=== PATIENT | male | born 1950 | race Caucasian/White ===

== ENCOUNTER 2024-02-15 16:26 | Observation (INO) | payer MEDICARE, SELFPAY ==
[2024-02-15] VITALS (8 sets, daily range): BP systolic 119–138; BP diastolic 56–76; PULSE 70–110; RESP 12–28; TEMP 36.7–36.9; O2SAT 94–100
--- NOTE | ~2024-02-15 | CT_ITS ---
EXAMINATION: CT abdomen pelvis w con DATE: 02/15/2024 20:53 INDICATION: Lower gastrointestinal hemorrhage. TECHNIQUE: Computed tomography (CT) of the abdomen and pelvis was performed with 100 mL Omnipaque 350 intravenous contrast. Automated exposure control and iterative reconstruction technique were employe d. The dose-length product was 1673.99 mGy-cm. COMPARISON: None. FINDINGS: The visualized portions of the lung bases demonstrate mild atelectasis. No pleural effusion . The heart size is normal. No pericardial effusion. There are coronary artery calcifications. There is a small sliding hiatal hernia. Calcifications in the liver and spleen are consistent with old gran ulomatous disease. There are changes of cholecystectomy. The pancreas and adrenal glands are normal. There are cysts in the kidneys measuring up to 7.1 cm on the right. There are changes of ventral frank ia repair. There are no dilated loops of bowel. There is wall thickening of the rectum with intralumi nal contrast. There are prominent blood vessels around the rectum. The appendix is normal. There is a 3.0 x 1.8 cm cyst in the area of the right external iliac ignacia chain. There is trace pelvic ascites . There are changes of anterior and posterior fusion procedures from L4 to S1. There is moderate lumb ar spondylosis. A bone stimulator is noted. IMPRESSION: 1. Proctitis with bleeding internal hemorrhoids. 2. 3.0 x 1.8 cm cyst in the area of the right external iliac lymph node chain. The differential diagn osis includes hematoma, thrombosed aneurysm, and venous malformation. Reviewed, dictated and finalized at location E. IMPRESSION: 1. Proctitis with bleeding internal hemorrhoids. 2. 3.0 x 1.8 cm cyst in the area of the right external iliac lymph node chain. The differential diagnosis includes hematoma, thrombosed aneurysm, and venous m alformation.
--- NOTE | ~2024-02-15 | XR_ITS ---
EXAMINATION: XR chest 2V DATE: 02/15/2024 18:48 INDICATION: Shortness of breath. TECHNIQUE: Frontal and lateral views of the chest were obtained. COMPARISON: None. FINDINGS: Calcified pulmonary nodules and calcified hilar lymph nodes are consistent with old granulo matous disease. There is mild atelectasis in left lower lung zone. No pleural effusion or pneumothora x. The heart size is normal. There are surgical clips in the abdomen. An electronic device overlies t he lower back. IMPRESSION: 1. Mild atelectasis in left lower lung zone. Reviewed, dictated and finalized at location E.
--- NOTE | 2024-02-15 18:20 | ED.RECABL ---
HPI - Recheck/Abnormal Lab/Rx General Chief Complaint: Recheck/Abnormal Lab/Rx <AMARILIS Mayers Last Filed: 02/15/24 18:33> Stated Complaint: ABD LABS. low H&H <AMARILIS Mayers Last Filed: 02/15/24 18:33> Time Seen by Provider: 02/15/24 18:20 <AMARILIS Mayers Last Filed: 02/15/24 18:33> Focused HPI: Patient is a 74 y/o male, with PMH of DVT on Warfarin, who presents to the ED with c/o abnormal labs. Patient reports over the past 2-3 weeks, he has been feeling increasingly weak and short of breath with exertion, intermittent chest tightness. 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 Referred to the ED for further evaluation. Patient reports hx of proctitis and states he has had bright red blood in his stool for past few months. Had a colonoscopy 1 month ago which did not show any masses. Patient also reports hx of urethral dilation [address] Tomas. States he had microscopic blood in his urine at that time. Denies gross hematuria. Denies significant dizziness/lightheadedness, fevers, epistaxis, abd pain, N/V. Patient denies known hx of anemia. Has never required blood transfusions in the past. GENERAL: Pale-appearing, obese with BMI 37.4, and in no acute distress. HEAD: Normocephalic, atraumatic. CHEST: Clear to auscultation. ?No respiratory distress. HEART: Regular rate and rhythm.? NEURO: ?Alert and oriented x3. Patient screened in triage and initial orders placed.? ?Additional care and disposition to be based upon?diagnostic testing and treatment. <AMARILIS Mayers Last Filed: 02/15/24 18:33> Source: patient <AMARILIS Mayers Last Filed: 02/15/24 18:33> Mode of arrival: ambulatory <AMARILIS Mayers Last Filed: 02/15/24 18:33> Limitations: no limitations <AMARILIS Mayers Last Filed: 02/15/24 18:33> Related Data Allergies/Adverse Reactions: Allergies Allergy/AdvReac Type Severity Reaction Status Date / Time amoxicillin Allergy Anaphylactic Verified 02/15/24 16:33 Shock dapagliflozin [From Farxiga] Allergy Rash Verified 02/15/24 16:33 pregabalin [From Lyrica] AdvReac Other Verified 02/15/24 16:33 <AMARILIS Mayers Last Filed: 02/15/24 18:33> Review of Systems Review of Systems: CONST: Fatigue HEENT: No sore throat C/V: Chest tightness with exertion RESP: Shortness of breath with exertion GI: Blood in stool : No dysuria. M/S: No joint pain. SKIN: No rash. NEURO: Lightheadedness PSYCH: [No depression] <Andreia Lima MD - Last Filed: 02/16/24 07:24> Exam Narrative: EXAMINATION OF ORGAN SYSTEMS/BODY AREAS: Constitutional: Vital signs per nursing GENERAL:[No acute distress, non-toxic appearing.] HEAD: Normal with no signs of head trauma. EYES: EOMI, conjunctiva normal ENT: Hearing grossly intact LUNGS: Nonlabored breathing. HEART: Slightly tachycardic ABD: [Soft], [nontender to palpation]; grossly brown stool that is Hemoccult positive EXT: Normal range of motion SKIN: Pale NEURO: [Alert and oriented x 3. No gross focal sensory or strength deficits.] PSYCH: Normal affect <Andreia Lima MD - Last Filed: 02/16/24 07:24> Course Vital Signs Vital signs: Vital Signs Temperature 98.3 F 02/15/24 16:31 Pulse Rate 110 H 02/15/24 16:31 Respiratory Rate 16 02/15/24 16:31 Blood Pressure 126/56 L 02/15/24 16:31 Pulse Oximetry 100 02/15/24 16:31 Temperature 98.1 F 02/16/24 06:54 Pulse Rate 66 02/16/24 06:54 Respiratory Rate 16 02/16/24 06:54 Blood Pressure 130/77 02/16/24 06:54 Pulse Oximetry 100 02/16/24 06:54 <AMARILIS Mayers Last Filed: 02/15/24 18:33> Vital Signs Temperature 98.3 F 02/15/24 16:31 Pulse Rate 110 H 02/15/24 16:31 Respiratory Rate 16 02/15/24 16:31 Blood Pressure 126/56 L 02/15/24 16:31 Pulse Oximet
--- NOTE | 2024-02-15 18:21 | ECG_ITS ---
SEE SCANNED COPY FOR CONFIRMED REPORT MTDD
[2024-02-15 18:44] LABS: Basophils Absolute Auto 0.1 K/mm3 (0.0-0.1); Basophils Percent Auto 1.1 % (0.2-1.2); Eosinophils Absolute Auto 0.2 K/mm3 (0-0.3); Eosinophils Percent Auto 5.3 % (0-4.4); Immature Granulocyte Absolute 0.02 K/mm3 (0.00-0.031); Immature Granulocyte Percent A 0.4 % (0-0.5); Lymphocytes Absolute Auto 1.17 K/mm3 (0.9-3.2); Lymphocytes Percent Auto 25.7 % (18.3-44.2); Mean Corpuscular HGB Conc 28.3 g/dl (32-36); Mean Corpuscular Hemoglobin 24.2 pg (26-34); Mean Corpuscular Volume 85.6 fl (80-100); Mean Platelet Volume 8.8 fl (7.4-10.4); Monocytes Absolute Auto 0.7 K/mm3 (0.1-0.6); Monocytes Percent Auto 14.3 % (2.6-8.5); Neutrophils Absolute Auto 2.4 K/mm3 (1.3-6.7); Neutrophils Percent Auto 53.2 % (45.5-73.1); Nucleated Red Blood Cells Perc 0.7 % (0.0-0.2); Platelet Count Result 327 k/mm3 (150-375); Red Blood Count 2.15 M/mm3 (4.6-6.20); Red Cell Distribution Width 16.6 % (11.5-14.5); White Blood Count 4.6 K/mm3 (4.5-10.0)
[2024-02-15 18:56] LABS: Alanine Aminotransferase 14 U/L (6-50); Alkaline Phosphatase 64 U/L (38-126); Anion Gap 6 mmol/L (4-12); Aspartate Amino Transferase 22 U/L (17-59); Bilirubin,Total 0.3 mg/dL (0.2-1.3); Blood Urea Nitrogen 16 mg/dL (9-20); Carbon Dioxide 24 mmol/L (22-30); Chloride 107 mmol/L (98-107); Estimated CRCL calculation 53 ml/min; Estimated Glomerular Filt Rate 46; Glucose 102 mg/dL (65-110); Potassium 4.2 mmol/L (3.4-5.0); Sodium 137 mmol/L (137-145)
[2024-02-15 19:01] LABS: Prothrombin Time 23.8 Seconds (11.1-14.7)
[2024-02-15 19:02] LABS: Hemoglobin 5.2 g/dL (14.0-18.0); Partial Thromboplastin Time 35.4 Seconds (22.3-36.8)
[2024-02-15 19:03] LABS: Hematocrit 18.4 % (42.0-52.0)
[2024-02-15 19:08] LABS: NT Pro B Type Natriuretic Pept 281 pg/mL (19.9-100); Troponin I < 0.012 ng/mL (0.000-0.034)
[2024-02-15 19:09] LABS: Platelet Estimate Adequate (Adequate); Schistocytes None Seen
[2024-02-15 19:10] LABS: Anisocytosis 2+; Hypochromasia 2+
[2024-02-15 20:02] LABS: Immature Reticulocyte Fraction 23.9 % (3.0-15.9); Reticulocyte Percent 3.17 % (0.7-4.3); Reticulocytes Absolute 0.07 10^6/uL (0.02-0.10)
[2024-02-15 21:06] LABS: Lactate Dehydrogenase 197 U/L (120-246)
[2024-02-15 21:14] LABS: Transferrin 287 mg/dL (206-381)
[2024-02-15 21:24] LABS: Iron 30 ug/dL (49-181)
[2024-02-15] MEDS: SODIUM CHLORIDE 0.9% IV 250 ML 30 ML IV CONT (21:27)
[2024-02-15 21:34] LABS: Percent Iron Saturation 8 % (20-50)
[2024-02-15 22:00] LABS: Ferritin 5.26 ng/mL (11.1-264)
[2024-02-15] MEDS: TUBING, BLOOD PLUM PUMP TUBING 1 EACH XX ×2 (22:02→23:42)
[2024-02-15 22:14] LABS: Folic Acid 7.4 ng/mL (2.76->20)
--- NOTE | 2024-02-15 23:42 | PC.NURSE ---
assumed care of pt from sonu rich at this time. second bag of blood transfusion started at this time. pt resting comfortably in bed at this time.
[2024-02-16] VITALS (18 sets, daily range): BP systolic 110–147; BP diastolic 61–77; PULSE 57–93; RESP 13–22; TEMP 35.6–36.8; O2SAT 95–100; BMI 37.5
[2024-02-16] MEDS: PANTOPRAZOLE SODIUM IV 40 MG VIAL IV PUSH ×2 (00:03→21:10)
--- NOTE | 2024-02-16 03:56 | ED.RECABL ---
HPI - Recheck/Abnormal Lab/Rx General Chief Complaint: Recheck/Abnormal Lab/Rx Stated Complaint: ABD LABS. low H&H Time Seen by Provider: 02/15/24 18:20 Source: patient Mode of arrival: ambulatory Limitations: no limitations History of Present Illness HPI narrative: Patient has noticed some blood in his stools on and off for the last year, constipate was done about a month ago which showed some proctitis and bleeding hemorrhoids, 2 weeks ago he started having increased shortness of breath especially with exertion and generalized weakness and his doctor ordered some blood work and told him to go to the hospital for transfusion. Related Data Allergies Allergy/AdvReac Type Severity Reaction Status Date / Time amoxicillin Allergy Anaphylactic Verified 02/15/24 16:33 Shock dapagliflozin [From Farxiga] Allergy Rash Verified 02/15/24 16:33 pregabalin [From Lyrica] AdvReac Other Verified 02/15/24 16:33 Review of Systems Review of Systems: CONST: No fever. HEENT: No sore throat C/V: No chest pain RESP: No cough GI: Reports abdominal pain, nausea, vomiting[, diarrhea] : No dysuria. M/S: No joint pain. SKIN: No rash. NEURO: [No headache or focal numbness or weakness] PSYCH: [No depression] Course Vital Signs Vital signs: Vital Signs Temperature 98.3 F 02/15/24 16:31 Pulse Rate 110 H 02/15/24 16:31 Respiratory Rate 16 02/15/24 16:31 Blood Pressure 126/56 L 02/15/24 16:31 Pulse Oximetry 100 02/15/24 16:31 Temperature 98.1 F 02/16/24 01:20 Pulse Rate 68 02/16/24 01:20 Respiratory Rate 14 02/16/24 01:20 Blood Pressure 116/73 02/16/24 01:20 Pulse Oximetry 100 02/16/24 01:20 MDM - Recheck/Abnormal Lab/Rx Lab Data 02/15/24 18:36 02/15/24 18:36 Labs: Lab Results 02/15/24 02/15/24 02/15/24 Range/Units 18:36 18:36 18:36 WBC 4.6 (4.5-10.0) K/mm3 RBC 2.15 L (4.6-6.20) M/mm3 Hgb 5.2 L* (14.0-18.0) g/dL Hct 18.4 L* (42.0-52.0) % MCV 85.6 (80-100) fl MCH 24.2 L (26-34) pg MCHC 28.3 L (32-36) g/dl RDW 16.6 H (11.5-14.5) % Plt Count 327 (150-375) k/mm3 MPV 8.8 (7.4-10.4) fl Immature Gran % (Auto) 0.4 (0-0.5) % Neut % (Auto) 53.2 (45.5-73.1) % Lymph % (Auto) 25.7 (18.3-44.2) % Shannon % (Auto) 14.3 H (2.6-8.5) % Eos % (Auto) 5.3 H (0-4.4) % Baso % (Auto) 1.1 (0.2-1.2) % Lymph # (Auto) 1.17 (0.9-3.2) K/mm3 Shannon # (Auto) 0.7 H (0.1-0.6) K/mm3 Eos # (Auto) 0.2 (0-0.3) K/mm3 Baso # (Auto) 0.1 (0.0-0.1) K/mm3 Abs Immat Gran (auto) 0.02 (0.00-0.031) K/mm3 Absolute Neuts (auto) 2.4 (1.3-6.7) K/mm3 Absolute Nucleated RBC 0.030 H (0.0-0.012) K/mm3 Nucleated RBC % 0.7 H (0.0-0.2) % Platelet Estimate Adequate (Adequate) Hypochromasia 2+ Anisocytosis 2+ Schistocytes None seen Absolute Retic (0.02-0.10) 10^6/uL Percent Retic (0.7-4.3) % Immature Retic Fraction (3.0-15.9) % Retic Hgb Content (28.2-36.6) pg Haptoglobin PT 23.8 H (11.1-14.7) Seconds INR 2.0 APTT 35.4 (22.3-36.8) Seconds Sodium Cancelled 137 Potassium Cancelled 4.2 Chloride Cancelled Carbon Dioxide Anion Gap BUN Creatinine Estim Creat Clear Calc Estimated GFR Glucose Calcium Iron (49-181) ug/dL TIBC (265-497) ug/dL % Saturation (20-50) % Transferrin (206-381) mg/dL Ferritin (11.1-264) ng/mL Total Bilirubin AST ALT Alkaline Phosphatase Lactate Dehydrogenase (120-246) U/L Troponin I (0.000-0.034) ng/mL NT-Pro-B Natriuret Pep (19.9-100) pg/mL Total Protein Albumin Vitamin B12 (239-931) pg/mL Folate (2.76->20) ng/mL TSH (Reflex) (0.465-4.68) uIU/mL Blood Type Antibody Screen RAMA, IgG Interpret RAMA, Poly Interpret RAMA, Complement Interp Cross
[2024-02-16 04:14] LABS: Hematocrit 21.9 % (42.0-52.0)
[2024-02-16 04:16] LABS: Hemoglobin 6.7 g/dL (14.0-18.0)
[2024-02-16] MEDS: SODIUM CHLORIDE 0.9% IV 250 ML 30 ML IV CONT (05:36)
[2024-02-16] MEDS: TUBING, BLOOD SET 1 EACH XX (05:36)
--- NOTE | 2024-02-16 07:12 | PC.NURSE ---
report given to WILBER Gray at this time. pt resting comfortably in bed w call light within reach.
--- NOTE | 2024-02-16 08:45 | PC.NURSE ---
This patient, Marshall Olson, was admitted to [facility] Surg Room 314-01. Patient/family oriented to hospital policies and general routines including ID bracelet, bed and alarms, visiting hours, pain management, procedures, bathroom and other care routines, personal items, smoking policy, room service/diet, and visiting hours. Information on how to activate the Rapid Response Team has been discussed. Patient/Family are encouraged to report perceived risks to care and to ask questions if they do not understand what they are told or what they should do.
--- NOTE | 2024-02-16 09:16 | P.CONGI_ITS ---
I, Saw Aparicio MD, have provided a substantive portion of the care of this patient and discussed the patient with my Nurse Practitioner. I have reviewed any new relevant radiographic and laboratory results including medications. I agree with her documentation as noted below.?I personally performed the medical decision making and much of the history and exam for this encounter. briefly he had prostate cancer s/p radiation therapy, also DVT on coumadin for years. About 1 month ago at [place] had colonoscopy and found to have radiation proctitis (patient could not tell me if treated with APC), he was sent home with mesalamine. Just recently his high speed warper tender obtained blood work that showed severe anemia and admitted, given transfusion and better now. INR 2 because of coumadin, he has intermittent blood in stools, brbpr. Plan is to monitor for more signs of bleeding, no need to repeat scope right now but I recommend to follow up with his GI doctor and discuss if he may benefit from sigmoidoscopy with APC to treat proctitis- ideally his INR will need to be below 1.7. Assessment and Plan Assessment and plan (1) Abnormal digestive system diagnostic imaging: Code(s): R93.3 - Abnormal findings on diagnostic imaging of other parts of digestive tract Status: Acute (2) Iron deficiency anemia: Qualifiers: Iron deficiency anemia type: unspecified iron deficiency Qualified Code(s): D50.9 - Iron deficiency anemia, unspecified Code(s): D50.9 - Iron deficiency anemia, unspecified Status: Acute (3) Radiation proctitis: Code(s): K62.7 - Radiation proctitis Status: Acute (4) Hematochezia: Code(s): K92.1 - Melena Status: Acute Plan 1) Abnormal imaging digestive/radiation proctitis / diarrhea /hematochezia: Last colonoscopy approximately 1 month ago performed in [place] which time he was diagnosed with radiation proctitis and started on sulfasalazine 500 mg t.i.d. which he has been taking for less than a month but has noticed no improvement of symptoms. Family history negative for CRC or IBD. Prior to admission patient was on warfarin and aspirin 81 mg For history of DVT. For the past few months the patient has been experiencing diarrhea with 2-3 bowel movements daily that vary from formed to liquid. Admits to painless rectal bleeding 2-3 times a week. last BM this morning he states contain blood. Per patient he had what sounds like a partial prostatectomy in 2013 an than 2 years ago was noted to have rising PSA levels and underwent radiation treatment. * Mesalamine enema ordered * No indication for endoscopic evaluation at this time * Patient to follow up with primary preparing box tender in [place] as outpatient 2) Iron deficiency anemia: Likely secondary to acute blood loss. On admission HGB 5. Iron panel showed total iron 30, TIBC 367, iron saturation 8%, ferritin 5, B12 224, and normal folate. INR 2.0. Prior to admission patient was on warfarin and aspirin 81 mg daily. Patient has received 3 units of PRBCs and labs today show HGB 7, HCT 22, MCV 86, platelets 327. * Primary care team to continue to monitoring H&H and transfuse as needed to keep HGB >7 GI Consult Note Consult date/time: 02/16/24 09:16 Reason for consult: LGIB. proctitis and hemorrhoids HPI: Marshall Olson is a 74 year old male with a history of DVT on warfarin who presented to the emergency room for abnormal outpatient labs. GI consulted for lower GI bleed, proctitis, and internal hemorrhoids. Patient had outpatient lab work ordered by his high speed warper tender and was contacted by his PCP to advise him that he was
--- NOTE | 2024-02-16 09:16 | WPDGICN ---
Assessment and Plan Assessment and plan (1) Abnormal digestive system diagnostic imaging: Code(s): R93.3 - Abnormal findings on diagnostic imaging of other parts of digestive tract Status: Acute (2) Iron deficiency anemia: Qualifiers: Iron deficiency anemia type: unspecified iron deficiency Qualified Code(s): D50.9 - Iron deficiency anemia, unspecified Code(s): D50.9 - Iron deficiency anemia, unspecified Status: Acute (3) Radiation proctitis: Code(s): K62.7 - Radiation proctitis Status: Acute (4) Hematochezia: Code(s): K92.1 - Melena Status: Acute Plan 1) Abnormal imaging digestive/radiation proctitis / diarrhea /hematochezia: Last colonoscopy approximately 1 month ago performed in [place] which time he was diagnosed with radiation proctitis and started on sulfasalazine 500 mg t.i.d. which he has been taking for less than a month but has noticed no improvement of symptoms. Family history negative for CRC or IBD. Prior to admission patient was on warfarin and aspirin 81 mg For history of DVT. For the past few months the patient has been experiencing diarrhea with 2-3 bowel movements daily that vary from formed to liquid. Admits to painless rectal bleeding 2-3 times a week. last BM this morning he states contain blood. Per patient he had what sounds like a partial prostatectomy in 2012 an than 2 years ago was noted to have rising PSA levels and underwent radiation treatment. Mesalamine enema ordered No indication for endoscopic evaluation at this time Patient to follow up with primary title i coordinator in [place] as outpatient 2) Iron deficiency anemia: Likely secondary to acute blood loss. On admission HGB 5. Iron panel showed total iron 30, TIBC 367, iron saturation 8%, ferritin 5, B12 224, and normal folate. INR 2.0. Prior to admission patient was on warfarin and aspirin 81 mg daily. Patient has received 3 units of PRBCs and labs today show HGB 7, HCT 22, MCV 86, platelets 327. Primary care team to continue to monitoring H&H and transfuse as needed to keep HGB >7 GI Consult Note Consult date/time: 02/16/24 09:16 Reason for consult: LGIB. proctitis and hemorrhoids HPI: Marshall Olson is a 74 year old male with a history of DVT on warfarin who presented to the emergency room for abnormal outpatient labs. GI consulted for lower GI bleed, proctitis, and internal hemorrhoids. Patient had outpatient lab work ordered by his distribution technician and was contacted by his PCP to advise him that he was severely anemic and was advised to proceed to the emergency room for evaluation.On admission patient was found to be severely anemic with Hgb 5. Patient has received 3 units PRBCs and labs today show H&H 05/23. Patient had a colonoscopy performed approximately a month ago in [place] and was diagnosed with radiation proctitis and started on sulfasalazine 500 mg t.i.d. which he has been taking for less than a month and has noticed no improvement of symptoms. A few weeks ago the patient had a urethral dilation and states that his warfarin was held prior to that procedure. he was taking warfarin and aspirin prior to admission. The patient admits to intermittent reflux in the evening but states that is well controlled with p.r.n. Tums. He has been experiencing diarrhea for the past few months and states that he is having 2-3 loose to liquid bowel movements per day that are not urgent. To 3 times a week is having painless bright red rectal bleeding. Last BM was this morning and patient admits to blood in the stool. He denies abdominal pain, nausea, vomiting, bloating, odynophagia, dysphagia, regurgitation, early satiety, unexplained weight loss, appetite loss, constipation, or melena. ENDOSCOPY HISTORY: EGD: The patient has never had an EGD COLONOSCOPY: Last colonoscopy performed in [place] approximately 1 m
--- NOTE | 2024-02-16 14:11 | PM.IMHP ---
H&P: HPI History of Present Illness Date/Time: 02/16/24 14:11 Chief Complaint: Low Hgb Narrative: 74yo male with COPD, CAD, AFib s/p ablation and PE/DVT on chronic anticoagulation here for low Hgb. Patient also with prostate cancer treated with prostatectomy in 2012 with recurrence in 2021 requiring XRT and hormonal therapy. About 6mo ago, he began to have hematochezia with diarrhea and mucus. No stool incontinence. He did have a colonoscopy about 1 month ago which showed polyps which were removed, diverticulosis and radiation proctitis. He was started on sulfasalazine. He has been noted to be anemic. He is scheduled to see a solar energy systems designer in the next 1-2 weeks for this. He was on Eliquis in the past for veno thromboembolic disease but developed a pulmonary embolism on Eliquis so now is on warfarin. Patient was seen by his urologist a few weeks ago was found to have hematuria. He underwent cystoscopy but had urethral stricture requiring dilation. He is not sure there is any significant findings noted in the bladder. He denies any dysuria or hematuria at this time. Patient has been feeling weak over the past 2-3 weeks. He has been having headaches and shortness of breath with exertion. No abdominal pain or cough. No nausea or vomiting. He has had heartburn for the past week. Symptoms are worse at night and he takes Tums with benefit. He denies any chest pain initially but does state he does have some chest tightness on occasion. He was seen by his forensic engineer for the worsening weakness and SOB. Lab work was drawn which showed significant anemia. He was directed to go to the emergency room for evaluation. In the Emergency room, his pulse was 110. Blood pressure was normal. He was guaiac positive in ED. Hemoglobin was 5.2. Normal platelet count and white count. MCV was normal. Reticulocyte count was normal but have increased immature reticulocyte fraction of 24%. INR was 2.0. Creatinine was 1.5 but unclear on baseline. Iron was 30 with normal TIBC and TSAT of 8%. His ferritin was low at 5.3 consistent with iron deficiency. B12 level was low 224. Troponin x1 negative. TSH was normal. Folate was normal. Chest x-ray showed mild atelectasis in left lower lobe. CT of the abdomen and pelvis with contrast showed proctitis with bleeding internal hemorrhoids and a 3 cm cyst in the right external iliac lymph node chain with differential listed. EKG showed voltage criteria for LVH otherwise normal. Divina is negative. He was typed and crossed and transfused 3 units of packed red blood cells. GI was consulted. Patient was given Protonix in the emergency room. Rectal mesalamine was started. He was admitted for further care. Review of Systems Review of Systems: All systems reviewed & are unremarkable except as noted in HPI and below PMFSH Past Medical History Medical History (Updated 02/16/24 @ 19:21 by Rock Kaminski MD) Atrial fibrillation s/p ablation CAD (coronary artery disease) GA in 2019 but no stents CHF (congestive heart failure) COPD (chronic obstructive pulmonary disease) DVT (deep venous thrombosis) HTN (hypertension), benign Hyperlipidemia Peripheral neuropathy Prostate cancer Pulmonary embolism Failed Eliquis therapy Radiation proctitis Surgical History Surgical History (Updated 02/16/24 @ 19:15 by Rock Kaminski MD) Hx of cataract surgery Hx of cervical spine surgery Hx of cholecystectomy Hx of lumbosacral spine surgery Hx of prostatectomy Family History Family History (Updated 02/16/24 @ 19:16 by Rock Kaminski MD) Mother Breast cancer Father Pancreatic cancer Social History Social History (Updated 02/16/24 @ 19:17 by Rock Kaminski MD) Social History: Lives at home with his , GS and GD. Quit tobacco in 2019 after smoking up to 2ppd x 40yrs. No alcohol currently. Hx of charmaine abuse including cocaine, amphetamines, heroine and IVDU. Full code. Nominates his to be the
[2024-02-16 17:32] LABS: Hematocrit 25.1 % (42.0-52.0); Hemoglobin 7.8 g/dL (14.0-18.0)
[2024-02-16] MEDS: CYANOCOBALAMIN INJ 1,000 MCG/ML VIAL 1000 MCG IM (21:10)
[2024-02-16] MEDS: MESALAMINE ENEMA 4 GM/60 ML BOTTLE RECTAL (21:11)
[2024-02-16 23:32] LABS: Hematocrit 27.4 % (42.0-52.0); Hemoglobin 8.4 g/dL (14.0-18.0)
[2024-02-17 06:00] VITALS: BP 113/75; PULSE 65; RESP 20; TEMP 36.1; O2SAT 99
[2024-02-17 06:37] LABS: Basophils Absolute Auto 0.1 K/mm3 (0.0-0.1); Eosinophils Absolute Auto 0.4 K/mm3 (0-0.3); Hematocrit 26.2 % (42.0-52.0); Hemoglobin 7.9 g/dL (14.0-18.0); Immature Granulocyte Absolute 0.03 K/mm3 (0.00-0.031); Immature Granulocyte Percent A 0.6 % (0-0.5); Lymphocytes Absolute Auto 0.94 K/mm3 (0.9-3.2); Lymphocytes Percent Auto 17.9 % (18.3-44.2); Mean Corpuscular HGB Conc 30.2 g/dl (32-36); Mean Corpuscular Hemoglobin 26.6 pg (26-34); Mean Corpuscular Volume 88.2 fl (80-100); Mean Platelet Volume 8.9 fl (7.4-10.4); Monocytes Absolute Auto 0.7 K/mm3 (0.1-0.6); Monocytes Percent Auto 13.9 % (2.6-8.5); Neutrophils Absolute Auto 3.1 K/mm3 (1.3-6.7); Neutrophils Percent Auto 59.6 % (45.5-73.1); Nucleated Red Blood Cells Perc 0.4 % (0.0-0.2); Platelet Count Result 255 k/mm3 (150-375); Red Blood Count 2.97 M/mm3 (4.6-6.20); Red Cell Distribution Width 16.1 % (11.5-14.5); White Blood Count 5.3 K/mm3 (4.5-10.0)
[2024-02-17 06:42] LABS: Albumin Level 3.3 g/dL (3.5-5.1); Anion Gap 2 mmol/L (4-12); Blood Urea Nitrogen 11 mg/dL (9-20); Calcium 8.3 mg/dL (8.4-10.2); Carbon Dioxide 23 mmol/L (22-30); Chloride 111 mmol/L (98-107); Estimated CRCL calculation 53 ml/min; Estimated Glomerular Filt Rate 46; Glucose 92 mg/dL (65-110); Magnesium 2.4 mg/dL (1.6-2.3); Phosphorus 2.6 mg/dL (2.5-4.5); Potassium 4.6 mmol/L (3.4-5.0); Sodium 136 mmol/L (137-145)
[2024-02-17] MEDS: CYANOCOBALAMIN 1,000 MCG TABLET 1000 MCG PO (09:17)
[2024-02-17] MEDS: PANTOPRAZOLE SODIUM IV 40 MG VIAL IV PUSH ×2 (09:19→21:48)
[2024-02-17 10:33] LABS: Haptoglobin 165 mg/dL (43-212)
[2024-02-17 14:00] VITALS: BP 140/62; PULSE 51; RESP 18; TEMP 36.2; O2SAT 95
--- NOTE | 2024-02-17 14:18 | PM.IMPN ---
Progress Note: A&P Assessment and Plan (1) Iron deficiency anemia: Qualifiers: Iron deficiency anemia type: unspecified iron deficiency Qualified Code(s): D50.9 - Iron deficiency anemia, unspecified Code(s): D50.9 - Iron deficiency anemia, unspecified Status: Acute Assessment and Plan: Patient presents after discovering low Hgb on outpatient lab work. Patient was symptomatic with weakness, SOB, CORBIN and chest tightness. Hgb 5.2 with iron and B12 deficiency. Related to acute blood loss anemia from the hematochezia. Patient transfused 3U of PRBCs and repeat hgb 7.8 Hb is 7.9 today continue B12, ferous sulphate and iv protonix What hb levels if stable plan to dc in 1-2 days time . (2) Radiation proctitis: Code(s): K62.7 - Radiation proctitis Status: Acute Assessment and Plan: Patient had XRT about 2 years ago but has developed symptomatic radiation proctitis about [address] shows bleeding hemorrhoids but suspect this is the proctitis. GI consulted and appreciate their input. Rectal mesalamine to try to control the bleeding. May need ablation if continues to ooze (3) Hematochezia: Code(s): K92.1 - Melena Status: Acute Assessment and Plan: Related to the radiation proctitis (4) B12 deficiency anemia: Code(s): D51.9 - Vitamin B12 deficiency anemia, unspecified Status: Acute Assessment and Plan: Pt started on b12 tablets (5) Atrial fibrillation: Code(s): I48.91 - Unspecified atrial fibrillation Status: Acute Assessment and Plan: Patient with a hx of AFib s/p ablation. EKG showing NSR (6) HTN (hypertension), benign: Code(s): I10 - Essential (primary) hypertension Status: Acute Assessment and Plan: BP has been well controlled since admission. Restart home Bp meds Plan DVT prophylaxis - SCDs Code status - full Subjective Date/time seen: 02/17/24 14:19 Interval history: 74yo male with COPD, CAD, AFib s/p ablation and PE/DVT on chronic anticoagulation here for low Hgb. Patient also with prostate cancer treated with prostatectomy in 2012 with recurrence in 2021 requiring XRT and hormonal therapy. About 6mo ago, he began to have hematochezia with diarrhea and mucus.? No stool incontinence.? He did have a colonoscopy about 1 month ago which showed polyps which were removed, diverticulosis and radiation proctitis.? He was started on sulfasalazine. He has been noted to be anemic.? As per GI MD here pt had prostate cancer s/p radiation therapy, also DVT on coumadin for years. About 1 month ago at [place] had colonoscopy and found to have radiation proctitis (patient could not tell me if treated with APC), he was sent home with mesalamine. Just recently his fisher lampara net obtained blood work that showed severe anemia and admitted, given transfusion and better now. INR 2 because of coumadin, he has intermittent blood in stools, brbpr. Review of Systems Review of Systems: Pt still having some blood in his stools Exam Narrative: Pt appears pale in color but alert talkative Chest - lungs are clear to auscultation bilaterally. No wheezes or crackles. CV - heart was regular rate and rhythm with occasional extra beat. S1-S2. No murmurs gallops or rubs. Abd - abdomen was soft. Nontender. Nondistended. Positive bowel sounds. No organomegaly or masses. Ext - no clubbing or cyanosis. Trace pitting and non pitting LE edema. 2+ DP pulses bilaterally. Neuro - patient is alert and oriented x4. Strength is 5/5 in both upper and lower extremities. Cranial nerves 2-12 are intact. Speech is clear. Psych - normal mood and affect. Patient is pleasant and cooperative. Skin - Generalized weakness Objective Data Vital Signs Vital Signs: Vital Signs - 24 hr 02/16/24 21:03 02/16/24 20:00 02/17/24 06:00 Temperature 36.6 C 36.1 C L Pulse Rate 57 L 65 Res
--- NOTE | 2024-02-17 15:24 | WPDGIPROGNO ---
Progress Note: A&P Assessment and Plan (1) Radiation proctitis: Code(s): K62.7 - Radiation proctitis Status: Acute Assessment and Plan: cause of hematochezia hgb stable, coumadin on hold will need follow-up with his GI doctor and then can decide if may need sigmoidoscopy with APC of proctitis once inr is improved (2) Hematochezia: Code(s): K92.1 - Melena Status: Acute (3) Acute on chronic anemia: Code(s): D64.9 - Anemia, unspecified Status: Acute Assessment and Plan: stable (4) Chronic anticoagulation: Code(s): Z79.01 - FDC (current) use of anticoagulants Status: Acute (5) Atrial fibrillation: Code(s): I48.91 - Unspecified atrial fibrillation Status: Acute Subjective Date/time seen: 02/17/24 15:24 Interval history: had normal brown stool with tinge of blood Review of Systems Review of Systems: All systems reviewed & are unremarkable except as noted in HPI and below Exam Const: General: comfortable HENMT: Face/Nose/Sinus: Normal nares present Eyes: General: appearance normal, both eyes and all related structures Sclera: sclerae normal Neck: Neck: supple Resp: Effort & Inspection: normal respiratory effort Auscultation: clear to auscultation bilaterally Cardio: Rate: regular rate Rhythm: regular rhythm GI: GI Palp: Yes Soft to palpation, No Tenderness to palpation present (GI) and No Guarding due to palpation present (GI) Auscultation: normal bowel sounds : General: Yes bladder normal to palpation Skin: General skin exam: normal color Neuro: Speech: normal speech Motor exam (neuro): 5/5 motor strength present throughout Extrem: General: normal to inspection Psych: Mental Status: mental status grossly normal Affect: normal affect Objective Data Vital Signs Vital Signs: Vital Signs - 24 hr 02/16/24 21:03 02/16/24 20:00 02/17/24 06:00 Temperature 97.9 F 97.0 F L Pulse Rate 57 L 65 Respiratory Rate 20 20 Blood Pressure 118/73 113/75 Pulse Oximetry 98 98 99 Oxygen Delivery Room Air 02/17/24 08:00 02/17/24 14:00 Temperature 97.1 F L Pulse Rate 51 L Respiratory Rate 18 Blood Pressure 140/62 Pulse Oximetry 95 Oxygen Delivery Room Air Intake/Output Intake/Output: Intake & Output 02/14/24 02/15/24 02/16/24 02/17/24 23:59 23:59 23:59 23:59 Intake Total 367.5 1662.5 840 Balance 367.5 1662.5 840 Meds/Results Medications: Active Medications Generic Name Dose Route Start Last Admin Trade Name Freq PRN Reason Stop Dose Admin Albuterol 2 puff 02/17/24 14:26 Albuterol Sulfate (*Sp) Aerosol 1 Puff INHALATION Q4-6H PRN Shortness Of Breath Or Wheezing Atorvastatin Calcium 10 mg 02/18/24 09:00 Atorvastatin 10 Mg Tablet PO DAILY TIMI Cyanocobalamin 1,000 mcg 02/17/24 09:00 02/17/24 09:17 Cyanocobalamin 1,000 Mcg Tablet PO 1,000 mcg QAM TIMI Administration Ferrous Sulfate 325 mg 02/17/24 17:00 Ferrous Sulfate [address] PO BID TIMI Gabapentin 100 mg 02/17/24 17:00 Gabapentin 100 Mg Capsule PO TID TIMI Mesalamine 4 gm 02/16/24 21:00 02/16/24 21:11 Mesalamine Enema 4 Gm/60 Ml Bottle RECTAL 4 gm HS TIMI Administration Miscellaneous Information 1 each 02/17/24 00:01 Nystatin Ointment Ordered Prn [facility] . Which Is It? Prn Or Scheduled? Please Clarify Frequ XX 03/18/24 00:00 CLARIFY TIMI Nystatin 1 applic 02/17/24 14:30 Nystatin Ointment 15 Gm Tube TOPICAL PRN TIMI Pantoprazole Sodium 40 mg 02/16/24 21:00 02/17/24 09:19 Pantoprazole Sodium Iv 40 Mg Vial IV PUSH 40 mg Q12HR TIMI Administration Solifenacin 5 mg 02/18/24 09:00 Solifenacin 5 Mg Tablet PO DAILY TIMI Sulfasalazine 500 mg 02/17/24 17:30 Sulfasalazine 500 Mg Tablet PO [facility] Radiology Results: ITS Impressions Chest X-Ray 02/15/24 19:04 IMPRESSION: 1. Mild atelectasis in
[2024-02-17] MEDS: FERROUS SULFATE 325 MG TABLET DR PO (17:13)
[2024-02-17] MEDS: GABAPENTIN 100 MG CAPSULE PO (17:13)
[2024-02-17] MEDS: sulfaSALAzine 500 MG TABLET PO (17:13)
[2024-02-17 20:00] VITALS: O2SAT 95
[2024-02-17] MEDS: MESALAMINE ENEMA 4 GM/60 ML BOTTLE RECTAL (21:49)
[2024-02-17 22:00] VITALS: BP 115/50; PULSE 83; RESP 16; TEMP 36.8; O2SAT 98
[2024-02-18 05:12] VITALS: BP 116/40; PULSE 68; RESP 16; TEMP 36.7; O2SAT 99
[2024-02-18 06:37] LABS: Hematocrit 27.6 % (42.0-52.0); Hemoglobin 8.3 g/dL (14.0-18.0); Mean Corpuscular HGB Conc 30.1 g/dl (32-36); Mean Corpuscular Hemoglobin 26.5 pg (26-34); Mean Corpuscular Volume 88.2 fl (80-100); Platelet Count Result 270 k/mm3 (150-375); Red Blood Count 3.13 M/mm3 (4.6-6.20); Red Cell Distribution Width 16.7 % (11.5-14.5); White Blood Count 7.2 K/mm3 (4.5-10.0)
[2024-02-18 07:27] LABS: Anion Gap 6 mmol/L (4-12); Blood Urea Nitrogen 13 mg/dL (9-20); Calcium 8.7 mg/dL (8.4-10.2); Carbon Dioxide 21 mmol/L (22-30); Chloride 111 mmol/L (98-107); Estimated CRCL calculation 45 ml/min; Estimated Glomerular Filt Rate 37; Glucose 103 mg/dL (65-110); Potassium 4.3 mmol/L (3.4-5.0); Sodium 138 mmol/L (137-145)
[2024-02-18 08:25] VITALS: O2SAT 98
[2024-02-18] MEDS: FERROUS SULFATE 325 MG TABLET DR PO (08:27)
[2024-02-18] MEDS: CYANOCOBALAMIN 1,000 MCG TABLET 1000 MCG PO (08:27)
[2024-02-18] MEDS: ATORVASTATIN 10 MG TABLET PO (08:27)
[2024-02-18] MEDS: GABAPENTIN 100 MG CAPSULE PO (08:27)
[2024-02-18] MEDS: SOLIFENACIN 5 MG TABLET PO (08:27)
[2024-02-18 08:28] VITALS: PULSE 51; O2SAT 97
[2024-02-18] MEDS: PANTOPRAZOLE SODIUM IV 40 MG VIAL IV PUSH (08:28)
[2024-02-18] MEDS: ACETAMINOPHEN 325 MG TABLET 650 MG PO (10:20)
[2024-02-18] MEDS: sulfaSALAzine 500 MG TABLET PO (10:20)
--- NOTE | 2024-02-18 12:22 | PM.DS ---
DS: Admitting Diagnosis Discharge Date 02/18/2024 Admitting Diagnosis Low Hgb DS: Discharge Diagnosis Discharge Diagnosis (1) Iron deficiency anemia: Qualifiers: Iron deficiency anemia type: unspecified iron deficiency Qualified Code(s): D50.9 - Iron deficiency anemia, unspecified Code(s): D50.9 - Iron deficiency anemia, unspecified Status: Acute Assessment and Plan: Patient presents after discovering low Hgb on outpatient lab work. Patient was symptomatic with weakness, SOB, CORBIN and chest tightness. Hgb 5.2 with iron and B12 deficiency. Related to acute blood loss anemia from the hematochezia. Patient transfused 3U of PRBCs and repeat hgb 7.8 Hb is 7.9 today continue B12, ferous sulphate and iv protonix Hb level are stable ok to DC today . (2) Radiation proctitis: Code(s): K62.7 - Radiation proctitis Status: Acute Assessment and Plan: Patient had XRT about 2 years ago but has developed symptomatic radiation proctitis about [address] shows bleeding hemorrhoids but suspect this is the proctitis. GI consulted and appreciate their input. Can restart pts own medications and DC today (3) Hematochezia: Code(s): K92.1 - Melena Status: Acute Assessment and Plan: Related to the radiation proctitis (4) B12 deficiency anemia: Code(s): D51.9 - Vitamin B12 deficiency anemia, unspecified Status: Acute Assessment and Plan: Pt started on b12 tablets (5) Atrial fibrillation: Code(s): I48.91 - Unspecified atrial fibrillation Status: Acute Assessment and Plan: Patient with a hx of AFib s/p ablation. EKG showing NSR (6) HTN (hypertension), benign: Code(s): I10 - Essential (primary) hypertension Status: Acute Assessment and Plan: BP has been well controlled since admission. Restart home Bp meds DS: Summary Hospital Course Hospital Course: 74yo male with COPD, CAD, AFib s/p ablation and PE/DVT on chronic anticoagulation here for low Hgb. Patient also with prostate cancer treated with prostatectomy in 2012 with recurrence in 2021 requiring XRT and hormonal therapy. About 6mo ago, he began to have hematochezia with diarrhea and mucus.? No stool incontinence.? He did have a colonoscopy about 1 month ago which showed polyps which were removed, diverticulosis and radiation proctitis.? He was started on sulfasalazine. He has been noted to be anemic.? As per GI MD here pt had prostate cancer s/p radiation therapy, also DVT on coumadin for years. About 1 month ago at [place] had colonoscopy and found to have radiation proctitis (patient could not tell me if treated with APC), he was sent home with mesalamine. Just recently his barber tool sharpener obtained blood work that showed severe anemia and admitted, given transfusion and better now. INR 2 because of coumadin, he has intermittent blood in stools, brbpr. Patient presents after discovering low Hgb on outpatient lab work. Patient was symptomatic with weakness, SOB, CORBIN and chest tightness. Hgb 5.2 with iron and B12 deficiency. Related to acute blood loss anemia from the hematochezia. Patient transfused 3U of PRBCs and repeat hgb 7.8 Hb is 7.9 today continue B12, ferous sulphate and iv protonix per GI watch hb if stable can dc home Pt had recent scope he had prostate cancer s/p radiation therapy, also DVT on coumadin for years. About 1 month ago at [place] had colonoscopy and found to have radiation proctitis (patient could not tell me if treated with APC), he was sent home with mesalamine. Just recently his barber tool sharpener obtained blood work that showed severe anemia and admitted, given transfusion and better now. INR 2 because of coumadin, he has intermittent blood in stools, brbpr. Plan is to monitor for more signs of bleeding, no need to repeat scope right now but I recommend to follow up with his GI doctor and discuss if he may benefi
[2024-02-18 13:00] LABS: INR 1.6; Prothrombin Time 20.1 Seconds (11.1-14.7)
[2024-02-18 13:55] VITALS: BP 115/65; PULSE 68; RESP 16; TEMP 36.1; O2SAT 98
--- NOTE | 2024-02-18 14:19 | WPDGIPROGNO ---
Progress Note: A&P Assessment and Plan (1) Radiation proctitis: Code(s): K62.7 - Radiation proctitis Status: Acute Assessment and Plan: cause of hematochezia topical mesalamine hgb stable after blood transfusion, coumadin on hold will need follow-up with his GI doctor and then can decide if may need sigmoidoscopy with APC of proctitis if continues to have more hematochezia (2) Hematochezia: Code(s): K92.1 - Melena Status: Acute (3) Acute on chronic anemia: Code(s): D64.9 - Anemia, unspecified Status: Acute Assessment and Plan: stable (4) Chronic anticoagulation: Code(s): Z79.01 - assisted (current) use of anticoagulants Status: Acute (5) Atrial fibrillation: Code(s): I48.91 - Unspecified atrial fibrillation Status: Acute Subjective Date/time seen: 02/18/24 13:00 Interval history: no changes, he is going home Review of Systems Review of Systems: All systems reviewed & are unremarkable except as noted in HPI and below Exam Const: General: comfortable HENMT: Face/Nose/Sinus: Normal nares present Eyes: General: appearance normal, both eyes and all related structures Sclera: sclerae normal Neck: Neck: supple Resp: Effort & Inspection: normal respiratory effort Auscultation: clear to auscultation bilaterally Cardio: Rate: regular rate Rhythm: regular rhythm GI: GI Palp: Yes Soft to palpation, No Tenderness to palpation present (GI) and No Guarding due to palpation present (GI) Auscultation: normal bowel sounds : General: Yes bladder normal to palpation Skin: General skin exam: normal color Neuro: Speech: normal speech Motor exam (neuro): 5/5 motor strength present throughout Extrem: General: normal to inspection Psych: Mental Status: mental status grossly normal Affect: normal affect Objective Data Vital Signs Vital Signs: Vital Signs - 24 hr 02/17/24 20:00 02/17/24 22:00 02/18/24 05:12 Temperature 98.2 F 98.1 F Pulse Rate 83 68 Respiratory Rate 16 16 Blood Pressure 115/50 L 116/40 L Pulse Oximetry 95 98 99 Oxygen Delivery Room Air Fraction of Inspired Oxygen 02/18/24 08:25 02/18/24 13:55 02/18/24 08:28 Temperature 97.0 F L Pulse Rate 68 51 L Respiratory Rate 16 Blood Pressure 115/65 Pulse Oximetry 98 98 97 Oxygen Delivery Room Air Room Air Fraction of Inspired Oxygen 21 Intake/Output Intake/Output: Intake & Output 02/15/24 02/16/24 02/17/24 02/18/24 23:59 23:59 23:59 23:59 Intake Total 367.5 1662.5 1540 1070 Balance 367.5 1662.5 1540 1070 Meds/Results Radiology Results: ITS Impressions Chest X-Ray 02/15/24 19:04 IMPRESSION: 1. Mild atelectasis in left lower lung zone. Abdomen/Pelvis CT 02/15/24 20:54 IMPRESSION: 1. Proctitis with bleeding internal hemorrhoids. 2. 3.0 x 1.8 cm cyst in the area of the right external iliac lymph node chain. The differential diagnosis includes hematoma, thrombosed aneurysm, and venous malformation. Labs Labs: Laboratory Results - last 24 hr 02/18/24 02/18/24 06:17 12:31 WBC 7.2 RBC 3.13 L Hgb 8.3 L Hct 27.6 L MCV 88.2 MCH 26.5 MCHC 30.1 L RDW 16.7 H Plt Count 270 MPV 9.0 PT 20.1 H INR 1.6 Sodium 138 Potassium 4.3 Chloride 111 H Carbon Dioxide 21 L Anion Gap 6 BUN 13 Creatinine 1.80 H Estim Creat Clear Calc 45 Estimated GFR 37 L Glucose 103 Calcium 8.7 Amg Follow-up Billing Hospital Follow-up Hospital Follow-up: [id number] Subs Hosp Care Mod
== END 2024-02-18 13:55 | disposition home or self-care (01) ==
LOC: ANHED 02-16 07:24 → ANH3MEDSUR 02-16 08:28
PROVIDERS: Emergency Medicine; Internal Medicine; Physician Assistant; Admitting Provider General Practice; Emergency Provider Emergency Medicine; PCP Internal Medicine; Visit Provider Family Medicine
DX: D50.9 Iron deficiency anemia, unspecified (principal); K62.7 Radiation proctitis; Y84.2 Radiological procedure and radiotherapy as the cause of abnormal reaction of the patient, or of later complication, without mention of misadventure at the time of the procedure; D51.9 Vitamin B12 deficiency anemia, unspecified; J44.9 Chronic obstructive pulmonary disease, unspecified; I25.10 Atherosclerotic heart disease of native coronary artery without angina pectoris; I11.0 Hypertensive heart disease with heart failure; I50.9 Heart failure, unspecified; I48.91 Unspecified atrial fibrillation; J98.11 Atelectasis; G62.9 Polyneuropathy, unspecified; E78.5 Hyperlipidemia, unspecified; K64.8 Other hemorrhoids; K44.9 Diaphragmatic hernia without obstruction or gangrene; E66.9 Obesity, unspecified; Z68.37 Body mass index [BMI] 37.0-37.9, adult; F14.21 Cocaine dependence, in remission; F15.11 Other stimulant abuse, in remission; Z90.79 Acquired absence of other genital organ(s); Z90.49 Acquired absence of other specified parts of digestive tract; Z87.891 Personal history of nicotine dependence; Z85.46 Personal history of malignant neoplasm of prostate; Z86.718 Personal history of other venous thrombosis and embolism; Z79.01 Long term (current) use of anticoagulants; Z79.899 Other long term (current) drug therapy
CPT/HCPCS: 36415; 36430; 71046; 74177; 80048; 80053; 80069; 82607; 82728; 82746; 83010; 83540; 83550; 83615; 83735; 83880; 84443; 84466; 84484; 85014; 85018; 85025; 85027; 85046; 85610; 85730; 86850; 86880; 86900; 86901; 86923; 93005; 96361; 96372; 96374; 96376; 99285; A9270; C9113; G0378; J3420; J7050; P9016; Q9967

== ENCOUNTER 2024-12-07 16:15 | Outpatient (CLI) | payer MEDICARE, SELFPAY ==
--- OUTSIDE RECORDS SUMMARY | 2024-12-07 16:20 | XMS_ITS | Referral Summary ---
Author Organization [facility] al Address [address] [place] [address] Care Team Providers Care Heavy Media Operator Name Role Phone Jas Alcala MD Primary Care Provider + [phone] Lucio Rosas MD Unavailable Bianca Hunter MD Unavailable [phone] Encounters Date Type Department Care Team Description 12/07/19 12:00 PM DEMI CHEF Infusion [facility] at [address] [phone] Anemia, unspecified type (Primary Dx) 12/07/19 9:00 AM DEMI CHEF Lab [facility] at [address] [address] Anemia, unspecified type 11/30/19 25 Orders Only [facility] Hematology [facility] 6 [place] [phone] Nena Cano NP Anemia, unspecified type (Primary Dx) 11/30/19 25 Telephone [facility] [place] at [address] [phone] Kaycee Chanel, WILBER 11/30/19 9:00 AM DEMI CHEF Lab [facility] at [address] [phone] Anemia, unspecified type 11/28/19 25 Telephone [facility] Surgery [address] [facility] [address] [place] [phone] Reinaldo Little RMA 11/28/19 Orders Only [facility] Surgery [address] [facility] [address] [place] [phone] Charlie Juarez MD Malignant neoplasm of lower third of esophagus (CMS/HCC) (HCC) (Primary Dx) 11/25/19 Telephone [facility] [address] [place] [address] Ale Akhtar RN GI Preprocedure 11/25/19 9:15 AM DEMI CHEF Office Visit [facility] Gastroenterology at [address] [place] [phone] Lucio Rosas MD Malignant neoplasm of lower third of esophagus (CMS/HCC) (HCC) (Primary Dx); Miller's esophagus with high grade dysplasia; Radiation proctitis; History of colon polyps 11/24/19 10:00 AM DEMI CHEF Formerly [facility] at [address] [phone] Iron deficiency anemia, unspecified iron deficiency anemia type (Primary Dx); Anemia, unspecified type 11/22/19 Telephone [facility] Gastroenterology at [address] [place] [phone] Lucio Rosas MD 11/17/19 Telephone [facility] Hematology [facility] Floor 6 [place] [address] Inez Rao 11/17/19 25 Orders Only [facility] Hematology [address] [facility] Floor 6 [place] [address] Inez Rao Anemia, unspecified type (Primary Dx) 11/17/19 25 9:00 AM DEMI CHEF - 11/17/19 9:30 AM DEMI CHEF Surgery [facility] [address] [place] [address] Lucio Rosas MD COLON TUMOR ABLATION WITH DILATION 11/17/19 9:33 AM DEMI CHEF Anesthesia Event [facility] [address] [place] [address] Natalia Sanchez MD 11/17/19 7:45 AM DEMI CHEF - 11/17/19 11:40 AM DEMI CHEF Hospital Encounter [facility] [address] [place] [address] Lucio Rosas MD Gastric ulcer, unspecified chronicity, unspecified whether gastric ulcer hemorrhage or perforation present; Anemia, unspecified type; Anemia due to blood loss Discharge Disposition: Discharge to home or self care 11/16/19 9:00 AM DEMI CHEF Lab [facility] at [address] [address] Anemia, unspecified type 11/16/19 12:00 PM DEMI CHEF Infusion [facility] at [address] [address] Anemia, unspecified type (Primary Dx) 11/03/19 25 Telephone [facility] at [address] [phone] Lalitha Salcedo RN 11/03/19 Orders Only [facility] Hematology [address] [place] [phone] Inez Rao Anemia, unspecified type (Primary Dx) 11/03/19 9:00 AM DEMI CHEF Lab [facility] at [address] [address] Anemia, unspecified type 10/31/20 24 12:45 PM DEMI CHEF Infusion [facility] at [address] [phone] Anemia, unspecified type (Primary Dx) 10/28/20 24 Orders Only [facility] Hematology [address] [place] [phone] Gertrude Zhang Anemia, unspecified type (Primary Dx) 10/28/20 24 12:00 PM DEMI CHEF Infusion [facility] at [address] [address] Anemia, unspecified type (Primary Dx) 10/28/20 9:00 AM DEMI CHEF Lab [facility] at [address] [address] Anemia, unspecified type 10/19/20 Orders Only [facility] Hematology [address] [place] [phone] Inez Rao Anemia, unspecified type (Primary Dx) 10/19/20 Telephone [facility] at [address] [place] [address] Francie Hassan, WILBER 10/19/20 9:00 AM DEMI CHEF Lab [facility] at [address] [address] Anemia, unspecified type 10/05/20 Telephone [facility] at [address] [place] [address] Kaycee Chanel, RN 10/05/20 9:00 AM DEMI CHEF Lab [facility] at [address] [address] Anemia, unspecified type; History of pulmonary embolism 09/23/20 Orders Only [facility] G[facility] at [address] [place] [phone] Lucio Rosas MD Gastric ulcer, unspecified chronicity, unspecified whether gastric ulcer hemorrhage or perforation present (Primary Dx); Anemia, unspecified type; Anemia due to blood loss 09/21/20 Telephone [facility] at [address] [place] [phone] Lucio Rosas MD 09/20/20 Documentation [facility] at [address] [place] [address] Lucio Rosas MD 09/19/20 Orders Only [facility] Hematology [facility] 6 [place] [phone] Gertrude Zhang Anemia, unspecified type (Primary Dx); History of pulmonary embolism 09/19/20 Telephone [facility] Hematology [facility] 6 [place] [phone] [place] Inez Donnelly 09/19/20 8:15 AM DEMI CHEF Lab [facility] at [address] [address] Anemia, unspecified type 09/19/20 9:00 AM DEMI CHEF Infusion [facility] at [address] [place] [phone] Iron deficiency anemia, unspecified iron deficiency anemia type (Primary Dx); Anemia, unspecified type 09/15/20 Orders Only [facility] [place], [place] Unknown, Notinfile 09/15/20 10:30 AM DEMI CHEF - 09/15/20 11:00 AM DEMI CHEF Surgery [facility] [address] [place] [address] Lucio Rosas MD ESOPHAGOGASTRODUODENOSCOPY BALLOON DILATION <30MM 09/15/20 10:17 AM DEMI CHEF Anesthesia Event [facility] [address] [place] [address] Rai Golden MD Morris, Mark C., MD 09/15/20 9:23 AM DEMI CHEF - 09/15/20 12:02 PM DEMI CHEF Hospital Encounter [facility] [address] [place] [address] Lucio Rosas MD Anemia, unspecified type; Rectal bleeding; Radiation proctitis Discharge Disposition: Discharge to home or self care 09/12/20 Orders Only [facility] Hematology [address] [place] [address] [address] [place] [phone] Inez Rao Anemia, unspecified type (Primary Dx) 09/06/20 Orders Only [facility] [address] [place], [place] [address] [place] [address] Gosia Gagnon MD Anemia, unspecified type from Last 3 Months Allergies Active Allergy Reactions Criticality Noted Date Comments Amoxicillin Anaphylaxis High Celecoxib Anaphylaxis High Dapagliflozin Rash Medium 06/01/2024 Pregabalin Rash Medium 04/27/2017 Penicillins Shortness of breath High 09/23/2010 Medications furosemide (LASIX) 20 mg tablet Take 1 tablet (20 mg total) by mouth daily 0 Active calcium carbonate (TUMS) 500 mg (200 mg elemental) chewable tablet Take 1 tablet/chew tab (500 mg total) by mouth nightly Active carvediloL (COREG) 3.125 mg tabletIndication s:Anemia, unspecified type Take 1 tablet (3.125 mg total) by mouth 2 (two) times a day with meals 4 Active gabapentin (NEURONTIN) 100 mg capsuleIndicatio ns:Anemia, unspecified type Take 1 capsule (100 mg total) by mouth 3 (three) times a day 4 Active mexiletine (MEXITIL) 200 mg capsuleIndicatio ns:Anemia, unspecified type Take 1 capsule (200 mg total) by mouth 3 (three) times a day 0 Active warfarin (COUMADIN) 5 mg tabletIndication s:atrial fibrillation 5mg two days, then 2.5mg one day, then 5mg two days Active warfarin (COUMADIN) 2.5 mg tabletIndication s:Anemia, unspecified type Last took 09/11/24 Active magnesium oxide (MAG-OX) 400 mg (241.3 mg elemental magnesium) tabletIndication s:Anemia, unspecified type Take 1 tablet (400 mg total) by mouth 2 (two) times a day 2 Active atorvastatin (LIPITOR) 10 mg tabletIndication s:Anemia, unspecified type Take 1 tablet (10 mg total) by mouth daily 4 Active solifenacin (VESIcare) 5 mg tabletIndication s:Anemia, unspecified type Take 1 tablet (5 mg total) by mouth nightly Active cyanocobalamin (Vitamin B-12) 1,000 mcg tabletIndication s:Anemia, unspecified type Take 1 tablet (1,000 mcg total) by mouth every morning 4 Active ferrous sulfate 325 mg (65 mg of elemental iron) tabletIndication s:Anemia, unspecified type Take 1 tablet (325 mg total) by mouth 2 (two) times a day 4 Active nystatin ointment APPLY 1 GRAM TO AFFECTED AREA(S) TWICE DAILY FOR 15 DAYS 4 Active albuterol HFA (PROVENTIL HFA,VENTOLIN HFA,PROAIR HFA) 90 mcg/actuation inhaler Inhale 2 puffs every 6 (six) hours as needed for wheezing Active pantoprazole DR (PROTONIX) 40 mg EC tablet Take 1 tablet (40 mg total) by mouth 2 (two) times a day before breakfast and dinner 60 tablet 3 4 Active sod sulf-pot chloride-mag sulf (Sutab) 1.479-0.188- 0.225 gram tabletIndication s:Gastric ulcer, unspecified chronicity, unspecified whether gastric ulcer hemorrhage or perforation present,Anemia, unspecified type Take 12 tablets by mouth 2 (two) times a day Take as directed by GI office 24 tablet 4 11/17/19 25 Discontin ued(Stop Taking at Discharge ) Active Problems Problem Noted Date Diagnosed Date Malignant neoplasm of lower third of esophagus ( CMS/HCC) 11/25/2024 Assessment & Plan (11/25/2024 9:39 AM DEMI CHEF): EGD November 2024 with nodules in the distal esophagus, pathology with 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 -Pathology discuss in detail and all questions were answered -Refer for EUS -Refer to Oncology and Cardiothoracic surgery Miller's esophagus with high grade dysplasia Assessment & Plan (11/25/2024 9:41 AM DEMI CHEF): EGD September 2024 with irregular Z-line and gastric ulcers. Pathology with Barretts esophagus, indefinite for dysplasia. Repeat EGD November 2024 with Barretts esophagus, pathology with high-grade dysplasia. -Continue pantoprazole 40 mg p.o. b.i.d. History of colon polyps 11/25/2024 Assessment & Plan (11/25/2024 9:42 AM DEMI CHEF): Colonoscopy November 2024 with multiple tubular adenomas. -Repeat colonoscopy November 2027 Gastric ulcer 09/23/2024 Anemia due to blood loss 09/23/2024 Rectal bleeding 08/22/2024 Radiation proctitis 08/22/2024 Assessment & Plan (11/25/2024 9:41 AM DEMI CHEF): Colonoscopy November 2024 with severe radiation proctitis status post APC. -Consider flex sig with APC, patient advised to call office if rectal bleeding gets worse Eosinophilia 02/22/2024 Iron deficiency anemia, unspecified 02/22/2024 Anemia 02/22/2024 VT (ventricular tachycardia) 05/09/2022 Overview (05/09/2022): Added automatically from request for surgery [id number] Lower urinary tract symptoms (LUTS) 05/24/2020 Malignant neoplasm of prostate 04/25/2013 Immunizations Name Administration Dates Next Due Influenza, Unspecified 08/02/2018 Social History Tobacco Use Types Packs/Day Years Used Date Smoking Tobacco: Former Cigarettes 1 2019 Smokeless Tobacco: Never Tobacco Cessation:Counseling Given: Not Answered Alcohol Use Standard Drinks/Week Comments Yes 6 (1 standard drink = 0.6 oz pur e alcohol) AUDIT-C Answer Date Recorded Q1: How often do you have a drink containing alcohol? Never 11/09/2024 Q2: How many drinks containi ng alcohol do you have on a typical day when you are drinking? Patient does not drink Q3: How often do you have si x or more drinks on one occasion? Never 11/09/2024 Personal Safety Answer Date Recorded Have you ever been in or are you currently in a harmful physical or emotional relationship or is someone making you feel afraid or unsafe? Denies 11/17/2024 Sex and Gender Information Value Date Recorded Sex Assigned at Not on file Legal Sex Male 9:38 AM DEMI CHEF Gender Identity Not on file Sexual Orientation Not on file Occupation Industry Job Start Date Job End Date [employer] Work[employer] Not on file Not on file Not on file Retired Not on file Not on file Not on file Last Filed Vital Signs Vital Sign Reading Time Taken Comments Blood Pressure 117/69 12/07/2024 3:25 PM DEMI CHEF Pulse 55 12/07/2024 3:25 PM DEMI CHEF Temperature 36.4 C (97.5 F) 12/07/2024 3:25 PM DEMI CHEF Respiratory Rate 18 12/07/2024 3:25 PM DEMI CHEF Oxygen Saturation 98% 12/07/2024 3:25 PM DEMI CHEF Inhaled Oxygen Concentration - - Weight 127.1 kg (280 lb 3.2 oz) 025 12:16 PM DEMI CHEF w/shoes Height 181.6 cm (5' 11.5 ) 11/25/2024 9:14 AM CS T Body Mass Index 38.54 11/25/2024 9:14 AM DEMI CHEF Plan of Treatment Upcoming Encounters Date Type Department Care Team (Latest Contact Info) Description 12/13/2024 11:00 AM DEMI CHEF Hospital Encounter [facility] [place] [address] [facility] [address] [place] [phone] Nikolay Dunn MD [address] [address] Malignant neoplasm of lower third of esophagus (CMS/HCC) ([facility]) 12/13/2024 11:00 AM DEMI CHEF - 12/13/2024 12:00 PM DEMI CHEF Surgery [facility] [place] [address] [facility] [address] [place] [address] Nikolay Dunn MD [address] [address] EGD/EUS/EMR SC/OA/Interventiona l Scheduled Procedures Name Priority Associated Diagnoses Date/Ti me ESOPHAGOGASTRODUODENOSCOPY Malignant neoplasm of lower third of esophagus (CMS/HCC) (HCC) 12/13/2024 11:00 AM DEMI CHEF Medical Devices Implanted Type Area Inside Phone Sales Device Identifier Shelf Expiration Date Model / Serial / Lot Scre[employer] Rods Spine Lumbar Procedures Procedure Name Priority Date/Time Associated Diagnosis Comments TRANSFUSE RED BLOOD CELLS Timed 2024 12:56 PM DEMI CHEF Anemia, unspecified type PREPARE RBC Routine 12/07/2024 10:02 AM DEMI CHEF Anemia, unspecified type CROSSMATCH Routine 12/07/2024 9:29 AM DEMI CHEF Anemia, unspecified type EGFR Routine 12/07/2024 9:29 AM DEMI CHEF Anemia, unspecified type DIFFERENTIAL AUTO Routine 12/07/2024 9:29 AM DEMI CHEF Anemia, unspecified type ANTIBODY SCREEN Routine 12/07/2024 9:29 AM DEMI CHEF Anemia, unspecified type ABO/RH Routine 12/07/2024 9:29 AM DEMI CHEF Anemia, unspecified type TYPE AND SCREEN Routine 12/07/2024 9:29 AM DEMI CHEF Anemia, unspecified type CBC WITH AUTO DIFFERENTIAL Routine 12/07 9:29 AM DEMI CHEF Anemia, unspecified type COMPREHENSIVE METABOLIC PANEL Routine 9:29 AM DEMI CHEF Anemia, unspecified type FERRITIN Routine 12/07/2024 9:29 AM DEMI CHEF Anemia, unspecified type RETICULOCYTES Routine 12/07/2024 9:29 AM DEMI CHEF Anemia, unspecified type IRON PROFILE W/ IBC Routine 12/07/2024 9:29 AM DEMI CHEF Anemia, unspecified type EGFR Routine 11/30/2024 9:11 AM DEMI CHEF Anemia, unspecified type DIFFERENTIAL AUTO Routine 11/30/2024 9:11 AM DEMI CHEF Anemia, unspecified type CBC WITH AUTO DIFFERENTIAL Routine 11/30 9:11 AM DEMI CHEF Anemia, unspecified type COMPREHENSIVE METABOLIC PANEL Routine 9:11 AM DEMI CHEF Anemia, unspecified type FERRITIN Routine 11/30/2024 9:11 AM DEMI CHEF Anemia, unspecified type RETICULOCYTES Routine 11/30/2024 9:11 AM DEMI CHEF Anemia, unspecified type IRON PROFILE W/ IBC Routine 11/30/2024 9:11 AM DEMI CHEF Anemia, unspecified type SURGICAL PATHOLOGY Routine 11/17/2024 9:39 AM DEMI CHEF Gastric ulcer, unspecified chronicity, unspecified whether gastric ulcer hemorrhage or perforation present Anemia, unspecified type Anemia due to blood loss EGD 11/17/2024 9:34 AM DEMI CHEF COLONOSCOPY 11/17/2024 9:34 AM DEMI CHEF ENDO ADD ON COLON REMOVAL SNARE 11/17/2024 9:23 AM DEMI CHEF Gastric ulcer, unspecified chronicity, unspecified whether gastric ulcer hemorrhage or perforation present Anemia, unspecified type Anemia due to blood loss COLON TUMOR ABLATION WITH DILATION 11/17/2024 9:23 AM DEMI CHEF Gastric ulcer, unspecified chronicity, unspecified whether gastric ulcer hemorrhage or perforation present Anemia, unspecified type Anemia due to blood loss ENDO ADD ON COLON BIOPSY 025 9:23 AM DEMI CHEF Gastric ulcer, unspecified chronicity, unspecified whether gastric ulcer hemorrhage or perforation present Anemia, unspecified type Anemia due to blood loss ESOPHAGOGASTRODUODENOSCOPY BIOPSY 11/17/2024 9:23 AM DEMI CHEF Gastric ulcer, unspecified chronicity, unspecified whether gastric ulcer hemorrhage or perforation present Anemia, unspecified type Anemia due to blood loss ECG 12-LEAD STAT 11/17/2024 9:01 AM DEMI CHEF POC BLOOD GAS AND CHEMISTRIE S, VENOUS Routine 11/17/2024 8:49 AM DEMI CHEF PROTIME-INR STAT 11/17/2024 8:46 AM DEMI CHEF TRANSFUSE RED BLOOD CELLS Timed 2024 12:03 PM DEMI CHEF Anemia, unspecified type PREPARE RBC Routine 11/16/2024 10:29 AM DEMI CHEF Anemia, unspecified type CROSSMATCH Routine 11/16/2024 9:06 AM DEMI CHEF Anemia, unspecified type EGFR Routine 11/16/2024 9:06 AM DEMI CHEF Anemia, unspecified type DIFFERENTIAL AUTO Routine 11/16/2024 9:06 AM DEMI CHEF Anemia, unspecified type ANTIBODY SCREEN Routine 11/16/2024 9:06 AM DEMI CHEF Anemia, unspecified type ABO/RH Routine 11/16/2024 9:06 AM DEMI CHEF Anemia, unspecified type TYPE AND SCREEN Routine 11/16/2024 9:06 AM DEMI CHEF Anemia, unspecified type CBC WITH AUTO DIFFERENTIAL Routine 11/16 9:06 AM DEMI CHEF Anemia, unspecified type COMPREHENSIVE METABOLIC PANEL Routine 9:06 AM DEMI CHEF Anemia, unspecified type FERRITIN Routine 11/16/2024 9:06 AM DEMI CHEF Anemia, unspecified type RETICULOCYTES Routine 11/16/2024 9:06 AM DEMI CHEF Anemia, unspecified type IRON PROFILE W/ IBC Routine 11/16/2024 9:06 AM DEMI CHEF Anemia, unspecified type EGFR Routine 11/03/2024 9:43 AM DEMI CHEF Anemia, unspecified type DIFFERENTIAL AUTO Routine 11/03/2024 9:43 AM DEMI CHEF Anemia, unspecified type CBC WITH AUTO DIFFERENTIAL Routine 11/03 9:43 AM DEMI CHEF Anemia, unspecified type COMPREHENSIVE METABOLIC PANEL Routine 9:43 AM DEMI CHEF Anemia, unspecified type FERRITIN Routine 11/03/2024 9:43 AM DEMI CHEF Anemia, unspecified type RETICULOCYTES Routine 11/03/2024 9:43 AM DEMI CHEF Anemia, unspecified type IRON PROFILE W/ IBC Routine 11/03/2024 9:43 AM DEMI CHEF Anemia, unspecified type TRANSFUSE RED BLOOD CELLS Timed 2023 1:28 PM DEMI CHEF Anemia, unspecified type PREPARE RBC Routine 10/28/2024 2:35 PM DEMI CHEF Anemia, unspecified type TRANSFUSE RED BLOOD CELLS Timed 2023 11:47 AM DEMI CHEF Anemia, unspecified type PREPARE RBC STAT 10/28/2024 9:40 AM DEMI CHEF Anemia, unspecified type CROSSMATCH Routine 10/28/2024 9:01 AM DEMI CHEF Anemia, unspecified type EGFR Routine 10/28/2024 9:01 AM DEMI CHEF Anemia, unspecified type DIFFERENTIAL AUTO Routine 10/28/2024 9:01 AM DEMI CHEF Anemia, unspecified type ANTIBODY SCREEN Routine 10/28/2024 9:01 AM DEMI CHEF Anemia, unspecified type ABO/RH Routine 10/28/2024 9:01 AM DEMI CHEF Anemia, unspecified type TYPE AND SCREEN Routine 10/28/2024 9:01 AM DEMI CHEF Anemia, unspecified type CBC WITH AUTO DIFFERENTIAL Routine 10/28 9:01 AM DEMI CHEF Anemia, unspecified type COMPREHENSIVE METABOLIC PANEL Routine 9:01 AM DEMI CHEF Anemia, unspecified type FERRITIN Routine 10/28/2024 9:01 AM DEMI CHEF Anemia, unspecified type RETICULOCYTES Routine 10/28/2024 9:01 AM DEMI CHEF Anemia, unspecified type IRON PROFILE W/ IBC Routine 10/28/2024 9:01 AM DEMI CHEF Anemia, unspecified type EGFR Routine 10/19/2024 8:53 AM DEMI CHEF Anemia, unspecified type DIFFERENTIAL AUTO Routine 10/19/2024 8:53 AM DEMI CHEF Anemia, unspecified type CBC WITH AUTO DIFFERENTIAL Routine 10/19 8:53 AM DEMI CHEF Anemia, unspecified type COMPREHENSIVE METABOLIC PANEL Routine 8:53 AM DEMI CHEF Anemia, unspecified type FERRITIN Routine 10/19/2024 8:53 AM DEMI CHEF Anemia, unspecified type RETICULOCYTES Routine 10/19/2024 8:53 AM DEMI CHEF Anemia, unspecified type IRON PROFILE W/ IBC Routine 10/19/2024 8:53 AM DEMI CHEF Anemia, unspecified type EGFR Routine 10/05/2024 9:15 AM DEMI CHEF History of pulmonary embolism Anemia, unspecified type DIFFERENTIAL AUTO Routine 10/05/2024 9:15 AM DEMI CHEF History of pulmonary embolism Anemia, unspecified type DIRECT ANTIGLOBULIN TEST Routine 024 9:15 AM DEMI CHEF History of pulmonary embolism Anemia, unspecified type HAPTOGLOBIN Routine 10/05/2024 9:15 AM DEMI CHEF History of pulmonary embolism Anemia, unspecified type LACTATE DEHYDROGENASE Routine 10/05/2024 9:15 AM DEMI CHEF History of pulmonary embolism Anemia, unspecified type IRON PROFILE W/ IBC Routine 10/05/2024 9:15 AM DEMI CHEF History of pulmonary embolism Anemia, unspecified type RETICULOCYTES Routine 10/05/2024 9:15 AM DEMI CHEF History of pulmonary embolism Anemia, unspecified type FERRITIN Routine 10/05/2024 9:15 AM DEMI CHEF History of pulmonary embolism Anemia, unspecified type COMPREHENSIVE METABOLIC PANEL Routine 9:15 AM DEMI CHEF History of pulmonary embolism Anemia, unspecified type CBC WITH AUTO DIFFERENTIAL Routine 10/05 9:15 AM DEMI CHEF History of pulmonary embolism Anemia, unspecified type EGFR Routine 09/19/2024 8:23 AM DEMI CHEF Anemia, unspecified type DIFFERENTIAL AUTO Routine 09/19/2024 8:23 AM DEMI CHEF Anemia, unspecified type CBC WITH AUTO DIFFERENTIAL Routine 09/19 8:23 AM DEMI CHEF Anemia, unspecified type COMPREHENSIVE METABOLIC PANEL Routine 8:23 AM DEMI CHEF Anemia, unspecified type FERRITIN Routine 09/19/2024 8:23 AM DEMI CHEF Anemia, unspecified type RETICULOCYTES Routine 09/19/2024 8:23 AM DEMI CHEF Anemia, unspecified type IRON PROFILE W/ IBC Routine 09/19/2024 8:23 AM DEMI CHEF Anemia, unspecified type SURGICAL PATHOLOGY Routine 09/15/2024 10:25 AM DEMI CHEF EGD 09/15/2024 10:19 AM DEMI CHEF ESOPHAGOGASTRODUODENOSCOPY BALLOON DILATION <30MM 09/15/2024 10:18 AM DEMI CHEF Anemia, unspecified type Rectal bleeding Radiation proctitis ENDO ADD ON ESOPHAGOGASTRODUODENOSCOPY BIOPSY 09/15/2024 10:18 AM DEMI CHEF Anemia, unspecified type Rectal bleeding Radiation proctitis from Last 3 Months Results * Transfuse RBC (12/07/2024 3:27 PM DEMI CHEF) Blood us Janiya Sierra MD BLOOD TRANSFUSION ORDERABLES Fin al Result * Prepare RBC: 1 Units (12/07/2024 10:02 AM DEMI CHEF) Units requested 1 Comment:Testing performed by : [facility], [address] [place] [address], [place]., [address] Units requested Ready ISAAC SERNA Comment:Testing performed by : [facility], [address] [place] [address]., [address] Unit Number [id number] Product code [id number] ISAAC SERNA Blood Expiration Date [id number] ISAAC Product Blood Type (for scanning) 6200 ISAAC Product Blood Type APOS ISAAC Dispense Status DISPENSED ISAAC Blood 12/07/2024 10:0 2 AM DEMI CHEF 12/07/2024 10:01 AM DEMI CHEF Nena Cano NP BLOOD BANK PRODUCT ORDERABL ES Final Result ISAAC SERNA [address] [facility] [place] [address] * (ABNORMAL) eGFR (12/07/2024 9:29 AM DEMI CHEF) eGFR 32(L) >=60 mL/min/1. 73 m2 Comment: Interpretive Data Reference Interval Normal >/= 90 mL/min/1.73m2 Mildly decreased* 60 - 89 mL/min/1.73m2 Mildly to moderately decreased 45 - 59 mL/min/1.73m2 Moderately to severely decreased 30 - 44 mL/min/1.73m2 Severely decreased 15 - 29 mL/min/1.73m2 Kidney Failure < 15 mL/min/1.73m2 *Relative to young adult level Estimated glomerular filtration rate is determined by the 2020 CKD-EPI equation recommended by the National [employer] (A Unifying Approach to GFR Estimation: Recommendations of the NKF-ASK Task Force on Reassessing the Inclusion of Race in Diagnosing Kidney Disease, JASN 2020). The CKD-EPI equation should not be used for patients with unstable renal function and has not been validated in children and those over 70. Current interpretive data was last reviewed 2021. Testing performed by: [facility], [address] [place] [address]., [id number] Blood 12/07/2024 9:29 AM DEMI CHEF 12/07/2024 9:29 AM DEMI CHEF us Nena Cano GRAVITY FLOW IRRIGATOR LAB BLOOD ORDERABLES Final Result [facility] [address] [facility] [place] [address] * (ABNORMAL) Differential, auto (12/07/2024 9:29 AM DEMI CHEF) Pathologist [facility] Neutrophil abs 2.8 1.5 - 6.5 K/cumm Comment:Testing performed by : [address] [address] Imm gran abs 0.0 0.0 - 0.1 K/cumm ISAAC Comment:Testing performed by : [address] [address] Lymphocyte abs 0.6(L) 0.8 - 3.3 K/cumm ISAAC Comment:Testing performed by : [address] [address] Monocyte abs 0.6 0.2 - 0.8 K/cumm ISAAC Comment:Testing performed by : [address] [address] Eosinophil abs 0.4 0.0 - 0.5 K/cumm ISAAC Comment:Testing performed by : [address] [address] Basophil abs 0.1 0.0 - 0.1 K/cumm ISAAC Comment:Testing performed by : [address] [address] Neutrophil pct 62.7 % ISAAC Comment: Interpretive Data Percent cell count reference ranges are not reported, since discordance with absolute values may lead to misinterpretation of CBC data. Current Interpretive Data was last revised on 2018. Testing performed by: [address] [address] Imm gran pct 0.5 % ISAAC Comment: Interpretive Data Percent cell count reference ranges are not reported, since discordance with absolute values may lead to misinterpretation of CBC data. Current Interpretive Data was last revised on 2018. Testing performed by: [address] [address] Lymphocyte pct 14.3 % [facility] Comment: Interpretive Data Percent cell count reference ranges are not reported, since discordance with absolute values may lead to misinterpretation of CBC data. Current Interpretive Data was last revised on 2018. Testing performed by: [address] [address] Monocyte pct 12.5 % ISAAC Comment: Interpretive Data Percent cell count reference ranges are not reported, since discordance with absolute values may lead to misinterpretation of CBC data. Current Interpretive Data was last revised on 2018. Testing performed by: [address] [address] Eosinophil pct 8.9 % ISAAC Comment: Interpretive Data Percent cell count reference ranges are not reported, since discordance with absolute values may lead to misinterpretation of CBC data. Current Interpretive Data was last revised on 2018. Testing performed by: [address] [address] Basophil pct 1.1 % [facility] Comment: Interpretive Data Percent cell count reference ranges are not reported, since discordance with absolute values may lead to misinterpretation of CBC data. Current Interpretive Data was last revised on 2018. Testing performed by: [address] [address] Blood 12/07/2024 9:29 AM DEMI CHEF 12/07/2024 9:29 AM DEMI CHEF Nena Cano GRAVITY FLOW IRRIGATOR LAB BLOOD ORDERABLES Final Result [facility] [address] [facility] [place] [address] * (ABNORMAL) Iron profile w/ IBC (12/07/2024 9:29 AM DEMI CHEF) Iron 221(H) 50 - 150 mcg/dL Comment:Testing performed by : [address] [address] TIBC 250 250 - 400 mcg/dL ISAAC Comment:Testing performed by : [address] [address] Transferrin saturation 88(H) 20 - 50 % ISAAC Comment:Testing performed by : [address] [address] Blood 12/07/2024 9:29 AM DEMI CHEF 12/07/2024 11:47 AM DEMI CHEF Nena Cano GRAVITY FLOW IRRIGATOR LAB BLOOD ORDERABLES Final Result ISAAC [address] [facility] [place] [address] * (ABNORMAL) CBC with auto differential (12/07/2024 9:29 AM DEMI CHEF) WBC 4.4 3.8 - 9.9 K/cumm Comment:Testing performed by : [address] [address] Hgb 8.0(L) 13.0 - 17.5 g/dL ISAAC Comment:Testing performed by : [address] [address] Hct 27.2(L) 38.9 - 50.3 % ISAAC Comment:Testing performed by : [address] [address] Plt 312 150 - 400 K/cumm ISAAC Comment:Testing performed by : [address] [address] MPV 8.5(L) 9.1 - 12.3 fL ISAAC Comment:Testing performed by : [address] [address] RBC 2.78(L) 4.30 - 5.80 M/cumm ISAAC Comment:Testing performed by : [address] [address] MCV 97.8(H) 81.3 - 96.4 fL ISAAC Comment:Testing performed by : [address] [address] MCH 28.8 27.1 - 33.3 pg ISAAC Comment:Testing performed by : [address] [address] MCHC 29.4(L) 32.3 - 35.7 g/dL ISAAC SERNA Comment:Testing performed by : [address], [address] RDW CV 16.7(H) 11.1 - 14.9 % ISAAC SERNA Comment:Testing performed by : [address], [address] RDW SD 59.7(H) 35.7 - 48.1 fL ISAAC SERNA Comment:Testing performed by : [address], [address] NRBC abs 0.00 0.00 - 0.01 K/cumm ISAAC Comment:Testing performed by : [address], [address] Blood 12/07/2024 9:29 AM DEMI CHEF 12/07/2024 9:29 AM DEMI CHEF Nena Cano GRAVITY FLOW IRRIGATOR LAB BLOOD ORDERABLES Final Result Performing Organization Address [facility] Co de Phone Number [address] [place] [address] * ABO/Rh (12/07/2024 9:29 AM DEMI CHEF) ABO/Rh A Positive Comment:Testing performed by : [address], [address] Blood 12/07/2024 9:29 AM DEMI CHEF 12/07/2024 10:12 AM DEMI CHEF Narrative ISAAC - 12/07/2024 10:53 AM DEMI CHEF Has the patient had Daratumumab or Isatuximab in the past 6 months?->Unknown Nena Cano NP LAB BLOOD BANK TEST ORDERAB LES Final Result Performing Organization Address City/[facility] Co de Phone Number [address] [place] [address] * (ABNORMAL) Reticulocyte Count (12/07/2024 9:29 AM DEMI CHEF) Pathologist [facility] Retics, absolute 0.200(H) 0.020 - 0.087 M/cumm Comment:Testing performed by : [address] [address] Retics 7.2(H) 0.4 - 2.9 % ISAAC Comment:Testing performed by : [address] [address] Reticulocyte Hgb 26.3(L) 30.5 - 38.0 pg ISAAC Comment:Testing performed by : [address], [address] Blood 12/07/2024 9:29 AM DEMI CHEF 12/07/2024 9:29 AM DEMI CHEF Nena Cano GRAVITY FLOW IRRIGATOR LAB BLOOD ORDERABLES Final Result Performing Organization Address [facility] Co de Phone Number [address] [place] [address] * Crossmatch (12/07/2024 9:29 AM DEMI CHEF) [facility] Crossmatch Compatible [facility] Unit number for crossmatch [id number] [facility] Blood 12/07/2024 9:29 AM DEMI CHEF 12/07/2024 10:12 AM DEMI CHEF Nena Cano NP LAB BLOOD BANK TEST ORDERAB LES Final Result Performing Organization Address [facility] Co de Phone Number [address] [place] [address] * Antibody screen (12/07/2024 9:29 AM DEMI CHEF) [facility] Divina, indirect, Gel Interpretation Negative ABSC Comment:Testing performed by : [address] [address] Blood 12/07/2024 9:29 AM DEMI CHEF 12/07/2024 10:12 AM DEMI CHEF Narrative ISAAC - 12/07/2024 10:53 AM DEMI CHEF Has the patient had Daratumumab or Isatuximab in the past 6 months?->Unknown Nena Cano GRAVITY FLOW IRRIGATOR LAB BLOOD BANK TEST ORDERAB LES Final Result Performing Organization Address City/[facility] Co de Phone Number ISAAC [address] [address] * Ferritin (12/07/2024 9:29 AM DEMI CHEF) [facility] Ferritin 284 30 - 400 ng/mL Comment:Testing performed by : [address] [address] Blood 12/07/2024 9:29 AM DEMI CHEF 12/07/2024 11:47 AM DEMI CHEF Nena Cano GRAVITY FLOW IRRIGATOR LAB BLOOD ORDERABLES Final Result Performing Organization Address [facility] Phone Number [address] [place] [address] * (ABNORMAL) Comprehensive metabolic panel (12/07/2024 9:29 AM DEMI CHEF) [facility] Sodium 142 135 - 145 mmol/L Comment:Testing performed by : [address] [address] Potassium, pl 4.3 3.3 - 4.9 mmol/L ISAAC Comment:Testing performed by : [address] [address] Chloride 107 97 - 110 mmol/L ISAAC Comment:Testing performed by : [address] [address] CO2 26 22 - 32 mmol/L ISAAC Comment:Testing performed by : [address] [address] Anion gap 9 2 - 15 mmol/L ISAAC Comment:Testing performed by : [address] [address] BUN 14 6 - 25 mg/dL ISAAC Comment:Testing performed by : [address] [address] Creatinine 2.10(H) 0.80 - 1.30 mg/dL ISAAC Comment:Testing performed by : [address] [address] Glucose 99 70 - 199 mg/dL ISAAC Comment: Interpretive Data Fasting glucose >/= 126 mg/dl is diagnostic for diabetes. Fasting is defined as no caloric intake for at least 8 hours. Fasting glucose between 100 mg/dl to 125 mg/dl is diagnostic of prediabetes. In a patient with classic symptoms of hyperglycemia or hyperglycemic crisis, a random glucose >/= 200 mg/dl is diagnostic for diabetes. In the absence of unequivocal hyperglycemia, results should be confirmed by repeat testing. The classification and Diagnosis of Diabetes Diabetes Care 2021; 46: S19-S40. Current interpretive data was last revised 2022. Testing performed by: [address] [address] Calcium 8.8 8.5 - 10.3 mg/dL ISAAC Comment:Testing performed by : [address] [address] Bilirubin, total <0.2 0.1 - 1.2 mg/dL [facility] Comment:Testing performed by : [address] [address] Protein, pl 6.2(L) 6.5 - 8.5 g/dL ISAAC Comment:Testing performed by : [address] [address] Albumin 3.7 3.5 - 5.0 g/dL [facility] Comment:Testing performed by : [address] [address] Alk phos 67 40 - 130 Units/L ISAAC Comment:Testing performed by : [address] [address] ALT 11 7 - 55 Units/L ISAAC Comment:Testing performed by : [address] [address] AST 15 10 - 50 Units/L ISAAC Comment:Testing performed by : [address] [address] Blood 12/07/2024 9:29 AM DEMI CHEF 12/07/2024 9:29 AM DEMI CHEF Nena Cano GRAVITY FLOW IRRIGATOR LAB BLOOD ORDERABLES Final Result Performing Organization Address [facility] Co de Phone Number ISAAC [address] [place] [address] * (ABNORMAL) eGFR (11/30/2024 9:11 AM DEMI CHEF) eGFR 34(L) >=60 mL/min/1. 73 m2 Comment: Interpretive Data Reference Interval Normal >/= 90 mL/min/1.73m2 Mildly decreased* 60 - 89 mL/min/1.73m2 Mildly to moderately decreased 45 - 59 mL/min/1.73m2 Moderately to severely decreased 30 - 44 mL/min/1.73m2 Severely decreased 15 - 29 mL/min/1.73m2 Kidney Failure < 15 mL/min/1.73m2 *Relative to young adult level Estimated glomerular filtration rate is determined by the 2020 CKD-EPI equation recommended by the National Kid[employer] (A Unifying Approach to GFR Estimation: Recommendations of the NKF-ASK Task Force on Reassessing the Inclusion of Race in Diagnosing Kidney Disease, JASN 2020). The CKD-EPI equation should not be used for patients with unstable renal function and has not been validated in children and those over 70. Current interpretive data was last reviewed 2021. Testing performed by: [facility], [address] [place] [address]., [address] Blood 11/30/2024 9:11 AM DEMI CHEF 11/30/2024 9:16 AM DEMI CHEF Nena Cano NP LAB BLOOD ORDERABLES Final Result Performing Organization Address [facility]/ZIP Co de Phone Number ISAAC [address] Department [place] [address] * (ABNORMAL) Differential, auto (11/30/2024 9:11 AM DEMI CHEF) Neutrophil abs 3.2 1.5 - 6.5 K/cumm Comment:Testing performed by : [address], [place]., [address] Imm gran abs 0.0 0.0 - 0.1 K/cumm [facility] Comment:Testing performed by : [facility], [address] [place] [address], [place]., [address] Lymphocyte abs 0.7(L) 0.8 - 3.3 K/cumm [facility] Comment:Testing performed by : [address], [place]., [address] Monocyte abs 0.5 0.2 - 0.8 K/cumm [facility] Comment:Testing performed by : [address], [place]., [address] Eosinophil abs 0.5 0.0 - 0.5 K/cumm [facility] Comment:Testing performed by : [address], [place]., [address] Basophil abs 0.1 0.0 - 0.1 K/cumm [facility] Comment:Testing performed by : [address] [address] Neutrophil pct 64.1 % [facility] Comment: Interpretive Data Percent cell count reference ranges are not reported, since discordance with absolute values may lead to misinterpretation of CBC data. Current Interpretive Data was last revised on 2018. Testing performed by: [address] [address] Imm gran pct 0.8 % [facility] Comment: Interpretive Data Percent cell count reference ranges are not reported, since discordance with absolute values may lead to misinterpretation of CBC data. Current Interpretive Data was last revised on 2018. Testing performed by: [address] [address] Lymphocyte pct 13.5 % CERNER Comment: Interpretive Data Percent cell count reference ranges are not reported, since discordance with absolute values may lead to misinterpretation of CBC data. Current Interpretive Data was last revised on 2018. Testing performed by: [address] [address] Monocyte pct 10.5 % CERNER Comment: Interpretive Data Percent cell count reference ranges are not reported, since discordance with absolute values may lead to misinterpretation of CBC data. Current Interpretive Data was last revised on 2018. Testing performed by: [address] [address] Eosinophil pct 10.1 % ISAAC Comment: Interpretive Data Percent cell count reference ranges are not reported, since discordance with absolute values may lead to misinterpretation of CBC data. Current Interpretive Data was last revised on 2018. Testing performed by: [address] [address] Basophil pct 1.0 % ISAAC Comment: Interpretive Data Percent cell count reference ranges are not reported, since discordance with absolute values may lead to misinterpretation of CBC data. Current Interpretive Data was last revised on 2018. Testing performed by: [address] [address] Blood 11/30/2024 9:1 1 AM DEMI CHEF 11/30/2024 9:16 AM DEMI CHEF Nena Cano GRAVITY FLOW IRRIGATOR LAB BLOOD ORDERABLES Final Result [facility] [address] [facility] [place] [address] * (ABNORMAL) Iron profile w/ IBC (11/30/2024 9:11 AM DEMI CHEF) Iron 219(H) 50 - 150 mcg/dL Comment:Testing performed by : [address] [address] TIBC 289 250 - 400 mcg/dL ISAAC Comment:Testing performed by : [address] [address] Transferrin saturation 76(H) 20 - 50 % ISAAC Comment:Testing performed by : [address] [address] Blood 11/30/2024 9:11 AM DEMI CHEF 11/30/2024 11:41 AM DEMI CHEF Nena Cano GRAVITY FLOW IRRIGATOR LAB BLOOD ORDERABLES Final Result [facility] [address] [facility] [place] [address] * (ABNORMAL) CBC with auto differential (11/30/2024 9:11 AM DEMI CHEF) [facility] WBC 5.0 3.8 - 9.9 K/cumm Comment:Testing performed by : [address] [address] Hgb 8.5(L) 13.0 - 17.5 g/dL ISAAC Comment:Testing performed by : [address] [address] Hct 28.8(L) 38.9 - 50.3 % ISAAC Comment:Testing performed by : [address] [address] Plt 294 150 - 400 K/cumm ISAAC Comment:Testing performed by : [address] [address] MPV 8.5(L) 9.1 - 12.3 fL ISAAC Comment:Testing performed by : [address] [address] RBC 2.94(L) 4.30 - 5.80 M/cumm ISAAC Comment:Testing performed by : [address] [address] MCV 98.0(H) 81.3 - 96.4 fL [facility] Comment:Testing performed by : [address] [address] MCH 28.9 27.1 - 33.3 pg ISAAC Comment:Testing performed by : [address] [address] MCHC 29.5(L) 32.3 - 35.7 g/dL ISAAC Comment:Testing performed by : [address] [address] RDW CV 16.5(H) 11.1 - 14.9 % ISAAC Comment:Testing performed by : [address] [address] RDW SD 58.5(H) 35.7 - 48.1 fL IS[facility] SERNA Comment:Testing performed by : [address] [address] NRBC abs 0.00 0.00 - 0.01 K/cumm ISAAC SERNA Comment:Testing performed by : [address] [address] Blood 11/30/2024 9:11 AM DEMI CHEF 11/30/2024 9:16 AM DEMI CHEF Nena Cano GRAVITY FLOW IRRIGATOR LAB BLOOD ORDERABLES Final Result Performing Organization Address [facility] Co de Phone Number ISAAC [address] [employer] [place] [address] * (ABNORMAL) Reticulocyte Count (11/30/2024 9:11 AM DEMI CHEF) [facility] Retics, absolute 0.213(H) 0.020 - 0.087 M/cumm Comment:Testing performed by : [address] [address] Retics 7.2(H) 0.4 - 2.9 % [facility] SERNA Comment:Testing performed by : [address] [address] Reticulocyte Hgb 27.4(L) 30.5 - 38.0 pg ISAAC SERNA Comment:Testing performed by : [address] [address] Blood 11/30/2024 9:11 AM DEMI CHEF 11/30/2024 9:16 AM DEMI CHEF Nena Cano GRAVITY FLOW IRRIGATOR LAB BLOOD ORDERABLES Final Result Performing Organization Address City/[facility] Co de Phone Number DAYANA[address] [place] [address] * (ABNORMAL) Ferritin (11/30/2024 9:11 AM DEMI CHEF) [facility] Ferritin 500(H) 30 - 400 ng/mL Comment:Testing performed by : [address] [address] Blood 11/30/2024 9:11 AM DEMI CHEF 11/30/2024 11:41 AM DEMI CHEF Nena Cano GRAVITY FLOW IRRIGATOR LAB BLOOD ORDERABLES Final Result [facility] [address] [facility] Department [place] [address] * (ABNORMAL) Comprehensive metabolic panel (11/30/2024 9:11 AM DEMI CHEF) Sodium 143 135 - 145 mmol/L Comment:Testing performed by : [address] [address] Potassium, pl 4.7 3.3 - 4.9 mmol/L ISAAC Comment:Testing performed by : [address] [address] Chloride 109 97 - 110 mmol/L ISAAC Comment:Testing performed by : [address] [address] CO2 25 22 - 32 mmol/L ISAAC Comment:Testing performed by : [address] [address] Anion gap 9 2 - 15 mmol/L ISAAC Comment:Testing performed by : [address] [address] BUN 16 6 - 25 mg/dL ISAAC Comment:Testing performed by : [address] [address] Creatinine 2.00(H) 0.80 - 1.30 mg/dL ISAAC Comment:Testing performed by : [address] [address] Glucose 103 70 - 199 mg/dL ISAAC Comment: Interpretive Data Fasting glucose >/= 126 mg/dl is diagnostic for diabetes. Fasting is defined as no caloric intake for at least 8 hours. Fasting glucose between 100 mg/dl to 125 mg/dl is diagnostic of prediabetes. In a patient with classic symptoms of hyperglycemia or hyperglycemic crisis, a random glucose >/= 200 mg/dl is diagnostic for diabetes. In the absence of unequivocal hyperglycemia, results should be confirmed by repeat testing. The classification and Diagnosis of Diabetes Diabetes Care 202; 46: S19-S40. Current interpretive data was last revised 2022. Testing performed by: [address] [address] Calcium 9.2 8.5 - 10.3 mg/dL ISAAC Comment:Testing performed by : [address] [address] Bilirubin, total <0.2 0.1 - 1.2 mg/dL ISAAC Comment:Testing performed by : [address] [address] Protein, pl 6.4(L) 6.5 - 8.5 g/dL ISAAC Comment:Testing performed by : [address] [address] Albumin 3.7 3.5 - 5.0 g/dL ISAAC Comment:Testing performed by : [address] [address] Alk phos 72 40 - 130 Units/L ISAAC Comment:Testing performed by : [address] [address] ALT 13 7 - 55 Units/L ISAAC Comment:Testing performed by : [address] [address] AST 21 10 - 50 Units/L ISAAC Comment:Testing performed by : [address] [address] Blood 11/30/2024 9:11 AM DEMI CHEF 11/30/2024 9:16 AM DEMI CHEF Nena Cano NP LAB BLOOD ORDERABLES Final Result [facility] [address] [facility] [place] [address] * Surgical pathology (11/17/2024 9:39 AM DEMI CHEF) Tissue (Gastric/Stomach biopsy) 11/17/2024 9:39 AM DEMI CHEF Tissue (Esophageal biopsy) 11/17/2024 9:40 AM DEMI CHEF Tissue (Esophageal biopsy) 11/17/2024 9:41 AM DEMI CHEF Tissue (Polyp(s), colon/colorectal, esophageal, gastric) 11/17/2024 9:51 AM DEMI CHEF Tissue (Colon, Biopsy) 11/17/2024 9:55 AM DEMI CHEF Tissue (Colon, Biopsy) 11/17/2024 9:57 AM DEMI CHEF Tissue (Colon, Biopsy) 11/17/2024 10:00 AM DEMI CHEF Tissue (Colon, Biopsy) 11/17/2024 10:01 AM DEMI CHEF Narrative PATHOLOGY [facility] - 11/21/2024 2:09 PM DEMI CHEF [facility] Department of Pathology [address] [place] [address] Note to Patients: This report may contain a detailed description of human tissue sent by a health care provider to the laboratory for pathologic evaluation. The content of this report is essential for diagnosis and may provide important critical findings. This information may be unfamiliar to patients to review without a medical professional present. It is advised that the patient review this report in the presence of a health care provider who can answer questions and explain the details. Final Report Patient Name: BRENNEN OLSON : 1950 (Age: 74) Gender: M Address: [address] [place] [address] Hospital #: [id number] Service: Gastro Location: Patient Type: [facility] OUTPATIENT Taken: 11/17/2024 Received: 11/17/2024 Accessioned: 11/17/2024 Reported: 11/21/2024 Physician(s): Kvng Giraldo M.D. Diagnosis: A. Gastric body and antrum biopsies: - Antral mucosa with chemical/reactive gastropathy - Normal oxyntic mucosa - No H. pylori organisms are identified by H&E examination B. 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 Distal esophageal nodule biopsies: - Intramucosal moderately differentiated adenocarcinoma; see comment - Background Miller esophagus high-grade dysplasia D. Transverse colon polypectomy x2: - Fragments of tubular adenoma(s) E. appendial orfice biopsies: - Colonic mucosa with patchy active inflammation and prominent lymphoid aggregate - No evidence of granuloma - Negative for dysplasia F. ileal cecal valve polyp biopsy: - Tubular adenoma G. descending colon polyp x2, biopsy: - Tubular adenoma - Hyperplastic polyp H. Sigmoid colon polyp, biopsy: - Hyperplastic polyp Diagnosis Comment: C. There is features of high-grade dysplasia. In addition, there is focal glanduar crowding and incorporation of dysplastic glands to the squamous epithelium. These features are worrisome for intramucosal carcinoma. Endoscopic resection of this 15 mm nodule may be helpful to further characterize this lesion. This case was shared at the intradepartmental liver/GI consensus conference on 11/21/2024. This result was flagged as significant and was sent to Dr. Lucio Rosas via Secure Chat on 11/21/2024. Reason(s): To the best of our knowledge, this is the first diagnosis of this type of malignancy rendered for this patient. Andrea Martin MD Report Electronically Reviewed and Signed Out By Andrea Martin MD 11/21/2024 14:09:49 Specimen(s) Received: A: Gastric body and antrum biopsies B: Distal esophageal biopsies C: Distal esophageal nodule biopsies D: Transverse colon polypectomy x2 E: appendial orfice biopsies F: ileal cecal valve polyp G: descending colon polyp x2 H: Sigmoid colon polyp Microscopic Description: Unless gross-only is specified, the final diagnosis for each specimen is based on a microscopic examination of each tissue sample. Clinical History: The patient is a 74-year-old man with a gastric ulcer and blood loss anemia. Operative procedure: Upper GI endoscopy and colonoscopy with biopsy. Gross Description Received in eight formalin jars labeled with the patient's identifiers. A. Labeled gastric body and antrum biopsies rule out H pylori and consists of two prado tissue fragments measuring 0.3 cm and 0.4 cm. Entirely submitted. Labeled A1. Jar 0. B. Labeled distal esophageal biopsies rule out Barretts esophagus and consists of two prado tissue fragments measuring 0.2 cm and 0.3 cm. Entirely submitted. Labeled B1. Jar 0. C. Labeled distal esophageal nodule biopsies and consists of three prado tissue fragments ranging from 0.2-0.4 cm. Entirely submitted. Labeled C1. Jar 0. D. Labeled transverse colon polypectomy x2 hot snare and consists of five prado tissue fragments ranging from 0.2-0.3 cm. Entirely submitted. Labeled D1. Jar 0. E. Labeled appendiceal orifice biopsies cold Bx and consists of a 0.3 cm prado tissue fragment, which is entirely submitted. Labeled E1. Jar 0. F. Labeled ileal cecal valve polyp cold Bx and consists of a 0.3 cm prado tissue fragment, which is entirely submitted. Labeled F1. Jar 0. G. Labeled descending colon polyp x2 cold Bx and consists of two prado tissue fragments each measuring 0.3 cm. Entirely submitted. Labeled G1. Jar 0. H. Labeled sigmoid colon polyp cold Bx and consists of a 0.4 cm praod tissue fragment, which is entirely submitted. Labeled H1. Jar 0. [facility]/11/17/2024 14:02 SHAD Gonzalez, [facility] Microscopic slide review and interpretation for this case was performed at [facility], Department of Surgical Pathology, [address] [facility], [place] [address], [place] [address] CLIA # [id number] us Lucio Rosas MD LAB PATHOLOGY ORDERABLES Final R esult PATHOLOGY [facility] * EGD (11/17/2024 9:34 AM DEMI CHEF) Anatomical Region Laterality Modality Other Narrative Procedure Note Lucio Rosas MD - 11/17/2024 9:34 AM CST [facility] GI ENDOSCOPY Patient Name: Brennen Olson Procedure Date: 11/17/2024 9:34 AM Date of : 1950 Admit Type: Outpatient Age: 74 Gender: Male Attending MD: Lucio Rosas M.D. Room: [facility] ENDOSCOPY ROOM 03 Note Status: Finalized Procedure: Upper GI endoscopy Indications: Follow-up of Miller's esophagus (indefinite for dysplasia), Follow-up of peptic ulcer Referring MD: Providers: Lucio Rosas M.D. Medicines: Monitored Anesthesia Care Complications: No immediate complications. Procedure: Pre-Anesthesia Assessment: - Prior to the procedure, a History and Physicalwas performed, and patient medications and allergieswere reviewed. The risks and benefits of the procedureand the sedation options and risks were discussed withthe patient. All questions were answered and informed consent was obtained. Patient identification and proposed procedure were verified. After reviewingthe risks and benefits, the patient was deemed in satisfactory condition to undergo the procedure.The anesthesia plan was to use monitored anesthesiacare (MAC). Immediately prior to administration of medications, the patient was re-assessed foradequacy to receive sedatives. The heart rate, respiratory rate, oxygen saturations, blood pressure, adequacyof pulmonary ventilation, and response to care were monitored throughout the procedure. The physical status of the patient was re-assessed after the procedure. The benefits, risks, and alternatives to theprocedure and sedation were discussed and informed consentwas obtained. The scope was passed under direct vision. The GIF-H180 upper endoscope was introduced through the mouth, and advanced to the second part of duodenum. The upper GI endoscopy was accomplished without difficulty. The patient tolerated the procedure well. Findings: There were esophageal mucosal changes consistent with short-segment Miller's esophagus present in the distal esophagus. The maximum longitudinal extent of these mucosal changes was 2 cm in length.Mucosa was biopsied with a cold forceps for histology in 4 quadrants at intervals of 1 cm. One specimen bottle was sent to pathology. A single 15 mm nodule was found at the gastroesophageal junction. Biopsies were taken with a cold forceps for histology. Mild inflammation characterized by erythema was found in the stomach. Biopsies were taken with a cold forceps for Helicobacter pyloritesting. The examined duodenum was normal. The cardia and gastric fundus were normal on retroflexion. The exam was otherwise without abnormality. 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 Biopsied. - Nodule found in the esophagus. Biopsied. - Gastritis. Biopsied. - Normal examined duodenum. - The examination was otherwise normal. Recommendation: - Patient has a contact number available for emergencies. The signs and symptoms of potential delayed complications were discussed with thepatient. Return to normal activities tomorrow. Written discharge instructions were provided to thepatient. - Resume previous diet. - Continue PPI b.i.d.. - Await pathology results. - Repeat upper endoscopy in 6 months forsurveillance of Miller's esophagus. Lucio Rosas M.D. Lucio Rosas M.D. 11/17/2024 10:26:45 AM . Number of Addenda: 0 Note Initiated On: 11/17/2024 9:34 AM Recognized by the [employer] for promoting quality in endoscopy us Lucio Rosas MD ENDOSCOPY PROCEDURES Final Resul t * Colonoscopy (11/17/2024 9:34 AM DEMI CHEF) Anatomical Region Laterality Modality Other Narrative Procedure Note Lucio Rosas MD - 11/17/2024 9:34 AM CST [facility] GI ENDOSCOPY Patient Name: Brennen Olson Procedure Date: 11/17/2024 9:34 AM Date of : 1950 Admit Type: Outpatient Age: 74 Gender: Male Attending MD: Lucio Rosas M.D. Room: [facility] ENDOSCOPY ROOM 03 Note Status: Finalized Procedure: Colonoscopy Indications: Rectal bleeding Referring MD: Providers: Lucio Rosas M.D. Medicines: Monitored Anesthesia Care Complications: No immediate complications. Estimated Blood Loss: Estimated blood loss: none. Estimated blood losswas minimal. Procedure: Pre-Anesthesia Assessment: - Prior to the procedure, a History and Physicalwas performed, and patient medications and allergieswere reviewed. The risks and benefits of the procedureand the sedation options and risks were discussed withthe patient. All questions were answered and informed consent was obtained. Patient identification and proposed procedure were verified. After reviewingthe risks and benefits, the patient was deemed in satisfactory condition to undergo the procedure.The anesthesia plan was to use monitored anesthesiacare (MAC). Immediately prior to administration of medications, the patient was re-assessed foradequacy to receive sedatives. The heart rate, respiratory rate, oxygen saturations, blood pressure, adequacyof pulmonary ventilation, and response to care were monitored throughout the procedure. The physical status of the patient was re-assessed after the procedure. The benefits, risks and alternatives of theprocedure and sedation were discussed and informed consentwas obtained. All questions were answered. Please referto the signed informed consent document in the medical record. The scope was passed under direct vision.The PCF-SB182G colonoscope was introduced through theanus and advanced to the cecum, identified byappendiceal orifice and ileocecal valve. The scope was passed under direct vision. The [id number]-[id number] colonoscope was introduced through the and advanced to. The colonoscopy was performed without difficulty. The patient tolerated the procedure well. The qualityof the bowel preparation was adequate. Scopewithdrawal time was 22 minutes. Prep was administered in asplit dose. Findings: The perianal and digital rectal examinations were normal. Two sessile polyps were found in the transverse colon. The polypswere 6 mm in size. These polyps were removed with a hot snare. Resection and retrieval were complete. A diminutive polyp was found in the ileocecal valve. The polyp was removed with a cold biopsy forceps. Resection and retrieval were complete. A localized area of mildly erythematous mucosa was found at the appendiceal orifice. Biopsies were taken with a cold forceps for histology. Two polyps were found in the descending colon. The polyps were diminutive in size. These polyps were removed with a cold biopsy forceps. Resection and retrieval were complete. A diminutive polyp was found in the sigmoid colon. The polyp wasremoved with a cold biopsy forceps. Resection and retrieval were complete. Severe radiation proctitis was found in the rectum. Large clots were suctioned. Actively bleeding radiation proctitis was treated withAPC. No active bleeding seen after treatment with APC. Retroflexion was not performed due to radiation proctitis. Impression: - Two 6 mm polyps in the transverse colon, removed with a hot snare. Resected and retrieved. - One diminutive polyp at the ileocecal valve,removed with a cold biopsy forceps. Resected andretrieved. - Erythematous mucosa at the appendiceal orifice. Biopsied. - Two diminutive polyps in the descending colon, removed with a cold biopsy forceps. Resected and retrieved. - One diminutive polyp in the sigmoid colon,removed with a cold biopsy forceps. Resected andretrieved. - Severe radiation proctitis was found in therectum. Large clots were suctioned. Actively bleeding radiation proctitis was treated with APC. No active bleeding seen after treatment with APC. Recommendation: - Patient has a contact number available for emergencies. The signs and symptoms of potential delayed complications were discussed with thepatient. Return to normal activities tomorrow. Written discharge instructions were provided to thepatient. - High fiber diet. - Continue present medications. - Await pathology results. - Repeat colonoscopy in 3 years for surveillance. - Schedule flexible sigmoidoscopy in 4 weeks for re-treatment of radiation proctitis. Lucio Rosas M.D. Lucio Rosas M.D. 11/17/2024 10:33:39 AM . Number of Addenda: 0 Note Initiated On: 11/17/2024 9:34 AM Recognized by the [employer] for promoting quality in endoscopy Lucio Rosas MD ENDOSCOPY PROCEDURES Final Resul t * ECG 12 lead (11/17/2024 9:01 AM DEMI CHEF) Pathologist [facility] Ventricular Rate EKG/Min 56 BPM [facility] Atrial Rate 56 BPM [facility] WY-Interval (MSEC) 200 ms [facility] QRS-Interval (MSEC) 102 ms [facility] QT-Interval (MSEC) 460 ms [facility] QTc 443 ms [facility] P Kiron 67 degrees [facility] R Kiron -30 degrees [facility] T Kiron 32 degrees [facility] Diagnosis Sinus bradycardia Left axis deviation Minimal voltage criteria for LVH, may be normal variant ( R in aVL ) Abnormal ECG No previous ECGs available Confirmed by LOVELY CANALES M.D. ([id number]) on 11/18/2024 8:04:36 AM [facility] 11/17/2024 9:01 AM DEMI CHEF 11/18/2024 8:04 AM DEMI CHEF Natalia Sanchez MD ECG ORDERABLES Final Result [facility] * (ABNORMAL) POC Blood Gas and Chemistries, Venous - (11/17/2024 8:49 AM DEMI CHEF) pH,kwame POC 7.38 7.32 - 7.43 pCO2, kwame POC 41 40 - 50 mmHg [facility] pO2,kwame POC 27 mmHg [facility] Comment: Interpretive Data No reference range established. Current interpretive data was last revised 2020. HCO3, kwame (Calc) POC 24 20 - 30 mmol/L [facility] Base excess, kwame POC -1 mmol/L [facility] Comment: Interpretive Data No reference range established. Current interpretive data was last revised 2020. Hemoglobin, kwame POC 9.9(L) 13.0 - 17.5 g/dL [facility] Hematocrit, kwame POC 29.0(L) 38.9 - 50.3 % [facility] Sodium, kwame POC 141 135 - 145 mmol/L [facility] Potassium, kwame POC 4.0 3.3 - 4.9 mmol/L [facility] Comment: Interpretive Data This method is not able to assess for hemolysis, which may falsely increase potassium concentrations. If further testing is needed to evaluate this result, consider in-laboratory plasma potassium. Current Interpretive Data was last revised on 2022. Glucose, kwame POC 88 70 - 199 mg/dL [facility] Ionized Calcium, kwame POC 4.70 4.50 - 5.10 mg/dL [facility] Blood 11/17/2024 8:49 AM DEMI CHEF 11/17/2024 8:49 AM DEMI CHEF Lucio Rosas MD LAB POCT ORDERABLES - DEVICE Fin al Result Performing Organization Address [facility] Co de Phone Number [address] [place] [employer] [place] [address] * (ABNORMAL) Protime-INR (11/17/2024 8:46 AM DEMI CHEF) PT 16.8(H) 12.0 - 14.6 sec Comment:Ref Range High INR 1.4(H) 0.9 - 1.2 [facility] Comment: Ref Range High Interpretive data Oral anticoagulant therapeutic ranges: Venous thromboembolism prophylaxis or treatment: 2.0-3.0 CARDIOLOGY Standard range: 2.0-3.0 High-intensity range: 2.5-3.5 Refer to indication-specific guidelines for appropriate target ranges for prosthetic heart valve replacement. Current interpretive data was last revised on 2019. Blood 11/17/2024 8:46 AM DEMI CHEF 11/17/2024 8:50 AM DEMI CHEF Natalia Sanchez MD LAB BLOOD ORDERABLES Final Resul t Performing Organization Address [facility] Co de Phone Number [address] [place] [address] * Transfuse RBC (11/16/2024 2:24 PM DEMI CHEF) Blood Janiya Sierra MD BLOOD TRANSFUSION ORDERABLES Fin al Result * Prepare RBC: 1 Units (11/16/2024 10:29 AM DEMI CHEF) Units requested 1 Comment:Testing performed by : [address] [address] Units requested Ready ISAAC Comment:Testing performed by : [facility], [address] [place] [address]., [address] Unit Number [id number] Product code [id number] [facility] Blood Expiration Date [facility] Product Blood Type (for scanning) 6200 [facility] Product Blood Type APOS [facility] Dispense Status DISPENSED [facility] Blood 11/16/2024 10:2 9 AM DEMI CHEF 11/16/2024 10:29 AM DEMI CHEF Nena Cano NP BLOOD BANK PRODUCT ORDERABL ES Final Result [facility] [address] [facility] [place] [address] * (ABNORMAL) eGFR (11/16/2024 9:06 AM DEMI CHEF) eGFR 37(L) >=60 mL/min/1. 73 m2 Comment: Interpretive Data Reference Interval Normal >/= 90 mL/min/1.73m2 Mildly decreased* 60 - 89 mL/min/1.73m2 Mildly to moderately decreased 45 - 59 mL/min/1.73m2 Moderately to severely decreased 30 - 44 mL/min/1.73m2 Severely decreased 15 - 29 mL/min/1.73m2 Kidney Failure < 15 mL/min/1.73m2 *Relative to young adult level Estimated glomerular filtration rate is determined by the 2020 CKD-EPI equation recommended by the National Kidney Foundation (A Unifying Approach to GFR Estimation: Recommendations of the NKF-ASK Task Force on Reassessing the Inclusion of Race in Diagnosing Kidney Disease, JASN 2020). The CKD-EPI equation should not be used for patients with unstable renal function and has not been validated in children and those over 70. Current interpretive data was last reviewed 2021. Testing performed by: [address] [address] Blood 11/16/2024 9:06 AM DEMI CHEF 11/16/2024 9:07 AM DEMI CHEF Nena Cano NP LAB BLOOD ORDERABLES Final Result [facility] [address] [facility] Department [place] [address] * (ABNORMAL) Differential, auto (11/16/2024 9:06 AM DEMI CHEF) Neutrophil abs 2.8 1.5 - 6.5 K/cumm Comment:Testing performed by : [address] [address] Imm gran abs 0.0 0.0 - 0.1 K/cumm ISAAC Comment:Testing performed by : [address] [address] Lymphocyte abs 0.7(L) 0.8 - 3.3 K/cumm ISAAC Comment:Testing performed by : [address] [address] Monocyte abs 0.5 0.2 - 0.8 K/cumm ISAAC Comment:Testing performed by : [address] [address] Eosinophil abs 0.4 0.0 - 0.5 K/cumm ISAAC Comment:Testing performed by : [address] [address] Basophil abs 0.1 0.0 - 0.1 K/cumm ISAAC Comment:Testing performed by : [address] [address] Neutrophil pct 63.1 % ISAAC Comment: Interpretive Data Percent cell count reference ranges are not reported, since discordance with absolute values may lead to misinterpretation of CBC data. Current Interpretive Data was last revised on 2018. Testing performed by: [address] [address] Imm gran pct 0.5 % [facility] Comment: Interpretive Data Percent cell count reference ranges are not reported, since discordance with absolute values may lead to misinterpretation of CBC data. Current Interpretive Data was last revised on 2018. Testing performed by: [address] [address] Lymphocyte pct 14.9 % [facility] Comment: Interpretive Data Percent cell count reference ranges are not reported, since discordance with absolute values may lead to misinterpretation of CBC data. Current Interpretive Data was last revised on 2018. Testing performed by: [address] [address] Monocyte pct 11.1 % [facility] Comment: Interpretive Data Percent cell count reference ranges are not reported, since discordance with absolute values may lead to misinterpretation of CBC data. Current Interpretive Data was last revised on 2018. Testing performed by: [address] [address] Eosinophil pct 9.0 % [facility] Comment: Interpretive Data Percent cell count reference ranges are not reported, since discordance with absolute values may lead to misinterpretation of CBC data. Current Interpretive Data was last revised on 2018. Testing performed by: [address] [address] Basophil pct 1.4 % [facility] Comment: Interpretive Data Percent cell count reference ranges are not reported, since discordance with absolute values may lead to misinterpretation of CBC data. Current Interpretive Data was last revised on 2018. Testing performed by: [address] [address] Blood 11/16/2024 9:06 AM DEMI CHEF 11/16/2024 9:07 AM DEMI CHEF us Nena Cano NP LAB BLOOD ORDERABLES Final Result [facility] [address] [facility] Department of Laboratories [place], [place] [id number] * (ABNORMAL) Iron profile w/ IBC (11/16/2024 9:06 AM DEMI CHEF) [facility] Iron 20(L) 50 - 150 mcg/dL Comment:Testing performed by : [address] [address] TIBC 272 250 - 400 mcg/dL ISAAC SERNA Comment:Testing performed by : [address] [address] Transferrin saturation 7(L) 20 - 50 % ISAAC Comment:Testing performed by : [address] [address] Blood 11/16/2024 9:06 AM DEMI CHEF 11/16/2024 10:07 AM DEMI CHEF Nena Cano GRAVITY FLOW IRRIGATOR LAB BLOOD ORDERABLES Final Result [facility] [address] [facility] [place] [address] * (ABNORMAL) CBC with auto differential (11/16/2024 9:06 AM DEMI CHEF) [facility] WBC 4.4 3.8 - 9.9 K/cumm Comment:Testing performed by : [address] [address] Hgb 8.0(L) 13.0 - 17.5 g/dL [facility] SERNA Comment:Testing performed by : [address] [address] Hct 26.6(L) 38.9 - 50.3 % [facility] SERNA Comment:Testing performed by : [address] [address] Plt 317 150 - 400 K/cumm ISAAC SERNA Comment:Testing performed by : [address] [address] MPV 8.4(L) 9.1 - 12.3 fL [facility] SERNA Comment:Testing performed by : [address] [address] RBC 2.71(L) 4.30 - 5.80 M/cumm ISAAC Comment:Testing performed by : [facility], [address] [place] [address]., [address] MCV 98.2(H) 81.3 - 96.4 fL ISAAC Comment:Testing performed by : [address] [address] MCH 29.5 27.1 - 33.3 pg ISAAC Comment:Testing performed by : [address], [address] MCHC 30.1(L) 32.3 - 35.7 g/dL ISAAC Comment:Testing performed by : [address], [address] RDW CV 15.2(H) 11.1 - 14.9 % ISAAC Comment:Testing performed by : [address], [address] RDW SD 55.1(H) 35.7 - 48.1 fL ISAAC Comment:Testing performed by : [address], [address] NRBC abs 0.00 0.00 - 0.01 K/cumm ISAAC Comment:Testing performed by : [address], [address] Blood 11/16/2024 9:06 AM DEMI CHEF 11/16/2024 9:07 AM DEMI CHEF Nena Cano NP LAB BLOOD ORDERABLES Final Result [facility] [address] [facility] Department [place] [address] * ABO/Rh (11/16/2024 9:06 AM DEMI CHEF) ABO/Rh A Positive Comment:Testing performed by : [address], [address] Blood 11/16/2024 9:06 AM DEMI CHEF 11/16/2024 10:07 AM DEMI CHEF Narrative ISAAC - 11/16/2024 10:42 AM DEMI CHEF Has the patient had Daratumumab or Isatuximab in the past 6 months?->Unknown Nena Cano G[employer]VITY FLOW IRRIGATOR LAB BLOOD BANK TEST ORDERAB LES Final Result Performing Organization Address City/[facility]/ZIP Co de Phone Number ISAAC [address] [place] [address] * (ABNORMAL) Reticulocyte Count (11/16/2024 9:06 AM DEMI CHEF) Pathologist [facility] [employer], absolute 0.140(H) 0.020 - 0.087 M/cumm Comment:Testing performed by : [facility], [address] [place] [address]., [address] Retics 5.2(H) 0.4 - 2.9 % ISAAC Comment:Testing performed by : [facility], [address] [place] [address]., [address] Reticulocyte Hgb 23.9(L) 30.5 - 38.0 pg ISAAC Comment:Testing performed by : [facility], [address] [place] [address]., [address] Blood 11/16/2024 9:06 AM DEMI CHEF 11/16/2024 9:07 AM DEMI CHEF Nena Cano GRAVITY [employer]OW IRRIGATOR LAB BLOOD ORDERABLES Final Result Performing Organization Address [facility] de Phone Number [address] [address] * Crossmatch (11/16/2024 9:06 AM DEMI CHEF) [facility] Crossmatch Compatible [facility] Unit number for crossmatch [id number] ISAAC Blood 11/16/2024 9:06 AM DEMI CHEF 11/16/2024 10:07 AM DEMI CHEF Nena Cano GRAVITY [employer]OW IRRIGATOR LAB BLOOD BANK TEST ORDERAB LES Final Result Performing Organization Address City/[facility] Co de Phone Number DAYANA[address] [place] [address] * Antibody screen (11/16/2024 9:06 AM DEMI CHEF) Pathologist [facility] [employer], indirect, Gel Interpretation Negative ABSC Comment:Testing performed by : [address] [address] Blood 11/16/2024 9:06 AM DEMI CHEF 11/16/2024 10:07 AM DEMI CHEF Narrative ISAAC - 11/16/2024 10:42 AM DEMI CHEF Has the patient had Daratumumab or Isatuximab in the past 6 months?->Unknown Nena Cano GRAVITY FLOW IRRIGATOR LAB BLOOD BANK TEST ORDERAB LES Final Result Performing Organization Address City/[facility]/ZIP Co de Phone Number [address] [place] [address] * Ferritin (11/16/2024 9:06 AM DEMI CHEF) [facility] Ferritin 32 30 - 400 ng/mL Comment:Testing performed by : [address] [address] Blood 11/16/2024 9:06 AM DEMI CHEF 11/16/2024 10:07 AM DEMI CHEF Nena Cano GRAVITY FLOW IRRIGATOR LAB BLOOD ORDERABLES Final Result Performing Organization Address City/[facility]/ZIP Co de Phone Number [address] [address] * (ABNORMAL) Comprehensive metabolic panel (11/16/2024 9:06 AM DEMI CHEF) [facility] Sodium 140 135 - 145 mmol/L Comment:Testing performed by : [address] [address] Potassium, pl 4.4 3.3 - 4.9 mmol/L ISAAC Comment:Testing performed by : [address] [address] Chloride 108 97 - 110 mmol/L [facility]AC SERNA Comment:Testing performed by : [address] [address] CO2 25 22 - 32 mmol/L [facility] Comment:Testing performed by : [address] [address] Anion gap 7 2 - 15 mmol/L IS[facility] Comment:Testing performed by : [address], [place]., [address] BUN 18 6 - 25 mg/dL [facility] Comment:Testing performed by : [address] [address] Creatinine 1.90(H) 0.80 - 1.30 mg/dL [facility] Comment:Testing performed by : [address] [id number] Glucose 105 70 - 199 mg/dL ISAAC Comment: Interpretive Data Fasting glucose >/= 126 mg/dl is diagnostic for diabetes. Fasting is defined as no caloric intake for at least 8 hours. Fasting glucose between 100 mg/dl to 125 mg/dl is diagnostic of prediabetes. In a patient with classic symptoms of hyperglycemia or hyperglycemic crisis, a random glucose >/= 200 mg/dl is diagnostic for diabetes. In the absence of unequivocal hyperglycemia, results should be confirmed by repeat testing. The classification and Diagnosis of Diabetes Diabetes Care 2021; 46: S19-S40. Current interpretive data was last revised 2022. Testing performed by: [address] [address] Calcium 8.7 8.5 - 10.3 mg/dL [facility] Comment:Testing performed by : [address] [address] Bilirubin, total 0.2 0.1 - 1.2 mg/dL [facility] Comment:Testing performed by : [address] [address] Protein, pl 6.4(L) 6.5 - 8.5 g/dL ISAAC Comment:Testing performed by : [address] [address] Albumin 3.8 3.5 - 5.0 g/dL ISAAC Comment:Testing performed by : [address] [address] Alk phos 70 40 - 130 Units/L ISAAC SERNA Comment:Testing performed by : [address] [address] ALT 10 7 - 55 Units/L IS[facility]AC SERNA Comment:Testing performed by : [address] [address] AST 15 10 - 50 Units/L ISAAC SERNA Comment:Testing performed by : [address] [address] Blood 11/16/2024 9:06 AM DEMI CHEF 11/16/2024 9:07 AM DEMI CHEF us Nena Cano GRAVITY FLOW IRRIGATOR LAB BLOOD ORDERABLES Final Result ISAAC SERNA [address] [facility] [place] [address] * (ABNORMAL) eGFR (11/03/2024 9:43 AM DEMI CHEF) eGFR 37(L) >=60 mL/min/1. 73 m2 Comment: Interpretive Data Reference Interval Normal >/= 90 mL/min/1.73m2 Mildly decreased* 60 - 89 mL/min/1.73m2 Mildly to moderately decreased 45 - 59 mL/min/1.73m2 Moderately to severely decreased 30 - 44 mL/min/1.73m2 Severely decreased 15 - 29 mL/min/1.73m2 Kidney Failure < 15 mL/min/1.73m2 *Relative to young adult level Estimated glomerular filtration rate is determined by the 2020 CKD-EPI equation recommended by the National Kidney Foundation (A Unifying Approach to GFR Estimation: Recommendations of the NKF-ASK Task Force on Reassessing the Inclusion of Race in Diagnosing Kidney Disease, JASN 2020). The CKD-EPI equation should not be used for patients with unstable renal function and has not been validated in children and those over 70. Current interpretive data was last reviewed 2021. Testing performed by: [address] [address] Blood 11/03/2024 9:43 AM DEMI CHEF 11/03/2024 9:49 AM DEMI CHEF us Nena Cano GRAVITY FLOW IRRIGATOR LAB BLOOD ORDERABLES Final Result ISAAC [address] [facility] [place] [address] * (ABNORMAL) Differential, auto (11/03/2024 9:43 AM DEMI CHEF) Neutrophil abs 3.6 1.5 - 6.5 K/cumm Comment:Testing performed by : [address] [address] Imm gran abs 0.1 0.0 - 0.1 K/cumm ISAAC Comment:Testing performed by : [address] [address] Lymphocyte abs 0.7(L) 0.8 - 3.3 K/cumm ISAAC Comment:Testing performed by : [address] [address] Monocyte abs 0.7 0.2 - 0.8 K/cumm ISAAC Comment:Testing performed by : [address] [address] Eosinophil abs 0.5 0.0 - 0.5 K/cumm ISAAC Comment:Testing performed by : [address] [address] Basophil abs 0.1 0.0 - 0.1 K/cumm ISAAC Comment:Testing performed by : [address] [address] Neutrophil pct 64.1 % ISAAC Comment: Interpretive Data Percent cell count reference ranges are not reported, since discordance with absolute values may lead to misinterpretation of CBC data. Current Interpretive Data was last revised on 2018. Testing performed by: [address] [address] Imm gran pct 0.9 % ISAAC Comment: Interpretive Data Percent cell count reference ranges are not reported, since discordance with absolute values may lead to misinterpretation of CBC data. Current Interpretive Data was last revised on 2018. Testing performed by: [address] [address] Lymphocyte pct 12.9 % ISAAC Comment: Interpretive Data Percent cell count reference ranges are not reported, since discordance with absolute values may lead to misinterpretation of CBC data. Current Interpretive Data was last revised on 2018. Testing performed by: [address] [address] Monocyte pct 13.1 % ISAAC Comment: Interpretive Data Percent cell count reference ranges are not reported, since discordance with absolute values may lead to misinterpretation of CBC data. Current Interpretive Data was last revised on 2018. Testing performed by: [address] [address] Eosinophil pct 8.1 % ISAAC Comment: Interpretive Data Percent cell count reference ranges are not reported, since discordance with absolute values may lead to misinterpretation of CBC data. Current Interpretive Data was last revised on 2018. Testing performed by: [address] [address] Basophil pct 0.9 % ISAAC Comment: Interpretive Data Percent cell count reference ranges are not reported, since discordance with absolute values may lead to misinterpretation of CBC data. Current Interpretive Data was last revised on 2018. Testing performed by: [address] [address] Blood 11/03/2024 9:43 AM DEMI CHEF 11/03/2024 9:49 AM DEMI CHEF Nena Cano GRAVITY FLOW IRRIGATOR LAB BLOOD ORDERABLES Final Result ISAAC [address] [facility] Department of Laboratories [place], [place] [id number] * Iron profile w/ IBC (11/03/2024 9:43 AM DEMI CHEF) Iron 113 50 - 150 mcg/dL Comment:Testing performed by : [address] [address] TIBC 254 250 - 400 mcg/dL ISAAC Comment:Testing performed by : [address] [address] Transferrin saturation 44 20 - 50 % ISAAC Comment:Testing performed by : [address] [address] Blood 11/03/2024 9:43 AM DEMI CHEF 11/03/2024 11:39 AM DEMI CHEF Nena Cano GRAVITY FLOW IRRIGATOR LAB BLOOD ORDERABLES Final Result ISAAC [address] [facility] [place] [address] * (ABNORMAL) CBC with auto differential (11/03/2024 9:43 AM DEMI CHEF) WBC 5.6 3.8 - 9.9 K/cumm Comment:Testing performed by : [address] [address] Hgb 8.5(L) 13.0 - 17.5 g/dL IS[facility]AC Comment:Testing performed by : [address] [address] Hct 28.3(L) 38.9 - 50.3 % ISAAC Comment:Testing performed by : [address] [address] Plt 302 150 - 400 K/cumm ISAAC Comment:Testing performed by : [address] [address] MPV 8.3(L) 9.1 - 12.3 fL ISAAC Comment:Testing performed by : [address] [address] RBC 2.86(L) 4.30 - 5.80 M/cumm ISAAC Comment:Testing performed by : [address] [address] MCV 99.0(H) 81.3 - 96.4 fL ISAAC Comment:Testing performed by : [address] [address] MCH 29.7 27.1 - 33.3 pg ISAAC Comment:Testing performed by : [address] [place]., [address] MCHC 30.0(L) 32.3 - 35.7 g/dL ISAAC SERNA Comment:Testing performed by : [address] [address] RDW CV 18.3(H) 11.1 - 14.9 % ISAAC SERNA Comment:Testing performed by : [address] [address] RDW SD 65.1(H) 35.7 - 48.1 fL ISAAC Comment:Testing performed by : [address] [address] NRBC abs 0.00 0.00 - 0.01 K/cumm ISAAC Comment:Testing performed by : [address] [address] Blood 11/03/2024 9:43 AM DEMI CHEF 11/03/2024 9:49 AM DEMI CHEF Nena Cano GRAVITY FLOW IRRIGATOR LAB BLOOD ORDERABLES Final Result [facility] Department [place] [address] * (ABNORMAL) Reticulocyte Count (11/03/2024 9:43 AM DEMI CHEF) Retics, absolute 0.228(H) 0.020 - 0.087 M/cumm Comment:Testing performed by : [address] [address] Retics 8.0(H) 0.4 - 2.9 % ISAAC SERNA Comment:Testing performed by : [address] [address] Reticulocyte Hgb 28.9(L) 30.5 - 38.0 pg ISAAC SERNA Comment:Testing performed by : [address] [address] Blood 11/03/2024 9:43 AM DEMI CHEF 11/03/2024 9:49 AM DEMI CHEF Nena Cano GRAVITY FLOW IRRIGATOR LAB BLOOD ORDERABLES Final Result ISAAC [address] [place] [place] [address] * Ferritin (11/03/2024 9:43 AM DEMI CHEF) Pathologist [facility] Ferritin 134 30 - 400 ng/mL Comment:Testing performed by : [address] [address] Blood 11/03/2024 9:43 AM DEMI CHEF 11/03/2024 11:39 AM DEMI CHEF Nena Cano GRAVITY FLOW IRRIGATOR LAB BLOOD ORDERABLES Final Result Performing Organization Address City/[facility] Co de Phone Number ISAAC [address] [address] * (ABNORMAL) Comprehensive metabolic panel (11/03/2024 9:43 AM DEMI CHEF) [facility] Sodium 138 135 - 145 mmol/L Comment:Testing performed by : [address] [address] Potassium, pl 4.4 3.3 - 4.9 mmol/L ISAAC Comment:Testing performed by : [address] [address] Chloride 106 97 - 110 mmol/L ISAAC Comment:Testing performed by : [address] [address] CO2 24 22 - 32 mmol/L ISAAC Comment:Testing performed by : [address] [address] Anion gap 8 2 - 15 mmol/L ISAAC Comment:Testing performed by : [address] [address] BUN 17 6 - 25 mg/dL [facility]AAC Comment:Testing performed by : [address] [address] Creatinine 1.90(H) 0.80 - 1.30 mg/dL ISAAC Comment:Testing performed by : [address] [place] [address] Glucose 98 70 - 199 mg/dL ISAAC Comment: Interpretive Data Fasting glucose >/= 126 mg/dl is diagnostic for diabetes. Fasting is defined as no caloric intake for at least 8 hours. Fasting glucose between 100 mg/dl to 125 mg/dl is diagnostic of prediabetes. In a patient with classic symptoms of hyperglycemia or hyperglycemic crisis, a random glucose >/= 200 mg/dl is diagnostic for diabetes. In the absence of unequivocal hyperglycemia, results should be confirmed by repeat testing. The classification and Diagnosis of Diabetes Diabetes Care 2021; 46: S19-S40. Current interpretive data was last revised 2022. Testing performed by: [address] [address] Calcium 8.7 8.5 - 10.3 mg/dL IS[facility]AC Comment:Testing performed by : [address] [address] Bilirubin, total 0.2 0.1 - 1.2 mg/dL [facility] Comment:Testing performed by : [address] [address] Protein, pl 6.4(L) 6.5 - 8.5 g/dL [facility] Comment:Testing performed by : [address] [address] Albumin 3.7 3.5 - 5.0 g/dL [facility] Comment:Testing performed by : [address] [address] Alk phos 66 40 - 130 Units/L IS[facility]AC Comment:Testing performed by : [address] [address] ALT 10 7 - 55 Units/L [facility] Comment:Testing performed by : [address] [address] AST 16 10 - 50 Units/L ISAAC Comment:Testing performed by : [address] [address] Blood 11/03/2024 9:43 AM DEMI CHEF 11/03/2024 9:49 AM DEMI CHEF us Nena Cano NP LAB BLOOD ORDERABLES Final Result ISAAC [address] [address] * Transfuse RBC (10/31/2024 3:42 PM DEMI CHEF) Blood Result [facility] Janiya Sierra MD BLOOD TRANSFUSION ORDERABLES Delonte toni Result - Final * Prepare RBC: 1 Units (10/28/2024 2:35 PM DEMI CHEF) Units requested 1 Comment:Testing performed by : [address] [address] Units requested Ready ISAAC SERNA Comment:Testing performed by : [address] [address] Unit Number [id number] Product code [id number] [facility] Blood Expiration Date [id number] [facility] Product Blood Type (for scanning) 0600 [facility] Product Blood Type ANEG [facility] Dispense Status DISPENSED [facility] Blood 10/28/2024 2:35 PM DEMI CHEF 10/28/2024 2:35 PM DEMI CHEF Result [facility] Nena Cano NP BLOOD BANK PRODUCT ORDERABL ES Final Result Performing Organization Address City/[facility] Co de Phone Number ISAAC [address] [address] * Transfuse RBC (10/28/2024 1:40 PM DEMI CHEF) Blood Janiya Sierra MD BLOOD TRANSFUSION ORDERABLES Fin al Result * Prepare RBC: 1 Units (10/28/2024 9:40 AM DEMI CHEF) Units requested 1 Comment:Testing performed by : [address] [address] Units requested Ready ISAAC SERNA Comment:Testing performed by : [address] [address] Unit Number [id number] Product code [id number] [facility] Blood Expiration Date [id number] [facility] Product Blood Type (for scanning) 0600 [facility] Product Blood Type ANEG [facility] Dispense Status DISPENSED [facility] Blood 10/28/2024 9:40 AM DEMI CHEF 10/28/2024 9:40 AM DEMI CHEF Nena Cano NP BLOOD BANK PRODUCT ORDERABL ES Final Result Performing Organization Address City/[facility]/ZIP Co de Phone Number DAYANA[address] Department [place] [address] * (ABNORMAL) eGFR (10/28/2024 9:01 AM DEMI CHEF) eGFR 32(L) >=60 mL/min/1. 73 m2 Comment: Interpretive Data Reference Interval Normal >/= 90 mL/min/1.73m2 Mildly decreased* 60 - 89 mL/min/1.73m2 Mildly to moderately decreased 45 - 59 mL/min/1.73m2 Moderately to severely decreased 30 - 44 mL/min/1.73m2 Severely decreased 15 - 29 mL/min/1.73m2 Kidney Failure < 15 mL/min/1.73m2 *Relative to young adult level Estimated glomerular filtration rate is determined by the 2020 CKD-EPI equation recommended by the National Kidney Foundation (A Unifying Approach to GFR Estimation: Recommendations of the NKF-ASK Task Force on Reassessing the Inclusion of Race in Diagnosing Kidney Disease, JASN 2020). The CKD-EPI equation should not be used for patients with unstable renal function and has not been validated in children and those over 70. Current interpretive data was last reviewed 2021. Testing performed by: [facility], [address] [place] [address]., [address] Blood 10/28/2024 9:01 AM DEMI CHEF 10/28/2024 9:03 AM DEMI CHEF Nena Cano NP LAB BLOOD ORDERABLES Final Result [facility] [address] [facility] Department [place] [address] * (ABNORMAL) Differential, auto (10/28/2024 9:01 AM DEMI CHEF) Neutrophil abs 3.6 1.5 - 6.5 K/cumm Comment:Testing performed by : [address] [address] Imm gran abs 0.0 0.0 - 0.1 K/cumm ISAAC Comment:Testing performed by : [address] [address] Lymphocyte abs 0.7(L) 0.8 - 3.3 K/cumm ISAAC Comment:Testing performed by : [address] [address] Monocyte abs 0.8 0.2 - 0.8 K/cumm ISAAC Comment:Testing performed by : [address] [address] Eosinophil abs 0.5 0.0 - 0.5 K/cumm ISAAC Comment:Testing performed by : [address] [address] Basophil abs 0.1 0.0 - 0.1 K/cumm ISAAC Comment:Testing performed by : [address] [address] Neutrophil pct 64.2 % ISAAC Comment: Interpretive Data Percent cell count reference ranges are not reported, since discordance with absolute values may lead to misinterpretation of CBC data. Current Interpretive Data was last revised on 2018. Testing performed by: [address] [address] Imm gran pct 0.4 % ISAAC Comment: Interpretive Data Percent cell count reference ranges are not reported, since discordance with absolute values may lead to misinterpretation of CBC data. Current Interpretive Data was last revised on 2018. Testing performed by: [address] [address] Lymphocyte pct 12.0 % ISAAC Comment: Interpretive Data Percent cell count reference ranges are not reported, since discordance with absolute values may lead to misinterpretation of CBC data. Current Interpretive Data was last revised on 2018. Testing performed by: [address] [address] Monocyte pct 13.3 % ISAAC Comment: Interpretive Data Percent cell count reference ranges are not reported, since discordance with absolute values may lead to misinterpretation of CBC data. Current Interpretive Data was last revised on 2018. Testing performed by: [address] [address] Eosinophil pct 9.0 % ISAAC Comment: Interpretive Data Percent cell count reference ranges are not reported, since discordance with absolute values may lead to misinterpretation of CBC data. Current Interpretive Data was last revised on 2018. Testing performed by: [address] [address] Basophil pct 1.1 % ISAAC Comment: Interpretive Data Percent cell count reference ranges are not reported, since discordance with absolute values may lead to misinterpretation of CBC data. Current Interpretive Data was last revised on 2018. Testing performed by: [address] [address] Blood 10/28/2024 9:01 AM DEMI CHEF 10/28/2024 9:03 AM DEMI CHEF us Nena Cano GRAVITY FLOW IRRIGATOR LAB BLOOD ORDERABLES Final Result [facility] [address] [facility] [place] [address] * (ABNORMAL) Iron profile w/ IBC (10/28/2024 9:01 AM DEMI CHEF) Iron 164(H) 50 - 150 mcg/dL Comment:Testing performed by : [address] [address] TIBC 232(L) 250 - 400 mcg/dL ISAAC SERNA Comment:Testing performed by : [address] [address] Transferrin saturation 71(H) 20 - 50 % ISAAC Comment:Testing performed by : [address] [address] Blood 10/28/2024 9:01 AM DEMI CHEF 10/28/2024 9:37 AM DEMI CHEF us Nena Garzae Jerome GRAVITY FLOW IRRIGATOR LAB BLOOD ORDERABLES Final Result ISAAC [address] [facility] [place] [address] * (ABNORMAL) CBC with auto differential (10/28/2024 9:01 AM DEMI CHEF) WBC 5.7 3.8 - 9.9 K/cumm Comment:Testing performed by : [address] [address] Hgb 7.0(L) 13.0 - 17.5 g/dL ISAAC Comment:Testing performed by : [address] [address] Hct 23.6(L) 38.9 - 50.3 % ISAAC Comment:Testing performed by : [address] [address] Plt 324 150 - 400 K/cumm ISAAC Comment:Testing performed by : [address] [address] MPV 8.5(L) 9.1 - 12.3 fL ISAAC Comment:Testing performed by : [address] [address] RBC 2.36(L) 4.30 - 5.80 M/cumm ISAAC Comment:Testing performed by : [address] [address] MCV 100.0(H) 81.3 - 96.4 fL ISAAC Comment:Testing performed by : [address] [address] MCH 29.7 27.1 - 33.3 pg ISAAC Comment:Testing performed by : [address] [address] MCHC 29.7(L) 32.3 - 35.7 g/dL ISAAC Comment:Testing performed by : [facility], [address] [place] [address]., [address] RDW CV 16.8(H) 11.1 - 14.9 % ISAAC Comment:Testing performed by : [address] [address] RDW SD 58.3(H) 35.7 - 48.1 fL ISAAC Comment:Testing performed by : [address] [address] NRBC abs 0.00 0.00 - 0.01 K/cumm ISAAC Comment:Testing performed by : [address], [address] Blood 10/28/2024 9:01 AM DEMI CHEF 10/28/2024 9:03 AM DEMI CHEF Nena Cano NP LAB BLOOD ORDERABLES Final Result Performing Organization Address [facility] Co de Phone Number [address] [place] [employer] [place] [address] * ABO/Rh (10/28/2024 9:01 AM DEMI CHEF) [facility] ABO/Rh A Positive Comment:Testing performed by : [address], [address] Blood 10/28/2024 9:01 AM DEMI CHEF 10/28/2024 9:37 AM DEMI CHEF Narrative ISAAC - 10/28/2024 10:13 AM DEMI CHEF Has the patient had Daratumumab or Isatuximab in the past 6 months?->Unknown Nena Cano NP LAB BLOOD BANK TEST ORDERAB LES Final Result Performing Organization Address [facility] Co de Phone Number [address] [place] [address] * (ABNORMAL) Reticulocyte Count (10/28/2024 9:01 AM DEMI CHEF) Pathologist [facility] Retics, absolute 0.221(H) 0.020 - 0.087 M/cumm Comment:Testing performed by : [address] [address] Retics 9.4(H) 0.4 - 2.9 % ISAAC Comment:Testing performed by : [address] [address] Reticulocyte Hgb 26.9(L) 30.5 - 38.0 pg ISAAC Comment:Testing performed by : [address] [address] Blood 10/28/2024 9:01 AM DEMI CHEF 10/28/2024 9:03 AM DEMI CHEF Nena Cano LAB BLOOD ORDERABLES Final Result Performing Organization Address [facility] Co de Phone Number [address] [employer] [place] [address] * Crossmatch (10/28/2024 9:01 AM DEMI CHEF) Pathologist [facility] Crossmatch Compatible [facility] Unit number for crossmatch [id number] [facility] Crossmatch Compatible [facility] Unit number for crossmatch [id number] [facility] Blood 10/28/2024 9:01 AM DEMI CHEF 10/28/2024 9:37 AM DEMI CHEF Nena Cano NP LAB BLOOD BANK TEST ORDERAB LES Edited Result - Final Performing Organization Address [facility] Co de Phone Number [address] [place] [address] * Antibody screen (10/28/2024 9:01 AM DEMI CHEF) Divina, indirect, Gel Interpretation Negative ABSC Comment:Testing performed by : [address] [address] Blood 10/28/2024 9:01 AM DEMI CHEF 10/28/2024 9:37 AM DEMI CHEF Narrative ISAAC - 10/28/2024 10:13 AM DEMI CHEF Has the patient had Daratumumab or Isatuximab in the past 6 months?->Unknown Nena Cano GRAVITY FLOW IRRIGATOR LAB BLOOD BANK TEST ORDERAB LES Final Result Performing Organization Address City/[facility] Co de Phone Number ISAAC [address] [address] * Ferritin (10/28/2024 9:01 AM DEMI CHEF) Pathologist [facility] Ferritin 95 30 - 400 ng/mL Comment:Testing performed by : [address] [address] Blood 10/28/2024 9:01 AM DEMI CHEF 10/28/2024 9:37 AM DEMI CHEF Nena Cano GRAVITY FLOW IRRIGATOR LAB BLOOD ORDERABLES Final Result Performing Organization Address [facility] de Phone Number DAYANA[address] [place] [address] * (ABNORMAL) Comprehensive metabolic panel (10/28/2024 9:01 AM DEMI CHEF) [facility] Sodium 137 135 - 145 mmol/L Comment:Testing performed by : [address] [address] Potassium, pl 4.2 3.3 - 4.9 mmol/L ISAAC Comment:Testing performed by : [address] [address] Chloride 106 97 - 110 mmol/L ISAAC Comment:Testing performed by : [address] [address] CO2 21(L) 22 - 32 mmol/L ISAAC Comment:Testing performed by : [address] [address] Anion gap 10 2 - 15 mmol/L ISAAC Comment:Testing performed by : [address] [address] BUN 16 6 - 25 mg/dL ISAAC Comment:Testing performed by : [address] [address] Creatinine 2.10(H) 0.80 - 1.30 mg/dL ISAAC Comment:Testing performed by : [address] [address] Glucose 102 70 - 199 mg/dL ISAAC Comment: Interpretive Data Fasting glucose >/= 126 mg/dl is diagnostic for diabetes. Fasting is defined as no caloric intake for at least 8 hours. Fasting glucose between 100 mg/dl to 125 mg/dl is diagnostic of prediabetes. In a patient with classic symptoms of hyperglycemia or hyperglycemic crisis, a random glucose >/= 200 mg/dl is diagnostic for diabetes. In the absence of unequivocal hyperglycemia, results should be confirmed by repeat testing. The classification and Diagnosis of Diabetes Diabetes Care 2021; 46: S19-S40. Current interpretive data was last revised 2022. Testing performed by: [address] [address] Calcium 8.5 8.5 - 10.3 mg/dL ISAAC Comment:Testing performed by : [address] [address] Bilirubin, total 0.2 0.1 - 1.2 mg/dL [facility] Comment:Testing performed by : [address] [address] Protein, pl 6.2(L) 6.5 - 8.5 g/dL ISAAC Comment:Testing performed by : [address] [address] Albumin 3.5 3.5 - 5.0 g/dL ISAAC Comment:Testing performed by : [address] [address] Alk phos 71 40 - 130 Units/L ISAAC Comment:Testing performed by : [address] [address] ALT 10 7 - 55 Units/L ISAAC Comment:Testing performed by : [address] [address] AST 15 10 - 50 Units/L ISAAC Comment:Testing performed by : [address] [address] Blood 10/28/2024 9:01 AM DEMI CHEF 10/28/2024 9:03 AM DEMI CHEF Nena Cano GRAVITY FLOW IRRIGATOR LAB BLOOD ORDERABLES Final Result Performing Organization Address City/[facility] Co de Phone Number ISAAC [address] [address] * (ABNORMAL) eGFR (10/19/2024 8:53 AM DEMI CHEF) eGFR 34(L) >=60 mL/min/1. 73 m2 Comment: Interpretive Data Reference Interval Normal >/= 90 mL/min/1.73m2 Mildly decreased* 60 - 89 mL/min/1.73m2 Mildly to moderately decreased 45 - 59 mL/min/1.73m2 Moderately to severely decreased 30 - 44 mL/min/1.73m2 Severely decreased 15 - 29 mL/min/1.73m2 Kidney Failure < 15 mL/min/1.73m2 *Relative to young adult level Estimated glomerular filtration rate is determined by the 2020 CKD-EPI equation recommended by the National Kidney Foundation (A Unifying Approach to GFR Estimation: Recommendations of the NKF-ASK Task Force on Reassessing the Inclusion of Race in Diagnosing Kidney Disease, JASN 2020). The CKD-EPI equation should not be used for patients with unstable renal function and has not been validated in children and those over 70. Current interpretive data was last reviewed 2021. Testing performed by: [facility], [address] [place] [address]., [address] Blood 10/19/2024 8:53 AM DEMI CHEF 10/19/2024 8:55 AM DEMI CHEF Nena Cano NP LAB BLOOD ORDERABLES Final Result Performing Organization Address City/[facility]/ZIP Co de Phone Number ISAAC [address] [place] [place] [address] * (ABNORMAL) Differential, auto (10/19/2024 8:53 AM DEMI CHEF) Neutrophil abs 3.2 1.5 - 6.5 K/cumm Comment:Testing performed by : [facility], [address] [place] [address]., [address] Imm gran abs 0.0 0.0 - 0.1 K/cumm [facility] Comment:Testing performed by : [address], [place]., [address] Lymphocyte abs 0.7(L) 0.8 - 3.3 K/cumm CERNER Comment:Testing performed by : [address] [address] Monocyte abs 0.7 0.2 - 0.8 K/cumm [facility] Comment:Testing performed by : [address] [address] Eosinophil abs 0.6(H) 0.0 - 0.5 K/cumm [facility] Comment:Testing performed by : [address] [address] Basophil abs 0.1 0.0 - 0.1 K/cumm [facility] Comment:Testing performed by : [address] [address] Neutrophil pct 60.9 % [facility] Comment: Interpretive Data Percent cell count reference ranges are not reported, since discordance with absolute values may lead to misinterpretation of CBC data. Current Interpretive Data was last revised on 2018. Testing performed by: [address] [address] Imm gran pct 0.8 % CERNER Comment: Interpretive Data Percent cell count reference ranges are not reported, since discordance with absolute values may lead to misinterpretation of CBC data. Current Interpretive Data was last revised on 2018. Testing performed by: [address] [address] Lymphocyte pct 12.7 % CERNER Comment: Interpretive Data Percent cell count reference ranges are not reported, since discordance with absolute values may lead to misinterpretation of CBC data. Current Interpretive Data was last revised on 2018. Testing performed by: [address] [address] Monocyte pct 13.3 % CERNER Comment: Interpretive Data Percent cell count reference ranges are not reported, since discordance with absolute values may lead to misinterpretation of CBC data. Current Interpretive Data was last revised on 2018. Testing performed by: [address] [address] Eosinophil pct 11.3 % ISAAC Comment: Interpretive Data Percent cell count reference ranges are not reported, since discordance with absolute values may lead to misinterpretation of CBC data. Current Interpretive Data was last revised on 2018. Testing performed by: [address] [address] Basophil pct 1.0 % ISAAC Comment: Interpretive Data Percent cell count reference ranges are not reported, since discordance with absolute values may lead to misinterpretation of CBC data. Current Interpretive Data was last revised on 2018. Testing performed by: [address] [address] Blood 10/19/2024 8:53 AM DEMI CHEF 10/19/2024 8:55 AM DEMI CHEF Nena Cano [employer] LAB BLOOD ORDERABLES Final Result ISAAC [address] [facility] [place] [address] * (ABNORMAL) Iron profile w/ IBC (10/19/2024 8:53 AM DEMI CHEF) Iron 140 50 - 150 mcg/dL Comment:Testing performed by : [address] [address] TIBC 242(L) 250 - 400 mcg/dL ISAAC Comment:Testing performed by : [address] [address] Transferrin saturation 58(H) 20 - 50 % ISAAC Comment:Testing performed by : [address] [address] Blood 10/19/2024 8:53 AM DEMI CHEF 10/19/2024 9:44 AM DEMI CHEF Nena Oleary Lorenzocleo [employer] LAB BLOOD ORDERABLES Final Result [facility] [address] [facility] [place] [address] * (ABNORMAL) CBC with auto differential (10/19/2024 8:53 AM DEMI CHEF) WBC 5.2 3.8 - 9.9 K/cumm Comment:Testing performed by : [address] [address] Hgb 8.8(L) 13.0 - 17.5 g/dL ISAAC Comment:Testing performed by : [address] [address] Hct 29.5(L) 38.9 - 50.3 % ISAAC Comment:Testing performed by : [address] [address] Plt 286 150 - 400 K/cumm ISAAC Comment:Testing performed by : [address] [address] MPV 8.4(L) 9.1 - 12.3 fL ISAAC Comment:Testing performed by : [address] [address] RBC 2.97(L) 4.30 - 5.80 M/cumm ISAAC Comment:Testing performed by : [address] [address] MCV 99.3(H) 81.3 - 96.4 fL ISAAC Comment:Testing performed by : [address] [address] MCH 29.6 27.1 - 33.3 pg ISAAC Comment:Testing performed by : [address] [address] MCHC 29.8(L) 32.3 - 35.7 g/dL ISAAC Comment:Testing performed by : [address] [address] RDW CV 15.8(H) 11.1 - 14.9 % ISAAC Comment:Testing performed by : [address] [place] [address] RDW SD 56.5(H) 35.7 - 48.1 fL ISAAC SERNA Comment:Testing performed by : [address] [address] NRBC abs 0.00 0.00 - 0.01 K/cumm ISAAC SERNA Comment:Testing performed by : [address] [address] Blood 10/19/2024 8:53 AM DEMI CHEF 10/19/2024 8:55 AM DEMI CHEF Nena Cano [employer] LAB BLOOD ORDERABLES Final Result Performing Organization Address City/[facility] Co de Phone Number ISAAC [address] [place] [employer] [place] [address] * (ABNORMAL) Reticulocyte Count (10/19/2024 8:53 AM DEMI CHEF) [facility] Retics, absolute 0.185(H) 0.020 - 0.087 M/cumm Comment:Testing performed by : [address] [address] Retics 6.2(H) 0.4 - 2.9 % ISAAC SERNA Comment:Testing performed by : [address] [address] Reticulocyte Hgb 28.6(L) 30.5 - 38.0 pg ISAAC SERNA Comment:Testing performed by : [address] [address] Blood 10/19/2024 8:53 AM DEMI CHEF 10/19/2024 8:55 AM DEMI CHEF Nena Cano [employer] LAB BLOOD ORDERABLES Final Result Performing Organization Address City/[facility] de Phone Number ISAAC [address] [place] [place] [address] * Ferritin (10/19/2024 8:53 AM DEMI CHEF) [facility] Ferritin 109 30 - 400 ng/mL Comment:Testing performed by : [address] [address] Blood 10/19/2024 8:53 AM DEMI CHEF 10/19/2024 9:44 AM DEMI CHEF Nena Cano [employer] LAB BLOOD ORDERABLES Final Result [facility] [address] [facility] Department [place] [address] * (ABNORMAL) Comprehensive metabolic panel (10/19/2024 8:53 AM DEMI CHEF) Sodium 139 135 - 145 mmol/L Comment:Testing performed by : [address] [address] Potassium, pl 4.1 3.3 - 4.9 mmol/L ISAAC Comment:Testing performed by : [address] [address] Chloride 106 97 - 110 mmol/L ISAAC Comment:Testing performed by : [address] [address] CO2 24 22 - 32 mmol/L ISAAC Comment:Testing performed by : [address] [address] Anion gap 9 2 - 15 mmol/L ISAAC Comment:Testing performed by : [address] [address] BUN 18 6 - 25 mg/dL ISAAC Comment:Testing performed by : [address] [address] Creatinine 2.00(H) 0.80 - 1.30 mg/dL ISAAC Comment:Testing performed by : [address] [address] Glucose 101 70 - 199 mg/dL ISAAC Comment: Interpretive Data Fasting glucose >/= 126 mg/dl is diagnostic for diabetes. Fasting is defined as no caloric intake for at least 8 hours. Fasting glucose between 100 mg/dl to 125 mg/dl is diagnostic of prediabetes. In a patient with classic symptoms of hyperglycemia or hyperglycemic crisis, a random glucose >/= 200 mg/dl is diagnostic for diabetes. In the absence of unequivocal hyperglycemia, results should be confirmed by repeat testing. The classification and Diagnosis of Diabetes Diabetes Care 202; 46: S19-S40. Current interpretive data was last revised 2022. Testing performed by: [address] [address] Calcium 8.8 8.5 - 10.3 mg/dL ISAAC Comment:Testing performed by : [address] [address] Bilirubin, total 0.2 0.1 - 1.2 mg/dL ISAAC Comment:Testing performed by : [address] [address] Protein, pl 6.6 6.5 - 8.5 g/dL ISAAC Comment:Testing performed by : [address] [address] Albumin 3.8 3.5 - 5.0 g/dL ISAAC Comment:Testing performed by : [address] [address] Alk phos 72 40 - 130 Units/L ISAAC Comment:Testing performed by : [address] [address] ALT 9 7 - 55 Units/L ISAAC Comment:Testing performed by : [address] [address] AST 15 10 - 50 Units/L ISAAC Comment:Testing performed by : [address] [address] Blood 10/19/2024 8:53 AM DEMI CHEF 10/19/2024 8:55 AM DEMI CHEF us Nena Cano NP LAB BLOOD ORDERABLES Final Result ISAAC SERNA [address] [facility] Department of Laboratories [place], [place] [id number] * (ABNORMAL) eGFR (10/05/2024 9:15 AM DEMI CHEF) [facility] Signature eGFR 45(L) >=60 mL/min/1. 73 m2 Comment: Interpretive Data Reference Interval Normal >/= 90 mL/min/1.73m2 Mildly decreased* 60 - 89 mL/min/1.73m2 Mildly to moderately decreased 45 - 59 mL/min/1.73m2 Moderately to severely decreased 30 - 44 mL/min/1.73m2 Severely decreased 15 - 29 mL/min/1.73m2 Kidney Failure < 15 mL/min/1.73m2 *Relative to young adult level Estimated glomerular filtration rate is determined by the 2020 CKD-EPI equation recommended by the National Kidney Foundation (A Unifying Approach to GFR Estimation: Recommendations of the NKF-ASK Task Force on Reassessing the Inclusion of Race in Diagnosing Kidney Disease, JASN 2020). The CKD-EPI equation should not be used for patients with unstable renal function and has not been validated in children and those over 70. Current interpretive data was last reviewed 2021. Testing performed by: [address] [address] Blood 10/05/2024 9:15 AM DEMI CHEF 10/05/2024 9:16 AM DEMI CHEF us Nena Cano NP LAB BLOOD ORDERABLES Final Result ISAAC SERNA [address] [facility] Department of Laboratories [place], [place] [id number] * (ABNORMAL) Differential, auto (10/05/2024 9:15 AM DEMI CHEF) Neutrophil abs 3.9 1.5 - 6.5 K/cumm Comment:Testing performed by : [address] [address] Imm gran abs 0.1 0.0 - 0.1 K/cumm ISAAC SERNA Comment:Testing performed by : [address] [address] Lymphocyte abs 0.6(L) 0.8 - 3.3 K/cumm ISAAC SERNA Comment:Testing performed by : [address] [address] Monocyte abs 0.6 0.2 - 0.8 K/cumm [facility] Comment:Testing performed by : [address] [address] Eosinophil abs 0.4 0.0 - 0.5 K/cumm [facility] Comment:Testing performed by : [address] [address] Basophil abs 0.1 0.0 - 0.1 K/cumm [facility] Comment:Testing performed by : [address] [address] Neutrophil pct 68.4 % [facility] Comment: Interpretive Data Percent cell count reference ranges are not reported, since discordance with absolute values may lead to misinterpretation of CBC data. Current Interpretive Data was last revised on 2018. Testing performed by: [address] [address] Imm gran pct 1.1 % [facility] Comment: Interpretive Data Percent cell count reference ranges are not reported, since discordance with absolute values may lead to misinterpretation of CBC data. Current Interpretive Data was last revised on 2018. Testing performed by: [address] [address] Lymphocyte pct 11.3 % [facility] Comment: Interpretive Data Percent cell count reference ranges are not reported, since discordance with absolute values may lead to misinterpretation of CBC data. Current Interpretive Data was last revised on 2018. Testing performed by: [address] [address] Monocyte pct 11.1 % [facility] Comment: Interpretive Data Percent cell count reference ranges are not reported, since discordance with absolute values may lead to misinterpretation of CBC data. Current Interpretive Data was last revised on 2018. Testing performed by: [address] [address] Eosinophil pct 7.2 % [facility] Comment: Interpretive Data Percent cell count reference ranges are not reported, since discordance with absolute values may lead to misinterpretation of CBC data. Current Interpretive Data was last revised on 2018. Testing performed by: [address] [address] Basophil pct 0.9 % [facility] Comment: Interpretive Data Percent cell count reference ranges are not reported, since discordance with absolute values may lead to misinterpretation of CBC data. Current Interpretive Data was last revised on 2018. Testing performed by: [address] [address] Blood 10/05/2024 9:15 AM DEMI CHEF 10/05/2024 9:16 AM DEMI CHEF [facility] LAB BLOOD ORDERABLES Final Result Performing Organization Address [facility] de Phone Number [facility] [address] [place] [address] [place] [address] * (ABNORMAL) Iron profile w/ IBC (10/05/2024 9:15 AM DEMI CHEF) Pathologist [facility] Iron 92 50 - 150 mcg/dL Comment:Testing performed by : [address] [address] TIBC 225(L) 250 - 400 mcg/dL ISAAC Comment:Testing performed by : [address] [address] Transferrin saturation 41 20 - 50 % ISAAC Comment:Testing performed by : [address] [address] Blood 10/05/2024 9:15 AM DEMI CHEF 10/05/2024 9:56 AM DEMI CHEF Nena Cano LAB BLOOD ORDERABLES Final Result Performing Organization Address [facility] de Phone Number [facility] [address] [facility] [place] [place] [address] * (ABNORMAL) CBC with auto differential (10/05/2024 9:15 AM DEMI CHEF) WBC 5.7 3.8 - 9.9 K/cumm Comment:Testing performed by : [address] [address] Hgb 9.3(L) 13.0 - 17.5 g/dL ISAAC Comment:Testing performed by : [address] [address] Hct 30.3(L) 38.9 - 50.3 % ISAAC Comment:Testing performed by : [address] [address] Plt 294 150 - 400 K/cumm ISAAC Comment:Testing performed by : [address] [address] MPV 8.5(L) 9.1 - 12.3 fL ISAAC Comment:Testing performed by : [address] [address] RBC 3.03(L) 4.30 - 5.80 M/cumm ISAAC Comment:Testing performed by : [address] [address] MCV 100.0(H) 81.3 - 96.4 fL ISAAC Comment:Testing performed by : [address] [address] MCH 30.7 27.1 - 33.3 pg ISAAC Comment:Testing performed by : [address] [address] MCHC 30.7(L) 32.3 - 35.7 g/dL ISAAC Comment:Testing performed by : [address] [address] RDW CV 15.9(H) 11.1 - 14.9 % ISAAC Comment:Testing performed by : [address] [address] RDW SD 58.1(H) 35.7 - 48.1 fL ISAAC Comment:Testing performed by : [address] [address] NRBC abs 0.00 0.00 - 0.01 K/cumm ISAAC Comment:Testing performed by : [address] [address] Blood 10/05/2024 9:15 AM DEMI CHEF 10/05/2024 9:16 AM DEMI CHEF Nena Cano [employer] LAB BLOOD ORDERABLES Final Result Performing Organization Address [facility] Co de Phone Number ISAAC [address] [place] [address] * (ABNORMAL) Reticulocyte Count (10/05/2024 9:15 AM DEMI CHEF) Pathologist [facility] Retics, absolute 0.132(H) 0.020 - 0.087 M/cumm Comment:Testing performed by : [address] [address] Retics 4.3(H) 0.4 - 2.9 % ISAAC Comment:Testing performed by : [address] [address] Reticulocyte Hgb 32.2 30.5 - 38.0 pg ISAAC Comment:Testing performed by : [address] [address] Blood 10/05/2024 9:15 AM DEMI CHEF 10/05/2024 9:16 AM DEMI CHEF Nena Cano NP LAB BLOOD ORDERABLES Final Result Performing Organization Address [facility] Co de Phone Number DAYANA[address] [address] * Direct antiglobulin test (10/05/2024 9:15 AM DEMI CHEF) Pathologist [facility] RAMA Poly Interp Negative Comment:Testing performed by : [address] [address] Blood 10/05/2024 9:15 AM DEMI CHEF 10/05/2024 9:56 AM DEMI CHEF Nena Cano [employer]ATOR LAB BLOOD BANK TEST ORDERAB LES Final Result Performing Organization Address City/[facility] Co de Phone Number DAYANA[address] [place] [address] * Lactate dehydrogenase (LD) (10/05/2024 9:15 AM DEMI CHEF) Lactate dehydrogenase (LDH) 142 100 - 250 Units/L Comment:Testing performed by : [address] [address] Blood 10/05/2024 9:15 AM DEMI CHEF 10/05/2024 9:16 AM DEMI CHEF Nena Cano [employer]ATOR LAB BLOOD ORDERABLES Final Result Performing Organization Address [facility] Co de Phone Number [address] [place] [address] * Haptoglobin (10/05/2024 9:15 AM DEMI CHEF) [facility] Haptoglobin 160 30 - 200 mg/dL Blood 10/05/2024 9:15 AM DEMI CHEF 10/05/2024 12:52 PM DEMI CHEF Nena Cano [employer] LAB BLOOD ORDERABLES Final Result Performing Organization Address [facility] de Phone Number [address] [place] [address] * Ferritin (10/05/2024 9:15 AM DEMI CHEF) [facility] Ferritin 156 30 - 400 ng/mL Comment:Testing performed by : [address] [address] Blood 10/05/2024 9:15 AM DEMI CHEF 10/05/2024 9:56 AM DEMI CHEF Nena Cano [employer]ATOR LAB BLOOD ORDERABLES Final Result Performing Organization Address [facility] de Phone Number [address] [place] [address] * (ABNORMAL) Comprehensive metabolic panel (10/05/2024 9:15 AM DEMI CHEF) Pathologist [facility] Sodium 140 135 - 145 mmol/L Comment:Testing performed by : [address] [address] Potassium, pl 4.4 3.3 - 4.9 mmol/L [facility] Comment:Testing performed by : [address], [place]., [address] Chloride 106 97 - 110 mmol/L [facility] Comment:Testing performed by : [address], [place]., [address] CO2 26 22 - 32 mmol/L ISAAC Comment:Testing performed by : [address], [place]., [address] Anion gap 8 2 - 15 mmol/L [facility] Comment:Testing performed by : [address], [place]., [address] BUN 16 6 - 25 mg/dL [facility] Comment:Testing performed by : [address], [place]., [address] Creatinine 1.60(H) 0.80 - 1.30 mg/dL [facility] Comment:Testing performed by : [address] [address] Glucose 104 70 - 199 mg/dL [facility] Comment: Interpretive Data Fasting glucose >/= 126 mg/dl is diagnostic for diabetes. Fasting is defined as no caloric intake for at least 8 hours. Fasting glucose between 100 mg/dl to 125 mg/dl is diagnostic of prediabetes. In a patient with classic symptoms of hyperglycemia or hyperglycemic crisis, a random glucose >/= 200 mg/dl is diagnostic for diabetes. In the absence of unequivocal hyperglycemia, results should be confirmed by repeat testing. The classification and Diagnosis of Diabetes Diabetes Care 202; 46: S19-S40. Current interpretive data was last revised 2022. Testing performed by: [address] [address] Calcium 8.5 8.5 - 10.3 mg/dL [facility] Comment:Testing performed by : [address] [address] Bilirubin, total <0.2 0.1 - 1.2 mg/dL [facility] Comment:Testing performed by : [address] [address] Protein, pl 6.2(L) 6.5 - 8.5 g/dL ISAAC Comment:Testing performed by : [address] [address] Albumin 3.7 3.5 - 5.0 g/dL ISAAC Comment:Testing performed by : [address] [address] Alk phos 65 40 - 130 Units/L ISAAC Comment:Testing performed by : [address] [address] ALT 10 7 - 55 Units/L ISAAC Comment:Testing performed by : [address] [address] AST 16 10 - 50 Units/L ISAAC Comment:Testing performed by : [address] [address] Blood 10/05/2024 9:15 AM DEMI CHEF 10/05/2024 9:16 AM DEMI CHEF Nena Cano G[employer]OW [employer]ATOR LAB BLOOD ORDERABLES Final Result ISAAC [address] [facility] Department of Laboratories [place], [place] [id number] * (ABNORMAL) eGFR (09/19/2024 8:23 AM DEMI CHEF) eGFR 42(L) >=60 mL/min/1. 73 m2 Comment: Interpretive Data Reference Interval Normal >/= 90 mL/min/1.73m2 Mildly decreased* 60 - 89 mL/min/1.73m2 Mildly to moderately decreased 45 - 59 mL/min/1.73m2 Moderately to severely decreased 30 - 44 mL/min/1.73m2 Severely decreased 15 - 29 mL/min/1.73m2 Kidney Failure < 15 mL/min/1.73m2 *Relative to young adult level Estimated glomerular filtration rate is determined by the 2020 CKD-EPI equation recommended by the National Kidney Foundation (A Unifying Approach to GFR Estimation: Recommendations of the NKF-ASK Task Force on Reassessing the Inclusion of Race in Diagnosing Kidney Disease, JASN 2020). The CKD-EPI equation should not be used for patients with unstable renal function and has not been validated in children and those over 70. Current interpretive data was last reviewed 2021. Testing performed by: [address] [address] Blood 09/19/2024 8:23 AM DEMI CHEF 09/19/2024 8:27 AM DEMI CHEF Nena Cano G[employer] IRRIGATOR LAB BLOOD ORDERABLES Final Result [facility] [address] [facility] [place] [address] * Differential, auto (09/19/2024 8:23 AM DEMI CHEF) Neutrophil abs 3.1 1.5 - 6.5 K/cumm Comment:Testing performed by : [address] [address] Imm gran abs 0.0 0.0 - 0.1 K/cumm ISAAC Comment:Testing performed by : [address] [address] Lymphocyte abs 0.9 0.8 - 3.3 K/cumm ISAAC Comment:Testing performed by : [address] [address] Monocyte abs 0.6 0.2 - 0.8 K/cumm ISAAC Comment:Testing performed by : [address] [address] Eosinophil abs 0.3 0.0 - 0.5 K/cumm ISAAC Comment:Testing performed by : [address] [address] Basophil abs 0.1 0.0 - 0.1 K/cumm ISAAC Comment:Testing performed by : [address] [address] Neutrophil pct 62.2 % ISAAC Comment: Interpretive Data Percent cell count reference ranges are not reported, since discordance with absolute values may lead to misinterpretation of CBC data. Current Interpretive Data was last revised on 2018. Testing performed by: [address] [address] Imm gran pct 0.6 % [facility] Comment: Interpretive Data Percent cell count reference ranges are not reported, since discordance with absolute values may lead to misinterpretation of CBC data. Current Interpretive Data was last revised on 2018. Testing performed by: [address] [address] Lymphocyte pct 18.2 % [facility] Comment: Interpretive Data Percent cell count reference ranges are not reported, since discordance with absolute values may lead to misinterpretation of CBC data. Current Interpretive Data was last revised on 2018. Testing performed by: [address] [address] Monocyte pct 11.0 % [facility] Comment: Interpretive Data Percent cell count reference ranges are not reported, since discordance with absolute values may lead to misinterpretation of CBC data. Current Interpretive Data was last revised on 2018. Testing performed by: [address] [address] Eosinophil pct 6.8 % [facility] Comment: Interpretive Data Percent cell count reference ranges are not reported, since discordance with absolute values may lead to misinterpretation of CBC data. Current Interpretive Data was last revised on 2018. Testing performed by: [address] [address] Basophil pct 1.2 % [facility] Comment: Interpretive Data Percent cell count reference ranges are not reported, since discordance with absolute values may lead to misinterpretation of CBC data. Current Interpretive Data was last revised on 2018. Testing performed by: [address] [address] Blood 09/19/2024 8:23 AM DEMI CHEF 09/19/2024 8:28 AM DEMI CHEF us Nena Cano GRAVITY FLOW IRRIGATOR LAB BLOOD ORDERABLES Final Result ISAAC [address] [facility] Department of Laboratories [place], [place] [id number] * (ABNORMAL) Iron profile w/ IBC (09/19/2024 8:23 AM DEMI CHEF) [facility] Iron 107 50 - 150 mcg/dL Comment:Testing performed by : [address] [address] TIBC 249(L) 250 - 400 mcg/dL ISAAC SENRA Comment:Testing performed by : [address] [address] Transferrin saturation 43 20 - 50 % ISAAC SERNA Comment:Testing performed by : [address] [address] Blood 09/19/2024 8:23 AM DEMI CHEF 09/19/2024 10:15 AM DEMI CHEF Nena Cano GRAVITY FLOW IRRIGATOR LAB BLOOD ORDERABLES Final Result Performing Organization Address City/State/[facility] Co de Phone Number ISAAC [address] [facility] Department of Laboratories [place], [place] [phone] * (ABNORMAL) CBC with auto differential (09/19/2024 8:23 AM DEMI CHEF) [facility] WBC 5.0 3.8 - 9.9 K/cumm Comment:Testing performed by : [address] [address] Hgb 9.7(L) 13.0 - 17.5 g/dL ISAAC SERNA Comment:Testing performed by : [address] [address] Hct 31.5(L) 38.9 - 50.3 % ISAAC SERNA Comment:Testing performed by : [address] [address] Plt 272 150 - 400 K/cumm ISAAC SERNA Comment:Testing performed by : [address] [address] MPV 8.5(L) 9.1 - 12.3 fL ISAAC SERNA Comment:Testing performed by : [address] [address] RBC 3.20(L) 4.30 - 5.80 M/cumm ISAAC SERNA Comment:Testing performed by : [address] [address] MCV 98.4(H) 81.3 - 96.4 fL ISAAC Comment:Testing performed by : [address] [address] MCH 30.3 27.1 - 33.3 pg ISAAC SERNA Comment:Testing performed by : [address] [address] MCHC 30.8(L) 32.3 - 35.7 g/dL ISAAC Comment:Testing performed by : [address] [address] RDW CV 16.4(H) 11.1 - 14.9 % ISAAC SERNA Comment:Testing performed by : [address] [address] RDW SD 59.2(H) 35.7 - 48.1 fL ISAAC SERNA Comment:Testing performed by : [address] [address] NRBC abs 0.00 0.00 - 0.01 K/cumm ISAAC Comment:Testing performed by : [address] [address] Blood 09/19/2024 8:23 AM DEMI CHEF 09/19/2024 8:28 AM DEMI CHEF us Nena Cano GRAVITY FLOW IRRIGATOR LAB BLOOD ORDERABLES Final Result Performing Organization Address City/State/[facility] Co de Phone Number ISAAC [address] [facility] Department [place] [address] * (ABNORMAL) Reticulocyte Count (09/19/2024 8:23 AM DEMI CHEF) Retics, absolute 0.118(H) 0.020 - 0.087 M/cumm Comment:Testing performed by : [address] [address] Retics 3.7(H) 0.4 - 2.9 % ISAAC Comment:Testing performed by : [address] [address] Reticulocyte Hgb 31.7 30.5 - 38.0 pg ISAAC SERNA Comment:Testing performed by : [address] [address] Blood 09/19/2024 8:23 AM DEMI CHEF 09/19/2024 8:28 AM DEMI CHEF Nena Cano GRAVITY FLOW IRRIGATOR LAB BLOOD ORDERABLES Final Result Performing Organization Address City/[facility] Co de Phone Number [address] [address] * Ferritin (09/19/2024 8:23 AM DEMI CHEF) Pathologist [facility] Ferritin 52 30 - 400 ng/mL Comment:Testing performed by : [address] [address] Blood 09/19/2024 8:23 AM DEMI CHEF 09/19/2024 10:15 AM DEMI CHEF Nena Cano GRAVITY FLOW IRRIGATOR LAB BLOOD ORDERABLES Final Result Performing Organization Address [facility] de Phone Number [address] [address] * (ABNORMAL) Comprehensive metabolic panel (09/19/2024 8:23 AM DEMI CHEF) Pathologist [facility] Sodium 143 135 - 145 mmol/L Comment:Testing performed by : [address] [address] Potassium, pl 3.9 3.3 - 4.9 mmol/L ISAAC Comment:Testing performed by : [address] [address] Chloride 108 97 - 110 mmol/L ISAAC Comment:Testing performed by : [address] [address] CO2 26 22 - 32 mmol/L ISAAC Comment:Testing performed by : [address] [address] Anion gap 9 2 - 15 mmol/L ISAAC Comment:Testing performed by : [address] [address] BUN 15 6 - 25 mg/dL [facility] Comment:Testing performed by : [address] [address] Creatinine 1.70(H) 0.80 - 1.30 mg/dL ISAAC Comment:Testing performed by : [address] [address] Glucose 97 70 - 199 mg/dL [facility] Comment: Interpretive Data Fasting glucose >/= 126 mg/dl is diagnostic for diabetes. Fasting is defined as no caloric intake for at least 8 hours. Fasting glucose between 100 mg/dl to 125 mg/dl is diagnostic of prediabetes. In a patient with classic symptoms of hyperglycemia or hyperglycemic crisis, a random glucose >/= 200 mg/dl is diagnostic for diabetes. In the absence of unequivocal hyperglycemia, results should be confirmed by repeat testing. The classification and Diagnosis of Diabetes Diabetes Care 2021; 46: S19-S40. Current interpretive data was last revised 2022. Testing performed by: [address] [address] Calcium 8.5 8.5 - 10.3 mg/dL [facility] Comment:Testing performed by : [address] [address] Bilirubin, total 0.2 0.1 - 1.2 mg/dL [facility] Comment:Testing performed by : [address] [address] Protein, pl 6.4(L) 6.5 - 8.5 g/dL [facility] Comment:Testing performed by : [address] [address] Albumin 3.6 3.5 - 5.0 g/dL [facility] Comment:Testing performed by : [address] [address] Alk phos 77 40 - 130 Units/L ISAAC Comment:Testing performed by : [address] [address] ALT 8 7 - 55 Units/L ISAAC Comment:Testing performed by : [address], [address] AST 13 10 - 50 Units/L ISAAC SERNA Comment:Testing performed by : [facility], [address] [place] [address]., [address] Blood 09/19/2024 8:23 AM DEMI CHEF 09/19/2024 8:27 AM DEMI CHEF Nena Cano GRAVITY FLOW IRRIGATOR LAB BLOOD ORDERABLES Final Result Performing Organization Address City/State/[facility] Co nv Phone Number ISAAC [address] Department [place] [address] * Surgical pathology (09/15/2024 10:25 AM DEMI CHEF) Small bowel, biopsy 09/15/2024 10:25 AM DEMI CHEF 09/15/2024 11:23 AM DEMI CHEF Narrative 09/17/2024 8:09 PM DEMI CHEF [facility] Department of Pathology [address] [place] [id number] Note to Patients: This report may contain a detailed description of human tissue sent by a health care provider to the laboratory for pathologic evaluation. The content of this report is essential for diagnosis and may provide important critical findings. This information may be unfamiliar to patients to review without a medical professional present. It is advised that the patient review this report in the presence of a health care provider who can answer questions and explain the details. Final Report Patient Name: BRENNEN OLSON : 1950 (Age: 74) Gender: M Address: [address] [place] [address] Hospital #: [id number] Service: Gastro Location: Patient Type: [facility] OUTPATIENT Taken: 09/15/2024 Received: 09/15/2024 Accessioned: 09/15/2024 Reported: 09/17/2024 Physician(s): Kvng Giraldo M.D. Diagnosis: A. Small intestine, duodenum, endoscopic biopsy - No histopathologic abnormality - No evidence of celiac disease, with no villous blunting or increased intraepithelial lymphocytes - No acute or chronic duodenitis - No microorganisms identified B. Stomach, body and antrum, endoscopic biopsy - Antral mucosa with mild features of reactive gastropathy - Oxyntic mucosa with no histopathologic abnormality - No significant acute or chronic gastritis - No Helicobacter by H&E sections - No evidence of intestinal metaplasia, dysplasia, or malignancy C. Stomach, ulcer, endoscopic biopsy - Oxyntic mucosa with superficial ulcer/erosion, with fibrin exudate and acute inflammation - No significant chronic gastritis in background gastric mucosa - No Helicobacter pylori identified by H&E sections - No intestinal metaplasia, dysplasia, or malignancy D. Esophagus, distal, endoscopic biopsy - Intestinal metaplasia consistent with Miller's esophagus - Indefinite for low-grade dysplasia - No evidence of high-grade dysplasia or invasive carcinoma - Gastric mucosa with chronic inflammation - Squamous mucosa with reflux changes - See comment E. Esophagus, mid and proximal, biopsy - Squamous mucosa with mild chronic inflammation and reactive epithelial changes, consistent with reflux esophagitis - No evidence of eosinophilic esophagitis - No acute inflammation, ulcers, or microorganisms - No intestinal metaplasia, dysplasia, or malignancy Nato Donovan MD Report Electronically Reviewed and Signed Out By Nato Donovan MD 09/17/2024 20:09:07 Specimen(s) Received: A: Duodenal biopsy B: Gastric body and antrum biopsy C: Gastric ulcer biopsy D: Distal esophageal biopsy E: Mid and proximal esophageal biopsy Microscopic Description: Microscopic examination substantiates the above cited diagnosis. The distal esophageal biopsy demonstrates intestinal metaplasia consistent with Miller's esophagus. Some of the metaplastic glands demonstrate some atypia, features concerning for low-grade dysplasia. However, these are located deeper in the mucosa, and where the surface disease evaluable, we do not see similar changes. Thus, I believe it is most prudent to labeled this is indefinite for low-grade dysplasia. There are no features of high-grade dysplasia or invasive carcinoma. Microscopic examination substantiates the above cited diagnosis. The distal esophageal biopsy demonstrates intestinal metaplasia consistent with Miller's esophagus. Some of the metaplastic glands demonstrate some atypia, features concerning for low-grade dysplasia. However, these are located deeper in the mucosa, and where the surface disease evaluable, we do not see similar changes. Thus, I believe it is most prudent to labeled this is indefinite for low-grade dysplasia. There are no features of high-grade dysplasia or invasive carcinoma. Clinical History: The patient is a 74-year-old man with anemia, rectal bleeding and radiation proctitis. Operative procedure: Upper GI endoscopy. Gross Description Received in five formalin jars labeled with the patient's identifiers. A. Labeled duodenal biopsies rule out celiac disease and consists of three prado tissue fragments ranging from 0.2-0.3 cm. Entirely submitted. Labeled A1. Jar 0. B. Labeled gastric body and antrum biopsies rule out H pylori and consists of two prado-pink tissue fragments measuring 0.3 cm and 0.5 cm. Entirely submitted. Labeled B1. Jar 0. C. Labeled gastric ulcer biopsies and consists of a 0.5 cm prado-red tissue fragment, which is entirely submitted. Labeled C1. Jar 0. D. Labeled distal esophageal biopsies rule out Barretts and consists of two prado tissue fragments each measuring 0.2 cm. Entirely submitted. Labeled D1. Jar 0. E. Labeled mid and proximal esophageal biopsies rule out EOE and consists of two prado-white tissue fragments each measuring 0.3 cm. Entirely submitted. Labeled E1. Jar 0. [facility]/09/15/2024 13:46 SHAD Gonzalez, PA (ASCP) Microscopic slide review and interpretation for this case was performed at [facility], Department of Surgical Pathology, [address] [facility] [address] [place] [id number], [place] [address] CLIA # [id number] us Notinfile Unknown LAB PATHOLOGY ORDERABLES Final Result * EGD (09/15/2024 10:19 AM DEMI CHEF) Anatomical Region Laterality Modality Other Narrative Procedure Note Lucio Rosas MD - 09/15/2024 10:19 AM [facility]ST [facility] GI ENDOSCOPY Patient Name: Brennen Olson Procedure Date: 09/15/2024 10:19AM Date of : 1950 Admit Type: Outpatient Age: 74 Gender: Male Attending MD: Lucio Rosas M.D. Room: [facility] ENDOSCOPY ROOM 04 Note Status: Finalized Procedure: Upper GI endoscopy Indications: Iron deficiency anemia Referring MD: Providers: Lucio Rosas M.D. Medicines: Monitored Anesthesia Care Complications: No immediate complications. Procedure: Pre-Anesthesia Assessment: - Prior to the procedure, a History and Physicalwas performed, and patient medications and allergieswere reviewed. The risks and benefits of the procedureand the sedation options and risks were discussed withthe patient. All questions were answered and informed consent was obtained. Patient identification and proposed procedure were verified. After reviewingthe risks and benefits, the patient was deemed in satisfactory condition to undergo the procedure.The anesthesia plan was to use monitored anesthesiacare (MAC). Immediately prior to administration of medications, the patient was re-assessed foradequacy to receive sedatives. The heart rate, respiratory rate, oxygen saturations, blood pressure, adequacyof pulmonary ventilation, and response to care were monitored throughout the procedure. The physical status of the patient was re-assessed after the procedure. The benefits, risks, and alternatives to theprocedure and sedation were discussed and informed consentwas obtained. The scope was passed under direct vision. The GIF-H180 upper endoscope was introduced through the mouth, and advanced to the second part of duodenum. The upper GI endoscopy was accomplished without difficulty. The patient tolerated the procedure well. Findings: The Z-line was irregular and was found in the distal esophagus. Thiswas biopsied with a cold forceps for evaluation to rule out Miller's Esophagus. One benign-appearing, intrinsic mild stenosis was found in the distal esophagus. The stenosis was traversed. A TTS dilator was passedthrough the scope. Dilation with a 15-16.5-18 mm balloon dilator wasperformed to 18 mm. Biopsy with a cold forceps in the proximal esophagus and in the mid esophagus was performed for evaluation of eosinophilic esophagitis. Mild inflammation characterized by erythema was found in the stomach. Biopsies were taken with a cold forceps for Helicobacter pyloritesting. One non-bleeding linear gastric ulcer with no stigmata of bleedingwas found in the gastric body. The lesion was 15 mm in largest dimension. Biopsies were taken with a cold forceps for histology. The examined duodenum was normal. Biopsies for histology were takenwith a cold forceps for evaluation of celiac disease. The cardia and gastric fundus were normal on retroflexion. The exam was otherwise without abnormality. Impression: - Z-line irregular, in the distal esophagus.Biopsied. - Benign-appearing esophageal stenosis. Dilated. - Gastritis. Biopsied. - Non-bleeding gastric ulcer with no stigmata of bleeding. Biopsied. - Normal examined duodenum. Biopsied. - The examination was otherwise normal. - Biopsies were performed in the proximal esophagus and in the mid esophagus. Recommendation: - Patient has a contact number available for emergencies. The signs and symptoms of potential delayed complications were discussed with thepatient. Return to normal activities tomorrow. Written discharge instructions were provided to thepatient. - Start pantoprazole 40 mg p.o. b.i.d.. - Await pathology results. - Repeat upper endoscopy in 2 months to checkhealing of gastric ulcer. - Schedule colonoscopy for further evaluation of rectal bleeding. - GERD RECOMMENDATIONS given include: anti-reflux maneuvers, avoid acidic foods like oranges and tomatoes, avoidance of spicy foods, avoid eating3-4 hours before bed, elevation of the head of the bed, and weight loss Lucio Rosas M.D. Lucio Rosas M.D. 09/15/2024 10:41:31 AM . 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
--- OUTSIDE RECORDS SUMMARY | 2024-12-07 16:20 | XMS_ITS | Clinical Summary ---
Author Organization [facility] Address [address] [place] [address] Phone Care Team Providers Care Hospice Art Therapist Name Role Phone Jas Alcala MD Primary Care Provider [phone] Allergies Active Allergy Reactions Criticality Noted Date Comments Amoxicillin Other (see Comments) 11/09/2019 Celecoxib Other (see Comments) 11/09/2019 Pregabalin Other (see Comments) 11/09/2019 Medications ELIQUIS 5 MG Tablet 2 times daily. 0 Active carvedilol (COREG) 3.125 MG Tablet daily. Active furosemide (LASIX) 20 MG Tablet 20 mg daily. 0 Active gabapentin (NEURONTIN) 100 MG Capsule gabapentin 100 mg capsule Active Active Problems Problem Noted Date Diagnosed Date Recurrent deep venous thrombosis 01/18/2020 Chronic deep vein thrombosis (DVT) of femoral vein of both lower extremities 11/09/2019 Family History Medical History Relation Name Comments Cancer Father Cancer Mother Relation Name Status Comments Father blood clots Mother Social History Tobacco Use Types Packs/Day Years Used Date Smoking Tobacco: Former Cigarettes 1 40 Smokeless Tobacco: Never Alcohol Use Standard Drinks/Week Comments Yes 0 (1 standard drink = 0.6 oz pur e alcohol) occasionally Sex and Gender Information Value Date Recorded Sex Assigned at Not on file Legal Sex Male 3:47 PM 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 Gender Identity Not on file Sexual Orientation Not on file Last Filed Vital Signs Vital Sign Reading Time Taken Comments Blood Pressure 142/62 12/29/2019 2:51 PM 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 Pulse 62 12/29/2019 2:51 PM 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 Temperature 36.4 C (97.6 F) 12/29/2019 2:51 PM 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 Respiratory Rate 18 12/29/2019 2:51 PM 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 Oxygen Saturation 99% 12/29/2019 2:51 PM 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 Inhaled Oxygen Concentration - - Weight 137 kg (302 lb) 12/29/2019 2:51 PM 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 Height 182.9 cm (6') 12/29/2019 2:51 PM 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 Body Mass Index 40.96 12/29/2019 2:51 PM 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 Plan of Treatment Health Maintenance Due Date Last Done Comments Hepatitis C Virus (HCV) Screening 1950 TdaP Immunization 1950 Colonoscopy 1995 Colorectal Cancer Screening 1995 Cologuard 01/18/2000 Immunochemical Fecal Occult Blood 01/18/2000 Pneumococcal Immunization (50+ years) (1 of 1 - PCV) 01/18/2000 Zoster Immunization (1 of 2) 01/18/2000 Influenza Immunization (#1) 07/03/202409/02, 09/05/2018, 10/15/2017, Additional history exists SARS-COV-2 Immunization ( season) 2024 11/05/2021, 10/21/2021, 01/01/2021, Additional history exists Respiratory Syncytial Virus (RSV) Immunization (Adult) (1 - 1-dose 75+ series) 2025 Hepatitis B Immunization Aged Out No longer eligible based on patient's age to complete this topic Meningococcal Immunization (ACWY) Aged Out No longer eligible based on patient's age to complete this topic Rotavirus Immunization Aged Out No lo nger eligible based on patient's age to complete this topic Care Teams Hospice Art Therapist Relationship Specialty Start Date End Date Jas Alcala MD PCP - General Internal Medicine 11/09/19
--- OUTSIDE RECORDS SUMMARY | 2024-12-07 16:21 | XMS_ITS | Clinical Summary ---
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 -Pathology discuss in detail and all questions were answered -Refer for EUS -Refer to Oncology and Cardiothoracic surgery Miller's esophagus with high grade dysplasia Assessment & Plan (11/25/2024 9:41 AM ADULT DAY CARE WORKER): EGD September 2024 with irregular Z-line and gastric ulcers. Pathology with Barretts esophagus, indefinite for dysplasia. Repeat EGD November 2024 with Barretts esophagus, pathology with high-grade dysplasia. -Continue pantoprazole 40 mg p.o. b.i.d. History of colon polyps 11/25/2024 Assessment & Plan (11/25/2024 9:42 AM ADULT DAY CARE WORKER): Colonoscopy November 2024 with multiple tubular adenomas. -Repeat colonoscopy November 2027 Gastric ulcer 09/23/2024 Anemia due to blood loss 09/23/2024 Rectal bleeding 08/22/2024 Radiation proctitis 08/22/2024 Assessment & Plan (11/25/2024 9:41 AM ADULT DAY CARE WORKER): Colonoscopy November 2024 with severe radiation proctitis status post APC. -Consider flex sig with APC, patient advised to call office if rectal bleeding gets worse Eosinophilia 02/22/2024 Iron deficiency anemia, unspecified 02/22/2024 Anemia 02/22/2024 VT (ventricular tachycardia) 05/09/2022 Overview (05/09/2022): Added automatically from request for surgery [id number] Lower urinary tract symptoms (LUTS) 05/24/2020 Malignant neoplasm of prostate 04/25/2013 Encounters Date Type Department Care Team Description 12/07/19 12:00 PM ADULT DAY CARE WORKER [facility] at [address] [phone] Anemia, unspecified type (Primary Dx) 12/07/19 9:00 AM ADULT DAY CARE WORKER Lab [facility] at [address] [address] Anemia, unspecified type 11/30/19 9:00 AM ADULT DAY CARE WORKER Lab [facility] at [address] [address] Anemia, unspecified type 11/30/19 Orders Only [facility] Hematology [address] [facility] [address] [place] [phone] Nena Cano NP Anemia, unspecified type (Primary Dx) 11/30/19 Telephone [facility] at [address] [place] [phone] Kaycee Chanel RN 11/28/19 Telephone [facility] Surgery [address] [place] [address] [place] [phone] Reinaldo Little RMA 11/28/19 Orders Only [facility] Surgery [address] [place] [address] [place] [phone] Charlie Juarez MD Malignant neoplasm of lower third of esophagus (CMS/HCC) (HCC) (Primary Dx) 11/25/19 9:15 AM ADULT DAY CARE WORKER Office Visit [facility] G[facility] at [address] [phone] Lucio Rosas MD Malignant neoplasm of lower third of esophagus (CMS/HCC) (HCC) (Primary Dx); Miller's esophagus with high grade dysplasia; Radiation proctitis; History of colon polyps 11/25/19 Telephone [facility] Special[facility] Services [address] [place] [address] Ale Akhtar RN GI Preprocedure 11/24/19 10:00 AM ADULT DAY CARE WORKER Infusion [facility] at [address] [place] [phone] Iron deficiency anemia, unspecified iron deficiency anemia type (Primary Dx); Anemia, unspecified type 11/22/19 Telephone [facility] at [address] [place] [address] Lucio Rosas MD 11/17/19 9:33 AM ADULT DAY CARE WORKER Anesthesia Event [facility] GI Lab [address] [place] [address] Natalia Sanchez MD 11/17/19 9:00 AM ADULT DAY CARE WORKER - 11/17/19 9:30 AM ADULT DAY CARE WORKER Surgery [facility] GI Lab [address] [place] [address] Lucio Rosas MD COLON TUMOR ABLATION WITH DILATION 11/17/19 7:45 AM ADULT DAY CARE WORKER - 11/17/19 11:40 AM ADULT DAY CARE WORKER Hospital Encounter [facility] GI Lab [address] [place] [address] Lucio Rosas MD Gastric ulcer, unspecified chronicity, unspecified whether gastric ulcer hemorrhage or perforation present; Anemia, unspecified type; Anemia due to blood loss Discharge Disposition: Discharge to home or self care 11/17/19 Telephone [facility] Hematology [address] [place] [phone] Inez Rao 11/17/19 Orders Only [facility] Hematology [address] [place] [phone] Inez Rao Anemia, unspecified type (Primary Dx) 11/16/19 12:00 PM ADULT DAY CARE WORKER Infusion [facility] at [address] [place] [phone] Anemia, unspecified type (Primary Dx) 11/16/19 9:00 AM ADULT DAY CARE WORKER Lab [facility] at [address] [address] Anemia, unspecified type 11/03/19 9:00 AM ADULT DAY CARE WORKER Lab [facility] at [address] [address] Anemia, unspecified type 11/03/19 Telephone [facility] at [address] [place] [phone] Lalitha Salcedo, WILBER 11/03/19 Orders Only [facility] Hematology [address] [place] [address] [address] [place] [phone] Inez Rao Anemia, unspecified type (Primary Dx) 10/31/20 12:45 PM ADULT DAY CARE WORKER Infusion [facility] at [address] [phone] Anemia, unspecified type (Primary Dx) 10/28/20 12:00 PM ADULT DAY CARE WORKER Infusion [facility] at [address] [phone] Anemia, unspecified type (Primary Dx) 10/28/20 9:00 AM ADULT DAY CARE WORKER Lab [facility] at [address] [address] Anemia, unspecified type 10/28/20 Orders Only [facility] Hematology [address] [place] [phone] Gertrude Zhang Anemia, unspecified type (Primary Dx) 10/19/20 9:00 AM ADULT DAY CARE WORKER Lab [facility] at [address] [address] Anemia, unspecified type 10/19/20 Orders Only [facility] Hematology [address] [place] [phone] Inez Rao Anemia, unspecified type (Primary Dx) 10/19/20 Telephone [facility] at [address] [phone] Francie Hassan, WILBER 10/05/20 9:00 AM ADULT DAY CARE WORKER Lab [facility] at [address] [address] Anemia, unspecified type; History of pulmonary embolism 10/05/20 Telephone [facility] at [address] [phone] Kaycee Chanel, RN 09/23/20 Orders Only [facility] at [address] [place] [address] Lucio Rosas MD Gastric ulcer, unspecified chronicity, unspecified whether gastric ulcer hemorrhage or perforation present (Primary Dx); Anemia, unspecified type; Anemia due to blood loss 09/21/20 Telephone [facility] at [address] [place] [phone] Lucio Rosas MD 09/20/20 Documentation [facility] at [address] [phone] Lucio Rosas MD 09/19/20 9:00 AM ADULT DAY CARE WORKER Infusion [facility] at [address] [phone] Iron deficiency anemia, unspecified iron deficiency anemia type (Primary Dx); Anemia, unspecified type 09/19/20 8:15 AM ADULT DAY CARE WORKER Lab [facility] at [address] [address] Anemia, unspecified type 09/19/20 Orders Only [facility]ematology [address] [place] [phone] Gertrude Zhang Lisa Anemia, unspecified type (Primary Dx); History of pulmonary embolism 09/19/20 Telephone [facility] Hematology [address] [place] [phone] Inez Rao 09/15/20 10:30 AM ADULT DAY CARE WORKER - 09/15/20 11:00 AM ADULT DAY CARE WORKER Surgery [facility] GI Lab [address] [place] [address] Lucio Rosas MD ESOPHAGOGASTRODUODENOSCOPY BALLOON DILATION <30MM 09/15/20 10:17 AM ADULT DAY CARE WORKER Anesthesia Event [facility] GI Lab [address] [place] [address] Rai Golden MD Morris, Mark C., MD 09/15/20 9:23 AM ADULT DAY CARE WORKER - 09/15/20 12:02 PM ADULT DAY CARE WORKER Hospital Encounter [facility] GI Lab [address] [place] [address] Lucio Rosas MD Anemia, unspecified type; Rectal bleeding; Radiation proctitis Discharge Disposition: Discharge to home or self care 09/15/20 24 Orders Only [facility] [place], [place] Unknown, Notinfile 09/12/20 24 Orders Only [facility] H[facility] [address] [facility] [address] [place] [phone] Inez Rao Anemia, unspecified type (Primary Dx) 09/06/20 Orders Only [facility] [address] [place] [address] Gosia Gagnon MD Anemia, unspecified type from Last 3 Months Immunizations Name Administration Dates Next Due Influenza, Unspecified 08/02/2018 Surgical History Surgery Date Site/Laterality Comments NECK SURGERY Neck Surgery - (Added by TW Conv) BACK SURGERY Back Surgery - (Added by TW Conv) lower back, metal GALLBLADDER SURGERY Cholecystotomy - (Added by TW Conv) VASECTOMY Surgery Vas Deferens Vasectomy - (Added by TW Conv) RADICAL PROSTATECTOMY Prostatect Retropubic Radical W/ Nerve Sparing Laparoscopic - 05/03/2013 (Added by Conv) TONSILLECTOMY Tonsillectomy - (Added by TW Conv) AK REPAIR FIRST ABDOMINAL WA LL HERNIA Ventral Hernia Repair - 11/2013 (Added by TW Conv) w/poss mesh CATARACT EXTRACTION, BILATERAL COLONOSCOPY URETHRAL DILATION N/A UPPER GASTROINTESTINAL ENDOSCOPY Medical History Medical History Date Comments Chronic bronchitis with productive mucopurulent cough (HCC) Prostate cancer (HCC) Hepatitis A Neuropathy (CMS/HCC) 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[place] (myocardial infarction) (HCC) 2019 PE (pulmonary thromboembolism) (CMS/HCC) (HCC) 2 020 GERD (gastroesophageal reflux disease) Chronic kidney disease stage 3 Neck pain Obesity Full dentures upper and lower Wears glasses Colon polyp Dysphagia Atrial fibrillation (CMS/HCC) (HCC) Family History Medical History Relation Name Comments Pancreatic cancer Father Breast cancer Mother Breast Cancer - (Added by TW Conv) Breast cancer Other Breast Cancer - (Added by TW Conv) Relation Name Status Comments Father Mother Other Social History Tobacco Use Types Packs/Day Years Used Date Smoking Tobacco: Former Cigarettes 1 25 1 995 - 2020 Smokeless Tobacco: Never Tobacco Cessation:Counseling Given: Not [...] on file Legal Sex Male 9:38 AM ADULT DAY CARE WORKER Gender Identity Not on file Sexual Orientation Not on file 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 Not on file Not on file Not on file Retired Not on file Not on file Not on file Obstetrics History Last Filed Vital Signs Vital Sign Reading Time Taken Comments Blood Pressure 117/69 12/07/2024 3:25 PM ADULT DAY CARE WORKER Pulse 55 12/07/2024 3:25 PM ADULT DAY CARE WORKER Temperature 36.4 C (97.5 F) 12/07/2024 3:25 PM ADULT DAY CARE WORKER Respiratory Rate 18 12/07/2024 3:25 PM ADULT DAY CARE WORKER Oxygen Saturation 98% 12/07/2024 3:25 PM ADULT DAY CARE WORKER Inhaled Oxygen Concentration - - Weight 127.1 kg (280 lb 3.2 oz) 025 12:16 PM ADULT DAY CARE WORKER w/shoes Height 181.6 cm (5' 11.5 ) 11/25/2024 9:14 AM CS T Body Mass Index 38.54 11/25/2024 9:14 AM ADULT DAY CARE WORKER Plan of Treatment Upcoming Encounters Date Type Department Care Team (Latest Contact Info) Description 12/13/2024 11:00 AM ADULT DAY CARE WORKER Hospital Encounter [facility] [address] [facility] [address] [place] [address] Nikolay Dunn MD [address] [place] [address] Malignant neoplasm of lower third of esophagus (CMS/HCC) (HCC) 12/13/2024 11:00 AM ADULT DAY CARE WORKER - 12/13/2024 12:00 PM ADULT DAY CARE WORKER Surgery [facility] [address] [place] [address] Nikolay Dunn MD [address] [place] [address] EGD/EUS/EMR SC/OA/Interventiona l Scheduled Procedures Name Priority Associated Diagnoses Date/Ti me ESOPHAGOGASTRODUODENOSCOPY Malignant neoplasm of lower third of esophagus (CMS/HCC) (HCC) 12/13/2024 11:00 AM ADULT DAY CARE WORKER Health Maintenance Due Date Last Done Comments Depression Screening 1950 Hepatitis C Screening 1950 Pneumococcal vaccine 65+ (1 of 2 - PCV) 01/18/1956 DTaP/Tdap/Td Vaccine (1 - Tdap) 1961 Hepatitis B Screening 01/18/1968 Lung Cancer Screening 01/18/2000 Zoster Vaccine (1 of 2) 01/18/2000 Abdominal Aortic Aneurysm (A AA) Screen 2015 Well Visit 65+ 2015 Covid-19 Vaccine (5 - 2023-2 5 season) 2024 11/05/2021, 10/21/2021, 01/01/2021, Additional history exists Fall Risk Assessment 11/17/2025 11/17/2024 Colon Cancer Screening-Colonoscopy 11/17/2027 11/17/2024 Influenza Vaccine Completed 07/12/2024, , 09/17/2019, Additional history exists Colon Cancer Screening-CT Colonography Discontinued 11/17/2024 Colon Cancer Screening-DNA Stool Discontinued 11/17/19 Colon Cancer Screening-FIT Discontinued 11/17/2024 Colon Cancer Screening-Sigmoidoscopy Discontinued 11/17/2024 Medical Devices Implanted Type Area Senior Computer Specialist Device Identifier Shelf Expiration Date Model / Serial / Lot Screws And Rods Spine Lumbar Procedures Procedure Name Priority Date/Time Associated Diagnosis Comments TRANSFUSE RED BLOOD CELLS Timed 2024 12:56 PM ADULT DAY CARE WORKER Anemia, unspecified type PREPARE RBC Routine 12/07/2024 10:02 AM ADULT DAY CARE WORKER Anemia, unspecified type CROSSMATCH Routine 12/07/2024 9:29 AM ADULT DAY CARE WORKER Anemia, unspecified type EGFR Routine 12/07/2024 9:29 AM ADULT DAY CARE WORKER Anemia, unspecified type DIFFERENTIAL AUTO Routine 12/07/2024 9:29 AM ADULT DAY CARE WORKER Anemia, unspecified type ANTIBODY SCREEN Routine 12/07/2024 9:29 AM ADULT DAY CARE WORKER Anemia, unspecified type ABO/RH Routine 12/07/2024 9:29 AM ADULT DAY CARE WORKER Anemia, unspecified type TYPE AND SCREEN Routine 12/07/2024 9:29 AM ADULT DAY CARE WORKER Anemia, unspecified type CBC WITH AUTO DIFFERENTIAL Routine 12/07 9:29 AM ADULT DAY CARE WORKER Anemia, unspecified type COMPREHENSIVE METABOLIC PANEL Routine 9:29 AM ADULT DAY CARE WORKER Anemia, unspecified type FERRITIN Routine 12/07/2024 9:29 AM ADULT DAY CARE WORKER Anemia, unspecified type RETICULOCYTES Routine 12/07/2024 9:29 AM ADULT DAY CARE WORKER Anemia, unspecified type IRON PROFILE W/ IBC Routine 12/07/2024 9:29 AM ADULT DAY CARE WORKER Anemia, unspecified type EGFR Routine 11/30/2024 9:11 AM ADULT DAY CARE WORKER Anemia, unspecified type DIFFERENTIAL AUTO Routine 11/30/2024 9:11 AM ADULT DAY CARE WORKER Anemia, unspecified type CBC WITH AUTO DIFFERENTIAL Routine 11/30 9:11 AM ADULT DAY CARE WORKER Anemia, unspecified type COMPREHENSIVE METABOLIC PANEL Routine 9:11 AM ADULT DAY CARE WORKER Anemia, unspecified type FERRITIN Routine 11/30/2024 9:11 AM ADULT DAY CARE WORKER Anemia, unspecified type RETICULOCYTES Routine 11/30/2024 9:11 AM ADULT DAY CARE WORKER Anemia, unspecified type IRON PROFILE W/ IBC Routine 11/30/2024 9:11 AM ADULT DAY CARE WORKER Anemia, unspecified type SURGICAL PATHOLOGY Routine 11/17/2024 9:39 AM ADULT DAY CARE WORKER Gastric ulcer, unspecified chronicity, unspecified whether gastric ulcer hemorrhage or perforation present Anemia, unspecified type Anemia due to blood loss EGD 11/17/2024 9:34 AM ADULT DAY CARE WORKER COLONOSCOPY 11/17/2024 9:34 AM ADULT DAY CARE WORKER ENDO ADD ON COLON REMOVAL SNARE 11/17/2024 9:23 AM ADULT DAY CARE WORKER Gastric ulcer, unspecified chronicity, unspecified whether gastric ulcer hemorrhage or perforation present Anemia, unspecified type Anemia due to blood loss COLON TUMOR ABLATION WITH DILATION 11/17/2024 9:23 AM ADULT DAY CARE WORKER Gastric ulcer, unspecified chronicity, unspecified whether gastric ulcer hemorrhage or perforation present Anemia, unspecified type Anemia due to blood loss ENDO ADD ON COLON BIOPSY 025 9:23 AM ADULT DAY CARE WORKER Gastric ulcer, unspecified chronicity, unspecified whether gastric ulcer hemorrhage or perforation present Anemia, unspecified type Anemia due to blood loss ESOPHAGOGASTRODUODENOSCOPY BIOPSY 11/17/2024 9:23 AM ADULT DAY CARE WORKER Gastric ulcer, unspecified chronicity, unspecified whether gastric ulcer hemorrhage or perforation present Anemia, unspecified type Anemia due to blood loss ECG 12-LEAD STAT 11/17/2024 9:01 AM ADULT DAY CARE WORKER POC BLOOD GAS AND CHEMISTRIE S, VENOUS Routine 11/17/2024 8:49 AM ADULT DAY CARE WORKER PROTIME-INR STAT 11/17/2024 8:46 AM ADULT DAY CARE WORKER TRANSFUSE RED BLOOD CELLS Timed 2024 12:03 PM ADULT DAY CARE WORKER Anemia, unspecified type PREPARE RBC Routine 11/16/2024 10:29 AM ADULT DAY CARE WORKER Anemia, unspecified type CROSSMATCH Routine 11/16/2024 9:06 AM ADULT DAY CARE WORKER Anemia, unspecified type EGFR Routine 11/16/2024 9:06 AM ADULT DAY CARE WORKER Anemia, unspecified type DIFFERENTIAL AUTO Routine 11/16/2024 9:06 AM ADULT DAY CARE WORKER Anemia, unspecified type ANTIBODY SCREEN Routine 11/16/2024 9:06 AM ADULT DAY CARE WORKER Anemia, unspecified type ABO/RH Routine 11/16/2024 9:06 AM ADULT DAY CARE WORKER Anemia, unspecified type TYPE AND SCREEN Routine 11/16/2024 9:06 AM ADULT DAY CARE WORKER Anemia, unspecified type CBC WITH AUTO DIFFERENTIAL Routine 11/16 9:06 AM ADULT DAY CARE WORKER Anemia, unspecified type COMPREHENSIVE METABOLIC PANEL Routine 9:06 AM ADULT DAY CARE WORKER Anemia, unspecified type FERRITIN Routine 11/16/2024 9:06 AM ADULT DAY CARE WORKER Anemia, unspecified type RETICULOCYTES Routine 11/16/2024 9:06 AM ADULT DAY CARE WORKER Anemia, unspecified type IRON PROFILE W/ IBC Routine 11/16/2024 9:06 AM ADULT DAY CARE WORKER Anemia, unspecified type EGFR Routine 11/03/2024 9:43 AM ADULT DAY CARE WORKER Anemia, unspecified type DIFFERENTIAL AUTO Routine 11/03/2024 9:43 AM ADULT DAY CARE WORKER Anemia, unspecified type CBC WITH AUTO DIFFERENTIAL Routine 11/03 9:43 AM ADULT DAY CARE WORKER Anemia, unspecified type COMPREHENSIVE METABOLIC PANEL Routine 9:43 AM ADULT DAY CARE WORKER Anemia, unspecified type FERRITIN Routine 11/03/2024 9:43 AM ADULT DAY CARE WORKER Anemia, unspecified type RETICULOCYTES Routine 11/03/2024 9:43 AM ADULT DAY CARE WORKER Anemia, unspecified type IRON PROFILE W/ IBC Routine 11/03/2024 9:43 AM ADULT DAY CARE WORKER Anemia, unspecified type TRANSFUSE RED BLOOD CELLS Timed 2023 1:28 PM ADULT DAY CARE WORKER Anemia, unspecified type PREPARE RBC Routine 10/28/2024 2:35 PM ADULT DAY CARE WORKER Anemia, unspecified type TRANSFUSE RED BLOOD CELLS Timed 2023 11:47 AM ADULT DAY CARE WORKER Anemia, unspecified type PREPARE RBC STAT 10/28/2024 9:40 AM ADULT DAY CARE WORKER Anemia, unspecified type CROSSMATCH Routine 10/28/2024 9:01 AM ADULT DAY CARE WORKER Anemia, unspecified type EGFR Routine 10/28/2024 9:01 AM ADULT DAY CARE WORKER Anemia, unspecified type DIFFERENTIAL AUTO Routine 10/28/2024 9:01 AM ADULT DAY CARE WORKER Anemia, unspecified type ANTIBODY SCREEN Routine 10/28/2024 9:01 AM ADULT DAY CARE WORKER Anemia, unspecified type ABO/RH Routine 10/28/2024 9:01 AM ADULT DAY CARE WORKER Anemia, unspecified type TYPE AND SCREEN Routine 10/28/2024 9:01 AM ADULT DAY CARE WORKER Anemia, unspecified type CBC WITH AUTO DIFFERENTIAL Routine 10/28 9:01 AM ADULT DAY CARE WORKER Anemia, unspecified type COMPREHENSIVE METABOLIC PANEL Routine 9:01 AM ADULT DAY CARE WORKER Anemia, unspecified type FERRITIN Routine 10/28/2024 9:01 AM ADULT DAY CARE WORKER Anemia, unspecified type RETICULOCYTES Routine 10/28/2024 9:01 AM ADULT DAY CARE WORKER Anemia, unspecified type IRON PROFILE W/ IBC Routine 10/28/2024 9:01 AM ADULT DAY CARE WORKER Anemia, unspecified type EGFR Routine 10/19/2024 8:53 AM ADULT DAY CARE WORKER Anemia, unspecified type DIFFERENTIAL AUTO Routine 10/19/2024 8:53 AM ADULT DAY CARE WORKER Anemia, unspecified type CBC WITH AUTO DIFFERENTIAL Routine 10/19 8:53 AM ADULT DAY CARE WORKER Anemia, unspecified type COMPREHENSIVE METABOLIC PANEL Routine 8:53 AM ADULT DAY CARE WORKER Anemia, unspecified type FERRITIN Routine 10/19/2024 8:53 AM ADULT DAY CARE WORKER Anemia, unspecified type RETICULOCYTES Routine 10/19/2024 8:53 AM ADULT DAY CARE WORKER Anemia, unspecified type IRON PROFILE W/ IBC Routine 10/19/2024 8:53 AM ADULT DAY CARE WORKER Anemia, unspecified type EGFR Routine 10/05/2024 9:15 AM ADULT DAY CARE WORKER History of pulmonary embolism Anemia, unspecified type DIFFERENTIAL AUTO Routine 10/05/2024 9:15 AM ADULT DAY CARE WORKER History of pulmonary embolism Anemia, unspecified type DIRECT ANTIGLOBULIN TEST Routine 9:15 AM ADULT DAY CARE WORKER History of pulmonary embolism Anemia, unspecified type HAPTOGLOBIN Routine 10/05/2024 9:15 AM ADULT DAY CARE WORKER History of pulmonary embolism Anemia, unspecified type LACTATE DEHYDROGENASE Routine 10/05/2024 9:15 AM ADULT DAY CARE WORKER History of pulmonary embolism Anemia, unspecified type IRON PROFILE W/ IBC Routine 10/05/2024 9:15 AM ADULT DAY CARE WORKER History of pulmonary embolism Anemia, unspecified type RETICULOCYTES Routine 10/05/2024 9:15 AM ADULT DAY CARE WORKER History of pulmonary embolism Anemia, unspecified type FERRITIN Routine 10/05/2024 9:15 AM ADULT DAY CARE WORKER History of pulmonary embolism Anemia, unspecified type COMPREHENSIVE METABOLIC PANEL Routine 9:15 AM ADULT DAY CARE WORKER History of pulmonary embolism Anemia, unspecified type CBC WITH AUTO DIFFERENTIAL Routine 10/05 9:15 AM ADULT DAY CARE WORKER History of pulmonary embolism Anemia, unspecified type EGFR Routine 09/19/2024 8:23 AM ADULT DAY CARE WORKER Anemia, unspecified type DIFFERENTIAL AUTO Routine 09/19/2024 8:23 AM ADULT DAY CARE WORKER Anemia, unspecified type CBC WITH AUTO DIFFERENTIAL Routine 09/19 8:23 AM ADULT DAY CARE WORKER Anemia, unspecified type COMPREHENSIVE METABOLIC PANEL Routine 8:23 AM ADULT DAY CARE WORKER Anemia, unspecified type FERRITIN Routine 09/19/2024 8:23 AM ADULT DAY CARE WORKER Anemia, unspecified type RETICULOCYTES Routine 09/19/2024 8:23 AM ADULT DAY CARE WORKER Anemia, unspecified type IRON PROFILE W/ IBC Routine 09/19/2024 8:23 AM ADULT DAY CARE WORKER Anemia, unspecified type SURGICAL PATHOLOGY Routine 09/15/2024 10:25 AM ADULT DAY CARE WORKER EGD 09/15/2024 10:19 AM ADULT DAY CARE WORKER ESOPHAGOGASTRODUODENOSCOPY BALLOON DILATION <30MM 09/15/2024 10:18 AM ADULT DAY CARE WORKER Anemia, unspecified type Rectal bleeding Radiation proctitis ENDO ADD ON ESOPHAGOGASTRODUODENOSCOPY BIOPSY 09/15/2024 10:18 AM ADULT DAY CARE WORKER Anemia, unspecified type Rectal bleeding Radiation proctitis from Last 3 Months Results * Transfuse RBC (12/07/2024 3:27 PM ADULT DAY CARE WORKER) Blood us Janiya Sierra MD BLOOD TRANSFUSION ORDERABLES Fin al Result * Prepare RBC: 1 Units (12/07/2024 10:02 AM ADULT DAY CARE WORKER) Units requested 1 Comment:Testing performed by : [facility], [address] [place] [address]., [id number] Units requested Ready ISAAC SERNA Comment:Testing performed by : [facility], [address] [place] [address]., [id number] Unit Number [id number] Product code [id number] ISAAC Blood Expiration Date [id number] [facility] Product Blood Type (for scanning) [address] [facility] Product Blood Type APOS ISAAC Dispense Status DISPENSED ISAAC Blood 12/07/2024 10:0 2 AM ADULT DAY CARE WORKER 12/07/2024 10:01 AM ADULT DAY CARE WORKER Nena Cano NP BLOOD BANK PRODUCT ORDERABL ES Final Result ISAAC [address] [facility] [place] [address] * (ABNORMAL) eGFR (12/07/2024 9:29 AM ADULT DAY CARE WORKER) eGFR 32(L) >=60 mL/min/1. 73 m2 Comment: [...] of Race in Diagnosing Kidney Disease, JASN 202). The CKD-EPI equation should not be used for patients with unstable renal function and has not been validated in children and those over 70. Current interpretive data was last reviewed 2021. Testing performed by: [address] [address] Blood 12/07/2024 9:29 AM ADULT DAY CARE WORKER 12/07/2024 9:29 AM ADULT DAY CARE WORKER us Nena Garzae Jerome AARON LAB BLOOD ORDERABLES Final Result ISAAC [address] [facility] [place] [address] * (ABNORMAL) Differential, auto (12/07/2024 9:29 AM ADULT DAY CARE WORKER) Neutrophil abs 2.8 1.5 - 6.5 K/cumm Comment:Testing performed by : [address] [address] Imm gran abs 0.0 0.0 - 0.1 K/cumm ISAAC Comment:Testing performed by : [address] [address] Lymphocyte abs 0.6(L) 0.8 - 3.3 K/cumm ISAAC Comment:Testing performed by : [address] [address] Monocyte abs 0.6 0.2 - 0.8 K/cumm ISAAC Comment:Testing performed by : [address] [address] Eosinophil abs 0.4 0.0 - 0.5 K/cumm ISAAC Comment:Testing performed by : [address] [address] Basophil abs 0.1 0.0 - 0.1 K/cumm ISAAC Comment:Testing performed by : [address] [address] Neutrophil pct 62.7 % ISAAC Comment: Interpretive Data Percent cell count reference ranges are not reported, since discordance with absolute values may lead to misinterpretation of CBC data. Current Interpretive Data was last revised on 2018. Testing performed by: [address] [address] Imm gran pct 0.5 % ISAAC Comment: Interpretive Data Percent cell count reference ranges are not reported, since discordance with absolute values may lead to misinterpretation of CBC data. Current Interpretive Data was last revised on 2018. Testing performed by: [address] [address] Lymphocyte pct 14.3 % [facility] Comment: Interpretive Data Percent cell count reference ranges are not reported, since discordance with absolute values may lead to misinterpretation of CBC data. Current Interpretive Data was last revised on 2018. Testing performed by: [address] [address] Monocyte pct 12.5 % [facility] Comment: Interpretive Data Percent cell count reference ranges are not reported, since discordance with absolute values may lead to misinterpretation of CBC data. Current Interpretive Data was last revised on 2018. Testing performed by: [address] [address] Eosinophil pct 8.9 % [facility] Comment: Interpretive Data Percent cell count reference ranges are not reported, since discordance with absolute values may lead to misinterpretation of CBC data. Current Interpretive Data was last revised on 2018. Testing performed by: [address] [address] Basophil pct 1.1 % [facility] Comment: Interpretive Data Percent cell count reference ranges are not reported, since discordance with absolute values may lead to misinterpretation of CBC data. Current Interpretive Data was last revised on 2018. Testing performed by: [address] [address] Blood 12/07/2024 9:29 AM ADULT DAY CARE WORKER 12/07/2024 9:29 AM ADULT DAY CARE WORKER us Nena Cano [employer] LAB BLOOD ORDERABLES Final Result ISAAC [address] [facility] [place] [address] * (ABNORMAL) Iron profile w/ IBC (12/07/2024 9:29 AM ADULT DAY CARE WORKER) Iron 221(H) 50 - 150 mcg/dL Comment:Testing performed by : [address] [address] TIBC 250 250 - 400 mcg/dL ISAAC Comment:Testing performed by : [address] [address] Transferrin saturation 88(H) 20 - 50 % ISAAC Comment:Testing performed by : [address] [address] Blood 12/07/2024 9:29 AM ADULT DAY CARE WORKER 12/07/2024 11:47 AM ADULT DAY CARE WORKER us Nena Cano [employer] LAB BLOOD ORDERABLES Final Result ISAAC [address] [facility] [place] [address] * (ABNORMAL) CBC with auto differential (12/07/2024 9:29 AM ADULT DAY CARE WORKER) WBC 4.4 3.8 - 9.9 K/cumm Comment:Testing performed by : [address] [address] Hgb 8.0(L) 13.0 - 17.5 g/dL ISAAC Comment:Testing performed by : [address] [address] Hct 27.2(L) 38.9 - 50.3 % IS[facility]AC Comment:Testing performed by : [address] [address] Plt 312 150 - 400 K/cumm ISAAC Comment:Testing performed by : [address] [address] MPV 8.5(L) 9.1 - 12.3 fL ISAAC Comment:Testing performed by : [address] [address] RBC 2.78(L) 4.30 - 5.80 M/cumm ISAAC SERNA Comment:Testing performed by : [address] [address] MCV 97.8(H) 81.3 - 96.4 fL ISAAC Comment:Testing performed by : [address] [address] MCH 28.8 27.1 - 33.3 pg ISAAC Comment:Testing performed by : [address] [address] MCHC 29.4(L) 32.3 - 35.7 g/dL ISAAC SERNA Comment:Testing performed by : [address], [address] RDW CV 16.7(H) 11.1 - 14.9 % ISAAC Comment:Testing performed by : [address], [address] RDW SD 59.7(H) 35.7 - 48.1 fL ISAAC Comment:Testing performed by : [address], [address] NRBC abs 0.00 0.00 - 0.01 K/cumm ISAAC Comment:Testing performed by : [address], [address] Blood 12/07/2024 9:29 AM ADULT DAY CARE WORKER 12/07/2024 9:29 AM ADULT DAY CARE WORKER Nena Cano NP LAB BLOOD ORDERABLES Final Result Performing Organization Address [facility] de Phone Number [address] [place] [address] * ABO/Rh (12/07/2024 9:29 AM ADULT DAY CARE WORKER) ABO/Rh A Positive Comment:Testing performed by : [address], [address] Blood 12/07/2024 9:29 AM ADULT DAY CARE WORKER 12/07/2024 10:12 AM ADULT DAY CARE WORKER Narrative ISAAC - 12/07/2024 10:53 AM ADULT DAY CARE WORKER Has the patient had Daratumumab or Isatuximab in the past 6 months?->Unknown Nena Cano NP LAB BLOOD BANK TEST ORDERAB LES Final Result Performing Organization Address [facility] Co de Phone Number [facility] [address] [place] [address] * (ABNORMAL) Reticulocyte Count (12/07/2024 9:29 AM ADULT DAY CARE WORKER) [facility] Retics, absolute 0.200(H) 0.020 - 0.087 M/cumm Comment:Testing performed by : [address] [address] Retics 7.2(H) 0.4 - 2.9 % ISAAC Comment:Testing performed by : [address] [address] Reticulocyte Hgb 26.3(L) 30.5 - 38.0 pg ISAAC Comment:Testing performed by : [address] [address] Blood 12/07/2024 9:29 AM ADULT DAY CARE WORKER 12/07/2024 9:29 AM ADULT DAY CARE WORKER Nena Cano [employer] LAB BLOOD ORDERABLES Final Result Performing Organization Address City/[facility]/ZIP Co de Phone Number [address] [address] * Crossmatch (12/07/2024 9:29 AM ADULT DAY CARE WORKER) [facility] Crossmatch Compatible [facility] Unit number for crossmatch [id number] [facility] Blood 12/07/2024 9:29 AM ADULT DAY CARE WORKER 12/07/2024 10:12 AM ADULT DAY CARE WORKER Nena Cano NP LAB BLOOD BANK TEST ORDERAB LES Final Result [address] [address] * Antibody screen (12/07/2024 9:29 AM ADULT DAY CARE WORKER) [facility] Divina, indirect, Gel Interpretation Negative ABSC Comment:Testing performed by : [address] [address] Blood 12/07/2024 9:29 AM ADULT DAY CARE WORKER 12/07/2024 10:12 AM ADULT DAY CARE WORKER Narrative ISAAC - 12/07/2024 10:53 AM ADULT DAY CARE WORKER Has the patient had Daratumumab or Isatuximab in the past 6 months?->Unknown Nena Cano [employer] LAB BLOOD BANK TEST ORDERAB LES Final Result Performing Organization Address [facility] Co de Phone Number ISAAC [address] [place] [address] * Ferritin (12/07/2024 9:29 AM ADULT DAY CARE WORKER) Pathologist [facility] Ferritin 284 30 - 400 ng/mL Comment:Testing performed by : [address] [address] Blood 12/07/2024 9:29 AM ADULT DAY CARE WORKER 12/07/2024 11:47 AM ADULT DAY CARE WORKER Nena Cano [employer] LAB BLOOD ORDERABLES Final Result Performing Organization Address [facility] de Phone Number [address] [address] * (ABNORMAL) Comprehensive metabolic panel (12/07/2024 9:29 AM ADULT DAY CARE WORKER) Pathologist [facility] Sodium 142 135 - 145 mmol/L Comment:Testing performed by : [address] [address] Potassium, pl 4.3 3.3 - 4.9 mmol/L ISAAC Comment:Testing performed by : [address] [address] Chloride 107 97 - 110 mmol/L ISAAC Comment:Testing performed by : [address] [address] CO2 26 22 - 32 mmol/L ISAAC Comment:Testing performed by : [address] [address] Anion gap 9 2 - 15 mmol/L ISA[facility] Comment:Testing performed by : [address] [address] BUN 14 6 - 25 mg/dL ISAAC Comment:Testing performed by : [address] [address] Creatinine 2.10(H) 0.80 - 1.30 mg/dL ISAAC Comment:Testing performed by : [address] [address] Glucose 99 70 - 199 mg/dL ISAAC [...] was last revised 2022. Testing performed by: [address] [address] Calcium 8.8 8.5 - 10.3 mg/dL [facility] Comment:Testing performed by : [address] [address] Bilirubin, total <0.2 0.1 - 1.2 mg/dL ISAAC Comment:Testing performed by : [address] [address] Protein, pl 6.2(L) 6.5 - 8.5 g/dL [facility] Comment:Testing performed by : [address] [address] Albumin 3.7 3.5 - 5.0 g/dL ISAAC Comment:Testing performed by : [address] [address] Alk phos 67 40 - 130 Units/L ISA[facility] Comment:Testing performed by : [address] [address] ALT 11 7 - 55 Units/L IS[facility] Comment:Testing performed by : [address] [address] AST 15 10 - 50 Units/L ISAAC Comment:Testing performed by : [address] [address] Blood 12/07/2024 9:29 AM ADULT DAY CARE WORKER 12/07/2024 9:29 AM ADULT DAY CARE WORKER Nena Cano [employer] LAB BLOOD ORDERABLES Final Result Performing Organization Address City/[facility] Co de Phone Number ISAAC [address] [address] * (ABNORMAL) eGFR (11/30/2024 9:11 AM ADULT DAY CARE WORKER) eGFR 34(L) >=60 mL/min/1. 73 m2 Comment: [...] was last reviewed 2021. Testing performed by: [address] [address] Blood 11/30/2024 9:11 AM ADULT DAY CARE WORKER 11/30/2024 9:16 AM ADULT DAY CARE WORKER Nena Cano NP LAB BLOOD ORDERABLES Final Result Performing Organization Address City/[facility]/ZIP Co de Phone Number ISAAC [facility] [address] [address] * (ABNORMAL) Differential, auto (11/30/2024 9:11 AM ADULT DAY CARE WORKER) Neutrophil abs 3.2 1.5 - 6.5 K/cumm Comment:Testing performed by : [address] [address] Imm gran abs 0.0 0.0 - 0.1 K/cumm [facility] Comment:Testing performed by : [address] [address] Lymphocyte abs 0.7(L) 0.8 - 3.3 K/cumm [facility] Comment:Testing performed by : [address] [address] Monocyte abs 0.5 0.2 - 0.8 K/cumm [facility] Comment:Testing performed by : [address] [address] Eosinophil abs 0.5 0.0 - 0.5 K/cumm [facility]ADAM Comment:Testing performed by : [address] [address] Basophil abs 0.1 0.0 - 0.1 K/cumm [facility] Comment:Testing performed by : [address] [address] Neutrophil pct 64.1 % [facility] Comment: Interpretive Data Percent cell count reference ranges are not reported, since discordance with absolute values may lead to misinterpretation of CBC data. Current Interpretive Data was last revised on 2018. Testing performed by: [address] [address] Imm gran pct 0.8 % [facility] Comment: Interpretive Data Percent cell count reference ranges are not reported, since discordance with absolute values may lead to misinterpretation of CBC data. Current Interpretive Data was last revised on 2018. Testing performed by: [address] [address] Lymphocyte pct 13.5 % [facility] Comment: Interpretive Data Percent cell count reference ranges are not reported, since discordance with absolute values may lead to misinterpretation of CBC data. Current Interpretive Data was last revised on 2018. Testing performed by: [address] [address] Monocyte pct 10.5 % ISAAC Comment: Interpretive Data Percent cell count reference ranges are not reported, since discordance with absolute values may lead to misinterpretation of CBC data. Current Interpretive Data was last revised on 2018. Testing performed by: [address] [address] Eosinophil pct 10.1 % ISAAC Comment: Interpretive Data Percent cell count reference ranges are not reported, since discordance with absolute values may lead to misinterpretation of CBC data. Current Interpretive Data was last revised on 2018. Testing performed by: [address] [address] Basophil pct 1.0 % IS[facility] Comment: Interpretive Data Percent cell count reference ranges are not reported, since discordance with absolute values may lead to misinterpretation of CBC data. Current Interpretive Data was last revised on 2018. Testing performed by: [address] [address] Blood 11/30/2024 9:11 AM ADULT DAY CARE WORKER 11/30/2024 9:16 AM ADULT DAY CARE WORKER Nena Cano [employer] LAB BLOOD ORDERABLES Final Result ISAAC [address] [facility] [place] [address] * (ABNORMAL) Iron profile w/ IBC (11/30/2024 9:11 AM ADULT DAY CARE WORKER) Iron 219(H) 50 - 150 mcg/dL Comment:Testing performed by : [address] [address] TIBC 289 250 - 400 mcg/dL ISAAC Comment:Testing performed by : [address] [address] Transferrin saturation 76(H) 20 - 50 % ISAAC Comment:Testing performed by : [address] [address] Blood 11/30/2024 9:11 AM ADULT DAY CARE WORKER 11/30/2024 11:41 AM ADULT DAY CARE WORKER us Nena Cano NP LAB BLOOD ORDERABLES Final Result ISAAC [address] [facility] [place] [address] * (ABNORMAL) CBC with auto differential (11/30/2024 9:11 AM ADULT DAY CARE WORKER) [facility] WBC 5.0 3.8 - 9.9 K/cumm Comment:Testing performed by : [address] [address] Hgb 8.5(L) 13.0 - 17.5 g/dL IS[facility]AC Comment:Testing performed by : [address] [address] Hct 28.8(L) 38.9 - 50.3 % IS[facility]AC Comment:Testing performed by : [address] [address] Plt 294 150 - 400 K/cumm ISAAC Comment:Testing performed by : [address] [address] MPV 8.5(L) 9.1 - 12.3 fL [facility] Comment:Testing performed by : [address] [address] RBC 2.94(L) 4.30 - 5.80 M/cumm ISAAC Comment:Testing performed by : [address] [address] MCV 98.0(H) 81.3 - 96.4 fL [facility] Comment:Testing performed by : [address] [address] MCH 28.9 27.1 - 33.3 pg ISAAC SERNA Comment:Testing performed by : [address] [address] MCHC 29.5(L) 32.3 - 35.7 g/dL ISAAC SERNA Comment:Testing performed by : [address] [address] RDW CV 16.5(H) 11.1 - 14.9 % ISAAC Comment:Testing performed by : [address] [address] RDW SD 58.5(H) 35.7 - 48.1 fL ISAAC SERNA Comment:Testing performed by : [address] [address] NRBC abs 0.00 0.00 - 0.01 K/cumm ISAAC Comment:Testing performed by : [address] [address] Blood 11/30/2024 9:11 AM ADULT DAY CARE WORKER 11/30/2024 9:16 AM ADULT DAY CARE WORKER Nena Cano NP LAB BLOOD ORDERABLES Final Result Performing Organization Address [facility] de Phone Number ISAAC [address] [place] [address] * (ABNORMAL) Reticulocyte Count (11/30/2024 9:11 AM ADULT DAY CARE WORKER) Retics, absolute 0.213(H) 0.020 - 0.087 M/cumm Comment:Testing performed by : [address] [address] Retics 7.2(H) 0.4 - 2.9 % ISAAC Comment:Testing performed by : [address] [address] Reticulocyte Hgb 27.4(L) 30.5 - 38.0 pg ISAAC SERNA Comment:Testing performed by : [address] [address] Blood 11/30/2024 9:11 AM ADULT DAY CARE WORKER 11/30/2024 9:16 AM ADULT DAY CARE WORKER Nena Cano NP LAB BLOOD ORDERABLES Final Result Performing Organization Address [facility] Co de Phone Number ISAAC [address] [place] [address] * (ABNORMAL) Ferritin (11/30/2024 9:11 AM ADULT DAY CARE WORKER) Ferritin 500(H) 30 - 400 ng/mL Comment:Testing performed by : [address] [address] Blood 11/30/2024 9:11 AM ADULT DAY CARE WORKER 11/30/2024 11:41 AM ADULT DAY CARE WORKER Nena Cano [employer] LAB BLOOD ORDERABLES Final Result [facility] [address] [facility] [place] [address] * (ABNORMAL) Comprehensive metabolic panel (11/30/2024 9:11 AM ADULT DAY CARE WORKER) Pathologist [facility] Sodium 143 135 - 145 mmol/L Comment:Testing performed by : [address] [address] Potassium, pl 4.7 3.3 - 4.9 mmol/L ISAAC Comment:Testing performed by : [address] [address] Chloride 109 97 - 110 mmol/L ISAAC Comment:Testing performed by : [address] [address] CO2 25 22 - 32 mmol/L ISA[facility] Comment:Testing performed by : [address] [address] Anion gap 9 2 - 15 mmol/L ISAAC Comment:Testing performed by : [address] [address] BUN 16 6 - 25 mg/dL ISAAC Comment:Testing performed by : [address] [address] Creatinine 2.00(H) 0.80 - 1.30 mg/dL ISAAC Comment:Testing performed by : [address] [address] Glucose 103 70 - 199 mg/dL ISAAC [...] was last revised 2022. Testing performed by: [address] [address] Calcium 9.2 8.5 - 10.3 mg/dL ISAAC Comment:Testing performed by : [address] [address] Bilirubin, total <0.2 0.1 - 1.2 mg/dL ISAAC Comment:Testing performed by : [address] [address] Protein, pl 6.4(L) 6.5 - 8.5 g/dL IS[facility] Comment:Testing performed by : [address] [address] Albumin 3.7 3.5 - 5.0 g/dL IS[facility]AC Comment:Testing performed by : [address] [address] Alk phos 72 40 - 130 Units/L ISAAC Comment:Testing performed by : [address] [address] ALT 13 7 - 55 Units/L ISAAC Comment:Testing performed by : [address] [address] AST 21 10 - 50 Units/L ISAAC Comment:Testing performed by : [address] [address] Blood 11/30/2024 9:11 AM ADULT DAY CARE WORKER 11/30/2024 9:16 AM ADULT DAY CARE WORKER us Nena Cano NP LAB BLOOD ORDERABLES Final Result ISAAC [address] [facility] [place] [address] * Surgical pathology (11/17/2024 9:39 AM ADULT DAY CARE WORKER) Tissue (Gastric/Stomach biopsy) 11/17/2024 9:39 AM ADULT DAY CARE WORKER Tissue (Esophageal biopsy) 11/17/2024 9:40 AM ADULT DAY CARE WORKER Tissue (Esophageal biopsy) 11/17/2024 9:41 AM ADULT DAY CARE WORKER Tissue (Polyp(s), colon/colorectal, esophageal, gastric) 11/17/2024 9:51 AM ADULT DAY CARE WORKER Tissue (Colon, Biopsy) 11/17/2024 9:55 AM ADULT DAY CARE WORKER Tissue (Colon, Biopsy) 11/17/2024 9:57 AM ADULT DAY CARE WORKER Tissue (Colon, Biopsy) 11/17/2024 10:00 AM ADULT DAY CARE WORKER Tissue (Colon, Biopsy) 11/17/2024 10:01 AM ADULT DAY CARE WORKER Narrative PATHOLOGY [facility] - 11/21/2024 2:09 PM ADULT DAY CARE WORKER [facility] Department of Pathology [address] [place] [address] Note to Patients: This report may contain [...] : 1950 (Age: 74) Gender: M Address: [address] [place] [address] Hospital #: [id number] Service: Gastro Location: Patient Type: [facility] OUTPATIENT Taken: 11/17/2024 Received: 11/17/2024 Accessioned: 11/17/2024 [...] Bx and consists of a 0.4 cm prado tissue fragment, which is entirely submitted. Labeled H1. Jar 0. [facility]/11/17/2024 14:02 SHAD Gonzalez, PA (ASCP) Microscopic slide review and interpretation for this case was performed at [facility], Department of Surgical Pathology, [address] [place] [id number], [place] [address] CLIA # [id number] us Lucio Rosas MD LAB PATHOLOGY ORDERABLES Final R esult PATHOLOGY [facility] * EGD (11/17/2024 9:34 AM ADULT DAY CARE WORKER) Anatomical Region Laterality Modality Other Narrative Procedure Note Lucio Rosas MD - 11/17/2024 9:34 AM CST [facility] ENDOSCOPY Patient Name: Brennen Olson Procedure Date: 11/17/2024 9:34 AM Date of : 1950 Admit Type: Outpatient Age: 74 Gender: Male Attending MD: Lucio Rosas M.D. Room: [facility] ENDOSCOPY ROOM 03 Note Status: Finalized Procedure: [...] On: 11/17/2024 9:34 AM Recognized by the [place] [employer] for promoting quality in endoscopy us Lucio Rosas MD ENDOSCOPY PROCEDURES Final Resul t * Colonoscopy (11/17/2024 9:34 AM ADULT DAY CARE WORKER) Anatomical Region Laterality Modality Other Narrative Procedure Note Lucio Rosas MD - 11/17/2024 9:34 AM CST [facility] ENDOSCOPY Patient Name: Brennen Olson Procedure Date: 11/17/2024 9:34 AM Date of : 1950 Admit Type: Outpatient Age: 74 Gender: Male Attending MD: Lucio Rosas M.D. Room: [facility] ENDOSCOPY ROOM 03 Note Status: Finalized Procedure: [...] The scope was passed under direct vision.The [id number] colonoscope was introduced through theanus and advanced to the cecum, identified byappendiceal orifice and ileocecal valve. The scope was passed under direct vision. The [id number] colonoscope was introduced through the and advanced [...] On: 11/17/2024 9:34 AM Recognized by the [place] [employer] G[employer]intestinal [employer] for promoting quality in endoscopy Lucio Rosas MD ENDOSCOPY PROCEDURES Final Resul t * ECG 12 lead (11/17/2024 9:01 AM ADULT DAY CARE WORKER) Ventricular Rate EKG/Min 56 BPM [facility] Atrial Rate 56 BPM [facility] AK-Interval (MSEC) 200 ms [facility] QRS-Interval (MSEC) 102 ms [facility] QT-Interval (MSEC) 460 ms [facility] QTc 443 ms [facility] P Landing 67 degrees [facility] R Landing -30 degrees [facility] T Landing 32 degrees [facility] Diagnosis Sinus bradycardia Left axis deviation Minimal voltage criteria for LVH, may be normal variant ( R in aVL ) Abnormal ECG No previous ECGs available Confirmed by LOVELY CANALES M.D. ([id number]) on 11/18/2024 8:04:36 AM [facility] 11/17/2024 9:01 AM ADULT DAY CARE WORKER 11/18/2024 8:04 AM ADULT DAY CARE WORKER Natalia Sanchez MD ECG ORDERABLES Final Result [facility] * (ABNORMAL) POC Blood Gas and Chemistries, Venous - (11/17/2024 8:49 AM ADULT DAY CARE WORKER) pH,kwame POC 7.38 7.32 - 7.43 pCO2, kwame POC 41 40 - 50 mmHg [facility] pO2,kwame POC 27 mmHg ISAAC Comment: Interpretive Data No reference range established. Current interpretive data was last revised 2020. HCO3, kwame (Calc) POC 24 20 - 30 mmol/L IS[facility] Base excess, kwame POC -1 mmol/L ISAAC Comment: Interpretive Data No reference range established. Current interpretive data was last revised 2020. Hemoglobin, kwame POC 9.9(L) 13.0 - 17.5 g/dL [facility] Hematocrit, kwame POC 29.0(L) 38.9 - 50.3 % [facility] Sodium, kwame POC 141 135 - 145 mmol/L [facility] Potassium, kwame POC 4.0 3.3 - 4.9 mmol/L [facility] Comment: Interpretive Data This method is not able to assess for hemolysis, which may falsely increase potassium concentrations. If further testing is needed to evaluate this result, consider in-laboratory plasma potassium. Current Interpretive Data was last revised on 2022. Glucose, kwame POC 88 70 - 199 mg/dL [facility] Ionized Calcium, kwame POC 4.70 4.50 - 5.10 mg/dL [facility] Blood 11/17/2024 8:49 AM ADULT DAY CARE WORKER 11/17/2024 8:49 AM ADULT DAY CARE WORKER Lucio Rosas MD LAB POCT ORDERABLES - DEVICE Fin al Result Performing Organization Address City/[facility] Co de Phone Number [place] [phone] [facility] Department of Laboratories [place] [phone] * (ABNORMAL) Protime-INR (11/17/2024 8:46 AM ADULT DAY CARE WORKER) PT 16.8(H) 12.0 - 14.6 sec Comment:Ref Range High INR 1.4(H) 0.9 - 1.2 [facility] Comment: Ref Range High Interpretive data Oral anticoagulant therapeutic ranges: Venous thromboembolism prophylaxis or treatment: 2.0-3.0 CARDIOLOGY Standard range: 2.0-3.0 High-intensity range: 2.5-3.5 Refer to indication-specific guidelines for appropriate target ranges for prosthetic heart valve replacement. Current interpretive data was last revised on 2019. Blood 11/17/2024 8:46 AM ADULT DAY CARE WORKER 11/17/2024 8:50 AM ADULT DAY CARE WORKER Natalia Sanchez MD LAB BLOOD ORDERABLES Final Resul t ISAAC [address] [facility] [place] [address] * Transfuse RBC (11/16/2024 2:24 PM ADULT DAY CARE WORKER) Blood Janiya Sierra MD BLOOD TRANSFUSION ORDERABLES Fin al Result * Prepare RBC: 1 Units (11/16/2024 10:29 AM ADULT DAY CARE WORKER) Units requested 1 Comment:Testing performed by : [facility], [address] [place] [address]., [address] Units requested Ready [facility] Comment:Testing performed by : [facility], [address] [place] [address]., [address] Unit Number [id number] Product code [id number] [facility] Blood Expiration Date [id number] [facility] Product Blood Type (for scanning) 6200 [facility] Product Blood Type APOS [facility] Dispense Status DISPENSED [facility] Blood 11/16/2024 10:2 9 AM ADULT DAY CARE WORKER 11/16/2024 10:29 AM ADULT DAY CARE WORKER Nena Cano NP BLOOD BANK PRODUCT ORDERABL ES Final Result Performing Organization Address [facility] Co de Phone Number ISAAC [address] [place] [address] * (ABNORMAL) eGFR (11/16/2024 9:06 AM ADULT DAY CARE WORKER) eGFR 37(L) >=60 mL/min/1. 73 m2 Comment: [...] of Race in Diagnosing Kidney Disease, JASN 202). The CKD-EPI equation should not be used for patients with unstable renal function and has not been validated in children and those over 70. Current interpretive data was last reviewed 2021. Testing performed by: [address] [address] Blood 11/16/2024 9:06 AM ADULT DAY CARE WORKER 11/16/2024 9:07 AM ADULT DAY CARE WORKER us Nena Cano [employer] LAB BLOOD ORDERABLES Final Result ISAAC SERNA [facility] Department [place] [address] * (ABNORMAL) Differential, auto (11/16/2024 9:06 AM ADULT DAY CARE WORKER) Neutrophil abs 2.8 1.5 - 6.5 K/cumm Comment:Testing performed by : [address] [address] Imm gran abs 0.0 0.0 - 0.1 K/cumm ISAAC Comment:Testing performed by : [address] [address] Lymphocyte abs 0.7(L) 0.8 - 3.3 K/cumm ISAAC Comment:Testing performed by : [address] [address] Monocyte abs 0.5 0.2 - 0.8 K/cumm ISAAC Comment:Testing performed by : [address] [address] Eosinophil abs 0.4 0.0 - 0.5 K/cumm ISAAC Comment:Testing performed by : [address] [address] Basophil abs 0.1 0.0 - 0.1 K/cumm ISAAC Comment:Testing performed by : [address] [address] Neutrophil pct 63.1 % [facility] Comment: Interpretive Data Percent cell count reference ranges are not reported, since discordance with absolute values may lead to misinterpretation of CBC data. Current Interpretive Data was last revised on 2018. Testing performed by: [address] [address] Imm gran pct 0.5 % [facility] Comment: Interpretive Data Percent cell count reference ranges are not reported, since discordance with absolute values may lead to misinterpretation of CBC data. Current Interpretive Data was last revised on 2018. Testing performed by: [address] [address] Lymphocyte pct 14.9 % [facility] Comment: Interpretive Data Percent cell count reference ranges are not reported, since discordance with absolute values may lead to misinterpretation of CBC data. Current Interpretive Data was last revised on 2018. Testing performed by: [address] [address] Monocyte pct 11.1 % [facility] Comment: Interpretive Data Percent cell count reference ranges are not reported, since discordance with absolute values may lead to misinterpretation of CBC data. Current Interpretive Data was last revised on 2018. Testing performed by: [address] [address] Eosinophil pct 9.0 % [facility] Comment: Interpretive Data Percent cell count reference ranges are not reported, since discordance with absolute values may lead to misinterpretation of CBC data. Current Interpretive Data was last revised on 2018. Testing performed by: [address] [address] Basophil pct 1.4 % [facility] Comment: Interpretive Data Percent cell count reference ranges are not reported, since discordance with absolute values may lead to misinterpretation of CBC data. Current Interpretive Data was last revised on 2018. Testing performed by: [address] [address] Blood 11/16/2024 9:06 AM ADULT DAY CARE WORKER 11/16/2024 9:07 AM ADULT DAY CARE WORKER Nena Cano [employer] LAB BLOOD ORDERABLES Final Result Performing Organization Address City/[facility]/ZIP Co de Phone Number ISAAC [address] [facility] [place] [address] * (ABNORMAL) Iron profile w/ IBC (11/16/2024 9:06 AM ADULT DAY CARE WORKER) [facility] Iron 20(L) 50 - 150 mcg/dL Comment:Testing performed by : [address] [address] TIBC 272 250 - 400 mcg/dL ISAAC SERNA Comment:Testing performed by : [address] [address] Transferrin saturation 7(L) 20 - 50 % ISAAC SERNA Comment:Testing performed by : [address] [address] Blood 11/16/2024 9:06 AM ADULT DAY CARE WORKER 11/16/2024 10:07 AM ADULT DAY CARE WORKER Nena Cano [employer] LAB BLOOD ORDERABLES Final Result Performing Organization Address City/[facility] Co de Phone Number ISAAC [address] [facility] [place] [address] * (ABNORMAL) CBC with auto differential (11/16/2024 9:06 AM ADULT DAY CARE WORKER) [facility] WBC 4.4 3.8 - 9.9 K/cumm Comment:Testing performed by : [address] [address] Hgb 8.0(L) 13.0 - 17.5 g/dL ISAAC SERNA Comment:Testing performed by : [address] [address] Hct 26.6(L) 38.9 - 50.3 % ISAAC SERNA Comment:Testing performed by : [address] [address] Plt 317 150 - 400 K/cumm ISAAC SERNA Comment:Testing performed by : [address] [address] MPV 8.4(L) 9.1 - 12.3 fL ISAAC SERNA Comment:Testing performed by : [facility], [address] [place] [address]., [address] RBC 2.71(L) 4.30 - 5.80 M/cumm ISAAC Comment:Testing performed by : [address] [address] MCV 98.2(H) 81.3 - 96.4 fL ISAAC Comment:Testing performed by : [address] [address] MCH 29.5 27.1 - 33.3 pg ISAAC Comment:Testing performed by : [address] [address] MCHC 30.1(L) 32.3 - 35.7 g/dL ISAAC Comment:Testing performed by : [address] [address] RDW CV 15.2(H) 11.1 - 14.9 % ISAAC Comment:Testing performed by : [address] [address] RDW SD 55.1(H) 35.7 - 48.1 fL ISAAC Comment:Testing performed by : [address] [address] NRBC abs 0.00 0.00 - 0.01 K/cumm ISAAC Comment:Testing performed by : [address] [address] Blood 11/16/2024 9:06 AM ADULT DAY CARE WORKER 11/16/2024 9:07 AM ADULT DAY CARE WORKER us Nena Cano [employer] LAB BLOOD ORDERABLES Final Result ISAAC [address] [facility] [place] [address] * ABO/Rh (11/16/2024 9:06 AM ADULT DAY CARE WORKER) ABO/Rh A Positive Comment:Testing performed by : [address], [address] Blood 11/16/2024 9:06 AM ADULT DAY CARE WORKER 11/16/2024 10:07 AM ADULT DAY CARE WORKER Narrative ISAAC - 11/16/2024 10:42 AM ADULT DAY CARE WORKER Has the patient had Daratumumab or Isatuximab in the past 6 months?->Unknown Nena Cano [employer] LAB BLOOD BANK TEST ORDERAB LES Final Result Performing Organization Address [facility] de Phone Number DAYANA[address] [place] [address] * (ABNORMAL) Reticulocyte Count (11/16/2024 9:06 AM ADULT DAY CARE WORKER) Retics, absolute 0.140(H) 0.020 - 0.087 M/cumm Comment:Testing performed by : [address] [address] Retics 5.2(H) 0.4 - 2.9 % ISAAC Comment:Testing performed by : [address] [address] Reticulocyte Hgb 23.9(L) 30.5 - 38.0 pg ISAAC Comment:Testing performed by : [address] [address] Blood 11/16/2024 9:06 AM ADULT DAY CARE WORKER 11/16/2024 9:07 AM ADULT DAY CARE WORKER Nena Cano NP LAB BLOOD ORDERABLES Final Result Performing Organization Address [facility] de Phone Number [place] [phone] [facility] [place] [address] * Crossmatch (11/16/2024 9:06 AM ADULT DAY CARE WORKER) Crossmatch Compatible ISAAC Unit number for crossmatch [id number] ISAAC Blood 11/16/2024 9:06 AM ADULT DAY CARE WORKER 11/16/2024 10:07 AM ADULT DAY CARE WORKER Nena Cano [employer] LAB BLOOD BANK TEST ORDERAB LES Final Result Performing Organization Address [facility] Co de Phone Number DAYANA[address] [address] * Antibody screen (11/16/2024 9:06 AM ADULT DAY CARE WORKER) Pathologist [facility] Divina, indirect, Gel Interpretation Negative ABSC Comment:Testing performed by : [address] [address] Blood 11/16/2024 9:06 AM ADULT DAY CARE WORKER 11/16/2024 10:07 AM ADULT DAY CARE WORKER Narrative ISAAC - 11/16/2024 10:42 AM ADULT DAY CARE WORKER Has the patient had Daratumumab or Isatuximab in the past 6 months?->Unknown Nena Cano [employer] LAB BLOOD BANK TEST ORDERAB LES Final Result Performing Organization Address [facility] Co de Phone Number DAYANA[address] [address] * Ferritin (11/16/2024 9:06 AM ADULT DAY CARE WORKER) [facility] Ferritin 32 30 - 400 ng/mL Comment:Testing performed by : [address] [address] Blood 11/16/2024 9:06 AM ADULT DAY CARE WORKER 11/16/2024 10:07 AM ADULT DAY CARE WORKER Nena Cano [employer] LAB BLOOD ORDERABLES Final Result Performing Organization Address [facility] Co de Phone Number [address] [address] * (ABNORMAL) Comprehensive metabolic panel (11/16/2024 9:06 AM ADULT DAY CARE WORKER) [facility] Sodium 140 135 - 145 mmol/L Comment:Testing performed by : [address] [address] Potassium, pl 4.4 3.3 - 4.9 mmol/L ISAAC Comment:Testing performed by : [address] [address] Chloride 108 97 - 110 mmol/L ISAAC Comment:Testing performed by : [address] [address] CO2 25 22 - 32 mmol/L ISAAC Comment:Testing performed by : [address] [address] Anion gap 7 2 - 15 mmol/L ISAAC Comment:Testing performed by : [address] [address] BUN 18 6 - 25 mg/dL ISAAC Comment:Testing performed by : [address] [address] Creatinine 1.90(H) 0.80 - 1.30 mg/dL ISAAC Comment:Testing performed by : [address] [address] Glucose 105 70 - 199 mg/dL ISAAC [...] was last revised 2022. Testing performed by: [address] [address] Calcium 8.7 8.5 - 10.3 mg/dL ISAAC Comment:Testing performed by : [address] [address] Bilirubin, total 0.2 0.1 - 1.2 mg/dL ISAAC Comment:Testing performed by : [address] [address] Protein, pl 6.4(L) 6.5 - 8.5 g/dL ISAAC Comment:Testing performed by : [address] [address] Albumin 3.8 3.5 - 5.0 g/dL ISAAC SERNA Comment:Testing performed by : [facility], [address] [place] [address]., [address] Alk phos 70 40 - 130 Units/L ISAAC SERNA Comment:Testing performed by : [address] [address] ALT 10 7 - 55 Units/L ISAAC SERNA Comment:Testing performed by : [address] [address] AST 15 10 - 50 Units/L ISAAC Comment:Testing performed by : [address] [address] Blood 11/16/2024 9:06 AM ADULT DAY CARE WORKER 11/16/2024 9:07 AM ADULT DAY CARE WORKER Nena Cano NP LAB BLOOD ORDERABLES Final Result ISAAC [address] [facility] [place] [address] * (ABNORMAL) eGFR (11/03/2024 9:43 AM ADULT DAY CARE WORKER) eGFR 37(L) >=60 mL/min/1. 73 m2 Comment: [...] was last reviewed 2021. Testing performed by: [address] [address] Blood 11/03/2024 9:43 AM ADULT DAY CARE WORKER 11/03/2024 9:49 AM ADULT DAY CARE WORKER Nena Garzae Jerome [employer] LAB BLOOD ORDERABLES Final Result ISAAC [address] [facility] [place] [address] * (ABNORMAL) Differential, auto (11/03/2024 9:43 AM ADULT DAY CARE WORKER) Neutrophil abs 3.6 1.5 - 6.5 K/cumm Comment:Testing performed by : [address] [address] Imm gran abs 0.1 0.0 - 0.1 K/cumm ISAAC Comment:Testing performed by : [address] [address] Lymphocyte abs 0.7(L) 0.8 - 3.3 K/cumm ISAAC Comment:Testing performed by : [address] [address] Monocyte abs 0.7 0.2 - 0.8 K/cumm ISAAC Comment:Testing performed by : [address] [address] Eosinophil abs 0.5 0.0 - 0.5 K/cumm ISAAC Comment:Testing performed by : [address] [address] Basophil abs 0.1 0.0 - 0.1 K/cumm ISAAC Comment:Testing performed by : [address] [address] Neutrophil pct 64.1 % ISAAC Comment: Interpretive Data Percent cell count reference ranges are not reported, since discordance with absolute values may lead to misinterpretation of CBC data. Current Interpretive Data was last revised on 2018. Testing performed by: [address] [address] Imm gran pct 0.9 % ISAAC Comment: Interpretive Data Percent cell count reference ranges are not reported, since discordance with absolute values may lead to misinterpretation of CBC data. Current Interpretive Data was last revised on 2018. Testing performed by: [address] [address] Lymphocyte pct 12.9 % [facility] Comment: Interpretive Data Percent cell count reference ranges are not reported, since discordance with absolute values may lead to misinterpretation of CBC data. Current Interpretive Data was last revised on 2018. Testing performed by: [address] [address] Monocyte pct 13.1 % [facility] Comment: Interpretive Data Percent cell count reference ranges are not reported, since discordance with absolute values may lead to misinterpretation of CBC data. Current Interpretive Data was last revised on 2018. Testing performed by: [address] [address] Eosinophil pct 8.1 % [facility] Comment: Interpretive Data Percent cell count reference ranges are not reported, since discordance with absolute values may lead to misinterpretation of CBC data. Current Interpretive Data was last revised on 2018. Testing performed by: [address] [address] Basophil pct 0.9 % [facility] Comment: Interpretive Data Percent cell count reference ranges are not reported, since discordance with absolute values may lead to misinterpretation of CBC data. Current Interpretive Data was last revised on 2018. Testing performed by: [address] [address] Blood 11/03/2024 9:43 AM ADULT DAY CARE WORKER 11/03/2024 9:49 AM ADULT DAY CARE WORKER us Nena Cano NP LAB BLOOD ORDERABLES Final Result ISAAC SERNA [address] [facility] [place] [address] * Iron profile w/ IBC (11/03/2024 9:43 AM ADULT DAY CARE WORKER) [facility] Iron 113 50 - 150 mcg/dL Comment:Testing performed by : [address] [place]., [address] TIBC 254 250 - 400 mcg/dL ISAAC SERNA Comment:Testing performed by : [address] [address] Transferrin saturation 44 20 - 50 % ISAAC SERNA Comment:Testing performed by : [address] [address] Blood 11/03/2024 9:43 AM ADULT DAY CARE WORKER 11/03/2024 11:39 AM ADULT DAY CARE WORKER us Nena Cano [employer] LAB BLOOD ORDERABLES Final Result ISAAC SERNA [address] [facility] Department [place] [address] * (ABNORMAL) CBC with auto differential (11/03/2024 9:43 AM ADULT DAY CARE WORKER) WBC 5.6 3.8 - 9.9 K/cumm Comment:Testing performed by : [address] [address] Hgb 8.5(L) 13.0 - 17.5 g/dL ISAAC SERNA Comment:Testing performed by : [address] [address] Hct 28.3(L) 38.9 - 50.3 % ISAAC SERNA Comment:Testing performed by : [address] [address] Plt 302 150 - 400 K/cumm ISAAC Comment:Testing performed by : [address] [address] MPV 8.3(L) 9.1 - 12.3 fL ISAAC SERNA Comment:Testing performed by : [address] [address] RBC 2.86(L) 4.30 - 5.80 M/cumm ISAAC SERNA Comment:Testing performed by : [address] [address] MCV 99.0(H) 81.3 - 96.4 fL ISAAC SERNA Comment:Testing performed by : [address] [place]., [address] MCH 29.7 27.1 - 33.3 pg ISAAC SERNA Comment:Testing performed by : [address] [address] MCHC 30.0(L) 32.3 - 35.7 g/dL ISAAC SERNA Comment:Testing performed by : [address] [address] RDW CV 18.3(H) 11.1 - 14.9 % ISAAC Comment:Testing performed by : [address] [address] RDW SD 65.1(H) 35.7 - 48.1 fL ISAAC Comment:Testing performed by : [address] [address] NRBC abs 0.00 0.00 - 0.01 K/cumm ISAAC SERNA Comment:Testing performed by : [address], [address] Blood 11/03/2024 9:43 AM ADULT DAY CARE WORKER 11/03/2024 9:49 AM ADULT DAY CARE WORKER Nena Cano NP LAB BLOOD ORDERABLES Final Result ISAAC [address] [facility] Department of Laboratories [place], [place] [id number] * (ABNORMAL) Reticulocyte Count (11/03/2024 9:43 AM ADULT DAY CARE WORKER) Retics, absolute 0.228(H) 0.020 - 0.087 M/cumm Comment:Testing performed by : [address] [address] Retics 8.0(H) 0.4 - 2.9 % ISAAC SERNA Comment:Testing performed by : [address] [address] Reticulocyte Hgb 28.9(L) 30.5 - 38.0 pg ISAAC SERNA Comment:Testing performed by : [address], [address] Blood 11/03/2024 9:43 AM ADULT DAY CARE WORKER 11/03/2024 9:49 AM ADULT DAY CARE WORKER Nena Cano [employer] LAB BLOOD ORDERABLES Final Result Performing Organization Address City/[facility] Co de Phone Number ISAAC [address] [address] * Ferritin (11/03/2024 9:43 AM ADULT DAY CARE WORKER) Pathologist [facility] Ferritin 134 30 - 400 ng/mL Comment:Testing performed by : [address] [address] Blood 11/03/2024 9:43 AM ADULT DAY CARE WORKER 11/03/2024 11:39 AM ADULT DAY CARE WORKER Nena Cano [employer]IST LAB BLOOD ORDERABLES Final Result Performing Organization Address [facility] de Phone Number ISAAC [address] [place] [address] * (ABNORMAL) Comprehensive metabolic panel (11/03/2024 9:43 AM ADULT DAY CARE WORKER) Pathologist [facility] Sodium 138 135 - 145 mmol/L Comment:Testing performed by : [address] [address] Potassium, pl 4.4 3.3 - 4.9 mmol/L ISAAC Comment:Testing performed by : [address] [address] Chloride 106 97 - 110 mmol/L ISAAC Comment:Testing performed by : [address] [address] CO2 24 22 - 32 mmol/L ISAAC Comment:Testing performed by : [address] [address] Anion gap 8 2 - 15 mmol/L ISAAC Comment:Testing performed by : [address] [address] BUN 17 6 - 25 mg/dL ISAAC Comment:Testing performed by : [address] [address] Creatinine 1.90(H) 0.80 - 1.30 mg/dL [facility] Comment:Testing performed by : [address] [address] Glucose 98 70 - 199 mg/dL [facility] Comment: Interpretive Data Fasting glucose [...] was last revised 2022. Testing performed by: [address] [address] Calcium 8.7 8.5 - 10.3 mg/dL [facility] Comment:Testing performed by : [address] [address] Bilirubin, total 0.2 0.1 - 1.2 mg/dL [facility] Comment:Testing performed by : [address] [address] Protein, pl 6.4(L) 6.5 - 8.5 g/dL [facility] Comment:Testing performed by : [address] [address] Albumin 3.7 3.5 - 5.0 g/dL [facility] Comment:Testing performed by : [address] [address] Alk phos 66 40 - 130 Units/L [facility] Comment:Testing performed by : [address] [address] ALT 10 7 - 55 Units/L [facility] Comment:Testing performed by : [address] [address] AST 16 10 - 50 Units/L [facility] Comment:Testing performed by : [address] [address] Blood 11/03/2024 9:43 AM ADULT DAY CARE WORKER 11/03/2024 9:49 AM ADULT DAY CARE WORKER Result [facility] Nena Cano NP LAB BLOOD ORDERABLES Final Result Performing Organization Address [facility] Co de Phone Number ISAAC [address] [address] * Transfuse RBC (10/31/2024 3:42 PM ADULT DAY CARE WORKER) Blood Result [facility] Janiya Sierra MD BLOOD TRANSFUSION ORDERABLES Delonte toni Result - Final * Prepare RBC: 1 Units (10/28/2024 2:35 PM ADULT DAY CARE WORKER) Units requested 1 Comment:Testing performed by : [address], [address] Units requested Ready ISAAC Comment:Testing performed by : [address] [address] Unit Number [id number] Product code [id number] [facility] Blood Expiration Date [id number] [facility] Product Blood Type (for scanning) 0600 [facility] Product Blood Type ANEG [facility] Dispense Status DISPENSED [facility] Blood 10/28/2024 2:35 PM ADULT DAY CARE WORKER 10/28/2024 2:35 PM ADULT DAY CARE WORKER Result [facility] Nena Cano NP BLOOD BANK PRODUCT ORDERABL ES Final Result Performing Organization Address [facility] Co de Phone Number ISAAC [address] [place] [address] * Transfuse RBC (10/28/2024 1:40 PM ADULT DAY CARE WORKER) Blood Janiya Sierra MD BLOOD TRANSFUSION ORDERABLES Fin al Result * Prepare RBC: 1 Units (10/28/2024 9:40 AM ADULT DAY CARE WORKER) Units requested 1 Comment:Testing performed by : [address] [address] Units requested Ready ISAAC SERNA Comment:Testing performed by : [address] [address] Unit Number [id number] Product code [id number] ISAAC SERNA Blood Expiration Date [id number] ISAAC Product Blood Type (for scanning) 0600 ISAAC Product Blood Type ANEG ISAAC Dispense Status DISPENSED ISAAC Blood 10/28/2024 9:40 AM ADULT DAY CARE WORKER 10/28/2024 9:40 AM ADULT DAY CARE WORKER us Nena Cano [employer] BLOOD BANK PRODUCT ORDERABL ES Final Result ISAAC SERNA [address] [facility] [place] [address] * (ABNORMAL) eGFR (10/28/2024 9:01 AM ADULT DAY CARE WORKER) eGFR 32(L) >=60 mL/min/1. 73 m2 Comment: [...] was last reviewed 2021. Testing performed by: [address] [id number] Blood 10/28/2024 9:01 AM ADULT DAY CARE WORKER 10/28/2024 9:03 AM ADULT DAY CARE WORKER us Nena Cano [employer] SPECIALIST LAB BLOOD ORDERABLES Final Result ISAAC [address] [facility] [place] [address] * (ABNORMAL) Differential, auto (10/28/2024 9:01 AM ADULT DAY CARE WORKER) Neutrophil abs 3.6 1.5 - 6.5 K/cumm Comment:Testing performed by : [address] [address] Imm gran abs 0.0 0.0 - 0.1 K/cumm ISAAC Comment:Testing performed by : [address] [address] Lymphocyte abs 0.7(L) 0.8 - 3.3 K/cumm ISAAC Comment:Testing performed by : [address] [address] Monocyte abs 0.8 0.2 - 0.8 K/cumm ISAAC Comment:Testing performed by : [address] [address] Eosinophil abs 0.5 0.0 - 0.5 K/cumm ISAAC Comment:Testing performed by : [address] [address] Basophil abs 0.1 0.0 - 0.1 K/cumm ISAAC Comment:Testing performed by : [address] [address] Neutrophil pct 64.2 % ISAAC Comment: Interpretive Data Percent cell count reference ranges are not reported, since discordance with absolute values may lead to misinterpretation of CBC data. Current Interpretive Data was last revised on 2018. Testing performed by: [address] [address] Imm gran pct 0.4 % ISAAC Comment: Interpretive Data Percent cell count reference ranges are not reported, since discordance with absolute values may lead to misinterpretation of CBC data. Current Interpretive Data was last revised on 2018. Testing performed by: [address] [place]., [address] Lymphocyte pct 12.0 % [facility] Comment: Interpretive Data Percent cell count reference ranges are not reported, since discordance with absolute values may lead to misinterpretation of CBC data. Current Interpretive Data was last revised on 2018. Testing performed by: [address] [address] Monocyte pct 13.3 % ISAAC Comment: Interpretive Data Percent cell count reference ranges are not reported, since discordance with absolute values may lead to misinterpretation of CBC data. Current Interpretive Data was last revised on 2018. Testing performed by: [address] [address] Eosinophil pct 9.0 % [facility] Comment: Interpretive Data Percent cell count reference ranges are not reported, since discordance with absolute values may lead to misinterpretation of CBC data. Current Interpretive Data was last revised on 2018. Testing performed by: [address] [address] Basophil pct 1.1 % [facility] Comment: Interpretive Data Percent cell count reference ranges are not reported, since discordance with absolute values may lead to misinterpretation of CBC data. Current Interpretive Data was last revised on 2018. Testing performed by: [address] [address] Blood 10/28/2024 9:01 AM ADULT DAY CARE WORKER 10/28/2024 9:03 AM ADULT DAY CARE WORKER Nena Cano [employer]UC[employer] MECHANICAL SPECIALIST LAB BLOOD ORDERABLES Final Result [facility]ADAM [address] [facility] [place] [address] * (ABNORMAL) Iron profile w/ IBC (10/28/2024 9:01 AM ADULT DAY CARE WORKER) Iron 164(H) 50 - 150 mcg/dL Comment:Testing performed by : [address] [address] TIBC 232(L) 250 - 400 mcg/dL ISAAC Comment:Testing performed by : [address] [address] Transferrin saturation 71(H) 20 - 50 % ISAAC Comment:Testing performed by : [address] [address] Blood 10/28/2024 9:01 AM ADULT DAY CARE WORKER 10/28/2024 9:37 AM ADULT DAY CARE WORKER Nena Cano NP LAB BLOOD ORDERABLES Final Result ISAAC [address] [facility] [place] [address] * (ABNORMAL) CBC with auto differential (10/28/2024 9:01 AM ADULT DAY CARE WORKER) WBC 5.7 3.8 - 9.9 K/cumm Comment:Testing performed by : [address] [address] Hgb 7.0(L) 13.0 - 17.5 g/dL ISAAC Comment:Testing performed by : [address] [address] Hct 23.6(L) 38.9 - 50.3 % ISAAC Comment:Testing performed by : [address] [address] Plt 324 150 - 400 K/cumm ISAAC Comment:Testing performed by : [address] [address] MPV 8.5(L) 9.1 - 12.3 fL ISAAC Comment:Testing performed by : [address] [address] RBC 2.36(L) 4.30 - 5.80 M/cumm ISAAC Comment:Testing performed by : [address] [address] MCV 100.0(H) 81.3 - 96.4 fL ISAAC Comment:Testing performed by : [address] [address] MCH 29.7 27.1 - 33.3 pg ISAAC SERNA Comment:Testing performed by : [address] [address] MCHC 29.7(L) 32.3 - 35.7 g/dL ISAAC SERNA Comment:Testing performed by : [address] [address] RDW CV 16.8(H) 11.1 - 14.9 % ISAAC SERNA Comment:Testing performed by : [address], [address] RDW SD 58.3(H) 35.7 - 48.1 fL ISAAC Comment:Testing performed by : [address] [address] NRBC abs 0.00 0.00 - 0.01 K/cumm ISAAC Comment:Testing performed by : [address], [address] Blood 10/28/2024 9:01 AM ADULT DAY CARE WORKER 10/28/2024 9:03 AM ADULT DAY CARE WORKER Nena Cano [employer] MECH[employer]ICAL SPECIALIST LAB BLOOD ORDERABLES Final Result Performing Organization Address City/[facility]/ZIP Co de Phone Number [address] [address] * ABO/Rh (10/28/2024 9:01 AM ADULT DAY CARE WORKER) ABO/Rh A Positive Comment:Testing performed by : [address], [address] Blood 10/28/2024 9:01 AM ADULT DAY CARE WORKER 10/28/2024 9:37 AM ADULT DAY CARE WORKER Narrative ISAAC - 10/28/2024 10:13 AM ADULT DAY CARE WORKER Has the patient had Daratumumab or Isatuximab in the past 6 months?->Unknown Nena Cano NP LAB BLOOD BANK TEST ORDERAB LES Final Result Performing Organization Address City/[facility]/ZIP Co de Phone Number [address] [place] [address] * (ABNORMAL) Reticulocyte Count (10/28/2024 9:01 AM ADULT DAY CARE WORKER) [facility] Retics, absolute 0.221(H) 0.020 - 0.087 M/cumm Comment:Testing performed by : [address] [address] Retics 9.4(H) 0.4 - 2.9 % ISAAC Comment:Testing performed by : [address] [address] Reticulocyte Hgb 26.9(L) 30.5 - 38.0 pg ISAAC Comment:Testing performed by : [address] [address] Blood 10/28/2024 9:01 AM ADULT DAY CARE WORKER 10/28/2024 9:03 AM ADULT DAY CARE WORKER Nena Cano NP LAB BLOOD ORDERABLES Final Result Performing Organization Address [facility] Co de Phone Number [address] [address] * Crossmatch (10/28/2024 9:01 AM ADULT DAY CARE WORKER) [facility] Crossmatch Compatible [facility] Unit number for crossmatch [id number] [facility] Crossmatch Compatible [facility] Unit number for crossmatch [id number] [facility] Blood 10/28/2024 9:01 AM ADULT DAY CARE WORKER 10/28/2024 9:37 AM ADULT DAY CARE WORKER Nena Cano NP LAB BLOOD BANK TEST ORDERAB LES Edited Result - Final Performing Organization Address [facility] de Phone Number [address] [place] [address] * Antibody screen (10/28/2024 9:01 AM ADULT DAY CARE WORKER) [facility] Divina, indirect, Gel Interpretation Negative ABSC Comment:Testing performed by : [address] [address] Blood 10/28/2024 9:01 AM ADULT DAY CARE WORKER 10/28/2024 9:37 AM ADULT DAY CARE WORKER Narrative ISAAC - 10/28/2024 10:13 AM ADULT DAY CARE WORKER Has the patient had Daratumumab or Isatuximab in the past 6 months?->Unknown Nena Cano [employer] MECH[employer] SPECIALIST LAB BLOOD BANK TEST ORDERAB LES Final Result Performing Organization Address City/[facility] Co de Phone Number ISAAC [address] [place] [address] * Ferritin (10/28/2024 9:01 AM ADULT DAY CARE WORKER) Pathologist [facility] Ferritin 95 30 - 400 ng/mL Comment:Testing performed by : [address], [address] Blood 10/28/2024 9:01 AM ADULT DAY CARE WORKER 10/28/2024 9:37 AM ADULT DAY CARE WORKER Nena Cano [employer] MECH[employer]ICAL SPECIALIST LAB BLOOD ORDERABLES Final Result Performing Organization Address [facility] de Phone Number DAYANA[address] [address] * (ABNORMAL) Comprehensive metabolic panel (10/28/2024 9:01 AM ADULT DAY CARE WORKER) Pathologist [facility] Sodium 137 135 - 145 mmol/L Comment:Testing performed by : [address] [address] Potassium, pl 4.2 3.3 - 4.9 mmol/L ISAAC Comment:Testing performed by : [address] [address] Chloride 106 97 - 110 mmol/L ISAAC Comment:Testing performed by : [address] [address] CO2 21(L) 22 - 32 mmol/L ISAAC Comment:Testing performed by : [address] [address] Anion gap 10 2 - 15 mmol/L ISAAC Comment:Testing performed by : [address] [address] BUN 16 6 - 25 mg/dL ISAAC Comment:Testing performed by : [address] [address] Creatinine 2.10(H) 0.80 - 1.30 mg/dL ISAAC Comment:Testing performed by : [address] [address] Glucose 102 70 - 199 mg/dL ISAAC [...] was last revised 2022. Testing performed by: [address] [address] Calcium 8.5 8.5 - 10.3 mg/dL ISAAC Comment:Testing performed by : [address] [address] Bilirubin, total 0.2 0.1 - 1.2 mg/dL ISAAC Comment:Testing performed by : [address] [address] Protein, pl 6.2(L) 6.5 - 8.5 g/dL ISAAC Comment:Testing performed by : [address] [address] Albumin 3.5 3.5 - 5.0 g/dL ISAAC Comment:Testing performed by : [address] [address] Alk phos 71 40 - 130 Units/L ISAAC Comment:Testing performed by : [address] [address] ALT 10 7 - 55 Units/L ISAAC Comment:Testing performed by : [address] [address] AST 15 10 - 50 Units/L ISAAC Comment:Testing performed by : [address] [address] Blood 10/28/2024 9:01 AM ADULT DAY CARE WORKER 10/28/2024 9:03 AM ADULT DAY CARE WORKER Nena Cano NP LAB BLOOD ORDERABLES Final Result Performing Organization Address City/[facility]/ZIP Co de Phone Number ISAAC [address] [address] * (ABNORMAL) eGFR (10/19/2024 8:53 AM ADULT DAY CARE WORKER) eGFR 34(L) >=60 mL/min/1. 73 m2 Comment: [...] was last reviewed 2021. Testing performed by: [address] [address] Blood 10/19/2024 8:53 AM ADULT DAY CARE WORKER 10/19/2024 8:55 AM ADULT DAY CARE WORKER Nena Cano NP LAB BLOOD ORDERABLES Final Result Performing Organization Address City/[facility]/ZIP Co de Phone Number [place] [address] [facility] [address] [address] * (ABNORMAL) Differential, auto (10/19/2024 8:53 AM ADULT DAY CARE WORKER) Neutrophil abs 3.2 1.5 - 6.5 K/cumm Comment:Testing performed by : [address] [address] Imm gran abs 0.0 0.0 - 0.1 K/cumm ISAAC Comment:Testing performed by : [address] [address] Lymphocyte abs 0.7(L) 0.8 - 3.3 K/cumm ISAAC Comment:Testing performed by : [address] [address] Monocyte abs 0.7 0.2 - 0.8 K/cumm [facility] Comment:Testing performed by : [address] [address] Eosinophil abs 0.6(H) 0.0 - 0.5 K/cumm [facility]ADAM Comment:Testing performed by : [address] [address] Basophil abs 0.1 0.0 - 0.1 K/cumm [facility] Comment:Testing performed by : [address] [address] Neutrophil pct 60.9 % [facility] Comment: Interpretive Data Percent cell count reference ranges are not reported, since discordance with absolute values may lead to misinterpretation of CBC data. Current Interpretive Data was last revised on 2018. Testing performed by: [address] [address] Imm gran pct 0.8 % [facility] Comment: Interpretive Data Percent cell count reference ranges are not reported, since discordance with absolute values may lead to misinterpretation of CBC data. Current Interpretive Data was last revised on 2018. Testing performed by: [address] [address] Lymphocyte pct 12.7 % CERNER Comment: Interpretive Data Percent cell count reference ranges are not reported, since discordance with absolute values may lead to misinterpretation of CBC data. Current Interpretive Data was last revised on 2018. Testing performed by: [address] [address] Monocyte pct 13.3 % ISAAC Comment: Interpretive Data Percent cell count reference ranges are not reported, since discordance with absolute values may lead to misinterpretation of CBC data. Current Interpretive Data was last revised on 2018. Testing performed by: [address] [address] Eosinophil pct 11.3 % ISAAC Comment: Interpretive Data Percent cell count reference ranges are not reported, since discordance with absolute values may lead to misinterpretation of CBC data. Current Interpretive Data was last revised on 2018. Testing performed by: [address] [address] Basophil pct 1.0 % ISAAC Comment: Interpretive Data Percent cell count reference ranges are not reported, since discordance with absolute values may lead to misinterpretation of CBC data. Current Interpretive Data was last revised on 2018. Testing performed by: [address] [address] Blood 10/19/2024 8:53 AM ADULT DAY CARE WORKER 10/19/2024 8:55 AM ADULT DAY CARE WORKER Nena Cano [employer]UCLE[employer] MECHANICAL SPECIALIST LAB BLOOD ORDERABLES Final Result [facility]ADAM [address] [facility] Department of Laboratories [place], [place] [id number] * (ABNORMAL) Iron profile w/ IBC (10/19/2024 8:53 AM ADULT DAY CARE WORKER) Iron 140 50 - 150 mcg/dL Comment:Testing performed by : [address] [address] TIBC 242(L) 250 - 400 mcg/dL ISAAC SERNA Comment:Testing performed by : [address] [address] Transferrin saturation 58(H) 20 - 50 % ISAAC Comment:Testing performed by : [address] [address] Blood 10/19/2024 8:53 AM ADULT DAY CARE WORKER 10/19/2024 9:44 AM ADULT DAY CARE WORKER Nena Cano NP LAB BLOOD ORDERABLES Final Result ISAAC SERNA [address] [facility] [place] [address] * (ABNORMAL) CBC with auto differential (10/19/2024 8:53 AM ADULT DAY CARE WORKER) WBC 5.2 3.8 - 9.9 K/cumm Comment:Testing performed by : [address] [address] Hgb 8.8(L) 13.0 - 17.5 g/dL ISAAC Comment:Testing performed by : [address] [address] Hct 29.5(L) 38.9 - 50.3 % ISAAC Comment:Testing performed by : [address] [address] Plt 286 150 - 400 K/cumm ISAAC Comment:Testing performed by : [address] [address] MPV 8.4(L) 9.1 - 12.3 fL ISAAC Comment:Testing performed by : [address] [address] RBC 2.97(L) 4.30 - 5.80 M/cumm ISAAC Comment:Testing performed by : [address] [address] MCV 99.3(H) 81.3 - 96.4 fL ISAAC Comment:Testing performed by : [address] [address] MCH 29.6 27.1 - 33.3 pg ISAAC SERNA Comment:Testing performed by : [address] [address] MCHC 29.8(L) 32.3 - 35.7 g/dL ISAAC SERNA Comment:Testing performed by : [address] [address] RDW CV 15.8(H) 11.1 - 14.9 % ISAAC SERNA Comment:Testing performed by : [address] [address] RDW SD 56.5(H) 35.7 - 48.1 fL ISAAC SERNA Comment:Testing performed by : [address] [address] NRBC abs 0.00 0.00 - 0.01 K/cumm ISAAC SERNA Comment:Testing performed by : [address] [address] Blood 10/19/2024 8:53 AM ADULT DAY CARE WORKER 10/19/2024 8:55 AM ADULT DAY CARE WORKER Nena Cano [employer] MECH[employer] SPECIALIST LAB BLOOD ORDERABLES Final Result Performing Organization Address [facility] Co de Phone Number ISAAC [address] [address] * (ABNORMAL) Reticulocyte Count (10/19/2024 8:53 AM ADULT DAY CARE WORKER) Retics, absolute 0.185(H) 0.020 - 0.087 M/cumm Comment:Testing performed by : [address] [address] Retics 6.2(H) 0.4 - 2.9 % ISAAC SERNA Comment:Testing performed by : [address] [address] Reticulocyte Hgb 28.6(L) 30.5 - 38.0 pg ISAAC SERNA Comment:Testing performed by : [address] [address] Blood 10/19/2024 8:53 AM ADULT DAY CARE WORKER 10/19/2024 8:55 AM ADULT DAY CARE WORKER Nena Cano N[employer] MECHANICAL SPECIALIST LAB BLOOD ORDERABLES Final Result Performing Organization Address [facility] Co de Phone Number ISAAC [address] [place] [address] * Ferritin (10/19/2024 8:53 AM ADULT DAY CARE WORKER) Pathologist [facility] Ferritin 109 30 - 400 ng/mL Comment:Testing performed by : [address] [address] Blood 10/19/2024 8:53 AM ADULT DAY CARE WORKER 10/19/2024 9:44 AM ADULT DAY CARE WORKER Nena Cano NUC[employer] MECHANICAL SPECIALIST LAB BLOOD ORDERABLES Final Result [facility] [address] [facility] [place] [address] * (ABNORMAL) Comprehensive metabolic panel (10/19/2024 8:53 AM ADULT DAY CARE WORKER) Pathologist [facility] Sodium 139 135 - 145 mmol/L Comment:Testing performed by : [address] [address] Potassium, pl 4.1 3.3 - 4.9 mmol/L ISAAC Comment:Testing performed by : [address] [address] Chloride 106 97 - 110 mmol/L ISAAC Comment:Testing performed by : [address] [address] CO2 24 22 - 32 mmol/L ISAAC Comment:Testing performed by : [address] [address] Anion gap 9 2 - 15 mmol/L ISAAC Comment:Testing performed by : [address] [address] BUN 18 6 - 25 mg/dL ISAAC Comment:Testing performed by : [address] [address] Creatinine 2.00(H) 0.80 - 1.30 mg/dL ISAAC Comment:Testing performed by : [address] [address] Glucose 101 70 - 199 mg/dL ISAAC [...] was last revised 2022. Testing performed by: [address] [address] Calcium 8.8 8.5 - 10.3 mg/dL ISAAC Comment:Testing performed by : [address] [address] Bilirubin, total 0.2 0.1 - 1.2 mg/dL ISAAC Comment:Testing performed by : [address] [address] Protein, pl 6.6 6.5 - 8.5 g/dL ISAAC Comment:Testing performed by : [address] [address] Albumin 3.8 3.5 - 5.0 g/dL ISAAC Comment:Testing performed by : [address] [address] Alk phos 72 40 - 130 Units/L ISAAC Comment:Testing performed by : [address] [address] ALT 9 7 - 55 Units/L ISAAC Comment:Testing performed by : [address] [address] AST 15 10 - 50 Units/L ISAAC Comment:Testing performed by : [address] [address] Blood 10/19/2024 8:53 AM ADULT DAY CARE WORKER 10/19/2024 8:55 AM ADULT DAY CARE WORKER us Nena Cano NP LAB BLOOD ORDERABLES Final Result ISAAC [address] [facility] Department of Laboratories [place], [place] [id number] * (ABNORMAL) eGFR (10/05/2024 9:15 AM ADULT DAY CARE WORKER) eGFR 45(L) >=60 mL/min/1. 73 m2 Comment: [...] was last reviewed 2021. Testing performed by: [address] [address] Blood 10/05/2024 9:15 AM ADULT DAY CARE WORKER 10/05/2024 9:16 AM ADULT DAY CARE WORKER Nena Cano NP LAB BLOOD ORDERABLES Final Result ISAAC [address] [facility] [place] [address] * (ABNORMAL) Differential, auto (10/05/2024 9:15 AM ADULT DAY CARE WORKER) Pathologist [facility] Neutrophil abs 3.9 1.5 - 6.5 K/cumm Comment:Testing performed by : [address] [address] Imm gran abs 0.1 0.0 - 0.1 K/cumm ISAAC SERNA Comment:Testing performed by : [address] [address] Lymphocyte abs 0.6(L) 0.8 - 3.3 K/cumm ISAAC ESRNA Comment:Testing performed by : [address], [place]., [address] Monocyte abs 0.6 0.2 - 0.8 K/cumm [facility] Comment:Testing performed by : [address], [place]., [address] Eosinophil abs 0.4 0.0 - 0.5 K/cumm [facility] Comment:Testing performed by : [address], [place]., [address] Basophil abs 0.1 0.0 - 0.1 K/cumm [facility] Comment:Testing performed by : [address] [address] Neutrophil pct 68.4 % [facility] Comment: Interpretive Data Percent cell count reference ranges are not reported, since discordance with absolute values may lead to misinterpretation of CBC data. Current Interpretive Data was last revised on 2018. Testing performed by: [address] [address] Imm gran pct 1.1 % [facility] Comment: Interpretive Data Percent cell count reference ranges are not reported, since discordance with absolute values may lead to misinterpretation of CBC data. Current Interpretive Data was last revised on 2018. Testing performed by: [address] [address] Lymphocyte pct 11.3 % [facility] Comment: Interpretive Data Percent cell count reference ranges are not reported, since discordance with absolute values may lead to misinterpretation of CBC data. Current Interpretive Data was last revised on 2018. Testing performed by: [address] [address] Monocyte pct 11.1 % [facility] Comment: Interpretive Data Percent cell count reference ranges are not reported, since discordance with absolute values may lead to misinterpretation of CBC data. Current Interpretive Data was last revised on 2018. Testing performed by: [address] [address] Eosinophil pct 7.2 % [facility] Comment: Interpretive Data Percent cell count reference ranges are not reported, since discordance with absolute values may lead to misinterpretation of CBC data. Current Interpretive Data was last revised on 2018. Testing performed by: [address] [address] Basophil pct 0.9 % ISAAC SERNA Comment: Interpretive Data Percent cell count reference ranges are not reported, since discordance with absolute values may lead to misinterpretation of CBC data. Current Interpretive Data was last revised on 2018. Testing performed by: [address] [address] Blood 10/05/2024 9:15 AM ADULT DAY CARE WORKER 10/05/2024 9:16 AM ADULT DAY CARE WORKER Nena Cano [employer]CH[employer] SPECIALIST LAB BLOOD ORDERABLES Final Result Performing Organization Address [facility] de Phone Number ISAAC [address] [address] * (ABNORMAL) Iron profile w/ IBC (10/05/2024 9:15 AM ADULT DAY CARE WORKER) Pathologist [facility] Iron 92 50 - 150 mcg/dL Comment:Testing performed by : [address] [address] TIBC 225(L) 250 - 400 mcg/dL ISAAC SERNA Comment:Testing performed by : [address] [address] Transferrin saturation 41 20 - 50 % ISAAC Comment:Testing performed by : [address] [address] Blood 10/05/2024 9:15 AM ADULT DAY CARE WORKER 10/05/2024 9:56 AM ADULT DAY CARE WORKER Nena Cano NUC[employer] MECHANICAL SPECIALIST LAB BLOOD ORDERABLES Final Result Performing Organization Address City/[facility] Co de Phone Number DAYANA[address] [place] [address] * (ABNORMAL) CBC with auto differential (10/05/2024 9:15 AM ADULT DAY CARE WORKER) WBC 5.7 3.8 - 9.9 K/cumm Comment:Testing performed by : [address] [address] Hgb 9.3(L) 13.0 - 17.5 g/dL ISAAC Comment:Testing performed by : [address] [address] Hct 30.3(L) 38.9 - 50.3 % CERADAM Comment:Testing performed by : [address] [address] Plt 294 150 - 400 K/cumm CERADAM Comment:Testing performed by : [address] [address] MPV 8.5(L) 9.1 - 12.3 fL CERADAM Comment:Testing performed by : [address] [address] RBC 3.03(L) 4.30 - 5.80 M/cumm CERADAM Comment:Testing performed by : [address] [address] MCV 100.0(H) 81.3 - 96.4 fL CERADAM Comment:Testing performed by : [address] [address] MCH 30.7 27.1 - 33.3 pg CERADAM Comment:Testing performed by : [address] [address] MCHC 30.7(L) 32.3 - 35.7 g/dL CERADAM Comment:Testing performed by : [address], [address] RDW CV 15.9(H) 11.1 - 14.9 % CERADAM Comment:Testing performed by : [address] [address] RDW SD 58.1(H) 35.7 - 48.1 fL CERADAM Comment:Testing performed by : [address] [address] NRBC abs 0.00 0.00 - 0.01 K/cumm ISAAC Comment:Testing performed by : [address], [address] Blood 10/05/2024 9:15 AM ADULT DAY CARE WORKER 10/05/2024 9:16 AM ADULT DAY CARE WORKER Nena Cano [employer] LAB BLOOD ORDERABLES Final Result DAYANA[address] [address] * (ABNORMAL) Reticulocyte Count (10/05/2024 9:15 AM ADULT DAY CARE WORKER) Pathologist [facility] Retics, absolute 0.132(H) 0.020 - 0.087 M/cumm Comment:Testing performed by : [address] [address] Retics 4.3(H) 0.4 - 2.9 % ISAAC Comment:Testing performed by : [address] [address] Reticulocyte Hgb 32.2 30.5 - 38.0 pg ISAAC Comment:Testing performed by : [address] [address] Blood 10/05/2024 9:1 5 AM ADULT DAY CARE WORKER 10/05/2024 9:16 AM ADULT DAY CARE WORKER Nena Cano [employer] LAB BLOOD ORDERABLES Final Result Performing Organization Address [facility] Co de Phone Number [address] [address] * Direct antiglobulin test (10/05/2024 9:15 AM ADULT DAY CARE WORKER) [facility] RAMA Poly Interp Negative Comment:Testing performed by : [address] [address] Blood 10/05/2024 9:15 AM ADULT DAY CARE WORKER 10/05/2024 9:56 AM ADULT DAY CARE WORKER Nena Cano [employer] LAB BLOOD BANK TEST ORDERAB LES Final Result ISAAC [address] [address] * Lactate dehydrogenase (LD) (10/05/2024 9:15 AM ADULT DAY CARE WORKER) Lactate dehydrogenase (LDH) 142 100 - 250 Units/L Comment:Testing performed by : [address] [address] Blood 10/05/2024 9:15 AM ADULT DAY CARE WORKER 10/05/2024 9:16 AM ADULT DAY CARE WORKER Nena Cano [employer] LAB BLOOD ORDERABLES Final Result Performing Organization Address City/[facility]/ZIP Co de Phone Number ISAAC [address] [address] * Haptoglobin (10/05/2024 9:15 AM ADULT DAY CARE WORKER) Haptoglobin 160 30 - 200 mg/dL Blood 10/05/2024 9:15 AM ADULT DAY CARE WORKER 10/05/2024 12:52 PM ADULT DAY CARE WORKER Nena Cano [employer] LAB BLOOD ORDERABLES Final Result Performing Organization Address [facility] Co de Phone Number ISAAC [address] [address] * Ferritin (10/05/2024 9:15 AM ADULT DAY CARE WORKER) Ferritin 156 30 - 400 ng/mL Comment:Testing performed by : [address] [address] Blood 10/05/2024 9:15 AM ADULT DAY CARE WORKER 10/05/2024 9:56 AM ADULT DAY CARE WORKER Nena Cano [employer] LAB BLOOD ORDERABLES Final Result ISAAC [address] [address] * (ABNORMAL) Comprehensive metabolic panel (10/05/2024 9:15 AM ADULT DAY CARE WORKER) [facility] Signature Sodium 140 135 - 145 mmol/L Comment:Testing performed by : [address], [place]., [address] Potassium, pl 4.4 3.3 - 4.9 mmol/L ISAAC Comment:Testing performed by : [address], [place]., [address] Chloride 106 97 - 110 mmol/L ISAAC Comment:Testing performed by : [address], [place]., [address] CO2 26 22 - 32 mmol/L ISACA Comment:Testing performed by : [address], [place]., [address] Anion gap 8 2 - 15 mmol/L ISAAC Comment:Testing performed by : [address], [place]., [address] BUN 16 6 - 25 mg/dL ISAAC Comment:Testing performed by : [address], [place]., [address] Creatinine 1.60(H) 0.80 - 1.30 mg/dL ISAAC Comment:Testing performed by : [address], [place]., [address] Glucose 104 70 - 199 mg/dL ISAAC Comment: Interpretive [...] was last revised 2022. Testing performed by: [address] [address] Calcium 8.5 8.5 - 10.3 mg/dL ISAAC Comment:Testing performed by : [address], [place]., [address] Bilirubin, total <0.2 0.1 - 1.2 mg/dL ISAAC SERNA Comment:Testing performed by : [address] [address] Protein, pl 6.2(L) 6.5 - 8.5 g/dL ISAAC SERNA Comment:Testing performed by : [address] [address] Albumin 3.7 3.5 - 5.0 g/dL ISAAC Comment:Testing performed by : [address] [address] Alk phos 65 40 - 130 Units/L ISAAC Comment:Testing performed by : [address] [address] ALT 10 7 - 55 Units/L ISAAC Comment:Testing performed by : [address] [address] AST 16 10 - 50 Units/L ISAAC Comment:Testing performed by : [address] [address] Blood 10/05/2024 9:15 AM ADULT DAY CARE WORKER 10/05/2024 9:16 AM ADULT DAY CARE WORKER us Nena Cano [employer] LAB BLOOD ORDERABLES Final Result ISAAC [address] [facility] Department of Laboratories [place], [place] [id number] * (ABNORMAL) eGFR (09/19/2024 8:23 AM ADULT DAY CARE WORKER) eGFR 42(L) >=60 mL/min/1. 73 m2 Comment: [...] was last reviewed 2021. Testing performed by: [address] [address] Blood 09/19/2024 8:23 AM ADULT DAY CARE WORKER 09/19/2024 8:27 AM ADULT DAY CARE WORKER us Nena Cano [employer] LAB BLOOD ORDERABLES Final Result ISAAC [address] [facility] Department of Laboratories [place], [place] [id number] * Differential, auto (09/19/2024 8:23 AM ADULT DAY CARE WORKER) Neutrophil abs 3.1 1.5 - 6.5 K/cumm Comment:Testing performed by : [address] [address] Imm gran abs 0.0 0.0 - 0.1 K/cumm ISAAC Comment:Testing performed by : [address] [address] Lymphocyte abs 0.9 0.8 - 3.3 K/cumm ISAAC Comment:Testing performed by : [address] [address] Monocyte abs 0.6 0.2 - 0.8 K/cumm ISAAC Comment:Testing performed by : [address] [address] Eosinophil abs 0.3 0.0 - 0.5 K/cumm ISAAC Comment:Testing performed by : [address] [address] Basophil abs 0.1 0.0 - 0.1 K/cumm ISAAC Comment:Testing performed by : [address] [address] Neutrophil pct 62.2 % ISAAC Comment: Interpretive Data Percent cell count reference ranges are not reported, since discordance with absolute values may lead to misinterpretation of CBC data. Current Interpretive Data was last revised on 2018. Testing performed by: [address] [address] Imm gran pct 0.6 % ISAAC Comment: Interpretive Data Percent cell count reference ranges are not reported, since discordance with absolute values may lead to misinterpretation of CBC data. Current Interpretive Data was last revised on 2018. Testing performed by: [address] [address] Lymphocyte pct 18.2 % [facility] Comment: Interpretive Data Percent cell count reference ranges are not reported, since discordance with absolute values may lead to misinterpretation of CBC data. Current Interpretive Data was last revised on 2018. Testing performed by: [address] [address] Monocyte pct 11.0 % [facility] Comment: Interpretive Data Percent cell count reference ranges are not reported, since discordance with absolute values may lead to misinterpretation of CBC data. Current Interpretive Data was last revised on 2018. Testing performed by: [address] [address] Eosinophil pct 6.8 % [facility] Comment: Interpretive Data Percent cell count reference ranges are not reported, since discordance with absolute values may lead to misinterpretation of CBC data. Current Interpretive Data was last revised on 2018. Testing performed by: [address] [address] Basophil pct 1.2 % [facility] Comment: Interpretive Data Percent cell count reference ranges are not reported, since discordance with absolute values may lead to misinterpretation of CBC data. Current Interpretive Data was last revised on 2018. Testing performed by: [address] [address] Blood 09/19/2024 8:23 AM ADULT DAY CARE WORKER 09/19/2024 8:28 AM ADULT DAY CARE WORKER Nena Cano NP LAB BLOOD ORDERABLES Final Result ISAAC [address] [facility] [place] [address] * (ABNORMAL) Iron profile w/ IBC (09/19/2024 8:23 AM ADULT DAY CARE WORKER) [facility] Iron 107 50 - 150 mcg/dL Comment:Testing performed by : [address] [address] TIBC 249(L) 250 - 400 mcg/dL ISAAC Comment:Testing performed by : [address] [address] Transferrin saturation 43 20 - 50 % ISAAC Comment:Testing performed by : [address] [address] Blood 09/19/2024 8:23 AM ADULT DAY CARE WORKER 09/19/2024 10:15 AM ADULT DAY CARE WORKER Nena Cano [employer] LAB BLOOD ORDERABLES Final Result Performing Organization Address City/State/[facility] Co de Phone Number ISAAC [address] [facility] [place] [address] * (ABNORMAL) CBC with auto differential (09/19/2024 8:23 AM ADULT DAY CARE WORKER) [facility] WBC 5.0 3.8 - 9.9 K/cumm Comment:Testing performed by : [address] [address] Hgb 9.7(L) 13.0 - 17.5 g/dL ISAAC SERNA Comment:Testing performed by : [address] [address] Hct 31.5(L) 38.9 - 50.3 % ISAAC SERNA Comment:Testing performed by : [address] [address] Plt 272 150 - 400 K/cumm ISAAC SERNA Comment:Testing performed by : [address] [address] MPV 8.5(L) 9.1 - 12.3 fL ISAAC SERNA Comment:Testing performed by : [address] [address] RBC 3.20(L) 4.30 - 5.80 M/cumm ISAAC Comment:Testing performed by : [address] [address] MCV 98.4(H) 81.3 - 96.4 fL ISAAC Comment:Testing performed by : [address] [address] MCH 30.3 27.1 - 33.3 pg ISAAC Comment:Testing performed by : [address], [address] MCHC 30.8(L) 32.3 - 35.7 g/dL ISAAC Comment:Testing performed by : [address], [address] RDW CV 16.4(H) 11.1 - 14.9 % ISAAC Comment:Testing performed by : [address], [address] RDW SD 59.2(H) 35.7 - 48.1 fL SIAAC Comment:Testing performed by : [address] [address] NRBC abs 0.00 0.00 - 0.01 K/cumm ISAAC Comment:Testing performed by : [address] [address] Blood 09/19/2024 8:23 AM ADULT DAY CARE WORKER 09/19/2024 8:28 AM ADULT DAY CARE WORKER Nena Cano [employer] LAB BLOOD ORDERABLES Final Result [facility] [address] [facility] Department [place] [address] * (ABNORMAL) Reticulocyte Count (09/19/2024 8:23 AM ADULT DAY CARE WORKER) Retics, absolute 0.118(H) 0.020 - 0.087 M/cumm Comment:Testing performed by : [address], [address] Retics 3.7(H) 0.4 - 2.9 % ISAAC SERNA Comment:Testing performed by : [address] [address] Reticulocyte Hgb 31.7 30.5 - 38.0 pg ISAAC SERNA Comment:Testing performed by : [address] [address] Blood 09/19/2024 8:23 AM ADULT DAY CARE WORKER 09/19/2024 8:28 AM ADULT DAY CARE WORKER Nena Cano [employer] LAB BLOOD ORDERABLES Final Result Performing Organization Address [facility] de Phone Number [address] [place] [address] * Ferritin (09/19/2024 8:23 AM ADULT DAY CARE WORKER) [facility] Ferritin 52 30 - 400 ng/mL Comment:Testing performed by : [address] [address] Blood 09/19/2024 8:23 AM ADULT DAY CARE WORKER 09/19/2024 10:15 AM ADULT DAY CARE WORKER Nena Cano [employer] LAB BLOOD ORDERABLES Final Result Performing Organization Address [facility] de Phone Number DAYANA[address] [address] * (ABNORMAL) Comprehensive metabolic panel (09/19/2024 8:23 AM ADULT DAY CARE WORKER) [facility] Sodium 143 135 - 145 mmol/L Comment:Testing performed by : [address] [address] Potassium, pl 3.9 3.3 - 4.9 mmol/L ISAAC SERNA Comment:Testing performed by : [address] [address] Chloride 108 97 - 110 mmol/L ISAAC SERNA Comment:Testing performed by : [address] [address] CO2 26 22 - 32 mmol/L ISAAC SERNA Comment:Testing performed by : [address] [place] [address] Anion gap 9 2 - 15 mmol/L ISAAC Comment:Testing performed by : [address] [address] BUN 15 6 - 25 mg/dL ISAAC Comment:Testing performed by : [address] [address] Creatinine 1.70(H) 0.80 - 1.30 mg/dL ISAAC Comment:Testing performed by : [address] [address] Glucose 97 70 - 199 mg/dL ISAAC Comment: Interpretive [...] was last revised 2022. Testing performed by: [address] [address] Calcium 8.5 8.5 - 10.3 mg/dL ISAAC Comment:Testing performed by : [address] [address] Bilirubin, total 0.2 0.1 - 1.2 mg/dL ISAAC Comment:Testing performed by : [address] [address] Protein, pl 6.4(L) 6.5 - 8.5 g/dL ISAAC Comment:Testing performed by : [address] [address] Albumin 3.6 3.5 - 5.0 g/dL ISAAC Comment:Testing performed by : [address] [address] Alk phos 77 40 - 130 Units/L ISAAC Comment:Testing performed by : [address] [address] ALT 8 7 - 55 Units/L ISAAC SERNA Comment:Testing performed by : [facility], [address] [place] [address]., [address] AST 13 10 - 50 Units/L ISAAC SERNA Comment:Testing performed by : [facility], [address] [place] [address]., [address] Blood 09/19/2024 8:23 AM ADULT DAY CARE WORKER 09/19/2024 8:27 AM ADULT DAY CARE WORKER Nena Cano [employer] LAB BLOOD ORDERABLES Final Result ISAAC [address] Department [place] [address] * Surgical pathology (09/15/2024 10:25 AM ADULT DAY CARE WORKER) Small bowel, biopsy 09/15/2024 10:25 AM ADULT DAY CARE WORKER 09/15/2024 11:23 AM ADULT DAY CARE WORKER Narrative 09/17/2024 8:09 PM ADULT DAY CARE WORKER [facility] Department of Pathology [address] [place] [address] Note to Patients: This report may contain [...] : 1950 (Age: 74) Gender: M Address: [address] [place] [address] Hospital #: [id number] Service: Gastro Location: Patient Type: [facility] OUTPATIENT Taken: 09/15/2024 Received: 09/15/2024 Accessioned: 09/15/2024 [...] cm. Entirely submitted. Labeled E1. Jar 0. jjb/09/15/2024 13:46 SHAD Gonzalez, PA ([facility] Microscopic slide review and interpretation for this case was performed at [facility], Department of Surgical Pathology, [address], [place] [id number], [place] [address] CLIA # [id number] us Notinfile Unknown LAB PATHOLOGY ORDERABLES Final Result * EGD (09/15/2024 10:19 AM ADULT DAY CARE WORKER) Anatomical Region Laterality Modality Other Narrative Procedure Note Lucio Rosas MD - 09/15/2024 10:19 AM CST [facility] GI ENDOSCOPY Patient Name: Brennen Olson Procedure Date: 09/15/2024 10:19AM Date of : 1950 Admit Type: Outpatient Age: 74 Gender: Male Attending MD: Lucio Rosas M.D. Room: [facility] ENDOSCOPY ROOM 04 Note Status: Finalized Procedure: [...] On: 09/15/2024 10:19 AM Recognized by the [employer] for promoting quality in endoscopy us Lucio Rosas MD ENDOSCOPY PROCEDURES Final Resul t from Last 3 Months Insurance MEDICARE SOLUTIONS MEDICARE MEDICARE SOLUTIONS MEDICARE Care Teams Curriculum And Assessment Director Relationship Specialty Start Date End Date Jas Alcala MD PCP - General Internal Medicine 02/26/18 Lucio Rosas MD [address] [address] Consulting Physician Gastroenterology 11/28/24 Bianca Hunter MD [address] [place] [address] Medical Oncologist/Kennel Supervisor Medical Oncology 12/07/24
--- OUTSIDE RECORDS SUMMARY | 2024-12-07 16:21 | XMS_ITS | CONTINUITY OF CARE DOCUMENT ---
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 Alen Munguia RN Abnormal holter monitor finding active Elizabeth Mueller RN Bradycardia active Elizabeth Mueller RN Shortness of breath active Jaycee Teresa MD Cellulitis active Jaycee Teresa MD COPD active Jaycee Teresa MD DJD active Jaycee Teresa MD Prostate cancer active Jaycee Teresa MD Sleep apnea active Jaycee Teresa MD DVT active Jaycee Teresa MD Pulmonary embolism WHILE ON ELIQUIS active Jaycee Teresa MD Chest pain-type to be determined active Jaycee Teresa MD Lightheadedness active Jaycee Teresa MD SARS-associated coronavirus active Jaycee Teresa MD vaccinated--modern a Aortic root dilatation active Jaycee nevarez MD HTN essential active Jaycee Teresa MD Ventricular tachycardia active Naty gibbs Frequent PVC active Naty Caruso Preop cardiovasc. examination active Jaycee Teresa MD Leg edema, left active Jaycee Teresa MD Cardiovascular Condition Screening active Jaycee Teresa MD Aortic regurgitation active Jaycee fernandez MD Anemia active Jaycee Teresa MD Cardiology examination active Jaycee nevarez MD Preop cardiovasc. examination active Jaycee Teresa MD ENCOUNTERS Date Type Provider Location Encounter Diag nosis 1 - 1 In-person encounter Office Visit Jaycee Teresa MD [place] [facility] Preop cardiovasc. examination 1 - 1 In-person encounter Office Visit Britney Franklin [facility] Office 6 - 1 In-person encounter Office Visit Jaycee Teresa MD [facility] Cardiology examination 2 - 9 In-person encounter Office Visit Jaycee Teresa MD [place] [facility] 6 - 8 In-person encounter Office Visit Jaycee Teresa MD [place] [facility] Anemia 1 - 1 In-person encounter Office Visit Jaycee Teresa MD [facility] Cardiovascular Condition ScreeningAortic regurgitation 5 - 7 In-person encounter Office Visit Jaycee Teresa MD [place] [facility] 7 - 0 In-person encounter Office Visit Jaycee Teresa MD [place] [facility] 8 - 8 In-person encounter Office Visit Jaycee Teresa MD [place] [facility] 0 - 0 In-person encounter Office Visit Jaycee Teresa MD [place] [facility] Leg edema, left 0 - 1 In-person encounter Office Visit Jaycee Teresa MD [place] [facility] 0 - 0 In-person encounter Office Visit Bryon Potter MD [place] [facility] 6 - 8 In-person encounter Office Visit Jaycee Teresa MD [place] [facility] 1 - 7 In-person encounter Office Visit Bryon Potter MD [place] [facility] 0 - 2 In-person encounter Office Visit Bryon Potter MD [place] [facility] 9 - 3 In-person encounter Office Visit Bryon Potter MD [place] [facility] 7 - 4 In-person encounter Office Visit Jaycee Teresa MD [place] [facility] Preop cardiovasc. examination 6 - 8 In-person encounter Office Visit Bryon Potter MD [facility] Ventricular tachycardiaFrequent PVC 8 - 0 In-person encounter Office Visit Jaycee Teresa MD [place] [facility] Aortic root dilatationHTN essential 6 - 0 In-person encounter Office Visit Jaycee Teresa MD [place] [facility] LightheadednessSARS-associated coronavirus 5 - 3 In-person encounter Office Visit Jaycee Teresa MD [place] [facility] 0 - 0 In-person encounter Office Visit Jaycee Teresa MD [place] [facility] Chest pain-type to be determined 1 - 7 In-person encounter Office Visit Jaycee Teresa MD [place] [facility] Pulmonary embolism WHILE ON ELIQUIS 1 - 4 In-person encounter Office Visit Jaycee Teresa MD [place] [facility] 1 - 1 In-person encounter Office Visit Jaycee Teresa MD [place] [facility] 3 - 1 In-person encounter Office Visit Jaycee Teresa MD [facility] DVT 3 - 5 In-person encounter Office Visit Jaycee Teresa MD [place] [facility] Shortness of breathCellulitisCOPDDJDProstate cancerSleep apnea VITAL SIGNS Date Observation Value Provider Body Mass Index (Ratio) 38.11 kg/m2 Ping Teresa MD blood pressure, diastolic 67 mm[facility]Hg[facility], [facility] 110 mm[Hg] lamar [facility] oxygen saturation, oximetry 96 % [facility] pulse rate 83 /min [facility] respiratory rate E&M 12 /min [facility] weight E&M 281 [lb_av] [facility] height E&M 72 [in_i] [facility] blood pressure, cuff size regular [facility], diastolic 74 mm[Hg] Li nkLogic blood pressure, systolic 125 mm[Hg] Bhavya kLogic Body Mass Index (Ratio) 39.06 kg/m2 Kay Hilldler CABLE SPLICER APPRENTICE blood pressure, cuff size regular Ka yla [facility] blood pressure, diastolic 74 mm[Hg] Ka [facility], systolic 125 mm[Hg] Cary [facility], oximetry 95 % Amber [facility] pulse rate 92 /min Amber [facility] weight E&M 288 [lb_av] Amber [facility] height E&M 72 [in_i] Amber [facility] Body Mass Index (Ratio) 33.77 kg/m2 Ping Teresa MD blood pressure, diastolic 64 mm[Hg] Li nkLog blood pressure, systolic 118 mm[Hg] Bhavya [facility] pulse rate 73 /min Ana Thee blood pressure, cuff size regular As nivia Thee blood pressure, diastolic 64 mm[Hg] As nivia Thee blood pressure, systolic 118 mm[Hg] [place] chandra Thee oxygen saturation, oximetry 96 % [facility] respiratory rate E&M 12 /min [facility] weight E&M 249 [lb_av] [facility] height E&M 72 [in_i] [facility] Body Mass Index (Ratio) 38.78 kg/m2 Evaristo Cabrera blood pressure, cuff size large Ke eveliai Kathleen blood pressure, diastolic 70 mm[Hg] Levi altamiranoi Kathleen blood pressure, systolic 124 mm[Hg] Neetu Vazquez oxygen saturation, oximetry 96 % Mary Ellen Vazquez respiratory rate E&M 14 /min Mary Ellen looney pulse rate 78 /min Mary Ellen Harris [facility] weight E&M 286 [lb_av] Mary Ellen Harris [facility] height E&M 72 [in_i] Mary Ellen Harris [facility] Body Mass Index (Ratio) 38.78 kg/m2 Ping Teresa MD blood pressure, diastolic 86 mm[Hg] Nataliia Log blood pressure, systolic 147 mm[Hg] Bhavya [facility] blood pressure, cuff size regular Ja rret blood pressure, diastolic 86 mm[Hg] Ja rret blood pressure, systolic 147 mm[Hg] Jar ret pulse rate 71 /min Sd oxygen saturation, oximetry 99 % [facility] respiratory rate E&M 16 /min [facility] weight E&M 286 [lb_av] Sd height E&M 72 [in_i] [facility] y Body Mass Index (Ratio) 38.51 kg/m2 Ping Teresa MD blood pressure, cuff size regular [facility] blood pressure, diastolic 73 mm[Hg] [facility] blood pressure, systolic 129 mm[Hg] [facility] pulse rate 77 /min [facility] oxygen saturation, oximetry 98 % [facility] respiratory rate E&M 14 /min [facility] weight E&M 284 [lb_av] [facility] height E&M 72 [in_i] [facility] Body Mass Index (Ratio) 38.51 kg/m2 Obed link Jeremy blood pressure, cuff size regular [facility] blood pressure, diastolic 73 mm[Hg] [facility] blood pressure, systolic 112 mm[Hg] [facility] oxygen saturation, oximetry 97 % [facility] pulse rate 59 /min [facility] respiratory rate E&M 14 /min [facility] weight E&M 284 [lb_av] [facility] height E&M 72 [in_i] [facility] Body Mass Index (Ratio) 35.53 kg/m2 Ping Teresa MD blood pressure, diastolic 82 mm[Hg] Nataliia nkLog blood pressure, systolic 137 mm[Hg] Bhavya kLog blood pressure, cuff size regular Yunior tad blood pressure, diastolic 82 mm[Hg] Yunior huang blood pressure, systolic 137 mm[Hg] Luz Maria elder pulse rate 55 /min Sd respiratory rate E&M 12 /min Sd oxygen saturation, oximetry 97 % Sd weight E&M 262 [lb_av] Sd height E&M 72 [in_i] Sd Body Mass Index (Ratio) 35.53 kg/m2 Ping Teresa MD blood pressure, diastolic 75 mm[Hg] St [place] [place] blood pressure, systolic 127 mm[Hg] Sta kei [place] oxygen saturation, oximetry 96 % Courtneykei [place] pulse rate 70 /min Courtneykei [place] respiratory rate E&M 16 /min Courtney Escalante monique weight E&M 262 [lb_av] Courtneykei [place] height E&M 72 [in_i] Courtneykei [place] Body Mass Index (Ratio) 35.26 kg/m2 Ping Teresa MD pulse rate 49 /min Ale Powell weight E&M 260 [lb_av] Ale Powell respiratory rate E&M 20 /min Ale Powell oxygen saturation, oximetry 96 % Ale Powell blood pressure, diastolic 62 mm[Hg] Kiel Powell blood pressure, systolic 110 mm[Hg] She charlie Powell blood pressure, cuff size regular Kiel Powell height E&M 72 [in_i] Ale Powell Body Mass Index (Ratio) 34.44 kg/m2 Ping Teresa MD blood pressure, diastolic -1 mm[Hg] Nataliia terrellLognoa blood pressure, systolic 119 mm[Hg] Bhavya Zhengnoa blood pressure, diastolic 73 mm[Hg] An mckinley Ervin blood pressure, systolic 119 mm[Hg] Iris fernandez Ervin oxygen saturation, oximetry 98 % Yenifer Ervin pulse rate 68 /min Yenifer Ervin weight E&M 254 [lb_av] Yenifer Ervin blood pressure, cuff size large An mckinley Ervin height E&M 72 [in_i] Yenifer Ervin Body Mass Index (Ratio) 35.12 kg/m2 Yoni Vidhi blood pressure, diastolic 80 mm[Hg] Ri lizeth Phan blood pressure, systolic 116 mm[Hg] Marky juarez Phan blood pressure, cuff size large Ri lizeth Phan oxygen saturation, oximetry 98 % Yvonne Phan respiratory rate E&M 16 /min Brooksdenise lico Phan pulse rate 82 /min Yvonne Bond son weight E&M 259 [lb_av] Yvonne Bond son height E&M 72 [in_i] Yvonne menjivar Body Mass Index (Ratio) 35.94 kg/m2 Ping Teresa MD blood pressure, diastolic 85 mm[Hg] Stacy Ballard blood pressure, systolic 138 mm[Hg] Jim Ballard oxygen saturation, oximetry 97 % Ana Lilia Ballard respiratory rate E&M 16 /min Ana Lilia Ballard pulse rate 60 /min Ana Lilia Ballard weight E&M 265 [lb_av] Ana Lilia Ballard height E&M 72 [in_i] Ana Lilia Ballard Body Mass Index (Ratio) 35.67 kg/m2 Sea Potter MD blood pressure, diastolic 85 mm[Hg] Ri lizeth Phan blood pressure, systolic 125 mm[Hg] Marky juarez [place] oxygen saturation, oximetry 97 % Yvonne Phan pulse rate 73 /min Yvonne Bond son weight E&M 263 [lb_av] Yvonne Bond son respiratory rate E&M 16 /min Cheyanne Montes blood pressure, cuff size large Damaris stanley Montes height E&M 72 [in_i] Virgie Chan d weight E&M 262 [lb_av] Romana Holden Body Mass Index (Ratio) 35.53 kg/m2 Sea Potter MD blood pressure, cuff size large Ke rri Gruenenfelder blood pressure, diastolic 62 mm[Hg] Ke rri Gruenenfelder blood pressure, systolic 124 mm[Hg] Ker ri Dimauenenfelder oxygen saturation, oximetry 98 % Mary Ellen Gruenenfelder respiratory rate E&M 16 /min Mary Ellen G argentinaenepoonamelder pulse rate 71 /min Mar Yellen Gruenenfe lder weight E&M 262 [lb_av] Mary Ellen Gruenenfe lder height E&M 72 [in_i] Mary Ellen Gruenenfe lder Body Mass Index (Ratio) 34.99 kg/m2 [facility] marquis Bobbyaham Body Mass Index (Ratio) 36.48 kg/m2 Yoni Luigirigozalamar blood pressure, diastolic 74 mm[Hg] Damaris stanley Montes blood pressure, systolic 123 mm[Hg] Kian juarez Montes oxygen saturation, oximetry 96 % Virgie Montes respiratory rate E&M 16 /min Cheyanne Montes pulse rate 80 /min Virgie escalante weight E&M 269 [lb_av] Virgie Rocio escalante height E&M 72 [in_i] Virgie escalante blood pressure, diastolic 71 mm[Hg] Sa ra Lion blood pressure, systolic 113 mm[Hg] Corey a Lion respiratory rate E&M 17 /min Alissa Si ms oxygen saturation, oximetry 97 % Alissa Lion pulse rate 60 /min Alissa Lion blood pressure, cuff size regular Sa ra Lion weight E&M 258 [lb_av] Alissa Lion height E&M 72 [in_i] Alissa Lion Body Mass Index (Ratio) 35.12 kg/m2 Kena Caruso blood pressure, diastolic 81 mm[Hg] Ke rri Gruenenfelder blood pressure, systolic 126 mm[Hg] Ker ri Gruenenfelder blood pressure, cuff size large Ke rri Gruenenfelder oxygen saturation, oximetry 98 % Mary Ellen Martinezeldhalina respiratory rate E&M 16 /min Mary Ellen sancheseldhalina pulse rate 63 /min Mary Ellen Gruenenfe lder weight E&M 259 [lb_av] Mary Ellen Gruenenfe lder height E&M 72 [in_i] Mary Ellen Gruenenfe lder Body Mass Index (Ratio) 36.75 kg/m2 Ping Teresa MD blood pressure, diastolic -1 mm[Hg] Nataliia nkLogic blood pressure, systolic 134 mm[Hg] Bhavya kLogic blood pressure, diastolic 86 mm[Hg] Sa ra Lion blood pressure, systolic 134 mm[Hg] Corey a Lion respiratory rate E&M 16 /min Alissa Si ms oxygen saturation, oximetry 98 % Alissa Lion pulse rate 66 /min Alissa Lion blood pressure, cuff size regular Sa ra Lion weight E&M 271 [lb_av] Alissa Lion height E&M 72 [in_i] Alissa Lion Body Mass Index (Ratio) 36.89 kg/m2 Ping Teresa MD blood pressure, diastolic 74 mm[Hg] Li nkLogic blood pressure, systolic 107 mm[Hg] Bhavya kLognoa blood pressure, diastolic 74 mm[Hg] Rh onlouise Castelan blood pressure, systolic 107 mm[Hg] Rho ndrebecca Castelan oxygen saturation, oximetry 98 % Phyllis Castelan pulse rate 56 /min Phyllis Castelan blood pressure, cuff size regular Rh jim Castelan respiratory rate E&M 18 /min Phyllis Castelan blood pressure, resting No Asa Salinas weight E&M 272 [lb_av] Phyllis Castelan height E&M 72 [in_i] Phyllis Castelan Body Mass Index (Ratio) 39.73 kg/m2 Ping Teresa MD blood pressure, cuff size regular Kr isty Harrison blood pressure, diastolic 80 mm[Hg] Kr isty Berkeley blood pressure, systolic 110 mm[Hg] Kri sty Harrison blood pressure, resting No Tyler Terry weight E&M 293 [lb_av] Corrie Harrison respiratory rate E&M 18 /min Corrie Berkeley pulse rate 81 /min Corrie Berkeley oxygen saturation, oximetry 95 % Corrie Berkeley height E&M 72 [in_i] Corrie Harrison Body Mass Index (Ratio) 41.63 kg/m2 Ping Teresa MD blood pressure, diastolic 69 mm[Hg] Ch astity Audrey blood pressure, systolic 127 mm[Hg] Meg stity Audrey oxygen saturation, oximetry 96 % Chastity Audrey pulse rate 80 /min Chastity Audrey respiratory rate E&M 16 /min Chastit y Audrey weight E&M 307 [lb_av] Chastity Audrey height E&M 72 [in_i] Chastity Audrey Body Mass Index (Ratio) 43.94 kg/m2 José swensonnikolay Giovanna blood pressure, cuff size regular Kr isty Harrison blood pressure, diastolic 90 mm[Hg] Kr isty Berkeley blood pressure, systolic 120 mm[Hg] Kri sty Berkeley oxygen saturation, oximetry 96 % Corrie Harrison pulse rate 84 /min Corrie Harrison respiratory rate E&M 19 /min Corrie Harrison weight E&M 324 [lb_av] Corrie Berkeley height E&M 72 [in_i] Corrie Berkeley Body Mass Index (Ratio) 40.55 kg/m2 Ping Teresa MD respiratory rate E&M 16 /min Tonsha Brooks blood pressure, resting Yes Tons davila Brooks blood pressure, diastolic 75 mm[Hg] To nsha Brooks blood pressure, systolic 108 mm[Hg] Ton sha Brooks pulse rate 57 /min Tonsha Brooks oxygen saturation, oximetry 98 % Tonsha Brooks weight E&M 299 [lb_av] Tonsha Brooks height E&M 72 [in_i] Tonsha Brooks Body Mass Index (Ratio) 38.65 kg/m2 Ping Teresa MD blood pressure, diastolic 60 mm[Hg] Er ica Ora blood pressure, systolic 110 mm[Hg] Gladys ca MaiteNestor blood pressure, resting No Keshawn Payan oxygen saturation, oximetry 97 % Meredith Payan pulse rate 60 /min Meredith Baez weight E&M 285 [lb_av] Meredith Baez height E&M 72 [in_i] Meredith Baez Body Mass Index (Ratio) 37.78 kg/m2 José swensonnikolay Giovanna blood pressure, diastolic 60 mm[Hg] Gavin Phillips blood pressure, systolic 94 mm[Hg] Thelma Fernandez Phillips oxygen saturation, oximetry 97 % RockMirlande Ruiboenson respiratory rate E&M 20 /min AshaDenise Rubioenson pulse rate 78 /min Rock Ralph amaurykika weight E&M 278.6 [lb_av] Rock Rubio on height E&M 72 [in_i] Rock Rosas amaurykika ALLERGIES Allergy Name Onset Date Reaction Criticality Status FARXIGA High Criticality active CELEBREX High Criticality active LYRICA High Criticality active AMOXICILLIN High Criticality active RESULTS Date Observation Value Provider Reference Range Interpretation Location coagulation managed by Rashard Escalona RN international normalized ratio (INR) 2.0 Rashard Escalona RN Normal prothrombin time (patient) 23.8 s Rashard Escalona RN coagulation managed by Rashard Escalona RN international normalized ratio (INR) 2.9 Rashard Escalona RN Normal prothrombin time (patient) 34.7 s Rashard Escalona RN coagulation managed by Rashard Escalona RN international normalized ratio (INR) 3.0 Rashard Escalona RN Normal prothrombin time (patient) 35.8 s Rashard Escalona RN international normalized ratio (INR) 3.8 Alen Munguia RN Normal coagulation managed by Rashard Escalona RN international normalized ratio (INR) 5.1 Rashard Escalona RN Normal prothrombin time (patient) 61.7 s Rashard Escalona RN coagulation managed by Rashard Escalona RN Rashard Sharps RN international normalized ratio (INR) 3.2 Rashard Escalona RN Normal prothrombin time (patient) 37.9 s Rashard Escalona RN coagulation managed by Rashard Escalona RN international normalized ratio (INR) 5.3 Rashard Escalona RN Normal prothrombin time (patient) 63.3 s Rashard Escalona RN coagulation managed by Elizabeth Mueller RN international normalized ratio (INR) 2.4 Elizabeth Mueller RN Normal prothrombin time (patient) 28.4 s Elizabeth Mueller RN coagulation managed by Rashard Escalona RN international normalized ratio (INR) 2.5 Rashard Escalona RN Normal prothrombin time (patient) 30.4 s Rashard Escalona RN coagulation managed by Rashard Escalona RN international normalized ratio (INR) 2.6 Rashard Escalona RN Normal prothrombin time (patient) 30.6 s Rashard Escalona RN coagulation managed by Rashard Escalona RN international normalized ratio (INR) 2.2 Rashard Escalona RN Normal prothrombin time (patient) 26.9 s Rashard Sharps RN coagulation managed by Rashard Escalona RN international normalized ratio (INR) 4.6 Rashard Escalona RN Normal prothrombin time (patient) 54.6 s Rashard Escalona RN international normalized ratio (INR) 2.9 Elizabeth Mueller RN Normal prothrombin time (patient) 34.6 s Elizabeth Mueller RN coagulation managed by Rashard Escalona RN international normalized ratio (INR) 2.9 Rashard Escalona RN Normal prothrombin time (patient) 34.2 s Rashard Escalona RN coagulation managed by Elizabeth Mueller RN international normalized ratio (INR) 2.3 Elizabeth Mueller RN Normal prothrombin time (patient) 27.2 s Elizabeth Mueller RN HISTORY OF MEDICATION USE Medication Status Instructions Dates Provider Indications Com ments ferrous sulfate 325 mg (65 mg iron) tablet,delayed release (DR/EC) active TAKE 1 TABLET BY MOUTH TWICE A DAY Britney Franklin NP cyanocobalamin (vitamin B-12) 1,000 mcg tablet active TAKE 1 TABLET BY MOUTH EVERY DAY IN THE MORNING Birtney Franklin NP pantoprazole 20 mg tablet,delayed release (DR/EC) active daily Britney Franklin NP Lovenox 120 mg/0.8 mL syringe completed Inject 1 syringe subcutaneously twice a day Claudia Pruitt needs to be contacted. Will tell you when start coumadin., check with urologist Dr. Barnard when you can start the blood thinner after procedure 01/24 - Britney Franklin NP carvedilol 3.125 mg tablet active Take 1 tablet by mouth twice a day Britney Franklin NP solifenacin 5 mg tablet active daily Britney Franklin NP sulfasalazine 500 mg tablet completed - Britney Franklin NP mexiletine 200 mg capsule active TAKE 1 CAPSULE BY MOUTH 3 TIMES DAILY 12/04 Martha Puentes atorvastatin 10 mg tablet active Take 1 tablet by mouth once a day Santosh Tidwell NP Farxiga 5 mg tablet completed Take 1 tablet by mouth once daily - 01/24 Jaycee Teresa MD furosemide 20 mg tablet completed 1 tablet by mouth twice a day 07/28 Jaycee Teresa MD furosemide 20 mg tablet completed TAKE 1 TABLET BY MOUTH TWICE A DAY - [facility]ist furosemide 20 mg tablet completed 1 tablet once a day 05/01 - [facility] magnesium oxide 400 mg magnesium tablet completed Take 1 tablet by mouth twice a day - 11/21 Britney Franklin NP aspirin 81 mg tablet,delayed release (DR/EC) completed Take 1 tablet by mouth once a day - 02/25 Jaycee Teresa MD Neurontin 100 mg capsule active THREE TIMES A DAY Britney Franklin NP mexiletine 200 mg capsule completed Take 1 capsule by mouth three times a day - 12/04 Mary Ellen Vazquez carvedilol 3.125 mg tablet completed Take 1 tablet by mouth twice a day 08/01 - 05/01 Santosh Tidwell NP magnesium oxide 400 mg magnesium tablet active Take 1 tablet by mouth twice a day 08/01 Yoni Mosher albuterol sulfate 90 mcg/actuation HFA aerosol inhaler active USE 2 INHALATIONS BY MOUTH TWICE DAILY as needed 04/10 Britney Franklin NP Myrbetriq 25 mg tablet extended release 24 hr completed - Britney Franklin NP ProAir HFA 90 mcg/actuation HFA aerosol inhaler completed 2 puff twice a day - 04/10 Jaycee Teresa MD SEMAGLUTIDE/PACE TAY completed once a week 07/12 - Britney Franklin NP warfarin 5 mg tablet active 02/08 Corrie Terry #90, 90 days supply, Prescribed by BUBBA PRUITT, Filled 05/14/2020 nystatin 100,000 unit/gram cream completed 05/16 - 05/29 Santosh Tidwell NP #30, 30 days supply, Prescribed by BUBBA PRUITT, Filled 05/16/2020 TAMSULOSIN HCL 0.4 MG ORAL CAPSULE completed TAKE 1 CAPSULE BY MOUTH EVERY DAY WITH DINNER 05/24 - 12/07 Corrie Terry #30, 30 days supply, Prescribed by FELICIANO LAWRENCE, Filled 05/24/2020 ELIQUIS 5 MG ORAL TABLET completed one tablet twice daily 07/15 - Megstharpreet Audrey furosemide 20 mg tablet completed 1 tablet once a day as needed - 05/01 Santosh Tidwell NP LISINOPRIL 10 MG ORAL TABLET completed ONE TAB. DAILY - 12/07 Corrie Terry SOCIAL HISTORY Date Observation Value Provider drug use no Jaycee fernandez MD alcohol use yes Jaycee fernandez MD smoking, year quit 2018 Jaycee Teresa MD number of years as a smoker 40 a Jaycee Teresa MD smoking history, tot al pack/day 1 Jaycee Teresa MD cigarette use yes Jaycee sawyer MD smoking status Former smoker Jaycee herrera MD smoking, year quit 2018 Britney Laker CABLE SPLICER APPRENTICE drug use no Britney [place] r CABLE SPLICER APPRENTICE alcohol use yes Britney [place] CABLE SPLICER APPRENTICE number of years as a smoker 40 a Britney Laker CABLE SPLICER APPRENTICE smoking history, tot al pack/day 1 Britney Laker CABLE SPLICER APPRENTICE cigarette use yes Britney meade CABLE SPLICER APPRENTICE smoking status Former smoker Britney hardyer CABLE SPLICER APPRENTICE Exercise counseling Yes Britney Franklin CABLE SPLICER APPRENTICE drug use no Jaycee fernandez MD alcohol use yes Jaycee fernandez MD number of years as a smoker 40 a Jaycee Teresa MD smoking history, tot al pack/day 1 Jaycee Teresa MD cigarette use yes Jaycee sawyer MD smoking status Former smoker Jaycee herrera MD drug use no Jaycee fernandez MD alcohol use yes Jaycee fernandez MD number of years as a smoker 40 a Jaycee Teresa MD smoking history, tot al pack/day 1 Jaycee Teresa MD cigarette use yes Jaycee sawyer MD smoking status Former smoker Jaycee herrera MD drug use no [facility] alcohol use yes [facility] number of years as a smoker 40 a [facility] smoking history, tot al pack/day 1 [facility] cigarette use yes [facility] smoking status Former smoker [facility] drug use no [facility] alcohol use yes [facility] number of years as a smoker 40 a [facility] smoking history, tot al pack/day 1 [facility] cigarette use yes [facility] smoking status Former smoker [facility] social history reviewed E&M revi ewed - no changes required Santosh Tidwell CABLE SPLICER APPRENTICE social history E&M S moking History: Sonia cloud is a former smoker. Lusialuigi Tidwell CABLE SPLICER APPRENTICE drug use no Luisaluigi Tidwell CABLE SPLICER APPRENTICE alcohol use yes Santosh Tidwell CABLE SPLICER APPRENTICE smoking status Former smoker Santosh Wallacere ri CABLE SPLICER APPRENTICE social history reviewed E&M revi ewed - no changes required Luisaluigi Millsri CABLE SPLICER APPRENTICE social history E&M S moking History: Sonia cloud is a former smoker. Santosh Wallacereri CABLE SPLICER APPRENTICE drug use no Verluigi Wallacereri CABLE SPLICER APPRENTICE alcohol use yes Santosh Generi CABLE SPLICER APPRENTICE number of years as a smoker 40 a Courtney Toscano smoking history, tot al pack/day 1 Courtney Toscano cigarette use yes Courtneykei Toscano smoking status Former smoker Courtney Toscano social history reviewed E&M revi ewed - no changes required Santosh Tidwell CABLE SPLICER APPRENTICE social history E&M S moking History: Sonia cloud is a former smoker. Santosh Tidwell CABLE SPLICER APPRENTICE drug use no Santosh Tidwell CABLE SPLICER APPRENTICE alcohol use yes Santosh Tidwell CABLE SPLICER APPRENTICE smoking status Former smoker Santosh Mills ri CABLE SPLICER APPRENTICE social history E&M S moking History: Sonia cloud is a former smoker. Jaycee Teresa MD social history reviewed E&M revi ewed - no changes required Jaycee Teresa MD number of years as a smoker 40 a Yenifer Mueller smoking history, tot al pack/day 1 Yenifer Mueller cigarette use yes Yenifer Mueller smoking status Former smoker Yenifer Bryan casillas number of years as a smoker 40 a Yvonne Phan smoking history, tot al pack/day 1 Yvonne Phan cigarette use yes Yvonne Wade [place] smoking status Former smoker Yvonne Mike marques number of years as a smoker 40 a Gillian Brooks smoking history, tot al pack/day 1 Gillian Brooks cigarette use yes Gillian Brooks smoking status Former smoker Gillianjanet casillas social history reviewed E&M revi ewed - no changes required Gillian Brooks social history E&M Smoking Histo ry: Sonia cloud is a former smoker. Gillian Brooks social history E&M S moking History: Sonia cloud is a former smoker. Yoni Mosher social history reviewed E&M revi ewed - no changes required Yoni Mosher number of years as a smoker 40 a Yvonne Phan smoking history, tot al pack/day 1 Yvonne Phan cigarette use yes Yvonne [place] smoking status Former smoker Yvonne marques social history E&M S moking History: Sonia cloud is a former smoker. Yoni Harerigobetzy social history reviewed E&M revi ewed - no changes required Yoni Neyzalamar number of years as a smoker 40 a Mary Ellen Wanger smoking history, tot al pack/day 1 Mary Ellen Wanger cigarette use yes Mary Ellen Martinez elder smoking status Former smoker Mary Ellen Jauregui nfelder social history reviewed E&M revi ewed - no changes required Yoni Mosher social history reviewed E&M revi ewed - no changes required Naty Caruso social history E&M S moking History: Sonia cloud is a former smoker. Naty Caruso number of years as a smoker 40 a Mary Ellen Vazquez smoking history, tot al pack/day 1 Mary Ellen Wanger cigarette use yes Mary Ellen lunsford smoking status Former smoker Mary Ellen Jauregui nfelder social history reviewed E&M revi ewed - no changes required Jaycee Teresa MD social history E&M S moking History: Sonia cloud is a former smoker. Jaycee Teresa MD social history reviewed E&M revi ewed - no changes required Jaycee Teresa MD smoking status Former smoker Phyllis Annelise social history E&M S moking History: Sonia cloud currently smokes every day. Sonia clodu has been counseled to quit. Jaycee Teresa MD social history reviewed E&M revi ewed - no changes required Jaycee Teresa MD smoking/tobacco cess ation, patient education and counseling yes Corrie Terry number of years as a smoker 40 a Corrie Terry smoking history, tot al pack/day 1 Corrie Terry cigarette use yes Corrie Terry smoking status Current every day smoker Pacheco Terry smoking/tobacco cess ation, patient education and counseling yes Jaycee Teresa MD smoking status Current every day smoker S eloy Teresa MD social history E&M S moking History: P atient currently smokes every day. P atient has been counseled to quit. Jaycee Teresa MD social history reviewed E&M revi ewed - no changes required Jaycee Teresa MD number of years as a smoker 40 a Ifrah Ventura smoking history, tot al pack/day [facility] E&M S moking History: P atient currently smokes every day. P atient has been counseled to quit. Jaycee Teresa MD social history reviewed E&M revi ewed - no changes required Jaycee Teresa MD smoking/tobacco cess ation, patient education and counseling yes Jaycee Teresa MD number of years as a smoker 40 a Jaycee Teresa MD smoking history, tot al pack/day 1 Jaycee Teresa MD cigarette use yes Jaycee sawyer MD smoking status Current every day smoker S eloy Teresa MD social history E&M S moking History: P atient currently smokes every day. P atient has been counseled to quit. Jaycee Teresa MD social history reviewed E&M revi ewed - no changes required Jaycee Teresa MD smoking/tobacco cess ation, patient education and counseling yes Jaycee Teresa MD number of years as a smoker 40 a Stephen Brooks smoking history, tot al pack/day 1 Tonsha Brooks cigarette use yes Tonsha Brooks smoking status Current every day smoker T anyi Brooks social history E&M S moking History: P pedro luis currently smokes every day. Jaycee Teresa MD number of years as a smoker 40 a Meredith Payan smoking history, tot al pack/day 1 Meredith Payan cigarette use yes Meredith Miguel smoking status Current every day smoker E alcides Ora social history reviewed E&M revi ewed - no changes required Meredith Payan social history reviewed E&M revi ewed - no changes required Jaycee Teresa MD number of grandchildren Jaycee Teresa MD social history E&M S moking History: [place] currently smokes every day. Jaycee Teresa MD social history reviewed E&M revi ewed - no changes required Jaycee Teresa MD number of years as a smoker 40 a Rock Phillips smoking history, tot al pack/day 1 Rock Phillips cigarette use yes Rock gutierrez smoking status Current every day smoker M Kuldip Phillips INSURANCE PROVIDERS Payer name Policy type / Coverage type [place] party ID [employer] MEDICARE ADVANTAGE [address] 0 [address] (HMO POS) Medicare [id number] ADVANCE DIRECTIVES Name Date DISCUSSED - NO DECISION MADE TREATMENT PLAN Date Name Performer [id number],C, S till has BLE edema. W ILL NOT BE ABLE TO ADVANCE FURTHER DIURETCS WITHOUT HAVING RENAL INVOLVEMENT MAY WANT TO GET CONSULT BEFORE INCREASING LASIX. M ay take Lasix 20 mg once daily August 28, 2023 C ontinues on Lasix 20 mg. 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 Normal left ventricular systolic function. Normal left ventricular size. Normal left ventricular wall thickness. There is E to A w ave reversal consistent with impaired LV relaxation. Abnormal E/E`, suggestive of elevated LVEDP. 16.0 Left ventricular e jection fraction is measured at 60 %. 2 . Normal right ventricular size. Normal right ventricular systolic function. 3 . Tri-leaflet aortic valve. Aortic valve leaflets appear structurally normal. Velocities, as well as gradients across the aortic v alve are normal. Mild aortic valve regurgitation. The ESTHER is 3.8 cm2. 4 . Pulmonic valve leaflets appear structurally normal. Normal pulmonic valve velocities by Doppler. There is mild pulmonic r egurgitation. 5 . Aortic root is moderately dilated. Sinus of Valsalva is 4.30 cm Ascending Aorta is 4.60 cm. Santosh Tidwell AGNIESZKA [id number],C, P pedro luis continues on Coumadin. Previously had a PE while on Eliquis and was switched to Coumadin. Santosh Tidwell AGNIESZKA [id number],C, S B on EKG todar rate 53. Patient is asymptomatic H is updated medication list for this problem includes: Aspirin 81 Mg Tablet,delayed Release (dr/ec) (Aspirin) ..... Take 1 tablet by mouth once a day Mexiletine 200 Mg Capsule (Mexiletine) ..... 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 BP today: 137/82 P rior BP: 127/75 (05/29/2023) His updated medication list for this problem includes: Furosemide 20 Mg Tablet (Furosemide) ..... 1 tablet once a day Aspirin 81 Mg Tablet,delayed Release (dr/ec) (Aspirin) ..... Take 1 tablet by mouth once a day Santosh Tidwell NP [id number],C, S till has BLE edema. W ILL NOT BE ABLE TO ADVANCE FURTHER DIURETCS WITHOUT HAVING RENAL INVOLVEMENT MAY WANT TO GET CONSULT BEFORE INCREASING LASIX. M ay take Lasix 20 mg once daily Santosh Tidwell NP [id number],C, P atient continues on Coumadin. Reports easy bruising with no other bleding concerns. Previously had a PE while on Eliquis and was switched to Coumadin. Santosh Tidwell NP [id number],C,E CHO 02/06/22 C ONCLUSIONS: 1 . Normal left ventricular systolic function. Normal left ventricular size. Normal left ventricular wall thickness. There is E to A w ave reversal consistent with impaired LV relaxation. Abnormal E/E`, suggestive of elevated LVEDP. 16.0 Left ventricular e jection fraction is measured at 60 %. 2 . Normal right ventricular size. Normal right ventricular systolic function. 3 . Tri-leaflet aortic valve. Aortic valve leaflets appear structurally normal. Velocities, as well as gradients across the aortic v alve are normal. Mild aortic valve regurgitation. The ESTHER is 3.8 cm2. 4 . Pulmonic valve leaflets appear structurally normal. Normal pulmonic valve velocities by Doppler. There is mild pulmonic r egurgitation. 5 . Aortic root is moderately dilated. Sinus of Valsalva is 4.30 cm Ascending Aorta is 4.60 cm. Santosh Tidwell NP [id number],C, B P today: 127/75 P rior BP: 110/62 (05/01/2023) His updated medication list for this problem includes: Furosemide 20 Mg Tablet (Furosemide) ..... 1 tablet twice a day Aspirin 81 Mg Tablet,delayed Release (dr/ec) (Aspirin) ..... Take 1 tablet by mouth once a day Santosh Tidwell NP [id number],C, S R on EKG today His updated medication list for this problem includes: Aspirin 81 Mg Tablet,delayed Release (dr/ec) (Aspirin) ..... Take 1 tablet by mouth once a day Mexiletine 200 Mg Capsule (Mexiletine) ..... Take 1 capsule by mouth three times a day Warfarin 5 Mg Tablet (Warfarin) Santosh Tidwell [id number],C,W orsened LLE edema since stopping Lasix about 3 months ago. R ESTART LASIX AT 20MG BID [facility] [id number],C,Patient darcy is [facility] [id number],C, T he following medications were removed from the medication list: Carvedilol 3.125 Mg Tablet (Carvedilol) ..... Take 1 tablet by mouth twice a day His updated medication list for this problem includes: Aspirin 81 Mg Tablet,delayed Release (dr/ec) (Aspirin) ..... Take 1 tablet by mouth once a day Mexiletine 200 Mg Capsule (Mexiletine) ..... Take 1 capsule by mouth three times a day Warfarin 5 Mg Tablet (Warfarin) [facility] [id number],C,P atient continues on Coumadin. Reports easy bruising with no other bleding concerns. Previously had a PE while on Eliquis and was switched to Coumadin. Would recommend IVC filter should he have another PE while on Coumadin [facility] [id number],C,s ymptoms at baseline T he following medications were removed from the medication list: Carvedilol 3.125 Mg Tablet (Carvedilol) ..... Take 1 tablet by mouth twice a day Furosemide 20 Mg Tablet (Furosemide) ..... 1 tablet once a day as needed His updated medication list for this problem includes: Furosemide 20 Mg Tablet (Furosemide) ..... 1 tablet twice a day Aspirin 81 Mg Tablet,delayed Release (dr/ec) (Aspirin) ..... Take 1 tablet by mouth once a day [facility] [id number],C,P atient denies any current symptoms. P ROBABLY RELATED TO THE COREG [facility] [id number],C,E CHO 02/06/22 C ONCLUSIONS: 1 . Normal left ventricular systolic function. Normal left ventricular size. Normal left ventricular wall thickness. There is E to A w ave reversal consistent with impaired LV relaxation. Abnormal E/E`, suggestive of elevated LVEDP. 16.0 Left ventricular e jection fraction is measured at 60 %. 2 . Normal right ventricular size. Normal right ventricular systolic function. 3 . Tri-leaflet aortic valve. Aortic valve leaflets appear structurally normal. Velocities, as well as gradients across the aortic v alve are normal. Mild aortic valve regurgitation. The ESTHER is 3.8 cm2. 4 . Pulmonic valve leaflets appear structurally normal. Normal pulmonic valve velocities by Doppler. There is mild pulmonic r egurgitation. 5 . Aortic root is moderately dilated. Sinus of Valsalva is 4.30 cm Ascending Aorta is 4.60 cm. Santosh Tidwell AGNIESZKA [id number],C,B P at home in the 120s/70s. T he following medications were removed from the medication list: Carvedilol 3.125 Mg Tablet (Carvedilol) ..... Take 1 tablet by mouth twice a day Furosemide 20 Mg Tablet (Furosemide) ..... 1 tablet once a day as needed His updated medication list for this problem includes: Furosemide 20 Mg Tablet (Furosemide) ..... 1 tablet twice a day Aspirin 81 Mg Tablet,delayed Release (dr/ec) (Aspirin) ..... Take 1 tablet by mouth once a day Santosh Tidwell AGNIESZKA [id number],C,S B on EKG today WILL D/C THE COREG SINCE HE IS IN THE 50'S AND MAY NEED TO INCREASE HR TO GET CO/CI INCREASED TO GET FLUID REMOVED FROM BODY T he following medications were removed from the medication list: Carvedilol 3.125 Mg Tablet (Carvedilol) ..... Take 1 tablet by mouth twice a day His updated medication list for this problem includes: Aspirin 81 Mg Tablet,delayed Release (dr/ec) (Aspirin) ..... Take 1 tablet by mouth once a day Mexiletine 200 Mg Capsule (Mexiletine) ..... 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 Has been switched to coumadin. INR followed by PCP. Last LVEF was 55% with mild AR, mild WA. Was seen by urologist, no new issues with Prostate CA. 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 IF HE HAS ANOTHER PE ON COUMADIN I WOULD RECOMMEND FIRMLY FOR IVC FILTER. INR per Dr Pruitt January 29, 2023 R EMAINS ON COUMADIN DUE TO THE FACT HE HAD PE ON ELIQUIS Jaycee Teresa MD [id number],C, 4 .24 cm noted on echo will repeat echo for further reevaluation ECHO 02/06/22 C ONCLUSIONS: 1 . Normal left ventricular systolic function. Normal left ventricular size. Normal left ventricular wall thickness. There is E to A w ave reversal consistent with impaired LV relaxation. Abnormal E/E`, suggestive of elevated LVEDP. 16.0 Left ventricular e jection fraction is measured at 60 %. 2 . Normal right ventricular size. Normal right ventricular systolic function. 3 . Tri-leaflet aortic valve. Aortic valve leaflets appear structurally normal. Velocities, as well as gradients across the aortic v alve are normal. Mild aortic valve regurgitation. The ESTHER is 3.8 cm2. 4 . Pulmonic valve leaflets appear structurally normal. Normal pulmonic valve velocities by Doppler. There is mild pulmonic r egurgitation. 5 . Aortic root is moderately dilated. Sinus of Valsalva is 4.30 cm Ascending Aorta is 4.60 cm. Jaycee Teresa MD [id number],C,w ill hold lasix and seehow he does H is updated medication list for this problem includes: Aspirin 81 Mg Tablet,delayed Release (/ec) (Aspirin) ..... Take 1 tablet by mouth once a day Carvedilol 3.125 Mg Tablet (Carvedilol) ..... Take 1 tablet by mouth twice a day Furosemide 20 Mg Tablet (Furosemide) ..... 1 tablet once a day as needed Jaycee Teresa MD [id number],C, r eains on mexitil H is updated medication list for this problem includes: Aspirin 81 Mg Tablet,delayed Release (/ec) (Aspirin) ..... Take 1 tablet by mouth once a day Mexiletine 200 Mg Capsule (Mexiletine) ..... Take 1 capsule by mouth three times a day Carvedilol 3.125 Mg Tablet (Carvedilol) ..... Take 1 tablet by mouth twice a day Warfarin 5 Mg Tablet (Warfarin) Jaycee Teresa MD [id number],S, p t turned in 24hr monitor 11/20/22. Sinus Rhythm with rare Ventricular ectopics and rare Supraventricular ectopics. The a verage heart rate was 68bpm with a maximum ratae of 133bpm and a minimum r ate of 51bpm. VE?s were documented as a couplet and isolated beats. SVE?s were d ocumented as a couplet and isolated beats Total VE Beats: 603 (<1%) Jaycee Teresa MD [id number],C, A t baseline. Britney Franklin NP [id number],C, O n coumadin, will check doppler at next follow up . September 17, 2022 C ONCLUSIONS: 1 . Chronic DVT of the right lower extremity in the veins listed above. 2 . Chronic DVT of the left lower extremity in the veins listed above. E lectronically signed by Jaycee Teresa MD on 09/01/2022 at 3:50 PM Britney Franklin NP [id number],C, P E on Eliquis. Has been switched to coumadin. INR followed by PCP. Last LVEF was 55% with mild AR, mild WA. Was seen by urologist, no new issues with Prostate CA. 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 IF HE HAS ANOTHER PE ON COUMADIN I WOULD RECOMMEND FIRMLY FOR IVC FILTER. INR per Dr Elba Franklin NP [id number],C, 4 .24 cm noted on echo will repeat echo for further reevaluation ECHO 02/06/22 C ONCLUSIONS: 1 . Normal left ventricular systolic function. Normal left ventricular size. Normal left ventricular wall thickness. There is E to A w ave reversal consistent with impaired LV relaxation. Abnormal E/E`, suggestive of elevated LVEDP. 16.0 Left ventricular e jection fraction is measured at 60 %. 2 . Normal right ventricular size. Normal right ventricular systolic function. 3 . Tri-leaflet aortic valve. Aortic valve leaflets appear structurally normal. Velocities, as well as gradients across the aortic v alve are normal. Mild aortic valve regurgitation. The ESTHER is 3.8 cm2. 4 . Pulmonic valve leaflets appear structurally normal. Normal pulmonic valve velocities by Doppler. There is mild pulmonic r egurgitation. 5 . Aortic root is moderately dilated. Sinus of Valsalva is 4.30 cm Ascending Aorta is 4.60 cm. Britney Franklin NP [id number],C, B P today: 116/80 P rior BP: 138/85 (09/17/2022) His updated medication list for this problem includes: Aspirin 81 Mg Tablet,delayed Release (dr/ec) (Aspirin) ..... Take 1 tablet by mouth once a day Carvedilol 3.125 Mg Tablet (Carvedilol) ..... Take 1 tablet by mouth twice a day Furosemide 20 Mg Tablet (Furosemide) ..... 1 tablet once a day as needed Britney Franklin NP [id number],C,see #1 emy murray 24hr tele results. Britney Franklin NP [id number],C,see #1 Koki Franklin [id number],C,p t turned in 24hr monitor 11/20/22. results pending. 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 Mean oxygen saturation of 9 4%, with the lowest being 83%. Jaycee Teresa MD [id number],C, P E on Eliquis. Has been switched to coumadin. INR followed by PCP. Last LVEF was 55% with mild AR, mild WA. Was seen by urologist, no new issues with Prostate CA. 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 IF HE HAS ANOTHER PE ON COUMADIN I WOULD RECOMMEND FIRMLY FOR IVC FILTER. June 07, [address] Pruitt September 17, [address] Elba Teresa MD [id number],C, 4 .24 cm noted on echo will repeat echo for further reevaluation ECHO 02/06/22 C ONCLUSIONS: 1 . Normal left ventricular systolic function. Normal left ventricular size. Normal left ventricular wall thickness. There is E to A w ave reversal consistent with impaired LV relaxation. Abnormal E/E`, suggestive of elevated LVEDP. 16.0 Left ventricular e jection fraction is measured at 60 %. 2 . Normal right ventricular size. Normal right ventricular systolic function. 3 . Tri-leaflet aortic valve. Aortic valve leaflets appear structurally normal. Velocities, as well as gradients across the aortic v alve are normal. Mild aortic valve regurgitation. The ESTHER is 3.8 cm2. 4 . Pulmonic valve leaflets appear structurally normal. Normal pulmonic valve velocities by Doppler. There is mild pulmonic r egurgitation. 5 . Aortic root is moderately dilated. Sinus of Valsalva is 4.30 cm Ascending Aorta is 4.60 cm. Jaycee Teresa MD [id number],C, O n coumadin, will check doppler at next follow up . September 17, 2022 C ONCLUSIONS: 1 . Chronic DVT of the right lower extremity in the veins listed above. 2 . Chronic DVT of the left lower extremity in the veins listed above. E lectronically signed by Jaycee Teresa MD on 09/01/2022 at 3:50 PM Jaycee Teresa MD [id number],C,S ummary and Interpretation 1 . Reduced exercise capacity 2 . Normal pressure rate product 3 . No ST segment changes with posexercise, equivocal for ischemia, frequent PVCs. 4 . No chest pain provoked by treadmill exercise 5 . No significant arrhythmias 6 . Patient had modification of modified RENEE protocol due to inability to keep up with treadmill. Jaycee Teresa MD [id number],C, Yoni Chow lamar [id number],B,n o chest pain H is updated medication list for this problem includes: Carvedilol 3.125 Mg Tablet (Carvedilol) ..... Take 1 tablet by mouth twice a day Warfarin 5 Mg Tablet (Warfarin) [facility] [id number],S, B P today: 125/85 P rior BP: 124/62 (08/01/2022) Yoni Chowlamar [id number],S, Yoni Chow lamar [id number],C, B P today: 125/85 P rior BP: 124/62 (08/01/2022) Yoni Chow [id number],C, H is updated medication list for this problem includes: Orders: 9 9213 LTD 20-29min (CPT-34583) Yoni Chow [id number],C, H is updated medication list for this problem includes: Mexiletine 200 Mg Capsule (Mexiletine) ..... Take 1 capsule by mouth three times a day Carvedilol 3.125 Mg Tablet (Carvedilol) ..... Take 1 tablet by mouth twice a day Warfarin 5 Mg Tablet (Warfarin) Lisinopril 10 Mg Oral Tablet (Lisinopril) ..... One tab. daily O rders: 9 9213 LTD 20-29min (CPT-23250) Yoni Chow [id number],C,S /p PVC ablation, no VT was inducbale thus he is not a candidate for defibrilator. I N FUTURE IF EPICARDIAL ABLATION NEEDED WILL REFER TO [facility] O rders: E KG (CPT-88813) S tress Routine (CPT-28428) 9 9215 HIGH 40-54min (CPT-82259) Yoni Chowlamar [id number],C, S /p PVC ablation, no VT was inducbale thus he is not a candidate for defibrilator. He responded poorly to PVC ablation, the PVCs seem to be from an epicardial origin. I discussed starting Carvedilol and Magnesium for medical management for now. I do recommend ILR implant at some point to monitor his heart rates and rhythms. If he can tolerate Magnesium I would double his dose in a month. W ill arrange for routine stress to assess for arrythmias induced by exercise in a month as well. I N FUTURE IF EPICARDIAL ABLATION NEEDED WILL REFER TO [facility] & #13; H is updated medication list for this problem includes: Carvedilol 3.125 Mg Tablet (Carvedilol) ..... Take 1 tablet by mouth twice a day Warfarin 5 Mg Tablet (Warfarin) Orders: S tress Routine (CPT-72117) 9 9215 HIGH 40-54min (CPT-83924) Yoni Chowlamar [id number],S,B P is satisfactory. BP today: 124/62 P rior BP: 123/74 (06/20/2022) His updated medication list for this problem includes: Carvedilol 3.125 Mg Tablet (Carvedilol) ..... Take 1 tablet by mouth twice a day Furosemide 20 Mg Tablet (Furosemide) ..... 1 tablet once a day as needed Yoni Neybetzy [id number],W, N o new sxs. Orders: S tress Routine (CPT-22165) 9 9215 HIGH 40-54min (CPT-04837) Yoni Neybetzy [id number],C,S /p successful PVC/VT ablation. Asymptomatic today will check telemetry. Yoni Mosher [id number],C,S /p successful PVC/VT ablation. Asymptomatic today will check telemetry. Yoni Mosher [id number],C, A t baseline. Yoni Mosher [id number],C, O n coumadin, will check doppler at next follow up . Yoni Mosher [id number],C, P E on Eliquis. Has been switched to coumadin. INR followed by PCP. Last LVEF was 55% with mild AR, mild WA. Was seen by urologist, no new issues with Prostate CA. 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 IF HE HAS ANOTHER PE ON COUMADIN I WOULD RECOMMEND FIRMLY FOR IVC FILTER. June 07, [address] Elba Teresa MD [id number],C, C ONCLUSIONS: 1 . Chronic DVT of the right lower extremity in the veins listed above. 2 . Chronic DVT of the left lower extremity in the veins listed above. 3 . Significant venous insufficiency of the right greater saphenous vein, right femoral vein, and right popliteal vein. 4 . Superficial vein thrombosis of the left GSV as well as superficial vericosities near the low calf and ankle. 5 . Compared to previous study on 08/12/2019 there has been a decrease in burden of thrombosis bilaterally. August 31, 2020 Lucrecia drummond on Coumadin followed by Dr. Pruitt Had DVT on Eliquis. Not a NOAC candidate Jaycee Teresa MD [id number],C, 4 .24 cm noted on echo will repeat echo for further reevaluation Jaycee Teresa MD [id number],C,n eeds bening tumor with lump in left side of face a nd sigmoidoscopy next wk CANNOT COME OFF COUMADIN UNTIL HE HAS DVT STUDY DONE TO EVAL RIGHT LEG H E HAD PROCEDURE DONE ON 06/09/22 Jaycee Teresa MD [id number],C, T he average heart rate was 77bpm with a maximum rate of 144bpm and a minimum rate of 50bpm. Had several episodes of VT and PSVT. Continued to have frequent bigeminy PVCs. Will schedule an ablation Ablation site: right ventricle. S ystem used: Carto (3D). C atheter inserted successfully. E nergy type: radio frequency. I rrigation method: open irrigation cool tip. T he ablation procedure was successful. P ost ablation rhythm: sb. T emperature achieved: 33 C. E nergy delivered: 30 ibrahim. Jaycee Teresa MD [id number],C, T he average heart rate was 77bpm with a maximum rate of 144bpm and a minimum rate of 50bpm. Had several episodes of VT and PSVT. Continued to have frequent bigeminy PVCs. Will schedule an ablation A blation site: right ventricle. S ystem used: Carto (3D). C atheter inserted successfully. E nergy type: radio frequency. I rrigation method: open irrigation cool tip. T he ablation procedure was successful. P ost ablation rhythm: sb. T emperature achieved: 33 C. E nergy delivered: 30 ibrahim. Jaycee Teresa MD [id number],C,N o new sxs. Yoni Neybetzy [id number],C, T he average heart rate was 77bpm with a maximum rate of 144bpm and a minimum rate of 50bpm. Had several episodes of VT and PSVT. Continued to have frequent bigeminy PVCs. Will schedule an ablation Yoni lefty [id number],C, M ultifactorial [facility] [id number],C, H is updated medication list for this problem includes: Carvedilol 3.125 Mg Tablet (Carvedilol) ..... 1 tablet twice a day Furosemide 20 Mg Tablet (Furosemide) ..... 1 tablet once a day as needed Yoni Claudinelamar [id number],C,T he average heart rate was 77bpm with a maximum rate of 144bpm and a minimum rate of 50bpm. Had several episodes of VT and PSVT. Continued to have frequent bigeminy PVCs. Will schedule an ablation Naty Caruso [id number],C,T he average heart rate was 77bpm with a maximum rate of 144bpm and a minimum rate of 50bpm. Had several episodes of VT and PSVT. Continued to have frequent bigeminy PVCs. Will schedule an ablation Naty Caruso [id number],C,T he average heart rate was 77bpm with a maximum rate of 144bpm and a minimum rate of 50bpm. Had several episodes of VT and PSVT. Continued to have frequent bigeminy PVCs. Will schedule an ablation Naty Caruso [id number],C,C hecks bps at home ususally in the 100-110 range H is updated medication list for this problem includes: Carvedilol 3.125 Mg Tablet (Carvedilol) ..... 1 tablet twice a day Furosemide 20 Mg Tablet (Furosemide) ..... 1 tablet once a day as needed Jaycee Teresa MD [id number],S,4 .24 cm noted on echo will repeat echo for further reevaluation Jaycee Teresa MD [id number],C, C ONCLUSIONS: 1 . Chronic DVT of the right lower extremity in the veins listed above. 2 . Chronic DVT of the left lower extremity in the veins listed above. 3 . Significant venous insufficiency of the right greater saphenous vein, right femoral vein, and right popliteal vein. 4 . Superficial vein thrombosis of the left GSV as well as superficial vericosities near the low calf and ankle. 5 . Compared to previous study on 08/12/2019 there has been a decrease in burden of thrombosis bilaterally. August 31, 2020 R hoda on Coumadin followed by Dr. Pruitt Had DVT on Eliquis. Not a NOAC candidate Jaycee Teresa MD [id number],C, H ighly unlikely to be CAD since he had prior cath in 2019 without obstructive CAD, if inhaler doesn't resolve will advise for GI eval Jaycee Teresa MD [id number],C,vaccinated x3 Jaycee Teresa MD [id number],C, P E on Eliquis. Has been switched to coumadin. INR followed by PCP. Last LVEF was 55% with mild AR, mild WA. Was seen by urologist, no new issues with Prostate CA. 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 IF HE HAS ANOTHER PE ON COUMADIN I WOULD RECOMMEND FIRMLY FOR IVC FILTER. June 07, [address] Elba Teresa MD [id number],C, m ild melita on home sleep. Not on CPAP Jaycee Teresa MD [id number],C, H SOME COMPONENT TO SOB WELL HIS MELITA AND HX OF PE. Also has valvular disease. Will check echo. Multifactorial, try inhaler Jaycee Teresa MD [id number],C, P E on Eliquis. Has been switched to coumadin. INR followed by PCP. Last LVEF was 55% with mild AR, mild WA. Was seen by urologist, no new issues with Prostate CA. 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 IF HE HAS ANOTHER PE ON COUMADIN I WOULD RECOMMEND FIRMLY FOR IVC FILTER. June 07, [address] Elba Teresa MD [id number],C, C ONCLUSIONS: 1 . Chronic DVT of the right lower extremity in the veins listed above. 2 . Chronic DVT of the left lower extremity in the veins listed above. 3 . Significant venous insufficiency of the right greater saphenous vein, right femoral vein, and right popliteal vein. 4 . Superficial vein thrombosis of the left GSV as well as superficial vericosities near the low calf and ankle. 5 . Compared to previous study on 08/12/2019 there has been a decrease in burden of thrombosis bilaterally. August 31, 2020 R hoda on Coumadin followed by Dr. Pruitt Had DVT on Eliquis. 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 Mean oxygen saturation of 9 4%, with the lowest being 83%. Jaycee Teresa MD Cardiology: s /p radiation developed radiation proctitis Jaycee Teresa MD Cardiology: 2 4hr monitor 11/20/22. Sinus Rhythm with rare Ventricular ectopics and rare Supraventricular ectopics. The a verage heart rate was 68bpm with a maximum ratae of 133bpm and a minimum r ate of 51bpm. VE?s were documented as a couplet and isolated beats. SVE?s were d ocumented as a couplet and isolated beats Total VE Beats: 603 (<1%) 08/12/24 EKG SR No ectopy Jaycee Teresa MD Cardiology: E CHO Tita ONCLUSIONS: 01/21/24 1 . Technically difficult study. Unable to determine segmental wall motion abnormalities. Low Normal left ventricular systolic f unction. Normal left ventricular wall thickness. Moderate enlargement of left ventricular chamber. There is E to A wave r eversal consistent with impaired LV relaxation. E/E': 6.9 Left ventricular ejection fraction is measured at 50 %. 2 . Normal right ventricular size. Normal right ventricular systolic function. 3 . Normal appearing mitral valve leaflets. Mild mitral valve regurgitation. 4 . Aortic valve leaflets appear structurally normal. Velocities, as well as gradients across the aortic valve are normal. M oderate aortic valve regurgitation. Aortic root( 4.37cm unchanged from 02/26/22) 5 . There is mild pulmonic regurgitation. Jaycee Teresa MD Cardiology: T his visit has been a part of the consistent, comprehensive, and ongoing management of the chronic medical condition(s) listed above for the patient. Patient continues on Coumadin. Previously had a PE while on Eliquis and was switched to Coumadin. T his visit has been a part of the consistent, comprehensive, and ongoing management of the chronic medical condition(s) listed above for the patient. Jaycee Teresa MD Cardiology: On Coumadin due to hx of DVT, PE, Afib, with no new bleeding issues and gets transfusion at infusion site in [place]. Dizzines gets better after these infusions. Jaycee Teresa MD Cardiology: T his visit has been a part of the consistent, comprehensive, and ongoing management of the chronic medical condition(s) listed above for the patient. This visit has been a part of the consistent, comprehensive, and ongoing management of the chronic medical condition(s) listed above for the patient. Sonia CINTIAJAMAICA IS INSTRUCTED TO CHECK WITH DR BARNARD WHEN TO TAKE LOVENOX, WILL GIVE 3 DAYS SUPPLY AND THEN CAN RESUME COUMADIN ALLOWING IT TO COME UP WHILE ON LOVENOX. February 26, 2024 U naomieunately stuck taking blood thinners. Has anemia, IVC filter was discussed and may potentially create more problems becuase if it clots, it will clot off entire venous circulation. Need hemotologist to give opinion regarding IVC filter. I do not feel comfortable in committing him to one. May require intermittent PRBC for lifetime June 03, 2024 I sangeeta infusions and blood tranfsuions in [place] 08/12/24 last PRBC x1 08/10/24, last INR 2.5 07/20/24 December 02, 2024 G ets blood transfusion every 2 weeks. Jaycee Teresa MD Cardiology:Upon revi ew of invasive and noninvasive testing and recent exam the patient is an acceptable candidate with elevated MACE due to Afib PE DVT mild CMP for the planned ENDOSCOPIC GI surgical procedure recommend to maintain his blood pressure range of 110 to 140 mmHg and a heart rate of 60-80 B p.m.. It is okay to use IV beta blockers calcium channel blockers nitrates and afterload reducing agents to maintain the aforementioned hemodynamics parameters. Tele monitoring and EKG should be done if the patient has arrhythmia during procedure. He may develop Afib in the ulisses procedural setting. Additionally may require LOVNOIX 1mg/kg sq BID as a bridge to his Cumadin as he had prior hx of DVT and PE. He has been on eliquis before and had clot on eliquis as a result on Cumadin. That way he can hold Cumadin for the preocedure and be protected against DVT PE and Afib. The patient denies episodes of chest pain nausea vomiting diaphoresis shortness of breath or BALL or pounding/palpitations or loss of consciousness or presyncopal events. EKG demonstrated no significant change compared to prior. We reviewed patient's prior invasive and noninvasive testing all questions were answered to their satisfaction. Jaycee Teresa MD Cardiology:05/24/19 c atheterization. I MPRESSION: 1 . Widely patent normal coronary arteries. 2 . Moderate LV systolic dysfunction. 3 . Normal renal arteries bilaterally. 4 . Mildly enlarged ascending aorta. Echo 01/21/24 C ONCLUSIONS: 1 . Technically difficult study. Unable to determine segmental wall motion abnormalities. Low Normal left ventricular systolic function. Normal left ventricular wall thickness. Moderate enlargement of left ventricular chamber. There is E to A wave r eversal consistent with impaired LV relaxation. E/E': 6.9 Left ventricular ejection fraction is measured at 50 %. 2 . Normal right ventricular size. Normal right ventricular systolic function. 3 . Normal appearing mitral valve leaflets. Mild mitral valve regurgitation. 4 . Aortic valve leaflets appear structurally normal. Velocities, as well as gradients across the aortic valve are normal. M oderate aortic valve regurgitation. 5 . There is mild pulmonic regurgitation. C AROTID 01/12/23 C ONCLUSIONS: 1 . Mild plaque with less than 50% stenosis of the internal carotid arteries bilaterally. 2 . Vertebral flow is antegrade bilaterall Jaycee Teresa MD Cardiology: B P today: 125/74 P rior BP: 118/64 (07/28/2024) His updated medication list for this problem includes: Carvedilol 3.125 Mg Tablet (Carvedilol) ..... Take 1 tablet by mouth twice a day Furosemide 20 Mg Tablet (Furosemide) ..... 1 tablet by mouth twice a day Britney Franklin NP Cardiology: S ummary and Interpretation 1 . Reduced exercise capacity 2 . Normal pressure rate product 3 . No ST segment changes with posexercise, equivocal for ischemia, frequent PVCs. 4. No chest pain provoked by treadmill exercise 5 . No significant arrhythmias 6 . Patient had modification of modified RENEE protocol due to inability to keep up with treadmill. Britney Franklin NP Cardiology:ECHO C ONCLUSIONS: 01/21/24 1 . Technically difficult study. Unable to determine segmental wall motion abnormalities. Low Normal left ventricular systolic f unction. Normal left ventricular wall thickness. Moderate enlargement of left ventricular chamber. There is E to A wave r eversal consistent with impaired LV relaxation. E/E': 6.9 Left ventricular ejection fraction is measured at 50 %. 2 . Normal right ventricular size. Normal right ventricular systolic function. 3 . Normal appearing mitral valve leaflets. Mild mitral valve regurgitation. 4 . Aortic valve leaflets appear structurally normal. Velocities, as well as gradients across the aortic valve are normal. M oderate aortic valve regurgitation. Aortic root( 4.37cm unchanged from 02/26/22) 5 . There is mild pulmonic regurgitation. Britney Franklin NP Cardiology: s /p radiation Britney Franklin NP Cardiology: S B on EKG todar rate 53. Patient is asymptomatic 08/12/24 SR 73 T he following medications were removed from the medication list: Lovenox 120 Mg/0.8 Ml Syringe (Enoxaparin) ..... Inject 1 syringe subcutaneously twice a day claudia pruitt needs to be contacted. will tell you when start coumadin., check with urologist dr. barnard when you can start the blood thinner after procedure His updated medication list for this problem includes: Carvedilol 3.125 Mg Tablet (Carvedilol) ..... Take 1 tablet by mouth twice a day Mexiletine 200 Mg Capsule (Mexiletine) ..... Take 1 capsule by mouth 3 times daily Warfarin 5 Mg Tablet (Warfarin) Britney Franklin NP Cardiology: 2 4hr monitor 11/20/22. Sinus Rhythm with rare Ventricular ectopics and rare Supraventricular ectopics. The a verage heart rate was 68bpm with a maximum ratae of 133bpm and a minimum r ate of 51bpm. VE?s were documented as a couplet and isolated beats. SVE?s were d ocumented as a couplet and isolated beats Total VE Beats: 603 (<1%) 08/12/24 EKG SR No ectopy Britney Franklin NP Cardiology: s ymptoms at baseline last ECHO 01/2024 EF 50%, impaired LV relaxation. Britney Franklin NP Cardiology:EKG today SR no ectopy The following medications were removed from the medication list: Lovenox 120 Mg/0.8 Ml Syringe (Enoxaparin) ..... Inject 1 syringe subcutaneously twice a day claudia pruitt needs to be contacted. will tell you when start coumadin., check with urologist dr. barnard when you can start the blood thinner after procedure His updated medication list for this problem includes: Carvedilol 3.125 Mg Tablet (Carvedilol) ..... Take 1 tablet by mouth twice a day Mexiletine 200 Mg Capsule (Mexiletine) ..... Take 1 capsule by mouth 3 times daily Warfarin 5 Mg Tablet (Warfarin) Britney Franklin NP Cardiology: T his visit has been a part of the consistent, comprehensive, and ongoing management of the chronic medical condition(s) listed above for the patient. Patient continues on Coumadin. Previously had a PE while on Eliquis and was switched to Coumadin. T his visit has been a part of the consistent, comprehensive, and ongoing management of the chronic medical condition(s) listed above for the patient. February 26, 2024 I NR was 2.6 today U nfortunately stuck taking blood thinners. Has anemia, IVC filter was discussed and may potentially create more problems becuase if it clots, it will clot off entire venous circulation. Need hemotologist to give opinion regarding IVC filter. I do not feel comfortable in committing him to one. May require intermittent PRBC for lifetime June 03, 2024 I sangeeta infusions and blood tranfsuions in [place] 08/12/24 last PRBC x1 08/10/24, last INR 2.5 07/20/24 Britney Franklin NP Cardiology: T his visit has been a part of the consistent, comprehensive, and ongoing management of the chronic medical condition(s) listed above for the patient. This visit has been a part of the consistent, comprehensive, and ongoing management of the chronic medical condition(s) listed above for the patient. Sonia CLOUD IS INSTRUCTED TO CHECK WITH DR BARNARD WHEN TO TAKE LOVENOX, WILL GIVE 3 DAYS SUPPLY AND THEN CAN RESUME COUMADIN ALLOWING IT TO COME UP WHILE ON LOVENOX. February 26, 2024 U naomieunately stuck taking blood thinners. Has anemia, IVC filter was discussed and may potentially create more problems becuase if it clots, it will clot off entire venous circulation. Need hemotologist to give opinion regarding IVC filter. I do not feel comfortable in committing him to one. May require intermittent PRBC for lifetime June 03, 2024 I sangeeta infusions and blood tranfsuions in [place] 08/12/24 last PRBC x1 08/10/24, last INR 2.5 07/20/24 Britney Franklin CABLE SPLICER APPRENTICE Cardiology:This visi t has been a part of the consistent, comprehensive, and ongoing management of the chronic medical condition(s) listed above for the patient. CONCLUSIONS: 1 . Technically difficult study. Unable to determine segmental wall motion abnormalities. Low Normal left ventricular systolic f unction. Normal left ventricular wall thickness. Moderate enlargement of left ventricular chamber. There is E to A wave r eversal consistent with impaired LV relaxation. E/E': 6.9 Left ventricular ejection fraction is measured at 50 %. 2 . Normal right ventricular size. Normal right ventricular systolic function. 3 . Normal appearing mitral valve leaflets. Mild mitral valve regurgitation. 4 . Aortic valve leaflets appear structurally normal. Velocities, as well as gradients across the aortic valve are normal. M oderate aortic valve regurgitation. 5 . There is mild pulmonic regurgitation. Britney Franklin NP Cardiology:last PRBC x1 08/10 l ast INR 2.5 07/20/24 On Coumadin due to hx of DVT, PE, Afib, with no new bleeding issues and gets transfusion at infusion site in [place]. Dizzines gets better after these infusions. Britney Franklin CABLE SPLICER APPRENTICE Cardiology:This visi t has been a part of the consistent, comprehensive, and ongoing management of the chronic medical condition(s) listed above for the patient. This visit has been a part of the consistent, comprehensive, and ongoing management of the chronic medical condition(s) listed above for the patient. Sonia PEDRO LUIS IS INSTRUCTED TO CHECK WITH DR BARNARD WHEN TO TAKE LOVENOX, WILL GIVE 3 DAYS SUPPLY AND THEN CAN RESUME COUMADIN ALLOWING IT TO COME UP WHILE ON LOVENOX. February 26, 2024 U nfortunately stuck taking blood thinners. Has anemia, IVC filter was discussed and may potentially create more problems becuase if it clots, it will clot off entire venous circulation. Need hemotologist to give opinion regarding IVC filter. I do not feel comfortable in committing him to one. May require intermittent PRBC for lifetime June 03, 2024 I sangeeta infusions and blood tranfsuions in [place] Teresa MD Cardiology:This visi t has been a part of the consistent, comprehensive, and ongoing management of the chronic medical condition(s) listed above for the patient. Patient continues on Coumadin. Previously had a PE while on Eliquis and was switched to Coumadin. T his visit has been a part of the consistent, comprehensive, and ongoing management of the chronic medical condition(s) listed above for the patient. February 26, 2024 I NR was 2.6 today U nfortunately stuck taking blood thinners. Has anemia, IVC filter was discussed and may potentially create more problems becuase if it clots, it will clot off entire venous circulation. Need hemotologist to give opinion regarding IVC filter. I do not feel comfortable in committing him to one. May require intermittent PRBC for lifetime June 03, 2024 I sangeeta infusions and blood tranfsuions in [place] Teresa MD Cardiology:This visi t has been a part of the consistent, comprehensive, and ongoing management of the chronic medical condition(s) listed above for the patient. CONCLUSIONS: 1 . Technically difficult study. Unable to determine segmental wall motion abnormalities. Low Normal left ventricular systolic f unction. Normal left ventricular wall thickness. Moderate enlargement of left ventricular chamber. There is E to A wave r eversal consistent with impaired LV relaxation. E/E': 6.9 Left ventricular ejection fraction is measured at 50 %. 2 . Normal right ventricular size. Normal right ventricular systolic function. 3 . Normal appearing mitral valve leaflets. Mild mitral valve regurgitation. 4 . Aortic valve leaflets appear structurally normal. Velocities, as well as gradients across the aortic valve are normal. M oderate aortic valve regurgitation. 5 . There is mild pulmonic regurgitation. Jaycee Teresa MD Cardiology:This visi t has been a part of the consistent, comprehensive, and ongoing management of the chronic medical condition(s) listed above for the patient. Still has BLE edema. W ILL NOT BE ABLE TO ADVANCE FURTHER DIURETCS WITHOUT HAVING RENAL INVOLVEMENT MAY WANT TO GET CONSULT BEFORE INCREASING LASIX. M ay take Lasix 20 mg once daily August 28, 2023 C ontinues on Lasix 20 mg. Still has BLE edema L EG EDEMA HAS IMPROVED ALSO ON FARXIGA 5MG DAILY (COULD SWITCH TO JARDIANCE THERE IS NO RENAL LIMITAITON WIHT USING THE DRUG) July 28, 2024 The patient is on anticoagulation medication and comes in today for a routine follow up visit. His last INR was 2.6 and today's INR is 2.5. 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 Mean oxygen saturation of 9 4%, with the lowest being 83%. Jaycee Teresa MD Cardiology: C ONCLUSIONS: 01/21/24 1 . Technically difficult study. Unable to determine segmental wall motion abnormalities. Low Normal left ventricular systolic f unction. Normal left ventricular wall thickness. Moderate enlargement of left ventricular chamber. There is E to A wave r eversal consistent with impaired LV relaxation. E/E': 6.9 Left ventricular ejection fraction is measured at 50 %. 2 . Normal right ventricular size. Normal right ventricular systolic function. 3 . Normal appearing mitral valve leaflets. Mild mitral valve regurgitation. 4 . Aortic valve leaflets appear structurally normal. Velocities, as well as gradients across the aortic valve are normal. M oderate aortic valve regurgitation. Aortic root( 4.37cm unchanged from 02/26/22) 5 . There is mild pulmonic regurgitation. Jaycee Teresa MD Cardiology Jaycee Teresa MD Cardiology: Sonia pedro luis continues on Coumadin. Previously had a PE while on Eliquis and was switched to Coumadin. T his visit has been a part of the consistent, comprehensive, and ongoing management of the chronic medical condition(s) listed above for the patient. February 26, 2024 I NR was 2.6 today U nfortunately stuck taking blood thinners. Has anemia, IVC filter was discussed and may potentially create more problems becuase if it clots, it will clot off entire venous circulation. Need hemotologist to give opinion regarding IVC filter. I do not feel comfortable in committing him to one. May require intermittent PRBC for lifetime June 03, 2024 I sangeeta infusions and blood tranfsuions in [place] Jaycee Teresa MD Cardiology:This visi t has been a part of the consistent, comprehensive, and ongoing management of the chronic medical condition(s) listed above for the patient. Sonia PEDRO LUIS IS INSTRUCTED TO CHECK WITH DR BARNARD WHEN TO TAKE LOVENOX, WILL GIVE 3 DAYS SUPPLY AND THEN CAN RESUME COUMADIN ALLOWING IT TO COME UP WHILE ON LOVENOX. February 26, 2024 U nfortunately stuck taking blood thinners. Has anemia, IVC filter was discussed and may potentially create more problems becuase if it clots, it will clot off entire venous circulation. Need hemotologist to give opinion regarding IVC filter. I do not feel comfortable in committing him to one. May require intermittent PRBC for lifetime June 03, 2024 [facility] infusions and blood tranfsuions in [place] Jaycee Teresa MD Cardiology:On Coumad in due to hx of DVT, PE, Afib, with no new bleeding issues and gets transfusion at infusion site in [place]. Dizzines gets better after these infusions. Jaycee Teresa MD Cardiology: C ONCLUSIONS: 1 . Technically difficult study. Unable to determine segmental wall motion abnormalities. Low Normal left ventricular systolic f unction. Normal left ventricular wall thickness. Moderate enlargement of left ventricular chamber. There is E to A wave r eversal consistent with impaired LV relaxation. E/E': 6.9 Left ventricular ejection fraction is measured at 50 %. 2 . Normal right ventricular size. Normal right ventricular systolic function. 3 . Normal appearing mitral valve leaflets. Mild mitral valve regurgitation. 4 . Aortic valve leaflets appear structurally normal. Velocities, as well as gradients across the aortic valve are normal. M oderate aortic valve regurgitation. 5 . There is mild pulmonic regurgitation. 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 Mean oxygen saturation of 9 4%, with the lowest being 83%. Jaycee Teresa MD Cardiology:CONCLUSIO NS: 01/21/24 1 . Technically difficult study. Unable to determine segmental wall motion abnormalities. Low Normal left ventricular systolic f unction. Normal left ventricular wall thickness. Moderate enlargement of left ventricular chamber. There is E to A wave r eversal consistent with impaired LV relaxation. E/E': 6.9 Left ventricular ejection fraction is measured at 50 %. 2 . Normal right ventricular size. Normal right ventricular systolic function. 3 . Normal appearing mitral valve leaflets. Mild mitral valve regurgitation. 4 . Aortic valve leaflets appear structurally normal. Velocities, as well as gradients across the aortic valve are normal. M oderate aortic valve regurgitation. Aortic root( 4.37cm unchanged from 02/26/22) 5 . There is mild pulmonic regurgitation. Jaycee Teresa MD Cardiology Jaycee Teresa MD Cardiology: s ymptoms at baseline Jaycee Teresa MD Cardiology: discusse d today re: IVC filter. INR 2.6 today he had anemia Hb 5. Sent to hosp by Dr. Pruitt &received 3 PRBC and then 1 unit with hem doc & iron Jaycee Teresa MD Cardiology: H is updated medication list for this problem includes: Carvedilol 3.125 Mg Tablet (Carvedilol) Furosemide 20 Mg Tablet (Furosemide) ..... 1 tablet once a day Aspirin 81 Mg Tablet,delayed Release (/ec) (Aspirin) ..... Take 1 tablet by mouth once a day BP today: 112/73 P rior BP: 137/82 (08/28/2023) Jaycee Teresa MD Cardiology: Sonia ATIENT IS INSTRUCTED TO CHECK WITH DR BARNARD WHEN TO TAKE LOVENOX, WILL GIVE 3 DAYS SUPPLY AND THEN CAN RESUME COUMADIN ALLOWING IT TO COME UP WHILE ON LOVENOX. February 26, 2024 U nfortunately stuck taking blood thinners. Has anemia, IVC filter was discussed and may potentially create more problems becuase if it clots, it will clot off entire venous circulation. Need hemotologist to give opinion regarding IVC filter. I do not feel comfortable in committing him to one. May require intermittent PRBC for lifetime Jaycee Teresa MD Cardiology: Sonia cloud continues on Coumadin. Previously had a PE while on Eliquis and was switched to Coumadin. A pril 2023 I NR was 2.6 today U nfortunately stuck taking blood thinners. Has anemia, IVC filter was discussed and may potentially create more problems becuase if it clots, it will clot off entire venous circulation. Need hemotologist to give opinion regarding IVC filter. I do not feel comfortable in committing him to one. May require intermittent PRBC for lifetime Jaycee Teresa MD Cardiology:CONCLUSIO NS: 1 . Technically difficult study. Unable to determine segmental wall motion abnormalities. Low Normal left ventricular systolic f unction. Normal left ventricular wall thickness. Moderate enlargement of left ventricular chamber. There is E to A wave r eversal consistent with impaired LV relaxation. E/E': 6.9 Left ventricular ejection fraction is measured at 50 %. 2. Normal right ventricular size. Normal right ventricular systolic function. 3 . Normal appearing mitral valve leaflets. Mild mitral valve regurgitation. 4 . Aortic valve leaflets appear structurally normal. Velocities, as well as gradients across the aortic valve are normal. M oderate aortic valve regurgitation. 5 . There is mild pulmonic regurgitation. 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 1 tablet once a day Aspirin 81 Mg Tablet,delayed Release (dr/ec) (Aspirin) ..... Take 1 tablet by mouth once a day BP today: 112/73 P rior BP: 137/82 (08/28/2023) Jaycee Teresa MD Cardiology:PATIENT I S INSTRUCTED TO CHECK WITH DR BARNARD WHEN TO TAKE LOVENOX, WILL GIVE 3 DAYS SUPPLY AND THEN CAN RESUME COUMADIN ALLOWING IT TO COME UP WHILE ON LOVENOX. 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 Mean oxygen saturation of 9 4%, with the lowest being 83%. Jaycee Teresa MD Cardiology: Sonia cloud continues on Coumadin. Previously had a PE while on Eliquis and was switched to Coumadin. Jaycee Teresa MD Cardiology:Patient i s to undergo cystoscopy urethral dilation w/ possible hernandez placement, and possible bladder biopsy on 01/26/[address] Lai Tomas at [facility]. Upon review of noninvasive testing and recent exam the patient is an acceptable candidate for the planned surgical procedure recommend to maintain his blood pressure range of 110 to 140 mmHg and a heart rate of 60-80 B p.m.. It is okay to use IV beta blockers calcium channel blockers nitrates and afterload reducing agents to maintain the aforementioned hemodynamics parameters. Tele monitoring and EKG should be done if the patient has arrhythmia during procedure. He had echo done on 01/21/2024 C ONCLUSIONS: 1 . Technically difficult study. Unable to determine segmental wall motion abnormalities. Low Normal left ventricular systolic f unction. Normal left ventricular wall thickness. Moderate enlargement of left ventricular chamber. There is E to A wave r eversal consistent with impaired LV relaxation. E/E': 6.9 Left ventricular ejection fraction is measured at 50 %. 2 . Normal right ventricular size. Normal right ventricular systolic function. 3 . Normal appearing mitral valve leaflets. Mild mitral valve regurgitation. 4 . Aortic valve leaflets appear structurally normal. Velocities, as well as gradients across the aortic valve are normal. M oderate aortic valve regurgitation. 5 . There is mild pulmonic regurgitation. DISCUSSED WITH PCP DR PRUITT, CONTATCTED DR ORTIZ OFFICE,SPOKE WITH SATHISH, SHE WILL DISCUSS WITH DR. BARNARD WHO WILL NOTIFY PATIENT TOMORROW , C VERENICE [phone] PRUITT, WILL SEND RX FOR LOVANOX 120MG, HE WEIGHS 284 LBS, 129 KG. PATIENT IS INSTRUCTED TO CHECK WITH DR BARNARD WHEN TO TAKE LOVENOX, WILL GIVE 3 DAYS SUPPLY AND THEN CAN RESUME COUMADIN ALLOWING IT TO COME UP WHILE ON LOVENOX. Jaycee Teresa MD Cardiology: S sanchez has BLE edema. W ILL NOT BE ABLE TO ADVANCE FURTHER DIURETCS WITHOUT HAVING RENAL INVOLVEMENT MAY WANT TO GET CONSULT BEFORE INCREASING LASIX. M ay take Lasix 20 mg once daily August 28, 2023 C ontinues on Lasix 20 mg. Still has BLE edema L EG EDEMA HAS IMPROVED ALSO ON FARXIGA 5MG DAILY (COULD SWITCH TO JARDIANCE THERE IS NO RENAL LIMITAITON WIHT USING THE DRUG) Santosh Tidwell NP Cardiology: E CHO 02/06/22 C ONCLUSIONS: 1 . Normal left ventricular systolic function. Normal left ventricular size. Normal left ventricular wall thickness. There is E to A w ave reversal consistent with impaired LV relaxation. Abnormal E/E`, suggestive of elevated LVEDP. 16.0 Left ventricular e jection fraction is measured at 60 %. 2 . Normal right ventricular size. Normal right ventricular systolic function. 3 . Tri-leaflet aortic valve. Aortic valve leaflets appear structurally normal. Velocities, as well as gradients across the aortic v alve are normal. Mild aortic valve regurgitation. The ESTHER is 3.8 cm2. 4 . Pulmonic valve leaflets appear structurally normal. Normal pulmonic valve velocities by Doppler. There is mild pulmonic r egurgitation. 5 . Aortic root is moderately dilated. Sinus of Valsalva is 4.30 cm Ascending Aorta is 4.60 cm. Santosh Tidwell NP Cardiology: Sonia cloud continues on Coumadin. Previously had a PE while on Eliquis and was switched to Coumadin. Santosh Tidwell NP Cardiology: S B on EKG todar rate 53. Patient is asymptomatic H is updated medication list for this problem includes: Aspirin 81 Mg Tablet,delayed Release (dr/ec) (Aspirin) ..... Take 1 tablet by mouth once a day Mexiletine 200 Mg Capsule (Mexiletine) ..... Take 1 capsule by mouth three times a day Warfarin 5 Mg Tablet (Warfarin) Santosh Wallacebritney AARON Cardiology:Documente d BP reading is from patient's home BP readings due to white coat hypertension. BP today: 137/82 P rior BP: 127/75 (05/29/2023) His updated medication list for this problem includes: Furosemide 20 Mg Tablet (Furosemide) ..... 1 tablet once a day Aspirin 81 Mg Tablet,delayed Release (dr/ec) (Aspirin) ..... Take 1 tablet by mouth once a day Santosh Tidwell NP Cardiology: S sanchez has BLE edema. W ILL NOT BE ABLE TO ADVANCE FURTHER DIURETCS WITHOUT HAVING RENAL INVOLVEMENT MAY WANT TO GET CONSULT BEFORE INCREASING LASIX. M ay take Lasix 20 mg once daily Santosh Tidwell NP Cardiology: P pedro luis continues on Coumadin. Reports easy bruising with no other bleding concerns. Previously had a PE while on Eliquis and was switched to Coumadin. Santosh Tidwell NP Cardiology:ECHO C ONCLUSIONS: 1 . Normal left ventricular systolic function. Normal left ventricular size. Normal left ventricular wall thickness. There is E to A w ave reversal consistent with impaired LV relaxation. Abnormal E/E`, suggestive of elevated LVEDP. 16.0 Left ventricular e jection fraction is measured at 60 %. 2 . Normal right ventricular size. Normal right ventricular systolic function. 3 . Tri-leaflet aortic valve. Aortic valve leaflets appear structurally normal. Velocities, as well as gradients across the aortic v alve are normal. Mild aortic valve regurgitation. The ESTHER is 3.8 cm2. 4 . Pulmonic valve leaflets appear structurally normal. Normal pulmonic valve velocities by Doppler. There is mild pulmonic r egurgitation. 5 . Aortic root is moderately dilated. Sinus of Valsalva is 4.30 cm Ascending Aorta is 4.60 cm. Santosh Tidwell NP Cardiology: B P today: 127/75 P rior BP: 110/62 (05/01/2023) His updated medication list for this problem includes: Furosemide 20 Mg Tablet (Furosemide) ..... 1 tablet twice a day Aspirin 81 Mg Tablet,delayed Release (dr/ec) (Aspirin) ..... Take 1 tablet by mouth once a day Santosh Wallacebritney AARON Cardiology: S R on EKG today His updated medication list for this problem includes: Aspirin 81 Mg Tablet,delayed Release (dr/ec) (Aspirin) ..... Take 1 tablet by mouth once a day Mexiletine 200 Mg Capsule (Mexiletine) ..... Take 1 capsule by mouth three times a day Warfarin 5 Mg Tablet (Warfarin) Luisaluigi Tidwell NP Cardiology:Worsened LLE edema since stopping Lasix about 3 months ago. R ESTART LASIX AT [facility]ID [facility]:Patient nae on Co umadin [facility] Card[facility]: T he following medications were removed from the medication list: Carvedilol 3.125 Mg Tablet (Carvedilol) ..... Take 1 tablet by mouth twice a day His updated medication list for this problem includes: Aspirin 81 Mg Tablet,delayed Release (dr/ec) (Aspirin) ..... Take 1 tablet by mouth once a day Mexiletine 200 Mg Capsule (Mexiletine) ..... Take 1 capsule by mouth three times a day Warfarin 5 Mg Tablet (Warfarin) [facility] Card[facility]:Patient c ontinues on Coumadin. Reports easy bruising with no other bleding concerns. Previously had a PE while on Eliquis and was switched to Coumadin. Would recommend IVC filter should he have another PE while on Coumadin [facility] Cardiology:symptoms at baseline T he following medications were removed from the medication list: Carvedilol 3.125 Mg Tablet (Carvedilol) ..... Take 1 tablet by mouth twice a day Furosemide 20 Mg Tablet (Furosemide) ..... 1 tablet once a day as needed His updated medication list for this problem includes: Furosemide 20 Mg Tablet (Furosemide) ..... 1 tablet twice a day Aspirin 81 Mg Tablet,delayed Release (dr/ec) (Aspirin) ..... Take 1 tablet by mouth once a day Santosh Tidwell AGNIESZKA Cardiology:Patient d enies any current symptoms. P ROBABLY RELATED TO THE COREG Santosh Tidwell NP Cardiology:ECHO C ONCLUSIONS: 1 . Normal left ventricular systolic function. Normal left ventricular size. Normal left ventricular wall thickness. There is E to A w ave reversal consistent with impaired LV relaxation. Abnormal E/E`, suggestive of elevated LVEDP. 16.0 Left ventricular e jection fraction is measured at 60 %. 2 . Normal right ventricular size. Normal right ventricular systolic function. 3 . Tri-leaflet aortic valve. Aortic valve leaflets appear structurally normal. Velocities, as well as gradients across the aortic v alve are normal. Mild aortic valve regurgitation. The ESTHER is 3.8 cm2. 4 . Pulmonic valve leaflets appear structurally normal. Normal pulmonic valve velocities by Doppler. There is mild pulmonic r egurgitation. 5 . Aortic root is moderately dilated. Sinus of Valsalva is 4.30 cm Ascending Aorta is 4.60 cm. Santosh Tidwell AGNIESZKA Cardiology:BP at mayank e in the 120s/70s. T he following medications were removed from the medication list: Carvedilol 3.125 Mg Tablet (Carvedilol) ..... Take 1 tablet by mouth twice a day Furosemide 20 Mg Tablet (Furosemide) ..... 1 tablet once a day as needed His updated medication list for this problem includes: Furosemide 20 Mg Tablet (Furosemide) ..... 1 tablet twice a day Aspirin 81 Mg Tablet,delayed Release (dr/ec) (Aspirin) ..... Take 1 tablet by mouth once a day Santosh Tidwell AGNIESZKA Cardiology:SB on EKG today WILL D/C THE COREG SINCE HE IS IN THE 50'S AND MAY NEED TO INCREASE HR TO GET CO/CI INCREASED TO GET FLUID REMOVED FROM BODY T he following medications were removed from the medication list: Carvedilol 3.125 Mg Tablet (Carvedilol) ..... Take 1 tablet by mouth twice a day His updated medication list for this problem includes: Aspirin 81 Mg Tablet,delayed Release (dr/ec) (Aspirin) ..... Take 1 tablet by mouth once a day Mexiletine 200 Mg Capsule (Mexiletine) ..... Take 1 capsule by mouth three times a day Warfarin 5 Mg Tablet (Warfarin) Santosh Yaw AARON Cardiology: P E on Eliquis. Has been switched to coumadin. INR followed by PCP. Last LVEF was 55% with mild AR, mild WA. Was seen by urologist, no new issues with Prostate CA. 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 IF HE HAS ANOTHER PE ON COUMADIN I WOULD RECOMMEND FIRMLY FOR IVC FILTER. INR per Dr Pruitt January 29, 2023 R EMAINS ON COUMADIN DUE TO THE FACT HE HAD PE ON ELIQUIS Jaycee Teresa MD Cardiology: 4 .24 cm noted on echo will repeat echo for further reevaluation ECHO 02/06/22 C ONCLUSIONS: 1 . Normal left ventricular systolic function. Normal left ventricular size. Normal left ventricular wall thickness. There is E to A w ave reversal consistent with impaired LV relaxation. Abnormal E/E`, suggestive of elevated LVEDP. 16.0 Left ventricular e jection fraction is measured at 60 %. 2 . Normal right ventricular size. Normal right ventricular systolic function. 3 . Tri-leaflet aortic valve. Aortic valve leaflets appear structurally normal. Velocities, as well as gradients across the aortic v alve are normal. Mild aortic valve regurgitation. The ESTHER is 3.8 cm2. 4 . Pulmonic valve leaflets appear structurally normal. Normal pulmonic valve velocities by Doppler. There is mild pulmonic r egurgitation. 5 . Aortic root is moderately dilated. Sinus of Valsalva is 4.30 cm Ascending Aorta is 4.60 cm. Jaycee Teresa MD Cardiology:will hold lasix and seehow he does H is updated medication list for this problem includes: Aspirin 81 Mg Tablet,delayed Release (dr/ec) (Aspirin) ..... Take 1 tablet by mouth once a day Carvedilol 3.125 Mg Tablet (Carvedilol) ..... Take 1 tablet by mouth twice a day Furosemide 20 Mg Tablet (Furosemide) ..... 1 tablet once a day as needed Jaycee Teresa MD Cardiology: r eains on mexitil H is updated medication list for this problem includes: Aspirin 81 Mg Tablet,delayed Release (/ec) (Aspirin) ..... Take 1 tablet by mouth once a day Mexiletine 200 Mg Capsule (Mexiletine) ..... Take 1 capsule by mouth three times a day Carvedilol 3.125 Mg Tablet (Carvedilol) ..... Take 1 tablet by mouth twice a day Warfarin 5 Mg Tablet (Warfarin) Jaycee Teresa MD Cardiology: p t turned in 24hr monitor 11/20/22. Sinus Rhythm with rare Ventricular ectopics and rare Supraventricular ectopics. The a verage heart rate was 68bpm with a maximum ratae of 133bpm and a minimum r ate of 51bpm. VE?s were documented as a couplet and isolated beats. SVE?s were d ocumented as a couplet and isolated beats Total VE Beats: 603 (<1%) Jaycee Teresa MD Electrophysiology: A t baseline. Britney Franklin NP Electrophysiology: O n coumadin, will check doppler at next follow up . September 17, 2022 C ONCLUSIONS: 1 . Chronic DVT of the right lower extremity in the veins listed above. 2 . Chronic DVT of the left lower extremity in the veins listed above. E lectronically signed by Jaycee Teresa MD on 09/01/2022 at 3:50 PM Britney Franklin NP Electrophysiology: P E on Eliquis. Has been switched to coumadin. INR followed by PCP. Last LVEF was 55% with mild AR, mild WA. Was seen by urologist, no new issues with Prostate CA. 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 IF HE HAS ANOTHER PE ON COUMADIN I WOULD RECOMMEND FIRMLY FOR IVC FILTER. INR per Dr Elba Franklin NP Electrophysiology: 4 .24 cm noted on echo will repeat echo for further reevaluation ECHO 02/06/22 C ONCLUSIONS: 1 . Normal left ventricular systolic function. Normal left ventricular size. Normal left ventricular wall thickness. There is E to A w ave reversal consistent with impaired LV relaxation. Abnormal E/E`, suggestive of elevated LVEDP. 16.0 Left ventricular e jection fraction is measured at 60 %. 2 . Normal right ventricular size. Normal right ventricular systolic function. 3 . Tri-leaflet aortic valve. Aortic valve leaflets appear structurally normal. Velocities, as well as gradients across the aortic v alve are normal. Mild aortic valve regurgitation. The ESTHER is 3.8 cm2. 4 . Pulmonic valve leaflets appear structurally normal. Normal pulmonic valve velocities by Doppler. There is mild pulmonic r egurgitation. 5 . Aortic root is moderately dilated. Sinus of Valsalva is 4.30 cm Ascending Aorta is 4.60 cm. Britney Franklin NP Electrophysiology: B P today: 116/80 P rior BP: 138/85 (09/17/2022) His updated medication list for this problem includes: Aspirin 81 Mg Tablet,delayed Release (dr/ec) (Aspirin) ..... Take 1 tablet by mouth once a day Carvedilol 3.125 Mg Tablet (Carvedilol) ..... Take 1 tablet by mouth twice a day Furosemide 20 Mg Tablet (Furosemide) ..... 1 tablet once a day as needed Britney Franklin NP Electrophysiology:see #1 edmond daly 24hr tele results. Britney Franklin NP Electrophysiology:see #1 Brandi Franklin NP Electrophysiology:pt turned in 24hr monitor 11/20/22. results pending. 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 Mean oxygen saturation of 9 4%, with the lowest being 83%. Jaycee Teresa MD Cardiology: P E on Eliquis. Has been switched to coumadin. INR followed by PCP. Last LVEF was 55% with mild AR, mild WA. Was seen by urologist, no new issues with Prostate CA. 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 IF HE HAS ANOTHER PE ON COUMADIN I WOULD RECOMMEND FIRMLY FOR IVC FILTER. June 07, [address] Pruitt September 17, [address] Elba Teresa MD Cardiology: 4 .24 cm noted on echo will repeat echo for further reevaluation ECHO 02/06/22 C ONCLUSIONS: 1 . Normal left ventricular systolic function. Normal left ventricular size. Normal left ventricular wall thickness. There is E to A w ave reversal consistent with impaired LV relaxation. Abnormal E/E`, suggestive of elevated LVEDP. 16.0 Left ventricular e jection fraction is measured at 60 %. 2 . Normal right ventricular size. Normal right ventricular systolic function. 3 . Tri-leaflet aortic valve. Aortic valve leaflets appear structurally normal. Velocities, as well as gradients across the aortic v alve are normal. Mild aortic valve regurgitation. The ESTHER is 3.8 cm2. 4 . Pulmonic valve leaflets appear structurally normal. Normal pulmonic valve velocities by Doppler. There is mild pulmonic r egurgitation. 5 . Aortic root is moderately dilated. Sinus of Valsalva is 4.30 cm Ascending Aorta is 4.60 cm. Jaycee Teresa MD Cardiology: O n coumadin, will check doppler at next follow up . September 17, 2022 C ONCLUSIONS: 1 . Chronic DVT of the right lower extremity in the veins listed above. 2 . Chronic DVT of the left lower extremity in the veins listed above. E lectronically signed by Jaycee Teresa MD on 09/01/2022 at 3:50 PM Jaycee Teresa MD Cardiology:Summary a nd Interpretation 1 . Reduced exercise capacity 2 . Normal pressure rate product 3 . No ST segment changes with posexercise, equivocal for ischemia, frequent PVCs. 4 . No chest pain provoked by treadmill exercise 5 . No significant arrhythmias 6 . Patient had modification of modified RENEE protocol due to inability to keep up with treadmill. Jaycee Teresa MD Electrophysiology - PA for new prescription - get a PA please. Bryon Potter MD Electrophysiology - PA for new prescription - get a PA please. :no chest pain H is updated medication list for this problem includes: Carvedilol 3.125 Mg Tablet (Carvedilol) ..... Take 1 tablet by mouth twice a day Warfarin 5 Mg Tablet (Warfarin) Bryon Potter MD Electrophysiology - PA for new prescription - get a PA please. : B P today: 125/85 P rior BP: 124/62 (08/01/2022) Yoni Mosher Electrophysiology - PA for new prescription - get a PA please. Yoni Mosher Electrophysiology - PA for new prescription - get a PA please. : B P today: 125/85 P rior BP: 124/62 (08/01/2022) Yoni Mosher Electrophysiology - PA for new prescription - get a PA please. : H is updated medication list for this problem includes: Orders: 9 9212 LTD 20-29min (CPT-85229) Bryon Potter MD Electrophysiology - PA for new prescription - get a PA please. : H is updated medication list for this problem includes: Mexiletine 200 Mg Capsule (Mexiletine) ..... Take 1 capsule by mouth three times a day Carvedilol 3.125 Mg Tablet (Carvedilol) ..... Take 1 tablet by mouth twice a day Warfarin 5 Mg Tablet (Warfarin) Lisinopril 10 Mg Oral Tablet (Lisinopril) ..... One tab. daily O rders: 9 92 LTD 20-29min (CPT-73325) Bryon Potter MD EP - :S/p PVC ablati on, no VT was inducbale thus he is not a candidate for defibrilator. I N FUTURE IF EPICARDIAL ABLATION NEEDED WILL REFER TO [facility] O rders: E KG (CPT-35612) S tress Routine (CPT-35574) 9 9215 HIGH 40-54min (CPT-02305) Bryon Potter MD EP - : S /p PVC ablation, no VT was inducbale thus he is not a candidate for defibrilator. He responded poorly to PVC ablation, the PVCs seem to be from an epicardial origin. I discussed starting Carvedilol and Magnesium for medical management for now. I do recommend ILR implant at some point to monitor his heart rates and rhythms. If he can tolerate Magnesium I would double his dose in a month. W ill arrange for routine stress to assess for arrythmias induced by exercise in a month as well. I N FUTURE IF EPICARDIAL ABLATION NEEDED WILL REFER TO [facility] H is updated medication list for this problem includes: Carvedilol 3.125 Mg Tablet (Carvedilol) ..... Take 1 tablet by mouth twice a day Warfarin 5 Mg Tablet (Warfarin) Orders: S tress Routine (CPT-26003) 9 9215 HIGH 40-54min (CPT-00737) Bryon Potter MD EP - :BP is satisfac tory. BP today: 124/62 P rior BP: 123/74 (06/20/2022) His updated medication list for this problem includes: Carvedilol 3.125 Mg Tablet (Carvedilol) ..... Take 1 tablet by mouth twice a day Furosemide 20 Mg Tablet (Furosemide) ..... 1 tablet once a day as needed Bryon Potter MD EP - : N o new sxs. Orders: S tress Routine (CPT-05582) 9 9215 HIGH 40-54min (CPT-99822) Bryon Potter MD Electrophysiology:S/ p successful PVC/VT ablation. Asymptomatic today will check telemetry. Yoni Mosher Electrophysiology:S/ p successful PVC/VT ablation. Asymptomatic today will check telemetry. Yoni Mosher Electrophysiology: A t baseline. Yoni Mosher Electrophysiology: O n coumadin, will check doppler at next follow up . Yoni Mosher Cardiology: P E on Eliquis. Has been switched to coumadin. INR followed by PCP. Last LVEF was 55% with mild AR, mild WA. Was seen by urologist, no new issues with Prostate CA. 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 IF HE HAS ANOTHER PE ON COUMADIN I WOULD RECOMMEND FIRMLY FOR IVC FILTER. June 07, [address] Elba Teresa MD Cardiology: C ONCLUSIONS: 1 . Chronic DVT of the right lower extremity in the veins listed above. 2 . Chronic DVT of the left lower extremity in the veins listed above. 3 . Significant venous insufficiency of the right greater saphenous vein, right femoral vein, and right popliteal vein. 4 . Superficial vein thrombosis of the left GSV as well as superficial vericosities near the low calf and ankle. 5 . Compared to previous study on 08/12/2019 there has been a decrease in burden of thrombosis bilaterally. August 31, 2020 R hoda on Coumadin followed by Dr. Pruitt Had DVT on Eliquis. Not a NOAC candidate Jaycee Teresa MD Cardiology: 4 .24 cm noted on echo will repeat echo for further reevaluation Jaycee Teresa MD Cardiology:needs mercy ing tumor with lump in left side of face a nd sigmoidoscopy next wk CANNOT COME OFF COUMADIN UNTIL HE HAS DVT STUDY DONE TO EVAL RIGHT LEG H E HAD PROCEDURE DONE ON 06/09/22 Jaycee Teresa MD Cardiology: T he average heart rate was 77bpm with a maximum rate of 144bpm and a minimum rate of 50bpm. Had several episodes of VT and PSVT. Continued to have frequent bigeminy PVCs. Will schedule an ablation Ablation site: right ventricle. S ystem used: Carto (3D). C atheter inserted successfully. E nergy type: radio frequency. I rrigation method: open irrigation cool tip. T he ablation procedure was successful. P ost ablation rhythm: sb. T emperature achieved: 33 C. E nergy delivered: 30 ibrahim. Jaycee Teresa MD Cardiology: T he average heart rate was 77bpm with a maximum rate of 144bpm and a minimum rate of 50bpm. Had several episodes of VT and PSVT. Continued to have frequent bigeminy PVCs. Will schedule an ablation A blation site: right ventricle. S ystem used: Carto (3D). C atheter inserted successfully. E nergy type: radio frequency. I rrigation method: open irrigation cool tip. T he ablation procedure was successful. P ost ablation rhythm: sb. T emperature achieved: 33 C. E nergy delivered: 30 ibrahim. Jaycee Teresa MD Telehealth:No new sx s. Yoni Mosher Telehealth: T he average heart rate was 77bpm with a maximum rate of 144bpm and a minimum rate of 50bpm. Had several episodes of VT and PSVT. Continued to have frequent bigeminy PVCs. Will schedule an ablation Yoni Mosher Telehealth: Venkat shanetifactoraleyda Yoni Chowlamar Telehealth: H is updated medication list for this problem includes: Carvedilol 3.125 Mg Tablet (Carvedilol) ..... 1 tablet twice a day Furosemide 20 Mg Tablet (Furosemide) ..... 1 tablet once a day as needed Yoni Chowlamar Electrophysiology:Th e average heart rate was 77bpm with a maximum rate of 144bpm and a minimum rate of 50bpm. Had several episodes of VT and PSVT. Continued to have frequent bigeminy PVCs. Will schedule an ablation Naty Caruso Electrophysiology:Th e average heart rate was 77bpm with a maximum rate of 144bpm and a minimum rate of 50bpm. Had several episodes of VT and PSVT. Continued to have frequent bigeminy PVCs. Will schedule an ablation Naty Caruso Electrophysiology:Th e average heart rate was 77bpm with a maximum rate of 144bpm and a minimum rate of 50bpm. Had several episodes of VT and PSVT. Continued to have frequent bigeminy PVCs. Will schedule an ablation Naty Caruso Cardiology:Checks bp s at home ususally in the 100-110 range H is updated medication list for this problem includes: Carvedilol 3.125 Mg Tablet (Carvedilol) ..... 1 tablet twice a day Furosemide 20 Mg Tablet (Furosemide) ..... 1 tablet once a day as needed Jaycee Teresa MD Cardiology:4.24 cm n oted on echo will repeat echo for further reevaluation Jaycee Teresa MD Cardiology: C ONCLUSIONS: 1 . Chronic DVT of the right lower extremity in the veins listed above. 2 . Chronic DVT of the left lower extremity in the veins listed above. 3 . Significant venous insufficiency of the right greater saphenous vein, right femoral vein, and right popliteal vein. 4 . Superficial vein thrombosis of the left GSV as well as superficial vericosities near the low calf and ankle. 5 . Compared to previous study on 08/12/2019 there has been a decrease in burden of thrombosis bilaterally. August 31, 2020 R hoda on Coumadin followed by Dr. Pruitt Had DVT on Eliquis. Not a NOAC candidate Jaycee Teresa MD Cardiology: H ighly unlikely to be CAD since he had prior cath in 2018 without obstructive CAD, if inhaler doesn't resolve will advise for GI eval Jaycee Teresa MD Cardiology:vaccinated x3 Jaycee Teresa MD Cardiology: P E on Eliquis. Has been switched to coumadin. INR followed by PCP. Last LVEF was 55% with mild AR, mild WA. Was seen by urologist, no new issues with Prostate CA. 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 IF HE HAS ANOTHER PE ON COUMADIN I WOULD RECOMMEND FIRMLY FOR IVC FILTER. June 07, [address] Elba Teresa MD Cardiology: m ild melita on home sleep. Not on CPAP Jaycee Teresa MD Cardiology: H SOME COMPONENT TO SOB WELL HIS MELITA AND HX OF PE. Also has valvular disease. Will check echo. Multifactorial, try inhaler Jaycee Teresa MD Cardiology: P E on Eliquis. Has been switched to coumadin. INR followed by PCP. Last LVEF was 55% with mild AR, mild WA. Was seen by urologist, no new issues with Prostate CA. 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 IF HE HAS ANOTHER PE ON COUMADIN I WOULD RECOMMEND FIRMLY FOR IVC FILTER. June 07, [address] Elba Teresa MD Cardiology: C ONCLUSIONS: 1 . Chronic DVT of the right lower extremity in the veins listed above. 2 . Chronic DVT of the left lower extremity in the veins listed above. 3 . Significant venous insufficiency of the right greater saphenous vein, right femoral vein, and right popliteal vein. 4 . Superficial vein thrombosis of the left GSV as well as superficial vericosities near the low calf and ankle. 5 . Compared to previous study on 08/12/2019 there has been a decrease in burden of thrombosis bilaterally. August 31, 2020 R emains on Coumadin followed by Dr. Pruitt Had DVT on Eliquis. Not a NOAC candidate Jaycee Teresa MD Cardiology:could be related to low BP, needs to maintain low BP due to AR Jaycee Teresa MD Cardiology: H ighly unlikely to be CAD since he had prior cath in 2018 without obstructive CAD, if inhaler doesn't resolve will advise for RALF Teresa MD Cardiology: H ighly unlikely to be CAD since he had prior cath in 2018 without obstructive CAD, if inhaler doesn't resolve will advise for GI maribel Teresa MD Cardiology: H SOME COMPONENT TO SOB WELL HIS MELITA AND HX OF PE. Also has valvular disease. Will check echo. Multifactorial, try inhaler Jaycee Teresa MD Cardiology: H SOME COMPONENT TO SOB WELL HIS MELITA AND HX OF PE. M ay benefit from Albuterol inhaler. Jaycee Teresa MD Cardiology: C ONCLUSIONS: 1 . Chronic DVT of the right lower extremity in the veins listed above. 2 . Chronic DVT of the left lower extremity in the veins listed above. 3 . Significant venous insufficiency of the right greater saphenous vein, right femoral vein, and right popliteal vein. 4 . Superficial vein thrombosis of the left GSV as well as superficial vericosities near the low calf and ankle. 5 . Compared to previous study on 08/12/2019 there has been a decrease in burden of thrombosis bilaterally. August 31, 2020 R emapaulina on Coumadin followed by Dr. Pruitt Had DVT on Eliquis. Not a NOAC candidate Jaycee Teresa MD Cardiology: P E on Eliquis. Has been switched to coumadin. INR followed by PCP. Last LVEF was 55% with mild AR, mild WA. Was seen by urologist, no new issues with Prostate CA. 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 IF HE HAS ANOTHER PE ON COUMADIN I WOULD RECOMMEND FIRMLY FOR IVC FILTER. Jaycee Teresa MD Cardiology:Highly un likely to be CAD since he had prior cath in 2019 without obstructive CAD, if inhaler doesn't resolve will advise for RALF Teresa MD Cardiology: C ONCLUSIONS: 1 . Chronic DVT of the right lower extremity in the veins listed above. 2 . Chronic DVT of the left lower extremity in the veins listed above. 3 . Significant venous insufficiency of the right greater saphenous vein, right femoral vein, and right popliteal vein. 4 . Superficial vein thrombosis of the left GSV as well as superficial vericosities near the low calf and ankle. 5 . Compared to previous study on 08/12/2019 there has been a decrease in burden of thrombosis bilaterally. August 31, 2020 R emains on Coumadin followed by Dr. Elba Teresa MD Cardiology: H SOME COMPONENT TO SOB WELL HIS MELITA AND HX OF PE. Multifactorial, try inhaler Jaycee Teresa MD Cardiology: H SOME COMPONENT TO SOB WELL HIS MELITA AND HX OF PE. M ay benefit from Albuterol inhaler. Jaycee Teresa MD Cardiology: m ild melita on home sleep. Not on CPAP Jaycee Teresa MD Cardiology:HAS SOME COMPONENT TO SOB WELL HIS MELITA AND HX OF PE. Jaycee Teresa MD Cardiology:HAS SOME COMPONENT TO SOB WELL HIS MELITA AND HX OF PE. Jaycee Teresa MD Cardiology:PE on Kristi norm. Has been switched to coumadin. INR followed by PCP. Last LVEF was 55% with mild AR, mild WA. Was seen by urologist, no new issues with Prostate CA. 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 IF HE HAS ANOTHER PE ON COUMADIN I WOULD RECOMMEND FIRMLY FOR IVC FILTER. Jaycee Teresa MD Cardiology:FOLLOWED AT [facility]., Jaycee Teresa MD Cardiology: H ad venous stripping done on L Leg. Had cellulitis on left leg. SChedule LON and venous reflux study. Suspect May Thurner. Reviewed with pt. Jaycee Teresa MD Cardiology: m ild melita on home sleep Jaycee Teresa MD Cardiology: S topped smoking since heart cath. Jaycee Teresa MD Cardiology:CONCLUSIO NS: 1 . Chronic DVT of the right lower extremity in the veins listed above. 2 . Chronic DVT of the left lower extremity in the veins listed above. 3 . Significant venous insufficiency of the right greater saphenous vein, right femoral vein, and right popliteal vein. 4 . Superficial vein thrombosis of the left GSV as well as superficial vericosities near the low calf and ankle. 5 . Compared to previous study on 08/12/2019 there has been a decrease in burden of thrombosis bilaterally. Jaycee Teresa MD Cardiology:Conclusio ns: 1 . Normal left ventricular systolic function. Normal left ventricular size. Normal left ventricular wall thickness. Mitral inflow D oppler demonstrates pseudonormal pattern consistent with diastolic dysfunction. E/E': 10.8. Left ventricular ejection f raction is measured at 55 %. 2 . Mild enlargement of right ventricle. Normal right ventricular systolic function. 3 . There is mild enlargement of right atrium. 4 . There is trace physiologic mitral valve regurgitation. 5 . Aortic valve leaflets appear structurally normal. Velocities, as well as gradients across the aortic valve are normal. Mild a ortic valve regurgitation. 6 . There is trace physiologic tricuspid valve regurgitation. 7 . There is mild pulmonic regurgitation Jaycee Teresa MD Cardiology: H ad venous stripping done on L Leg. Had cellulitis on left leg. SChedule LON and venous reflux study. Suspect May Thurner. Reviewed with pt. Jaycee Teresa MD Cardiology:mild melita on home slee p Jaycee Teresa MD Cardiology:no new sob Jaycee Teresa MD Cardiology: O n OAC DVT, elqiuis. Repeat DVT study in 1month. Reviewed plans with Dr. Pruitt, August 12, 2019 n o plans for ivc filter at present since no progrssion of dvt no hommans no palpable cords on calfs p geoffrey for continuing kristiquis Jaycee Teresa MD Cardiology:Conclusio ns: 1 . Known DVT of the right lower extremity (CFV-POP) that is still occluded one week post blood thinners. 2 . Acute DVT of the left lower extremity (CFV-POP). 3 . Left superficial venous thrombosis (SVT) of the distal greater saphenous vein. Jaycee Teresa MD Cardiology:On OAC DV T, elalthea. Repeat DVT study in 1month. Reviewed plans with Jaycee Moore MD Cardiology:Need to c heck for MELITA. Has multiple Sx for MELITA and had CHF. Jaycee Teresa MD Cardiology:Stopped smoking since heart cath. Jaycee Teresa MD Cardiology:Had non s elijah. NICMP, LVEF 45%. On Med Rx. H is updated medication list for this problem includes: Carvedilol 3.125 Mg Oral Tablet (Carvedilol) ..... 1 tab twice daily Furosemide 20 Mg Oral Tablet (Furosemide) ..... 1 tab once daily as needed for leg edema Lisinopril 10 Mg Oral Tablet (Lisinopril) ..... One tab. daily Jaycee Teresa MD Cardiology:Had venou s stripping done on L Leg. Had cellulitis on left leg. SChedule LON and venous reflux study. Suspect Etta Hernandez. Reviewed with pt. O rders: 9 9215 HIGH Complex (CPT-41778) FVC - 24613 (27357) F RC - 31464 (00623) D LCO - 48505 (74226) A mbulatory Oximetry (CPT-43880) 6 minute walk test (CPT-03911) A rterial - SENSILASE (CPT-76634) A rterial Duplex Bi-Lower EX (CPT-10348) V enous Doppler Bilateral LE - Reflux (CPT-57056) Jaycee Teresa MD Date Name EKG THYROID PANEL Vitamin D, 25-Hydrox y VITAMIN B12/FOLATE, SERUM PANEL BASIC METABOLIC PANE L W/EGFR IRON AND TOTAL IRON BINDING CAPACITY FERRITIN CBC (INCLUDES DIFF/P LT) EKG EKG Complete Echo HEMOGLOBIN A1c Microalb/Creatinine Urine, Random PROBNP, N TERMINAL COMPREHENSIVE METABO LIC PANEL, W/EGFR Aorta Duplex Ultraso und Carotid Duplex Bilat eral Holter Monitor 48 hr Venous Doppler Bilat eral LE Stress Routine Monitor - Telemetry (Mobile Cardiac) Venous Doppler Bilat eral LE - Reflux Monitor - Telemetry (Mobile Cardiac) Venous Doppler Unila teral RLE ABLATION w/ Anesthes ia MAGNESIUM CBC (H/H, RBC, INDIC ES, WBC, PLT) TSH, free T4, total T3 COMPREHENSIVE METABO LIC PANEL, W/EGFR MAGNESIUM CBC (INCLUDES DIFF/P LT) TSH, free T4, total T3 COMPREHENSIVE METABO LIC PANEL, W/EGFR Monitor - Telemetry (Mobile Cardiac) Monitor - Telemetry (Mobile Cardiac) Complete Echo Complete Echo Complete Echo Venous Doppler Bilat eral LE Venous Doppler Bilat eral LE Sleep Study Home Venous Doppler Bilat eral LE - Reflux Arterial Duplex Bi-L ower EX Arterial - SENSILASE 6 minute walk test Ambulatory Oximetry DLCO - 25756 FRC - 73947 FVC - 28824 HISTORY OF PROCEDURES Procedure Date Procedure Name Provider Procedure Notes S tatus Complex e/m visit ad d on Jaycee Teresa MD completed Shannon Teresa MD compl eted Shannon Rooney MD complet ed Shannon Bernrad MD completed Shannon Treesa MD compl eted Shannon Escalona RN completed Shannon Teresa MD compl eted Protime Rashard Escalona RN completed Protime Elizabeth Mueller RN completed Complex e/m visit ad d on Jaycee Teresa MD completed Shannon Gonzalez MD complete d Shannon Gonzalez MD complete d Complex e/m visit ad d on Jaycee Teresa MD completed EKG Jaycee Teresa MD compl eted Shannon Hughes MD completed Shannon Gonzalez MD complete d Protulises Teresa MD compl eted EKG Jaycee Teresa MD compl eted EKG Jaycee Teresa MD compl eted EKG Jaycee Teresa MD compl eted EKG Jaycee Teresa MD compl eted EKG Jaycee Teresa MD compl eted EKG Bryon Potter MD comp leted Schedule Followup Bryon Potter MD in 3 mon ths completed EKG Bryon Potter MD comp leted EKG Bryon Potter MD comp leted EKG Jaycee Teresa MD compl eted Protime Bryon Potter MD comp leted EKG Bryon Potter MD comp leted EKG Jaycee Teresa MD compl eted EKG Jaycee Teresa MD compl eted EKG Jaycee Teresa MD compl eted EKG Jaycee Teresa MD compl eted EKG Jaycee Teresa MD compl eted EKG Jaycee Teresa MD compl eted EKG Jaycee Teresa MD compl eted 6 minute walk test Jaycee Teresa MD completed EKG Jaycee Teresa MD compl eted
--- OUTSIDE RECORDS SUMMARY | 2024-12-07 16:21 | XMS_ITS | Encounter Summary ---
Author Organization [facility] Healthcare Address [address] [place] [address] Care Team Providers Care Client Program Manager Name Role Phone Jas Alcala MD Primary Care Provider [phone] Rodrigo Rosas MD Unavailable Bianca Hunter MD Unavailable [phone] Reason for Referral * MRI/CAT/PET Scan (Routine) - Authorized Specialty Diagnoses / Procedures Referred By Contac t Referred To Contact Radiology Diagnoses Malignant neoplasm of lower third of esophagus (CMS/HCC) (HCC) Procedures CT Chest Abdomen Pelvis W Contrast CT Chest Abdomen Pelvis W WO Contrast Nikolay Diaz MD [address] [facility] [address] [place] [address] Phone: tel: fax: [address] [phone] Referral ID Status Reason Start Date Expiration Date V isits Requested Visits Authorized [id number] Authorized 11/28/2024 12/28/2025 1 1 AND BEVERAGE ANALYST Reason for Visit * Reason Onset Date Comments GI Preprocedure 11/25/2024 Encounter Details Date Type Department Care Team (Late st Contact Info) Description 11/25/2024 Telephone [facility] Specialty Services [address] [place] [address] Ale Kay RN GI Preprocedure Social History Tobacco Use Types Packs/Day Years Used Date Smoking Tobacco: Former Cigarettes - 2019 Smokeless Tobacco: Never Alcohol Use Standard Drinks/Week Comments Yes 6 [...] on file Legal Sex Male 9:38 AM 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 I called pt to provide instructions. VM x 1 for pt to call me back at [phone].:Coumadin 5 day hold order pt to hold coumadin 12/08,12/09,12/10,12/11,12/12,12/13 PT to bridge with Lovenox with last dose on 12/12/24 in AM AND BEVERAGE ANALYST AND BEVERAGE ANALYST * Telephone Encounter - Ale Kay RN - 12/07/2024 8:57 AM CST I called pt PHILIPP x 1 for pt to call me back regarding wafarin AND BEVERAGE ANALYST * Addendum Note - Ale Kay RN - 12/05/2024 9:25 AM CSTAddended by: ALE KAY on: 12/05/2024 09:25 AM Modules accepted: Orders AND BEVERAGE ANALYST * Telephone Encounter - Ale Kay RN - 12/05/2024 9:09 AM CST I called the pt and he will try to call Dr. Alcala office to request Coumadin hold order. Pt informed to go to lab on day of procedure after CT scan for PT/INR pt verbalized understanding. called Dr. Jas Alcala office at [phone] to request Coumadin 5 day AND BEVERAGE ANALYST AND BEVERAGE ANALYST AND BEVERAGE ANALYST * Telephone Encounter - Ale Kay RN - 12/02/2024 12:23 PM CST I called Dr. Jas Alcala office at [phone] to request Coumadin 5 day hold VM x 1 for a call back at [phone] AND BEVERAGE ANALYST * Telephone Encounter - Ale Kay RN - 11/30/2024 11:41 AM CST I called Dr. Jas Alcala office at [phone] to request Coumadin 5 day hold order resent fax to [phone] and will fax to me at [phone] AND BEVERAGE ANALYST AND BEVERAGE ANALYST AND BEVERAGE ANALYST * Addendum Note - Ale Kay RN - 11/28/2024 11:49 AM CSTAddended by: ALE KAY on: 11/28/2024 11:49 AM Modules accepted: Orders AND BEVERAGE ANALYST * Telephone Encounter - Ale Kay RN - 11/28/2024 11:26 AM CST PROCEDURE Type: EGD/EUS+-EMR Indication: Malignant neoplasm of lower third of esophagus (CMS/HCC) (HCC) (C15.5) Referring Physician: RODRIGO ROSAS Date Referred: 11/25/24 CLINICAL ASSESSMENT [] Clinical assessment obtained via phone call with patient 11/28/24 []COVID/Flu Screening questions []BMI>45, Weight >350 lbs [] Patient had GI procedure/CPAP clinic/GI clinic <30 days (if Yes, no medical screening questions needed unless new clinical issues in last 30 days) Medical screening questions: BMI/Weight: NA CARDIOVASCULAR: Heart attack (SD)/stents in the past year (<12 mo)- Obtain cardiology records (elbert cath report), escalate to physician to consider not stopping antiplatelet or deferring procedure if elective. Consider CPAP referral. WC: Ok if JARVIS >12 mos. Case by case basis for 6-12 months, send to CPAP. SC: No heart attack within 6 months, JARVIS within 12 months, or BMS within 3 months. Flakita fib- If new (not previously known) diagnosis, needs cards or CPAP firstAFIB heart attack 2019- [facility] PCP for DVT RESPIRATORY/LUNG: None RENAL/LIVER/GI: None CKD Malignant neoplasm of lower third of esophagus (CMS/HCC) (HCC) GI: Previous COLON or EGD: Hx of Polyps, Vang, Barretts:no Hx of Constipation:No Have you ever required a two day prep? No BLEEDING/CLOTTING: GIB/anemia- Obtain most recent CBC, escalate to referring and GI physician if H&H<7 to consider transfusion NEUROLOGICAL: None ENDOCRINE: None PRIOR PROCEDURE ISSUES: None NURSE HEAD/: NA IMPLANTS.: None spinal stimulator 20 years ago pt states it does not work performed at [facility] PSYCH/Behavioral Hx: No SC has limited security Notes:Radiation proctitis prostate cancer 2012 back surgery with metal rods \ screws and had stimulator implanted pt states it does not work PACEMAKER/ICD Y/N: No/NA Device info: Last documented device check: Any shocks since last cards visit (if yes must see cardiology for procedure clearance): DIALYSIS Y/N: No/NA []HD- Schedule on non-HD day, see protocol []PD- Drain PD fluid AM of procedure, if colonoscopy order AB ppx, see protocol REGULAR DIABETIC MEDS Y/N: No/NA []Yes- Discuss diabetes medication management with prescribing physician GLP DIABETIC MEDICATIONS Y/N: No/NA None Educated Patient on the need to hold Medication, and to contact their ordering MD or Assistant Professor Of Physics about bridging medication for procedure. No [] Yes - Letter Sent to Ordering Physician/Assistant Professor Of Physics Date sent: Hold instructions: GLP Weight Loss Medications No Educated Patient on the need to hold Medication, and to contact their ordering MD or Assistant Professor Of Physics about bridging medication for procedure. Y/N: No/NA None [] Yes - Letter Sent to Ordering Physician/Assistant Professor Of Physics Hold older Instructions: BLOOD THINNERS/ANTICOAG/ANTIPLATELET (BESIDES ASA) Medication: Warfarin (Coumadin)- CHECK INR 2 HOURS PRIOR TO PROCEDURE AT OUTPT LAB (schedule case no earlier than 8:30 AM) Physician contacted for hold order/date sent: DR Jas [facility] PCP for DVT Hold order Method sent: [employer] Fax Date hold received:12/07/24 Hold instructions:Coumadin 5 day hold order pt to hold coumadin 12/08,12/09,12/10,12/11,12/12,12/13 PT to bridge with Lovenox with last dose on 12/12/24 in AM CONTINUE ASPIRIN INFORMATION REQUESTED []Imaging: []Medical Progress Note/H&P []Medication list []Other: PATIENT OPTIMIZATION []Physician reviewing escalation: []CPAP: Date scheduled: Outcome : [] Location limitations: Scheduling Scheduling location limitations: [employer] needed [] NA Language: POA [] NA Name: Required extended education:no SPECIAL PROCEDURE INSTRUCTIONS Scheduling Notes Procedure informationEGD/EUS+-EMR CT Chest/Abd/Pelvis same day Date of procedure: 12/13/24 Time of procedure: 1100 Arrival time: 710 arrival for [address] Chest Abd pelvis CAM 3rd floor plus 3rd floor CAM for labs after CT for PT/INR Location: [facility] CAM Proceduralist: JOE Instructions Method of instructions: MyChart 11/28/24 [x]Confirmation of ride/screen room operator [x]Post anesthesia restrictions given [x]NPO Instructions: [x]Diet Instructions: [x]Take non-blood thinner prescription meds that morning [x]Bring med list, photo ID, insurance card, no valuables []Bring COVID vaccination card (if vaccinated) Bowel Prep Prep prescribed: NA Method of Bowel Prep (RX): NA AND BEVERAGE ANALYST AND BEVERAGE ANALYST AND BEVERAGE ANALYST AND BEVERAGE ANALYST * Telephone Encounter - Ale Kay RN - 11/25/2024 1:12 PM CST Images from the original note were not included. I called the pt to schedule procedure VM x 1 for pt to call me back at [phone] [facility] Gastroenterology at [address] [place] [phone] Fax: Date: Nov 25, 2024 Ambulatory referral to Gastroenterology Patient: Marshall Olson [address] [facility] [id number] : 1950 SSN: [id number] Sex: M Insurance: [employer] Referring Provider Information: RODRIGO ROSAS Fax: Referral Information: # Visits: 1 Referral Type: Consultation [3] Urgency: Routine Referral Reason: Specialty Services Required Start Date: Nov 25, 2024 End Date: To be determined by Insurer Diagnosis: Malignant neoplasm of lower third of esophagus (CMS/HCC) (HCC) (C15.5) Refer to Location: [facility] (All Locations) Please contact the referral location for scheduling Process Instructions Call [phone] to schedule your visit. Refer to Provider: NIKOLAY DIAZ Phone #: [phone] Fax #: [phone] Address: [address] [facility] [address] Please select the performing region: [facility] (All Locations) [167] To provider: NIKOLAY DIAZ [[id number]] # of visits: 1 Entered by: Zelda Mukherjee MA Authorizing Provider: Rodrigo Rosas MD ( ) /EUS+-EMR Received: Today Taryn Wilcox Im [facility] Biliary Procedure Referrals Pool RE: Ne wpt request Received: Today Nikolay Diaz MD [place], [place] CT Chest/Abd/Pelvis and concurrent EGD/EUS+-EMR for staging vs resection of esophagea lcancer nodule. Previous Messages Previous Messages ----- Message ----- From: Taryn Wilcox Sent: 11/25/2024 10:12 AM FOOD AND BEVERAGE ANALYST To: Nikolay Diaz MD Subject: FW: Ne wpt request Please advise on schedulin. Office visit versus direct procedure (specify procedure) 2. Urgency/timeframe to schedule 3. Dx 4. Records needed? ----- Message ----- From: Bernadine Bergman CPhT Sent: 11/25/2024 9:55 AM FOOD AND BEVERAGE ANALYST To: Damon Hedrick Gi Biliary 1 Pool Subject: Ne wpt request Internal referral, records in [facility]/Care Everywhere. Please advise on scheduling AND BEVERAGE ANALYST documented in this encounter Plan of Treatment Upcoming Encounters Date Type Department Care Team (Latest Contact Info) Description 12/13/2024 11:00 AM FOOD AND BEVERAGE ANALYST Hospital Encounter [facility] [address] [place] [address] [address] [place] [id number] Nikolay Diaz MD [address] [place] [address] Malignant neoplasm of lower third of esophagus (CMS/HCC) (HCC) 12/13/2024 11:00 AM FOOD AND BEVERAGE ANALYST - 12/13/2024 12:00 PM FOOD AND BEVERAGE ANALYST Surgery [facility] [address] [facility] [address] [place] [address] Nikolay Diaz MD [address] [place] [address] EGD/EUS/EMR SC/OA/Interventiona l Scheduled Orders Name Type Priority Associated Diagnoses Orde r Schedule CT Chest Abdomen Pelvis W Contrast Imaging Schedule Routine, Read Routine (OP Routine) Malignant neoplasm of lower third of esophagus (CMS/HCC) (HCC) Expected: 12/13/2024 (Approximate), Expires: 11/28/2025 Protime-INR Lab STAT Malignant neoplasm of lower third of esophagus (CMS/HCC) (HCC) Atrial fibrillation, unspecified type (HCC) Expected: 12/13/2024, Expires: 12/05/2025 Scheduled Procedures Name Priority Associated Diagnoses Date/Ti me ESOPHAGOGASTRODUODENOSCOPY Malignant neoplasm of lower third of esophagus (CMS/HCC) (HCC) 12/13/2024 11:00 AM FOOD AND BEVERAGE ANALYST documented as of this encounter Visit Diagnoses Diagnosis Atrial fibrillation, unspecified type (HCC)- Primary Malignant neoplasm of lower third of esophagus (CMS/HCC) (HCC) Malignant neoplasm of lower third of esophagus Malignant neoplasm of lower third of esophagus (CMS/HCC) (HCC) Malignant neoplasm of lower third of esophagus Malignant neoplasm of lower third of esophagus (CMS/HCC) (HCC) Malignant neoplasm of lower third of esophagus documented in this encounter Care Teams Client Program Manager Relationship Specialty Start Date End Date Jas Alcala MD PCP - General Internal Medicine 02/26/18 Rodrigo Rosas MD [address] [place] [address] Consulting Physician Gastroenterology 11/28/24 Bianca Hunter MD [address] [place] [address] Medical Oncologist/Kiln Setter Medical Oncology 12/07/24 documented as of this encounter
--- OUTSIDE RECORDS SUMMARY | 2024-12-07 16:21 | XMS_ITS | Encounter Summary ---
Author Organization [facility] Healthcare Address [address] [place] [address] Care Team Providers Care Leg Breaker Name Role Phone Jas Alcala MD Primary Care Provider [phone] Lucio Rosas MD Unavailable Bianca Hunter MD Unavailable [phone] Encounter Details Date Type Department Care Team (Late st Contact Info) Description 05/07/2022 Orders Only [facility] Cardiac Catheterization Lab [address] [place] [address] Bryon Potter MD [address] [place] [address] Social History Tobacco Use Types Packs/Day Years Used Date Smoking Tobacco: Every Day Cigarettes 1 25 Smokeless Tobacco: Never Alcohol Use Standard Drinks/Week Comments Yes 6 (1 standard drink = 0.6 oz pur e alcohol) AUDIT-C Answer Date Recorded Frequency of Alcohol Consumption 2-3 times a wee k 01/16/2019 Average Number of Drinks 1 or 2 019 Frequency of Binge Drinking Never 12/31 Sex and Gender Information Value Date Recorded Sex Assigned at Not on file Legal Sex Male 9:38 AM 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 TRAINING 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 Gender Identity Not on file Sexual Orientation Not on file 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 Not on file Not on file 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 Not on file Not on file Not on file documented as of this encounter Plan of Treatment Upcoming Encounters Date Type Department Care Team (Latest Contact Info) Description 12/13/2024 11:00 AM TECHNICAL TRAINING MANAGER Hospital Encounter [facility] [place] [address] [facility] [address] [place] [address] Nikolay Dunn MD [address] [place] [address] Malignant neoplasm of lower third of esophagus (CMS/HCC) ([facility]) 12/13/2024 11:00 AM TECHNICAL TRAINING MANAGER - 12/13/2024 12:00 PM TECHNICAL TRAINING MANAGER Surgery [facility] [place] [address] [place] [address] Nikolay Dunn MD [address] [place] [address] EGD/EUS/EMR SC/OA/Interventiona l Scheduled Procedures Name Priority Associated Diagnoses Date/Ti me ESOPHAGOGASTRODUODENOSCOPY Malignant neoplasm of lower third of esophagus (CMS/HCC) ([facility]) 12/13/2024 11:00 AM TECHNICAL TRAINING MANAGER documented as of this encounter Visit Diagnoses Not on filedocumented in this encounter Care Teams Leg Breaker Relationship Specialty Start Date End Date Jas Alcala MD PCP - General Internal Medicine 02/26/18 Lucio Rosas MD [address] [address] Consulting Physician Gastroenterology 11/28/24 Bianca Hunter MD [address] [place] [address] Medical Oncologist/Snap Attacher Medical Oncology 12/07/24 documented as of this encounter
--- OUTSIDE RECORDS SUMMARY | 2024-12-07 16:21 | XMS_ITS | Data Portability ---
Author Organization [facility] Address [address] [facility] [place] [address] Care Team Providers Care Abstract Manager Name Role Phone CLEVE MARIEE Urologist KOKI HAMILTON Family Practice Physician Assistant [phone] BUBBA ALCALA Primary Care Provider [phone] Assessment Encounter Date Assessment Date Assessment LastModified by Organization Details LastModified Time 12/28/2023 12/28/2023 GI to see prep for proctitis blood work including pro time and INR signs and symptoms of heart failure discussed caloric restriction to get some weight off also discussed he will follow-up with me in about 3 months old records from previous clinic to be asked for remain anticoagulated because of history of PE and his chronic DVT left leg right now does not have any signs or symptoms of severe anemia [email or web address] Not available 01/04/2024 23:14:55 04/05/2024 04/05/2024 we will continue current therapy blood work is being done currently for his anemia by Hematology cardiovascular-wi se does appear to be stable does have a history of prostate into issues I believe prostate cancer as well and he is following up with that service he will follow up with me in 3 months Not available 05/01/2024 22:14:08 07/12/2024 07/12/2024 flu shot continu e current therapy all questions have been answered follow up in 4 months [email or web address] Not available 07/30/2024 21:44:40 Plan of Treatment Reminders Order Date Submit Date Provider Last Modified By Organization Details Last Modified Time Details Appointments ANY 15 2024 02:15P Venkat Alcala MD Not available Not available Not available Lab PT/INR 2023 024 [place] [facility], [address], [place], [address], 12/31/2023 17:10:49 CBC w/ auto diff 2023 024 [place] [facility], [address] Ke[address], [address], [place], [address], 12/31/2023 17:10:49 lipid panel, serum 2023 024 [place] [facility], [address], [address], [place], [address], 12/31/2023 17:10:47 CMP, serum or plasma 2023 024 [place] [facility], [address], [address], [place], [address], 12/31/2023 17:10:48 Referral None recorded . Procedures None recorded . Surgeries None recorded . Imaging None recorded . Medication Orders None recorded . Patient TargetsNo targets recorded. Patient InstructionsNo instructions recorded. Reason for Referral None Reported. Results Created Date Observation Date Name Description Value Unit Range Abnormal Flag Note LastModifiedBy Organization Detail LastModifiedTime 12/28/1912/29/2023 LIPID PANEL cholesterol, total 150 mg/dL 100-19 9 Not Available [facility] [address] [place], [address], 12/31/2023 17:10:47 12/28/19 24 12/29/2023 LIPID PANEL triglyceride s 141 mg/dL 0-149 Not Available [facility] [address] [facility], [place], [address], 12/31/2023 17:10:47 12/28/19 24 12/29/2023 LIPID PANEL HDL cholesterol 57 mg/dL >39 Not Available [facility] [address] [place], [address], 12/31/2023 17:10:47 12/28/19 24 12/29/2023 LIPID PANEL VLDL cholesterol will 24 mg/dL 5-40 Not Available [facility] [address] [place], [address], 12/31/2023 17:10:47 12/28/19 24 12/29/2023 LIPID PANEL LDL chol calc ([facility]) 69 mg/dL 0-99 Not Available [facility] [address] [place], [address], 12/31/2023 17:10:47 12/28/19 24 12/29/2023 COMP. METAB OLIC PANEL (14) glucose 87 mg/dL 70-99 Not Available [facility] [address] [place], [address], 12/31/2023 17:10:48 12/28/19 24 12/29/2023 COMP. METAB OLIC PANEL (14) BUN 16 mg/dL 8-27 Not Available [facility] [address] [place], [address], 12/31/2023 17:10:48 12/28/19 24 12/29/2023 COMP. METAB OLIC PANEL (14) creatinine 1.71 mg/dL 0.76-1 .27 above high normal Not Available [facility] [address] [place], [address], 12/31/2023 17:10:48 12/28/19 24 12/29/2023 COMP. METAB OLIC PANEL (14) eGFR 42 mL/mi n/1.7 3 >59 below low normal Not Available [facility] [address] [place], [address], 12/31/2023 17:10:48 12/28/19 24 12/29/2023 COMP. METAB OLIC PANEL (14) BUN/creatini ne ratio 9 10-24 below low normal Not Available [facility] [address] [place], [address], 12/31/2023 17:10:48 12/28/19 24 12/29/2023 COMP. METAB OLIC PANEL (14) sodium 137 mmol/ L 134-14 4 Not Available [facility] [address] [place], [address], 12/31/2023 17:10:48 12/28/19 24 12/29/2023 COMP. METAB OLIC PANEL (14) potassium 5.0 mmol/ L 3.5-5. 2 Not Available [facility] [address] [place], [address], 12/31/2023 17:10:48 12/28/19 24 12/29/2023 COMP. METAB OLIC PANEL (14) chloride 102 mmol/ L 96-106 Not Available [facility] [address] [place], [address], 12/31/2023 17:10:48 12/28/19 24 12/29/2023 COMP. METAB OLIC PANEL (14) carbon dioxide, total 24 mmol/ L 20-29 Not Available [facility] [address] [place], [address], 12/31/2023 17:10:48 12/28/19 24 12/29/2023 COMP. METAB OLIC PANEL (14) calcium 9.5 mg/dL 8.6-10 .2 Not Available [facility] [address] [place], [address], 12/31/2023 17:10:48 12/28/19 24 12/29/2023 COMP. METAB OLIC PANEL (14) protein, total 7.0 g/dL 6.0-8. 5 Not Available [facility] [address] [place], [address], 12/31/2023 17:10:48 12/28/19 24 12/29/2023 COMP. METAB OLIC PANEL (14) albumin 4.3 g/dL 3.8-4. 8 Not Available [facility] [address] [place], [address], 12/31/2023 17:10:48 12/28/19 24 12/29/2023 COMP. METAB OLIC PANEL (14) globulin, total 2.7 g/dL 1.5-4. 5 Not Available [facility] [address] [place], [address], 12/31/2023 17:10:48 12/28/19 24 12/29/2023 COMP. METAB OLIC PANEL (14) A/G ratio 1.6 1.2-2. 2 Not Available [facility] [address] [place], [address], 12/31/2023 17:10:48 12/28/19 24 12/29/2023 COMP. METAB OLIC PANEL (14) bilirubin, total 0.3 mg/dL 0.0-1. 2 Not Available [facility] [address] [place], [address], 12/31/2023 17:10:48 12/28/19 24 12/29/2023 COMP. METAB OLIC PANEL (14) alkaline phosphatase 70 IU/L 44-121 Not Available [facility] [address] [place], [address], 12/31/2023 17:10:48 12/28/19 24 12/29/2023 COMP. METAB OLIC PANEL (14) AST (SGOT) 24 IU/L 0-40 Not Available [facility] [address] [place], [address], 12/31/2023 17:10:48 12/28/19 24 12/29/2023 COMP. METAB OLIC PANEL (14) ALT (SGPT) 16 IU/L 0-44 Not Available [facility] [address] [place], [address], 12/31/2023 17:10:48 12/28/19 24 12/31/2023 PROTH ROMBI N TIME, INR prothrombin time 18.9 sec above high normal Refer ence Range : 18 years and older : 9.1 - 12.0 Not Available [facility] [address] [place], [address], 12/31/2023 17:10:49 12/28/19 24 12/31/2023 PROTH ROMBI N TIME, INR INR 1.9 ratio above high normal Refer ence Range : >1 month : 0.9 - 1.2 Not Available [facility] [address] [place], [address], 12/31/2023 17:10:49 12/28/19 24 12/29/2023 CBC WITH DIFFE RENTI AL/PL ATELE T WBC 6.3 x10e3 /uL 3.4-10 .8 Not Available [facility] [address] [place], [address], 12/31/2023 17:10:49 12/28/19 24 12/29/2023 CBC WITH DIFFE RENTI AL/PL ATELE T RBC 4.09 x10e6 /uL 4.14-5 .80 below low normal Not Available [facility] [address] [place], [address], 12/31/2023 17:10:49 12/28/19 24 12/29/2023 CBC WITH DIFFE RENTI AL/PL ATELE T hemoglobin 11.7 g/dL 13.0-1 7.7 below low normal Not Available [facility] [address] [place], [address], 12/31/2023 17:10:49 12/28/19 24 12/29/2023 CBC WITH DIFFE RENTI AL/PL ATELE T hematocrit 36.6 % 37.5-5 1.0 below low normal Not Available [facility] [address] [place], [address], 12/31/2023 17:10:49 12/28/19 24 12/29/2023 CBC WITH DIFFE RENTI AL/PL ATELE T MCV 90 fL 79-97 Not Available [facility] [address] [place], [address], 12/31/2023 17:10:49 12/28/19 24 12/29/2023 CBC WITH DIFFE RENTI AL/PL ATELE T MCH 28.6 pg 26.6-3 3.0 Not Available [facility] [address] [place], [address], 12/31/2023 17:10:49 12/28/19 24 12/29/2023 CBC WITH DIFFE RENTI AL/PL ATELE T MCHC 32.0 g/dL 31.5-3 5.7 Not Available [facility] [address] [place], [address], 12/31/2023 17:10:49 12/28/19 24 12/29/2023 CBC WITH DIFFE RENTI AL/PL ATELE T RDW 14.9 % 11.6-1 5.4 Not Available [facility] [address] [place], [address], 12/31/2023 17:10:49 12/28/19 24 12/29/2023 CBC WITH DIFFE RENTI AL/PL ATELE T platelets 267 x10e3 /uL 150-45 0 Not Available [facility] [address] [place], [address], 12/31/2023 17:10:49 12/28/19 24 12/29/2023 CBC WITH DIFFE RENTI AL/PL ATELE T neutrophils 43 % notest ab. Not Available [facility] [address] [place], [address], 12/31/2023 17:10:49 12/28/19 24 12/29/2023 CBC WITH DIFFE RENTI AL/PL ATELE T lymphs 24 % notest ab. Not Available [facility] [address] [place], [address], 12/31/2023 17:10:49 12/28/19 24 12/29/2023 CBC WITH DIFFE RENTI AL/PL ATELE T monocytes 12 % notest ab. Not Available [facility] [address] [place], [address], 12/31/2023 17:10:49 12/28/19 24 12/29/2023 CBC WITH DIFFE RENTI AL/PL ATELE T eos 19 % notest ab. Not Available [facility] [address] [place], [address], 12/31/2023 17:10:49 12/28/19 24 12/29/2023 CBC WITH DIFFE RENTI AL/PL ATELE T basos 1 % notest ab. Not Available [facility] [address] [place], [address], 12/31/2023 17:10:49 12/28/19 24 12/29/2023 CBC WITH DIFFE RENTI AL/PL ATELE T neutrophils (absolute) 2.8 x10e3 /uL 1.4-7. 0 Not Available [facility] [address] [place], [address], 12/31/2023 17:10:49 12/28/19 24 12/29/2023 CBC WITH DIFFE RENTI AL/PL ATELE T lymphs (absolute) 1.5 x10e3 /uL 0.7-3. 1 Not Available [facility] [address] [place], [address], 12/31/2023 17:10:49 12/28/19 24 12/29/2023 CBC WITH DIFFE RENTI AL/PL ATELE T monocytes(ab solute) 0.7 x10e3 /uL 0.1-0. 9 Not Available [facility] [address] [place], [address], 12/31/2023 17:10:49 12/28/19 24 12/29/2023 CBC WITH DIFFE RENTI AL/PL ATELE T eos (absolute) 1.2 x10e3 /uL 0.0-0. 4 above high normal Not Available [facility] [address] [place], [address], 12/31/2023 17:10:49 12/28/19 24 12/29/2023 CBC WITH DIFFE RENTI AL/PL ATELE T baso (absolute) 0.1 x10e3 /uL 0.0-0. 2 Not Available [facility] [address] [place], [address], 12/31/2023 17:10:49 12/28/19 24 12/29/2023 CBC WITH DIFFE RENTI AL/PL ATELE T immature granulocytes 1 % notest ab. Not Available [facility] [address] [place], [address], 12/31/2023 17:10:49 12/28/19 24 12/29/2023 CBC WITH DIFFE RENTI AL/PL ATELE T immature grans (abs) 0.1 x10e3 /uL 0.0-0. 1 Not Available [facility] [address] [place], [address], 12/31/2023 17:10:49 02/01/20 24 02/04/2024 PROTH ROMBI N TIME, INR prothrombin time 22.0 sec above high normal Refer ence Range : 18 years and older : 9.1 - 12.0 Not Available [facility] [address] [place], [address], 02/04/2024 12:44:03 02/01/20 24 02/04/2024 PROTH ROMBI N TIME, INR INR 2.2 ratio above high normal Refer ence Range : >1 month : 0.9 - 1.2 Not Available [facility] [address] [facility], [place], [address], 02/04/2024 12:44:03 12/16/19 24 11/20/2023 colon oscop y proce dure (PROC ) No observ ation record ed. [email or web address] [facility] [address] [place], [address], 12/16/2023 17:16:27 01/21/20 24 01/21/2024 US, echoc ardio gram No observ ation record ed. [facility] [address], [place], [address], 01/25/2024 15:02:21 Result Notes None recorded. Problems Name Problem SNOMED Code Status Onset Date Resolution Date Notes Provider Name and Address Organization Details Recorded Time Gastroesophage al reflux disease without esophagitis 301686366 Active 2023 Bubba Alcala MD Attn: Fred daly,[address] [place], [address], [place] - [facility] 4 22:09:46 Dyslipidemia 235528857 Active 2023 Bubba Alcala MD Attn: Fred daly,[address] [place], [address], [place] [facility] 4 22:09:47 Chronic anemia 340670128 Active 2023 Bubba Alcala MD Attn: Fred daly,[address] [place], [address], [place] [facility] 4 22:09:50 Inflammatory bowel disease 40850783 Active 2023 Bubba Alcala MD Attn: Fred daly,[address] [facility], [place], [address], [place] [facility] 4 22:09:52 History of pulmonary embolus 011972242 Active 2023 Bubba Alcala MD Attn: Fred daly,[address], [place], [address], [place] [facility] 4 22:12:55 History of malignant neoplasm of prostate 683651005 Active 2023 Bubab Alcala MD Attn: Fred daly,[address], [place], [address], [place] [facility] 4 22:14:37 Cervical spondylosis 301535063 Active 2023 Bubba Alcala MD Attn: Fred daly,[address] [facility], [place], [address], [place] [facility] 4 21:43:45 Problem Notes None recorded. Procedures Surgical History None recorded. Imaging Results Imaging Date Name Status LastModified by Organization Details LastModified Time 11/20/2023 colonoscopy procedure (PROC) completed [address] [place], [address], 12/16/2023 17:16:27 01/21/2024 , echocardiogram completed [facility] [address] [facility], [place], [address], 01/25/2024 15:02:21 Procedure Notes None recorded. Medical Equipment None Reported. Allergies Allergen ID Allergen Name Allergen Category Reaction Reaction Severity Criticality Documentation Date Start Date Code Code System Note Provider Name and Address Organization Details Recorded Time 872158 amoxicill in medicatio n hives Not available Not available 12/28/2023 723 RxNorm Not Available Not Available Not Available 479263 Farxiga medicatio n Not available Not available Not available 12/28/2023 39028 72 RxNorm peria nal rash Not Available Not Available Not Available 007214 Celebrex medicatio n hives Not available Not available 12/28/2023 86455 7 RxNorm Not Available Not Available Not Available 880979 Lyrica medicatio n Not available Not available Not available 12/28/2023 51618 1 RxNorm blurr y vismarjorie n Not Available Not Available Not Available Medications Name Sig Start Date Stop Date Status Note LastModified by Organization Details LastModified Time prednisone 10 mg tablet TAKE 1 TAB BY MOUTH 3 TIMES A DAY X 3 DAYS, 1 TAB 2 TIMES A DAY X 2 DAYS, 1 TAB ONCE A DAY X 1 DAY 01/03 completed Not Available Not Available Not Available sulfasalazi ne 500 mg tablet TAKE 1 TABLET BY MOUTH THREE TIMES A DAY 07/12 completed Not Available Not Available Not Available atorvastati n 10 mg tablet TAKE 1 TABLET BY MOUTH DAILY 2024 active Not Available Not Available Not Avai lable nystatin 100,000 unit/gram topical ointment APPLY 1 GRAM TO AFFECTED AREA(S) TWICE DAILY FOR 15 DAYS active Not Available Not Available No t Available hydrocodone 5 mg-acetamin ophen 325 mg tablet TAKE 1 TABLET BY MOUTH EVERY 8 HOURS NEEDED 04/05 completed Not Available Not Available Not Available cyanocobala min (vit B-12) 1,000 mcg tablet TAKE 1 TABLET BY MOUTH EVERY DAY IN THE MORNING active Not Available Not Available No t Available warfarin 2.5 mg tablet Take 1 tablet every day by oral route. 04/05 completed Not Available Not Available Not Available carvedilol 3.125 mg tablet TAKE 1 TABLET BY MOUTH TWICE DAILY 2023 active Not Available Not Available Not Avai lable pantoprazol e 20 mg tablet,tamara yed release TAKE 1 TABLET BY MOUTH EVERYDAY AT BEDTIME active Not Available Not Available No t Available pantoprazol e 40 mg tablet,tamara yed release TAKE 1 TABLET BY MOUTH 2 TIMES A DAY BEFORE BREAKFAST AND DINNER. active Not Available Not Available No t Available triamcinolo ne acetonide 0.1 % topical ointment APPLY 1 GRAM TOPICALLY TO AFFECTED AREA TWICE A DAY FOR 15 DAYS 04/05 completed Not Available Not Available Not Available warfarin 5 mg tablet TAKE 1 TABLET BY MOUTH DAILY DIRECTED 2023 active Not Available Not Available Not Avai lable mexiletine 200 mg capsule active Not Available Not Available Not Available furosemide 20 mg tablet TAKE 1 TABLET BY MOUTH DAILY NEEDED FOR LEG EDEMA 2024 active Not Available Not Available Not Avai lable gabapentin 100 mg capsule TAKE 1 CAPSULE BY MOUTH 3 TIMES DAILY 2023 active Not Available Not Available Not Avai lable warfarin 1 mg tablet Take 1 tablet every day by oral route. active Not Available Not Available No t Available albuterol sulfate HFA 90 mcg/actuati on aerosol inhaler USE 2 INHALATIO NS BY MOUTH EVERY 4 HOURS NEEDED 2023 active Not Available Not Available Not Avai lable ferrous sulfate 325 mg (65 mg iron) tablet,tamara yed release TAKE 1 TABLET BY MOUTH TWICE A DAY active Not Available Not Available No t Available fluticasone propionate 50 mcg/actuati on nasal spray,suspe nsion USE 1 SPRAY NASALLY DAILY active pt says he uses PRN Not Available Not Available Not Available solifenacin 5 mg tablet TAKE 1 TABLET BY MOUTH EVERYDAY AT BEDTIME active Not Available Not Available No t Available Farxiga 5 mg tablet TAKE 1 TABLET BY MOUTH EVERY DAY 12/28 completed Not Available Not Available Not Available Sutab 1.479-0.188 -0.225 gram tablet TAKE 12 TABLETS BY MOUTH 2 (TWO) TIMES A DAY TAKE DIRECTED BY GI OFFICE active Not Available Not Available No t Available Vitals Date Recorded Body height Body mass index (BMI) Body weight Heart rate Respiratory rate Body temperature Oxygen saturation Oxygen saturation in Arterial blood by Pulse oximetry Systolic blood pressure Diastolic blood pressure Systolic blood pressure Diastolic blood pressure Provider Name and Address Organization Details Last Updated DateTime 4 181.61 cm 40 kg/m2 089739. 58 g 81 /min 14 /min 97.7 [degF] 97 % 97 % 138 mm[Hg] 82 mm[Hg] 126 mm[Hg] 72 mm[Hg] NORA Cadet [place] - [facility] 4 16:19:07 Date Recorded Body height Body mass index (BMI) Body weight Heart rate Oxygen saturation Oxygen saturation in Arterial blood by Pulse oximetry Systolic blood pressure Diastolic blood pressure Provider Name and Address Organization Details Last Updated DateTime 4 181.61 cm 39.5 kg/m2 962958. 45 g 64 /min 99 % 99 % 122 mm[Hg] 74 mm[Hg] Puja Beckwith [place] - [facility] 4 15:58:12 Date Recorded Body height Body mass index (BMI) Body weight Heart rate Oxygen saturation Oxygen saturation in Arterial blood by Pulse oximetry Systolic blood pressure Diastolic blood pressure Provider Name and Address Organization Details Last Updated DateTime 4 181.61 cm 39.9 kg/m2 060867. 47 g 62 /min 99 % 99 % 126 mm[Hg] 68 mm[Hg] Sherine Hammonds [place] - [facility] 14:52:37 Social History Question Answer Notes LastModified by Organizat ion Details LastModified Time Tobacco Smoking Status Former Smoker NORA Cadet, [place] - [facility] 12/28/2023 16:20:38 What Was The Date Of Your Most Recent Tobacco Screening? 07/12/2024 [email or web address] Information not available 07/12/2024 What Is Your Current Pack Years? 30ormorepac yoannas Information not available 12/28/2023 At What Age Did You Start Smoking Tobacco? 13 Information not available 12/28/2023 How Many Years Have You Smoked Tobacco? 50 Quit 2019 Information not available 12/28/2023 Sex: Unknown Functional Status None recorded. Mental Status None recorded. Family History Relationship Description Onset Age of this Age Resolved Age Notes LastModified by Organization Details LastModified Time Mother Malignant tumor of breast [email or web address] Not available 2024 11:52:44 Father Malignant neoplastic disease [email or web address] Not available 2024 11:53:00 Father Deep venous thrombosis [email or web address] Not available 11/17 11:53:06 Father Pulmonary embolism [email or web address] Not available 2024 11:53:15 Medical History Condition Response Coronary Artery Disease Y Other N High Blood Pressure N Atrial Fibrillation N Kidney or Bladder Problems Y Thyroid Problems N GI Problems Y Depression N COPD N Blood Clots Y Have you had a mammogram in the last yea r? N Skin Problems N Anemia Y Heart Attack ([place]) Y Anxiety Disorder N Diabetes N Muscle, Joint, or Bone Problems Y Seizures/Epilepsy N Have you had a colonoscopy in the last 1 0 years? Y Acid Reflux (GERD) Y Cancer Y Stroke N Asthma N Allergies Y Have you had a PSA blood test in the las t year? N High Cholesterol Y Hepatitis N Liver Disease N Headaches N Heart Failure Y Osteoporosis N Immunizations Vaccine Type Date Status Note Provider Nam e and Address Organization Details Recorded Time Influenza, high-dose, quadrivalent, PF 3 completed Emily Old Fields null, [place] - [facility] 11/17/2024 11:46:12 Influenza, high-dose, quadrivalent, PF 2 completed Emily [place] [facility] 11/17/2024 11:46:12 Influenza, high-dose, quadrivalent, PF 1 completed Emily Mirand[place] [facility] 11/17/2024 11:46:12 COVID-19, mRNA, LNP-S, PF, 100 mcg/0.5mL dose or 50 mcg/0.25mL dose 2 completed Emily Old Fields [place] [facility] 11/17/2024 11:46:12 COVID-19, mRNA, LNP-S, PF, 100 mcg/0.5mL dose or 50 mcg/0.25mL dose 1 completed Emily [place] [facility] 11/17/2024 11:46:12 COVID-19, mRNA, LNP-S, PF, 100 mcg/0.5mL dose or 50 mcg/0.25mL dose 1 completed Emily [place] [facility] 11/17/2024 11:46:12 COVID-19, mRNA, LNP-S, PF, 100 mcg/0.5mL dose or 50 mcg/0.25mL dose 1 completed Emily [place] [facility] 11/17/2024 11:46:12 influenza, unspecified formulation 8 completed [place] [facility] 11/17/2024 11:46:12 influenza, unspecified formulation 4 completed Emily [place] [facility] 11/17/2024 11:46:13 Influenza, high-dose, trivalent, PF 8 completed [place] [facility] 11/17/2024 11:46:13 Influenza, high-dose, trivalent, PF 9 completed [place] [facility] 11/17/2024 11:46:13 Influenza, high-dose, trivalent, PF 7 completed Emily [place] [facility] 11/17/2024 11:46:13 Influenza, split virus, trivalent, preservative 3 completed Emily [place] [facility] 11/17/2024 11:46:13 Influenza, split virus, quadrivalent, PF 5 completed Emily [place] [facility] 11/17/2024 11:46:13 Pneumococcal conjugate PCV20, polysaccharide [id number] conjugate, adjuvant, PF 4 completed Bubba Alcala MD Attn: Accounting,[address] [place], [address], [facility] - [facility] 05/01/2024 22:07:26 Influenza, high-dose, trivalent, PF 4 completed Bubba Alcala MD Attn: Accounting,[address] [place], [address], [facility] - [facility] 07/30/2024 21:41:48 Past Encounters Encounter ID Performer Location Encounter Start Date Encounter Closed Date Diagnosis/Indication Diagnosis SNOMED-CT Code Diagnosis ICD10 Code Diagnosis Note [id number] [facility] [address] [place] [phone] 12/28/2023 15:33:31 12/28/2023 17:03:34 Proctitis 9431279 K62.89 Anticoagulant therapy 18 8958362 Z79.01 Hyperlipidemia 96589272 E78.5 Long-term drug therapy 635418129 Z79.899 Nonischemi c congestive cardiomyopathy 6149038486 04 I42.0 History of malignant neoplasm of prostate 350557052 Z85.46 Chronic ki dney disease stage 3 718518925 N18.30 Ventricula r tachycardia 94883333 I47.20 [id number] Bubba Alcala MD [facility] (Adult Med) [address] [place] [phone] 04/05/2024 15:47:26 04/05/2024 17:08:10 Administration of pneumococcal vaccine 57251813 Z23 Gastroesop hageal reflux disease without esophagitis 746301496 K21.9 Dyslipidemia 417303156 E 78.5 Chronic anemia 009020705 D64.9 Inflammato ry bowel disease 51179335 K52.9 History of pulmonary embolus 745329166 Z86.711 History of malignant neoplasm of prostate 365367720 Z85.46 [id number] Bubba Alcala MD [facility] (Adult [facility]) [address] [place] [phone] 07/12/2024 14:26:22 07/12/2024 15:52:19 Body mass index 30+ - obesity 598200710 Z68.39 BMI 39.9 Administra tion of influenza vaccine 16700669 Z23 Dyslipidemia 875721053 E 78.5 Chronic anemia 889215527 D64.9 Gastroesop hageal reflux disease without esophagitis 088625627 K21.9 Cervical spondylosis 387 793840 M47.812 Health Concerns Section Related Observation LastModified by Organization Detai ls LastModified Time None Recorded Concern Status LastModified by Organization Details LastModified Time None Recorded Advance Directives Directive None Recorded Payers Encounter Date Sequence Insurance Name Policy Number Policy Abbasi Covered Member ID Abbasi Member ID Guarantor Name 12/28/2023 1 [facility] (MEDICARE REPLACEMENT/A DVANTAGE - HMO) [id number] Marshall Olson [id number] Marshall Wesley 04/05/2024 1 [facility] (MEDICARE REPLACEMENT/A DVANTAGE - HMO) [id number] Marshall Olson [id number] Marshall Olson 07/12/2024 1 [facility] (MEDICARE REPLACEMENT/A DVANTAGE - HMO) [id number] Marshall Olson [id number] [facility] Notes Date Note Type Note Provider Name and Address Organization Details Recorded Time 12/28/2023 text/html Blood in stool colonoscopy proctitis needs to follow-up with GI still passing some bloodChronic anticoagulation needs INRHistory of PE no shortness of breathChronic DVT left leg stableNonischemic cardiomyopathy no signs or symptoms of heart failure last EF 45%History of prostate cancer follows with urologyCKD 3 we have been following blood workDJD cervical spine not having any myelopathy types ofRhinitis stable SYDNIE Ackerman, [place] - [facility] 02/12/2024 14:18:09 04/05/2024 text/html 74-year-old foll ow up on care history of GERD dyslipidemia chronic anemia inflammatory bowel disease history of pulmonary embolus while on Eliquis and has been maintained on warfarin has had ventricular tachycardia and some cardiomyopathy in the past however follow-up echos have shown EF of around 50% and he continues to see Cardiology history of DVT chronic neck pain and neuropathic pain Bubba Alcala MD Attn: Accounting,[address] [facility], [place], [address], [facility] 05/01/2024 22:15:04 07/12/2024 text/html chronic anemia h e has does not have any symptoms at this time GERD no nausea no vomiting chronic neck pain has been stable dyslipidemia trying to watch his diet history of PE no cardiopulmonary symptoms today still has some bleeding from radiation proctitis Bubba Alcala MD Attn: Accounting[address] , [place], [address], [facility] - [facility] 07/30/2024 21:45:03
--- OUTSIDE RECORDS SUMMARY | 2024-12-07 16:21 | XMS_ITS | Encounter Summary ---
Author Organization [facility] Healthcare Address [address] [place] [address] Care Team Providers Care Field Recruiter Name Role Phone Jas Alcala MD Primary Care Provider [phone] Lucio Rosas MD Unavailable Bianca Hunter MD Unavailable [phone] Reason for Visit * Reason Comments Transfusion Encounter Details Date Type Department Care Team (Late st Contact Info) Description 12/07/2024 12:00 PM PLANER TAILER Infusion [facility] at [address] [place] [phone] Anemia, unspecified type (Primary Dx) Social History Tobacco Use Types Packs/Day Years Used Date Smoking Tobacco: Former Cigarettes 1 - 2019 Smokeless Tobacco: Never Alcohol Use [...] on file Legal Sex Male 9:38 AM PLANER TAILER Gender Identity Not on file Sexual Orientation Not on file 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 Not on file Not on file Retired Not on file Not on file Not on file documented as of this encounter Last Filed Vital Signs Vital Sign Reading Time Taken Comments Blood Pressure 117/69 12/07/2024 3:25 PM PLANER TAILER Pulse 55 12/07/2024 3:25 PM PLANER TAILER Temperature 36.4 C (97.5 F) 12/07/2024 3:25 PM PLANER TAILER Respiratory Rate 18 12/07/2024 3:25 PM PLANER TAILER Oxygen Saturation 98% 12/07/2024 3:25 PM PLANER TAILER Inhaled Oxygen Concentration - - Weight 127.1 kg (280 lb 3.2 oz) 025 12:16 PM PLANER TAILER w/shoes Height - - Body Mass Index 38.54 11/25/2024 9:14 AM PLANER TAILER documented in this encounter Nursing Notes * Deb Evans RN - 12/07/2024 12:00 PM CST Oncology Nursing Note Blood Product Administration [facility] Lucrecia Olson is a 74 y.o. male who presents for the following transfusion: Blood Pre-treatment Nursing Assessment Nursing Assessment LOC: Alert, Awake Constitutional: Fatigue Fatigue: Constant Any falls since your last visit?: No Orientation: Oriented x4 Behavior: Calm Speech: Clear Language: No aphasia Vision: At baseline Peripheral Neuropathy: Yes (unchanged) Oral Mucosa Grade: Normal (0) Shortness of Breath?: Yes Respiratory Effort Characteristics: Dyspnea exertion Appetite: Good Nausea/Vomiting: No Skin Condition/Temp: Warm, Dry, Other (Comment) (bruising) Swelling: Yes Swelling location: LLE, RLE BP: 100/69 Temp: 36.5 ??C (97.7 ??F) Temp src: Oral Pulse: 56 Resp: 18 SpO2: 98 % Weight: 127.1 kg (280 lb 3.2 oz) (w/shoes) Lab Result Lab Results Component Value Date WBC 4.4 12/07/2024 HGB 8.0 (L) 12/07/2024 HCT 27.2 (L) 12/07/2024 MCV 97.8 (H) 12/07/2024 LABPLAT 312 12/07/2024 Lab Results Component Value Date NEUTROABS 2.8 12/07/2024 Patient is within parameters for transfusion. Treatment Consent for transfusion: Active consent noted in patient chart. Prior transfusion reaction: No premedications ordered. Pre blood return: Brisk. Transfused patient with 1 unit PRBC per protocol. Marshall Olson tolerated transfusion. IV line flushed until clear and patient observed for 15 minutes post transfusion. Post blood return: Brisk. IV access post infusion: NS; IV discontinued per protocol. Patient Education Instructed on process and procedures related to today's visit including signs and symptoms of transfusion reaction. Response: Verbalizes understanding Discharge Plan Blood product transfusion discharge instructions given to patient. Future appointments given and reviewed with treatment plan. Discharge Mode: Ambulatory Accompanied by: Self Discharged To: Home ER TAILER documented in this encounter Plan of Treatment Upcoming Encounters Date Type Department Care Team (Latest Contact Info) Description 12/13/2024 11:00 AM PLANER TAILER Hospital Encounter [facility] [place] [id number] [address] Nikolay Dunn MD [address] [facility] [place] [address] Malignant neoplasm of lower third of esophagus (CMS/HCC) (HCC) 12/13/2024 11:00 AM PLANER TAILER - 12/13/2024 12:00 PM PLANER TAILER Surgery [facility] Replaced by [facility] [address] [address] Nikolay Dunn MD [address] [facility] [place] [address] EGD/EUS/EMR SC/OA/Interventiona l Scheduled Procedures Name Priority Associated Diagnoses Date/Ti me ESOPHAGOGASTRODUODENOSCOPY Malignant neoplasm of lower third of esophagus (CMS/HCC) (HCC) 12/13/2024 11:00 AM PLANER TAILER documented as of this encounter Procedures Procedure Name Priority Date/Time Associated Diagnosis Comments TRANSFUSE RED BLOOD CELLS Timed 12/07/2024 12:56 PM PLANER TAILER Anemia, unspecified type PREPARE RBC Routine 12/07/2024 10:02 AM PLANER TAILER Anemia, unspecified type documented in this encounter Results * Transfuse RBC (12/07/2024 3:27 PM PLANER TAILER) Blood Janiya Sierra MD BLOOD TRANSFUSION ORDERABLES Fin al Result * Transfuse RBC: 1 Units (12/07/2024 3:27 PM PLANER TAILER) Blood Janiya Sierra MD BLOOD TRANSFUSION ORDERABLES Fin al Result * Prepare RBC: 1 Units (12/07/2024 10:02 AM PLANER TAILER) Units requested 1 Comment:Testing performed by : [address] [address] Units requested Ready ISAAC Comment:Testing performed by : [address] [address] Unit Number [id number] Product code [id number] ISAAC Blood Expiration Date [id number] [facility] Product Blood Type (for scanning) [address] [facility] Product Blood Type APOS ISAAC Dispense Status DISPENSED ISAAC Blood 12/07/2024 10:0 2 AM PLANER TAILER 12/07/2024 10:01 AM PLANER TAILER Nena Cano NP BLOOD BANK PRODUCT ORDERABL ES Final Result [facility] [address] [place] [address] documented in this encounter Visit Diagnoses Diagnosis Malignant neoplasm of lower third of esophagus (CMS/HCC) (HCC) Malignant neoplasm of lower third of esophagus Anemia, unspecified type- Primary Malignant neoplasm of lower third of esophagus (CMS/HCC) (HCC) Malignant neoplasm of lower third of esophagus documented in this encounter Orders Medications Ordered That Juventino ht Not Have Been Administered Count Last Ordered Date First Ordered Date sodium chloride 0.9% infusion 1 12/07/2024 Nursing Count Last Ordered Date First Orde red Date ONCBCN NURSING COMMUNICATION [id number] 0 12/07/2024 VITAL SIGNS 1 12/07/2024 Appointment Requests Count Last Ordered Date Fi rst Ordered Date ONCBCN BLOOD TRANSFUSION APPT 1 12/07/2024 documented in this encounter Care Teams Field Recruiter Relationship Specialty Start Date End Date Jas Alcala MD PCP - General Internal Medicine 02/26/18 Lucio Rosas MD [address] [facility] [address] [address] Consulting Physician Gastroenterology 11/28/24 Bianca Hunter MD [address] [place] [address] Medical Oncologist/Police Communications Operator Medical Oncology 12/07/24 documented as of this encounter
--- OUTSIDE RECORDS SUMMARY | 2024-12-07 16:21 | XMS_ITS | Data Portability ---
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 X-rays were unremarkable for any fractures scaphoid looks good. Minor osteoarthritis is noted at the 1st CMC joint left wrist. Talked about treatment options today in detail his pain seems to be originating from the 1st CMC joint he wanted proceed with cortisone therefore under sterile conditions I injected the patient's left thumb CMC joint in the office with 2 cc 0.5% bupivacaine and 10 mg of Kenalog. Patient tolerated procedure well. We will do a course of oral prednisone also will see him back in a month if his symptoms continue we will talk further. He voiced understanding agrees above plan will call for any further problems difficulties or questions. [email or web address] Not available 09/29/2023 11:25:03 11/09/2023 11/09/2023 Continue Coumadi n at same dose recheck in a month he needs a colonoscopy just had a CT scan with his urologist of the abdomen and pelvis we will try to get that result [email or web address] Not available 11/09/2023 21:20:45 Plan of Treatment Reminders Order Date Submit Date Provider Last Modified By Organization Details Last Modified Time Details Appointments None recorded. Lab PT/INR 2022 023 [email or web address] [facility] [address], [address], [place], [address], 3 11:40:20 PSA, serum or plasma 2022 023 [facility] (Lab), [address] [facility] [place], [address], 3 04:11:09 urinalysis, dipstick 2022 023 [email or web address] [facility] [place], [address] [facility], [address], [place], [address], 3 11:47:31 lipid panel, serum 2022 023 [facility] (Lab), [address] [place], [address], 3 19:23:51 CBC w/ auto diff 2022 023 [facility] (Lab), [address] [place], [address], 3 18:15:09 CMP, serum or plasma 2022 023 [facility] (Lab), [address] [place], [address], 3 19:23:45 PT/INR 2023 024 [facility] [address], [address], [place], [address], 4 17:00:45 CBC w/ auto diff 2023 024 [facility] (Lab), [address] [place], [address], 4 18:14:03 lipid panel, serum 2023 024 [facility] (Lab), [address] [place], [address], 4 19:14:27 CMP, serum or plasma 2023 024 [facility] (Lab), [address] [place], [address], 4 19:14:32 Referral None recorded. Procedures injection/a spiration joint/bursa (PROC) 2022 023 [email or web address] In-Office Order, Internal Use Only DO Not Attach Compendium DO Not Attach Compendium, Do Not Delete/merge, [id number] 3 11:05:49 colonoscopy screening (PROC) 2023 024 [email or web address] Dinah Paz MD, [address] [facility], [facility] [address], [address], 4 09:01:32 Surgeries None recorded. Imaging US, bladder 2022 023 [email or web address] [facility] [place], [address] [facility], [address], [place], [address], 3 11:47:49 XR, wrist 2022 023 [email or web address] [facility] [place], [address] [place] [address], [place], [address], 3 11:41:42 Medication Orders bupivacaine HCl 0.5 % (5 mg/mL) injection solution 2022 023 [email or web address] [id number], [address] [place], [address], 3 11:41:42 Kenalog 10 mg/mL suspension for injection 2022 023 [email or web address] [id number], [address] [place], [address], 11:41:42 prednisone 10 mg tablets in a dose pack 2022 023 [email or web address] [id number], [address] [place], [address], 11:41:42 Patient TargetsNo targets recorded. Patient InstructionsNo instructions recorded. Reason for Referral None Reported. Results Created Date Observation Date Name Description Value Unit Range Abnormal Flag Note LastModifiedBy Organization Detail LastModifiedTime 04/22/20 23 04/22/2023 PT/IN R PT 22.1 Not Available [facility] [address], [place], [address], 04/22/2023 15:37:32 04/22/20 23 04/22/2023 PT/IN R INR 1.8 Not Available [facility] [address], [place], [address], 04/22/2023 15:37:32 05/06/20 23 05/06/2023 PT/IN R PT 27.2 Not Available [facility] [address], [place], [address], 05/06/2023 10:56:39 05/06/20 23 05/06/2023 PT/IN R INR 2.3 Not Available [facility] [address], [place], [address], 05/06/2023 10:56:39 05/13/2005/13/2023 urina lysis , dipst ick Leukocytes (reference range: negative kenn/ l) Negati ve Not Available [address], [address], 05/13/2023 10:12:04 05/13/20 23 05/13/2023 urina lysis , dipst ick Nitrite (reference rage: negative mg/dl) negati ve Not Available [address], [address], 05/13/2023 10:12:04 05/13/20 23 05/13/2023 urina lysis , dipst ick Urobilinogen (reference range: 0.2-1 mg/dl) 0.2 Not Available [address], [address], 05/13/2023 10:12:04 05/13/2005/13/2023 urina lysis , dipst ick Protein (reference range: negative mg/dl) Negati ve Not Available [address], [address], 05/13/2023 10:12:04 05/13/20 23 05/13/2023 urina lysis , dipst ick pH (reference range: 5-7) 5.5 Not Available [address], [address], 05/13/2023 10:12:04 05/13/20 23 05/13/2023 urina lysis , dipst ick Blood (reference range: negative Jose G/ l) Negati ve Not Available [address] [place], [address], 05/13/2023 10:12:04 05/13/20 23 05/13/2023 urina lysis , dipst ick Specific [place] (reference range: 1.005-1.030) 1.020 Not Available [address], [address], 05/13/2023 10:12:04 05/13/20 23 05/13/2023 urina lysis , dipst ick Ketone (reference range: negative mg/dl) Negati ve Not Available [address] [address], [place], [address], 05/13/2023 10:12:04 05/13/20 23 05/13/2023 urina lysis , dipst ick Bilirubin (reference range: negative mg/dl) Negati ve Not Available [address], [address], 05/13/2023 10:12:04 05/13/20 23 05/13/2023 urina lysis , dipst ick Glucose (reference range: negative mg/dl) Negati ve Not Available [address], [address], 05/13/2023 10:12:04 05/13/20 23 05/13/2023 urina lysis , dipst ick Appearance Clear Not Available [address], [address], 05/13/2023 10:12:04 05/13/20 23 05/13/2023 urina lysis , dipst ick Color Yellow Not Available [address] [address], [place], [address], 05/13/2023 10:12:04 06/04/20 23 06/04/2023 PT/IN R PT 45.5 Not Available [facility] [address], [place], [address], 06/04/2023 15:19:31 06/04/20 23 06/04/2023 PT/IN R INR 3.8 Not Available [facility] [address], [place], [address], 06/04/2023 15:19:31 06/17/20 23 06/17/2023 PT/IN R PT 21.7 Not Available [facility] [address], [place], [address], 06/17/2023 12:16:46 06/17/20 23 06/17/2023 PT/IN R INR 1.8 Not Available [facility] [address], [place], [address], 06/17/2023 12:16:46 07/01/20 23 07/01/2023 PT/IN R PT 43.4 Not Available [facility] [address], [place], [address], 07/01/2023 15:59:45 07/01/20 23 07/01/2023 PT/IN R INR 3.6 Not Available [facility] [address], [place], [address], 07/01/2023 15:59:45 07/15/20 23 07/15/2023 PT/IN R PT 31.1 Not Available [facility] [address], [place], [address], 07/15/2023 12:32:43 07/15/2007/15/2023 PT/IN R INR 2.[address] [facility] [address], [place], [address], 07/15/2023 12:32:43 08/04/2008/04/2023 CBC/C OMPLE TE BLD COUNT W/DIF F white blood cells 6.0 x10'3 /uL 4.2-10 .8 Not Available [facility] (Lab) [address] [place], [address], 08/04/2023 18:15:09 08/04/2008/04/2023 CBC/C OMPLE TE BLD COUNT W/DIF F red blood cells 4.69 x10'6 /uL 4.10-5 .80 Not Available [facility] (Lab) [address] [place], [address], 08/04/2023 18:15:09 08/04/2008/04/2023 CBC/C OMPLE TE BLD COUNT W/DIF F hemoglobin 13.5 g/dL 13.2-1 7.0 Not Available [facility] (Lab) [address] [place], [address], 08/04/2023 18:15:09 08/04/2008/04/2023 CBC/C OMPLE TE BLD COUNT W/DIF F hematocrit 42.7 % 39.3-5 0.0 Not Available [facility] (Lab) [address] [place], [address], 08/04/2023 18:15:09 08/04/2008/04/2023 CBC/C OMPLE TE BLD COUNT W/DIF F mean red cell volume 91.0 fL 80.0-9 7.0 Not Available [facility] (Lab) [address] [place], [address], 08/04/2023 18:15:09 08/04/2008/04/2023 CBC/C OMPLE TE BLD COUNT W/DIF F mean red cell hemoglobin 28.8 pg 27.0-3 3.0 Not Available [facility] (Lab) [address] [place], [address], 08/04/2023 18:15:09 08/04/2008/04/2023 CBC/C OMPLE TE BLD COUNT W/DIF F mean RBC HGB concentratio n 31.6 g/dL 31.0-3 6.0 Not Available [facility] (Lab) [address] [place], [address], 08/04/2023 18:15:09 08/04/2008/04/2023 CBC/C OMPLE TE BLD COUNT W/DIF F red cell distribution width 15.9 % 11.8-1 5.5 high Not Available [facility] (Lab) [address] [facility] [place], [address], 08/04/2023 18:15:09 08/04/20 23 08/04/2023 CBC/C OMPLE TE BLD COUNT W/DIF F platelets 282 x10'3 /uL 150-40 0 Not Available [facility] (Lab) [address] [place], [address], 08/04/2023 18:15:09 08/04/2008/04/2023 CBC/C OMPLE TE BLD COUNT W/DIF F mean platelet volume 9.2 fL 9.0-12 .4 Not Available [facility] (Lab) [address] [place], [address], 08/04/2023 18:15:09 08/04/20 23 08/04/2023 CBC/C OMPLE TE BLD COUNT W/DIF F neutrophils 50.4 % 39.0-7 2.0 Not Available [facility] (Lab) [address] [place], [address], 08/04/2023 18:15:09 08/04/2008/04/2023 CBC/C OMPLE TE BLD COUNT W/DIF F lymphocytes 21.0 % 16.0-4 7.0 Not Available [facility] (Lab) [address] [place], [address], 08/04/2023 18:15:09 08/04/2008/04/2023 CBC/C OMPLE TE BLD COUNT W/DIF F monocytes 12.3 % 5.0-12 .0 high Not Available [facility] (Lab) [address] [place], [address], 08/04/2023 18:15:09 08/04/2008/04/2023 CBC/C OMPLE TE BLD COUNT W/DIF F eosinophils 14.6 % 1.0-7. 0 high Not Available [facility] (Lab) [address] [place], [address], 08/04/2023 18:15:09 08/04/2008/04/2023 CBC/C OMPLE TE BLD COUNT W/DIF F basophils 1.2 % 0.0-2. 0 Not Available [facility] (Lab) [address] [place], [address], 08/04/2023 18:15:09 08/04/2008/04/2023 CBC/C OMPLE TE BLD COUNT W/DIF F immature granulocytes 0.5 % 0.00-0 .50 Not Available [facility] (Lab) [address] [place], [address], 08/04/2023 18:15:09 08/04/2008/04/2023 CBC/C OMPLE TE BLD COUNT W/DIF F neutrophils, absolute count 3.03 x10'3 /uL 1.5-8. 0 Not Available [facility] (Lab) [address] [place], [address], 08/04/2023 18:15:09 08/04/2008/04/2023 CBC/C OMPLE TE BLD COUNT W/DIF F lymphocytes, absolute count 1.26 x10'3 /uL 1.07-3 .43 Not Available [facility] (Lab) [address] [place], [address], 08/04/2023 18:15:09 08/04/2008/04/2023 CBC/C OMPLE TE BLD COUNT W/DIF F monocytes, absolute count 0.74 x10'3 /uL 0.29-0 .99 Not Available [facility] (Lab) [address] [place], [address], 08/04/2023 18:15:09 08/04/2008/04/2023 CBC/C OMPLE TE BLD COUNT W/DIF F eosinophils, absolute count 0.88 x10'3 /uL 0.02-0 .53 high Not Available [facility] (Lab) [address] [place], [address], 08/04/2023 18:15:09 08/04/2008/04/2023 CBC/C OMPLE TE BLD COUNT W/DIF F basophils, absolute count 0.07 x10'3 /uL 0.01-0 .08 Not Available [facility] (Lab) [address] [place], [address], 08/04/2023 18:15:09 08/04/2008/04/2023 CBC/C OMPLE TE BLD COUNT W/DIF F immature granulocytes ,absolute 0.03 x10'3 /uL 0.00-0 .05 Not Available [facility] (Lab) [address] [place], [address], 08/04/2023 18:15:09 08/04/20 23 08/04/2023 CBC/C OMPLE TE BLD COUNT W/DIF F nucleated red blood cells 0.0 % -0 Not Available [facility] (Lab) [address] [place], [address], 08/04/2023 18:15:09 08/04/20 23 08/04/2023 CBC/C OMPLE TE BLD COUNT W/DIF F NRBC# 0.00 x10'3 /uL Not Available [facility] (Lab) [address] [place], [address], 08/04/2023 18:15:09 08/04/2008/04/2023 COMPR EHENS SHYAM METAB OLIC PANEL sodium 139 mmol/ L 137-14 5 Not Available [facility] (Lab) [address] [place], [address], 08/04/2023 19:23:45 08/04/20 23 08/04/2023 COMPR EHENS SHYAM METAB OLIC PANEL potassium 4.8 mmol/ L 3.5-5. 1 Not Available [facility] (Lab) [address] [place], [address], 08/04/2023 19:23:45 08/04/20 23 08/04/2023 COMPR EHENS SHYAM METAB OLIC PANEL chloride 102 mmol/ L 98-107 Not Available [facility] (Lab) [address] [place], [address], 08/04/2023 19:23:45 08/04/20 23 08/04/2023 COMPR EHENS SHYAM METAB OLIC PANEL carbon dioxide 28 mmol/ L 22-30 Not Available [facility] (Lab) [address] [place], [address], 08/04/2023 19:23:45 08/04/20 23 08/04/2023 COMPR EHENS SHYAM METAB OLIC PANEL anion gap 13.8 mmol/ L 14-22 low Not Available [facility] (Lab) [address] [place], [address], 08/04/2023 19:23:45 08/04/20 23 08/04/2023 COMPR EHENS SHYAM METAB OLIC PANEL glucose 86 mg/dL 70-99 Not Available [facility] (Lab) [address] [place], [address], 08/04/2023 19:23:45 08/04/20 23 08/04/2023 COMPR EHENS SHYAM METAB OLIC PANEL BUN 24 mg/dL 8-19 high Not Available [facility] (Lab) [address] [place], [address], 08/04/2023 19:23:45 08/04/20 23 08/04/2023 COMPR EHENS SHYAM METAB OLIC PANEL creatinine 1.61 mg/dL 0.66-1 .25 high Not Available [facility] (Lab) [address] [place], [address], 08/04/2023 19:23:45 08/04/2008/04/2023 COMPR EHENS SHYAM METAB OLIC PANEL GFR 42 Refer ence Range : [place] ge GFR Healt hy Adult : >60 mL/mi n/1.7 3 m2 Chron ic Kidne y Disea se: 15-60 mL/mi n/1.7 3 m2 Kidne y Failu re: <15/m L/min /1.73 m2 www.n iddk. nih.g ov The MDRD study equat ion has not been valid ated in child eugenie <18 years of age; pregn ant women ; the elder ly >85 years of age; or in some racia l or ethni c subgr oups, such as Hispa nics. Outsi de the valid ated danay eters , estim ated GFR is less accur ate, requi ring clini will judgm ent on a case- by-ca se basis . Clini will inter preta tion for other races and ages must be made by the clini bienvenido. The MDRD study equat ion has not been valid ated for the evalu ation of serum creat inine relat ed to nutri ezra l statu s or medic ation usage . For perso ns <18 years of age, a pedia tric GFR calcu lator is avail able on the [facility] websi te: https ://caprice w.bev quirogay.o rg/pr ofess ional s/kdo qi/gf r_cal culat or Not Available [facility] (Lab) [address] [place], [address], 08/04/2023 19:23:45 08/04/2008/04/2023 COMPR EHENS SHYAM METAB OLIC PANEL alkaline phosphatase 91 U/L 38-126 Not Available [facility] (Lab) [address] [place], [address], 08/04/2023 19:23:45 08/04/2008/04/2023 COMPR EHENS SHYAM METAB OLIC PANEL alanine aminotransfe rase 17 U/L 0-50 Not Available [facility] (Lab) [address] [place], [address], 08/04/2023 19:23:45 08/04/20 23 08/04/2023 COMPR EHENS SHYAM METAB OLIC PANEL aspartate aminotransfe rase 26 U/L 15-46 Not Available [facility] (Lab) [address] [place], [address], 08/04/2023 19:23:45 08/04/2008/04/2023 COMPR EHENS SHYAM METAB OLIC PANEL bilirubin, total 0.50 mg/dL 0.20-1 .30 Not Available [facility] (Lab) [address] [place], [address], 08/04/2023 19:23:45 08/04/20 23 08/04/2023 COMPR EHENS SHYAM METAB OLIC PANEL calcium 9.6 mg/dL 8.4-10 .2 Not Available [facility] (Lab) [address] [place], [address], 08/04/2023 19:23:45 08/04/20 23 08/04/2023 COMPR EHENS SHYAM METAB OLIC PANEL total protein 7.4 g/dL 6.3-8. 2 Not Available [facility] (Lab) [address] [place], [address], 08/04/2023 19:23:45 08/04/2008/04/2023 COMPR EHENS SHYAM METAB OLIC PANEL albumin 4.2 g/dL 3.0-4. 4 Not Available [facility] (Lab) [address] [place], [address], 08/04/2023 19:23:45 08/04/2008/04/2023 COMPR EHENS SHYAM METAB OLIC PANEL globulin 3.2 g/dL 2.6-4. 2 Not Available [facility] (Lab) [address] [place], [address], 08/04/2023 19:23:45 08/04/2008/04/2023 COMPR EHENS SHYAM METAB OLIC PANEL A/G ratio 1.3 ratio 1.0-2. 0 Not Available [facility] (Lab) [address] [place], [address], 08/04/2023 19:23:45 08/04/2008/04/2023 LIPID PANEL cholesterol 213 mg/dL 140-19 9 high NIH AYO NSUS RECOM MENDA TION FOR FAISAL STERO L: ADULT CHILD LOW RISK: <200 <170 BORDE RLINE : <200- 239 ----- HIGH RISK: >240 >200 Not Available [facility] (Lab) [address] [place], [address], 08/04/2023 19:23:51 08/04/2008/04/2023 LIPID PANEL triglyceride s 171 mg/dL 0-150 high NIH AYO NSUS REPOR T RECOM MENDA TION FOR TRIGL YCERI JARVIS: ADULT CHILD LOW RISK: <150 ----- BODER LINE: 150-1 99 ----- HIGH RISK: >200 ----- Not Available [facility] (Lab) [address] [place], [address], 08/04/2023 19:23:51 08/04/2008/04/2023 LIPID PANEL HDL cholesterol 58 mg/dL 40- Not Available [facility] (Lab) [address] [place], [address], 08/04/2023 19:23:51 08/04/2008/04/2023 LIPID PANEL LDL cholesterol, calculated 121 mg/dL 0-130 NIH AYO NSUS REPOR T RECOM MENDA TIONS FOR LDL: ADULT CHILD LOW RISK <130 <110 (OPTI MAL LDL) <100 ----- TRANG RLINE : 130-1 59 ----- HIGH RISK: >160 >130 A TRIGL YCERI DE RESUL T >400 INVAL IDATE S THE CALCU LATIO N FOR LDL FRACT IONAT ION - THE LDL RESUL T WILL NOT BE REPOR MYRTLE. Not Available [facility] (Lab) [address] [place], [address], 08/04/2023 19:23:51 08/04/2008/05/2023 PSA, TOTAL PSA, total <0.064 NG/mL 0.00-4 .00 Not Available [facility] (Lab) [address] [place], [address], 08/05/2023 19:37:51 09/01/2009/01/2023 CBC/C OMPLE TE BLD COUNT W/DIF F white blood cells 5.8 x10'3 /uL 4.2-10 .8 Not Available [facility] (Lab) [address] [place], [address], 09/01/2023 16:47:48 09/01/2009/01/2023 CBC/C OMPLE TE BLD COUNT W/DIF F red blood cells 4.53 x10'6 /uL 4.10-5 .80 Not Available [facility] (Lab) [address] [place], [address], 09/01/2023 16:47:48 09/01/2009/01/2023 CBC/C OMPLE TE BLD COUNT W/DIF F hemoglobin 13.2 g/dL 13.2-1 7.0 Not Available [facility] (Lab) [address] [place], [address], 09/01/2023 16:47:48 09/01/2009/01/2023 CBC/C OMPLE TE BLD COUNT W/DIF F hematocrit 42.0 % 39.3-5 0.0 Not Available [facility] (Lab) [address] [place], [address], 09/01/2023 16:47:48 09/01/2009/01/2023 CBC/C OMPLE TE BLD COUNT W/DIF F mean red cell volume 92.7 fL 80.0-9 7.0 Not Available [facility] (Lab) [address] [place], [address], 09/01/2023 16:47:48 09/01/2009/01/2023 CBC/C OMPLE TE BLD COUNT W/DIF F mean red cell hemoglobin 29.1 pg 27.0-3 3.0 Not Available [facility] (Lab) [address] [place], [address], 09/01/2023 16:47:48 09/01/2009/01/2023 CBC/C OMPLE TE BLD COUNT W/DIF F mean RBC HGB concentratio n 31.4 g/dL 31.0-3 6.0 Not Available [facility] (Lab) [address] [place], [address], 09/01/2023 16:47:48 09/01/2009/01/2023 CBC/C OMPLE TE BLD COUNT W/DIF F red cell distribution width 15.6 % 11.8-1 5.5 high Not Available [facility] (Lab) [address] [place], [address], 09/01/2023 16:47:48 09/01/2009/01/2023 CBC/C OMPLE TE BLD COUNT W/DIF F platelets 315 x10'3 /uL 150-40 0 Not Available [facility] (Lab) [address] [place], [address], 09/01/2023 16:47:48 09/01/2009/01/2023 CBC/C OMPLE TE BLD COUNT W/DIF F mean platelet volume 8.8 fL 9.0-12 .4 low Not Available [facility] (Lab) [address] [place], [address], 09/01/2023 16:47:48 09/01/2009/01/2023 CBC/C OMPLE TE BLD COUNT W/DIF F neutrophils 54.1 % 39.0-7 2.0 Not Available [facility] (Lab) [address] [place], [address], 09/01/2023 16:47:48 09/01/2009/01/2023 CBC/C OMPLE TE BLD COUNT W/DIF F lymphocytes 19.7 % 16.0-4 7.0 Not Available [facility] (Lab) [address] [place], [address], 09/01/2023 16:47:48 09/01/20 23 09/01/2023 CBC/C OMPLE TE BLD COUNT W/DIF F monocytes 14.1 % 5.0-12 .0 high Not Available [facility] (Lab) [address] [place], [address], 09/01/2023 16:47:48 09/01/2009/01/2023 CBC/C OMPLE TE BLD COUNT W/DIF F eosinophils 10.0 % 1.0-7. 0 high Not Available [facility] (Lab) [address] [place], [address], 09/01/2023 16:47:48 09/01/2009/01/2023 CBC/C OMPLE TE BLD COUNT W/DIF F basophils 1.4 % 0.0-2. 0 Not Available [facility] (Lab) [address] [place], [address], 09/01/2023 16:47:48 09/01/2009/01/2023 CBC/C OMPLE TE BLD COUNT W/DIF F immature granulocytes 0.7 % 0.00-0 .50 high Not Available [facility] (Lab) [address] [place], [address], 09/01/2023 16:47:48 09/01/2009/01/2023 CBC/C OMPLE TE BLD COUNT W/DIF F neutrophils, absolute count 3.14 x10'3 /uL 1.5-8. 0 Not Available [facility] (Lab) [address] [place], [address], 09/01/2023 16:47:48 09/01/2009/01/2023 CBC/C OMPLE TE BLD COUNT W/DIF F lymphocytes, absolute count 1.14 x10'3 /uL 1.07-3 .43 Not Available [facility] (Lab) [address] [place], [address], 09/01/2023 16:47:48 09/01/2009/01/2023 CBC/C OMPLE TE BLD COUNT W/DIF F monocytes, absolute count 0.82 x10'3 /uL 0.29-0 .99 Not Available [facility] (Lab) [address] [place], [address], 09/01/2023 16:47:48 09/01/2009/01/2023 CBC/C OMPLE TE BLD COUNT W/DIF F eosinophils, absolute count 0.58 x10'3 /uL 0.02-0 .53 high Not Available [facility] (Lab) [address] [place], [address], 09/01/2023 16:47:48 09/01/2009/01/2023 CBC/C OMPLE TE BLD COUNT W/DIF F basophils, absolute count 0.08 x10'3 /uL 0.01-0 .08 Not Available [facility] (Lab) [address] [place], [address], 09/01/2023 16:47:48 09/01/2009/01/2023 CBC/C OMPLE TE BLD COUNT W/DIF F immature granulocytes ,absolute 0.04 x10'3 /uL 0.00-0 .05 Not Available [facility] (Lab) [address] [place], [address], 09/01/2023 16:47:48 09/01/2009/01/2023 CBC/C OMPLE TE BLD COUNT W/DIF F nucleated red blood cells 0.0 % -0 Not Available [facility] (Lab) [address] [place], [address], 09/01/2023 16:47:48 09/01/2009/01/2023 CBC/C OMPLE TE BLD COUNT W/DIF F NRBC# 0.00 x10'3 /uL Not Available [facility] (Lab) [address] [place], [address], 09/01/2023 16:47:48 09/01/2009/01/2023 BASIC METAB OLIC PANEL sodium 139 mmol/ L 137-14 5 Not Available [facility] (Lab) [address] [place], [address], 09/01/2023 18:00:43 09/01/2009/01/2023 BASIC METAB OLIC PANEL potassium 4.7 mmol/ L 3.5-5. 1 Not Available [facility] (Lab) [address] [place], [address], 09/01/2023 18:00:43 09/01/2009/01/2023 BASIC METAB OLIC PANEL chloride 106 mmol/ L 98-107 Not Available [facility] (Lab) [address] [place], [address], 09/01/2023 18:00:43 09/01/2009/01/2023 BASIC METAB OLIC PANEL carbon dioxide 29 mmol/ L 22-30 Not Available [facility] (Lab) [address] [place], [address], 09/01/2023 18:00:43 09/01/2009/01/2023 BASIC METAB OLIC PANEL anion gap 8.7 mmol/ L 14-22 low Not Available [facility] (Lab) [address] [place], [address], 09/01/2023 18:00:43 09/01/2009/01/2023 BASIC METAB OLIC PANEL glucose 77 mg/dL 70-99 Not Available [facility] (Lab) [address] [place], [address], 09/01/2023 18:00:43 09/01/2009/01/2023 BASIC METAB OLIC PANEL BUN 18 mg/dL 8-19 Not Available [facility] (Lab) [address] [place], [address], 09/01/2023 18:00:43 09/01/2009/01/2023 BASIC METAB OLIC PANEL creatinine 1.70 mg/dL 0.66-1 .25 high Not Available [facility] (Lab) [address] [place], [address], 09/01/2023 18:00:43 09/01/2009/01/2023 BASIC METAB OLIC PANEL GFR 40 Refer ence Range : [place] ge GFR Healt hy Adult : >60 mL/mi n/1.7 3 m2 Chron ic Kidne y Disea se: 15-60 mL/mi n/1.7 3 m2 Kidne y Failu re: <15/m L/min /1.73 m2 www.n iddk. nih.g ov The MDRD study equat ion has not been valid ated in child eugenie <18 years of age; pregn ant women ; the elder ly >85 years of age; or in some racia l or ethni c subgr oups, such as Hispa nics. Outsi de the valid ated danay eters , estim ated GFR is less accur ate, requi ring clini will judgm ent on a case- by-ca se basis . Clini will inter preta tion for other races and ages must be made by the clini bienvenido. The MDRD study equat ion has not been valid ated for the evalu ation of serum creat inine relat ed to nutri ezra l statu s or medic ation usage . For perso ns <18 years of age, a pedia tric GFR calcu lator is avail able on the [facility] websi te: https ://caprice w.bev johnson.o rg/pr sigridess ional s/kdo qi/gf r_cal culat or Not Available [facility] (Lab) [address] [place], [address], 09/01/2023 18:00:43 09/01/2009/01/2023 BASIC METAB OLIC PANEL calcium 9.2 mg/dL 8.4-10 .2 Not Available [facility] (Lab) [address] [place], [address], 09/01/2023 18:00:43 09/01/20 23 09/01/2023 PT/IN R PT 54.[address] [facility] Internal Med [facility] [address], [place], [address], 09/01/2023 14:17:57 09/01/20 23 09/01/2023 PT/IN R INR 4.5 Not Available [facility] Internal Med [facility] [address], [place], [address], 09/01/2023 14:17:57 10/07/20 23 10/07/2023 PT/IN R PT 32.[address] [facility] Internal Med [facility] [address], [place], [address], 10/07/2023 10:19:26 10/07/20 23 10/07/2023 PT/IN R INR 2.[address] [facility] Internal Med [facility] [address], [place], [address], 10/07/2023 10:19:26 11/09/19 24 11/09/2023 CBC/C OMPLE TE BLD COUNT W/DIF F white blood cells 5.5 x10'3 /uL 4.2-10 .8 Not Available [facility] (Lab) [address] [place], [address], 11/09/2023 18:14:03 11/09/19 24 11/09/2023 CBC/C OMPLE TE BLD COUNT W/DIF F red blood cells 4.47 x10'6 /uL 4.10-5 .80 Not Available [facility] (Lab) [address] [place], [address], 11/09/2023 18:14:03 11/09/19 24 11/09/2023 CBC/C OMPLE TE BLD COUNT W/DIF F hemoglobin 13.0 g/dL 13.2-1 7.0 low Not Available [facility] (Lab) [address] [place], [address], 11/09/2023 18:14:03 11/09/19 24 11/09/2023 CBC/C OMPLE TE BLD COUNT W/DIF F hematocrit 41.4 % 39.3-5 0.0 Not Available [facility] (Lab) [address] [place], [address], 11/09/2023 18:14:03 11/09/19 24 11/09/2023 CBC/C OMPLE TE BLD COUNT W/DIF F mean red cell volume 92.6 fL 80.0-9 7.0 Not Available [facility] (Lab) [address] [place], [address], 11/09/2023 18:14:03 11/09/19 24 11/09/2023 CBC/C OMPLE TE BLD COUNT W/DIF F mean red cell hemoglobin 29.1 pg 27.0-3 3.0 Not Available [facility] (Lab) [address] [place], [address], 11/09/2023 18:14:03 11/09/19 24 11/09/2023 CBC/C OMPLE TE BLD COUNT W/DIF F mean RBC HGB concentratio n 31.4 g/dL 31.0-3 6.0 Not Available [facility] (Lab) [address] [place], [address], 11/09/2023 18:14:03 11/09/19 24 11/09/2023 CBC/C OMPLE TE BLD COUNT W/DIF F red cell distribution width 16.0 % 11.8-1 5.5 high Not Available [facility] (Lab) [address] [place], [address], 11/09/2023 18:14:03 11/09/19 24 11/09/2023 CBC/C OMPLE TE BLD COUNT W/DIF F platelets 257 x10'3 /uL 150-40 0 Not Available [facility] (Lab) [address] [place], [address], 11/09/2023 18:14:03 11/09/19 24 11/09/2023 CBC/C OMPLE TE BLD COUNT W/DIF F mean platelet volume 8.8 fL 9.0-12 .4 low Not Available [facility] (Lab) [address] [place], [address], 11/09/2023 18:14:03 11/09/19 24 11/09/2023 CBC/C OMPLE TE BLD COUNT W/DIF F neutrophils 51.5 % 39.0-7 2.0 Not Available [facility] (Lab) [address] [place], [address], 11/09/2023 18:14:03 11/09/19 24 11/09/2023 CBC/C OMPLE TE BLD COUNT W/DIF F lymphocytes 22.0 % 16.0-4 7.0 Not Available [facility] (Lab) [address] [place], [address], 11/09/2023 18:14:03 11/09/19 24 11/09/2023 CBC/C OMPLE TE BLD COUNT W/DIF F monocytes 10.8 % 5.0-12 .0 Not Available [facility] (Lab) [address] [place], [address], 11/09/2023 18:14:03 11/09/19 24 11/09/2023 CBC/C OMPLE TE BLD COUNT W/DIF F eosinophils 13.9 % 1.0-7. 0 high Not Available [facility] (Lab) [address] [place], [address], 11/09/2023 18:14:03 11/09/19 24 11/09/2023 CBC/C OMPLE TE BLD COUNT W/DIF F basophils 1.4 % 0.0-2. 0 Not Available [facility] (Lab) [address] [place], [address], 11/09/2023 18:14:03 11/09/19 24 11/09/2023 CBC/C OMPLE TE BLD COUNT W/DIF F immature granulocytes 0.4 % 0.00-0 .50 Not Available [facility] (Lab) [address] [place], [address], 11/09/2023 18:14:03 11/09/19 24 11/09/2023 CBC/C OMPLE TE BLD COUNT W/DIF F neutrophils, absolute count 2.85 x10'3 /uL 1.5-8. 0 Not Available [facility] (Lab) [address] [place], [address], 11/09/2023 18:14:03 11/09/19 24 11/09/2023 CBC/C OMPLE TE BLD COUNT W/DIF F lymphocytes, absolute count 1.22 x10'3 /uL 1.07-3 .43 Not Available [facility] (Lab) [address] [place], [address], 11/09/2023 18:14:03 11/09/19 24 11/09/2023 CBC/C OMPLE TE BLD COUNT W/DIF F monocytes, absolute count 0.60 x10'3 /uL 0.29-0 .99 Not Available [facility] (Lab) [address] [place], [address], 11/09/2023 18:14:03 11/09/19 24 11/09/2023 CBC/C OMPLE TE BLD COUNT W/DIF F eosinophils, absolute count 0.77 x10'3 /uL 0.02-0 .53 high Not Available [facility] (Lab) [address] [place], [address], 11/09/2023 18:14:03 11/09/19 24 11/09/2023 CBC/C OMPLE TE BLD COUNT W/DIF F basophils, absolute count 0.08 x10'3 /uL 0.01-0 .08 Not Available [facility] (Lab) [address] [place], [address], 11/09/2023 18:14:03 11/09/19 24 11/09/2023 CBC/C OMPLE TE BLD COUNT W/DIF F immature granulocytes ,absolute 0.02 x10'3 /uL 0.00-0 .05 Not Available [facility] (Lab) [address] [place], [address], 11/09/2023 18:14:03 11/09/19 24 11/09/2023 CBC/C OMPLE TE BLD COUNT W/DIF F nucleated red blood cells 0.0 % -0 Not Available [facility] (Lab) [address] [place], [address], 11/09/2023 18:14:03 11/09/19 24 11/09/2023 CBC/C OMPLE TE BLD COUNT W/DIF F NRBC# 0.00 x10'3 /uL Not Available [facility] (Lab) [address] [place], [address], 11/09/2023 18:14:03 11/09/19 24 11/09/2023 LIPID PANEL cholesterol 132 mg/dL 140-19 9 low NIH AYO NSUS RECOM MENDA TION FOR FAISAL STERO L: ADULT CHILD LOW RISK: <200 <170 BORDE RLINE : <200- 239 ----- HIGH RISK: >240 >200 Not Available [facility] (Lab) [address] [place], [address], 11/09/2023 19:14:27 11/09/19 24 11/09/2023 LIPID PANEL triglyceride s 92 mg/dL 0-150 NIH AYO NSUS REPOR T RECOM MENDA TION FOR TRIGL YCERI JARVIS: ADULT CHILD LOW RISK: <150 ----- BODER LINE: 150-1 99 ----- HIGH RISK: >200 ----- Not Available [facility] (Lab) [address] [place], [address], 11/09/2023 19:14:27 11/09/19 24 11/09/2023 LIPID PANEL HDL cholesterol 66 mg/dL 40- Not Available [facility] (Lab) [address] [place], [address], 11/09/2023 19:14:27 11/09/19 24 11/09/2023 LIPID PANEL LDL cholesterol, calculated 48 mg/dL 0-130 NIH AYO NSUS REPOR T RECOM MENDA TIONS FOR LDL: ADULT CHILD LOW RISK <130 <110 (OPTI MAL LDL) <100 ----- TRANG RLINE : 130-1 59 ----- HIGH RISK: >160 >130 A TRIGL YCERI DE RESUL T >400 INVAL IDATE S THE CALCU LATIO N FOR LDL FRACT IONAT ION - THE LDL RESUL T WILL NOT BE REPOR MYRTLE. Not Available [facility] (Lab) [address] [place], [address], 11/09/2023 19:14:27 11/09/19 24 11/09/2023 COMPR EHENS SHYAM METAB OLIC PANEL sodium 139 mmol/ L 137-14 5 Not Available [facility] (Lab) [address] [place], [address], 11/09/2023 19:14:32 11/09/19 24 11/09/2023 COMPR EHENS SHYAM METAB OLIC PANEL potassium 4.5 mmol/ L 3.5-5. 1 Not Available [facility] (Lab) [address] [place], [address], 11/09/2023 19:14:32 11/09/19 24 11/09/2023 COMPR EHENS SHYAM METAB OLIC PANEL chloride 104 mmol/ L 98-107 Not Available [facility] (Lab) [address] [place], [address], 11/09/2023 19:14:32 11/09/19 24 11/09/2023 COMPR EHENS SHYAM METAB OLIC PANEL carbon dioxide 27 mmol/ L 22-30 Not Available [facility] (Lab) [address] [place], [address], 11/09/2023 19:14:32 11/09/19 24 11/09/2023 COMPR EHENS SHYAM METAB OLIC PANEL anion gap 12.5 mmol/ L 14-22 low Not Available [facility] (Lab) [address] [place], [address], 11/09/2023 19:14:32 11/09/19 24 11/09/2023 COMPR EHENS SHYAM METAB OLIC PANEL glucose 87 mg/dL 70-99 Not Available [facility] (Lab) [address] [place], [address], 11/09/2023 19:14:32 11/09/19 24 11/09/2023 COMPR EHENS SHYAM METAB OLIC PANEL BUN 19 mg/dL 8-19 Not Available [facility] (Lab) [address] [place], [address], 11/09/2023 19:14:32 11/09/19 24 11/09/2023 COMPR EHENS SHYAM METAB OLIC PANEL creatinine 1.49 mg/dL 0.66-1 .25 high Not Available [facility] (Lab) [address] [place], [address], 11/09/2023 19:14:32 11/09/19 24 11/09/2023 COMPR EHENS SHYAM METAB OLIC PANEL GFR 46 Refer ence Range : [place] ge GFR Healt hy Adult : >60 mL/mi n/1.7 3 m2 Chron ic Kidne y Disea se: 15-60 mL/mi n/1.7 3 m2 Kidne y Failu re: <15/m L/min /1.73 m2 www.n iddk. nih.g ov The MDRD study equat ion has not been valid ated in child eugenie <18 years of age; pregn ant women ; the elder ly >85 years of age; or in some racia l or ethni c subgr oups, such as Hispa nics. Outsi de the valid ated danay eters , estim ated GFR is less accur ate, requi ring clini will judgm ent on a case- by-ca se basis . Clini will inter preta tion for other races and ages must be made by the clini bienvenido. The MDRD study equat ion has not been valid ated for the evalu ation of serum creat inine relat ed to nutri ezra l statu s or medic ation usage . For perso ns <18 years of age, a pedia tric GFR calcu lator is avail able on the [facility] websi te: https ://caprice w.bev johnson.o rg/pr ofess ional s/kdo qi/gf r_cal culat or Not Available [facility] (Lab) [address] [place], [address], 11/09/2023 19:14:32 11/09/19 24 11/09/2023 COMPR EHENS SHYAM METAB OLIC PANEL alkaline phosphatase 71 U/L 38-126 Not Available [facility] (Lab) [address] [place], [address], 11/09/2023 19:14:32 11/09/19 24 11/09/2023 COMPR EHENS SHYAM METAB OLIC PANEL alanine aminotransfe rase 18 U/L 0-50 Not Available [facility] (Lab) [address] [place], [address], 11/09/2023 19:14:32 11/09/19 24 11/09/2023 COMPR EHENS SHYAM METAB OLIC PANEL aspartate aminotransfe rase 30 U/L 15-46 Not Available [facility] (Lab) [address] [place], [address], 11/09/2023 19:14:32 11/09/19 24 11/09/2023 COMPR EHENS SHYAM METAB OLIC PANEL bilirubin, total 0.40 mg/dL 0.20-1 .30 Not Available [facility] (Lab) [address] [place], [address], 11/09/2023 19:14:32 11/09/19 24 11/09/2023 COMPR EHENS SHYAM METAB OLIC PANEL calcium 9.5 mg/dL 8.4-10 .2 Not Available [facility] (Lab) [address] [place], [address], 11/09/2023 19:14:32 11/09/19 24 11/09/2023 COMPR EHENS SHYAM METAB OLIC PANEL total protein 7.2 g/dL 6.3-8. 2 Not Available [facility] (Lab) [address] [place], [address], 11/09/2023 19:14:32 11/09/19 24 11/09/2023 COMPR EHENS SHYAM METAB OLIC PANEL albumin 4.1 g/dL 3.0-4. 4 Not Available [facility] (Lab) [address] [place], [address], 11/09/2023 19:14:32 11/09/19 24 11/09/2023 COMPR EHENS SHYAM METAB OLIC PANEL globulin 3.1 g/dL 2.6-4. 2 Not Available [facility] (Lab) [address] [place], [address], 11/09/2023 19:14:32 11/09/19 24 11/09/2023 COMPR EHENS SHYAM METAB OLIC PANEL A/G ratio 1.3 ratio 1.0-2. 0 Not Available [facility] (Lab) [address] [place], [address], 11/09/2023 19:14:32 11/09/19 24 11/09/2023 PT/IN R PT 27.[address] [facility] Internal Med [facility] [address], [place], [address], 11/09/2023 16:05:16 11/09/19 24 11/09/2023 PT/IN R INR 2.[address] [facility] Internal Med [facility] [address], [place], [address], 11/09/2023 16:05:16 02/03/20 24 02/03/2024 PROTI ME W/INR protime 17.9 secon ds 9.4-11 .9 high Not Available [facility] (Lab) [address], [place], [address], 02/03/2024 14:28:13 02/03/20 24 02/03/2024 PROTI ME W/INR INR 1.8 INR INDIC ATION S 2.0 - 3.0 PROPH YLAXI S: VENOU S THROM BOSIS (HIGH RISK SURGE RY) AND SYSTE GUANACO EMBOL ISM (TISS UE HEART VALVE S, AMI VALVU LAR HEART DISEA SE AND ATRIA L FIBRI LLATI ON). TREAT MENT: VENOU S THROM BOSIS AND PULMO NARY EMBOL ISM BILEA FLET MECHA NICAL VALVE S IN AORTI C POSIT ION. 2.5 - 3.5 MECHA NICAL PROST HETIC HEART VALVE S (TILT ING DISK VALVE S AND BILEA FLET MECHA NICAL VALVE S IN ALLEN L POSIT ION). PREVE NTION OF RECUR RENT MYOCA RDIAL INFAR CTION . ANTIP HOSPH OLIPI D SYNDR OME. Not Available [facility] (Lab) [address], [place], [address], 02/03/2024 14:28:13 02/08/20 24 02/08/2024 PROTI ME W/INR protime 18.2 secon ds 9.4-11 .9 high Not Available [facility] (Lab) [address] [place], [address], 02/08/2024 12:48:29 02/08/20 24 02/08/2024 PROTI ME W/INR INR 1.8 INR INDIC ATION S 2.0 - 3.0 PROPH YLAXI S: VENOU S THROM BOSIS (HIGH RISK SURGE RY) AND SYSTE GUANACO EMBOL ISM (TISS UE HEART VALVE S, AMI VALVU LAR HEART DISEA SE AND ATRIA L FIBRI LLATI ON). TREAT MENT: VENOU S THROM BOSIS AND PULMO NARY EMBOL ISM BILEA FLET MECHA NICAL VALVE S IN AORTI C POSIT ION. 2.5 - 3.5 MECHA NICAL PROST HETIC HEART VALVE S (TILT ING DISK VALVE S AND BILEA FLET MECHA NICAL VALVE S IN ALLEN L POSIT ION). PREVE NTION OF RECUR RENT MYOCA RDIAL INFAR CTION . ANTIP HOSPH OLIPI D SYNDR OME. Not Available [facility] (Lab) [address] [place], [address], 02/08/2024 12:48:29 02/15/20 24 02/15/2024 PROTI ME W/INR protime 18.0 secon ds 9.4-11 .9 high Not Available [facility] (Lab) [address] [place], [address], 02/15/2024 14:46:39 02/15/20 24 02/15/2024 PROTI ME W/INR INR 1.8 INR INDIC ATION S 2.0 - 3.0 PROPH YLAXI S: VENOU S THROM BOSIS (HIGH RISK SURGE RY) AND SYSTE GUANACO EMBOL ISM (TISS UE HEART VALVE S, AMI VALVU LAR HEART DISEA SE AND ATRIA L FIBRI LLATI ON). TREAT MENT: VENOU S THROM BOSIS AND PULMO NARY EMBOL ISM BILEA FLET MECHA NICAL VALVE S IN AORTI C POSIT ION. 2.5 - 3.5 MECHA NICAL PROST HETIC HEART VALVE S (TILT ING DISK VALVE S AND BILEA FLET MECHA NICAL VALVE S IN ALLEN L POSIT ION). PREVE NTION OF RECUR RENT MYOCA RDIAL INFAR CTION . ANTIP HOSPH OLIPI D SYNDR OME. Not Available [facility] ([facility]) [address] [place], [address], 02/15/2024 14:46:39 05/13/20 23 05/13/2023 US, bladd er No observ ation record ed. [email or web address] [facility] [place] [address] [place] [address], [address], [place], [address], 05/13/2023 12:47:41 05/19/20 23 05/19/2023 XR, foot [facility] [address] [place], [place] [id number] Patien t Name: BRENNEN OLSON ion #: [id number] Sex: M : 1949 0 Dictat ed By: Nahun Preston Attend ing Physic fan: TAN ALCALA Orderi ng Physic fan: EDMOND ROMO Exam Date: 2022 10:51 AM Exam Name: XR FOOT LT 3V+ Admitt ing Diagno sis(es ): Clinic al Indica tion: PAIN LT TOE Compar dina: None FINDIN GS: AP, obliqu e, and latera l views of the left foot show normal alignm ent withou t fractu res or disloc ations . The first MTP joint is noted. . The talar dome is normal . Calcan eal spur noted. There is no soft tissue swelli ng or radiop aque foreig n bodies . If there is furthe r concer n, recomm end follow -up radiog raphs or bone scan for comple te assess ment. IMPRES CARLYN: 1. No acute fractu res identi fied. Arthri tic change s at the first MTP joint 2. Calcan eal spur. If there is concer n for planta r fascii tis, consid er MRI Electr onical ly Signed by: Nahun Preston at 2022 12:25: 27 PM Page 1 [email or web address] [facility] (Imaging) [address], [place], [address], 09/18/2023 21:52:16 09/29/20 23 XR, wrist No observ ation record ed. [email or web address] [facility] [place] [address] [facility], [place], [address], 09/29/2023 11:26:17 11/10/19 24 10/01/2023 CT, abdom en + pelvi s, w/wo contr ast No observ ation record ed. BARCODE Not Available 2023 12:57:54 Result Notes None recorded. Problems Name Problem SNOMED Code Status Onset Date Resolution Date Notes Provider Name and Address Organization Details Recorded Time Neck pain 92662673 Active 2022 NORA Servin null, [facility] 3 10:26:28 Pain of toe of left foot 27932269597 9108 Active 2022 Ingris Hunter RN null, [place] [facility] 3 14:39:12 History of pulmonar y embolus 017606524 Active 2022 Bubba Alcala MD [address] [facility], [address], [place], [address] , [facility] 3 17:30:45 Hyperlip idemia 85815566 Active 2022 Jocy Keene null, [facility] 3 14:51:26 Pain of left wrist 14980003479 9102 Active 2022 Marisel Montana CNA null, [place] [facility] 3 10:42:51 Arthriti s of first carpomet acarpal joint of left hand 96642026634 61820 Active 2022 Marisel Montana CNA null, [place] [facility] 3 11:03:17 Sprain of left wrist 32418938564 324234 Active 2022 BENEDICT Chase [address] [facility], [address], [place], [address] , [place] [facility] 3 11:25:17 Rectal hemorrha ge 23250634 Active 2023 Aletha Prieto RMJovana roblero, [place] [facility] 4 16:55:52 Laborato ry test result abnormal 322303209 Active 2023 Aletha Prieto RMA annika, [place] [facility] 4 12:04:11 Disorder of salivary gland 80842996 Active 2021 Not Available [facility] 3 03:26:28 Nonische guanaco congesti ve cardiomy opathy 08110056348 4 Active 2018 cardiac catheter ization EF 40- 45% 2018 Not Available [facility] 3 03:26:28 Disorder of shoulder 875393522 Active Not Available [facility] 3 03:26:28 Pain in right sacroili ac joint 44389018965 090691 Active 2022 Not Available [facility] 3 03:26:28 Cellulit is 736464204 Completed Not Available [facility] 3 03:26:28 Abnormal radionuc lide scan 138438278 Active 2019 indeterm inate V/Q scan while on Eliquis patient was started on Coumadin and treated as Eliquis failure could not do CT angiogra m Not Available [facility] 3 03:26:28 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 14418783207 9106 Active 2021 Not Available [facility] 3 03:26:28 Pain of left shoulder joint 61387016644 520073 Active 2022 Not Available [facility] 3 03:26:28 Bruising symptom 628852399 Completed Not Available [facility] 3 03:26:28 Increase d frequenc y of urinatio n 839065199 Active 2021 Not Available [facility] 3 03:26:28 Anticoag ulant therapy Active 2021 Not Available [facility] 3 03:26:29 Microsco pic hematuri a 396137851 Active 2021 Not Available [facility] 3 03:26:29 Partial thicknes s rotator cuff tear Active 2022 Not Available [facility] 3 03:26:29 Partial thicknes s rotator cuff tear Active 2022 Not Available [facility] 3 03:26:29 Abdomina l pain 70746042 Completed Not Available [facility] 3 03:26:29 Gastroes ophageal reflux disease 249513951 Active Not Available [facility] 3 03:26:29 Ventricu lar tachycar megan 97872537 Active 2021 [facility] June 2022 Not Available [facility] 3 03:26:29 Shoulder joint pain 432893979 Active Not Available [facility] 3 03:26:29 Eruption 224853368 Completed Not Available [facility] 3 03:26:29 Pain in right arm 865993139 Completed Not Available [facility] 3 03:26:29 Pain in right hip joint 42985448980 9102 Active 2022 Not Available [facility] 3 03:26:29 Sinusiti s 94901681 Completed Not Available [facility] 3 03:26:30 Chronic pain syndrome 847713033 Active Not Available [facility] 3 03:26:30 Osteoart hritis 139046978 Active 2020 Not Available [facility] 3 03:26:30 Malignan t tumor of prostate 354485155 Active 2021 Not Available [facility] 3 03:26:30 Dizzines s 323956338 Completed Not Available [facility] 3 03:26:30 Imaging result abnormal 949479306 Active 2021 Not Available [facility] 3 03:26:30 Recurren t hernia of anterior abdomina l wall 455929980 Active Not Available [facility] 3 03:26:30 History of malignan t neoplasm of prostate 178884767 Active 2019 Not Available [facility] 3 03:26:30 Chronic kidney disease stage 3 508170544 Active 2021 Not Available [facility] 3 03:26:30 Hernia of abdomina l cavity 13846626 Active Not Available [facility] 3 03:26:31 Upper respirat ory infectio n 78231005 Completed Not Available [facility] 3 03:26:31 Cervical radiculo fausto 19092926 Completed Not Available [facility] 3 03:26:31 Rhinitis 39212732 Completed Not Available [facility] 3 03:26:31 Urgent desire to urinate 00124705 Active 2021 Not Available [facility] 3 03:26:31 Spinal stenosis in cervical region 95252743 Active 2022 Not Available [facility] 3 03:26:31 Pain in limb 11253286 Active Not Available [facility] 3 03:26:31 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 Please review this document and add these problems to the patient's chart manually as needed. Problem Notes None recorded. Procedures Surgical History Date Name Laterality Status Provider Name and Address Organization Details Recorded Time 01/14/20 23 Ortho - Cortisone Injection completed Trung Buenrostro MD [address] [place] [address], [place] [address], [place], [address], [facility] [employer] 01/13/2023 10:14:39 06/09/20 22 Unlisted px cardiac surgery completed Not Available [facility] 12/31/2022 03:18:52 06/05/20 14 Colonoscopy completed Not Available [facility] 12/31/2022 03:18:52 Unlisted px femur/knee completed Not Available [facility] 12/31/2022 03:18:52 Cholecystectomy completed Not Available [facility] [facility] 12[facility]31/[facility]22 03:18:52 Tonsillectomy completed Not Available [facility] 12/31/2022 03:18:52 Back Surgery completed Not Available [facility] 12/31/2022 03:18:52 Hernia Repair completed Not Available [facility] 12/31/2022 03:18:52 Neck Surgeries completed Not Available [facility] 12/31/2022 03:18:52 Prostatectomy completed Not Available [facility] 12/31/2022 03:18:52 Vasectomy completed Not Available [facility] 12/31/2022 03:18:52 Imaging Results Imaging Date Name Status LastModified by Organiz ation Details LastModified Time 05/13/2023 US, bladder completed [email or web address] [facility] [place] [address] [facility], [address], [place], [address], 05/13/2023 12:47:41 05/19/2023 XR, foot completed [email or web address] [facility] (Imaging) [address], [place], [address], 09/18/2023 21:52:16 09/29/2023 XR, wrist completed [email or web address] [facility] [place] [address] [facility], [place], [address], 09/29/2023 11:26:17 10/01/2023 CT, abdomen + pelvis, w/wo contrast completed BAR[facility] Information not available 11/10/2023 12:57:54 Procedure Notes None recorded. Medical Equipment None Reported. Allergies Allergen ID Allergen Name Allergen Category Reaction Reaction Severity Criticality Documentation Date Start Date Code Code System Note Provider Name and Address Organization Details Recorded Time 6342 Lyrica medicatio n other Not available Not available 12/31/2022 99088 1 RxNorm visio n montanez es Not Available [facility] 03:35:30 6343 Celebrex medicatio n Not available Not available Not available 12/31/2022 62684 7 RxNorm Not Available [facility] 3 03:35:30 6344 amoxicill in medicatio n Not available Not available Not available 12/31/2022 723 RxNorm Not Available [facility] 3 03:35:30 78914 Farxiga medicatio n Not available Not available Not available 09/22/2023 99163 72 RxNorm Ingris pruitt RN null, [place] - [place] [employer] [facility] 3 12:27:08 Medications Name Sig Start Date Stop Date Status Note LastModified by Organization Details LastModified Time carisopro dol 350 mg tablet 1 q 8 hours prn active Not Available Not Available No t Available Xylocaine with Epinephri ne 2 %-1:100,0 00 injection solution Take 1 mL by injectio n route. 06/16 completed Not Available Not Available Not Available prednison e 10 mg tablet TAKE 1 TAB BY MOUTH 3 TIMES A DAY X 3 DAYS, 1 TAB 2 TIMES A DAY X 2 DAYS, 1 TAB ONCE A DAY X 1 DAY active Not Available Not Available No t Available doxycycli ne hyclate 100 mg capsule Take 1 capsule twice a day by oral route for 7 days. active Not Available Not Available No t Available nabumeton e 750 mg tablet TAKE 1 TABLET TWICE A DAY active Not Available Not Available No t Available clindamyc in HCl 300 mg capsule Take 1 capsule twice a day by oral route. active Not Available Not Available No t Available atorvasta tin 10 mg tablet TAKE 1 TABLET BY MOUTH EVERY DAY 2023 active Not Available Not Available Not Avai lable azithromy rey 250 mg tablet use as directed 10/15 completed Not Available Not Available Not Available nystatin 100,000 unit/gram topical ointment APPLY 1 (ONE) GRAM TO AFFECTED AREA TWO TIMES DAILY FOR 15 DAYS active Not Available Not Available No t Available tizanidin e 4 mg tablet Take 1 tablet every day by oral route at bedtime. active see pt case 04/14/22 Not Available Not Available Not Available hydrocodo ne 5 mg-acetam inophen 325 mg tablet TAKE 1 TO 2 TABLETS BY MOUTH EVERY 6 HOURS NEEDED 06/30 completed Not Available Not Available Not Available Medrol (Austen) 4 mg tablets in a dose pack uud 06/26 completed called shop n save Not Available Not Available Not Available bupivacai ne HCl 0.5 % (5 mg/mL) injection solution Take 10 mg by injectio n route. 2022 active Not Available Not Available Not Avai lable hydrocodo ne 10 mg-acetam inophen 325 mg tablet TAKE 1 TABLET BY MOUTH EVERY 12 HOURS NEEDED FOR SEVERE PAIN (7 TO 10 ON PAINSCAL E) active Not Available Not Available No t Available omeprazol e 40 mg capsule,d elayed release active Not Available Not Available Not Available tramadol 50 mg tablet TAKE 1 TABLET BY MOUTH EVERY 6 HOURS NEEDED FOR SEVERE PAIN (7 10 ON SCALE OF PAIN) 06/10 completed Not Available Not Available Not Available carvedilo l 3.125 mg tablet TAKE 1 TABLET BY MOUTH TWICE DAILY 2022 active Not Available Not Available Not Avai lable prednison e 10 mg tablets in a dose pack Take 1 tab by mouth, 3 times a day for 3 daysTake 1 tab by mouth 2 times a day for 2 daysTake 1 tab by mouth once a day for 1 day 2022 active Not Available Not Available Not Avai lable tamsulosi n 0.4 mg capsule TAKE 1 CAPSULE BY MOUTH EVERY DAY WITH DINNER 10/17 completed Not Available Not Available Not Available Kenalog 10 mg/mL suspensio n for injection Take 10 mg by injectio n route. 2022 active [facility]: [phone] Not Available Not Available Not Available baclofen 10 mg tablet TAKE 1 TABLET BY MOUTH EVERY 6 HOURS NEEDED FOR MUSCLE SPASM 06/10 completed Not Available Not Available Not Available hydrocodo ne 7.5 mg-acetam inophen 325 mg tablet Take 1 tablet every 6 hours by oral route as needed. 06/10 completed Not Available Not Available Not Available triamcino lone acetonide 0.1 % topical ointment APPLY 1 (ONE) GRAM TO AFFECTED AREA TWICE A DAY FOR 15 DAYS active Not Available Not Available No t Available nystatin 100,000 unit/gram topical cream APPLY TO THE AFFECTED AREA(S) BY TOPICAL ROUTE 2 TIMES PER DAY active Not Available Not Available No t Available lisinopri l 10 mg tablet TAKE 1 TABLET BY MOUTH EVERY DAY . 02/06 completed decrease d to 1/2 tab qd on 10/17/20 Not Available Not Available Not Available warfarin 2 mg tablet Take 1 tablet every day by oral route. 02/11 completed take 2mg for 6 days then on day 7 take 2.5mg; pt taking eliquis 5mg 2x daily instead, but starts warfarin back on 06/17 Not Available Not Available Not Available warfarin 5 mg tablet TAKE 1 TABLET BY MOUTH DAILY DIRECTED active Not Available Not Available No t Available diclofena c sodium 75 mg tablet,de layed release 11/27 completed Not Available Not Available Not Available mexiletin e 200 mg capsule TAKE 1 CAPSULE BY MOUTH THREE TIMES A DAY active Not Available Not Available No t Available furosemid e 20 mg tablet TAKE 1 TABLET BY MOUTH DAILY NEEDED FOR LEG EDEMA 2022 active Not Available Not Available Not Avai lable gabapenti n 100 mg capsule TAKE 1 CAPSULE BY MOUTH 3 TIMES DAILY active Not Available Not Available No t Available Viagra 100 mg tablet 06/26 completed Not Available Not Available Not Available warfarin 1 mg tablet TAKE 2 TABLETS BY MOUTH EVERY OTHER DAY ALTERNAT ING WITH 2 AND 1/2 TABLETS BY MOUTH EVERY OTHER DAY 02/11 completed Not Available Not Available Not Available albuterol sulfate HFA 90 mcg/actua tion aerosol inhaler INHALE 2 PUFFS BY MOUTH TWICE A DAY active Not Available Not Available No t Available fluticaso ne propionat e 50 mcg/actua tion nasal spray,cici pension USE 1 SPRAY NASALLY DAILY active Not Available Not Available No t Available doxycycli ne hyclate 100 mg tablet Take 1 tablet twice a day by oral route for 7 days. active Not Available Not Available No t Available oxycodone 5 mg tablet 06/26 completed Not Available Not Available Not Available Bactrim DS 800 mg-160 mg tablet Take 1 tablet twice a day by oral route. 10/22 completed Not Available Not Available Not Available Asprin Ec Low Dose 81 mg tablet,de layed release Take 1 tablet every day by oral route. 12/09 completed Not Available Not Available Not Available Vigamox 0.5 % eye drops 02/20 completed Not Available Not Available Not Available Lyrica 75 mg capsule Take 1 capsule every day by oral route. active Not Available Not Available No t Available Flonase 02/06 completed Not Available Not Available Not Available Coreg 09/22 completed Not Available Not Available Not Available nabumeton e 02/06 completed Not Available Not Available Not Available gabapenti n 02/06 completed Not Available Not Available Not Available Pepcid Complete 04/28 completed Not Available Not Available Not Available lidocaine (PF) 10 mg/mL (1 %) injection solution In office injectio n administ ered by the provider 10/10 completed [facility]: [phone] 6 Not Available Not Available Not Available calcium carb-mag oxide-vit D3 2021 active Not Available Not Available Not Avai lable lidocaine 2 % mucosal jelly in applicato r Take by mucous route. 12/09 completed Not Available Not Available Not Available Durezol 0.05 % eye drops 02/20 completed Not Available Not Available Not Available Suprep Bowel Prep Kit 17.5 gram-3.13 gram-1.6 gram oral solution 06/26 completed Not Available Not Available Not Available ropivacai ne (PF) 5 mg/mL (0.5 %) injection solution Take 20 mg by injectio n route. 02/11 completed Not Available Not Available Not Available lidocaine 5 % topical ointment 06/10 completed Not Available Not Available Not Available Myrbetriq 25 mg tablet,ex tended release Take 1 tablet every day by oral route for 30 days. 12/09 completed Not Available Not Available Not Available Ilevro 0.3 % eye drops,cici pension 02/20 completed Not Available Not Available Not Available Eliquis 5 mg tablet Take 1 tablet twice a day by oral route. 08/04 completed Not Available Not Available Not Available Farxiga 5 mg tablet TAKE 1 TABLET BY MOUTH EVERY DAY 2023 active Not Available Not Available Not Avai lable Fluzone Quad 5944-5010 60 mcg (15 mcg x 4)/0.5 mL IM suspensio n active Not Available Not Available Not Available Fluzone High-Dose 5930-0583 (PF) 180 mcg/0.5 mL intramusc ular syringe TO BE ADMINIST ERED BY TAWNY VILLA FOR IMMUNIZA TION 12/19 completed Not Available Not Available Not Available Ozempic 04/29 completed Started by his cardiolo gist for weight loss Not Available Not Available Not Available Fluzone High-Dose 0339-5176 (PF) 180 mcg/0.5 mL intramusc ular syringe 11/09 completed Not Available Not Available Not Available Fluzone High-Dose (PF) 180 mcg/0.5 mL intramusc ular syringe 10/10 completed Not Available Not Available Not Available Fluzone High-Dose Quad (PF) 240 mcg/0.7 mL IM syringe 10/10 completed Not Available Not Available Not Available Ozempic 1 mg/dose (4 mg/3 mL) subcutane ous pen injector Inject by subcutan eous route. 02/11 completed Not Available Not Available Not Available semagluti de (weight loss) one injectio n a week 05/06 completed Not Available Not Available Not Available Vitals Date Recorded Body height Provider Name an d Address Organization Details Last Updated DateTime 05/06/2023 182.88 cm Ana Muller RN [facility] [employer] 05/06/2023 10:56:27 Date Recorded Body height Body mass index (BMI) Body weight Oxygen saturation Oxygen saturation in Arterial blood by Pulse oximetry Body temperature Heart rate Systolic blood pressure Diastolic blood pressure Provider Name and Address Organization Details Last Updated DateTime 3 182.88 cm 34.4 kg/m2 592154. 46 g 95 % 95 % 98.2 [degF] 80 /min 141 mm[Hg] 93 mm[Hg] NORA Mercado [place] [employer] [facility] [employer] 3 11:29:42 Date Recorded Body height Body mass index (BMI) Body weight Body temperature Heart rate Systolic blood pressure Diastolic blood pressure Provider Name and Address Organization Details Last Updated DateTime 3 182.88 cm 36.2 kg/m2 216326. 16 g 98 [degF] 57 /min 126 mm[Hg] 72 mm[Hg] NORA Rousseau [place] [employer] [employer] 3 15:04:09 Date Recorded Body height Body mass index (BMI) Body weight Provider Name and Address Organization Details Last Updated DateTime 09/29/2023 182.88 cm 35.3 kg/m2 880413.02 g Marisel Montana CNA [place] [facility] [employer] 09/29/2023 10:42:19 Date Recorded Body height Body mass index (BMI) Body weight Body temperature Heart rate Systolic blood pressure Diastolic blood pressure Provider Name and Address Organization Details Last Updated DateTime 4 182.88 cm 38.2 kg/m2 380903. 05 g 97.3 [degF] 54 /min 124 mm[Hg] 74 mm[Hg] Erma Falk Jovana [place] [employer] [employer] 4 16:03:45 Social History Question Answer Notes LastModified by Organization Details LastModified Time Tobacco Smoking Status Former Smoker quit 05/24/19 Not Available [employer] 12/31/2022 03:13:58 Do You Have An Advance Directive? No Papers Provided MIGRATION.0301 [id number] Information not available 12/31/2022 What Is Your Level Of Alcohol Consumption? None MIGRATION.0301 [id number] Information not available 12/31/2022 Are You Blind Or Do You Have Difficulty Seeing? No MIGRATION.0301 751121 Information not available 12/31/2022 What Is Your Level Of Caffeine Consumption? Occasional MIGRATION.0301 500083 Information not available 12/31/2022 How Much Tobacco Do You Chew? None MIGRATION.0301 [id number] Information not available 12/31/2022 In The 14 Days Before Symptom Onset, Have You Had Close Contact With A Laboratory-conf irmed COVID-19 While That Case Was Ill? No MIGRATION.0301 [id number] Information not available 12/31/2022 In The 14 Days Before Symptom Onset, Have You Had Close Contact With A Person Who Is Under Investigation For COVID-19 While That Person Was Ill? No MIGRATION.0301 [id number] Information not available 12/31/2022 Are You Deaf Or Do You Have Serious Difficulty Hearing? No MIGRATION.0301 237800 Information not available 12/31/2022 What Type Of Diet Are You Following? REGULAR MIGRATION.0301 [id number] Information not available 12/31/2022 Which Illicit Or Recreational Drugs Have You Used? None MIGRATION.0301 [id number] Information not available 12/31/2022 Do You Or Have You Ever Used E-cigarettes Or Vape? Never Used Electronic Cigarettes MIGRATION.030 313593 Information not available 12/31/2022 What Is The Highest Grade Or Level Of School You Have Completed Or The Highest Degree You Have Received? 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 No MIGRATION.0301 104385 Information not available 12/31/2022 What Is The Fluoride Status Of Your Home? Unknown MIGRATION.0301 533547 Information not available 12/31/2022 When Did You Quit Smoking? 1-5yearssincelastc igarette MIGRATION.0301 686687 Information not available 12/31/2022 Are There Any Guns Present In Your Home? No MIGRATION.0301 787089 Information not available 12/31/2022 Do You Use Insect Repellent Routinely? No MIGRATION.0301 294856 Information not available 12/31/2022 Where Do You Live? SingleLevelHouse MIGRATION.0301 830845 Information not available 12/31/2022 Do You Have A Medical Power Of Assembler Dielectric Heater? No MIGRATION.0301 620522 Information not available 12/31/2022 What Was The Date Of Your Most Recent Tobacco Screening? 11/09/2023 [email or web address] Information not available 11/09/2023 Do You Have Any Pets? Yes MIGRATION.0301 188790 Information not available 12/31/2022 What Is Your Relationship Status? MIGRATION.0301 949082 Information not available 12/31/2022 Do You Use Your Seat Belt Or Car Seat Routinely? Yes MIGRATION.0301 055787 Information not available 12/31/2022 Do You Have Smoke And Carbon Monoxide Detectors In Your Home? Yes MIGRATION.0301 928227 Information not available 12/31/2022 At What Age Did You Start Smoking Tobacco? 18 MIGRATION.0301 714835 Information not available 12/31/2022 Are You Passively Exposed To Smoke? No MIGRATION.0301 [id number] Information not available 12/31/2022 Do You Or Have You Ever Used Smokeless Tobacco? Never Used Smokeless Tobacco MIGRATION.0301 887199 Information not available 12/31/2022 Are There Any Smokers In Your House? No MIGRATION.0301 656284 Information not available 12/31/2022 How Much Tobacco Do You Smoke? No Formerly 1 Ppd MIGRATION.0301 487627 Information not available 12/31/2022 What Types Of Sporting Activities Do You Participate In? None MIGRATION.0301 545593 Information not available 12/31/2022 Do You Feel Stressed (tense, Restless, Nervous, Or Anxious, Or Unable To Sleep At Night)? [id number] MIGRATION.0301 160853 Information not available 12/31/2022 Do You Use Any Illicit Or Recreational Drugs? No MIGRATION.0301 862989 Information not available 12/31/2022 Do You Use Sunscreen Routinely? Yes MIGRATION.0301 989013 Information not available 12/31/2022 Has Tobacco Cessation Counseling Been Provided? No MIGRATION.0301 105671 Information not available 12/31/2022 Have You Recently Traveled Abroad? No MIGRATION.0301 644755 Information not available 12/31/2022 Do You Have Any Dietary Restrictions? No MIGRATION.0301 360057 Information not available 12/31/2022 Do You Or Have You Ever Used Any Other Forms Of Tobacco Or Nicotine? No MIGRATION.0301 789546 Information not available 12/31/2022 Sex: Male Functional Status Question Answer Note LastModified by Organizat ion Details LastModified Time Do you have difficulty walking or climbing stairs? No MIGRATION.[id number] 026 Information not available 12/31/2022 Do you have transportation difficulties? No MIGRATION.7001220 026 Information not available 12/31/2022 Are you able to walk? YESWOREST MIGRATION.3416102 026 Information not available 12/31/2022 Do you have difficulty doing errands alone? No MIGRATION.[id number] 026 Information not available 12/31/2022 Are you able to care for yourself? Yes MIGRATION.7316097 026 Information not available 12/31/2022 Do you have difficulty dressing or bathing? No MIGRATION.4277762 026 Information not available 12/31/2022 What is your exercise level? Occasional MIGRATION.[id number] 026 Information not available 12/31/2022 Mental Status Question Answer Note LastModified by Organizat ion Details LastModified Time Do you have difficulty concentrating, remembering or making decisions? No MIGRATION.[id number] 6 Information not available 12/31/2022 Family History Relationship Description Onset Age of this Age Resolved Age Notes LastModified by Organization Details LastModified Time Mother Malignant tumor of breast MIGRATION.681 [id number] Not available 12/31/2022 03:18:58 Father Malignant neoplastic disease MIGRATION.476 [id number] Not available 12/31/2022 03:18:58 Notes:blood clots in legs an d lungs-Father Medical History Condition Response BLINDNESS N NERVE DISEASE N RHEUMATIC FEVER N BLADDER PROBLEMS N KIDNEY STONES N MRSA N OTHER # 1 N POLIO N LUNG DISEASE/DISORDER Y HISTORY OF DRUG ABUSE N RADIATION / CHEMOTHERAPY Y COPD N Other # 2 N BLOOD DISEASES N SURGERY N EAR OR HEARING PROBLEMS N MUMPS N SHINGLES N BOWEL PROBLEMS N DEPRESSION (INCLUDING POST ) N STROKE/TIA N ULCERS N BENIGN PROSTATIC HYPERPLASIA N MEASLES N MYOCARDIAL INFARCTION N OBESITY N GERD/NAUSEA Y ANEURYSM N URINARY/BLADDER/KIDNEY PROBLEMS Y CORONARY ARTERY DISEASE (CAD) Y ADDICTION CONCERNS N ENDOMETRIOSIS N Impotence N USE OF BLOOD THINNERS Y SKIN PROBLEMS N GASTROINTESTINAL DISORDER N PARATHYROID DISEASE N PERIPHERAL VASCULAR DISEASE N MUSCLE,JOINT OR BONE PROBLEMS N GASTROINTESTINAL BLEEDING N BLOOD CLOTS Y ASTHMA N CATARACTS N ERECTILE DYSFUNCTION N VARICOSITIES N GI PROBLEMS N CHF N Low Testosterone N INFERTILITY N AIDS/HIV N FRACTURES N CHEMOTHERAPY / RADIATION N LIVER DISEASE N MALE HYPOGONADISM N HYPERTENSION N Deficiency N TOURETTE'S N ANXIETY DISORDER N BLOOD TRANSFUSION N ANEMIA/BLOOD DISORDER N CHRONIC EAR INFECTIONS N BRONCHITIS N TUBERCULOSIS N GLAUCOMA N FOOT PROBLEM N DIVERTICULITIS N CHICKENPOX N SLEEP APNEA N ALLERGIES/HAYFEVER N INFECTIOUS DISEASE N HEART ARRHYTHMIA N PROSTATE N INSOMNIA N HIGH CHOLESTEROL / HYPERLIPIDEMIA N HYPERTHYROIDISM N EYE PROBLEMS N NEUROLOGICAL PROBLEMS N EDEMA N CHRONIC PAIN SYNDROME N HYPOTHYROIDISM N CAROTID BLOCKAGE N CONSTIPATION N BACK / NECK PROBLEMS Y HAVE YOU BEEN HOSPITALIZED OR SEEN IN [facility] IN THE PAST YEAR ? N ATHEROSCLEROSIS N BREAST PROBLEMS N DIALYSIS N ECZEMA N HISTORY WITH COMPLICATIONS WITH ANESTHES IA ? N OSTEOPOROSIS N ARTHRITIS Y NO SIGNIFICANT PAST MEDICAL HISTORY N APPENDICITIS N DIABETES, TYPE N BAD TEETH N ENT N SEASONAL ALLERGIES N HEARTBURN / REFLUX N AUTISM SPECTRUM DISORDER (ASD) N HEPATITIS / LIVER DISEASE N GOUT N SLEEP DISORDER N ALZHEIMER'S DISEASE N Brain Problems N HERPES N DEMENTIA N HEADACHES/MIGRAINES N SEIZURES/EPILEPSY N VASCULAR DISEASE Y PACEMAKER N Blood Disorder N DIZZINESS N HEART DISEASE/HEART PROBLEMS Y KIDNEY DISEASE N MULTIPLE SCLEROSIS N CARDIAC ARRHYTHMIA N CANCER: SPECIFY Y ANESTHESIA COMPLICATIONS N ATRIAL FIBRILLATION N Gall Stones N PULMONARY EMBOLISM N AUTOIMMUNE DISEASE N Immunizations Vaccine Type Date Status Note Provider Nam e and Address Organization Details Recorded Time Influenza, split virus, trivalent, preservative 3 completed Not Available [facility] 12/31/2022 03:35:17 COVID-19, mRNA, LNP-S, PF, 100 mcg/0.5mL dose or 50 mcg/0.25mL dose 2 completed Not Available [facility] 12/31/2022 03:35:17 Influenza, high-dose, trivalent, PF 9 completed Not Available [facility] 12/31/2022 03:35:17 Influenza, high-dose, trivalent, PF 8 completed Not Available [facility] 12/31/2022 03:35:17 COVID-19, mRNA, LNP-S, PF, 100 mcg/0.5mL dose or 50 mcg/0.25mL dose 1 completed Not Available [facility] 12/31/2022 03:35:17 COVID-19, mRNA, LNP-S, PF, 100 mcg/0.5mL dose or 50 mcg/0.25mL dose 1 completed Not Available [facility] 12/31/2022 03:35:17 Influenza, high-dose, quadrivalent, PF 0 completed Not Available [facility] 12/31/2022 03:35:17 influenza, unspecified formulation 4 completed Not Available [facility] 12/31/2022 03:35:17 Influenza, split virus, trivalent, preservative 3 completed Not Available [facility] 12/31/2022 03:35:17 Influenza, high-dose, quadrivalent, PF 2 completed Not Available [facility] 12/31/2022 03:35:17 Influenza, high-dose, quadrivalent, PF 1 completed Not Available [facility] 12/31/2022 03:35:18 Influenza, high-dose, trivalent, PF 7 completed [facility] Available [facility] 12/31/2022 03:35:18 Influenza, split virus, quadrivalent, PF 5 completed Not Available [facility] 12/31/2022 03:35:18 Influenza, high-dose, quadrivalent, PF 3 completed Bubba Alcala MD [address] [facility], [address], [place], [address], [facility] 08/16/2023 17:35:03 Past Encounters Encounter ID Performer Location Encounter Start Date Encounter Closed Date Diagnosis/Indication Diagnosis SNOMED-CT Code Diagnosis ICD10 Code Diagnosis Note [id number] [facility] [address] [place], [place] [address]., [facility] [address] [place] [address] 02/06/2021 00:00:00 02/06/2021 22:55:37 [id number] [facility] [address] [place] [address] 04/29/2021 00:00:00 04/29/2021 13:13:52 [id number] [facility] [address] [place], [place] [address]., [facility] [address] [place] [address] 05/07/2021 00:00:00 05/12/2021 17:07:15 [id number] [facility] [address], [address] [address] 06/10/2021 00:00:00 06/10/2021 12:22:16 [id number] [facility] [address] [address] 06/27/2021 00:00:00 07/21/2021 17:18:22 [id number] [facility] [address] [address] 08/02/2021 00:00:00 08/03/2021 15:06:58 [id number] [facility] [address] [place], [place] [address]., [address] [address] 09/04/2021 00:00:00 09/06/2021 22:49:18 [id number] [facility] [address] [place], [place] [address]., [address] [address] 12/03/2021 00:00:00 12/07/2021 21:41:41 [id number] [facility] [address] [address] 12/09/2021 00:00:00 12/09/2021 12:12:14 [id number] [facility] Internal Med [facility] [address] [place] [address] [place] [address] 03/04/2022 00:00:00 03/04/2022 23:32:54 [id number] [facility] [address] [address] 04/28/2022 00:00:00 04/28/2022 12:17:36 [id number] [facility] Internal Med [facility] [address] [place] [address] [place] [address] [address] 05/06/2022 00:00:00 05/06/2022 20:22:12 [id number] [facility] ENT [place] [address] [place] [address] 05/22/2022 00:00:00 05/22/2022 15:18:36 [id number] [facility] Internal Med [facility] [address] [place] [address] [place] [address] 06/16/2022 00:00:00 06/16/2022 21:38:04 [id number] [facility] [address] [address] 08/04/2022 00:00:00 08/04/2022 11:58:54 [id number] [facility] Internal Med [place] [address] [facility] 15 [place] [address] 09/22/2022 00:00:00 09/27/2022 17:21:44 [id number] [facility] Urology [place] [address] [facility], [address] [place] [address] 11/10/2022 00:00:00 11/10/2022 12:11:08 [id number] [facility]o [place] [address] [facility] [address] [place] [address] 11/20/2022 00:00:00 11/20/2022 11:41:26 [id number] [facility] [address] [address] 12/16/2022 00:00:00 12/16/2022 10:24:20 [id number] [facility] Internal Med [facility] 15 [address] [facility], [facility] 15 [place] [address] 12/17/2022 00:00:00 12/17/2022 21:55:25 [id number] Trung Buenrostro MD [facility] [address] [address] 01/13/2023 09:50:12 01/13/2023 10:25:20 Pain in right sacroiliac joint [id number] 9329567 M53.3 Pain in ri ght hip joint 4697378779 22734 M25.551 [id number] Trung Buenrostro MD [facility] [address] [address] 02/10/2023 10:21:30 02/10/2023 11:07:04 Neck pain 54694319 M54.2 Spinal miguel a nosis in cervical region 51076121 M48.02 [id number] John Mas MD [facility] [place] [address] [facility], [address] [place] [address] 02/11/2023 09:16:51 02/11/2023 10:11:45 Malignant tumor of prostate [id number] C61 :-TREATMEN T HISTORY:2012 - RALP (Dr Zepeda at [facility]) - GS 3+4=7, pT3a03/2022 - Salvage IMRT + 6 mos ADT (PSA 0.18) PLAN:-q3mo s PSA through 01/2024, then q6mos through 12/2024, then annual thereafter Hormone se nsitive prostate cancer 963098620 Z19.1 Increased frequency of urination 662691321 R35.0 :Intermitt ently check UA and PVRContinu e Myrbetriq 25mg daily [id number] Bubba Alcala MD [facility] Internal Med [facility] [address] [facility] [place] [address] 1 04/22/2023 14:51:02 04/22/2023 16:05:43 Anticoagulant therapy 652274895 Z79.01 Spinal miguel a nosis in cervical region 90529565 M48.02 Chronic pain syndrome 37 8418729 G89.4 [id number] Bubba Alcala MD [facility] Internal Med [facility] [address] [facility] [place] [address] 1 05/06/2023 10:45:26 05/06/2023 10:59:29 Anticoagulant therapy 219772817 Z79.01 [id number] John Mas MD [facility] Urology [place] [address] [place] [address], [facility] [place] [address] 1 05/13/2023 11:09:20 05/13/2023 11:47:48 Malignant tumor of prostate [id number] C61 :-TREATMEN T HISTORY:2012 - RALP (Dr Zepeda at [facility]) - GS 3+4=7, pT3a03/2022 - Salvage IMRT + 6 mos ADT (PSA 0.18) PLAN:-q3mo s PSA through 01/2024, then q6mos through 12/2024, then annual thereafter Hormone se nsitive prostate cancer 911881700 Z19.1 Increased frequency of urination 483541494 R35.0 :Intermitt ently check UA and PVRContinu e Myrbetriq 25mg daily [id number] Bubba Alcala MD [facility] Internal Med [facility] [address] [place] [address] 08/04/2023 14:46:38 08/04/2023 15:49:09 Administration of influenza vaccine 55896916 Z23 Anticoagulant therapy 18 6542177 Z79.01 Cholesterol screening 27 6861155 Z13.220 Screening for cardiovascular system disease 916115206 Z13.6 Nonischemi c congestive cardiomyopathy 5461308134 04 I42.0 Chronic ki dney disease stage 3 206377018 N18.30 Spinal miguel a nosis in cervical region 69846758 M48.02 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 ([place], [place]) [address] [place] [address] 09/29/2023 10:39:27 09/29/2023 11:13:50 Pain of left wrist 6411607710 76074 M25.532 Arthritis of first carpometacarpal joint of left hand 1429375996 336462 M13.842 Sprain of left wrist 952 2675519 2923356 S63.502A [id number] Bubba Alcala MD [facility] Internal Med [facility] 15 [address] [place] [address] 11/09/2023 15:28:26 11/09/2023 16:55:32 Anticoagulant therapy 895801520 Z79.01 Rectal hemorrhage 908818 02 K62.5 Hyperlipidemia 44889410 E78.5 Long-term drug therapy 430016869 Z79.899 Chronic de ep venous thrombosis of lower extremity 2990310432 42013 I82.509 Chronic ki dney disease stage 3 099839734 N18.30 History of malignant neoplasm of prostate 975830528 Z85.46 History of pulmonary embolus 867574207 Z86.711 Nonischemi c congestive cardiomyopathy 5177382916 04 I42.0 Health Concerns Section Related Observation LastModified by Organization Detai ls LastModified Time None Recorded Concern Status LastModified by Organization Details LastModified Time None Recorded Advance Directives Directive N: papers provided Payers Encounter Date Sequence Insurance Name Policy Number Policy Abbasi Covered Member ID Abbasi Member ID Guarantor Name 05/06/2023 1 [facility] (MEDICARE REPLACEMENT/A DVANTAGE - HMO) [id number] Brennen Olson [id number] Brennen Olson 05/13/2023 1 [facility] (MEDICARE REPLACEMENT/A DVANTAGE - HMO) [id number] Brennen Olson [id number] Brennen Olson 08/04/2023 1 [facility] (MEDICARE REPLACEMENT/A DVANTAGE - HMO) [id number] Brennen Olson [id number] Brennen Olson 09/29/2023 1 [facility] (MEDICARE REPLACEMENT/A DVANTAGE - HMO) [id number] Brennen Olson [id number] Brennen Olson 11/09/2023 1 [facility] (MEDICARE REPLACEMENT/A DVANTAGE - HMO) [id number] Brennen Olson [id number] Brennen Olson Notes Date Note Type Note Provider Name and Address Organization Details Recorded Time 05/13/2023 text/html :02/11/2023 ORIGI NAL HPI - Patient peviously seen by Dr. Tomas, here to establish with me. Takes Myrbetriq 25mg for LUTS -INITIAL DIAGNOSIS/STAGE: TRUSBx = Unknown -TREATMENT HISTORY:05/2013 - RALP (Dr Zepeda at [facility]) - GS 3+4=7, pT3a5 - Salvage IMRT + 6 mos ADT (PSA 0.18) -PSA TREND:04/2023 - Undetectable12/2022 - Undetectable (T = 301)04/2022 - Undetectable UA: tr RBC, nit neg, LE neg INTERVAL HISTORY:05/13/2023 - PAtient presents in follow up -- PSA Undetectable with T no longer castrate as of 12/2022 -- has bothersome LUTS when off his Myrbetriq 25mg (cost prohibitive to him, but it works well, so often optimizes samples when available)UA: negative for blood or infectionPVR: 11cc John Mas MD [address] [facility], [facility] [address], [place], [address], [facility] [employer] 05/13/2023 11:48:16 08/04/2023 text/html cervical spinal stenosis no gait problems. Heart failure with reduced ejection fraction he has not had any decompensation symptomsCervical spinal stenosis his pain is fine is no myelopathy symptoms. Rhinitis stable with fluticasone. CKD 3 no new symptoms referable to thatHistory of PE INR 2.5 Bubba Alcala MD [address], [facility] [address], [place], [address], [employer] [facility] [employer] 08/16/2023 17:35:06 09/29/2023 text/html Patient returns with a new problem. One month ago he fell and used his left hand to catch himself and jammed my left wrist . Most the pain is localized to the basilar thumb region. He states it has gotten a little bit better he never had any swelling or bruising did not seek formal treatment at that time did not think he had a fracture. He gave it some time however his symptoms continue. He cannot take anti-inflammatories due to the fact that he is on chronic warfarin so he has tried rest and ice occasionally. Along with activity modification. If he tries to do anything in terms of heavy gripping or grasping or lifting he has significant pain again mostly localized to the basilar thumb joint. Some generalized pain is noted through the wrist but no swelling today he has good range of motion a lot of his pain is reproduced with wrist extension and he is tender at the basilar thumb joint. He also has pain with pinching or gripping on exam today. He comes in today for initial evaluation treatment after a fall on his left wrist as described. We will get x-rays today for evaluation as been 1 month since his injury. Denies any loss of motion or numbness or tingling in the hand.Past medical history is reviewed today no changes in his medical status is noted by the patient. BENEDICT Cahse [address], [facility] [address], [place], [address], [employer] 09/29/2023 11:27:08 11/09/2023 text/html cervical spinal stenosis no gait problems. Heart failure with reduced ejection fraction he has not had any decompensation symptomsCervical spinal stenosis his pain is fine is no myelopathy symptoms. Rhinitis stable with fluticasone. CKD 3 no new symptoms referable to thatHistory of PE INR 2.5Some mild discomfort left lower quadrant at times and has had some blood in his stool has been largely bright red Bubba Alcala MD [address], [facility] [address], [place], [address], [employer] [facility] 11/09/2023 21:21:39
--- OUTSIDE RECORDS SUMMARY | 2024-12-07 16:21 | XMS_ITS | Referral Summary ---
Author Organization [facility] [employer] Address [address] [place] [address] Care Team Providers Care Rolloff Driver Name Role Phone Jas Alcala MD Unavailable [phone] Jas Alcala MD Primary Care Provider [phone] Source Comments [facility],non-owned Affiliates and Associated Physician Practices is amultiple site organization consisting of ambulatory clinics and hospital sitesin [place], [place], [place] and [place]. This disclosure is being madepursuant to the Care Everywhere program and may not contain all information available regarding this patient. Last updated 18.[facility] Allergies Active Allergy Reactions Criticality Noted Date Comments Celecoxib 09/23/2010 Penicillins 09/23/2010 Medications * Be aware that medications may not be up to date on this document. Alwaysverify current medications with the patient. Medication Sig Dispensed Refills Start Date End Date Status tamsulosin CR 24hr (FLOMAX) 0.4 MG capsule Take 0.4 mg by mouth daily after breakfast. Take 30 minutes after a meal at the same time each day. Active cyclobenzaprine (FLEXERIL) 10 MG tablet Take 10 mg by mouth 3 times daily as needed. Active cyclobenzaprine (FLEXERIL) 10 MG tablet Take 1 Tab by mouth 3 times daily as needed for Muscle Spasms. 30 Tab 1 10/22/2010 Active hydrocodone-acetaminop hen (NORCO) 5-325 MG tablet Take 1 Tab by mouth every 4 hours as needed for Pain. 40 Tab 1 12/11/2010 Active diclofenac sodium EC (VOLTAREN) 75 MG tablet Take 1 Tab by mouth 2 times daily. 60 Tab 5 03/07/2014 Active Active Problems Problem Noted Date Diagnosed Date Status post cervical spinal fusion 11/07/2010 Cervical spondylosis without myelopathy 11/07/19 11 Resolved Problems Problem Noted Date Diagnosed Date Resolved Date Cervical spondylosis without myelopathy 09/23/2010 10/22/2010 Social History Tobacco Use Types Packs/Day Years Used Date Smoking Tobacco: Every Day Alcohol Use Standard Drinks/Week Comments Yes 0 (1 standard drink = 0.6 oz pur e alcohol) rarely Sex and Gender Information Value Date Recorded Sex Assigned at Not on file Gender Identity Not on file Sexual Orientation Not on file Last Filed Vital Signs Vital Sign Reading Time Taken Comments Blood Pressure 150/99 10/22/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 Pulse 68 10/22/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 Temperature 36.6 C (97.8 F) 10/22/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 Respiratory Rate 16 10/22/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 Oxygen Saturation 97% 10/22/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 Inhaled Oxygen Concentration - - Weight 129.7 kg (286 lb) 10/22/2010 7:02 AM DRIVER RETRAINING INSTRUCTOR Height 182.9 cm (6') 10/22/2010 7:02 AM DRIVER RETRAINING INSTRUCTOR Body Mass Index 38.79 10/22/2010 7:02 AM DRIVER RETRAINING INSTRUCTOR Plan of Treatment Not on file Advance Directives * Full Code (Latest Code Status on File) Date Activated Date Inactivated Comments 10/22/2010 2:20 PM 10/23/2010 7:05 AM Care Teams Rolloff Driver Relationship Specialty Start Date End Date Jas Alcala MD [address] [place] [address] PCP - General 10/22/10 Jas Alcala MD Internal Medicine 09/23/10
--- OUTSIDE RECORDS SUMMARY | 2024-12-07 16:21 | XMS_ITS | Clinical Summary ---
Author Organization [facility] Address [address] [place] [address] Care Team Providers Care Legal Collector Name Role Phone Jas Alcala MD Primary Care Provider [phone] Allergies Active Allergy Reactions Criticality Noted Date Comments Amoxicillin Hives,Rash Low 01/26/2024 Celecoxib Other (see comment) 09/23/2010 Dapagliflozin Rash Low 01/19/2024 Penicillins Other (see comment) High 09/23/2010 Pregabalin Other (see comment) High 06/24/2019 Medications albuterol sulfate HFA 108 (90 Base) MCG/ACT inhaler albuterol sulfate HFA 90 mcg/actuation aerosol inhaler INHALE 2 PUFFS BY MOUTH TWICE A DAY Active carvedilol 3.125 MG tablet Take 1 tablet (3.125 mg total) by mouth 2 (two) times daily. Active furosemide 20 MG tablet furosemide 20 mg tablet TAKE 1 TABLET BY MOUTH DAILY NEEDED FOR LEG EDEMA Active gabapentin 100 MG capsule Take 1 capsule (100 mg total) by mouth 3 (three) times daily. Active warfarin 1 MG tablet warfarin 1 mg tablet TAKE 2 TABLETS BY MOUTH EVERY OTHER DAY ALTERNATING WITH 2.5 MG Active aspirin EC (ECOTRIN) 81 MG tablet Take 1 tablet (81 mg total) by mouth daily. Active calcium carbonate 1250 (500 Ca) MG chewable tablet Chew 1 tablet (1,250 mg total) by mouth daily. Active Semaglutide, 1 MG/DOSE, (OZEMPIC, 1 MG/DOSE,) 4 MG/3ML Solution Pen-injector Ozempic 1 mg/dose (4 mg/3 mL) subcutaneous pen injector Inject by subcutaneous route. Active magnesium oxide (MAG-OX) 400 MG tablet Active atorvastatin (LIPITOR) 10 MG tablet Take 1 tablet (10 mg total) by mouth nightly at bedtime. Active solifenacin (VESICARE) 5 MG tablet Take 2 tablets (10 mg total) by mouth daily. 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 06/17/2022 Overview (06/17/2022): Added automatically from request for surgery [id number] Family History Medical History Relation Comments Cancer Father Cancer Mother Breast Relation Status Comments Father Mother Social History Tobacco Use Types Packs/Day Years Used Date Smoking Tobacco: Former Cigarettes 1.5 40 1 979 - 2019 Smokeless Tobacco: Never Tobacco Cessation:Counseling Given: Not Answered Alcohol Use Standard Drinks/Week Comments Not Currently 0 (1 standard drink = 0.6 oz pur e alcohol) PHQ-2 Answer Date Recorded PHQ-2 Score - If the patient scores above 3, please move on to questions 3-9 0 08/15/2022 Sex and Gender Information Value Date Recorded Sex Assigned at Not on file Legal Sex Male 3:02 PM CDT Gender Identity Not on file Sexual Orientation Not on file Last Filed Vital Signs Vital Sign Reading Time Taken Comments Blood Pressure 133/80 01/26/2024 3:30 PM CDT Pulse 65 01/26/2024 3:30 PM CDT Temperature 36.2 C (97.1 F) 01/26/2024 3:30 PM CDT Respiratory Rate 16 01/26/2024 3:30 PM CDT Oxygen Saturation 97% 01/26/2024 3:30 PM CDT Inhaled Oxygen Concentration - - Weight 127.9 kg (281 lb 15.5 oz) 2023 10:10 AM CDT Height 182.9 cm (6') 01/26/2024 10:10 AM CDT Body Mass Index 38.24 01/26/2024 10:10 AM CDT Plan of Treatment Health Maintenance Due Date Last Done Comments Colorectal Cancer Screening Colonoscopy (10 Years) 1950 Hepatitis C 01/18/1968 DTaP, Tdap and Td Vaccines (1 - Tdap) 1969 Zoster Vaccines (1 of 2) 01/18/2000 Annual Medicare Wellness Visit 2015 Pneumococcal Vaccine: 65+ Years (1 of 1 - PCV) 2015 COVID-19 Vaccine (5 - season) 2024 11/05/2021, 10/21/2021, 01/01/2021, Additional history exists Influenza Adult (#1) 2024 09/17/2019, 09/05/2018, 08/02/2018, Additional history exists RSV Immunization or 60+ Years (1 - 1-dose 75+ series) 2025 AAA SCREENING Completed 07/03/2022, 04/01/2022 Meningococcal B Vaccine Aged Out No l onger eligible based on patient's age to complete this topic Meningococcal Vaccine Aged Out No rufus gretta eligible based on patient's age to complete this topic RSV Immunizations Under 20 Months Aged Out No longer eligible based on patient's age to complete this topic Procedures Procedure Name Priority Date/Time Associated Diagnosis Comments CT CHEST WO CON Routine 07/03/2022 10:27 AM CDT Lung nodule from Last 3 Months or Most Recently Relevant to Health Maintenance Results * CT CHEST WO CON (07/03/2022 10:27 AM CDT) Anatomical Region Laterality Modality Chest Computed Tomogra phy 07/08/2022 1:15 PM CDT Impressions 07/08/2022 1:48 PM CDT =====IMPRESSION:===== 1. Stable lingular opacity compatible with chronic subsegmental atelectasis. No new or suspicious pulmonary nodules. 2. Old healed granulomatous disease. 3. No suspicious adenopathy in the chest. Previous left supraclavicular lymph node has resolved. 4. Aneurysmal ascending thoracic aorta measuring 4.5 cm. 5. Coronary artery calcifications. 6. Small hiatal hernia. 7. Other incidental and chronic findings as described. Ordered By: KLAUDIA LOPEZ Interpreted By: Juancho Mckinnon MD, 07/08/2022 1:15 PM Narrative 07/08/2022 1:48 PM CDT EXAMINATION: CT Chest without contrast EXAM DATE/TIME: 07/03/2022 10:19 AM REASON FOR EXAM: Follow up lymphadenopathy and atelectasis, PET/CT on 04/01/2022 Lung nodule, > 8mm COMPARISON: Prior PET/CT 04/01/2022 TECHNIQUE: Computed tomography of the chest was obtained without administration of intravenous contrast according to routine protocol. Automated exposure control was utilized for dose reduction. FINDINGS: Mediastinal Windows: Normal cardiac size. No pericardial effusion. Moderate coronary artery calcifications. Mild aortic atherosclerosis. Aneurysmal dilatation of the ascending aorta measuring 4.5 cm. Few scattered vascular calcifications elsewhere. The visualized thyroid and trachea are unremarkable. Small hiatal hernia. Esophagus is somewhat patulous. Mediastinal and hilar lymph node calcifications suggesting old healed granulomatous disease. There is no suspicious adenopathy. Previous left supraclavicular lymph node has resolved, nearly imperceptible. Diffuse hepatic steatosis. Scattered granulomatous calcifications in the liver and spleen. Chronic renal cysts, poorly characterized on this exam. Cholecystectomy clips. Lung windows: Chronic subsegmental atelectasis of the lingula, inferior segment. No change from prior exams. Associated air bronchogram. Right upper lobe calcified granulomas. No new or suspicious nodules. Spinal neurostimulator leads partially visualized. Prior cervical fusion. Diffuse degenerative changes are noted. No acute fracture or destructive bone lesion. Procedure Note [place], Juancho Nesbitt MD - 07/08/2022 EXAMINATION: CT Chest without contrast EXAM DATE/TIME: 07/03/2022 10:19 AM REASON FOR EXAM: Follow up lymphadenopathy and atelectasis, PET/CT on04/01/2022 Lung nodule, > 8mm COMPARISON: Prior PET/CT 04/01/2022 TECHNIQUE: Computed tomography of the chest was obtained withoutadministration of intravenous contrast according to routine protocol.Automated exposure control was utilized for dose reduction. FINDINGS: Mediastinal Windows: Normal cardiac size. No pericardial effusion.Moderate coronary artery calcifications. Mild aortic atherosclerosis.Aneurysmal dilatation of the ascending aorta measuring 4.5 cm. Fewscattered vascular calcifications elsewhere. The visualized thyroid andtrachea are unremarkable. Small hiatal hernia. Esophagus is somewhatpatulous. Mediastinal and hilar lymph node calcifications suggesting oldhealed granulomatous disease. There is no suspicious adenopathy. Previousleft supraclavicular lymph node has resolved, nearly imperceptible.Diffuse hepatic steatosis. Scattered granulomatous calcifications in theliver and spleen. Chronic renal cysts, poorly characterized on this exam.Cholecystectomy clips. Lung windows: Chronic subsegmental atelectasis of the lingula, inferiorsegment. No change from prior exams. Associated air bronchogram. Rightupper lobe calcified granulomas. No new or suspicious nodules. Spinal neurostimulator leads partially visualized. Prior cervical fusion.Diffuse degenerative changes are noted. No acute fracture or destructivebone lesion. =====IMPRESSION:===== 1. Stable lingular opacity compatible with chronic subsegmentalatelectasis. No new or suspicious pulmonary nodules. 2. Old healed granulomatous disease. 3. No suspicious adenopathy in the chest. Previous left supraclavicularlymph node has resolved. 4. Aneurysmal ascending thoracic aorta measuring 4.5 cm. 5. Coronary artery calcifications. 6. Small hiatal hernia. 7. Other incidental and chronic findings as described. Ordered By: KLAUDIA LOPEZ Interpreted By: Juancho Mckinnon MD, 07/08/2022 1:15 PM Klaudia Lopez MD CT Final Result from Last 3 Months or Most Recently Relevant to Health Maintenance Insurance Care Teams Legal Collector Relationship Specialty Start Date End Date Jas Alcala MD [address] [place] [address] PCP - General INTERNAL MEDICINE 02/11/22
--- OUTSIDE RECORDS SUMMARY | 2024-12-07 16:21 | XMS_ITS | Patient Health Summary ---
Author Organization [facility] Address [address] [place] [address] Care Team Providers Care Functional Support Analyst Name Role Phone Jas Alcala MD Unavailable [phone] Jas Alcala MD Primary Care Provider [phone] Note from [facility],non-owned Affiliates and Associated Physician Practices is amultiple site organization consisting of ambulatory clinics and hospital sitesin [place], [place], [place] and [place]. This disclosure is being madepursuant to the Care Everywhere program and may not contain all information available regarding this patient. Last updated 18.[facility] Allergies * Celecoxib * Penicillins Medications * Be aware that medications may not be up to date on this document. Alwaysverify current medications with the patient. * tamsulosin CR 24hr (FLOMAX) 0.4 MG capsule Take 0.4 mg by mouth daily after breakfast. Take 30 minutes after a meal at the same time each day. * cyclobenzaprine (FLEXERIL) 10 MG tablet Take 10 mg by mouth 3 times daily as needed. * cyclobenzaprine (FLEXERIL) 10 MG tablet(Started 10/22/2010) Take 1 Tab by mouth 3 times daily as needed for Muscle Spasms. 1 refill left * hydrocodone-acetaminophen (NORCO) 5-325 MG tablet(Started 12/11/2010) Take 1 Tab by mouth every 4 hours as needed for Pain. 1 refill left * diclofenac sodium EC (VOLTAREN) 75 MG tablet(Started 03/07/2014) Take 1 Tab by mouth 2 times daily. 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 Pulse 68 10/22/2010 2:45 PM RETORT FIREMAN Temperature 36.6 C (97.8 F) 10/22/2010 2:45 PM RETORT FIREMAN Respiratory Rate 16 10/22/2010 2:45 PM RETORT FIREMAN Oxygen Saturation 97% 10/22/2010 2:45 PM RETORT FIREMAN Inhaled Oxygen Concentration - - Weight 129.7 kg (286 lb) 10/22/2010 7:02 AM RETORT FIREMAN Height 182.9 cm (6') 10/22/2010 7:02 AM RETORT FIREMAN Body Mass Index 38.79 10/22/2010 7:02 AM RETORT FIREMAN Procedures * CARDIAC RHYTHM STRIP ORDER(Performed 10/24/2010) * XR SPINE 1 VIEW(Performed 10/22/2010) Performed for Cervical spondylosis without myelopathy Results * CARDIAC RHYTHM STRIP ORDER (10/24/2010 5:47 AM RETORT FIREMAN) Narrative Procedure Note Document, Scanned - 10/23/2010 8:20 PM RETORT FIREMAN Scanned Document CARDIAC SERVICES ORD ERABLES * XR SPINE 1 VIEW (10/22/2010 9:46 AM RETORT FIREMAN) Anatomical Region Laterality Modality Spine Radio Fluoroscop y 10/22/2010 9:50 AM RETORT FIREMAN Impressions 10/22/2010 10:11 AM RETORT FIREMAN Intra-Op evaluation. Narrative 10/22/2010 10:11 AM RETORT FIREMAN Cervical spine, single lateral view in OR. HISTORY: Intra-Op evaluation. A single lateral view of the cervical spine shows instruments and a metallic needle projected at the C4-C5 interspace anteriorly. Procedure Note Dave Cyr MD - 10/22/2010 Cervical spine, single lateral view in OR. HISTORY: Intra-Op evaluation. A single lateral view of the cervical spine shows instruments and a metallic needle projected at the C4-C5 interspace anteriorly. IMPRESSION Intra-Op evaluation. Bruce Dowd MD DIAGNOSTIC IMAGING O [facility] Care Teams Functional Support Analyst Relationship Specialty Start Date End Date Jas Alcala MD [address] [place] [address] PCP - General 10/22/10 Jas Alcala MD Internal Medicine 09/23/10
--- OUTSIDE RECORDS SUMMARY | 2024-12-07 16:21 | XMS_ITS | Encounter Summary ---
Author Organization [facility] Address [address] [place] [address] Care Team Providers Care Machine Bunch Maker Name Role Phone Jas Alcala MD Primary Care Provider [phone] Lucio Rosas MD Unavailable Bianca Hunter MD Unavailable [phone] Encounter Details Date Type Department Care Team (Late st Contact Info) Description 12/07/2024 9:00 AM CHILD DEVELOPMENT TEACHER Lab [facility] at [address] [id number] Anemia, unspecified type Social History Tobacco Use Types Packs/Day Years Used Date Smoking Tobacco: Former Cigarettes 2019 Smokeless Tobacco: Never Alcohol Use Standard [...] on file Legal Sex Male 9:38 AM CHILD DEVELOPMENT TEACHER Gender Identity Not on file Sexual Orientation Not on file 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 Not on file Not on file 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 Not on file Not on file Not on file documented as of this encounter Plan of Treatment Upcoming Encounters Date Type Department Care Team (Latest Contact Info) Description 12/13/2024 11:00 AM CHILD DEVELOPMENT TEACHER Hospital Encounter [facility] [place] [address] [facility] [address] [place] [address] Nikolay Dunn MD [address] [facility] [place] [address] Malignant neoplasm of lower third of esophagus (CMS/HCC) ([facility]) 12/13/2024 11:00 AM CHILD DEVELOPMENT TEACHER - 12/13/2024 12:00 PM CHILD DEVELOPMENT TEACHER Surgery [facility] [place] [address] [facility] [address] [place] [address] Nikolay Dunn MD [address] [place] [address] EGD/EUS/EMR SC/OA/Interventiona l Pending Results Name Type Priority Associated Diagnoses Date /Time Crossmatch Lab Routine 12/07/2024 9:2 9 AM CHILD DEVELOPMENT TEACHER Scheduled Procedures Name Priority Associated Diagnoses Date/Ti me ESOPHAGOGASTRODUODENOSCOPY Malignant neoplasm of lower third of esophagus (CMS/HCC) ([facility]) 12/13/2024 11:00 AM CHILD DEVELOPMENT TEACHER documented as of this encounter Procedures Procedure Name Priority Date/Time Associated Diagnosis Comments EGFR Routine 12/07/2024 9:29 AM CHILD DEVELOPMENT TEACHER Anemia, unspecified type DIFFERENTIAL AUTO Routine 12/07/2024 9:2 9 AM CHILD DEVELOPMENT TEACHER Anemia, unspecified type IRON PROFILE W/ IBC Routine 12/07/2024 9 :29 AM CHILD DEVELOPMENT TEACHER Anemia, unspecified type CBC WITH AUTO DIFFERENTIAL Routine 12/07/2024 9:29 AM CHILD DEVELOPMENT TEACHER Anemia, unspecified type ABO/RH Routine 12/07/2024 9:29 AM CHILD DEVELOPMENT TEACHER Anemia, unspecified type RETICULOCYTES Routine 12/07/2024 9:29 AM CHILD DEVELOPMENT TEACHER Anemia, unspecified type CROSSMATCH Routine 12/07/2024 9:29 AM CHILD DEVELOPMENT TEACHER Anemia, unspecified type ANTIBODY SCREEN Routine 12/07/2024 9:29 AM CHILD DEVELOPMENT TEACHER Anemia, unspecified type TYPE AND SCREEN Routine 12/07/2024 9:29 AM CHILD DEVELOPMENT TEACHER Anemia, unspecified type FERRITIN Routine 12/07/2024 9:29 AM CHILD DEVELOPMENT TEACHER Anemia, unspecified type COMPREHENSIVE METABOLIC PANEL Routine 12/07/2024 9:29 AM CHILD DEVELOPMENT TEACHER Anemia, unspecified type documented in this encounter Results * Crossmatch (12/07/2024 9:29 AM CHILD DEVELOPMENT TEACHER) Crossmatch Compatible [facility] Unit number for crossmatch [id number] [facility] Blood 12/07/2024 9:29 AM CHILD DEVELOPMENT TEACHER 12/07/2024 10:12 AM CHILD DEVELOPMENT TEACHER Nena Cano NP LAB BLOOD BANK TEST ORDERAB LES Final Result [facility] [address] [facility] Department [place] [address] * (ABNORMAL) eGFR (12/07/2024 9:29 AM CHILD DEVELOPMENT TEACHER) eGFR 32(L) >=60 mL/min/1. 73 m2 Comment: [...] was last reviewed 2021. Testing performed by: [address] [address] Blood 12/07/2024 9:29 AM CHILD DEVELOPMENT TEACHER 12/07/2024 9:29 AM CHILD DEVELOPMENT TEACHER us Nena Cano EMBEDDED ENGINEER LAB BLOOD ORDERABLES Final Result [facility] [address] [place] [address] * (ABNORMAL) Differential, auto (12/07/2024 9:29 AM CHILD DEVELOPMENT TEACHER) Neutrophil abs 2.8 1.5 - 6.5 K/cumm Comment:Testing performed by : [address] [address] Imm gran abs 0.0 0.0 - 0.1 K/cumm IS[facility]AC Comment:Testing performed by : [address] [address] Lymphocyte abs 0.6(L) 0.8 - 3.3 K/cumm IS[facility] Comment:Testing performed by : [address] [address] Monocyte abs 0.6 0.2 - 0.8 K/cumm ISAAC Comment:Testing performed by : [address] [address] Eosinophil abs 0.4 0.0 - 0.5 K/cumm IS[facility]AC Comment:Testing performed by : [address] [address] Basophil abs 0.1 0.0 - 0.1 K/cumm ISAAC Comment:Testing performed by : [address] [address] Neutrophil pct 62.7 % [facility] Comment: Interpretive Data Percent cell count reference ranges are not reported, since discordance with absolute values may lead to misinterpretation of CBC data. Current Interpretive Data was last revised on 2018. Testing performed by: [address] [address] Imm gran pct 0.5 % [facility] Comment: Interpretive Data Percent cell count reference ranges are not reported, since discordance with absolute values may lead to misinterpretation of CBC data. Current Interpretive Data was last revised on 2018. Testing performed by: [address] [address] Lymphocyte pct 14.3 % [facility] Comment: Interpretive Data Percent cell count reference ranges are not reported, since discordance with absolute values may lead to misinterpretation of CBC data. Current Interpretive Data was last revised on 2018. Testing performed by: [address] [address] Monocyte pct 12.5 % [facility] Comment: Interpretive Data Percent cell count reference ranges are not reported, since discordance with absolute values may lead to misinterpretation of CBC data. Current Interpretive Data was last revised on 2018. Testing performed by: [address] [address] Eosinophil pct 8.9 % [facility] Comment: Interpretive Data Percent cell count reference ranges are not reported, since discordance with absolute values may lead to misinterpretation of CBC data. Current Interpretive Data was last revised on 2018. Testing performed by: [address] [address] Basophil pct 1.1 % [facility] Comment: Interpretive Data Percent cell count reference ranges are not reported, since discordance with absolute values may lead to misinterpretation of CBC data. Current Interpretive Data was last revised on 2018. Testing performed by: [address] [address] Blood 12/07/2024 9:29 AM CHILD DEVELOPMENT TEACHER 12/07/2024 9:29 AM CHILD DEVELOPMENT TEACHER Nena Mamta Golec EMBEDDED ENGINEER LAB BLOOD ORDERABLES Final Result [facility] [address] [place] [address] * Antibody screen (12/07/2024 9:29 AM CHILD DEVELOPMENT TEACHER) Divina, indirect, Gel Interpretation Negative ABSC Comment:Testing performed by : [address] [address] Blood 12/07/2024 9:29 AM CHILD DEVELOPMENT TEACHER 12/07/2024 10:12 AM CHILD DEVELOPMENT TEACHER Narrative [facility] - 12/07/2024 10:53 AM CHILD DEVELOPMENT TEACHER Has the patient had Daratumumab or Isatuximab in the past 6 months?->Unknown Nena Cano EMBEDDED ENGINEER LAB BLOOD BANK TEST ORDERAB LES Final Result Performing Organization Address [facility] Co de Phone Number [address] [place] [address] * ABO/Rh (12/07/2024 9:29 AM CHILD DEVELOPMENT TEACHER) Pathologist [facility] ABO/Rh A Positive Comment:Testing performed by : [address] [address] Blood 12/07/2024 9:29 AM CHILD DEVELOPMENT TEACHER 12/07/2024 10:12 AM CHILD DEVELOPMENT TEACHER Narrative IS[facility] - 12/07/2024 10:53 AM CHILD DEVELOPMENT TEACHER Has the patient had Daratumumab or Isatuximab in the past 6 months?->Unknown Nena Cano EMBEDDED ENGINEER LAB BLOOD BANK TEST ORDERAB LES Final Result Performing Organization Address City/[facility]/ZIP Co de Phone Number DAY[address] [place] [address] * (ABNORMAL) CBC with auto differential (12/07/2024 9:29 AM CHILD DEVELOPMENT TEACHER) WBC 4.4 3.8 - 9.9 K/cumm Comment:Testing performed by : [address] [place] [address] Hgb 8.0(L) 13.0 - 17.5 g/dL IS[facility] Comment:Testing performed by : [address] [address] Hct 27.2(L) 38.9 - 50.3 % [facility] Comment:Testing performed by : [address] [address] Plt 312 150 - 400 K/cumm ISAAC Comment:Testing performed by : [address] [address] MPV 8.5(L) 9.1 - 12.3 fL [facility] Comment:Testing performed by : [address], [address] RBC 2.78(L) 4.30 - 5.80 M/cumm IS[facility]AC Comment:Testing performed by : [address] [address] MCV 97.8(H) 81.3 - 96.4 fL [facility] Comment:Testing performed by : [address] [address] MCH 28.8 27.1 - 33.3 pg [facility] Comment:Testing performed by : [address] [address] MCHC 29.4(L) 32.3 - 35.7 g/dL ISAAC Comment:Testing performed by : [address], [address] RDW CV 16.7(H) 11.1 - 14.9 % [facility] Comment:Testing performed by : [address], [address] RDW SD 59.7(H) 35.7 - 48.1 fL [facility] Comment:Testing performed by : [address] [address] NRBC abs 0.00 0.00 - 0.01 K/cumm ISAAC Comment:Testing performed by : [address], [address] Blood 12/07/2024 9:29 AM CHILD DEVELOPMENT TEACHER 12/07/2024 9:29 AM CHILD DEVELOPMENT TEACHER us Nena Cano NP LAB BLOOD ORDERABLES Final Result [facility] [address] [facility] Department [place] [address] * (ABNORMAL) Comprehensive metabolic panel (12/07/2024 9:29 AM CHILD DEVELOPMENT TEACHER) Sodium 142 135 - 145 mmol/L Comment:Testing performed by : [address] [address] Potassium, pl 4.3 3.3 - 4.9 mmol/L [facility] Comment:Testing performed by : [address] [address] Chloride 107 97 - 110 mmol/L IS[facility] Comment:Testing performed by : [address] [address] CO2 26 22 - 32 mmol/L IS[facility] Comment:Testing performed by : [address] [address] Anion gap 9 2 - 15 mmol/L ISAAC Comment:Testing performed by : [address] [address] BUN 14 6 - 25 mg/dL IS[facility]AC Comment:Testing performed by : [address] [address] Creatinine 2.10(H) 0.80 - 1.30 mg/dL ISAAC Comment:Testing performed by : [address] [address] Glucose 99 70 - 199 mg/dL ISAAC [...] was last revised 2022. Testing performed by: [address] [address] Calcium 8.8 8.5 - 10.3 mg/dL IS[facility]AC Comment:Testing performed by : [address] [address] Bilirubin, total <0.2 0.1 - 1.2 mg/dL IS[facility]AC Comment:Testing performed by : [address] [address] Protein, pl 6.2(L) 6.5 - 8.5 g/dL IS[facility]AC Comment:Testing performed by : [address] [address] Albumin 3.7 3.5 - 5.0 g/dL ISAAC Comment:Testing performed by : [address] [address] Alk phos 67 40 - 130 Units/L ISA[facility] Comment:Testing performed by : [address] [address] ALT 11 7 - 55 Units/L IS[facility] Comment:Testing performed by : [address] [address] AST 15 10 - 50 Units/L IS[facility]AC Comment:Testing performed by : [address] [address] Blood 12/07/2024 9:29 AM CHILD DEVELOPMENT TEACHER 12/07/2024 9:29 AM CHILD DEVELOPMENT TEACHER us Nena Cano EMBEDDED ENGINEER LAB BLOOD ORDERABLES Final Result [facility] [address] [facility] Department [place] [address] * Ferritin (12/07/2024 9:29 AM CHILD DEVELOPMENT TEACHER) Ferritin 284 30 - 400 ng/mL Comment:Testing performed by : [address] [address] Blood 12/07/2024 9:29 AM CHILD DEVELOPMENT TEACHER 12/07/2024 11:47 AM CHILD DEVELOPMENT TEACHER Nena Cano EMBEDDED ENGINEER LAB BLOOD ORDERABLES Final Result Performing Organization Address [facility] de Phone Number IS[facility] [place] [address] * (ABNORMAL) Reticulocyte Count (12/07/2024 9:29 AM CHILD DEVELOPMENT TEACHER) Retics, absolute 0.200(H) 0.020 - 0.087 M/cumm Comment:Testing performed by : [address] [address] Retics 7.2(H) 0.4 - 2.9 % [facility] SERNA Comment:Testing performed by : [address] [address] Reticulocyte Hgb 26.3(L) 30.5 - 38.0 pg ISAAC SERNA Comment:Testing performed by : [address] [address] Blood 12/07/2024 9:29 AM CHILD DEVELOPMENT TEACHER 12/07/2024 9:29 AM CHILD DEVELOPMENT TEACHER Nena Cano EMBEDDED ENGINEER LAB BLOOD ORDERABLES Final Result Performing Organization Address [facility] de Phone Number [address] [place] [address] * (ABNORMAL) Iron profile w/ IBC (12/07/2024 9:29 AM CHILD DEVELOPMENT TEACHER) Iron 221(H) 50 - 150 mcg/dL Comment:Testing performed by : [address] [address] TIBC 250 250 - 400 mcg/dL IS[facility]AC SERNA Comment:Testing performed by : [address] [address] Transferrin saturation 88(H) 20 - 50 % [facility] SERNA Comment:Testing performed by : [address] [address] Blood 12/07/2024 9:29 AM CHILD DEVELOPMENT TEACHER 12/07/2024 11:47 AM CHILD DEVELOPMENT TEACHER Nena Cano EMBEDDED ENGINEER LAB BLOOD ORDERABLES Final Result [facility] [address] [facility] Department [place] [address] documented in this encounter Visit Diagnoses Diagnosis Malignant neoplasm of lower third of esophagus (CMS/HCC) (HCC) Malignant neoplasm of lower third of esophagus Anemia, unspecified type Malignant neoplasm of lower third of esophagus (CMS/HCC) (HCC) Malignant neoplasm of lower third of esophagus documented in this encounter Orders Appointment Requests Count Last Ordered Date Fi rst Ordered Date ONCBCN LAB APPOINTMENT 1 12/07/2024 documented in this encounter Care Teams Machine Bunch Maker Relationship Specialty Start Date End Date Jas Alcala MD PCP - General Internal Medicine 02/26/18 Lucio Rosas MD [address] [address] Consulting Physician Gastroenterology 11/28/24 Bianca Hunter MD [address] [place] [address] Medical Oncologist/Oracle Technical Developer Medical Oncology 12/07/24 documented as of this encounter
--- OUTSIDE RECORDS SUMMARY | 2024-12-07 16:22 | XMS_ITS | Clinical Summary ---
Author Organization [facility] [employer] Address [address] [facility] [place] [place] [address] Care Team Providers Care Sawmill Production Worker Name Role Phone Jas Alcala MD Unavailable [phone] Jas Alcala MD Primary Care Provider [phone] Source Comments [facility],non-owned Affiliates and Associated Physician Practices is amultiple site organization consisting of ambulatory clinics and hospital sitesin [place], [place], [place] and [place]. This disclosure is being madepursuant to the Care Everywhere program and may not contain all information available regarding this patient. Last updated 18.[facility] Allergies Active Allergy Reactions Criticality Noted Date [...] Comments Blood Pressure 150/99 10/22/2010 2:45 PM BOSS MINER Pulse 68 10/22/2010 2:45 PM BOSS MINER Temperature 36.6 C (97.8 F) 10/22/2010 2:45 PM BOSS MINER Respiratory Rate 16 10/22/2010 2:45 PM BOSS MINER Oxygen Saturation 97% 10/22/2010 2:45 PM BOSS MINER Inhaled Oxygen Concentration - - Weight 129.7 kg (286 lb) 10/22/2010 7:02 AM BOSS MINER Height 182.9 cm (6') 10/22/2010 7:02 AM BOSS MINER Body Mass Index 38.79 10/22/2010 7:02 AM BOSS MINER Plan of Treatment Health Maintenance Due Date Last Done Comments COLOGUARD (AGES 45-75) - COL ON CA SCREENING 1950 COLON MONITORING 1950 COLONOSCOPY - COLON CA SCREENING 1950 CT COLONOGRAPHY - COLON CA SCREENING 1950 Colorectal Cancer Screening 1950 FIT - COLON CA SCREENING 1950 FLEX SIG - COLON CA SCREENING 1950 LIPID TESTING 1950 HEPATITIS C SCREENING 01/13/1968 DTAP/TDAP/TD VACCINES (1 - Tdap) 1969 PNEUMOCOCCAL VACCINE 50+ (1 of 2 - PCV) 1969 ZOSTER VACCINE (1 of 2) 01/18/2000 AAA SCREENING 2015 COVID-19 VACCINE ( - 2023-2 5 season) 2024 INFLUENZA VACCINE (#1) 2024 DEPRESSION SCREENING 11/02/2024 Respiratory Syncytial Virus (RSV) Vaccine Pt: or over 60 yrs (1 - 1-dose 75+ series) 2025 HEPATITIS B VACCINE Aged Out No longe r eligible based on patient's age to complete this topic HIB VACCINE Aged Out No longer eligi ble based on patient's age to complete this topic HPV VACCINE Aged Out No longer eligi ble based on patient's age to complete this topic MENINGOCOCCAL (Group B) VACCINE Aged Out No longer eligible based on patient's age to complete this topic MENINGOCOCCAL VACCINE Aged Out No rufus gretta eligible based on patient's age to complete this topic Advance Directives * Full Code (Latest Code Status on File) Date Activated Date Inactivated Comments 10/22/2010 2:20 PM 10/23/2010 7:05 AM Care Teams Sawmill Production Worker Relationship Specialty Start Date End Date Jas Alcala MD [address] [place] [address] PCP - General 10/22/10 Jas Alcala MD Internal Medicine 09/23/10
[2024-12-07 16:34] LABS: Hematocrit 31.2 % (42.0-52.0); Hemoglobin 9.1 g/dL (14.0-18.0); Mean Corpuscular HGB Conc 29.2 g/dl (32-36); Mean Corpuscular Hemoglobin 29.7 pg (26-34); Mean Platelet Volume 9.5 fl (7.4-10.4); Platelet Count Result 337 k/mm3 (150-375); Red Blood Count 3.06 M/mm3 (4.6-6.20); Red Cell Distribution Width 16.7 % (11.5-14.5); White Blood Count 4.8 K/mm3 (4.5-10.0)
[2024-12-07 16:44] LABS: Alanine Aminotransferase 15 U/L (6-50); Albumin Level 3.7 g/dL (3.5-5.1); Alkaline Phosphatase 54 U/L (38-126); Anion Gap 10 mmol/L (4-12); Aspartate Amino Transferase 30 U/L (17-59); Bilirubin,Total 0.8 mg/dL (0.2-1.3); Blood Urea Nitrogen 14 mg/dL (9-20); Calcium 8.6 mg/dL (8.4-10.2); Carbon Dioxide 24 mmol/L (22-30); Chloride 105 mmol/L (98-107); Estimated Glomerular Filt Rate 35; Glucose 92 mg/dL (65-110); Potassium 4.1 mmol/L (3.4-5.0); Sodium 139 mmol/L (137-145)
== END 2024-12-07 16:16 | disposition home or self-care (01) ==
LOC: ANHLAB 16:18
PROVIDERS: PCP Internal Medicine; Visit Provider Internal Medicine
DX: I10 Essential (primary) hypertension (principal); Z86.711 Personal history of pulmonary embolism
CPT/HCPCS: 36415; 80053; 85027

== ENCOUNTER 2025-03-06 10:51 | Outpatient (CLI) | payer MEDICARE, SELFPAY ==
[2025-03-06 11:40] LABS: INR 2.2; Prothrombin Time 25.4 Seconds (11.1-14.7)
--- OUTSIDE RECORDS SUMMARY | 2025-03-06 11:48 | XMS_ITS | Clinical Summary ---
Author Organization [facility] Address [address] [place] [address] Phone Care Team Providers Care Manager Floor Name Role Phone Jas Alcala MD Primary Care Provider [phone] Allergies Active Allergy Reactions Criticality Noted Date [...] on file Legal Sex Male 3:47 PM OVEN LOADER Gender Identity Not on file Sexual Orientation Not on file Last Filed Vital Signs Vital Sign Reading Time Taken Comments Blood Pressure 142/62 12/29/2019 2:51 PM OVEN LOADER Pulse 62 12/29/2019 2:51 PM OVEN LOADER Temperature 36.4 C (97.6 F) 12/29/2019 2:51 PM OVEN LOADER Respiratory Rate 18 12/29/2019 2:51 PM OVEN LOADER Oxygen Saturation 99% 12/29/2019 2:51 PM OVEN LOADER Inhaled Oxygen Concentration - - Weight 137 kg (302 lb) 12/29/2019 2:51 PM OVEN LOADER Height 182.9 cm (6') 12/29/2019 2:51 PM OVEN LOADER Body Mass Index 40.96 12/29/2019 2:51 PM OVEN LOADER Plan of Treatment Health Maintenance Due Date [...] age to complete this topic Care Teams Manager Floor Relationship Specialty Start Date End Date Jas Alcala MD PCP - General Internal Medicine 11/09/19
--- OUTSIDE RECORDS SUMMARY | 2025-03-06 11:49 | XMS_ITS | Encounter Summary ---
Author Organization [facility] Healthcare Address [address] [place] [address] Care Team Providers Care Atv Mechanic Name Role Phone Jas Alcala MD Primary Care Provider [phone] Lucio Rosas MD Unavailable Bianca Hunter MD Unavailable [phone] Hero Pinedo MD Unavailable [phone] Jas Alcala MD Primary Care Provider [phone] Lon Tomas MD Unavailable [phone] Jaycee Teresa MD Unavailable [phone] Encounter Details Date Type Department Care Team (Late st Contact Info) Description 05/07/2022 Orders Only [facility] Cardiac Catheterization Lab [address] [place] [address] Bryon Potter MD [address] [place], [place] [id number] Social History Tobacco Use Types Packs/Day Years [...] on file Legal Sex Male 9:38 AM MARINE SPECIALIST Gender Identity Not on file Sexual Orientation Not on file 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 Not on file Not on file Not on file documented as of this encounter Plan of Treatment Not on file documented as of this encounter Visit Diagnoses Not on filedocumented in this encounter Care Teams Atv Mechanic Relationship Specialty Start Date End Date Jas Alcala MD PCP - General Internal Medicine 02/26/18 01/03/25 Jas Alcala MD [address] [place] [address] PCP - General Internal Medicine 01/04/25 Lucio Rosas MD [address] [address] Consulting Physician Gastroenterology 11/28/24 Bianca Hunter MD [address] [facility] [address] [place] [address] Medical Oncologist/Parachute Line Tier Medical Oncology 12/07/24 Hero Pinedo MD [address] [address] Radiation Oncologist Radiation Oncology 12/28/24 Lon Tomas MD [address] [place] [address] Consulting Physician Urology 01/04/25 Jaycee Teresa MD [address] [place] [address] Consulting Physician Cardiology 01/09/25 documented as of this encounter
--- OUTSIDE RECORDS SUMMARY | 2025-03-06 11:49 | XMS_ITS | Data Portability ---
Author Organization [facility], Main Office Address [address] [place] [address] Care Team Providers Care Government Teacher Name Role Phone BUBBA ALCALA Primary Care Provider [phone] BUBBA ALCALA Referring Provider Assessment Encounter Date Assessment Date Assessment LastModified by Organization Details LastModified Time 08/04/2023 08/04/2023 Orders for INR given continue current therapy blood work avoid nonsteroidals will consider SLG T 2 inhibitor Follow-up in 3 months [email or web address] Not available 08/16/2023 17:34:29 09/29/2023 09/29/2023 The [...] we will try to get that result Not available 11/09/2023 21:20:45 Plan of Treatment Reminders Order Date Submit Date Provider Last Modified By Organization Details Last Modified Time Details Appointments None recorded. Lab PT/INR 2023 024 [email or web address] [facility] [address], [address], [place], [address], 4 17:00:45 CBC w/ auto diff 2023 024 [facility] (Lab), [address] [place], [address], 4 18:14:03 lipid panel, serum 2023 024 [facility] (Lab), [address] [place], [address], 4 19:14:27 CMP, serum or plasma 2023 024 [facility] (Lab), [address] [place], [address], 4 19:14:32 lipid panel, serum 2022 023 [facility] (Lab), [address] [place], [address], 3 19:23:51 CBC w/ auto diff 2022 023 [facility] (Lab), [address] [place], [address], 3 18:15:09 CMP, serum or plasma 2022 023 [facility] (Lab), [address] [place], [address], 3 19:23:45 PSA, serum or plasma 2022 023 [facility] (Lab), [address] [place], [address], 3 04:11:09 urinalysis, dipstick 2022 023 [email or web address] [facility], [address] [facility] [address], [place], [address], 3 11:47:31 PT/INR 2022 023 [email or web address] [facility] [address], [address], [place], [address], 3 11:40:20 Referral None recorded. Procedures colonoscopy screening (PROC) 2023 024 [email or web address] Dinah Paz MD, [address] [facility], [address], [place], [address], 4 09:01:32 injection/a spiration joint/bursa (PROC) 2022 023 [email or web address] In-Office Order, Internal Use Only DO Not Attach Compendium DO Not Attach Compendium, Do Not Delete/merge, [id number] 3 11:05:49 Surgeries None recorded. Imaging XR, wrist 2022 023 [email or web address] [facility], [address], [place], [address], 3 11:41:42 US, bladder 2022 023 [email or web address] [facility], [address] [facility] [address], [place], [address], 3 11:47:49 Medication Orders bupivacaine HCl 0.5 % (5 mg/mL) injection solution 2022 023 [email or web address] [facility] [place], [address] [place], [address], 3 11:41:42 Kenalog 10 mg/mL suspension for injection 2022 023 [email or web address] [id number], [address] [place], [address], 11:41:42 prednisone 10 mg tablets in a dose pack 2022 023 [email or web address] [facility], [address] [place], [address], 11:41:42 Patient TargetsNo targets recorded. Patient InstructionsNo instructions recorded. Reason for Referral None Reported. Results Created Date Observation Date Name Description Value Unit Range Abnormal Flag Note LastModifiedBy Organization Detail LastModifiedTime 04/22/20 23 04/22/2023 PT/IN R PT 22.1 Not Available [facility] [address], [place], [address], 04/22/2023 15:37:32 04/22/20 23 04/22/2023 PT/IN R INR 1.8 Not Available [facility] [address], [place], [address], 04/22/2023 15:37:32 05/06/20 23 05/06/2023 PT/IN R PT 27.2 Not Available [facility] [address], [place], [address], 05/06/2023 10:56:39 05/06/20 23 05/06/2023 PT/IN R INR 2.3 Not Available [facility] [address] [facility] [address], [place], [address], 05/06/2023 10:56:39 05/13/20 23 05/13/2023 urina lysis , dipst ick Leukocytes (reference range: negative kenn/ l) Negati ve Not Available [facility] [address], [place], [address], 05/13/2023 10:12:04 05/13/20 23 05/13/2023 urina lysis , dipst ick Nitrite (reference rage: negative mg/dl) negati ve Not Available [facility] [address], [place], [address], 05/13/2023 10:12:04 05/13/20 23 05/13/2023 urina lysis , dipst ick Urobilinogen (reference range: 0.2-1 mg/dl) 0.2 Not Available [facility] [address] [place] [address] [place] [address], [place], [address], 05/13/2023 10:12:04 05/13/20 23 05/13/2023 urina lysis , dipst ick Protein (reference range: negative mg/dl) Negati ve Not Available [facility] [address], [place], [address], 05/13/2023 10:12:04 05/13/20 23 05/13/2023 urina lysis , dipst ick pH (reference range: 5-7) 5.5 Not Available [facility] [address], [place], [address], 05/13/2023 10:12:04 05/13/20 23 05/13/2023 urina lysis , dipst ick Blood (reference range: negative Jose G/ l) Negati ve Not Available [facility] [address], [place], [address], 05/13/2023 10:12:04 05/13/20 23 05/13/2023 urina lysis , dipst ick Specific Burton (reference range: 1.005-1.030) 1.020 Not Available [facility] [address], [place], [address], 05/13/2023 10:12:04 05/13/20 23 05/13/2023 urina lysis , dipst ick Ketone (reference range: negative mg/dl) Negati ve Not Available [facility] [address], [place], [address], 05/13/2023 10:12:04 05/13/20 23 05/13/2023 urina lysis , dipst ick Bilirubin (reference range: negative mg/dl) Negati ve Not Available [facility] [address], [place], [address], 05/13/2023 10:12:04 05/13/20 23 05/13/2023 urina lysis , dipst ick Glucose (reference range: negative mg/dl) Negati ve Not Available [facility] [address], [place], [address], 05/13/2023 10:12:04 05/13/20 23 05/13/2023 urina lysis , dipst ick Appearance Clear Not Available [facility] [address], [place], [address], 05/13/2023 10:12:04 05/13/20 23 05/13/2023 urina lysis , dipst ick Color Yellow Not Available [facility] [address], [place], [address], 05/13/2023 10:12:04 06/04/20 23 06/04/2023 PT/IN R PT 45.5 Not Available [facility] [address], [place], [address], 06/04/2023 15:19:31 06/04/20 23 06/04/2023 PT/IN R INR 3.8 Not Available [facility] [address], [place], [address], 06/04/2023 15:19:31 06/17/20 23 06/17/2023 PT/IN R PT 21.7 Not Available [facility] [address], [place], [address], 06/17/2023 12:16:46 06/17/20 23 06/17/2023 PT/IN R INR 1.8 Not Available [facility] [address], [place], [address], 06/17/2023 12:16:46 07/01/20 23 07/01/2023 PT/IN R PT 43.4 Not Available [facility] [address], [place], [address], 07/01/2023 15:59:45 07/01/20 23 07/01/2023 PT/IN R INR 3.6 Not Available [facility] [address], [place], [address], 07/01/2023 15:59:45 07/15/20 23 07/15/2023 PT/IN R PT 31.1 Not Available [facility] [address], [place], [address], 07/15/2023 12:32:43 07/15/2007/15/2023 PT/IN R INR 2.6 Not Available [facility] [address], [place], [address], 07/15/2023 12:32:43 08/04/20 23 08/04/2023 CBC/C OMPLE TE BLD COUNT W/DIF F white blood cells 6.0 x10'3 /uL 4.2-10 .8 Not Available [facility] (Lab) [address] [place], [address], 08/04/2023 18:15:09 08/04/2008/04/2023 CBC/C OMPLE TE BLD COUNT W/DIF F red blood cells 4.69 x10'6 /uL 4.10-5 .80 Not Available [facility] (Lab) [address] [place], [address], 08/04/2023 18:15:09 08/04/2008/04/2023 CBC/C OMPLE TE BLD COUNT W/DIF F hemoglobin 13.5 g/dL 13.2-1 7.0 Not Available [facility] (Lab) [address] [place], [address], 08/04/2023 18:15:09 08/04/2008/04/2023 CBC/C OMPLE TE BLD COUNT W/DIF F hematocrit 42.7 % 39.3-5 0.0 Not Available [facility] (Lab) [address] [place], [address], 08/04/2023 18:15:09 08/04/2008/04/2023 CBC/C OMPLE TE BLD COUNT W/DIF F mean red cell volume 91.0 fL 80.0-9 7.0 Not Available [facility] (Lab) [address] [place], [address], 08/04/2023 18:15:09 08/04/20 23 08/04/2023 CBC/C OMPLE TE BLD COUNT W/DIF F mean red cell hemoglobin 28.8 pg 27.0-3 3.0 Not Available [facility] (Lab) [address] [place], [address], 08/04/2023 18:15:09 08/04/2008/04/2023 CBC/C OMPLE TE BLD COUNT W/DIF F mean RBC HGB concentratio n 31.6 g/dL 31.0-3 6.0 Not Available [facility] (Lab) [address] [place], [address], 08/04/2023 18:15:09 08/04/2008/04/2023 CBC/C OMPLE TE BLD COUNT W/DIF F red cell distribution width 15.9 % 11.8-1 5.5 high Not Available [facility] (Lab) [address] [place], [address], 08/04/2023 18:15:09 08/04/2008/04/2023 CBC/C OMPLE TE BLD COUNT W/DIF F platelets 282 x10'3 /uL 150-40 0 Not Available [facility] (Lab) [address] [place], [address], 08/04/2023 18:15:09 08/04/2008/04/2023 CBC/C OMPLE TE BLD COUNT W/DIF F mean platelet volume 9.2 fL 9.0-12 .4 Not Available [facility] (Lab) [address] [place], [address], 08/04/2023 18:15:09 08/04/20 23 08/04/2023 CBC/C OMPLE TE BLD COUNT W/DIF F neutrophils 50.4 % 39.0-7 2.0 Not Available [facility] (Lab) [address] [place], [address], 08/04/2023 18:15:09 08/04/2008/04/2023 CBC/C OMPLE TE BLD COUNT W/DIF F lymphocytes 21.0 % 16.0-4 7.0 Not Available [facility] (Lab) [address] [place], [address], 08/04/2023 18:15:09 08/04/2008/04/2023 CBC/C OMPLE TE BLD COUNT W/DIF F monocytes 12.3 % 5.0-12 .0 high Not Available [facility] (Lab) [address] [place], [address], 08/04/2023 18:15:09 08/04/2008/04/2023 CBC/C OMPLE TE BLD COUNT W/DIF F eosinophils 14.6 % 1.0-7. 0 high Not Available [facility] (Lab) [address] [place], [address], 08/04/2023 18:15:09 08/04/2008/04/2023 CBC/C OMPLE TE BLD COUNT W/DIF F basophils 1.2 % 0.0-2. 0 Not Available [facility] (Lab) [address] [place], [address], 08/04/2023 18:15:09 08/04/2008/04/2023 CBC/C OMPLE TE BLD COUNT W/DIF F immature granulocytes 0.5 % 0.00-0 .50 Not Available [facility] (Lab) [address] [place], [address], 08/04/2023 18:15:09 08/04/2008/04/2023 CBC/C OMPLE TE BLD COUNT W/DIF F neutrophils, absolute count 3.03 x10'3 /uL 1.5-8. 0 Not Available [facility] (Lab) [address] [place], [address], 08/04/2023 18:15:09 08/04/2008/04/2023 CBC/C OMPLE TE BLD COUNT W/DIF F lymphocytes, absolute count 1.26 x10'3 /uL 1.07-3 .43 Not Available [facility] (Lab) [address] [place], [address], 08/04/2023 18:15:09 08/04/2008/04/2023 CBC/C OMPLE TE BLD COUNT W/DIF F monocytes, absolute count 0.74 x10'3 /uL 0.29-0 .99 Not Available [facility] (Lab) [address] [place], [address], 08/04/2023 18:15:09 08/04/2008/04/2023 CBC/C OMPLE TE BLD COUNT W/DIF F eosinophils, absolute count 0.88 x10'3 /uL 0.02-0 .53 high Not Available [facility] (Lab) [address] [place], [address], 08/04/2023 18:15:09 08/04/2008/04/2023 CBC/C OMPLE TE BLD COUNT W/DIF F basophils, absolute count 0.07 x10'3 /uL 0.01-0 .08 Not Available [facility] (Lab) [address] [place], [address], 08/04/2023 18:15:09 08/04/2008/04/2023 CBC/C OMPLE TE BLD COUNT W/DIF F immature granulocytes ,absolute 0.03 x10'3 /uL 0.00-0 .05 Not Available [facility] (Lab) [address] [place], [address], 08/04/2023 18:15:09 08/04/2008/04/2023 CBC/C OMPLE TE BLD COUNT W/DIF F nucleated red blood cells 0.0 % -0 Not Available [facility] (Lab) [address] [place], [address], 08/04/2023 18:15:09 08/04/20 23 08/04/2023 CBC/C OMPLE TE BLD COUNT W/DIF F NRBC# 0.00 x10'3 /uL Not Available [facility] (Lab) [address] [place], [address], 08/04/2023 18:15:09 08/04/2008/04/2023 COMPR EHENS SHYAM METAB OLIC PANEL sodium 139 mmol/ L 137-14 5 Not Available [facility] (Lab) [address] [place], [address], 08/04/2023 19:23:45 08/04/20 23 08/04/2023 COMPR EHENS SHYAM METAB OLIC PANEL potassium 4.8 mmol/ L 3.5-5. 1 Not Available [facility] (Lab) [address] [place], [address], 08/04/2023 19:23:45 08/04/20 23 08/04/2023 COMPR EHENS SHYAM METAB OLIC PANEL chloride 102 mmol/ L 98-107 Not Available [facility] (Lab) [address] [place], [address], 08/04/2023 19:23:45 08/04/20 23 08/04/2023 COMPR EHENS SHYAM METAB OLIC PANEL carbon dioxide 28 mmol/ L 22-30 Not Available [facility] (Lab) [address] [place], [address], 08/04/2023 19:23:45 08/04/20 23 08/04/2023 COMPR EHENS SHYAM METAB OLIC PANEL anion gap 13.8 mmol/ L 14-22 low Not Available [facility] (Lab) [address] [place], [address], 08/04/2023 19:23:45 08/04/2008/04/2023 COMPR EHENS SHYAM METAB OLIC PANEL glucose 86 mg/dL 70-99 Not Available [facility] (Lab) [address] [place], [address], 08/04/2023 19:23:45 08/04/2008/04/2023 COMPR EHENS SHYAM METAB OLIC PANEL BUN 24 mg/dL 8-19 high Not Available [facility] (Lab) [address] [place], [address], 08/04/2023 19:23:45 08/04/2008/04/2023 COMPR EHENS SHYAM METAB OLIC PANEL creatinine 1.61 mg/dL 0.66-1 .25 high Not Available [facility] (Lab) [address] [place], [address], 08/04/2023 19:23:45 08/04/2008/04/2023 COMPR EHENS SHYAM METAB OLIC PANEL GFR 42 Refer ence Range : Pala ge GFR Healt hy Adult : >60 [...] years of age, a pedia tric GFR zacku helen is avail able on the [facility] websi te: [email or web address] :[email or web address] [email or web address] kam/pr ofess ional s/kdo qi/gf r_cal culat or Not Available [facility] (Lab) [address] [place], [address], 08/04/2023 19:23:45 08/04/2008/04/2023 COMPR EHENS SHYAM METAB OLIC PANEL alkaline phosphatase 91 U/L 38-126 Not Available [facility] (Lab) [address] [place], [address], 08/04/2023 19:23:45 08/04/20 23 08/04/2023 COMPR EHENS SHYAM METAB OLIC PANEL alanine aminotransfe rase 17 U/L 0-50 Not Available [facility] (Lab) [address] [place], [address], 08/04/2023 19:23:45 08/04/20 23 08/04/2023 COMPR EHENS SHYAM METAB OLIC PANEL aspartate aminotransfe rase 26 U/L 15-46 Not Available [facility] (Lab) [address] [place], [address], 08/04/2023 19:23:45 08/04/2008/04/2023 COMPR EHENS SHYAM METAB OLIC PANEL bilirubin, total 0.50 mg/dL 0.20-1 .30 Not Available [facility] (Lab) [address] [place], [address], 08/04/2023 19:23:45 08/04/20 23 08/04/2023 COMPR EHENS SHYAM METAB OLIC PANEL calcium 9.6 mg/dL 8.4-10 .2 Not Available [facility] (Lab) [address] [place], [address], 08/04/2023 19:23:45 08/04/2008/04/2023 COMPR EHENS SHYAM METAB OLIC PANEL total protein 7.4 g/dL 6.3-8. 2 Not Available [facility] (Lab) [address] [place], [address], 08/04/2023 19:23:45 08/04/2008/04/2023 COMPR EHENS SHYAM METAB OLIC PANEL albumin 4.2 g/dL 3.0-4. 4 Not Available [facility] (Lab) [address] [place], [address], 08/04/2023 19:23:45 08/04/20 23 08/04/2023 COMPR EHENS SHYAM METAB OLIC PANEL globulin 3.2 g/dL 2.6-4. 2 Not Available [facility] (Lab) [address] [place], [address], 08/04/2023 19:23:45 08/04/2008/04/2023 COMPR EHENS SHYAM METAB OLIC PANEL A/G ratio 1.3 ratio 1.0-2. 0 Not Available [facility] (Lab) [address] [place], [address], 08/04/2023 19:23:45 08/04/2008/04/2023 LIPID PANEL cholesterol 213 mg/dL 140-19 9 high NIH AYO NSUS RECOM MENDA TION FOR FAISAL STERO L: ADULT CHILD LOW RISK: <200 <170 BORDE RLINE : <200- 239 ----- HIGH RISK: >240 >200 Not Available [facility] (Lab) [address] [place], [address], 08/04/2023 19:23:51 08/04/20 23 08/04/2023 LIPID PANEL triglyceride s 171 mg/dL 0-150 high NIH AYO NSUS REPOR T RECOM MENDA TION FOR TRIGL YCERI JARVIS: ADULT CHILD LOW RISK: <150 ----- BODER LINE: 150-1 99 ----- HIGH RISK: >200 ----- Not Available [facility] (Lab) [address] [place], [address], 08/04/2023 19:23:51 08/04/20 23 08/04/2023 LIPID PANEL HDL cholesterol 58 mg/dL 40- Not Available [facility] (Lab) [address] [place], [address], 08/04/2023 19:23:51 08/04/2008/04/2023 LIPID PANEL LDL cholesterol, calculated 121 mg/dL 0-130 NIH AYO NSUS REPOR T RECOM MENDA TIONS FOR LDL: ADULT CHILD LOW RISK <130 <110 (OPTI MAL LDL) <100 ----- BORDE RLINE : 130-1 59 ----- HIGH RISK: >160 >130 A TRIGL YCERI DE RESUL T >400 INVAL IDATE S THE CALCU LATIO N FOR LDL FRACT IONAT ION - THE LDL RESUL T WILL NOT BE REPOR MYRTLE. Not Available [facility] (Lab) [address] [place], [address], 08/04/2023 19:23:51 08/04/20 23 08/05/2023 PSA, TOTAL PSA, total <0.064 NG/mL 0.00-4 .00 Not Available [facility] (Lab) [address] [place], [address], 08/05/2023 19:37:51 09/01/2009/01/2023 CBC/C OMPLE TE BLD COUNT W/DIF F white blood cells 5.8 x10'3 /uL 4.2-10 .8 Not Available [facility] (Lab) [address] [place], [address], 09/01/2023 16:47:48 09/01/2009/01/2023 CBC/C OMPLE TE BLD COUNT W/DIF F red blood cells 4.53 x10'6 /uL 4.10-5 .80 Not Available [facility] (Lab) [address] [place], [address], 09/01/2023 16:47:48 09/01/2009/01/2023 CBC/C OMPLE TE BLD COUNT W/DIF F hemoglobin 13.2 g/dL 13.2-1 7.0 Not Available [facility] (Lab) [address] [place], [address], 09/01/2023 16:47:48 09/01/2009/01/2023 CBC/C OMPLE TE BLD COUNT W/DIF F hematocrit 42.0 % 39.3-5 0.0 Not Available [facility] (Lab) [address] [place], [address], 09/01/2023 16:47:48 09/01/2009/01/2023 CBC/C OMPLE TE BLD COUNT W/DIF F mean red cell volume 92.7 fL 80.0-9 7.0 Not Available [facility] (Lab) [address] [place], [address], 09/01/2023 16:47:48 09/01/2009/01/2023 CBC/C OMPLE TE BLD COUNT W/DIF F mean red cell hemoglobin 29.1 pg 27.0-3 3.0 Not Available [facility] (Lab) [address] [place], [address], 09/01/2023 16:47:48 09/01/2009/01/2023 CBC/C OMPLE TE BLD COUNT W/DIF F mean RBC HGB concentratio n 31.4 g/dL 31.0-3 6.0 Not Available [facility] (Lab) [address] [place], [address], 09/01/2023 16:47:48 09/01/2009/01/2023 CBC/C OMPLE TE BLD COUNT W/DIF F red cell distribution width 15.6 % 11.8-1 5.5 high Not Available [facility] (Lab) [address] [place], [address], 09/01/2023 16:47:48 09/01/2009/01/2023 CBC/C OMPLE TE BLD COUNT W/DIF F platelets 315 x10'3 /uL 150-40 0 Not Available [facility] (Lab) [address] [place], [address], 09/01/2023 16:47:48 09/01/2009/01/2023 CBC/C OMPLE TE BLD COUNT W/DIF F mean platelet volume 8.8 fL 9.0-12 .4 low Not Available [facility] (Lab) [address] [place], [address], 09/01/2023 16:47:48 09/01/2009/01/2023 CBC/C OMPLE TE BLD COUNT W/DIF F neutrophils 54.1 % 39.0-7 2.0 Not Available [facility] (Lab) [address] [place], [address], 09/01/2023 16:47:48 09/01/2009/01/2023 CBC/C OMPLE TE BLD COUNT W/DIF F lymphocytes 19.7 % 16.0-4 7.0 Not Available [facility] (Lab) [address] [place], [address], 09/01/2023 16:47:48 09/01/2009/01/2023 CBC/C OMPLE TE BLD COUNT W/DIF F monocytes 14.1 % 5.0-12 .0 high Not Available [facility] (Lab) [address] [place], [address], 09/01/2023 16:47:48 09/01/2009/01/2023 CBC/C OMPLE TE BLD COUNT W/DIF F eosinophils 10.0 % 1.0-7. 0 high Not Available [facility] (Lab) [address] [place], [address], 09/01/2023 16:47:48 09/01/2009/01/2023 CBC/C OMPLE TE BLD COUNT W/DIF F basophils 1.4 % 0.0-2. 0 Not Available [facility] (Lab) [address] [place], [address], 09/01/2023 16:47:48 09/01/2009/01/2023 CBC/C OMPLE TE BLD COUNT W/DIF F immature granulocytes 0.7 % 0.00-0 .50 high Not Available [facility] (Lab) [address] [place], [address], 09/01/2023 16:47:48 09/01/2009/01/2023 CBC/C OMPLE TE BLD COUNT W/DIF F neutrophils, absolute count 3.14 x10'3 /uL 1.5-8. 0 Not Available [facility] (Lab) [address] [place], [address], 09/01/2023 16:47:48 09/01/2009/01/2023 CBC/C OMPLE TE BLD COUNT W/DIF F lymphocytes, absolute count 1.14 x10'3 /uL 1.07-3 .43 Not Available [facility] (Lab) [address] [place], [address], 09/01/2023 16:47:48 09/01/2009/01/2023 CBC/C OMPLE TE BLD COUNT W/DIF F monocytes, absolute count 0.82 x10'3 /uL 0.29-0 .99 Not Available [facility] (Lab) [address] [place], [address], 09/01/2023 16:47:48 09/01/2009/01/2023 CBC/C OMPLE TE BLD COUNT W/DIF F eosinophils, absolute count 0.58 x10'3 /uL 0.02-0 .53 high Not Available [facility] (Lab) [address] [place], [address], 09/01/2023 16:47:48 09/01/2009/01/2023 CBC/C OMPLE TE BLD COUNT W/DIF F basophils, absolute count 0.08 x10'3 /uL 0.01-0 .08 Not Available [facility] (Lab) [address] [place], [address], 09/01/2023 16:47:48 09/01/2009/01/2023 CBC/C OMPLE TE BLD COUNT W/DIF F immature granulocytes ,absolute 0.04 x10'3 /uL 0.00-0 .05 Not Available [facility] (Lab) [address] [place], [address], 09/01/2023 16:47:48 09/01/2009/01/2023 CBC/C OMPLE TE BLD COUNT W/DIF F nucleated red blood cells 0.0 % -0 Not Available [facility] (Lab) [address] [place], [address], 09/01/2023 16:47:48 09/01/2009/01/2023 CBC/C OMPLE TE BLD COUNT W/DIF F NRBC# 0.00 x10'3 /uL Not Available [facility] (Lab) [address] [place], [address], 09/01/2023 16:47:48 09/01/20 23 09/01/2023 BASIC METAB OLIC PANEL sodium 139 mmol/ L 137-14 5 Not Available [facility] (Lab) [address] [place], [address], 09/01/2023 18:00:43 09/01/2009/01/2023 BASIC METAB OLIC PANEL potassium 4.7 mmol/ L 3.5-5. 1 Not Available [facility] (Lab) [address] [place], [address], 09/01/2023 18:00:43 09/01/2009/01/2023 BASIC METAB OLIC PANEL chloride 106 mmol/ L 98-107 Not Available [facility] (Lab) [address] [place], [address], 09/01/2023 18:00:43 09/01/2009/01/2023 BASIC METAB OLIC PANEL carbon dioxide 29 mmol/ L 22-30 Not Available [facility] (Lab) [address] [place], [address], 09/01/2023 18:00:43 09/01/2009/01/2023 BASIC METAB OLIC PANEL anion gap 8.7 mmol/ L 14-22 low Not Available [facility] (Lab) [address] [place], [address], 09/01/2023 18:00:43 09/01/2009/01/2023 BASIC METAB OLIC PANEL glucose 77 mg/dL 70-99 Not Available [facility] (Lab) [address] [place], [address], 09/01/2023 18:00:43 09/01/2009/01/2023 BASIC METAB OLIC PANEL BUN 18 mg/dL 8-19 Not Available [facility] (Lab) [address] [place], [address], 09/01/2023 18:00:43 09/01/20 23 09/01/2023 BASIC METAB OLIC PANEL creatinine 1.70 mg/dL 0.66-1 .25 high Not Available [facility] (Lab) [address] [place], [address], 09/01/2023 18:00:43 09/01/2009/01/2023 BASIC METAB OLIC PANEL GFR 40 Refer ence Range : Pala ge GFR Healt hy Adult : >60 [...] or ethni c subgr oups, such as Lloyd nics. Outsi de the valid ated danay [...] calcu lator is avail able on the [facility] websi te: https :[email or web address] [email or web address] rg/pr ofess ional s/kdo qi/gf r_cal culat or Not Available [facility] (Lab) [address] [place], [address], 09/01/2023 18:00:43 09/01/2009/01/2023 BASIC METAB OLIC PANEL calcium 9.2 mg/dL 8.4-10 .2 Not Available [facility] (Lab) [address] [place], [address], 09/01/2023 18:00:43 09/01/2009/01/2023 PT/IN R PT 54.1 Not Available [facility] Internal Med [facility] [address], [place], [address], 09/01/2023 14:17:57 09/01/20 23 09/01/2023 PT/IN R INR 4.5 Not Available [facility] Internal Med [facility] [address], [place], [address], 09/01/2023 14:17:57 10/07/20 23 10/07/2023 PT/IN R PT 32.8 Not Available [facility] Internal Med [facility] [address], [place], [address], 10/07/2023 10:19:26 10/07/20 23 10/07/2023 PT/IN R INR 2.7 Not Available [facility] Internal Med [facility] [address], [place], [address], 10/07/2023 10:19:26 11/09/19 24 11/09/2023 CBC/C OMPLE TE BLD COUNT W/DIF F white blood cells 5.5 x10'3 /uL 4.2-10 .8 Not Available [facility] (Lab) [address] [place], [address], 11/09/2023 18:14:03 11/09/19 24 11/09/2023 CBC/C OMPLE TE BLD COUNT W/DIF F red blood cells 4.47 x10'6 /uL 4.10-5 .80 Not Available [facility] (Lab) [address] [place], [address], 11/09/2023 18:14:03 11/09/19 24 11/09/2023 CBC/C OMPLE TE BLD COUNT W/DIF F hemoglobin 13.0 g/dL 13.2-1 7.0 low Not Available [facility] (Lab) [address] [place], [address], 11/09/2023 18:14:03 11/09/19 24 11/09/2023 CBC/C OMPLE TE BLD COUNT W/DIF F hematocrit 41.4 % 39.3-5 0.0 Not Available [facility] (Lab) [address] [place], [address], 11/09/2023 18:14:03 11/09/19 24 11/09/2023 CBC/C OMPLE TE BLD COUNT W/DIF F mean red cell volume 92.6 fL 80.0-9 7.0 Not Available [facility] (Lab) [address] [place], [address], 11/09/2023 18:14:03 11/09/19 24 11/09/2023 CBC/C OMPLE TE BLD COUNT W/DIF F mean red cell hemoglobin 29.1 pg 27.0-3 3.0 Not Available [facility] (Lab) [address] [place], [address], 11/09/2023 18:14:03 11/09/19 24 11/09/2023 CBC/C OMPLE TE BLD COUNT W/DIF F mean RBC HGB concentratio n 31.4 g/dL 31.0-3 6.0 Not Available [facility] (Lab) [address] [place], [address], 11/09/2023 18:14:03 11/09/19 24 11/09/2023 CBC/C OMPLE TE BLD COUNT W/DIF F red cell distribution width 16.0 % 11.8-1 5.5 high Not Available [facility] (Lab) [address] [place], [address], 11/09/2023 18:14:03 11/09/19 24 11/09/2023 CBC/C OMPLE TE BLD COUNT W/DIF F platelets 257 x10'3 /uL 150-40 0 Not Available [facility] (Lab) [address] [place], [address], 11/09/2023 18:14:03 11/09/19 24 11/09/2023 CBC/C OMPLE TE BLD COUNT W/DIF F mean platelet volume 8.8 fL 9.0-12 .4 low Not Available [facility] (Lab) [address] [place], [address], 11/09/2023 18:14:03 11/09/19 24 11/09/2023 CBC/C OMPLE TE BLD COUNT W/DIF F neutrophils 51.5 % 39.0-7 2.0 Not Available [facility] (Lab) [address] [place], [address], 11/09/2023 18:14:03 11/09/19 24 11/09/2023 CBC/C OMPLE TE BLD COUNT W/DIF F lymphocytes 22.0 % 16.0-4 7.0 Not Available [facility] (Lab) [address] [place], [address], 11/09/2023 18:14:03 11/09/19 24 11/09/2023 CBC/C OMPLE TE BLD COUNT W/DIF F monocytes 10.8 % 5.0-12 .0 Not Available [facility] (Lab) [address] [place], [address], 11/09/2023 18:14:03 11/09/19 24 11/09/2023 CBC/C OMPLE TE BLD COUNT W/DIF F eosinophils 13.9 % 1.0-7. 0 high Not Available [facility] (Lab) [address] [place], [address], 11/09/2023 18:14:03 11/09/19 24 11/09/2023 CBC/C OMPLE TE BLD COUNT W/DIF F basophils 1.4 % 0.0-2. 0 Not Available [facility] (Lab) [address] [place], [address], 11/09/2023 18:14:03 11/09/19 24 11/09/2023 CBC/C OMPLE TE BLD COUNT W/DIF F immature granulocytes 0.4 % 0.00-0 .50 Not Available [facility] (Lab) [address] [place], [address], 11/09/2023 18:14:03 11/09/19 24 11/09/2023 CBC/C OMPLE TE BLD COUNT W/DIF F neutrophils, absolute count 2.85 x10'3 /uL 1.5-8. 0 Not Available [facility] (Lab) [address] [place], [address], 11/09/2023 18:14:03 11/09/19 24 11/09/2023 CBC/C OMPLE TE BLD COUNT W/DIF F lymphocytes, absolute count 1.22 x10'3 /uL 1.07-3 .43 Not Available [facility] (Lab) [address] [place], [address], 11/09/2023 18:14:03 11/09/19 24 11/09/2023 CBC/C OMPLE TE BLD COUNT W/DIF F monocytes, absolute count 0.60 x10'3 /uL 0.29-0 .99 Not Available [facility] (Lab) [address] [place], [address], 11/09/2023 18:14:03 11/09/19 24 11/09/2023 CBC/C OMPLE TE BLD COUNT W/DIF F eosinophils, absolute count 0.77 x10'3 /uL 0.02-0 .53 high Not Available [facility] (Lab) [address] [place], [address], 11/09/2023 18:14:03 11/09/19 24 11/09/2023 CBC/C OMPLE TE BLD COUNT W/DIF F basophils, absolute count 0.08 x10'3 /uL 0.01-0 .08 Not Available [facility] (Lab) [address] [place], [address], 11/09/2023 18:14:03 11/09/19 24 11/09/2023 CBC/C OMPLE TE BLD COUNT W/DIF F immature granulocytes ,absolute 0.02 x10'3 /uL 0.00-0 .05 Not Available [facility] (Lab) [address] [place], [address], 11/09/2023 18:14:03 11/09/19 24 11/09/2023 CBC/C OMPLE TE BLD COUNT W/DIF F nucleated red blood cells 0.0 % -0 Not Available [facility] (Lab) [address] [place], [address], 11/09/2023 18:14:03 11/09/19 24 11/09/2023 CBC/C OMPLE TE BLD COUNT W/DIF F NRBC# 0.00 x10'3 /uL Not Available [facility] (Lab) [address] [place], [address], 11/09/2023 18:14:03 11/09/19 24 11/09/2023 LIPID PANEL cholesterol 132 mg/dL 140-19 9 low NIH AYO NSUS RECOM MENDA TION FOR FAISAL STERO L: ADULT CHILD LOW RISK: <200 <170 BORDE RLINE : <200- 239 ----- HIGH RISK: >240 >200 Not Available [facility] (Lab) [address] [place], [address], 11/09/2023 19:14:27 11/09/19 24 11/09/2023 LIPID PANEL triglyceride s 92 mg/dL 0-150 NIH AYO NSUS REPOR T RECOM MENDA TION FOR TRIGL YCERI JARVIS: ADULT CHILD LOW RISK: <150 ----- BODER LINE: 150-1 99 ----- HIGH RISK: >200 ----- Not Available [facility] (Lab) [address] [place], [address], 11/09/2023 19:14:27 11/09/19 24 11/09/2023 LIPID PANEL HDL cholesterol 66 mg/dL 40- Not Available [facility] (Lab) [address] [place], [address], 11/09/2023 19:14:27 11/09/19 24 11/09/2023 LIPID PANEL LDL cholesterol, calculated 48 mg/dL 0-130 NIH AYO NSUS REPOR T RECOM MENDA TIONS FOR LDL: ADULT CHILD LOW RISK <130 <110 (OPTI MAL LDL) <100 ----- BORDE RLINE : 130-1 59 ----- HIGH RISK: >160 >130 A TRIGL YCERI DE RESUL T >400 INVAL IDATE S THE CALCU LATIO N FOR LDL FRACT IONAT ION - THE LDL RESUL T WILL NOT BE REPOR MYRTLE. Not Available [facility] (Lab) [address] [place], [address], 11/09/2023 19:14:27 11/09/19 24 11/09/2023 COMPR EHENS SHYAM METAB OLIC PANEL sodium 139 mmol/ L 137-14 5 Not Available [facility] (Lab) [address] [place], [address], 11/09/2023 19:14:32 11/09/19 24 11/09/2023 COMPR EHENS SHYAM METAB OLIC PANEL potassium 4.5 mmol/ L 3.5-5. 1 Not Available [facility] (Lab) [address] [place], [address], 11/09/2023 19:14:32 11/09/19 24 11/09/2023 COMPR EHENS SHYAM METAB OLIC PANEL chloride 104 mmol/ L 98-107 Not Available [facility] (Lab) [address] [place], [address], 11/09/2023 19:14:32 11/09/19 24 11/09/2023 COMPR EHENS SHYAM METAB OLIC PANEL carbon dioxide 27 mmol/ L 22-30 Not Available [facility] (Lab) [address] [place], [address], 11/09/2023 19:14:32 11/09/19 24 11/09/2023 COMPR EHENS SHYAM METAB OLIC PANEL anion gap 12.5 mmol/ L 14-22 low Not Available [facility] (Lab) [address] [place], [address], 11/09/2023 19:14:32 11/09/19 24 11/09/2023 COMPR EHENS SHYAM METAB OLIC PANEL glucose 87 mg/dL 70-99 Not Available [facility] (Lab) [address] [place], [address], 11/09/2023 19:14:32 11/09/19 24 11/09/2023 COMPR EHENS SHYAM METAB OLIC PANEL BUN 19 mg/dL 8-19 Not Available [facility] (Lab) [address] [place], [address], 11/09/2023 19:14:32 11/09/19 24 11/09/2023 COMPR EHENS SHYAM METAB OLIC PANEL creatinine 1.49 mg/dL 0.66-1 .25 high Not Available [facility] (Lab) [address] [place], [address], 11/09/2023 19:14:32 11/09/19 24 11/09/2023 COMPR EHENS SHYAM METAB OLIC PANEL GFR 46 Refer ence Range : Pala ge GFR Healt hy Adult : >60 [...] calcu lator is avail able on the [facility] websi te: https ://caprice [email or web address].bev johnson.o rg/pr ofess ional s/kdo qi/gf r_cal culat or Not Available [facility] (Lab) [address] [place], [address], 11/09/2023 19:14:32 11/09/19 24 11/09/2023 COMPR EHENS SHYAM METAB OLIC PANEL alkaline phosphatase 71 U/L 38-126 Not Available [facility] (Lab) [address] [place], [address], 11/09/2023 19:14:32 11/09/19 24 11/09/2023 COMPR EHENS SHYAM METAB OLIC PANEL alanine aminotransfe rase 18 U/L 0-50 Not Available [facility] (Lab) [address] [place], [address], 11/09/2023 19:14:32 11/09/19 24 11/09/2023 COMPR EHENS SHYAM METAB OLIC PANEL aspartate aminotransfe rase 30 U/L 15-46 Not Available [facility] (Lab) [address] [place], [address], 11/09/2023 19:14:32 11/09/19 24 11/09/2023 COMPR EHENS SHYAM METAB OLIC PANEL bilirubin, total 0.40 mg/dL 0.20-1 .30 Not Available [facility] (Lab) [address] [place], [address], 11/09/2023 19:14:32 11/09/19 24 11/09/2023 COMPR EHENS SHYAM METAB OLIC PANEL calcium 9.5 mg/dL 8.4-10 .2 Not Available [facility] (Lab) [address] [place], [address], 11/09/2023 19:14:32 11/09/19 24 11/09/2023 COMPR EHENS SHYAM METAB OLIC PANEL total protein 7.2 g/dL 6.3-8. 2 Not Available [facility] (Lab) [address] [place], [address], 11/09/2023 19:14:32 11/09/19 24 11/09/2023 COMPR EHENS SHYAM METAB OLIC PANEL albumin 4.1 g/dL 3.0-4. 4 Not Available [facility] (Lab) [address] [place], [address], 11/09/2023 19:14:32 11/09/19 24 11/09/2023 COMPR EHENS SHYAM METAB OLIC PANEL globulin 3.1 g/dL 2.6-4. 2 Not Available [facility] (Lab) [address] [place], [address], 11/09/2023 19:14:32 11/09/19 24 11/09/2023 COMPR EHENS SHYAM METAB OLIC PANEL A/G ratio 1.3 ratio 1.0-2. 0 Not Available [facility] (Lab) [address] [place], [address], 11/09/2023 19:14:32 11/09/19 24 11/09/2023 PT/IN R PT 27.1 Not Available [facility] Internal Med [facility] [address], [place], [address], 11/09/2023 16:05:16 11/09/19 24 11/09/2023 PT/IN R INR 2.3 Not Available [facility] Internal Med [facility] [address], [place], [address], 11/09/2023 16:05:16 02/03/20 24 02/03/2024 PROTI ME W/INR protime 17.9 secon ds 9.4-11 .9 high Not Available [facility] (Lab) [address] [place], [address], 02/03/2024 14:28:13 02/03/20 24 02/03/2024 PROTI ME [...] HOSPH OLIPI D SYNDR OME. Not Available [facility] (Lab) [address] [facility], [place], [address], 02/03/2024 14:28:13 02/08/20 24 02/08/2024 PROTI ME W/INR protime 18.2 secon ds 9.4-11 .9 high Not Available [facility] (Lab) [address] [place], [address], 02/08/2024 12:48:29 02/08/20 24 02/08/2024 PROTI ME [...] HOSPH OLIPI D SYNDR OME. Not Available [facility] (Lab) [address] [place], [address], 02/08/2024 12:48:29 02/15/20 24 02/15/2024 PROTI ME W/INR protime 18.0 secon ds 9.4-11 .9 high Not Available [facility] (Lab) [address] [place], [address], 02/15/2024 14:46:39 02/15/20 24 02/15/2024 PROTI ME [...] HOSPH OLIPI D SYNDR OME. Not Available [facility] ([facility]) [address], [place], [address], 02/15/2024 14:46:39 05/13/20 23 05/13/2023 US, bladd er No observ ation record ed. [email or web address] [facility] [address], [place], [address], 05/13/2023 12:47:41 05/19/2005/19/2023 XR, foot [facility] [address] [place] [address] Patien t Name: BRENNEN OLSON ion #: [id number] Sex: M : 1949 0 Dictat ed By: Nahun Preston Attend ing Physic fan: TAN ALCALA Orderi ng Physic fan: EDMOND ROMO Exam Date: 2022 10:51 AM Exam Name: XR FOOT LT 3V+ Admitt ing Diagno sis(es ): Clinic al Indica tion: PAIN LT TOE Compar dian: None FINDIN GS: AP, obliqu e, and [...] at 2022 12:25: 27 PM Page 1 [email or web address] [facility] (Imaging) [address], [place], [address], 09/18/2023 21:52:16 09/29/20 23 XR, wrist No observ ation record ed. [email or web address] [facility] [address] [facility], [place], [address], 09/29/2023 11:26:17 11/10/19 24 10/01/2023 CT, abdom en + pelvi s, w/wo contr ast No observ ation record ed. BARCODE Not Available 2023 12:57:54 Result Notes None recorded. Problems Name Problem SNOMED Code Status Onset Date Resolution Date Notes Provider Name and Address Organization Details Recorded Time Neck pain 97350724 Active 2022 NORA Servin null, [facility] 3 10:26:28 Pain of toe of left foot 52248627822 9108 Active 2022 Ingris Hunter RN null, [facility] 3 14:39:12 History of pulmonar y embolus 148038543 Active 2022 Bubba Alcala MD [address], [place], [address] , [facility] 3 17:30:45 Hyperlip idemia 82360622 Active 2022 Jocy Keene null, [facility] 3 14:51:26 Pain of left wrist 90826937632 9102 Active 2022 Marisel Montana CNA null, [facility] 3 10:42:51 Arthriti s of first carpomet acarpal joint of left hand 12947647616 48350 Active 2022 Marisel Montana CNA null, [facility] 3 11:03:17 Sprain of left wrist 28532353656 846686 Active 2022 BENEDICT Chase [address] [facility], [facility] [address], [place], [address] , [facility] 3 11:25:17 Rectal hemorrha ge 18588612 Active 2023 Aletha Prieto RMA null, [facility] 4 16:55:52 Laborato ry test result abnormal 919668810 Active 2023 Aletha Prieto RMA null, [facility] 4 12:04:11 Disorder of salivary gland 17619890 Active 2021 Not Available [facility] 3 03:26:28 Nonische guanaco congesti ve cardiomy opathy 31821430257 4 Active 2018 cardiac catheter ization EF 40- 45% 2018 Not Available [facility] 3 03:26:28 Disorder of shoulder 465398940 Active Not Available [facility] 3 03:26:28 Pain in right sacroili ac joint 42858210105 733814 Active 2022 Not Available [facility] 3 03:26:28 Cellulit is 907054283 Completed Not Available [facility] 3 03:26:28 Abnormal radionuc lide scan 531225963 Active 2019 indeterm inate V/Q scan while on Eliquis patient was started on Coumadin and treated as Eliquis failure could not do CT angiogra m Not Available [facility] 3 03:26:28 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 18265975239 9106 Active 2021 Not Available [facility] 3 03:26:28 Pain of left shoulder joint 17216629724 418310 Active 2022 Not Available [facility] 3 03:26:28 Bruising symptom 667995034 Completed Not Available [facility] 3 03:26:28 Increase d frequenc y of urinatio n 801298334 Active 2021 Not Available [facility] 3 03:26:28 Anticoag ulant therapy Active 2021 Not Available [facility] 3 03:26:29 Microsco pic hematuri a 540544555 Active 2021 Not Available [facility] 3 03:26:29 Partial thicknes s rotator cuff tear Active 2022 Not Available [facility] 3 03:26:29 Partial thicknes s rotator cuff tear Active 2022 Not Available [facility] 3 03:26:29 Abdomina l pain 19980313 Completed Not Available [facility] 3 03:26:29 Gastroes ophageal reflux disease 502356268 Active Not Available [facility] 3 03:26:29 Ventricu lar tachycar megan 26485275 Active 2021 [facility] June 2022 Not Available [facility] 3 03:26:29 Shoulder joint pain 702943124 Active Not Available [facility] 3 03:26:29 Eruption 964549816 Completed Not Available [facility] 3 03:26:29 Pain in right arm 125835404 Completed Not Available [facility] 3 03:26:29 Pain of right hip joint 76467645656 9102 Active 2022 Not Available [facility] 3 03:26:29 Sinusiti s 53223835 Completed Not Available [facility] 3 03:26:30 Chronic pain syndrome 444530062 Active Not Available [facility] 3 03:26:30 Osteoart hritis 492004404 Active 2020 Not Available [facility] 3 03:26:30 Malignan t neoplasm of prostate 746340879 Active 2021 Not Available [facility] 3 03:26:30 Dizzines s 864436967 Completed Not Available [facility] 3 03:26:30 Imaging result abnormal 150017063 Active 2021 Not Available [facility] 3 03:26:30 Recurren t hernia of anterior abdomina l wall 592748030 Active Not Available [facility] 3 03:26:30 History of malignan t neoplasm of prostate 688020531 Active 2019 Not Available [facility] 3 03:26:30 Chronic kidney disease stage 3 463625940 Active 2021 Not Available [facility] 3 03:26:30 Hernia of abdomina l cavity 24273373 Active Not Available [facility] 3 03:26:31 Upper respirat ory infectio n 62932391 Completed Not Available [facility] 3 03:26:31 Cervical radiculo fausto 00178034 Completed Not Available [facility] 3 03:26:31 Rhinitis 64285353 Completed Not Available [facility] 3 03:26:31 Urgent desire to urinate 66302510 Active 2021 Not Available [facility] 3 03:26:31 Spinal stenosis in cervical region 59062345 Active 2022 Not Available [facility] 3 03:26:31 Pain in limb 87599604 Active Not Available [facility] 3 03:26:31 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 Please review this document and add these problems to the patient's chart manually as needed. Problem Notes None recorded. Procedures Surgical History Date Name Laterality Status Provider Name and Address Organization Details Recorded Time 01/14/20 23 Ortho - Cortisone Injection completed Trung Buenrostro MD [address] [facility], [facility] [address], [place], [address], [facility] [place] 01/13/2023 10:14:39 06/09/20 22 Unlisted px cardiac surgery completed Not Available [facility] 12/31/2022 03:18:52 04/06/20 14 Colonoscopy completed Not Available [facility] 12/31/2022 03:18:52 Unlisted px femur/knee completed Not Available [facility] 12/31/2022 03:18:52 Cholecystectomy completed Not Available [facility] 12/31/2022 03:18:52 Tonsillectomy completed Not Available [facility] 12/31/2022 03:18:52 Back Surgery completed Not Available [facility] 12/31/2022 03:18:52 Hernia Repair completed Not Available [facility] 12/31/2022 03:18:52 Neck Surgeries completed Not Available [facility] 12/31/2022 03:18:52 Prostatectomy completed Not Available [facility] 12/31/2022 03:18:52 Vasectomy completed Not Available [facility] 12/31/2022 03:18:52 Imaging Results Imaging Date Name Status LastModified by Organiz ation Details LastModified Time 05/13/2023 US, bladder completed [email or web address] [facility] [address] [facility] [address], [place], [address], 05/13/2023 12:47:41 05/19/2023 XR, foot completed [email or web address] [facility] (Imaging) [address] [place], [address], 09/18/2023 21:52:16 09/29/2023 XR, wrist completed [email or web address] [facility] [address] [facility], [place], [address], 09/29/2023 11:26:17 10/01/2023 CT, abdomen + pelvis, w/wo contrast completed BARCODE Information not available 11/10/2023 12:57:54 Procedure Notes None recorded. Medical Equipment None Reported. Allergies Allergen ID Allergen Name Allergen Category Reaction Reaction Severity Criticality Documentation Date Start Date Code Code System Note Provider Name and Address Organization Details Recorded Time 6342 Lyrica medicatio n other Not available Not available 12/31/2022 51601 1 RxNorm visio n montanez es Not Available [facility] 3 03:35:30 6343 Celebrex medicatio n Not available Not available Not available 12/31/2022 47542 7 RxNorm Not Available [facility] 03:35:30 6344 amoxicill in medicatio n Not available Not available Not available 12/31/2022 723 RxNorm Not Available [facility] 3 03:35:30 82953 Farxiga medicatio n Not available Not available Not available 09/22/2023 60593 72 RxNorm Ingris pruitt RN null, [place] [facility] 3 12:27:08 Medications Name Sig Start Date [...] active Not Available Not Available Not Avai labsaige prednison e 10 mg tablets in a [...] mg by injectio n route. 2022 active [facility]: 0003-049 02-19 Not Available Not Available Not Available baclofen [...] administ ered by the provider 10/10 completed [facility]: 0409-427 617 Not Available Not Available Not Available calcium [...] Not Available Not Avai lable Fluzone Quad 9479-8278 60 mcg (15 mcg x 4)/0.5 mL IM suspensio n active Not Available Not Available Not Available Fluzone High-Dose (PF) 180 mcg/0.5 mL intramusc ular syringe TO BE ADMINIST ERED BY PHARMACI FOR IMMUNIZA TION 12/19 completed Not Available Not Available Not Available Ozempic 04/29 completed Started by his cardiolo gist for weight loss Not Available Not Available Not Available Fluzone High-Dose 0620-3054 (PF) 180 mcg/0.5 mL intramusc ular syringe 11/09 completed Not Available Not Available Not Available Fluzone High-Dose 2018- (PF) 180 mcg/0.5 mL intramusc ular syringe 10/10 completed Not Available Not Available Not Available Fluzone High-Dose Quad 2019- (PF) 240 mcg/0.7 mL IM syringe 10/10 [...] DateTime 05/06/2023 182.88 cm Ana Muller RN [facility] [place] 05/06/2023 10:56:27 Date Recorded Body height Body mass index (BMI) Body weight Oxygen saturation Oxygen saturation in Arterial blood by Pulse oximetry Body temperature Heart rate Systolic blood pressure Diastolic blood pressure Provider Name and Address Organization Details Last Updated DateTime 3 182.88 cm 34.4 kg/m2 065617. 46 g 95 % 95 % 98.2 [degF] 80 /min 141 mm[Hg] 93 mm[Hg] NORA Mercado [employer] 3 11:29:42 Date Recorded Body height Body mass index (BMI) Body weight Body temperature Heart rate Systolic blood pressure Diastolic blood pressure Provider Name and Address Organization Details Last Updated DateTime 3 182.88 cm 36.2 kg/m2 026010. 16 g 98 [degF] 57 /min 126 mm[Hg] 72 mm[Hg] NORA Rousseau [employer] [place] 3 15:04:09 Date Recorded Body height Body mass index (BMI) Body weight Provider Name and Address Organization Details Last Updated DateTime 09/29/2023 182.88 cm 35.3 kg/m2 488175.02 g Marisel [place] CNA [facility] [employer] [facility] 09/29/2023 10:42:19 Date Recorded Body height Body mass index (BMI) Body weight Body temperature Heart rate Systolic blood pressure Diastolic blood pressure Provider Name and Address Organization Details Last Updated DateTime 4 182.88 cm 38.2 kg/m2 343190. 05 g 97.3 [degF] 54 /min 124 mm[Hg] 74 mm[Hg] NORA Rousseau [facility] [employer] [facility] 4 16:03:45 Social History Question Answer Notes LastModified by Organization Details LastModified Time Tobacco Smoking Status Former Smoker quit 05/24/19 Not Available [employer] 12/31/2022 03:13:58 Do You Have An Advance Directive? No Papers Provided MIGRATION.0301 [id number] Information not available 12/31/2022 What Is Your Level Of Alcohol Consumption? None MIGRATION.0301 013436 Information not available 12/31/2022 Are You Blind Or Do You Have Difficulty Seeing? No MIGRATION.0301 660862 Information not available 12/31/2022 What Is Your Level Of Caffeine Consumption? Occasional MIGRATION.0301 525829 Information not available 12/31/2022 How Much Tobacco Do You Chew? None MIGRATION.0301 536793 Information not available 12/31/2022 In The 14 Days Before Symptom Onset, Have You Had Close Contact With A Laboratory-conf irmed COVID-19 While That Case Was Ill? No MIGRATION.0301 117761 Information not available 12/31/2022 In The 14 Days Before Symptom Onset, Have You Had Close Contact With A Person Who Is Under Investigation For COVID-19 While That Person Was Ill? No MIGRATION.0301 900133 Information not available 12/31/2022 Are You Deaf Or Do You Have Serious Difficulty Hearing? No MIGRATION.0301 811196 Information not available 12/31/2022 What Type Of Diet Are You Following? REGULAR MIGRATION.0301 834686 Information not available 12/31/2022 Which Illicit Or Recreational Drugs Have You Used? None MIGRATION.0301 144313 Information not available 12/31/2022 Do You Or Have You Ever Used E-cigarettes Or Vape? Never Used Electronic Cigarettes MIGRATION.0301 926715 Information not available 12/31/2022 What Is The Highest Grade Or Level Of School You Have Completed Or The Highest Degree You Have Received? 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 No MIGRATION.0301 433567 Information not available 12/31/2022 What Is The Fluoride Status Of Your Home? Unknown MIGRATION.0301 942920 Information not available 12/31/2022 When Did You Quit Smoking? 1-5yearssincelastc igarette MIGRATION.0301 904689 Information not available 12/31/2022 Are There Any Guns Present In Your Home? No MIGRATION.0301 801581 Information not available 12/31/2022 Do You Use Insect Repellent Routinely? No MIGRATION.0301 627090 Information not available 12/31/2022 Where Do You Live? SingleLevelHouse MIGRATION.0301 586512 Information not available 12/31/2022 Do You Have A Medical Power Of Assembler Carbon Brushes? No MIGRATION.0301 463385 Information not available 12/31/2022 What Was The Date Of Your Most Recent Tobacco Screening? 11/09/2023 [email or web address] Information not available 11/09/2023 Do You Have Any Pets? Yes MIGRATION.0301 305273 Information not available 12/31/2022 What Is Your Relationship Status? MIGRATION.0301 268596 Information not available 12/31/2022 Do You Use Your Seat Belt Or Car Seat Routinely? Yes MIGRATION.0301 986020 Information not available 12/31/2022 Do You Have Smoke And Carbon Monoxide Detectors In Your Home? Yes MIGRATION.0301 011247 Information not available 12/31/2022 At What Age Did You Start Smoking Tobacco? 18 MIGRATION.0301 369024 Information not available 12/31/2022 Are You Passively Exposed To Smoke? No MIGRATION.0301 946220 Information not available 12/31/2022 Do You Or Have You Ever Used Smokeless Tobacco? Never Used Smokeless Tobacco MIGRATION.0301 774710 Information not available 12/31/2022 Are There Any Smokers In Your House? No MIGRATION.0301 785136 Information not available 12/31/2022 How Much Tobacco Do You Smoke? No Formerly 1 Ppd MIGRATION.0301 770577 Information not available 12/31/2022 What Types Of Sporting Activities Do You Participate In? None MIGRATION.0301 435586 Information not available 12/31/2022 Do You Feel Stressed (tense, Restless, Nervous, Or Anxious, Or Unable To Sleep At Night)? [id number] MIGRATION.0301 494514 Information not available 12/31/2022 Do You Use Any Illicit Or Recreational Drugs? No MIGRATION.0301 480026 Information not available 12/31/2022 Do You Use Sunscreen Routinely? Yes MIGRATION.0301 014186 Information not available 12/31/2022 Has Tobacco Cessation Counseling Been Provided? No MIGRATION.0301 974814 Information not available 12/31/2022 Have You Recently Traveled Abroad? No MIGRATION.0301 683052 Information not available 12/31/2022 Do You Have Any Dietary Restrictions? No MIGRATION.0301 932691 Information not available 12/31/2022 Do You Or Have You Ever Used Any Other Forms Of Tobacco Or Nicotine? No MIGRATION.0301 380536 Information not available 12/31/2022 Sex: Male Functional Status Question Answer Note LastModified by Organizat ion Details LastModified Time Do you have difficulty walking or climbing stairs? No MIGRATION.3479215 026 Information not available 12/31/2022 Do you have transportation difficulties? No MIGRATION.1345877 026 Information not available 12/31/2022 Are you able to walk? YESWOREST MIGRATION.5870331 026 Information not available 12/31/2022 Do you have difficulty doing errands alone? No MIGRATION.0393124 026 Information not available 12/31/2022 Are you able to care for yourself? Yes MIGRATION.9642651 026 Information not available 12/31/2022 Do you have difficulty dressing or bathing? No MIGRATION.9962287 026 Information not available 12/31/2022 What is your exercise level? Occasional MIGRATION.6922936 026 Information not available 12/31/2022 Mental Status Question Answer Note LastModified by Organizat ion Details LastModified Time Do you have difficulty concentrating, remembering or making decisions? No MIGRATION.[id number] 6 Information not available 12/31/2022 Family History Relationship Description Onset Age of this Age Resolved Age Notes LastModified by Organization Details LastModified Time Mother Malignant tumor of breast MIGRATION.362 [id number] Not available 12/31/2022 03:18:58 Father Malignant neoplastic disease MIGRATION.791 [id number] Not available 12/31/2022 03:18:58 Notes:blood clots in legs an d lungs-Father Medical History Condition Response NERVE DISEASE N BLINDNESS N RHEUMATIC FEVER N KIDNEY STONES N BLADDER PROBLEMS N MRSA N OTHER # 1 N POLIO N LUNG DISEASE/DISORDER Y HISTORY OF DRUG ABUSE N RADIATION / CHEMOTHERAPY Y COPD N Other # 2 N BLOOD DISEASES N SURGERY N EAR OR HEARING PROBLEMS N MUMPS N SHINGLES N DEPRESSION (INCLUDING POST ) N BOWEL PROBLEMS N STROKE/TIA N ULCERS N BENIGN PROSTATIC HYPERPLASIA N MEASLES N MYOCARDIAL INFARCTION N OBESITY N GERD/NAUSEA Y ANEURYSM N URINARY/BLADDER/KIDNEY PROBLEMS Y CORONARY ARTERY DISEASE (CAD) Y ADDICTION CONCERNS N Impotence N ENDOMETRIOSIS N USE OF BLOOD THINNERS Y SKIN [...] GLAUCOMA N FOOT PROBLEM N DIVERTICULITIS N SLEEP APNEA N CHICKENPOX N ALLERGIES/HAYFEVER N INFECTIOUS DISEASE N PROSTATE N HEART ARRHYTHMIA N INSOMNIA N HIGH CHOLESTEROL / HYPERLIPIDEMIA N EYE PROBLEMS N HYPERTHYROIDISM N NEUROLOGICAL PROBLEMS N EDEMA N CHRONIC PAIN SYNDROME N HYPOTHYROIDISM N CAROTID BLOCKAGE N CONSTIPATION N BACK / NECK PROBLEMS Y HAVE YOU BEEN HOSPITALIZED OR SEEN IN [facility] ER IN THE PAST YEAR ? N [...] N ALZHEIMER'S DISEASE N Brain Problems N DEMENTIA N HERPES N SEIZURES/EPILEPSY N HEADACHES/MIGRAINES N VASCULAR DISEASE Y PACEMAKER N Blood Disorder N DIZZINESS N HEART DISEASE/HEART PROBLEMS Y KIDNEY DISEASE N MULTIPLE SCLEROSIS N CANCER: SPECIFY Y CARDIAC ARRHYTHMIA N ANESTHESIA COMPLICATIONS N ATRIAL FIBRILLATION N Gall Stones N PULMONARY EMBOLISM N AUTOIMMUNE DISEASE N Immunizations Vaccine Type Date Status Note Provider Nam e and Address Organization Details Recorded Time Influenza, split virus, trivalent, preservative 3 completed Not Available [facility] 12/31/2022 03:35:17 COVID-19, mRNA, LNP-S, PF, 100 mcg/0.5mL dose or 50 mcg/0.25mL dose 2 completed Not Available [facility] 12/31/2022 03:35:17 Influenza, high-dose, trivalent, PF 9 completed Not Available [facility] 12/31/2022 03:35:17 Influenza, high-dose, trivalent, PF 8 completed Not Available [facility] 12/31/2022 03:35:17 COVID-19, mRNA, LNP-S, PF, 100 mcg/0.5mL dose or 50 mcg/0.25mL dose 1 completed Not Available [facility] 12/31/2022 03:35:17 COVID-19, mRNA, LNP-S, PF, 100 mcg/0.5mL dose or 50 mcg/0.25mL dose 1 completed Not Available [facility] 12/31/2022 03:35:17 Influenza, high-dose, quadrivalent, PF 0 completed Not Available [facility] 12/31/2022 03:35:17 influenza, unspecified formulation 4 completed Not Available [facility] 12/31/2022 03:35:17 Influenza, split virus, trivalent, preservative 3 completed Not Available [facility] 12/31/2022 03:35:17 Influenza, high-dose, quadrivalent, PF 2 completed Not Available [facility] 12/31/2022 03:35:17 Influenza, high-dose, quadrivalent, PF 1 completed Not Available [facility] 12/31/2022 03:35:18 Influenza, high-dose, trivalent, PF 7 completed Not Available [employer] 12/31/2022 03:35:18 Influenza, split virus, quadrivalent, PF 5 completed Not Available [facility] 12/31/2022 03:35:18 Influenza, high-dose, quadrivalent, PF 3 completed Bubba Alcala MD [address] [facility], [place], [address], [facility] 08/16/2023 17:35:03 Past Encounters Encounter ID Performer Location Encounter Start Date Encounter Closed Date Diagnosis/Indication Diagnosis SNOMED-CT Code Diagnosis ICD10 Code Diagnosis Note [id number] Bubba Alcala MD S[facility] Internal Med [facility] [address] [address] 02/06/2021 00:00:00 02/06/2021 22:55:37 [id number] Lon Tomas MD [facility] [address] [place] [address] 04/29/2021 00:00:00 04/29/2021 13:13:52 [id number] Bubba Alcala MD [facility] Internal Med [facility] [address] [place] [address] 05/07/2021 00:00:00 05/12/2021 17:07:15 [id number] Lon Tomas MD S_[address] [address] 06/10/2021 00:00:00 06/10/2021 12:22:16 [id number] Bubba Alcala MD S_G Internal Med [facility] [address] [place] [address] 1 06/27/2021 00:00:00 07/21/2021 17:18:22 [id number] Bubba Alcala MD S_G Internal Med [facility] [address] [place] [address] 1 08/02/2021 00:00:00 08/03/2021 15:06:58 [id number] Bubba Alcala MD [facility] Internal Med [facility] 15 [address] [facility] [address] [address] 09/04/2021 00:00:00 09/06/2021 22:49:18 [id number] Bubba Alcala MD [facility] Internal Med [facility] 2043 [facility], [address] [address] 12/03/2021 00:00:00 12/07/2021 21:41:41 [id number] Lon Tomas MD [facility] [place] [address] [place] [address] 1 12/09/2021 00:00:00 12/09/2021 12:12:14 [id number] Bubba Alcala MD [facility] Internal Med [facility] [address] [address] 03/04/2022 00:00:00 03/04/2022 23:32:54 [id number] MD DAVID DuffyS_[facility] [place] [address] [place] [address] 1 04/28/2022 00:00:00 04/28/2022 12:17:36 [id number] Bubba Alcaal MD [facility] Internal Med [facility] [address] [address] 05/06/2022 00:00:00 05/06/2022 20:22:12 [id number] Ubaldo Weber MD [facility] [place] [address] [facility] [address] [place] [address] 05/22/2022 00:00:00 05/22/2022 15:18:36 [id number] Bubba Alcala MD [facility] Internal Med [facility] [address] [place] [address] 1 06/16/2022 00:00:00 06/16/2022 21:38:04 [id number] MD DAVID DuffyS_[facility] [place] [address] [place] [address] [place] [address] 08/04/2022 00:00:00 08/04/2022 11:58:54 [id number] Bubba Alcala MD S_[facility] Internal Med [facility] [address] [address] 09/22/2022 00:00:00 09/27/2022 17:21:44 [id number] Lon Tomas MD S_[facility] [address] [place] [address] 1 11/10/2022 00:00:00 11/10/2022 12:11:08 [id number] Trung Buenrostro MD S_[facility] [place] [address] [facility] [address] [place] [address] 11/20/2022 00:00:00 11/20/2022 11:41:26 [id number] Trung Buenrostro MD [facility] [address] [address] 12/16/2022 00:00:00 12/16/2022 10:24:20 [id number] Bubba Alcala MD S_[facility] Internal Med [facility] [address] [address] 1 12/17/2022 00:00:00 12/17/2022 21:55:25 [id number] Trung Buenrostro MD S_[facility] [address] [address] 01/13/2023 09:50:12 01/13/2023 10:25:20 Pain in right sacroiliac joint 7837063535 4923661 M53.3 Pain of ri ght hip joint 8032923087 97021 M25.551 [id number] Trung Buenrostro MD S_[facility] [address] [address] 02/10/2023 10:21:30 02/10/2023 11:07:04 Neck pain 53175079 M54.2 Spinal miguel a nosis in cervical region 50078823 M48.02 [id number] John Mas MD [facility] [address] [address] [address] 1 02/11/2023 09:16:51 02/11/2023 10:11:45 Malignant neoplasm of prostate 238770979 C61 :-TREATMEN T HISTORY:2012 - [facility]P (Dr Zepeda at [facility]) - GS 3+4=7, pT3a03/2022 - Salvage IMRT + 6 mos ADT (PSA 0.18) PLAN:-q3mo s PSA through 01/2024, then q6mos through 12/2024, then annual thereafter Hormone se nsitive prostate cancer 527024946 Z19.1 Increased frequency of urination 637354591 R35.0 :Intermitt ently check UA and PVRContinu e Myrbetriq 25mg daily [id number] Bubba Alcala MD [facility] Internal [place] [address] [address] [place] [address] 04/22/2023 14:51:02 04/22/2023 16:05:43 Anticoagulant therapy 608977785 Z79.01 Spinal miguel a nosis in cervical region 32139752 M48.02 Chronic pain syndrome 37 4525352 G89.4 [id number] Bubba Alcala MD [facility] Internal [facility] [address] [address] 1 05/06/2023 10:45:26 05/06/2023 10:59:29 Anticoagulant therapy 900591374 Z79.01 [id number] John Mas MD [facility] [address] [place] [address] 1 05/13/2023 11:09:20 05/13/2023 11:47:48 Malignant neoplasm of prostate 626994084 C61 :-TREATMEN T HISTORY:2012 - R[facility]P (Dr Zepeda at [facility]) - GS 3+4=7, pT3a03/2022 - Salvage IMRT + 6 mos ADT (PSA 0.18) PLAN:-q3mo s PSA through 01/2024, then q6mos through 12/2024, then annual thereafter Hormone se nsitive prostate cancer 950275732 Z19.1 Increased frequency of urination 871367952 R35.0 :Intermitt ently check UA and PVRContinu e Myrbetriq 25mg daily [id number] Bubba Alcala MD [facility] Internal Med 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 9794380489 05917 I82.509 Chronic ki dney disease stage 3 667164127 N18.30 History of malignant neoplasm of prostate 566235831 Z85.46 History of pulmonary embolus 560132270 Z86.711 Nonischemi c congestive cardiomyopathy 9098026412 04 I42.0 Health Concerns Section Related Observation LastModified by Organization Detai ls LastModified Time None Recorded Concern Status LastModified by Organization Details LastModified Time None Recorded Advance Directives Directive N: papers provided Payers Encounter Date Sequence Insurance Name Policy Number Policy Abbasi Covered Member ID Abbasi Member ID Guarantor Name 05/06/2023 1 [employer] (MEDICARE REPLACEMENT/A DVANTAGE - HMO) [id number] Brennen Olson [id number] Brennen Olson 05/13/2023 1 [employer] (MEDICARE REPLACEMENT/A DVANTAGE - HMO) [id number] Brennen R Wesley [id number] Brennen R Wesley 08/04/2023 1 [employer] (MEDICARE REPLACEMENT/A DVANTAGE - HMO) [id number] Brennen R [place] [id number] Brennen R [employer] 09/29/2023 1 [employer] (MEDICARE REPLACEMENT/A DVANTAGE - HMO) [id number] Brennen R Wesley [id number] Brennen R Wesley 11/09/2023 1 [employer] (MEDICARE REPLACEMENT/A DVANTAGE - HMO) [id number] Brennen Olson [id number] Brennen Olson Notes Date Note Type Note Provider Name and Address Organization Details Recorded Time 05/13/2023 text/html :02/11/2023 ORIGI NAL HPI - Patient peviously seen by Dr. Tomas, here to establish with me. Takes Myrbetriq 25mg for LUTS -INITIAL DIAGNOSIS/STAGE: TRUSBx = Unknown -TREATMENT HISTORY:05/2013 - R[facility] (Dr Zepeda at [facility]) - GS 3+4=7, pT3a5/2021 - Salvage IMRT + 6 mos ADT [...] or infectionPVR: 11cc John Mas MD [address] [facility], [place], [address], [place] [facility] 05/13/2023 11:48:16 08/04/2023 text/html cervical spinal stenosis no gait problems. Heart failure with reduced ejection fraction he has not had any decompensation symptomsCervical spinal stenosis his pain is fine is no myelopathy symptoms. Rhinitis stable with fluticasone. CKD 3 no new symptoms referable to thatHistory of PE INR 2.5 Bubba Alcala MD [address], [facility] [address], [place], [address], [employer] 08/16/2023 17:35:06 09/29/2023 text/html Patient returns with [...] status is noted by the patient. BENEDICT Chase [address], [facility] [address], [place], [address], [employer] 09/29/2023 11:27:08 11/09/2023 text/html cervical spinal stenosis [...] largely bright red Bubba Alcala MD [address] [facility], [facility] [address], [place], [address], [place] [facility] 11/09/2023 21:21:39
--- OUTSIDE RECORDS SUMMARY | 2025-03-06 11:50 | XMS_ITS | Referral Summary ---
Author Organization [facility] Address [address] [place] [address] Care Team Providers Care Forming Roll Operator Heavy Duty Name Role Phone Lucio Rosas MD Unavailable Bianca Hunter MD Unavailable [phone] Hero Pinedo MD Unavailable [phone] Jas Alcala MD Primary Care Provider [phone] Lon Tomas MD Unavailable [phone] Jaycee Teresa MD Unavailable [phone] Encounters Date Type Department Care Team Description [address] [facility] Oncology [address] [place] [phone] Georgette Velasco RN 5 12:30 PM CDT Clinical Support [facility] at [address] [address] Malignant neoplasm of lower third of esophagus (HCC); Anemia, unspecified type; History of pulmonary embolism 5 1:00 PM CDT Office Visit [facility] Oncology [address] [place] [address] [place] [phone] Bianca Hunter MD Malignant neoplasm of lower third of esophagus (HCC) (Primary Dx) 5 Completion of Therapy [facility] 2 Radiation Oncology [address] [place] [address] Hero Pinedo MD 5 Telephone [facility] Oncology [facility] [place] [phone] Bianca Hunter MD INR results 5 Orders Only RAD ONC TREATMENTS Miscellaneous, Not In File 5 11:30 AM CDT Treatment [facility] 2 Radiation Oncology [address] [place] [address] Hero Pinedo MD 5 Telephone [facility] Bone Marrow Transplant [address] [place] [phone] Ceci Antony NP 5 3:00 PM CDT Lab [facility] at [address] [address] 5 OTV [facility] 2 Radiation Oncology [address] [place] [address] Hero Pinedo MD 5 Orders Only RAD ONC TREATMENTS Miscellaneous, Not In File 5 12:30 PM CDT Infusion [facility] at [address] [phone] Malignant neoplasm of lower third of esophagus (HCC) (Primary Dx) 5 11:30 AM CDT Treatment [facility] 2 Radiation Oncology [address] [place] [address] 5 Orders Only RAD ONC TREATMENTS Miscellaneous, Not In File 5 9:15 AM CDT Clinical Support [facility] at [address] [address] Malignant neoplasm of lower third of esophagus (HCC); Abnormal coagulation profile 5 9:45 AM CDT Office Visit [facility] [address] [place], [place] [address], [place] [address] Bianca Hunter MD Malignant neoplasm of lower third of esophagus (HCC) (Primary Dx); Abnormal coagulation profile 5 11:30 AM CDT Treatment [facility] 2 Radiation Oncology [address] [place] [address] Hero Pinedo MD 5 11:35 AM CDT Treatment [facility] 2 Radiation Oncology [address] [place] [address] Hero Pinedo MD 5 Orders Only [facility] 2 Radiation Oncology [address] [place] [address] Hero Pinedo MD 5 Orders Only [facility] [address] [place] [phone] Meme Dean RN 5 Orders Only [facility] 2 Radiation Oncology [address] [place] [address] Hero Pinedo MD Malignant neoplasm of lower third of esophagus (HCC) (Primary Dx) 5 Orders Only [facility] 2 Radiation Oncology [address] [place] [address] Hero Pinedo MD 5 Orders Only RAD ONC TREATMENTS Miscellaneous, Not In File 5 12:15 PM CDT Infusion [facility] Cancer Center at [address] [phone] Malignant neoplasm of lower third of esophagus (HCC) (Primary Dx) 5 Orders Only [facility] 2 Radiation Oncology [address] [place] [address] Hero Pinedo MD Malignant neoplasm of lower third of esophagus (HCC) (Primary Dx) 5 11:30 AM CDT Treatment [facility] 2 Radiation Oncology [address] [place] [address] 5 Orders Only RAD ONC TREATMENTS Miscellaneous, Not In File 5 11:30 AM CDT Treatment [facility] 2 Radiation Oncology [address] [place] [address] 5 Orders Only RAD ONC TREATMENTS Miscellaneous, Not In File 5 Orders Only [facility] On[facility] [address] [place] [phone] Meme Dean, WILBER 5 11:30 AM CDT Infusion [address] [place] [address] Malignant neoplasm of lower third of esophagus (HCC) (Primary Dx) 5 Orders Only [facility] Oncology [address] [place] [phone] Meme Dean, RN Malignant neoplasm of lower third of esophagus (HCC) (Primary Dx) 5 2:30 PM CDT Treatment [facility] 2 Radiation Oncology [address] [place] [address] 5 OTV [facility] 2 Radiation Oncology [address] [place] [address] Hero Pinedo MD 5 Orders Only RAD ONC TREATMENTS Miscellaneous, Not In File 5 11:30 AM CDT Treatment [facility] 2 Radiation Oncology [address] [place] [address] 5 Orders Only RAD ONC TREATMENTS Miscellaneous, Not In File 5 12:00 PM CDT Infusion [address] [place] [address] Anemia, unspecified type (Primary Dx); History of pulmonary embolism 5 1:30 PM CDT Clinical Support [facility] 2 Radiation Oncology [address] [place] [address] Malignant neoplasm of lower third of esophagus (HCC) (Primary Dx) 5 11:00 AM CDT Treatment [facility] 2 Radiation Oncology [address] [place] [address] 5 4:00 PM CDT Clinical Support [facility] at [address] [address] Anemia, unspecified type; History of pulmonary embolism; Malignant neoplasm of lower third of esophagus (HCC) 5 Orders Only RAD ONC TREATMENTS Miscellaneous, Not In File 5 11:30 AM CDT Treatment [facility] 2 Radiation Oncology [address] [place] [address] 5 Orders Only RAD ONC TREATMENTS Miscellaneous, Not In File 5 9:30 AM CDT Office Visit [facility] Otolaryngology [address] [place] [phone] Jairo Carr MD Mass of left parotid gland (Primary Dx); Malignant neoplasm of lower third of esophagus (HCC) 5 11:30 AM CDT Treatment [facility] 2 Radiation Oncology [address] [place] [address] 5 Orders Only RAD ONC TREATMENTS Miscellaneous, Not In File 5 11:30 AM CDT Treatment [facility] 2 Radiation Oncology [address] [place] [address] 5 OTV [facility] 2 Radiation Oncology [address] [place] [address] Hero Pinedo MD 5 Orders Only RAD ONC TREATMENTS Miscellaneous, Not In File 5 11:30 AM CDT Treatment [facility] 2 Radiation Oncology [address] [place] [address] 5 Orders Only RAD ONC TREATMENTS Miscellaneous, Not In File 5 1:00 PM CDT Office Visit [facility] On[facility] [address] [place] [phone] Bianca Hunter MD Malignant neoplasm of lower third of esophagus (HCC) (Primary Dx) 5 1:30 PM CDT Infusion [facility] at [address] [phone] Malignant neoplasm of lower third of esophagus (HCC) (Primary Dx) 5 12:30 PM CDT Clinical Support [facility] at [address] [address] Malignant neoplasm of lower third of esophagus (HCC); Anemia, unspecified type; History of pulmonary embolism 5 11:30 AM CDT Treatment [facility] 2 Radiation Oncology [address] [place] [address] 5 Orders Only RAD ONC TREATMENTS Miscellaneous, Not In File 5 12:00 PM CDT Clinical Support [facility] 2 Radiation Oncology [address] [place] [address] Malignant neoplasm of lower third of esophagus (HCC) (Primary Dx) 5 11:30 AM CDT Treatment [facility] 2 Radiation Oncology [address] [place] [address] 5 Orders Only RAD ONC TREATMENTS Miscellaneous, Not In File 5 11:30 AM CDT Treatment [facility] 2 Radiation Oncology [address] [place] [address] 5 Orders Only RAD ONC TREATMENTS Miscellaneous, Not In File 5 11:30 AM CDT Treatment [facility] 2 Radiation Oncology [address] [place] [address] 5 OTV [facility] 2 Radiation Oncology [address] [place] [address] Hero Pinedo MD 5 Orders Only RAD ONC TREATMENTS Miscellaneous, Not In File 5 11:30 AM CDT Treatment [facility] 2 Radiation Oncology [address] [place] [address] 5 Orders Only [facility] Oncology [address] [place] [phone] Meme Dean RN 5 Orders Only RAD ONC TREATMENTS Miscellaneous, Not In File 5 Orders Only [facility] Oncology [address] [place] [phone] Bianca Hunter MD 5 12:15 PM CDT Clinical Support [facility] at [address] [address] Malignant neoplasm of lower third of esophagus (HCC) 5 12:45 PM CDT Infusion [facility] [place] at [address] [place] [address] Malignant neoplasm of lower third of esophagus (HCC) (Primary Dx) 5 11:30 AM CDT Treatment [facility] 2 Radiation Oncology [address] [place] [address] 5 Orders Only RAD ONC TREATMENTS Miscellaneous, Not In File 5 9:15 AM CDT Clinical Support [facility] [place] at [address] [address] Anemia, unspecified type; History of pulmonary embolism 5 12:30 PM CDT Clinical Support [facility] 2 Radiation Oncology [address] [place] [address] Malignant neoplasm of lower third of esophagus (HCC) (Primary Dx); Malignant neoplasm of prostate (HCC); Miller's esophagus with high grade dysplasia; Atrial fibrillation, unspecified type (HCC); Iron deficiency anemia, unspecified iron deficiency anemia type 5 12:00 PM CDT Infusion [facility] Center at [place] [phone] [facility] [address] [place] [address] Anemia, unspecified type (Primary Dx); History of pulmonary embolism 5 11:30 AM CDT Treatment [facility] 2 Radiation Oncology [address] [place] [address] 5 Orders Only RAD ONC TREATMENTS Miscellaneous, Not In File 5 11:30 AM CDT Treatment [facility] 2 Radiation Oncology [address] [place] [address] 5 Orders Only RAD ONC TREATMENTS Miscellaneous, Not In File 5 11:30 AM CDT Treatment [facility] 2 Radiation Oncology [address] [place] [address] 5 12:02 PM CDT - 5 11:59 PM CDT Hospital Encounter [facility] 1 DIAG IMG [address] [place] [address] Malignant neoplasm of lower third of esophagus (HCC); Acute pain Discharge Disposition: Discharge to home or self care 5 OTV [facility] 2 Radiation Oncology [address] [place] [address] Hero Pinedo MD 5 Orders Only RAD ONC TREATMENTS Miscellaneous, Not In File 5 11:30 AM CDT Treatment [facility] 2 Radiation Oncology [address] [place] [address] 5 Orders Only RAD ONC TREATMENTS Miscellaneous, Not In File 5 12:15 PM CDT Clinical Support [facility] at [address] [address] Malignant neoplasm of lower third of esophagus (HCC) 5 1:45 PM CDT Infusion [facility] at [address] [place] [address] Malignant neoplasm of lower third of esophagus (HCC) (Primary Dx) 5 12:45 PM CDT Office Visit [facility] Oncology [address] [place] [phone] Bianca Hunter MD Malignant neoplasm of lower third of esophagus (HCC) (Primary Dx); Acute pain 5 11:30 AM CDT Treatment [facility] 2 Radiation Oncology [address] [place] [address] 5 Orders Only RAD ONC TREATMENTS Miscellaneous, Not In File 5 11:30 AM CDT Treatment [facility] 2 Radiation Oncology [address] [place] [address] 5 Orders Only RAD ONC TREATMENTS Miscellaneous, Not In File 5 11:30 AM CDT Treatment [facility] 2 Radiation Oncology [address] [place] [address] 5 Orders Only RAD ONC TREATMENTS Miscellaneous, Not In File 5 11:30 AM CDT Treatment [facility] 2 Radiation Oncology [address] [place] [address] 5 OTV [facility] 2 Radiation Oncology [address] [place] [address] Kelin Patterson MD Malignant neoplasm of lower third of esophagus (HCC) (Primary Dx) 5 Orders Only RAD ONC TREATMENTS Miscellaneous, Not In File 5 11:30 AM CDT Treatment [facility] 2 Radiation Oncology [address] [place] [address] 5 Orders Only RAD ONC TREATMENTS Miscellaneous, Not In File 5 10:00 AM CDT Infusion [facility] [place] at [address] [phone] Malignant neoplasm of lower third of esophagus (HCC) (Primary Dx) 5 9:00 AM CDT Clinical Support [address] [address] Malignant neoplasm of lower third of esophagus (HCC) 5 9:30 AM CDT Office Visit [facility] On[facility] [address] [place] [phone] Bianca Hunter MD Malignant neoplasm of lower third of esophagus (HCC) (Primary Dx) 5 8:30 AM CDT Treatment [facility] 2 Radiation Oncology [address] [place] [address] Lon Marti MD 5 8:45 AM CDT Treatment [facility] 2 Radiation Oncology [address] [place] [address] Hero Pinedo MD 5 9:30 AM CDT Clinical Support [address] [address] Anemia, unspecified type; History of pulmonary embolism 5 1:30 PM CDT Clinical Support [facility] 2 Radiation Oncology [address] [place] [address] Malignant neoplasm of lower third of esophagus (HCC) (Primary Dx); Malignant neoplasm of prostate (HCC); Miller's esophagus with high grade dysplasia; History of colon polyps; Iron deficiency anemia, unspecified iron deficiency anemia type 5 1:00 PM CDT Infusion [facility] at [facility] [address] [facility] [address] [place] [address] Anemia, unspecified type (Primary Dx); History of pulmonary embolism 5 7:55 PM CDT Treatment [facility] 2 Radiation Oncology [address] [place] [address] 5 7:55 PM CDT Treatment [facility] 2 Radiation Oncology [address] [place] [address] 5 9:31 AM CDT - 5 11:59 PM CDT Hospital Encounter [facility] [address] [place] [address] Bianca Hunter MD Malignant neoplasm of lower third of esophagus (HCC) Discharge Disposition: Discharge to home or self care 5 Telephone [facility] Surgery [facility] [address] [phone] Lorie Little NP 5 Telephone [facility] Radiology [address] [address] Shaniqua Chandler NP 5 Telephone [facility] Radiology [address] [place] [address] Erma Box RN 5 6:58 AM ORGANIC GARDENING TEACHER - 5 11:59 PM ORGANIC GARDENING TEACHER Hospital Encounter [facility] [address] [place] [address] Atrial fibrillation, unspecified type (HCC); Coronary artery disease, unspecified vessel or lesion type, unspecified whether angina present, unspecified whether [place] or transplanted heart Discharge Disposition: Discharge to home or self care 5 6:58 AM ORGANIC GARDENING TEACHER - 5 11:59 PM ORGANIC GARDENING TEACHER Hospital Encounter [facility] [address] [place] [address] Discharge Disposition: Discharge to home or self care 5 6:58 AM ORGANIC GARDENING TEACHER - 5 11:59 PM ORGANIC GARDENING TEACHER Hospital Encounter [facility] [place] [address] Atrial fibrillation, unspecified type (HCC); Coronary artery disease, unspecified vessel or lesion type, unspecified whether angina present, unspecified whether [place] or transplanted heart Discharge Disposition: Discharge to home or self care 5 7:24 AM ORGANIC GARDENING TEACHER - 5 11:59 PM ORGANIC GARDENING TEACHER Hospital Encounter [facility] [address] [place] [address] Atrial fibrillation, unspecified type (HCC); Coronary artery disease, unspecified vessel or lesion type, unspecified whether angina present, unspecified whether [place] or transplanted heart Discharge Disposition: Discharge to home or self care 5 Orders Only [facility] Oncology [address] [place] [phone] Meme Dean RN Malignant neoplasm of lower third of esophagus (HCC) (Primary Dx) 5 9:30 AM ORGANIC GARDENING TEACHER Treatment [facility] 2 Radiation Oncology [address] [place] [address] Hero Pinedo MD 5 11:00 AM ORGANIC GARDENING TEACHER Office Visit [facility] Hematology [address] [place] [phone] Nena Cano NP Anemia, unspecified type (Primary Dx); History of pulmonary embolism 5 9:00 AM ORGANIC GARDENING TEACHER Consult [facility] 2 Radiation Oncology [address] [place] [address] Hero Pinedo MD Malignant neoplasm of lower third of esophagus (HCC) 5 8:00 AM ORGANIC GARDENING TEACHER Lab [facility] at [address] [address] Anemia, unspecified type; History of pulmonary embolism 5 Orders Only [facility] Oncology [address] [place] [phone] Meme Dean RN 5 Telephone [facility] 2 Radiation Oncology [address] [place] [address] Alissa Morales 5 Telephone [facility] Center at [address] [phone] Francie Hassan, WILBER 5 1:30 PM ORGANIC GARDENING TEACHER Lab [facility] at [address] [address] Anemia, unspecified type; History of pulmonary embolism 5 2:00 PM ORGANIC GARDENING TEACHER Office Visit [facility] Oncology [address] [place] [phone] Bianca Hunter MD Malignant neoplasm of lower third of esophagus (HCC) (Primary Dx) 5 Orders Only [facility] Surgery [address] [facility] [address] [place] [address] Charlie uJarez MD Atrial fibrillation, unspecified type (HCC) (Primary Dx); Coronary artery disease, unspecified vessel or lesion type, unspecified whether angina present, unspecified whether [place] or transplanted heart 5 8:30 AM ORGANIC GARDENING TEACHER Office Visit [facility] Surgery [address] [place] [phone] Charlie Juarez MD Malignant neoplasm of lower third of esophagus (HCC) (Primary Dx) 5 7:30 AM ORGANIC GARDENING TEACHER - 5 11:59 PM ORGANIC GARDENING TEACHER Hospital Encounter [facility] [address] [place] [address] Malignant neoplasm of lower third of esophagus (HCC) Discharge Disposition: Discharge to home or self care 5 Telephone [facility] at [address] [place] [phone] Abigail Hernandez, WILBER 5 Orders Only [facility] Hematology [address] [facility] Floor [address] [place] [address] Vicente Gertrude Lisa Anemia, unspecified type (Primary Dx); History of pulmonary embolism 5 9:00 AM ORGANIC GARDENING TEACHER Lab [facility] at [address] [address] Anemia, unspecified type; History of pulmonary embolism 5 8:00 AM ORGANIC GARDENING TEACHER Lab [facility] [address] [place] [phone] Malignant neoplasm of lower third of esophagus (HCC); Atrial fibrillation, unspecified type (HCC) 5 11:00 AM ORGANIC GARDENING TEACHER - 5 12:00 PM ORGANIC GARDENING TEACHER Surgery [facility] Digestive Disease [address] [address] Nikolay Dunn MD ESOPHAGOGASTRODUODENOSCOPY ENDOSCOPIC ULTRASOUND [GI509] 5 6:33 AM ORGANIC GARDENING TEACHER - 5 11:59 PM ORGANIC GARDENING TEACHER Hospital Encounter [facility] Rad[facility] [address] [place] [address] Nikolay Dunn MD Malignant neoplasm of lower third of esophagus (HCC) Discharge Disposition: Discharge to home or self care 5 9:55 AM ORGANIC GARDENING TEACHER Anesthesia Event [facility] Digestive Disease [address] [address] Will Fish MD 5 7:38 AM ORGANIC GARDENING TEACHER - 5 11:25 AM ORGANIC GARDENING TEACHER Hospital Encounter [facility] Digestive Disease [address] [address] Nikolay Dunn MD Malignant neoplasm of lower third of esophagus (HCC) Discharge Disposition: Discharge to home or self care 5 12:00 PM ORGANIC GARDENING TEACHER Infusion [facility] Cancer [place] at [address] [place] [phone] Anemia, unspecified type (Primary Dx) 5 9:00 AM ORGANIC GARDENING TEACHER Lab [facility] at [address] [address] Anemia, unspecified type from Last 3 Months Allergies Active Allergy Reactions Criticality Noted Date Comments Amoxicillin Anaphylaxis High Celecoxib Anaphylaxis,Hives,Un known,Other (See comments) High 09/23/2010 Dapagliflozin Rash,Unknown High 01/19/2024 Farxiga Penicillins Shortness of breath,Hives,Unknown,Other (See comments),Rash High 09/23/2010 Pregabalin Rash,Unknown,Other (See comments) High Lyrica Medications furosemide (LASIX) 20 mg tablet Take 1 tablet (20 mg total) by mouth daily 020 Active calcium carbonate (TUMS) 500 mg (200 mg elemental) chewable tablet Take 1 tablet/chew tab (500 mg total) by mouth nightly Active carvediloL (COREG) 3.125 mg tabletIndicati ons:Anemia, unspecified type Take 1 tablet (3.125 mg total) by mouth 2 (two) times a day with meals 024 Active gabapentin (NEURONTIN) 100 mg capsuleIndicat ions:Anemia, unspecified type Take 1 capsule (100 mg total) by mouth 3 (three) times a day 024 Active mexiletine (MEXITIL) 200 mg capsuleIndicat ions:Anemia, unspecified type Take 1 capsule (200 mg total) by mouth 3 (three) times a day 970 Active warfarin (COUMADIN) 2.5 mg tabletIndicati ons:Anemia, unspecified type Last took 09/11/24 A ctive magnesium oxide (MAG-OX) 400 mg (241.3 mg elemental magnesium) tabletIndicati ons:Anemia, unspecified type Take 1 tablet (400 mg total) by mouth 2 (two) times a day 022 Active atorvastatin (LIPITOR) 10 mg tabletIndicati ons:Anemia, unspecified type Take 1 tablet (10 mg total) by mouth daily Active solifenacin (VESIcare) 5 mg tabletIndicati ons:Anemia, unspecified type Take 1 tablet (5 mg total) by mouth nightly Active cyanocobalamin (Vitamin B-12) 1,000 mcg tabletIndicati ons:Anemia, unspecified type Take 1 tablet (1,000 mcg total) by mouth every morning Active ferrous sulfate 325 mg (65 mg of elemental iron) tabletIndicati ons:Anemia, unspecified type Take 1 tablet (325 mg total) by mouth 2 (two) times a day Active nystatin ointment Active albuterol HFA (PROVENTIL HFA,VENTOLIN HFA,PROAIR HFA) 90 mcg/actuation inhaler Inhale 2 puffs every 6 (six) hours as needed for wheezing Active enoxaparin (LOVENOX) 150 mg/mL injection Inject 130 mg under the skin daily Active pantoprazole DR (PROTONIX) 40 mg EC tablet TAKE 1 TABLET BY MOUTH 2 TIMES A DAY BEFORE BREAKFAST AND DINNER. 60 tablet 3 025 Active al & mag hydroxide with simethicone-di phenhydramine- lidocaine (MAGIC MOUTHWASH) suspension 1-1-1 Swish and spit 15 mL 4 (four) times a day as needed (mouthsores/pain) 360 mL 025 Active oxyCODONE (ROXICODONE) 5 mg immediate release tabletIndicati ons:Pain Take 1 tablet (5 mg total) by mouth every 6 (six) hours as needed for pain 30 tablet 025 Active warfarin (COUMADIN) 5 mg tabletIndicati ons:atrial fibrillation 5mg two days, then 2.5mg one day, then 5mg two days 2024 Discontinued(P atient Reported) prochlorperazi ne (Compazine) 10 mg tabletIndicati ons:Malignant neoplasm of lower third of esophagus (HCC) Take 1 tablet (10 mg total) by mouth every 6 (six) hours as needed for nausea or vomiting Use first for nausea 120 tablet 3 025 2024 Discontinued ondansetron (ZOFRAN) 8 mg tabletIndicati ons:Malignant neoplasm of lower third of esophagus (HCC) Take 1 tablet (8 mg total) by mouth every 8 (eight) hours as needed for nausea or vomiting Use if prochlorperazine does not stop nausea 100 tablet 3 025 2024 Discontinued Active Problems Patient Care Coordination No te Formatting of this note migh t be different from the original. Referrring provider: Dr. Lucio Rosas Mr. Marshall Olson is a 74-year-old with esophageal cancer. He initially presented with iron deficiency anemia. On 09/15/2024 the patient underwent an EGD which showed the Z-line was irregular in the distal esophagus. This was biopsied. There was benign-appearing esophageal stenosis. This was dilated. There was gastritis. This was biopsied. There was a nonbleeding gastric ulcer with no stigmata of bleeding also biopsied. The examined stomach was normal. This was biopsied. Biopsies of the duodenum showed no histopathologic abnormality. Biopsies of the stomach showed antral mucosa with mild features of reactive gastropathy. Biopsies of the ulcer showed oxyntic mucosa with superficial ulcer/erosion with fibrin exudate and acute inflammation. Biopsy of the distal esophagus showed intestinal metaplasia consistent with Miller's esophagus. In definitive for low-grade dysplasia. There is no evidence of high-grade dysplasia. Biopsies of the mid and proximal esophagus showed squamous mucosa with mild chronic inflammation and reactive epithelial changes consistent with reflux esophagitis. On 11/17/2024 the patient underwent a repeat EGD which showed esophageal mucosal changes consistent with short-segment Miller's esophagus. This was biopsied. There was a nodule found in the esophagus. This was biopsied. There was gastritis. This was biopsied. The examined duodenum was normal. Biopsies of the gastric body and antrum showed antral mucosa with chemical/reactive gastropathy. Distal esophageal biopsy showed columellar mucosa with goblet cells consistent with Miller's esophagus. Distal esophageal nodule biopsy showed intramucosal moderately differentiated adenocarcinoma. There is a background of Miller's esophagus with high-grade dysplasia. On 12/13/2024 the patient underwent an EGD/EUS which showed a 2 cm ulcerated mass involving half of the luminal circumference noted the GE junction. There had been marked evolution in its endoscopic appearance between 09/2024, 11/26 and today's examination. The mass extends into the submucosa and there was shadowing artifact from the mucosal ulceration. There were 2 retrocardiac lymph nodes noted. These were indeterminate. Patient was staged as a T2 NX MX by Endo sonographic criteria. On 12/13/20[address] the patient underwent a CT of the chest, abdomen and pelvis with contrast which showed a nondistended esophagus. There is no discrete esophageal lesion identified. There is no evidence of metastatic disease in the chest, abdomen or pelvis. On 12/16/2024 the patient underwent a PET scan which showed a small sliding hiatal hernia with mild activity in the distal esophagus, given history of this likely corresponds to biopsy-proven site of malignancy. There is no evidence of FDG avid her enlarged breasts off a MURIEL, gastrohepatic lymphadenopathy or distant metastatic disease. There is a left parotid mass with metabolic activity. This is nonspecific but commonly seen with a primary parotid neoplasm such as a Warthin's tumor. There was circumferential rectal wall thickening without pathologic FDG activity which may be related to mild proctitis. Patient has a history of atrial fibrillation and is on Coumadin/Lovenox. He also has a history of an IA and PE. He has a history of prostate cancer in 2012 with recurrence in 2021 status post radiation and hormonal therapy.. His prior abdominal surgeries include a cholecystectomy and radical prostatectomy. Patient is a former smoker who quit in 2019. Patient presents today for further surgical evaluation. Problem Noted Date Diagnosed Date Mass of left parotid gland 02/14/2025 Assessment & Plan (02/14/2025 12:49 PM CDT): I talked with him quite a bit about this. I think this lesion is benign. 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 The high SUV is a little bit concerning. I think it may be mostly due to recurrent inflammation. We talked about options. I discussed doing another FNA and he really was not interested in pursuing that. We discussed removal of this lesion which I think would be somewhat risky considering his anticoagulated status. Last option would be to watch this and we both agreed to pursue that course. I am recommending a follow up in about 4 months. See me sooner if there should be any significant changes. 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 -Pathology discuss in detail and all questions were answered -Refer for EUS -Refer to Oncology and Cardiothoracic surgery Miller's esophagus with high grade dysplasia Assessment & Plan (11/25/2024 9:41 AM ORGANIC GARDENING TEACHER): EGD September 2024 with irregular Z-line and gastric ulcers. Pathology with Barretts esophagus, indefinite for dysplasia. Repeat EGD November 2024 with Barretts esophagus, pathology with high-grade dysplasia. -Continue pantoprazole 40 mg p.o. b.i.d. History of colon polyps 11/25/2024 Assessment & Plan (11/25/2024 9:42 AM ORGANIC GARDENING TEACHER): Colonoscopy November 2024 with multiple tubular adenomas. -Repeat colonoscopy November 2027 Gastric ulcer 09/23/2024 Anemia due to blood loss 09/23/2024 Rectal bleeding 08/22/2024 Radiation proctitis 08/22/2024 Assessment & Plan (11/25/2024 9:41 AM ORGANIC GARDENING TEACHER): Colonoscopy November 2024 with severe radiation proctitis status post APC. -Consider flex sig with APC, patient advised to call office if rectal bleeding gets worse Eosinophilia 02/22/2024 Iron deficiency anemia, unspecified 02/22/2024 Anemia 02/22/2024 VT (ventricular tachycardia) 05/09/2022 Overview (05/09/2022): Added automatically from request for surgery [id number] Lower urinary tract symptoms (LUTS) 05/24/2020 Malignant neoplasm of prostate 04/25/2013 Immunizations Immunization Administration Dates Next Due Influenza, Unspecified 08/02/2018 Social History Tobacco Use Types Packs/Day Years Used Date Smoking Tobacco: Former Cigarettes 1 25 1 2019 Smokeless Tobacco: Never Tobacco Cessation:Counseling Given: Not Answered Alcohol Use Standard Drinks/Week Comments Yes 6 (1 standard drink = 0.6 oz pur e alcohol) AUDIT-C Answer Date Recorded Q1: How often do you have a drink containing alcohol? Never 01/11/2025 Q2: How many drinks containi ng alcohol do you have on a typical day when you are drinking? Patient does not drink Q3: How often do you have si x or more drinks on one occasion? Never 01/11/2025 Personal Safety Answer Date Recorded Have you ever been in or are you currently in a harmful physical or emotional relationship or is someone making you feel afraid or unsafe? 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 Not on file Not on file Not on file Last Filed Vital Signs Vital Sign Reading Time Taken Comments Blood Pressure 131/71 02/28/2025 12:40 PM CDT Pulse 77 02/28/2025 12:40 PM CDT Temperature 36.3 C (97.4 F) 02/28/2025 12:40 PM CDT Respiratory Rate 16 02/28/2025 12:4 0 PM CDT Oxygen Saturation 99% 02/28/2025 12: 40 PM CDT Inhaled Oxygen Concentration - - Weight 119.2 kg (262 lb 12.8 oz) 2024 12:40 PM CDT Height 180.3 cm (5' 11 ) 02/14/2025 9:32 AM CDT Body Mass Index 36.65 02/14/2025 9:32 AM CDT Plan of Treatment Not on file Medical Devices Implanted Type Area Fire Services Plumber Device Identifier Shelf Expiration Date Model / Serial / Lot Screws And Rods Spine Lumbar [employer] Power Port 8fr [id number] - [id number] Implanted:Qty: 1 on 01/11/2025 by Linda Cardenas PA at [facility] [employer] 08/29/2029 [id number] / / [id number] Procedures Procedure Name Priority Date/Time Associated Diagnosis Comments PROTIME-INR Routine 02/28/2025 12:40 PM CDT EGFR STAT 02/28/2025 12:03 PM CDT Malignant neoplasm of lower third of esophagus (HCC) BLOOD SMEAR REVIEW Routine 02/28/2025 12 :03 PM CDT Malignant neoplasm of lower third of esophagus (HCC) DIFFERENTIAL AUTO Routine 02/28/2025 12: 03 PM CDT Malignant neoplasm of lower third of esophagus (HCC) FERRITIN Routine 02/28/2025 12:03 PM CDT Anemia, unspecified type History of pulmonary embolism IRON PROFILE W/ IBC Routine 02/28/2025 1 2:03 PM CDT Anemia, unspecified type History of pulmonary embolism RETICULOCYTES Routine 02/28/2025 12:03 PM CDT Anemia, unspecified type History of pulmonary embolism CBC WITH AUTO DIFFERENTIAL Routine 02/28/2025 12:03 PM CDT Malignant neoplasm of lower third of esophagus (HCC) COMPREHENSIVE METABOLIC PANEL STAT 02/28/2025 12:03 PM CDT Malignant neoplasm of lower third of esophagus (HCC) RAD ONC ARIA SESSION SUMMARY 02/27/2025 11:32 AM CDT PROTIME-INR Routine 02/24/2025 2:55 PM CDT RAD ONC ARIA SESSION SUMMARY 02/24/2025 11:43 AM CDT RAD ONC ARIA SESSION SUMMARY 02/23/2025 11:42 AM CDT EGFR STAT 02/23/2025 9:31 AM CDT Malignant neoplasm of lower third of esophagus (HCC) DIFFERENTIAL AUTO Routine 02/23/2025 9:3 1 AM CDT Malignant neoplasm of lower third of esophagus (HCC) PROTIME-INR Routine 02/23/2025 9:31 AM CDT Malignant neoplasm of lower third of esophagus (HCC) Abnormal coagulation profile CBC WITH AUTO DIFFERENTIAL Routine 02/23/2025 9:31 AM CDT Malignant neoplasm of lower third of esophagus (HCC) COMPREHENSIVE METABOLIC PANEL STAT 02/23/2025 9:31 AM CDT Malignant neoplasm of lower third of esophagus (HCC) RAD ONC ARIA SESSION SUMMARY 02/22/2025 11:38 AM CDT RAD ONC ARIA SESSION SUMMARY 02/21/2025 11:29 AM CDT RAD ONC ARIA SESSION SUMMARY 02/20/2025 2:36 PM CDT RAD ONC ARIA SESSION SUMMARY 02/17/2025 11:23 AM CDT TRANSFUSE RED BLOOD CELLS Timed 02/16/2025 11:44 AM CDT Anemia, unspecified type RAD ONC ARIA SESSION SUMMARY 02/16/2025 11:15 AM CDT PREPARE RBC Routine 02/15/2025 1:40 PM CDT Anemia, unspecified type CROSSMATCH Routine 02/15/2025 12:27 PM CDT Anemia, unspecified type History of pulmonary embolism EGFR STAT 02/15/2025 12:27 PM CDT Malignant neoplasm of lower third of esophagus (HCC) BLOOD SMEAR REVIEW Routine 02/15/2025 12 :27 PM CDT Anemia, unspecified type History of pulmonary embolism DIFFERENTIAL AUTO Routine 02/15/2025 12: 27 PM CDT Anemia, unspecified type History of pulmonary embolism ANTIBODY SCREEN Routine 02/15/2025 12:27 PM CDT Anemia, unspecified type History of pulmonary embolism ABO/RH Routine 02/15/2025 12:27 PM CDT Anemia, unspecified type History of pulmonary embolism COMPREHENSIVE METABOLIC PANEL STAT 02/15/2025 12:27 PM CDT Malignant neoplasm of lower third of esophagus (HCC) FERRITIN Routine 02/15/2025 12:27 PM CDT Anemia, unspecified type History of pulmonary embolism IRON PROFILE W/ IBC Routine 02/15/2025 1 2:27 PM CDT Anemia, unspecified type History of pulmonary embolism TYPE AND SCREEN Routine 02/15/2025 12:27 PM CDT Anemia, unspecified type History of pulmonary embolism CBC WITH AUTO DIFFERENTIAL Routine 02/15/2025 12:27 PM CDT Anemia, unspecified type History of pulmonary embolism RETICULOCYTES Routine 02/15/2025 12:27 PM CDT Anemia, unspecified type History of pulmonary embolism RAD ONC ARIA SESSION SUMMARY 02/15/2025 11:48 AM CDT RAD ONC ARIA SESSION SUMMARY 02/14/2025 11:28 AM CDT RAD ONC ARIA SESSION SUMMARY 02/13/2025 11:24 AM CDT RAD ONC ARIA SESSION SUMMARY 02/10/2025 11:35 AM CDT BLOOD SMEAR REVIEW Routine 02/09/2025 11 :50 AM CDT Malignant neoplasm of lower third of esophagus (HCC) EGFR STAT 02/09/2025 11:50 AM CDT Malignant neoplasm of lower third of esophagus (HCC) DIFFERENTIAL AUTO Routine 02/09/2025 11: 50 AM CDT Malignant neoplasm of lower third of esophagus (HCC) IRON PROFILE W/ IBC Routine 02/09/2025 1 1:50 AM CDT Anemia, unspecified type History of pulmonary embolism FERRITIN Routine 02/09/2025 11:50 AM CDT Anemia, unspecified type History of pulmonary embolism CBC WITH AUTO DIFFERENTIAL Routine 02/09/2025 11:50 AM CDT Malignant neoplasm of lower third of esophagus (HCC) COMPREHENSIVE METABOLIC PANEL STAT 02/09/2025 11:50 AM CDT Malignant neoplasm of lower third of esophagus (HCC) RAD ONC ARIA SESSION SUMMARY 02/09/2025 11:22 AM CDT RAD ONC ARIA SESSION SUMMARY 02/08/2025 11:24 AM CDT RAD ONC ARIA SESSION SUMMARY 02/07/2025 11:32 AM CDT RAD ONC ARIA SESSION SUMMARY 02/06/2025 11:38 AM CDT RAD ONC ARIA SESSION SUMMARY 02/03/2025 11:34 AM CDT EGFR STAT 02/02/2025 11:51 AM CDT Malignant neoplasm of lower third of esophagus (HCC) DIFFERENTIAL AUTO Routine 02/02/2025 11: 51 AM CDT Malignant neoplasm of lower third of esophagus (HCC) CBC WITH AUTO DIFFERENTIAL Routine 02/02/2025 11:51 AM CDT Malignant neoplasm of lower third of esophagus (HCC) COMPREHENSIVE METABOLIC PANEL STAT 02/02/2025 11:51 AM CDT Malignant neoplasm of lower third of esophagus (HCC) RAD ONC ARIA SESSION SUMMARY 02/02/2025 11:33 AM CDT TRANSFUSE RED BLOOD CELLS Timed 02/01/2025 12:10 PM CDT Anemia, unspecified type RAD ONC ARIA SESSION SUMMARY 02/01/2025 11:45 AM CDT PREPARE RBC Routine 02/01/2025 10:48 AM CDT Anemia, unspecified type FERRITIN Routine 02/01/2025 9:10 AM CDT Anemia, unspecified type History of pulmonary embolism IRON PROFILE W/ IBC Routine 02/01/2025 9 :10 AM CDT Anemia, unspecified type History of pulmonary embolism RETICULOCYTES Routine 02/01/2025 9:10 AM CDT Anemia, unspecified type History of pulmonary embolism CROSSMATCH Routine 02/01/2025 9:02 AM CDT Anemia, unspecified type History of pulmonary embolism DIFFERENTIAL AUTO Routine 02/01/2025 9:0 2 AM CDT Anemia, unspecified type History of pulmonary embolism ANTIBODY SCREEN Routine 02/01/2025 9:02 AM CDT Anemia, unspecified type History of pulmonary embolism ABO/RH Routine 02/01/2025 9:02 AM CDT Anemia, unspecified type History of pulmonary embolism CBC WITH AUTO DIFFERENTIAL Routine 02/01/2025 9:02 AM CDT Anemia, unspecified type History of pulmonary embolism TYPE AND SCREEN Routine 02/01/2025 9:02 AM CDT Anemia, unspecified type History of pulmonary embolism RAD ONC ARIA SESSION SUMMARY 01/31/2025 11:32 AM CDT RAD ONC ARIA SESSION SUMMARY 01/30/2025 11:29 AM CDT XR PELVIS 1 OR 2 VIEWS Schedule Routine, Read Routine (OP Routine) 01/27/2025 12:49 PM CDT Malignant neoplasm of lower third of esophagus (HCC) Acute pain RAD ONC ARIA SESSION SUMMARY 01/27/2025 11:39 AM CDT EGFR STAT 01/26/2025 12:21 PM CDT Malignant neoplasm of lower third of esophagus (HCC) DIFFERENTIAL AUTO Routine 01/26/2025 12: 21 PM CDT Malignant neoplasm of lower third of esophagus (HCC) CBC WITH AUTO DIFFERENTIAL Routine 01/26/2025 12:21 PM CDT Malignant neoplasm of lower third of esophagus (HCC) COMPREHENSIVE METABOLIC PANEL STAT 01/26/2025 12:21 PM CDT Malignant neoplasm of lower third of esophagus (HCC) RAD ONC ARIA SESSION SUMMARY 01/26/2025 11:40 AM CDT RAD ONC ARIA SESSION SUMMARY 01/25/2025 11:38 AM CDT RAD ONC ARIA SESSION SUMMARY 01/24/2025 11:37 AM CDT RAD ONC ARIA SESSION SUMMARY 01/23/2025 11:40 AM CDT RAD ONC ARIA SESSION SUMMARY 01/20/2025 11:48 AM CDT EGFR STAT 01/19/2025 8:52 AM CDT Malignant neoplasm of lower third of esophagus (HCC) DIFFERENTIAL AUTO Routine 01/19/2025 8:5 2 AM CDT Malignant neoplasm of lower third of esophagus (HCC) CBC WITH AUTO DIFFERENTIAL Routine 01/19/2025 8:52 AM CDT Malignant neoplasm of lower third of esophagus (HCC) COMPREHENSIVE METABOLIC PANEL STAT 01/19/2025 8:52 AM CDT Malignant neoplasm of lower third of esophagus (HCC) RAD ONC ARIA SESSION SUMMARY 01/19/2025 8:34 AM CDT TRANSFUSE RED BLOOD CELLS Timed 01/18/2025 12:38 PM CDT Anemia, unspecified type PREPARE RBC Routine 01/18/2025 11:31 AM CDT Anemia, unspecified type CROSSMATCH Routine 01/18/2025 9:42 AM CDT Anemia, unspecified type History of pulmonary embolism EGFR Routine 01/18/2025 9:42 AM CDT Anemia, unspecified type History of pulmonary embolism DIFFERENTIAL AUTO Routine 01/18/2025 9:4 2 AM CDT Anemia, unspecified type History of pulmonary embolism ANTIBODY SCREEN Routine 01/18/2025 9:42 AM CDT Anemia, unspecified type History of pulmonary embolism ABO/RH Routine 01/18/2025 9:42 AM CDT Anemia, unspecified type History of pulmonary embolism CBC WITH AUTO DIFFERENTIAL Routine 01/18/2025 9:42 AM CDT Anemia, unspecified type History of pulmonary embolism COMPREHENSIVE METABOLIC PANEL Routine 01/18/2025 9:42 AM CDT Anemia, unspecified type History of pulmonary embolism FERRITIN Routine 01/18/2025 9:42 AM CDT Anemia, unspecified type History of pulmonary embolism IRON PROFILE W/ IBC Routine 01/18/2025 9 :42 AM CDT Anemia, unspecified type History of pulmonary embolism RETICULOCYTES Routine 01/18/2025 9:42 AM CDT Anemia, unspecified type History of pulmonary embolism TYPE AND SCREEN Routine 01/18/2025 9:42 AM CDT Anemia, unspecified type History of pulmonary embolism PORT PLACEMENT CHEST >5 YEARS Schedule Routine, Read Routine (OP Routine) 01/11/2025 12:57 PM CDT Malignant neoplasm of lower third of esophagus (HCC) PROTIME-INR Routine 01/11/2025 10:52 AM CDT STRESS TEST FOR DUAL READ Schedule Routine, Read Routine (OP Routine) 01/06/2025 9:00 AM ORGANIC GARDENING TEACHER Atrial fibrillation, unspecified type (HCC) Coronary artery disease, unspecified vessel or lesion type, unspecified whether angina present, unspecified whether [place] or transplanted heart NM MPI SPECT (REST AND/OR STRESS) MULTIPLE STUDIES Schedule Routine, Read Routine (OP Routine) 01/06/2025 9:00 AM ORGANIC GARDENING TEACHER Atrial fibrillation, unspecified type (HCC) Coronary artery disease, unspecified vessel or lesion type, unspecified whether angina present, unspecified whether [place] or transplanted heart PULMONARY FUNCTION TEST (PFT) Routine 01/05/2025 8:10 AM ORGANIC GARDENING TEACHER Atrial fibrillation, unspecified type (HCC) Coronary artery disease, unspecified vessel or lesion type, unspecified whether angina present, unspecified whether [place] or transplanted heart EGFR Routine 01/04/2025 8:34 AM ORGANIC GARDENING TEACHER Anemia, unspecified type History of pulmonary embolism DIFFERENTIAL AUTO Routine 01/04/2025 8:3 4 AM ORGANIC GARDENING TEACHER Anemia, unspecified type History of pulmonary embolism CBC WITH AUTO DIFFERENTIAL Routine 01/04/2025 8:34 AM ORGANIC GARDENING TEACHER Anemia, unspecified type History of pulmonary embolism COMPREHENSIVE METABOLIC PANEL Routine 01/04/2025 8:34 AM ORGANIC GARDENING TEACHER Anemia, unspecified type History of pulmonary embolism FERRITIN Routine 01/04/2025 8:34 AM ORGANIC GARDENING TEACHER Anemia, unspecified type History of pulmonary embolism IRON PROFILE W/ IBC Routine 01/04/2025 8 :34 AM ORGANIC GARDENING TEACHER Anemia, unspecified type History of pulmonary embolism RETICULOCYTES Routine 01/04/2025 8:34 AM ORGANIC GARDENING TEACHER Anemia, unspecified type History of pulmonary embolism EGFR Routine 12/27/2024 1:25 PM ORGANIC GARDENING TEACHER Anemia, unspecified type History of pulmonary embolism DIFFERENTIAL AUTO Routine 12/27/2024 1:2 5 PM ORGANIC GARDENING TEACHER Anemia, unspecified type History of pulmonary embolism CBC WITH AUTO DIFFERENTIAL Routine 12/27/2024 1:25 PM ORGANIC GARDENING TEACHER Anemia, unspecified type History of pulmonary embolism COMPREHENSIVE METABOLIC PANEL Routine 12/27/2024 1:25 PM ORGANIC GARDENING TEACHER Anemia, unspecified type History of pulmonary embolism FERRITIN Routine 12/27/2024 1:25 PM ORGANIC GARDENING TEACHER Anemia, unspecified type History of pulmonary embolism IRON PROFILE W/ IBC Routine 12/27/2024 1 :25 PM ORGANIC GARDENING TEACHER Anemia, unspecified type History of pulmonary embolism RETICULOCYTES Routine 12/27/2024 1:25 PM ORGANIC GARDENING TEACHER Anemia, unspecified type History of pulmonary embolism PET/CT FDG SKULL TO THIGH Schedule Routine, Read Routine (OP Routine) 12/16/2024 9:43 AM ORGANIC GARDENING TEACHER Malignant neoplasm of lower third of esophagus (HCC) POCT GLUCOSE DEVICE Routine 12/16/2024 7 :51 AM ORGANIC GARDENING TEACHER EGFR Routine 12/14/2024 9:08 AM ORGANIC GARDENING TEACHER Anemia, unspecified type History of pulmonary embolism DIFFERENTIAL AUTO Routine 12/14/2024 9:0 8 AM ORGANIC GARDENING TEACHER Anemia, unspecified type History of pulmonary embolism CBC WITH AUTO DIFFERENTIAL Routine 12/14/2024 9:08 AM ORGANIC GARDENING TEACHER Anemia, unspecified type History of pulmonary embolism COMPREHENSIVE METABOLIC PANEL Routine 12/14/2024 9:08 AM ORGANIC GARDENING TEACHER Anemia, unspecified type History of pulmonary embolism FERRITIN Routine 12/14/2024 9:08 AM ORGANIC GARDENING TEACHER Anemia, unspecified type History of pulmonary embolism IRON PROFILE W/ IBC Routine 12/14/2024 9 :08 AM ORGANIC GARDENING TEACHER Anemia, unspecified type History of pulmonary embolism RETICULOCYTES Routine 12/14/2024 9:08 AM ORGANIC GARDENING TEACHER Anemia, unspecified type History of pulmonary embolism US ENDOSCOPIC IP Routine 12/13/2024 10:22 AM ORGANIC GARDENING TEACHER Malignant neoplasm of lower third of esophagus (HCC) UPPER EUS 12/13/2024 10:03 AM ORGANIC GARDENING TEACHER PROTIME-INR STAT 12/13/2024 7:23 AM ORGANIC GARDENING TEACHER Malignant neoplasm of lower third of esophagus (HCC) Atrial fibrillation, unspecified type (HCC) CT CHEST ABDOMEN PELVIS W CONTRAST Schedule Routine, Read Routine (OP Routine) 12/13/2024 7:09 AM ORGANIC GARDENING TEACHER Malignant neoplasm of lower third of esophagus (HCC) POCT CREATININE - DEVICE Routine 12/13/2024 6:50 AM ORGANIC GARDENING TEACHER TRANSFUSE RED BLOOD CELLS Timed 12/07/2024 12:56 PM ORGANIC GARDENING TEACHER Anemia, unspecified type PREPARE RBC Routine 12/07/2024 10:02 AM ORGANIC GARDENING TEACHER Anemia, unspecified type CROSSMATCH Routine 12/07/2024 9:29 AM ORGANIC GARDENING TEACHER Anemia, unspecified type EGFR Routine 12/07/2024 9:29 AM ORGANIC GARDENING TEACHER Anemia, unspecified type DIFFERENTIAL AUTO Routine 12/07/2024 9:2 9 AM ORGANIC GARDENING TEACHER Anemia, unspecified type ANTIBODY SCREEN Routine 12/07/2024 9:29 AM ORGANIC GARDENING TEACHER Anemia, unspecified type ABO/RH Routine 12/07/2024 9:29 AM ORGANIC GARDENING TEACHER Anemia, unspecified type TYPE AND SCREEN Routine 12/07/2024 9:29 AM ORGANIC GARDENING TEACHER Anemia, unspecified type CBC WITH AUTO DIFFERENTIAL Routine 12/07/2024 9:29 AM ORGANIC GARDENING TEACHER Anemia, unspecified type COMPREHENSIVE METABOLIC PANEL Routine 12/07/2024 9:29 AM ORGANIC GARDENING TEACHER Anemia, unspecified type FERRITIN Routine 12/07/2024 9:29 AM ORGANIC GARDENING TEACHER Anemia, unspecified type RETICULOCYTES Routine 12/07/2024 9:29 AM ORGANIC GARDENING TEACHER Anemia, unspecified type IRON PROFILE W/ IBC Routine 12/07/2024 9 :29 AM ORGANIC GARDENING TEACHER Anemia, unspecified type COLONOSCOPY 11/17/2024 9:34 AM ORGANIC GARDENING TEACHER from Last 3 Months or Most Recently Relevant to Health Maintenance Results * (ABNORMAL) Protime-INR (02/28/2025 12:40 PM CDT) PT 41.1(H) 12.0 - 14.6 sec Comment: Ref Range High Testing performed by: [facility], [address] [place] [address]., [address] INR 4.4(H) 0.9 - 1.2 [facility] SERNA Comment: Ref Range High Interpretive data Oral anticoagulant therapeutic ranges: Venous thromboembolism prophylaxis or treatment: 2.0-3.0 CARDIOLOGY Standard range: 2.0-3.0 High-intensity range: 2.5-3.5 Refer to indication-specific guidelines for appropriate target ranges for prosthetic heart valve replacement. Current interpretive data was last revised on 2019. Testing performed by: [facility], [address] [place] [address]., [address] Blood 02/28/2025 12:4 0 PM CDT 02/28/2025 1:32 PM CDT us Jas Alcala MD LAB BLOOD ORDERABLES Final R esult ISAAC SERNA [address] [facility] [place] [address] * Blood smear review (02/28/2025 12:03 PM CDT) RBC morphology Consistent with RBC Indicies Comment:Testing performed by : [address] [address] Platelet estimate Adequate ISAAC Comment:Testing performed by : [address] [address] Blood 02/28/2025 12:0 3 PM CDT 02/28/2025 12:05 PM CDT Bianca Hunter MD LAB BLOOD ORDERABLES Final Result [facility] [place] [address] * eGFR (02/28/2025 12:03 PM CDT) eGFR 70 >=60 mL/min/1. 73 m2 Comment: Interpretive Data [...] was last reviewed 2021. Testing performed by: [address] [address] Blood 02/28/2025 12:0 3 PM CDT 02/28/2025 12:05 PM CDT us Bianca Hunter MD LAB BLOOD ORDERABLES Final Result ISAAC [address] [facility] Department [place] [address] * (ABNORMAL) Differential, auto (02/28/2025 12:03 PM CDT) Neutrophil abs 0.91(L) 1.50 - 6.50 K/cumm Comment:Testing performed by : [address] [address] Imm gran abs 0.06 0.00 - 0.10 K/cumm ISAAC Comment:Testing performed by : [address] [address] Lymphocyte abs 0.33(L) 0.80 - 3.30 K/cumm ISAAC Comment:Testing performed by : [address] [address] Monocyte abs 0.41 0.20 - 0.80 K/cumm ISAAC Comment:Testing performed by : [address] [address] Eosinophil abs 0.04 0.00 - 0.50 K/cumm ISAAC Comment:Testing performed by : [address] [address] Basophil abs 0.02 0.00 - 0.10 K/cumm ISAAC Comment:Testing performed by : [address] [address] Neutrophil pct 51.4 % ISAAC Comment: Differential consistent with previous result. Interpretive Data Percent cell count reference ranges are not reported, since discordance with absolute values may lead to misinterpretation of CBC data. Current Interpretive Data was last revised on 2018. Testing performed by: [address] [address] Imm gran pct 3.4 % ISAAC Comment: Interpretive Data Percent cell count reference ranges are not reported, since discordance with absolute values may lead to misinterpretation of CBC data. Current Interpretive Data was last revised on 2018. Testing performed by: [address] [address] Lymphocyte pct 18.6 % [facility] Comment: Interpretive Data Percent cell count reference ranges are not reported, since discordance with absolute values may lead to misinterpretation of CBC data. Current Interpretive Data was last revised on 2018. Testing performed by: [address] [address] Monocyte pct 23.2 % [facility] Comment: Interpretive Data Percent cell count reference ranges are not reported, since discordance with absolute values may lead to misinterpretation of CBC data. Current Interpretive Data was last revised on 2018. Testing performed by: [address] [address] Eosinophil pct 2.3 % [facility] Comment: Interpretive Data Percent cell count reference ranges are not reported, since discordance with absolute values may lead to misinterpretation of CBC data. Current Interpretive Data was last revised on 2018. Testing performed by: [address] [address] Basophil pct 1.1 % [facility] Comment: Interpretive Data Percent cell count reference ranges are not reported, since discordance with absolute values may lead to misinterpretation of CBC data. Current Interpretive Data was last revised on 2018. Testing performed by: [address] [address] Blood 02/28/2025 12:0 3 PM CDT 02/28/2025 12:05 PM CDT us Bianca Hunter MD LAB BLOOD ORDERABLES Final Result ISAAC [address] [facility] Department [place] [address] * (ABNORMAL) Iron profile w/ IBC (02/28/2025 12:03 PM CDT) Iron 56 50 - 150 mcg/dL Comment:Testing performed by : [address] [address] TIBC 164(L) 250 - 400 mcg/dL ISAAC Comment:Testing performed by : [address] [address] Transferrin saturation 34 20 - 50 % ISAAC Comment:Testing performed by : [address] [address] Blood 02/28/2025 12:0 3 PM CDT 02/28/2025 1:32 PM CDT us Nena Cano TOOL POLISHING MACHINE OPERATOR LAB BLOOD ORDERABLES Final Result IS[facility]AC [address] [facility] Department [place] [address] * (ABNORMAL) CBC with auto differential (02/28/2025 12:03 PM CDT) WBC 1.77(L) 3.80 - 9.90 K/cumm Comment:Testing performed by : [address] [address] Hgb 9.3(L) 13.0 - 17.5 g/dL ISAAC SERNA Comment:Testing performed by : [address] [address] Hct 28.9(L) 38.9 - 50.3 % [facility] SERNA Comment:Testing performed by : [address] [address] Plt 168 150 - 400 K/cumm ISAAC Comment:Testing performed by : [address] [address] MPV 9.5 9.1 - 12.3 fL [facility] SERNA Comment:Testing performed by : [address] [address] RBC 3.22(L) 4.30 - 5.80 M/cumm IS[facility]AC SERNA Comment:Testing performed by : [address] [address] MCV 89.8 81.3 - 96.4 fL [facility] SERNA Comment:Testing performed by : [address] [place]., [address] MCH 28.9 27.1 - 33.3 pg ISAAC Comment:Testing performed by : [address] [address] MCHC 32.2(L) 32.3 - 35.7 g/dL IS[facility]AC SERNA Comment:Testing performed by : [address] [address] RDW CV 18.7(H) 11.1 - 14.9 % ISAAC Comment:Testing performed by : [address] [address] RDW SD 58.7(H) 35.7 - 48.1 fL [facility] Comment:Testing performed by : [address] [address] NRBC abs 0.00 0.00 - 0.01 K/cumm ISAAC Comment:Testing performed by : [address] [address] ANC Prelim 0.91(L) 1.50 - 6.50 K/cumm ISAAC Comment: Interpretive Data The rapid ANC is a preliminary automated count and may vary from the final ANC (Neut Abs) reported in the WBC differential that follows. Current interpretive data was last revised 2025. Testing performed by: [address] [address] Blood 02/28/2025 12:0 3 PM CDT 02/28/2025 12:05 PM CDT us Bianca Hunter MD LAB BLOOD ORDERABLES [facility] [address] [facility] Department [place] [address] * (ABNORMAL) Reticulocyte Count (02/28/2025 12:03 PM CDT) Retics, absolute 86 20 - 87 K/cumm Comment:Testing performed by : [address] [address] Retics 2.7 0.4 - 2.9 % IS[facility]AC SERNA Comment:Testing performed by : [address] [address] Reticulocyte Hgb 30.4(L) 30.5 - 38.0 pg IS[facility]AC SERNA Comment:Testing performed by : [address] [address] Blood 02/28/2025 12:0 3 PM CDT 02/28/2025 12:05 PM CDT Nena Cano TOOL POLISHING MACHINE OPERATOR LAB BLOOD ORDERABLES Final Result Performing Organization Address City/[facility]/ZIP Co de Phone Number [address] [place] [address] * Ferritin (02/28/2025 12:03 PM CDT) Pathologist [facility] Ferritin 208 30 - 400 ng/mL Comment:Testing performed by : [address] [address] Blood 02/28/2025 12:0 3 PM CDT 02/28/2025 1:32 PM CDT Nena Cano TOOL POLISHING MACHINE OPERATOR LAB BLOOD ORDERABLES Final Result Performing Organization Address City/[facility]/ZIP Co de Phone Number [address] [place] [address] * (ABNORMAL) Comprehensive metabolic panel (02/28/2025 12:03 PM CDT) Sodium 138 135 - 145 mmol/L Comment:Testing performed by : [address] [address] Potassium, pl 3.6 3.3 - 4.9 mmol/L IS[facility]AC SERNA Comment:Testing performed by : [address] [address] Chloride 106 97 - 110 mmol/L [facility] SERNA Comment:Testing performed by : [address] [address] CO2 22 22 - 32 mmol/L IS[facility] SERNA Comment:Testing performed by : [address] [address] Anion gap 10 2 - 15 mmol/L ISAAC Comment:Testing performed by : [address] [address] BUN 12 6 - 25 mg/dL IS[facility]AC Comment:Testing performed by : [address] [address] Creatinine 1.10 0.80 - 1.30 mg/dL ISAAC Comment:Testing performed by : [address] [address] Glucose 91 70 - 199 mg/dL ISAAC Comment: Interpretive [...] was last revised 2022. Testing performed by: [address] [address] Calcium 8.7 8.5 - 10.3 mg/dL ISAAC Comment:Testing performed by : [address] [address] Bilirubin, total 0.4 0.1 - 1.2 mg/dL ISAAC Comment:Testing performed by : [address] [address] Protein, pl 5.6(L) 6.5 - 8.5 g/dL IS[facility] Comment:Testing performed by : [address] [address] Albumin 3.2(L) 3.5 - 5.0 g/dL IS[facility]AC Comment:Testing performed by : [address] [address] Alk phos 64 40 - 130 Units/L ISAAC Comment:Testing performed by : [facility], [address] [place] [address]., [address] ALT 14 7 - 55 Units/L IS[facility]AC SERNA Comment:Testing performed by : [address] [address] AST 19 10 - 50 Units/L IS[facility]AC SERNA Comment:Testing performed by : [facility], [address] [place] [address]., [address] Blood 02/28/2025 12:0 3 PM CDT 02/28/2025 12:05 PM CDT Bianca Hunter MD LAB BLOOD ORDERABLES Final Result Performing Organization Address City/[facility]/ZIP Co de Phone Number ISAAC [address] [facility] Department [place] [address] * RAD ONC ARIA SESSION SUMMARY (02/27/2025 11:32 AM CDT) Course Name [id number] 025 ARIA Course Plan Date 01/04/2025 11:04 AM ARIA Elapsed Days 39 ARIA Treatment Start Date 01/19/2025 ARIA Treatment Site [id number] ARIA Dose Given To Date (cGy) 540 ARIA Session Dosage Given (cGy) 180 ARIA Plan ID BOOST ESOPH ARIA Fractions Treated 3 ARIA Prescribed Dose Per Fraction (cGy) 180 ARIA Prescribed Total Dose (cGy) 540 ARIA 02/27/2025 11:3 2 AM CDT us Not In File Miscellaneous RADIATION ONCOLOGY ORD ERABLES Final Result ARIA * (ABNORMAL) Protime-INR (02/24/2025 2:55 PM CDT) PT 52.2(H) 12.0 - 14.6 sec Comment: Ref Range High Testing performed by: [facility], [address] [place] [address]., [address] INR 5.9(C) 0.9 - 1.2 ISAAC SERNA Comment: Ref Range High Critical value. Results called to and read back by: Critical Result called to and read back by Ceci Antony NP for [facility], DATE: 2025-02-24 18:09:13 BY: Adrianna Mascorro MLS [id number] Interpretive data Oral anticoagulant therapeutic ranges: Venous thromboembolism prophylaxis or treatment: 2.0-3.0 CARDIOLOGY Standard range: 2.0-3.0 High-intensity range: 2.5-3.5 Refer to indication-specific guidelines for appropriate target ranges for prosthetic heart valve replacement. Current interpretive data was last revised on 2019. Testing performed by: [facility], [address] [place] [address]., [address] Blood 02/24/2025 2:55 PM CDT 02/24/2025 4:04 PM CDT us Jas Alcala MD LAB BLOOD ORDERABLES Final R esult [facility] 35[address] [facility] [place] [address] * RAD ONC ARIA SESSION SUMMARY (02/24/2025 11:43 AM CDT) Course Name [id number] 025 ARIA Course Plan Date 01/04/2025 11:04 AM ARIA Elapsed Days 36 ARIA Treatment Start Date 01/19/2025 ARIA Treatment Site [id number] ARIA Dose Given To Date (cGy) 360 ARIA Session Dosage Given (cGy) 180 ARIA Plan ID BOOST ESOPH ARIA Fractions Treated 2 ARIA Prescribed Dose Per Fraction (cGy) 180 ARIA Prescribed Total Dose (cGy) 540 ARIA 02/24/2025 11:4 3 AM CDT us Not In File Miscellaneous RADIATION ONCOLOGY ORD ERABLES Final Result ARIA * RAD ONC ARIA SESSION SUMMARY (02/23/2025 11:42 AM CDT) Course Name [id number] 025 ARIA Course Plan Date 01/04/2025 11:04 AM ARIA Elapsed Days 35 ARIA Treatment Start Date 01/19/2025 ARIA Treatment Site [id number] ARIA Dose Given To Date (cGy) 180 ARIA Session Dosage Given (cGy) 180 ARIA Plan ID BOOST ESOPH ARIA Fractions Treated 1 ARIA Prescribed Dose Per Fraction (cGy) 180 ARIA Prescribed Total Dose (cGy) 540 ARIA 02/23/2025 11:4 2 AM CDT us Not In File Miscellaneous RADIATION ONCOLOGY ORD ERABLES Final Result ARIA * eGFR (02/23/2025 9:31 AM CDT) eGFR 63 >=60 mL/min/1. 73 m2 Comment: Interpretive Data [...] was last reviewed 2021. Testing performed by: [facility], [address] [place] [address]., [address] Blood 02/23/2025 9:31 AM CDT 02/23/2025 9:46 AM CDT us Bianca Hunter MD LAB BLOOD ORDERABLES Final Result IS[facility]AC [address] [facility] [place] [address] * (ABNORMAL) Differential, auto (02/23/2025 9:31 AM CDT) Neutrophil abs 0.19(C) 1.50 - 6.50 K/cumm Comment: This result has been called to Meme Dean RN Epic Secure Chat by [id number] on 02/23/2025 09:58:21, and has been read back. Testing performed by: [address] [address] Imm gran abs 0.01 0.00 - 0.10 K/cumm ISAAC Comment:Testing performed by : [address] [address] Lymphocyte abs 0.20(L) 0.80 - 3.30 K/cumm [facility] Comment:Testing performed by : [address] [address] Monocyte abs 0.40 0.20 - 0.80 K/cumm [facility] Comment:Testing performed by : [address] [address] Eosinophil abs 0.03 0.00 - 0.50 K/cumm [facility] Comment:Testing performed by : [address] [address] Basophil abs 0.01 0.00 - 0.10 K/cumm [facility] Comment:Testing performed by : [address] [address] Neutrophil pct 22.6 % [facility] Comment: Interpretive Data Percent cell count reference ranges are not reported, since discordance with absolute values may lead to misinterpretation of CBC data. Current Interpretive Data was last revised on 2018. Testing performed by: [address] [address] Imm gran pct 1.2 % [facility] Comment: Interpretive Data Percent cell count reference ranges are not reported, since discordance with absolute values may lead to misinterpretation of CBC data. Current Interpretive Data was last revised on 2018. Testing performed by: [address] [address] Lymphocyte pct 23.8 % [facility] Comment: Interpretive Data Percent cell count reference ranges are not reported, since discordance with absolute values may lead to misinterpretation of CBC data. Current Interpretive Data was last revised on 2018. Testing performed by: [address] [address] Monocyte pct 47.6 % [facility] Comment: Interpretive Data Percent cell count reference ranges are not reported, since discordance with absolute values may lead to misinterpretation of CBC data. Current Interpretive Data was last revised on 2018. Testing performed by: [address] [address] Eosinophil pct 3.6 % [facility] Comment: Interpretive Data Percent cell count reference ranges are not reported, since discordance with absolute values may lead to misinterpretation of CBC data. Current Interpretive Data was last revised on 2018. Testing performed by: [address] [address] Basophil pct 1.2 % [facility] Comment: Interpretive Data Percent cell count reference ranges are not reported, since discordance with absolute values may lead to misinterpretation of CBC data. Current Interpretive Data was last revised on 2018. Testing performed by: [address] [address] Blood 02/23/2025 9:31 AM CDT 02/23/2025 9:46 AM CDT Bianca Hunter MD LAB BLOOD ORDERABLES Final Result ISAAC [address] [facility] Department of Laboratories [place], [place] [id number] * (ABNORMAL) CBC with auto differential (02/23/2025 9:31 AM CDT) WBC 0.84(C) 3.80 - 9.90 K/cumm Comment: This result has been called to Meme Dean RN Epic Secure Chat by [id number] on 02/23/2025 09:58:21, and has been read back. Testing performed by: [address] [address] Hgb 9.0(L) 13.0 - 17.5 g/dL ISAAC Comment:Testing performed by : [address] [address] Hct 28.2(L) 38.9 - 50.3 % [facility] Comment:Testing performed by : [address] [address] Plt 164 150 - 400 K/cumm ISAAC Comment:Testing performed by : [address], [address] MPV 9.3 9.1 - 12.3 fL [facility] Comment:Testing performed by : [address], [address] RBC 3.14(L) 4.30 - 5.80 M/cumm [facility] Comment:Testing performed by : [address] [address] MCV 89.8 81.3 - 96.4 fL [facility] Comment:Testing performed by : [address] [address] MCH 28.7 27.1 - 33.3 pg [facility] Comment:Testing performed by : [address] [address] MCHC 31.9(L) 32.3 - 35.7 g/dL [facility] Comment:Testing performed by : [address] [address] RDW CV 18.1(H) 11.1 - 14.9 % [facility] Comment:Testing performed by : [address] [address] RDW SD 57.3(H) 35.7 - 48.1 fL [facility] Comment:Testing performed by : [address] [address] NRBC abs 0.00 0.00 - 0.01 K/cumm ISAAC Comment:Testing performed by : [address], [address] ANC Prelim 0.19(L) 1.50 - 6.50 K/cumm ISAAC Comment: Interpretive Data The rapid ANC is a preliminary automated count and may vary from the final ANC (Neut Abs) reported in the WBC differential that follows. Current interpretive data was last revised 2025. Testing performed by: [address] [address] Morphologic Screen Results confirmed by manual morphology review. IS[facility]AC Comment:Testing performed by : [address] [address] Blood 02/23/2025 9:31 AM CDT 02/23/2025 9:46 AM CDT Bianca Hunter MD LAB BLOOD ORDERABLES Final Result [facility] [address] [facility] [place] [address] * (ABNORMAL) Protime-INR (02/23/2025 9:31 AM CDT) PT 49.1(H) 12.0 - 14.6 sec Comment: Ref Range High Testing performed by: [address] [address] INR 5.5(C) 0.9 - 1.2 IAS[facility] Comment: Ref Range High Critical value. Results called to and read back by: Critical Result called to and read back by Meme Dean RN [facility] Secure Chat, DATE: 2025-02-23 11:55:31 BY: [id number] Interpretive data Oral anticoagulant therapeutic ranges: Venous thromboembolism prophylaxis or treatment: 2.0-3.0 CARDIOLOGY Standard range: 2.0-3.0 High-intensity range: 2.5-3.5 Refer to indication-specific guidelines for appropriate target ranges for prosthetic heart valve replacement. Current interpretive data was last revised on 2019. Testing performed by: [address] [address] Blood 02/23/2025 9:31 AM CDT 02/23/2025 11:32 AM CDT us Bianca Hunter MD LAB BLOOD ORDERABLES Final Result IS[facility]AC [address] [facility] Department [place] [address] * (ABNORMAL) Comprehensive metabolic panel (02/23/2025 9:31 AM CDT) Sodium 142 135 - 145 mmol/L Comment:Testing performed by : [address] [address] Potassium, pl 3.7 3.3 - 4.9 mmol/L ISAAC Comment:Testing performed by : [address] [address] Chloride 109 97 - 110 mmol/L ISAAC Comment:Testing performed by : [address] [address] CO2 22 22 - 32 mmol/L IS[facility] Comment:Testing performed by : [address] [address] Anion gap 11 2 - 15 mmol/L ISAAC Comment:Testing performed by : [address] [address] BUN 15 6 - 25 mg/dL ISAAC Comment:Testing performed by : [address] [address] Creatinine 1.20 0.80 - 1.30 mg/dL ISAAC Comment:Testing performed by : [address] [address] Glucose 102 70 - 199 mg/dL ISAAC [...] was last revised 2022. Testing performed by: [facility], [address] [place] [address]., [address] Calcium 8.6 8.5 - 10.3 mg/dL ISA[facility] Comment:Testing performed by : [address] [address] Bilirubin, total 0.4 0.1 - 1.2 mg/dL [facility] Comment:Testing performed by : [address] [address] Protein, pl 5.8(L) 6.5 - 8.5 g/dL [facility] Comment:Testing performed by : [address] [address] Albumin 3.2(L) 3.5 - 5.0 g/dL IS[facility]AC Comment:Testing performed by : [address] [address] Alk phos 58 40 - 130 Units/L [facility] Comment:Testing performed by : [address] [address] ALT 11 7 - 55 Units/L IS[facility] Comment:Testing performed by : [address] [address] AST 16 10 - 50 Units/L ISAAC Comment:Testing performed by : [address] [address] Blood 02/23/2025 9:31 AM CDT 02/23/2025 9:46 AM CDT Bianca Hunter MD LAB BLOOD ORDERABLES Final Result [place] [id number] [facility] Department [place] [address] * RAD ONC ARIA SESSION SUMMARY (02/22/2025 11:38 AM CDT) Course Name [id number]_20 25 ARIA Course Plan Date 01/04/2025 11:04 AM ARIA Elapsed Days 34 ARIA Treatment Start Date 01/19/2025 ARIA Treatment Site [id number] ARIA Dose Given To Date (cGy) 4,500 ARIA Session Dosage Given (cGy) 180 ARIA Plan ID INITIAL ESOPH ARIA Fractions Treated 25 ARIA Prescribed Dose Per Fraction (cGy) 180 ARIA Prescribed Total Dose (cGy) 4,500 ARIA 02/22/2025 11:3 8 AM CDT us Not In File Miscellaneous RADIATION ONCOLOGY ORD ERABLES Final Result Performing Organization Address [facility] Co de Phone Number ARIA * RAD ONC ARIA SESSION SUMMARY (02/21/2025 11:29 AM CDT) Course Name [id number]_20 25 ARIA Course Plan Date 01/04/2025 11:04 AM ARIA Elapsed Days 33 ARIA Treatment Start Date 01/19/2025 ARIA Treatment Site [id number] ARIA Dose Given To Date (cGy) 4,320 ARIA Session Dosage Given (cGy) 180 ARIA Plan ID INITIAL ESOPH ARIA Fractions Treated 24 ARIA Prescribed Dose Per Fraction (cGy) 180 ARIA Prescribed Total Dose (cGy) 4,500 ARIA 02/21/2025 11:2 9 AM CDT us Not In File Miscellaneous RADIATION ONCOLOGY ORD ERABLES Final Result Performing Organization Address [facility] de Phone Number ARIA * RAD ONC ARIA SESSION SUMMARY (02/20/2025 2:36 PM CDT) Course Name [id number]_20 25 ARIA Course Plan Date 01/04/2025 11:04 AM ARIA Elapsed Days 32 ARIA Treatment Start Date 01/19/2025 ARIA Treatment Site [id number] ARIA Dose Given To Date (cGy) 4,140 ARIA Session Dosage Given (cGy) 180 ARIA Plan ID INITIAL ESOPH ARIA Fractions Treated 23 ARIA Prescribed Dose Per Fraction (cGy) 180 ARIA Prescribed Total Dose (cGy) 4,500 ARIA 02/20/2025 2:36 PM CDT us Not In File Miscellaneous RADIATION ONCOLOGY ORD ERABLES Final Result DION * RAD ONC ARIA SESSION SUMMARY (02/17/2025 11:23 AM CDT) Course Name C1_Esoph_20 25 ARIA Course Plan Date 01/04/2025 11:04 AM ARIA Elapsed Days 29 ARIA Treatment Start Date 01/19/2025 ARIA Treatment Site [id number] ARIA Dose Given To Date (cGy) 3,960 ARIA Session Dosage Given (cGy) 180 ARIA Plan ID INITIAL ESOPH ARIA Fractions Treated 22 ARIA Prescribed Dose Per Fraction (cGy) 180 ARIA Prescribed Total Dose (cGy) 4,500 ARIA 02/17/2025 11:2 3 AM CDT us Not In File Miscellaneous RADIATION ONCOLOGY ORD ERABLES Final Result Performing Organization Address City/[facility] Co de Phone Number DION * Transfuse RBC (02/16/2025 2:15 PM CDT) Blood us Janiya Sierra MD BLOOD TRANSFUSION ORDERABLES Fin al Result * RAD ONC ARIA SESSION SUMMARY (02/16/2025 11:15 AM CDT) Course Name C1_Esoph_20 25 ARIA Course Plan Date 01/04/2025 11:04 AM ARIA Elapsed Days 28 ARIA Treatment Start Date 01/19/2025 ARIA Treatment Site [id number]_[id number] ARIA Dose Given To Date (cGy) 3,780 ARIA Session Dosage Given (cGy) 180 ARIA Plan ID INITIAL ESOPH ARIA Fractions Treated 21 ARIA Prescribed Dose Per Fraction (cGy) 180 ARIA Prescribed Total Dose (cGy) 4,500 ARIA 02/16/2025 11:1 5 AM CDT us Not In File Miscellaneous RADIATION ONCOLOGY ORD ERABLES Final Result ARIA * Prepare RBC: 1 Units (02/15/2025 1:40 PM CDT) Pathologist [facility] Units requested 1 Comment:Testing performed by : [facility], [address] [place] [address], [id number] Units requested Ready [facility] Comment:Testing performed by : [address] [address] Unit Number [id number] Product code [id number] [facility] Blood Expiration Date [facility] Product Blood Type (for scanning) 6200 [facility] Product Blood Type APOS [facility] Dispense Status DISPENSED [facility] Blood 02/15/2025 1:40 PM CDT 02/15/2025 1:40 PM CDT us Bianca Hunter MD BLOOD BANK PRODUCT O RDERABLES Final Result Performing Organization Address [facility] de Phone Number [place] [phone] [facility] [employer] [place] [employer] [place] [address] * Blood smear review (02/15/2025 12:27 PM CDT) [facility] RBC morphology Consistent with RBC Indicies Comment:Testing performed by : [address] [address] Platelet estimate Adequate [facility] Comment:Testing performed by : [address] [address] Blood 02/15/2025 12:2 7 PM CDT 02/15/2025 12:29 PM CDT us Nena Cano NP LAB BLOOD ORDERABLES Final Result Performing Organization Address [facility] Co de Phone Number [facility] [address] [facility] [place] [employer] [place] [address] * (ABNORMAL) eGFR (02/15/2025 12:27 PM CDT) [facility] eGFR 52(L) >=60 mL/min/1. 73 m2 Comment: Interpretive Data [...] was last reviewed 2021. Testing performed by: [address] [address] Blood 02/15/2025 12:2 7 PM CDT 02/15/2025 12:29 PM CDT us Bianca Hunter MD LAB BLOOD ORDERABLES Final Result ISAAC [address] [facility] [place] [address] * (ABNORMAL) Differential, auto (02/15/2025 12:27 PM CDT) Neutrophil abs 0.66(L) 1.50 - 6.50 K/cumm Comment:Testing performed by : [address] [address] Imm gran abs 0.13(H) 0.00 - 0.10 K/cumm ISAAC SERNA Comment:Testing performed by : [address] [address] Lymphocyte abs 0.03(L) 0.80 - 3.30 K/cumm ISAAC Comment:Testing performed by : [address] [address] Monocyte abs 0.21 0.20 - 0.80 K/cumm [facility] Comment:Testing performed by : [address] [address] Eosinophil abs 0.04 0.00 - 0.50 K/cumm [facility] Comment:Testing performed by : [address], [place]., [address] Basophil abs 0.01 0.00 - 0.10 K/cumm [facility] Comment:Testing performed by : [address] [address] Neutrophil pct 61.2 % [facility] Comment: Interpretive Data Percent cell count reference ranges are not reported, since discordance with absolute values may lead to misinterpretation of CBC data. Current Interpretive Data was last revised on 2018. Testing performed by: [address] [address] Imm gran pct 12.0 % [facility] Comment: Interpretive Data Percent cell count reference ranges are not reported, since discordance with absolute values may lead to misinterpretation of CBC data. Current Interpretive Data was last revised on 2018. Testing performed by: [address] [address] Lymphocyte pct 2.8 % [facility] Comment: Interpretive Data Percent cell count reference ranges are not reported, since discordance with absolute values may lead to misinterpretation of CBC data. Current Interpretive Data was last revised on 2018. Testing performed by: [address] [address] Monocyte pct 19.4 % [facility] Comment: Interpretive Data Percent cell count reference ranges are not reported, since discordance with absolute values may lead to misinterpretation of CBC data. Current Interpretive Data was last revised on 2018. Testing performed by: [address] [address] Eosinophil pct 3.7 % [facility] Comment: Interpretive Data Percent cell count reference ranges are not reported, since discordance with absolute values may lead to misinterpretation of CBC data. Current Interpretive Data was last revised on 2018. Testing performed by: [address] [address] Basophil pct 0.9 % ISAAC Comment: Interpretive Data Percent cell count reference ranges are not reported, since discordance with absolute values may lead to misinterpretation of CBC data. Current Interpretive Data was last revised on 2018. Testing performed by: [address] [address] Blood 02/15/2025 12:2 7 PM CDT 02/15/2025 12:29 PM CDT Nena Cano TOOL POLISHING MACHINE OPERATOR LAB BLOOD ORDERABLES Final Result ISAAC [address] [facility] [place] [address] * (ABNORMAL) Iron profile w/ IBC (02/15/2025 12:27 PM CDT) Iron 43(L) 50 - 150 mcg/dL Comment:Testing performed by : [address] [address] TIBC 208(L) 250 - 400 mcg/dL ISAAC Comment:Testing performed by : [address] [address] Transferrin saturation 21 20 - 50 % ISAAC Comment:Testing performed by : [address] [address] Blood 02/15/2025 12:2 7 PM CDT 02/15/2025 1:39 PM CDT Nena Cano TOOL POLISHING MACHINE OPERATOR LAB BLOOD ORDERABLES Final Result [place] [id number] [facility] [place] [address] * (ABNORMAL) CBC with auto differential (02/15/2025 12:27 PM CDT) WBC 1.08(L) 3.80 - 9.90 K/cumm Comment:Testing performed by : [address] [address] Hgb 8.8(L) 13.0 - 17.5 g/dL ISAAC Comment:Testing performed by : [address] [address] Hct 27.1(L) 38.9 - 50.3 % CERADAM Comment:Testing performed by : [address] [address] Plt 136(L) 150 - 400 K/cumm ISAAC Comment:Testing performed by : [address] [address] MPV 9.2 9.1 - 12.3 fL CERADAM Comment:Testing performed by : [address], [address] RBC 3.00(L) 4.30 - 5.80 M/cumm ISAAC Comment:Testing performed by : [address], [address] MCV 90.3 81.3 - 96.4 fL CERADAM Comment:Testing performed by : [address], [address] MCH 29.3 27.1 - 33.3 pg CERADAM Comment:Testing performed by : [address], [address] MCHC 32.5 32.3 - 35.7 g/dL ISAAC Comment:Testing performed by : [address] [address] RDW CV 17.4(H) 11.1 - 14.9 % ISAAC Comment:Testing performed by : [address], [address] RDW SD 54.7(H) 35.7 - 48.1 fL CERADAM Comment:Testing performed by : [address] [address] NRBC abs 0.00 0.00 - 0.01 K/cumm ISAAC Comment:Testing performed by : [address], [address] ANC Prelim 0.66(L) 1.50 - 6.50 K/cumm ISAAC Comment: Interpretive Data The rapid ANC is a preliminary automated count and may vary from the final ANC (Neut Abs) reported in the WBC differential that follows. Current interpretive data was last revised 2025. Testing performed by: [address] [address] Blood 02/15/2025 12:2 7 PM CDT 02/15/2025 12:29 PM CDT Nena Cano LAB BLOOD ORDERABLES Final Result Performing Organization Address [facility] de Phone Number [address] [address] * ABO/Rh (02/15/2025 12:27 PM CDT) ABO/Rh A Positive Comment:Testing performed by : [address] [address] Blood 02/15/2025 12:2 7 PM CDT 02/15/2025 1:39 PM CDT Narrative ISAAC - 02/15/2025 2:02 PM CDT Has the patient had Daratumumab or Isatuximab in the past 6 months?->Unknown Nena Cano LAB BLOOD BANK TEST ORDERAB LES Final Result Performing Organization Address [facility] de Phone Number [address] [address] * (ABNORMAL) Reticulocyte Count (02/15/2025 12:27 PM CDT) Retics, absolute 17(L) 20 - 87 K/cumm Comment:Testing performed by : [address] [address] Retics 0.6 0.4 - 2.9 % ISAAC Comment:Testing performed by : [address] [address] Reticulocyte Hgb 36.9 30.5 - 38.0 pg ISAAC Comment:Testing performed by : [facility], [address] [place] [address]., [address] Blood 02/15/2025 12:2 7 PM CDT 02/15/2025 12:29 PM CDT Nena Cano TOOL POLISHING MACHINE OPERATOR LAB BLOOD ORDERABLES Final Result [address] [place] [address] * Crossmatch (02/15/2025 12:27 PM CDT) Crossmatch Compatible IS[facility] Unit number for crossmatch [id number] [facility] Blood 02/15/2025 12:2 7 PM CDT 02/15/2025 1:39 PM CDT Bianca Hunter MD LAB BLOOD BANK TEST ORDERABLES Final Result Performing Organization Address [facility] Co de Phone Number [address] [place] [place] [address] * Antibody screen (02/15/2025 12:27 PM CDT) Divina, indirect, Gel Interpretation Negative ABSC Comment:Testing performed by : [facility], [address] [place] [address]., [address] Blood 02/15/2025 12:2 7 PM CDT 02/15/2025 1:39 PM CDT Narrative [facility] - 02/15/2025 2:15 PM CDT Has the patient had Daratumumab or Isatuximab in the past 6 months?->Unknown Nena Cano TOOL POLISHING MACHINE OPERATOR LAB BLOOD BANK TEST ORDERAB LES Final Result Performing Organization Address City/[facility]/ZIP Co de Phone Number [address] [place] [place] [address] * Ferritin (02/15/2025 12:27 PM CDT) Pathologist [facility] Ferritin 255 30 - 400 ng/mL Comment:Testing performed by : [address] [address] Blood 02/15/2025 12:2 7 PM CDT 02/15/2025 1:39 PM CDT Nena Cano TOOL POLISHING MACHINE OPERATOR LAB BLOOD ORDERABLES Final Result [facility] [address] [facility] [place] [address] * (ABNORMAL) Comprehensive metabolic panel (02/15/2025 12:27 PM CDT) Pathologist [facility] Sodium 137 135 - 145 mmol/L Comment:Testing performed by : [address] [address] Potassium, pl 4.2 3.3 - 4.9 mmol/L ISAAC Comment:Testing performed by : [address] [address] Chloride 106 97 - 110 mmol/L ISAAC Comment:Testing performed by : [address] [address] CO2 22 22 - 32 mmol/L ISAAC Comment:Testing performed by : [address] [address] Anion gap 9 2 - 15 mmol/L ISAAC Comment:Testing performed by : [address] [address] BUN 13 6 - 25 mg/dL ISAAC Comment:Testing performed by : [address] [address] Creatinine 1.40(H) 0.80 - 1.30 mg/dL ISAAC Comment:Testing performed by : [address] [address] Glucose 108 70 - 199 mg/dL ISAAC Comment: Interpretive [...] was last revised 2022. Testing performed by: [address] [address] Calcium 8.8 8.5 - 10.3 mg/dL ISAAC Comment:Testing performed by : [address] [address] Bilirubin, total 0.3 0.1 - 1.2 mg/dL ISAAC Comment:Testing performed by : [address] [address] Protein, pl 6.1(L) 6.5 - 8.5 g/dL ISAAC Comment:Testing performed by : [address] [address] Albumin 4.0 3.5 - 5.0 g/dL ISAAC Comment:Testing performed by : [address] [address] Alk phos 61 40 - 130 Units/L ISAAC Comment:Testing performed by : [address] [address] ALT 14 7 - 55 Units/L ISAAC Comment:Testing performed by : [address] [address] AST 20 10 - 50 Units/L ISAAC Comment:Testing performed by : [address] [address] Blood 02/15/2025 12:2 7 PM CDT 02/15/2025 12:29 PM CDT us Bianca Hunter MD LAB BLOOD ORDERABLES Final Result ISAAC [address] [facility] Department [place] [address] * RAD ONC ARIA SESSION SUMMARY (02/15/2025 11:48 AM CDT) Course Name [id number] 25 ARIA Course Plan Date 01/04/2025 11:04 AM ARIA Elapsed Days 27 ARIA Treatment Start Date 01/19/2025 ARIA Treatment Site [id number] ARIA Dose Given To Date (cGy) 3,600 ARIA Session Dosage Given (cGy) 180 ARIA Plan ID INITIAL ESOPH ARIA Fractions Treated 20 ARIA Prescribed Dose Per Fraction (cGy) 180 ARIA Prescribed Total Dose (cGy) 4,500 ARIA 02/15/2025 11:4 8 AM CDT us Not In File Miscellaneous RADIATION ONCOLOGY ORD ERABLES Final Result Performing Organization Address [facility] Co de Phone Number ARIA * RAD ONC ARIA SESSION SUMMARY (02/14/2025 11:28 AM CDT) Course Name [id number] ARIA Course Plan Date 01/04/2025 11:04 AM ARIA Elapsed Days 26 ARIA Treatment Start Date 01/19/2025 ARIA Treatment Site [id number] ARIA Dose Given To Date (cGy) 3,420 ARIA Session Dosage Given (cGy) 180 ARIA Plan ID INITIAL ESOPH ARIA Fractions Treated 19 ARIA Prescribed Dose Per Fraction (cGy) 180 ARIA Prescribed Total Dose (cGy) 4,500 ARIA 02/14/2025 11:2 8 AM CDT us Not In File Miscellaneous RADIATION ONCOLOGY ORD ERABLES Final Result ARIA * RAD ONC ARIA SESSION SUMMARY (02/13/2025 11:24 AM CDT) Course Name [id number] 25 ARIA Course Plan Date 01/04/2025 11:04 AM ARIA Elapsed Days 25 ARIA Treatment Start Date 01/19/2025 ARIA Treatment Site [id number] ARIA Dose Given To Date (cGy) 3,240 ARIA Session Dosage Given (cGy) 180 ARIA Plan ID INITIAL ESOPH ARIA Fractions Treated 18 ARIA Prescribed Dose Per Fraction (cGy) 180 ARIA Prescribed Total Dose (cGy) 4,500 ARIA 02/13/2025 11:2 4 AM CDT us Not In File Miscellaneous RADIATION ONCOLOGY ORD ERABLES Final Result DION * RAD ONC ARIA SESSION SUMMARY (02/10/2025 11:35 AM CDT) Course Name [id number] 25 ARIA Course Plan Date 01/04/2025 11:04 AM ARIA Elapsed Days 22 ARIA Treatment Start Date 01/19/2025 ARIA Treatment Site [id number] ARIA Dose Given To Date (cGy) 3,060 ARIA Session Dosage Given (cGy) 180 ARIA Plan ID INITIAL ESOPH ARIA Fractions Treated 17 ARIA Prescribed Dose Per Fraction (cGy) 180 ARIA Prescribed Total Dose (cGy) 4,500 ARIA 02/10/2025 11:3 5 AM CDT us Not In File Miscellaneous RADIATION ONCOLOGY ORD ERABLES Final Result Performing Organization Address [facility] de Phone Number DION * Blood smear review (02/09/2025 11:50 AM CDT) RBC morphology Consistent with RBC Indicies Comment:Testing performed by : [facility], [address] [place] [address]., [address] Platelet estimate Adequate ISAAC SERNA Comment:Testing performed by : [facility], [address] [place] [address]., [address] Blood 02/09/2025 11:5 0 AM CDT 02/09/2025 11:51 AM CDT us Bianca Hunter MD LAB BLOOD ORDERABLES Final Result Performing Organization Address City/[facility]/ZIP Co de Phone Number ISAAC SERNA [address] [facility] [place] [address] * (ABNORMAL) eGFR (02/09/2025 11:50 AM CDT) eGFR 52(L) >=60 mL/min/1. 73 m2 Comment: Interpretive Data [...] was last reviewed 2021. Testing performed by: [address] [address] Blood 02/09/2025 11:5 0 AM CDT 02/09/2025 11:51 AM CDT Bianca Hunter MD LAB BLOOD ORDERABLES Final Result ISAAC SERNA [address] [facility] Department [place] [address] * (ABNORMAL) Differential, auto (02/09/2025 11:50 AM CDT) Neutrophil abs 0.92(L) 1.50 - 6.50 K/cumm Comment:Testing performed by : [address] [address] Imm gran abs 0.07 0.00 - 0.10 K/cumm ISAAC SERNA Comment:Testing performed by : [address] [address] Lymphocyte abs 0.06(L) 0.80 - 3.30 K/cumm [facility] Comment:Testing performed by : [address] [address] Monocyte abs 0.38 0.20 - 0.80 K/cumm [facility] Comment:Testing performed by : [address], [place]., [address] Eosinophil abs 0.15 0.00 - 0.50 K/cumm [facility] Comment:Testing performed by : [address], [place]., [address] Basophil abs 0.04 0.00 - 0.10 K/cumm [facility] Comment:Testing performed by : [address] [address] Neutrophil pct 56.7 % [facility] Comment: Interpretive Data Percent cell count reference ranges are not reported, since discordance with absolute values may lead to misinterpretation of CBC data. Current Interpretive Data was last revised on 2018. Testing performed by: [address] [address] Imm gran pct 4.3 % [facility] Comment: Interpretive Data Percent cell count reference ranges are not reported, since discordance with absolute values may lead to misinterpretation of CBC data. Current Interpretive Data was last revised on 2018. Testing performed by: [address] [address] Lymphocyte pct 3.7 % [facility] Comment: Interpretive Data Percent cell count reference ranges are not reported, since discordance with absolute values may lead to misinterpretation of CBC data. Current Interpretive Data was last revised on 2018. Testing performed by: [address] [address] Monocyte pct 23.5 % [facility] Comment: Interpretive Data Percent cell count reference ranges are not reported, since discordance with absolute values may lead to misinterpretation of CBC data. Current Interpretive Data was last revised on 2018. Testing performed by: [address] [address] Eosinophil pct 9.3 % CERNER Comment: Interpretive Data Percent cell count reference ranges are not reported, since discordance with absolute values may lead to misinterpretation of CBC data. Current Interpretive Data was last revised on 2018. Testing performed by: [address] [address] Basophil pct 2.5 % ISAAC SERNA Comment: Interpretive Data Percent cell count reference ranges are not reported, since discordance with absolute values may lead to misinterpretation of CBC data. Current Interpretive Data was last revised on 2018. Testing performed by: [address] [address] Blood 02/09/2025 11:5 0 AM CDT 02/09/2025 11:51 AM CDT Bianca Hunter MD LAB BLOOD ORDERABLES Final Result Performing Organization Address [facility] de Phone Number DAYANA[address] [place] [address] * (ABNORMAL) Iron profile w/ IBC (02/09/2025 11:50 AM CDT) Iron 50 50 - 150 mcg/dL Comment:Testing performed by : [address] [address] TIBC 235(L) 250 - 400 mcg/dL ISAAC SERNA Comment:Testing performed by : [address] [address] Transferrin saturation 21 20 - 50 % ISAAC Comment:Testing performed by : [address] [address] Blood 02/09/2025 11:5 0 AM CDT 02/09/2025 3:58 PM CDT us Nena Cano NP LAB BLOOD ORDERABLES Final Result Performing Organization Address [facility] Co de Phone Number DAYANA[address] [place] [place] [address] * (ABNORMAL) CBC with auto differential (02/09/2025 11:50 AM CDT) [facility] WBC 1.62(L) 3.80 - 9.90 K/cumm Comment:Testing performed by : [address] [address] Hgb 9.2(L) 13.0 - 17.5 g/dL ISAAC Comment:Testing performed by : [address] [address] Hct 28.9(L) 38.9 - 50.3 % ISAAC Comment:Testing performed by : [address] [address] Plt 163 150 - 400 K/cumm ISAAC Comment:Testing performed by : [address], [address] MPV 9.1 9.1 - 12.3 fL ISAAC Comment:Testing performed by : [address], [address] RBC 3.18(L) 4.30 - 5.80 M/cumm ISAAC Comment:Testing performed by : [address], [address] MCV 90.9 81.3 - 96.4 fL ISAAC Comment:Testing performed by : [address] [address] MCH 28.9 27.1 - 33.3 pg ISAAC Comment:Testing performed by : [address], [address] MCHC 31.8(L) 32.3 - 35.7 g/dL ISAAC Comment:Testing performed by : [address] [address] RDW CV 17.1(H) 11.1 - 14.9 % ISAAC Comment:Testing performed by : [address], [address] RDW SD 54.1(H) 35.7 - 48.1 fL ISAAC Comment:Testing performed by : [address], [address] NRBC abs 0.00 0.00 - 0.01 K/cumm CERNER Comment:Testing performed by : [address] [address] ANC Prelim 0.92(L) 1.50 - 6.50 K/cumm ISAAC Comment: Interpretive Data The rapid ANC is a preliminary automated count and may vary from the final ANC (Neut Abs) reported in the WBC differential that follows. Current interpretive data was last revised 2025. Testing performed by: [address] [address] Blood 02/09/2025 11:5 0 AM CDT 02/09/2025 11:51 AM CDT Bianca Hunter MD LAB BLOOD ORDERABLES Final Result Performing Organization Address [facility] Co de Phone Number [address] [place] [address] * Ferritin (02/09/2025 11:50 AM CDT) Pathologist [facility] Ferritin 111 30 - 400 ng/mL Comment:Testing performed by : [address] [address] Blood 02/09/2025 11:5 0 AM CDT 02/09/2025 3:58 PM CDT us Nena Cano NP LAB BLOOD ORDERABLES Final Result Performing Organization Address City/[facility] Co de Phone Number [address] [place] [address] * (ABNORMAL) Comprehensive metabolic panel (02/09/2025 11:50 AM CDT) Pathologist [facility] Sodium 136 135 - 145 mmol/L Comment:Testing performed by : [address] [address] Potassium, pl 4.3 3.3 - 4.9 mmol/L SIAAC Comment:Testing performed by : [address] [address] Chloride 105 97 - 110 mmol/L ISAAC Comment:Testing performed by : [address] [address] CO2 23 22 - 32 mmol/L ISAAC Comment:Testing performed by : [address] [address] Anion gap 8 2 - 15 mmol/L ISAAC Comment:Testing performed by : [address] [address] BUN 8 6 - 25 mg/dL ISAAC Comment:Testing performed by : [address] [address] Creatinine 1.40(H) 0.80 - 1.30 mg/dL ISAAC Comment:Testing performed by : [address] [address] Glucose 102 70 - 199 mg/dL ISAAC [...] was last revised 2022. Testing performed by: [address] [address] Calcium 9.0 8.5 - 10.3 mg/dL ISAAC Comment:Testing performed by : [address] [address] Bilirubin, total 0.2 0.1 - 1.2 mg/dL ISAAC Comment:Testing performed by : [address] [address] Protein, pl 6.3(L) 6.5 - 8.5 g/dL ISAAC Comment:Testing performed by : [address] [address] Albumin 4.0 3.5 - 5.0 g/dL ISAAC SERNA Comment:Testing performed by : [facility], [address] [place] [address], [address] Alk phos 63 40 - 130 Units/L ISAAC SERNA Comment:Testing performed by : [address] [address] ALT 12 7 - 55 Units/L ISAAC SERNA Comment:Testing performed by : [address], [address] AST 17 10 - 50 Units/L ISAAC Comment:Testing performed by : [address], [address] Blood 02/09/2025 11:5 0 AM CDT 02/09/2025 11:51 AM CDT us Bianca Hunter MD LAB BLOOD ORDERABLES Final Result Performing Organization Address City/[facility]/ZIP Co de Phone Number [place] [phone] [facility] [place] [address] * RAD ONC ARIA SESSION SUMMARY (02/09/2025 11:22 AM CDT) Course Name [email or web address] 25 ARIA Course Plan Date 01/04/2025 11:04 AM ARIA Elapsed Days 21 ARIA Treatment Start Date 01/19/2025 ARIA Treatment Site [id number] ARIA Dose Given To Date (cGy) 2,880 ARIA Session Dosage Given (cGy) 180 ARIA Plan ID INITIAL ESOPH ARIA Fractions Treated 16 ARIA Prescribed Dose Per Fraction (cGy) 180 ARIA Prescribed Total Dose (cGy) 4,500 ARIA 02/09/2025 11:2 2 AM CDT us Not In File Miscellaneous RADIATION ONCOLOGY ORD ERABLES Final Result ARIA * RAD ONC ARIA SESSION SUMMARY (02/08/2025 11:24 AM CDT) Course Name [email or web address] 25 ARIA Course Plan Date 01/04/2025 11:04 AM ARIA Elapsed Days 20 ARIA Treatment Start Date 01/19/2025 ARIA Treatment Site [id number] ARIA Dose Given To Date (cGy) 2,700 ARIA Session Dosage Given (cGy) 180 ARIA Plan ID INITIAL ESOPH ARIA Fractions Treated 15 ARIA Prescribed Dose Per Fraction (cGy) 180 ARIA Prescribed Total Dose (cGy) 4,500 ARIA 02/08/2025 11:2 4 AM CDT us Not In File Miscellaneous RADIATION ONCOLOGY ORD ERABLES Final Result ARIA * RAD ONC ARIA SESSION SUMMARY (02/07/2025 11:32 AM CDT) Course Name [email or web address] 25 ARIA Course Plan Date 01/04/2025 11:04 AM ARIA Elapsed Days 19 ARIA Treatment Start Date 01/19/2025 ARIA Treatment Site [id number] ARIA Dose Given To Date (cGy) 2,520 ARIA Session Dosage Given (cGy) 180 ARIA Plan ID INITIAL ESOPH ARIA Fractions Treated 14 ARIA Prescribed Dose Per Fraction (cGy) 180 ARIA Prescribed Total Dose (cGy) 4,500 ARIA 02/07/2025 11:3 2 AM CDT us Not In File Miscellaneous RADIATION ONCOLOGY ORD ERABLES Final Result ARIA * RAD ONC ARIA SESSION SUMMARY (02/06/2025 11:38 AM CDT) Course Name [email or web address] 25 ARIA Course Plan Date 01/04/2025 11:04 AM ARIA Elapsed Days 18 ARIA Treatment Start Date 01/19/2025 ARIA Treatment Site [id number] ARIA Dose Given To Date (cGy) 2,340 ARIA Session Dosage Given (cGy) 180 ARIA Plan ID INITIAL ESOPH ARIA Fractions Treated 13 ARIA Prescribed Dose Per Fraction (cGy) 180 ARIA Prescribed Total Dose (cGy) 4,500 ARIA 02/06/2025 11:3 8 AM CDT us Not In File Miscellaneous RADIATION ONCOLOGY ORD ERABLES Final Result DION * RAD ONC ARIA SESSION SUMMARY (02/03/2025 11:34 AM CDT) Course Name [email or web address] 25 ARIA Course Plan Date 01/04/2025 11:04 AM ARIA Elapsed Days 15 ARIA Treatment Start Date 01/19/2025 ARIA Treatment Site [id number]_4500 ARIA Dose Given To Date (cGy) 2,160 ARIA Session Dosage Given (cGy) 180 ARIA Plan ID INITIAL ESOPH ARIA Fractions Treated 12 ARIA Prescribed Dose Per Fraction (cGy) 180 ARIA Prescribed Total Dose (cGy) 4,500 ARIA 02/03/2025 11:3 4 AM CDT us Not In File Miscellaneous RADIATION ONCOLOGY ORD ERABLES Final Result DION * (ABNORMAL) eGFR (02/02/2025 11:51 AM CDT) eGFR 57(L) >=60 mL/min/1. 73 m2 Comment: Interpretive Data [...] was last reviewed 2021. Testing performed by: [address] [address] Blood 02/02/2025 11:5 1 AM CDT 02/02/2025 11:52 AM CDT Bianca Hunter MD LAB BLOOD ORDERABLES Final Result [facility] [address] [facility] [place] [address] * (ABNORMAL) Differential, auto (02/02/2025 11:51 AM CDT) Neutrophil abs 1.48(L) 1.50 - 6.50 K/cumm Comment:Testing performed by : [address] [address] Imm gran abs 0.03 0.00 - 0.10 K/cumm ISAAC Comment:Testing performed by : [address] [address] Lymphocyte abs 0.13(L) 0.80 - 3.30 K/cumm ISAAC Comment:Testing performed by : [address] [address] Monocyte abs 0.28 0.20 - 0.80 K/cumm ISAAC Comment:Testing performed by : [address] [address] Eosinophil abs 0.18 0.00 - 0.50 K/cumm ISAAC Comment:Testing performed by : [address] [address] Basophil abs 0.02 0.00 - 0.10 K/cumm ISAAC Comment:Testing performed by : [address] [address] Neutrophil pct 69.9 % ISAAC Comment: Interpretive Data Percent cell count reference ranges are not reported, since discordance with absolute values may lead to misinterpretation of CBC data. Current Interpretive Data was last revised on 2018. Testing performed by: [address] [place]., [address] Imm gran pct 1.4 % [facility] Comment: Interpretive Data Percent cell count reference ranges are not reported, since discordance with absolute values may lead to misinterpretation of CBC data. Current Interpretive Data was last revised on 2018. Testing performed by: [address] [address] Lymphocyte pct 6.1 % [facility] Comment: Interpretive Data Percent cell count reference ranges are not reported, since discordance with absolute values may lead to misinterpretation of CBC data. Current Interpretive Data was last revised on 2018. Testing performed by: [address] [address] Monocyte pct 13.2 % [facility] Comment: Interpretive Data Percent cell count reference ranges are not reported, since discordance with absolute values may lead to misinterpretation of CBC data. Current Interpretive Data was last revised on 2018. Testing performed by: [address] [address] Eosinophil pct 8.5 % [facility] Comment: Interpretive Data Percent cell count reference ranges are not reported, since discordance with absolute values may lead to misinterpretation of CBC data. Current Interpretive Data was last revised on 2018. Testing performed by: [address] [address] Basophil pct 0.9 % [facility] Comment: Interpretive Data Percent cell count reference ranges are not reported, since discordance with absolute values may lead to misinterpretation of CBC data. Current Interpretive Data was last revised on 2018. Testing performed by: [address] [address] Blood 02/02/2025 11:5 1 AM CDT 02/02/2025 11:52 AM CDT us Bianca Hunter MD LAB BLOOD ORDERABLES Final Result [facility] [address] [facility] [place] [address] * (ABNORMAL) CBC with auto differential (02/02/2025 11:51 AM CDT) [facility] Signature WBC 2.12(L) 3.80 - 9.90 K/cumm Comment:Testing performed by : [address] [address] Hgb 8.9(L) 13.0 - 17.5 g/dL ISAAC Comment:Testing performed by : [address] [address] Hct 27.9(L) 38.9 - 50.3 % [facility] Comment:Testing performed by : [address], [address] Plt 180 150 - 400 K/cumm ISAAC Comment:Testing performed by : [address], [address] MPV 8.7(L) 9.1 - 12.3 fL ISAAC Comment:Testing performed by : [address], [address] RBC 3.08(L) 4.30 - 5.80 M/cumm ISAAC Comment:Testing performed by : [address], [address] MCV 90.6 81.3 - 96.4 fL CERADAM Comment:Testing performed by : [address], [address] MCH 28.9 27.1 - 33.3 pg CERADAM Comment:Testing performed by : [address], [address] MCHC 31.9(L) 32.3 - 35.7 g/dL ISAAC Comment:Testing performed by : [address], [address] RDW CV 17.3(H) 11.1 - 14.9 % IS[facility]AC Comment:Testing performed by : [address], [address] RDW SD 55.3(H) 35.7 - 48.1 fL [facility] Comment:Testing performed by : [address], [address] NRBC abs 0.00 0.00 - 0.01 K/cumm ISAAC Comment:Testing performed by : [address] [address] ANC Prelim 1.48(L) 1.50 - 6.50 K/cumm ISAAC Comment: Interpretive Data The rapid ANC is a preliminary automated count and may vary from the final ANC (Neut Abs) reported in the WBC differential that follows. Current interpretive data was last revised 2025. Testing performed by: [address] [address] Blood 02/02/2025 11:5 1 AM CDT 02/02/2025 11:52 AM CDT Bianca Hunter MD LAB BLOOD ORDERABLES Final Result [facility] Department [place] [address] * (ABNORMAL) Comprehensive metabolic panel (02/02/2025 11:51 AM CDT) Sodium 138 135 - 145 mmol/L Comment:Testing performed by : [address] [address] Potassium, pl 4.4 3.3 - 4.9 mmol/L ISAAC Comment:Testing performed by : [address] [address] Chloride 107 97 - 110 mmol/L ISAAC Comment:Testing performed by : [address] [address] CO2 22 22 - 32 mmol/L [facility] Comment:Testing performed by : [address] [address] Anion gap 9 2 - 15 mmol/L IS[facility]AC Comment:Testing performed by : [address] [address] BUN 11 6 - 25 mg/dL [facility] Comment:Testing performed by : [address] [address] Creatinine 1.30 0.80 - 1.30 mg/dL [facility] Comment:Testing performed by : [address] [address] Glucose 95 70 - 199 mg/dL [facility] Comment: Interpretive [...] was last revised 2022. Testing performed by: [address] [address] Calcium 8.9 8.5 - 10.3 mg/dL [facility] Comment:Testing performed by : [address] [address] Bilirubin, total 0.3 0.1 - 1.2 mg/dL [facility] Comment:Testing performed by : [address] [address] Protein, pl 6.3(L) 6.5 - 8.5 g/dL [facility] Comment:Testing performed by : [address] [address] Albumin 3.9 3.5 - 5.0 g/dL [facility] Comment:Testing performed by : [address] [address] Alk phos 58 40 - 130 Units/L [facility] Comment:Testing performed by : [address] [address] ALT 10 7 - 55 Units/L [facility] Comment:Testing performed by : [address] [address] AST 14 10 - 50 Units/L IS[facility]AC Comment:Testing performed by : [address] [address] Blood 02/02/2025 11:5 1 AM CDT 02/02/2025 11:52 AM CDT us Bianca Hunter MD LAB BLOOD ORDERABLES Final Result [facility] [address] [facility] Department [place] [address] * RAD ONC ARIA SESSION SUMMARY (02/02/2025 11:33 AM CDT) Course Name [id number] 25 ARIA Course Plan Date 01/04/2025 11:04 AM ARIA Elapsed Days 14 ARIA Treatment Start Date 01/19/2025 ARIA Treatment Site [id number] ARIA Dose Given To Date (cGy) 1,980 ARIA Session Dosage Given (cGy) 180 ARIA Plan ID INITIAL ESOPH ARIA Fractions Treated 11 ARIA Prescribed Dose Per Fraction (cGy) 180 ARIA Prescribed Total Dose (cGy) 4,500 ARIA 02/02/2025 11:3 3 AM CDT us Not In File Miscellaneous RADIATION ONCOLOGY ORD ERABLES Final Result ARIA * Transfuse RBC (02/01/2025 1:59 PM CDT) Blood us Janiya Sierra MD BLOOD TRANSFUSION ORDERABLES Fin al Result * RAD ONC ARIA SESSION SUMMARY (02/01/2025 11:45 AM CDT) Course Name [id number] 25 ARIA Course Plan Date 01/04/2025 11:04 AM ARIA Elapsed Days 13 ARIA Treatment Start Date 01/19/2025 ARIA Treatment Site [id number] ARIA Dose Given To Date (cGy) 1,800 ARIA Session Dosage Given (cGy) 180 ARIA Plan ID INITIAL ESOPH ARIA Fractions Treated 10 ARIA Prescribed Dose Per Fraction (cGy) 180 ARIA Prescribed Total Dose (cGy) 4,500 ARIA 02/01/2025 11:4 5 AM CDT Not In File Miscellaneous RADIATION ONCOLOGY ORD ERABLES Final Result Performing Organization Address City/[facility]/ZIP Co de Phone Number BRENDAA * Prepare RBC: 1 Units (02/01/2025 10:48 AM CDT) Units requested 1 Comment:Testing performed by : [address] [address] Units requested Ready [facility]AC SERNA Comment:Testing performed by : [address] [address] Unit Number [id number] Product code [id number] IS[facility] Blood Expiration Date [id number] [facility] Product Blood Type (for scanning) [facility] [facility] Product Blood Type APOS IS[facility]AC Dispense Status DISPENSED [facility] Blood 02/01/2025 10:4 8 AM CDT 02/01/2025 10:48 AM CDT Bianca Hunter MD BLOOD BANK PRODUCT O RDERABLES Final Result Performing Organization Address City/[facility]/ZIP Co de Phone Number ISAAC [address] [facility] Department [place] [address] * (ABNORMAL) Iron profile w/ IBC (02/01/2025 9:10 AM CDT) Iron 47(L) 50 - 150 mcg/dL Comment:Testing performed by : [address] [address] TIBC 220(L) 250 - 400 mcg/dL [facility]AC SERNA Comment:Testing performed by : [address] [address] Transferrin saturation 21 20 - 50 % [facility] SERNA Comment:Testing performed by : [address] [address] Blood 02/01/2025 9:10 AM CDT 02/01/2025 9:46 AM CDT us Nena Cano TOOL POLISHING MACHINE OPERATOR LAB BLOOD ORDERABLES Final Result [facility] [place] [place] [address] * Reticulocyte Count (02/01/2025 9:10 AM CDT) [facility] Retics, absolute 26 20 - 87 K/cumm Comment:Testing performed by : [address] [address] Retics 1.0 0.4 - 2.9 % ISAAC Comment:Testing performed by : [address] [address] Reticulocyte Hgb 36.1 30.5 - 38.0 pg ISAAC Comment:Testing performed by : [address] [address] Blood 02/01/2025 9:10 AM CDT 02/01/2025 9:11 AM CDT Nena Cano TOOL POLISHING MACHINE OPERATOR LAB BLOOD ORDERABLES Final Result Performing Organization Address [facility] Co de Phone Number [address] [place] [address] * Ferritin (02/01/2025 9:10 AM CDT) [facility] Ferritin 63 30 - 400 ng/mL Comment:Testing performed by : [address] [address] Blood 02/01/2025 9:10 AM CDT 02/01/2025 9:46 AM CDT Nena Cano TOOL POLISHING MACHINE OPERATOR LAB BLOOD ORDERABLES Final Result [address] [place] [address] * (ABNORMAL) Differential, auto (02/01/2025 9:02 AM CDT) Neutrophil abs 1.93 1.50 - 6.50 K/cumm Comment:Testing performed by : [address], [place]., [address] Imm gran abs 0.02 0.00 - 0.10 K/cumm [facility] Comment:Testing performed by : [address], [place]., [address] Lymphocyte abs 0.11(L) 0.80 - 3.30 K/cumm [facility] Comment:Testing performed by : [address], [place]., [address] Monocyte abs 0.20 0.20 - 0.80 K/cumm [facility] Comment:Testing performed by : [address] [address] Eosinophil abs 0.19 0.00 - 0.50 K/cumm [facility] Comment:Testing performed by : [address] [address] Basophil abs 0.01 0.00 - 0.10 K/cumm [facility] Comment:Testing performed by : [address] [address] Neutrophil pct 78.5 % [facility] Comment: Interpretive Data Percent cell count reference ranges are not reported, since discordance with absolute values may lead to misinterpretation of CBC data. Current Interpretive Data was last revised on 2018. Testing performed by: [address] [address] Imm gran pct 0.8 % [facility] Comment: Interpretive Data Percent cell count reference ranges are not reported, since discordance with absolute values may lead to misinterpretation of CBC data. Current Interpretive Data was last revised on 2018. Testing performed by: [address] [address] Lymphocyte pct 4.5 % [facility] Comment: Interpretive Data Percent cell count reference ranges are not reported, since discordance with absolute values may lead to misinterpretation of CBC data. Current Interpretive Data was last revised on 2018. Testing performed by: [address] [address] Monocyte pct 8.1 % [facility] Comment: Interpretive Data Percent cell count reference ranges are not reported, since discordance with absolute values may lead to misinterpretation of CBC data. Current Interpretive Data was last revised on 2018. Testing performed by: [address] [address] Eosinophil pct 7.7 % [facility] SRENA Comment: Interpretive Data Percent cell count reference ranges are not reported, since discordance with absolute values may lead to misinterpretation of CBC data. Current Interpretive Data was last revised on 2018. Testing performed by: [address] [address] Basophil pct 0.4 % [facility] Comment: Interpretive Data Percent cell count reference ranges are not reported, since discordance with absolute values may lead to misinterpretation of CBC data. Current Interpretive Data was last revised on 2018. Testing performed by: [address] [address] Blood 02/01/2025 9:02 AM CDT 02/01/2025 9:08 AM CDT us Nena Cano TOOL POLISHING MACHINE OPERATOR LAB BLOOD ORDERABLES Final Result [facility] [address] [facility] Department [place] [address] * (ABNORMAL) CBC with auto differential (02/01/2025 9:02 AM CDT) WBC 2.46(L) 3.80 - 9.90 K/cumm Comment:Testing performed by : [address] [address] Hgb 7.9(L) 13.0 - 17.5 g/dL [facility] SERNA Comment:Testing performed by : [address] [address] Hct 25.5(L) 38.9 - 50.3 % [facility] SERNA Comment:Testing performed by : [address] [address] Plt 194 150 - 400 K/cumm [facility] SERNA Comment:Testing performed by : [address] [address] MPV 9.0(L) 9.1 - 12.3 fL [facility] Comment:Testing performed by : [address] [address] RBC 2.73(L) 4.30 - 5.80 M/cumm ISAAC Comment:Testing performed by : [address] [address] MCV 93.4 81.3 - 96.4 fL [facility] Comment:Testing performed by : [address] [address] MCH 28.9 27.1 - 33.3 pg [facility] Comment:Testing performed by : [address] [address] MCHC 31.0(L) 32.3 - 35.7 g/dL [facility] Comment:Testing performed by : [address], [address] RDW CV 16.2(H) 11.1 - 14.9 % [facility] Comment:Testing performed by : [address], [address] RDW SD 54.3(H) 35.7 - 48.1 fL [facility] Comment:Testing performed by : [address] [address] NRBC abs 0.00 0.00 - 0.01 K/cumm [facility] Comment:Testing performed by : [address], [address] ANC Prelim 1.93 1.50 - 6.50 K/cumm [facility] Comment: Interpretive Data The rapid ANC is a preliminary automated count and may vary from the final ANC (Neut Abs) reported in the WBC differential that follows. Current interpretive data was last revised 2025. Testing performed by: [address] [address] Blood 02/01/2025 9:02 AM CDT 02/01/2025 9:08 AM CDT Nena Cano TOOL POLISHING MACHINE OPERATOR LAB BLOOD ORDERABLES Final Result Performing Organization Address [facility] Co de Phone Number ISAAC [address] [address] * ABO/Rh (02/01/2025 9:02 AM CDT) Pathologist [facility] ABO/Rh A Positive Comment:Testing performed by : [address] [address] Blood 02/01/2025 9:02 AM CDT 02/01/2025 9:45 AM CDT Narrative [facility] - 02/01/2025 10:28 AM CDT Has the patient had Daratumumab or Isatuximab in the past 6 months?->Unknown Nena Cano NP LAB BLOOD BANK TEST ORDERAB LES Final Result Performing Organization Address [facility] Co de Phone Number [facility]ANA[address] [place] [address] * Crossmatch (02/01/2025 9:02 AM CDT) Pathologist [facility] Crossmatch Compatible [facility] Unit number for crossmatch [id number] [facility] Blood 02/01/2025 9:02 AM CDT 02/01/2025 9:45 AM CDT Jas Alcala MD LAB BLOOD BANK TEST ORDERABL ES Final Result Performing Organization Address [facility] Co de Phone Number [address] [place] [address] * Antibody screen (02/01/2025 9:02 AM CDT) Divina, indirect, Gel Interpretation Negative ABSC Comment:Testing performed by : [address] [address] Blood 02/01/2025 9:02 AM CDT 02/01/2025 9:45 AM CDT Narrative [facility] - 02/01/2025 10:38 AM CDT Has the patient had Daratumumab or Isatuximab in the past 6 months?->Unknown us Nena Cano TOOL POLISHING MACHINE OPERATOR LAB BLOOD BANK TEST ORDERAB LES Final Result [facility] [address] [facility] [place] [address] * RAD ONC ARIA SESSION SUMMARY (01/31/2025 11:32 AM CDT) Course Name [id number] 25 ARIA Course Plan Date 01/04/2025 11:04 AM ARIA Elapsed Days 12 ARIA Treatment Start Date 01/19/2025 ARIA Treatment Site [id number] ARIA Dose Given To Date (cGy) 1,620 ARIA Session Dosage Given (cGy) 180 ARIA Plan ID INITIAL ESOPH ARIA Fractions Treated 9 ARIA Prescribed Dose Per Fraction (cGy) 180 ARIA Prescribed Total Dose (cGy) 4,500 ARIA 01/31/2025 11:3 2 AM CDT us Not In File Miscellaneous RADIATION ONCOLOGY ORD ERABLES Final Result Performing Organization Address [facility] Co de Phone Number ARIA * RAD ONC ARIA SESSION SUMMARY (01/30/2025 11:29 AM CDT) Course Name [id number] 25 ARIA Course Plan Date 01/04/2025 11:04 AM ARIA Elapsed Days 11 ARIA Treatment Start Date 01/19/2025 ARIA Treatment Site [id number] ARIA Dose Given To Date (cGy) 1,440 ARIA Session Dosage Given (cGy) 180 ARIA Plan ID INITIAL ESOPH ARIA Fractions Treated 8 ARIA Prescribed Dose Per Fraction (cGy) 180 ARIA Prescribed Total Dose (cGy) 4,500 ARIA 01/30/2025 11:2 9 AM CDT us Not In File Miscellaneous RADIATION ONCOLOGY ORD ERABLES Final Result ARIA * XR Pelvis 1 or 2 Views (01/27/2025 12:49 PM CDT) Anatomical Region Laterality Modality Body, Pelvis N/A Computed Radiogr aphy 02/06/2025 9:17 AM CDT Narrative 02/06/2025 9:21 AM CDT EXAM DESCRIPTION: XR PELVIS 1 OR 2 VIEWS REASON FOR STUDY: pain s/p fall Posterior pelvic pain following a fall 5 days ago TECHNIQUE: 1 radiographic view(s) of the pelvis . COMPARISON: 12/13/2024 FINDINGS: BONES/JOINTS: There is no acute fracture, malalignment or osseous abnormality. Moderate right hip osteoarthritis. Mild left hip osteoarthritis. Posterior fusion of the L3-S1 with posterior decompression. SOFT TISSUES: Within normal limits. IMPRESSION: No acute osseous abnormality. THIS IS AN ELECTRONICALLY VERIFIED FINAL REPORT 02/06/2025 9:21 AM - Electronically signed by Moise Cm M.D. MM: MM Report ID: [id number] Reading Location: [id number] Procedure Note Moise Cm MD - 02/06/2025 EXAM DESCRIPTION: XR PELVIS 1 OR 2 VIEWS REASON FOR STUDY: pain s/p fall Posterior pelvic pain following a fall 5 days ago TECHNIQUE: 1 radiographic view(s) of the pelvis . COMPARISON: 12/13/2024 FINDINGS: BONES/JOINTS: There is no acute fracture, malalignment orosseous abnormality. Moderate right hip osteoarthritis. Mild left hiposteoarthritis. Posterior fusion of the L3-S1 with posterior decompression. SOFT TISSUES: Within normal limits. IMPRESSION: No acute osseous abnormality. THIS IS AN ELECTRONICALLY VERIFIED FINAL REPORT 02/06/2025 9:21 AM - Electronically signed by Moise Cm M.D. MM: MM Report ID: [id number] Reading Location: [id number] us Bianca Hunter MD IMG XR PROCEDURES Fi nal Result * RAD ONC ARIA SESSION SUMMARY (01/27/2025 11:39 AM CDT) Course Name [id number] 25 ARIA Course Plan Date 01/04/2025 11:04 AM ARIA Elapsed Days 8 ARIA Treatment Start Date 01/19/2025 ARIA Treatment Site [id number] ARIA Dose Given To Date (cGy) 1,260 ARIA Session Dosage Given (cGy) 180 ARIA Plan ID INITIAL ESOPH ARIA Fractions Treated 7 ARIA Prescribed Dose Per Fraction (cGy) 180 ARIA Prescribed Total Dose (cGy) 4,500 ARIA 01/27/2025 11:3 9 AM CDT us Not In File Miscellaneous RADIATION ONCOLOGY ORD ERABLES Final Result ARIA * (ABNORMAL) eGFR (01/26/2025 12:21 PM CDT) eGFR 48(L) >=60 mL/min/1. 73 m2 Comment: Interpretive Data [...] was last reviewed 2021. Testing performed by: [facility], [address] [place] [address], [place]., [address] Blood 01/26/2025 12:2 1 PM CDT 01/26/2025 12:31 PM CDT Bianca Hunter MD LAB BLOOD ORDERABLES Final Result [facility] [address] [facility] [place] [address] * (ABNORMAL) Differential, auto (01/26/2025 12:21 PM CDT) Neutrophil abs 2.3 1.5 - 6.5 K/cumm Comment:Testing performed by : [address] [address] Imm gran abs 0.1 0.0 - 0.1 K/cumm [facility] Comment:Testing performed by : [address] [address] Lymphocyte abs 0.2(L) 0.8 - 3.3 K/cumm [facility] Comment:Testing performed by : [address] [address] Monocyte abs 0.3 0.2 - 0.8 K/cumm [facility] Comment:Testing performed by : [address] [address] Eosinophil abs 0.3 0.0 - 0.5 K/cumm [facility] Comment:Testing performed by : [address] [address] Basophil abs 0.0 0.0 - 0.1 K/cumm [facility] Comment:Testing performed by : [address] [address] Neutrophil pct 73.3 % [facility] Comment: Interpretive Data Percent cell count reference ranges are not reported, since discordance with absolute values may lead to misinterpretation of CBC data. Current Interpretive Data was last revised on 2018. Testing performed by: [address] [address] Imm gran pct 2.9 % [facility] Comment: Interpretive Data Percent cell count reference ranges are not reported, since discordance with absolute values may lead to misinterpretation of CBC data. Current Interpretive Data was last revised on 2018. Testing performed by: [address] [address] Lymphocyte pct 5.8 % [facility] Comment: Interpretive Data Percent cell count reference ranges are not reported, since discordance with absolute values may lead to misinterpretation of CBC data. Current Interpretive Data was last revised on 2018. Testing performed by: [address] [address] Monocyte pct 8.0 % [facility] Comment: Interpretive Data Percent cell count reference ranges are not reported, since discordance with absolute values may lead to misinterpretation of CBC data. Current Interpretive Data was last revised on 2018. Testing performed by: [address] [address] Eosinophil pct 9.0 % [facility] Comment: Interpretive Data Percent cell count reference ranges are not reported, since discordance with absolute values may lead to misinterpretation of CBC data. Current Interpretive Data was last revised on 2018. Testing performed by: [address] [address] Basophil pct 1.0 % [facility] Comment: Interpretive Data Percent cell count reference ranges are not reported, since discordance with absolute values may lead to misinterpretation of CBC data. Current Interpretive Data was last revised on 2018. Testing performed by: [address] [address] Blood 01/26/2025 12:2 1 PM CDT 01/26/2025 12:31 PM CDT us Bianca Hunter MD LAB BLOOD ORDERABLES Final Result [facility] SERNA [address] [facility] [place] [address] * (ABNORMAL) CBC with auto differential (01/26/2025 12:21 PM CDT) WBC 3.1(L) 3.8 - 9.9 K/cumm Comment:Testing performed by : [address] [address] Hgb 8.1(L) 13.0 - 17.5 g/dL [facility] Comment:Testing performed by : [address] [address] Hct 26.6(L) 38.9 - 50.3 % [facility] Comment:Testing performed by : [address] [address] Plt 234 150 - 400 K/cumm [facility] Comment:Testing performed by : [address] [address] MPV 8.6(L) 9.1 - 12.3 fL [facility] Comment:Testing performed by : [address] [address] RBC 2.80(L) 4.30 - 5.80 M/cumm [facility] Comment:Testing performed by : [address] [address] MCV 95.0 81.3 - 96.4 fL [facility] Comment:Testing performed by : [address] [address] MCH 28.9 27.1 - 33.3 pg [facility]ER[facility]AM Comment:Testing performed by : [address] [address] MCHC 30.5(L) 32.3 - 35.7 g/dL [facility] Comment:Testing performed by : [address] [address] RDW CV 16.4(H) 11.1 - 14.9 % [facility] Comment:Testing performed by : [address], [address] RDW SD 57.5(H) 35.7 - 48.1 fL [facility] Comment:Testing performed by : [address] [address] NRBC abs 0.00 0.00 - 0.01 K/cumm [facility] Comment:Testing performed by : [address] [address] Blood 01/26/2025 12:2 1 PM CDT 01/26/2025 12:31 PM CDT Bianca Hunter MD LAB BLOOD ORDERABLES Final Result [facility] [address] [facility] [place] [address] * (ABNORMAL) Comprehensive metabolic panel (01/26/2025 12:21 PM CDT) Sodium 139 135 - 145 mmol/L Comment:Testing performed by : [address] [address] Potassium, pl 4.6 3.3 - 4.9 mmol/L [facility] Comment:Testing performed by : [address] [address] Chloride 109 97 - 110 mmol/L IS[facility]AC Comment:Testing performed by : [address] [address] CO2 22 22 - 32 mmol/L [facility] Comment:Testing performed by : [address] [address] Anion gap 8 2 - 15 mmol/L [facility] Comment:Testing performed by : [address] [address] BUN 16 6 - 25 mg/dL [facility] Comment:Testing performed by : [address] [address] Creatinine 1.50(H) 0.80 - 1.30 mg/dL [facility] Comment:Testing performed by : [address] [address] Glucose 100 70 - 199 mg/dL [facility]AC Comment: Interpretive [...] was last revised 2022. Testing performed by: [facility], [address] [place] [address]., [address] Calcium 8.4(L) 8.5 - 10.3 mg/dL [facility] Comment:Testing performed by : [address] [address] Bilirubin, total 0.2 0.1 - 1.2 mg/dL [facility] Comment:Testing performed by : [address] [address] Protein, pl 6.0(L) 6.5 - 8.5 g/dL [facility] Comment:Testing performed by : [address], [place]., [address] Albumin 3.7 3.5 - 5.0 g/dL [facility] Comment:Testing performed by : [address] [address] Alk phos 57 40 - 130 Units/L [facility] Comment:Testing performed by : [address] [address] ALT 9 7 - 55 Units/L [facility]AC Comment:Testing performed by : [address] [address] AST 13 10 - 50 Units/L [facility]AC Comment:Testing performed by : [address] [address] Blood 01/26/2025 12:2 1 PM CDT 01/26/2025 12:31 PM CDT us Bianca Hunter MD LAB BLOOD ORDERABLES Final Result [facility] [address] [facility] Department of Laboratories [place], [place] [id number] * RAD ONC ARIA SESSION SUMMARY (01/26/2025 11:40 AM CDT) Course Name [id number] ARIA Course Plan Date 01/04/2025 11:04 AM ARIA Elapsed Days 7 ARIA Treatment Start Date 01/19/2025 ARIA Treatment Site [id number] ARIA Dose Given To Date (cGy) 1,080 ARIA Session Dosage Given (cGy) 180 ARIA Plan ID INITIAL ESOPH ARIA Fractions Treated 6 ARIA Prescribed Dose Per Fraction (cGy) 180 ARIA Prescribed Total Dose (cGy) 4,500 ARIA 01/26/2025 11:4 0 AM CDT us Not In File Miscellaneous RADIATION ONCOLOGY ORD ERABLES Final Result ARIA * RAD ONC ARIA SESSION SUMMARY (01/25/2025 11:38 AM CDT) Course Name C1_Esoph_ ARIA Course Plan Date 01/04/2025 11:04 AM ARIA Elapsed Days 6 ARIA Treatment Start Date 01/19/2025 ARIA Treatment Site [id number] ARIA Dose Given To Date (cGy) 900 ARIA Session Dosage Given (cGy) 180 ARIA Plan ID INITIAL ESOPH ARIA Fractions Treated 5 ARIA Prescribed Dose Per Fraction (cGy) 180 ARIA Prescribed Total Dose (cGy) 4,500 ARIA 01/25/2025 11:3 8 AM CDT us Not In File Miscellaneous RADIATION ONCOLOGY ORD ERABLES Final Result ARIA * RAD ONC ARIA SESSION SUMMARY (01/24/2025 11:37 AM CDT) Course Name [id number] ARIA Course Plan Date 01/04/2025 11:04 AM ARIA Elapsed Days 5 ARIA Treatment Start Date 01/19/2025 ARIA Treatment Site [id number] ARIA Dose Given To Date (cGy) 720 ARIA Session Dosage Given (cGy) 180 ARIA Plan ID INITIAL ESOPH ARIA Fractions Treated 4 ARIA Prescribed Dose Per Fraction (cGy) 180 ARIA Prescribed Total Dose (cGy) 4,500 ARIA 01/24/2025 11:3 7 AM CDT us Not In File Miscellaneous RADIATION ONCOLOGY ORD ERABLES Final Result BRENDAA * RAD ONC ARIA SESSION SUMMARY (01/23/2025 11:40 AM CDT) Course Name [id number] 25 ARIA Course Plan Date 01/04/2025 11:04 AM ARIA Elapsed Days 4 ARIA Treatment Start Date 01/19/2025 ARIA Treatment Site [id number] ARIA Dose Given To Date (cGy) 540 ARIA Session Dosage Given (cGy) 180 ARIA Plan ID INITIAL ESOPH ARIA Fractions Treated 3 ARIA Prescribed Dose Per Fraction (cGy) 180 ARIA Prescribed Total Dose (cGy) 4,500 ARIA 01/23/2025 11:4 0 AM CDT us Not In File Miscellaneous RADIATION ONCOLOGY ORD ERABLES Final Result Performing Organization Address [facility] Co de Phone Number ARIA * RAD ONC ARIA SESSION SUMMARY (01/20/2025 11:48 AM CDT) Course Name [id number] 25 ARIA Course Plan Date 01/04/2025 11:04 AM ARIA Elapsed Days 1 ARIA Treatment Start Date 01/19/2025 ARIA Treatment Site [id number]_[id number] ARIA Dose Given To Date (cGy) 360 ARIA Session Dosage Given (cGy) 180 ARIA Plan ID INITIAL ESOPH ARIA Fractions Treated 2 ARIA Prescribed Dose Per Fraction (cGy) 180 ARIA Prescribed Total Dose (cGy) 4,500 ARIA 01/20/2025 11:4 8 AM CDT us Not In File Miscellaneous RADIATION ONCOLOGY ORD ERABLES Final Result DION * (ABNORMAL) eGFR (01/19/2025 8:52 AM CDT) eGFR 39(L) >=60 mL/min/1. 73 m2 Comment: Interpretive Data [...] was last reviewed 2021. Testing performed by: [address] [address] Blood 01/19/2025 8:52 AM CDT 01/19/2025 8:59 AM CDT Bianca Hunter MD LAB BLOOD ORDERABLES Final Result [facility] [address] [facility] Department [place] [address] * (ABNORMAL) Differential, auto (01/19/2025 8:52 AM CDT) Pathologist [facility] Neutrophil abs 2.9 1.5 - 6.5 K/cumm Comment:Testing performed by : [address] [address] Imm gran abs 0.0 0.0 - 0.1 K/cumm ISAAC Comment:Testing performed by : [address] [address] Lymphocyte abs 0.6(L) 0.8 - 3.3 K/cumm [facility] Comment:Testing performed by : [address] [address] Monocyte abs 0.6 0.2 - 0.8 K/cumm [facility] Comment:Testing performed by : [address] [address] Eosinophil abs 0.6(H) 0.0 - 0.5 K/cumm [facility] Comment:Testing performed by : [address], [place]., [address] Basophil abs 0.1 0.0 - 0.1 K/cumm [facility] Comment:Testing performed by : [address] [address] Neutrophil pct 60.4 % [facility] Comment: Interpretive Data Percent cell count reference ranges are not reported, since discordance with absolute values may lead to misinterpretation of CBC data. Current Interpretive Data was last revised on 2018. Testing performed by: [address] [address] Imm gran pct 0.4 % [facility] Comment: Interpretive Data Percent cell count reference ranges are not reported, since discordance with absolute values may lead to misinterpretation of CBC data. Current Interpretive Data was last revised on 2018. Testing performed by: [address] [address] Lymphocyte pct 13.1 % [facility] Comment: Interpretive Data Percent cell count reference ranges are not reported, since discordance with absolute values may lead to misinterpretation of CBC data. Current Interpretive Data was last revised on 2018. Testing performed by: [address] [address] Monocyte pct 13.3 % [facility] Comment: Interpretive Data Percent cell count reference ranges are not reported, since discordance with absolute values may lead to misinterpretation of CBC data. Current Interpretive Data was last revised on 2018. Testing performed by: [address] [address] Eosinophil pct 11.8 % [facility] Comment: Interpretive Data Percent cell count reference ranges are not reported, since discordance with absolute values may lead to misinterpretation of CBC data. Current Interpretive Data was last revised on 2018. Testing performed by: [address] [address] Basophil pct 1.0 % [facility] Comment: Interpretive Data Percent cell count reference ranges are not reported, since discordance with absolute values may lead to misinterpretation of CBC data. Current Interpretive Data was last revised on 2018. Testing performed by: [address] [address] Blood 01/19/2025 8:52 AM CDT 01/19/2025 8:59 AM CDT us Bianca Hunter MD LAB BLOOD ORDERABLES Final Result [facility] Department [place] [address] * (ABNORMAL) CBC with auto differential (01/19/2025 8:52 AM CDT) WBC 4.8 3.8 - 9.9 K/cumm Comment:Testing performed by : [address] [address] Hgb 8.7(L) 13.0 - 17.5 g/dL [facility] SERNA Comment:Testing performed by : [address] [address] Hct 28.8(L) 38.9 - 50.3 % [facility] SERNA Comment:Testing performed by : [address] [address] Plt 259 150 - 400 K/cumm [facility] SERNA Comment:Testing performed by : [address] [address] MPV 8.5(L) 9.1 - 12.3 fL [facility] SERNA Comment:Testing performed by : [address] [address] RBC 3.05(L) 4.30 - 5.80 M/cumm [facility] SERNA Comment:Testing performed by : [address] [address] MCV 94.4 81.3 - 96.4 fL [facility] SERNA Comment:Testing performed by : [address] [address] MCH 28.5 27.1 - 33.3 pg [facility] SERNA Comment:Testing performed by : [address] [address] MCHC 30.2(L) 32.3 - 35.7 g/dL [facility] SERNA Comment:Testing performed by : [address] [address] RDW CV 18.5(H) 11.1 - 14.9 % [facility] Comment:Testing performed by : [address] [address] RDW SD 64.4(H) 35.7 - 48.1 fL [facility] SERNA Comment:Testing performed by : [address] [address] NRBC abs 0.00 0.00 - 0.01 K/cumm [facility] SERNA Comment:Testing performed by : [address] [address] Blood 01/19/2025 8:52 AM CDT 01/19/2025 8:59 AM CDT Bianca Hunter MD LAB BLOOD ORDERABLES Final Result [facility] [address] [facility] Department [place] [address] * (ABNORMAL) Comprehensive metabolic panel (01/19/2025 8:52 AM CDT) Sodium 140 135 - 145 mmol/L Comment:Testing performed by : [address] [address] Potassium, pl 4.0 3.3 - 4.9 mmol/L [facility] SERNA Comment:Testing performed by : [address] [address] Chloride 108 97 - 110 mmol/L [facility] SERNA Comment:Testing performed by : [address] [address] CO2 24 22 - 32 mmol/L [facility] Comment:Testing performed by : [address] [address] Anion gap 8 2 - 15 mmol/L [facility] Comment:Testing performed by : [address] [address] BUN 16 6 - 25 mg/dL [facility] Comment:Testing performed by : [address] [address] Creatinine 1.80(H) 0.80 - 1.30 mg/dL [facility] Comment:Testing performed by : [address] [address] Glucose 98 70 - 199 mg/dL ISAAC [...] was last revised 2022. Testing performed by: [address] [address] Calcium 8.7 8.5 - 10.3 mg/dL [facility] Comment:Testing performed by : [address] [address] Bilirubin, total 0.2 0.1 - 1.2 mg/dL [facility] Comment:Testing performed by : [address] [address] Protein, pl 6.2(L) 6.5 - 8.5 g/dL [facility] Comment:Testing performed by : [address] [address] Albumin 3.8 3.5 - 5.0 g/dL [facility] Comment:Testing performed by : [address] [address] Alk phos 65 40 - 130 Units/L [facility] Comment:Testing performed by : [address] [address] ALT 9 7 - 55 Units/L [facility] Comment:Testing performed by : [address] [address] AST 13 10 - 50 Units/L [facility] Comment:Testing performed by : [address] [address] Blood 01/19/2025 8:52 AM CDT 01/19/2025 8:59 AM CDT us Bianca Hunter MD LAB BLOOD ORDERABLES Final Result [facility] [address] [facility] [place] [address] * RAD ONC ARIA SESSION SUMMARY (01/19/2025 8:34 AM CDT) Course Name C1_Esoph_ 25 ARIA Course Plan Date 01/04/2025 11:04 AM ARIA Elapsed Days 0 ARIA Treatment Start Date 01/19/2025 ARIA Treatment Site [id number]_4500 ARIA Dose Given To Date (cGy) 180 ARIA Session Dosage Given (cGy) 180 ARIA Plan ID INITIAL ESOPH ARIA Fractions Treated 1 ARIA Prescribed Dose Per Fraction (cGy) 180 ARIA Prescribed Total Dose (cGy) 4,500 ARIA 01/19/2025 8:34 AM CDT us Not In File Miscellaneous RADIATION ONCOLOGY ORD ERABLES Final Result ARIA * Transfuse RBC (01/18/2025 2:35 PM CDT) Blood us Janiya Sierra MD BLOOD TRANSFUSION ORDERABLES Fin al Result * Prepare RBC: 1 Units (01/18/2025 11:31 AM CDT) Units requested 1 Comment:Testing performed by : [facility], [address] [place] [address]., [address] Units requested Ready [facility] SERNA Comment:Testing performed by : [address] [address] Unit Number [id number] Product code [id number] [facility] Blood Expiration Date [id number] [facility] Product Blood Type (for scanning) 9500 [facility] Product Blood Type ONEG [facility] Dispense Status DISPENSED [facility] Blood 01/18/2025 11:3 1 AM CDT 01/18/2025 11:31 AM CDT Nena Cano NP BLOOD BANK PRODUCT ORDERABL ES Final Result [facility] [address] [facility] [place] [address] * (ABNORMAL) eGFR (01/18/2025 9:42 AM CDT) eGFR 36(L) >=60 mL/min/1. 73 m2 Comment: Interpretive Data [...] was last reviewed 2021. Testing performed by: [address] [address] Blood 01/18/2025 9:42 AM CDT 01/18/2025 9:44 AM CDT us Nena Oleary Lorenzocleo AGNIESZKA LAB BLOOD ORDERABLES Final Result [facility] [address] [facility] [place] [address] * (ABNORMAL) Differential, auto (01/18/2025 9:42 AM CDT) Neutrophil abs 3.3 1.5 - 6.5 K/cumm Comment:Testing performed by : [address] [address] Imm gran abs 0.0 0.0 - 0.1 K/cumm [facility] Comment:Testing performed by : [address] [address] Lymphocyte abs 0.6(L) 0.8 - 3.3 K/cumm [facility] Comment:Testing performed by : [address] [address] Monocyte abs 0.6 0.2 - 0.8 K/cumm [facility] Comment:Testing performed by : [address] [address] Eosinophil abs 0.6(H) 0.0 - 0.5 K/cumm [facility] Comment:Testing performed by : [address] [address] Basophil abs 0.1 0.0 - 0.1 K/cumm [facility] Comment:Testing performed by : [address] [address] Neutrophil pct 63.9 % [facility] Comment: Interpretive Data Percent cell count reference ranges are not reported, since discordance with absolute values may lead to misinterpretation of CBC data. Current Interpretive Data was last revised on 2018. Testing performed by: [address] [address] Imm gran pct 0.4 % [facility] Comment: Interpretive Data Percent cell count reference ranges are not reported, since discordance with absolute values may lead to misinterpretation of CBC data. Current Interpretive Data was last revised on 2018. Testing performed by: [address] [address] Lymphocyte pct 11.8 % [facility] Comment: Interpretive Data Percent cell count reference ranges are not reported, since discordance with absolute values may lead to misinterpretation of CBC data. Current Interpretive Data was last revised on 2018. Testing performed by: [address] [address] Monocyte pct 11.9 % [facility] Comment: Interpretive Data Percent cell count reference ranges are not reported, since discordance with absolute values may lead to misinterpretation of CBC data. Current Interpretive Data was last revised on 2018. Testing performed by: [address] [address] Eosinophil pct 10.8 % [facility] Comment: Interpretive Data Percent cell count reference ranges are not reported, since discordance with absolute values may lead to misinterpretation of CBC data. Current Interpretive Data was last revised on 2018. Testing performed by: [address] [address] Basophil pct 1.2 % [facility] Comment: Interpretive Data Percent cell count reference ranges are not reported, since discordance with absolute values may lead to misinterpretation of CBC data. Current Interpretive Data was last revised on 2018. Testing performed by: [address] [address] Blood 01/18/2025 9:42 AM CDT 01/18/2025 9:44 AM CDT us Nena Cano TOOL POLISHING MACHINE OPERATOR LAB BLOOD ORDERABLES Final Result [facility] [address] [facility] [place] [address] * Iron profile w/ IBC (01/18/2025 9:42 AM CDT) Pathologist [facility] Iron 50 50 - 150 mcg/dL Comment:Testing performed by : [address] [address] TIBC 251 250 - 400 mcg/dL [facility] Comment:Testing performed by : [address] [address] Transferrin saturation 20 20 - 50 % [facility] Comment:Testing performed by : [address] [address] Blood 01/18/2025 9:42 AM CDT 01/18/2025 11:48 AM CDT Nena Cano TOOL POLISHING MACHINE OPERATOR LAB BLOOD ORDERABLES Final Result [facility] [address] [facility] [place] [address] * (ABNORMAL) CBC with auto differential (01/18/2025 9:42 AM CDT) WBC 5.2 3.8 - 9.9 K/cumm Comment:Testing performed by : [address] [address] Hgb 8.4(L) 13.0 - 17.5 g/dL [facility] Comment:Testing performed by : [address] [address] Hct 28.3(L) 38.9 - 50.3 % [facility] Comment:Testing performed by : [address] [address] Plt 259 150 - 400 K/cumm [facility] Comment:Testing performed by : [address] [address] MPV 8.4(L) 9.1 - 12.3 fL [facility] Comment:Testing performed by : [address] [address] RBC 2.88(L) 4.30 - 5.80 M/cumm [facility] SERNA Comment:Testing performed by : [address] [address] MCV 98.3(H) 81.3 - 96.4 fL [facility] Comment:Testing performed by : [address] [address] MCH 29.2 27.1 - 33.3 pg [facility] Comment:Testing performed by : [address] [address] MCHC 29.7(L) 32.3 - 35.7 g/dL [facility] SERNA Comment:Testing performed by : [address] [address] RDW CV 16.6(H) 11.1 - 14.9 % [facility] Comment:Testing performed by : [address] [address] RDW SD 59.7(H) 35.7 - 48.1 fL [facility] Comment:Testing performed by : [address] [address] NRBC abs 0.00 0.00 - 0.01 K/cumm [facility] Comment:Testing performed by : [address], [address] Blood 01/18/2025 9:42 AM CDT 01/18/2025 9:44 AM CDT Nena Cano NP LAB BLOOD ORDERABLES Final Result Performing Organization Address City/[facility] Co de Phone Number [address] Department of Laboratories [place], [place] [id number] * ABO/Rh (01/18/2025 9:42 AM CDT) ABO/Rh A Positive Comment:Testing performed by : [address], [address] Blood 01/18/2025 9:42 AM CDT 01/18/2025 10:13 AM CDT Narrative [facility] - 01/18/2025 11:08 AM CDT Has the patient had Daratumumab or Isatuximab in the past 6 months?->Unknown Nena Cano NP LAB BLOOD BANK TEST ORDERAB LES Final Result Performing Organization Address [facility]/ZIP Co de Phone Number [address] [address] * (ABNORMAL) Reticulocyte Count (01/18/2025 9:42 AM CDT) Pathologist [facility] Retics, absolute 0.150(H) 0.020 - 0.087 M/cumm Comment:Testing performed by : [address] [address] Retics 5.2(H) 0.4 - 2.9 % [facility] Comment:Testing performed by : [address] [address] Reticulocyte Hgb 31.1 30.5 - 38.0 pg [facility] Comment:Testing performed by : [address] [address] Blood 01/18/2025 9:42 AM CDT 01/18/2025 9:44 AM CDT us Nena Cano NP LAB BLOOD ORDERABLES Final Result [address] [address] * Crossmatch (01/18/2025 9:42 AM CDT) [facility] Crossmatch Compatible [facility] Unit number for crossmatch [id number] [facility] Blood 01/18/2025 9:42 AM CDT 01/18/2025 10:13 AM CDT us Gosia Gagnon MD LAB BLOOD BANK TEST ORDERAB LES Final Result [address] [address] * Antibody screen (01/18/2025 9:42 AM CDT) [facility] Divina, indirect, Gel Interpretation Negative ABSC Comment:Testing performed by : [address] [address] Blood 01/18/2025 9:42 AM CDT 01/18/2025 10:13 AM CDT Narrative [facility] - 01/18/2025 11:08 AM CDT Has the patient had Daratumumab or Isatuximab in the past 6 months?->Unknown Nena Cano TOOL POLISHING MACHINE OPERATOR LAB BLOOD BANK TEST ORDERAB LES Final Result Performing Organization Address City/[facility]/ZIP Co de Phone Number [address] [place] [address] * Ferritin (01/18/2025 9:42 AM CDT) Pathologist [facility] Ferritin 70 30 - 400 ng/mL Comment:Testing performed by : [address] [address] Blood 01/18/2025 9:42 AM CDT 01/18/2025 11:48 AM CDT Nena Cano TOOL POLISHING MACHINE OPERATOR LAB BLOOD ORDERABLES Final Result Performing Organization Address City/[facility] Co de Phone Number [address] [place] [address] * (ABNORMAL) Comprehensive metabolic panel (01/18/2025 9:42 AM CDT) [facility] Sodium 141 135 - 145 mmol/L Comment:Testing performed by : [address] [address] Potassium, pl 4.1 3.3 - 4.9 mmol/L [facility] Comment:Testing performed by : [address] [address] Chloride 109 97 - 110 mmol/L [facility] Comment:Testing performed by : [address] [address] CO2 23 22 - 32 mmol/L [facility] Comment:Testing performed by : [address] [address] Anion gap 9 2 - 15 mmol/L [facility] Comment:Testing performed by : [address] [address] BUN 17 6 - 25 mg/dL [facility] Comment:Testing performed by : [address] [address] Creatinine 1.90(H) 0.80 - 1.30 mg/dL [facility] Comment:Testing performed by : [address] [address] Glucose 106 70 - 199 mg/dL [facility] Comment: Interpretive [...] was last revised 2022. Testing performed by: [address] [address] Calcium 8.9 8.5 - 10.3 mg/dL [facility] Comment:Testing performed by : [address] [address] Bilirubin, total <0.2 0.1 - 1.2 mg/dL [facility] Comment:Testing performed by : [address] [address] Protein, pl 6.4(L) 6.5 - 8.5 g/dL [facility] Comment:Testing performed by : [address] [address] Albumin 3.8 3.5 - 5.0 g/dL [facility] Comment:Testing performed by : [address] [address] Alk phos 69 40 - 130 Units/L [facility] Comment:Testing performed by : [address] [address] ALT 10 7 - 55 Units/L [facility] Comment:Testing performed by : [address], [place]., [address] AST 14 10 - 50 Units/L [facility] SERNA Comment:Testing performed by : [facility], [address] [place] [address]., [address] Blood 01/18/2025 9:42 AM CDT 01/18/2025 9:44 AM CDT us Nena Cano TOOL POLISHING MACHINE OPERATOR LAB BLOOD ORDERABLES Final Result [facility] [address] [facility] [place] [address] * IR Port Placement Chest > 5 Years (01/11/2025 12:57 PM CDT) Anatomical Region Laterality Modality Chest N/A Radio Fluoroscop y 01/11/2025 1:13 PM CDT Impressions 01/11/2025 1:13 PM CDT Successful chest wall port placement. PLAN: The catheter is ready for immediate use. Please note that a power injectable port was placed. When treatment is completed, removal can be scheduled by calling [facility] - [phone] [facility] - [phone] Electronically signed by: Linda Cardenas PA-C Narrative 01/11/2025 1:13 PM CDT EXAMINATION: PORT PLACEMENT USING ULTRASOUND GUIDANCE (STD TECHNIQUE) HISTORY: This is a 74-year-old male with esophageal cancer, presenting for port placement for chemotherapy. Of note, patient is on warfarin, last dose 5 days ago. INR today is 1.43. PROVIDER PRESENCE: Linda Cardenas PA-C, was present from the beginning to the end of the procedure. SEDATION: Conscious sedation was used for this procedure. TECHNIQUE: The risks, benefits and alternatives were discussed and informed consent was obtained. Prior to beginning the procedure, [place] Protocol was used to confirm the patient's identity and planned procedure. Fluoroscopy time has been recorded in the electronic medical record. Prior to the procedure, the central veins were evaluated by ultrasound, an image of the patent vein was recorded and placed in the patient's electronic medical record. Maximum sterile barriers including cap, mask, hand hygiene, sterile gloves, sterile gown, large sterile drape and 2% chlorhexidine for cutaneous antisepsis were used. The skin over the right internal jugular vein was sterilely prepped, draped and infiltrated with 1% buffered lidocaine. The vein was accessed with a 21 gauge needle using realtime ultrasound guidance. A guidewire and catheter were then passed centrally using fluoroscopic guidance. The intravascular length from the access site to the right atrium was then measured. After infiltrating the skin in the subclavicular region with 1% buffered lidocaine, a short transverse incision was made and the pocket for the power injectable reservoir was formed by blunt dissection. The catheter was tunneled to the IJ access site, cut to the appropriate length and inserted through a peel-away sheath. The catheter was flushed with 100U/ml heparin and the access needle removed. The deep tissues were approximated using 4-0 Monocryl and 2-0 Vicryl and the incision closed using skin glue. The incision in the lower neck was closed in a similar fashion using 4-0 Monocryl and covered with skin glue. ESTIMATED BLOOD LOSS: Minimal. CONDITION: Stable DISCHARGED TO: outpatient recovery. FINDINGS: Ultrasound image shows a patent vein in the lower neck. The final fluoroscopic image demonstrates the catheter with its tip at the cavoatrial junction. No complications are seen. Procedure Note Linda Cardenas PA - 01/11/2025 EXAMINATION: PORT PLACEMENT USING ULTRASOUND GUIDANCE (STD TECHNIQUE) HISTORY: This is a 74-year-old male with esophageal cancer, presenting for port placement for chemotherapy. Of note, patient is on warfarin, last dose 5 days ago. INR today is 1.43. PROVIDER PRESENCE: Linda Cardenas PA-C, was present from the beginning to the end of the procedure. SEDATION: Conscious sedation was used for this procedure. TECHNIQUE: The risks, benefits and alternatives were discussed and informed consent was obtained. Prior to beginning the procedure, [place] Protocol was used to confirm the patient's identity and planned procedure. Fluoroscopy time has been recorded in the electronic medical record. Prior to the procedure, the central veins were evaluated by ultrasound, an image of the patent vein was recorded and placed in the patient's electronic medical record. Maximum sterile barriers including cap, mask, hand hygiene, sterile gloves, sterile gown, large sterile drape and 2% chlorhexidine for cutaneous antisepsis were used. The skin over the right internal jugular vein was sterilely prepped, draped and infiltrated with 1% buffered lidocaine. The vein was accessed with a 21 gauge needle using realtime ultrasound guidance. A guidewire and catheter were then passed centrally using fluoroscopic guidance. The intravascular length from the access site to the right atrium was then measured. After infiltrating the skin in the subclavicular region with 1% buffered lidocaine, a short transverse incision was made and the pocket for the power injectable reservoir was formed by blunt dissection. The catheter was tunneled to the IJ access site, cut to the appropriate length and inserted through a peel-away sheath. The catheter was flushed with 100U/ml heparin and the access needle removed. The deep tissues were approximated using 4-0 Monocryl and 2-0 Vicryl and the incision closed using skin glue. The incision in the lower neck was closed in a similar fashion using 4-0 Monocryl and covered with skin glue. ESTIMATED BLOOD LOSS: Minimal. CONDITION: Stable DISCHARGED TO: outpatient recovery. FINDINGS: Ultrasound image shows a patent vein in the lower neck. The final fluoroscopic image demonstrates the catheter with its tip at the cavoatrial junction. No complications are seen. IMPRESSION: Successful chest wall port placement. PLAN: The catheter is ready for immediate use. Please note that a power injectable port was placed. When treatment is completed, removal can be scheduled by calling [facility] - [phone] [facility] - [phone] Electronically signed by: Linda Cardenas PA-C Bianac Hunter MD IMG IR PROCEDURES Fi nal Result * (ABNORMAL) Protime-INR (01/11/2025 10:52 AM CDT) PT 15.6(H) 9.7 - 13.0 sec INR 1.43(H) 0.90 - 1.20 [facility] Comment: Interpretive data Oral anticoagulant therapeutic ranges: Venous thromboembolism prophylaxis or treatment: 2.0-3.0 CARDIOLOGY Standard range: 2.0-3.0 High-intensity range: 2.5-3.5 Refer to indication-specific guidelines for appropriate target ranges for prosthetic heart valve replacement. Current interpretive data was last revised on 2019. Blood 01/11/2025 10:5 2 AM CDT 01/11/2025 11:03 AM CDT us Mirlande MCMULLEN LAB BLOOD ORDERABLES Final Result [facility] Department [place] [address] * NM MPI SPECT (Rest and/or Stress) Multiple Studies (01/06/2025 9:00 AM ORGANIC GARDENING TEACHER) Anatomical Region Laterality Modality Body N/A Nuclear Medicine Narrative 01/06/2025 4:05 PM ORGANIC GARDENING TEACHER Patient Id: Marshall Olson is a 74 y.o. male. MR#: [id number] Study date: 01/06/2025 Report of the nuclear portion of the stress test Please see separate dictation by Dr. Levy for indications and stress portion MPI report: Patient received 11 mCi of Myoview at rest. Patient received 33 mCi of Myoview at stress Quality of the study: Fair. No motion correction performed. Patient unable to be prone. Findings: Left ventricular cavity normal. SPECT stress images revealed the patchy areas of perfusion defect in a linear fashion involving the mid to distal anteroseptal and apical septal region and also inferior wall. Is also mild decrease in tracer uptake involving the basal lateral wall. SPECT rest images revealed the reversibility involving the mid to distal anteroseptal region. There is also reversibility involving the basal lateral wall. The inferior perfusion defect is worse at rest than at stress. Unable to do the prone imaging. Calculated ejection fraction is 66% and wall motion appears normal. TID ratio is 1.17 Impressions: Reversible ischemia involving the basal lateral and also mid to distal anteroseptal region. Inferior perfusion defect and can not rule out attenuation or infarct. Normal left ventricular wall motion Calculated ejection fraction is 66% Copy to Jas Alcala MD 01/06/2025 us Charlie Juarez MD IMG NM PROCEDURES Final Result * Stress Test for Myocardial Perfusion (01/06/2025 9:00 AM ORGANIC GARDENING TEACHER) Anatomical Region Laterality Modality Nuclear Medicine Narrative 01/06/2025 7:32 PM ORGANIC GARDENING TEACHER LEXISCAN NUCLEAR STRESS TEST CLINICAL INDICATION: Esophageal carcinoma, assess chemoradiation therapy readiness STUDY DESCRIPTION: After reviewing benefits, risks and alternatives, and obtaining informed consent, patient was infused with regadenoson (Lexiscan) per protocol. This was followed by technetium Tc99m tetrofosmin (Myoview) and a fluid bolus. Resting heart rate was 53 bpm. The highest heart rate was 65 bpm. Heart rate at the end of the test was 57 bpm. Initial blood pressure 135/77 mmHg. The maximum-excursion blood pressure was 97/72 mmHg. Blood pressure at the end of the test was 110/59 mmHg. Patient experienced expected Lexiscan side effects. Test was terminated after protocol was complete. Test supervised and interpreted by Pete Levy M.D. EKG FINDINGS: Resting ECG shows sinus bradycardia with first-degree AV block, minimal voltage criteria for LVH, maybe normal variant. There were no ECG changes diagnostic of ischemia post-Lexiscan infusion. There were no clinically significant Lexiscan-induced arrhythmias CONCLUSION: Sinus bradycardia as described above The ECG portion of Lexiscan Myoview is negative for induced ischemia. No clinically significant Lexiscan-induced arrhythmias were noted. The nuclear imaging portion of this test will be reported separately us Charlie Juarez MD CV STRESS PROCEDURES Final Resul t * (ABNORMAL) Pulmonary Function Test - (01/05/2025 8:10 AM ORGANIC GARDENING TEACHER) FVC PRE 3.48 3.18 - 5.54 L [facility] FEV1 PRE 2.66 2.29 - 4.12 L [facility] [id number] 76.42 60.94 - 87.48 % [facility] HIX31-74% PRE 2.40 0.95 - 4.33 L/s [facility] PEF PRE 6.09(A) 6.21 - 10.19 L/s [facility] DLCOc SB 12.03(A) 21.15 - 35.01 ml/(min*mm Hg) [facility] DLCO/VA PRE 2.24(A) 2.64 - 4.81 ml/(min*mm Hg*L) [facility] VA 5.36(A) 7.38 - 7.38 L [facility] TLC PRE 5.96(A) 6.38 - 8.68 L [facility] VC PRE 3.55 3.51 - 5.35 L [facility] IC PRE 3.16(A) 3.37 - 3.37 L [facility] FRC PL PRE 2.79(A) 2.87 - 4.84 L [facility] ERV PRE 0.38(A) 1.06 - 1.06 L [facility] RV PRE 2.41 2.12 - 3.47 L [facility] VTG 2.85 L [facility] RAW PRE 3.42(A) 3.06 - 3.06 cmH2O*s/L [facility] Anatomical Region Laterality Modality PFT 01/05/2025 7:35 AM ORGANIC GARDENING TEACHER Impressions 01/08/2025 4:43 PM CDT 1. Spirometry is normal. 2. Lung volumes demonstrate restrictive ventilatory defect. 3. There is moderate diffusion impairment. Correlation is advised. Electronically signed by Jaspreet Balderas DO Pulmonary & Critical Care Narrative 01/08/2025 4:43 PM CDT PULMONARY FUNCTION TESTS Marshall R Wesley 74 y.o. 01/08/2025 INTERPRETATION Please see technologist's comments mentioned in attached results report. SPIROMETRY: Pre bronchodilator FEV1 is 82 % predicted, FVC is 80 % predicted, FEV1/FVC is 76 Bronchodilator response: Not assessed. Inspection of the patient's flow-volume loops shows: Normal configuration of the inspiratory and expiratory limbs. LUNG VOLUMES: Lung volumes by body plethysmography: TLC is 79 % predicted, RV is 86 % predicted DLCO: Unadjusted for hemoglobin and carboxyhemoglobin DLCO is 43 % predicted us Charlie Juarez MD PFT ORDERABLES Final Result * (ABNORMAL) eGFR (01/04/2025 8:34 AM ORGANIC GARDENING TEACHER) eGFR 39(L) >=60 mL/min/1. 73 m2 Comment: Interpretive Data [...] was last reviewed 2021. Testing performed by: [address] [address] Blood 01/04/2025 8:34 AM ORGANIC GARDENING TEACHER 01/04/2025 8:37 AM ORGANIC GARDENING TEACHER us Nena Cano TOOL POLISHING MACHINE OPERATOR LAB BLOOD ORDERABLES Final Result [facility] [address] [facility] Department [place] [address] * (ABNORMAL) Differential, auto (01/04/2025 8:34 AM ORGANIC GARDENING TEACHER) Neutrophil abs 3.0 1.5 - 6.5 K/cumm Comment:Testing performed by : [address] [address] Imm gran abs 0.0 0.0 - 0.1 K/cumm [facility] Comment:Testing performed by : [address] [address] Lymphocyte abs 0.7(L) 0.8 - 3.3 K/cumm [facility] Comment:Testing performed by : [address] [address] Monocyte abs 0.5 0.2 - 0.8 K/cumm [facility] Comment:Testing performed by : [address] [place] [address] Eosinophil abs 0.5 0.0 - 0.5 K/cumm [facility] Comment:Testing performed by : [address] [address] Basophil abs 0.1 0.0 - 0.1 K/cumm [facility] Comment:Testing performed by : [address] [address] Neutrophil pct 62.4 % [facility] Comment: Interpretive Data Percent cell count reference ranges are not reported, since discordance with absolute values may lead to misinterpretation of CBC data. Current Interpretive Data was last revised on 2018. Testing performed by: [address] [address] Imm gran pct 0.2 % [facility] Comment: Interpretive Data Percent cell count reference ranges are not reported, since discordance with absolute values may lead to misinterpretation of CBC data. Current Interpretive Data was last revised on 2018. Testing performed by: [address] [address] Lymphocyte pct 15.1 % [facility] Comment: Interpretive Data Percent cell count reference ranges are not reported, since discordance with absolute values may lead to misinterpretation of CBC data. Current Interpretive Data was last revised on 2018. Testing performed by: [address] [address] Monocyte pct 11.1 % [facility] Comment: Interpretive Data Percent cell count reference ranges are not reported, since discordance with absolute values may lead to misinterpretation of CBC data. Current Interpretive Data was last revised on 2018. Testing performed by: [address] [address] Eosinophil pct 9.9 % [facility] Comment: Interpretive Data Percent cell count reference ranges are not reported, since discordance with absolute values may lead to misinterpretation of CBC data. Current Interpretive Data was last revised on 2018. Testing performed by: [address] [address] Basophil pct 1.3 % [facility] Comment: Interpretive Data Percent cell count reference ranges are not reported, since discordance with absolute values may lead to misinterpretation of CBC data. Current Interpretive Data was last revised on 2018. Testing performed by: [address] [address] Blood 01/04/2025 8:34 AM ORGANIC GARDENING TEACHER 01/04/2025 8:37 AM ORGANIC GARDENING TEACHER Nena Cano TOOL POLISHING MACHINE OPERATOR LAB BLOOD ORDERABLES Final Result Performing Organization Address [facility] de Phone Number [address] [place] [address] * Iron profile w/ IBC (01/04/2025 8:34 AM ORGANIC GARDENING TEACHER) Pathologist [facility] Iron 67 50 - 150 mcg/dL Comment:Testing performed by : [address] [address] TIBC 250 250 - 400 mcg/dL [facility] Comment:Testing performed by : [address] [address] Transferrin saturation 27 20 - 50 % [facility] Comment:Testing performed by : [address] [address] Blood 01/04/2025 8:34 AM ORGANIC GARDENING TEACHER 01/04/2025 10:17 AM ORGANIC GARDENING TEACHER Nena Cano TOOL POLISHING MACHINE OPERATOR LAB BLOOD ORDERABLES Final Result Performing Organization Address [facility] de Phone Number [address] [place] [address] * (ABNORMAL) CBC with auto differential (01/04/2025 8:34 AM ORGANIC GARDENING TEACHER) WBC 4.8 3.8 - 9.9 K/cumm Comment:Testing performed by : [address] [address] Hgb 9.1(L) 13.0 - 17.5 g/dL [facility] Comment:Testing performed by : [address] [address] Hct 30.5(L) 38.9 - 50.3 % [facility] Comment:Testing performed by : [address] [address] Plt 283 150 - 400 K/cumm [facility] Comment:Testing performed by : [address] [address] MPV 8.5(L) 9.1 - 12.3 fL [facility] Comment:Testing performed by : [address] [address] RBC 3.17(L) 4.30 - 5.80 M/cumm [facility] Comment:Testing performed by : [address], [address] MCV 96.2 81.3 - 96.4 fL [facility] Comment:Testing performed by : [address] [address] MCH 28.7 27.1 - 33.3 pg [facility] Comment:Testing performed by : [address] [address] MCHC 29.8(L) 32.3 - 35.7 g/dL [facility] Comment:Testing performed by : [address] [address] RDW CV 16.1(H) 11.1 - 14.9 % [facility] Comment:Testing performed by : [address] [address] RDW SD 57.4(H) 35.7 - 48.1 fL [facility] Comment:Testing performed by : [address] [address] NRBC abs 0.00 0.00 - 0.01 K/cumm [facility] Comment:Testing performed by : [address] [address] Blood 01/04/2025 8:34 AM ORGANIC GARDENING TEACHER 01/04/2025 8:37 AM ORGANIC GARDENING TEACHER Nena Cano TOOL POLISHING MACHINE OPERATOR LAB BLOOD ORDERABLES Final Result [facility] [address] * (ABNORMAL) Reticulocyte Count (01/04/2025 8:34 AM ORGANIC GARDENING TEACHER) [facility] Retics, absolute 0.135(H) 0.020 - 0.087 M/cumm Comment:Testing performed by : [address] [address] Retics 4.3(H) 0.4 - 2.9 % [facility] Comment:Testing performed by : [facility], [address] [place] [address]., [address] Reticulocyte Hgb 30.5 30.5 - 38.0 pg [facility] Comment:Testing performed by : [address] [address] Blood 01/04/2025 8:34 AM ORGANIC GARDENING TEACHER 01/04/2025 8:37 AM ORGANIC GARDENING TEACHER Nena Cano TOOL POLISHING MACHINE OPERATOR LAB BLOOD ORDERABLES Final Result Performing Organization Address [facility] de Phone Number [address] [address] * Ferritin (01/04/2025 8:34 AM ORGANIC GARDENING TEACHER) [facility] Ferritin 76 30 - 400 ng/mL Comment:Testing performed by : [address] [address] Blood 01/04/2025 8:34 AM ORGANIC GARDENING TEACHER 01/04/2025 10:17 AM ORGANIC GARDENING TEACHER Nena Cano TOOL POLISHING MACHINE OPERATOR LAB BLOOD ORDERABLES Final Result Performing Organization Address [facility] Co de Phone Number [address] [address] * (ABNORMAL) Comprehensive metabolic panel (01/04/2025 8:34 AM ORGANIC GARDENING TEACHER) [facility] Sodium 141 135 - 145 mmol/L Comment:Testing performed by : [address] [address] Potassium, pl 4.4 3.3 - 4.9 mmol/L [facility] Comment:Testing performed by : [address] [address] Chloride 107 97 - 110 mmol/L [facility] Comment:Testing performed by : [address], [place]., [address] CO2 26 22 - 32 mmol/L [facility] Comment:Testing performed by : [address], [place]., [address] Anion gap 8 2 - 15 mmol/L [facility] Comment:Testing performed by : [address] [address] BUN 17 6 - 25 mg/dL [facility] Comment:Testing performed by : [address], [place]., [address] Creatinine 1.80(H) 0.80 - 1.30 mg/dL [facility] Comment:Testing performed by : [address] [address] Glucose 104 70 - 199 mg/dL [facility] Comment: Interpretive Data Fasting glucose >/= 126 [...] was last revised 2022. Testing performed by: [address] [address] Calcium 9.1 8.5 - 10.3 mg/dL [facility] Comment:Testing performed by : [address] [address] Bilirubin, total 0.2 0.1 - 1.2 mg/dL [facility] Comment:Testing performed by : [address] [address] Protein, pl 6.4(L) 6.5 - 8.5 g/dL [facility] Comment:Testing performed by : [address] [address] Albumin 4.0 3.5 - 5.0 g/dL [facility] Comment:Testing performed by : [address] [address] Alk phos 66 40 - 130 Units/L [facility] Comment:Testing performed by : [address], [address] ALT 10 7 - 55 Units/L [facility] Comment:Testing performed by : [address] [address] AST 16 10 - 50 Units/L [facility] Comment:Testing performed by : [address] [address] Blood 01/04/2025 8:34 AM ORGANIC GARDENING TEACHER 01/04/2025 8:37 AM ORGANIC GARDENING TEACHER Nena Cano TOOL POLISHING MACHINE OPERATOR LAB BLOOD ORDERABLES Final Result [facility] [address] [facility] Department of Laboratories [place], [place] [id number] * (ABNORMAL) eGFR (12/27/2024 1:25 PM ORGANIC GARDENING TEACHER) eGFR 34(L) >=60 mL/min/1. 73 m2 Comment: [...] was last reviewed 2021. Testing performed by: [address] [address] Blood 12/27/2024 1:25 PM ORGANIC GARDENING TEACHER 12/27/2024 1:27 PM ORGANIC GARDENING TEACHER Nena Cano NP LAB BLOOD ORDERABLES Final Result [facility] [address] [facility] Department [place] [address] * Differential, auto (12/27/2024 1:25 PM ORGANIC GARDENING TEACHER) Neutrophil abs 3.7 1.5 - 6.5 K/cumm Comment:Testing performed by : [address] [address] Imm gran abs 0.0 0.0 - 0.1 K/cumm [facility] Comment:Testing performed by : [address] [address] Lymphocyte abs 0.8 0.8 - 3.3 K/cumm [facility] Comment:Testing performed by : [address] [address] Monocyte abs 0.6 0.2 - 0.8 K/cumm [facility] Comment:Testing performed by : [address] [address] Eosinophil abs 0.4 0.0 - 0.5 K/cumm [facility] Comment:Testing performed by : [address] [address] Basophil abs 0.1 0.0 - 0.1 K/cumm [facility] Comment:Testing performed by : [address] [address] Neutrophil pct 66.1 % [facility] Comment: Interpretive Data Percent cell count reference ranges are not reported, since discordance with absolute values may lead to misinterpretation of CBC data. Current Interpretive Data was last revised on 2018. Testing performed by: [address] [address] Imm gran pct 0.5 % [facility] Comment: Interpretive Data Percent cell count reference ranges are not reported, since discordance with absolute values may lead to misinterpretation of CBC data. Current Interpretive Data was last revised on 2018. Testing performed by: [address] [address] Lymphocyte pct 14.5 % [facility] Comment: Interpretive Data Percent cell count reference ranges are not reported, since discordance with absolute values may lead to misinterpretation of CBC data. Current Interpretive Data was last revised on 2018. Testing performed by: [address] [address] Monocyte pct 10.6 % [facility] Comment: Interpretive Data Percent cell count reference ranges are not reported, since discordance with absolute values may lead to misinterpretation of CBC data. Current Interpretive Data was last revised on 2018. Testing performed by: [address] [address] Eosinophil pct 7.4 % [facility] Comment: Interpretive Data Percent cell count reference ranges are not reported, since discordance with absolute values may lead to misinterpretation of CBC data. Current Interpretive Data was last revised on 2018. Testing performed by: [address] [address] Basophil pct 0.9 % [facility] Comment: Interpretive Data Percent cell count reference ranges are not reported, since discordance with absolute values may lead to misinterpretation of CBC data. Current Interpretive Data was last revised on 2018. Testing performed by: [address] [address] Blood 12/27/2024 1:25 PM ORGANIC GARDENING TEACHER 12/27/2024 1:27 PM ORGANIC GARDENING TEACHER us Nena Cano NP LAB BLOOD ORDERABLES Final Result [facility] [address] [facility] Department [place] [address] * (ABNORMAL) Iron profile w/ IBC (12/27/2024 1:25 PM ORGANIC GARDENING TEACHER) Pathologist [facility] Iron 72 50 - 150 mcg/dL Comment:Testing performed by : [address] [address] TIBC 245(L) 250 - 400 mcg/dL [facility] Comment:Testing performed by : [address] [address] Transferrin saturation 29 20 - 50 % [facility] Comment:Testing performed by : [address] [address] Blood 12/27/2024 1:25 PM ORGANIC GARDENING TEACHER 12/27/2024 1:51 PM ORGANIC GARDENING TEACHER Nena Cano TOOL POLISHING MACHINE OPERATOR LAB BLOOD ORDERABLES Final Result Performing Organization Address City/State/[facility] Co de Phone Number [facility] [address] [facility] Department [place] [address] * (ABNORMAL) CBC with auto differential (12/27/2024 1:25 PM ORGANIC GARDENING TEACHER) Pathologist [facility] WBC 5.7 3.8 - 9.9 K/cumm Comment:Testing performed by : [address] [address] Hgb 8.8(L) 13.0 - 17.5 g/dL [facility] Comment:Testing performed by : [address] [address] Hct 29.9(L) 38.9 - 50.3 % [facility] Comment:Testing performed by : [address] [address] Plt 292 150 - 400 K/cumm [facility] Comment:Testing performed by : [address] [address] MPV 8.5(L) 9.1 - 12.3 fL [facility] Comment:Testing performed by : [address] [address] RBC 3.03(L) 4.30 - 5.80 M/cumm [facility] Comment:Testing performed by : [address] [address] MCV 98.7(H) 81.3 - 96.4 fL [facility] Comment:Testing performed by : [address] [address] MCH 29.0 27.1 - 33.3 pg [facility] Comment:Testing performed by : [address] [address] MCHC 29.4(L) 32.3 - 35.7 g/dL [facility] Comment:Testing performed by : [address] [address] RDW CV 16.6(H) 11.1 - 14.9 % [facility] Comment:Testing performed by : [address] [address] RDW SD 59.5(H) 35.7 - 48.1 fL [facility] Comment:Testing performed by : [address] [address] NRBC abs 0.00 0.00 - 0.01 K/cumm [facility] Comment:Testing performed by : [address] [address] Blood 12/27/2024 1:25 PM ORGANIC GARDENING TEACHER 12/27/2024 1:27 PM ORGANIC GARDENING TEACHER Nena Cano TOOL POLISHING MACHINE OPERATOR LAB BLOOD ORDERABLES Final Result Performing Organization Address City/State/[facility] Co de Phone Number [facility] [address] [facility] Department of Laboratories [place], [place] [id number] * (ABNORMAL) Reticulocyte Count (12/27/2024 1:25 PM ORGANIC GARDENING TEACHER) Retics, absolute 0.149(H) 0.020 - 0.087 M/cumm Comment:Testing performed by : [address] [address] Retics 4.9(H) 0.4 - 2.9 % [facility] Comment:Testing performed by : [address] [address] Reticulocyte Hgb 28.7(L) 30.5 - 38.0 pg [facility] Comment:Testing performed by : [address] [address] Blood 12/27/2024 1:25 PM ORGANIC GARDENING TEACHER 12/27/2024 1:27 PM ORGANIC GARDENING TEACHER Nena Cano TOOL POLISHING MACHINE OPERATOR LAB BLOOD ORDERABLES Final Result Performing Organization Address [facility] Co de Phone Number [address] [address] * Ferritin (12/27/2024 1:25 PM ORGANIC GARDENING TEACHER) [facility] Ferritin 171 30 - 400 ng/mL Comment:Testing performed by : [address] [address] Blood 12/27/2024 1:25 PM ORGANIC GARDENING TEACHER 12/27/2024 1:51 PM ORGANIC GARDENING TEACHER Nena Cano TOOL POLISHING MACHINE OPERATOR LAB BLOOD ORDERABLES Final Result Performing Organization Address [facility] de Phone Number [address] [address] * (ABNORMAL) Comprehensive metabolic panel (12/27/2024 1:25 PM ORGANIC GARDENING TEACHER) [facility] Sodium 137 135 - 145 mmol/L Comment:Testing performed by : [address] [address] Potassium, pl 5.1(H) 3.3 - 4.9 mmol/L ISAAC Comment:Testing performed by : [address] [address] Chloride 104 97 - 110 mmol/L ISAAC Comment:Testing performed by : [address] [address] CO2 25 22 - 32 mmol/L ISAAC Comment:Testing performed by : [address] [address] Anion gap 8 2 - 15 mmol/L ISAAC Comment:Testing performed by : [address] [address] BUN 15 6 - 25 mg/dL ISAAC Comment:Testing performed by : [address] [address] Creatinine 2.00(H) 0.80 - 1.30 mg/dL ISAAC Comment:Testing performed by : [address] [address] Glucose 110 70 - 199 mg/dL ISAAC Comment: Interpretive [...] was last revised 2022. Testing performed by: [address] [address] Calcium 8.9 8.5 - 10.3 mg/dL ISAAC Comment:Testing performed by : [address] [address] Bilirubin, total 0.2 0.1 - 1.2 mg/dL ISAAC Comment:Testing performed by : [address] [address] Protein, pl 6.5 6.5 - 8.5 g/dL ISAAC Comment:Testing performed by : [address] [address] Albumin 3.9 3.5 - 5.0 g/dL ISAAC Comment:Testing performed by : [address] [address] Alk phos 66 40 - 130 Units/L ISAAC Comment:Testing performed by : [address] [address] ALT 14 7 - 55 Units/L ISAAC Comment:Testing performed by : [address] [place] [address] AST 21 10 - 50 Units/L ISAAC SERNA Comment:Testing performed by : [facility], [address] [place] [address]., [address] Blood 12/27/2024 1:25 PM ORGANIC GARDENING TEACHER 12/27/2024 1:27 PM ORGANIC GARDENING TEACHER us Nena Cano NP LAB BLOOD ORDERABLES Final Result ISAAC DAPHNE [address] [facility] [place] [address] * PET/CT FDG Skull to Thigh (12/16/2024 9:43 AM ORGANIC GARDENING TEACHER) Anatomical Region Laterality Modality N/A Positron Emissio n Tomography (PET) 12/16/2024 9:48 AM ORGANIC GARDENING TEACHER Narrative 12/16/2024 10:04 AM ORGANIC GARDENING TEACHER EXAM DESCRIPTION: PET/CT FDG SKULL TO THIGH REASON FOR STUDY: 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 RADIOPHARMACEUTICAL: 10.6 mCi F-18 Fluorodeoxyglucose (FDG) via a left hand IV site. TECHNIQUE: The patient's fasting blood glucose level, measured by glucometer before injection of FDG, was 100 mg/dL. After intravenous administration of FDG, noncontrast CT images were obtained for attenuation correction and for fusion with emission PET images to allow for anatomical localization of PET findings. Emission PET images were then obtained. The area imaged spanned the region from the skull base to the thighs. The uptake time was approximately 60 minutes. SUV max was normalized to body weight. COMPARISON: No FDG PET-CT. Correlation with PSMA prostate PET scan 12/31/2021. FINDINGS: For reference, a region of interest of the ascending thoracic aorta has a maximal SUV of 3.9 . For reference, a region of interest of the right hepatic lobe of the liver has a maximal SUV of 5.3. Head: Normal FDG uptake is seen in the included portion of the brain. Neck: There is a left parotid mass, on the low-dose CT this is approximately 3.2 x 2.3 cm, there is metabolic activity along the medial aspect approximately 1.5 cm, the maximal SUV is 30.9. Chest: No FDG avid pulmonary nodule or mass. There are calcified granulomas in the right upper lobe which are unchanged. There is persistent opacity either atelectasis or scarring in the lingula. No hypermetabolic supraclavicular, mediastinal, hilar, or axillary lymphadenopathy. Heart size is normal. There is no pleural or pericardial effusion. There is a small sliding hiatal hernia. There is activity of the distal esophagus which has a maximal SUV of 6.3. Abdomen and Pelvis: Liver and spleen demonstrate physiologic activity. The gallbladder is surgically absent. Pancreas and both adrenal glands are normal. There is physiologic excretion of FDG from the kidneys with expected accumulation of radiotracer in the urinary bladder. There is a cyst in the mid right kidney, 6.8 cm with marginal calcification. There is a low-density lesion medial aspect left kidney 1.9 cm, 10 Hounsfield units. Postsurgical changes from mesh hernia repair of the anterior abdominal wall. There is circumferential rectal wall thickening without pathologic FDG activity, this would have been assessed on the recent colonoscopy from 11/17/2024. No abnormal FDG uptake seen of the bowel. No hypermetabolic abdominal or pelvic lymphadenopathy. There is no hypermetabolic gastrohepatic ligament lymphadenopathy. Bones: No FDG avid acute or aggressive osseous lesion. Postsurgical changes in the lumbar spine from L4-S1. There is a spinal stimulator. Trace anterolisthesis L3 on L4. Reversal of the normal cervical lordosis is seen. Areas of linear sclerosis in the sacrum may be related to the previous insufficiency fractures which are now healed. IMPRESSION: Small sliding hiatal hernia with mild activity of the distal esophagus, given the history this likely corresponds to the biopsy-proven site of malignancy. No evidence of FDG avid or enlarged paraesophageal, gastrohepatic lymphadenopathy or distant metastatic disease. Left parotid mass with metabolic activity, this is nonspecific but commonly seen with a primary parotid neoplasm such as a Warthin's tumor. Consider correlation with ultrasound and tissue sampling as clinically indicated. Circumferential rectal wall thickening without pathologic FDG activity, may be related to a mild proctitis. No reported malignancy seen at this area on the recent colonoscopy. THIS IS AN ELECTRONICALLY VERIFIED FINAL REPORT 12/16/2024 10:04 AM - Electronically signed by Dario Hilario M.D. 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 RADIOPHARMACEUTICAL: 10.6 mCi F-18 Fluorodeoxyglucose (FDG) via a lefthand IV site. TECHNIQUE: The patient's fasting blood glucose level, measured byglucometer before injection of FDG, was 100 mg/dL. After intravenousadministration of FDG, noncontrast CT images were obtained for attenuation correction andfor fusion with emission PET images to allow for anatomical localization ofPET findings. Emission PET images were then obtained. The area imaged spannedthe region from the skull base to the thighs. The uptake time wasapproximately 60 minutes. SUV max was normalized to body weight. COMPARISON: No FDG PET-CT. Correlation with PSMA prostate PET scan 12/31/2021. FINDINGS: For reference, a region of interest of the ascending thoracicaorta has a maximal SUV of 3.9 . For reference, a region of interest of theright hepatic lobe of the liver has a maximal SUV of 5.3. Head: Normal FDG uptake is seen in the included portion of the brain. Neck: There is a left parotid mass, on the low-dose CT this isapproximately 3.2 x 2.3 cm, there is metabolic activity along the medial aspect approximately 1.5 cm, the maximal SUV is 30.9. Chest: No FDG avid pulmonary nodule or mass. There are calcifiedgranulomas in the right upper lobe which are unchanged. There is persistent opacity either atelectasis or scarring in the lingula. No hypermetabolic supraclavicular, mediastinal, hilar, or axillary lymphadenopathy. Heartsize is normal. There is no pleural or pericardial effusion. There is a small sliding hiatal hernia. There is activity of the distal esophagus whichhas a maximal SUV of 6.3. Abdomen and Pelvis: Liver and spleen demonstrate physiologic activity.The gallbladder is surgically absent. Pancreas and both adrenal glands are normal. There is physiologic excretion of FDG from the kidneys withexpected accumulation of radiotracer in the urinary bladder. There is a cyst inthe mid right kidney, 6.8 cm with marginal calcification. There is alow-density lesion medial aspect left kidney 1.9 cm, 10 Hounsfield units.Postsurgical changes from mesh hernia repair of the anterior abdominal wall. There is circumferential rectal wall thickening without pathologic FDG activity,this would have been assessed on the recent colonoscopy from 11/17/2024. No abnormal FDG uptake seen of the bowel. No hypermetabolic abdominal orpelvic lymphadenopathy. There is no hypermetabolic gastrohepatic ligament lymphadenopathy. Bones: No FDG avid acute or aggressive osseous lesion. Postsurgicalchanges in the lumbar spine from L4-S1. There is a spinal stimulator. Trace anterolisthesis L3 on L4. Reversal of the normal cervical lordosis isseen. Areas of linear sclerosis in the sacrum may be related to the previous insufficiency fractures which are now healed. IMPRESSION: Small sliding hiatal hernia with mild activity of the distal esophagus,given the history this likely corresponds to the biopsy-proven site ofmalignancy. No evidence of FDG avid or enlarged paraesophageal, gastrohepatic lymphadenopathy or distant metastatic disease. Left parotid mass with metabolic activity, this is nonspecific butcommonly seen with a primary parotid neoplasm such as a Warthin's tumor. Consider correlation with ultrasound and tissue sampling as clinically indicated. Circumferential rectal wall thickening without pathologic FDG activity,may be related to a mild proctitis. No reported malignancy seen at this areaon the recent colonoscopy. THIS IS AN ELECTRONICALLY VERIFIED FINAL REPORT 12/16/2024 10:04 AM - Electronically signed by Dario Hilario M.D. CH: RED Report ID: [id number] Reading Location: [id number] us Charlie Juarez MD IMG PET PROCEDURES Final Result * POCT glucose (12/16/2024 7:51 AM ORGANIC GARDENING TEACHER) Glucose, POC 100 70 - 199 mg/dL Comment:Testing performed by : [address] [address] Blood 12/16/2024 7:51 AM ORGANIC GARDENING TEACHER 12/16/2024 7:51 AM ORGANIC GARDENING TEACHER us Charlie Juarez MD LAB POCT ORDERABLES - DEVICE Fin al Result Performing Organization Address [facility] Co de Phone Number ISAAC [address] [place] [address] * (ABNORMAL) eGFR (12/14/2024 9:08 AM ORGANIC GARDENING TEACHER) eGFR 42(L) >=60 mL/min/1. 73 m2 Comment: [...] was last reviewed 2021. Testing performed by: [facility], [address] [place] [address]., [address] Blood 12/14/2024 9:08 AM ORGANIC GARDENING TEACHER 12/14/2024 9:09 AM ORGANIC GARDENING TEACHER us Nena Cano NP LAB BLOOD ORDERABLES Final Result Performing Organization Address City/[facility]/ZIP Co de Phone Number ISAAC [address] [place] [employer] [address] * (ABNORMAL) Differential, auto (12/14/2024 9:08 AM ORGANIC GARDENING TEACHER) Neutrophil abs 2.8 1.5 - 6.5 K/cumm Comment:Testing performed by : [address] [address] Imm gran abs 0.0 0.0 - 0.1 K/cumm ISAAC Comment:Testing performed by : [address] [address] Lymphocyte abs 0.7(L) 0.8 - 3.3 K/cumm ISAAC Comment:Testing performed by : [address] [address] Monocyte abs 0.6 0.2 - 0.8 K/cumm [facility] Comment:Testing performed by : [address] [address] Eosinophil abs 0.4 0.0 - 0.5 K/cumm ISAAC Comment:Testing performed by : [address] [address] Basophil abs 0.0 0.0 - 0.1 K/cumm [facility] Comment:Testing performed by : [address] [address] Neutrophil pct 60.8 % [facility] Comment: Interpretive Data Percent cell count reference ranges are not reported, since discordance with absolute values may lead to misinterpretation of CBC data. Current Interpretive Data was last revised on 2018. Testing performed by: [address] [address] Imm gran pct 0.6 % [facility] Comment: Interpretive Data Percent cell count reference ranges are not reported, since discordance with absolute values may lead to misinterpretation of CBC data. Current Interpretive Data was last revised on 2018. Testing performed by: [address] [address] Lymphocyte pct 15.4 % [facility] Comment: Interpretive Data Percent cell count reference ranges are not reported, since discordance with absolute values may lead to misinterpretation of CBC data. Current Interpretive Data was last revised on 2018. Testing performed by: [address] [place]., [address] Monocyte pct 13.0 % ISAAC Comment: Interpretive Data Percent cell count reference ranges are not reported, since discordance with absolute values may lead to misinterpretation of CBC data. Current Interpretive Data was last revised on 2018. Testing performed by: [address] [address] Eosinophil pct 9.3 % ISAAC Comment: Interpretive Data Percent cell count reference ranges are not reported, since discordance with absolute values may lead to misinterpretation of CBC data. Current Interpretive Data was last revised on 2018. Testing performed by: [address] [address] Basophil pct 0.9 % ISAAC Comment: Interpretive Data Percent cell count reference ranges are not reported, since discordance with absolute values may lead to misinterpretation of CBC data. Current Interpretive Data was last revised on 2018. Testing performed by: [address] [address] Blood 12/14/2024 9:08 AM ORGANIC GARDENING TEACHER 12/14/2024 9:09 AM ORGANIC GARDENING TEACHER Nena Cano TOOL POLISHING MACHINE OPERATOR LAB BLOOD ORDERABLES Final Result [facility] [address] [facility] Department [place] [address] * (ABNORMAL) Iron profile w/ IBC (12/14/2024 9:08 AM ORGANIC GARDENING TEACHER) Iron 225(H) 50 - 150 mcg/dL Comment:Testing performed by : [address] [address] TIBC <242(L) 250 - 400 mcg/dL ISAAC SERNA Comment:Testing performed by : [address] [address] Transferrin saturation >93(H) 20 - 50 % ISAAC Comment:Testing performed by : [address] [address] Blood 12/14/2024 9:08 AM ORGANIC GARDENING TEACHER 12/14/2024 9:50 AM ORGANIC GARDENING TEACHER us Nena Cano TOOL POLISHING MACHINE OPERATOR LAB BLOOD ORDERABLES Final Result ISAAC [address] [facility] Department [place] [address] * (ABNORMAL) CBC with auto differential (12/14/2024 9:08 AM ORGANIC GARDENING TEACHER) WBC 4.6 3.8 - 9.9 K/cumm Comment:Testing performed by : [address] [address] Hgb 8.7(L) 13.0 - 17.5 g/dL ISAAC Comment:Testing performed by : [address] [address] Hct 29.9(L) 38.9 - 50.3 % ISAAC Comment:Testing performed by : [address] [address] Plt 278 150 - 400 K/cumm ISAAC Comment:Testing performed by : [address] [address] MPV 8.6(L) 9.1 - 12.3 fL ISAAC Comment:Testing performed by : [address] [address] RBC 3.02(L) 4.30 - 5.80 M/cumm ISAAC Comment:Testing performed by : [address] [address] MCV 99.0(H) 81.3 - 96.4 fL ISAAC Comment:Testing performed by : [address] [address] MCH 28.8 27.1 - 33.3 pg ISAAC SERNA Comment:Testing performed by : [address] [address] MCHC 29.1(L) 32.3 - 35.7 g/dL ISAAC Comment:Testing performed by : [address] [address] RDW CV 17.8(H) 11.1 - 14.9 % ISAAC Comment:Testing performed by : [address] [address] RDW SD 62.0(H) 35.7 - 48.1 fL ISAAC Comment:Testing performed by : [address] [address] NRBC abs 0.00 0.00 - 0.01 K/cumm ISAAC Comment:Testing performed by : [address] [address] Blood 12/14/2024 9:08 AM ORGANIC GARDENING TEACHER 12/14/2024 9:09 AM ORGANIC GARDENING TEACHER Nena Cano TOOL POLISHING MACHINE OPERATOR LAB BLOOD ORDERABLES Final Result Performing Organization Address [facility] de Phone Number ISAAC [address] [place] [place] [address] * (ABNORMAL) Reticulocyte Count (12/14/2024 9:08 AM ORGANIC GARDENING TEACHER) Retics, absolute 0.206(H) 0.020 - 0.087 M/cumm Comment:Testing performed by : [address] [address] Retics 6.8(H) 0.4 - 2.9 % ISAAC Comment:Testing performed by : [address] [address] Reticulocyte Hgb 29.9(L) 30.5 - 38.0 pg ISAAC Comment:Testing performed by : [address] [address] Blood 12/14/2024 9:08 AM ORGANIC GARDENING TEACHER 12/14/2024 9:09 AM ORGANIC GARDENING TEACHER Nena Cano TOOL POLISHING MACHINE OPERATOR LAB BLOOD ORDERABLES Final Result Performing Organization Address [facility] Co de Phone Number ISAAC [address] [place] [employer] [place] [address] * Ferritin (12/14/2024 9:08 AM ORGANIC GARDENING TEACHER) Ferritin 201 30 - 400 ng/mL Comment:Testing performed by : [address] [address] Blood 12/14/2024 9:08 AM ORGANIC GARDENING TEACHER 12/14/2024 9:50 AM ORGANIC GARDENING TEACHER Nena Cano NP LAB BLOOD ORDERABLES Final Result [facility] [address] [facility] [place] [address] * (ABNORMAL) Comprehensive metabolic panel (12/14/2024 9:08 AM ORGANIC GARDENING TEACHER) Pathologist [facility] Sodium 142 135 - 145 mmol/L Comment:Testing performed by : [address] [address] Potassium, pl 4.5 3.3 - 4.9 mmol/L ISAAC Comment:Testing performed by : [address] [address] Chloride 109 97 - 110 mmol/L ISAAC Comment:Testing performed by : [address] [address] CO2 23 22 - 32 mmol/L ISAAC Comment:Testing performed by : [address] [address] Anion gap 10 2 - 15 mmol/L ISAAC Comment:Testing performed by : [address] [address] BUN 16 6 - 25 mg/dL ISAAC Comment:Testing performed by : [address] [address] Creatinine 1.70(H) 0.80 - 1.30 mg/dL ISAAC Comment:Testing performed by : [address] [address] Glucose 95 70 - 199 mg/dL ISAAC Comment: Interpretive [...] was last revised 2022. Testing performed by: [address] [address] Calcium 9.0 8.5 - 10.3 mg/dL ISAAC Comment:Testing performed by : [address] [address] Bilirubin, total 0.2 0.1 - 1.2 mg/dL ISAAC Comment:Testing performed by : [address] [address] Protein, pl 6.2(L) 6.5 - 8.5 g/dL ISAAC Comment:Testing performed by : [address] [address] Albumin 3.6 3.5 - 5.0 g/dL ISAAC Comment:Testing performed by : [address] [address] Alk phos 60 40 - 130 Units/L ISAAC Comment:Testing performed by : [address] [address] ALT 19 7 - 55 Units/L ISAAC Comment:Testing performed by : [address] [address] AST 29 10 - 50 Units/L ISAAC Comment:Testing performed by : [address] [address] Blood 12/14/2024 9:08 AM ORGANIC GARDENING TEACHER 12/14/2024 9:09 AM ORGANIC GARDENING TEACHER us Nena Cano NP LAB BLOOD ORDERABLES Final Result ISAAC [address] [facility] Department [place] [address] * Upper EUS (12/13/2024 10:03 AM ORGANIC GARDENING TEACHER) Anatomical Region Laterality Modality Other Narrative Procedure Note Nikolay Dunn MD - 12/13/2024 10:03 AM [facility] Patient Name: Marshall Olson Procedure Date: 12/13/2024 10:03 AM Date of : 1950 Admit Type: Outpatient Age: 74 Gender: Male Attending MD: Nikolay Dunn M.D. Room: [facility] ENDOSCOPY ROOM 9 Note Status: Finalized Procedure: Upper EUS Indications: For evaluation of esophageal adenocarcinoma Referring MD: Lucio Rosas M.D., Charlie Juarez M.D., Bianca Hunter M.D. Providers: Nikolay Dunn M.D. Medicines: Monitored Anesthesia Care Complications: No immediate complications. Estimated blood loss:None. Estimated Blood Loss: Estimated blood loss: none. Procedure: Pre-Anesthesia Assessment: - The risks and benefits of the procedure and the sedation options and risks were discussed with the patient. All questions were answered and informed consent was obtained. - Immediately prior to administration ofmedications, the patient was re-assessed for adequacy to receive sedatives. - The anesthesia plan was to use monitoredanesthesia care (MAC). The risks, benefits and alternatives were discussed and informed consent was obtained.The Olympusradial endosonoscope [id number] was introduced throughthe mouth, and advanced to the body of the [facility] [id number] endoscope was introduced through the mouth, and advanced to the second part of duodenumThe upper EUS was accomplished without difficulty. The patient tolerated the procedure well. Findings: ENDOSCOPIC FINDING: : A 2cm, ulcerated mass involving half the luminal circumference wasnoted at the GE junction. There has been a marked evolution in itsendoscopic appearance between 09/2024, 11/2024, and today's examination. The entire examined stomach was normal. The examined duodenum was normal. ENDOSONOGRAPHIC FINDING: : The esophagus and stomach were visualized endosonographically. A hypoechoic mass was found in the gastroesophageal junction. Thelesion was partially circumferential (involving one-half of the lumen circumference). The endosonographic borders were poorly-defined.There was sonographic evidence suggesting invasion into the submucosa(Layer 3), consistent with an at least T2 lesion. There was shadowing and artfiact from the mucosal ulceration. There were two retrocardiaclymph nodes noted (1.4cm and 0.9cm) that were indeterminate and will be evaluated on the upcoming PET scan. Impression: - A 2cm, ulcerated mass involving half the luminal circumference was noted at the GE junction. Therehas been a marked evolution in its endoscopicappearance between 09/2024, 11/2024, and today's examination. - On EUS examination, the mass extended into the submucosa and there was shadowing artifact from the mucosal ulceration. There were two retrocardiaclymph nodes noted (1.4cm and 0.9cm) that wereindeterminate and will be evaluated on the upcoming PET scan. - Overall EUS staging is [id number]. N staging in the context of prior PET non-avid thoracic lymph nodes will depend on upcoming PET scan. Recommendation: - Observe patient's clinical course followingtoday's EGD/EUS. - Followup as scheduled with PET CT scan and consultations with thoracic Surgery (Dr. Juarez) and Medical Oncology (Dr. Hunter). - Resume coumadin and lovenox today and followupwith prescribing provider to monitor INR to therapeutic level. - Followup with Dr. Rosas for repeat Flex Sig and management of symptomatic radiation procticis. - Resume home medications and diet. - Return to primary care physician as previously scheduled. - In the unusual situation that you developabdominal pain, bleeding or other significant problems in the days following this procedure please call my officeat [phone] ([phone]) to speak to my nurses. After hours and evenings please call [phone] speak to the GI fellow compensation manager. Please tell themthat Dr. Dunn did your procedure and that your were instructed to have the fellow call me or thephysician covering for me to discuss the management of your condition. If you have an urgent problem, please goto the nearest emergency room and have the ER doctorcall my office during the day or [facility] transfer ([phone]) center after hours and weekends to arrange admission or transfer to our facility. Attending Participation: I personally performed the entire procedure. Electronically Signed By: Nikolay Dunn M.D. Nikolay Dunn M.D. 12/13/2024 11:44:13 AM . Number of Addenda: 0 Note Initiated On: 12/13/2024 10:03 AM Nikolay Dunn MD ENDOSCOPY PROCEDURES Final Result * (ABNORMAL) Protime-INR (12/13/2024 7:23 AM ORGANIC GARDENING TEACHER) PT 13.9(H) 9.7 - 13.0 sec INR 1.28(H) 0.90 - 1.20 ISAAC JEFFERSON [facility] Comment: Interpretive data Oral anticoagulant therapeutic ranges: Venous thromboembolism prophylaxis or treatment: 2.0-3.0 CARDIOLOGY Standard range: 2.0-3.0 High-intensity range: 2.5-3.5 Refer to indication-specific guidelines for appropriate target ranges for prosthetic heart valve replacement. Current interpretive data was last revised on 2019. Blood Venous blood specimen / Unknown 12/13/2024 7:23 AM ORGANIC GARDENING TEACHER 12/13/2024 7:37 AM ORGANIC GARDENING TEACHER us Nikolay Dunn MD LAB BLOOD ORDERABLES Final Result ISAAC [facility] Department [place] [address] * CT Chest Abdomen Pelvis W Contrast (12/13/2024 7:09 AM ORGANIC GARDENING TEACHER) Anatomical Region Laterality Modality Body N/A Computed Tomogra phy 12/13/2024 7:26 AM ORGANIC GARDENING TEACHER Impressions 12/13/2024 7:26 AM ORGANIC GARDENING TEACHER 1. Nondistended esophagus. No discrete esophageal lesion identified to correspond to known malignancy. 2. No evidence of metastatic disease in the chest, abdomen, and pelvis. Electronically signed by: Courtney Johnson M.D. Narrative 12/13/2024 7:26 AM ORGANIC GARDENING TEACHER EXAMINATION: Computed tomography of the chest, abdomen and pelvis with intravenous contrast HISTORY: Esophageal cancer TECHNIQUE: Transaxial computed tomographic images of the chest, abdomen and pelvis were obtained with intravenous contrast according to standard protocol after the uneventful administration of 70 mL Opti-Ray 350 intravenous contrast. COMPARISON: PET/CT dated 12/31/2021 FINDINGS: Chest: Patent central airways. Unchanged bandlike scarring and atelectasis in the lingula. No suspicious pulmonary nodule. Calcified granulomas in the right lung. No pleural effusion or pneumothorax. No thoracic lymphadenopathy. Calcified right hilar lymph nodes, in keeping with old granulomatous disease. Nondistended esophagus. Small hiatal hernia. Stable mildly dilated ascending aorta measuring 4.2 cm in caliber. Stable mildly dilated main pulmonary artery measuring 3.4 cm in caliber. Normal heart size. No pericardial effusion. Multivessel coronary artery calcification. The imaged thyroid appears normal. Abdomen/Pelvis: The patient is status post cholecystectomy. Calcified granulomas throughout the liver and spleen. The pancreas and adrenal glands appear normal. The kidneys enhance symmetrically without hydronephrosis. Bilateral renal cysts are present, including a septated right renal cyst with calcification. The urinary bladder is collapsed. The prostate is surgically absent. The stomach is nondistended. No evidence of bowel obstruction. No ascites or pneumoperitoneum. No lymphadenopathy in the abdomen and pelvis. Unchanged 2.6 x 1.9 cm lesion along the right pelvic sidewall measuring simple fluid attenuation (744.2), which may represent a lymphocele. Normal caliber abdominal aorta. Postoperative changes of anterior abdominal wall mesh repair. Small fat-containing umbilical hernia. Spinal stimulator with leads extending into the region of the lower lumbar spine; the leads are partially obscured by streak artifact. Bones: No suspicious osseous lesion. Posterior spinal fusion instrumentation extends from L4 to S1. Procedure Note Courtney Johnson MD - 12/13/2024 EXAMINATION: Computed tomography of the chest, abdomen and pelvis with intravenous contrast HISTORY: Esophageal cancer TECHNIQUE: Transaxial computed tomographic images of the chest, abdomen and pelvis were obtained with intravenous contrast according to standard protocol after the uneventful administration of 70 mL Opti-Ray 350 intravenous contrast. COMPARISON: PET/CT dated 12/31/2021 FINDINGS: Chest: Patent central airways. Unchanged bandlike scarring and atelectasis in the lingula. No suspicious pulmonary nodule. Calcified granulomas in the right lung. No pleural effusion or pneumothorax. No thoracic lymphadenopathy. Calcified right hilar lymph nodes, in keeping with old granulomatous disease. Nondistended esophagus. Small hiatal hernia. Stable mildly dilated ascending aorta measuring 4.2 cm in caliber. Stable mildly dilated main pulmonary artery measuring 3.4 cm in caliber. Normal heart size. No pericardial effusion. Multivessel coronary artery calcification. The imaged thyroid appears normal. Abdomen/Pelvis: The patient is status post cholecystectomy. Calcified granulomas throughout the liver and spleen. The pancreas and adrenal glands appear normal. The kidneys enhance symmetrically without hydronephrosis. Bilateral renal cysts are present, including a septated right renal cyst with calcification. The urinary bladder is collapsed. The prostate is surgically absent. The stomach is nondistended. No evidence of bowel obstruction. No ascites or pneumoperitoneum. No lymphadenopathy in the abdomen and pelvis. Unchanged 2.6 x 1.9 cm lesion along the right pelvic sidewall measuring simple fluid attenuation (744.2), which may represent a lymphocele. Normal caliber abdominal aorta. Postoperative changes of anterior abdominal wall mesh repair. Small fat-containing umbilical hernia. Spinal stimulator with leads extending into the region of the lower lumbar spine; the leads are partially obscured by streak artifact. Bones: No suspicious osseous lesion. Posterior spinal fusion instrumentation extends from L4 to S1. IMPRESSION: 1. Nondistended esophagus. No discrete esophageal lesion identified to correspond to known malignancy. 2. No evidence of metastatic disease in the chest, abdomen, and pelvis. Electronically signed by: Courtney Johnson M.D. Nikolay Dunn MD IMG CT PROCEDURES Final Res ult * (ABNORMAL) POCT creatinine (12/13/2024 6:50 AM ORGANIC GARDENING TEACHER) [facility] Creatinine POC 2.0(H) 0.8 - 1.3 mg/dL Blood 12/13/2024 6:50 AM ORGANIC GARDENING TEACHER 12/13/2024 6:50 AM ORGANIC GARDENING TEACHER Nikolay Dunn MD LAB POCT ORDERABLES - DEVIC E Final Result Performing Organization Address City/State/[facility] Co de Phone Number [facility] Department [place] [address] * Transfuse RBC (12/07/2024 3:27 PM ORGANIC GARDENING TEACHER) Blood Janiya Sierra MD BLOOD TRANSFUSION ORDERABLES Fin al Result * Prepare RBC: 1 Units (12/07/2024 10:02 AM ORGANIC GARDENING TEACHER) [facility] Units requested 1 Comment:Testing performed by : [address] [address] Units requested Ready [facility] Comment:Testing performed by : [address] [address] Unit Number [id number] Product code [id number] [facility] Blood Expiration Date [id number] [facility] Product Blood Type (for scanning) 6200 [facility] Product Blood Type APOS [facility] Dispense Status DISPENSED [facility] Blood 12/07/2024 10:0 2 AM ORGANIC GARDENING TEACHER 12/07/2024 10:01 AM ORGANIC GARDENING TEACHER Nena Cano NP BLOOD BANK PRODUCT ORDERABL ES Final Result Performing Organization Address [facility] Co de Phone Number ISAAC [address] [place] [address] * (ABNORMAL) eGFR (12/07/2024 9:29 AM ORGANIC GARDENING TEACHER) eGFR 32(L) >=60 mL/min/1. 73 m2 [...] was last reviewed 2021. Testing performed by: [address] [address] Blood 12/07/2024 9:29 AM ORGANIC GARDENING TEACHER 12/07/2024 9:29 AM ORGANIC GARDENING TEACHER Nena Cano NP LAB BLOOD ORDERABLES Final Result Performing Organization Address City/[facility]/ZIP Co de Phone Number ISAAC [address] [place] [address] * (ABNORMAL) Differential, auto (12/07/2024 9:29 AM ORGANIC GARDENING TEACHER) Neutrophil abs 2.8 1.5 - 6.5 K/cumm Comment:Testing performed by : [address] [address] Imm gran abs 0.0 0.0 - 0.1 K/cumm C[facility]ER Comment:Testing performed by : [address] [address] Lymphocyte abs 0.6(L) 0.8 - 3.3 K/cumm [facility] Comment:Testing performed by : [address] [address] Monocyte abs 0.6 0.2 - 0.8 K/cumm [facility] Comment:Testing performed by : [address], [place]., [address] Eosinophil abs 0.4 0.0 - 0.5 K/cumm [facility] Comment:Testing performed by : [address] [address] Basophil abs 0.1 0.0 - 0.1 K/cumm [facility] Comment:Testing performed by : [address] [address] Neutrophil pct 62.7 % [facility] Comment: Interpretive Data Percent cell count reference ranges are not reported, since discordance with absolute values may lead to misinterpretation of CBC data. Current Interpretive Data was last revised on 2018. Testing performed by: [address] [address] Imm gran pct 0.5 % [facility] Comment: Interpretive Data Percent cell count reference ranges are not reported, since discordance with absolute values may lead to misinterpretation of CBC data. Current Interpretive Data was last revised on 2018. Testing performed by: [address] [address] Lymphocyte pct 14.3 % [facility] Comment: Interpretive Data Percent cell count reference ranges are not reported, since discordance with absolute values may lead to misinterpretation of CBC data. Current Interpretive Data was last revised on 2018. Testing performed by: [address] [address] Monocyte pct 12.5 % [facility] Comment: Interpretive Data Percent cell count reference ranges are not reported, since discordance with absolute values may lead to misinterpretation of CBC data. Current Interpretive Data was last revised on 2018. Testing performed by: [address] [address] Eosinophil pct 8.9 % IS[facility]AC Comment: Interpretive Data Percent cell count reference ranges are not reported, since discordance with absolute values may lead to misinterpretation of CBC data. Current Interpretive Data was last revised on 2018. Testing performed by: [address] [address] Basophil pct 1.1 % ISAAC Comment: Interpretive Data Percent cell count reference ranges are not reported, since discordance with absolute values may lead to misinterpretation of CBC data. Current Interpretive Data was last revised on 2018. Testing performed by: [address] [address] Blood 12/07/2024 9:29 AM ORGANIC GARDENING TEACHER 12/07/2024 9:29 AM ORGANIC GARDENING TEACHER Nena Cano TOOL POLISHING MACHINE OPERATOR LAB BLOOD ORDERABLES Final Result Performing Organization Address [facility] de Phone Number [facility] [address] [facility] Department of Laboratories [place], [place] [id number] * (ABNORMAL) Iron profile w/ IBC (12/07/2024 9:29 AM ORGANIC GARDENING TEACHER) Iron 221(H) 50 - 150 mcg/dL Comment:Testing performed by : [address] [address] TIBC 250 250 - 400 mcg/dL ISAAC Comment:Testing performed by : [address] [address] Transferrin saturation 88(H) 20 - 50 % ISAAC Comment:Testing performed by : [address] [address] Blood 12/07/2024 9:29 AM ORGANIC GARDENING TEACHER 12/07/2024 11:47 AM ORGANIC GARDENING TEACHER Nena Cano TOOL POLISHING MACHINE OPERATOR LAB BLOOD ORDERABLES Final Result Performing Organization Address [facility] de Phone Number ISAAC [address] [facility] Department [place] [address] * (ABNORMAL) CBC with auto differential (12/07/2024 9:29 AM ORGANIC GARDENING TEACHER) WBC 4.4 3.8 - 9.9 K/cumm Comment:Testing performed by : [address] [address] Hgb 8.0(L) 13.0 - 17.5 g/dL ISAAC Comment:Testing performed by : [address] [address] Hct 27.2(L) 38.9 - 50.3 % ISAAC Comment:Testing performed by : [address] [address] Plt 312 150 - 400 K/cumm ISAAC Comment:Testing performed by : [address] [address] MPV 8.5(L) 9.1 - 12.3 fL ISAAC Comment:Testing performed by : [address] [address] RBC 2.78(L) 4.30 - 5.80 M/cumm ISAAC Comment:Testing performed by : [address] [address] MCV 97.8(H) 81.3 - 96.4 fL ISAAC Comment:Testing performed by : [address] [address] MCH 28.8 27.1 - 33.3 pg ISAAC Comment:Testing performed by : [address] [address] MCHC 29.4(L) 32.3 - 35.7 g/dL ISAAC Comment:Testing performed by : [address] [address] RDW CV 16.7(H) 11.1 - 14.9 % ISAAC Comment:Testing performed by : [address], [address] RDW SD 59.7(H) 35.7 - 48.1 fL ISAAC SERNA Comment:Testing performed by : [address] [address] NRBC abs 0.00 0.00 - 0.01 K/cumm ISAAC SERNA Comment:Testing performed by : [address] [address] Blood 12/07/2024 9:29 AM ORGANIC GARDENING TEACHER 12/07/2024 9:29 AM ORGANIC GARDENING TEACHER Nena Cano TOOL POLISHING MACHINE OPERATOR LAB BLOOD ORDERABLES Final Result Performing Organization Address [facility] Co de Phone Number [facility] [place] [address] * ABO/Rh (12/07/2024 9:29 AM ORGANIC GARDENING TEACHER) ABO/Rh A Positive Comment:Testing performed by : [address] [address] Blood 12/07/2024 9:29 AM ORGANIC GARDENING TEACHER 12/07/2024 10:12 AM ORGANIC GARDENING TEACHER Narrative ISAAC - 12/07/2024 10:53 AM ORGANIC GARDENING TEACHER Has the patient had Daratumumab or Isatuximab in the past 6 months?->Unknown Nena Cano TOOL POLISHING MACHINE OPERATOR LAB BLOOD BANK TEST ORDERAB LES Final Result Performing Organization Address [facility] Co de Phone Number [address] [place] [address] * (ABNORMAL) Reticulocyte Count (12/07/2024 9:29 AM ORGANIC GARDENING TEACHER) Retics, absolute 0.200(H) 0.020 - 0.087 M/cumm Comment:Testing performed by : [address] [address] Retics 7.2(H) 0.4 - 2.9 % ISAAC SERNA Comment:Testing performed by : [address] [address] Reticulocyte Hgb 26.3(L) 30.5 - 38.0 pg ISAAC Comment:Testing performed by : [facility], [address] [place] [address]., [address] Blood 12/07/2024 9:2 9 AM ORGANIC GARDENING TEACHER 12/07/2024 9:29 AM ORGANIC GARDENING TEACHER Nena Cano TOOL POLISHING MACHINE OPERATOR LAB BLOOD ORDERABLES Final Result Performing Organization Address City/[facility]/ZIP Co de Phone Number [address]ANA[address] [place] [address] * Crossmatch (12/07/2024 9:29 AM ORGANIC GARDENING TEACHER) Crossmatch Compatible [facility] Unit number for crossmatch [id number] [facility] Blood 12/07/2024 9:29 AM ORGANIC GARDENING TEACHER 12/07/2024 10:12 AM ORGANIC GARDENING TEACHER Nena Cano LAB BLOOD BANK TEST ORDERAB LES Final Result Performing Organization Address [facility] de Phone Number [address] [place] [address] * Antibody screen (12/07/2024 9:29 AM ORGANIC GARDENING TEACHER) Divina, indirect, Gel Interpretation Negative ABSC Comment:Testing performed by : [facility], [address] [place] [address]., [address] Blood 12/07/2024 9:29 AM ORGANIC GARDENING TEACHER 12/07/2024 10:12 AM ORGANIC GARDENING TEACHER Narrative [facility] - 12/07/2024 10:53 AM ORGANIC GARDENING TEACHER Has the patient had Daratumumab or Isatuximab in the past 6 months?->Unknown Nena Cano TOOL POLISHING MACHINE OPERATOR LAB BLOOD BANK TEST ORDERAB LES Final Result Performing Organization Address City/[facility] Co de Phone Number [address] [place] [place] [address] * Ferritin (12/07/2024 9:29 AM ORGANIC GARDENING TEACHER) Pathologist [facility] Ferritin 284 30 - 400 ng/mL Comment:Testing performed by : [address] [address] Blood 12/07/2024 9:29 AM ORGANIC GARDENING TEACHER 12/07/2024 11:47 AM ORGANIC GARDENING TEACHER Nena Cano TOOL POLISHING MACHINE OPERATOR LAB BLOOD ORDERABLES Final Result [facility] [address] [facility] Department [place] [address] * (ABNORMAL) Comprehensive metabolic panel (12/07/2024 9:29 AM ORGANIC GARDENING TEACHER) Pathologist [facility] Sodium 142 135 - 145 mmol/L Comment:Testing performed by : [address] [address] Potassium, pl 4.3 3.3 - 4.9 mmol/L ISAAC Comment:Testing performed by : [address] [address] Chloride 107 97 - 110 mmol/L ISAAC Comment:Testing performed by : [address] [address] CO2 26 22 - 32 mmol/L ISAAC Comment:Testing performed by : [address] [address] Anion gap 9 2 - 15 mmol/L ISAAC Comment:Testing performed by : [address] [address] BUN 14 6 - 25 mg/dL ISAAC Comment:Testing performed by : [address] [address] Creatinine 2.10(H) 0.80 - 1.30 mg/dL ISAAC Comment:Testing performed by : [address] [address] Glucose 99 70 - 199 mg/dL ISAAC [...] was last revised 2022. Testing performed by: [address] [address] Calcium 8.8 8.5 - 10.3 mg/dL ISAAC Comment:Testing performed by : [address] [address] Bilirubin, total <0.2 0.1 - 1.2 mg/dL ISAAC Comment:Testing performed by : [address] [address] Protein, pl 6.2(L) 6.5 - 8.5 g/dL IS[facility] Comment:Testing performed by : [address] [address] Albumin 3.7 3.5 - 5.0 g/dL IS[facility]AC Comment:Testing performed by : [address] [address] Alk phos 67 40 - 130 Units/L ISAAC Comment:Testing performed by : [address] [address] ALT 11 7 - 55 Units/L ISAAC Comment:Testing performed by : [address] [address] AST 15 10 - 50 Units/L ISACA Comment:Testing performed by : [address] [address] Blood 12/07/2024 9:29 AM ORGANIC GARDENING TEACHER 12/07/2024 9:29 AM ORGANIC GARDENING TEACHER Nena Cano NP LAB BLOOD ORDERABLES Final Result [facility] [address] [facility] Department [place] [address] * Colonoscopy (11/17/2024 9:34 AM ORGANIC GARDENING TEACHER) Anatomical Region Laterality Modality Other Narrative Procedure Note Lucio Rosas MD - 11/17/2024 9:34 AM CST [facility] Patient Name: Marshall Olson Procedure Date: 11/17/2024 9:34 AM Date of : 1950 Admit Type: Outpatient Age: 74 Gender: Male Attending MD: Lucio Rosas M.D. Room: [facility] ENDOSCOPY ROOM 03 Note Status: Finalized Procedure: [...] The scope was passed under direct vision.The [id number] colonoscope was introduced through theanus and advanced to the cecum, identified byappendiceal orifice and ileocecal valve. The scope was passed under direct vision. The [id number] colonoscope was introduced through the and advanced [...] On: 11/17/2024 9:34 AM Recognized by the [employer] for promoting quality in endoscopy Lucio Rosas MD ENDOSCOPY PROCEDURES Final Resul t from Last 3 Months or Most Recently Relevant to Health Maintenance Insurance [facility] MEDICARE ADVANTAGE MEDICARE [facility] MEDICARE ADVANTAGE MEDICARE Advance Directives For more information, please contact: [phone] * Full Code (Latest Code Status on File) Date Activated Date Inactivated Comments 01/11/2025 10:34 AM 01/12/2025 5:08 AM * Full Code Date Activated Date Inactivated Comments 12/13/2024 8:18 AM 12/13/2024 5:22 PM 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 Relationship Specialty Start Date End Date Jas Alcala MD [address] [place] [address] PCP - General Internal Medicine 01/04/25 Lucio Rosas MD [address] [address] Consulting Physician Gastroenterology 11/28/24 Bianca Hunter MD [address] [place] [address] Medical Oncologist/Rock Wool Applicator Medical Oncology 12/07/24 Hero Pinedo MD [address] [place] [address] Radiation Oncologist Radiation Oncology 12/28/24 Lon Tomas MD [address] [place] [address] Consulting Physician Urology 01/04/25 Jaycee Teresa MD [address] [place] [address] Consulting Physician Cardiology 01/09/25
--- OUTSIDE RECORDS SUMMARY | 2025-03-06 11:51 | XMS_ITS | CONTINUITY OF CARE DOCUMENT ---
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 examination active Jaycee Teresa MD Leg edema, left active Jaycee Teresa MD Cardiovascular Condition Screening active Jaycee Teresa MD Aortic regurgitation active Jaycee fernandez MD Cardiology examination active Jaycee nevarez MD Abnormal cardiovascular stress test active Jaycee Teresa MD Preop cardiovasc. examination active Jaycee Teresa MD Anemia active Jaycee Teresa MD DJD active Jaycee Teresa MD COPD active Jaycee Teresa MD Cellulitis active Jaycee Teresa MD Shortness of breath active Jaycee Teresa MD ENCOUNTERS Date Type Provider Location Encounter Diag nosis 8 - 8 In-person encounter Office Visit Jaycee Teresa MD [facility] Abnormal cardiovascular stress test 1 - 1 In-person encounter Office Visit Jaycee Teresa MD [facility] Preop cardiovasc. examination 1 - 1 In-person encounter Office Visit Britney Franklin [facility] Office 6 - 1 In-person encounter Office Visit Jaycee Teresa MD [facility] Office Cardiology examination 2 - 9 In-person encounter Office Visit Jaycee Teresa MD [place] [facility] 6 - 8 In-person encounter Office Visit Jaycee Teresa MD [facility] Anemia 1 - 1 In-person encounter Office Visit Jaycee Teresa MD [facility] Cardiovascular Condition ScreeningAortic regurgitation 5 - 7 In-person encounter Office Visit Jaycee Teresa MD [place] [facility] 7 - 0 In-person encounter Office Visit Jaycee Teresa MD [facility] 8 - 8 In-person encounter Office Visit Jaycee Teresa MD [place] [facility] 0 - 0 In-person encounter Office Visit Jaycee Teresa MD [facility] Leg edema, left 0 - 1 In-person encounter Office Visit Jaycee Teresa MD [facility] 0 - 0 In-person encounter Office Visit Bryon Potter MD [facility] 6 - 8 In-person encounter Office Visit Jaycee Teresa MD [facility] 1 - 7 In-person encounter Office Visit Bryon Potter MD [facility] 0 - 2 In-person encounter Office Visit Bryon Potter MD [facility] 9 - 3 In-person encounter Office Visit Bryon Potter MD [facility] 7 - 4 In-person encounter Office Visit Jaycee Teresa MD [place] [facility] Preop cardiovasc. examination 6 - 8 In-person encounter Office Visit Bryon Potter MD [facility] Ventricular tachycardiaFrequent PVC 8 - 0 In-person encounter Office Visit Jaycee Teresa MD [facility] Aortic root dilatationHTN essential 6 - 0 In-person encounter Office Visit Jaycee Teresa MD [facility] LightheadednessSARS-associated coronavirus 5 - 3 In-person encounter Office Visit Jaycee Teresa MD [facility] 0 - 0 In-person encounter Office Visit Jaycee Teresa MD [facility] Chest pain-type to be determined 1 - 7 In-person encounter Office Visit Jaycee Teresa MD [facility] Pulmonary embolism WHILE ON ELIQUIS 1 - 4 In-person encounter Office Visit Jaycee Teresa MD [place] [facility] 1 - 1 In-person encounter Office Visit Jaycee Teresa MD [place] [facility] 3 - 1 In-person encounter Office Visit Jaycee Teresa MD [facility] Office DVT 3 - 5 In-person encounter Office Visit Jaycee Teresa MD [place] [facility] Shortness of breathCellulitisCOPDDJDProstate cancerSleep apnea VITAL SIGNS Date Observation Value Provider Body Mass Index (Ratio) 38.38 kg/m2 Evaristo Cabrera blood pressure, diastolic 72 mm[Hg] [facility] systolic 123 mm[Hg] [facility], oximetry 98 % [facility] pulse rate 67 /min [facility] respiratory rate E&M 12 /min [facility] weight E&M 283 [lb_av] [facility] height E&M 72 [in_i] [facility] blood pressure, cuff size regular [facility] Body Mass Index (Ratio) 38.11 kg/m2 Ping Teresa MD blood pressure, diastolic 67 mm[Hg] [facility] blood pressure, systolic 110 mm[Hg] [facility], oximetry 96 % [facility] pulse rate 83 /min [facility] respiratory rate E&M 12 /min [facility] weight E&M 281 [lb_av] [facility] height E&M 72 [in_i] [facility] blood pressure, cuff size regular [facility] blood pressure, diastolic 74 mm[Hg] Nataliia terrellLog blood pressure, systolic 125 mm[Hg] Bhavya [facility] Body Mass Index (Ratio) 39.06 kg/m2 Kay Franklin DIRECTOR HEALTH blood pressure, cuff size regular Irma umaña [facility] blood pressure, diastolic 74 mm[Hg] Irma umaña [facility] blood pressure, systolic 125 mm[Hg] Cary la [facility] oxygen saturation, oximetry 95 % Amber [facility] pulse rate 92 /min Amber [facility] weight E&M 288 [lb_av] Amber [facility] height E&M 72 [in_i] [facility] Body [facility] Index (Ratio) 33.77 kg/m2 Ping Teresa MD blood pressure, diastolic 64 mm[Hg] Nataliia [facility]Cent[facility] Health blood pressure, systolic 118 mm[Hg] Bhavya [facility] pulse rate 73 /min Ana Thee blood pressure, cuff size regular As nivia Thee blood pressure, diastolic 64 mm[Hg] As [facility] blood pressure, systolic 118 mm[Hg] Checo chandra Thee oxygen saturation, oximetry 96 % [facility] respiratory rate E&M 12 /min [facility] weight E&M 249 [lb_av] [facility] height E&M 72 [in_i] [facility] Body Mass Index (Ratio) 38.78 kg/m2 Evaristo Cabrera blood pressure, cuff size large Ke rri Kathleen blood pressure, diastolic 70 mm[Hg] Ke rri George blood pressure, systolic 124 mm[Hg] Neetu Vazquez oxygen saturation, oximetry 96 % Mary Ellen Starrkimberponoamisatu respiratory rate E&M 14 /min Mary Ellen sanchesisatu pulse rate 78 /min Mary Ellen Harris [facility] weight E&M 286 [lb_av] Mary Ellen Harris height E&M 72 [in_i] Mary Ellen Harris Body Mass Index (Ratio) 38.78 kg/m2 Ping Teresa MD blood pressure, diastolic 86 mm[Hg] Li nkLog blood pressure, systolic 147 mm[Hg] Bhavya kLog blood pressure, cuff size regular Yunior blood pressure, diastolic 86 mm[Hg] Yunior et blood pressure, systolic 147 mm[Hg] Luz Maria ret pulse rate 71 /min Sd oxygen saturation, oximetry 99 % Sd respiratory rate E&M 16 /min Sd weight E&M 286 [lb_av] Sd y height E&M 72 [in_i] [facility] y Body Mass Index (Ratio) 38.51 kg/m2 Ping Teresa MD blood pressure, cuff size regular Jl [facility] blood pressure, diastolic 73 mm[Hg] Fa [facility] blood pressure, systolic 129 mm[Hg] Tarik [facility] pulse rate 77 /min Amalia Coleman oxygen saturation, oximetry 98 % Amalia Coleman respiratory rate E&M 14 /min Amalia elliott weight E&M 284 [lb_av] Amalia Coleman height E&M 72 [in_i] Amalia Coleman Body Mass Index (Ratio) 38.51 kg/m2 bOed Luna blood pressure, cuff size regular Fa deyanira [facility] blood pressure, diastolic 73 mm[Hg] Fa deyanira [facility] blood pressure, systolic 112 mm[Hg] Tarik virk Coleman oxygen saturation, oximetry 97 % Amalia [facility] pulse rate 59 /min [facility] respiratory rate E&M 14 /min Amalia Robledo iller weight E&M 284 [lb_av] [facility] height E&M 72 [in_i] [facility] Body Mass Index (Ratio) 35.53 kg/m2 Ping Teresa MD blood pressure, diastolic 82 mm[Hg] Nataliia nkLogic blood pressure, systolic 137 mm[Hg] Bhavya kLogic blood pressure, cuff size regular Yunior rret blood pressure, diastolic 82 mm[Hg] Yunior rret blood pressure, systolic 137 mm[Hg] Luz Maria elder pulse rate 55 /min Sd y respiratory rate E&M 12 /min Sd oxygen saturation, oximetry 97 % Sd weight E&M 262 [lb_av] Sd y height E&M 72 [in_i] Sd y Body Mass Index (Ratio) 35.53 kg/m2 Ping Teresa MD blood pressure, diastolic 75 mm[Hg] St rosie [place] blood pressure, systolic 127 mm[Hg] Radha [place] oxygen saturation, oximetry 96 % Courtney Toscano pulse rate 70 /min Courtney Toscano respiratory rate E&M 16 /min Courtney amaya weight E&M 262 [lb_av] Courtney Toscano height E&M 72 [in_i] Courtney Toscano Body Mass Index (Ratio) 35.26 kg/m2 Ping Teresa MD pulse rate 49 /min Ale Powell weight E&M 260 [lb_av] Ale Powell respiratory rate E&M 20 /min Ale Powell oxygen saturation, oximetry 96 % Ale Powell blood pressure, diastolic 62 mm[Hg] danii Powell blood pressure, systolic 110 mm[Hg] She charlie Powell blood pressure, cuff size regular danii Powell height E&M 72 [in_i] Ale Sherry Body Mass Index (Ratio) 34.44 kg/m2 Ping Teresa MD blood pressure, diastolic -1 mm[Hg] Li nkLognoa blood pressure, systolic 119 mm[Hg] Bhavya kLognoa blood pressure, diastolic 73 mm[Hg] An mckinley Mueller blood pressure, systolic 119 mm[Hg] Any a Ervin oxygen saturation, oximetry 98 % Yenifer Ervin pulse rate 68 /min Yenifer Ervin weight E&M 254 [lb_av] Yenifer Ervin blood pressure, cuff size large An mckinley Mueller height E&M 72 [in_i] Yenifer Ervin Body Mass Index (Ratio) 35.12 kg/m2 Yoni Mosher blood pressure, diastolic 80 mm[Hg] Ri lizeth Phan blood pressure, systolic 116 mm[Hg] Marky helsaige Phan blood pressure, cuff size large Ri lizeth Phan oxygen saturation, oximetry 98 % Yvonne Phan respiratory rate E&M 16 /min Keith Phan pulse rate 82 /min Yvonne menjivar weight E&M 259 [lb_av] Yvonne Bond son height E&M 72 [in_i] Yvonne menjivar Body Mass Index (Ratio) 35.94 kg/m2 Ping Teresa MD blood pressure, diastolic 85 mm[Hg] Stacy cesar Elio blood pressure, systolic 138 mm[Hg] Jim stuart Elio oxygen saturation, oximetry 97 % Ana Lilia Elio respiratory rate E&M 16 /min Ana Lilia Ballard pulse rate 60 /min Ana Lilia Ballard weight E&M 265 [lb_av] Ana Lilia Ballard height E&M 72 [in_i] Ana Lilia Ballard Body Mass Index (Ratio) 35.67 kg/m2 Sea Potter MD blood pressure, diastolic 85 mm[Hg] Ri lizeth Sylvester blood pressure, systolic 125 mm[Hg] Marky alishasaige Sylvester oxygen saturation, oximetry 97 % Yvonneflory Phan pulse rate 73 /min Yvonne Bond son weight E&M 263 [lb_av] Yvonne menjivar respiratory rate E&M 16 /min Cheyanne Montes blood pressure, cuff size large Damaris Montes height E&M 72 [in_i] Virgie johnson weight E&M 262 [lb_av] Romana Holden Body Mass Index (Ratio) 35.53 kg/m2 Sea Potter MD blood pressure, cuff size large Ke rri Dimauenevasiliy blood pressure, diastolic 62 mm[Hg] Ke rri Dimauenenfisatu blood pressure, systolic 124 mm[Hg] Neetu Vazquez oxygen saturation, oximetry 98 % Mary Ellen Vazquez respiratory rate E&M 16 /min Mary Ellen sancheselder pulse rate 71 /min Mary Ellen Kimberly lder weight E&M 262 [lb_av] Mary Ellen Mattynenfe lder height E&M 72 [in_i] Mary Ellen Kimberly er Body Mass Index (Ratio) 34.99 kg/m2 Brian Parsons Body Mass Index (Ratio) 36.48 kg/m2 Yoni Mosher blood pressure, diastolic 74 mm[Hg] Mi lizeth Emerson blood pressure, systolic 123 mm[Hg] Kian juarez Emerson oxygen saturation, oximetry 96 % Virgie Montes respiratory rate E&M 16 /min Cheyanne barfield Emerson pulse rate 80 /min Virgie johnson weight E&M 269 [lb_av] Virgie johnson height E&M 72 [in_i] Virgie johnson blood pressure, diastolic 71 mm[Hg] Sa ra Lion blood pressure, systolic 113 mm[Hg] Corey a Lion respiratory rate E&M 17 /min Alissa Si ms oxygen saturation, oximetry 97 % Laissa Lion pulse rate 60 /min Alissa Lion [...] oxygen saturation, oximetry 98 % Mary Ellen Martinezelder respiratory rate E&M 16 /min Mary Ellen pedrozanfelder pulse rate 63 /min Mary Ellen Harris lder weight E&M 259 [lb_av] Mary Ellen Starrnepooname lder height E&M 72 [in_i] Mary Ellen Mattynenfe lder Body Mass Index (Ratio) 36.75 kg/m2 Ping Teresa MD blood pressure, diastolic -1 mm[Hg] Li nkLogic blood pressure, systolic 134 mm[Hg] Bhavya [...] Teresa MD blood pressure, diastolic 74 mm[Hg] Nataliia nkLognoa blood pressure, systolic 107 mm[Hg] Bhavya kLogic blood pressure, diastolic 74 mm[Hg] Rh onda Annelise blood pressure, systolic 107 mm[Hg] Rho nda Annelise oxygen saturation, oximetry 98 % Phyllis Annelise pulse rate 56 /min Phyllis Annelise blood pressure, cuff size regular Rh onlouise Castelan respiratory rate E&M 18 /min Phyllis Annelise blood pressure, resting No Jennanupur gil Annelise weight E&M 272 [lb_av] Phyllis Annelise height E&M 72 [in_i] Phyllis Annelise Body Mass Index (Ratio) 39.73 kg/m2 Ping Teresa MD blood pressure, cuff size regular Kr isty [place] blood pressure, diastolic 80 mm[Hg] Kr isty [place] blood pressure, systolic 110 mm[Hg] Kri sty Harrison blood pressure, resting No Tyler bernal Harrison weight E&M 293 [lb_av] Corrie [place] respiratory rate E&M 18 /min Corrie [place] pulse rate 81 /min Corrie [place] oxygen saturation, oximetry 95 % Corrie [place] height E&M 72 [in_i] Corrie [place] Body Mass Index (Ratio) 41.63 kg/m2 Ping [...] Body Mass Index (Ratio) 43.94 kg/m2 José Heredia blood pressure, cuff size regular Kr isty Harrison blood pressure, diastolic 90 mm[Hg] Kr isty [place] blood pressure, systolic 120 mm[Hg] Kri sty Harrison oxygen saturation, oximetry 96 % Corrie Harrison pulse rate 84 /min Corrie Harrison respiratory rate E&M 19 /[facility] 324 [lb_av] [facility] height E&M 72 [in_i] [facility] Body Mass Index (Ratio) 40.55 kg/m2 Ping Teresa MD respiratory rate E&M 16 /min [facility] blood pressure, resting Yes [facility] blood pressure, diastolic 75 mm[Hg] [facility] blood pressure, systolic 108 mm[Hg] [facility] pulse rate 57 /min [facility] oxygen saturation, oximetry 98 % [facility] weight E&M 299 [lb_av] [facility] height E&M 72 [in_i] [facility] Body Mass Index (Ratio) 38.65 kg/m2 Ping Teresa MD blood pressure, diastolic 60 mm[Hg] Er ica Ora blood pressure, systolic 110 mm[Hg] Gladys shar Payan blood pressure, resting No Keshawn Payan oxygen saturation, oximetry 97 % Meredith Payan pulse rate 60 /min Meredith Baez weight E&M 285 [lb_av] Meredith Baez height E&M 72 [in_i] Meredith Maite Baez Body Mass Index (Ratio) 37.78 kg/m2 José Heredia blood pressure, diastolic 60 mm[Hg] Gavin Phillips blood pressure, systolic 94 mm[Hg] Thelma Phillips oxygen saturation, oximetry 97 % Rock Phillips respiratory rate E&M 20 /min Toño Phillips pulse rate 78 /min Rock middleton weight E&M 278.6 [lb_av] Rock gutierrez height E&M 72 [in_i] Rock Rosas nskika ALLERGIES Allergy Name Onset Date Reaction Criticality Status FARXIGA High Criticality active CELEBREX High Criticality active LYRICA High Criticality active AMOXICILLIN High Criticality active RESULTS Date Observation Value Provider Reference Range Interpretation Location prothrombin time (patient) 91.3 s Rashard Escalona RN international normalized ratio (INR) 7.6 Rashard Escalona RN Normal coagulation managed by Rashard Escalona RN international normalized ratio (INR) 2.7 Rashard Escalona RN Normal prothrombin time (patient) 32.5 s Rashard Escalona RN coagulation managed by Rashard Escalona RN international normalized ratio (INR) 2.3 Yadira Hathaway Normal coagulation managed by Yadira Hathaway coagulation managed by Rashard Escalona RN international normalized ratio (INR) 2.0 Rashard Escalona RN Normal prothrombin time (patient) 23.8 s Rashard Escalona RN coagulation managed by Rashard Escalona RN international normalized ratio (INR) 2.9 Rashard Escalona RN Normal prothrombin time (patient) 34.7 s Rashard Escaolna RN coagulation managed by Rashard Escalona RN international normalized ratio (INR) 3.0 Rashard Escalona RN Normal prothrombin time (patient) 35.8 s Rashard Escalona RN international normalized ratio (INR) 3.8 Alen Munguia RN Normal coagulation managed by Rashard Escalona RN international normalized ratio (INR) 5.1 Rashard Escalona RN Normal prothrombin time (patient) 61.7 s Rashard Escalona RN coagulation managed by Rashard Escalona RN Rashard Escalona RN international normalized ratio (INR) 3.2 Rashard Sharps RN Normal prothrombin time (patient) 37.9 s Rashard Sharps RN coagulation managed by Rashard Sharps RN Rashard Escalona RN international normalized ratio (INR) 5.3 Rashard Sharps RN Normal prothrombin time (patient) 63.3 s Rashard Escalona RN coagulation managed by Elizabeth Mueller RN international normalized ratio (INR) 2.4 Elizabeth Mueller RN Normal prothrombin time (patient) 28.4 s Elizabeth Mueller RN coagulation managed by Rashard Escalona RN Rashard Escalona RN international normalized ratio (INR) 2.5 Rashard Escalona RN Normal prothrombin time (patient) 30.4 s Rashard Escalona RN coagulation managed by Rashard Escalona RN Rashard Sharps RN international normalized ratio (INR) 2.6 Rashard Sharps RN Normal prothrombin time (patient) 30.6 s Rashard Sharps RN coagulation managed by Rashard Escalona RN Rashard Sharps RN international normalized ratio (INR) 2.2 Rashard Sharps RN Normal prothrombin time (patient) 26.9 s Rashard Sharps RN coagulation managed by Rashard Escalona RN Rashard Escalona RN international normalized ratio (INR) 4.6 Rashard Escalona RN Normal prothrombin time (patient) 54.6 s Rashard Escalona RN international normalized ratio (INR) 2.9 Elizabeth Mueller RN Normal prothrombin time (patient) 34.6 s Elizabeth Mueller RN coagulation managed by Rashard Escalona RN Rashard Sharps RN international normalized ratio (INR) 2.9 Rashard [...] BY MOUTH EVERY DAY IN THE MORNING Britney Franklin NP pantoprazole 20 mg tablet,delayed release (DR/EC) active daily Britney Franklin NP Lovenox 120 mg/0.8 mL syringe completed Inject 1 syringe subcutaneously twice a day Jean Pruitt needs to be contacted. Will tell you when start coumadin., check with urologist Dr. Reyes when you can start the blood thinner [...] TABLET BY MOUTH TWICE A DAY - [facility] Specialist furosemide 20 mg tablet completed 1 tablet once a day 05/01 - [facility] magnesium oxide 400 mg magnesium [...] completed one tablet twice daily 07/15 - Ifrah Ventura furosemide 20 mg tablet completed 1 tablet [...] MD smoking, year quit 2018 Britney Laker DIRECTOR HEALTH drug use no Britney Hilldle r DIRECTOR HEALTH alcohol use yes Britney Hilldle r DIRECTOR HEALTH number of years as a smoker 40 a Britney Laker DIRECTOR HEALTH smoking history, tot al pack/day 1 Britney Laker DIRECTOR HEALTH cigarette use yes Britney Hilldl er DIRECTOR HEALTH smoking status Former smoker Britney hardyer DIRECTOR HEALTH Exercise counseling Yes Britney Laker DIRECTOR HEALTH drug use no Jaycee fernandez MD alcohol [...] smoker Jaycee herrera MD drug use no Amalia Coleman alcohol use yes Amalia Coleman number of years as a smoker 40 a Amalia Coleman smoking history, tot al pack/day 1 Amalia Coleman cigarette use yes [facility] smoking status Former smoker [facility] drug use no [facility] alcohol use yes [facility] number of years as a smoker 40 a [facility] smoking history, tot al pack/day 1 [facility] cigarette use yes [facility] smoking status Former smoker [facility] social history reviewed E&M revi ewed - no changes required Santosh Tidwell DIRECTOR HEALTH social history E&M S moking History: Sonia larson is a former smoker. Santosh Tidwell DIRECTOR HEALTH drug use no Santosh Tidwell NP alcohol use yes Santosh Tidwell DIRECTOR HEALTH smoking status Former smoker Santosh Wallacelio peterson DIRECTOR HEALTH social history reviewed E&M revi ewed - no changes required Santosh Tidwell DIRECTOR HEALTH social history E&M S moking History: Sonia larson is a former smoker. Santosh Tidwell DIRECTOR HEALTH drug use no Santosh Tidwell DIRECTOR HEALTH alcohol use yes Santosh Tidwell DIRECTOR HEALTH number of years as a smoker 40 a Courtney Toscano smoking history, tot al pack/day 1 Courtney Toscano cigarette use yes Courtney Everton smoking status Former smoker Courtney Toscano social history reviewed E&M revi ewed - no changes required Santosh Tidwell DIRECTOR HEALTH social history E&M S moking History: Sonia larson is a former smoker. Santosh Tidwell DIRECTOR HEALTH drug use no Santosh Tidwell DIRECTOR HEALTH alcohol use yes Santosh Tidwell DIRECTOR HEALTH smoking status Former smoker Santosh Mills ri DIRECTOR HEALTH social history E&M S moking History: Sonia larson is a former smoker. Jaycee Teresa MD social history reviewed E&M revi ewed - no changes required Jaycee Teresa MD number of years as a smoker 40 a Yenifer Mueller smoking history, tot al pack/day 1 Yenifer Mueller cigarette use yes Yenifer Mueller smoking status Former smoker Yenifer Bryan s number of years as a smoker 40 a Yvonne Phan smoking history, tot al pack/day 1 Yvonneflory Phan cigarette use yes Yvonne Lakelico [place] smoking status Former smoker Yvonne marques number of years as a smoker 40 a Gillian Brooks smoking history, tot al pack/day 1 Gillian Brooks cigarette use yes Gillian Brooks smoking status Former smoker Gillianjanet casillas social history reviewed E&M revi ewed - no changes required Gillian Brooks social history E&M Smoking Histo ry: Sonia larson is a former smoker. Gillian Brooks social history E&M S moking History: Sonia larson is a former smoker. Yoni Mosher social history reviewed E&M revi ewed - no changes required Yoni Mosher number of years as a smoker 40 a Yvonne Phan smoking history, tot al pack/day 1 Yvonne Phan cigarette use yes Yvonne [place] smoking status Former smoker Yvonne marques social history E&M S moking History: Sonia larson is a former smoker. Yoni Mosher social history reviewed E&M revi ewed - no changes required Yoni Mosher number of years as a smoker 40 a Mary Ellen Vazquez smoking history, tot al pack/day 1 Mary Ellen Vazquez cigarette use yes Mary Ellen lunsford smoking status Former smoker Mary Ellen levinelder social history reviewed E&M revi ewed - no changes required Yoni Mosher social history reviewed E&M revi ewed - no changes required Naty Caruso social history E&M S moking History: Soina larson is a former smoker. Naty Caruso number of years as a smoker 40 a Mary Ellen Vazquez smoking history, tot al pack/day 1 Mary Ellen Vazquez cigarette use yes Mary Ellen lunsford smoking status Former smoker Mary Ellen Jauregui nfelder social history reviewed E&M revi ewed - no changes required Jaycee Teresa MD social history E&M S moking History: Sonia larson is a former smoker. Jaycee Teresa MD social history reviewed E&M revi ewed - no changes required Jaycee Teresa MD smoking status Former smoker Phyllis Annelise social history E&M S moking History: Sonia larson currently smokes every day. Sonia larson has been counseled to quit. Jaycee Teresa [...] [place] smoking history, tot al pack/day 1 Ifrah Ventura cigarette use yes [facility] social history E&M S moking History: P atient currently smokes every day. P atient has been counseled to quit. Jaycee Teresa MD social history reviewed E&M revi ewed - no changes required Jaycee Teresa MD smoking/tobacco cess ation, patient education and counseling yes Jaycee Teresa MD number of years as a smoker 40 a Jaycee Teresa MD smoking history, tot al pack/day 1 Jyacee Teresa MD cigarette use yes Jaycee sawyer [...] Brooks smoking history, tot al pack/day 1 Stephen Brooks cigarette use yes Stephen Brooks smoking status Current every day smoker T anyi Brooks social history E&M S moking History: P neo currently smokes every day. Jaycee Teresa MD [...] social history E&M S moking History: P neo currently smokes every day. Jaycee Teresa MD social history reviewed E&M revi ewed - no changes required Jaycee Teresa MD number of years as a smoker 40 a Rock Phillips smoking history, tot al pack/day 1 Rock Phillips cigarette use yes Rock gutierrez smoking status Current every day smoker M Kuldip Phillips INSURANCE PROVIDERS Payer name Policy type / Coverage type [employer] party ID [employer] MEDICARE [employer]ANTAGE ST 0 003 (HMO POS) Medicare [id number] ADVANCE DIRECTIVES Name Date DISCUSSED - NO DECISION MADE TREATMENT PLAN Date Name Performer [id number],C, S till has BLE edema. W ILL [...] LIMITAITON WIHT USING THE DRUG) Santosh Tidwell DIRECTOR HEALTH [id number],C, E CHO 02/06/22 C ONCLUSIONS: 1 . [...] Ascending Aorta is 4.60 cm. Santosh Tidwell DIRECTOR HEALTH [id number],C, P atient continues on Coumadin. Previously had a PE while on Eliquis and was switched to Coumadin. Santosh Tidwell DIRECTOR HEALTH [id number],C, S B on EKG todar rate 53. Patient is asymptomatic H is updated medication list for this problem includes: Aspirin 81 Mg Tablet,delayed Release (dr/ec) (Aspirin) ..... Take 1 tablet by mouth once a day Mexiletine 200 Mg Capsule (Mexiletine) ..... Take 1 capsule by mouth three times a day Warfarin 5 Mg Tablet (Warfarin) Santosh Tidwell DIRECTOR HEALTH [id number],C,D ocumented BP reading is from patient's home BP readings due to white coat hypertension. BP today: 137/82 P rior BP: 127/75 (05/29/2023) His updated medication list for this problem includes: Furosemide 20 Mg Tablet (Furosemide) ..... 1 tablet once a day Aspirin 81 Mg Tablet,delayed Release (dr/ec) (Aspirin) ..... Take 1 tablet by mouth once a day Santosh Tidwell NP [id number],C, S till has BLE edema. W ILL NOT BE ABLE TO ADVANCE FURTHER DIURETCS WITHOUT HAVING RENAL INVOLVEMENT MAY WANT TO GET CONSULT BEFORE INCREASING LASIX. M ay take Lasix 20 mg once daily Santosh Tidwell DIRECTOR HEALTH [id number],C, P atient continues on Coumadin. Reports easy bruising with no other bleding concerns. Previously had a PE while on Eliquis and was switched to Coumadin. Santosh Tidwell DIRECTOR HEALTH [id number],C,E CHO 02/06/22 C ONCLUSIONS: 1 . Normal [...] 4.30 cm Ascending Aorta is 4.60 cm. Santsoh Tidwell DIRECTOR HEALTH [id number],C, B P today: 127/75 P rior BP: 110/62 (05/01/2023) His updated medication list for this problem includes: Furosemide 20 Mg Tablet (Furosemide) ..... 1 tablet twice a day Aspirin 81 Mg Tablet,delayed Release (dr/ec) (Aspirin) ..... Take 1 tablet by mouth once a day Santosh Tidwell NP [id number],C, S R on EKG today His updated medication list for this problem includes: Aspirin 81 Mg Tablet,delayed Release (dr/ec) (Aspirin) ..... Take 1 tablet by mouth once a day Mexiletine 200 Mg Capsule (Mexiletine) ..... Take 1 capsule by mouth three times a day Warfarin 5 Mg Tablet (Warfarin) [facility] [id number],C,W orsened LLE edema since stopping Lasix about 3 months ago. R ESTART LASIX AT 20MG BID [facility] [id number],C,Patient darcy is on Coumadin [facility] [id number],C, T he following medications were removed from [...] a day Warfarin 5 Mg Tablet (Warfarin) [facility] [id number],C,P neo continues on Coumadin. Reports easy bruising with no other bleding concerns. Previously had a PE while on Eliquis and was switched to Coumadin. Would recommend IVC filter should he have another PE while on Coumadin [facility] [id number],C,s ymptoms at baseline T he following medications [...] 1 tablet by mouth once a day [facility] [id number],C,P atient denies any current symptoms. P ROBABLY RELATED TO THE COREG Santosh Tidwell DIRECTOR HEALTH [id number],C,E CHO 02/06/22 C ONCLUSIONS: 1 . Normal [...] Aorta is 4.60 cm. Santosh Tidwell AGNIESZKA [id number],C,B P at home in the 120s/70s. T [...] mouth once a day Santosh Tidwell AGNIESZKA [id number],C,S B on EKG today WILL D/C THE [...] Warfarin 5 Mg Tablet (Warfarin) Santosh Tidwell DIRECTOR HEALTH [id number],C, P E on Eliquis. Has been switched to coumadin. INR followed by PCP. Last LVEF was 55% with mild AR, mild IN. Was seen by urologist, no new issues with Prostate CA. 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 IF HE HAS ANOTHER PE ON COUMADIN I WOULD RECOMMEND FIRMLY FOR IVC FILTER. INR per Dr Pruitt January 29, 2023 R EMAINS ON COUMADIN DUE TO THE FACT HE HAD PE ON ELIQUIS Jaycee Teresa MD [id number],C, 4 .24 cm noted on echo will [...] Aorta is 4.60 cm. Jaycee Teresa MD [id number],C,w ill hold lasix and seehow he does H is updated medication list for this problem includes: Aspirin 81 Mg Tablet,delayed Release (/ec) (Aspirin) ..... Take 1 tablet by mouth once a day Carvedilol 3.125 Mg Tablet (Carvedilol) ..... Take 1 tablet by mouth twice a day Furosemide 20 Mg Tablet (Furosemide) ..... 1 tablet once a day as needed Jaycee Teresa MD [id number],C, r eains on mexitil H is updated [...] 5 Mg Tablet (Warfarin) Jaycee Teresa MD [id number],S, p t turned in 24hr monitor 11/20/22. [...] VE Beats: 603 (<1%) Jaycee Teresa MD [id number],C, A t baseline. Britney Franklin NP [id number],C, O n coumadin, will check doppler at next follow up . September 17, 2022 C ONCLUSIONS: 1 . Chronic DVT of the right lower extremity in the veins listed above. 2 . Chronic DVT of the left lower extremity in the veins listed above. E lectronically signed by Jaycee Teresa MD on 09/01/2022 at 3:50 PM Britney Franklin NP [id number],C, P E on Eliquis. Has been switched to coumadin. INR followed by PCP. Last LVEF was 55% with mild AR, mild IN. Was seen by urologist, no new issues with Prostate CA. 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 IF HE HAS ANOTHER PE ON COUMADIN I WOULD RECOMMEND FIRMLY FOR IVC FILTER. INR per Dr Fredrick Franklin NP [id number],C, 4 .24 cm noted on echo will [...] Aorta is 4.60 cm. Britney Franklin NP [id number],C, B P today: 116/80 P rior BP: 138/85 (09/17/2022) His updated medication list for this problem includes: Aspirin 81 Mg Tablet,delayed Release (dr/ec) (Aspirin) ..... Take 1 tablet by mouth once a day Carvedilol 3.125 Mg Tablet (Carvedilol) ..... Take 1 tablet by mouth twice a day Furosemide 20 Mg Tablet (Furosemide) ..... 1 tablet once a day as needed Britney Franklin NP [id number],C,see #1 emy murray 24hr tele results. Britney Franklin NP [id number],C,see #1 Koki Franklin [id number],C,p t turned in 24hr monitor 11/20/22. results pending. 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 Mean oxygen saturation of 9 4%, with the lowest being 83%. Jaycee Teresa MD [id number],C, P E on Eliquis. Has been switched to coumadin. INR followed by PCP. Last LVEF was 55% with mild AR, mild IN. Was seen by urologist, no new issues with Prostate CA. 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 IF HE HAS ANOTHER PE ON COUMADIN I WOULD RECOMMEND FIRMLY FOR IVC FILTER. June 07, [address] Pruitt September 17, [address] Fredrick Teresa MD [id number],C, 4 .24 cm noted on echo will [...] Aorta is 4.60 cm. Jaycee Teresa MD [id number],C, O n coumadin, will check doppler at next follow up . September 17, 2022 C ONCLUSIONS: 1 . Chronic DVT of the right lower extremity in the veins listed above. 2 . Chronic DVT of the left lower extremity in the veins listed above. E lectronically signed by Jaycee Teresa MD on 09/01/2022 at 3:50 PM Jaycee Teresa MD [id number],C,S ummary and Interpretation 1 . Reduced exercise capacity 2 . Normal pressure rate product 3 . No ST segment changes with posexercise, equivocal for ischemia, frequent PVCs. 4 . No chest pain provoked by treadmill exercise 5 . No significant arrhythmias 6 . Patient had modification of modified RENEE protocol due to inability to keep up with treadmill. Jaycee Teresa MD [id number],CYoni i [id number],B,n o chest pain H is updated medication list for this problem includes: Carvedilol 3.125 Mg Tablet (Carvedilol) ..... Take 1 tablet by mouth twice a day Warfarin 5 Mg Tablet (Warfarin) Yoni lefty [id number],S, B P today: 125/85 P rior BP: 124/62 (08/01/2022) Yoni Mosher [id number],S, Yoni Chow i [id number],C, B P today: 125/85 P rior BP: 124/62 (08/01/2022) Yoni Luigilefty [id number],C, H is updated medication list for this problem includes: Orders: 9 9213 LTD 20-29min (CPT-55080) Yoni lefty [id number],C, H is updated medication list for this problem includes: Mexiletine 200 Mg Capsule (Mexiletine) ..... Take 1 capsule by mouth three times a day Carvedilol 3.125 Mg Tablet (Carvedilol) ..... Take 1 tablet by mouth twice a day Warfarin 5 Mg Tablet (Warfarin) Lisinopril 10 Mg Oral Tablet (Lisinopril) ..... One tab. daily O rders: 9 9213 LTD 20-29min (CPT-46180) Yoni Luigilefty [id number],C,S /p PVC ablation, no VT was inducbale thus he is not a candidate for defibrilator. I N FUTURE IF EPICARDIAL ABLATION NEEDED WILL REFER TO [facility] O rders: E KG (CPT-56544) S tress Routine (CPT-87026) 9 9215 HIGH 40-54min (CPT-07164) Yoni Chowlamar [id number],C, S /p PVC ablation, no VT was [...] IF EPICARDIAL ABLATION NEEDED WILL REFER TO [facility] & #13; H is updated medication list for this problem includes: Carvedilol 3.125 Mg Tablet (Carvedilol) ..... Take 1 tablet by mouth twice a day Warfarin 5 Mg Tablet (Warfarin) Orders: S tress Routine (CPT-93053) 9 9215 HIGH 40-54min (CPT-74129) Yoni Chowlamar [id number],S,B P is satisfactory. BP today: 124/62 P rior BP: 123/74 (06/20/2022) His updated medication list for this problem includes: Carvedilol 3.125 Mg Tablet (Carvedilol) ..... Take 1 tablet by mouth twice a day Furosemide 20 Mg Tablet (Furosemide) ..... 1 tablet once a day as needed Yoni Neybetzy [id number],W, N o new sxs. Orders: S tress Routine (CPT-79023) 9 9215 HIGH 40-54min (CPT-32646) Yoni Chowlamar [id number],C,S /p successful PVC/VT ablation. Asymptomatic today will check telemetry. Yoni Neybetzy [id number],C,S /p successful PVC/VT ablation. Asymptomatic today will check telemetry. Yoni Mosher [id number],C, A t baseline. Yoni Mosher [id number],C, O n coumadin, will check doppler at next follow up . Yoni Mosher [id number],C, P E on Eliquis. Has been switched to coumadin. INR followed by PCP. Last LVEF was 55% with mild AR, mild IN. Was seen by urologist, no new issues with Prostate CA. 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 IF HE HAS ANOTHER PE ON COUMADIN I WOULD RECOMMEND FIRMLY FOR IVC FILTER. June 07, [address] Fredrick Teresa MD [id number],C, C ONCLUSIONS: 1 . Chronic DVT of [...] Not a NOAC candidate Jaycee Teresa MD [id number],C, 4 .24 cm noted on echo will repeat echo for further reevaluation Jaycee Teresa MD [id number],C,n eeds bening tumor with lump in left side of face a nd sigmoidoscopy next wk CANNOT COME OFF COUMADIN UNTIL HE HAS DVT STUDY DONE TO EVAL RIGHT LEG H E HAD PROCEDURE DONE ON 06/09/22 Jaycee Teresa MD [id number],C, T he average heart rate was 77bpm [...] nergy delivered: 30 ibrahim. Jaycee Teresa MD [id number],C, T he average heart rate was 77bpm [...] nergy delivered: 30 ibrahim. Jaycee Teresa MD [id number],C,N o new sxs. Yoni Mosher [id number],C, T he average heart rate was 77bpm with a maximum rate of 144bpm and a minimum rate of 50bpm. Had several episodes of VT and PSVT. Continued to have frequent bigeminy PVCs. Will schedule an ablation Yoni yossi [id number],C, M ultifactorial Yoni [facility] [id number],C, H is updated medication list for this problem includes: Carvedilol 3.125 Mg Tablet (Carvedilol) ..... 1 tablet twice a day Furosemide 20 Mg Tablet (Furosemide) ..... 1 tablet once a day as needed Yoni Mosher [id number],C,T he average heart rate was 77bpm with a maximum rate of 144bpm and a minimum rate of 50bpm. Had several episodes of VT and PSVT. Continued to have frequent bigeminy PVCs. Will schedule an ablation Naty Caruso [id number],C,T he average heart rate was 77bpm with a maximum rate of 144bpm and a minimum rate of 50bpm. Had several episodes of VT and PSVT. Continued to have frequent bigeminy PVCs. Will schedule an ablation Naty Caruso [id number],C,T he average heart rate was 77bpm with a maximum rate of 144bpm and a minimum rate of 50bpm. Had several episodes of VT and PSVT. Continued to have frequent bigeminy PVCs. Will schedule an ablation Naty Caruso [id number],C,C hecks bps at home ususally in the 100-110 range H is updated medication list for this problem includes: Carvedilol 3.125 Mg Tablet (Carvedilol) ..... 1 tablet twice a day Furosemide 20 Mg Tablet (Furosemide) ..... 1 tablet once a day as needed Jaycee Teresa MD [id number],S,4 .24 cm noted on echo will repeat echo for further reevaluation Jaycee Teresa MD [id number],C, C ONCLUSIONS: 1 . Chronic DVT of [...] Not a NOAC candidate Jaycee Teresa MD [id number],C, H ighly unlikely to be CAD since he had prior cath in 2019 without obstructive CAD, if inhaler doesn't resolve will advise for GI eval Jaycee Teresa MD [id number],C,vaccinated x3 Jaycee Teresa MD [id number],C, P E on Eliquis. Has been switched to coumadin. INR followed by PCP. Last LVEF was 55% with mild AR, mild IN. Was seen by urologist, no new issues with Prostate CA. 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 IF HE HAS ANOTHER PE ON COUMADIN I WOULD RECOMMEND FIRMLY FOR IVC FILTER. June 07, [address] Fredrick Teresa MD [id number],C, m ild melita on home sleep. Not on CPAP Jaycee Teresa MD [id number],C, H SOME COMPONENT TO SOB WELL HIS MELITA AND HX OF PE. Also has valvular disease. Will check echo. Multifactorial, try inhaler Jaycee Teresa MD [id number],C, P E on Eliquis. Has been switched to coumadin. INR followed by PCP. Last LVEF was 55% with mild AR, mild IN. Was seen by urologist, no new issues with Prostate CA. 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 IF HE HAS ANOTHER PE ON COUMADIN I WOULD RECOMMEND FIRMLY FOR IVC FILTER. June 07, [address] Fredrick Teresa MD [id number],C, C ONCLUSIONS: 1 . Chronic DVT of [...] of thrombosis bilaterally. August 31, 2020 R faustopaulina on Coumadin followed by Dr. Pruitt Had DVT on Eliquis. Not a NOAC candidate Jaycee Teresa MD [id number],C,c ould be related to low BP, needs to maintain low BP due to STEPHENIE Teresa MD [id number],C, H ighly unlikely to be CAD since he had prior cath in 2019 without obstructive CAD, if inhaler doesn't resolve will advise for GI maribel Teresa MD Date Name EKG THYROID PANEL [...] minute walk test Ambulatory Oximetry DLCO - 64634 FRC - 03767 FVC - 56631 HISTORY OF PROCEDURES Procedure Date Procedure Name Provider Procedure Notes S tatus Shannon Teresa MD compl eted Shannon Rooney MD complet ed Complex e/m visit ad d on Jaycee Teresa MD completed Shannon Gonzalez MD complete d Shannon Gonzalez MD complete d Complex e/m visit ad d on Jaycee Teresa MD completed Shannon Teresa MD compl eted Shannon Rooney MD complet ed Shannon Bernard MD completed Shannon Teresa MD compl eted Shannon Escalona RN completed Shannon Teresa MD compl eted Shannon Escalona RN completed Shannon Mueller RN completed Complex e/m visit ad d on Jaycee Teresa MD completed Shannon Gonzalez MD complete d Shannon Gonzalez MD complete d Complex e/m visit ad d on Jaycee Teresa MD completed AMEYA Teresa MD compl eted Shannon Hughes MD completed Protime Lukas Gonzalez MD complete d Protulises Teresa MD compl eted EKG Jaycee Teresa MD compl eted EKG Jaycee Teresa MD compl eted EKG Jaycee Teresa MD compl eted EKG Jaycee Teresa MD compl eted EKG Jaycee Teresa MD compl eted EKG Bryon Potter MD comp leted Schedule Followup Bryon Potter MD in 3 thu completed EKG Bryon Potter MD comp leted [...]
--- OUTSIDE RECORDS SUMMARY | 2025-03-06 11:51 | XMS_ITS | Clinical Summary ---
Author Organization [facility] Address [address] [place] [address] Care Team Providers Care Clock And Watch Hands Dipper Name Role Phone Lucio Rosas MD Unavailable Bianca Hunter MD Unavailable [phone] Hero Pinedo MD Unavailable [phone] Jas Alcala MD Primary Care Provider [phone] Lon Tomas MD Unavailable [phone] Jaycee Teresa MD Unavailable [phone] Allergies Active Allergy Reactions Criticality Noted Date [...] tablet (10 mg total) by mouth daily 024 Active solifenacin (VESIcare) 5 mg tabletIndicati ons:Anemia, unspecified type Take 1 tablet (5 mg total) by mouth nightly Active cyanocobalamin (Vitamin B-12) 1,000 mcg tabletIndicati ons:Anemia, unspecified type Take 1 tablet (1,000 mcg total) by mouth every morning 024 Active ferrous sulfate 325 mg (65 mg of elemental iron) tabletIndicati ons:Anemia, unspecified type Take 1 tablet (325 mg total) by mouth 2 (two) times a day 024 Active nystatin ointment 024 Active albuterol HFA (PROVENTIL HFA,VENTOLIN HFA,PROAIR HFA) [...] He also has a history of an NH and PE. 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 -Pathology discuss in detail and all questions were answered -Refer for EUS -Refer to Oncology and Cardiothoracic surgery Miller's esophagus with high grade dysplasia Assessment & Plan (11/25/2024 9:41 AM PROFESSOR OF PSYCHIATRY): EGD September 2024 with irregular Z-line and gastric ulcers. Pathology with Barretts esophagus, indefinite for dysplasia. Repeat EGD November 2024 with Barretts esophagus, pathology with high-grade dysplasia. -Continue pantoprazole 40 mg p.o. b.i.d. History of colon polyps 11/25/2024 Assessment & Plan (11/25/2024 9:42 AM PROFESSOR OF PSYCHIATRY): Colonoscopy November 2024 with multiple tubular adenomas. -Repeat colonoscopy November 2027 Gastric ulcer 09/23/2024 Anemia due to blood loss 09/23/2024 Rectal bleeding 08/22/2024 Radiation proctitis 08/22/2024 Assessment & Plan (11/25/2024 9:41 AM PROFESSOR OF PSYCHIATRY): Colonoscopy November 2024 with severe radiation proctitis status post APC. -Consider flex sig with APC, patient advised to call office if rectal bleeding gets worse Eosinophilia 02/22/2024 Iron deficiency anemia, unspecified 02/22/2024 Anemia 02/22/2024 VT (ventricular tachycardia) 05/09/2022 Overview (05/09/2022): Added automatically from request for surgery [id number] Lower urinary tract symptoms (LUTS) 05/24/2020 Malignant neoplasm of prostate 04/25/2013 Encounters Date Type Department Care Team Description 5 1:00 PM CDT Office Visit [facility] Oncology [address] [place] [phone] Bianca Hunter MD Malignant neoplasm of lower third of esophagus (HCC) (Primary Dx) 5 12:30 PM CDT Clinical Support [facility] at [address] [address] Malignant neoplasm of lower third of esophagus (HCC); Anemia, unspecified type; History of pulmonary embolism 5 Telephone [facility] Oncology [address] [place] [phone] Georgette Velasco RN 5 11:30 AM CDT Treatment [facility] Medical Office Building 2 Radiation Oncology [address] [place] [address] Hero Pinedo MD 5 Completion of Therapy [facility] Medical Office Building 2 Radiation Oncology [address] [place] [address] Hero Pinedo MD 5 Telephone [facility] Oncology [facility] [place] [phone] Bianca Hunter MD INR results 5 Orders Only RAD ONC TREATMENTS Miscellaneous, Not In File 5 3:00 PM CDT Lab [facility] at [address] [address] 5 12:30 PM CDT Infusion [facility] at [address] [place] [address] Malignant neoplasm of lower third of esophagus (HCC) (Primary Dx) 5 11:30 AM CDT Treatment [facility] Medical Office Building 2 Radiation Oncology [address] [place] [address] 5 Telephone [facility] Bone Marrow Transplant [address] [place] [phone] Ceci Antony NP 5 OTV [facility] Medical Office Building 2 Radiation Oncology [address] [place] [address] Hero Pinedo MD 5 Orders Only RAD ONC TREATMENTS Miscellaneous, Not In File 5 11:35 AM CDT Treatment [facility] Office Building 2 Radiation Oncology [address] [place] [address] Hero Pinedo MD 5 11:30 AM CDT Treatment [facility] Medical Office Building 2 Radiation Oncology [address] [place] [address] Hero Pinedo MD 5 9:45 AM CDT Office Visit [facility] Oncology [address] [place] [phone] Bianca Hunter MD Malignant neoplasm of lower third of esophagus (HCC) (Primary Dx); Abnormal coagulation profile 5 9:15 AM CDT Clinical Support [facility] at [address] [address] Malignant neoplasm of lower third of esophagus (HCC); Abnormal coagulation profile 5 Orders Only RAD ONC TREATMENTS Miscellaneous, Not In File 5 12:15 PM CDT Infusion [facility] at [address] [place] [address] Malignant neoplasm of lower third of esophagus (HCC) (Primary Dx) 5 11:30 AM CDT Treatment [facility] Medical Office Building 2 Radiation Oncology [address] [place] [address] 5 Orders Only [facility] Medical Office Building 2 Radiation Oncology [address] [place] [address] Hero Pinedo MD 5 Orders Only [facility] Oncology [address] [place] [phone] Meme Dean RN 5 Orders Only [facility] Office Building 2 Radiation Oncology [address] [place] [address] Hero Pinedo MD Malignant neoplasm of lower third of esophagus (HCC) (Primary Dx) 5 Orders Only [facility] Office [facility] 2 Radiation Oncology [address] [place] [address] Hero Pinedo MD 5 Orders Only RAD ONC TREATMENTS Miscellaneous, Not In File 5 Orders Only [facility] Medical Office Building 2 Radiation Oncology [address] [place] [address] Hero Pinedo MD Malignant neoplasm of lower third of esophagus (HCC) (Primary Dx) 5 11:30 AM CDT Treatment [facility] Office Building 2 Radiation Oncology [address] [place] [address] 5 Orders Only RAD ONC TREATMENTS Miscellaneous, Not In File 5 2:30 PM CDT Treatment [facility] Medical Office Building 2 Radiation Oncology [address] [place] [address] 5 11:30 AM CDT Infusion [facility] at [address] [place] [address] Malignant neoplasm of lower third of esophagus (HCC) (Primary Dx) 5 Orders Only RAD ONC TREATMENTS Miscellaneous, Not In File 5 Orders Only [facility] Oncology [address] [place] [phone] Meme Dean, WILBER 5 Orders Only [facility] Oncology [address] [place] [phone] Meme Dean, RN Malignant neoplasm of lower third of esophagus (HCC) (Primary Dx) 5 11:30 AM CDT Treatment [facility] Medical Office Building 2 Radiation Oncology [address] [place] [address] 5 OTV [facility] Medical Office Building 2 Radiation Oncology [address] [place] [address] Hero Pinedo MD 5 Orders Only RAD ONC TREATMENTS Miscellaneous, Not In File 5 1:30 PM CDT Clinical Support [facility] Medical Office Building 2 Radiation Oncology [address] [place] [address] Malignant neoplasm of lower third of esophagus (HCC) (Primary Dx) 5 12:00 PM CDT Infusion [facility] at [address] [phone] Anemia, unspecified type (Primary Dx); History of pulmonary embolism 5 11:00 AM CDT Treatment [facility] Medical Office Building 2 Radiation Oncology [address] [place] [address] 5 Orders Only RAD ONC TREATMENTS Miscellaneous, Not In File 5 4:00 PM CDT Clinical Support [facility] at [address] [address] Anemia, unspecified type; History of pulmonary embolism; Malignant neoplasm of lower third of esophagus (HCC) 5 11:30 AM CDT Treatment [facility] Medical Office Building 2 Radiation Oncology [address] [place] [address] 5 Orders Only RAD ONC TREATMENTS Miscellaneous, Not In File 5 11:30 AM CDT Treatment [facility] Medical Office Building 2 Radiation Oncology [address] [place] [address] 5 9:30 AM CDT Office Visit [facility] Otolaryngology [address] [place] [phone] Jairo Carr MD Mass of left parotid gland (Primary Dx); Malignant neoplasm of lower third of esophagus (HCC) 5 Orders Only RAD ONC TREATMENTS Miscellaneous, Not In File 5 11:30 AM CDT Treatment [facility] Medical Office Building 2 Radiation Oncology [address] [place] [address] 5 Orders Only RAD ONC TREATMENTS Miscellaneous, Not In File 5 11:30 AM CDT Treatment [facility] Office Building 2 Radiation Oncology [address] [place] [address] 5 OTV [facility] Office Building 2 Radiation Oncology [address] [place] [address] Hero Pinedo MD 5 Orders Only RAD ONC TREATMENTS Miscellaneous, Not In File 5 1:30 PM CDT Infusion [facility] at [address] [place] [phone] Malignant neoplasm of lower third of esophagus (HCC) (Primary Dx) 5 1:00 PM CDT Office Visit [facility] Physicians [facility] Oncology [facility] [address] [place] [address] Bianca Hunter MD Malignant neoplasm of lower third of esophagus (HCC) (Primary Dx) 5 12:30 PM CDT Clinical Support [facility] at [address] [address] Malignant neoplasm of lower third of esophagus (HCC); Anemia, unspecified type; History of pulmonary embolism 5 11:30 AM CDT Treatment [facility] Medical Office Building 2 Radiation Oncology [address] [place] [address] 5 Orders Only RAD ONC TREATMENTS Miscellaneous, Not In File 5 12:00 PM CDT Clinical Support [facility] Medical Office Building 2 Radiation Oncology [address] [place] [address] Malignant neoplasm of lower third of esophagus (HCC) (Primary Dx) 5 11:30 AM CDT Treatment [facility] Medical Office Building 2 Radiation Oncology [address] [place] [address] 5 Orders Only RAD ONC TREATMENTS Miscellaneous, Not In File 5 11:30 AM CDT Treatment [facility] Medical Office Building 2 Radiation Oncology [address] [place] [address] 5 Orders Only RAD ONC TREATMENTS Miscellaneous, Not In File 5 11:30 AM CDT Treatment [facility] Medical Office Building 2 Radiation Oncology [address] [place] [address] 5 Orders Only RAD ONC TREATMENTS Miscellaneous, Not In File 5 11:30 AM CDT Treatment [facility] Office Building 2 Radiation Oncology [address] [place] [address] 5 OTV [facility] Office Building 2 Radiation Oncology [address] [place] [address] Hero Pinedo MD 5 Orders Only RAD ONC TREATMENTS Miscellaneous, Not In File 5 12:45 PM CDT Infusion [facility] at [address] [place] [address] Malignant neoplasm of lower third of esophagus (HCC) (Primary Dx) 5 12:15 PM CDT Clinical Support [facility] at [address] [address] Malignant neoplasm of lower third of esophagus (HCC) 5 11:30 AM CDT Treatment [facility] Medical Office Building 2 Radiation Oncology [address] [place] [address] 5 Orders Only [facility] Physicians [facility] Oncology [address] [place] [phone] Meme Dean RN 5 Orders Only RAD ONC TREATMENTS Miscellaneous, Not In File 5 Orders Only [facility] Oncology [address] [place] [phone] Bianca Hunter MD 5 12:30 PM CDT Clinical Support [facility] Medical Office Building 2 Radiation Oncology [address] [place] [address] Malignant neoplasm of lower third of esophagus (HCC) (Primary Dx); Malignant neoplasm of prostate (HCC); Miller's esophagus with high grade dysplasia; Atrial fibrillation, unspecified type (HCC); Iron deficiency anemia, unspecified iron deficiency anemia type 5 12:00 PM CDT Infusion [facility] [place] at [address] [place] [address] Anemia, unspecified type (Primary Dx); History of pulmonary embolism 5 11:30 AM CDT Treatment [facility] Office Building 2 Radiation Oncology [address] [place] [address] 5 9:15 AM CDT Clinical Support [facility] at [address] [address] Anemia, unspecified type; History of pulmonary embolism 5 Orders Only RAD ONC TREATMENTS Miscellaneous, Not In File 5 11:30 AM CDT Treatment [facility] Office Building 2 Radiation Oncology [address] [place] [address] 5 Orders Only RAD ONC TREATMENTS Miscellaneous, Not In File 5 11:30 AM CDT Treatment [facility] Office Building 2 Radiation Oncology [address] [place] [address] 5 Orders Only RAD ONC TREATMENTS Miscellaneous, Not In File 5 12:02 PM CDT - 5 11:59 PM CDT Hospital Encounter [facility] MOB 1 DIAG IMG [address] [place] [address] Malignant neoplasm of lower third of esophagus (HCC); Acute pain Discharge Disposition: Discharge to home or self care 5 11:30 AM CDT Treatment [facility] Office Building 2 Radiation Oncology [address] [place] [address] 5 OTV [facility] Office Building 2 Radiation Oncology [address] [place] [address] Hero Pinedo MD 5 Orders Only RAD ONC TREATMENTS Miscellaneous, Not In File 5 1:45 PM CDT Infusion [facility] at [address] [address] Malignant neoplasm of lower third of esophagus (HCC) (Primary Dx) 5 12:45 PM CDT Office Visit [facility] Oncology [address] [place] [phone] Bianca Hunter MD Malignant neoplasm of lower third of esophagus (HCC) (Primary Dx); Acute pain 5 12:15 PM CDT Clinical Support [facility] at [address] [address] Malignant neoplasm of lower third of esophagus (HCC) 5 11:30 AM CDT Treatment [facility] Medical Office Building 2 Radiation Oncology [address] [place] [address] 5 Orders Only RAD ONC TREATMENTS Miscellaneous, Not In File 5 11:30 AM CDT Treatment [facility] Office Building 2 Radiation Oncology [address] [place] [address] 5 Orders Only RAD ONC TREATMENTS Miscellaneous, Not In File 5 11:30 AM CDT Treatment [facility] Medical Office Building 2 Radiation Oncology [address] [place] [address] 5 Orders Only RAD ONC TREATMENTS Miscellaneous, Not In File 5 11:30 AM CDT Treatment [facility] Office Building 2 Radiation Oncology [address] [place] [address] 5 Orders Only RAD ONC TREATMENTS Miscellaneous, Not In File 5 11:30 AM CDT Treatment [facility] Office Building 2 Radiation Oncology [address] [place] [address] 5 OTV [facility] Office Building 2 Radiation Oncology [address] [place] [address] Kelin Patterson MD Malignant neoplasm of lower third of esophagus (HCC) (Primary Dx) 5 Orders Only RAD ONC TREATMENTS Miscellaneous, Not In File 5 10:00 AM CDT Infusion [facility] [place] at [address] [address] Malignant neoplasm of lower third of esophagus (HCC) (Primary Dx) 5 9:30 AM CDT Office Visit [facility] Physicians [facility] Oncology [address] [place] [phone] Bianca Hunter MD Malignant neoplasm of lower third of esophagus (HCC) (Primary Dx) 5 9:00 AM CDT Clinical Support [facility] at [address] [address] Malignant neoplasm of lower third of esophagus (HCC) 5 8:45 AM CDT Treatment [facility] Medical Office Building 2 Radiation Oncology [address] [place] [address] Hero Pinedo MD 5 8:30 AM CDT Treatment [facility] Office Building 2 Radiation Oncology [address] [place] [address] Lon Marti MD 5 Orders Only RAD ONC TREATMENTS Miscellaneous, Not In File 5 1:30 PM CDT Clinical Support [facility] Medical Office Building 2 Radiation Oncology [address] [place] [address] Malignant neoplasm of lower third of esophagus (HCC) (Primary Dx); Malignant neoplasm of prostate (HCC); Miller's esophagus with high grade dysplasia; History of colon polyps; Iron deficiency anemia, unspecified iron deficiency anemia type 5 1:00 PM CDT Infusion [facility] [place] at [address] [address] Anemia, unspecified type (Primary Dx); History of pulmonary embolism 5 9:30 AM CDT Clinical Support [facility] [place] at [address] [address] Anemia, unspecified type; History of pulmonary embolism 5 7:55 PM CDT Treatment [facility] Medical Office Building 2 Radiation Oncology [address] [place] [address] 5 7:55 PM CDT Treatment [facility] Medical Office Building 2 Radiation Oncology [address] [place] [address] 5 9:31 AM CDT - 5 11:59 PM CDT Hospital Encounter [facility] Radiology [facility] [address] [place] [address] Bianca Hunter MD Malignant neoplasm of lower third of esophagus (HCC) Discharge Disposition: Discharge to home or self care 5 Telephone [facility] Surgery [address] [place] [address] 5 [place] [address] Lorie Little NP 5 6:58 AM PROFESSOR OF PSYCHIATRY - 5 11:59 PM PROFESSOR OF PSYCHIATRY Hospital Encounter [facility] Nuclear Medicine [address] [place] [address] Atrial fibrillation, unspecified type (HCC); Coronary artery disease, unspecified vessel or lesion type, unspecified whether angina present, unspecified whether new[place] or transplanted heart Discharge Disposition: Discharge to home or self care 5 6:58 AM PROFESSOR OF PSYCHIATRY - 5 11:59 PM PROFESSOR OF PSYCHIATRY Hospital Encounter [facility] Nuclear Medicine [address] [place] [address] Discharge Disposition: Discharge to home or self care 5 6:58 AM PROFESSOR OF PSYCHIATRY - 5 11:59 PM PROFESSOR OF PSYCHIATRY Hospital Encounter [facility] Nuclear Medicine [address] [place] [address] Atrial fibrillation, unspecified type (HCC); Coronary artery disease, unspecified vessel or lesion type, unspecified whether angina present, unspecified whether [place] or transplanted heart Discharge Disposition: Discharge to home or self care 5 Telephone [facility] Radiology [facility] [place] [address] [place] [address] Shaniqua Chandler NP 5 Telephone [facility] Radiology [address] [place] [address] Erma Box, WILBER 5 7:24 AM PROFESSOR OF PSYCHIATRY - 5 11:59 PM PROFESSOR OF PSYCHIATRY Hospital Encounter [facility] Respiratory Therapy [address] [place] [address] Atrial fibrillation, unspecified type (HCC); Coronary artery disease, unspecified vessel or lesion type, unspecified whether angina present, unspecified whether [place] or transplanted heart Discharge Disposition: Discharge to home or self care 5 11:00 AM PROFESSOR OF PSYCHIATRY Office Visit [facility] Hematology [address] [place] [address] [address] [place] [address] Nena Cano NP Anemia, unspecified type (Primary Dx); History of pulmonary embolism 5 9:30 AM PROFESSOR OF PSYCHIATRY Treatment [facility] Medical Office Building 2 Radiation Oncology [address] [place] [address] Hero Pinedo MD 5 9:00 AM PROFESSOR OF PSYCHIATRY Consult [facility] Medical Office Building 2 Radiation Oncology [address] [place] [address] Hero Pinedo MD Malignant neoplasm of lower third of esophagus (HCC) 5 8:00 AM PROFESSOR OF PSYCHIATRY Lab [facility] at [address] [address] Anemia, unspecified type; History of pulmonary embolism 5 Orders Only [facility] Physicians [facility] Oncology [address] [place] [address] [address] [place] [address] Meme Dean, RN Malignant neoplasm of lower third of esophagus (HCC) (Primary Dx) 5 Orders Only [facility] Oncology [address] [place] [phone] Meme Dean, RN 5 Telephone [facility] Medical Office Building 2 Radiation Oncology [address] [place] [address] Alissa Morales 5 2:00 PM PROFESSOR OF PSYCHIATRY Office Visit [facility] Oncology [address] [place] [address] [address] [place] [address] Bianca Hunter MD Malignant neoplasm of lower third of esophagus (HCC) (Primary Dx) 5 1:30 PM PROFESSOR OF PSYCHIATRY Lab [facility] at [address] [address] Anemia, unspecified type; History of pulmonary embolism 5 Telephone [facility] at [address] [address] Francie Hassan RN 5 8:30 AM PROFESSOR OF PSYCHIATRY Office Visit [facility] Surgery [address] [place] [phone] Charlie Juarez MD Malignant neoplasm of lower third of esophagus (HCC) (Primary Dx) 5 Orders Only [facility] Surgery [address] [facility] [address] [place] [address] Charlie Juarez MD Atrial fibrillation, unspecified type (HCC) (Primary Dx); Coronary artery disease, unspecified vessel or lesion type, unspecified whether angina present, unspecified whether newtok or transplanted heart 5 7:30 AM PROFESSOR OF PSYCHIATRY - 5 11:59 PM PROFESSOR OF PSYCHIATRY Hospital Encounter [facility] Medical Office Building [address] [address] Malignant neoplasm of lower third of esophagus (HCC) Discharge Disposition: Discharge to home or self care 5 9:00 AM PROFESSOR OF PSYCHIATRY Lab [facility] at [address] [address] Anemia, unspecified type; History of pulmonary embolism [address] [address] Abigail Hernandez RN 5 Orders Only [facility] Hematology [address] [facility] [address] [place] [address] Gertrude Zhang Anemia, unspecified type (Primary Dx); History of pulmonary embolism 5 11:00 AM PROFESSOR OF PSYCHIATRY - 5 12:00 PM PROFESSOR OF PSYCHIATRY Surgery [facility] Digestive Disease [address] [address] Nikolay Dunn MD ESOPHAGOGASTRODUODENOSCOPY ENDOSCOPIC ULTRASOUND [GI509] 5 9:55 AM PROFESSOR OF PSYCHIATRY Anesthesia Event [facility] Digestive Disease [address] [address] Will Fish MD 5 8:00 AM PROFESSOR OF PSYCHIATRY Lab [facility] [address] [place] [phone] Malignant neoplasm of lower third of esophagus (HCC); Atrial fibrillation, unspecified type (HCC) 5 7:38 AM PROFESSOR OF PSYCHIATRY - 5 11:25 AM PROFESSOR OF PSYCHIATRY Hospital Encounter [facility] Digestive Disease [address] [address] Nikolay Dunn MD Malignant neoplasm of lower third of esophagus (HCC) Discharge Disposition: Discharge to home or self care 5 6:33 AM PROFESSOR OF PSYCHIATRY - 5 11:59 PM PROFESSOR OF PSYCHIATRY Hospital Encounter [facility] [facility]) [address] [place] [id number] Nikolay Dunn MD Malignant neoplasm of lower third of esophagus (HCC) Discharge Disposition: Discharge to home or self care 5 12:00 PM PROFESSOR OF PSYCHIATRY Infusion [facility] at [address] [phone] Anemia, unspecified type (Primary Dx) 5 9:00 AM PROFESSOR OF PSYCHIATRY Lab [facility] at [address] [address] Anemia, unspecified type from Last 3 Months Immunizations Immunization Administration Dates Next Due Influenza, [...] Nerve Sparing Laparoscopic - 05/03/2013 (Added by TW Conv) TONSILLECTOMY Tonsillectomy - (Added by TW Conv) NM REPAIR FIRST ABDOMINAL WA LL HERNIA Ventral Hernia Repair - 11/2013 (Added by TW Conv) w/poss mesh CATARACT EXTRACTION, BILATERAL COLONOSCOPY URETHRAL DILATION N/A UPPER GASTROINTESTINAL ENDOSCOPY PORT PLACEMENT CHEST >5 YEARS 01/11/2025 N/A Medical History Medical History Date Comments Chronic bronchitis with productive mucopurulent cough (HCC) Prostate cancer (HCC) Hepatitis A Neuropathy 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[place] (myocardial infarction) (HCC) 2018 PE (pulmonary thromboembolism) (HCC) 2019 GERD (gastroesophageal reflux disease) Chronic kidney disease stage 3 Neck pain Obesity Full dentures upper and lower Wears glasses Colon polyp Dysphagia Atrial fibrillation (HCC) HTN (hypertension) DVT (deep venous thrombosis) (HCC) History of radiation therapy Tinnitus Neck mass Family History Medical History Relation Name Comments Pancreatic cancer Father Breast cancer Mother Breast Cancer - (Added by TW Conv) Breast cancer Other Breast Cancer - (Added by TW Conv) Relation Name Status Comments Father Mother Other Social History Tobacco Use Types Packs/Day Years Used Date Smoking Tobacco: Former Cigarettes 2019 Smokeless Tobacco: Never Tobacco Cessation:Counseling Given: [...] on file Legal Sex Male 9:38 AM PROFESSOR OF PSYCHIATRY Gender Identity Not on file Sexual Orientation Not on file 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 Not on file Not on file Not [...] 02/14/2025 9:32 AM CDT Plan of Treatment Health Maintenance Due Date Last Done Comments Depression Screening 1950 Hepatitis C Screening 1950 DTaP/Tdap/Td Vaccine (1 - Tdap) 1961 Hepatitis B Screening 01/18/1968 Pneumococcal vaccine 65+ (1 of 2 - PCV) 1969 Zoster Vaccine (1 of 2) 1969 Lung Cancer Screening 01/18/2000 Well Visit 65+ 2015 Covid-19 Vaccine (3 - Modern a risk series) 12/03/2021 11/05/2021, 10/21/2021, 01/01/2021, Additional history exists Fall Risk Assessment 01/04/2026 01/04/2025, 12/13/19 25 Colon Cancer Screening-Colonoscopy 11/17/2027 11/17/2024 Influenza Vaccine Completed 07/12/2024, , 09/17/2019, Additional history exists Colon Cancer Screening-CT Colonography Discontinued 11/17/2024 Colon Cancer Screening-DNA Stool Discontinued 11/17/19 25 Colon Cancer Screening-FIT Discontinued 11/17/2024 Colon Cancer Screening-Sigmoidoscopy Discontinued 11/17/2024 Abdominal Aortic Aneurysm (A AA) Screen Completed 12/13/2024 Medical Devices Implanted Type Area Vice President Fixed Income Device Identifier Shelf Expiration Date Model / Serial / Lot Screws And Rods Spine Lumbar [employer] Xcela Power Port 8fr [id number] - [id number] Implanted:Qty: 1 on 01/11/2025 by Linda Cardenas PA at [facility] [employer] 08/29/2029 [id number] / / [id number] Procedures Procedure Name Priority Date/Time Associated Diagnosis [...] Read Routine (OP Routine) 01/06/2025 9:00 AM PROFESSOR OF PSYCHIATRY Atrial fibrillation, unspecified type (HCC) Coronary artery disease, unspecified vessel or lesion type, unspecified whether angina present, unspecified whether [place] or transplanted heart NM MPI SPECT (REST AND/OR STRESS) MULTIPLE STUDIES Schedule Routine, Read Routine (OP Routine) 01/06/2025 9:00 AM PROFESSOR OF PSYCHIATRY Atrial fibrillation, unspecified type (HCC) Coronary artery disease, unspecified vessel or lesion type, unspecified whether angina present, unspecified whether [place] or transplanted heart PULMONARY FUNCTION TEST (PFT) Routine 01/05/2025 8:10 AM PROFESSOR OF PSYCHIATRY Atrial fibrillation, unspecified type (HCC) Coronary artery disease, unspecified vessel or lesion type, unspecified whether angina present, unspecified whether new[place] or transplanted heart EGFR Routine 01/04/2025 8:34 AM PROFESSOR OF PSYCHIATRY Anemia, unspecified type History of pulmonary embolism DIFFERENTIAL AUTO Routine 01/04/2025 8:3 4 AM PROFESSOR OF PSYCHIATRY Anemia, unspecified type History of pulmonary embolism CBC WITH AUTO DIFFERENTIAL Routine 01/04/2025 8:34 AM PROFESSOR OF PSYCHIATRY Anemia, unspecified type History of pulmonary embolism COMPREHENSIVE METABOLIC PANEL Routine 01/04/2025 8:34 AM PROFESSOR OF PSYCHIATRY Anemia, unspecified type History of pulmonary embolism FERRITIN Routine 01/04/2025 8:34 AM PROFESSOR OF PSYCHIATRY Anemia, unspecified type History of pulmonary embolism IRON PROFILE W/ IBC Routine 01/04/2025 8 :34 AM PROFESSOR OF PSYCHIATRY Anemia, unspecified type History of pulmonary embolism RETICULOCYTES Routine 01/04/2025 8:34 AM PROFESSOR OF PSYCHIATRY Anemia, unspecified type History of pulmonary embolism EGFR Routine 12/27/2024 1:25 PM PROFESSOR OF PSYCHIATRY Anemia, unspecified type History of pulmonary embolism DIFFERENTIAL AUTO Routine 12/27/2024 1:2 5 PM PROFESSOR OF PSYCHIATRY Anemia, unspecified type History of pulmonary embolism CBC WITH AUTO DIFFERENTIAL Routine 12/27/2024 1:25 PM PROFESSOR OF PSYCHIATRY Anemia, unspecified type History of pulmonary embolism COMPREHENSIVE METABOLIC PANEL Routine 12/27/2024 1:25 PM PROFESSOR OF PSYCHIATRY Anemia, unspecified type History of pulmonary embolism FERRITIN Routine 12/27/2024 1:25 PM PROFESSOR OF PSYCHIATRY Anemia, unspecified type History of pulmonary embolism IRON PROFILE W/ IBC Routine 12/27/2024 1 :25 PM PROFESSOR OF PSYCHIATRY Anemia, unspecified type History of pulmonary embolism RETICULOCYTES Routine 12/27/2024 1:25 PM PROFESSOR OF PSYCHIATRY Anemia, unspecified type History of pulmonary embolism PET/CT FDG SKULL TO THIGH Schedule Routine, Read Routine (OP Routine) 12/16/2024 9:43 AM PROFESSOR OF PSYCHIATRY Malignant neoplasm of lower third of esophagus (HCC) POCT GLUCOSE DEVICE Routine 12/16/2024 7 :51 AM PROFESSOR OF PSYCHIATRY EGFR Routine 12/14/2024 9:08 AM PROFESSOR OF PSYCHIATRY Anemia, unspecified type History of pulmonary embolism DIFFERENTIAL AUTO Routine 12/14/2024 9:0 8 AM PROFESSOR OF PSYCHIATRY Anemia, unspecified type History of pulmonary embolism CBC WITH AUTO DIFFERENTIAL Routine 12/14/2024 9:08 AM PROFESSOR OF PSYCHIATRY Anemia, unspecified type History of pulmonary embolism COMPREHENSIVE METABOLIC PANEL Routine 12/14/2024 9:08 AM PROFESSOR OF PSYCHIATRY Anemia, unspecified type History of pulmonary embolism FERRITIN Routine 12/14/2024 9:08 AM PROFESSOR OF PSYCHIATRY Anemia, unspecified type History of pulmonary embolism IRON PROFILE W/ IBC Routine 12/14/2024 9 :08 AM PROFESSOR OF PSYCHIATRY Anemia, unspecified type History of pulmonary embolism RETICULOCYTES Routine 12/14/2024 9:08 AM PROFESSOR OF PSYCHIATRY Anemia, unspecified type History of pulmonary embolism US ENDOSCOPIC IP Routine 12/13/2024 10:22 AM PROFESSOR OF PSYCHIATRY Malignant neoplasm of lower third of esophagus (HCC) UPPER EUS 12/13/2024 10:03 AM PROFESSOR OF PSYCHIATRY PROTIME-INR STAT 12/13/2024 7:23 AM PROFESSOR OF PSYCHIATRY Malignant neoplasm of lower third of esophagus (HCC) Atrial fibrillation, unspecified type (HCC) CT CHEST ABDOMEN PELVIS W CONTRAST Schedule Routine, Read Routine (OP Routine) 12/13/2024 7:09 AM PROFESSOR OF PSYCHIATRY Malignant neoplasm of lower third of esophagus (HCC) POCT CREATININE - DEVICE Routine 12/13/2024 6:50 AM PROFESSOR OF PSYCHIATRY TRANSFUSE RED BLOOD CELLS Timed 12/07/2024 12:56 PM PROFESSOR OF PSYCHIATRY Anemia, unspecified type PREPARE RBC Routine 12/07/2024 10:02 AM PROFESSOR OF PSYCHIATRY Anemia, unspecified type CROSSMATCH Routine 12/07/2024 9:29 AM PROFESSOR OF PSYCHIATRY Anemia, unspecified type EGFR Routine 12/07/2024 9:29 AM PROFESSOR OF PSYCHIATRY Anemia, unspecified type DIFFERENTIAL AUTO Routine 12/07/2024 9:2 9 AM PROFESSOR OF PSYCHIATRY Anemia, unspecified type ANTIBODY SCREEN Routine 12/07/2024 9:29 AM PROFESSOR OF PSYCHIATRY Anemia, unspecified type ABO/RH Routine 12/07/2024 9:29 AM PROFESSOR OF PSYCHIATRY Anemia, unspecified type TYPE AND SCREEN Routine 12/07/2024 9:29 AM PROFESSOR OF PSYCHIATRY Anemia, unspecified type CBC WITH AUTO DIFFERENTIAL Routine 12/07/2024 9:29 AM PROFESSOR OF PSYCHIATRY Anemia, unspecified type COMPREHENSIVE METABOLIC PANEL Routine 12/07/2024 9:29 AM PROFESSOR OF PSYCHIATRY Anemia, unspecified type FERRITIN Routine 12/07/2024 9:29 AM PROFESSOR OF PSYCHIATRY Anemia, unspecified type RETICULOCYTES Routine 12/07/2024 9:29 AM PROFESSOR OF PSYCHIATRY Anemia, unspecified type IRON PROFILE W/ IBC Routine 12/07/2024 9 :29 AM PROFESSOR OF PSYCHIATRY Anemia, unspecified type COLONOSCOPY 11/17/2024 9:34 AM PROFESSOR OF PSYCHIATRY from Last 3 Months or Most Recently Relevant to Health Maintenance Results * (ABNORMAL) Protime-INR (02/28/2025 12:40 PM CDT) PT 41.1(H) 12.0 - 14.6 sec Comment: Ref Range High Testing performed by: [address] [address] INR 4.4(H) 0.9 - 1.2 [facility] Comment: Ref Range High Interpretive data Oral anticoagulant therapeutic ranges: Venous thromboembolism prophylaxis or treatment: 2.0-3.0 CARDIOLOGY Standard range: 2.0-3.0 High-intensity range: 2.5-3.5 Refer to indication-specific guidelines for appropriate target ranges for prosthetic heart valve replacement. Current interpretive data was last revised on 2019. Testing performed by: [address] [address] Blood 02/28/2025 12:4 0 PM CDT 02/28/2025 1:32 PM CDT us Jas Alcala MD LAB BLOOD ORDERABLES Final R esult Performing Organization Address City/[facility] Co de Phone Number DAYANA[address] [address] * Blood smear review (02/28/2025 12:03 PM CDT) RBC morphology Consistent with RBC Indicies Comment:Testing performed by : [facility], [address] [place] [address]., [address] Platelet estimate Adequate [facility] Comment:Testing performed by : [facility], [address] [place] [address]., [address] Blood 02/28/2025 12:0 3 PM CDT 02/28/2025 12:05 PM CDT Bianca Hunter MD LAB BLOOD ORDERABLES Final Result Performing Organization Address [facility] Co de Phone Number DAYANA[address] [address] * eGFR (02/28/2025 12:03 PM CDT) Pathologist [facility] eGFR 70 >=60 mL/min/1. 73 m2 Comment: [...] was last reviewed 2021. Testing performed by: [address] [address] Blood 02/28/2025 12:0 3 PM CDT 02/28/2025 12:05 PM CDT Bianca Hunter MD LAB BLOOD ORDERABLES Final Result [facility] [address] [facility] Department [place] [address] * (ABNORMAL) Differential, auto (02/28/2025 12:03 PM CDT) Neutrophil abs 0.91(L) 1.50 - 6.50 K/cumm Comment:Testing performed by : [address] [address] Imm gran abs 0.06 0.00 - 0.10 K/cumm [facility] Comment:Testing performed by : [address] [address] Lymphocyte abs 0.33(L) 0.80 - 3.30 K/cumm [facility] Comment:Testing performed by : [address] [address] Monocyte abs 0.41 0.20 - 0.80 K/cumm [facility] Comment:Testing performed by : [address] [address] Eosinophil abs 0.04 0.00 - 0.50 K/cumm [facility] Comment:Testing performed by : [address] [address] Basophil abs 0.02 0.00 - 0.10 K/cumm [facility] Comment:Testing performed by : [address] [address] Neutrophil pct 51.4 % [facility] Comment: Differential consistent with previous result. Interpretive Data Percent cell count reference ranges are not reported, since discordance with absolute values may lead to misinterpretation of CBC data. Current Interpretive Data was last revised on 2018. Testing performed by: [address] [address] Imm gran pct 3.4 % [facility] Comment: Interpretive Data Percent cell count reference ranges are not reported, since discordance with absolute values may lead to misinterpretation of CBC data. Current Interpretive Data was last revised on 2018. Testing performed by: [address] [address] Lymphocyte pct 18.6 % [facility] Comment: Interpretive Data Percent cell count reference ranges are not reported, since discordance with absolute values may lead to misinterpretation of CBC data. Current Interpretive Data was last revised on 2018. Testing performed by: [address] [address] Monocyte pct 23.2 % [facility] Comment: Interpretive Data Percent cell count reference ranges are not reported, since discordance with absolute values may lead to misinterpretation of CBC data. Current Interpretive Data was last revised on 2018. Testing performed by: [address] [address] Eosinophil pct 2.3 % [facility] Comment: Interpretive Data Percent cell count reference ranges are not reported, since discordance with absolute values may lead to misinterpretation of CBC data. Current Interpretive Data was last revised on 2018. Testing performed by: [address] [address] Basophil pct 1.1 % [facility] Comment: Interpretive Data Percent cell count reference ranges are not reported, since discordance with absolute values may lead to misinterpretation of CBC data. Current Interpretive Data was last revised on 2018. Testing performed by: [address] [address] Blood 02/28/2025 12:0 3 PM CDT 02/28/2025 12:05 PM CDT us Bianca Hunter MD LAB BLOOD ORDERABLES Final Result [facility] [address] [facility] Department [place] [address] * (ABNORMAL) Iron profile w/ IBC (02/28/2025 12:03 PM CDT) [facility] Iron 56 50 - 150 mcg/dL Comment:Testing performed by : [address] [address] TIBC 164(L) 250 - 400 mcg/dL [facility] Comment:Testing performed by : [address] [address] Transferrin saturation 34 20 - 50 % [facility] Comment:Testing performed by : [address] [address] Blood 02/28/2025 12:0 3 PM CDT 02/28/2025 1:32 PM CDT us Nena Cano PHARMACEUTICAL SALES REPRESENTATIVE LAB BLOOD ORDERABLES Final Result Performing Organization Address City/State/[facility] Co de Phone Number [facility] Department [place] [address] * (ABNORMAL) CBC with auto differential (02/28/2025 12:03 PM CDT) [facility] WBC 1.77(L) 3.80 - 9.90 K/cumm Comment:Testing performed by : [address] [address] Hgb 9.3(L) 13.0 - 17.5 g/dL [facility] Comment:Testing performed by : [address] [address] Hct 28.9(L) 38.9 - 50.3 % [facility] Comment:Testing performed by : [address] [address] Plt 168 150 - 400 K/cumm [facility] Comment:Testing performed by : [address] [address] MPV 9.5 9.1 - 12.3 fL [facility] Comment:Testing performed by : [address] [address] RBC 3.22(L) 4.30 - 5.80 M/cumm [facility] Comment:Testing performed by : [address] [address] MCV 89.8 81.3 - 96.4 fL [facility] Comment:Testing performed by : [address] [address] MCH 28.9 27.1 - 33.3 pg [facility] Comment:Testing performed by : [address] [address] MCHC 32.2(L) 32.3 - 35.7 g/dL [facility] Comment:Testing performed by : [address] [address] RDW CV 18.7(H) 11.1 - 14.9 % [facility] Comment:Testing performed by : [address] [address] RDW SD 58.7(H) 35.7 - 48.1 fL [facility] Comment:Testing performed by : [address] [address] NRBC abs 0.00 0.00 - 0.01 K/cumm [facility] Comment:Testing performed by : [address] [address] ANC Prelim 0.91(L) 1.50 - 6.50 K/cumm [facility] Comment: Interpretive Data The rapid ANC is a preliminary automated count and may vary from the final ANC (Neut Abs) reported in the WBC differential that follows. Current interpretive data was last revised 2025. Testing performed by: [address] [address] Blood 02/28/2025 12:0 3 PM CDT 02/28/2025 12:05 PM CDT us Bianca Hunter MD LAB BLOOD ORDERABLES Final Result [facility] [address] [facility] Department of Laboratories [place], [place] [id number] * (ABNORMAL) Reticulocyte Count (02/28/2025 12:03 PM CDT) Pathologist [facility] Retics, absolute 86 20 - 87 K/cumm Comment:Testing performed by : [address] [address] Retics 2.7 0.4 - 2.9 % [facility] Comment:Testing performed by : [address] [address] Reticulocyte Hgb 30.4(L) 30.5 - 38.0 pg [facility] Comment:Testing performed by : [address] [address] Blood 02/28/2025 12:0 3 PM CDT 02/28/2025 12:05 PM CDT Nena Cano PHARMACEUTICAL SALES REPRESENTATIVE LAB BLOOD ORDERABLES Final Result Performing Organization Address [facility] Co de Phone Number DAYANA[address] [employer] [place] [address] * Ferritin (02/28/2025 12:03 PM CDT) [facility] Ferritin 208 30 - 400 ng/mL Comment:Testing performed by : [address] [address] Blood 02/28/2025 12:0 3 PM CDT 02/28/2025 1:32 PM CDT Nena Cano LAB BLOOD ORDERABLES Final Result [address] [place] [address] * (ABNORMAL) Comprehensive metabolic panel (02/28/2025 12:03 PM CDT) [facility] Sodium 138 135 - 145 mmol/L Comment:Testing performed by : [address] [address] Potassium, pl 3.6 3.3 - 4.9 mmol/L [facility] Comment:Testing performed by : [address] [address] Chloride 106 97 - 110 mmol/L [facility] Comment:Testing performed by : [address] [address] CO2 22 22 - 32 mmol/L [facility] Comment:Testing performed by : [address] [address] Anion gap 10 2 - 15 mmol/L [facility] Comment:Testing performed by : [address] [address] BUN 12 6 - 25 mg/dL [facility] Comment:Testing performed by : [address], [place]., [address] Creatinine 1.10 0.80 - 1.30 mg/dL [facility] Comment:Testing performed by : [address] [address] Glucose 91 70 - 199 mg/dL [facility] [...] was last revised 2022. Testing performed by: [address] [address] Calcium 8.7 8.5 - 10.3 mg/dL [facility] Comment:Testing performed by : [address] [address] Bilirubin, total 0.4 0.1 - 1.2 mg/dL [facility] Comment:Testing performed by : [address] [address] Protein, pl 5.6(L) 6.5 - 8.5 g/dL [facility] Comment:Testing performed by : [address] [address] Albumin 3.2(L) 3.5 - 5.0 g/dL [facility] Comment:Testing performed by : [address] [address] Alk phos 64 40 - 130 Units/L [facility] Comment:Testing performed by : [address] [address] ALT 14 7 - 55 Units/L [facility] Comment:Testing performed by : [address] [address] AST 19 10 - 50 Units/L [facility] Comment:Testing performed by : [address], [address] Blood 02/28/2025 12:0 3 PM CDT 02/28/2025 12:05 PM CDT us Bianca Hunter MD LAB BLOOD ORDERABLES Final Result Performing Organization Address City/[facility]/ZIP Co de Phone Number [facility] [address] [facility] Department [place] [address] * RAD ONC ARIA SESSION SUMMARY (02/27/2025 [...] ORD ERABLES Final Result Performing Organization Address City/[facility]/ZIP Co de Phone Number ARIA * (ABNORMAL) Protime-INR (02/24/2025 2:55 PM CDT) PT 52.2(H) 12.0 - 14.6 sec Comment: Ref Range High Testing performed by: [facility], [address] [place] [address]., [address] INR 5.9(C) 0.9 - 1.2 [facility] Comment: Ref Range High Critical value. Results called to and read back by: Critical Result called to and read back by Ceci Antony NP for [facility], DATE: 2025-02-24 18:09:13 BY: Adrianna Mascorro MLS [email or web address] Interpretive data Oral anticoagulant therapeutic ranges: Venous thromboembolism prophylaxis or treatment: 2.0-3.0 CARDIOLOGY Standard range: 2.0-3.0 High-intensity range: 2.5-3.5 Refer to indication-specific guidelines for appropriate target ranges for prosthetic heart valve replacement. Current interpretive data was last revised on 2019. Testing performed by: [address] [address] Blood 02/24/2025 2:55 PM CDT 02/24/2025 4:04 PM CDT us Jas Alcala MD LAB BLOOD ORDERABLES Final R esult Performing Organization Address City/State/ZIP Co mn Phone Number [facility] [address] [facility] Department [place] [address] * RAD ONC ARIA SESSION [...] DION * RAD ONC ARIA SESSION SUMMARY (02/23/2025 [...] ORD ERABLES Final Result Performing Organization Address City/State/[facility] Co de Phone Number DION * eGFR (02/23/2025 9:31 AM CDT) eGFR [...] reviewed 2021. Testing performed by: [facility], [address] [place] [address]., [address] Blood 02/23/2025 9:31 AM CDT 02/23/2025 9:46 AM CDT Bianca Hunter MD LAB BLOOD ORDERABLES Final Result [facility] [address] [facility] Department [place] [address] * (ABNORMAL) Differential, auto (02/23/2025 9:31 AM CDT) Neutrophil abs 0.19(C) 1.50 - 6.50 K/cumm Comment: This result has been called to Meme Dean RN Epic Secure Chat by [id number] on 02/23/2025 09:58:21, and has been read back. Testing performed by: [address] [address] Imm gran abs 0.01 0.00 - 0.10 K/cumm [facility] Comment:Testing performed by : [address] [address] Lymphocyte abs 0.20(L) 0.80 - 3.30 K/cumm [facility] Comment:Testing performed by : [address] [address] Monocyte abs 0.40 0.20 - 0.80 K/cumm [facility] Comment:Testing performed by : [address] [address] Eosinophil abs 0.03 0.00 - 0.50 K/cumm [facility] Comment:Testing performed by : [address] [address] Basophil abs 0.01 0.00 - 0.10 K/cumm [facility] Comment:Testing performed by : [address] [address] Neutrophil pct 22.6 % [facility] Comment: Interpretive Data Percent cell count reference ranges are not reported, since discordance with absolute values may lead to misinterpretation of CBC data. Current Interpretive Data was last revised on 2018. Testing performed by: [address] [address] Imm gran pct 1.2 % [facility] Comment: Interpretive Data Percent cell count reference ranges are not reported, since discordance with absolute values may lead to misinterpretation of CBC data. Current Interpretive Data was last revised on 2018. Testing performed by: [address] [address] Lymphocyte pct 23.8 % [facility] Comment: Interpretive Data Percent cell count reference ranges are not reported, since discordance with absolute values may lead to misinterpretation of CBC data. Current Interpretive Data was last revised on 2018. Testing performed by: [address] [address] Monocyte pct 47.6 % [facility] Comment: Interpretive Data Percent cell count reference ranges are not reported, since discordance with absolute values may lead to misinterpretation of CBC data. Current Interpretive Data was last revised on 2018. Testing performed by: [address] [address] Eosinophil pct 3.6 % [facility] Comment: Interpretive Data Percent cell count reference ranges are not reported, since discordance with absolute values may lead to misinterpretation of CBC data. Current Interpretive Data was last revised on 2018. Testing performed by: [address] [address] Basophil pct 1.2 % [facility] Comment: Interpretive Data Percent cell count reference ranges are not reported, since discordance with absolute values may lead to misinterpretation of CBC data. Current Interpretive Data was last revised on 2018. Testing performed by: [address] [address] Blood 02/23/2025 9:31 AM CDT 02/23/2025 9:46 AM CDT Bianca Hunter MD LAB BLOOD ORDERABLES Final Result [facility] [address] [facility] Department [place] [address] * (ABNORMAL) CBC with auto differential (02/23/2025 9:31 AM CDT) WBC 0.84(C) 3.80 - 9.90 K/cumm Comment: This result has been called to Meme Dean RN Epic Secure Chat by [id number] on 02/23/2025 09:58:21, and has been read back. Testing performed by: [address] [address] Hgb 9.0(L) 13.0 - 17.5 g/dL [facility] Comment:Testing performed by : [address], [address] Hct 28.2(L) 38.9 - 50.3 % [facility] Comment:Testing performed by : [address] [address] Plt 164 150 - 400 K/cumm [facility] Comment:Testing performed by : [address] [address] MPV 9.3 9.1 - 12.3 fL ISAAC Comment:Testing performed by : [address], [address] RBC 3.14(L) 4.30 - 5.80 M/cumm ISAAC Comment:Testing performed by : [address], [address] MCV 89.8 81.3 - 96.4 fL ISAAC Comment:Testing performed by : [address] [address] MCH 28.7 27.1 - 33.3 pg CERADAM Comment:Testing performed by : [address], [address] MCHC 31.9(L) 32.3 - 35.7 g/dL ISAAC Comment:Testing performed by : [address], [address] RDW CV 18.1(H) 11.1 - 14.9 % ISAAC Comment:Testing performed by : [address], [address] RDW SD 57.3(H) 35.7 - 48.1 fL ISAAC Comment:Testing performed by : [address] [address] NRBC abs 0.00 0.00 - 0.01 K/cumm ISAAC Comment:Testing performed by : [address] [address] ANC Prelim 0.19(L) 1.50 - 6.50 K/cumm ISAAC Comment: Interpretive Data The rapid ANC is a preliminary automated count and may vary from the final ANC (Neut Abs) reported in the WBC differential that follows. Current interpretive data was last revised 2025. Testing performed by: [address] [address] Morphologic Screen Results confirmed by manual morphology review. ISAAC Comment:Testing performed by : [address] [address] Blood 02/23/2025 9:31 AM CDT 02/23/2025 9:46 AM CDT Bianca Hunter MD LAB BLOOD ORDERABLES Final Result [facility] [address] [facility] Department [place] [address] * (ABNORMAL) Protime-INR (02/23/2025 9:31 AM CDT) PT 49.1(H) 12.0 - 14.6 sec Comment: Ref Range High Testing performed by: [address] [address] INR 5.5(C) 0.9 - 1.2 ISAAC Comment: Ref Range High Critical value. Results called to and read back by: Critical Result called to and read back by Meme Dean RN Epic Secure Chat, DATE: 2025-02-23 11:55:31 BY: [id number] Interpretive data Oral anticoagulant therapeutic ranges: Venous thromboembolism prophylaxis or treatment: 2.0-3.0 CARDIOLOGY Standard range: 2.0-3.0 High-intensity range: 2.5-3.5 Refer to indication-specific guidelines for appropriate target ranges for prosthetic heart valve replacement. Current interpretive data was last revised on 2019. Testing performed by: [address] [address] Blood 02/23/2025 9:31 AM CDT 02/23/2025 11:32 AM CDT Bianca Hunter MD LAB BLOOD ORDERABLES Final Result [facility] [address] [facility] Department [place] [address] * (ABNORMAL) Comprehensive metabolic panel (02/23/2025 9:31 AM CDT) Sodium 142 135 - 145 mmol/L Comment:Testing performed by : [address] [address] Potassium, pl 3.7 3.3 - 4.9 mmol/L [facility] Comment:Testing performed by : [address] [address] Chloride 109 97 - 110 mmol/L IS[facility]AC Comment:Testing performed by : [address] [address] CO2 22 22 - 32 mmol/L [facility] Comment:Testing performed by : [address] [address] Anion gap 11 2 - 15 mmol/L [facility]AC Comment:Testing performed by : [address] [address] BUN 15 6 - 25 mg/dL IS[facility]AC Comment:Testing performed by : [address] [address] Creatinine 1.20 0.80 - 1.30 mg/dL ISACA Comment:Testing performed by : [address] [address] Glucose 102 70 - 199 mg/dL ISAAC [...] was last revised 2022. Testing performed by: [facility], [address] [place] [address]., [address] Calcium 8.6 8.5 - 10.3 mg/dL ISAAC Comment:Testing performed by : [address] [address] Bilirubin, total 0.4 0.1 - 1.2 mg/dL [facility] Comment:Testing performed by : [address] [address] Protein, pl 5.8(L) 6.5 - 8.5 g/dL [facility]AC Comment:Testing performed by : [address] [address] Albumin 3.2(L) 3.5 - 5.0 g/dL [facility]AC Comment:Testing performed by : [address] [address] Alk phos 58 40 - 130 Units/L [facility]AC Comment:Testing performed by : [address] [address] ALT 11 7 - 55 Units/L [facility]AC Comment:Testing performed by : [address] [address] AST 16 10 - 50 Units/L ISAAC Comment:Testing performed by : [address] [address] Blood 02/23/2025 9:31 AM CDT 02/23/2025 9:46 AM CDT us Bianca Hunter MD LAB BLOOD ORDERABLES Final Result [facility] [address] [facility] Department of Laboratories [place], [place] [id number] * RAD ONC ARIA SESSION SUMMARY (02/22/2025 [...] ORD ERABLES Final Result Performing Organization Address [facility] Co de Phone Number ARIA * RAD [...] Miscellaneous RADIATION ONCOLOGY ORD ERABLES Final Result ARIJovana * RAD ONC ARIA SESSION SUMMARY (02/17/2025 [...] Miscellaneous RADIATION ONCOLOGY ORD ERABLES Final Result ARIJovana * Transfuse RBC (02/16/2025 2:15 PM CDT) [...] ORD ERABLES Final Result Performing Organization Address [facility] Co de Phone Number DION * Prepare RBC: 1 Units (02/15/2025 1:40 PM CDT) Units requested 1 Comment:Testing performed by : [address], [address] Units requested Ready ISAAC Comment:Testing performed by : [address] [address] Unit Number [id number] Product code [id number] [facility]AC Blood Expiration Date [facility] Product Blood Type (for scanning) 6[address] [facility] Product Blood Type APOS [facility] Dispense Status DISPENSED [facility] Blood 02/15/2025 1:40 PM CDT 02/15/2025 1:40 PM CDT us Bianca Hunter MD BLOOD BANK PRODUCT O RDERABLES Final Result Performing Organization Address [facility] Co de Phone Number [facility]AC [address] [facility] Department [place] [address] * Blood smear review (02/15/2025 12:27 PM CDT) RBC morphology Consistent with RBC Indicies Comment:Testing performed by : [address] [address] Platelet estimate Adequate ISAAC Comment:Testing performed by : [address] [address] Blood 02/15/2025 12:2 7 PM CDT 02/15/2025 12:29 PM CDT us Nena Cano NP LAB BLOOD ORDERABLES Final Result Performing Organization Address City/[facility] Co de Phone Number ISAAC [facility] Department [place] [address] * (ABNORMAL) eGFR (02/15/2025 12:27 PM CDT) Pathologist [facility] eGFR 52(L) >=60 mL/min/1. 73 m2 Comment: [...] was last reviewed 2021. Testing performed by: [address] [address] Blood 02/15/2025 12:2 7 PM CDT 02/15/2025 12:29 PM CDT Bianca Hunter MD LAB BLOOD ORDERABLES Final Result [facility] [address] [facility] Department [place] [address] * (ABNORMAL) Differential, auto (02/15/2025 12:27 PM CDT) [facility] Neutrophil abs 0.66(L) 1.50 - 6.50 K/cumm Comment:Testing performed by : [address] [address] Imm gran abs 0.13(H) 0.00 - 0.10 K/cumm ISAAC Comment:Testing performed by : [address] [place] [address] Lymphocyte abs 0.03(L) 0.80 - 3.30 K/cumm [facility] Comment:Testing performed by : [address] [address] Monocyte abs 0.21 0.20 - 0.80 K/cumm [facility] Comment:Testing performed by : [address] [address] Eosinophil abs 0.04 0.00 - 0.50 K/cumm [facility] Comment:Testing performed by : [address], [place]., [address] Basophil abs 0.01 0.00 - 0.10 K/cumm [facility] Comment:Testing performed by : [address] [address] Neutrophil pct 61.2 % [facility] Comment: Interpretive Data Percent cell count reference ranges are not reported, since discordance with absolute values may lead to misinterpretation of CBC data. Current Interpretive Data was last revised on 2018. Testing performed by: [address] [address] Imm gran pct 12.0 % [facility] Comment: Interpretive Data Percent cell count reference ranges are not reported, since discordance with absolute values may lead to misinterpretation of CBC data. Current Interpretive Data was last revised on 2018. Testing performed by: [address] [address] Lymphocyte pct 2.8 % [facility] Comment: Interpretive Data Percent cell count reference ranges are not reported, since discordance with absolute values may lead to misinterpretation of CBC data. Current Interpretive Data was last revised on 2018. Testing performed by: [address] [address] Monocyte pct 19.4 % CERNER Comment: Interpretive Data Percent cell count reference ranges are not reported, since discordance with absolute values may lead to misinterpretation of CBC data. Current Interpretive Data was last revised on 2018. Testing performed by: [address] [address] Eosinophil pct 3.7 % CERNER Comment: Interpretive Data Percent cell count reference ranges are not reported, since discordance with absolute values may lead to misinterpretation of CBC data. Current Interpretive Data was last revised on 2018. Testing performed by: [address] [address] Basophil pct 0.9 % [facility] SERNA Comment: Interpretive Data Percent cell count reference ranges are not reported, since discordance with absolute values may lead to misinterpretation of CBC data. Current Interpretive Data was last revised on 2018. Testing performed by: [address] [address] Blood 02/15/2025 12:2 7 PM CDT 02/15/2025 12:29 PM CDT Nena Cano LAB BLOOD ORDERABLES Final Result Performing Organization Address [facility] Co de Phone Number [address] [employer] [place] [address] * (ABNORMAL) Iron profile w/ IBC (02/15/2025 12:27 PM CDT) Iron 43(L) 50 - 150 mcg/dL Comment:Testing performed by : [address] [address] TIBC 208(L) 250 - 400 mcg/dL [facility]AC Comment:Testing performed by : [address] [address] Transferrin saturation 21 20 - 50 % [facility]AAC Comment:Testing performed by : [address] [address] Blood 02/15/2025 12:2 7 PM CDT 02/15/2025 1:39 PM CDT Nena Cano PHARMACEUTICAL SALES REPRESENTATIVE LAB BLOOD ORDERABLES Final Result Performing Organization Address [facility] Co de Phone Number [address] [employer] [place] [address] * (ABNORMAL) CBC with auto differential (02/15/2025 12:27 PM CDT) [facility] WBC 1.08(L) 3.80 - 9.90 K/cumm Comment:Testing performed by : [address] [address] Hgb 8.8(L) 13.0 - 17.5 g/dL [facility] Comment:Testing performed by : [address], [address] Hct 27.1(L) 38.9 - 50.3 % [facility] Comment:Testing performed by : [address], [address] Plt 136(L) 150 - 400 K/cumm [facility] Comment:Testing performed by : [address], [address] MPV 9.2 9.1 - 12.3 fL [facility] Comment:Testing performed by : [address], [address] RBC 3.00(L) 4.30 - 5.80 M/cumm [facility] Comment:Testing performed by : [address], [address] MCV 90.3 81.3 - 96.4 fL CERADAM Comment:Testing performed by : [address], [address] MCH 29.3 27.1 - 33.3 pg CERADAM Comment:Testing performed by : [address], [address] MCHC 32.5 32.3 - 35.7 g/dL [facility] Comment:Testing performed by : [address], [address] RDW CV 17.4(H) 11.1 - 14.9 % [facility] Comment:Testing performed by : [address], [address] RDW SD 54.7(H) 35.7 - 48.1 fL SIAAC Comment:Testing performed by : [address], [address] NRBC abs 0.00 0.00 - 0.01 K/cumm [facility] Comment:Testing performed by : [address] [address] ANC Prelim 0.66(L) 1.50 - 6.50 K/cumm [facility]AAC Comment: Interpretive Data The rapid ANC is a preliminary automated count and may vary from the final ANC (Neut Abs) reported in the WBC differential that follows. Current interpretive data was last revised 2025. Testing performed by: [address] [address] Blood 02/15/2025 12:2 7 PM CDT 02/15/2025 12:29 PM CDT Nena Cano LAB BLOOD ORDERABLES Final Result Performing Organization Address [facility] Co de Phone Number [address] [employer] [place] [address] * ABO/Rh (02/15/2025 12:27 PM CDT) [facility] ABO/Rh A Positive Comment:Testing performed by : [address] [address] Blood 02/15/2025 12:2 7 PM CDT 02/15/2025 1:39 PM CDT Narrative ISAAC - 02/15/2025 2:02 PM CDT Has the patient had Daratumumab or Isatuximab in the past 6 months?->Unknown Nena Cano LAB BLOOD BANK TEST ORDERAB LES Final Result Performing Organization Address [facility] Co de Phone Number [address] [phone] * (ABNORMAL) Reticulocyte Count (02/15/2025 12:27 PM CDT) [facility] Retics, absolute 17(L) 20 - 87 K/cumm Comment:Testing performed by : [address] [address] Retics 0.6 0.4 - 2.9 % [facility] Comment:Testing performed by : [address] [address] Reticulocyte Hgb 36.9 30.5 - 38.0 pg [facility] Comment:Testing performed by : [address] [address] Blood 02/15/2025 12:2 7 PM CDT 02/15/2025 12:29 PM CDT Nena Cano NP LAB BLOOD ORDERABLES Final Result Performing Organization Address City/[facility]/ZIP Co de Phone Number [address] [employer] [place] [address] * Crossmatch (02/15/2025 12:27 PM CDT) Crossmatch Compatible [facility] Unit number for crossmatch [id number] [facility] Blood 02/15/2025 12:2 7 PM CDT 02/15/2025 1:39 PM CDT Bianca Hunter MD LAB BLOOD BANK TEST ORDERABLES Final Result Performing Organization Address City/[facility] Co de Phone Number [address] [address] * Antibody screen (02/15/2025 12:27 PM CDT) Divina, indirect, Gel Interpretation Negative ABSC Comment:Testing performed by : [address] [address] Blood 02/15/2025 12:2 7 PM CDT 02/15/2025 1:39 PM CDT Narrative [facility] - 02/15/2025 2:15 PM CDT Has the patient had Daratumumab or Isatuximab in the past 6 months?->Unknown Nena Mamta Golec PHARMACEUTICAL SALES REPRESENTATIVE LAB BLOOD BANK TEST ORDERAB LES Final Result [facility] [address] [place] [address] * Ferritin (02/15/2025 12:27 PM CDT) [facility] Ferritin 255 30 - 400 ng/mL Comment:Testing performed by : [address] [address] Blood 02/15/2025 12:2 7 PM CDT 02/15/2025 1:39 PM CDT Nena Cano PHARMACEUTICAL SALES REPRESENTATIVE LAB BLOOD ORDERABLES Final Result Performing Organization Address City/[facility] Co de Phone Number ISAAC [facility] [place] [address] * (ABNORMAL) Comprehensive metabolic panel (02/15/2025 12:27 PM CDT) [facility] Sodium 137 135 - 145 mmol/L Comment:Testing performed by : [address] [address] Potassium, pl 4.2 3.3 - 4.9 mmol/L [facility] Comment:Testing performed by : [address] [address] Chloride 106 97 - 110 mmol/L [facility] Comment:Testing performed by : [address] [address] CO2 22 22 - 32 mmol/L [facility] Comment:Testing performed by : [address] [address] Anion gap 9 2 - 15 mmol/L [facility] Comment:Testing performed by : [address] [address] BUN 13 6 - 25 mg/dL [facility] Comment:Testing performed by : [address] [address] Creatinine 1.40(H) 0.80 - 1.30 mg/dL [facility] Comment:Testing performed by : [address] [address] Glucose 108 70 - 199 mg/dL [facility] [...] was last revised 2022. Testing performed by: [address] [address] Calcium 8.8 8.5 - 10.3 mg/dL [facility] Comment:Testing performed by : [address] [address] Bilirubin, total 0.3 0.1 - 1.2 mg/dL [facility] Comment:Testing performed by : [address] [address] Protein, pl 6.1(L) 6.5 - 8.5 g/dL [facility] Comment:Testing performed by : [address] [address] Albumin 4.0 3.5 - 5.0 g/dL [facility] Comment:Testing performed by : [address] [address] Alk phos 61 40 - 130 Units/L [facility] Comment:Testing performed by : [address] [address] ALT 14 7 - 55 Units/L [facility] Comment:Testing performed by : [address] [address] AST 20 10 - 50 Units/L [facility] Comment:Testing performed by : [address] [address] Blood 02/15/2025 12:2 7 PM CDT 02/15/2025 12:29 PM CDT us Salman Denis Dale MD LAB BLOOD ORDERABLES Final Result [facility] Department [place] [address] * RAD ONC ARIA SESSION SUMMARY (02/15/2025 [...] (02/14/2025 11:28 AM CDT) Course Name [id number] 25 ARIA [...] ORD ERABLES Final Result Performing Organization Address City/[facility]/ZIP Co de Phone Number DION * RAD ONC ARIA SESSION SUMMARY [...] ONCOLOGY ORD ERABLES Final Result ARIA * Blood smear review (02/09/2025 11:50 AM CDT) RBC morphology Consistent with RBC Indicies Comment:Testing performed by : [address] [address] Platelet estimate Adequate [facility] SERNA Comment:Testing performed by : [address] [address] Blood 02/09/2025 11:5 0 AM CDT 02/09/2025 11:51 AM CDT Bianca Hunter MD LAB BLOOD ORDERABLES Final Result Performing Organization Address [facility] Co de Phone Number ISAAC [facility] [place] [address] * (ABNORMAL) eGFR (02/09/2025 11:50 AM CDT) [...] reviewed 2021. Testing performed by: [facility], [address] [place] [address]., [address] Blood 02/09/2025 11:5 0 AM CDT 02/09/2025 11:51 AM CDT Bianca Hunter MD LAB BLOOD ORDERABLES Final Result Performing Organization Address City/[facility] Co de Phone Number IS[facility]AC [address] [facility] [place] [address] * (ABNORMAL) Differential, auto (02/09/2025 11:50 AM CDT) Neutrophil abs 0.92(L) 1.50 - 6.50 K/cumm Comment:Testing performed by : [address], [place]., [address] Imm gran abs 0.07 0.00 - 0.10 K/cumm [facility] Comment:Testing performed by : [address], [place]., [address] Lymphocyte abs 0.06(L) 0.80 - 3.30 K/cumm [facility] Comment:Testing performed by : [address], [place]., [address] Monocyte abs 0.38 0.20 - 0.80 K/cumm [facility] Comment:Testing performed by : [address], [place]., [address] Eosinophil abs 0.15 0.00 - 0.50 K/cumm [facility] Comment:Testing performed by : [address], [place]., [address] Basophil abs 0.04 0.00 - 0.10 K/cumm [facility] Comment:Testing performed by : [address] [address] Neutrophil pct 56.7 % [facility] Comment: Interpretive Data Percent cell count reference ranges are not reported, since discordance with absolute values may lead to misinterpretation of CBC data. Current Interpretive Data was last revised on 2018. Testing performed by: [address] [address] Imm gran pct 4.3 % [facility] Comment: Interpretive Data Percent cell count reference ranges are not reported, since discordance with absolute values may lead to misinterpretation of CBC data. Current Interpretive Data was last revised on 2018. Testing performed by: [address] [address] Lymphocyte pct 3.7 % [facility] Comment: Interpretive Data Percent cell count reference ranges are not reported, since discordance with absolute values may lead to misinterpretation of CBC data. Current Interpretive Data was last revised on 2018. Testing performed by: [address] [address] Monocyte pct 23.5 % C[facility]ER Comment: Interpretive Data Percent cell count reference ranges are not reported, since discordance with absolute values may lead to misinterpretation of CBC data. Current Interpretive Data was last revised on 2018. Testing performed by: [address] [address] Eosinophil pct 9.3 % [facility] Comment: Interpretive Data Percent cell count reference ranges are not reported, since discordance with absolute values may lead to misinterpretation of CBC data. Current Interpretive Data was last revised on 2018. Testing performed by: [address] [address] Basophil pct 2.5 % [facility] Comment: Interpretive Data Percent cell count reference ranges are not reported, since discordance with absolute values may lead to misinterpretation of CBC data. Current Interpretive Data was last revised on 2018. Testing performed by: [address] [address] Blood 02/09/2025 11:5 0 AM CDT 02/09/2025 11:51 AM CDT us Bianca Hunter MD LAB BLOOD ORDERABLES Final Result [facility] [address] [facility] Department [place] [address] * (ABNORMAL) Iron profile w/ IBC (02/09/2025 11:50 AM CDT) Iron 50 50 - 150 mcg/dL Comment:Testing performed by : [address] [address] TIBC 235(L) 250 - 400 mcg/dL [facility] Comment:Testing performed by : [address] [address] Transferrin saturation 21 20 - 50 % [facility] Comment:Testing performed by : [address] [address] Blood 02/09/2025 11:5 0 AM CDT 02/09/2025 3:58 PM CDT us Nena Mamta Golec PHARMACEUTICAL SALES REPRESENTATIVE LAB BLOOD ORDERABLES Final Result [facility] [address] [facility] Department [place] [address] * (ABNORMAL) CBC with auto differential (02/09/2025 11:50 AM CDT) [facility] Signature WBC 1.62(L) 3.80 - 9.90 K/cumm Comment:Testing performed by : [address] [address] Hgb 9.2(L) 13.0 - 17.5 g/dL [facility] Comment:Testing performed by : [address] [address] Hct 28.9(L) 38.9 - 50.3 % [facility] Comment:Testing performed by : [address] [address] Plt 163 150 - 400 K/cumm [facility] Comment:Testing performed by : [address] [address] MPV 9.1 9.1 - 12.3 fL [facility] Comment:Testing performed by : [address] [address] RBC 3.18(L) 4.30 - 5.80 M/cumm [facility] Comment:Testing performed by : [address] [address] MCV 90.9 81.3 - 96.4 fL [facility] Comment:Testing performed by : [address] [address] MCH 28.9 27.1 - 33.3 pg [facility] Comment:Testing performed by : [address] [address] MCHC 31.8(L) 32.3 - 35.7 g/dL [facility] Comment:Testing performed by : [address] [address] RDW CV 17.1(H) 11.1 - 14.9 % [facility] Comment:Testing performed by : [address] [address] RDW SD 54.1(H) 35.7 - 48.1 fL [facility] Comment:Testing performed by : [address] [address] NRBC abs 0.00 0.00 - 0.01 K/cumm [facility] Comment:Testing performed by : [address] [address] ANC Prelim 0.92(L) 1.50 - 6.50 K/cumm [facility] Comment: Interpretive Data The rapid ANC is a preliminary automated count and may vary from the final ANC (Neut Abs) reported in the WBC differential that follows. Current interpretive data was last revised 2025. Testing performed by: [address] [address] Blood 02/09/2025 11:5 0 AM CDT 02/09/2025 11:51 AM CDT Bianca Hunter MD LAB BLOOD ORDERABLES Final Result Performing Organization Address City/[facility]/ZIP Co de Phone Number [address] [employer] [place] [address] * Ferritin (02/09/2025 11:50 AM CDT) Ferritin 111 30 - 400 ng/mL Comment:Testing performed by : [address] [address] Blood 02/09/2025 11:5 0 AM CDT 02/09/2025 3:58 PM CDT us Nena Cano NP LAB BLOOD ORDERABLES Final Result Performing Organization Address City/[facility]/ZIP Co de Phone Number [address] [employer] [place] [address] * (ABNORMAL) Comprehensive metabolic panel (02/09/2025 11:50 AM CDT) Sodium 136 135 - 145 mmol/L Comment:Testing performed by : [address] [address] Potassium, pl 4.3 3.3 - 4.9 mmol/L [facility] Comment:Testing performed by : [address] [address] Chloride 105 97 - 110 mmol/L [facility] Comment:Testing performed by : [address], [place]., [address] CO2 23 22 - 32 mmol/L [facility] Comment:Testing performed by : [address], [place]., [address] Anion gap 8 2 - 15 mmol/L [facility] Comment:Testing performed by : [address] [address] BUN 8 6 - 25 mg/dL [facility] Comment:Testing performed by : [address], [place]., [address] Creatinine 1.40(H) 0.80 - 1.30 mg/dL [facility] Comment:Testing performed by : [address] [address] Glucose 102 70 - 199 mg/dL [facility] Comment: Interpretive Data Fasting glucose >/= 126 [...] was last revised 2022. Testing performed by: [address] [address] Calcium 9.0 8.5 - 10.3 mg/dL [facility] Comment:Testing performed by : [address] [address] Bilirubin, total 0.2 0.1 - 1.2 mg/dL [facility] Comment:Testing performed by : [address] [address] Protein, pl 6.3(L) 6.5 - 8.5 g/dL [facility] Comment:Testing performed by : [address] [address] Albumin 4.0 3.5 - 5.0 g/dL [facility] Comment:Testing performed by : [address] [address] Alk phos 63 40 - 130 Units/L [facility] Comment:Testing performed by : [address], [address] ALT 12 7 - 55 Units/L [facility] Comment:Testing performed by : [address], [address] AST 17 10 - 50 Units/L [facility] Comment:Testing performed by : [address], [address] Blood 02/09/2025 11:5 0 AM CDT 02/09/2025 11:51 AM CDT us Bianca Hunter MD LAB BLOOD ORDERABLES Final Result [facility] [address] [facility] Department [place] [address] * RAD ONC ARIA SESSION SUMMARY (02/09/2025 [...] BRENDAA * RAD ONC ARIA SESSION SUMMARY (02/08/2025 [...] ORD ERABLES Final Result Performing Organization Address [facility] Co de Phone Number ARIA * RAD [...] ORD ERABLES Final Result Performing Organization Address City/[facility]/ZIP Co de Phone Number ARIA * RAD [...] ORD ERABLES Final Result Performing Organization Address City/[facility]/ZIP Co de Phone Number DION * RAD ONC ARIA SESSION SUMMARY [...] ORD ERABLES Final Result Performing Organization Address [facility] de Phone Number DION * (ABNORMAL) eGFR (02/02/2025 11:51 AM [...] reviewed 2021. Testing performed by: [facility], [address] [place] [address]., [address] Blood 02/02/2025 11:5 1 AM CDT 02/02/2025 11:52 AM CDT us Bianca Hunter MD LAB BLOOD ORDERABLES Final Result [facility] Department [place] [address] * (ABNORMAL) Differential, auto (02/02/2025 11:51 AM CDT) Neutrophil abs 1.48(L) 1.50 - 6.50 K/cumm Comment:Testing performed by : [address] [address] Imm gran abs 0.03 0.00 - 0.10 K/cumm [facility] Comment:Testing performed by : [address] [address] Lymphocyte abs 0.13(L) 0.80 - 3.30 K/cumm [facility] Comment:Testing performed by : [address] [address] Monocyte abs 0.28 0.20 - 0.80 K/cumm [facility] Comment:Testing performed by : [address] [address] Eosinophil abs 0.18 0.00 - 0.50 K/cumm [facility] Comment:Testing performed by : [address] [address] Basophil abs 0.02 0.00 - 0.10 K/cumm [facility] Comment:Testing performed by : [address] [address] Neutrophil pct 69.9 % [facility] Comment: Interpretive Data Percent cell count reference ranges are not reported, since discordance with absolute values may lead to misinterpretation of CBC data. Current Interpretive Data was last revised on 2018. Testing performed by: [address] [address] Imm gran pct 1.4 % [facility] Comment: Interpretive Data Percent cell count reference ranges are not reported, since discordance with absolute values may lead to misinterpretation of CBC data. Current Interpretive Data was last revised on 2018. Testing performed by: [address] [address] Lymphocyte pct 6.1 % [facility] Comment: Interpretive Data Percent cell count reference ranges are not reported, since discordance with absolute values may lead to misinterpretation of CBC data. Current Interpretive Data was last revised on 2018. Testing performed by: [address] [address] Monocyte pct 13.2 % [facility] Comment: Interpretive Data Percent cell count reference ranges are not reported, since discordance with absolute values may lead to misinterpretation of CBC data. Current Interpretive Data was last revised on 2018. Testing performed by: [address] [address] Eosinophil pct 8.5 % [facility] Comment: Interpretive Data Percent cell count reference ranges are not reported, since discordance with absolute values may lead to misinterpretation of CBC data. Current Interpretive Data was last revised on 2018. Testing performed by: [address] [address] Basophil pct 0.9 % [facility] Comment: Interpretive Data Percent cell count reference ranges are not reported, since discordance with absolute values may lead to misinterpretation of CBC data. Current Interpretive Data was last revised on 2018. Testing performed by: [address] [address] Blood 02/02/2025 11:5 1 AM CDT 02/02/2025 11:52 AM CDT Bianca Hunter MD LAB BLOOD ORDERABLES Final Result [facility] [address] [facility] Department [place] [address] * (ABNORMAL) CBC with auto differential (02/02/2025 11:51 AM CDT) [facility] Signature WBC 2.12(L) 3.80 - 9.90 K/cumm Comment:Testing performed by : [address] [address] Hgb 8.9(L) 13.0 - 17.5 g/dL [facility] Comment:Testing performed by : [address] [address] Hct 27.9(L) 38.9 - 50.3 % [facility] Comment:Testing performed by : [address] [address] Plt 180 150 - 400 K/cumm [facility] Comment:Testing performed by : [address] [address] MPV 8.7(L) 9.1 - 12.3 fL [facility] Comment:Testing performed by : [address] [address] RBC 3.08(L) 4.30 - 5.80 M/cumm [facility] Comment:Testing performed by : [address] [address] MCV 90.6 81.3 - 96.4 fL [facility] Comment:Testing performed by : [address] [address] MCH 28.9 27.1 - 33.3 pg [facility] Comment:Testing performed by : [address] [address] MCHC 31.9(L) 32.3 - 35.7 g/dL [facility] Comment:Testing performed by : [address] [address] RDW CV 17.3(H) 11.1 - 14.9 % [facility] Comment:Testing performed by : [address] [address] RDW SD 55.3(H) 35.7 - 48.1 fL [facility] Comment:Testing performed by : [address] [address] NRBC abs 0.00 0.00 - 0.01 K/cumm [facility] Comment:Testing performed by : [address] [address] ANC Prelim 1.48(L) 1.50 - 6.50 K/cumm [facility] Comment: Interpretive Data The rapid ANC is a preliminary automated count and may vary from the final ANC (Neut Abs) reported in the WBC differential that follows. Current interpretive data was last revised 2025. Testing performed by: [address] [address] Blood 02/02/2025 11:5 1 AM CDT 02/02/2025 11:52 AM CDT us Bianca Hunter MD LAB BLOOD ORDERABLES Final Result [facility] [address] [facility] Department [place] [address] * (ABNORMAL) Comprehensive metabolic panel (02/02/2025 11:51 AM CDT) Sodium 138 135 - 145 mmol/L Comment:Testing performed by : [address] [address] Potassium, pl 4.4 3.3 - 4.9 mmol/L [facility] Comment:Testing performed by : [address] [address] Chloride 107 97 - 110 mmol/L [facility] Comment:Testing performed by : [address] [address] CO2 22 22 - 32 mmol/L [facility] Comment:Testing performed by : [address] [address] Anion gap 9 2 - 15 mmol/L [facility] Comment:Testing performed by : [address] [address] BUN 11 6 - 25 mg/dL [facility] Comment:Testing performed by : [address] [address] Creatinine 1.30 0.80 - 1.30 mg/dL [facility] Comment:Testing performed by : [address] [address] Glucose 95 70 - 199 mg/dL [facility] [...] was last revised 2022. Testing performed by: [address] [address] Calcium 8.9 8.5 - 10.3 mg/dL [facility] Comment:Testing performed by : [address] [address] Bilirubin, total 0.3 0.1 - 1.2 mg/dL [facility] Comment:Testing performed by : [address] [address] Protein, pl 6.3(L) 6.5 - 8.5 g/dL [facility] Comment:Testing performed by : [address] [address] Albumin 3.9 3.5 - 5.0 g/dL [facility] Comment:Testing performed by : [address] [address] Alk phos 58 40 - 130 Units/L [facility] Comment:Testing performed by : [address] [address] ALT 10 7 - 55 Units/L [facility] Comment:Testing performed by : [address] [address] AST 14 10 - 50 Units/L [facility] Comment:Testing performed by : [facility], [address] [place]., [address] Blood 02/02/2025 11:5 1 AM CDT 02/02/2025 11:52 AM CDT us Bianca Hunter MD LAB BLOOD ORDERABLES Final Result Performing Organization Address City/[facility]/ZIP Co de Phone Number [facility] [address] [facility] Department [place] [address] * RAD ONC ARIA SESSION SUMMARY (02/02/2025 11:33 AM CDT) Course Name C1_Esoph_ ARIA Course [...] ORD ERABLES Final Result Performing Organization Address City/[facility] Co de Phone Number ARI[facility] * Transfuse RBC (02/01/2025 1:59 PM [...] 4,500 ARIA 02/01/2025 11:4 5 AM CDT us Not In File Miscellaneous RADIATION ONCOLOGY ORD ERABLES Final Result Performing Organization Address [facility] Co de Phone Number [facility] * Prepare RBC: 1 Units (02/01/2025 10:48 AM CDT) Units requested 1 Comment:Testing performed by : [address] [address] Units requested Ready [facility] Comment:Testing performed by : [address] [address] Unit Number [id number] Product code [id number] [facility] Blood Expiration Date [id number] [facility] Product Blood Type (for scanning) 6200 [facility] Product Blood Type APOS [facility] Dispense Status DISPENSED [facility] Blood 02/01/2025 10:4 8 AM CDT 02/01/2025 10:48 AM CDT us Bianca Hunter MD BLOOD BANK PRODUCT O RDERABLES Final Result Performing Organization Address [facility] Co de Phone Number [facility] [address] [facility] Department [place] [address] * (ABNORMAL) Iron profile w/ IBC (02/01/2025 9:10 AM CDT) Iron 47(L) 50 - 150 mcg/dL Comment:Testing performed by : [address] [address] TIBC 220(L) 250 - 400 mcg/dL [facility] Comment:Testing performed by : [address] [address] Transferrin saturation 21 20 - 50 % [facility] Comment:Testing performed by : [address] [address] Blood 02/01/2025 9:10 AM CDT 02/01/2025 9:46 AM CDT Nena Cano PHARMACEUTICAL SALES REPRESENTATIVE LAB BLOOD ORDERABLES Final Result Performing Organization Address City/[facility]/ZIP Co de Phone Number [facility] [place] [address] * Reticulocyte Count (02/01/2025 9:10 AM CDT) Pathologist [facility] Retics, absolute 26 20 - 87 K/cumm Comment:Testing performed by : [address] [address] Retics 1.0 0.4 - 2.9 % [facility] Comment:Testing performed by : [address] [address] Reticulocyte Hgb 36.1 30.5 - 38.0 pg [facility] Comment:Testing performed by : [address] [address] Blood 02/01/2025 9:10 AM CDT 02/01/2025 9:11 AM CDT Nena Cano PHARMACEUTICAL SALES REPRESENTATIVE LAB BLOOD ORDERABLES Final Result Performing Organization Address [facility] Co de Phone Number [place] [phone] [facility] [place] [address] * Ferritin (02/01/2025 9:10 AM CDT) [facility] Ferritin 63 30 - 400 ng/mL Comment:Testing performed by : [address] [address] Blood 02/01/2025 9:10 AM CDT 02/01/2025 9:46 AM CDT Nena Cano PHARMACEUTICAL SALES REPRESENTATIVE LAB BLOOD ORDERABLES Final Result [facility] [address] [facility] Department [place] [address] * (ABNORMAL) Differential, auto (02/01/2025 9:02 AM CDT) Neutrophil abs 1.93 1.50 - 6.50 K/cumm Comment:Testing performed by : [address] [address] Imm gran abs 0.02 0.00 - 0.10 K/cumm [facility] Comment:Testing performed by : [address] [address] Lymphocyte abs 0.11(L) 0.80 - 3.30 K/cumm [facility] Comment:Testing performed by : [address] [address] Monocyte abs 0.20 0.20 - 0.80 K/cumm [facility] Comment:Testing performed by : [address] [address] Eosinophil abs 0.19 0.00 - 0.50 K/cumm [facility] Comment:Testing performed by : [address] [address] Basophil abs 0.01 0.00 - 0.10 K/cumm [facility] Comment:Testing performed by : [address] [address] Neutrophil pct 78.5 % [facility] Comment: Interpretive Data Percent cell count reference ranges are not reported, since discordance with absolute values may lead to misinterpretation of CBC data. Current Interpretive Data was last revised on 2018. Testing performed by: [address] [address] Imm gran pct 0.8 % [facility] Comment: Interpretive Data Percent cell count reference ranges are not reported, since discordance with absolute values may lead to misinterpretation of CBC data. Current Interpretive Data was last revised on 2018. Testing performed by: [address] [address] Lymphocyte pct 4.5 % [facility] Comment: Interpretive Data Percent cell count reference ranges are not reported, since discordance with absolute values may lead to misinterpretation of CBC data. Current Interpretive Data was last revised on 2018. Testing performed by: [address] [address] Monocyte pct 8.1 % [facility] Comment: Interpretive Data Percent cell count reference ranges are not reported, since discordance with absolute values may lead to misinterpretation of CBC data. Current Interpretive Data was last revised on 2018. Testing performed by: [address] [address] Eosinophil pct 7.7 % [facility] Comment: Interpretive Data Percent cell count reference ranges are not reported, since discordance with absolute values may lead to misinterpretation of CBC data. Current Interpretive Data was last revised on 2018. Testing performed by: [address] [address] Basophil pct 0.4 % [facility] Comment: Interpretive Data Percent cell count reference ranges are not reported, since discordance with absolute values may lead to misinterpretation of CBC data. Current Interpretive Data was last revised on 2018. Testing performed by: [address] [address] Blood 02/01/2025 9:02 AM CDT 02/01/2025 9:08 AM CDT us Nena Cano PHARMACEUTICAL SALES REPRESENTATIVE LAB BLOOD ORDERABLES Final Result [facility] [address] [facility] Department [place] [address] * (ABNORMAL) CBC with auto differential (02/01/2025 9:02 AM CDT) WBC 2.46(L) 3.80 - 9.90 K/[facility] Comment:Testing performed by : [address] [address] Hgb 7.9(L) 13.0 - 17.5 g/dL [facility] Comment:Testing performed by : [address] [address] Hct 25.5(L) 38.9 - 50.3 % [facility] Comment:Testing performed by : [address] [address] Plt 194 150 - 400 K/cumm [facility] Comment:Testing performed by : [address] [address] MPV 9.0(L) 9.1 - 12.3 fL [facility] Comment:Testing performed by : [address] [address] RBC 2.73(L) 4.30 - 5.80 M/cumm [facility] Comment:Testing performed by : [address] [address] MCV 93.4 81.3 - 96.4 fL [facility] Comment:Testing performed by : [address] [address] MCH 28.9 27.1 - 33.3 pg [facility] Comment:Testing performed by : [address] [address] MCHC 31.0(L) 32.3 - 35.7 g/dL [facility] Comment:Testing performed by : [address] [address] RDW CV 16.2(H) 11.1 - 14.9 % [facility] Comment:Testing performed by : [address] [address] RDW SD 54.3(H) 35.7 - 48.1 fL [facility] Comment:Testing performed by : [address] [address] NRBC abs 0.00 0.00 - 0.01 K/cumm [facility] Comment:Testing performed by : [address] [address] ANC Prelim 1.93 1.50 - 6.50 K/cumm [facility] Comment: Interpretive Data The rapid ANC is a preliminary automated count and may vary from the final ANC (Neut Abs) reported in the WBC differential that follows. Current interpretive data was last revised 2025. Testing performed by: [address], [place]., [address] Blood 02/01/2025 9:02 AM CDT 02/01/2025 9:08 AM CDT Nena Cano PHARMACEUTICAL SALES REPRESENTATIVE LAB BLOOD ORDERABLES Final Result Performing Organization Address [facility]/ZIP Co de Phone Number [address] [address] * ABO/Rh (02/01/2025 9:02 AM CDT) Pathologist [facility] ABO/Rh A Positive Comment:Testing performed by : [address] [address] Blood 02/01/2025 9:02 AM CDT 02/01/2025 9:45 AM CDT Narrative [facility] - 02/01/2025 10:28 AM CDT Has the patient had Daratumumab or Isatuximab in the past 6 months?->Unknown Nena Cano PHARMACEUTICAL SALES REPRESENTATIVE LAB BLOOD BANK TEST ORDERAB LES Final Result Performing Organization Address [facility] Co de Phone Number [address] [address] * Crossmatch (02/01/2025 9:02 AM CDT) Pathologist [facility] Crossmatch Compatible [facility] Unit number for crossmatch [id number] [facility] Blood 02/01/2025 9:02 AM CDT 02/01/2025 9:45 AM CDT Jas Alcala MD LAB BLOOD BANK TEST ORDERABL ES Final Result Performing Organization Address City/[facility] Co de Phone Number [address] [address] * Antibody screen (02/01/2025 9:02 AM CDT) Pathologist [facility] Divina, indirect, Gel Interpretation Negative ABSC Comment:Testing performed by : [facility], [address] [place] [address], [place]., [address] Blood 02/01/2025 9:02 AM CDT 02/01/2025 9:45 AM CDT Narrative [facility] - 02/01/2025 10:38 AM CDT Has the patient had Daratumumab or Isatuximab in the past 6 months?->Unknown us Nena Cano PHARMACEUTICAL SALES REPRESENTATIVE LAB BLOOD BANK TEST ORDERAB LES Final Result [facility] [address] [facility] Department [place] [address] * RAD ONC ARIA SESSION SUMMARY (01/31/2025 11:32 AM CDT) Course Name C1_Esoph_ ARIA Course [...] ONCOLOGY ORD ERABLES Final Result [facility] * XR Pelvis 1 or 2 Views [...] Moise Cm M.D. MM: MM Report ID: [id number] Reading Location: [id number] Procedure Note Moise Cm MD - 02/06/2025 [...] Moise Cm M.D. MM: MM Report ID: [id number] Reading Location: [id number] us Bianca Hunter MD IMG XR PROCEDURES [...] was last reviewed 2021. Testing performed by: [address] [address] Blood 01/26/2025 12:2 1 PM CDT 01/26/2025 12:31 PM CDT Bianca Hunter MD LAB BLOOD ORDERABLES Final Result [facility] [address] [facility] Department of Laboratories [place], [place] [id number] * (ABNORMAL) Differential, auto (01/26/2025 12:21 PM CDT) Pathologist [facility] Neutrophil abs 2.3 1.5 - 6.5 K/cumm Comment:Testing performed by : [address] [address] Imm gran abs 0.1 0.0 - 0.1 K/cumm [facility] Comment:Testing performed by : [address] [address] Lymphocyte abs 0.2(L) 0.8 - 3.3 K/cumm [facility] Comment:Testing performed by : [address] [address] Monocyte abs 0.3 0.2 - 0.8 K/cumm [facility] Comment:Testing performed by : [address] [address] Eosinophil abs 0.3 0.0 - 0.5 K/cumm [facility] Comment:Testing performed by : [address] [address] Basophil abs 0.0 0.0 - 0.1 K/cumm [facility] Comment:Testing performed by : [address] [address] Neutrophil pct 73.3 % [facility] Comment: Interpretive Data Percent cell count reference ranges are not reported, since discordance with absolute values may lead to misinterpretation of CBC data. Current Interpretive Data was last revised on 2018. Testing performed by: [address] [address] Imm gran pct 2.9 % [facility] Comment: Interpretive Data Percent cell count reference ranges are not reported, since discordance with absolute values may lead to misinterpretation of CBC data. Current Interpretive Data was last revised on 2018. Testing performed by: [address] [address] Lymphocyte pct 5.8 % [facility] Comment: Interpretive Data Percent cell count reference ranges are not reported, since discordance with absolute values may lead to misinterpretation of CBC data. Current Interpretive Data was last revised on 2018. Testing performed by: [address] [address] Monocyte pct 8.0 % [facility] Comment: Interpretive Data Percent cell count reference ranges are not reported, since discordance with absolute values may lead to misinterpretation of CBC data. Current Interpretive Data was last revised on 2018. Testing performed by: [address] [address] Eosinophil pct 9.0 % [facility] Comment: Interpretive Data Percent cell count reference ranges are not reported, since discordance with absolute values may lead to misinterpretation of CBC data. Current Interpretive Data was last revised on 2018. Testing performed by: [address] [address] Basophil pct 1.0 % [facility] Comment: Interpretive Data Percent cell count reference ranges are not reported, since discordance with absolute values may lead to misinterpretation of CBC data. Current Interpretive Data was last revised on 2018. Testing performed by: [address] [address] Blood 01/26/2025 12:2 1 PM CDT 01/26/2025 12:31 PM CDT Bianca Hunter MD LAB BLOOD ORDERABLES Final Result [facility] [address] Department [place] [address] * (ABNORMAL) CBC with auto differential (01/26/2025 12:21 PM CDT) [facility] WBC 3.1(L) 3.8 - 9.9 K/cumm Comment:Testing performed by : [address] [address] Hgb 8.1(L) 13.0 - 17.5 g/dL [facility] Comment:Testing performed by : [address] [address] Hct 26.6(L) 38.9 - 50.3 % [facility] Comment:Testing performed by : [address] [address] Plt 234 150 - 400 K/cumm [facility] Comment:Testing performed by : [address] [address] MPV 8.6(L) 9.1 - 12.3 fL [facility] Comment:Testing performed by : [address], [address] RBC 2.80(L) 4.30 - 5.80 M/cumm [facility] Comment:Testing performed by : [address] [address] MCV 95.0 81.3 - 96.4 fL [facility] Comment:Testing performed by : [address] [address] MCH 28.9 27.1 - 33.3 pg [facility] Comment:Testing performed by : [address] [address] MCHC 30.5(L) 32.3 - 35.7 g/dL [facility] Comment:Testing performed by : [address], [address] RDW CV 16.4(H) 11.1 - 14.9 % [facility] Comment:Testing performed by : [address], [address] RDW SD 57.5(H) 35.7 - 48.1 fL [facility] Comment:Testing performed by : [address] [address] NRBC abs 0.00 0.00 - 0.01 K/cumm [facility] Comment:Testing performed by : [address] [address] Blood 01/26/2025 12:2 1 PM CDT 01/26/2025 12:31 PM CDT Bianca Hunter MD LAB BLOOD ORDERABLES Final Result [facility] [address] [facility] Department [place] [address] * (ABNORMAL) Comprehensive metabolic panel (01/26/2025 12:21 PM CDT) Sodium 139 135 - 145 mmol/L Comment:Testing performed by : [address] [address] Potassium, pl 4.6 3.3 - 4.9 mmol/L [facility] Comment:Testing performed by : [address] [address] Chloride 109 97 - 110 mmol/L [facility] Comment:Testing performed by : [address] [address] CO2 22 22 - 32 mmol/L [facility] Comment:Testing performed by : [address] [address] Anion gap 8 2 - 15 mmol/L [facility] Comment:Testing performed by : [address] [address] BUN 16 6 - 25 mg/dL [facility] Comment:Testing performed by : [address] [address] Creatinine 1.50(H) 0.80 - 1.30 mg/dL [facility] Comment:Testing performed by : [address] [address] Glucose 100 70 - 199 mg/dL [facility] [...] was last revised 2022. Testing performed by: [address] [address] Calcium 8.4(L) 8.5 - 10.3 mg/dL [facility] Comment:Testing performed by : [address] [address] Bilirubin, total 0.2 0.1 - 1.2 mg/dL [facility] Comment:Testing performed by : [address] [address] Protein, pl 6.0(L) 6.5 - 8.5 g/dL [facility] Comment:Testing performed by : [address] [address] Albumin 3.7 3.5 - 5.0 g/dL [facility] Comment:Testing performed by : [address] [address] Alk phos 57 40 - 130 Units/L [facility] Comment:Testing performed by : [address] [address] ALT 9 7 - 55 Units/L [facility] Comment:Testing performed by : [address] [address] AST 13 10 - 50 Units/L [facility] Comment:Testing performed by : [address] [address] Blood 01/26/2025 12:2 1 PM CDT 01/26/2025 12:31 PM CDT Bianca Hunter MD LAB BLOOD ORDERABLES Final Result [facility] [address] [facility] Department [place] [address] * RAD ONC ARIA SESSION SUMMARY (01/26/2025 11:40 AM CDT) Course Name C1_Esoph_20 25 [...] Miscellaneous RADIATION ONCOLOGY ORD ERABLES Final Result ARIJovana * RAD ONC ARIA SESSION SUMMARY (01/25/2025 [...] DION * RAD ONC ARIA SESSION SUMMARY (01/24/2025 11:37 AM CDT) Course Name C1_Esoph_20 25 ARIA [...] Miscellaneous RADIATION ONCOLOGY ORD ERABLES Final Result ARIJovana * RAD ONC ARIA SESSION SUMMARY (01/23/2025 11:40 AM CDT) Course Name C1_Esoph_20 ARIA [...] (01/20/2025 11:48 AM CDT) Course Name C1_Esoph_20 ARIA Course [...] reviewed 2021. Testing performed by: [facility], [address] [place] [address]., [address] Blood 01/19/2025 8:52 AM CDT 01/19/2025 8:59 AM CDT us Bianca Hunter MD LAB BLOOD ORDERABLES Final Result ISAAC 2587 [facility] Department [place] [address] * (ABNORMAL) Differential, auto (01/19/2025 8:52 AM CDT) Neutrophil abs 2.9 1.5 - 6.5 K/cumm Comment:Testing performed by : [address] [address] Imm gran abs 0.0 0.0 - 0.1 K/cumm ISAAC Comment:Testing performed by : [address], [place]., [address] Lymphocyte abs 0.6(L) 0.8 - 3.3 K/cumm IS[facility]AC Comment:Testing performed by : [address], [place]., [address] Monocyte abs 0.6 0.2 - 0.8 K/cumm IS[facility]AC Comment:Testing performed by : [address], [place]., [address] Eosinophil abs 0.6(H) 0.0 - 0.5 K/cumm [facility] Comment:Testing performed by : [address] [address] Basophil abs 0.1 0.0 - 0.1 K/cumm [facility] Comment:Testing performed by : [address] [address] Neutrophil pct 60.4 % [facility] Comment: Interpretive Data Percent cell count reference ranges are not reported, since discordance with absolute values may lead to misinterpretation of CBC data. Current Interpretive Data was last revised on 2018. Testing performed by: [address] [address] Imm gran pct 0.4 % [facility] Comment: Interpretive Data Percent cell count reference ranges are not reported, since discordance with absolute values may lead to misinterpretation of CBC data. Current Interpretive Data was last revised on 2018. Testing performed by: [address] [address] Lymphocyte pct 13.1 % [facility] Comment: Interpretive Data Percent cell count reference ranges are not reported, since discordance with absolute values may lead to misinterpretation of CBC data. Current Interpretive Data was last revised on 2018. Testing performed by: [address] [address] Monocyte pct 13.3 % [facility] Comment: Interpretive Data Percent cell count reference ranges are not reported, since discordance with absolute values may lead to misinterpretation of CBC data. Current Interpretive Data was last revised on 2018. Testing performed by: [address] [address] Eosinophil pct 11.8 % [facility] SERNA Comment: Interpretive Data Percent cell count reference ranges are not reported, since discordance with absolute values may lead to misinterpretation of CBC data. Current Interpretive Data was last revised on 2018. Testing performed by: [address] [address] Basophil pct 1.0 % [facility] Comment: Interpretive Data Percent cell count reference ranges are not reported, since discordance with absolute values may lead to misinterpretation of CBC data. Current Interpretive Data was last revised on 2018. Testing performed by: [address] [address] Blood 01/19/2025 8:52 AM CDT 01/19/2025 8:59 AM CDT Bianca Hunter MD LAB BLOOD ORDERABLES Final Result [facility] Department [place] [address] * (ABNORMAL) CBC with auto differential (01/19/2025 8:52 AM CDT) WBC 4.8 3.8 - 9.9 K/cumm Comment:Testing performed by : [address] [address] Hgb 8.7(L) 13.0 - 17.5 g/dL [facility] SERNA Comment:Testing performed by : [address] [address] Hct 28.8(L) 38.9 - 50.3 % [facility] SERNA Comment:Testing performed by : [address] [address] Plt 259 150 - 400 K/cumm [facility] SERNA Comment:Testing performed by : [address] [address] MPV 8.5(L) 9.1 - 12.3 fL [facility] SERNA Comment:Testing performed by : [address] [address] RBC 3.05(L) 4.30 - 5.80 M/cumm [facility] SERNA Comment:Testing performed by : [address] [address] MCV 94.4 81.3 - 96.4 fL [facility] SERNA Comment:Testing performed by : [address] [address] MCH 28.5 27.1 - 33.3 pg [facility] SERNA Comment:Testing performed by : [address] [address] MCHC 30.2(L) 32.3 - 35.7 g/dL [facility] SERNA Comment:Testing performed by : [address] [address] RDW CV 18.5(H) 11.1 - 14.9 % [facility] Comment:Testing performed by : [address] [address] RDW SD 64.4(H) 35.7 - 48.1 fL [facility] Comment:Testing performed by : [address] [address] NRBC abs 0.00 0.00 - 0.01 K/cumm [facility] Comment:Testing performed by : [address] [address] Blood 01/19/2025 8:52 AM CDT 01/19/2025 8:59 AM CDT us Bianca Hunter MD LAB BLOOD ORDERABLES Final Result ISAAC 1248 [facility] Department [place] [address] * (ABNORMAL) Comprehensive metabolic panel (01/19/2025 8:52 AM CDT) [facility] Sodium 140 135 - 145 mmol/L Comment:Testing performed by : [address] [address] Potassium, pl 4.0 3.3 - 4.9 mmol/L [facility] Comment:Testing performed by : [address] [address] Chloride 108 97 - 110 mmol/L [facility] Comment:Testing performed by : [address], [place]., [address] CO2 24 22 - 32 mmol/L [facility] Comment:Testing performed by : [address] [address] Anion gap 8 2 - 15 mmol/L [facility] Comment:Testing performed by : [address] [address] BUN 16 6 - 25 mg/dL [facility] Comment:Testing performed by : [address] [address] Creatinine 1.80(H) 0.80 - 1.30 mg/dL [facility] Comment:Testing performed by : [address] [address] Glucose 98 70 - 199 mg/dL [facility] Comment: Interpretive Data Fasting glucose >/= 126 [...] was last revised 2022. Testing performed by: [address] [address] Calcium 8.7 8.5 - 10.3 mg/dL [facility] Comment:Testing performed by : [address] [address] Bilirubin, total 0.2 0.1 - 1.2 mg/dL [facility] Comment:Testing performed by : [address] [address] Protein, pl 6.2(L) 6.5 - 8.5 g/dL [facility] Comment:Testing performed by : [address] [address] Albumin 3.8 3.5 - 5.0 g/dL [facility] Comment:Testing performed by : [address], [address] Alk phos 65 40 - 130 Units/L [facility] Comment:Testing performed by : [address], [address] ALT 9 7 - 55 Units/L [facility] Comment:Testing performed by : [address], [address] AST 13 10 - 50 Units/L [facility] Comment:Testing performed by : [address], [address] Blood 01/19/2025 8:52 AM CDT 01/19/2025 8:59 AM CDT us Bianca Hunter MD LAB BLOOD ORDERABLES Final Result [place] [id number] [facility] Department [place] [address] * RAD ONC ARIA SESSION SUMMARY (01/19/2025 8:34 AM CDT) Course Name C1_Esoph_20 25 ARIA [...] Transfuse RBC (01/18/2025 2:35 PM CDT) Blood Janiya Sierra MD BLOOD TRANSFUSION ORDERABLES Fin al Result * Prepare RBC: 1 Units (01/18/2025 11:31 AM CDT) Units requested 1 Comment:Testing performed by : [facility], [address] [place] [address], [address] Units requested Ready ISAAC Comment:Testing performed by : [address] [address] Unit Number [id number] Product code [id number] [facility] Blood Expiration Date [id number] [facility] Product Blood Type (for scanning) 9500 [facility] Product Blood Type ONEG [facility] Dispense Status DISPENSED [facility] Blood 01/18/2025 11:3 1 AM CDT 01/18/2025 11:31 AM CDT Nena Cano NP BLOOD BANK PRODUCT ORDERABL ES Final Result [facility] 2480 [facility] Department [place] [address] * (ABNORMAL) eGFR (01/18/2025 9:42 AM CDT) [...] was last reviewed 2021. Testing performed by: [address] [address] Blood 01/18/2025 9:42 AM CDT 01/18/2025 9:44 AM CDT Nena Cano NP LAB BLOOD ORDERABLES Final Result [facility] Department [place] [address] * (ABNORMAL) Differential, auto (01/18/2025 9:42 AM CDT) Neutrophil abs 3.3 1.5 - 6.5 K/cumm Comment:Testing performed by : [address] [address] Imm gran abs 0.0 0.0 - 0.1 K/cumm [facility] Comment:Testing performed by : [address] [address] Lymphocyte abs 0.6(L) 0.8 - 3.3 K/cumm [facility] Comment:Testing performed by : [address] [address] Monocyte abs 0.6 0.2 - 0.8 K/cumm [facility] Comment:Testing performed by : [address] [address] Eosinophil abs 0.6(H) 0.0 - 0.5 K/cumm [facility] Comment:Testing performed by : [address] [address] Basophil abs 0.1 0.0 - 0.1 K/cumm [facility] Comment:Testing performed by : [address] [address] Neutrophil pct 63.9 % [facility] Comment: Interpretive Data Percent cell count reference ranges are not reported, since discordance with absolute values may lead to misinterpretation of CBC data. Current Interpretive Data was last revised on 2018. Testing performed by: [address] [address] Imm gran pct 0.4 % [facility] Comment: Interpretive Data Percent cell count reference ranges are not reported, since discordance with absolute values may lead to misinterpretation of CBC data. Current Interpretive Data was last revised on 2018. Testing performed by: [address] [address] Lymphocyte pct 11.8 % [facility] Comment: Interpretive Data Percent cell count reference ranges are not reported, since discordance with absolute values may lead to misinterpretation of CBC data. Current Interpretive Data was last revised on 2018. Testing performed by: [address] [address] Monocyte pct 11.9 % [facility] Comment: Interpretive Data Percent cell count reference ranges are not reported, since discordance with absolute values may lead to misinterpretation of CBC data. Current Interpretive Data was last revised on 2018. Testing performed by: [address] [address] Eosinophil pct 10.8 % [facility] Comment: Interpretive Data Percent cell count reference ranges are not reported, since discordance with absolute values may lead to misinterpretation of CBC data. Current Interpretive Data was last revised on 2018. Testing performed by: [address] [address] Basophil pct 1.2 % [facility] Comment: Interpretive Data Percent cell count reference ranges are not reported, since discordance with absolute values may lead to misinterpretation of CBC data. Current Interpretive Data was last revised on 2018. Testing performed by: [address] [address] Blood 01/18/2025 9:42 AM CDT 01/18/2025 9:44 AM CDT us Nena Cano NP LAB BLOOD ORDERABLES Final Result ISAAC 1731 [facility] Department [place] [address] * Iron profile w/ IBC (01/18/2025 9:42 AM CDT) Pathologist [facility] Iron 50 50 - 150 mcg/dL Comment:Testing performed by : [address] [address] TIBC 251 250 - 400 mcg/dL [facility] SERNA Comment:Testing performed by : [address] [address] Transferrin saturation 20 20 - 50 % [facility] SER[facility] Comment:Testing performed by : [address] [address] Blood 01/18/2025 9:42 AM CDT 01/18/2025 11:48 AM CDT Nena Cano PHARMACEUTICAL SALES REPRESENTATIVE LAB BLOOD ORDERABLES Final Result Performing Organization Address City/State/[facility] Co de Phone Number ISAAC 4500 [facility] Department [place] [address] * (ABNORMAL) CBC with auto differential (01/18/2025 9:42 AM CDT) Pathologist [facility] WBC 5.2 3.8 - 9.9 K/cumm Comment:Testing performed by : [address] [address] Hgb 8.4(L) 13.0 - 17.5 g/dL [facility] SER[facility] Comment:Testing performed by : [address] [address] Hct 28.3(L) 38.9 - 50.3 % [facility] Comment:Testing performed by : [address] [address] Plt 259 150 - 400 K/cumm [facility] Comment:Testing performed by : [address] [address] MPV 8.4(L) 9.1 - 12.3 fL [facility] SER[facility] Comment:Testing performed by : [address] [address] RBC 2.88(L) 4.30 - 5.80 M/cumm [facility] SER[facility] Comment:Testing performed by : [address] [address] MCV 98.3(H) 81.3 - 96.4 fL [facility] Comment:Testing performed by : [address] [address] MCH 29.2 27.1 - 33.3 pg [facility] Comment:Testing performed by : [address] [address] MCHC 29.7(L) 32.3 - 35.7 g/dL [facility] Comment:Testing performed by : [address] [address] RDW CV 16.6(H) 11.1 - 14.9 % [facility] Comment:Testing performed by : [address] [address] RDW SD 59.7(H) 35.7 - 48.1 fL [facility] Comment:Testing performed by : [address] [address] NRBC abs 0.00 0.00 - 0.01 K/cumm [facility] Comment:Testing performed by : [address], [address] Blood 01/18/2025 9:42 AM CDT 01/18/2025 9:44 AM CDT Nena Cano NP LAB BLOOD ORDERABLES Final Result Performing Organization Address City/State/[facility] Co de Phone Number ISAAC 1052 [facility] Department of Laboratories [place], [place] [id number] * ABO/Rh (01/18/2025 9:42 AM CDT) ABO/Rh A Positive Comment:Testing performed by : [address], [address] Blood 01/18/2025 9:42 AM CDT 01/18/2025 10:13 AM CDT Narrative ISAAC SERNA - 01/18/2025 11:08 AM CDT Has the patient had Daratumumab or Isatuximab in the past 6 months?->Unknown Nena Cano PHARMACEUTICAL SALES REPRESENTATIVE LAB BLOOD BANK TEST ORDERAB LES Final Result Performing Organization Address City/[facility]/ZIP Co de Phone Number ISAAC [address] [employer] [place] [address] * (ABNORMAL) Reticulocyte Count (01/18/2025 9:42 AM CDT) Pathologist [facility] Retics, absolute 0.150(H) 0.020 - 0.087 M/cumm Comment:Testing performed by : [address] [address] Retics 5.2(H) 0.4 - 2.9 % [facility]AC Comment:Testing performed by : [facility], [address] [place] [address]., [address] Reticulocyte Hgb 31.1 30.5 - 38.0 pg [facility] Comment:Testing performed by : [facility], [address] [place] [address]., [address] Blood 01/18/2025 9:42 AM CDT 01/18/2025 9:44 AM CDT Nena Cano PHARMACEUTICAL SALES REPRESENTATIVE LAB BLOOD ORDERABLES Final Result Performing Organization Address [facility] Co de Phone Number [address] [employer] [place] [address] * Crossmatch (01/18/2025 9:42 AM CDT) [facility] Crossmatch Compatible [facility] Unit number for crossmatch [id number] [facility] Blood 01/18/2025 9:42 AM CDT 01/18/2025 10:13 AM CDT Gosia Gagnon MD LAB BLOOD BANK TEST ORDERAB LES Final Result Performing Organization Address City/[facility]/ZIP Co de Phone Number [address] [employer] [place] [address] * Antibody screen (01/18/2025 9:42 AM CDT) Pathologist [facility] Divina, indirect, Gel Interpretation Negative ABSC Comment:Testing performed by : [address] [address] Blood 01/18/2025 9:42 AM CDT 01/18/2025 10:13 AM CDT Narrative ISAAC - 01/18/2025 11:08 AM CDT Has the patient had Daratumumab or Isatuximab in the past 6 months?->Unknown Nena Cano PHARMACEUTICAL SALES REPRESENTATIVE LAB BLOOD BANK TEST ORDERAB LES Final Result Performing Organization Address City/[facility]/ZIP Co de Phone Number [address] [place] [employer] [place] [address] * Ferritin (01/18/2025 9:42 AM CDT) [facility] Ferritin 70 30 - 400 ng/mL Comment:Testing performed by : [address] [address] Blood 01/18/2025 9:42 AM CDT 01/18/2025 11:48 AM CDT Nena Cano PHARMACEUTICAL SALES REPRESENTATIVE LAB BLOOD ORDERABLES Final Result Performing Organization Address City/[facility]/ZIP Co de Phone Number [address] [address] * (ABNORMAL) Comprehensive metabolic panel (01/18/2025 9:42 AM CDT) [facility] Sodium 141 135 - 145 mmol/L Comment:Testing performed by : [address] [address] Potassium, pl 4.1 3.3 - 4.9 mmol/L [facility] Comment:Testing performed by : [address] [address] Chloride 109 97 - 110 mmol/L [facility] Comment:Testing performed by : [address] [place] [address] CO2 23 22 - 32 mmol/L [facility] Comment:Testing performed by : [address] [address] Anion gap 9 2 - 15 mmol/L [facility] Comment:Testing performed by : [address] [address] BUN 17 6 - 25 mg/dL [facility] Comment:Testing performed by : [address] [address] Creatinine 1.90(H) 0.80 - 1.30 mg/dL [facility] Comment:Testing performed by : [address] [address] Glucose 106 70 - 199 mg/dL [facility] [...] was last revised 2022. Testing performed by: [address] [address] Calcium 8.9 8.5 - 10.3 mg/dL [facility] Comment:Testing performed by : [address] [address] Bilirubin, total <0.2 0.1 - 1.2 mg/dL [facility] Comment:Testing performed by : [address] [address] Protein, pl 6.4(L) 6.5 - 8.5 g/dL [facility] Comment:Testing performed by : [address] [address] Albumin 3.8 3.5 - 5.0 g/dL [facility] Comment:Testing performed by : [address] [address] Alk phos 69 40 - 130 Units/L [facility] Comment:Testing performed by : [address] [address] ALT 10 7 - 55 Units/L [facility] Comment:Testing performed by : [facility], [address] [place] [address]., [address] AST 14 10 - 50 Units/L [facility] Comment:Testing performed by : [address] [address] Blood 01/18/2025 9:42 AM CDT 01/18/2025 9:44 AM CDT us Nena Cano NP LAB BLOOD ORDERABLES Final Result [facility] 0454 [facility] Department [place] [address] * IR Port Placement Chest > 5 Years (01/11/2025 12:57 PM CDT) Anatomical Region Laterality Modality Chest N/A Radio Fluoroscop y 01/11/2025 1:13 PM CDT Impressions 01/11/2025 1:13 PM CDT Successful chest wall port placement. PLAN: The catheter is ready for immediate use. Please note that a power injectable port was placed. When treatment is completed, removal can be scheduled by calling [facility] - [phone] [facility] - [phone] Electronically signed by: Linda Cardenas PA-C Narrative [...] was obtained. Prior to beginning the procedure, Chloe Protocol was used to confirm the patient's [...] was obtained. Prior to beginning the procedure, Chloe Protocol was used to confirm the patient's [...] completed, removal can be scheduled by calling [facility] - [phone] [facility] - [phone] Electronically signed by: Linda Cardenas PA-C Bianca Hunter MD IMG IR PROCEDURES Fi nal Result * (ABNORMAL) Protime-INR (01/11/2025 10:52 AM CDT) PT 15.6(H) 9.7 - 13.0 sec INR 1.43(H) 0.90 - 1.20 [facility] Comment: Interpretive data Oral anticoagulant therapeutic ranges: Venous thromboembolism prophylaxis or treatment: 2.0-3.0 CARDIOLOGY Standard range: 2.0-3.0 High-intensity range: 2.5-3.5 Refer to indication-specific guidelines for appropriate target ranges for prosthetic heart valve replacement. Current interpretive data was last revised on 2019. Blood 01/11/2025 10:5 2 AM CDT 01/11/2025 11:03 AM CDT us Mirlande MCMULLEN LAB BLOOD ORDERABLES Final Result [facility] Department [place] [address] * NM MPI SPECT (Rest and/or Stress) Multiple Studies (01/06/2025 9:00 AM PROFESSOR OF PSYCHIATRY) Anatomical Region Laterality Modality Body N/A Nuclear Medicine Narrative 01/06/2025 4:05 PM PROFESSOR OF PSYCHIATRY Patient Id: Marshall Olson is a 74 y.o. male. MR#: [id number] Study date: 01/06/2025 Report of the nuclear [...] 66% Copy to Jas Alcala MD 01/06/2025 Charlie Juarez MD IMG NM PROCEDURES Final Result * Stress Test for Myocardial Perfusion (01/06/2025 9:00 AM PROFESSOR OF PSYCHIATRY) Anatomical Region Laterality Modality Nuclear Medicine Narrative 01/06/2025 7:32 PM PROFESSOR OF PSYCHIATRY LEXISCAN NUCLEAR STRESS TEST CLINICAL INDICATION: Esophageal [...] of this test will be reported separately Charlie Juarez MD CV STRESS PROCEDURES Final Resul t * (ABNORMAL) Pulmonary Function Test - (01/05/2025 8:10 AM PROFESSOR OF PSYCHIATRY) FVC PRE 3.48 3.18 - 5.54 L [facility] FEV1 PRE 2.66 2.29 - 4.12 L [facility] [id number] 76.42 60.94 - 87.48 % [facility] OHV23-71% PRE 2.40 0.95 - 4.33 L/s [facility] PEF PRE 6.09(A) 6.21 - 10.19 L/s [facility] DLCOc SB 12.03(A) 21.15 - 35.01 ml/(min*mm Hg) [facility] DLCO/VA PRE 2.24(A) 2.64 - 4.81 ml/(min*mm Hg*L) [facility] VA 5.36(A) 7.38 - 7.38 L [facility] TLC PRE 5.96(A) 6.38 - 8.68 L [facility] VC PRE 3.55 3.51 - 5.35 L [facility] IC PRE 3.16(A) 3.37 - 3.37 L [facility] FRC PL PRE 2.79(A) 2.87 - 4.84 L [facility] ERV PRE 0.38(A) 1.06 - 1.06 L [facility] RV PRE 2.41 2.12 - 3.47 L [facility] VTG 2.85 L [facility] RAW PRE 3.42(A) 3.06 - 3.06 cmH2O*s/L [facility] Anatomical Region Laterality Modality PFT 01/05/2025 7:35 AM PROFESSOR OF PSYCHIATRY Impressions 01/08/2025 4:43 PM CDT 1. Spirometry [...] Result * (ABNORMAL) eGFR (01/04/2025 8:34 AM PROFESSOR OF PSYCHIATRY) eGFR 39(L) >=60 mL/min/1. 73 m2 Comment: [...] was last reviewed 2021. Testing performed by: [address] [address] Blood 01/04/2025 8:34 AM PROFESSOR OF PSYCHIATRY 01/04/2025 8:37 AM PROFESSOR OF PSYCHIATRY us Nena Cano NP LAB BLOOD ORDERABLES Final Result [facility] 5[address] [facility] Department [place] [address] * (ABNORMAL) Differential, auto (01/04/2025 8:34 AM PROFESSOR OF PSYCHIATRY) Pathologist [facility] Neutrophil abs 3.0 1.5 - 6.5 K/cumm Comment:Testing performed by : [address] [address] Imm gran abs 0.0 0.0 - 0.1 K/cumm [facility] SER[facility] Comment:Testing performed by : [address] [address] Lymphocyte abs 0.7(L) 0.8 - 3.3 K/cumm [facility] Comment:Testing performed by : [address] [address] Monocyte abs 0.5 0.2 - 0.8 K/cumm [facility] Comment:Testing performed by : [address], [place]., [address] Eosinophil abs 0.5 0.0 - 0.5 K/cumm [facility] Comment:Testing performed by : [address] [address] Basophil abs 0.1 0.0 - 0.1 K/cumm [facility] Comment:Testing performed by : [address] [address] Neutrophil pct 62.4 % [facility] Comment: Interpretive Data Percent cell count reference ranges are not reported, since discordance with absolute values may lead to misinterpretation of CBC data. Current Interpretive Data was last revised on 2018. Testing performed by: [address] [address] Imm gran pct 0.2 % [facility] Comment: Interpretive Data Percent cell count reference ranges are not reported, since discordance with absolute values may lead to misinterpretation of CBC data. Current Interpretive Data was last revised on 2018. Testing performed by: [address] [address] Lymphocyte pct 15.1 % [facility] Comment: Interpretive Data Percent cell count reference ranges are not reported, since discordance with absolute values may lead to misinterpretation of CBC data. Current Interpretive Data was last revised on 2018. Testing performed by: [address] [address] Monocyte pct 11.1 % [facility] Comment: Interpretive Data Percent cell count reference ranges are not reported, since discordance with absolute values may lead to misinterpretation of CBC data. Current Interpretive Data was last revised on 2018. Testing performed by: [address] [address] Eosinophil pct 9.9 % [facility] Comment: Interpretive Data Percent cell count reference ranges are not reported, since discordance with absolute values may lead to misinterpretation of CBC data. Current Interpretive Data was last revised on 2018. Testing performed by: [address] [address] Basophil pct 1.3 % [facility] Comment: Interpretive Data Percent cell count reference ranges are not reported, since discordance with absolute values may lead to misinterpretation of CBC data. Current Interpretive Data was last revised on 2018. Testing performed by: [address] [address] Blood 01/04/2025 8:34 AM PROFESSOR OF PSYCHIATRY 01/04/2025 8:37 AM PROFESSOR OF PSYCHIATRY Nena Cano PHARMACEUTICAL SALES REPRESENTATIVE LAB BLOOD ORDERABLES Final Result Performing Organization Address [facility] Co de Phone Number ISAAC [address] [employer] [place] [address] * Iron profile w/ IBC (01/04/2025 8:34 AM PROFESSOR OF PSYCHIATRY) Iron 67 50 - 150 mcg/dL Comment:Testing performed by : [address] [address] TIBC 250 250 - 400 mcg/dL ISAAC SERNA Comment:Testing performed by : [address] [address] Transferrin saturation 27 20 - 50 % ISAAC SERNA Comment:Testing performed by : [address] [address] Blood 01/04/2025 8:34 AM PROFESSOR OF PSYCHIATRY 01/04/2025 10:17 AM PROFESSOR OF PSYCHIATRY Nena Cano PHARMACEUTICAL SALES REPRESENTATIVE LAB BLOOD ORDERABLES Final Result Performing Organization Address City/[facility] Co de Phone Number DAYANA[address] [employer] [place] [address] * (ABNORMAL) CBC with auto differential (01/04/2025 8:34 AM PROFESSOR OF PSYCHIATRY) WBC 4.8 3.8 - 9.9 K/cumm Comment:Testing performed by : [address] [address] Hgb 9.1(L) 13.0 - 17.5 g/dL ISAAC Comment:Testing performed by : [address] [address] Hct 30.5(L) 38.9 - 50.3 % ISAAC Comment:Testing performed by : [address] [address] Plt 283 150 - 400 K/cumm ISAAC Comment:Testing performed by : [address] [address] MPV 8.5(L) 9.1 - 12.3 fL ISAAC Comment:Testing performed by : [address], [address] RBC 3.17(L) 4.30 - 5.80 M/cumm ISAAC Comment:Testing performed by : [address], [address] MCV 96.2 81.3 - 96.4 fL ISAAC Comment:Testing performed by : [address] [address] MCH 28.7 27.1 - 33.3 pg CERADAM Comment:Testing performed by : [address] [address] MCHC 29.8(L) 32.3 - 35.7 g/dL ISAAC Comment:Testing performed by : [address] [address] RDW CV 16.1(H) 11.1 - 14.9 % ISAAC Comment:Testing performed by : [address], [address] RDW SD 57.4(H) 35.7 - 48.1 fL CERADAM Comment:Testing performed by : [address] [address] NRBC abs 0.00 0.00 - 0.01 K/cumm ISAAC Comment:Testing performed by : [address], [address] Blood 01/04/2025 8:34 AM PROFESSOR OF PSYCHIATRY 01/04/2025 8:37 AM PROFESSOR OF PSYCHIATRY Nena Cano PHARMACEUTICAL SALES REPRESENTATIVE LAB BLOOD ORDERABLES Final Result ISAAC [facility] [place] [address] * (ABNORMAL) Reticulocyte Count (01/04/2025 8:34 AM PROFESSOR OF PSYCHIATRY) Retics, absolute 0.135(H) 0.020 - 0.087 M/cumm Comment:Testing performed by : [address] [address] Retics 4.3(H) 0.4 - 2.9 % ISAAC Comment:Testing performed by : [address] [address] Reticulocyte Hgb 30.5 30.5 - 38.0 pg ISAAC Comment:Testing performed by : [address] [address] Blood 01/04/2025 8:34 AM PROFESSOR OF PSYCHIATRY 01/04/2025 8:37 AM PROFESSOR OF PSYCHIATRY Nena Cano PHARMACEUTICAL SALES REPRESENTATIVE LAB BLOOD ORDERABLES Final Result Performing Organization Address [facility] Co de Phone Number DAY[address] [address] * Ferritin (01/04/2025 8:34 AM PROFESSOR OF PSYCHIATRY) Pathologist [facility] Ferritin 76 30 - 400 ng/mL Comment:Testing performed by : [address] [address] Blood 01/04/2025 8:34 AM PROFESSOR OF PSYCHIATRY 01/04/2025 10:17 AM PROFESSOR OF PSYCHIATRY Nena Cano PHARMACEUTICAL SALES REPRESENTATIVE LAB BLOOD ORDERABLES Final Result DAYANA[address] [place] [address] * (ABNORMAL) Comprehensive metabolic panel (01/04/2025 8:34 AM PROFESSOR OF PSYCHIATRY) Sodium 141 135 - 145 mmol/L Comment:Testing performed by : [address] [address] Potassium, pl 4.4 3.3 - 4.9 mmol/L ISAAC Comment:Testing performed by : [address] [address] Chloride 107 97 - 110 mmol/L ISAAC Comment:Testing performed by : [address] [address] CO2 26 22 - 32 mmol/L ISAAC Comment:Testing performed by : [address], [place]., [address] Anion gap 8 2 - 15 mmol/L ISAAC Comment:Testing performed by : [address] [address] BUN 17 6 - 25 mg/dL ISAAC Comment:Testing performed by : [address] [address] Creatinine 1.80(H) 0.80 - 1.30 mg/dL ISAAC Comment:Testing performed by : [address] [address] Glucose 104 70 - 199 mg/dL ISAAC [...] was last revised 2022. Testing performed by: [address] [address] Calcium 9.1 8.5 - 10.3 mg/dL ISAAC Comment:Testing performed by : [address] [address] Bilirubin, total 0.2 0.1 - 1.2 mg/dL ISAAC Comment:Testing performed by : [address] [address] Protein, pl 6.4(L) 6.5 - 8.5 g/dL ISAAC Comment:Testing performed by : [address], [address] Albumin 4.0 3.5 - 5.0 g/dL ISAAC Comment:Testing performed by : [address], [address] Alk phos 66 40 - 130 Units/L ISAAC Comment:Testing performed by : [address], [address] ALT 10 7 - 55 Units/L ISAAC Comment:Testing performed by : [address], [address] AST 16 10 - 50 Units/L ISAAC Comment:Testing performed by : [address] [address] Blood 01/04/2025 8:34 AM PROFESSOR OF PSYCHIATRY 01/04/2025 8:37 AM PROFESSOR OF PSYCHIATRY Nena Cano PHARMACEUTICAL SALES REPRESENTATIVE LAB BLOOD ORDERABLES Final Result Performing Organization Address City/State/[facility] Co de Phone Number [facility] [address] [facility] Department [place] [address] * (ABNORMAL) eGFR (12/27/2024 1:25 PM PROFESSOR OF PSYCHIATRY) eGFR 34(L) >=60 mL/min/1. 73 m2 Comment: [...] was last reviewed 2021. Testing performed by: [address] [address] Blood 12/27/2024 1:25 PM PROFESSOR OF PSYCHIATRY 12/27/2024 1:27 PM PROFESSOR OF PSYCHIATRY Nena Cano NP LAB BLOOD ORDERABLES Final Result ISAAC SERNA [facility] Department [place] [address] * Differential, auto (12/27/2024 1:25 PM PROFESSOR OF PSYCHIATRY) Neutrophil abs 3.7 1.5 - 6.5 K/cumm Comment:Testing performed by : [address] [address] Imm gran abs 0.0 0.0 - 0.1 K/cumm ISAAC Comment:Testing performed by : [address] [address] Lymphocyte abs 0.8 0.8 - 3.3 K/cumm ISAAC Comment:Testing performed by : [address] [address] Monocyte abs 0.6 0.2 - 0.8 K/cumm ISAAC Comment:Testing performed by : [address] [address] Eosinophil abs 0.4 0.0 - 0.5 K/cumm ISAAC Comment:Testing performed by : [address] [address] Basophil abs 0.1 0.0 - 0.1 K/cumm ISAAC Comment:Testing performed by : [address] [address] Neutrophil pct 66.1 % [facility] Comment: Interpretive Data Percent cell count reference ranges are not reported, since discordance with absolute values may lead to misinterpretation of CBC data. Current Interpretive Data was last revised on 2018. Testing performed by: [address] [address] Imm gran pct 0.5 % [facility] Comment: Interpretive Data Percent cell count reference ranges are not reported, since discordance with absolute values may lead to misinterpretation of CBC data. Current Interpretive Data was last revised on 2018. Testing performed by: [address] [address] Lymphocyte pct 14.5 % [facility] Comment: Interpretive Data Percent cell count reference ranges are not reported, since discordance with absolute values may lead to misinterpretation of CBC data. Current Interpretive Data was last revised on 2018. Testing performed by: [address] [address] Monocyte pct 10.6 % [facility] Comment: Interpretive Data Percent cell count reference ranges are not reported, since discordance with absolute values may lead to misinterpretation of CBC data. Current Interpretive Data was last revised on 2018. Testing performed by: [address] [address] Eosinophil pct 7.4 % CERNER Comment: Interpretive Data Percent cell count reference ranges are not reported, since discordance with absolute values may lead to misinterpretation of CBC data. Current Interpretive Data was last revised on 2018. Testing performed by: [address] [address] Basophil pct 0.9 % CERNER Comment: Interpretive Data Percent cell count reference ranges are not reported, since discordance with absolute values may lead to misinterpretation of CBC data. Current Interpretive Data was last revised on 2018. Testing performed by: [address] [address] Blood 12/27/2024 1:25 PM PROFESSOR OF PSYCHIATRY 12/27/2024 1:27 PM PROFESSOR OF PSYCHIATRY Nena Cano PHARMACEUTICAL SALES REPRESENTATIVE LAB BLOOD ORDERABLES Final Result Performing Organization Address [facility] Co de Phone Number ISAAC [address] [employer] [place] [address] * (ABNORMAL) Iron profile w/ IBC (12/27/2024 1:25 PM PROFESSOR OF PSYCHIATRY) Pathologist [facility] Iron 72 50 - 150 mcg/dL Comment:Testing performed by : [address] [address] TIBC 245(L) 250 - 400 mcg/dL ISAAC Comment:Testing performed by : [address] [address] Transferrin saturation 29 20 - 50 % ISAAC Comment:Testing performed by : [address] [address] Blood 12/27/2024 1:25 PM PROFESSOR OF PSYCHIATRY 12/27/2024 1:51 PM PROFESSOR OF PSYCHIATRY Nena Cano PHARMACEUTICAL SALES REPRESENTATIVE LAB BLOOD ORDERABLES Final Result Performing Organization Address [facility] Co de Phone Number [address] [employer] [place] [address] * (ABNORMAL) CBC with auto differential (12/27/2024 1:25 PM PROFESSOR OF PSYCHIATRY) Pathologist [facility] WBC 5.7 3.8 - 9.9 K/cumm Comment:Testing performed by : [address] [address] Hgb 8.8(L) 13.0 - 17.5 g/dL ISAAC Comment:Testing performed by : [address] [address] Hct 29.9(L) 38.9 - 50.3 % ISAAC Comment:Testing performed by : [address] [address] Plt 292 150 - 400 K/cumm ISAAC Comment:Testing performed by : [address] [address] MPV 8.5(L) 9.1 - 12.3 fL ISAAC SERNA Comment:Testing performed by : [address] [address] RBC 3.03(L) 4.30 - 5.80 M/cumm ISAAC SERNA Comment:Testing performed by : [address] [address] MCV 98.7(H) 81.3 - 96.4 fL ISAAC Comment:Testing performed by : [address] [address] MCH 29.0 27.1 - 33.3 pg ISAAC Comment:Testing performed by : [address] [address] MCHC 29.4(L) 32.3 - 35.7 g/dL ISAAC Comment:Testing performed by : [address] [address] RDW CV 16.6(H) 11.1 - 14.9 % ISAAC Comment:Testing performed by : [address] [address] RDW SD 59.5(H) 35.7 - 48.1 fL ISAAC Comment:Testing performed by : [address] [address] NRBC abs 0.00 0.00 - 0.01 K/cumm ISAAC Comment:Testing performed by : [address] [address] Blood 12/27/2024 1:25 PM PROFESSOR OF PSYCHIATRY 12/27/2024 1:27 PM PROFESSOR OF PSYCHIATRY us Nena Cano PHARMACEUTICAL SALES REPRESENTATIVE LAB BLOOD ORDERABLES Final Result ISAAC [address] [facility] Department [place] [address] * (ABNORMAL) Reticulocyte Count (12/27/2024 1:25 PM PROFESSOR OF PSYCHIATRY) Retics, absolute 0.149(H) 0.020 - 0.087 M/cumm Comment:Testing performed by : [address] [address] Retics 4.9(H) 0.4 - 2.9 % ISAAC SERNA Comment:Testing performed by : [address] [address] Reticulocyte Hgb 28.7(L) 30.5 - 38.0 pg ISAAC SERNA Comment:Testing performed by : [address] [address] Blood 12/27/2024 1:25 PM PROFESSOR OF PSYCHIATRY 12/27/2024 1:27 PM PROFESSOR OF PSYCHIATRY Nena Cano PHARMACEUTICAL SALES REPRESENTATIVE LAB BLOOD ORDERABLES Final Result Performing Organization Address [facility] Co de Phone Number DAYANA[address] [employer] [place] [address] * Ferritin (12/27/2024 1:25 PM PROFESSOR OF PSYCHIATRY) Pathologist [facility] Ferritin 171 30 - 400 ng/mL Comment:Testing performed by : [address] [address] Blood 12/27/2024 1:25 PM PROFESSOR OF PSYCHIATRY 12/27/2024 1:51 PM PROFESSOR OF PSYCHIATRY Nena Cano PHARMACEUTICAL SALES REPRESENTATIVE LAB BLOOD ORDERABLES Final Result Performing Organization Address City/[facility] Co de Phone Number [address] [address] * (ABNORMAL) Comprehensive metabolic panel (12/27/2024 1:25 PM PROFESSOR OF PSYCHIATRY) Pathologist [facility] Sodium 137 135 - 145 mmol/L Comment:Testing performed by : [address] [address] Potassium, pl 5.1(H) 3.3 - 4.9 mmol/L ISAAC SERNA Comment:Testing performed by : [address] [address] Chloride 104 97 - 110 mmol/L ISAAC SERNA Comment:Testing performed by : [address] [address] CO2 25 22 - 32 mmol/L ISAAC Comment:Testing performed by : [address] [address] Anion gap 8 2 - 15 mmol/L ISAAC Comment:Testing performed by : [address] [address] BUN 15 6 - 25 mg/dL ISAAC Comment:Testing performed by : [address] [address] Creatinine 2.00(H) 0.80 - 1.30 mg/dL ISAAC Comment:Testing performed by : [address] [address] Glucose 110 70 - 199 mg/dL ISAAC [...] was last revised 2022. Testing performed by: [address] [address] Calcium 8.9 8.5 - 10.3 mg/dL ISAAC Comment:Testing performed by : [address] [address] Bilirubin, total 0.2 0.1 - 1.2 mg/dL ISAAC Comment:Testing performed by : [address] [address] Protein, pl 6.5 6.5 - 8.5 g/dL ISAAC Comment:Testing performed by : [address] [address] Albumin 3.9 3.5 - 5.0 g/dL ISAAC Comment:Testing performed by : [address] [address] Alk phos 66 40 - 130 Units/L ISAAC SERNA Comment:Testing performed by : [facility], [address] [place] [address]., [address] ALT 14 7 - 55 Units/L ISAAC SERNA Comment:Testing performed by : [facility], [address] [place] [address]., [address] AST 21 10 - 50 Units/L ISAAC Comment:Testing performed by : [address] [address] Blood 12/27/2024 1:25 PM PROFESSOR OF PSYCHIATRY 12/27/2024 1:27 PM PROFESSOR OF PSYCHIATRY us Nena Cano NP LAB BLOOD ORDERABLES Final Result Performing Organization Address City/State/[facility] Co de Phone Number DAYANAADAM [address] [facility] Department [place] [address] * PET/CT FDG Skull to Thigh (12/16/2024 9:43 AM PROFESSOR OF PSYCHIATRY) Anatomical Region Laterality Modality N/A Positron Emissio n Tomography (PET) 12/16/2024 9:48 AM PROFESSOR OF PSYCHIATRY Narrative 12/16/2024 10:04 AM PROFESSOR OF PSYCHIATRY EXAM DESCRIPTION: PET/CT FDG SKULL TO THIGH REASON FOR STUDY: 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 RADIOPHARMACEUTICAL: 10.6 mCi F-18 Fluorodeoxyglucose (FDG) via [...] Electronically signed by Dario Hilario M.D. 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 RADIOPHARMACEUTICAL: 10.6 mCi F-18 Fluorodeoxyglucose (FDG) via [...] Dario Hilario M.D. CH: RED Report ID: [id number] Reading Location: [id number] us Charlie Juarez MD IMG PET PROCEDURES Final Result * POCT glucose (12/16/2024 7:51 AM PROFESSOR OF PSYCHIATRY) Glucose, POC 100 70 - 199 mg/dL Comment:Testing performed by : [address] [address] Blood 12/16/2024 7:51 AM PROFESSOR OF PSYCHIATRY 12/16/2024 7:51 AM PROFESSOR OF PSYCHIATRY us Charlie Juarez MD LAB POCT ORDERABLES - DEVICE Fin al Result ISAAC [address] [facility] Department [place] [address] * (ABNORMAL) eGFR (12/14/2024 9:08 AM PROFESSOR OF PSYCHIATRY) Pathologist [facility] eGFR 42(L) >=60 mL/min/1. 73 m2 Comment: [...] was last reviewed 2021. Testing performed by: [address] [address] Blood 12/14/2024 9:08 AM PROFESSOR OF PSYCHIATRY 12/14/2024 9:09 AM PROFESSOR OF PSYCHIATRY Nena Cano PHARMACEUTICAL SALES REPRESENTATIVE LAB BLOOD ORDERABLES Final Result ISAAC [address] [facility] Department [place] [address] * (ABNORMAL) Differential, auto (12/14/2024 9:08 AM PROFESSOR OF PSYCHIATRY) Neutrophil abs 2.8 1.5 - 6.5 K/cumm Comment:Testing performed by : [address] [address] Imm gran abs 0.0 0.0 - 0.1 K/cumm ISAAC Comment:Testing performed by : [address] [address] Lymphocyte abs 0.7(L) 0.8 - 3.3 K/cumm ISAAC Comment:Testing performed by : [address] [address] Monocyte abs 0.6 0.2 - 0.8 K/cumm ISAAC Comment:Testing performed by : [address] [address] Eosinophil abs 0.4 0.0 - 0.5 K/cumm ISAAC Comment:Testing performed by : [address] [address] Basophil abs 0.0 0.0 - 0.1 K/cumm ISAAC Comment:Testing performed by : [address] [address] Neutrophil pct 60.8 % ISAAC Comment: Interpretive Data Percent cell count reference ranges are not reported, since discordance with absolute values may lead to misinterpretation of CBC data. Current Interpretive Data was last revised on 2018. Testing performed by: [address] [address] Imm gran pct 0.6 % ISAAC Comment: Interpretive Data Percent cell count reference ranges are not reported, since discordance with absolute values may lead to misinterpretation of CBC data. Current Interpretive Data was last revised on 2018. Testing performed by: [address] [address] Lymphocyte pct 15.4 % ISAAC Comment: Interpretive Data Percent cell count reference ranges are not reported, since discordance with absolute values may lead to misinterpretation of CBC data. Current Interpretive Data was last revised on 2018. Testing performed by: [address] [address] Monocyte pct 13.0 % ISAAC Comment: Interpretive Data Percent cell count reference ranges are not reported, since discordance with absolute values may lead to misinterpretation of CBC data. Current Interpretive Data was last revised on 2018. Testing performed by: [address] [address] Eosinophil pct 9.3 % ISAAC Comment: Interpretive Data Percent cell count reference ranges are not reported, since discordance with absolute values may lead to misinterpretation of CBC data. Current Interpretive Data was last revised on 2018. Testing performed by: [address] [address] Basophil pct 0.9 % ISAAC Comment: Interpretive Data Percent cell count reference ranges are not reported, since discordance with absolute values may lead to misinterpretation of CBC data. Current Interpretive Data was last revised on 2018. Testing performed by: [address] [address] Blood 12/14/2024 9:08 AM PROFESSOR OF PSYCHIATRY 12/14/2024 9:09 AM PROFESSOR OF PSYCHIATRY Nena Cano NP LAB BLOOD ORDERABLES Final Result [facility] [address] [facility] Department of Laboratories [place], [place] [id number] * (ABNORMAL) Iron profile w/ IBC (12/14/2024 9:08 AM PROFESSOR OF PSYCHIATRY) Iron 225(H) 50 - 150 mcg/dL Comment:Testing performed by : [address] [address] TIBC <242(L) 250 - 400 mcg/dL ISAAC Comment:Testing performed by : [address] [address] Transferrin saturation >93(H) 20 - 50 % ISAAC Comment:Testing performed by : [address] [address] Blood 12/14/2024 9:08 AM PROFESSOR OF PSYCHIATRY 12/14/2024 9:50 AM PROFESSOR OF PSYCHIATRY Nena Cano PHARMACEUTICAL SALES REPRESENTATIVE LAB BLOOD ORDERABLES Final Result ISAAC [address] [facility] Department [place] [address] * (ABNORMAL) CBC with auto differential (12/14/2024 9:08 AM PROFESSOR OF PSYCHIATRY) WBC 4.6 3.8 - 9.9 K/cumm Comment:Testing performed by : [address] [address] Hgb 8.7(L) 13.0 - 17.5 g/dL ISAAC Comment:Testing performed by : [address] [address] Hct 29.9(L) 38.9 - 50.3 % ISAAC Comment:Testing performed by : [address] [address] Plt 278 150 - 400 K/cumm ISAAC Comment:Testing performed by : [address] [address] MPV 8.6(L) 9.1 - 12.3 fL ISAAC Comment:Testing performed by : [address] [address] RBC 3.02(L) 4.30 - 5.80 M/cumm ISAAC Comment:Testing performed by : [address] [address] MCV 99.0(H) 81.3 - 96.4 fL ISAAC Comment:Testing performed by : [address] [address] MCH 28.8 27.1 - 33.3 pg ISAAC Comment:Testing performed by : [address] [address] MCHC 29.1(L) 32.3 - 35.7 g/dL ISAAC SERNA Comment:Testing performed by : [address] [address] RDW CV 17.8(H) 11.1 - 14.9 % ISAAC SERNA Comment:Testing performed by : [address] [address] RDW SD 62.0(H) 35.7 - 48.1 fL ISAAC SERNA Comment:Testing performed by : [address] [address] NRBC abs 0.00 0.00 - 0.01 K/cumm ISAAC SERNA Comment:Testing performed by : [address] [address] Blood 12/14/2024 9:08 AM PROFESSOR OF PSYCHIATRY 12/14/2024 9:09 AM PROFESSOR OF PSYCHIATRY Nena Cano PHARMACEUTICAL SALES REPRESENTATIVE LAB BLOOD ORDERABLES Final Result [facility] [address] [facility] Department of Laboratories [place], [place] [id number] * (ABNORMAL) Reticulocyte Count (12/14/2024 9:08 AM PROFESSOR OF PSYCHIATRY) Retics, absolute 0.206(H) 0.020 - 0.087 M/cumm Comment:Testing performed by : [address] [address] Retics 6.8(H) 0.4 - 2.9 % ISAAC Comment:Testing performed by : [address] [address] Reticulocyte Hgb 29.9(L) 30.5 - 38.0 pg ISAAC SERNA Comment:Testing performed by : [address] [address] Blood 12/14/2024 9:08 AM PROFESSOR OF PSYCHIATRY 12/14/2024 9:09 AM PROFESSOR OF PSYCHIATRY Nena Cano PHARMACEUTICAL SALES REPRESENTATIVE LAB BLOOD ORDERABLES Final Result ISAAC [address] [address] * Ferritin (12/14/2024 9:08 AM PROFESSOR OF PSYCHIATRY) Pathologist [facility] Ferritin 201 30 - 400 ng/mL Comment:Testing performed by : [address] [address] Blood 12/14/2024 9:08 AM PROFESSOR OF PSYCHIATRY 12/14/2024 9:50 AM PROFESSOR OF PSYCHIATRY Nena Cano PHARMACEUTICAL SALES REPRESENTATIVE LAB BLOOD ORDERABLES Final Result Performing Organization Address City/[facility] Co de Phone Number ISAAC [address] [address] * (ABNORMAL) Comprehensive metabolic panel (12/14/2024 9:08 AM PROFESSOR OF PSYCHIATRY) [facility] Sodium 142 135 - 145 mmol/L Comment:Testing performed by : [address] [address] Potassium, pl 4.5 3.3 - 4.9 mmol/L ISAAC Comment:Testing performed by : [address] [address] Chloride 109 97 - 110 mmol/L ISAAC Comment:Testing performed by : [address] [address] CO2 23 22 - 32 mmol/L ISAAC Comment:Testing performed by : [address] [address] Anion gap 10 2 - 15 mmol/L ISAAC Comment:Testing performed by : [address] [address] BUN 16 6 - 25 mg/dL ISAAC Comment:Testing performed by : [address] [address] Creatinine 1.70(H) 0.80 - 1.30 mg/dL ISAAC Comment:Testing performed by : [address] [address] Glucose 95 70 - 199 mg/dL ISAAC [...] was last revised 2022. Testing performed by: [address] [address] Calcium 9.0 8.5 - 10.3 mg/dL ISAAC Comment:Testing performed by : [address] [address] Bilirubin, total 0.2 0.1 - 1.2 mg/dL [facility] Comment:Testing performed by : [address] [address] Protein, pl 6.2(L) 6.5 - 8.5 g/dL ISAAC Comment:Testing performed by : [address] [address] Albumin 3.6 3.5 - 5.0 g/dL ISAAC Comment:Testing performed by : [address] [address] Alk phos 60 40 - 130 Units/L ISAAC Comment:Testing performed by : [address] [address] ALT 19 7 - 55 Units/L ISAAC Comment:Testing performed by : [address] [address] AST 29 10 - 50 Units/L ISAAC Comment:Testing performed by : [address] [address] Blood 12/14/2024 9:08 AM PROFESSOR OF PSYCHIATRY 12/14/2024 9:09 AM PROFESSOR OF PSYCHIATRY us Nena Cano PHARMACEUTICAL SALES REPRESENTATIVE LAB BLOOD ORDERABLES Final Result DAY[facility]IWM [address] [facility] Department [place] [address] * Upper EUS (12/13/2024 10:03 AM PROFESSOR OF PSYCHIATRY) Anatomical Region Laterality Modality Other Narrative Procedure Note Nikolay Dunn MD - 12/13/2024 10:03 AM CST GI ENDOSCOPY [facility] Patient Name: Marshall Olson Procedure Date: 12/13/2024 10:03 AM Date of : 1950 Admit Type: Outpatient Age: 74 Gender: Male Attending MD: Nikolay Dunn M.D. Room: [facility] ENDOSCOPY ROOM 9 Note Status: Finalized Procedure: [...] and informed consent was obtained.The Olympusradial endosonoscope [id number] was introduced throughthe mouth, and advanced to the body of the [id number] end[facility] was introduced through the mouth, and [...] following this procedure please call my officeat [phone] ([phone]) to speak to my nurses. After hours and evenings please call [phone] speak to the GI fellow supervisor hairspring fabrication. Please tell themthat Dr. Dunn did your procedure and that your were instructed to have the fellow call me or thephysician covering for me to discuss the management of your condition. If you have an urgent problem, please goto the nearest emergency room and have the ER doctorcall my office during the day or [facility] transfer ([phone]) center after hours and weekends to arrange admission or transfer to our facility. Attending Participation: I personally performed the entire procedure. Electronically Signed By: Nikolay Dunn M.D. Nikolay Dunn M.D. 12/13/2024 11:44:13 AM . Number of Addenda: 0 Note Initiated On: 12/13/2024 10:03 AM us Nikolay Dunn MD ENDOSCOPY PROCEDURES Final Result * (ABNORMAL) Protime-INR (12/13/2024 7:23 AM PROFESSOR OF PSYCHIATRY) PT 13.9(H) 9.7 - 13.0 sec INR 1.28(H) 0.90 - 1.20 [facility] Comment: Interpretive data Oral anticoagulant therapeutic ranges: Venous thromboembolism prophylaxis or treatment: 2.0-3.0 CARDIOLOGY Standard range: 2.0-3.0 High-intensity range: 2.5-3.5 Refer to indication-specific guidelines for appropriate target ranges for prosthetic heart valve replacement. Current interpretive data was last revised on 2019. Blood Venous blood specimen / Unknown 12/13/2024 7:23 AM PROFESSOR OF PSYCHIATRY 12/13/2024 7:37 AM PROFESSOR OF PSYCHIATRY us Nikolay Dunn MD LAB BLOOD ORDERABLES Final Result [facility] Department [place] [address] * CT Chest Abdomen Pelvis W Contrast (12/13/2024 7:09 AM PROFESSOR OF PSYCHIATRY) Anatomical Region Laterality Modality Body N/A Computed Tomogra phy 12/13/2024 7:26 AM PROFESSOR OF PSYCHIATRY Impressions 12/13/2024 7:26 AM PROFESSOR OF PSYCHIATRY 1. Nondistended esophagus. No discrete esophageal lesion identified to correspond to known malignancy. 2. No evidence of metastatic disease in the chest, abdomen, and pelvis. Electronically signed by: Courtney Johnson M.D. Narrative 12/13/2024 7:26 AM PROFESSOR OF PSYCHIATRY EXAMINATION: Computed tomography of the chest, abdomen [...] * (ABNORMAL) POCT creatinine (12/13/2024 6:50 AM PROFESSOR OF PSYCHIATRY) [facility] Creatinine POC 2.0(H) 0.8 - 1.3 mg/dL Blood 12/13/2024 6:50 AM PROFESSOR OF PSYCHIATRY 12/13/2024 6:50 AM PROFESSOR OF PSYCHIATRY Nikolay Dunn MD LAB POCT ORDERABLES - DEVIC E Final Result Performing Organization Address City/State/[facility] Co de Phone Number [facility] Department [place] [address] * Transfuse RBC (12/07/2024 3:27 PM PROFESSOR OF PSYCHIATRY) Blood Janiya Sierra MD BLOOD TRANSFUSION ORDERABLES Fin al Result * Prepare RBC: 1 Units (12/07/2024 10:02 AM PROFESSOR OF PSYCHIATRY) Pathologist [facility] Units requested 1 Comment:Testing performed by : [address] [address] Units requested Ready [facility]AC SERNA Comment:Testing performed by : [address] [address] Unit Number [id number] Product code [id number] [facility] Blood Expiration Date [id number] [facility] Product Blood Type (for scanning) 6200 [facility] Product Blood Type APOS [facility] Dispense Status DISPENSED [facility] Blood 12/07/2024 10:0 2 AM PROFESSOR OF PSYCHIATRY 12/07/2024 10:01 AM PROFESSOR OF PSYCHIATRY Nena Cano NP BLOOD BANK PRODUCT ORDERABL ES Final Result Performing Organization Address [facility] Co de Phone Number ISAAC [address] [employer] [place] [address] * (ABNORMAL) eGFR (12/07/2024 9:29 AM PROFESSOR OF PSYCHIATRY) eGFR 32(L) >=60 mL/min/1. 73 m2 Comment: [...] reviewed 2021. Testing performed by: [facility], [address] [place] [address]., [address] Blood 12/07/2024 9:29 AM PROFESSOR OF PSYCHIATRY 12/07/2024 9:29 AM PROFESSOR OF PSYCHIATRY Nena Cano NP LAB BLOOD ORDERABLES Final Result Performing Organization Address City/[facility]/ZIP Co de Phone Number [address] [employer] [place] [address] * (ABNORMAL) Differential, auto (12/07/2024 9:29 AM PROFESSOR OF PSYCHIATRY) Neutrophil abs 2.8 1.5 - 6.5 K/cumm Comment:Testing performed by : [address] [address] Imm gran abs 0.0 0.0 - 0.1 K/cumm ISAAC Comment:Testing performed by : [address] [address] Lymphocyte abs 0.6(L) 0.8 - 3.3 K/cumm [facility] Comment:Testing performed by : [address] [address] Monocyte abs 0.6 0.2 - 0.8 K/cumm [facility] Comment:Testing performed by : [address] [address] Eosinophil abs 0.4 0.0 - 0.5 K/cumm [facility] Comment:Testing performed by : [address] [address] Basophil abs 0.1 0.0 - 0.1 K/cumm [facility] Comment:Testing performed by : [address] [address] Neutrophil pct 62.7 % [facility] Comment: Interpretive Data Percent cell count reference ranges are not reported, since discordance with absolute values may lead to misinterpretation of CBC data. Current Interpretive Data was last revised on 2018. Testing performed by: [address] [address] Imm gran pct 0.5 % [facility] Comment: Interpretive Data Percent cell count reference ranges are not reported, since discordance with absolute values may lead to misinterpretation of CBC data. Current Interpretive Data was last revised on 2018. Testing performed by: [address] [address] Lymphocyte pct 14.3 % [facility] Comment: Interpretive Data Percent cell count reference ranges are not reported, since discordance with absolute values may lead to misinterpretation of CBC data. Current Interpretive Data was last revised on 2018. Testing performed by: [address] [address] Monocyte pct 12.5 % [facility] Comment: Interpretive Data Percent cell count reference ranges are not reported, since discordance with absolute values may lead to misinterpretation of CBC data. Current Interpretive Data was last revised on 2018. Testing performed by: [address] [address] Eosinophil pct 8.9 % [facility] Comment: Interpretive Data Percent cell count reference ranges are not reported, since discordance with absolute values may lead to misinterpretation of CBC data. Current Interpretive Data was last revised on 2018. Testing performed by: [address] [address] Basophil pct 1.1 % [facility] Comment: Interpretive Data Percent cell count reference ranges are not reported, since discordance with absolute values may lead to misinterpretation of CBC data. Current Interpretive Data was last revised on 2018. Testing performed by: [address] [address] Blood 12/07/2024 9:2 9 AM PROFESSOR OF PSYCHIATRY 12/07/2024 9:29 AM PROFESSOR OF PSYCHIATRY Nena Cano PHARMACEUTICAL SALES REPRESENTATIVE LAB BLOOD ORDERABLES Final Result [facility] [address] [facility] Department of Laboratories [place], [place] [id number] * (ABNORMAL) Iron profile w/ IBC (12/07/2024 9:29 AM PROFESSOR OF PSYCHIATRY) Iron 221(H) 50 - 150 mcg/dL Comment:Testing performed by : [address] [address] TIBC 250 250 - 400 mcg/dL [facility] SERNA Comment:Testing performed by : [address] [address] Transferrin saturation 88(H) 20 - 50 % [facility] Comment:Testing performed by : [address] [address] Blood 12/07/2024 9:29 AM PROFESSOR OF PSYCHIATRY 12/07/2024 11:47 AM PROFESSOR OF PSYCHIATRY Nena Cano NP LAB BLOOD ORDERABLES Final Result [facility]NA [address] [facility] Department [place] [address] * (ABNORMAL) CBC with auto differential (12/07/2024 9:29 AM PROFESSOR OF PSYCHIATRY) WBC 4.4 3.8 - 9.9 K/cumm Comment:Testing performed by : [address] [address] Hgb 8.0(L) 13.0 - 17.5 g/dL [facility] Comment:Testing performed by : [address] [address] Hct 27.2(L) 38.9 - 50.3 % [facility] Comment:Testing performed by : [address] [address] Plt 312 150 - 400 K/cumm [facility] Comment:Testing performed by : [address] [address] MPV 8.5(L) 9.1 - 12.3 fL [facility] Comment:Testing performed by : [address] [address] RBC 2.78(L) 4.30 - 5.80 M/cumm [facility] Comment:Testing performed by : [address] [address] MCV 97.8(H) 81.3 - 96.4 fL [facility] Comment:Testing performed by : [address] [address] MCH 28.8 27.1 - 33.3 pg [facility] Comment:Testing performed by : [address] [address] MCHC 29.4(L) 32.3 - 35.7 g/dL [facility] Comment:Testing performed by : [address] [place]., [address] RDW CV 16.7(H) 11.1 - 14.9 % [facility] Comment:Testing performed by : [address] [address] RDW SD 59.7(H) 35.7 - 48.1 fL [facility] SERNA Comment:Testing performed by : [address] [address] NRBC abs 0.00 0.00 - 0.01 K/cumm [facility] Comment:Testing performed by : [address] [address] Blood 12/07/2024 9:29 AM PROFESSOR OF PSYCHIATRY 12/07/2024 9:29 AM PROFESSOR OF PSYCHIATRY Nena Cano PHARMACEUTICAL SALES REPRESENTATIVE LAB BLOOD ORDERABLES Final Result Performing Organization Address [facility] Co de Phone Number [address] [employer] [place] [address] * ABO/Rh (12/07/2024 9:29 AM PROFESSOR OF PSYCHIATRY) ABO/Rh A Positive Comment:Testing performed by : [address] [address] Blood 12/07/2024 9:29 AM PROFESSOR OF PSYCHIATRY 12/07/2024 10:12 AM PROFESSOR OF PSYCHIATRY Narrative [facility] - 12/07/2024 10:53 AM PROFESSOR OF PSYCHIATRY Has the patient had Daratumumab or Isatuximab in the past 6 months?->Unknown Nena Cano NP LAB BLOOD BANK TEST ORDERAB LES Final Result Performing Organization Address City/[facility] Co de Phone Number [address] [employer] [place] [address] * (ABNORMAL) Reticulocyte Count (12/07/2024 9:29 AM PROFESSOR OF PSYCHIATRY) Retics, absolute 0.200(H) 0.020 - 0.087 M/cumm Comment:Testing performed by : [address] [address] Retics 7.2(H) 0.4 - 2.9 % [facility] Comment:Testing performed by : [address] [address] Reticulocyte Hgb 26.3(L) 30.5 - 38.0 pg [facility] Comment:Testing performed by : [address] [address] Blood 12/07/2024 9:29 AM PROFESSOR OF PSYCHIATRY 12/07/2024 9:29 AM PROFESSOR OF PSYCHIATRY Nena Cano PHARMACEUTICAL SALES REPRESENTATIVE LAB BLOOD ORDERABLES Final Result Performing Organization Address City/[facility]/ZIP Co de Phone Number [address] [employer] [place] [address] * Crossmatch (12/07/2024 9:29 AM PROFESSOR OF PSYCHIATRY) Pathologist [facility] Crossmatch Compatible [facility] Unit number for crossmatch [id number] [facility] Blood 12/07/2024 9:29 AM PROFESSOR OF PSYCHIATRY 12/07/2024 10:12 AM PROFESSOR OF PSYCHIATRY Nnea Cano PHARMACEUTICAL SALES REPRESENTATIVE LAB BLOOD BANK TEST ORDERAB LES Final Result Performing Organization Address [facility] Co de Phone Number [address] [address] * Antibody screen (12/07/2024 9:29 AM PROFESSOR OF PSYCHIATRY) Divina, indirect, Gel Interpretation Negative ABSC Comment:Testing performed by : [address] [address] Blood 12/07/2024 9:29 AM PROFESSOR OF PSYCHIATRY 12/07/2024 10:12 AM PROFESSOR OF PSYCHIATRY Narrative [facility] - 12/07/2024 10:53 AM PROFESSOR OF PSYCHIATRY Has the patient had Daratumumab or Isatuximab in the past 6 months?->Unknown Nena Cano PHARMACEUTICAL SALES REPRESENTATIVE LAB BLOOD BANK TEST ORDERAB LES Final Result [facility] [address] [address] * Ferritin (12/07/2024 9:29 AM PROFESSOR OF PSYCHIATRY) [facility] Ferritin 284 30 - 400 ng/mL Comment:Testing performed by : [address] [address] Blood 12/07/2024 9:29 AM PROFESSOR OF PSYCHIATRY 12/07/2024 11:47 AM PROFESSOR OF PSYCHIATRY Nena Cano PHARMACEUTICAL SALES REPRESENTATIVE LAB BLOOD ORDERABLES Final Result Performing Organization Address City/[facility] Co de Phone Number [facility] [address] [address] * (ABNORMAL) Comprehensive metabolic panel (12/07/2024 9:29 AM PROFESSOR OF PSYCHIATRY) [facility] Sodium 142 135 - 145 mmol/L Comment:Testing performed by : [address] [address] Potassium, pl 4.3 3.3 - 4.9 mmol/L [facility] Comment:Testing performed by : [address] [address] Chloride 107 97 - 110 mmol/L [facility] Comment:Testing performed by : [address] [address] CO2 26 22 - 32 mmol/L [facility] Comment:Testing performed by : [address] [address] Anion gap 9 2 - 15 mmol/L [facility] Comment:Testing performed by : [address] [address] BUN 14 6 - 25 mg/dL [facility] Comment:Testing performed by : [address] [address] Creatinine 2.10(H) 0.80 - 1.30 mg/dL [facility] Comment:Testing performed by : [address] [address] Glucose 99 70 - 199 mg/dL [facility] [...] was last revised 2022. Testing performed by: [address] [address] Calcium 8.8 8.5 - 10.3 mg/dL [facility] Comment:Testing performed by : [address] [address] Bilirubin, total <0.2 0.1 - 1.2 mg/dL [facility] Comment:Testing performed by : [address] [address] Protein, pl 6.2(L) 6.5 - 8.5 g/dL [facility] Comment:Testing performed by : [address] [address] Albumin 3.7 3.5 - 5.0 g/dL [facility] Comment:Testing performed by : [address] [address] Alk phos 67 40 - 130 Units/L [facility] Comment:Testing performed by : [address] [address] ALT 11 7 - 55 Units/L [facility] Comment:Testing performed by : [address] [address] AST 15 10 - 50 Units/L [facility] Comment:Testing performed by : [address] [address] Blood 12/07/2024 9:29 AM PROFESSOR OF PSYCHIATRY 12/07/2024 9:29 AM PROFESSOR OF PSYCHIATRY Nena Oleary Jerome PHARMACEUTICAL SALES REPRESENTATIVE LAB BLOOD ORDERABLES Final Result [facility] [address] [facility] Department [place] [address] * Colonoscopy (11/17/2024 9:34 AM PROFESSOR OF PSYCHIATRY) Anatomical Region Laterality Modality Other Narrative Procedure Note Lucio Rosas MD - 11/17/2024 9:34 AM CST [facility] GI ENDOSCOPY Patient Name: Marshall Olson Procedure Date: 11/17/2024 9:34 AM Date of : 1950 Admit Type: Outpatient Age: 74 Gender: Male Attending MD: Lucio Rosas M.D. Room: [facility] ENDOSCOPY ROOM 03 Note Status: Finalized [...] The scope was passed under direct vision.The [id number] colonoscope was introduced through theanus and advanced to the cecum, identified byappendiceal orifice and ileocecal valve. The scope was passed under direct vision. The [id number] colonoscope was introduced through the and advanced [...] 4 weeks for re-treatment of radiation proctitis. Lucoi Rosas M.D. Lucio Rosas M.D. 11/17/2024 10:33:39 AM . Number of Addenda: 0 Note Initiated On: 11/17/2024 9:34 AM Recognized by the [employer] for promoting quality in endoscopy Lucio Rosas MD ENDOSCOPY PROCEDURES Final Resul t from Last 3 Months or Most Recently Relevant to Health Maintenance Insurance [facility] MEDICARE ADVANTAGE MEDICARE UHC MEDICARE ADVANTAGE MEDICARE Advance Directives For more information, please contact: [phone] * Full Code (Latest Code Status on File) Date Activated Date Inactivated Comments 01/11/2025 10:34 AM 01/12/2025 5:08 AM * Full Code Date Activated Date Inactivated Comments 12/13/2024 8:18 AM 12/13/2024 5:22 PM Care Teams Clock And Watch Hands Dipper Relationship Specialty Start Date End Date Jas Alcala MD [address] [place] [address] PCP - General Internal Medicine 01/04/25 Lucio Rosas MD [address] [address] Consulting Physician Gastroenterology 11/28/24 Bianca Hunter MD [address] [place] [address] Medical Oncologist/Marketing Manager Medical Oncology 12/07/24 Hero Pinedo MD [address] [address] Radiation Oncologist Radiation Oncology 12/28/24 Lon Tomas MD [address] [place] [address] Consulting Physician Urology 01/04/25 Jaycee Teresa MD [address] [place] [address] Consulting Physician Cardiology 01/09/25
--- OUTSIDE RECORDS SUMMARY | 2025-03-06 11:51 | XMS_ITS | Clinical Summary ---
Author Organization [facility] Address [address] [place] [address] Care Team Providers Care Panel Coverer Name Role Phone Jas Alcala MD Primary Care Provider [phone] Allergies Active Allergy Reactions Criticality Noted Date [...] (06/17/2022): Added automatically from request for surgery [id number] Family History Medical History Relation Comments Cancer [...] and Td Vaccines (1 - Tdap) 1969 Pneumococcal Vaccine: 50+ Years (1 of 1 - PCV) 01/18/2000 Zoster Vaccines (1 of 2) 01/18/2000 Annual Medicare Wellness Visit 2015 COVID-19 Vaccine ( season) 2024 11/05/2021, 10/21/2021, 01/01/2021, Additional history exists RSV Immunization or 60+ Years (1 - 1-dose 75+ series) 2025 Meningococcal B Vaccine Aged Out No l onger eligible based on patient's age to complete this topic Meningococcal Vaccine Aged Out No rufus gretta eligible based on patient's age to complete this topic RSV Immunizations Under 20 Months Aged Out No longer eligible based on patient's age to complete this topic Insurance [id number] Care Teams Panel Coverer Relationship Specialty Start Date End Date Jas Alcala MD [address] [address] PCP - General INTERNAL MEDICINE 02/11/22
--- OUTSIDE RECORDS SUMMARY | 2025-03-06 11:51 | XMS_ITS | Encounter Summary ---
Author Organization [facility] Compendium of [facility] Address [address] [place] [address] Phone Care Team Providers Care Continuous Process Rotary Drum Tanner Name Role Phone Lucio Rosas MD Unavailable Bianca Hunter MD Unavailable + [phone] Hero Pinedo MD Unavailable [phone] Jas Alcala MD Primary Care Provider + [phone] Lon Tomas MD Unavailable [phone] Jaycee Teresa MD Unavailable [phone] Reason for Visit * Reason Onset Date Comments INR results 02/27/2025 Encounter Details Date Type Department Care Team (Late st Contact Info) Description 02/27/2025 Telephone [facility] Oncology [facility] [place] [address] Bianca Hunter MD [address] [facility] [address] [place] [address] INR results Social History Tobacco Use Types Packs/Day Years Used Date Smoking Tobacco: Former Cigarettes 1 2019 Smokeless Tobacco: Never Alcohol Use Standard [...] on file 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 Alcala * Telephone Encounter - Giuliana Wolf CMA - 02/27/2025 3:01 PM CDT Eduardo from Dr. Huerta's office left a message requesting the results of Marshall's INR lab test. Could someone please provide her with this information? documented in this encounter Plan of Treatment Not on file documented as of this encounter Visit Diagnoses Not on filedocumented in this encounter Care Teams Continuous Process Rotary Drum Tanner Relationship Specialty Start Date End Date Jas Alcala MD [address] [place] [address] PCP - General Internal Medicine 01/04/25 Lucio Rosas MD [facility] [facility] [place] [address] Consulting Physician Gastroenterology 11/28/24 Bianca Hunter MD [address] [place] [address] Medical Oncologist/Sliver Former Medical Oncology 12/07/24 Hero Pinedo MD [address] [place] [address] Radiation Oncologist Radiation Oncology 12/28/24 Lon Tomas MD [address] [place] [address] Consulting Physician Urology 01/04/25 Jaycee Teresa MD [address] [place] [address] Consulting Physician Cardiology 01/09/25 documented as of this encounter
--- OUTSIDE RECORDS SUMMARY | 2025-03-06 11:51 | XMS_ITS ---
Author Organization [facility] Address [address] [place] [address] Care Team Providers Care Maintenance Planning Clerk Name Role Phone Lucio Rosas MD Unavailable Bianca Hunter MD Unavailable [phone] Hero Pinedo MD Unavailable [phone] Jas Alcala MD Primary Care Provider [phone] Lon Tomas MD Unavailable [phone] Jaycee Teresa MD Unavailable [phone] Active Problems Patient Care Coordination No te [...] He also has a history of an RI and PE. 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 -Pathology discuss in detail and all questions were answered -Refer for EUS -Refer to Oncology and Cardiothoracic surgery Miller's esophagus with high grade dysplasia Assessment & Plan (11/25/2024 9:41 AM SCRAPER HAND): EGD September 2024 with irregular Z-line and gastric ulcers. Pathology with Barretts esophagus, indefinite for dysplasia. Repeat EGD November 2024 with Barretts esophagus, pathology with high-grade dysplasia. -Continue pantoprazole 40 mg p.o. b.i.d. History of colon polyps 11/25/2024 Assessment & Plan (11/25/2024 9:42 AM SCRAPER HAND): Colonoscopy November 2024 with multiple tubular adenomas. -Repeat colonoscopy November 2027 Gastric ulcer 09/23/2024 Anemia due to blood loss 09/23/2024 Rectal bleeding 08/22/2024 Radiation proctitis 08/22/2024 Assessment & Plan (11/25/2024 9:41 AM SCRAPER HAND): Colonoscopy November 2024 with severe radiation proctitis status post APC. -Consider flex sig with APC, patient advised to call office if rectal bleeding gets worse Eosinophilia 02/22/2024 Iron deficiency anemia, unspecified 02/22/2024 Anemia 02/22/2024 VT (ventricular tachycardia) 05/09/2022 Overview (05/09/2022): Added automatically from request for surgery [id number] Lower urinary tract symptoms (LUTS) 05/24/2020 Malignant neoplasm of prostate 04/25/2013 Current Treatment and Therapy Plans Hydration Therapy Plan* Plan Start Date:02/20/2025 Plan Provider:Bianca Hunter MD Linked Problems Malignant neoplasm of lower third of esophagus (HCC) Treatment Medications No medications scheduled. Other Current Plans Adult BMT/ONC - Blood and/or Platelet Administration for Outpatient* Plan Start Date:02/22/2024 Plan Provider:Nena Cano NP Linked Problems Anemia, unspecified type Treatment Medications No medications scheduled. iron dextran (INFED) infusion* Plan Start Date:02/24/2024 Plan Provider:Nena Cano NP Linked Problems Iron deficiency anemia, unsp ecified iron deficiency anemia type Treatment Medications No medications scheduled. Past Treatment and Therapy Plans Oncology Chemotherapy Treatment Plan Name Start Date Discontinue Date Treatment Medications Discontinue Reason Plan Provider Cycles PACLItaxel / CARBOplatin Weekly with Concurrent Radiation - Esophageal 5 02/28/2025 CARBOplatin (PARAPLATIN)CAR BOplatin (PARAPLATIN) IVPB in 250 mLPACLitaxel (TAXOL)PACLItax el (TAXOL) IVPB in 250 mL Therapy Complete Bianca Hunter MD 1 of 1 cycle started Radiation Treatments (No Episode) * Course [id number]_202401/19/2025 - 02/27/2025 Treatment Period Energy Fraction Dose Fractions Total Dose Plans Planned BOOST ESOPH 02/23/2025 - 02/27/2025 180 3 / 540 INITIAL ESOPH 01/19/2025 - 02/22/2025 180 25 / 4,500 Reference Points Delivered [id number] 02/23/2025 - 02/27/2025 540 [id number] 01/19/2025 - 02/22/2025 4,500 Lifetime Dose Tracking * Chemical Lifetime Dose Automatic Entry Manual Entr y Fluoro Time 0.3 minutes 0.3 minutes 0 minutes Air kerma at the reference point (Ka,r) 2 mGy 2 mGy 0 mGy DLP 1,363 mGycm 1,363 mGycm 0 mGycm
--- OUTSIDE RECORDS SUMMARY | 2025-03-06 11:52 | XMS_ITS | Clinical Summary ---
Author Organization [facility] Address [address] [place] [address] Care Team Providers Care Animal Keeper Name Role Phone Jas Alcala MD Unavailable [phone] Jas Alcala MD Primary Care Provider Source Comments [facility],non-owned Affiliates and Associated Physician Practices is amultiple site organization consisting of ambulatory clinics and hospital sitesin [place] and [place]. This disclosure is being madepursuant to the Care Everywhere program and may not contain all information available regarding this patient. Last updated 18.[facility] Allergies Active Allergy Reactions Criticality Noted Date Comments Celecoxib 09/23/2010 Penicillins 09/23/2010 Medications * Be aware that medications may not be up to date on this document. Alwaysverify current medications with the patient. tamsulosin CR 24hr (FLOMAX) 0.4 MG capsule [...] Muscle Spasms. 30 Tab 1 10/22/2010 Active hydrocodone-rajesh taminophen (NORCO) 5-325 MG tablet Take 1 Tab [...] at Not on file Legal Sex Male 5:27 AM [employer] Gender Identity Not on file Sexual Orientation Not on file Last Filed Vital Signs Vital Sign Reading Time Taken Comments Blood Pressure 150/99 10/22/2010 2:45 PM [employer] Pulse 68 10/22/2010 2:45 PM [employer] Temperature 36.6 C (97.8 F) 10/22/2010 2:45 PM [employer] Respiratory Rate 16 10/22/2010 2:45 PM [employer] Oxygen Saturation 97% 10/22/2010 2:45 PM [employer] Inhaled Oxygen Concentration - - Weight 129.7 kg (286 lb) 10/22/2010 7:02 AM [employer] Height 182.9 cm (6') 10/22/2010 7:02 AM [employer] Body Mass Index 38.79 10/22/2010 7:02 AM [employer] Plan of Treatment Health Maintenance Due Date [...] Tdap) 1969 PNEUMOCOCCAL VACCINE 50+ (1 of 1 - PCV) 01/18/2000 ZOSTER VACCINE (1 of 2) 01/18/2000 COVID-19 VACCINE ( - 2023-2 5 season) 2024 DEPRESSION SCREENING 11/02/2024 Respiratory Syncytial Virus (RSV) Vaccine Pt: or over 60 yrs (1 - 1-dose 75+ series) 2025 INFLUENZA VACCINE (Season Ended) 2025 HEPATITIS B VACCINE Aged Out No longe r eligible based on patient's age to complete this topic HIB VACCINE Aged Out No longer eligi ble based on patient's age to complete this topic HPV VACCINE Aged Out No longer eligi ble based on patient's age to complete this topic MENINGOCOCCAL (Group B) VACC INE SHARED DECISION-MAKING Aged Out No longer eligibl e based on patient's age to complete this topic MENINGOCOCCAL GROUPS A/C/Y/W VACCINE Aged Out No longer eligible b ased on patient's age to complete this topic Advance Directives * Full Code (Latest Code Status on File) Date Activated Date Inactivated Comments 10/22/2010 2:20 PM 10/23/2010 7:05 AM Care Teams Animal Keeper Relationship Specialty Start Date End Date Jas Alcala MD [address] [place] [address] PCP - General 10/22/10 Jas Alcala MD Internal Medicine 09/23/10
--- OUTSIDE RECORDS SUMMARY | 2025-03-06 11:52 | XMS_ITS | Data Portability ---
Author Organization [facility] Address [address] [place] [address] Care Team Providers Care Sales And Marketing Assistant Name Role Phone CLEVE MARIEE Urologist KOKI HAMILTON Cooler Worker BUBBA ALCALA Primary Care Provider [phone] Assessment Encounter Date Assessment Date Assessment LastModified [...] any signs or symptoms of severe anemia [email or web address] Not available 01/04/2024 23:14:55 04/05/2024 04/05/2024 we will continue current therapy blood work is being done currently for his anemia by Hematology cardiovascular-wi se does appear to be stable does have a history of prostate into issues I believe prostate cancer as well and he is following up with that service he will follow up with me in 3 months [email or web address] Not available 05/01/2024 22:14:08 07/12/2024 07/12/2024 flu shot continu e current therapy all questions have been answered follow up in 4 months [email or web address] Not available 07/30/2024 21:44:40 12/08/2024 12/08/2024 GI to see prep for proctitis blood [...] have any signs or symptoms of severe anemia. We are bridging him with Lovenox as stated he has been very close to dose altering GFR because of this I have opted for the once daily dosing as we are only a few mL on either side of the 30 mL per hour cut off. His last dose of Coumadin was December 07 he will start Lovenox q.a.m. 1 milligram/kilogra m on December 09 he will continue that with his last dose being the morning of December 12 his procedure will be on December 13 he will restart the Lovenox when he was given the okay to do so by his endoscopist and then he will call me for further orders. If he develops any serious bleeding during the interim please report to the emergency room. He will follow up regular visit with me in 3 months he has seen Cardiology and from a cardiology standpoint he has been cleared to have the endoscopies [email or web address] Not available 12/08/2024 21:25:29 Plan of Treatment Reminders Order Date Submit Date Provider Last Modified By Organization Details Last Modified Time Details Appointments ANY 15 2024 01:15P Venkat Alcala MD Not available Not available Not available Lab PT/INR 2023 024 MERVAT Ga, 2022 Keren Gonzalez, [address], [place], [address], 12/31/2023 17:10:49 CBC w/ auto diff 2023 024 MERVAT Ga, 2022 Keren Gonzalez, [address], [place], [address], 12/31/2023 17:10:49 lipid panel, serum 2023 024 MERVAT Ga, 2022 Keren Gonzalez, [address], [place], [address], 12/31/2023 17:10:47 CMP, serum or plasma 2023 024 MERVAT Ga, 2022 Keren Gonzalez, [address], [place], [address], 12/31/2023 17:10:48 Referral None recorded . Procedures None recorded . Surgeries None recorded . Imaging None recorded . Medication Orders None recorded . Patient TargetsNo targets recorded. Patient InstructionsNo instructions recorded. Reason for Referral None Reported. Results Created Date Observation Date Name Description Value Unit Range Abnormal Flag Note LastModifiedBy Organization Detail LastModifiedTime 12/28/19 24 12/29/2023 LIPID PANEL cholesterol, total 150 mg/dL 100-19 9 Not Available [facility] [address] [place], [address], 12/31/2023 17:10:47 12/28/19 24 12/29/2023 LIPID PANEL triglyceride s 141 mg/dL 0-149 Not Available [facility] [address] [place], [address], 12/31/2023 17:10:47 12/28/19 24 12/29/2023 LIPID PANEL HDL cholesterol 57 mg/dL >39 Not Available [facility] [address] [place], [address], 12/31/2023 17:10:47 12/28/19 24 12/29/2023 LIPID PANEL VLDL cholesterol will 24 mg/dL 5-40 Not Available [facility] [address] [place], [address], 12/31/2023 17:10:47 12/28/19 24 12/29/2023 LIPID PANEL LDL chol calc (nih) 69 mg/dL 0-99 Not Available [facility] [address] [place], [address], 12/31/2023 17:10:47 12/28/19 24 12/29/2023 COMP. METAB OLIC PANEL (14) glucose 87 mg/dL 70-99 Not Available [facility] [address] [place], [address], 12/31/2023 17:10:48 12/28/19 24 12/29/2023 COMP. METAB OLIC PANEL (14) BUN 16 mg/dL 8-27 Not Available [facility] [address] [place], [address], 12/31/2023 17:10:48 12/28/19 24 12/29/2023 COMP. METAB OLIC PANEL (14) creatinine 1.71 mg/dL 0.76-1 .27 above high normal Not Available [facility] [address] [place], [address], 12/31/2023 17:10:48 12/28/19 24 12/29/2023 COMP. METAB OLIC PANEL (14) eGFR 42 mL/mi n/1.7 3 >59 below low normal Not Available [facility] [address] [place], [address], 12/31/2023 17:10:48 12/28/19 24 12/29/2023 COMP. METAB OLIC PANEL (14) BUN/creatini ne ratio 9 10-24 below low normal Not Available [facility] [address] [place], [address], 12/31/2023 17:10:48 12/28/19 24 12/29/2023 COMP. METAB OLIC PANEL (14) sodium 137 mmol/ L 134-14 4 Not Available [facility] [address] [place], [address], 12/31/2023 17:10:48 12/28/19 24 12/29/2023 COMP. METAB OLIC PANEL (14) potassium 5.0 mmol/ L 3.5-5. 2 Not Available [facility] [address] [place], [address], 12/31/2023 17:10:48 12/28/19 24 12/29/2023 COMP. METAB OLIC PANEL (14) chloride 102 mmol/ L 96-106 Not Available [facility] [address] [place], [address], 12/31/2023 17:10:48 12/28/19 24 12/29/2023 COMP. METAB OLIC PANEL (14) carbon dioxide, total 24 mmol/ L Not Available [facility] [address] [place], [address], 12/31/2023 17:10:48 12/28/19 24 12/29/2023 COMP. METAB OLIC PANEL (14) calcium 9.5 mg/dL 8.6-10 .2 Not Available [facility] [address] [place], [address], 12/31/2023 17:10:48 12/28/19 24 12/29/2023 COMP. METAB OLIC PANEL (14) protein, total 7.0 g/dL 6.0-8. 5 Not Available [facility] [address] [place], [address], 12/31/2023 17:10:48 12/28/19 24 12/29/2023 COMP. METAB OLIC PANEL (14) albumin 4.3 g/dL 3.8-4. 8 Not Available [facility] [address] [place], [address], 12/31/2023 17:10:48 12/28/19 24 12/29/2023 COMP. METAB OLIC PANEL (14) globulin, total 2.7 g/dL 1.5-4. 5 Not Available [facility] [address] [place], [address], 12/31/2023 17:10:48 12/28/19 24 12/29/2023 COMP. METAB OLIC PANEL (14) A/G ratio 1.6 1.2-2. 2 Not Available [facility] [address] [place], [address], 12/31/2023 17:10:48 12/28/19 24 12/29/2023 COMP. METAB OLIC PANEL (14) bilirubin, total 0.3 mg/dL 0.0-1. 2 Not Available [facility] [address] [place], [address], 12/31/2023 17:10:48 12/28/19 24 12/29/2023 COMP. METAB OLIC PANEL (14) alkaline phosphatase 70 IU/L 44-121 Not Available [facility] [address] [place], [address], 12/31/2023 17:10:48 12/28/19 24 12/29/2023 COMP. METAB OLIC PANEL (14) AST (SGOT) 24 IU/L 0-40 Not Available [facility] [address] [place], [address], 12/31/2023 17:10:48 12/28/19 24 12/29/2023 COMP. METAB OLIC PANEL (14) ALT (SGPT) 16 IU/L 0-44 Not Available [facility] [address] [place], [address], 12/31/2023 17:10:48 12/28/19 24 12/31/2023 PROTH ROMBI N TIME, INR prothrombin time 18.9 sec above high normal Refer ence Range : 18 years and older : 9.1 - 12.0 Not Available [facility] [address] [place], [address], 12/31/2023 17:10:49 12/28/19 24 12/31/2023 PROTH ROMBI N TIME, INR INR 1.9 ratio above high normal Refer ence Range : >1 month : 0.9 - 1.2 Not Available [facility] [address] [place], [address], 12/31/2023 17:10:49 12/28/19 24 12/29/2023 CBC WITH DIFFE RENTI AL/PL ATELE T WBC 6.3 x10e3 /uL 3.4-10 .8 Not Available [facility] [address] [place], [address], 12/31/2023 17:10:49 12/28/19 24 12/29/2023 CBC WITH DIFFE RENTI AL/PL ATELE T RBC 4.09 x10e6 /uL 4.14-5 .80 below low normal Not Available [facility] [address] [place], [address], 12/31/2023 17:10:49 12/28/19 24 12/29/2023 CBC WITH DIFFE RENTI AL/PL ATELE T hemoglobin 11.7 g/dL 13.0-1 7.7 below low normal Not Available [facility] [address] [place], [address], 12/31/2023 17:10:49 12/28/19 24 12/29/2023 CBC WITH DIFFE RENTI AL/PL ATELE T hematocrit 36.6 % 37.5-5 1.0 below low normal Not Available [facility] [address] [place], [address], 12/31/2023 17:10:49 12/28/19 24 12/29/2023 CBC WITH DIFFE RENTI AL/PL ATELE T MCV 90 fL 79-97 Not Available [facility] [address] [place], [address], 12/31/2023 17:10:49 12/28/19 24 12/29/2023 CBC WITH DIFFE RENTI AL/PL ATELE T MCH 28.6 pg 26.6-3 3.0 Not Available [facility] [address] [place], [address], 12/31/2023 17:10:49 12/28/19 12/29/2023 CBC WITH DIFFE RENTI AL/PL ATELE T MCHC 32.0 g/dL 31.5-3 5.7 Not Available [facility] [address] [place], [address], 12/31/2023 17:10:49 12/28/19 24 12/29/2023 CBC WITH DIFFE RENTI AL/PL ATELE T RDW 14.9 % 11.6-1 5.4 Not Available [facility] [address] [place], [address], 12/31/2023 17:10:49 12/28/19 24 12/29/2023 CBC WITH DIFFE RENTI AL/PL ATELE T platelets 267 x10e3 /uL 150-45 0 Not Available [facility] [address] [place], [address], 12/31/2023 17:10:49 12/28/19 24 12/29/2023 CBC WITH DIFFE RENTI AL/PL ATELE T neutrophils 43 % notest ab. Not Available [facility] [address] [place], [address], 12/31/2023 17:10:49 12/28/19 24 12/29/2023 CBC WITH DIFFE RENTI AL/PL ATELE T lymphs 24 % notest ab. Not Available [facility] [address] [place], [address], 12/31/2023 17:10:49 12/28/19 24 12/29/2023 CBC WITH DIFFE RENTI AL/PL ATELE T monocytes 12 % notest ab. Not Available [facility] [address] [place], [address], 12/31/2023 17:10:49 12/28/19 24 12/29/2023 CBC WITH DIFFE RENTI AL/PL ATELE T eos 19 % notest ab. Not Available [facility] [address] [place], [address], 12/31/2023 17:10:49 12/28/19 24 12/29/2023 CBC WITH DIFFE RENTI AL/PL ATELE T basos 1 % notest ab. Not Available [facility] [address] [place], [address], 12/31/2023 17:10:49 12/28/19 24 12/29/2023 CBC WITH DIFFE RENTI AL/PL ATELE T neutrophils (absolute) 2.8 x10e3 /uL 1.4-7. 0 Not Available [facility] [address] [place], [address], 12/31/2023 17:10:49 12/28/19 24 12/29/2023 CBC WITH DIFFE RENTI AL/PL ATELE T lymphs (absolute) 1.5 x10e3 /uL 0.7-3. 1 Not Available [facility] [address] [place], [address], 12/31/2023 17:10:49 12/28/19 24 12/29/2023 CBC WITH DIFFE RENTI AL/PL ATELE T monocytes(ab solute) 0.7 x10e3 /uL 0.1-0. 9 Not Available [facility] [address] [place], [address], 12/31/2023 17:10:49 12/28/19 24 12/29/2023 CBC WITH DIFFE RENTI AL/PL ATELE T eos (absolute) 1.2 x10e3 /uL 0.0-0. 4 above high normal Not Available [facility] [address] [place], [address], 12/31/2023 17:10:49 12/28/19 24 12/29/2023 CBC WITH DIFFE RENTI AL/PL ATELE T baso (absolute) 0.1 x10e3 /uL 0.0-0. 2 Not Available [facility] [address] [place], [address], 12/31/2023 17:10:49 12/28/19 24 12/29/2023 CBC WITH DIFFE RENTI AL/PL ATELE T immature granulocytes 1 % notest ab. Not Available [facility] [address] [place], [address], 12/31/2023 17:10:49 12/28/19 24 12/29/2023 CBC WITH DIFFE RENTI AL/PL ATELE T immature grans (abs) 0.1 x10e3 /uL 0.0-0. 1 Not Available [facility] [address] [place], [address], 12/31/2023 17:10:49 01/20/20 24 01/22/2024 Bacte tiffany ident ified in Urine by Cultu re specimen source identified URINE CLEAN CATCH SPEC DESCR IPTIO N URINE CLEAN CATCH 01/19 9:25 AM CDT [facility] Not Available Not Available 12/27/2024 22:45:46 01/20/20 24 01/22/2024 Bacte tiffany ident ified in Urine by Cultu re service comment NO SPECIA L REQUES T SPECI AL REQUE STS NO SPECI AL REQUE ST 01/19 9:25 AM CDT [facility] Not Available Not Available 12/27/2024 22:45:46 01/20/20 24 01/22/2024 Bacte tiffany ident ified in Urine by Cultu re bacteria identified in specimen by culture POLYMI CROBIA L GROWTH CONSIS TENT WITH NORMAL GENITA L AISSATOU. SUSCEP TIBILI TIES NOT ROUTIN JORGE PERFOR MED. CULTU RE RESUL T POLYM ICROB IAL GROWT H CONSI STENT WITH PRISCA L GENIT AL AISSATOU . SUSCE PTIBI LITIE S NOT ROUTI ERIS PERFO RMED. 01/21 7:34 AM CDT [facility] Not Available Not Available 12/27/2024 22:45:46 01/20/20 24 01/20/2024 Urina lysis dipst ick W Refle x Micro scopi c panel - Urine collection method - specimen URINE CLEAN CATCH Speci men Type URINE CLEAN CATCH 01/19 9:25 AM CDT [facility] Not Available Not Available 12/27/2024 22:45:46 01/20/20 24 01/20/2024 Urina lysis dipst ick W Refle x Micro scopi c panel - Urine color of urine LIGHT YELLOW COLOR (U) LIGHT YELLO W 01/19 9:50 AM CDT [facility] Not [facility] Not Available 12/27/2024 22:45:46 01/20/20 24 01/20/2024 Urina lysis dipst ick W Refle x Micro scopi c panel - Urine clarity of urine CLEAR TRANS PAREN CY CLEAR 01/19 9:50 AM CDT [facility] Not Available Not Available 12/27/2024 22:45:46 01/20/20 24 01/20/2024 Urina lysis dipst ick W Refle x Micro scopi c panel - Urine specific gravity of urine 1.019 low: 1.001h igh: 1.03 SPECI FIC GRAVI TY (U) 1.019 1.001 - 1.030 01/19 9:50 AM CDT [facility] Not Available Not Available 12/27/2024 22:45:46 01/20/20 24 01/20/2024 Urina lysis dipst ick W Refle x Micro scopi c panel - Urine pH of urine 6.5 low: 5high: 9 U PH 6.5 5.0 - 9.0 01/19 9:50 AM CDT [facility] Not Available Not Available 12/27/2024 22:45:46 01/20/20 24 01/20/2024 Urina lysis dipst ick W Refle x Micro scopi c panel - Urine leukocytes [#/volume] in urine by test strip NEGATI VE text: negati ve LEUKO CYTES (U) NEGAT SHYAM NEGAT SHYAM 01/19 9:50 AM CDT [facility] Not Available Not Available 12/27/2024 22:45:46 01/20/20 24 01/20/2024 Urina lysis dipst ick W Refle x Micro scopi c panel - Urine nitrite [presence] in urine NEGATI VE text: negati ve NITRI JEREMY NEGAT SHYAM NEGAT SHYAM 01/19 9:50 AM T [facility] Not Available Not Available 12/27/2024 22:45:46 01/20/20 24 01/20/2024 Urina lysis dipst ick W Refle x Micro scopi c panel - Urine protein [mass/volume ] in urine by test strip NEGATI VE text: <30 mg/dL PROTE IN RANDO M (U) NEGAT SHYAM <30 MG/DL 01/19 9:50 AM T [facility] Not Available Not Available 12/27/2024 22:45:46 01/20/20 24 01/20/2024 Urina lysis dipst ick W Refle x Micro scopi c panel - Urine glucose [mass/volume ] in urine NORMAL text: normal mg/dL GLUCO SE (U) PRISCA L PRISCA L MG/DL 01/19 9:50 AM CDT [facility] Not Available Not Available 12/27/2024 22:45:46 01/20/20 24 01/20/2024 Urina lysis dipst ick W Refle x Micro scopi c panel - Urine ketones [mass/volume ] in urine by test strip NEGATI VE text: negati ve mg/dL KETON ES (U) NEGAT SHYAM NEGAT SHYAM MG/DL 01/19 9:50 AM CDT [facility] Not Available Not Available 12/27/2024 22:45:46 01/20/20 24 01/20/2024 Urina lysis dipst ick W Refle x Micro scopi c panel - Urine urobilinogen [units/volum e] in urine by test strip NORMAL text: normal mg/dL UROBI LINOG EN PRISCA L PRISCA L MG/DL 01/19 9:50 AM CD[facility] Not Available Not Available 12/27/2024 22:45:46 01/20/20 24 01/20/2024 Urina lysis dipst ick W Refle x Micro scopi c panel - Urine bilirubin.to allen [mass/volume ] in urine NEGATI VE text: negati ve mg/dL BILIR UBIN (U) NEGAT SHYAM NEGAT SHYAM MG/DL 01/19 9:50 AM CDT [facility] Not Available Not Available 12/27/2024 22:45:46 01/20/20 24 01/20/2024 Urina lysis dipst ick W Refle x Micro scopi c panel - Urine erythrocytes [#/volume] in urine by automated test strip NEGATI VE text: negati ve BLOOD (U) NEGAT SHYAM NEGAT SHYAM 01/19 9:50 AM CDT [facility] Not Available Not Available 12/27/2024 22:45:46 01/20/20 24 01/20/2024 aPTT in Plate let poor plasm a by Coagu latio n assay APTT in platelet poor plasma by coagulation assay 44.7 text: 25.1 - 36.5 sec high PTT 44.7 (H) 25.1 - 36.5 SEC 01/19 10:17 AM CDT [facility] Not Available Not Available 12/27/2024 22:45:46 01/20/20 24 01/20/2024 aPTT in Plate let poor plasm a by Coagu latio n assay interpretati on and review of laboratory results Abnorm al Not Available Not Available 22:45:46 01/20/20 24 01/20/2024 Proth rombi n time (PT) prothrombin time (PT) 23 text: 10.2 - 12.9 sec high PROTI ME 23.0 (H) 10.2 - 12.9 SEC 01/19 10:17 AM CDT [facility] Not Available Not Available 12/27/2024 22:45:46 01/20/20 24 01/20/2024 Proth rombi n time (PT) INR in platelet poor plasma by coagulation assay 2 INR 2.0 01/19 10:17 AM CDT [facility] Not Available Not Available 12/27/2024 22:45:46 01/20/20 24 01/20/2024 Proth rombi n time (PT) interpretati on and review of laboratory results Abnorm al Not Available Not Available 22:45:46 01/20/20 24 01/20/2024 CBC W Auto Diffe renti al panel - Blood leukocytes [#/volume] in blood by automated count 5.08 text: 4.5 - 11.0 x10'3/ uL WBC 5.08 4.5 - 11.0 x10'3 /uL 01/19 10:15 AM CDT [facility] Not Available Not Available 12/27/2024 22:45:45 01/20/20 24 01/20/2024 CBC W Auto Diffe renti al panel - Blood erythrocytes [#/volume] in blood by automated count 3.22 text: 4.70 - 6.10 x10'6/ uL low RBC 3.22 (L) 4.70 - 6.10 x10'6 /uL 01/19 10:15 AM CDT [facility] Not Available Not Available 12/27/2024 22:45:45 01/20/20 24 01/20/2024 CBC W Auto Diffe renti al panel - Blood hemoglobin [mass/volume ] in blood 8.8 text: 14.0 - 18.0 g/dL low HGB 8.8 (L) 14.0 - 18.0 G/DL 01/19 10:15 AM CDT [facility] Not Available Not Available 12/27/2024 22:45:45 01/20/20 24 01/20/2024 CBC W Auto Diffe renti al panel - Blood hematocrit [volume fraction] of blood 29.6 % low: 43%hig h: 54% low HCT 29.6 (L) 43.0 - 54.0 % 01/19 10:15 AM CDT [facility] Not Available Not Available 12/27/2024 22:45:45 01/20/20 24 01/20/2024 CBC W Auto Diffe renti al panel - Blood MCV [entitic volume] 91.9 text: 80.0 - 94.0 fL MCV 91.9 80.0 - 94.0 FL 01/19 10:15 AM CDT [facility] Not Available Not Available 12/27/2024 22:45:45 01/20/20 24 01/20/2024 CBC W Auto Diffe renti al panel - Blood MCH [entitic mass] 27.3 pg low: 27pghi gh: 31pg MCH 27.3 27.0 - 31.0 PG 01/19 10:15 AM CDT [facility] Not Available Not Available 12/27/2024 22:45:45 01/20/20 24 01/20/2024 CBC W Auto Diffe renti al panel - Blood MCHC [mass/volume ] 29.7 text: 32.0 - 36.0 g/dL low MCHC 29.7 (L) 32.0 - 36.0 G/DL 01/19 10:15 AM CDT [facility] Not Available Not Available 12/27/2024 22:45:45 01/20/20 24 01/20/2024 CBC W Auto Diffe renti al panel - Blood erythrocyte distribution width [entitic volume] by automated count 16.3 % low: 11.5%h igh: 14.5% high RDW 16.3 (H) 11.5 - 14.5 % 01/19 10:15 AM CDT [facility] Not Available Not Available 12/27/2024 22:45:45 01/20/20 24 01/20/2024 CBC W Auto Diffe renti al panel - Blood platelets [#/volume] in blood 361 text: 130 - 400 x10'3/ uL PLT 361 130 - 400 x10'3 /uL 01/19 10:15 AM CDT [facility] Not Available Not Available 12/27/2024 22:45:45 01/20/20 24 01/20/2024 CBC W Auto Diffe renti al panel - Blood platelet mean volume [entitic volume] in blood 8.6 text: 9.3 - 12.2 fL low MPV 8.6 (L) 9.3 - 12.2 FL 01/19 10:15 AM CDT [facility] Not Available Not Available 12/27/2024 22:45:45 01/20/20 24 01/20/2024 CBC W Auto Diffe renti al panel - Blood differential cell count method - blood AUTOMA MYRTLE DIFFER ENTIAL DIFFE RENTI AL TYPE AUTOM ATED DIFFE RENTI AL 01/19 10:15 AM CDT [facility] Not Available Not Available 12/27/2024 22:45:45 01/20/20 24 01/20/2024 CBC W Auto Diffe renti al panel - Blood neutrophils/ 100 leukocytes in blood by automated count 52.3 % NEUTR OPHIL S 52.3 % 01/19 10:15 AM CDT [facility] Not Available Not Available 12/27/2024 22:45:45 01/20/20 24 01/20/2024 CBC W Auto Diffe renti al panel - Blood lymphocytes/ 100 leukocytes in blood by automated count 20.9 % LYMPH OCYTE S 20.9 % 01/19 10:15 AM CDT [facility] Not Available Not Available 12/27/2024 22:45:45 01/20/20 24 01/20/2024 CBC W Auto Diffe renti al panel - Blood monocytes/10 0 leukocytes in blood by automated count 12.6 % MONOC YTES 12.6 % 01/19 10:15 AM CDT [facility] Not Available Not Available 12/27/2024 22:45:45 01/20/20 24 01/20/2024 CBC W Auto Diffe renti al panel - Blood eosinophils/ 100 leukocytes in blood by automated count 12.2 % EOSIN OPHIL S 12.2 % 01/19 10:15 AM CDT [facility] Not Available Not Available 12/27/2024 22:45:45 01/20/20 24 01/20/2024 CBC W Auto Diffe renti al panel - Blood basophils/10 0 leukocytes in blood by automated count 1.6 % BASOP HILS 1.6 % 01/19 10:15 AM CDT [facility] Not Available Not Available 12/27/2024 22:45:45 01/20/20 24 01/20/2024 CBC W Auto Diffe renti al panel - Blood immature granulocytes /100 leukocytes in blood by automated count 0.4 % IMMAT URE GRANS 0.4 % 01/19 10:15 AM CDT [facility] Not Available Not Available 12/27/2024 22:45:45 01/20/20 24 01/20/2024 CBC W Auto Diffe renti al panel - Blood neutrophils [#/volume] in blood 2.66 text: 1.80 - 7.70 x10'3/ uL ABS. NEUTR OPHIL S 2.66 1.80 - 7.70 x10'3 /uL 01/19 10:15 AM CDT [facility] Not Available Not Available 12/27/2024 22:45:45 01/20/20 24 01/20/2024 CBC W Auto Diffe renti al panel - Blood lymphocytes [#/volume] in blood 1.06 text: 1.00 - 4.80 x10'3/ uL ABS. LYMPH OCYTE S 1.06 1.00 - 4.80 x10'3 /uL 01/19 10:15 AM CDT [facility] Not Available Not Available 12/27/2024 22:45:45 01/20/20 24 01/20/2024 CBC W Auto Diffe renti al panel - Blood monocytes [#/volume] in blood 0.64 text: 0.30 - 0.82 x10'3/ uL ABS. MONOC YTES 0.64 0.30 - 0.82 x10'3 /uL 01/19 10:15 AM CDT [facility] Not Available Not Available 12/27/2024 22:45:45 01/20/20 24 01/20/2024 CBC W Auto Diffe renti al panel - Blood eosinophils [#/volume] in blood 0.62 text: 0.04 - 0.54 x10'3/ uL high ABS. EOSIN OPHIL S 0.62 (H) 0.04 - 0.54 x10'3 /uL 01/19 10:15 AM CDT [facility] Not Available Not Available 12/27/2024 22:45:45 01/20/20 24 01/20/2024 CBC W Auto Diffe renti al panel - Blood basophils [#/volume] in blood 0.08 text: 0.01 - 0.08 x10'3/ uL ABS. BASOP HILS 0.08 0.01 - 0.08 x10'3 /uL 01/19 10:15 AM CDT [facility] Not Available Not Available 12/27/2024 22:45:45 01/20/20 24 01/20/2024 CBC W Auto Diffe renti al panel - Blood immature granulocytes [#/volume] in blood 0.02 text: 0.00 - 0.49 x10'3/ uL ABS. IMMAT URE GRANU LOCYT ES 0.02 0.00 - 0.49 x10'3 /uL 01/19 10:15 AM CD[facility] Not Available Not Available 12/27/2024 22:45:45 01/20/20 24 01/20/2024 CBC W Auto Diffe renti al panel - Blood interpretati on and review of laboratory results Abnorm al Not Available Not Available 22:45:45 01/26/20 24 01/26/2024 aPTT in Plate let poor plasm a by [place] assay APTT in platelet poor plasma by coagulation assay 37.4 text: 25.1 - 36.5 sec high PTT 37.4 (H) 25.1 - 36.5 SEC 01/25 11:20 AM CDT [facility] Not Available Not Available 12/27/2024 22:45:49 01/26/20 24 01/26/2024 aPTT in Plate let poor plasm a by [place] assay interpretati on and review of laboratory results Abnorm al Not Available Not Available 22:45:49 01/26/20 24 01/26/2024 Proth rombi n time (PT) prothrombin time (PT) 16.2 text: 10.2 - 12.9 sec high PROTI ME 16.2 (H) 10.2 - 12.9 SEC 01/25 11:20 AM CDT [facility] Not Available Not Available 12/27/2024 22:45:49 01/26/20 24 01/26/2024 Proth rombi n time (PT) INR in platelet poor plasma by coagulation assay 1.4 INR 1.4 01/25 11:20 AM CDT [facility] Not Available Not Available 12/27/2024 22:45:49 01/26/20 24 01/26/2024 Proth rombi n time (PT) interpretati on and review of laboratory results Abnorm al Not Available Not Available 22:45:49 01/26/20 24 01/29/2024 [facility] [address] [place] [address] Teleph one: [phone], extens ion [id number] Pathol ogy Report Surgic al Pathol ogy Report Name: BRENNEN OLSON en #: [id number] Age: [birth year] (Age: 74) Locati on: [facility] Sex: M Proced ure Date: Hospit al #: [id number] Date Receiv ed: Date Report ed: Provid er: CLEVE MARIEE MD Source : Martínez r, biopsy Clinic al Histor y: Micros copic hematu tiffany and bulbou s urethr al strict ure. Gross Descri ption: Receiv ed in formal in, labele d with a patien t label and as bladd er biopsy is a 0.3 cm strip of delica te pink-w cyrus tissue . The specim en is entire ly submit myrtle in casset te 1. The report ed immuno histoc hemist ry test(s ) was develo ped and its perfor blayne charac terist ics determ ined by [facility] Cesar meraz. It has not been cleare d or approv ed by the U.S. Food and Drug Admini strati on. Ayan singh, the use of Analyt e Specif ic Reagen ts does not requir e FDA approv al. Gross examin ation (when applic able), interp retati on, and sign out were perfor med at [facility], [address] [place] [address]. FINAL DIAGNO SIS: MARTÍNEZ R, BIOPSY : - BENIGN UROTHE LIUM WITH MILD INFLAM MATION AND REACTI VE CHANGE . - NO IN SITU OR INVASI VE CARCIN BRIAN IDENTI FIED. - SEE COMMEN T. Diagno sis Commen t: Immuno histoc hemica l stain for kerati n AE1/AE 3 was perfor med to evalua te slight ly atypic al cells within the stroma . These cells are negati ve for kerati n and are consis tent with reacti ve fibrob lasts. No malign yaniv is identi fied. Elec tronic ally Signed Out LINDA Bergman MD PATHO LOGY [facility] t[facility] of Labor ator Medic ine [address] [place] [address] Telep leia: , exten natacha 07 Patho logy Repor t Surgi will Patho logy Repor t Name: TANYA OLSON Speci men #: [id number] Age: [id number] (Age: 74) Locat ion: [facility] S Sex: M Proce dure Date: 2023 Hospi allen #: [id number] Date Recei ani: 2023 Date Repor myrtle: 2023 Provi peggy: CLEVE MARIEE MD [facility] e: Bladd er, biops y Clini will Histo ry: Micro scopi c hemat uria and bulbo us ureth ral stric ture. Gross Descr iptio n: Recei ani in forma jose, label ed with a patie nt label and as blad peggy biops y is a 0.3 cm strip of delic ate pink- white tissu e. The speci men is entir jorge submi tted in casse tte 1. The repor myrtle immun ohist ochem istry test( s) was devel oped and its perfo rmanc e luisito cteri stics deter mined by [facility] . It has not been clear ed or appro ani by the U.S. Food and Drug Admin istra tion. Howev er, the use of Lauren te Speci fic Reage nts does not requi re FDA appro luis. Gross exami natio n (when appli cable ), inter preta tion, and sign out were perfo rmed at [facility], [address], [place] [address] . FINAL DIAGN OSIS: BLADD ER, BIOPS Y: - BENIG N UROTH ELIUM WITH MILD INFLA MMATI ON AND REACT SHYAM MORA E. - NO IN SITU OR INVAS SHYAM CARCI NOMA IDENT IFIED . - SEE COMME NT. Diagn osis Comme nt: Immun ohist ochem ical stain for kerat in AE1/A E3 was perfo rmed to evalu ate sligh tly atypi will cells withi n the yelena a. These cells are negat shyam for kerat in and are consi stent with react shyam fibro blast s. No katherine bethea is ident ified . Sallie ctron icall y Jackie d Out JOHN NORTON MD [facility] Not Available Not Available 12/27/2024 22:45:49 02/01/20 24 02/04/2024 PROTH ROMBI N TIME, INR prothrombin time 22.0 sec above high normal Refer ence Range : 18 years and older : 9.1 - 12.0 Not Available [facility] [address] [place], [address], 02/04/2024 12:44:03 02/01/20 24 02/04/2024 PROTH ROMBI N TIME, INR INR 2.2 ratio above high normal Refer ence Range : >1 month : 0.9 - 1.2 Not Available [facility] [address] [facility], [place], [address], 02/04/2024 12:44:03 12/19/19 25 12/20/2024 BASIC METAB OLIC PANEL (7) glucose 122 mg/dL 70-99 above high normal Not Available [facility] ([facility]) [address] [place], [address], 12/20/2024 09:08:30 12/19/1912/20/2024 BASIC METAB OLIC PANEL (7) BUN 13 mg/dL 8-27 Not Available [facility] ([facility]) [address] [place], [address], 12/20/2024 09:08:30 12/19/19 25 12/20/2024 BASIC METAB OLIC PANEL (7) creatinine 1.81 mg/dL 0.76-1 .27 above high normal Not Available [facility] ([facility]) [address] [facility] [place], [address], 12/20/2024 09:08:30 12/19/1912/20/2024 BASIC METAB OLIC PANEL (7) eGFR 39 mL/mi n/1.7 3 >59 below low normal Not Available [facility] ([facility]) [address] [place], [address], 12/20/2024 09:08:30 12/19/19 25 12/20/2024 BASIC METAB OLIC PANEL (7) BUN/creatini ne ratio 7 10-24 below low normal Not Available [facility] ([facility]) [address] [place], [address], 12/20/2024 09:08:30 12/19/1912/20/2024 BASIC METAB OLIC PANEL (7) sodium 139 mmol/ L 134-14 4 Not Available [facility] ([facility]) [address] [place], [address], 12/20/2024 09:08:30 12/19/1912/20/2024 BASIC METAB OLIC PANEL (7) potassium 4.5 mmol/ L 3.5-5. 2 Not Available [facility] ([facility]) [address] [place], [address], 12/20/2024 09:08:30 12/19/1912/20/2024 BASIC METAB OLIC PANEL (7) chloride 108 mmol/ L 96-106 above high normal Not Available [facility] ([facility]) [address] [place], [address], 12/20/2024 09:08:30 12/19/1912/20/2024 BASIC METAB OLIC PANEL (7) carbon dioxide, total 19 mmol/ L 20-29 below low normal Not Available [facility] ([facility]) [address] [place], [address], 12/20/2024 09:08:30 12/19/1912/20/2024 PROTH ROMBI N TIME (PT) INR 1.3 0.9-1. 2 above high normal Refer ence inter luis is for non-a ntico agula myrtle patie nts. Sugge sted INR thera peuti c range for Vitam in K antag onist thera py: Stand christiano Dose (mode rate inten sity thera peuti c range ): 2.0 - 3.0 Highe r inten sity thera peuti c range 2.5 - 3.5 Not Available [facility] ([facility]) [address] [place], [address], 12/20/2024 09:08:32 12/19/1912/20/2024 PROTH ROMBI N TIME (PT) prothrombin time 13.6 sec 9.1-12 .0 above high normal Not Available [facility] ([facility]) [address] [place], [address], 12/20/2024 09:08:32 12/19/1912/20/2024 CBC, PLATE LET, NO DIFFE RENTI AL WBC 4.6 x10e3 /uL 3.4-10 .8 Not Available [facility] ([facility]) [address] [place], [address], 12/20/2024 09:08:33 12/19/1912/20/2024 CBC, PLATE LET, NO DIFFE RENTI AL RBC 3.10 x10e6 /uL 4.14-5 .80 below low normal Not Available [facility] ([facility]) [address] [place], [address], 12/20/2024 09:08:33 12/19/1912/20/2024 CBC, PLATE LET, NO DIFFE RENTI AL hemoglobin 9.1 g/dL 13.0-1 7.7 below low normal Not Available [facility] ([facility]) [address] [place], [address], 12/20/2024 09:08:33 12/19/1912/20/2024 CBC, PLATE LET, NO DIFFE RENTI AL hematocrit 30.5 % 37.5-5 1.0 below low normal Not Available [facility] ([facility]) [address] [place], [address], 12/20/2024 09:08:33 12/19/1912/20/2024 CBC, PLATE LET, NO DIFFE RENTI AL MCV 98 fL 79-97 above high normal Not Available [facility] ([facility]) [address] [place], [address], 12/20/2024 09:08:33 12/19/1912/20/2024 CBC, PLATE LET, NO DIFFE RENTI AL MCH 29.4 pg 26.6-3 3.0 Not Available [facility] ([facility]) [address], [place], [address], 12/20/2024 09:08:33 12/19/1912/20/2024 CBC, PLATE LET, NO DIFFE RENTI AL MCHC 29.8 g/dL 31.5-3 5.7 below low normal Not Available [facility] ([facility]) [address] [place], [address], 12/20/2024 09:08:33 12/19/1912/20/2024 CBC, PLATE LET, NO DIFFE RENTI AL RDW 14.6 % 11.6-1 5.4 Not Available [facility] ([facility]) [address] [place], [address], 12/20/2024 09:08:33 12/19/1912/20/2024 CBC, PLATE LET, NO DIFFE RENTI AL platelets 300 x10e3 /uL 150-45 0 Not Available [facility] ([facility]) [address] [place], [address], 12/20/2024 09:08:33 12/16/19 24 11/20/2023 colon oscop y proce dure (PROC ) No observ ation record ed. [address], [place], [address], 12/16/2023 17:16:27 01/21/20 24 01/21/2024 US, echo ardio gram No observ ation record ed. [facility] [address], [place], [address], 01/25/2024 15:02:21 01/07/20 25 01/06/2025 cardi ac stres s test No observ ation record ed. [address], [address], 01/18/2025 17:00:56 01/19/20 25 01/06/2025 adeno sine stres s test (PROC ) No observ ation record ed. [address], [address], 01/19/2025 17:33:35 02/03/20 25 01/05/2025 PFT, compl ete No observ ation record ed. [address], [address], 02/02/2025 17:00:46 Result Notes None recorded. Problems Name Problem SNOMED Code Status Onset Date Resolution Date Notes Provider Name and Address Organization Details Recorded Time Gastroesophage al reflux disease without esophagitis 917041192 Active 2023 Bubba Alcala MD Attn: Fred daly,[address] [facility], [place], [address], [facility] 22:09:46 Dyslipidemia 455731475 Active 2023 Bubba Alcala MD Attn: Fred daly,[address] [facility], [place], [address], [place] - [facility] 4 22:09:47 Chronic anemia 412665534 Active 2023 Bubba Alcala MD Attn: Fred daly,[address] [facility], [place], [address], [place] [facility] 4 22:09:50 Inflammatory bowel disease 05490612 Active 2023 Bubba Alcala MD Attn: Fred daly,[address] [facility], [place], [address], [place] [facility] 4 22:09:52 History of pulmonary embolus 409820718 Active 2023 Bubba Alcala MD Attn: Fred daly,[address] [facility], [place], [address], [place] [facility] 4 22:12:55 History of malignant neoplasm of prostate 847537424 Active 2023 Bubba Alcala MD Attn: Delvinmckayla daly,[address] [facility], [place], [address], [place] [facility] 4 22:14:37 Cervical spondylosis 497321139 Active 2023 Bubba Alcala MD Attn: Fred daly,[address] [facility], [place], [address], [place] [facility] 4 21:43:45 Problem Notes None recorded. Procedures Surgical History Date Name Laterality Status Provider Name and Address Organization Details Recorded Time colonoscopy completed Scarlett Louis MA [place] - [facility] 12/08/2024 16:02:50 endoscopy completed Scarlett Louis MA [place] - [facility] 12/08/2024 16:02:58 Imaging Results Imaging Date Name Status LastModified by Organization Details LastModified Time 11/20/2023 colonoscopy procedure (PROC) completed [id number] [place] [address] [address] [place], [address], 12/16/2023 17:16:27 01/21/2024 US, echocardiogram completed [facility] [address], [place], [address], 01/25/2024 15:02:21 01/06/2025 cardiac stress test completed [address], [address], 01/18/2025 17:00:56 01/06/2025 adenosine stress test (PROC) completed [address], [address], 01/19/2025 17:33:35 01/05/2025 PFT, complete completed [address], [address], 02/02/2025 17:00:46 Procedure Notes None recorded. Medical Equipment None Reported. Allergies Allergen ID Allergen Name Allergen Category Reaction Reaction Severity Criticality Documentation Date Start Date Code Code System Note Provider Name and Address Organization Details Recorded Time 070703 amoxicill in medicatio n hives Not available Not available 12/28/2023 723 RxNorm NORA [place], [place] - [facility] 4 16:18:47 292044 Farxiga medicatio n Not available Not available Not available 12/28/2023 01383 72 RxNorm peria nal rash NORA [place], [place] - [facility] 4 16:19:36 995971 Celebrex medicatio n hives Not available Not available 12/28/2023 09887 7 RxNorm NORA [place] [facility] 4 16:19:58 444439 Lyrica medicatio n Not available Not available Not available 12/28/2023 36252 1 RxNorm blurr y visio NORA [place], [place] - [facility] 4 16:20:09 Medications Name Sig Start Date Stop Date Status Note LastModified by Organization Details LastModified Time prednisone 10 mg tablet TAKE 1 TAB BY MOUTH 3 TIMES A DAY X 3 DAYS, 1 TAB 2 TIMES A DAY X 2 DAYS, 1 TAB ONCE A DAY X 1 DAY 03/04 /2024 completed Not Available Not Available Not Available [...] Updated DateTime 4 181.61 cm 40 kg/m2 741535. 58 g 81 /min 14 /min 97.7 [degF] 97 % 97 % 138 mm[Hg] 82 mm[Hg] 126 mm[Hg] 72 mm[Hg] NORA Cadet [facility] 4 16:19:07 Date Recorded Body height Body mass index (BMI) Body weight Heart rate Oxygen saturation Oxygen saturation in Arterial blood by Pulse oximetry Systolic blood pressure Diastolic blood pressure Provider Name and Address Organization Details Last Updated DateTime 4 181.61 cm 39.5 kg/m2 052461. 45 g 64 /min 99 % 99 % 122 mm[Hg] 74 mm[Hg] Puja Beckwith MA [facility] 4 15:58:12 Date Recorded Body height Body mass index (BMI) Body weight Heart rate Oxygen saturation Oxygen saturation in Arterial blood by Pulse oximetry Systolic blood pressure Diastolic blood pressure Provider Name and Address Organization Details Last Updated DateTime 4 181.61 cm 39.9 kg/m2 518865. 47 g 62 /min 99 % 99 % 126 mm[Hg] 68 mm[Hg] Sherine Hammonds MA [facility] 4 14:52:37 Date Recorded Body height Body mass index (BMI) Body weight Oxygen saturation Oxygen saturation in Arterial blood by Pulse oximetry Heart rate Systolic blood pressure Diastolic blood pressure Provider Name and Address Organization Details Last Updated DateTime 5 181.61 cm 38.8 kg/m2 690028. 69 g 97 % 97 % 64 /min 120 mm[Hg] 78 mm[Hg] Scarlett Louis MA [facility] 5 16:07:53 Social History Question Answer Notes LastModified by Organizat ion Details LastModified Time Tobacco Smoking Status Former Smoker Ingris Yost, NORA null, [facility] 12/28/2023 16:20:38 What Was The Date Of Your Most Recent Tobacco Screening? 07/12/2024 crevisma Information not available 07/12/2024 What Is Your Current Pack Years? 30ormorepac kyears Information not available 12/28/2023 At What Age [...] Response Coronary Artery Disease Y Other N Atrial Fibrillation N High Blood Pressure N Thyroid Problems N Kidney or Bladder Problems Y Depression N COPD N Blood Clots Y GI Problems Y Have you had a mammogram in the last yea r? N Skin Problems N Anemia Y Heart Attack (ID) Y Diabetes N Anxiety Disorder N Muscle, Joint, or Bone Problems Y Seizures/Epilepsy N Have you had a colonoscopy in the last 1 0 years? Y Acid Reflux (GERD) Y Cancer Y Stroke N Allergies Y Asthma N Have you had a PSA blood test in the las t year? N High Cholesterol Y Hepatitis N Liver Disease N Headaches N Osteoporosis N Heart Failure Y Immunizations Vaccine Type Date Status Note Provider Nam e and Address Organization Details Recorded Time Influenza, high-dose, quadrivalent, PF 3 completed Emily [place], [place] [facility] 11/17/2024 11:46:12 Influenza, high-dose, quadrivalent, PF 2 completed [place] [facility] 11/17/2024 11:46:12 Influenza, high-dose, quadrivalent, PF 1 completed [place] [facility] 11/17/2024 11:46:12 COVID-19, mRNA, LNP-S, PF, 100 mcg/0.5mL dose or 50 mcg/0.25mL dose 2 completed [place] [facility] 11/17/2024 11:46:12 COVID-19, mRNA, LNP-S, PF, 100 mcg/0.5mL dose or 50 mcg/0.25mL dose 1 completed [place] [facility] 11/17/2024 11:46:12 COVID-19, mRNA, LNP-S, PF, 100 mcg/0.5mL dose or 50 mcg/0.25mL dose 1 completed [place] [facility] 11/17/2024 11:46:12 COVID-19, mRNA, LNP-S, PF, 100 mcg/0.5mL dose or 50 mcg/0.25mL dose 1 completed [place] [facility] 11/17/2024 11:46:12 influenza, unspecified formulation 8 completed [place] [facility] 11/17/2024 11:46:12 influenza, unspecified formulation 4 completed [place] [facility] 11/17/2024 11:46:13 Influenza, high-dose, trivalent, PF 8 completed [place] [facility] 11/17/2024 11:46:13 Influenza, high-dose, trivalent, PF 9 completed [place] [facility] 11/17/2024 11:46:13 Influenza, high-dose, trivalent, PF 7 completed [place] [facility] 11/17/2024 11:46:13 Influenza, split virus, trivalent, preservative 3 completed [place] [facility] 11/17/2024 11:46:13 Influenza, split virus, quadrivalent, PF 5 completed [place] [facility] 11/17/2024 11:46:13 Pneumococcal conjugate PCV20, polysaccharide RBD650 conjugate, adjuvant, PF 4 completed Bubba Alcala MD Attn: Accounting,[address] [place], [address], [place] [facility] 05/01/2024 22:07:26 Influenza, high-dose, trivalent, PF 4 completed Bubba Alcala MD Attn: Accounting,[address] [place], [address], [place] [facility] 07/30/2024 21:41:48 Past Encounters Encounter ID Performer Location Encounter Start Date Encounter Closed Date Diagnosis/Indication Diagnosis SNOMED-CT Code Diagnosis ICD10 Code Diagnosis Note [id number] Bubba Alcala MD [facility] (Adult Med) [address] [place] [phone] 12/28/2023 15:33:31 12/28/2023 17:03:34 Proctitis 3021203 K62.89 Anticoagulant therapy 18 2575749 Z79.01 Hyperlipidemia 20993609 E78.5 Long-term drug therapy 370814155 Z79.899 Nonischemi c congestive cardiomyopathy 4621268318 04 I42.0 History of malignant neoplasm of prostate 142927743 Z85.46 Chronic ki dney disease stage 3 393184623 N18.30 Ventricula r tachycardia 94097701 I47.20 [id number] Bubba Alcala MD [facility] (Adult Med) [address] [place] [phone] 04/05/2024 15:47:26 04/05/2024 17:08:10 Administration of pneumococcal vaccine 68194171 Z23 Gastroesop hageal reflux disease without esophagitis 671985946 K21.9 Dyslipidemia 034896383 E 78.5 Chronic anemia 260231233 D64.9 Inflammato ry bowel disease 32842180 K52.9 History of pulmonary embolus 689229710 Z86.711 History of malignant neoplasm of prostate 856042700 Z85.46 [id number] Bubba Alcala MD [facility] (Adult [facility]) [address] [place] [phone] 07/12/2024 14:26:22 07/12/2024 15:52:19 Body mass index 30+ - obesity 198220987 Z68.39 BMI 39.9 Administra tion of influenza vaccine 17061865 Z23 Dyslipidemia 089964127 E 78.5 Chronic anemia 332970435 D64.9 Gastroesop hageal reflux disease without esophagitis 291947400 K21.9 Cervical spondylosis 387 605809 M47.425 [id number] Bubba Alcala MD [facility] [address] [place] [address] 12/08/2024 15:00:29 12/08/2024 16:45:43 Body mass index 30+ - obesity 148754820 Z68.39 BMI 39.9 Chronic anemia 387190851 D64.9 Gastroesop hageal reflux disease without esophagitis 842338538 K21.9 Dyslipidemia 770684944 E 78.5 Proctitis 9226381 K62.89 Anticoagulant therapy 18 1383143 Z79.01 Hyperlipidemia 21303336 E78.5 Long-term drug therapy 920646915 Z79.899 Nonischemi c congestive cardiomyopathy 6681734532 04 I42.0 History of malignant neoplasm of prostate 847356408 Z85.46 Chronic ki dney disease stage 3 448289644 N18.30 Ventricula r tachycardia 79995314 I47.20 History of pulmonary embolus 399423784 Z86.711 Health Concerns Section Related Observation LastModified by Organization Detai ls LastModified Time None Recorded Concern Status LastModified by Organization Details LastModified Time None Recorded Advance Directives Directive None Recorded Payers Encounter Date Sequence Insurance Name Policy Number Policy Abbasi Covered Member ID Abbasi Member ID Guarantor Name 12/28/2023 1 [facility] (MEDICARE REPLACEMENT/A DVANTAGE - HMO) [id number] Brennen Olson [id number] [facility] 04/05/2024 1 [facility] (MEDICARE REPLACEMENT/A DVANTAGE - HMO) [id number] Brennen Olson [id number] [facility] 07/12/2024 1 [facility] (MEDICARE REPLACEMENT/A DVANTAGE - HMO) [id number] Brennen Olson [id number] [facility] 12/08/2024 1 [facility] (MEDICARE REPLACEMENT/A DVANTAGE - HMO) [id number] Brennen Olson [id number] [facility] Notes Date Note Type Note Provider Name [...] not having any myelopathy types ofRhinitis stable Puja Beck[place], [place] [facility] 02/12/2024 14:18:09 04/05/2024 text/html 74-year-old foll ow [...] pain Bubba Alcala MD Attn: Accounting[address] [place], [address], [place] [facility] 05/01/2024 22:15:04 07/12/2024 text/html chronic anemia h e has does not have any symptoms at this time GERD no nausea no vomiting chronic neck pain has been stable dyslipidemia trying to watch his diet history of PE no cardiopulmonary symptoms today still has some bleeding from radiation proctitis Bubba Alcala MD Attn: Accounting[address] [place], [address], [place] [facility] 07/30/2024 21:45:03 12/08/2024 text/html anemia he receiv ed a unit of blood tells me his hemoglobin is 9.5 now no active bleeding he is getting a upper endoscopy on December 13. He has had elevated creatinine GFR between 30 and 35. 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
== END 2025-03-06 10:52 | disposition home or self-care (01) ==
LOC: ANHLAB 10:51
PROVIDERS: PCP Internal Medicine; Visit Provider Internal Medicine
DX: Z79.01 Long term (current) use of anticoagulants (principal)
CPT/HCPCS: 36415; 85610

== ENCOUNTER 2025-03-13 10:59 | Outpatient (CLI) | payer MEDICARE, SELFPAY ==
--- OUTSIDE RECORDS SUMMARY | 2025-03-13 11:20 | XMS_ITS | Clinical Summary ---
Author Organization [facility] Address [address] [place] [address] Phone Care Team Providers Care Web Marketing Analyst Name Role Phone Jas Alcala MD Primary Care Provider Allergies Active Allergy Reactions Criticality Noted Date [...] on file Legal Sex Male 3:47 PM VESSEL WELDER Gender Identity Not on file Sexual Orientation Not on file Last Filed Vital Signs Vital Sign Reading Time Taken Comments Blood Pressure 142/62 12/29/2019 2:51 PM VESSEL WELDER Pulse 62 12/29/2019 2:51 PM VESSEL WELDER Temperature 36.4 C (97.6 F) 12/29/2019 2:51 PM VESSEL WELDER Respiratory Rate 18 12/29/2019 2:51 PM VESSEL WELDER Oxygen Saturation 99% 12/29/2019 2:51 PM VESSEL WELDER Inhaled Oxygen Concentration - - Weight 137 kg (302 lb) 12/29/2019 2:51 PM VESSEL WELDER Height 182.9 cm (6') 12/29/2019 2:51 PM VESSEL WELDER Body Mass Index 40.96 12/29/2019 2:51 PM VESSEL WELDER Plan of Treatment Health Maintenance Due Date [...] age to complete this topic Care Teams Web Marketing Analyst Relationship Specialty Start Date End Date Jas Alcala MD PCP - General Internal Medicine 11/09/19
--- OUTSIDE RECORDS SUMMARY | 2025-03-13 11:21 | XMS_ITS | Data Portability ---
Author Organization [facility], Main Office Address [address] [place] [address] Care Team Providers Care Head Of Transport Logistics Name Role Phone BUBBA ALCALA Primary Care Provider BUBBA ALCALA Referring Provider [phone] Assessment Encounter Date Assessment Date Assessment LastModified by Organization Details LastModified Time 08/04/2023 08/04/2023 Orders for INR given continue current therapy blood work avoid nonsteroidals will consider SLG T 2 inhibitor Follow-up in 3 months [email or web address] Not available 08/16/2023 17:34:29 09/29/2023 09/29/2023 The [...] we will try to get that result [email or web address] Not available 11/09/2023 21:20:45 Plan of Treatment Reminders Order Date Submit Date Provider Last Modified By Organization Details Last Modified Time Details Appointments None recorded. Lab PT/INR 2023 024 [facility] [address], [address], [place], [address], 4 17:00:45 CBC w/ auto diff 2023 024 [facility] (Lab), [address] [place], [address], 4 18:14:03 lipid panel, serum 2023 024 [facility] (Lab), [address] [place], [address], 4 19:14:27 CMP, serum or plasma 2023 024 [facility] (Lab), [address] [place], [address], 4 19:14:32 lipid panel, serum 2022 023 [facility] (Lab), [address] [place], [address], 3 19:23:51 CBC w/ auto diff 2022 023 [facility] (Lab), [address] [place], [address], 3 18:15:09 CMP, serum or plasma 2022 023 [facility] (Lab), [address] [place], [address], 3 19:23:45 PSA, serum or plasma 2022 023 [facility] (Lab), [address] [place], [address], 3 04:11:09 urinalysis, dipstick 2022 023 [email or web address] [facility] [place], [address] [facility] [address], [place], [address], 3 11:47:31 PT/INR 2022 023 [email or web address] [facility] [address], [address], [place], [address], 3 11:40:20 Referral None recorded. Procedures colonoscopy screening (PROC) 2023 024 [email or web address] Dinah Paz MD, [address] [facility], [address], [place], [address], 4 09:01:32 injection/a spiration joint/bursa (PROC) 2022 023 [email or web address] In-Office Order, Internal Use Only DO Not Attach Compendium DO Not Attach Compendium, Do Not Delete/merge, [id number] 3 11:05:49 Surgeries None recorded. Imaging XR, wrist 2022 023 [email or web address] [facility] [place], [address], [place], [address], 3 11:41:42 US, bladder 2022 023 [email or web address] [facility], [address] [facility] [address], [place], [address], 3 11:47:49 Medication Orders bupivacaine HCl 0.5 % (5 mg/mL) injection solution 2022 023 [email or web address] [facility] [place], [address] [place], [address], 3 11:41:42 Kenalog 10 mg/mL suspension for injection 2022 023 [email or web address] [facility], [address] [place], [address], 11:41:42 prednisone 10 mg tablets in a dose pack 2022 023 [email or web address] [id number], [address] [place], [address], 11:41:42 Patient TargetsNo targets recorded. Patient InstructionsNo instructions recorded. Reason for Referral None Reported. Results Created Date Observation Date Name Description Value Unit Range Abnormal Flag Note LastModifiedBy Organization Detail LastModifiedTime 04/22/20 23 04/22/2023 PT/IN R PT 22.1 Not Available [facility] [address], [place], [address], 04/22/2023 15:37:32 04/22/20 23 04/22/2023 PT/IN R INR 1.8 Not Available [facility] [address], [place], [address], 04/22/2023 15:37:32 05/06/20 23 05/06/2023 PT/IN R PT 27.2 Not Available [facility] [address], [place], [address], 05/06/2023 10:56:39 05/06/20 23 05/06/2023 PT/IN R INR 2.3 Not Available [facility] [address] [facility], [place], [address], 05/06/2023 10:56:39 05/13/20 23 05/13/2023 urina lysis , dipst ick Leukocytes (reference range: negative kenn/ l) Negati ve Not Available [facility] [place] [address], [place], [address], 05/13/2023 10:12:04 05/13/20 23 05/13/2023 urina lysis , dipst ick Nitrite (reference rage: negative mg/dl) negati ve Not Available [facility] [address], [place], [address], 05/13/2023 10:12:04 05/13/20 23 05/13/2023 urina lysis , dipst ick Urobilinogen (reference range: 0.2-1 mg/dl) 0.2 Not Available [facility] [place] [address] [place] [address] [place] [address], [place], [address], 05/13/2023 10:12:04 05/13/20 23 05/13/2023 urina lysis , dipst ick Protein (reference range: negative mg/dl) Negati ve Not Available [facility] [address], [place], [address], 05/13/2023 10:12:04 05/13/20 23 05/13/2023 urina lysis , dipst ick pH (reference range: 5-7) 5.5 Not Available [facility] [address], [place], [address], 05/13/2023 10:12:04 05/13/20 23 05/13/2023 urina lysis , dipst ick Blood (reference range: negative Jose G/ l) Negati ve Not Available [facility] [address], [place], [address], 05/13/2023 10:12:04 05/13/20 23 05/13/2023 urina lysis , dipst ick Specific [place] (reference range: 1.005-1.030) 1.020 Not Available [facility] [address], [place], [address], 05/13/2023 10:12:04 05/13/20 23 05/13/2023 urina lysis , dipst ick Ketone (reference range: negative mg/dl) Negati ve Not Available [facility] [address], [place], [address], 05/13/2023 10:12:04 05/13/20 23 05/13/2023 urina lysis , dipst ick Bilirubin (reference range: negative mg/dl) Negati ve Not Available [facility] [address], [place], [address], 05/13/2023 10:12:04 05/13/20 23 05/13/2023 urina lysis , dipst ick Glucose (reference range: negative mg/dl) Negati ve Not Available [facility] [address], [place], [address], 05/13/2023 10:12:04 05/13/20 23 05/13/2023 urina lysis , dipst ick Appearance Clear Not Available [facility] [address], [place], [address], 05/13/2023 10:12:04 05/13/20 23 05/13/2023 urina lysis , dipst ick Color Yellow Not Available [facility] [place] [address], [place], [address], 05/13/2023 10:12:04 06/04/20 23 06/04/2023 PT/IN R PT 45.5 Not Available [facility] [address], [place], [address], 06/04/2023 15:19:31 06/04/20 23 06/04/2023 PT/IN R INR 3.8 Not Available [facility] [address], [place], [address], 06/04/2023 15:19:31 06/17/20 23 06/17/2023 PT/IN R PT 21.7 Not Available [facility] [address], [place], [address], 06/17/2023 12:16:46 06/17/20 23 06/17/2023 PT/IN R INR 1.8 Not Available [facility] [address], [place], [address], 06/17/2023 12:16:46 07/01/20 23 07/01/2023 PT/IN R PT 43.4 Not Available [facility] [address], [place], [address], 07/01/2023 15:59:45 07/01/20 23 07/01/2023 PT/IN R INR 3.6 Not Available [facility] [address], [place], [address], 07/01/2023 15:59:45 07/15/20 23 07/15/2023 PT/IN R PT 31.1 Not Available [facility] [address], [place], [address], 07/15/2023 12:32:43 07/15/2007/15/2023 PT/IN R INR 2.6 Not Available [facility] [address], [place], [address], 07/15/2023 12:32:43 08/04/20 23 08/04/2023 CBC/C OMPLE TE BLD COUNT W/DIF F white blood cells 6.0 x10'3 /uL 4.2-10 .8 Not Available [facility] (Lab) [address] [place], [address], 08/04/2023 18:15:09 08/04/2008/04/2023 CBC/C OMPLE TE BLD COUNT W/DIF F red blood cells 4.69 x10'6 /uL 4.10-5 .80 Not Available [facility] (Lab) [address] [place], [address], 08/04/2023 18:15:09 08/04/2008/04/2023 CBC/C OMPLE TE BLD COUNT W/DIF F hemoglobin 13.5 g/dL 13.2-1 7.0 Not Available [facility] (Lab) [address] [place], [address], 08/04/2023 18:15:09 08/04/2008/04/2023 CBC/C OMPLE TE BLD COUNT W/DIF F hematocrit 42.7 % 39.3-5 0.0 Not Available [facility] (Lab) [address] [place], [address], 08/04/2023 18:15:09 08/04/2008/04/2023 CBC/C OMPLE TE BLD COUNT W/DIF F mean red cell volume 91.0 fL 80.0-9 7.0 Not Available [facility] (Lab) [address] [place], [address], 08/04/2023 18:15:09 08/04/20 23 08/04/2023 CBC/C OMPLE TE BLD COUNT W/DIF F mean red cell hemoglobin 28.8 pg 27.0-3 3.0 Not Available [facility] (Lab) [address] [place], [address], 08/04/2023 18:15:09 08/04/2008/04/2023 CBC/C OMPLE TE BLD COUNT W/DIF F mean RBC HGB concentratio n 31.6 g/dL 31.0-3 6.0 Not Available [facility] (Lab) [address] [place], [address], 08/04/2023 18:15:09 08/04/2008/04/2023 CBC/C OMPLE TE BLD COUNT W/DIF F red cell distribution width 15.9 % 11.8-1 5.5 high Not Available [facility] (Lab) [address] [place], [address], 08/04/2023 18:15:09 08/04/2008/04/2023 CBC/C OMPLE TE BLD COUNT W/DIF F platelets 282 x10'3 /uL 150-40 0 Not Available [facility] (Lab) [address] [place], [address], 08/04/2023 18:15:09 08/04/2008/04/2023 CBC/C OMPLE TE BLD COUNT W/DIF F mean platelet volume 9.2 fL 9.0-12 .4 Not Available [facility] (Lab) [address] [place], [address], 08/04/2023 18:15:09 08/04/20 23 08/04/2023 CBC/C OMPLE TE BLD COUNT W/DIF F neutrophils 50.4 % 39.0-7 2.0 Not Available [facility] (Lab) [address] [place], [address], 08/04/2023 18:15:09 08/04/2008/04/2023 CBC/C OMPLE TE BLD COUNT W/DIF F lymphocytes 21.0 % 16.0-4 7.0 Not Available [facility] (Lab) [address] [place], [address], 08/04/2023 18:15:09 08/04/2008/04/2023 CBC/C OMPLE TE BLD COUNT W/DIF F monocytes 12.3 % 5.0-12 .0 high Not Available [facility] (Lab) [address] [place], [address], 08/04/2023 18:15:09 08/04/2008/04/2023 CBC/C OMPLE TE BLD COUNT W/DIF F eosinophils 14.6 % 1.0-7. 0 high Not Available [facility] (Lab) [address] [place], [address], 08/04/2023 18:15:09 08/04/2008/04/2023 CBC/C OMPLE TE BLD COUNT W/DIF F basophils 1.2 % 0.0-2. 0 Not Available [facility] (Lab) [address] [place], [address], 08/04/2023 18:15:09 08/04/2008/04/2023 CBC/C OMPLE TE BLD COUNT W/DIF F immature granulocytes 0.5 % 0.00-0 .50 Not Available [facility] (Lab) [address] [place], [address], 08/04/2023 18:15:09 08/04/2008/04/2023 CBC/C OMPLE TE BLD COUNT W/DIF F neutrophils, absolute count 3.03 x10'3 /uL 1.5-8. 0 Not Available [facility] (Lab) [address] [place], [address], 08/04/2023 18:15:09 08/04/2008/04/2023 CBC/C OMPLE TE BLD COUNT W/DIF F lymphocytes, absolute count 1.26 x10'3 /uL 1.07-3 .43 Not Available [facility] (Lab) [address] [place], [address], 08/04/2023 18:15:09 08/04/2008/04/2023 CBC/C OMPLE TE BLD COUNT W/DIF F monocytes, absolute count 0.74 x10'3 /uL 0.29-0 .99 Not Available [facility] (Lab) [address] [place], [address], 08/04/2023 18:15:09 08/04/2008/04/2023 CBC/C OMPLE TE BLD COUNT W/DIF F eosinophils, absolute count 0.88 x10'3 /uL 0.02-0 .53 high Not Available [facility] (Lab) [address] [place], [address], 08/04/2023 18:15:09 08/04/2008/04/2023 CBC/C OMPLE TE BLD COUNT W/DIF F basophils, absolute count 0.07 x10'3 /uL 0.01-0 .08 Not Available [facility] (Lab) [address] [place], [address], 08/04/2023 18:15:09 08/04/2008/04/2023 CBC/C OMPLE TE BLD COUNT W/DIF F immature granulocytes ,absolute 0.03 x10'3 /uL 0.00-0 .05 Not Available [facility] (Lab) [address] [place], [address], 08/04/2023 18:15:09 08/04/2008/04/2023 CBC/C OMPLE TE BLD COUNT W/DIF F nucleated red blood cells 0.0 % -0 Not Available [facility] (Lab) [address] [place], [address], 08/04/2023 18:15:09 08/04/20 23 08/04/2023 CBC/C OMPLE TE BLD COUNT W/DIF F NRBC# 0.00 x10'3 /uL Not Available [facility] (Lab) [address] [place], [address], 08/04/2023 18:15:09 08/04/2008/04/2023 COMPR EHENS SHYAM METAB OLIC PANEL sodium 139 mmol/ L 137-14 5 Not Available [facility] (Lab) [address] [place], [address], 08/04/2023 19:23:45 08/04/20 23 08/04/2023 COMPR EHENS SHYAM METAB OLIC PANEL potassium 4.8 mmol/ L 3.5-5. 1 Not Available [facility] (Lab) [address] [place], [address], 08/04/2023 19:23:45 08/04/20 23 08/04/2023 COMPR EHENS SHYAM METAB OLIC PANEL chloride 102 mmol/ L 98-107 Not Available [facility] (Lab) [address] [place], [address], 08/04/2023 19:23:45 08/04/20 23 08/04/2023 COMPR EHENS SHYAM METAB OLIC PANEL carbon dioxide 28 mmol/ L 22-30 Not Available [facility] (Lab) [address] [place], [address], 08/04/2023 19:23:45 08/04/20 23 08/04/2023 COMPR EHENS SHYAM METAB OLIC PANEL anion gap 13.8 mmol/ L 14-22 low Not Available [facility] (Lab) [address] [place], [address], 08/04/2023 19:23:45 08/04/2008/04/2023 COMPR EHENS SHYAM METAB OLIC PANEL glucose 86 mg/dL 70-99 Not Available [facility] (Lab) [address] [place], [address], 08/04/2023 19:23:45 08/04/2008/04/2023 COMPR EHENS SHYAM METAB OLIC PANEL BUN 24 mg/dL 8-19 high Not Available [facility] (Lab) [address] [place], [address], 08/04/2023 19:23:45 08/04/2008/04/2023 COMPR EHENS SHYAM METAB OLIC PANEL creatinine 1.61 mg/dL 0.66-1 .25 high Not Available [facility] (Lab) [address] [place], [address], 08/04/2023 19:23:45 08/04/2008/04/2023 COMPR EHENS SHYAM METAB OLIC PANEL GFR 42 Refer ence Range : [place] ge GFR Healt hy Adult : >60 [...] zacku helen is avail able on the [facility] websi te: [email or web address] :[email or web address] kam/[email or web address] ofess ional s/kdo qi/gf r_cal culat or Not Available [facility] (Lab) [address] [place], [address], 08/04/2023 19:23:45 08/04/2008/04/2023 COMPR EHENS SHYAM METAB OLIC PANEL alkaline phosphatase 91 U/L 38-126 Not Available [facility] (Lab) [address] [place], [address], 08/04/2023 19:23:45 08/04/20 23 08/04/2023 COMPR EHENS SHYAM METAB OLIC PANEL alanine aminotransfe rase 17 U/L 0-50 Not Available [facility] (Lab) [address] [place], [address], 08/04/2023 19:23:45 08/04/20 23 08/04/2023 COMPR EHENS SHYAM METAB OLIC PANEL aspartate aminotransfe rase 26 U/L 15-46 Not Available [facility] (Lab) [address] [place], [address], 08/04/2023 19:23:45 08/04/2008/04/2023 COMPR EHENS SHYAM METAB OLIC PANEL bilirubin, total 0.50 mg/dL 0.20-1 .30 Not Available [facility] (Lab) [address] [place], [address], 08/04/2023 19:23:45 08/04/20 23 08/04/2023 COMPR EHENS SHYAM METAB OLIC PANEL calcium 9.6 mg/dL 8.4-10 .2 Not Available [facility] (Lab) [address] [place], [address], 08/04/2023 19:23:45 08/04/2008/04/2023 COMPR EHENS SHYAM METAB OLIC PANEL total protein 7.4 g/dL 6.3-8. 2 Not Available [facility] (Lab) [address] [place], [address], 08/04/2023 19:23:45 08/04/2008/04/2023 COMPR EHENS SHYAM METAB OLIC PANEL albumin 4.2 g/dL 3.0-4. 4 Not Available [facility] (Lab) [address] [place], [address], 08/04/2023 19:23:45 08/04/20 23 08/04/2023 COMPR EHENS SHYAM METAB OLIC PANEL globulin 3.2 g/dL 2.6-4. 2 Not Available [facility] (Lab) [address] [place], [address], 08/04/2023 19:23:45 08/04/2008/04/2023 COMPR EHENS SHYAM METAB OLIC PANEL A/G ratio 1.3 ratio 1.0-2. 0 Not Available [facility] (Lab) [address] [place], [address], 08/04/2023 19:23:45 08/04/2008/04/2023 LIPID PANEL cholesterol 213 mg/dL 140-19 9 high NIH AYO NSUS RECOM MENDA TION FOR FAISAL STERO L: ADULT CHILD LOW RISK: <200 <170 BORDE RLINE : <200- 239 ----- HIGH RISK: >240 >200 Not Available [facility] (Lab) [address] [place], [address], 08/04/2023 19:23:51 08/04/20 23 08/04/2023 LIPID PANEL triglyceride s 171 mg/dL 0-150 high NIH AYO NSUS REPOR T RECOM MENDA TION FOR TRIGL YCERI JARVIS: ADULT CHILD LOW RISK: <150 ----- BODER LINE: 150-1 99 ----- HIGH RISK: >200 ----- Not Available [facility] (Lab) [address] [place], [address], 08/04/2023 19:23:51 08/04/20 23 08/04/2023 LIPID PANEL HDL cholesterol 58 mg/dL 40- Not Available [facility] (Lab) [address] [place], [address], 08/04/2023 19:23:51 08/04/2008/04/2023 LIPID PANEL LDL cholesterol, [...] WILL NOT BE REPOR MYRTLE. Not Available [facility] (Lab) [address] [place], [address], 08/04/2023 19:23:51 08/04/20 23 08/05/2023 PSA, TOTAL PSA, total <0.064 NG/mL 0.00-4 .00 Not Available [facility] (Lab) [address] [place], [address], 08/05/2023 19:37:51 09/01/2009/01/2023 CBC/C OMPLE TE BLD COUNT W/DIF F white blood cells 5.8 x10'3 /uL 4.2-10 .8 Not Available [facility] (Lab) [address] [place], [address], 09/01/2023 16:47:48 09/01/2009/01/2023 CBC/C OMPLE TE BLD COUNT W/DIF F red blood cells 4.53 x10'6 /uL 4.10-5 .80 Not Available [facility] (Lab) [address] [place], [address], 09/01/2023 16:47:48 09/01/2009/01/2023 CBC/C OMPLE TE BLD COUNT W/DIF F hemoglobin 13.2 g/dL 13.2-1 7.0 Not Available [facility] (Lab) [address] [place], [address], 09/01/2023 16:47:48 09/01/2009/01/2023 CBC/C OMPLE TE BLD COUNT W/DIF F hematocrit 42.0 % 39.3-5 0.0 Not Available [facility] (Lab) [address] [place], [address], 09/01/2023 16:47:48 09/01/2009/01/2023 CBC/C OMPLE TE BLD COUNT W/DIF F mean red cell volume 92.7 fL 80.0-9 7.0 Not Available [facility] (Lab) [address] [place], [address], 09/01/2023 16:47:48 09/01/2009/01/2023 CBC/C OMPLE TE BLD COUNT W/DIF F mean red cell hemoglobin 29.1 pg 27.0-3 3.0 Not Available [facility] (Lab) [address] [place], [address], 09/01/2023 16:47:48 09/01/2009/01/2023 CBC/C OMPLE TE BLD COUNT W/DIF F mean RBC HGB concentratio n 31.4 g/dL 31.0-3 6.0 Not Available [facility] (Lab) [address] [place], [address], 09/01/2023 16:47:48 09/01/2009/01/2023 CBC/C OMPLE TE BLD COUNT W/DIF F red cell distribution width 15.6 % 11.8-1 5.5 high Not Available [facility] (Lab) [address] [place], [address], 09/01/2023 16:47:48 09/01/2009/01/2023 CBC/C OMPLE TE BLD COUNT W/DIF F platelets 315 x10'3 /uL 150-40 0 Not Available [facility] (Lab) [address] [place], [address], 09/01/2023 16:47:48 09/01/2009/01/2023 CBC/C OMPLE TE BLD COUNT W/DIF F mean platelet volume 8.8 fL 9.0-12 .4 low Not Available [facility] (Lab) [address] [place], [address], 09/01/2023 16:47:48 09/01/2009/01/2023 CBC/C OMPLE TE BLD COUNT W/DIF F neutrophils 54.1 % 39.0-7 2.0 Not Available [facility] (Lab) [address] [place], [address], 09/01/2023 16:47:48 09/01/2009/01/2023 CBC/C OMPLE TE BLD COUNT W/DIF F lymphocytes 19.7 % 16.0-4 7.0 Not Available [facility] (Lab) [address] [place], [address], 09/01/2023 16:47:48 09/01/2009/01/2023 CBC/C OMPLE TE BLD COUNT W/DIF F monocytes 14.1 % 5.0-12 .0 high Not Available [facility] (Lab) [address] [place], [address], 09/01/2023 16:47:48 09/01/2009/01/2023 CBC/C OMPLE TE BLD COUNT W/DIF F eosinophils 10.0 % 1.0-7. 0 high Not Available [facility] (Lab) [address] [place], [address], 09/01/2023 16:47:48 09/01/2009/01/2023 CBC/C OMPLE TE BLD COUNT W/DIF F basophils 1.4 % 0.0-2. 0 Not Available [facility] (Lab) [address] [place], [address], 09/01/2023 16:47:48 09/01/2009/01/2023 CBC/C OMPLE TE BLD COUNT W/DIF F immature granulocytes 0.7 % 0.00-0 .50 high Not Available [facility] (Lab) [address] [place], [address], 09/01/2023 16:47:48 09/01/2009/01/2023 CBC/C OMPLE TE BLD COUNT W/DIF F neutrophils, absolute count 3.14 x10'3 /uL 1.5-8. 0 Not Available [facility] (Lab) [address] [place], [address], 09/01/2023 16:47:48 09/01/2009/01/2023 CBC/C OMPLE TE BLD COUNT W/DIF F lymphocytes, absolute count 1.14 x10'3 /uL 1.07-3 .43 Not Available [facility] (Lab) [address] [place], [address], 09/01/2023 16:47:48 09/01/2009/01/2023 CBC/C OMPLE TE BLD COUNT W/DIF F monocytes, absolute count 0.82 x10'3 /uL 0.29-0 .99 Not Available [facility] (Lab) [address] [place], [address], 09/01/2023 16:47:48 09/01/2009/01/2023 CBC/C OMPLE TE BLD COUNT W/DIF F eosinophils, absolute count 0.58 x10'3 /uL 0.02-0 .53 high Not Available [facility] (Lab) [address] [place], [address], 09/01/2023 16:47:48 09/01/2009/01/2023 CBC/C OMPLE TE BLD COUNT W/DIF F basophils, absolute count 0.08 x10'3 /uL 0.01-0 .08 Not Available [facility] (Lab) [address] [place], [address], 09/01/2023 16:47:48 09/01/2009/01/2023 CBC/C OMPLE TE BLD COUNT W/DIF F immature granulocytes ,absolute 0.04 x10'3 /uL 0.00-0 .05 Not Available [facility] (Lab) [address] [place], [address], 09/01/2023 16:47:48 09/01/2009/01/2023 CBC/C OMPLE TE BLD COUNT W/DIF F nucleated red blood cells 0.0 % -0 Not Available [facility] (Lab) [address] [place], [address], 09/01/2023 16:47:48 09/01/2009/01/2023 CBC/C OMPLE TE BLD COUNT W/DIF F NRBC# 0.00 x10'3 /uL Not Available [facility] (Lab) [address] [place], [address], 09/01/2023 16:47:48 09/01/20 23 09/01/2023 BASIC METAB OLIC PANEL sodium 139 mmol/ L 137-14 5 Not Available [facility] (Lab) [address] [facility] [place], [address], 09/01/2023 18:00:43 09/01/2009/01/2023 BASIC METAB OLIC PANEL potassium 4.7 mmol/ L 3.5-5. 1 Not Available [facility] (Lab) [address] [place], [address], 09/01/2023 18:00:43 09/01/2009/01/2023 BASIC METAB OLIC PANEL chloride 106 mmol/ L 98-107 Not Available [facility] (Lab) [address] [facility] [place], [address], 09/01/2023 18:00:43 09/01/2009/01/2023 BASIC METAB OLIC PANEL carbon dioxide 29 mmol/ L 22-30 Not Available [facility] (Lab) [address] [place], [address], 09/01/2023 18:00:43 09/01/2009/01/2023 BASIC METAB OLIC PANEL anion gap 8.7 mmol/ L 14-22 low Not Available [facility] (Lab) [address] [place], [address], 09/01/2023 18:00:43 09/01/2009/01/2023 BASIC METAB OLIC PANEL glucose 77 mg/dL 70-99 Not Available [facility] (Lab) [address] [place], [address], 09/01/2023 18:00:43 09/01/2009/01/2023 BASIC METAB OLIC PANEL BUN 18 mg/dL 8-19 Not Available [facility] (Lab) [address] [place], [address], 09/01/2023 18:00:43 09/01/20 23 09/01/2023 BASIC METAB OLIC PANEL creatinine 1.70 mg/dL 0.66-1 .25 high Not Available [facility] (Lab) [address] [place], [address], 09/01/2023 18:00:43 09/01/2009/01/2023 BASIC METAB OLIC PANEL GFR 40 Refer ence Range : [place] ge GFR Healt hy Adult : >60 [...] calcu lator is avail able on the [facility] websi te: [email or web address] :[email or web address] [email or web address] r_cal culat or Not Available [facility] (Lab) [address] [place], [address], 09/01/2023 18:00:43 09/01/2009/01/2023 BASIC METAB OLIC PANEL calcium 9.2 mg/dL 8.4-10 .2 Not Available [facility] (Lab) [address] [place], [address], 09/01/2023 18:00:43 09/01/2009/01/2023 PT/IN R PT 54.1 Not Available [facility] [address], [place], [address], 09/01/2023 14:17:57 09/01/20 23 09/01/2023 PT/IN R INR 4.5 Not Available [facility] [address], [place], [address], 09/01/2023 14:17:57 10/07/20 23 10/07/2023 PT/IN R PT 32.8 Not Available [facility] [address], [place], [address], 10/07/2023 10:19:26 10/07/20 23 10/07/2023 PT/IN R INR 2.7 Not Available [facility] [address], [place], [address], 10/07/2023 10:19:26 11/09/19 24 11/09/2023 CBC/C OMPLE TE BLD COUNT W/DIF F white blood cells 5.5 x10'3 /uL 4.2-10 .8 Not Available [facility] (Lab) [address] [place], [address], 11/09/2023 18:14:03 11/09/19 24 11/09/2023 CBC/C OMPLE TE BLD COUNT W/DIF F red blood cells 4.47 x10'6 /uL 4.10-5 .80 Not Available [facility] (Lab) [address] [place], [address], 11/09/2023 18:14:03 11/09/19 24 11/09/2023 CBC/C OMPLE TE BLD COUNT W/DIF F hemoglobin 13.0 g/dL 13.2-1 7.0 low Not Available [facility] (Lab) [address] [place], [address], 11/09/2023 18:14:03 11/09/19 24 11/09/2023 CBC/C OMPLE TE BLD COUNT W/DIF F hematocrit 41.4 % 39.3-5 0.0 Not Available [facility] (Lab) [address] [place], [address], 11/09/2023 18:14:03 11/09/19 24 11/09/2023 CBC/C OMPLE TE BLD COUNT W/DIF F mean red cell volume 92.6 fL 80.0-9 7.0 Not Available [facility] (Lab) [address] [place], [address], 11/09/2023 18:14:03 11/09/19 24 11/09/2023 CBC/C OMPLE TE BLD COUNT W/DIF F mean red cell hemoglobin 29.1 pg 27.0-3 3.0 Not Available [facility] (Lab) [address] [place], [address], 11/09/2023 18:14:03 11/09/19 24 11/09/2023 CBC/C OMPLE TE BLD COUNT W/DIF F mean RBC HGB concentratio n 31.4 g/dL 31.0-3 6.0 Not Available [facility] (Lab) [address] [place], [address], 11/09/2023 18:14:03 11/09/19 24 11/09/2023 CBC/C OMPLE TE BLD COUNT W/DIF F red cell distribution width 16.0 % 11.8-1 5.5 high Not Available [facility] (Lab) [address] [place], [address], 11/09/2023 18:14:03 11/09/19 24 11/09/2023 CBC/C OMPLE TE BLD COUNT W/DIF F platelets 257 x10'3 /uL 150-40 0 Not Available [facility] (Lab) [address] [place], [address], 11/09/2023 18:14:03 11/09/19 24 11/09/2023 CBC/C OMPLE TE BLD COUNT W/DIF F mean platelet volume 8.8 fL 9.0-12 .4 low Not Available [facility] (Lab) [address] [place], [address], 11/09/2023 18:14:03 11/09/19 24 11/09/2023 CBC/C OMPLE TE BLD COUNT W/DIF F neutrophils 51.5 % 39.0-7 2.0 Not Available [facility] (Lab) [address] [place], [address], 11/09/2023 18:14:03 11/09/19 24 11/09/2023 CBC/C OMPLE TE BLD COUNT W/DIF F lymphocytes 22.0 % 16.0-4 7.0 Not Available [facility] (Lab) [address] [place], [address], 11/09/2023 18:14:03 11/09/19 24 11/09/2023 CBC/C OMPLE TE BLD COUNT W/DIF F monocytes 10.8 % 5.0-12 .0 Not Available [facility] (Lab) [address] [place], [address], 11/09/2023 18:14:03 11/09/19 24 11/09/2023 CBC/C OMPLE TE BLD COUNT W/DIF F eosinophils 13.9 % 1.0-7. 0 high Not Available [facility] (Lab) [address] [place], [address], 11/09/2023 18:14:03 11/09/19 24 11/09/2023 CBC/C OMPLE TE BLD COUNT W/DIF F basophils 1.4 % 0.0-2. 0 Not Available [facility] (Lab) [address] [place], [address], 11/09/2023 18:14:03 11/09/19 24 11/09/2023 CBC/C OMPLE TE BLD COUNT W/DIF F immature granulocytes 0.4 % 0.00-0 .50 Not Available [facility] (Lab) [address] [place], [address], 11/09/2023 18:14:03 11/09/19 24 11/09/2023 CBC/C OMPLE TE BLD COUNT W/DIF F neutrophils, absolute count 2.85 x10'3 /uL 1.5-8. 0 Not Available [facility] (Lab) [address] [place], [address], 11/09/2023 18:14:03 11/09/19 24 11/09/2023 CBC/C OMPLE TE BLD COUNT W/DIF F lymphocytes, absolute count 1.22 x10'3 /uL 1.07-3 .43 Not Available [facility] (Lab) [address] [place], [address], 11/09/2023 18:14:03 11/09/19 24 11/09/2023 CBC/C OMPLE TE BLD COUNT W/DIF F monocytes, absolute count 0.60 x10'3 /uL 0.29-0 .99 Not Available [facility] (Lab) [address] [place], [address], 11/09/2023 18:14:03 11/09/19 24 11/09/2023 CBC/C OMPLE TE BLD COUNT W/DIF F eosinophils, absolute count 0.77 x10'3 /uL 0.02-0 .53 high Not Available [facility] (Lab) [address] [place], [address], 11/09/2023 18:14:03 11/09/19 24 11/09/2023 CBC/C OMPLE TE BLD COUNT W/DIF F basophils, absolute count 0.08 x10'3 /uL 0.01-0 .08 Not Available [facility] (Lab) [address] [place], [address], 11/09/2023 18:14:03 11/09/19 24 11/09/2023 CBC/C OMPLE TE BLD COUNT W/DIF F immature granulocytes ,absolute 0.02 x10'3 /uL 0.00-0 .05 Not Available [facility] (Lab) [address] [place], [address], 11/09/2023 18:14:03 11/09/19 24 11/09/2023 CBC/C OMPLE TE BLD COUNT W/DIF F nucleated red blood cells 0.0 % -0 Not Available [facility] (Lab) [address] [place], [address], 11/09/2023 18:14:03 11/09/19 24 11/09/2023 CBC/C OMPLE TE BLD COUNT W/DIF F NRBC# 0.00 x10'3 /uL Not Available [facility] (Lab) [address] [place], [address], 11/09/2023 18:14:03 11/09/19 24 11/09/2023 LIPID PANEL cholesterol 132 mg/dL 140-19 9 low NIH AYO NSUS RECOM MENDA TION FOR FAISAL STERO L: ADULT CHILD LOW RISK: <200 <170 BORDE RLINE : <200- 239 ----- HIGH RISK: >240 >200 Not Available [facility] (Lab) [address] [place], [address], 11/09/2023 19:14:27 11/09/19 24 11/09/2023 LIPID PANEL triglyceride s 92 mg/dL 0-150 NIH AYO NSUS REPOR T RECOM MENDA TION FOR TRIGL YCERI JARVIS: ADULT CHILD LOW RISK: <150 ----- BODER LINE: 150-1 99 ----- HIGH RISK: >200 ----- Not Available [facility] (Lab) [address] [place], [address], 11/09/2023 19:14:27 11/09/19 24 11/09/2023 LIPID PANEL HDL cholesterol 66 mg/dL 40- Not Available [facility] (Lab) [address] [place], [address], 11/09/2023 19:14:27 11/09/19 24 11/09/2023 LIPID PANEL [...] WILL NOT BE REPOR MYRTLE. Not Available [facility] (Lab) [address] [place], [address], 11/09/2023 19:14:27 11/09/19 24 11/09/2023 COMPR EHENS SHYAM METAB OLIC PANEL sodium 139 mmol/ L 137-14 5 Not Available [facility] (Lab) [address] [place], [address], 11/09/2023 19:14:32 11/09/19 24 11/09/2023 COMPR EHENS SHYAM METAB OLIC PANEL potassium 4.5 mmol/ L 3.5-5. 1 Not Available [facility] (Lab) [address] [place], [address], 11/09/2023 19:14:32 11/09/19 24 11/09/2023 COMPR EHENS SHYAM METAB OLIC PANEL chloride 104 mmol/ L 98-107 Not Available [facility] (Lab) [address] [place], [address], 11/09/2023 19:14:32 11/09/19 24 11/09/2023 COMPR EHENS SHYAM METAB OLIC PANEL carbon dioxide 27 mmol/ L 22-30 Not Available [facility] (Lab) [address] [place], [address], 11/09/2023 19:14:32 11/09/19 24 11/09/2023 COMPR EHENS SHYAM METAB OLIC PANEL anion gap 12.5 mmol/ L 14-22 low Not Available [facility] (Lab) [address] [place], [address], 11/09/2023 19:14:32 11/09/19 24 11/09/2023 COMPR EHENS SHYAM METAB OLIC PANEL glucose 87 mg/dL 70-99 Not Available [facility] (Lab) [address] [place], [address], 11/09/2023 19:14:32 11/09/19 24 11/09/2023 COMPR EHENS SHYAM METAB OLIC PANEL BUN 19 mg/dL 8-19 Not Available [facility] (Lab) [address] [place], [address], 11/09/2023 19:14:32 11/09/19 24 11/09/2023 COMPR EHENS SHYAM METAB OLIC PANEL creatinine 1.49 mg/dL 0.66-1 .25 high Not Available [facility] (Lab) [address] [place], [address], 11/09/2023 19:14:32 11/09/19 24 11/09/2023 COMPR EHENS SHYAM METAB OLIC PANEL GFR 46 Refer ence Range : [place] ge GFR Healt hy Adult : >60 [...] calcu lator is avail able on the [facility] websi te: https :[email or web address] [email or web address] [email or web address] rg/pr ofess ional s/kdo qi/gf r_cal culat or Not Available [facility] (Lab) [address] [place], [address], 11/09/2023 19:14:32 11/09/19 24 11/09/2023 COMPR EHENS SHYAM METAB OLIC PANEL alkaline phosphatase 71 U/L 38-126 Not Available [facility] (Lab) [address] [place], [address], 11/09/2023 19:14:32 11/09/19 24 11/09/2023 COMPR EHENS SHYAM METAB OLIC PANEL alanine aminotransfe rase 18 U/L 0-50 Not Available [facility] (Lab) [address] [place], [address], 11/09/2023 19:14:32 11/09/19 24 11/09/2023 COMPR EHENS SHYAM METAB OLIC PANEL aspartate aminotransfe rase 30 U/L 15-46 Not Available [facility] (Lab) [address] [place], [address], 11/09/2023 19:14:32 11/09/19 24 11/09/2023 COMPR EHENS SHYAM METAB OLIC PANEL bilirubin, total 0.40 mg/dL 0.20-1 .30 Not Available [facility] (Lab) [address] [place], [address], 11/09/2023 19:14:32 11/09/19 24 11/09/2023 COMPR EHENS SHYAM METAB OLIC PANEL calcium 9.5 mg/dL 8.4-10 .2 Not Available [facility] (Lab) [address] [place], [address], 11/09/2023 19:14:32 11/09/19 24 11/09/2023 COMPR EHENS SHYAM METAB OLIC PANEL total protein 7.2 g/dL 6.3-8. 2 Not Available [facility] (Lab) [address] [place], [address], 11/09/2023 19:14:32 11/09/19 24 11/09/2023 COMPR EHENS SHYAM METAB OLIC PANEL albumin 4.1 g/dL 3.0-4. 4 Not Available [facility] (Lab) [address] [place], [address], 11/09/2023 19:14:32 11/09/19 24 11/09/2023 COMPR EHENS SHYAM METAB OLIC PANEL globulin 3.1 g/dL 2.6-4. 2 Not Available [facility] (Lab) [address] [place], [address], 11/09/2023 19:14:32 11/09/19 24 11/09/2023 COMPR EHENS SHYAM METAB OLIC PANEL A/G ratio 1.3 ratio 1.0-2. 0 Not Available [facility] (Lab) [address] [place], [address], 11/09/2023 19:14:32 11/09/19 24 11/09/2023 PT/IN R PT 27.1 Not Available [facility] Internal [facility] [address], [place], [address], 11/09/2023 16:05:16 11/09/19 24 11/09/2023 PT/IN R INR 2.3 Not Available [facility] Internal [facility] [address], [place], [address], 11/09/2023 16:05:16 02/03/20 24 02/03/2024 PROTI ME W/INR protime 17.9 secon ds 9.4-11 .9 high Not Available [facility] (Lab) [address] [place], [address], 02/03/2024 14:28:13 02/03/20 24 02/03/2024 PROTI ME [...] HOSPH OLIPI D SYNDR OME. Not Available [facility] (Lab) [address] [facility], [place], [address], 02/03/2024 14:28:13 02/08/20 24 02/08/2024 PROTI ME W/INR protime 18.2 secon ds 9.4-11 .9 high Not Available [facility] (Lab) [address] [place], [address], 02/08/2024 12:48:29 02/08/20 24 02/08/2024 PROTI ME [...] HOSPH OLIPI D SYNDR OME. Not Available [facility] (Lab) [address] [place], [address], 02/08/2024 12:48:29 02/15/20 24 02/15/2024 PROTI ME W/INR protime 18.0 secon ds 9.4-11 .9 high Not Available [facility] (Lab) [address] [place], [address], 02/15/2024 14:46:39 02/15/20 24 02/15/2024 PROTI ME [...] HOSPH OLIPI D SYNDR OME. Not Available [facility] ([facility]) [address], [place], [address], 02/15/2024 14:46:39 05/13/20 23 05/13/2023 US, bladd er No observ ation record ed. [email or web address] [facility] [place] [address], [place], [address], 05/13/2023 12:47:41 05/19/2005/19/2023 XR, foot [facility] [address], [place] [address] Patien t Name: BRENNEN OLSON ion #: [id number] Sex: M : 1949 0 Dictat [...] MRI Electr onical ly Signed by: Nahun Presotn at 2022 12:25: 27 PM Page 1 [email or web address] [facility] (Imaging) [address], [place], [address], 09/18/2023 21:52:16 09/29/20 23 XR, wrist No observ ation record ed. [email or web address] [facility] [place] [address] [facility], [place], [address], 09/29/2023 11:26:17 11/10/19 24 10/01/2023 CT, abdom en + pelvi s, w/wo contr ast No observ ation record ed. BARCODE Not Available 2023 12:57:54 Result Notes None recorded. Problems Name Problem SNOMED Code Status Onset Date Resolution Date Notes Provider Name and Address Organization Details Recorded Time Neck pain 28258727 Active 2022 NORA Servin null, [facility] 3 10:26:28 Pain of toe of left foot 36407238459 9108 Active 2022 Ingris Hunter RN null, [facility] 3 14:39:12 History of pulmonar y embolus 274064258 Active 2022 Bubba Alcala MD [address], [place], [address] , [facility] 3 17:30:45 Hyperlip idemia 42710356 Active 2022 Jocy Keene null, [facility] 3 14:51:26 Pain of left wrist 92359896718 9102 Active 2022 Marisel Montana CNA null, [facility] 3 10:42:51 Arthriti s of first carpomet acarpal joint of left hand 48518811023 37490 Active 2022 Marisel Montana CNA null, [facility] 3 11:03:17 Sprain of left wrist 63072006297 649933 Active 2022 BENEDICT Chase [address] [facility], [facility] [address], [place], [address] , [facility] 3 11:25:17 Rectal hemorrha ge 90286827 Active 2023 Aletha Prieto RMA null, [facility] 4 16:55:52 Laborato ry test result abnormal 718430165 Active 2023 Aletha Prieto RMA null, [facility] 4 12:04:11 Disorder of salivary gland 67344132 Active 2021 Not Available [facility] 3 03:26:28 Nonische guanaco congesti ve cardiomy opathy 96212515894 4 Active 2018 cardiac catheter ization EF 40- 45% 2018 Not Available [facility] 3 03:26:28 Disorder of shoulder 749800446 Active Not Available [facility] 3 03:26:28 Pain in right sacroili ac joint 84415565546 533058 Active 2022 Not Available [facility] 3 03:26:28 Cellulit is 259343827 Completed Not Available [facility] 3 03:26:28 Abnormal radionuc lide scan 551400798 Active 2019 indeterm inate V/Q scan while on Eliquis patient was started on Coumadin and treated as Eliquis failure could not do CT angiogra m Not Available [facility] 3 03:26:28 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 17170375329 9106 Active 2021 Not Available [facility] 3 03:26:28 Pain of left shoulder joint 38169274141 588856 Active 2022 Not Available [facility] 3 03:26:28 Bruising symptom 057655758 Completed Not Available [facility] 3 03:26:28 Increase d frequenc y of urinatio n 378375328 Active 2021 Not Available [facility] 3 03:26:28 Anticoag ulant therapy Active 2021 Not Available [facility] 3 03:26:29 Microsco pic hematuri a 183691194 Active 2021 Not Available [facility] 3 03:26:29 Partial thicknes s rotator cuff tear Active 2022 Not Available [facility] 3 03:26:29 Partial thicknes s rotator cuff tear Active 2022 Not Available [facility] 3 03:26:29 Abdomina l pain 78115510 Completed Not Available [facility] 3 03:26:29 Gastroes ophageal reflux disease 738707592 Active Not Available [facility] 3 03:26:29 Ventricu lar tachycar megan 62992781 Active 2021 [facility] June 2022 Not Available [facility] 3 03:26:29 Shoulder joint pain 781843232 Active Not Available [facility] 3 03:26:29 Eruption 744419295 Completed Not Available [facility] 3 03:26:29 Pain in right arm 112569641 Completed Not Available [facility] 3 03:26:29 Pain of right hip joint 32197030226 9102 Active 2022 Not Available [facility] 3 03:26:29 Sinusiti s 37917509 Completed Not Available [facility] 3 03:26:30 Chronic pain syndrome 794992499 Active Not Available [facility] 3 03:26:30 Osteoart hritis 795730589 Active 2020 Not Available [facility] 3 03:26:30 Malignan t neoplasm of prostate 399300683 Active 2021 Not Available [facility] 3 03:26:30 Dizzines s 831770422 Completed Not Available [facility] 3 03:26:30 Imaging result abnormal 181127194 Active 2021 Not Available [facility] 3 03:26:30 Recurren t hernia of anterior abdomina l wall 886571339 Active Not Available [facility] 3 03:26:30 History of malignan t neoplasm of prostate 358581830 Active 2019 Not Available [facility] 3 03:26:30 Chronic kidney disease stage 3 396408894 Active 2021 Not Available [facility] 3 03:26:30 Hernia of abdomina l cavity 00822626 Active Not Available [facility] 3 03:26:31 Upper respirat ory infectio n 43234872 Completed Not Available [facility] 3 03:26:31 Cervical radiculo fausto 25333581 Completed Not Available [facility] 3 03:26:31 Rhinitis 98855064 Completed Not Available [facility] 3 03:26:31 Urgent desire to urinate 02341474 Active 2021 Not Available [facility] 3 03:26:31 Spinal stenosis in cervical region 42060091 Active 2022 Not Available [facility] 3 03:26:31 Pain in limb 89238361 Active Not Available [facility] 3 03:26:31 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 Please review this document and add these problems to the patient's chart manually as needed. Problem Notes None recorded. Procedures Surgical History Date Name Laterality Status Provider Name and Address Organization Details Recorded Time 01/14/20 23 Ortho - Cortisone Injection completed Trung Buenrostro MD [address] [facility], [facility] [address], [place], [address], [facility] [employer] 01/13/2023 10:14:39 06/09/20 22 Unlisted px cardiac surgery completed Not Available [facility] 12/31/2022 03:18:52 04/06/20 14 Colonoscopy completed Not Available [facility] 12/31/2022 03:18:52 Unlisted px femur/knee completed Not Available [facility] 12/31/2022 03:18:52 Cholecystectomy completed Not Available [facility] 12/31/2022 03:18:52 Tonsillectomy completed Not Available [facility] 12/31/2022 03:18:52 Back Surgery completed Not Available [facility] 12/31/2022 03:18:52 Hernia Repair completed Not Available [facility] 12/31/2022 03:18:52 Neck Surgeries completed Not Available [facility] 12/31/2022 03:18:52 Prostatectomy completed Not Available [facility] 12/31/2022 03:18:52 Vasectomy completed Not Available [facility] 12/31/2022 03:18:52 Imaging Results Imaging Date Name Status LastModified by Organiz ation Details LastModified Time 05/13/2023 US, bladder completed [email or web address] [facility] [place] [address] [facility] [address], [place], [address], 05/13/2023 12:47:41 05/19/2023 XR, foot completed [email or web address] [facility] (Imaging) [address] [place], [address], 09/18/2023 21:52:16 09/29/2023 XR, wrist completed [email or web address] [facility] [place] [address] [facility], [place], [address], 09/29/2023 11:26:17 10/01/2023 CT, abdomen + pelvis, w/wo contrast completed [facility] Information not available 11/10/2023 12:57:54 Procedure Notes None recorded. Medical Equipment None Reported. Allergies Allergen ID Allergen Name Allergen Category Reaction Reaction Severity Criticality Documentation Date Start Date Code Code System Note Provider Name and Address Organization Details Recorded Time 6342 Lyrica medicatio n other Not available Not available 12/31/2022 20271 1 RxNorm visio n montanez es Not Available [facility] 3 03:35:30 6343 Celebrex medicatio n Not available Not available Not available 12/31/2022 75586 7 RxNorm Not Available [facility] 03:35:30 6344 amoxicill in medicatio n Not available Not available Not available 12/31/2022 723 RxNorm Not Available [facility] 3 03:35:30 14285 Farxiga medicatio n Not available Not available Not available 09/22/2023 93009 72 RxNorm Ingris pruitt RN null, [place] [facility] [employer] [facility] 3 12:27:08 Medications Name Sig Start Date [...] mg by injectio n route. 2022 active [facility]: [id number] 02-19 Not Available Not Available Not [...] administ ered by the provider 10/10 completed [facility]: [phone] Not Available Not Available Not [...] Not Available Not Avai lable Fluzone Quad 8701-7262 60 mcg (15 mcg x 4)/0.5 mL IM suspensio n active Not Available Not Available Not Available Fluzone High-Dose (PF) 180 mcg/0.5 mL intramusc ular syringe TO BE ADMINIST ERED BY PHARMACI FOR IMMUNIZA TION 12/19 completed Not Available Not Available Not Available Ozempic 04/29 completed Started by his cardiolo gist for weight loss Not Available Not Available Not Available Fluzone High-Dose 1859-1731 (PF) 180 mcg/0.5 mL intramusc ular syringe [...] DateTime 05/06/2023 182.88 cm Ana Muller RN [facility] [employer] 05/06/2023 10:56:27 Date Recorded Body height Body mass index (BMI) Body weight Oxygen saturation Oxygen saturation in Arterial blood by Pulse oximetry Body temperature Heart rate Systolic blood pressure Diastolic blood pressure Provider Name and Address Organization Details Last Updated DateTime 3 182.88 cm 34.4 kg/m2 816591. 46 g 95 % 95 % 98.2 [degF] 80 /min 141 mm[Hg] 93 mm[Hg] NORA Mercado [employer] 3 11:29:42 Date Recorded Body height Body mass index (BMI) Body weight Body temperature Heart rate Systolic blood pressure Diastolic blood pressure Provider Name and Address Organization Details Last Updated DateTime 3 182.88 cm 36.2 kg/m2 847100. 16 g 98 [degF] 57 /min 126 mm[Hg] 72 mm[Hg] NORA Rousseau [employer] 3 15:04:09 Date Recorded Body height Body mass index (BMI) Body weight Provider Name and Address Organization Details Last Updated DateTime 09/29/2023 182.88 cm 35.3 kg/m2 968536.02 g Marisel Montana CNA [facility] 09/29/2023 10:42:19 Date Recorded Body height Body mass index (BMI) Body weight Body temperature Heart rate Systolic blood pressure Diastolic blood pressure Provider Name and Address Organization Details Last Updated DateTime 4 182.88 cm 38.2 kg/m2 400267. 05 g 97.3 [degF] 54 /min 124 mm[Hg] 74 mm[Hg] NORA Rousseau [facility] [employer] [facility] 4 16:03:45 Social History Question Answer Notes LastModified by Organization Details LastModified Time Tobacco Smoking Status Former Smoker quit 05/24/19 Not Available [facility] 12/31/2022 03:13:58 Do You Have An Advance Directive? No Papers Provided MIGRATION.0301 [id number] Information not available 12/31/2022 Are You Blind Or Do You Have Difficulty Seeing? No MIGRATION.0301 182488 Information not available 12/31/2022 What Is Your Level Of Caffeine Consumption? Occasional MIGRATION.0301 779542 Information not available 12/31/2022 How Much Tobacco Do You Chew? None MIGRATION.0301 346499 Information not available 12/31/2022 In The 14 Days Before Symptom Onset, Have You Had Close Contact With A Laboratory-conf irmed COVID-19 While That Case Was Ill? No MIGRATION.0301 789219 Information not available 12/31/2022 In The 14 Days Before Symptom Onset, Have You Had Close Contact With A Person Who Is Under Investigation For COVID-19 While That Person Was Ill? No MIGRATION.0301 612367 Information not available 12/31/2022 Are You Deaf Or Do You Have Serious Difficulty Hearing? No MIGRATION.0301 422882 Information not available 12/31/2022 What Type Of Diet Are You Following? REGULAR MIGRATION.0301 231895 Information not available 12/31/2022 Which Illicit Or Recreational Drugs Have You Used? None MIGRATION.0301 257558 Information not available 12/31/2022 What Is The Highest Grade Or Level Of School You Have Completed Or The Highest Degree You Have Received? [id number] MIGRATION.0301 641378 Information not available 12/31/2022 Have There Been Any Changes To Your Family Or Social Situation? No MIGRATION.0301 696965 Information not available 12/31/2022 What Is The Fluoride Status Of Your Home? Unknown MIGRATION.0301 603500 Information not available 12/31/2022 When Did You Quit Smoking? 1-5yearssincelastc igarette MIGRATION.0301 401130 Information not available 12/31/2022 Are There Any Guns Present In Your Home? No MIGRATION.0301 248875 Information not available 12/31/2022 Do You Use Insect Repellent Routinely? No MIGRATION.0301 526053 Information not available 12/31/2022 Where Do You Live? SingleLevelHouse MIGRATION.0301 218261 Information not available 12/31/2022 Do You Have A Medical Power Of Institute Director? No MIGRATION.0301 556825 Information not available 12/31/2022 What Was The Date Of Your Most Recent Tobacco Screening? 11/09/2023 [email or web address] Information not available 11/09/2023 Do You Have Any Pets? Yes MIGRATION.0301 494369 Information not available 12/31/2022 What Is Your Relationship Status? MIGRATION.0301 483828 Information not available 12/31/2022 Do You Use Your Seat Belt Or Car Seat Routinely? Yes MIGRATION.0301 058800 Information not available 12/31/2022 Do You Have Smoke And Carbon Monoxide Detectors In Your Home? Yes MIGRATION.0301 153871 Information not available 12/31/2022 At What Age Did You Start Smoking Tobacco? 18 MIGRATION.0301 645157 Information not available 12/31/2022 Are You Passively Exposed To Smoke? No MIGRATION.0301 978590 Information not available 12/31/2022 Are There Any Smokers In Your House? No MIGRATION.0301 315027 Information not available 12/31/2022 How Much Tobacco Do You Smoke? No Formerly 1 Ppd MIGRATION.0301 149346 Information not available 12/31/2022 What Types Of Sporting Activities Do You Participate In? None MIGRATION.0301 674110 Information not available 12/31/2022 Do You Use Sunscreen Routinely? Yes MIGRATION.0301 090851 Information not available 12/31/2022 Has Tobacco Cessation Counseling Been Provided? No MIGRATION.0301 126492 Information not available 12/31/2022 Have You Recently Traveled Abroad? No MIGRATION.0301 670903 Information not available 12/31/2022 Do You Have Any Dietary Restrictions? No MIGRATION.0301 194269 Information not available 12/31/2022 Sex: Male Functional Status Question Answer Note LastModified by Organizat ion Details LastModified Time Do you or have you ever used smokeless tobacco? Never used smokeless tobacco MIGRATION.024450 4825 Information not available 12/31/2022 Do you have difficulty walking or climbing stairs? No MIGRATION.847066 8692 Information not available 12/31/2022 Do you have transportation difficulties? No MIGRATION.228557 4457 Information not available 12/31/2022 Are you able to care for yourself? Yes MIGRATION.900056 0239 Information not available 12/31/2022 Do you have difficulty dressing or bathing? No MIGRATION.009684 7121 Information not available 12/31/2022 Do you or have you ever used e-cigarettes or vape? Never used electronic cigarettes MIGRATION.901490 2305 Information not available 12/31/2022 What is your exercise level? Occasional MIGRATION.631061 5865 Information not available 12/31/2022 Do you use any illicit or recreational drugs? No MIGRATION.030276 4065 Information not available 12/31/2022 Do you or have you ever used any other forms of tobacco or nicotine? No MIGRATION.229045 0170 Information not available 12/31/2022 What is your level of alcohol consumption? None MIGRATION.080741 4082 Information not available 12/31/2022 Are you able to walk? YESWOREST MIGRATION.962884 9990 Information not available 12/31/2022 Do you have difficulty doing errands alone? 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 [id number] MIGRATION.52048206 26 Information not available 12/31/2022 Do you have difficulty concentrating, remembering or making decisions? No MIGRATION.07496814 26 Information not available 12/31/2022 Family History Relationship Description Onset Age of this Age Resolved Age Notes LastModified by Organization Details LastModified Time Mother Malignant tumor of breast MIGRATION.408 1009499 Not available 12/31/2022 03:18:58 Father Malignant neoplastic disease MIGRATION.675 8636486 Not available 12/31/2022 03:18:58 Notes:blood clots in [...] HAVE YOU BEEN HOSPITALIZED OR SEEN IN [facility] IN THE PAST YEAR ? N ATHEROSCLEROSIS [...] virus, trivalent, preservative 3 completed Not Available [facility] 12/31/2022 03:35:17 COVID-19, mRNA, LNP-S, PF, 100 mcg/0.5mL dose or 50 mcg/0.25mL dose 2 completed Not Available [facility] 12/31/2022 03:35:17 Influenza, high-dose, trivalent, PF 9 completed Not Available [facility] 12/31/2022 03:35:17 Influenza, high-dose, trivalent, PF 8 completed Not Available [facility] 12/31/2022 03:35:17 COVID-19, mRNA, LNP-S, PF, 100 mcg/0.5mL dose or 50 mcg/0.25mL dose 1 completed Not Available [facility] 12/31/2022 03:35:17 COVID-19, mRNA, LNP-S, PF, 100 mcg/0.5mL dose or 50 mcg/0.25mL dose 1 completed Not Available [facility] 12/31/2022 03:35:17 Influenza, high-dose, quadrivalent, PF 0 completed Not Available [facility] 12/31/2022 03:35:17 influenza, unspecified formulation 4 completed Not Available [facility] 12/31/2022 03:35:17 Influenza, split virus, trivalent, preservative 3 completed Not Available [facility] 12/31/2022 03:35:17 Influenza, high-dose, quadrivalent, PF 2 completed Not Available [facility] 12/31/2022 03:35:17 Influenza, high-dose, quadrivalent, PF 1 completed Not Available [facility] 12/31/2022 03:35:18 Influenza, high-dose, trivalent, PF 7 completed Not Available [facility] 12/31/2022 03:35:18 Influenza, split virus, quadrivalent, PF 5 completed Not Available [facility] 12/31/2022 03:35:18 Influenza, high-dose, quadrivalent, PF 3 completed Bubba Alcala MD [address] [facility], [address], [place], [address], [facility] 08/16/2023 17:35:03 Past Encounters Encounter ID Performer Location Encounter Start Date Encounter Closed Date Diagnosis/Indication Diagnosis SNOMED-CT Code Diagnosis ICD10 Code Diagnosis Note [id number] Bubba Alcala MD [facility] [place] Internal Med [facility] [address] [facility] [address] [place] [address] 02/06/2021 00:00:00 02/06/2021 22:55:37 [id number] Lon Tomas MD [facility]_[address] [place] [address] 04/29/2021 00:00:00 04/29/2021 13:13:52 [id number] Bubba Alcala MD [facility] [place] Internal Med [facility] [address] [place] [address] 05/07/2021 00:00:00 05/12/2021 17:07:15 [id number] Lon Tomas MD [facility]_[address] [address] 06/10/2021 00:00:00 06/10/2021 12:22:16 [id number] Bubba Alcala MD [facility] [place] Internal Med [facility] [address] [place] [address] 1 06/27/2021 00:00:00 07/21/2021 17:18:22 [id number] Bubba Alcala MD [facility] [place] Internal Med [facility] [address] [place] [address] 08/02/2021 00:00:00 08/03/2021 15:06:58 [id number] Bubba Alcala MD [facility] Internal Med [facility] [address] [facility] [address] [address] 09/04/2021 00:00:00 09/06/2021 22:49:18 [id number] Bubba Alcala MD [facility] Internal Med [facility] [address] [facility] [address] [address] 12/03/2021 00:00:00 12/07/2021 21:41:41 [id number] MD DAVID DuffyS[facility] [place] [address] [place] [address] 12/09/2021 00:00:00 12/09/2021 12:12:14 [id number] Bubba Alcala MD [facility] Internal Med [facility] [address] [facility] [address] [address] 03/04/2022 00:00:00 03/04/2022 23:32:54 [id number] Lon Tomas MD S[facility] [place] [address] [place] [address] 1 04/28/2022 00:00:00 04/28/2022 12:17:36 [id number] Bubba Alcala MD [facility] Internal Med [facility] [address] [address] 05/06/2022 00:00:00 05/06/2022 20:22:12 [id number] Ubaldo Weber MD [facility] [place] [address] [facility] [address] [place] [address] 05/22/2022 00:00:00 05/22/2022 15:18:36 [id number] Bubba Alcala MD [facility] Internal Med [facility] [address] [address] 06/16/2022 00:00:00 06/16/2022 21:38:04 [id number] MD GURPREET Duffy[facility] [place] [address] [place] [address] 08/04/2022 00:00:00 08/04/2022 11:58:54 [id number] Bubba Alcala MD S[facility] Internal Med [facility] [address] [address] 09/22/2022 00:00:00 09/27/2022 17:21:44 [id number] MD DAVID DuffyS[facility] [address] [address] 11/10/2022 00:00:00 11/10/2022 12:11:08 [id number] Trung Buenrostro MD S_[facility] [place] [address] [facility] [address] [place] [address] 11/20/2022 00:00:00 11/20/2022 11:41:26 [id number] MD GURPREET Herbert_[facility] [address] [address] 12/16/2022 00:00:00 12/16/2022 10:24:20 [id number] Bubba Alcala MD S[facility] Internal Med [facility] [address] [place] [address] 12/17/2022 00:00:00 12/17/2022 21:55:25 [id number] Trung Buenrostro MD S_[facility]ML[facility] [address] [address] 01/13/2023 09:50:12 01/13/2023 10:25:20 Pain in right sacroiliac joint [id number] 4876975 M53.3 Pain of ri ght hip joint 1845442443 19723 M25.551 [id number] MD GURPREET Herbert_[facility] [address] [address] 02/10/2023 10:21:30 02/10/2023 11:07:04 Neck pain 13285186 M54.2 Spinal miguel a nosis in cervical region 18697582 M48.02 [id number] John Mas MD [facility] [place] [address] [place] [address] 1 02/11/2023 09:16:51 02/11/2023 10:11:45 Malignant neoplasm of prostate 222746730 C61 :-TREATMEN T HISTORY:2012 - [facility] (Dr Zepeda at [facility]) - GS 3+4=7, pT3a03/2022 - Salvage IMRT + 6 mos ADT (PSA 0.18) PLAN:-q3mo s PSA through 01/2024, then q6mos through 12/2024, then annual thereafter Hormone se nsitive prostate cancer 874535420 Z19.1 Increased frequency of urination 481099163 R35.0 :Intermitt ently check UA and PVRContinu e Myrbetriq 25mg daily [id number] Bubba Alcala MD [facility] Internal [facility] [address] [place] [address] 1 04/22/2023 14:51:02 04/22/2023 16:05:43 Anticoagulant therapy 200479428 Z79.01 Spinal miguel a nosis in cervical region 68659451 M48.02 Chronic pain syndrome 37 4024351 G89.4 [id number] Bubba Alcala MD [facility] Internal [facility] [address] [place] [address] 1 05/06/2023 10:45:26 05/06/2023 10:59:29 Anticoagulant therapy 112852258 Z79.01 [id number] John Mas MD [facility] [address] [place] [address] 1 05/13/2023 11:09:20 05/13/2023 11:47:48 Malignant neoplasm of prostate 210951226 C61 :-TREATMEN T HISTORY:2012 - [facility] (Dr Zepeda at [facility]) - GS 3+4=7, pT3a03/2022 - Salvage IMRT + 6 mos ADT (PSA 0.18) PLAN:-q3mo s PSA through 01/2024, then q6mos through 12/2024, then annual thereafter Hormone se nsitive prostate cancer 929726839 Z19.1 Increased frequency of urination 459849328 R35.0 :Intermitt ently check UA and PVRContinu e Myrbetriq 25mg daily [id number] Bubba Alcala MD [facility] Internal Med [facility] [address] [address] 08/04/2023 14:46:38 08/04/2023 15:49:09 Administration of influenza vaccine 28390632 Z23 Anticoagulant therapy 18 1475954 Z79.01 Cholesterol screening 27 0623046 Z13.220 Screening for cardiovascular system disease 554868471 Z13.6 Nonischemi c congestive cardiomyopathy 2651346247 04 I42.0 Chronic ki dney disease stage 3 656472636 N18.30 Spinal miguel a nosis in cervical region 05638798 M48.02 Chronic de ep venous thrombosis of lower extremity 1663028762 83835 I82.509 History of pulmonary embolus 487181346 Z86.990 [id number] Jeremy Grijalva MD [facility]_[address] [address] 09/29/2023 10:39:27 09/29/2023 11:13:50 Pain of left wrist 4072865248 68204 M25.532 Arthritis of first carpometacarpal joint of left hand 3420055532 017882 M13.842 Sprain of left wrist 767 6702321 1776713 S63.502A [id number] Bubba Alcala MD [facility] Internal Med [facility] [address] [address] 11/09/2023 15:28:26 11/09/2023 16:55:32 Anticoagulant therapy 997415261 Z79.01 Rectal hemorrhage 913964 02 K62.5 Hyperlipidemia 81251640 E78.5 Long-term drug therapy 622571120 Z79.899 Chronic de ep venous thrombosis of lower extremity 5009218985 68730 I82.509 Chronic ki dney disease stage 3 601250042 N18.30 History of malignant neoplasm of prostate 199855857 Z85.46 History of pulmonary embolus 643165565 Z86.711 Nonischemi c congestive cardiomyopathy 4083584728 04 I42.0 Health Concerns Section Related Observation LastModified by Organization Detai ls LastModified Time None Recorded Concern Status LastModified by Organization Details LastModified Time None Recorded Advance Directives Directive N: papers provided Payers Encounter Date Sequence Insurance Name Policy Number Policy Abbasi Covered Member ID Abbasi Member ID Guarantor Name 05/06/2023 1 [employer] [facility] (MEDICARE REPLACEMENT/A DVANTAGE - HMO) [id number] Brennen Olson [id number] Brennen Olson 05/13/2023 1 [employer] (MEDICARE REPLACEMENT/A DVANTAGE - HMO) [id number] Brennen R Wesley [id number] Brennen R Veazie 08/04/2023 1 [employer] [facility] (MEDICARE REPLACEMENT/A DVANTAGE - HMO) [id number] Brennen R Wesley [id number] Brennen R Veazie 09/29/2023 1 [employer] [facility] (MEDICARE REPLACEMENT/A DVANTAGE - HMO) [id number] Brennen R Wesley [id number] Brennen R Veazie 11/09/2023 1 [employer] (MEDICARE REPLACEMENT/A DVANTAGE - HMO) [id number] Brennen Olson [id number] Brennen Olson Notes Date Note Type Note Provider Name and Address Organization Details Recorded Time 05/13/2023 text/html :02/11/2023 ORIGI NAL HPI - Patient peviously seen by Dr. Tomas, here to establish with me. Takes Myrbetriq 25mg for LUTS -INITIAL DIAGNOSIS/STAGE: TRUSBx = Unknown -TREATMENT HISTORY:05/2013 - [facility] (Dr Zepeda at [facility]) - GS 3+4=7, pT3a5/2021 - Salvage IMRT [...] when available)UA: negative for blood or infectionPVR: 11c John Mas MD [address] [facility], [place], [address], [place] [facility] 05/13/2023 11:48:16 08/04/2023 text/html cervical spinal stenosis no gait problems. Heart failure with reduced ejection fraction he has not had any decompensation symptomsCervical spinal stenosis his pain is fine is no myelopathy symptoms. Rhinitis stable with fluticasone. CKD 3 no new symptoms referable to thatHistory of PE INR 2.5 Bubba Alcala MD [address] [facility] [address], [place], [address], [employer] 08/16/2023 17:35:06 09/29/2023 text/html Patient returns with [...] noted by the patient. BENEDICT Chase [address] [facility], [facility] [address], [place], [address], [employer] 09/29/2023 11:27:08 11/09/2023 text/html cervical spinal stenosis [...] largely bright red Bubba Alcala MD [address] [facility], [place], [address], [facility] 11/09/2023 21:21:39
--- OUTSIDE RECORDS SUMMARY | 2025-03-13 11:21 | XMS_ITS | Encounter Summary ---
Author Organization [facility] Healthcare Address [address] [place] [address] Care Team Providers Care Laboratory Tech Name Role Phone Jas Alcala MD Primary Care Provider + [phone] Lucio Rosas MD Unavailable Bianca Hunter MD Unavailable + [phone] Hero Pinedo MD Unavailable [phone] Jas Alcala MD Primary Care Provider + [phone] Lon Tomas MD Unavailable [phone] Jaycee Teresa MD Unavailable [phone] Encounter Details Date Type Department Care Team (Late st Contact Info) Description 05/07/2022 Orders Only [facility] [address] [place] [address] Bryon Potter MD [address] [place], [place] [id number] Social History Tobacco Use Types Packs/Day Years [...] on file Legal Sex Male 9:38 AM [employer] Gender Identity Not on file Sexual Orientation Not on file 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 Not on file Not on file Retired Not on file Not on file Not on file documented as of this encounter Plan of Treatment Not on file documented as of this encounter Visit Diagnoses Not on filedocumented in this encounter Care Teams Laboratory Tech Relationship Specialty Start Date End Date Jas Alcala MD PCP - General Internal Medicine 02/26/18 01/03/25 Jas Alcala MD [address] [place] [address] PCP - General Internal Medicine 01/04/25 Lucio Rosas MD [address] [address] Consulting Physician Gastroenterology 11/28/24 Bianca Hunter MD [address] [facility] [address] [place] [address] Medical Oncologist/Middleware Administrator Medical Oncology 12/07/24 Hero Pinedo MD [address] [address] Radiation Oncologist Radiation Oncology 12/28/24 Lon Tomas MD [address] [place] [address] Consulting Physician Urology 01/04/25 Jaycee Teresa MD [address] [place] [address] Consulting Physician Cardiology 01/09/25 documented as of this encounter
--- OUTSIDE RECORDS SUMMARY | 2025-03-13 11:22 | XMS_ITS | Referral Summary ---
Author Organization [facility] Address [address] [place] [address] Care Team Providers Care Mexican Food Maker Name Role Phone Lucio Rosas MD Unavailable Bianca Hunter MD Unavailable [phone] Hero Pinedo MD Unavailable [phone] Jas Alcala MD Primary Care Provider [phone] Lon Tomas MD Unavailable [phone] Jaycee Teresa MD Unavailable [phone] Encounters Date Type Department Care Team Description 02/28/2025 Telephone [facility] Oncology [address] [place] [phone] Georgette Velasco RN 02/28/2025 12:30 PM CDT Clinical Support [facility] at [address] [address] Malignant neoplasm of lower third of esophagus (HCC); Anemia, unspecified type; History of pulmonary embolism 02/28/2025 1:00 PM CDT Office Visit [facility] Oncology [address] [place] [address] [place] [phone] Bianca Hunter MD Malignant neoplasm of lower third of esophagus (HCC) (Primary Dx) 02/27/2025 Completion of Therapy [facility] Building 2 Radiation Oncology [address] [place] [address] Hero Pinedo MD 02/27/2025 Telephone [facility] Oncology [address] [place] [address] Bianca Hunter MD INR results 02/27/2025 Orders Only RAD ONC TREATMENTS Miscellaneous, Not In File 02/27/2025 11:30 AM CDT Treatment [facility] 2 Radiation Oncology [address] [place] [address] Hero Pinedo MD 02/24/2025 Telephone [facility] Bone Marrow Transplant [address] [place] [phone] Ceci Antony NP 02/24/2025 3:00 PM CDT Lab [facility] at [address] [address] 02/24/2025 OTV [facility] 2 Radiation Oncology [address] [place] [address] Hero Pinedo MD 02/24/2025 Orders Only RAD ONC TREATMENTS Miscellaneous, Not In File 02/24/2025 12:30 PM CDT Infusion [facility] at [address] [phone] Malignant neoplasm of lower third of esophagus (HCC) (Primary Dx) 02/24/2025 11:30 AM CDT Treatment [facility] 2 Radiation Oncology [address] [place] [address] 02/23/2025 Orders Only RAD ONC TREATMENTS Miscellaneous, Not In File 02/23/2025 9:15 AM CDT Clinical Support [facility] at [address] [address] Malignant neoplasm of lower third of esophagus (HCC); Abnormal coagulation profile 02/23/2025 9:45 AM CDT Office Visit [facility] Oncology [address] [place] [address], [place] [address] Bianca Hunter MD Malignant neoplasm of lower third of esophagus (HCC) (Primary Dx); Abnormal coagulation profile 02/23/2025 11:30 AM CDT Treatment [facility] 2 Radiation Oncology [address] [place] [address] Hero Pinedo MD 02/23/2025 11:35 AM CDT Treatment [facility] 2 Radiation Oncology [address] [place] [address] Hero Pinedo MD 02/22/2025 Orders Only [facility] 2 Radiation Oncology [address] [place] [address] Hero Pinedo MD 02/22/2025 Orders Only [facility] Oncology [address] [place] [phone] Meme Dean RN 02/22/2025 Orders Only [facility] 2 Radiation Oncology [address] [place] [address] Hero Pinedo MD Malignant neoplasm of lower third of esophagus (HCC) (Primary Dx) 02/22/2025 Orders Only [facility] 2 Radiation Oncology [address] [place] [address] Hero Pinedo MD 02/22/2025 Orders Only RAD ONC TREATMENTS Miscellaneous, Not In File 02/22/2025 12:[address] [facility] at [address] [phone] Malignant neoplasm of lower third of esophagus (HCC) (Primary Dx) 02/22/2025 Orders Only [facility] 2 Radiation Oncology [address] [place] [address] Hero Pinedo MD Malignant neoplasm of lower third of esophagus (HCC) (Primary Dx) 02/22/2025 11:30 AM CDT Treatment [facility] 2 Radiation Oncology [address] [place] [address] 02/21/2025 Orders Only RAD ONC TREATMENTS Miscellaneous, Not In File 02/21/2025 11:30 AM CDT Treatment [facility] 2 Radiation Oncology [address] [place] [address] 02/20/2025 Orders Only RAD ONC TREATMENTS Miscellaneous, Not In File 02/20/2025 Orders Only [facility] Oncology [address] [place] [phone] Meme Dean, WILBER 02/20/2025 11:30 AM CDT Infusion [address] [place] [address] Malignant neoplasm of lower third of esophagus (HCC) (Primary Dx) 02/20/2025 Orders Only [facility] Oncology [address] [place] [phone] Meme Dean, RN Malignant neoplasm of lower third of esophagus (HCC) (Primary Dx) 02/20/2025 2:30 PM CDT Treatment [facility] 2 Radiation Oncology [address] [place] [address] 02/17/2025 OTV [facility] 2 Radiation Oncology [address] [place] [address] Hero Pinedo MD 02/17/2025 Orders Only RAD ONC TREATMENTS Miscellaneous, Not In File 02/17/2025 11:30 AM CDT Treatment [facility] 2 Radiation Oncology [address] [place] [address] 02/16/2025 Orders Only RAD ONC TREATMENTS Miscellaneous, Not In File 02/16/2025 12:00 PM CDT Infusion [address] [place] [address] Anemia, unspecified type (Primary Dx); History of pulmonary embolism 02/16/2025 1:30 PM CDT Clinical Support [facility] 2 Radiation Oncology [address] [place] [address] Malignant neoplasm of lower third of esophagus (HCC) (Primary Dx) 02/16/2025 11:00 AM CDT Treatment [facility] 2 Radiation Oncology [address] [place] [address] 02/15/2025 4:00 PM CDT Clinical Support [facility] at [address] [address] Anemia, unspecified type; History of pulmonary embolism; Malignant neoplasm of lower third of esophagus (HCC) 02/15/2025 Orders Only RAD ONC TREATMENTS Miscellaneous, Not In File 02/15/2025 11:30 AM CDT Treatment [facility] 2 Radiation Oncology [address] [place] [address] 02/14/2025 Orders Only RAD ONC TREATMENTS Miscellaneous, Not In File 02/14/2025 9:30 AM CDT Office Visit [facility] Otolaryngology [address] [place] [phone] Jairo Carr MD Mass of left parotid gland (Primary Dx); Malignant neoplasm of lower third of esophagus (HCC) 02/14/2025 11:30 AM CDT Treatment [facility] 2 Radiation Oncology [address] [place] [address] 02/13/2025 Orders Only RAD ONC TREATMENTS Miscellaneous, Not In File 02/13/2025 11:30 AM CDT Treatment [facility] 2 Radiation Oncology [address] [place] [address] 02/10/2025 OTV [facility] 2 Radiation Oncology [address] [place] [address] Hero Pinedo MD 02/10/2025 Orders Only RAD ONC TREATMENTS Miscellaneous, Not In File 02/10/2025 11:30 AM CDT Treatment [facility] 2 Radiation Oncology [address] [place] [address] 02/09/2025 Orders Only RAD ONC TREATMENTS Miscellaneous, Not In File 02/09/2025 1:00 PM CDT Office Visit [facility] Oncology [address] [place] [phone] Bianca Hunter MD Malignant neoplasm of lower third of esophagus (HCC) (Primary Dx) 02/09/2025 1:30 PM CDT Infusion [facility] at [address] [phone] Malignant neoplasm of lower third of esophagus (HCC) (Primary Dx) 02/09/2025 12:30 PM CDT Clinical Support [address] [address] Malignant neoplasm of lower third of esophagus (HCC); Anemia, unspecified type; History of pulmonary embolism 02/09/2025 11:30 AM CDT Treatment [facility] 2 Radiation Oncology [address] [place] [address] 02/08/2025 Orders Only RAD ONC TREATMENTS Miscellaneous, Not In File 02/08/2025 12:00 PM CDT Clinical Support [facility] 2 Radiation Oncology [address] [place] [address] Malignant neoplasm of lower third of esophagus (HCC) (Primary Dx) 02/08/2025 11:30 AM CDT Treatment [facility] 2 Radiation Oncology [address] [place] [address] 02/07/2025 Orders Only RAD ONC TREATMENTS Miscellaneous, Not In File 02/07/2025 11:30 AM CDT Treatment [facility] 2 Radiation Oncology [address] [place] [address] 02/06/2025 Orders Only RAD ONC TREATMENTS Miscellaneous, Not In File 02/06/2025 11:30 AM CDT Treatment [facility] 2 Radiation Oncology [address] [place] [address] 02/03/2025 OTV [facility] 2 Radiation Oncology [address] [place] [address] Hero Pinedo MD 02/03/2025 Orders Only RAD ONC TREATMENTS Miscellaneous, Not In File 02/03/2025 11:30 AM CDT Treatment [facility] 2 Radiation Oncology [address] [place] [address] 02/02/2025 Orders Only [facility] Oncology [address] [place] [phone] Meme Dean RN 02/02/2025 Orders Only RAD ONC TREATMENTS Miscellaneous, Not In File 02/02/2025 Orders Only [facility] Oncology [address] [place] [phone] Bianca Hunter MD 02/02/2025 12:15 PM CDT Clinical Support [facility] Center at [address] [address] Malignant neoplasm of lower third of esophagus (HCC) 02/02/2025 12:[address] [facility] at [address] [place] [address] Malignant neoplasm of lower third of esophagus (HCC) (Primary Dx) 02/02/2025 11:30 AM CDT Treatment [facility] 2 Radiation Oncology [address] [place] [address] 02/01/2025 Orders Only RAD ONC TREATMENTS Miscellaneous, Not In File 02/01/2025 9:15 AM CDT Clinical Support [facility] [place] at [address] [address] Anemia, unspecified type; History of pulmonary embolism 02/01/2025 12:30 PM CDT Clinical Support [facility] 2 Radiation Oncology [address] [place] [address] Malignant neoplasm of lower third of esophagus (HCC) (Primary Dx); Malignant neoplasm of prostate (HCC); Miller's esophagus with high grade dysplasia; Atrial fibrillation, unspecified type (HCC); Iron deficiency anemia, unspecified iron deficiency anemia type 02/01/2025 12:[address] [facility] at [address] [place] [address] Anemia, unspecified type (Primary Dx); History of pulmonary embolism 02/01/2025 11:30 AM CDT Treatment [facility] 2 Radiation Oncology [address] [place] [address] 01/31/2025 Orders Only RAD ONC TREATMENTS Miscellaneous, Not In File 01/31/2025 11:30 AM CDT Treatment [facility] 2 Radiation Oncology [address] [place] [address] 01/30/2025 Orders Only RAD ONC TREATMENTS Miscellaneous, Not In File 01/30/2025 11:30 AM CDT Treatment [facility] 2 Radiation Oncology [address] [place] [address] 01/27/2025 12:02 PM CDT - 01/27/2025 11:59 PM CDT Hospital Encounter [facility] MOB 1 DIAG IMG [address] [place] [address] Malignant neoplasm of lower third of esophagus (HCC); Acute pain Discharge Disposition: Discharge to home or self care 01/27/2025 OTV [facility] 2 Radiation Oncology [address] [place] [address] Hero Pinedo MD 01/27/2025 Orders Only RAD ONC TREATMENTS Miscellaneous, Not In File 01/27/2025 11:30 AM CDT Treatment [facility] 2 Radiation Oncology [address] [place] [address] 01/26/2025 Orders Only RAD ONC TREATMENTS Miscellaneous, Not In File 01/26/2025 12:15 PM CDT Clinical Support [facility] at [address] [address] Malignant neoplasm of lower third of esophagus (HCC) 01/26/2025 1:45 PM CDT Infusion [facility] at [address] [place] [address] Malignant neoplasm of lower third of esophagus (HCC) (Primary Dx) 01/26/2025 12:45 PM CDT Office Visit [facility] Oncology [address] [place] [phone] Bianca Hunter MD Malignant neoplasm of lower third of esophagus (HCC) (Primary Dx); Acute pain 01/26/2025 11:30 AM CDT Treatment [facility] 2 Radiation Oncology [address] [place] [address] 01/25/2025 Orders Only RAD ONC TREATMENTS Miscellaneous, Not In File 01/25/2025 11:30 AM CDT Treatment [facility] 2 Radiation Oncology [address] [place] [address] 01/24/2025 Orders Only RAD ONC TREATMENTS Miscellaneous, Not In File 01/24/2025 11:30 AM CDT Treatment [facility] 2 Radiation Oncology [address] [place] [address] 01/23/2025 Orders Only RAD ONC TREATMENTS Miscellaneous, Not In File 01/23/2025 11:30 AM CDT Treatment [facility] 2 Radiation Oncology [address] [place] [address] 01/20/2025 OTV [facility] 2 Radiation Oncology [address] [place] [address] Kelin Patterson MD Malignant neoplasm of lower third of esophagus (HCC) (Primary Dx) 01/20/2025 Orders Only RAD ONC TREATMENTS Miscellaneous, Not In File 01/20/2025 11:30 AM CDT Treatment [facility] 2 Radiation Oncology [address] [place] [address] 01/19/2025 Orders Only RAD ONC TREATMENTS Miscellaneous, Not In File 01/19/2025 10:[address] [facility] at [address] [phone] Malignant neoplasm of lower third of esophagus (HCC) (Primary Dx) 01/19/2025 9:00 AM CDT Clinical Support [address] [address] Malignant neoplasm of lower third of esophagus (HCC) 01/19/2025 9:30 AM CDT Office Visit [facility] Oncology [address] [place] [phone] Bianca Hunter MD Malignant neoplasm of lower third of esophagus (HCC) (Primary Dx) 01/19/2025 8:30 AM CDT Treatment [facility] 2 Radiation Oncology [address] [place] [address] Lon Marti MD 01/19/2025 8:45 AM CDT Treatment [facility] 2 Radiation Oncology [address] [place] [address] Hero Pinedo MD 01/18/2025 9:30 AM CDT Clinical Support [address] [address] Anemia, unspecified type; History of pulmonary embolism 01/18/2025 1:30 PM CDT Clinical Support [facility] 2 Radiation Oncology [address] [place] [address] Malignant neoplasm of lower third of esophagus (HCC) (Primary Dx); Malignant neoplasm of prostate (HCC); Miller's esophagus with high grade dysplasia; History of colon polyps; Iron deficiency anemia, unspecified iron deficiency anemia type 01/18/2025 1:[address] [facility] at [facility] [address] [facility] [address] [place] [address] Anemia, unspecified type (Primary Dx); History of pulmonary embolism 01/16/2025 7:55 PM CDT Treatment [facility] 2 Radiation Oncology [address] [place] [address] 01/13/2025 7:55 PM CDT Treatment [facility] 2 Radiation Oncology [address] [place] [address] 01/11/2025 9:31 AM CDT - 01/11/2025 11:59 PM CDT Hospital Encounter [facility] [place] [address] Bianca Hunter MD Malignant neoplasm of lower third of esophagus (HCC) Discharge Disposition: Discharge to home or self care 01/09/2025 Telephone [facility] Surgery [facility] [address] [phone] Lorie Little NP 01/06/2025 Telephone [facility] [address] [place] [address] Shaniqua Chandler NP 01/06/2025 Telephone [facility] Radiology [address] [place] [address] Erma Box RN 01/06/2025 6:58 AM MAGNETIC TESTING TECHNICIAN - 01/06/2025 11:59 PM MAGNETIC TESTING TECHNICIAN Hospital Encounter [facility] Nuclear Medicine [address] [place] [address] Atrial fibrillation, unspecified type (HCC); Coronary artery disease, unspecified vessel or lesion type, unspecified whether angina present, unspecified whether levelock or transplanted heart Discharge Disposition: Discharge to home or self care 01/06/2025 6:58 AM MAGNETIC TESTING TECHNICIAN - 01/06/2025 11:59 PM MAGNETIC TESTING TECHNICIAN Hospital Encounter [facility] Nuclear Medicine [facility] [place] [address] Discharge Disposition: Discharge to home or self care 01/06/2025 6:58 AM MAGNETIC TESTING TECHNICIAN - 01/06/2025 11:59 PM MAGNETIC TESTING TECHNICIAN Hospital Encounter [facility] Nuclear Medicine [facility] [place] [address] Atrial fibrillation, unspecified type (HCC); Coronary artery disease, unspecified vessel or lesion type, unspecified whether angina present, unspecified whether levelock or transplanted heart Discharge Disposition: Discharge to home or self care 01/05/2025 7:24 AM MAGNETIC TESTING TECHNICIAN - 01/05/2025 11:59 PM MAGNETIC TESTING TECHNICIAN Hospital Encounter [facility] Respiratory Therapy [address] [place] [address] Atrial fibrillation, unspecified type (HCC); Coronary artery disease, unspecified vessel or lesion type, unspecified whether angina present, unspecified whether levelock or transplanted heart Discharge Disposition: Discharge to home or self care 01/04/2025 Orders Only [facility] Oncology [address] [place] [phone] Meme Dean RN Malignant neoplasm of lower third of esophagus (HCC) (Primary Dx) 01/04/2025 9:30 AM MAGNETIC TESTING TECHNICIAN Treatment [facility] 2 Radiation Oncology [address] [place] [address] Hero Pinedo MD 01/04/2025 11:00 AM MAGNETIC TESTING TECHNICIAN Office Visit [facility] Hematology [address] [place] [phone] Nena Cano NP Anemia, unspecified type (Primary Dx); History of pulmonary embolism 01/04/2025 9:00 AM MAGNETIC TESTING TECHNICIAN Consult [facility] 2 Radiation Oncology [address] [place] [address] Hero Pinedo MD Malignant neoplasm of lower third of esophagus (HCC) 01/04/2025 8:00 AM MAGNETIC TESTING TECHNICIAN Lab [facility] [place] at [address] [address] Anemia, unspecified type; History of pulmonary embolism 12/28/2024 Orders Only [facility] Oncology [address] [place] [phone] Meme Dean RN 12/28/2024 Telephone [facility] Building 2 Radiation Oncology [address] [place] [address] Alissa Morales 12/27/[address] [facility] at [address] [phone] Francie Hassan, WILBER 12/27/2024 1:30 PM MAGNETIC TESTING TECHNICIAN Lab [facility] Center at [address] [address] Anemia, unspecified type; History of pulmonary embolism 12/27/2024 2:00 PM MAGNETIC TESTING TECHNICIAN Office Visit [facility] Oncology [address] [place] [phone] Bianca Hunter MD Malignant neoplasm of lower third of esophagus (HCC) (Primary Dx) 12/22/2024 Orders Only [facility] Surgery [address] [facility] [address] [place] [address] Charlie Juarez MD Atrial fibrillation, unspecified type (HCC) (Primary Dx); Coronary artery disease, unspecified vessel or lesion type, unspecified whether angina present, unspecified whether levelock or transplanted heart 12/22/2024 8:30 AM MAGNETIC TESTING TECHNICIAN Office Visit [facility] Surgery [address] [place] [phone] Charlie Juarez MD Malignant neoplasm of lower third of esophagus (HCC) (Primary Dx) 12/16/2024 7:30 AM MAGNETIC TESTING TECHNICIAN - 12/16/2024 11:59 PM MAGNETIC TESTING TECHNICIAN Hospital Encounter [facility] Office Building [address] [place] [address] Malignant neoplasm of lower third of esophagus (HCC) Discharge Disposition: Discharge to home or self care 12/14/[address] [facility] [place] at [address] [place] [address] Abigail Hernandez, WILBER 12/14/2024 Orders Only [facility] Hematology [address] [facility] Floor 6 [place] [address] eGrtrude Zhang Anemia, unspecified type (Primary Dx); History of pulmonary embolism 12/14/2024 9:00 AM MAGNETIC TESTING TECHNICIAN Lab [facility] [place] at [address] [address] Anemia, unspecified type; History of pulmonary embolism from Last 3 Months Allergies Active Allergy [...] mg tabletIndicati ons:Anemia, unspecified type Last took 11/10/24 A ctive magnesium oxide (MAG-OX) 400 mg (241.3 mg elemental magnesium) tabletIndicati ons:Anemia, unspecified type Take 1 tablet (400 mg total) by mouth 2 (two) times a day Active atorvastatin (LIPITOR) 10 mg tabletIndicati ons:Anemia, [...] He also has a history of an CA and PE. He has a history of [...] 01/04/2025 Assessment & Plan (11/25/2024 9:39 AM MAGNETIC TESTING TECHNICIAN): EGD November 2024 with nodules in the distal esophagus, pathology with 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 -Pathology discuss in detail and all questions were answered -Refer for EUS -Refer to Oncology and Cardiothoracic surgery Miller's esophagus with high grade dysplasia Assessment & Plan (11/25/2024 9:41 AM MAGNETIC TESTING TECHNICIAN): EGD September 2024 with irregular Z-line and gastric ulcers. Pathology with Barretts esophagus, indefinite for dysplasia. Repeat EGD November 2024 with Barretts esophagus, pathology with high-grade dysplasia. -Continue pantoprazole 40 mg p.o. b.i.d. History of colon polyps 11/25/2024 Assessment & Plan (11/25/2024 9:42 AM MAGNETIC TESTING TECHNICIAN): Colonoscopy November 2024 with multiple tubular adenomas. -Repeat colonoscopy November 2027 Gastric ulcer 09/23/2024 Anemia due to blood loss 09/23/2024 Rectal bleeding 08/22/2024 Radiation proctitis 08/22/2024 Assessment & Plan (11/25/2024 9:41 AM MAGNETIC TESTING TECHNICIAN): Colonoscopy November 2024 with severe radiation proctitis status post APC. 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 [employer] 08/29/2029 [id number] / / [id number] Procedures Procedure Name Priority Date/Time Associated Diagnosis [...] Read Routine (OP Routine) 01/06/2025 9:00 AM MAGNETIC TESTING TECHNICIAN Atrial fibrillation, unspecified type (HCC) Coronary artery disease, unspecified vessel or lesion type, unspecified whether angina present, unspecified whether [place] or transplanted heart NM MPI SPECT (REST AND/OR STRESS) MULTIPLE STUDIES Schedule Routine, Read Routine (OP Routine) 01/06/2025 9:00 AM MAGNETIC TESTING TECHNICIAN Atrial fibrillation, unspecified type (HCC) Coronary artery disease, unspecified vessel or lesion type, unspecified whether angina present, unspecified whether [place] or transplanted heart PULMONARY FUNCTION TEST (PFT) Routine 01/05/2025 8:10 AM MAGNETIC TESTING TECHNICIAN Atrial fibrillation, unspecified type (HCC) Coronary artery disease, unspecified vessel or lesion type, unspecified whether angina present, unspecified whether [place] or transplanted heart EGFR Routine 01/04/2025 8:34 AM MAGNETIC TESTING TECHNICIAN Anemia, unspecified type History of pulmonary embolism DIFFERENTIAL AUTO Routine 01/04/2025 8:3 4 AM MAGNETIC TESTING TECHNICIAN Anemia, unspecified type History of pulmonary embolism CBC WITH AUTO DIFFERENTIAL Routine 01/04/2025 8:34 AM MAGNETIC TESTING TECHNICIAN Anemia, unspecified type History of pulmonary embolism COMPREHENSIVE METABOLIC PANEL Routine 01/04/2025 8:34 AM MAGNETIC TESTING TECHNICIAN Anemia, unspecified type History of pulmonary embolism FERRITIN Routine 01/04/2025 8:34 AM MAGNETIC TESTING TECHNICIAN Anemia, unspecified type History of pulmonary embolism IRON PROFILE W/ IBC Routine 01/04/2025 8 :34 AM MAGNETIC TESTING TECHNICIAN Anemia, unspecified type History of pulmonary embolism RETICULOCYTES Routine 01/04/2025 8:34 AM MAGNETIC TESTING TECHNICIAN Anemia, unspecified type History of pulmonary embolism EGFR Routine 12/27/2024 1:25 PM MAGNETIC TESTING TECHNICIAN Anemia, unspecified type History of pulmonary embolism DIFFERENTIAL AUTO Routine 12/27/2024 1:2 5 PM MAGNETIC TESTING TECHNICIAN Anemia, unspecified type History of pulmonary embolism CBC WITH AUTO DIFFERENTIAL Routine 12/27/2024 1:25 PM MAGNETIC TESTING TECHNICIAN Anemia, unspecified type History of pulmonary embolism COMPREHENSIVE METABOLIC PANEL Routine 12/27/2024 1:25 PM MAGNETIC TESTING TECHNICIAN Anemia, unspecified type History of pulmonary embolism FERRITIN Routine 12/27/2024 1:25 PM MAGNETIC TESTING TECHNICIAN Anemia, unspecified type History of pulmonary embolism IRON PROFILE W/ IBC Routine 12/27/2024 1 :25 PM MAGNETIC TESTING TECHNICIAN Anemia, unspecified type History of pulmonary embolism RETICULOCYTES Routine 12/27/2024 1:25 PM MAGNETIC TESTING TECHNICIAN Anemia, unspecified type History of pulmonary embolism PET/CT FDG SKULL TO THIGH Schedule Routine, Read Routine (OP Routine) 12/16/2024 9:43 AM MAGNETIC TESTING TECHNICIAN Malignant neoplasm of lower third of esophagus (HCC) POCT GLUCOSE DEVICE Routine 12/16/2024 7 :51 AM MAGNETIC TESTING TECHNICIAN EGFR Routine 12/14/2024 9:08 AM MAGNETIC TESTING TECHNICIAN Anemia, unspecified type History of pulmonary embolism DIFFERENTIAL AUTO Routine 12/14/2024 9:0 8 AM MAGNETIC TESTING TECHNICIAN Anemia, unspecified type History of pulmonary embolism CBC WITH AUTO DIFFERENTIAL Routine 12/14/2024 9:08 AM MAGNETIC TESTING TECHNICIAN Anemia, unspecified type History of pulmonary embolism COMPREHENSIVE METABOLIC PANEL Routine 12/14/2024 9:08 AM MAGNETIC TESTING TECHNICIAN Anemia, unspecified type History of pulmonary embolism FERRITIN Routine 12/14/2024 9:08 AM MAGNETIC TESTING TECHNICIAN Anemia, unspecified type History of pulmonary embolism IRON PROFILE W/ IBC Routine 12/14/2024 9 :08 AM MAGNETIC TESTING TECHNICIAN Anemia, unspecified type History of pulmonary embolism RETICULOCYTES Routine 12/14/2024 9:08 AM MAGNETIC TESTING TECHNICIAN Anemia, unspecified type History of pulmonary embolism CT CHEST ABDOMEN PELVIS W CONTRAST Schedule Routine, Read Routine (OP Routine) 12/13/2024 7:09 AM MAGNETIC TESTING TECHNICIAN Malignant neoplasm of lower third of esophagus (HCC) COLONOSCOPY 11/17/2024 9:34 AM MAGNETIC TESTING TECHNICIAN from Last 3 Months or Most Recently Relevant to Health Maintenance Results * (ABNORMAL) Protime-INR (02/28/2025 12:40 PM CDT) PT 41.1(H) 12.0 - 14.6 sec Comment: Ref Range High Testing performed by: [address] [address] INR 4.4(H) 0.9 - 1.2 ISAAC Comment: Ref Range High Interpretive data Oral anticoagulant therapeutic ranges: Venous thromboembolism prophylaxis or treatment: 2.0-3.0 CARDIOLOGY Standard range: 2.0-3.0 High-intensity range: 2.5-3.5 Refer to indication-specific guidelines for appropriate target ranges for prosthetic heart valve replacement. Current interpretive data was last revised on 2019. Testing performed by: [address] [address] Blood 02/28/2025 12:4 0 PM CDT 02/28/2025 1:32 PM CDT us Jas Alcala MD LAB BLOOD ORDERABLES Final R esult Performing Organization Address City/[facility]/ZIP Co de Phone Number [facility] [address] [place] [address] * Blood smear review (02/28/2025 12:03 PM CDT) RBC morphology Consistent with RBC Indicies Comment:Testing performed by : [address] [address] Platelet estimate Adequate ISAAC Comment:Testing performed by : [address] [address] Blood 02/28/2025 12:0 3 PM CDT 02/28/2025 12:05 PM CDT Bianca Hunter MD LAB BLOOD ORDERABLES Final Result Performing Organization Address [facility] Co de Phone Number [place] [address] [place] [address] * eGFR (02/28/2025 12:03 PM CDT) eGFR [...] was last reviewed 2021. Testing performed by: [address] [address] Blood 02/28/2025 12:0 3 PM CDT 02/28/2025 12:05 PM CDT Bianca Hunter MD LAB BLOOD ORDERABLES Final Result IS[facility]AC [address] [facility] [place] [address] * (ABNORMAL) Differential, auto (02/28/2025 12:03 PM CDT) Neutrophil abs 0.91(L) 1.50 - 6.50 K/cumm Comment:Testing performed by : [address] [address] Imm gran abs 0.06 0.00 - 0.10 K/cumm ISAAC Comment:Testing performed by : [address] [address] Lymphocyte abs 0.33(L) 0.80 - 3.30 K/cumm ISAAC Comment:Testing performed by : [address] [address] Monocyte abs 0.41 0.20 - 0.80 K/cumm ISAAC Comment:Testing performed by : [address] [address] Eosinophil abs 0.04 0.00 - 0.50 K/cumm ISAAC Comment:Testing performed by : [address] [address] Basophil abs 0.02 0.00 - 0.10 K/cumm [facility] Comment:Testing performed by : [address] [address] Neutrophil pct 51.4 % ISAAC Comment: Differential consistent with previous result. Interpretive Data Percent cell count reference ranges are not reported, since discordance with absolute values may lead to misinterpretation of CBC data. Current Interpretive Data was last revised on 2018. Testing performed by: [address] [address] Imm gran pct 3.4 % ISAAC Comment: Interpretive Data Percent cell count reference ranges are not reported, since discordance with absolute values may lead to misinterpretation of CBC data. Current Interpretive Data was last revised on 2018. Testing performed by: [address] [address] Lymphocyte pct 18.6 % [facility] Comment: Interpretive Data Percent cell count reference ranges are not reported, since discordance with absolute values may lead to misinterpretation of CBC data. Current Interpretive Data was last revised on 2018. Testing performed by: [address] [address] Monocyte pct 23.2 % [facility] Comment: Interpretive Data Percent cell count reference ranges are not reported, since discordance with absolute values may lead to misinterpretation of CBC data. Current Interpretive Data was last revised on 2018. Testing performed by: [address] [address] Eosinophil pct 2.3 % [facility] Comment: Interpretive Data Percent cell count reference ranges are not reported, since discordance with absolute values may lead to misinterpretation of CBC data. Current Interpretive Data was last revised on 2018. Testing performed by: [address] [address] Basophil pct 1.1 % [facility] Comment: Interpretive Data Percent cell count reference ranges are not reported, since discordance with absolute values may lead to misinterpretation of CBC data. Current Interpretive Data was last revised on 2018. Testing performed by: [address] [address] Blood 02/28/2025 12:0 3 PM CDT 02/28/2025 12:05 PM CDT us Bianca Hunter MD LAB BLOOD ORDERABLES Final Result ISAAC SERNA [address] [facility] [place] [address] * (ABNORMAL) Iron profile w/ IBC (02/28/2025 12:03 PM CDT) Iron 56 50 - 150 mcg/dL Comment:Testing performed by : [address] [address] TIBC 164(L) 250 - 400 mcg/dL ISAAC SERNA Comment:Testing performed by : [address] [address] Transferrin saturation 34 20 - 50 % IS[facility]AC SERNA Comment:Testing performed by : [address] [address] Blood 02/28/2025 12:0 3 PM CDT 02/28/2025 1:32 PM CDT us Nena Cano TECHNOLOGY ASSISTANT LAB BLOOD ORDERABLES Final Result IS[facility]AC [facility] [place] [address] * (ABNORMAL) CBC with auto differential (02/28/2025 12:03 PM CDT) [facility] WBC 1.77(L) 3.80 - 9.90 K/cumm Comment:Testing performed by : [address] [address] Hgb 9.3(L) 13.0 - 17.5 g/dL IS[facility]AC SERNA Comment:Testing performed by : [address] [address] Hct 28.9(L) 38.9 - 50.3 % [facility] SERNA Comment:Testing performed by : [address] [address] Plt 168 150 - 400 K/cumm ISAAC SERNA Comment:Testing performed by : [address] [address] MPV 9.5 9.1 - 12.3 fL IS[facility]AC SERNA Comment:Testing performed by : [address] [address] RBC 3.22(L) 4.30 - 5.80 M/cumm ISAAC SERNA Comment:Testing performed by : [address] [address] MCV 89.8 81.3 - 96.4 fL [facility]AC SERNA Comment:Testing performed by : [address] [address] MCH 28.9 27.1 - 33.3 pg IS[facility]AC SERNA Comment:Testing performed by : [address] [address] MCHC 32.2(L) 32.3 - 35.7 g/dL ISAAC SERNA Comment:Testing performed by : [address] [address] RDW CV 18.7(H) 11.1 - 14.9 % ISAAC Comment:Testing performed by : [address] [address] RDW SD 58.7(H) 35.7 - 48.1 fL ISAAC SERNA Comment:Testing performed by : [address] [address] NRBC abs 0.00 0.00 - 0.01 K/cumm ISAAC Comment:Testing performed by : [address] [address] ANC Prelim 0.91(L) 1.50 - 6.50 K/cumm ISAAC Comment: Interpretive Data The rapid ANC is a preliminary automated count and may vary from the final ANC (Neut Abs) reported in the WBC differential that follows. Current interpretive data was last revised 2025. Testing performed by: [address] [address] Blood 02/28/2025 12:0 3 PM CDT 02/28/2025 12:05 PM CDT us Bianca Hunter MD LAB BLOOD ORDERABLES Final Result ISAAC SERNA [address] [facility] [place] [address] * (ABNORMAL) Reticulocyte Count (02/28/2025 12:03 PM CDT) Retics, absolute 86 20 - 87 K/cumm Comment:Testing performed by : [address] [address] Retics 2.7 0.4 - 2.9 % IS[facility]AC SERNA Comment:Testing performed by : [address] [address] Reticulocyte Hgb 30.4(L) 30.5 - 38.0 pg ISAAC SERNA Comment:Testing performed by : [address] [address] Blood 02/28/2025 12:0 3 PM CDT 02/28/2025 12:05 PM CDT Nena Cano TECHNOLOGY ASSISTANT LAB BLOOD ORDERABLES Final Result Performing Organization Address City/[facility]/ZIP Co de Phone Number DAYANA[address] [address] * Ferritin (02/28/2025 12:03 PM CDT) Pathologist [facility] Ferritin 208 30 - 400 ng/mL Comment:Testing performed by : [address] [address] Blood 02/28/2025 12:0 3 PM CDT 02/28/2025 1:32 PM CDT Nena Cano TECHNOLOGY ASSISTANT LAB BLOOD ORDERABLES Final Result Performing Organization Address City/[facility]/ZIP Co de Phone Number [address] [address] * (ABNORMAL) Comprehensive metabolic panel (02/28/2025 12:03 PM CDT) Pathologist [facility] Sodium 138 135 - 145 mmol/L Comment:Testing performed by : [address] [address] Potassium, pl 3.6 3.3 - 4.9 mmol/L IS[facility]AC SERNA Comment:Testing performed by : [address] [address] Chloride 106 97 - 110 mmol/L ISAAC SERNA Comment:Testing performed by : [address] [address] CO2 22 22 - 32 mmol/L [facility] Comment:Testing performed by : [address] [address] Anion gap 10 2 - 15 mmol/L [facility] Comment:Testing performed by : [address] [address] BUN 12 6 - 25 mg/dL ISAAC Comment:Testing performed by : [address] [address] Creatinine 1.10 0.80 - 1.30 mg/dL [facility] Comment:Testing performed by : [address] [address] Glucose 91 70 - 199 mg/dL [facility] Comment: Interpretive Data Fasting glucose >/= [...] was last revised 2022. Testing performed by: [address] [address] Calcium 8.7 8.5 - 10.3 mg/dL [facility] Comment:Testing performed by : [address] [address] Bilirubin, total 0.4 0.1 - 1.2 mg/dL [facility] Comment:Testing performed by : [address] [address] Protein, pl 5.6(L) 6.5 - 8.5 g/dL IS[facility] Comment:Testing performed by : [address] [address] Albumin 3.2(L) 3.5 - 5.0 g/dL IS[facility]AC Comment:Testing performed by : [address] [address] Alk phos 64 40 - 130 Units/L ISAAC Comment:Testing performed by : [address], [address] ALT 14 7 - 55 Units/L ISACA Comment:Testing performed by : [address] [address] AST 19 10 - 50 Units/L IS[facility]AC Comment:Testing performed by : [address], [address] Blood 02/28/2025 12:0 3 PM CDT 02/28/2025 12:05 PM CDT us Bianca Hunter MD LAB BLOOD ORDERABLES Final Result ISAAC [address] [facility] [place] [address] * RAD ONC ARIA SESSION SUMMARY (02/27/2025 [...] Comment: Ref Range High Testing performed by: [address], [address] INR 5.9(C) 0.9 - 1.2 ISAAC Comment: Ref Range High Critical value. Results called to and read back by: Critical Result called to and read back by Ceci Antony NP for [facility], DATE: 2025-02-24 18:09:13 BY: Adrianna Mascorro MLS [email or web address] Interpretive data Oral anticoagulant therapeutic ranges: Venous thromboembolism prophylaxis or treatment: 2.0-3.0 CARDIOLOGY Standard range: 2.0-3.0 High-intensity range: 2.5-3.5 Refer to indication-specific guidelines for appropriate target ranges for prosthetic heart valve replacement. Current interpretive data was last revised on 2019. Testing performed by: [facility], [address] [place] [address]., [address] Blood 02/24/2025 2:55 PM CDT 02/24/2025 4:04 PM CDT us Jas Alcala MD LAB BLOOD ORDERABLES Final R esult [facility] [address] [facility] [place] [address] * RAD ONC ARIA SESSION SUMMARY (02/24/2025 [...] ORD ERABLES Final Result Performing Organization Address City/State/[facility] Co de Phone Number DION * eGFR (02/23/2025 9:31 AM CDT) Pathologist [facility] eGFR 63 >=60 mL/min/1. 73 m2 Comment: [...] reviewed 2021. Testing performed by: [facility], [address] [place] [address], [place]., [address] Blood 02/23/2025 9:31 AM CDT 02/23/2025 9:46 AM CDT us Bianca Hunter MD LAB BLOOD ORDERABLES Final Result [facility] [address] [facility] [place] [address] * (ABNORMAL) Differential, auto (02/23/2025 9:31 AM CDT) Neutrophil abs 0.19(C) 1.50 - 6.50 K/cumm Comment: This result has been called to Meme Dean RN Epic Secure Chat by [id number] on 02/23/2025 09:58:21, and has been read back. Testing performed by: [address] [address] Imm gran abs 0.01 0.00 - 0.10 K/cumm ISAAC Comment:Testing performed by : [address] [address] Lymphocyte abs 0.20(L) 0.80 - 3.30 K/cumm ISAAC Comment:Testing performed by : [address] [address] Monocyte abs 0.40 0.20 - 0.80 K/cumm ISAAC Comment:Testing performed by : [address] [address] Eosinophil abs 0.03 0.00 - 0.50 K/cumm ISAAC Comment:Testing performed by : [address] [address] Basophil abs 0.01 0.00 - 0.10 K/cumm ISAAC Comment:Testing performed by : [address] [address] Neutrophil pct 22.6 % IS[facility] Comment: Interpretive Data Percent cell count reference ranges are not reported, since discordance with absolute values may lead to misinterpretation of CBC data. Current Interpretive Data was last revised on 2018. Testing performed by: [address] [address] Imm gran pct 1.2 % [facility] Comment: Interpretive Data Percent cell count reference ranges are not reported, since discordance with absolute values may lead to misinterpretation of CBC data. Current Interpretive Data was last revised on 2018. Testing performed by: [address] [address] Lymphocyte pct 23.8 % [facility] Comment: Interpretive Data Percent cell count reference ranges are not reported, since discordance with absolute values may lead to misinterpretation of CBC data. Current Interpretive Data was last revised on 2018. Testing performed by: [address] [address] Monocyte pct 47.6 % [facility] Comment: Interpretive Data Percent cell count reference ranges are not reported, since discordance with absolute values may lead to misinterpretation of CBC data. Current Interpretive Data was last revised on 2018. Testing performed by: [address] [address] Eosinophil pct 3.6 % [facility] Comment: Interpretive Data Percent cell count reference ranges are not reported, since discordance with absolute values may lead to misinterpretation of CBC data. Current Interpretive Data was last revised on 2018. Testing performed by: [address] [address] Basophil pct 1.2 % [facility] Comment: Interpretive Data Percent cell count reference ranges are not reported, since discordance with absolute values may lead to misinterpretation of CBC data. Current Interpretive Data was last revised on 2018. Testing performed by: [address] [address] Blood 02/23/2025 9:31 AM CDT 02/23/2025 9:46 AM CDT us Bianca Hunter MD LAB BLOOD ORDERABLES Final Result [facility] [address] [facility] [place] [address] * (ABNORMAL) CBC with auto differential (02/23/2025 9:31 AM CDT) WBC 0.84(C) 3.80 - 9.90 K/cumm Comment: This result has been called to Meme Dean RN Epic Secure Chat by [id number] on 02/23/2025 09:58:21, and has been read back. Testing performed by: [address] [address] Hgb 9.0(L) 13.0 - 17.5 g/dL IS[facility] Comment:Testing performed by : [address] [address] Hct 28.2(L) 38.9 - 50.3 % C[facility]ADAM Comment:Testing performed by : [address] [address] Plt 164 150 - 400 K/cumm ISAAC Comment:Testing performed by : [address], [address] MPV 9.3 9.1 - 12.3 fL [facility] Comment:Testing performed by : [address], [address] RBC 3.14(L) 4.30 - 5.80 M/cumm ISAAC Comment:Testing performed by : [address] [address] MCV 89.8 81.3 - 96.4 fL [facility] Comment:Testing performed by : [address], [address] MCH 28.7 27.1 - 33.3 pg [facility] Comment:Testing performed by : [address] [address] MCHC 31.9(L) 32.3 - 35.7 g/dL IS[facility] Comment:Testing performed by : [address], [address] RDW CV 18.1(H) 11.1 - 14.9 % [facility] Comment:Testing performed by : [address] [address] RDW SD 57.3(H) 35.7 - 48.1 fL [facility] Comment:Testing performed by : [address] [address] NRBC abs 0.00 0.00 - 0.01 K/cumm ISAAC DAPHNE Comment:Testing performed by : [address] [address] ANC Prelim 0.19(L) 1.50 - 6.50 K/cumm IS[facility] Comment: Interpretive Data The rapid ANC is a preliminary automated count and may vary from the final ANC (Neut Abs) reported in the WBC differential that follows. Current interpretive data was last revised 2025. Testing performed by: [address] [address] Morphologic Screen Results confirmed by manual morphology review. IS[facility] Comment:Testing performed by : [address] [address] Blood 02/23/2025 9:31 AM CDT 02/23/2025 9:46 AM CDT us Bianca Hunter MD LAB BLOOD ORDERABLES Final Result [facility] [address] [facility] [place] [address] * (ABNORMAL) Protime-INR (02/23/2025 9:31 AM CDT) PT 49.1(H) 12.0 - 14.6 sec Comment: Ref Range High Testing performed by: [address] [address] INR 5.5(C) 0.9 - 1.2 ISAAC Comment: Ref Range High Critical value. Results called to and read back by: Critical Result called to and read back by Meme Dean RN [employer] Secure Chat, DATE: 2025-02-23 11:55:31 BY: [id number] Interpretive data Oral anticoagulant therapeutic ranges: Venous thromboembolism prophylaxis or treatment: 2.0-3.0 CARDIOLOGY Standard range: 2.0-3.0 High-intensity range: 2.5-3.5 Refer to indication-specific guidelines for appropriate target ranges for prosthetic heart valve replacement. Current interpretive data was last revised on 2019. Testing performed by: [address] [address] Blood 02/23/2025 9:31 AM CDT 02/23/2025 11:32 AM CDT Bianca Hunter MD LAB BLOOD ORDERABLES Final Result [facility] [address] [facility] [place] [address] * (ABNORMAL) Comprehensive metabolic panel (02/23/2025 9:31 AM CDT) Sodium 142 135 - 145 mmol/L Comment:Testing performed by : [address] [address] Potassium, pl 3.7 3.3 - 4.9 mmol/L [facility] Comment:Testing performed by : [address] [address] Chloride 109 97 - 110 mmol/L [facility] Comment:Testing performed by : [address] [address] CO2 22 22 - 32 mmol/L [facility] Comment:Testing performed by : [address] [address] Anion gap 11 2 - 15 mmol/L [facility] Comment:Testing performed by : [address] [address] BUN 15 6 - 25 mg/dL [facility] Comment:Testing performed by : [address] [address] Creatinine 1.20 0.80 - 1.30 mg/dL [facility] Comment:Testing performed by : [address] [address] Glucose 102 70 - 199 mg/dL ISAAC [...] was last revised 2022. Testing performed by: [address] [address] Calcium 8.6 8.5 - 10.3 mg/dL [facility] Comment:Testing performed by : [address] [address] Bilirubin, total 0.4 0.1 - 1.2 mg/dL [facility] Comment:Testing performed by : [address] [address] Protein, pl 5.8(L) 6.5 - 8.5 g/dL [facility] Comment:Testing performed by : [address] [address] Albumin 3.2(L) 3.5 - 5.0 g/dL [facility] Comment:Testing performed by : [address] [address] Alk phos 58 40 - 130 Units/L [facility] Comment:Testing performed by : [address] [address] ALT 11 7 - 55 Units/L [facility] Comment:Testing performed by : [address] [address] AST 16 10 - 50 Units/L [facility] Comment:Testing performed by : [address] [address] Blood 02/23/2025 9:31 AM CDT 02/23/2025 9:46 AM CDT us Bianca Hunter MD LAB BLOOD ORDERABLES Final Result [facility] [address] [facility] [place] [address] * RAD ONC ARIA SESSION [...] ORD ERABLES Final Result Performing Organization Address City/[facility]/ZIP Co de Phone Number ARIA * RAD ONC ARIA SESSION SUMMARY (02/17/2025 [...] ORD ERABLES Final Result Performing Organization Address City/State/[facility] Co de Phone Number ARIA * Transfuse RBC (02/16/2025 2:15 PM CDT) [...] Final Result Performing Organization Address [facility] Co de Phone Number ARIA * Prepare RBC: 1 Units (02/15/2025 1:40 PM CDT) Units requested 1 Comment:Testing performed by : [address], [address] Units requested Ready [facility]AC SERNA Comment:Testing performed by : [address] [address] Unit Number [id number] Product code [id number] IS[facility] Blood Expiration Date ISAAC Product Blood Type (for scanning) 6200 [facility] Product Blood Type APOS [facility] Dispense Status DISPENSED ISAAC Blood 02/15/2025 1:40 PM CDT 02/15/2025 1:40 PM CDT us Bianca Hunter MD BLOOD BANK PRODUCT O RDERABLES Final Result Performing Organization Address [facility] Co de Phone Number ISAAC [facility] [place] [employer] [place] [address] * Blood smear review (02/15/2025 12:27 PM CDT) RBC morphology Consistent with RBC Indicies Comment:Testing performed by : [address] [address] Platelet estimate Adequate ISAAC Comment:Testing performed by : [address] [address] Blood 02/15/2025 12:2 7 PM CDT 02/15/2025 12:29 PM CDT us Nena Cano NP LAB BLOOD ORDERABLES Final Result Performing Organization Address City/[facility]/ZIP Co de Phone Number [facility] [address] [facility] [place] [place] [address] * (ABNORMAL) eGFR (02/15/2025 12:27 PM CDT) eGFR 52(L) >=60 mL/min/1. 73 m2 [...] was last reviewed 2021. Testing performed by: [address] [address] Blood 02/15/2025 12:2 7 PM CDT 02/15/2025 12:29 PM CDT Bianca Hunter MD LAB BLOOD ORDERABLES Final Result ISAAC [address] [facility] [place] [address] * (ABNORMAL) Differential, auto (02/15/2025 12:27 PM CDT) Pathologist [facility] Neutrophil abs 0.66(L) 1.50 - 6.50 K/cumm Comment:Testing performed by : [address] [address] Imm gran abs 0.13(H) 0.00 - 0.10 K/cumm ISAAC Comment:Testing performed by : [address] [address] Lymphocyte abs 0.03(L) 0.80 - 3.30 K/cumm ISAAC Comment:Testing performed by : [address] [address] Monocyte abs 0.21 0.20 - 0.80 K/cumm [facility] Comment:Testing performed by : [address] [address] Eosinophil abs 0.04 0.00 - 0.50 K/cumm [facility] Comment:Testing performed by : [address], [place]., [address] Basophil abs 0.01 0.00 - 0.10 K/cumm [facility] Comment:Testing performed by : [address] [address] Neutrophil pct 61.2 % [facility] Comment: Interpretive Data Percent cell count reference ranges are not reported, since discordance with absolute values may lead to misinterpretation of CBC data. Current Interpretive Data was last revised on 2018. Testing performed by: [address] [address] Imm gran pct 12.0 % [facility] Comment: Interpretive Data Percent cell count reference ranges are not reported, since discordance with absolute values may lead to misinterpretation of CBC data. Current Interpretive Data was last revised on 2018. Testing performed by: [address] [address] Lymphocyte pct 2.8 % [facility] Comment: Interpretive Data Percent cell count reference ranges are not reported, since discordance with absolute values may lead to misinterpretation of CBC data. Current Interpretive Data was last revised on 2018. Testing performed by: [address] [address] Monocyte pct 19.4 % [facility] Comment: Interpretive Data Percent cell count reference ranges are not reported, since discordance with absolute values may lead to misinterpretation of CBC data. Current Interpretive Data was last revised on 2018. Testing performed by: [address] [address] Eosinophil pct 3.7 % [facility] Comment: Interpretive Data Percent cell count reference ranges are not reported, since discordance with absolute values may lead to misinterpretation of CBC data. Current Interpretive Data was last revised on 2018. Testing performed by: [address] [address] Basophil pct 0.9 % ISAAC SERNA Comment: Interpretive Data Percent cell count reference ranges are not reported, since discordance with absolute values may lead to misinterpretation of CBC data. Current Interpretive Data was last revised on 2018. Testing performed by: [address] [address] Blood 02/15/2025 12:2 7 PM CDT 02/15/2025 12:29 PM CDT Nena Cano TECHNOLOGY ASSISTANT LAB BLOOD ORDERABLES Final Result Performing Organization Address [facility] Co de Phone Number ISAAC [address] [place] [address] * (ABNORMAL) Iron profile w/ IBC (02/15/2025 12:27 PM CDT) Pathologist [facility] Iron 43(L) 50 - 150 mcg/dL Comment:Testing performed by : [address] [address] TIBC 208(L) 250 - 400 mcg/dL ISAAC SERNA Comment:Testing performed by : [address] [address] Transferrin saturation 21 20 - 50 % ISAAC Comment:Testing performed by : [address] [address] Blood 02/15/2025 12:2 7 PM CDT 02/15/2025 1:39 PM CDT Nena Cano NP LAB BLOOD ORDERABLES Final Result Performing Organization Address [facility] Co de Phone Number DAYANA[address] [place] [place] [address] * (ABNORMAL) CBC with auto differential (02/15/2025 12:27 PM CDT) Pathologist [facility] WBC 1.08(L) 3.80 - 9.90 K/cumm Comment:Testing performed by : [address] [address] Hgb 8.8(L) 13.0 - 17.5 g/dL CERNER Comment:Testing performed by : [address] [address] Hct 27.1(L) 38.9 - 50.3 % CERNER Comment:Testing performed by : [address] [address] Plt 136(L) 150 - 400 K/cumm CERNER Comment:Testing performed by : [address] [address] MPV 9.2 9.1 - 12.3 fL CERADAM Comment:Testing performed by : [address], [address] RBC 3.00(L) 4.30 - 5.80 M/cumm CERADAM Comment:Testing performed by : [address], [address] MCV 90.3 81.3 - 96.4 fL CERNER Comment:Testing performed by : [address], [address] MCH 29.3 27.1 - 33.3 pg CERNER MH Comment:Testing performed by : [address] [address] MCHC 32.5 32.3 - 35.7 g/dL CERNER Comment:Testing performed by : [address], [address] RDW CV 17.4(H) 11.1 - 14.9 % CERNER Comment:Testing performed by : [address], [address] RDW SD 54.7(H) 35.7 - 48.1 fL CERNER Comment:Testing performed by : [address] [address] NRBC abs 0.00 0.00 - 0.01 K/cumm CERADAM MH Comment:Testing performed by : [address], [address] ANC Prelim 0.66(L) 1.50 - 6.50 K/cumm ISAAC Comment: Interpretive Data The rapid ANC is a preliminary automated count and may vary from the final ANC (Neut Abs) reported in the WBC differential that follows. Current interpretive data was last revised 2025. Testing performed by: [address] [address] Blood 02/15/2025 12:2 7 PM CDT 02/15/2025 12:29 PM CDT Nena Cano LAB BLOOD ORDERABLES Final Result Performing Organization Address [facility] de Phone Number [address] [address] * ABO/Rh (02/15/2025 12:27 PM CDT) Pathologist [facility] ABO/Rh A Positive Comment:Testing performed by : [address] [address] Blood 02/15/2025 12:2 7 PM CDT 02/15/2025 1:39 PM CDT Narrative ISAAC - 02/15/2025 2:02 PM CDT Has the patient had Daratumumab or Isatuximab in the past 6 months?->Unknown Nena Cano LAB BLOOD BANK TEST ORDERAB LES Final Result Performing Organization Address [facility] de Phone Number [address] [address] * (ABNORMAL) Reticulocyte Count (02/15/2025 12:27 PM CDT) Retics, absolute 17(L) 20 - 87 K/cumm Comment:Testing performed by : [address] [address] Retics 0.6 0.4 - 2.9 % ISAAC Comment:Testing performed by : [address] [address] Reticulocyte Hgb 36.9 30.5 - 38.0 pg [facility] Comment:Testing performed by : [address] [address] Blood 02/15/2025 12:2 7 PM CDT 02/15/2025 12:29 PM CDT Nena Cano NP LAB BLOOD ORDERABLES Final Result Performing Organization Address City/[facility]/ZIP Co de Phone Number [address] [place] [employer] [place] [address] * Crossmatch (02/15/2025 12:27 PM CDT) Crossmatch Compatible [facility] Unit number for crossmatch [id number] [facility] Blood 02/15/2025 12:2 7 PM CDT 02/15/2025 1:39 PM CDT Bianca Hunter MD LAB BLOOD BANK TEST ORDERABLES Final Result Performing Organization Address [facility] Co de Phone Number [address] [place] [employer] [address] * Antibody screen (02/15/2025 12:27 PM CDT) Divina, indirect, Gel Interpretation Negative ABSC Comment:Testing performed by : [address] [address] Blood 02/15/2025 12:2 7 PM CDT 02/15/2025 1:39 PM CDT Narrative [facility] - 02/15/2025 2:15 PM CDT Has the patient had Daratumumab or Isatuximab in the past 6 months?->Unknown Nena Cano NP LAB BLOOD BANK TEST ORDERAB LES Final Result Performing Organization Address [facility] Co de Phone Number [address] [place] [employer] [place] [address] * Ferritin (02/15/2025 12:27 PM CDT) Pathologist [facility] Ferritin 255 30 - 400 ng/mL Comment:Testing performed by : [address] [address] Blood 02/15/2025 12:2 7 PM CDT 02/15/2025 1:39 PM CDT Nena Cano TECHNOLOGY ASSISTANT LAB BLOOD ORDERABLES Final Result [facility] [address] [facility] [place] [address] * (ABNORMAL) Comprehensive metabolic panel (02/15/2025 12:27 PM CDT) Pathologist [facility] Sodium 137 135 - 145 mmol/L Comment:Testing performed by : [address] [address] Potassium, pl 4.2 3.3 - 4.9 mmol/L ISAAC Comment:Testing performed by : [address] [address] Chloride 106 97 - 110 mmol/L ISAAC Comment:Testing performed by : [address] [address] CO2 22 22 - 32 mmol/L ISAAC Comment:Testing performed by : [address] [address] Anion gap 9 2 - 15 mmol/L ISAAC Comment:Testing performed by : [address] [address] BUN 13 6 - 25 mg/dL ISAAC Comment:Testing performed by : [address] [address] Creatinine 1.40(H) 0.80 - 1.30 mg/dL ISAAC Comment:Testing performed by : [address] [address] Glucose 108 70 - 199 mg/dL ISAAC [...] was last revised 2022. Testing performed by: [address] [address] Calcium 8.8 8.5 - 10.3 mg/dL ISAAC Comment:Testing performed by : [address] [address] Bilirubin, total 0.3 0.1 - 1.2 mg/dL ISAAC Comment:Testing performed by : [address] [address] Protein, pl 6.1(L) 6.5 - 8.5 g/dL ISAAC Comment:Testing performed by : [address] [address] Albumin 4.0 3.5 - 5.0 g/dL ISAAC Comment:Testing performed by : [address] [address] Alk phos 61 40 - 130 Units/L ISAAC Comment:Testing performed by : [address] [address] ALT 14 7 - 55 Units/L ISAAC Comment:Testing performed by : [address] [address] AST 20 10 - 50 Units/L ISAAC Comment:Testing performed by : [address] [address] Blood 02/15/2025 12:2 7 PM CDT 02/15/2025 12:29 PM CDT Bianca Hunter MD LAB BLOOD ORDERABLES Final Result ISAAC [address] [facility] [place] [address] * RAD ONC ARIA SESSION SUMMARY (02/15/2025 [...] Final Result Performing Organization Address [facility] Co de Phone Number ARIA * [...] ORD ERABLES Final Result Performing Organization Address City/State/[facility] Co de Phone Number DION * RAD [...] Final Result Performing Organization Address [facility] Co de Phone Number ARIJovana * Blood smear review (02/09/2025 11:50 AM CDT) RBC morphology Consistent with RBC Indicies Comment:Testing performed by : [facility], [address] [place] [address]., [address] Platelet estimate Adequate ISAAC Comment:Testing performed by : [address] [address] Blood 02/09/2025 11:5 0 AM CDT 02/09/2025 11:51 AM CDT us Bianca Hunter MD LAB BLOOD ORDERABLES Final Result Performing Organization Address [facility] de Phone Number [address] [place] [address] * (ABNORMAL) eGFR (02/09/2025 11:50 AM CDT) [...] was last reviewed 2021. Testing performed by: [address] [address] Blood 02/09/2025 11:5 0 AM CDT 02/09/2025 11:51 AM CDT Bianca Hunter MD LAB BLOOD ORDERABLES Final Result Performing Organization Address [facility] Co de Phone Number [place] [address] [facility] [place] [address] * (ABNORMAL) Differential, auto (02/09/2025 11:50 AM CDT) Neutrophil abs 0.92(L) 1.50 - 6.50 K/cumm Comment:Testing performed by : [address] [address] Imm gran abs 0.07 0.00 - 0.10 K/cumm ISAAC Comment:Testing performed by : [address], [place]., [address] Lymphocyte abs 0.06(L) 0.80 - 3.30 K/cumm ISAAC Comment:Testing performed by : [address], [place]., [address] Monocyte abs 0.38 0.20 - 0.80 K/cumm ISAAC Comment:Testing performed by : [address], [place]., [address] Eosinophil abs 0.15 0.00 - 0.50 K/cumm ISAAC Comment:Testing performed by : [address], [place]., [address] Basophil abs 0.04 0.00 - 0.10 K/cumm ISAAC Comment:Testing performed by : [address] [address] Neutrophil pct 56.7 % ISAAC Comment: Interpretive Data Percent cell count reference ranges are not reported, since discordance with absolute values may lead to misinterpretation of CBC data. Current Interpretive Data was last revised on 2018. Testing performed by: [address] [address] Imm gran pct 4.3 % ISAAC Comment: Interpretive Data Percent cell count reference ranges are not reported, since discordance with absolute values may lead to misinterpretation of CBC data. Current Interpretive Data was last revised on 2018. Testing performed by: [address] [address] Lymphocyte pct 3.7 % [facility] Comment: Interpretive Data Percent cell count reference ranges are not reported, since discordance with absolute values may lead to misinterpretation of CBC data. Current Interpretive Data was last revised on 2018. Testing performed by: [address] [address] Monocyte pct 23.5 % [facility] Comment: Interpretive Data Percent cell count reference ranges are not reported, since discordance with absolute values may lead to misinterpretation of CBC data. Current Interpretive Data was last revised on 2018. Testing performed by: [address] [address] Eosinophil pct 9.3 % ISAAC Comment: Interpretive Data Percent cell count reference ranges are not reported, since discordance with absolute values may lead to misinterpretation of CBC data. Current Interpretive Data was last revised on 2018. Testing performed by: [address] [address] Basophil pct 2.5 % ISAAC Comment: Interpretive Data Percent cell count reference ranges are not reported, since discordance with absolute values may lead to misinterpretation of CBC data. Current Interpretive Data was last revised on 2018. Testing performed by: [address] [address] Blood 02/09/2025 11:5 0 AM CDT 02/09/2025 11:51 AM CDT Bianca Hunter MD LAB BLOOD ORDERABLES Final Result Performing Organization Address City/[facility] Co de Phone Number [address] [place] [address] * (ABNORMAL) Iron profile w/ IBC (02/09/2025 11:50 AM CDT) Iron 50 50 - 150 mcg/dL Comment:Testing performed by : [address] [address] TIBC 235(L) 250 - 400 mcg/dL ISAAC Comment:Testing performed by : [address] [address] Transferrin saturation 21 20 - 50 % ISAAC Comment:Testing performed by : [address] [address] Blood 02/09/2025 11:5 0 AM CDT 02/09/2025 3:58 PM CDT us Nena Cano NP LAB BLOOD ORDERABLES Final Result Performing Organization Address City/[facility]/ZIP Co de Phone Number [address] [place] [address] * (ABNORMAL) CBC with auto differential (02/09/2025 11:50 AM CDT) [facility] Signature WBC 1.62(L) 3.80 - 9.90 K/cumm Comment:Testing performed by : [address] [address] Hgb 9.2(L) 13.0 - 17.5 g/dL ISAAC Comment:Testing performed by : [address] [address] Hct 28.9(L) 38.9 - 50.3 % ISAAC Comment:Testing performed by : [address] [address] Plt 163 150 - 400 K/cumm ISAAC Comment:Testing performed by : [address] [address] MPV 9.1 9.1 - 12.3 fL ISAAC Comment:Testing performed by : [address] [address] RBC 3.18(L) 4.30 - 5.80 M/cumm ISAAC Comment:Testing performed by : [address] [address] MCV 90.9 81.3 - 96.4 fL ISAAC Comment:Testing performed by : [address] [address] MCH 28.9 27.1 - 33.3 pg ISAAC Comment:Testing performed by : [address] [address] MCHC 31.8(L) 32.3 - 35.7 g/dL ISAAC Comment:Testing performed by : [address] [address] RDW CV 17.1(H) 11.1 - 14.9 % ISAAC Comment:Testing performed by : [address] [address] RDW SD 54.1(H) 35.7 - 48.1 fL ISAAC Comment:Testing performed by : [address] [place] [address] NRBC abs 0.00 0.00 - 0.01 K/cumm ISAAC SERNA Comment:Testing performed by : [address] [address] ANC Prelim 0.92(L) 1.50 - 6.50 K/cumm ISAAC SERNA Comment: Interpretive Data The rapid ANC is a preliminary automated count and may vary from the final ANC (Neut Abs) reported in the WBC differential that follows. Current interpretive data was last revised 2025. Testing performed by: [address] [address] Blood 02/09/2025 11:5 0 AM CDT 02/09/2025 11:51 AM CDT Bianca Hunter MD LAB BLOOD ORDERABLES Final Result Performing Organization Address [facility] Co de Phone Number [address] [place] [address] * Ferritin (02/09/2025 11:50 AM CDT) Ferritin 111 30 - 400 ng/mL Comment:Testing performed by : [address] [address] Blood 02/09/2025 11:5 0 AM CDT 02/09/2025 3:58 PM CDT us Nena Cano NP LAB BLOOD ORDERABLES Final Result Performing Organization Address City/[facility] Co de Phone Number [address] [place] [address] * (ABNORMAL) Comprehensive metabolic panel (02/09/2025 11:50 AM CDT) Pathologist [facility] Sodium 136 135 - 145 mmol/L Comment:Testing performed by : [address] [address] Potassium, pl 4.3 3.3 - 4.9 mmol/L ISAAC SERNA Comment:Testing performed by : [address], [place]., [address] Chloride 105 97 - 110 mmol/L ISAAC Comment:Testing performed by : [address], [place]., [address] CO2 23 22 - 32 mmol/L ISAAC Comment:Testing performed by : [address], [place]., [address] Anion gap 8 2 - 15 mmol/L ISAAC Comment:Testing performed by : [address], [place]., [address] BUN 8 6 - 25 mg/dL ISAAC Comment:Testing performed by : [address], [place]., [address] Creatinine 1.40(H) 0.80 - 1.30 mg/dL ISAAC Comment:Testing performed by : [address], [place]., [address] Glucose 102 70 - 199 mg/dL ISAAC [...] was last revised 2022. Testing performed by: [address] [address] Calcium 9.0 8.5 - 10.3 mg/dL ISAAC Comment:Testing performed by : [address] [address] Bilirubin, total 0.2 0.1 - 1.2 mg/dL ISAAC Comment:Testing performed by : [address] [address] Protein, pl 6.3(L) 6.5 - 8.5 g/dL ISAAC Comment:Testing performed by : [address] [address] Albumin 4.0 3.5 - 5.0 g/dL ISAAC Comment:Testing performed by : [address], [address] Alk phos 63 40 - 130 Units/L ISAAC Comment:Testing performed by : [address] [address] ALT 12 7 - 55 Units/L ISAAC Comment:Testing performed by : [address], [address] AST 17 10 - 50 Units/L ISAAC Comment:Testing performed by : [address], [address] Blood 02/09/2025 11:5 0 AM CDT 02/09/2025 11:51 AM CDT us Bianca Hunter MD LAB BLOOD ORDERABLES Final Result [facility] [address] [facility] [place] [address] * RAD ONC ARIA SESSION SUMMARY (02/09/2025 [...] ORD ERABLES Final Result Performing Organization Address City/[facility]/ZIP Co de Phone Number BRENDAA * RAD ONC ARIA SESSION SUMMARY (02/07/2025 11:32 AM CDT) Course Name C1_Esoph_20 ARIA Course [...] (02/06/2025 11:38 AM CDT) Course Name C1_Esoph_20 ARIA Course [...] was last reviewed 2021. Testing performed by: [address] [address] Blood 02/02/2025 11:5 1 AM CDT 02/02/2025 11:52 AM CDT Bianca Hunter MD LAB BLOOD ORDERABLES Final Result [facility] [address] [facility] [place] [address] * (ABNORMAL) Differential, auto (02/02/2025 11:51 AM CDT) Neutrophil abs 1.48(L) 1.50 - 6.50 K/cumm Comment:Testing performed by : [address] [address] Imm gran abs 0.03 0.00 - 0.10 K/cumm ISAAC Comment:Testing performed by : [address] [address] Lymphocyte abs 0.13(L) 0.80 - 3.30 K/cumm ISAAC Comment:Testing performed by : [address] [address] Monocyte abs 0.28 0.20 - 0.80 K/cumm ISAAC Comment:Testing performed by : [address] [address] Eosinophil abs 0.18 0.00 - 0.50 K/cumm ISAAC Comment:Testing performed by : [address] [address] Basophil abs 0.02 0.00 - 0.10 K/cumm ISAAC Comment:Testing performed by : [address] [address] Neutrophil pct 69.9 % ISAAC Comment: Interpretive Data Percent cell count reference ranges are not reported, since discordance with absolute values may lead to misinterpretation of CBC data. Current Interpretive Data was last revised on 2018. Testing performed by: [address] [address] Imm gran pct 1.4 % [facility] Comment: Interpretive Data Percent cell count reference ranges are not reported, since discordance with absolute values may lead to misinterpretation of CBC data. Current Interpretive Data was last revised on 2018. Testing performed by: [address] [address] Lymphocyte pct 6.1 % [facility] Comment: Interpretive Data Percent cell count reference ranges are not reported, since discordance with absolute values may lead to misinterpretation of CBC data. Current Interpretive Data was last revised on 2018. Testing performed by: [address] [address] Monocyte pct 13.2 % [facility] Comment: Interpretive Data Percent cell count reference ranges are not reported, since discordance with absolute values may lead to misinterpretation of CBC data. Current Interpretive Data was last revised on 2018. Testing performed by: [address] [address] Eosinophil pct 8.5 % [facility] Comment: Interpretive Data Percent cell count reference ranges are not reported, since discordance with absolute values may lead to misinterpretation of CBC data. Current Interpretive Data was last revised on 2018. Testing performed by: [address] [address] Basophil pct 0.9 % [facility] Comment: Interpretive Data Percent cell count reference ranges are not reported, since discordance with absolute values may lead to misinterpretation of CBC data. Current Interpretive Data was last revised on 2018. Testing performed by: [address] [address] Blood 02/02/2025 11:5 1 AM CDT 02/02/2025 11:52 AM CDT Bianca Hunter MD LAB BLOOD ORDERABLES Final Result ISAAC [address] [facility] [place] [address] * (ABNORMAL) CBC with auto differential (02/02/2025 11:51 AM CDT) [facility] WBC 2.12(L) 3.80 - 9.90 K/cumm Comment:Testing performed by : [address] [address] Hgb 8.9(L) 13.0 - 17.5 g/dL ISAAC Comment:Testing performed by : [address], [address] Hct 27.9(L) 38.9 - 50.3 % ISAAC Comment:Testing performed by : [address], [address] Plt 180 150 - 400 K/cumm ISAAC Comment:Testing performed by : [address] [address] MPV 8.7(L) 9.1 - 12.3 fL CERADAM Comment:Testing performed by : [address], [address] RBC 3.08(L) 4.30 - 5.80 M/cumm ISAAC Comment:Testing performed by : [address] [address] MCV 90.6 81.3 - 96.4 fL CERADAM Comment:Testing performed by : [address] [address] MCH 28.9 27.1 - 33.3 pg CERADAM Comment:Testing performed by : [address] [address] MCHC 31.9(L) 32.3 - 35.7 g/dL CERADAM Comment:Testing performed by : [address], [address] RDW CV 17.3(H) 11.1 - 14.9 % ISAAC Comment:Testing performed by : [address], [address] RDW SD 55.3(H) 35.7 - 48.1 fL CERADAM Comment:Testing performed by : [address] [address] NRBC abs 0.00 0.00 - 0.01 K/cumm ISAAC SERNA Comment:Testing performed by : [address] [address] ANC Prelim 1.48(L) 1.50 - 6.50 K/cumm ISAAC SERNA Comment: Interpretive Data The rapid ANC is a preliminary automated count and may vary from the final ANC (Neut Abs) reported in the WBC differential that follows. Current interpretive data was last revised 2025. Testing performed by: [address] [address] Blood 02/02/2025 11:5 1 AM CDT 02/02/2025 11:52 AM CDT Bianca Hunter MD LAB BLOOD ORDERABLES Final Result ISAAC [address] [place] [address] * (ABNORMAL) Comprehensive metabolic panel (02/02/2025 11:51 AM CDT) Sodium 138 135 - 145 mmol/L Comment:Testing performed by : [address] [address] Potassium, pl 4.4 3.3 - 4.9 mmol/L ISAAC SERNA Comment:Testing performed by : [address] [address] Chloride 107 97 - 110 mmol/L ISAAC Comment:Testing performed by : [address] [address] CO2 22 22 - 32 mmol/L ISAAC SERNA Comment:Testing performed by : [address] [address] Anion gap 9 2 - 15 mmol/L ISAAC SERNA Comment:Testing performed by : [address] [address] BUN 11 6 - 25 mg/dL ISAAC SERNA Comment:Testing performed by : [address] [address] Creatinine 1.30 0.80 - 1.30 mg/dL ISAAC Comment:Testing performed by : [address] [address] Glucose 95 70 - 199 mg/dL ISAAC [...] was last revised 2022. Testing performed by: [address] [address] Calcium 8.9 8.5 - 10.3 mg/dL ISAAC Comment:Testing performed by : [address] [address] Bilirubin, total 0.3 0.1 - 1.2 mg/dL ISAAC Comment:Testing performed by : [address] [address] Protein, pl 6.3(L) 6.5 - 8.5 g/dL ISAAC Comment:Testing performed by : [address] [address] Albumin 3.9 3.5 - 5.0 g/dL [facility] Comment:Testing performed by : [address] [address] Alk phos 58 40 - 130 Units/L ISAAC Comment:Testing performed by : [address] [address] ALT 10 7 - 55 Units/L ISAAC Comment:Testing performed by : [address] [address] AST 14 10 - 50 Units/L ISAAC Comment:Testing performed by : [address] [address] Blood 02/02/2025 11:5 1 AM CDT 02/02/2025 11:52 AM CDT us Bianca Hunter MD LAB BLOOD ORDERABLES Final Result Performing Organization Address City/[facility]/ZIP Co de Phone Number ISAAC [facility] [place] [address] * RAD ONC ARIA SESSION SUMMARY (02/02/2025 [...] ORD ERABLES Final Result Performing Organization Address City/[facility] Co de Phone Number ARIA * [...] ORD ERABLES Final Result Performing Organization Address City/[facility] Co de Phone Number ARIA * Prepare RBC: 1 Units (02/01/2025 10:48 AM CDT) Units requested 1 Comment:Testing performed by : [address] [address] Units requested Ready ISAAC SERNA Comment:Testing performed by : [address] [address] Unit Number [id number] Product code [id number] ISAAC Blood Expiration Date [id number] ISAAC Product Blood Type (for scanning) [address] [facility] Product Blood Type APOS ISAAC Dispense Status DISPENSED ISAAC Blood 02/01/2025 10:4 8 AM CDT 02/01/2025 10:48 AM CDT us Bianca Hunter MD BLOOD BANK PRODUCT O RDERABLES Final Result Performing Organization Address City/[facility]/ZIP Co de Phone Number [facility] [address] [facility] [place] [address] * (ABNORMAL) Iron profile w/ IBC (02/01/2025 9:10 AM CDT) Iron 47(L) 50 - 150 mcg/dL Comment:Testing performed by : [address] [address] TIBC 220(L) 250 - 400 mcg/dL ISAAC SERNA Comment:Testing performed by : [address] [address] Transferrin saturation 21 20 - 50 % ISAAC SERNA Comment:Testing performed by : [address] [address] Blood 02/01/2025 9:10 AM CDT 02/01/2025 9:46 AM CDT Nena Cano TECHNOLOGY ASSISTANT LAB BLOOD ORDERABLES Final Result Performing Organization Address City/[facility]/ZIP Co de Phone Number ISAAC [address] [place] [employer] [address] * Reticulocyte Count (02/01/2025 9:10 AM CDT) [facility] Retics, absolute 26 20 - 87 K/cumm Comment:Testing performed by : [address] [address] Retics 1.0 0.4 - 2.9 % ISAAC Comment:Testing performed by : [address] [address] Reticulocyte Hgb 36.1 30.5 - 38.0 pg ISAAC Comment:Testing performed by : [address] [address] Blood 02/01/2025 9:10 AM CDT 02/01/2025 9:11 AM CDT Nena Cano TECHNOLOGY ASSISTANT LAB BLOOD ORDERABLES Final Result Performing Organization Address [facility] de Phone Number [address] [address] * Ferritin (02/01/2025 9:10 AM CDT) [facility] Ferritin 63 30 - 400 ng/mL Comment:Testing performed by : [address] [address] Blood 02/01/2025 9:10 AM CDT 02/01/2025 9:46 AM CDT Nena Cano TECHNOLOGY ASSISTANT LAB BLOOD ORDERABLES Final Result Performing Organization Address City/[facility] Co de Phone Number [address] [address] * (ABNORMAL) Differential, auto (02/01/2025 9:02 AM CDT) Neutrophil abs 1.93 1.50 - 6.50 K/cumm Comment:Testing performed by : [address] [address] Imm gran abs 0.02 0.00 - 0.10 K/cumm ISAAC Comment:Testing performed by : [address] [address] Lymphocyte abs 0.11(L) 0.80 - 3.30 K/cumm ISAAC Comment:Testing performed by : [address] [address] Monocyte abs 0.20 0.20 - 0.80 K/cumm [facility] Comment:Testing performed by : [address] [address] Eosinophil abs 0.19 0.00 - 0.50 K/cumm ISAAC Comment:Testing performed by : [address] [address] Basophil abs 0.01 0.00 - 0.10 K/cumm [facility] Comment:Testing performed by : [address] [address] Neutrophil pct 78.5 % [facility] Comment: Interpretive Data Percent cell count reference ranges are not reported, since discordance with absolute values may lead to misinterpretation of CBC data. Current Interpretive Data was last revised on 2018. Testing performed by: [address] [address] Imm gran pct 0.8 % [facility] Comment: Interpretive Data Percent cell count reference ranges are not reported, since discordance with absolute values may lead to misinterpretation of CBC data. Current Interpretive Data was last revised on 2018. Testing performed by: [address] [address] Lymphocyte pct 4.5 % [facility] Comment: Interpretive Data Percent cell count reference ranges are not reported, since discordance with absolute values may lead to misinterpretation of CBC data. Current Interpretive Data was last revised on 2018. Testing performed by: [address] [place]., [address] Monocyte pct 8.1 % ISAAC Comment: Interpretive Data Percent cell count reference ranges are not reported, since discordance with absolute values may lead to misinterpretation of CBC data. Current Interpretive Data was last revised on 2018. Testing performed by: [address] [address] Eosinophil pct 7.7 % ISAAC Comment: Interpretive Data Percent cell count reference ranges are not reported, since discordance with absolute values may lead to misinterpretation of CBC data. Current Interpretive Data was last revised on 2018. Testing performed by: [address] [address] Basophil pct 0.4 % ISAAC Comment: Interpretive Data Percent cell count reference ranges are not reported, since discordance with absolute values may lead to misinterpretation of CBC data. Current Interpretive Data was last revised on 2018. Testing performed by: [address] [address] Blood 02/01/2025 9:02 AM CDT 02/01/2025 9:08 AM CDT us Nena Cano NP LAB BLOOD ORDERABLES Final Result ISAAC [address] [facility] [place] [address] * (ABNORMAL) CBC with auto differential (02/01/2025 9:02 AM CDT) WBC 2.46(L) 3.80 - 9.90 K/cumm Comment:Testing performed by : [address] [address] Hgb 7.9(L) 13.0 - 17.5 g/dL ISAAC SERNA Comment:Testing performed by : [address] [address] Hct 25.5(L) 38.9 - 50.3 % ISAAC SERNA Comment:Testing performed by : [address] [address] Plt 194 150 - 400 K/cumm ISAAC Comment:Testing performed by : [address] [address] MPV 9.0(L) 9.1 - 12.3 fL ISAAC Comment:Testing performed by : [address] [address] RBC 2.73(L) 4.30 - 5.80 M/cumm ISAAC Comment:Testing performed by : [address] [address] MCV 93.4 81.3 - 96.4 fL ISAAC Comment:Testing performed by : [address] [address] MCH 28.9 27.1 - 33.3 pg ISAAC Comment:Testing performed by : [address] [address] MCHC 31.0(L) 32.3 - 35.7 g/dL ISAAC Comment:Testing performed by : [address] [address] RDW CV 16.2(H) 11.1 - 14.9 % ISAAC Comment:Testing performed by : [address] [address] RDW SD 54.3(H) 35.7 - 48.1 fL ISAAC Comment:Testing performed by : [address] [address] NRBC abs 0.00 0.00 - 0.01 K/cumm ISAAC Comment:Testing performed by : [address] [address] ANC Prelim 1.93 1.50 - 6.50 K/cumm ISAAC Comment: Interpretive Data The rapid ANC is a preliminary automated count and may vary from the final ANC (Neut Abs) reported in the WBC differential that follows. Current interpretive data was last revised 2025. Testing performed by: [address] [address] Blood 02/01/2025 9:02 AM CDT 02/01/2025 9:08 AM CDT Nena Cano NP LAB BLOOD ORDERABLES Final Result Performing Organization Address [facility] Co de Phone Number DAYANA[address] [address] * ABO/Rh (02/01/2025 9:02 AM CDT) Pathologist [facility] ABO/Rh A Positive Comment:Testing performed by : [facility], [address] [place] [address]., [address] Blood 02/01/2025 9:02 AM CDT 02/01/2025 9:45 AM CDT Narrative [facility] - 02/01/2025 10:28 AM CDT Has the patient had Daratumumab or Isatuximab in the past 6 months?->Unknown Nena Cano NP LAB BLOOD BANK TEST ORDERAB LES Final Result Performing Organization Address [facility] Co de Phone Number [address] [place] [employer] [place] [address] * Crossmatch (02/01/2025 9:02 AM CDT) [facility] Crossmatch Compatible [facility] Unit number for crossmatch [id number] [facility] Blood 02/01/2025 9:02 AM CDT 02/01/2025 9:45 AM CDT Jas Alcala MD LAB BLOOD BANK TEST ORDERABL ES Final Result Performing Organization Address [facility] Co de Phone Number [address] [place] [employer] [address] * Antibody screen (02/01/2025 9:02 AM CDT) Pathologist [facility] Divina, indirect, Gel Interpretation Negative ABSC Comment:Testing performed by : [address] [address] Blood 02/01/2025 9:02 AM CDT 02/01/2025 9:45 AM CDT Narrative ISAAC - 02/01/2025 10:38 AM CDT Has the patient had Daratumumab or Isatuximab in the past 6 months?->Unknown us Nena Cano TECHNOLOGY ASSISTANT LAB BLOOD BANK TEST ORDERAB LES Final Result Performing Organization Address [facility]/ZIP Co de Phone Number ISAAC [address] [facility] [place] [address] * RAD ONC ARIA SESSION SUMMARY (01/31/2025 [...] Final Result Performing Organization Address [facility] Co de Phone Number ARIA * [...] Moise Cm M.D. MM: MM Report ID: [id number] Reading Location: [id number] Procedure Note Moise Cm MD - 02/06/2025 [...] Moise Cm M.D. MM: MM Report ID: [id number] Reading Location: [id number] us Bianca Hunter MD IMG XR PROCEDURES [...] was last reviewed 2021. Testing performed by: [address] [address] Blood 01/26/2025 12:2 1 PM CDT 01/26/2025 12:31 PM CDT us Bianca Hunter MD LAB BLOOD ORDERABLES Final Result [facility] [address] [facility] [place] [address] * (ABNORMAL) Differential, auto (01/26/2025 12:21 PM CDT) Neutrophil abs 2.3 1.5 - 6.5 K/cumm Comment:Testing performed by : [address] [address] Imm gran abs 0.1 0.0 - 0.1 K/cumm ISAAC Comment:Testing performed by : [address] [address] Lymphocyte abs 0.2(L) 0.8 - 3.3 K/cumm ISAAC Comment:Testing performed by : [address] [address] Monocyte abs 0.3 0.2 - 0.8 K/cumm ISAAC Comment:Testing performed by : [address] [address] Eosinophil abs 0.3 0.0 - 0.5 K/cumm ISAAC Comment:Testing performed by : [address] [address] Basophil abs 0.0 0.0 - 0.1 K/cumm ISAAC Comment:Testing performed by : [address] [address] Neutrophil pct 73.3 % ISAAC Comment: Interpretive Data Percent cell count reference ranges are not reported, since discordance with absolute values may lead to misinterpretation of CBC data. Current Interpretive Data was last revised on 2018. Testing performed by: [address] [address] Imm gran pct 2.9 % [facility] Comment: Interpretive Data Percent cell count reference ranges are not reported, since discordance with absolute values may lead to misinterpretation of CBC data. Current Interpretive Data was last revised on 2018. Testing performed by: [address] [address] Lymphocyte pct 5.8 % [facility] Comment: Interpretive Data Percent cell count reference ranges are not reported, since discordance with absolute values may lead to misinterpretation of CBC data. Current Interpretive Data was last revised on 2018. Testing performed by: [address] [address] Monocyte pct 8.0 % [facility] Comment: Interpretive Data Percent cell count reference ranges are not reported, since discordance with absolute values may lead to misinterpretation of CBC data. Current Interpretive Data was last revised on 2018. Testing performed by: [address] [address] Eosinophil pct 9.0 % [facility] Comment: Interpretive Data Percent cell count reference ranges are not reported, since discordance with absolute values may lead to misinterpretation of CBC data. Current Interpretive Data was last revised on 2018. Testing performed by: [address] [address] Basophil pct 1.0 % [facility] Comment: Interpretive Data Percent cell count reference ranges are not reported, since discordance with absolute values may lead to misinterpretation of CBC data. Current Interpretive Data was last revised on 2018. Testing performed by: [address] [address] Blood 01/26/2025 12:2 1 PM CDT 01/26/2025 12:31 PM CDT Bianca Hunter MD LAB BLOOD ORDERABLES Final Result ISAAC SERNA [address] [facility] Department [facility] [place], [place] [id number] * (ABNORMAL) CBC with auto differential (01/26/2025 12:21 PM CDT) [facility] WBC 3.1(L) 3.8 - 9.9 K/cumm Comment:Testing performed by : [address] [address] Hgb 8.1(L) 13.0 - 17.5 g/dL ISAAC Comment:Testing performed by : [address] [address] Hct 26.6(L) 38.9 - 50.3 % ISAAC Comment:Testing performed by : [address] [address] Plt 234 150 - 400 K/cumm ISAAC Comment:Testing performed by : [address], [address] MPV 8.6(L) 9.1 - 12.3 fL ISAAC Comment:Testing performed by : [address], [address] RBC 2.80(L) 4.30 - 5.80 M/cumm ISAAC Comment:Testing performed by : [address], [address] MCV 95.0 81.3 - 96.4 fL ISAAC Comment:Testing performed by : [address] [address] MCH 28.9 27.1 - 33.3 pg ISAAC Comment:Testing performed by : [address] [address] MCHC 30.5(L) 32.3 - 35.7 g/dL ISAAC Comment:Testing performed by : [address], [address] RDW CV 16.4(H) 11.1 - 14.9 % ISAAC Comment:Testing performed by : [address], [address] RDW SD 57.5(H) 35.7 - 48.1 fL ISAAC Comment:Testing performed by : [address], [address] NRBC abs 0.00 0.00 - 0.01 K/cumm ISAAC Comment:Testing performed by : [address] [address] Blood 01/26/2025 12:2 1 PM CDT 01/26/2025 12:31 PM CDT Bianca Hunter MD LAB BLOOD ORDERABLES Final Result ISAAC [address] [facility] [place] [address] * (ABNORMAL) Comprehensive metabolic panel (01/26/2025 12:21 PM CDT) Sodium 139 135 - 145 mmol/L Comment:Testing performed by : [address] [address] Potassium, pl 4.6 3.3 - 4.9 mmol/L ISAAC Comment:Testing performed by : [address] [address] Chloride 109 97 - 110 mmol/L ISAAC Comment:Testing performed by : [address] [address] CO2 22 22 - 32 mmol/L ISAAC Comment:Testing performed by : [address] [address] Anion gap 8 2 - 15 mmol/L ISAAC Comment:Testing performed by : [address] [address] BUN 16 6 - 25 mg/dL ISAAC Comment:Testing performed by : [address] [address] Creatinine 1.50(H) 0.80 - 1.30 mg/dL ISAAC Comment:Testing performed by : [address] [address] Glucose 100 70 - 199 mg/dL ISAAC [...] revised 2022. Testing performed by: [facility], [address] [place] [address]., [address] Calcium 8.4(L) 8.5 - 10.3 mg/dL ISAAC Comment:Testing performed by : [address] [address] Bilirubin, total 0.2 0.1 - 1.2 mg/dL ISAAC Comment:Testing performed by : [address] [address] Protein, pl 6.0(L) 6.5 - 8.5 g/dL ISAAC Comment:Testing performed by : [address] [address] Albumin 3.7 3.5 - 5.0 g/dL ISAAC Comment:Testing performed by : [address] [address] Alk phos 57 40 - 130 Units/L ISAAC Comment:Testing performed by : [address] [address] ALT 9 7 - 55 Units/L ISAAC Comment:Testing performed by : [address] [address] AST 13 10 - 50 Units/L ISAAC Comment:Testing performed by : [address] [address] Blood 01/26/2025 12:2 1 PM CDT 01/26/2025 12:31 PM CDT us Bianca Hunter MD LAB BLOOD ORDERABLES Final Result ISAAC [address] [facility] [place] [address] * RAD ONC ARIA SESSION SUMMARY (01/26/2025 [...] Final Result Performing Organization Address [facility] Co de Phone Number ARIA * [...] SUMMARY (01/24/2025 11:37 AM CDT) Course Name C1_Esoph_ ARIA Course [...] DION * RAD ONC ARIA SESSION SUMMARY (01/23/2025 [...] Final Result Performing Organization Address [facility] Co de Phone Number DION MORA ONC ARIA SESSION SUMMARY (01/20/2025 11:48 AM [...] ORD ERABLES Final Result Performing Organization Address City/State/[facility] de Phone Number DION * (ABNORMAL) eGFR (01/19/2025 8:52 AM [...] was last reviewed 2021. Testing performed by: [address] [address] Blood 01/19/2025 8:52 AM CDT 01/19/2025 8:59 AM CDT Bianca Hunter MD LAB BLOOD ORDERABLES Final Result Performing Organization Address City/[facility] Co de Phone Number ISAAC [address] [facility] Department [facility] [place], [place] [id number] * (ABNORMAL) Differential, auto (01/19/2025 8:52 AM CDT) Neutrophil abs 2.9 1.5 - 6.5 K/cumm Comment:Testing performed by : [address] [address] Imm gran abs 0.0 0.0 - 0.1 K/cumm ISAAC SERNA Comment:Testing performed by : [address] [address] Lymphocyte abs 0.6(L) 0.8 - 3.3 K/cumm [facility] Comment:Testing performed by : [address] [address] Monocyte abs 0.6 0.2 - 0.8 K/cumm [facility] Comment:Testing performed by : [address], [place]., [address] Eosinophil abs 0.6(H) 0.0 - 0.5 K/cumm [facility] Comment:Testing performed by : [address], [place]., [address] Basophil abs 0.1 0.0 - 0.1 K/cumm [facility] Comment:Testing performed by : [address] [address] Neutrophil pct 60.4 % [facility] Comment: Interpretive Data Percent cell count reference ranges are not reported, since discordance with absolute values may lead to misinterpretation of CBC data. Current Interpretive Data was last revised on 2018. Testing performed by: [address] [address] Imm gran pct 0.4 % [facility] Comment: Interpretive Data Percent cell count reference ranges are not reported, since discordance with absolute values may lead to misinterpretation of CBC data. Current Interpretive Data was last revised on 2018. Testing performed by: [address] [address] Lymphocyte pct 13.1 % [facility] Comment: Interpretive Data Percent cell count reference ranges are not reported, since discordance with absolute values may lead to misinterpretation of CBC data. Current Interpretive Data was last revised on 2018. Testing performed by: [address] [address] Monocyte pct 13.3 % [facility] Comment: Interpretive Data Percent cell count reference ranges are not reported, since discordance with absolute values may lead to misinterpretation of CBC data. Current Interpretive Data was last revised on 2018. Testing performed by: [address] [address] Eosinophil pct 11.8 % [facility] Comment: Interpretive Data Percent cell count reference ranges are not reported, since discordance with absolute values may lead to misinterpretation of CBC data. Current Interpretive Data was last revised on 2018. Testing performed by: [address] [address] Basophil pct 1.0 % ISAAC SERNA Comment: Interpretive Data Percent cell count reference ranges are not reported, since discordance with absolute values may lead to misinterpretation of CBC data. Current Interpretive Data was last revised on 2018. Testing performed by: [address] [address] Blood 01/19/2025 8:52 AM CDT 01/19/2025 8:59 AM CDT us Bianca Hunter MD LAB BLOOD ORDERABLES Final Result ISAAC [address] [facility] [place] [address] * (ABNORMAL) CBC with auto differential (01/19/2025 8:52 AM CDT) WBC 4.8 3.8 - 9.9 K/cumm Comment:Testing performed by : [address] [address] Hgb 8.7(L) 13.0 - 17.5 g/dL ISAAC Comment:Testing performed by : [address] [address] Hct 28.8(L) 38.9 - 50.3 % ISAAC Comment:Testing performed by : [address] [address] Plt 259 150 - 400 K/cumm ISAAC Comment:Testing performed by : [address] [address] MPV 8.5(L) 9.1 - 12.3 fL ISAAC SERNA Comment:Testing performed by : [address] [address] RBC 3.05(L) 4.30 - 5.80 M/cumm ISAAC SERNA Comment:Testing performed by : [address] [address] MCV 94.4 81.3 - 96.4 fL ISAAC SERNA Comment:Testing performed by : [address] [address] MCH 28.5 27.1 - 33.3 pg ISAAC SERNA Comment:Testing performed by : [address] [address] MCHC 30.2(L) 32.3 - 35.7 g/dL ISAAC SERNA Comment:Testing performed by : [address] [address] RDW CV 18.5(H) 11.1 - 14.9 % ISAAC SERNA Comment:Testing performed by : [address] [address] RDW SD 64.4(H) 35.7 - 48.1 fL ISAAC SERNA Comment:Testing performed by : [address] [address] NRBC abs 0.00 0.00 - 0.01 K/cumm ISAAC SERNA Comment:Testing performed by : [address] [address] Blood 01/19/2025 8:52 AM CDT 01/19/2025 8:59 AM CDT Bianca Hunter MD LAB BLOOD ORDERABLES Final Result ISAAC [address] [facility] Department [facility] [place], [place] [id number] * (ABNORMAL) Comprehensive metabolic panel (01/19/2025 8:52 AM CDT) Sodium 140 135 - 145 mmol/L Comment:Testing performed by : [address] [address] Potassium, pl 4.0 3.3 - 4.9 mmol/L ISAAC SERNA Comment:Testing performed by : [address] [address] Chloride 108 97 - 110 mmol/L ISAAC Comment:Testing performed by : [address] [address] CO2 24 22 - 32 mmol/L ISAAC Comment:Testing performed by : [address] [address] Anion gap 8 2 - 15 mmol/L ISAAC Comment:Testing performed by : [address] [address] BUN 16 6 - 25 mg/dL ISAAC Comment:Testing performed by : [address] [address] Creatinine 1.80(H) 0.80 - 1.30 mg/dL IS[facility]AC Comment:Testing performed by : [address] [address] Glucose 98 70 - 199 mg/dL ISAAC [...] was last revised 2022. Testing performed by: [address] [address] Calcium 8.7 8.5 - 10.3 mg/dL ISAAC Comment:Testing performed by : [address] [address] Bilirubin, total 0.2 0.1 - 1.2 mg/dL ISAAC Comment:Testing performed by : [address] [address] Protein, pl 6.2(L) 6.5 - 8.5 g/dL ISAAC Comment:Testing performed by : [address] [address] Albumin 3.8 3.5 - 5.0 g/dL ISAAC Comment:Testing performed by : [facility], [address] [place] [address], [address] Alk phos 65 40 - 130 Units/L ISAAC Comment:Testing performed by : [address], [address] ALT 9 7 - 55 Units/L ISAAC Comment:Testing performed by : [address], [address] AST 13 10 - 50 Units/L ISAAC Comment:Testing performed by : [address], [address] Blood 01/19/2025 8:52 AM CDT 01/19/2025 8:59 AM CDT us Bianca Hunetr MD LAB BLOOD ORDERABLES Final Result Performing Organization Address City/[facility]/ZIP Co de Phone Number [place] [phone] [facility] [place] [address] * RAD ONC ARIA SESSION SUMMARY (01/19/2025 [...] Units requested 1 Comment:Testing performed by : [address] [address] Units requested Ready ISAAC Comment:Testing performed by : [address] [address] Unit Number [id number] Product code [id number] [facility] Blood Expiration Date [id number] [facility] Product Blood Type (for scanning) 9500 [facility] Product Blood Type ONEG [facility] Dispense Status DISPENSED [facility] Blood 01/18/2025 11:3 1 AM CDT 01/18/2025 11:31 AM CDT Nena Cano NP BLOOD BANK PRODUCT ORDERABL ES Final Result [facility] [address] [facility] Department of [facility] [place], [place] [id number] * (ABNORMAL) eGFR (01/18/2025 9:42 AM CDT) [...] was last reviewed 2021. Testing performed by: [address] [address] Blood 01/18/2025 9:42 AM CDT 01/18/2025 9:44 AM CDT Nena Cano TECHNOLOGY ASSISTANT LAB BLOOD ORDERABLES Final Result [facility] [address] [facility] [place] [address] * (ABNORMAL) Differential, auto (01/18/2025 9:42 AM CDT) Neutrophil abs 3.3 1.5 - 6.5 K/cumm Comment:Testing performed by : [address] [address] Imm gran abs 0.0 0.0 - 0.1 K/cumm ISAAC Comment:Testing performed by : [address] [address] Lymphocyte abs 0.6(L) 0.8 - 3.3 K/cumm ISAAC Comment:Testing performed by : [address] [address] Monocyte abs 0.6 0.2 - 0.8 K/cumm ISAAC Comment:Testing performed by : [address] [address] Eosinophil abs 0.6(H) 0.0 - 0.5 K/cumm ISAAC Comment:Testing performed by : [address] [address] Basophil abs 0.1 0.0 - 0.1 K/cumm ISAAC Comment:Testing performed by : [address] [address] Neutrophil pct 63.9 % [facility]AC Comment: Interpretive Data Percent cell count reference ranges are not reported, since discordance with absolute values may lead to misinterpretation of CBC data. Current Interpretive Data was last revised on 2018. Testing performed by: [address] [address] Imm gran pct 0.4 % [facility]AC Comment: Interpretive Data Percent cell count reference ranges are not reported, since discordance with absolute values may lead to misinterpretation of CBC data. Current Interpretive Data was last revised on 2018. Testing performed by: [address] [address] Lymphocyte pct 11.8 % [facility] Comment: Interpretive Data Percent cell count reference ranges are not reported, since discordance with absolute values may lead to misinterpretation of CBC data. Current Interpretive Data was last revised on 2018. Testing performed by: [address] [address] Monocyte pct 11.9 % [facility] Comment: Interpretive Data Percent cell count reference ranges are not reported, since discordance with absolute values may lead to misinterpretation of CBC data. Current Interpretive Data was last revised on 2018. Testing performed by: [address] [address] Eosinophil pct 10.8 % [facility] Comment: Interpretive Data Percent cell count reference ranges are not reported, since discordance with absolute values may lead to misinterpretation of CBC data. Current Interpretive Data was last revised on 2018. Testing performed by: [address] [address] Basophil pct 1.2 % [facility] Comment: Interpretive Data Percent cell count reference ranges are not reported, since discordance with absolute values may lead to misinterpretation of CBC data. Current Interpretive Data was last revised on 2018. Testing performed by: [address] [address] Blood 01/18/2025 9:42 AM CDT 01/18/2025 9:44 AM CDT us Nena Cano NP LAB BLOOD ORDERABLES Final Result [facility] SERNA [address] [facility] Department of [facility] [place], [place] [id number] * Iron profile w/ IBC (01/18/2025 9:42 AM CDT) [facility] Iron 50 50 - 150 mcg/dL Comment:Testing performed by : [address] [address] TIBC 251 250 - 400 mcg/dL [facility] SERNA Comment:Testing performed by : [address] [address] Transferrin saturation 20 20 - 50 % [facility] SERNA Comment:Testing performed by : [address] [address] Blood 01/18/2025 9:42 AM CDT 01/18/2025 11:48 AM CDT Nena Cano TECHNOLOGY ASSISTANT LAB BLOOD ORDERABLES Final Result [facility] SER[facility] [address] [place] [address] [place] [address] * (ABNORMAL) CBC with auto differential (01/18/2025 9:42 AM CDT) Pathologist [facility] WBC 5.2 3.8 - 9.9 K/cumm Comment:Testing performed by : [address] [address] Hgb 8.4(L) 13.0 - 17.5 g/dL IS[facility]AC SERNA Comment:Testing performed by : [address] [address] Hct 28.3(L) 38.9 - 50.3 % [facility] SERNA Comment:Testing performed by : [address] [address] Plt 259 150 - 400 K/cumm IS[facility]AC SERNA Comment:Testing performed by : [address] [address] MPV 8.4(L) 9.1 - 12.3 fL [facility] SERNA Comment:Testing performed by : [address] [address] RBC 2.88(L) 4.30 - 5.80 M/cumm IS[facility]AC SERNA Comment:Testing performed by : [address] [address] MCV 98.3(H) 81.3 - 96.4 fL [facility] SERNA Comment:Testing performed by : [facility], [address] [place] [address]., [address] MCH 29.2 27.1 - 33.3 pg ISAAC SERNA Comment:Testing performed by : [address] [address] MCHC 29.7(L) 32.3 - 35.7 g/dL [facility]AC SERNA Comment:Testing performed by : [address] [address] RDW CV 16.6(H) 11.1 - 14.9 % ISAAC Comment:Testing performed by : [address] [address] RDW SD 59.7(H) 35.7 - 48.1 fL ISAAC Comment:Testing performed by : [address] [address] NRBC abs 0.00 0.00 - 0.01 K/cumm ISAAC Comment:Testing performed by : [address] [address] Blood 01/18/2025 9:42 AM CDT 01/18/2025 9:44 AM CDT Nena Cano NP LAB BLOOD ORDERABLES Final Result [facility] [address] [facility] [place] [address] * ABO/Rh (01/18/2025 9:42 AM CDT) ABO/Rh A Positive Comment:Testing performed by : [address] [address] Blood 01/18/2025 9:42 AM CDT 01/18/2025 10:13 AM CDT Narrative ISAAC - 01/18/2025 11:08 AM CDT Has the patient had Daratumumab or Isatuximab in the past 6 months?->Unknown Nena Mamta Golec TECHNOLOGY ASSISTANT LAB BLOOD BANK TEST ORDERAB LES Final Result Performing Organization Address [facility] Co de Phone Number [address] [address] * (ABNORMAL) Reticulocyte Count (01/18/2025 9:42 AM CDT) [facility] Retics, absolute 0.150(H) 0.020 - 0.087 M/cumm Comment:Testing performed by : [address] [address] Retics 5.2(H) 0.4 - 2.9 % [facility] Comment:Testing performed by : [address] [address] Reticulocyte Hgb 31.1 30.5 - 38.0 pg [facility] Comment:Testing performed by : [address] [address] Blood 01/18/2025 9:42 AM CDT 01/18/2025 9:44 AM CDT Nena Cano TECHNOLOGY ASSISTANT LAB BLOOD ORDERABLES Final Result Performing Organization Address [facility] Co de Phone Number [address] [address] * Crossmatch (01/18/2025 9:42 AM CDT) [facility] Crossmatch Compatible [facility] Unit number for crossmatch [id number] [facility] Blood 01/18/2025 9:42 AM CDT 01/18/2025 10:13 AM CDT us Gosia Gagnon MD LAB BLOOD BANK TEST ORDERAB LES Final Result Performing Organization Address City/[facility] Co de Phone Number [address] [address] * Antibody screen (01/18/2025 9:42 AM CDT) Divina, indirect, Gel Interpretation Negative ABSC Comment:Testing performed by : [address] [address] Blood 01/18/2025 9:42 AM CDT 01/18/2025 10:13 AM CDT Narrative ISAAC - 01/18/2025 11:08 AM CDT Has the patient had Daratumumab or Isatuximab in the past 6 months?->Unknown Nena Cano TECHNOLOGY ASSISTANT LAB BLOOD BANK TEST ORDERAB LES Final Result Performing Organization Address [facility] Co de Phone Number [address] [place] [employer] [address] * Ferritin (01/18/2025 9:42 AM CDT) [facility] Ferritin 70 30 - 400 ng/mL Comment:Testing performed by : [address] [address] Blood 01/18/2025 9:42 AM CDT 01/18/2025 11:48 AM CDT Nena Cano TECHNOLOGY ASSISTANT LAB BLOOD ORDERABLES Final Result Performing Organization Address [facility] Co de Phone Number [address] [place] [address] * (ABNORMAL) Comprehensive metabolic panel (01/18/2025 9:42 AM CDT) [facility] Sodium 141 135 - 145 mmol/L Comment:Testing performed by : [address] [address] Potassium, pl 4.1 3.3 - 4.9 mmol/L ISAAC Comment:Testing performed by : [address] [address] Chloride 109 97 - 110 mmol/L ISAAC Comment:Testing performed by : [address] [address] CO2 23 22 - 32 mmol/L ISAAC Comment:Testing performed by : [address] [address] Anion gap 9 2 - 15 mmol/L ISAAC Comment:Testing performed by : [address] [address] BUN 17 6 - 25 mg/dL ISAAC Comment:Testing performed by : [address], [place]., [address] Creatinine 1.90(H) 0.80 - 1.30 mg/dL [facility]AC Comment:Testing performed by : [address] [address] Glucose 106 70 - 199 mg/dL ISAAC [...] was last revised 2022. Testing performed by: [address] [address] Calcium 8.9 8.5 - 10.3 mg/dL ISAAC Comment:Testing performed by : [address] [address] Bilirubin, total <0.2 0.1 - 1.2 mg/dL IS[facility]AC Comment:Testing performed by : [address] [address] Protein, pl 6.4(L) 6.5 - 8.5 g/dL [facility] Comment:Testing performed by : [address] [address] Albumin 3.8 3.5 - 5.0 g/dL [facility] Comment:Testing performed by : [address] [address] Alk phos 69 40 - 130 Units/L [facility] Comment:Testing performed by : [address] [address] ALT 10 7 - 55 Units/L [facility] SERNA Comment:Testing performed by : [facility], [address] [place] [address], [place]., [address] AST 14 10 - 50 Units/L IS[facility]AC SERNA Comment:Testing performed by : [facility], [address] [place] [address], [place]., [address] Blood 01/18/2025 9:42 AM CDT 01/18/2025 9:44 AM CDT us Nena Cano NP LAB BLOOD ORDERABLES Final Result [facility] SER[facility] [address] [facility] [place] [address] * IR Port Placement Chest > 5 Years (01/11/2025 12:57 PM CDT) Anatomical Region Laterality Modality Chest N/A Radio Fluoroscop y 01/11/2025 1:13 PM CDT Impressions 01/11/2025 1:13 PM CDT Successful chest wall port placement. PLAN: The catheter is ready for immediate use. Please note that a power injectable port was placed. When treatment is completed, removal can be scheduled by calling [facility] - [phone] [facility] - [phone] Electronically signed by: Linda Cardenas PA-C Narrative [...] was obtained. Prior to beginning the procedure, [place] Protocol was used to confirm the patient's [...] was obtained. Prior to beginning the procedure, [place] Protocol was used to confirm the patient's [...] completed, removal can be scheduled by calling [facility] - [phone] [facility] - [phone] Electronically signed by: Linda Cardenas PA-C Bianca Hunter MD IMG IR PROCEDURES Fi nal Result * (ABNORMAL) Protime-INR (01/11/2025 10:52 AM CDT) PT 15.6(H) 9.7 - 13.0 sec INR 1.43(H) 0.90 - 1.20 [facility] Comment: Interpretive data Oral anticoagulant therapeutic ranges: Venous thromboembolism prophylaxis or treatment: 2.0-3.0 CARDIOLOGY Standard range: 2.0-3.0 High-intensity range: 2.5-3.5 Refer to indication-specific guidelines for appropriate target ranges for prosthetic heart valve replacement. Current interpretive data was last revised on 2019. Blood 01/11/2025 10:5 2 AM CDT 01/11/2025 11:03 AM CDT us Mirlande MCMULLEN LAB BLOOD ORDERABLES Final Result IS[facility] Department [place] [address] * NM MPI SPECT (Rest and/or Stress) Multiple Studies (01/06/2025 9:00 AM MAGNETIC TESTING TECHNICIAN) Anatomical Region Laterality Modality Body N/A Nuclear Medicine Narrative 01/06/2025 4:05 PM MAGNETIC TESTING TECHNICIAN Patient Id: Marshall Olson is a 74 y.o. male. MR#: [id number] Study date: 01/06/2025 Report of the nuclear [...] Test for Myocardial Perfusion (01/06/2025 9:00 AM MAGNETIC TESTING TECHNICIAN) Anatomical Region Laterality Modality Nuclear Medicine Narrative 01/06/2025 7:32 PM MAGNETIC TESTING TECHNICIAN [facility] NUCLEAR STRESS TEST CLINICAL INDICATION: Esophageal [...] Pulmonary Function Test - (01/05/2025 8:10 AM MAGNETIC TESTING TECHNICIAN) FVC PRE 3.48 3.18 - 5.54 L [facility] FEV1 PRE 2.66 2.29 - 4.12 L [facility] [id number] 76.42 60.94 - 87.48 % [facility] PGM91-15% PRE 2.40 0.95 - 4.33 L/s [facility] PEF PRE 6.09(A) 6.21 - 10.19 L/s [facility] DLCOc SB 12.03(A) 21.15 - 35.01 ml/(min*mm Hg) [facility] DLCO/VA PRE 2.24(A) 2.64 - 4.81 ml/(min*mm Hg*L) [facility] VA 5.36(A) 7.38 - 7.38 L [facility] TLC PRE 5.96(A) 6.38 - 8.68 L [facility] VC PRE 3.55 3.51 - 5.35 L [facility] IC PRE 3.16(A) 3.37 - 3.37 L [facility] FRC PL PRE 2.79(A) 2.87 - 4.84 L [facility] ERV PRE 0.38(A) 1.06 - 1.06 L [facility] RV PRE 2.41 2.12 - 3.47 L [facility] VTG 2.85 L [facility] RAW PRE 3.42(A) 3.06 - 3.06 cmH2O*s/L [facility] Anatomical Region Laterality Modality PFT 01/05/2025 7:35 AM MAGNETIC TESTING TECHNICIAN Impressions 01/08/2025 4:43 PM CDT 1. Spirometry is normal. 2. Lung volumes demonstrate restrictive ventilatory defect. 3. There is moderate diffusion impairment. Correlation is advised. Electronically signed by Jaspreet Balderas DO Pulmonary & Critical Care Narrative 01/08/2025 4:43 PM CDT PULMONARY FUNCTION TESTS Marshall R [place] 74 y.o. 01/08/2025 INTERPRETATION Please see technologist's [...] Result * (ABNORMAL) eGFR (01/04/2025 8:34 AM MAGNETIC TESTING TECHNICIAN) eGFR 39(L) >=60 mL/min/1. 73 m2 Comment: [...] was last reviewed 2021. Testing performed by: [address] [address] Blood 01/04/2025 8:34 AM MAGNETIC TESTING TECHNICIAN 01/04/2025 8:37 AM MAGNETIC TESTING TECHNICIAN Nena Cano NP LAB BLOOD ORDERABLES Final Result [facility] SERNA [address] [facility] Department of [facility] [place], [place] [id number] * (ABNORMAL) Differential, auto (01/04/2025 8:34 AM MAGNETIC TESTING TECHNICIAN) Pathologist [facility] Neutrophil abs 3.0 1.5 - 6.5 K/cumm Comment:Testing performed by : [address] [address] Imm gran abs 0.0 0.0 - 0.1 K/cumm [facility] SERNA Comment:Testing performed by : [address] [address] Lymphocyte abs 0.7(L) 0.8 - 3.3 K/cumm [facility] SERNA Comment:Testing performed by : [address] [address] Monocyte abs 0.5 0.2 - 0.8 K/cumm ISAAC Comment:Testing performed by : [address] [address] Eosinophil abs 0.5 0.0 - 0.5 K/cumm ISAAC Comment:Testing performed by : [address] [address] Basophil abs 0.1 0.0 - 0.1 K/cumm [facility] Comment:Testing performed by : [address] [address] Neutrophil pct 62.4 % [facility] Comment: Interpretive Data Percent cell count reference ranges are not reported, since discordance with absolute values may lead to misinterpretation of CBC data. Current Interpretive Data was last revised on 2018. Testing performed by: [address] [address] Imm gran pct 0.2 % [facility] Comment: Interpretive Data Percent cell count reference ranges are not reported, since discordance with absolute values may lead to misinterpretation of CBC data. Current Interpretive Data was last revised on 2018. Testing performed by: [address] [address] Lymphocyte pct 15.1 % [facility] Comment: Interpretive Data Percent cell count reference ranges are not reported, since discordance with absolute values may lead to misinterpretation of CBC data. Current Interpretive Data was last revised on 2018. Testing performed by: [address] [address] Monocyte pct 11.1 % [facility] Comment: Interpretive Data Percent cell count reference ranges are not reported, since discordance with absolute values may lead to misinterpretation of CBC data. Current Interpretive Data was last revised on 2018. Testing performed by: [address] [address] Eosinophil pct 9.9 % [facility] Comment: Interpretive Data Percent cell count reference ranges are not reported, since discordance with absolute values may lead to misinterpretation of CBC data. Current Interpretive Data was last revised on 2018. Testing performed by: [address] [address] Basophil pct 1.3 % [facility] Comment: Interpretive Data Percent cell count reference ranges are not reported, since discordance with absolute values may lead to misinterpretation of CBC data. Current Interpretive Data was last revised on 2018. Testing performed by: [address] [address] Blood 01/04/2025 8:34 AM MAGNETIC TESTING TECHNICIAN 01/04/2025 8:37 AM MAGNETIC TESTING TECHNICIAN Nena Cano TECHNOLOGY ASSISTANT LAB BLOOD ORDERABLES Final Result Performing Organization Address [facility] de Phone Number [address] [place] [employer] [address] * Iron profile w/ IBC (01/04/2025 8:34 AM MAGNETIC TESTING TECHNICIAN) Pathologist [facility] Iron 67 50 - 150 mcg/dL Comment:Testing performed by : [address] [address] TIBC 250 250 - 400 mcg/dL [facility] Comment:Testing performed by : [address] [address] Transferrin saturation 27 20 - 50 % [facility] Comment:Testing performed by : [address] [address] Blood 01/04/2025 8:34 AM MAGNETIC TESTING TECHNICIAN 01/04/2025 10:17 AM MAGNETIC TESTING TECHNICIAN Nena Cano TECHNOLOGY ASSISTANT LAB BLOOD ORDERABLES Final Result Performing Organization Address [facility] Co de Phone Number [address] [place] [employer] [address] * (ABNORMAL) CBC with auto differential (01/04/2025 8:34 AM MAGNETIC TESTING TECHNICIAN) WBC 4.8 3.8 - 9.9 K/cumm Comment:Testing performed by : [address] [address] Hgb 9.1(L) 13.0 - 17.5 g/dL [facility] Comment:Testing performed by : [address] [address] Hct 30.5(L) 38.9 - 50.3 % [facility] Comment:Testing performed by : [address] [address] Plt 283 150 - 400 K/cumm [facility] Comment:Testing performed by : [address] [address] MPV 8.5(L) 9.1 - 12.3 fL [facility] Comment:Testing performed by : [address], [address] RBC 3.17(L) 4.30 - 5.80 M/cumm [facility] Comment:Testing performed by : [address], [address] MCV 96.2 81.3 - 96.4 fL [facility] Comment:Testing performed by : [address] [address] MCH 28.7 27.1 - 33.3 pg [facility] Comment:Testing performed by : [address] [address] MCHC 29.8(L) 32.3 - 35.7 g/dL [facility] Comment:Testing performed by : [address] [address] RDW CV 16.1(H) 11.1 - 14.9 % [facility] Comment:Testing performed by : [address], [address] RDW SD 57.4(H) 35.7 - 48.1 fL [facility] Comment:Testing performed by : [address], [address] NRBC abs 0.00 0.00 - 0.01 K/cumm [facility] Comment:Testing performed by : [address] [address] Blood 01/04/2025 8:34 AM MAGNETIC TESTING TECHNICIAN 01/04/2025 8:37 AM MAGNETIC TESTING TECHNICIAN us Nena Cano TECHNOLOGY ASSISTANT LAB BLOOD ORDERABLES Final Result IS[facility] [address] [address] * (ABNORMAL) Reticulocyte Count (01/04/2025 8:34 AM MAGNETIC TESTING TECHNICIAN) [facility] Retics, absolute 0.135(H) 0.020 - 0.087 M/cumm Comment:Testing performed by : [address] [address] Retics 4.3(H) 0.4 - 2.9 % [facility] Comment:Testing performed by : [address] [address] Reticulocyte Hgb 30.5 30.5 - 38.0 pg [facility] Comment:Testing performed by : [address] [address] Blood 01/04/2025 8:34 AM MAGNETIC TESTING TECHNICIAN 01/04/2025 8:37 AM MAGNETIC TESTING TECHNICIAN Nena Cano TECHNOLOGY ASSISTANT LAB BLOOD ORDERABLES Final Result Performing Organization Address [facility] Co de Phone Number [address] [address] * Ferritin (01/04/2025 8:34 AM MAGNETIC TESTING TECHNICIAN) [facility] Ferritin 76 30 - 400 ng/mL Comment:Testing performed by : [address] [address] Blood 01/04/2025 8:34 AM MAGNETIC TESTING TECHNICIAN 01/04/2025 10:17 AM MAGNETIC TESTING TECHNICIAN Nena Cano TECHNOLOGY ASSISTANT LAB BLOOD ORDERABLES Final Result [facility] [address] [address] * (ABNORMAL) Comprehensive metabolic panel (01/04/2025 8:34 AM MAGNETIC TESTING TECHNICIAN) Sodium 141 135 - 145 mmol/L Comment:Testing performed by : [facility], [address] [place] [address], [place]., [address] Potassium, pl 4.4 3.3 - 4.9 mmol/L [facility] Comment:Testing performed by : [address], [place]., [address] Chloride 107 97 - 110 mmol/L [facility] Comment:Testing performed by : [address], [place]., [address] CO2 26 22 - 32 mmol/L [facility] Comment:Testing performed by : [address], [place]., [address] Anion gap 8 2 - 15 mmol/L [facility] Comment:Testing performed by : [address], [place]., [address] BUN 17 6 - 25 mg/dL [facility] Comment:Testing performed by : [address], [place]., [address] Creatinine 1.80(H) 0.80 - 1.30 mg/dL [facility] Comment:Testing performed by : [address], [place]., [address] Glucose 104 70 - 199 mg/dL [facility] [...] was last revised 2022. Testing performed by: [address], [place]., [address] Calcium 9.1 8.5 - 10.3 mg/dL [facility] Comment:Testing performed by : [address], [place]., [address] Bilirubin, total 0.2 0.1 - 1.2 mg/dL [facility] Comment:Testing performed by : [address] [address] Protein, pl 6.4(L) 6.5 - 8.5 g/dL [facility] SERNA Comment:Testing performed by : [address] [address] Albumin 4.0 3.5 - 5.0 g/dL [facility] SERNA Comment:Testing performed by : [address] [address] Alk phos 66 40 - 130 Units/L [facility] Comment:Testing performed by : [address] [address] ALT 10 7 - 55 Units/L [facility] Comment:Testing performed by : [address] [address] AST 16 10 - 50 Units/L [facility] Comment:Testing performed by : [address] [address] Blood 01/04/2025 8:34 AM MAGNETIC TESTING TECHNICIAN 01/04/2025 8:37 AM MAGNETIC TESTING TECHNICIAN us Nena Cano TECHNOLOGY ASSISTANT LAB BLOOD ORDERABLES Final Result [facility] [address] [facility] Department [facility] [place] [id number] * (ABNORMAL) eGFR (12/27/2024 1:25 PM MAGNETIC TESTING TECHNICIAN) eGFR 34(L) >=60 mL/min/1. 73 m2 Comment: [...] was last reviewed 2021. Testing performed by: [address] [address] Blood 12/27/2024 1:25 PM MAGNETIC TESTING TECHNICIAN 12/27/2024 1:27 PM MAGNETIC TESTING TECHNICIAN us Nena Cano NP LAB BLOOD ORDERABLES Final Result IS[facility] [address] [facility] [place] [address] * Differential, auto (12/27/2024 1:25 PM MAGNETIC TESTING TECHNICIAN) Neutrophil abs 3.7 1.5 - 6.5 K/cumm Comment:Testing performed by : [address] [address] Imm gran abs 0.0 0.0 - 0.1 K/cumm ISAAC Comment:Testing performed by : [address] [address] Lymphocyte abs 0.8 0.8 - 3.3 K/cumm ISAAC Comment:Testing performed by : [address] [address] Monocyte abs 0.6 0.2 - 0.8 K/cumm ISAAC Comment:Testing performed by : [address] [address] Eosinophil abs 0.4 0.0 - 0.5 K/cumm ISAAC Comment:Testing performed by : [address] [address] Basophil abs 0.1 0.0 - 0.1 K/cumm ISAAC Comment:Testing performed by : [address] [address] Neutrophil pct 66.1 % IS[facility]AC Comment: Interpretive Data Percent cell count reference ranges are not reported, since discordance with absolute values may lead to misinterpretation of CBC data. Current Interpretive Data was last revised on 2018. Testing performed by: [address] [address] Imm gran pct 0.5 % [facility] Comment: Interpretive Data Percent cell count reference ranges are not reported, since discordance with absolute values may lead to misinterpretation of CBC data. Current Interpretive Data was last revised on 2018. Testing performed by: [address] [address] Lymphocyte pct 14.5 % [facility] Comment: Interpretive Data Percent cell count reference ranges are not reported, since discordance with absolute values may lead to misinterpretation of CBC data. Current Interpretive Data was last revised on 2018. Testing performed by: [address] [address] Monocyte pct 10.6 % [facility] Comment: Interpretive Data Percent cell count reference ranges are not reported, since discordance with absolute values may lead to misinterpretation of CBC data. Current Interpretive Data was last revised on 2018. Testing performed by: [address] [address] Eosinophil pct 7.4 % [facility] Comment: Interpretive Data Percent cell count reference ranges are not reported, since discordance with absolute values may lead to misinterpretation of CBC data. Current Interpretive Data was last revised on 2018. Testing performed by: [address] [address] Basophil pct 0.9 % [facility] Comment: Interpretive Data Percent cell count reference ranges are not reported, since discordance with absolute values may lead to misinterpretation of CBC data. Current Interpretive Data was last revised on 2018. Testing performed by: [address] [address] Blood 12/27/2024 1:25 PM MAGNETIC TESTING TECHNICIAN 12/27/2024 1:27 PM MAGNETIC TESTING TECHNICIAN Nena Cano NP LAB BLOOD ORDERABLES Final Result [facility] [address] [place] [address] [place] [address] * (ABNORMAL) Iron profile w/ IBC (12/27/2024 1:25 PM MAGNETIC TESTING TECHNICIAN) [facility] Iron 72 50 - 150 mcg/dL Comment:Testing performed by : [address] [address] TIBC 245(L) 250 - 400 mcg/dL IS[facility]AC SERNA Comment:Testing performed by : [address] [address] Transferrin saturation 29 20 - 50 % [facility] SERNA Comment:Testing performed by : [address] [address] Blood 12/27/2024 1:25 PM MAGNETIC TESTING TECHNICIAN 12/27/2024 1:51 PM MAGNETIC TESTING TECHNICIAN Nena Cano NP LAB BLOOD ORDERABLES Final Result Performing Organization Address City/State/[facility] Co de Phone Number ISAAC SERNA [address] [place] [address] [place] [address] * (ABNORMAL) CBC with auto differential (12/27/2024 1:25 PM MAGNETIC TESTING TECHNICIAN) [facility] WBC 5.7 3.8 - 9.9 K/cumm Comment:Testing performed by : [address] [address] Hgb 8.8(L) 13.0 - 17.5 g/dL IS[facility]AC SERNA Comment:Testing performed by : [address] [address] Hct 29.9(L) 38.9 - 50.3 % [facility] SERNA Comment:Testing performed by : [address] [address] Plt 292 150 - 400 K/cumm ISAAC SERNA Comment:Testing performed by : [address] [address] MPV 8.5(L) 9.1 - 12.3 fL IS[facility]AC SERNA Comment:Testing performed by : [address] [address] RBC 3.03(L) 4.30 - 5.80 M/cumm ISAAC Comment:Testing performed by : [address] [address] MCV 98.7(H) 81.3 - 96.4 fL [facility] Comment:Testing performed by : [address] [address] MCH 29.0 27.1 - 33.3 pg IS[facility] Comment:Testing performed by : [address] [address] MCHC 29.4(L) 32.3 - 35.7 g/dL IS[facility] Comment:Testing performed by : [address], [address] RDW CV 16.6(H) 11.1 - 14.9 % IS[facility]AC Comment:Testing performed by : [address], [address] RDW SD 59.5(H) 35.7 - 48.1 fL IS[facility]AC Comment:Testing performed by : [address], [address] NRBC abs 0.00 0.00 - 0.01 K/cumm ISAAC Comment:Testing performed by : [address] [address] Blood 12/27/2024 1:25 PM MAGNETIC TESTING TECHNICIAN 12/27/2024 1:27 PM MAGNETIC TESTING TECHNICIAN Nena Cano TECHNOLOGY ASSISTANT LAB BLOOD ORDERABLES Final Result [facility] [address] [facility] Department of [facility] [place], [place] [id number] * (ABNORMAL) Reticulocyte Count (12/27/2024 1:25 PM MAGNETIC TESTING TECHNICIAN) Retics, absolute 0.149(H) 0.020 - 0.087 M/cumm Comment:Testing performed by : [address], [address] Retics 4.9(H) 0.4 - 2.9 % [facility] SERNA Comment:Testing performed by : [address] [address] Reticulocyte Hgb 28.7(L) 30.5 - 38.0 pg IS[facility]AC SERNA Comment:Testing performed by : [address] [address] Blood 12/27/2024 1:25 PM MAGNETIC TESTING TECHNICIAN 12/27/2024 1:27 PM MAGNETIC TESTING TECHNICIAN Nena Cano TECHNOLOGY ASSISTANT LAB BLOOD ORDERABLES Final Result Performing Organization Address [facility] Co de Phone Number [address] [place] [employer] [place] [address] * Ferritin (12/27/2024 1:25 PM MAGNETIC TESTING TECHNICIAN) [facility] Ferritin 171 30 - 400 ng/mL Comment:Testing performed by : [address] [address] Blood 12/27/2024 1:25 PM MAGNETIC TESTING TECHNICIAN 12/27/2024 1:51 PM MAGNETIC TESTING TECHNICIAN Nena Cano TECHNOLOGY ASSISTANT LAB BLOOD ORDERABLES Final Result Performing Organization Address [facility] de Phone Number [address] [address] * (ABNORMAL) Comprehensive metabolic panel (12/27/2024 1:25 PM MAGNETIC TESTING TECHNICIAN) [facility] Sodium 137 135 - 145 mmol/L Comment:Testing performed by : [address] [address] Potassium, pl 5.1(H) 3.3 - 4.9 mmol/L IS[facility] SERNA Comment:Testing performed by : [address] [address] Chloride 104 97 - 110 mmol/L IS[facility] SERNA Comment:Testing performed by : [address] [address] CO2 25 22 - 32 mmol/L IS[facility]AC SERNA Comment:Testing performed by : [address] [place]., [address] Anion gap 8 2 - 15 mmol/L ISAAC Comment:Testing performed by : [address] [address] BUN 15 6 - 25 mg/dL IS[facility]AC Comment:Testing performed by : [address], [place]., [address] Creatinine 2.00(H) 0.80 - 1.30 mg/dL IS[facility]AC Comment:Testing performed by : [address] [address] Glucose 110 70 - 199 mg/dL ISAAC [...] was last revised 2022. Testing performed by: [address] [address] Calcium 8.9 8.5 - 10.3 mg/dL IS[facility]AC Comment:Testing performed by : [address] [address] Bilirubin, total 0.2 0.1 - 1.2 mg/dL IS[facility]AC Comment:Testing performed by : [address] [address] Protein, pl 6.5 6.5 - 8.5 g/dL IS[facility] Comment:Testing performed by : [address] [address] Albumin 3.9 3.5 - 5.0 g/dL IS[facility]AC Comment:Testing performed by : [address] [address] Alk phos 66 40 - 130 Units/L ISAAC Comment:Testing performed by : [address] [address] ALT 14 7 - 55 Units/L IS[facility]AC SERNA Comment:Testing performed by : [facility], [address] [place] [address]., [address] AST 21 10 - 50 Units/L ISAAC SERNA Comment:Testing performed by : [facility], [address] [place] [address]., [address] Blood 12/27/2024 1:25 PM MAGNETIC TESTING TECHNICIAN 12/27/2024 1:27 PM MAGNETIC TESTING TECHNICIAN Nena Cano NP LAB BLOOD ORDERABLES Final Result [facility] [address] [facility] [place] [address] * PET/CT FDG Skull to Thigh (12/16/2024 9:43 AM MAGNETIC TESTING TECHNICIAN) Anatomical Region Laterality Modality N/A Positron Emissio n Tomography (PET) 12/16/2024 9:48 AM MAGNETIC TESTING TECHNICIAN Narrative 12/16/2024 10:04 AM MAGNETIC TESTING TECHNICIAN EXAM DESCRIPTION: PET/CT FDG SKULL TO THIGH [...] Dario Hilario M.D. CH: RED Report ID: [id number] Reading Location: [place] [address] Procedure Note Dario Hilario Jr., MD - [...] Dario Hilario M.D. CH: RED Report ID: [id number] Reading Location: [place] [address] us Charlie Juarez MD IM PET PROCEDURES Final Result * POCT glucose (12/16/2024 7:51 AM MAGNETIC TESTING TECHNICIAN) [facility] Glucose, POC 100 70 - 199 mg/dL Comment:Testing performed by : [address] [address] Blood 12/16/2024 7:51 AM MAGNETIC TESTING TECHNICIAN 12/16/2024 7:51 AM MAGNETIC TESTING TECHNICIAN us Charlie Juarez MD LAB POCT ORDERABLES - DEVICE Fin al Result Performing Organization Address [facility] Co de Phone Number ISAAC [address] [place] [address] [place] [address] * (ABNORMAL) eGFR (12/14/2024 9:08 AM MAGNETIC TESTING TECHNICIAN) [facility] eGFR 42(L) >=60 mL/min/1. 73 m2 Comment: [...] reviewed 2021. Testing performed by: [facility], [address] [place] [address]., [address] Blood 12/14/2024 9:08 AM MAGNETIC TESTING TECHNICIAN 12/14/2024 9:09 AM MAGNETIC TESTING TECHNICIAN us Nena Cano NP LAB BLOOD ORDERABLES Final Result Performing Organization Address City/[facility]/ZIP Co de Phone Number [facility] [place] [address] * (ABNORMAL) Differential, auto (12/14/2024 9:08 AM MAGNETIC TESTING TECHNICIAN) Neutrophil abs 2.8 1.5 - 6.5 K/cumm Comment:Testing performed by : [address] [address] Imm gran abs 0.0 0.0 - 0.1 K/cumm ISAAC Comment:Testing performed by : [address] [address] Lymphocyte abs 0.7(L) 0.8 - 3.3 K/cumm ISAAC Comment:Testing performed by : [address] [address] Monocyte abs 0.6 0.2 - 0.8 K/cumm [facility] Comment:Testing performed by : [address] [address] Eosinophil abs 0.4 0.0 - 0.5 K/cumm ISAAC Comment:Testing performed by : [address] [address] Basophil abs 0.0 0.0 - 0.1 K/cumm [facility] Comment:Testing performed by : [address] [address] Neutrophil pct 60.8 % [facility] Comment: Interpretive Data Percent cell count reference ranges are not reported, since discordance with absolute values may lead to misinterpretation of CBC data. Current Interpretive Data was last revised on 2018. Testing performed by: [address] [address] Imm gran pct 0.6 % [facility] Comment: Interpretive Data Percent cell count reference ranges are not reported, since discordance with absolute values may lead to misinterpretation of CBC data. Current Interpretive Data was last revised on 2018. Testing performed by: [address] [address] Lymphocyte pct 15.4 % [facility] Comment: Interpretive Data Percent cell count reference ranges are not reported, since discordance with absolute values may lead to misinterpretation of CBC data. Current Interpretive Data was last revised on 2018. Testing performed by: [address] [address] Monocyte pct 13.0 % [facility] Comment: Interpretive Data Percent cell count reference ranges are not reported, since discordance with absolute values may lead to misinterpretation of CBC data. Current Interpretive Data was last revised on 2018. Testing performed by: [address] [address] Eosinophil pct 9.3 % [facility] Comment: Interpretive Data Percent cell count reference ranges are not reported, since discordance with absolute values may lead to misinterpretation of CBC data. Current Interpretive Data was last revised on 2018. Testing performed by: [address] [address] Basophil pct 0.9 % [facility] Comment: Interpretive Data Percent cell count reference ranges are not reported, since discordance with absolute values may lead to misinterpretation of CBC data. Current Interpretive Data was last revised on 2018. Testing performed by: [address] [address] Blood 12/14/2024 9:08 AM MAGNETIC TESTING TECHNICIAN 12/14/2024 9:09 AM MAGNETIC TESTING TECHNICIAN Nena Cano TECHNOLOGY ASSISTANT LAB BLOOD ORDERABLES Final Result [facility] [address] [facility] [place] [address] * (ABNORMAL) Iron profile w/ IBC (12/14/2024 9:08 AM MAGNETIC TESTING TECHNICIAN) Iron 225(H) 50 - 150 mcg/dL Comment:Testing performed by : [address] [address] TIBC <242(L) 250 - 400 mcg/dL IS[facility] Comment:Testing performed by : [address] [address] Transferrin saturation >93(H) 20 - 50 % IS[facility] Comment:Testing performed by : [address] [address] Blood 12/14/2024 9:08 AM MAGNETIC TESTING TECHNICIAN 12/14/2024 9:50 AM MAGNETIC TESTING TECHNICIAN Nena Garzae Jerome TECHNOLOGY ASSISTANT LAB BLOOD ORDERABLES Final Result [facility] [address] [facility] [place] [address] * (ABNORMAL) CBC with auto differential (12/14/2024 9:08 AM MAGNETIC TESTING TECHNICIAN) WBC 4.6 3.8 - 9.9 K/cumm Comment:Testing performed by : [address] [address] Hgb 8.7(L) 13.0 - 17.5 g/dL ISAAC Comment:Testing performed by : [address] [address] Hct 29.9(L) 38.9 - 50.3 % [facility] Comment:Testing performed by : [address] [address] Plt 278 150 - 400 K/cumm ISAAC Comment:Testing performed by : [address] [address] MPV 8.6(L) 9.1 - 12.3 fL IS[facility] Comment:Testing performed by : [address] [address] RBC 3.02(L) 4.30 - 5.80 M/cumm ISAAC Comment:Testing performed by : [address] [address] MCV 99.0(H) 81.3 - 96.4 fL IS[facility] Comment:Testing performed by : [address] [address] MCH 28.8 27.1 - 33.3 pg ISAAC Comment:Testing performed by : [address] [address] MCHC 29.1(L) 32.3 - 35.7 g/dL ISAAC SERNA Comment:Testing performed by : [address], [address] RDW CV 17.8(H) 11.1 - 14.9 % IS[facility] Comment:Testing performed by : [address] [address] RDW SD 62.0(H) 35.7 - 48.1 fL IS[facility] Comment:Testing performed by : [address] [address] NRBC abs 0.00 0.00 - 0.01 K/cumm ISAAC Comment:Testing performed by : [address], [address] Blood 12/14/2024 9:08 AM MAGNETIC TESTING TECHNICIAN 12/14/2024 9:09 AM MAGNETIC TESTING TECHNICIAN Nnea Cano NP LAB BLOOD ORDERABLES Final Result Performing Organization Address [facility] de Phone Number ISA[facility] [address] [place] [address] * (ABNORMAL) Reticulocyte Count (12/14/2024 9:08 AM MAGNETIC TESTING TECHNICIAN) Retics, absolute 0.206(H) 0.020 - 0.087 M/cumm Comment:Testing performed by : [address] [address] Retics 6.8(H) 0.4 - 2.9 % IS[facility] Comment:Testing performed by : [address] [address] Reticulocyte Hgb 29.9(L) 30.5 - 38.0 pg ISAAC Comment:Testing performed by : [address] [address] Blood 12/14/2024 9:08 AM MAGNETIC TESTING TECHNICIAN 12/14/2024 9:09 AM MAGNETIC TESTING TECHNICIAN Nena Cano NP LAB BLOOD ORDERABLES Final Result Performing Organization Address [facility] de Phone Number ISAAC [address] [place] [address] * Ferritin (12/14/2024 9:08 AM MAGNETIC TESTING TECHNICIAN) Pathologist [facility] Ferritin 201 30 - 400 ng/mL Comment:Testing performed by : [address] [address] Blood 12/14/2024 9:08 AM MAGNETIC TESTING TECHNICIAN 12/14/2024 9:50 AM MAGNETIC TESTING TECHNICIAN Nena Cano TECHNOLOGY ASSISTANT LAB BLOOD ORDERABLES Final Result [facility] [address] [facility] [place] [address] * (ABNORMAL) Comprehensive metabolic panel (12/14/2024 9:08 AM MAGNETIC TESTING TECHNICIAN) Pathologist [facility] Sodium 142 135 - 145 mmol/L Comment:Testing performed by : [address] [address] Potassium, pl 4.5 3.3 - 4.9 mmol/L ISAAC Comment:Testing performed by : [address] [address] Chloride 109 97 - 110 mmol/L ISAAC Comment:Testing performed by : [address] [address] CO2 23 22 - 32 mmol/L ISAAC Comment:Testing performed by : [address] [address] Anion gap 10 2 - 15 mmol/L ISAAC Comment:Testing performed by : [address] [address] BUN 16 6 - 25 mg/dL ISAAC Comment:Testing performed by : [address] [address] Creatinine 1.70(H) 0.80 - 1.30 mg/dL ISAAC Comment:Testing performed by : [address] [address] Glucose 95 70 - 199 mg/dL ISAAC [...] was last revised 2022. Testing performed by: [address] [address] Calcium 9.0 8.5 - 10.3 mg/dL ISAAC Comment:Testing performed by : [address] [address] Bilirubin, total 0.2 0.1 - 1.2 mg/dL ISAAC Comment:Testing performed by : [address] [address] Protein, pl 6.2(L) 6.5 - 8.5 g/dL ISAAC Comment:Testing performed by : [address] [address] Albumin 3.6 3.5 - 5.0 g/dL ISAAC Comment:Testing performed by : [address] [address] Alk phos 60 40 - 130 Units/L ISAAC Comment:Testing performed by : [address] [address] ALT 19 7 - 55 Units/L ISAAC Comment:Testing performed by : [address] [address] AST 29 10 - 50 Units/L ISAAC Comment:Testing performed by : [address] [address] Blood 12/14/2024 9:08 AM MAGNETIC TESTING TECHNICIAN 12/14/2024 9:09 AM MAGNETIC TESTING TECHNICIAN us Nena Cano NP LAB BLOOD ORDERABLES Final Result [facility] [address] [facility] [place] [address] * CT Chest Abdomen Pelvis W Contrast (12/13/2024 7:09 AM MAGNETIC TESTING TECHNICIAN) Anatomical Region Laterality Modality Body N/A Computed Tomogra phy 12/13/2024 7:26 AM MAGNETIC TESTING TECHNICIAN Impressions 12/13/2024 7:26 AM MAGNETIC TESTING TECHNICIAN 1. Nondistended esophagus. No discrete esophageal lesion identified to correspond to known malignancy. 2. No evidence of metastatic disease in the chest, abdomen, and pelvis. Electronically signed by: Courtney Johnson M.D. Narrative 12/13/2024 7:26 AM MAGNETIC TESTING TECHNICIAN EXAMINATION: Computed tomography of the chest, abdomen [...] pelvis. Electronically signed by: Courtney Johnson M.D. us Nikolay Dunn MD IMG CT PROCEDURES Final Res ult * Colonoscopy (11/17/2024 9:34 AM MAGNETIC TESTING TECHNICIAN) Anatomical Region Laterality Modality Other Narrative Procedure Note Lucio Rosas MD - 11/17/2024 9:34 AM CST [facility] GI ENDOSCOPY Patient Name: Marshall Olson Procedure Date: 11/17/2024 9:34 AM Date of : 1950 Admit Type: Outpatient Age: 74 Gender: Male Attending MD: Lucio Rosas M.D. Room: [facility] ENDOSCOPY ROOM 03 Note Status: [...] The scope was passed under direct vision.The [id number]-[id number] colonoscope was introduced through theanus and advanced to the cecum, identified byappendiceal orifice and ileocecal valve. The scope was passed under direct vision. The [id number] colonoscope was introduced through the and advanced [...] On: 11/17/2024 9:34 AM Recognized by the [employer] for promoting quality in endoscopy Lucio Rosas MD ENDOSCOPY PROCEDURES Final Resul t from Last 3 Months or Most Recently Relevant to Health Maintenance Insurance [employer] MEDICARE [employer] MEDICARE Advance Directives For more information, please contact: [phone] * Full Code (Latest Code Status on File) Date Activated Date Inactivated Comments 01/11/2025 10:34 AM 01/12/2025 5:08 AM * Full Code Date Activated Date Inactivated Comments 12/13/2024 8:18 AM 12/13/2024 5:22 PM Care Teams [employer] Relationship Specialty Start Date End Date Jas Alcala MD [address] [place] [address] PCP - General Internal Medicine 01/04/25 Lucio Rosas MD [address] [address] Consulting Physician Gastroenterology 11/28/24 Bianca Hunter MD [address] [facility] [address] [place] [address] Medical Oncologist/[facility] 12/07/24 Hero Pinedo MD [address] [place] [address] Radiation Oncologist Radiation Oncology 12/28/24 Lon Tomas MD [address] [place] [address] Consulting Physician Urology 01/04/25 Jaycee Teresa MD [address] [place] [address] Consulting Physician Cardiology 01/09/25
--- OUTSIDE RECORDS SUMMARY | 2025-03-13 11:22 | XMS_ITS | Clinical Summary ---
Author Organization [facility] Address [address] [place] [address] Care Team Providers Care Account Development Manager Name Role Phone Lucio Rosas MD Unavailable Bianca Hunter MD Unavailable [phone]- [phone] Hero Pinedo MD Unavailable [phone] Jas Alcala MD Primary Care Provider + [phone] Lon Tomas MD Unavailable [phone] Jaycee Teresa MD Unavailable [phone] Allergies Active Allergy Reactions Criticality Noted Date [...] He also has a history of an [place] and PE. 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 -Pathology discuss in detail and all questions were answered -Refer for EUS -Refer to Oncology and Cardiothoracic surgery Miller's esophagus with high grade dysplasia Assessment & Plan (11/25/2024 9:41 AM HOME CARE MANAGER): EGD September 2024 with irregular Z-line and gastric ulcers. Pathology with Barretts esophagus, indefinite for dysplasia. Repeat EGD November 2024 with Barretts esophagus, pathology with high-grade dysplasia. -Continue pantoprazole 40 mg p.o. b.i.d. History of colon polyps 11/25/2024 Assessment & Plan (11/25/2024 9:42 AM HOME CARE MANAGER): Colonoscopy November 2024 with multiple tubular adenomas. -Repeat colonoscopy November 2027 Gastric ulcer 09/23/2024 Anemia due to blood loss 09/23/2024 Rectal bleeding 08/22/2024 Radiation proctitis 08/22/2024 Assessment & Plan (11/25/2024 9:41 AM HOME CARE MANAGER): Colonoscopy November 2024 with severe radiation proctitis status post APC. -Consider flex sig with APC, patient advised to call office if rectal bleeding gets worse Eosinophilia 02/22/2024 Iron deficiency anemia, unspecified 02/22/2024 Anemia 02/22/2024 VT (ventricular tachycardia) 05/09/2022 Overview (05/09/2022): Added automatically from request for surgery [id number] Lower urinary tract symptoms (LUTS) 05/24/2020 Malignant neoplasm of prostate 04/25/2013 Encounters Date Type Department Care Team Description 02/28/2025 1:00 PM CDT Office Visit [facility] Oncology [address] [place] [phone] Bianca Hunter MD Malignant neoplasm of lower third of esophagus (HCC) (Primary Dx) 02/28/2025 12:30 PM CDT Clinical Support [facility] at [address] [address] Malignant neoplasm of lower third of esophagus (HCC); Anemia, unspecified type; History of pulmonary embolism 02/28/2025 Telephone [facility] Oncology [address] [place] [phone] Georgette Velasco RN 02/27/2025 11:30 AM CDT Treatment [facility] Medical Office Building 2 Radiation Oncology [address] [place] [address] Hero Pinedo MD 02/27/2025 Completion of Therapy [facility] Medical Office Building 2 Radiation Oncology [address] [place] [address] Hero Pinedo MD 02/27/2025 Telephone [facility] Oncology [facility] [place] [phone] Bianca Hunter MD INR results 02/27/2025 Orders Only RAD ONC TREATMENTS Miscellaneous, Not In File 02/24/2025 3:00 PM CDT Lab [facility] at [address] [address] 02/24/2025 12:30 PM CDT Infusion [facility] at [address] [place] [address] Malignant neoplasm of lower third of esophagus (HCC) (Primary Dx) 02/24/2025 11:30 AM CDT Treatment [facility] Medical Office Building 2 Radiation Oncology [address] [place] [address] 02/24/2025 Telephone [facility] Bone Marrow Transplant [address] [place] [phone] Ceci Antony NP 02/24/[address] [facility] Medical Office Building 2 Radiation Oncology [address] [place] [address] Hero Pinedo MD 02/24/2025 Orders Only RAD ONC TREATMENTS Miscellaneous, Not In File 02/23/2025 11:35 AM CDT Treatment [facility] Medical Office Building 2 Radiation Oncology [address] [place] [address] Hero Pinedo MD 02/23/2025 11:30 AM CDT Treatment [facility] Medical Office Building 2 Radiation Oncology [address] [place] [address] Hero Pinedo MD 02/23/2025 9:45 AM CDT Office Visit [facility] Oncology [address] [place] [phone] Bianca Hunter MD Malignant neoplasm of lower third of esophagus (HCC) (Primary Dx); Abnormal coagulation profile 02/23/2025 9:15 AM CDT Clinical Support [facility] at [address] [address] Malignant neoplasm of lower third of esophagus (HCC); Abnormal coagulation profile 02/23/2025 Orders Only RAD ONC TREATMENTS Miscellaneous, Not In File 02/22/2025 12:15 PM CDT Infusion [facility] at [address] [place] [address] Malignant neoplasm of lower third of esophagus (HCC) (Primary Dx) 02/22/2025 11:30 AM CDT Treatment [facility] Medical Office Building 2 Radiation Oncology [address] [place] [address] 02/22/2025 Orders Only [facility] Medical Office Building 2 Radiation Oncology [address] [place] [address] Hero Pinedo MD 02/22/2025 Orders Only [facility] Oncology [address] [place] [phone] Meme Dean RN 02/22/2025 Orders Only [facility] Medical Office Building 2 Radiation Oncology [address] [place] [phone] Hero Pinedo MD Malignant neoplasm of lower third of esophagus (HCC) (Primary Dx) 02/22/[address] [facility] Office [facility] 2 Radiation Oncology [address] [place] [address] Hero Pinedo MD 02/22/2025 Orders Only RAD ONC TREATMENTS Miscellaneous, Not In File 02/22/2025 Orders Only [facility] Medical Office Building 2 Radiation Oncology [address] [place] [phone] Hero Pinedo MD Malignant neoplasm of lower third of esophagus (HCC) (Primary Dx) 02/21/2025 11:[address] [facility] Office Building 2 Radiation Oncology [address] [place] [address] 02/21/2025 Orders Only RAD ONC TREATMENTS Miscellaneous, Not In File 02/20/2025 2:30 PM CDT Treatment [facility] Medical Office Building 2 Radiation Oncology [address] [place] [address] 02/20/2025 11:30 AM CDT Infusion [facility] at [address] [place] [address] Malignant neoplasm of lower third of esophagus (HCC) (Primary Dx) 02/20/2025 Orders Only RAD ONC TREATMENTS Miscellaneous, Not In File 02/20/2025 Orders Only [facility] Oncology [address] [place] [phone] Meme Dean, WILBER 02/20/2025 Orders Only [facility] Oncology [address] [place] [phone] Meme Dean, RN Malignant neoplasm of lower third of esophagus (HCC) (Primary Dx) 02/17/2025 11:30 AM CDT Treatment [facility] Medical Office Building 2 Radiation Oncology [address] [place] [address] 02/17/[address] [facility] Medical Office Building 2 Radiation Oncology [address] [place] [address] Hero Pinedo MD 02/17/2025 Orders Only RAD ONC TREATMENTS Miscellaneous, Not In File 02/16/2025 1:30 PM CDT Clinical Support [facility] Medical Office Building 2 Radiation Oncology [address] [place] [address] Malignant neoplasm of lower third of esophagus (HCC) (Primary Dx) 02/16/2025 12:00 PM CDT Infusion [facility] at [address] [phone] Anemia, unspecified type (Primary Dx); History of pulmonary embolism 02/16/2025 11:00 AM CDT Treatment [facility] Medical Office Building 2 Radiation Oncology [address] [place] [address] 02/16/2025 Orders Only RAD ONC TREATMENTS Miscellaneous, Not In File 02/15/2025 4:00 PM CDT Clinical Support [facility] at [address] [address] Anemia, unspecified type; History of pulmonary embolism; Malignant neoplasm of lower third of esophagus (HCC) 02/15/2025 11:30 AM CDT Treatment [facility] Medical Office Building 2 Radiation Oncology [address] [place] [address] 02/15/2025 Orders Only RAD ONC TREATMENTS Miscellaneous, Not In File 02/14/2025 11:30 AM CDT Treatment [facility] Medical Office Building 2 Radiation Oncology [address] [place] [address] 02/14/2025 9:30 AM CDT Office Visit [facility] Otolaryngology [address] [place] [phone] Jairo Carr MD Mass of left parotid gland (Primary Dx); Malignant neoplasm of lower third of esophagus (HCC) 02/14/2025 Orders Only RAD ONC TREATMENTS Miscellaneous, Not In File 02/13/2025 11:30 AM CDT Treatment [facility] Medical Office Building 2 Radiation Oncology [address] [place] [address] 02/13/2025 Orders Only RAD ONC TREATMENTS Miscellaneous, Not In File 02/10/2025 11:30 AM CDT Treatment [facility] Medical Office Building 2 Radiation Oncology [address] [place] [address] 02/10/[address] [facility] Medical Office Building 2 Radiation Oncology [address] [place] [address] Hero Pinedo MD 02/10/2025 Orders Only RAD ONC TREATMENTS Miscellaneous, Not In File 02/09/2025 1:30 PM CDT Infusion [facility] at [address] [place] [phone] Malignant neoplasm of lower third of esophagus (HCC) (Primary Dx) 02/09/2025 1:00 PM CDT Office Visit [facility] Phys[facility] Oncology [facility] [address] [place] [address] Bianca Hunter MD Malignant neoplasm of lower third of esophagus (HCC) (Primary Dx) 02/09/2025 12:30 PM CDT Clinical Support [facility] at [address] [address] Malignant neoplasm of lower third of esophagus (HCC); Anemia, unspecified type; History of pulmonary embolism 02/09/2025 11:30 AM CDT Treatment [facility] Medical Office Building 2 Radiation Oncology [address] [place] [address] 02/09/2025 Orders Only RAD ONC TREATMENTS Miscellaneous, Not In File 02/08/2025 12:00 PM CDT Clinical Support [facility] Medical Office Building 2 Radiation Oncology [address] [place] [address] Malignant neoplasm of lower third of esophagus (HCC) (Primary Dx) 02/08/2025 11:30 AM CDT Treatment [facility] Medical Office Building 2 Radiation Oncology [address] [place] [address] 02/08/2025 Orders Only RAD ONC TREATMENTS Miscellaneous, Not In File 02/07/2025 11:30 AM CDT Treatment [facility] Medical Office Building 2 Radiation Oncology [address] [place] [address] 02/07/2025 Orders Only RAD ONC TREATMENTS Miscellaneous, Not In File 02/06/2025 11:30 AM CDT Treatment [facility] Medical Office Building 2 Radiation Oncology [address] [place] [address] 02/06/2025 Orders Only RAD ONC TREATMENTS Miscellaneous, Not In File 02/03/2025 11:30 AM CDT Treatment [facility] Medical Office Building 2 Radiation Oncology [address] [place] [address] 02/03/[address] [facility] Medical Office Building 2 Radiation Oncology [address] [place] [address] Hero Pinedo MD 02/03/2025 Orders Only RAD ONC TREATMENTS Miscellaneous, Not In File 02/02/2025 12:45 PM CDT Infusion [facility] at [address] [place] [address] Malignant neoplasm of lower third of esophagus (HCC) (Primary Dx) 02/02/2025 12:15 PM CDT Clinical Support [facility] at [address] [address] Malignant neoplasm of lower third of esophagus (HCC) 02/02/2025 11:30 AM CDT Treatment [facility] Medical Office Building 2 Radiation Oncology [address] [place] [address] 02/02/2025 Orders Only [facility] Oncology [address] [place] [phone] Meme Dean RN 02/02/2025 Orders Only RAD ONC TREATMENTS Miscellaneous, Not In File 02/02/2025 Orders Only [facility] Oncology [address] [place] [phone] Bianca Hunter MD 02/01/2025 12:30 PM CDT Clinical Support [facility] Medical Office Building 2 Radiation Oncology [address] [place] [address] Malignant neoplasm of lower third of esophagus (HCC) (Primary Dx); Malignant neoplasm of prostate (HCC); Miller's esophagus with high grade dysplasia; Atrial fibrillation, unspecified type (HCC); Iron deficiency anemia, unspecified iron deficiency anemia type 02/01/2025 12:00 PM CDT Infusion [facility] [place] at [address] [place] [address] Anemia, unspecified type (Primary Dx); History of pulmonary embolism 02/01/2025 11:30 AM CDT Treatment [facility] Medical Office Building 2 Radiation Oncology [address] [place] [address] 02/01/2025 9:15 AM CDT Clinical Support [facility] at [address] [address] Anemia, unspecified type; History of pulmonary embolism 02/01/2025 Orders Only RAD ONC TREATMENTS Miscellaneous, Not In File 01/31/2025 11:30 AM CDT Treatment [facility] Medical Office Building 2 Radiation Oncology [address] [place] [address] 01/31/2025 Orders Only RAD ONC TREATMENTS Miscellaneous, Not In File 01/30/2025 11:30 AM CDT Treatment [facility] Medical Office Building 2 Radiation Oncology [address] [place] [address] 01/30/2025 Orders Only RAD ONC TREATMENTS Miscellaneous, Not In File 01/27/2025 12:02 PM CDT - 01/27/2025 11:59 PM CDT Hospital Encounter [facility] MOB 1 DIAG IMG [address] [place] [address] Malignant neoplasm of lower third of esophagus (HCC); Acute pain Discharge Disposition: Discharge to home or self care 01/27/2025 11:30 AM CDT Treatment [facility] Medical Office Building 2 Radiation Oncology [address] [place] [address] 01/27/[address] [facility] Medical Office Building 2 Radiation Oncology [address] [place] [address] Hero Pinedo MD 01/27/2025 Orders Only RAD ONC TREATMENTS Miscellaneous, Not In File 01/26/2025 1:45 PM CDT Infusion [facility] at [address] [phone] Malignant neoplasm of lower third of esophagus (HCC) (Primary Dx) 01/26/2025 12:45 PM CDT Office Visit [facility] Oncology [address] [place] [phone] Bianca Hunter MD Malignant neoplasm of lower third of esophagus (HCC) (Primary Dx); Acute pain 01/26/2025 12:15 PM CDT Clinical Support [facility] at [address] [address] Malignant neoplasm of lower third of esophagus (HCC) 01/26/2025 11:30 AM CDT Treatment [facility] Medical Office Building 2 Radiation Oncology [address] [place] [address] 01/26/2025 Orders Only RAD ONC TREATMENTS Miscellaneous, Not In File 01/25/2025 11:30 AM CDT Treatment [facility] Medical Office Building 2 Radiation Oncology [address] [place] [address] 01/25/2025 Orders Only RAD ONC TREATMENTS Miscellaneous, Not In File 01/24/2025 11:30 AM CDT Treatment [facility] Medical Office Building 2 Radiation Oncology [address] [place] [address] 01/24/2025 Orders Only RAD ONC TREATMENTS Miscellaneous, Not In File 01/23/2025 11:30 AM CDT Treatment [facility] Medical Office Building 2 Radiation Oncology [address] [place] [address] 01/23/2025 Orders Only RAD ONC TREATMENTS Miscellaneous, Not In File 01/20/2025 11:30 AM CDT Treatment [facility] Medical Office Building 2 Radiation Oncology [address] [place] [address] 01/20/[address] [facility] Medical Office Building 2 Radiation Oncology [address] [place] [address] Kelin Patterson MD Malignant neoplasm of lower third of esophagus (HCC) (Primary Dx) 01/20/2025 Orders Only RAD ONC TREATMENTS Miscellaneous, Not In File 01/19/2025 10:00 AM CDT Infusion [facility] [place] at [address] [phone] Malignant neoplasm of lower third of esophagus (HCC) (Primary Dx) 01/19/2025 9:30 AM CDT Office Visit [facility] Physicians [facility] Oncology [address] [place] [phone] Bianca Hunter MD Malignant neoplasm of lower third of esophagus (HCC) (Primary Dx) 01/19/2025 9:00 AM CDT Clinical Support [facility] at [address] [address] Malignant neoplasm of lower third of esophagus (HCC) 01/19/2025 8:45 AM CDT Treatment [facility] Medical Office Building 2 Radiation Oncology [address] [place] [address] Hero Pinedo MD 01/19/2025 8:30 AM CDT Treatment [facility] Medical Office Building 2 Radiation Oncology [address] [place] [address] Lon Marti MD 01/19/2025 Orders Only RAD ONC TREATMENTS Miscellaneous, Not In File 01/18/2025 1:30 PM CDT Clinical Support [facility] Medical Office Building 2 Radiation Oncology [address] [place] [address] Malignant neoplasm of lower third of esophagus (HCC) (Primary Dx); Malignant neoplasm of prostate (HCC); Miller's esophagus with high grade dysplasia; History of colon polyps; Iron deficiency anemia, unspecified iron deficiency anemia type 01/18/2025 1:00 PM CDT Infusion [facility] [place] at [address] [phone] Anemia, unspecified type (Primary Dx); History of pulmonary embolism 01/18/2025 9:30 AM CDT Clinical Support [facility] [place] at [address] [address] Anemia, unspecified type; History of pulmonary embolism 01/16/2025 7:55 PM CDT Treatment [facility] Medical Office Building 2 Radiation Oncology [address] [place] [address] 01/13/2025 7:55 PM CDT Treatment [facility] Medical Office Building 2 Radiation Oncology [address] [place] [address] 01/11/2025 9:31 AM CDT - 01/11/2025 11:59 PM CDT Hospital Encounter [facility] Radiology [facility] [address] [place] [address] Bianca Hunter MD Malignant neoplasm of lower third of esophagus (HCC) Discharge Disposition: Discharge to home or self care 01/09/2025 Telephone [facility] Surgery [facility] [address] [place] [address] Lorie Little NP 01/06/2025 6:58 AM HOME CARE MANAGER - 01/06/2025 11:59 PM HOME CARE MANAGER Hospital Encounter [facility] Nuclear Medicine [address] [place] [address] Atrial fibrillation, unspecified type (HCC); Coronary artery disease, unspecified vessel or lesion type, unspecified whether angina present, unspecified whether galena or transplanted heart Discharge Disposition: Discharge to home or self care 01/06/2025 6:58 AM HOME CARE MANAGER - 01/06/2025 11:59 PM HOME CARE MANAGER Hospital Encounter [facility] Nuclear Medicine [address] [place] [address] Discharge Disposition: Discharge to home or self care 01/06/2025 6:58 AM HOME CARE MANAGER - 01/06/2025 11:59 PM HOME CARE MANAGER Hospital Encounter [facility] Nuclear Medicine [address] [place] [address] Atrial fibrillation, unspecified type (HCC); Coronary artery disease, unspecified vessel or lesion type, unspecified whether angina present, unspecified whether galena or transplanted heart Discharge Disposition: Discharge to home or self care 01/06/2025 Telephone [facility] Radiology [facility] [address] [place] [address] Shaniqua Chandler NP 01/06/2025 Telephone [facility] Radiology [address] [place] [address] Erma Box, WILBER 01/05/2025 7:24 AM HOME CARE MANAGER - 01/05/2025 11:59 PM HOME CARE MANAGER Hospital Encounter [facility] Respiratory Therapy [address] [place] [address] Atrial fibrillation, unspecified type (HCC); Coronary artery disease, unspecified vessel or lesion type, unspecified whether angina present, unspecified whether galena or transplanted heart Discharge Disposition: Discharge to home or self care 01/04/2025 11:00 AM HOME CARE MANAGER Office Visit [facility] Hematology [address] [place] [address] [address] [place] [address] Nena Cano NP Anemia, unspecified type (Primary Dx); History of pulmonary embolism 01/04/2025 9:30 AM HOME CARE MANAGER Treatment [facility] Medical Office Building 2 Radiation Oncology [address] [place] [address] Hero Pinedo MD 01/04/2025 9:00 AM HOME CARE MANAGER Consult [facility] Medical Office Building 2 Radiation Oncology [address] [place] [address] Hero Pinedo MD Malignant neoplasm of lower third of esophagus (HCC) 01/04/2025 8:00 AM HOME CARE MANAGER Lab [facility] at [address] [address] Anemia, unspecified type; History of pulmonary embolism 01/04/2025 Orders Only [facility] Oncology [address] [place] [address] [address] [place] [address] Meme Dean, RN Malignant neoplasm of lower third of esophagus (HCC) (Primary Dx) 12/28/2024 Orders Only [facility] Oncology [address] [place] [phone] Meme Dean, RN 12/28/[address] [facility] Medical Office Building 2 Radiation Oncology [address] [place] [address] Alissa Morales 12/27/2024 2:00 PM HOME CARE MANAGER Office Visit [facility] Oncology [address] [place] [address] [address] [place] [address] Bianca Hunter MD Malignant neoplasm of lower third of esophagus (HCC) (Primary Dx) 12/27/2024 1:30 PM HOME CARE MANAGER Lab [facility] at [address] [address] Anemia, unspecified type; History of pulmonary embolism 12/27/[address] [phone] Francie Hassan RN 12/22/2024 8:30 AM HOME CARE MANAGER Office Visit [facility] Surgery [address] [place] [phone] Charlie Juarez MD Malignant neoplasm of lower third of esophagus (HCC) (Primary Dx) 12/22/2024 Orders Only [facility] Surgery [address] [facility] [address] [place] [address] Charlie Juarez MD Atrial fibrillation, unspecified type (HCC) (Primary Dx); Coronary artery disease, unspecified vessel or lesion type, unspecified whether angina present, unspecified whether galena or transplanted heart 12/16/2024 7:30 AM HOME CARE MANAGER - 12/16/2024 11:59 PM HOME CARE MANAGER Hospital Encounter [facility] Medical Office Building [address] [address] Malignant neoplasm of lower third of esophagus (HCC) Discharge Disposition: Discharge to home or self care 12/14/2024 9:00 AM HOME CARE MANAGER Lab [facility] at [address] [address] Anemia, unspecified type; History of pulmonary embolism 12/14/2024 Telephone [address] [address] Abigail Hernandez RN 12/14/2024 Orders Only [facility] Hematology [address] [facility] Floor [address] [place] [address] Gertrude Zhang Lisa Anemia, unspecified type (Primary Dx); History of pulmonary embolism from Last 3 Months Immunizations Immunization Administration [...] TONSILLECTOMY Tonsillectomy - (Added by TW Conv) OR REPAIR FIRST ABDOMINAL [place] LL HERNIA Ventral Hernia Repair - 11/2013 (Added by TW Conv) w/poss mesh CATARACT EXTRACTION, BILATERAL COLONOSCOPY URETHRAL DILATION N/A UPPER GASTROINTESTINAL ENDOSCOPY PORT PLACEMENT CHEST >5 YEARS 01/11/2025 N/A Medical History Medical History Date Comments Chronic bronchitis with productive mucopurulent cough (HCC) Prostate cancer (HCC) Hepatitis A Neuropathy 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[place] (myocardial infarction) (HCC) 2018 PE (pulmonary thromboembolism) [...] on file Legal Sex Male 9:38 AM HOME CARE MANAGER Gender Identity Not on file Sexual Orientation Not on file 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 Not on file Not [...] Discontinued 11/17/2024 Colon Cancer Screening-DNA Stool Discontinued 01/16/20 25 Colon Cancer Screening-FIT Discontinued 11/17/2024 Colon Cancer Screening-Sigmoidoscopy Discontinued 11/17/2024 Abdominal Aortic Aneurysm (A AA) Screen Completed 12/13/2024 Medical Devices Implanted Type Area Clocksmith Device Identifier Shelf Expiration Date Model / Serial / Lot Screws And Rods Spine Lumbar [employer] Xcela Power Port 8fr [id number] - [id number] Implanted:Qty: 1 on 01/11/2025 by Linda Cardenas PA at [facility] [employer] 08/29/2029 [id number] / / [id number] Procedures Procedure Name Priority Date/Time Associated Diagnosis [...] Read Routine (OP Routine) 01/06/2025 9:00 AM HOME CARE MANAGER Atrial fibrillation, unspecified type (HCC) Coronary artery disease, unspecified vessel or lesion type, unspecified whether angina present, unspecified whether galena or transplanted heart NM MPI SPECT (REST AND/OR STRESS) MULTIPLE STUDIES Schedule Routine, Read Routine (OP Routine) 01/06/2025 9:00 AM HOME CARE MANAGER Atrial fibrillation, unspecified type (HCC) Coronary artery disease, unspecified vessel or lesion type, unspecified whether angina present, unspecified whether galena or transplanted heart PULMONARY FUNCTION TEST (PFT) Routine 01/05/2025 8:10 AM HOME CARE MANAGER Atrial fibrillation, unspecified type (HCC) Coronary artery disease, unspecified vessel or lesion type, unspecified whether angina present, unspecified whether galena or transplanted heart EGFR Routine 01/04/2025 8:34 AM HOME CARE MANAGER Anemia, unspecified type History of pulmonary embolism DIFFERENTIAL AUTO Routine 01/04/2025 8:3 4 AM HOME CARE MANAGER Anemia, unspecified type History of pulmonary embolism CBC WITH AUTO DIFFERENTIAL Routine 01/04/2025 8:34 AM HOME CARE MANAGER Anemia, unspecified type History of pulmonary embolism COMPREHENSIVE METABOLIC PANEL Routine 01/04/2025 8:34 AM HOME CARE MANAGER Anemia, unspecified type History of pulmonary embolism FERRITIN Routine 01/04/2025 8:34 AM HOME CARE MANAGER Anemia, unspecified type History of pulmonary embolism IRON PROFILE W/ IBC Routine 01/04/2025 8 :34 AM HOME CARE MANAGER Anemia, unspecified type History of pulmonary embolism RETICULOCYTES Routine 01/04/2025 8:34 AM HOME CARE MANAGER Anemia, unspecified type History of pulmonary embolism EGFR Routine 12/27/2024 1:25 PM HOME CARE MANAGER Anemia, unspecified type History of pulmonary embolism DIFFERENTIAL AUTO Routine 12/27/2024 1:2 5 PM HOME CARE MANAGER Anemia, unspecified type History of pulmonary embolism CBC WITH AUTO DIFFERENTIAL Routine 12/27/2024 1:25 PM HOME CARE MANAGER Anemia, unspecified type History of pulmonary embolism COMPREHENSIVE METABOLIC PANEL Routine 12/27/2024 1:25 PM HOME CARE MANAGER Anemia, unspecified type History of pulmonary embolism FERRITIN Routine 12/27/2024 1:25 PM HOME CARE MANAGER Anemia, unspecified type History of pulmonary embolism IRON PROFILE W/ IBC Routine 12/27/2024 1 :25 PM HOME CARE MANAGER Anemia, unspecified type History of pulmonary embolism RETICULOCYTES Routine 12/27/2024 1:25 PM HOME CARE MANAGER Anemia, unspecified type History of pulmonary embolism PET/CT FDG SKULL TO THIGH Schedule Routine, Read Routine (OP Routine) 12/16/2024 9:43 AM HOME CARE MANAGER Malignant neoplasm of lower third of esophagus (HCC) POCT GLUCOSE DEVICE Routine 12/16/2024 7 :51 AM HOME CARE MANAGER EGFR Routine 12/14/2024 9:08 AM HOME CARE MANAGER Anemia, unspecified type History of pulmonary embolism DIFFERENTIAL AUTO Routine 12/14/2024 9:0 8 AM HOME CARE MANAGER Anemia, unspecified type History of pulmonary embolism CBC WITH AUTO DIFFERENTIAL Routine 12/14/2024 9:08 AM HOME CARE MANAGER Anemia, unspecified type History of pulmonary embolism COMPREHENSIVE METABOLIC PANEL Routine 12/14/2024 9:08 AM HOME CARE MANAGER Anemia, unspecified type History of pulmonary embolism FERRITIN Routine 12/14/2024 9:08 AM HOME CARE MANAGER Anemia, unspecified type History of pulmonary embolism IRON PROFILE W/ IBC Routine 12/14/2024 9 :08 AM HOME CARE MANAGER Anemia, unspecified type History of pulmonary embolism RETICULOCYTES Routine 12/14/2024 9:08 AM HOME CARE MANAGER Anemia, unspecified type History of pulmonary embolism CT CHEST ABDOMEN PELVIS W CONTRAST Schedule Routine, Read Routine (OP Routine) 12/13/2024 7:09 AM HOME CARE MANAGER Malignant neoplasm of lower third of esophagus (HCC) COLONOSCOPY 11/17/2024 9:34 AM HOME CARE MANAGER from Last 3 Months or Most Recently Relevant to Health Maintenance Results * (ABNORMAL) Protime-INR (02/28/2025 12:40 PM CDT) PT 41.1(H) 12.0 - 14.6 sec Comment: Ref Range High Testing performed by: [address] [address] INR 4.4(H) 0.9 - 1.2 [facility] Comment: Ref Range High Interpretive data Oral anticoagulant therapeutic ranges: Venous thromboembolism prophylaxis or treatment: 2.0-3.0 CARDIOLOGY Standard range: 2.0-3.0 High-intensity range: 2.5-3.5 Refer to indication-specific guidelines for appropriate target ranges for prosthetic heart valve replacement. Current interpretive data was last revised on 2019. Testing performed by: [address] [address] Blood 02/28/2025 12:4 0 PM CDT 02/28/2025 1:32 PM CDT Jas Alcala MD LAB BLOOD ORDERABLES Final R esult Performing Organization Address City/[facility] [place] [address] * Blood smear review (02/28/2025 12:03 PM CDT) RBC morphology Consistent with RBC Indicies Comment:Testing performed by : [facility], [address] [place] [address]., [address] Platelet estimate Adequate [facility] Comment:Testing performed by : [facility], [address] [place] [address], [address] Blood 02/28/2025 12:0 3 PM CDT 02/28/2025 12:05 PM CDT Bianca Hunter MD LAB BLOOD ORDERABLES Final Result Performing Organization Address [facility] Co de Phone Number [address] [address] * eGFR (02/28/2025 12:03 PM CDT) eGFR [...] of Race in Diagnosing Kidney Disease, JASN 2021). The CKD-EPI equation should not be used for patients with unstable renal function and has not been validated in children and those over 70. Current interpretive data was last reviewed 2021. Testing performed by: [address] [address] Blood 02/28/2025 12:0 3 PM CDT 02/28/2025 12:05 PM CDT Bianca Hunter MD LAB BLOOD ORDERABLES Final Result [facility] [address] [facility] Department [place] [address] * (ABNORMAL) Differential, auto (02/28/2025 12:03 PM CDT) Neutrophil abs 0.91(L) 1.50 - 6.50 K/cumm Comment:Testing performed by : [address] [address] Imm gran abs 0.06 0.00 - 0.10 K/cumm [facility] Comment:Testing performed by : [address] [address] Lymphocyte abs 0.33(L) 0.80 - 3.30 K/cumm [facility] Comment:Testing performed by : [address] [address] Monocyte abs 0.41 0.20 - 0.80 K/cumm [facility] Comment:Testing performed by : [address] [address] Eosinophil abs 0.04 0.00 - 0.50 K/cumm [facility] Comment:Testing performed by : [address] [address] Basophil abs 0.02 0.00 - 0.10 K/cumm [facility] Comment:Testing performed by : [address] [address] Neutrophil pct 51.4 % [facility] Comment: Differential consistent with previous result. Interpretive Data Percent cell count reference ranges are not reported, since discordance with absolute values may lead to misinterpretation of CBC data. Current Interpretive Data was last revised on 2018. Testing performed by: [address] [address] Imm gran pct 3.4 % [facility] Comment: Interpretive Data Percent cell count reference ranges are not reported, since discordance with absolute values may lead to misinterpretation of CBC data. Current Interpretive Data was last revised on 2018. Testing performed by: [address] [address] Lymphocyte pct 18.6 % [facility] Comment: Interpretive Data Percent cell count reference ranges are not reported, since discordance with absolute values may lead to misinterpretation of CBC data. Current Interpretive Data was last revised on 2018. Testing performed by: [address] [address] Monocyte pct 23.2 % [facility] Comment: Interpretive Data Percent cell count reference ranges are not reported, since discordance with absolute values may lead to misinterpretation of CBC data. Current Interpretive Data was last revised on 2018. Testing performed by: [address] [address] Eosinophil pct 2.3 % [facility] Comment: Interpretive Data Percent cell count reference ranges are not reported, since discordance with absolute values may lead to misinterpretation of CBC data. Current Interpretive Data was last revised on 2018. Testing performed by: [address] [address] Basophil pct 1.1 % [facility] Comment: Interpretive Data Percent cell count reference ranges are not reported, since discordance with absolute values may lead to misinterpretation of CBC data. Current Interpretive Data was last revised on 2018. Testing performed by: [address] [address] Blood 02/28/2025 12:0 3 PM CDT 02/28/2025 12:05 PM CDT Bianca Hunter MD LAB BLOOD ORDERABLES Final Result [facility] [address] [facility] Department [place] [address] * (ABNORMAL) Iron profile w/ IBC (02/28/2025 12:03 PM CDT) [facility] Iron 56 50 - 150 mcg/dL Comment:Testing performed by : [address] [address] TIBC 164(L) 250 - 400 mcg/dL [facility] Comment:Testing performed by : [address] [address] Transferrin saturation 34 20 - 50 % [facility] Comment:Testing performed by : [address] [address] Blood 02/28/2025 12:0 3 PM CDT 02/28/2025 1:32 PM CDT Nena Cano PROJECT MANAGEMENT ANALYST LAB BLOOD ORDERABLES Final Result Performing Organization Address City/State/[facility] Co de Phone Number [place] [address] [facility] Department [place] [address] * (ABNORMAL) CBC with auto differential (02/28/2025 12:03 PM CDT) [facility] WBC 1.77(L) 3.80 - 9.90 K/cumm Comment:Testing performed by : [address] [address] Hgb 9.3(L) 13.0 - 17.5 g/dL [facility] Comment:Testing performed by : [address] [address] Hct 28.9(L) 38.9 - 50.3 % [facility] Comment:Testing performed by : [address] [address] Plt 168 150 - 400 K/cumm [facility] Comment:Testing performed by : [address] [address] MPV 9.5 9.1 - 12.3 fL [facility] Comment:Testing performed by : [address] [address] RBC 3.22(L) 4.30 - 5.80 M/cumm [facility] Comment:Testing performed by : [address] [address] MCV 89.8 81.3 - 96.4 fL [facility] Comment:Testing performed by : [address] [address] MCH 28.9 27.1 - 33.3 pg [facility] Comment:Testing performed by : [address] [address] MCHC 32.2(L) 32.3 - 35.7 g/dL [facility] Comment:Testing performed by : [address] [address] RDW CV 18.7(H) 11.1 - 14.9 % [facility] Comment:Testing performed by : [address], [address] RDW SD 58.7(H) 35.7 - 48.1 fL [facility] Comment:Testing performed by : [address] [address] NRBC abs 0.00 0.00 - 0.01 K/cumm [facility] Comment:Testing performed by : [address] [address] ANC Prelim 0.91(L) 1.50 - 6.50 K/cumm [facility] Comment: Interpretive Data The rapid ANC is a preliminary automated count and may vary from the final ANC (Neut Abs) reported in the WBC differential that follows. Current interpretive data was last revised 2025. Testing performed by: [address] [address] Blood 02/28/2025 12:0 3 PM CDT 02/28/2025 12:05 PM CDT Bianca Hunter MD LAB BLOOD ORDERABLES Final Result [facility] [address] [place] [address] * (ABNORMAL) Reticulocyte Count (02/28/2025 12:03 PM CDT) [facility] Retics, absolute 86 20 - 87 K/cumm Comment:Testing performed by : [address] [address] Retics 2.7 0.4 - 2.9 % [facility] Comment:Testing performed by : [address] [address] Reticulocyte Hgb 30.4(L) 30.5 - 38.0 pg [facility] Comment:Testing performed by : [address] [address] Blood 02/28/2025 12:0 3 PM CDT 02/28/2025 12:05 PM CDT Nena Cano PROJECT MANAGEMENT ANALYST LAB BLOOD ORDERABLES Final Result Performing Organization Address City/[facility]/ZIP Co de Phone Number [address] [address] * Ferritin (02/28/2025 12:03 PM CDT) [facility] Ferritin 208 30 - 400 ng/mL Comment:Testing performed by : [address] [address] Blood 02/28/2025 12:0 3 PM CDT 02/28/2025 1:32 PM CDT Nena Cano PROJECT MANAGEMENT ANALYST LAB BLOOD ORDERABLES Final Result [address] [address] * (ABNORMAL) Comprehensive metabolic panel (02/28/2025 12:03 PM CDT) [facility] Sodium 138 135 - 145 mmol/L Comment:Testing performed by : [address] [address] Potassium, pl 3.6 3.3 - 4.9 mmol/L [facility] Comment:Testing performed by : [address] [address] Chloride 106 97 - 110 mmol/L [facility] Comment:Testing performed by : [address], [place]., [address] CO2 22 22 - 32 mmol/L [facility] Comment:Testing performed by : [address] [address] Anion gap 10 2 - 15 mmol/L [facility] Comment:Testing performed by : [address] [address] BUN 12 6 - 25 mg/dL [facility] Comment:Testing performed by : [address] [address] Creatinine 1.10 0.80 - 1.30 mg/dL [facility] Comment:Testing performed by : [address] [address] Glucose 91 70 - 199 mg/dL [facility] Comment: Interpretive Data Fasting glucose >/= 126 [...] was last revised 2022. Testing performed by: [address] [address] Calcium 8.7 8.5 - 10.3 mg/dL [facility] Comment:Testing performed by : [address] [address] Bilirubin, total 0.4 0.1 - 1.2 mg/dL [facility] Comment:Testing performed by : [address] [address] Protein, pl 5.6(L) 6.5 - 8.5 g/dL [facility] Comment:Testing performed by : [facility], [address] [place] [address]., [address] Albumin 3.2(L) 3.5 - 5.0 g/dL [facility] Comment:Testing performed by : [address], [address] Alk phos 64 40 - 130 Units/L [facility] Comment:Testing performed by : [address], [address] ALT 14 7 - 55 Units/L [facility] Comment:Testing performed by : [address], [address] AST 19 10 - 50 Units/L [facility] Comment:Testing performed by : [address], [address] Blood 02/28/2025 12:0 3 PM CDT 02/28/2025 12:05 PM CDT us Bianca Hunter MD LAB BLOOD ORDERABLES Final Result [facility] Department [place] [address] * RAD ONC ARIA SESSION [...] ORD ERABLES Final Result [facility] * (ABNORMAL) Protime-INR (02/24/2025 2:55 PM CDT) PT 52.2(H) 12.0 - 14.6 sec Comment: Ref Range High Testing performed by: [address] [address] INR 5.9(C) 0.9 - 1.2 [facility] Comment: Ref Range High Critical value. Results called to and read back by: Critical Result called to and read back by Ceci Antony NP for [facility], DATE: 2025-02-24 18:09:13 BY: Adrianna Mascorro MLS [id number] Interpretive data Oral anticoagulant therapeutic ranges: Venous thromboembolism prophylaxis or treatment: 2.0-3.0 CARDIOLOGY Standard range: 2.0-3.0 High-intensity range: 2.5-3.5 Refer to indication-specific guidelines for appropriate target ranges for prosthetic heart valve replacement. Current interpretive data was last revised on 2019. Testing performed by: [address] [address] Blood 02/24/2025 2:55 PM CDT 02/24/2025 4:04 PM CDT Jas Alcala MD LAB BLOOD ORDERABLES Final R esult [facility] [address] [facility] Department [place] [address] * RAD ONC ARIA SESSION [...] ONCOLOGY ORD ERABLES Final Result [facility] * eGFR (02/23/2025 9:31 AM CDT) [...] was last reviewed 2021. Testing performed by: [facility], [address] [place] [address]., [address] Blood 02/23/2025 9:31 AM CDT 02/23/2025 9:46 AM CDT Bianca Hunter MD LAB BLOOD ORDERABLES Final Result [facility] [address] [facility] Department [place] [address] * (ABNORMAL) Differential, auto (02/23/2025 9:31 AM CDT) Neutrophil abs 0.19(C) 1.50 - 6.50 K/cumm Comment: This result has been called to Meme Dean RN [employer] Secure Chat by [email or web address] on 02/23/2025 09:58:21, and has been read back. Testing performed by: [address] [address] Imm gran abs 0.01 0.00 - 0.10 K/cumm [facility] Comment:Testing performed by : [address] [address] Lymphocyte abs 0.20(L) 0.80 - 3.30 K/cumm [facility] Comment:Testing performed by : [address] [address] Monocyte abs 0.40 0.20 - 0.80 K/cumm [facility] Comment:Testing performed by : [address] [address] Eosinophil abs 0.03 0.00 - 0.50 K/cumm [facility] Comment:Testing performed by : [address] [address] Basophil abs 0.01 0.00 - 0.10 K/cumm [facility] Comment:Testing performed by : [address] [address] Neutrophil pct 22.6 % [facility] Comment: Interpretive Data Percent cell count reference ranges are not reported, since discordance with absolute values may lead to misinterpretation of CBC data. Current Interpretive Data was last revised on 2018. Testing performed by: [address] [address] Imm gran pct 1.2 % [facility] Comment: Interpretive Data Percent cell count reference ranges are not reported, since discordance with absolute values may lead to misinterpretation of CBC data. Current Interpretive Data was last revised on 2018. Testing performed by: [address] [address] Lymphocyte pct 23.8 % [facility] Comment: Interpretive Data Percent cell count reference ranges are not reported, since discordance with absolute values may lead to misinterpretation of CBC data. Current Interpretive Data was last revised on 2018. Testing performed by: [address] [address] Monocyte pct 47.6 % [facility] Comment: Interpretive Data Percent cell count reference ranges are not reported, since discordance with absolute values may lead to misinterpretation of CBC data. Current Interpretive Data was last revised on 2018. Testing performed by: [address] [address] Eosinophil pct 3.6 % [facility] Comment: Interpretive Data Percent cell count reference ranges are not reported, since discordance with absolute values may lead to misinterpretation of CBC data. Current Interpretive Data was last revised on 2018. Testing performed by: [address] [address] Basophil pct 1.2 % [facility] Comment: Interpretive Data Percent cell count reference ranges are not reported, since discordance with absolute values may lead to misinterpretation of CBC data. Current Interpretive Data was last revised on 2018. Testing performed by: [address] [address] Blood 02/23/2025 9:31 AM CDT 02/23/2025 9:46 AM CDT us Bianca Hunter MD LAB BLOOD ORDERABLES Final Result [facility] [address] [facility] Department [place] [address] * (ABNORMAL) CBC with auto differential (02/23/2025 9:31 AM CDT) WBC 0.84(C) 3.80 - 9.90 K/cumm Comment: This result has been called to Meme Dean RN Epic Secure Chat by [email or web address] on 02/23/2025 09:58:21, and has been read back. Testing performed by: [address] [address] Hgb 9.0(L) 13.0 - 17.5 g/dL [facility] Comment:Testing performed by : [address] [address] Hct 28.2(L) 38.9 - 50.3 % [facility] Comment:Testing performed by : [address] [address] Plt 164 150 - 400 K/cumm [facility] Comment:Testing performed by : [address] [address] MPV 9.3 9.1 - 12.3 fL [facility] Comment:Testing performed by : [address] [address] RBC 3.14(L) 4.30 - 5.80 M/cumm [facility] Comment:Testing performed by : [address] [address] MCV 89.8 81.3 - 96.4 fL [facility] Comment:Testing performed by : [address] [address] MCH 28.7 27.1 - 33.3 pg [facility] Comment:Testing performed by : [address] [address] MCHC 31.9(L) 32.3 - 35.7 g/dL [facility] Comment:Testing performed by : [address] [address] RDW CV 18.1(H) 11.1 - 14.9 % [facility] Comment:Testing performed by : [address] [address] RDW SD 57.3(H) 35.7 - 48.1 fL [facility] Comment:Testing performed by : [address] [address] NRBC abs 0.00 0.00 - 0.01 K/cumm [facility] Comment:Testing performed by : [address] [address] ANC Prelim 0.19(L) 1.50 - 6.50 K/cumm [facility] Comment: Interpretive Data The rapid ANC is a preliminary automated count and may vary from the final ANC (Neut Abs) reported in the WBC differential that follows. Current interpretive data was last revised 2025. Testing performed by: [address] [address] Morphologic Screen Results confirmed by manual morphology review. [facility] Comment:Testing performed by : [address] [address] Blood 02/23/2025 9:31 AM CDT 02/23/2025 9:46 AM CDT us Bianca Hunter MD LAB BLOOD ORDERABLES Final Result [facility] [address] [facility] Department [place] [address] * (ABNORMAL) Protime-INR (02/23/2025 9:31 AM CDT) PT 49.1(H) 12.0 - 14.6 sec Comment: Ref Range High Testing performed by: [address] [address] INR 5.5(C) 0.9 - 1.2 [facility] Comment: Ref Range High Critical value. Results called to and read back by: Critical Result called to and read back by Meme Dean RN [employer] Secure Chat, DATE: 2025-02-23 11:55:31 BY: [id number] Interpretive data Oral anticoagulant therapeutic ranges: Venous thromboembolism prophylaxis or treatment: 2.0-3.0 CARDIOLOGY Standard range: 2.0-3.0 High-intensity range: 2.5-3.5 Refer to indication-specific guidelines for appropriate target ranges for prosthetic heart valve replacement. Current interpretive data was last revised on 2019. Testing performed by: [address] [address] Blood 02/23/2025 9:31 AM CDT 02/23/2025 11:32 AM CDT Bianca Hunter MD LAB BLOOD ORDERABLES Final Result [facility] [address] [facility] Department [place] [address] * (ABNORMAL) Comprehensive metabolic panel (02/23/2025 9:31 AM CDT) Sodium 142 135 - 145 mmol/L Comment:Testing performed by : [address] [address] Potassium, pl 3.7 3.3 - 4.9 mmol/L [facility] Comment:Testing performed by : [address] [address] Chloride 109 97 - 110 mmol/L [facility] Comment:Testing performed by : [address] [address] CO2 22 22 - 32 mmol/L [facility] Comment:Testing performed by : [address] [address] Anion gap 11 2 - 15 mmol/L [facility] Comment:Testing performed by : [address] [address] BUN 15 6 - 25 mg/dL [facility] Comment:Testing performed by : [address] [address] Creatinine 1.20 0.80 - 1.30 mg/dL [facility] Comment:Testing performed by : [address] [address] Glucose 102 70 - 199 mg/dL [facility] [...] was last revised 2022. Testing performed by: [address] [address] Calcium 8.6 8.5 - 10.3 mg/dL [facility] Comment:Testing performed by : [address] [address] Bilirubin, total 0.4 0.1 - 1.2 mg/dL [facility] Comment:Testing performed by : [address] [address] Protein, pl 5.8(L) 6.5 - 8.5 g/dL [facility] Comment:Testing performed by : [address] [address] Albumin 3.2(L) 3.5 - 5.0 g/dL [facility] Comment:Testing performed by : [address] [address] Alk phos 58 40 - 130 Units/L ISAAC Comment:Testing performed by : [address] [address] ALT 11 7 - 55 Units/L ISAAC Comment:Testing performed by : [address] [address] AST 16 10 - 50 Units/L ISAAC Comment:Testing performed by : [address] [address] Blood 02/23/2025 9:31 AM CDT 02/23/2025 9:46 AM CDT us Bianca Hunter MD LAB BLOOD ORDERABLES Final Result ISAAC [address] [facility] Department of [place], [place] [id number] * RAD ONC ARIA SESSION SUMMARY (02/22/2025 [...] ORD ERABLES Final Result Performing Organization Address City/[facility] Co de Phone Number ARIA * [...] ORD ERABLES Final Result Performing Organization Address City/[facility] Co de Phone Number ARIA * [...] ORD ERABLES Final Result Performing Organization Address [facility] Co de Phone Number ARIA * [...] ORD ERABLES Final Result Performing Organization Address City/[facility]/ZIP Co de Phone Number ARIA * Prepare RBC: 1 Units (02/15/2025 1:40 PM CDT) Units requested 1 Comment:Testing performed by : [address] [address] Units requested Ready ISAAC SERNA Comment:Testing performed by : [address] [address] Unit Number [id number] Product code [id number] ISAAC Blood Expiration Date [facility] Product Blood Type (for scanning) [address] [facility] Product Blood Type APOS SIAAC Dispense Status DISPENSED ISAAC Blood 02/15/2025 1:40 PM CDT 02/15/2025 1:40 PM CDT us Bianca Hunter MD BLOOD BANK PRODUCT O RDERABLES Final Result Performing Organization Address City/[facility] Co de Phone Number [facility] [address] [facility] Department [place] [address] * Blood smear review (02/15/2025 12:27 PM CDT) RBC morphology Consistent with RBC Indicies Comment:Testing performed by : [address] [address] Platelet estimate Adequate ISAAC Comment:Testing performed by : [address] [address] Blood 02/15/2025 12:2 7 PM CDT 02/15/2025 12:29 PM CDT us Nena Cano PROJECT MANAGEMENT ANALYST LAB BLOOD ORDERABLES Final Result Performing Organization Address [facility] de Phone Number ISAAC [facility] Department [place] [address] * (ABNORMAL) eGFR (02/15/2025 12:27 PM CDT) [...] was last reviewed 2021. Testing performed by: [address] [address] Blood 02/15/2025 12:2 7 PM CDT 02/15/2025 12:29 PM CDT Bianca Hunter MD LAB BLOOD ORDERABLES Final Result Performing Organization Address [facility] Co de Phone Number ISAAC [address] [facility] Department [place] [address] * (ABNORMAL) Differential, auto (02/15/2025 12:27 PM CDT) Neutrophil abs 0.66(L) 1.50 - 6.50 K/cumm Comment:Testing performed by : [address] [address] Imm gran abs 0.13(H) 0.00 - 0.10 K/cumm ISAAC Comment:Testing performed by : [address], [place]., [address] Lymphocyte abs 0.03(L) 0.80 - 3.30 K/cumm ISAAC Comment:Testing performed by : [address], [place]., [address] Monocyte abs 0.21 0.20 - 0.80 K/cumm [facility] Comment:Testing performed by : [address], [place]., [address] Eosinophil abs 0.04 0.00 - 0.50 K/cumm [facility] Comment:Testing performed by : [address], [place]., [address] Basophil abs 0.01 0.00 - 0.10 K/cumm [facility] Comment:Testing performed by : [address] [address] Neutrophil pct 61.2 % [facility] Comment: Interpretive Data Percent cell count reference ranges are not reported, since discordance with absolute values may lead to misinterpretation of CBC data. Current Interpretive Data was last revised on 2018. Testing performed by: [address] [address] Imm gran pct 12.0 % [facility] Comment: Interpretive Data Percent cell count reference ranges are not reported, since discordance with absolute values may lead to misinterpretation of CBC data. Current Interpretive Data was last revised on 2018. Testing performed by: [address] [address] Lymphocyte pct 2.8 % [facility] Comment: Interpretive Data Percent cell count reference ranges are not reported, since discordance with absolute values may lead to misinterpretation of CBC data. Current Interpretive Data was last revised on 2018. Testing performed by: [address] [address] Monocyte pct 19.4 % [facility] Comment: Interpretive Data Percent cell count reference ranges are not reported, since discordance with absolute values may lead to misinterpretation of CBC data. Current Interpretive Data was last revised on 2018. Testing performed by: [address] [address] Eosinophil pct 3.7 % ISAAC Comment: Interpretive Data Percent cell count reference ranges are not reported, since discordance with absolute values may lead to misinterpretation of CBC data. Current Interpretive Data was last revised on 2018. Testing performed by: [address] [address] Basophil pct 0.9 % ISAAC Comment: Interpretive Data Percent cell count reference ranges are not reported, since discordance with absolute values may lead to misinterpretation of CBC data. Current Interpretive Data was last revised on 2018. Testing performed by: [address] [address] Blood 02/15/2025 12:2 7 PM CDT 02/15/2025 12:29 PM CDT Nena Cano LAB BLOOD ORDERABLES Final Result Performing Organization Address [facility] Co de Phone Number [facility] [address] [facility] [employer] [place], [place] [id number] * (ABNORMAL) Iron profile w/ IBC (02/15/2025 12:27 PM CDT) Iron 43(L) 50 - 150 mcg/dL Comment:Testing performed by : [address] [address] TIBC 208(L) 250 - 400 mcg/dL ISAAC Comment:Testing performed by : [address] [address] Transferrin saturation 21 20 - 50 % ISAAC Comment:Testing performed by : [address] [address] Blood 02/15/2025 12:2 7 PM CDT 02/15/2025 1:39 PM CDT Nena Cano PROJECT MANAGEMENT ANALYST LAB BLOOD ORDERABLES Final Result Performing Organization Address City/[facility] Co de Phone Number [place] [id number] Department [place] [address] * (ABNORMAL) CBC with auto differential (02/15/2025 12:27 PM CDT) [facility] WBC 1.08(L) 3.80 - 9.90 K/cumm Comment:Testing performed by : [address] [address] Hgb 8.8(L) 13.0 - 17.5 g/dL ISAAC Comment:Testing performed by : [address], [address] Hct 27.1(L) 38.9 - 50.3 % ISAAC Comment:Testing performed by : [address] [address] Plt 136(L) 150 - 400 K/cumm ISAAC Comment:Testing performed by : [address] [address] MPV 9.2 9.1 - 12.3 fL CERADAM Comment:Testing performed by : [address], [address] RBC 3.00(L) 4.30 - 5.80 M/cumm ISAAC Comment:Testing performed by : [address] [address] MCV 90.3 81.3 - 96.4 fL CERADAM Comment:Testing performed by : [address] [address] MCH 29.3 27.1 - 33.3 pg CERADAM Comment:Testing performed by : [address], [address] MCHC 32.5 32.3 - 35.7 g/dL ISAAC Comment:Testing performed by : [address], [address] RDW CV 17.4(H) 11.1 - 14.9 % ISAAC Comment:Testing performed by : [address], [address] RDW SD 54.7(H) 35.7 - 48.1 fL ISAAC Comment:Testing performed by : [address] [address] NRBC abs 0.00 0.00 - 0.01 K/cumm ISAAC Comment:Testing performed by : [address] [address] ANC Prelim 0.66(L) 1.50 - 6.50 K/cumm ISAAC Comment: Interpretive Data The rapid ANC is a preliminary automated count and may vary from the final ANC (Neut Abs) reported in the WBC differential that follows. Current interpretive data was last revised 2025. Testing performed by: [address] [address] Blood 02/15/2025 12:2 7 PM CDT 02/15/2025 12:29 PM CDT Nena Cano NP LAB BLOOD ORDERABLES Final Result Performing Organization Address [facility] Co de Phone Number [address] [place] [address] * ABO/Rh (02/15/2025 12:27 PM CDT) [facility] ABO/Rh A Positive Comment:Testing performed by : [address] [address] Blood 02/15/2025 12:2 7 PM CDT 02/15/2025 1:39 PM CDT Narrative ISAAC - 02/15/2025 2:02 PM CDT Has the patient had Daratumumab or Isatuximab in the past 6 months?->Unknown Nena Cano NP LAB BLOOD BANK TEST ORDERAB LES Final Result Performing Organization Address City/[facility] Co de Phone Number [address] [place] [address] * (ABNORMAL) Reticulocyte Count (02/15/2025 12:27 PM CDT) Pathologist [facility] Retics, absolute 17(L) 20 - 87 K/cumm Comment:Testing performed by : [facility], [address] [place] [address]., [address] Retics 0.6 0.4 - 2.9 % ISAAC Comment:Testing performed by : [address] [address] Reticulocyte Hgb 36.9 30.5 - 38.0 pg ISAAC Comment:Testing performed by : [address] [address] Blood 02/15/2025 12:2 7 PM CDT 02/15/2025 12:29 PM CDT Nena Cano NP LAB BLOOD ORDERABLES Final Result Performing Organization Address City/[facility]/ZIP Co de Phone Number [address] [place] [address] * Crossmatch (02/15/2025 12:27 PM CDT) Crossmatch Compatible [facility] Unit number for crossmatch [id number] [facility] Blood 02/15/2025 12:2 7 PM CDT 02/15/2025 1:39 PM CDT Bianca Hutner MD LAB BLOOD BANK TEST ORDERABLES Final Result Performing Organization Address City/[facility] Co de Phone Number [address] [address] * Antibody screen (02/15/2025 12:27 PM CDT) Divina, indirect, Gel Interpretation Negative ABSC Comment:Testing performed by : [address] [address] Blood 02/15/2025 12:2 7 PM CDT 02/15/2025 1:39 PM CDT Narrative [facility] - 02/15/2025 2:15 PM CDT Has the patient had Daratumumab or Isatuximab in the past 6 months?->Unknown Nena Cano PROJECT MANAGEMENT ANALYST LAB BLOOD BANK TEST ORDERAB LES Final Result Performing Organization Address City/[facility] Co de Phone Number ISAAC [address] [address] * Ferritin (02/15/2025 12:27 PM CDT) Pathologist [facility] Ferritin 255 30 - 400 ng/mL Comment:Testing performed by : [address] [address] Blood 02/15/2025 12:2 7 PM CDT 02/15/2025 1:39 PM CDT Nena Cano PROJECT MANAGEMENT ANALYST LAB BLOOD ORDERABLES Final Result Performing Organization Address [facility] Phone Number ISAAC [address] [address] * (ABNORMAL) Comprehensive metabolic panel (02/15/2025 12:27 PM CDT) [facility] Sodium 137 135 - 145 mmol/L Comment:Testing performed by : [address] [address] Potassium, pl 4.2 3.3 - 4.9 mmol/L ISAAC Comment:Testing performed by : [address] [address] Chloride 106 97 - 110 mmol/L ISAAC Comment:Testing performed by : [address] [address] CO2 22 22 - 32 mmol/L ISAAC Comment:Testing performed by : [address] [address] Anion gap 9 2 - 15 mmol/L ISAAC Comment:Testing performed by : [address] [address] BUN 13 6 - 25 mg/dL ISAAC Comment:Testing performed by : [address] [address] Creatinine 1.40(H) 0.80 - 1.30 mg/dL ISAAC Comment:Testing performed by : [address] [address] Glucose 108 70 - 199 mg/dL ISAAC [...] was last revised 2022. Testing performed by: [address] [address] Calcium 8.8 8.5 - 10.3 mg/dL ISAAC Comment:Testing performed by : [address] [address] Bilirubin, total 0.3 0.1 - 1.2 mg/dL ISAAC Comment:Testing performed by : [address] [address] Protein, pl 6.1(L) 6.5 - 8.5 g/dL ISAAC Comment:Testing performed by : [address] [address] Albumin 4.0 3.5 - 5.0 g/dL ISAAC Comment:Testing performed by : [address] [address] Alk phos 61 40 - 130 Units/L ISAAC Comment:Testing performed by : [address] [address] ALT 14 7 - 55 Units/L ISAAC Comment:Testing performed by : [address] [address] AST 20 10 - 50 Units/L ISAAC Comment:Testing performed by : [address] [address] Blood 02/15/2025 12:2 7 PM CDT 02/15/2025 12:29 PM CDT us Bianca Hunter MD LAB BLOOD ORDERABLES Final Result ISAAC [address] [facility] Department [place] [address] * RAD ONC ARIA SESSION SUMMARY (02/15/2025 [...] ARIA * RAD ONC ARIA SESSION SUMMARY (02/10/2025 [...] with RBC Indicies Comment:Testing performed by : [facility], [address] [place] [address]., [address] Platelet estimate Adequate ISAAC Comment:Testing performed by : [address] [address] Blood 02/09/2025 11:5 0 AM CDT 02/09/2025 11:51 AM CDT Bianca Hunter MD LAB BLOOD ORDERABLES Final Result Performing Organization Address [facility] Co de Phone Number ISAAC [address] [place] [address] * (ABNORMAL) eGFR (02/09/2025 11:50 AM CDT) [...] was last reviewed 2021. Testing performed by: [facility], [address] [place] [address]., [address] Blood 02/09/2025 11:5 0 AM CDT 02/09/2025 11:51 AM CDT Bianca Hunter MD LAB BLOOD ORDERABLES Final Result ISAAC [address] [place] [address] * (ABNORMAL) Differential, auto (02/09/2025 11:50 AM CDT) Neutrophil abs 0.92(L) 1.50 - 6.50 K/cumm Comment:Testing performed by : [address], [place]., [address] Imm gran abs 0.07 0.00 - 0.10 K/cumm [facility] Comment:Testing performed by : [address], [place]., [address] Lymphocyte abs 0.06(L) 0.80 - 3.30 K/cumm [facility] Comment:Testing performed by : [address], [place]., [address] Monocyte abs 0.38 0.20 - 0.80 K/cumm [facility] Comment:Testing performed by : [address], [place]., [address] Eosinophil abs 0.15 0.00 - 0.50 K/cumm [facility] Comment:Testing performed by : [address], [place]., [address] Basophil abs 0.04 0.00 - 0.10 K/cumm [facility] Comment:Testing performed by : [address] [address] Neutrophil pct 56.7 % [facility] Comment: Interpretive Data Percent cell count reference ranges are not reported, since discordance with absolute values may lead to misinterpretation of CBC data. Current Interpretive Data was last revised on 2018. Testing performed by: [address] [address] Imm gran pct 4.3 % [facility] Comment: Interpretive Data Percent cell count reference ranges are not reported, since discordance with absolute values may lead to misinterpretation of CBC data. Current Interpretive Data was last revised on 2018. Testing performed by: [address] [address] Lymphocyte pct 3.7 % [facility] Comment: Interpretive Data Percent cell count reference ranges are not reported, since discordance with absolute values may lead to misinterpretation of CBC data. Current Interpretive Data was last revised on 2018. Testing performed by: [address] [address] Monocyte pct 23.5 % [facility] Comment: Interpretive Data Percent cell count reference ranges are not reported, since discordance with absolute values may lead to misinterpretation of CBC data. Current Interpretive Data was last revised on 2018. Testing performed by: [address] [address] Eosinophil pct 9.3 % ISAAC Comment: Interpretive Data Percent cell count reference ranges are not reported, since discordance with absolute values may lead to misinterpretation of CBC data. Current Interpretive Data was last revised on 2018. Testing performed by: [address] [address] Basophil pct 2.5 % ISAAC Comment: Interpretive Data Percent cell count reference ranges are not reported, since discordance with absolute values may lead to misinterpretation of CBC data. Current Interpretive Data was last revised on 2018. Testing performed by: [address] [address] Blood 02/09/2025 11:5 0 AM CDT 02/09/2025 11:51 AM CDT us Bianca Hunter MD LAB BLOOD ORDERABLES Final Result ISAAC [address] [facility] Department of Laboratories [place], [place] [id number] * (ABNORMAL) Iron profile w/ IBC (02/09/2025 11:50 AM CDT) Iron 50 50 - 150 mcg/dL Comment:Testing performed by : [address] [address] TIBC 235(L) 250 - 400 mcg/dL ISAAC SERNA Comment:Testing performed by : [address] [address] Transferrin saturation 21 20 - 50 % ISAAC SERNA Comment:Testing performed by : [address] [address] Blood 02/09/2025 11:5 0 AM CDT 02/09/2025 3:58 PM CDT us Nena Cano PROJECT MANAGEMENT ANALYST LAB BLOOD ORDERABLES Final Result ISAAC [address] [facility] Department [place] [address] * (ABNORMAL) CBC with auto differential (02/09/2025 11:50 AM CDT) WBC 1.62(L) 3.80 - 9.90 K/cumm Comment:Testing performed by : [address] [address] Hgb 9.2(L) 13.0 - 17.5 g/dL ISAAC Comment:Testing performed by : [address] [address] Hct 28.9(L) 38.9 - 50.3 % ISAAC Comment:Testing performed by : [address] [address] Plt 163 150 - 400 K/cumm ISAAC Comment:Testing performed by : [address] [address] MPV 9.1 9.1 - 12.3 fL ISAAC Comment:Testing performed by : [address] [address] RBC 3.18(L) 4.30 - 5.80 M/cumm ISAAC Comment:Testing performed by : [address] [address] MCV 90.9 81.3 - 96.4 fL ISAAC Comment:Testing performed by : [address] [address] MCH 28.9 27.1 - 33.3 pg ISAAC Comment:Testing performed by : [address] [address] MCHC 31.8(L) 32.3 - 35.7 g/dL ISAAC Comment:Testing performed by : [address], [address] RDW CV 17.1(H) 11.1 - 14.9 % ISAAC Comment:Testing performed by : [address] [address] RDW SD 54.1(H) 35.7 - 48.1 fL ISAAC SERNA Comment:Testing performed by : [address] [address] NRBC abs 0.00 0.00 - 0.01 K/cumm ISAAC Comment:Testing performed by : [address] [address] ANC Prelim 0.92(L) 1.50 - 6.50 K/cumm ISAAC Comment: Interpretive Data The rapid ANC is a preliminary automated count and may vary from the final ANC (Neut Abs) reported in the WBC differential that follows. Current interpretive data was last revised 2025. Testing performed by: [address] [address] Blood 02/09/2025 11:5 0 AM CDT 02/09/2025 11:51 AM CDT us Bianca Hunter MD LAB BLOOD ORDERABLES Final Result [address] [place] [address] * Ferritin (02/09/2025 11:50 AM CDT) [facility] Ferritin 111 30 - 400 ng/mL Comment:Testing performed by : [address] [address] Blood 02/09/2025 11:5 0 AM CDT 02/09/2025 3:58 PM CDT us Nena Cano NP LAB BLOOD ORDERABLES Final Result [address] [place] [address] * (ABNORMAL) Comprehensive metabolic panel (02/09/2025 11:50 AM CDT) Sodium 136 135 - 145 mmol/L Comment:Testing performed by : [facility], [address] [place] [address]., [address] Potassium, pl 4.3 3.3 - 4.9 mmol/L ISAAC Comment:Testing performed by : [address], [place]., [address] Chloride 105 97 - 110 mmol/L ISAAC Comment:Testing performed by : [address], [place]., [address] CO2 23 22 - 32 mmol/L ISAAC Comment:Testing performed by : [address], [place]., [address] Anion gap 8 2 - 15 mmol/L ISAAC Comment:Testing performed by : [address], [place]., [address] BUN 8 6 - 25 mg/dL ISAAC Comment:Testing performed by : [address], [place]., [address] Creatinine 1.40(H) 0.80 - 1.30 mg/dL ISAAC Comment:Testing performed by : [address], [place]., [address] Glucose 102 70 - 199 mg/dL ISAAC [...] was last revised 2022. Testing performed by: [address] [address] Calcium 9.0 8.5 - 10.3 mg/dL ISAAC Comment:Testing performed by : [address], [place]., [address] Bilirubin, total 0.2 0.1 - 1.2 mg/dL ISAAC Comment:Testing performed by : [address] [address] Protein, pl 6.3(L) 6.5 - 8.5 g/dL ISAAC Comment:Testing performed by : [address] [address] Albumin 4.0 3.5 - 5.0 g/dL ISAAC Comment:Testing performed by : [address] [address] Alk phos 63 40 - 130 Units/L ISAAC Comment:Testing performed by : [address] [address] ALT 12 7 - 55 Units/L ISAAC Comment:Testing performed by : [address] [address] AST 17 10 - 50 Units/L ISAAC Comment:Testing performed by : [address] [address] Blood 02/09/2025 11:5 0 AM CDT 02/09/2025 11:51 AM CDT us Bianca Hunter MD LAB BLOOD ORDERABLES Final Result ISAAC [facility] Department [place] [address] * RAD ONC ARIA SESSION SUMMARY (02/09/2025 [...] DION * RAD ONC ARIA SESSION SUMMARY (02/08/2025 [...] ORD ERABLES Final Result Performing Organization Address [facility] Co de Phone Number ARIJovana * RAD ONC ARIA SESSION SUMMARY (02/07/2025 [...] ORD ERABLES Final Result Performing Organization Address City/State/[facility] Co de Phone Number ARIA * [...] ORD ERABLES Final Result Performing Organization Address City/[facility]/ZIP Co de Phone Number ARIJovana * RAD ONC ARIA SESSION SUMMARY (02/03/2025 [...] ORD ERABLES Final Result Performing Organization Address City/[facility]/ZIP Co de Phone Number DION * (ABNORMAL) eGFR [...] was last reviewed 2021. Testing performed by: [address] [address] Blood 02/02/2025 11:5 1 AM CDT 02/02/2025 11:52 AM CDT Bianca Hunter MD LAB BLOOD ORDERABLES Final Result [facility] Department [place] [address] * (ABNORMAL) Differential, auto (02/02/2025 11:51 AM CDT) Neutrophil abs 1.48(L) 1.50 - 6.50 K/cumm Comment:Testing performed by : [address] [address] Imm gran abs 0.03 0.00 - 0.10 K/cumm ISAAC Comment:Testing performed by : [address] [address] Lymphocyte abs 0.13(L) 0.80 - 3.30 K/cumm ISAAC Comment:Testing performed by : [address] [address] Monocyte abs 0.28 0.20 - 0.80 K/cumm ISAAC Comment:Testing performed by : [address] [address] Eosinophil abs 0.18 0.00 - 0.50 K/cumm ISAAC Comment:Testing performed by : [address] [address] Basophil abs 0.02 0.00 - 0.10 K/cumm ISAAC Comment:Testing performed by : [address] [address] Neutrophil pct 69.9 % [facility] Comment: Interpretive Data Percent cell count reference ranges are not reported, since discordance with absolute values may lead to misinterpretation of CBC data. Current Interpretive Data was last revised on 2018. Testing performed by: [address] [address] Imm gran pct 1.4 % ISAAC Comment: Interpretive Data Percent cell count reference ranges are not reported, since discordance with absolute values may lead to misinterpretation of CBC data. Current Interpretive Data was last revised on 2018. Testing performed by: [address] [address] Lymphocyte pct 6.1 % [facility] Comment: Interpretive Data Percent cell count reference ranges are not reported, since discordance with absolute values may lead to misinterpretation of CBC data. Current Interpretive Data was last revised on 2018. Testing performed by: [address] [address] Monocyte pct 13.2 % [facility] Comment: Interpretive Data Percent cell count reference ranges are not reported, since discordance with absolute values may lead to misinterpretation of CBC data. Current Interpretive Data was last revised on 2018. Testing performed by: [address] [address] Eosinophil pct 8.5 % [facility] Comment: Interpretive Data Percent cell count reference ranges are not reported, since discordance with absolute values may lead to misinterpretation of CBC data. Current Interpretive Data was last revised on 2018. Testing performed by: [address] [address] Basophil pct 0.9 % [facility] Comment: Interpretive Data Percent cell count reference ranges are not reported, since discordance with absolute values may lead to misinterpretation of CBC data. Current Interpretive Data was last revised on 2018. Testing performed by: [address] [address] Blood 02/02/2025 11:5 1 AM CDT 02/02/2025 11:52 AM CDT us Bianca Hunter MD LAB BLOOD ORDERABLES Final Result [facility] [address] [facility] Department [place] [address] * (ABNORMAL) CBC with auto differential (02/02/2025 11:51 AM CDT) WBC 2.12(L) 3.80 - 9.90 K/cumm Comment:Testing performed by : [address] [address] Hgb 8.9(L) 13.0 - 17.5 g/dL [facility] Comment:Testing performed by : [address] [address] Hct 27.9(L) 38.9 - 50.3 % [facility] Comment:Testing performed by : [address] [address] Plt 180 150 - 400 K/cumm [facility] Comment:Testing performed by : [address] [address] MPV 8.7(L) 9.1 - 12.3 fL [facility] Comment:Testing performed by : [address] [address] RBC 3.08(L) 4.30 - 5.80 M/cumm [facility] Comment:Testing performed by : [address] [address] MCV 90.6 81.3 - 96.4 fL [facility] Comment:Testing performed by : [address] [address] MCH 28.9 27.1 - 33.3 pg [facility] Comment:Testing performed by : [address] [address] MCHC 31.9(L) 32.3 - 35.7 g/dL [facility] Comment:Testing performed by : [address] [address] RDW CV 17.3(H) 11.1 - 14.9 % [facility] SERNA Comment:Testing performed by : [address] [address] RDW SD 55.3(H) 35.7 - 48.1 fL [facility] SERNA Comment:Testing performed by : [address] [address] NRBC abs 0.00 0.00 - 0.01 K/cumm [facility] Comment:Testing performed by : [address] [address] ANC Prelim 1.48(L) 1.50 - 6.50 K/cumm [facility] Comment: Interpretive Data The rapid ANC is a preliminary automated count and may vary from the final ANC (Neut Abs) reported in the WBC differential that follows. Current interpretive data was last revised 2025. Testing performed by: [address] [address] Blood 02/02/2025 11:5 1 AM CDT 02/02/2025 11:52 AM CDT us Bianca Hunter MD LAB BLOOD ORDERABLES Final Result [facility] [address] [facility] Department of Laboratories [place], [place] [id number] * (ABNORMAL) Comprehensive metabolic panel (02/02/2025 11:51 AM CDT) Sodium 138 135 - 145 mmol/L Comment:Testing performed by : [address] [address] Potassium, pl 4.4 3.3 - 4.9 mmol/L [facility] SERNA Comment:Testing performed by : [address] [address] Chloride 107 97 - 110 mmol/L [facility] SERNA Comment:Testing performed by : [address] [address] CO2 22 22 - 32 mmol/L [facility] SERNA Comment:Testing performed by : [address] [address] Anion gap 9 2 - 15 mmol/L [facility] Comment:Testing performed by : [address] [address] BUN 11 6 - 25 mg/dL [facility] Comment:Testing performed by : [address] [address] Creatinine 1.30 0.80 - 1.30 mg/dL [facility] Comment:Testing performed by : [address] [address] Glucose 95 70 - 199 mg/dL [facility] Comment: Interpretive Data Fasting glucose >/= 126 [...] was last revised 2022. Testing performed by: [address] [address] Calcium 8.9 8.5 - 10.3 mg/dL [facility] Comment:Testing performed by : [address] [address] Bilirubin, total 0.3 0.1 - 1.2 mg/dL [facility] Comment:Testing performed by : [address] [address] Protein, pl 6.3(L) 6.5 - 8.5 g/dL [facility] Comment:Testing performed by : [address] [address] Albumin 3.9 3.5 - 5.0 g/dL [facility] Comment:Testing performed by : [address] [address] Alk phos 58 40 - 130 Units/L [facility] Comment:Testing performed by : [address] [address] ALT 10 7 - 55 Units/L [facility] Comment:Testing performed by : [facility], [address] [place] [address]., [address] AST 14 10 - 50 Units/L [facility] Comment:Testing performed by : [facility], [address] [place] [address]., [address] Blood 02/02/2025 11:5 1 AM CDT 02/02/2025 11:52 AM CDT us Bianca Hunter MD LAB BLOOD ORDERABLES Final Result [facility] [address] [facility] Department [place] [address] * RAD ONC ARIA SESSION SUMMARY (02/02/2025 [...] 4,500 ARIA 02/02/2025 11:3 3 AM CDT Not In File Miscellaneous RADIATION ONCOLOGY ORD ERABLES Final Result [facility] * Transfuse RBC (02/01/2025 1:59 PM CDT) Blood us Janiya Sierra MD BLOOD TRANSFUSION ORDERABLES Fin al Result * RAD ONC ARIA SESSION SUMMARY (02/01/2025 11:45 AM CDT) Course Name C1_Esoph_20 ARIA Course [...] ORD ERABLES Final Result Performing Organization Address [facility] de Phone Number ARIA * Prepare RBC: 1 Units (02/01/2025 10:48 AM CDT) Units requested 1 Comment:Testing performed by : [address] [address] Units requested Ready [facility] SERNA Comment:Testing performed by : [address] [address] Unit Number [id number] Product code [id number] [facility] Blood Expiration Date [id number] [facility] Product Blood Type (for scanning) 6200 [facility] Product Blood Type APOS [facility] Dispense Status DISPENSED [facility] Blood 02/01/2025 10:4 8 AM CDT 02/01/2025 10:48 AM CDT us Bianca Hunter MD BLOOD BANK PRODUCT O RDERABLES Final Result Performing Organization Address City/[facility] Co de Phone Number [facility] [address] [facility] Department [place] [address] * (ABNORMAL) Iron profile w/ IBC (02/01/2025 9:10 AM CDT) Iron 47(L) 50 - 150 mcg/dL Comment:Testing performed by : [address] [address] TIBC 220(L) 250 - 400 mcg/dL [facility] SERNA Comment:Testing performed by : [address] [address] Transferrin saturation 21 20 - 50 % [facility] Comment:Testing performed by : [address] [address] Blood 02/01/2025 9:10 AM CDT 02/01/2025 9:46 AM CDT Nena Cano PROJECT MANAGEMENT ANALYST LAB BLOOD ORDERABLES Final Result Performing Organization Address City/[facility] Co de Phone Number [facility] [address] [place] [address] * Reticulocyte Count (02/01/2025 9:10 AM CDT) Retics, absolute 26 20 - 87 K/cumm Comment:Testing performed by : [address] [address] Retics 1.0 0.4 - 2.9 % [facility] Comment:Testing performed by : [address] [address] Reticulocyte Hgb 36.1 30.5 - 38.0 pg [facility] Comment:Testing performed by : [address] [address] Blood 02/01/2025 9:10 AM CDT 02/01/2025 9:11 AM CDT Nena Cano PROJECT MANAGEMENT ANALYST LAB BLOOD ORDERABLES Final Result Performing Organization Address City/[facility] Co de Phone Number [address] [place] [address] * Ferritin (02/01/2025 9:10 AM CDT) Pathologist [facility] Ferritin 63 30 - 400 ng/mL Comment:Testing performed by : [address] [address] Blood 02/01/2025 9:10 AM CDT 02/01/2025 9:46 AM CDT Nena Cano PROJECT MANAGEMENT ANALYST LAB BLOOD ORDERABLES Final Result [facility] [address] [facility] Department [place] [address] * (ABNORMAL) Differential, auto (02/01/2025 9:02 AM CDT) Neutrophil abs 1.93 1.50 - 6.50 K/cumm Comment:Testing performed by : [address] [address] Imm gran abs 0.02 0.00 - 0.10 K/cumm [facility] Comment:Testing performed by : [address] [address] Lymphocyte abs 0.11(L) 0.80 - 3.30 K/cumm [facility] Comment:Testing performed by : [address] [address] Monocyte abs 0.20 0.20 - 0.80 K/cumm [facility] Comment:Testing performed by : [address] [address] Eosinophil abs 0.19 0.00 - 0.50 K/cumm [facility] Comment:Testing performed by : [address] [address] Basophil abs 0.01 0.00 - 0.10 K/cumm [facility] Comment:Testing performed by : [address] [address] Neutrophil pct 78.5 % [facility] Comment: Interpretive Data Percent cell count reference ranges are not reported, since discordance with absolute values may lead to misinterpretation of CBC data. Current Interpretive Data was last revised on 2018. Testing performed by: [address] [address] Imm gran pct 0.8 % [facility] Comment: Interpretive Data Percent cell count reference ranges are not reported, since discordance with absolute values may lead to misinterpretation of CBC data. Current Interpretive Data was last revised on 2018. Testing performed by: [address] [address] Lymphocyte pct 4.5 % [facility] Comment: Interpretive Data Percent cell count reference ranges are not reported, since discordance with absolute values may lead to misinterpretation of CBC data. Current Interpretive Data was last revised on 2018. Testing performed by: [address] [address] Monocyte pct 8.1 % [facility] Comment: Interpretive Data Percent cell count reference ranges are not reported, since discordance with absolute values may lead to misinterpretation of CBC data. Current Interpretive Data was last revised on 2018. Testing performed by: [address] [address] Eosinophil pct 7.7 % [facility] Comment: Interpretive Data Percent cell count reference ranges are not reported, since discordance with absolute values may lead to misinterpretation of CBC data. Current Interpretive Data was last revised on 2018. Testing performed by: [address] [address] Basophil pct 0.4 % [facility] Comment: Interpretive Data Percent cell count reference ranges are not reported, since discordance with absolute values may lead to misinterpretation of CBC data. Current Interpretive Data was last revised on 2018. Testing performed by: [address] [address] Blood 02/01/2025 9:02 AM CDT 02/01/2025 9:08 AM CDT Nena Cano NP LAB BLOOD ORDERABLES Final Result [facility] [address] [facility] Department of Laboratories [place], [place] [id number] * (ABNORMAL) CBC with auto differential (02/01/2025 9:02 AM CDT) [facility] Signature WBC 2.46(L) 3.80 - 9.90 K/cumm Comment:Testing performed by : [address] [address] Hgb 7.9(L) 13.0 - 17.5 g/dL [facility] Comment:Testing performed by : [address] [address] Hct 25.5(L) 38.9 - 50.3 % [facility] Comment:Testing performed by : [address] [address] Plt 194 150 - 400 K/cumm [facility] Comment:Testing performed by : [address] [address] MPV 9.0(L) 9.1 - 12.3 fL [facility] Comment:Testing performed by : [address] [address] RBC 2.73(L) 4.30 - 5.80 M/cumm [facility] Comment:Testing performed by : [address] [address] MCV 93.4 81.3 - 96.4 fL [facility] Comment:Testing performed by : [address] [address] MCH 28.9 27.1 - 33.3 pg [facility] Comment:Testing performed by : [address] [address] MCHC 31.0(L) 32.3 - 35.7 g/dL [facility] Comment:Testing performed by : [address] [address] RDW CV 16.2(H) 11.1 - 14.9 % [facility] Comment:Testing performed by : [address], [address] RDW SD 54.3(H) 35.7 - 48.1 fL [facility] Comment:Testing performed by : [address] [address] NRBC abs 0.00 0.00 - 0.01 K/cumm [facility] Comment:Testing performed by : [address] [address] ANC Prelim 1.93 1.50 - 6.50 K/cumm [facility] Comment: Interpretive Data The rapid ANC is a preliminary automated count and may vary from the final ANC (Neut Abs) reported in the WBC differential that follows. Current interpretive data was last revised 2025. Testing performed by: [facility], [address] [place] [address]., [address] Blood 02/01/2025 9:02 AM CDT 02/01/2025 9:08 AM CDT Nena Cano NP LAB BLOOD ORDERABLES Final Result Performing Organization Address [facility] Co de Phone Number [address] [address] * ABO/Rh (02/01/2025 9:02 AM CDT) Pathologist [facility] ABO/Rh A Positive Comment:Testing performed by : [facility], [address] [place] [address]., [address] Blood 02/01/2025 9:02 AM CDT 02/01/2025 9:45 AM CDT Narrative [facility] - 02/01/2025 10:28 AM CDT Has the patient had Daratumumab or Isatuximab in the past 6 months?->Unknown Nena Cano NP LAB BLOOD BANK TEST ORDERAB LES Final Result Performing Organization Address [facility] de Phone Number [address] [address] * Crossmatch (02/01/2025 9:02 AM CDT) Crossmatch Compatible [facility] Unit number for crossmatch [id number] [facility] Blood 02/01/2025 9:02 AM CDT 02/01/2025 9:45 AM CDT Jas Alcala MD LAB BLOOD BANK TEST ORDERABL ES Final Result Performing Organization Address [facility] Co de Phone Number [address] [place] [address] * Antibody screen (02/01/2025 9:02 AM CDT) Divina, indirect, Gel Interpretation Negative [facility] Comment:Testing performed by : [facility], [address] [place] [address], [place]., [address] Blood 02/01/2025 9:02 AM CDT 02/01/2025 9:45 AM CDT Narrative [facility] - 02/01/2025 10:38 AM CDT Has the patient had Daratumumab or Isatuximab in the past 6 months?->Unknown us Nena Cano PROJECT MANAGEMENT ANALYST LAB BLOOD BANK TEST ORDERAB LES Final Result [facility] [address] [facility] Department [place] [address] * RAD ONC ARIA SESSION SUMMARY (01/31/2025 11:32 AM CDT) Course Name C1_Esoph_20 ARIA [...] (01/30/2025 11:29 AM CDT) Course Name C1_Esoph_20 ARIA Course [...] Moise Cm M.D. MM: MM Report ID: [id number] Reading Location: [id number] Procedure Note Moise Cm MD - 02/06/2025 [...] Moise Cm M.D. MM: MM Report ID: [id number] Reading Location: [place] [address] us Bianca Hunter MD IMG XR PROCEDURES [...] Inclusion of Race in Diagnosing Kidney Disease, APRILSZe 2020). The CKD-EPI equation should not be used for patients with unstable renal function and has not been validated in children and those over 70. Current interpretive data was last reviewed 2021. Testing performed by: [address] [address] Blood 01/26/2025 12:2 1 PM CDT 01/26/2025 12:31 PM CDT us Bianca Hunter MD LAB BLOOD ORDERABLES Final Result [facility] [address] [facility] Department [place] [address] * (ABNORMAL) Differential, auto (01/26/2025 12:21 PM CDT) Neutrophil abs 2.3 1.5 - 6.5 K/cumm Comment:Testing performed by : [address] [address] Imm gran abs 0.1 0.0 - 0.1 K/cumm [facility] Comment:Testing performed by : [address] [address] Lymphocyte abs 0.2(L) 0.8 - 3.3 K/cumm [facility] Comment:Testing performed by : [address] [address] Monocyte abs 0.3 0.2 - 0.8 K/cumm [facility] Comment:Testing performed by : [address] [address] Eosinophil abs 0.3 0.0 - 0.5 K/cumm [facility] Comment:Testing performed by : [address] [address] Basophil abs 0.0 0.0 - 0.1 K/cumm [facility] Comment:Testing performed by : [address] [address] Neutrophil pct 73.3 % [facility] Comment: Interpretive Data Percent cell count reference ranges are not reported, since discordance with absolute values may lead to misinterpretation of CBC data. Current Interpretive Data was last revised on 2018. Testing performed by: [address] [address] Imm gran pct 2.9 % [facility] Comment: Interpretive Data Percent cell count reference ranges are not reported, since discordance with absolute values may lead to misinterpretation of CBC data. Current Interpretive Data was last revised on 2018. Testing performed by: [address] [address] Lymphocyte pct 5.8 % [facility] Comment: Interpretive Data Percent cell count reference ranges are not reported, since discordance with absolute values may lead to misinterpretation of CBC data. Current Interpretive Data was last revised on 2018. Testing performed by: [address] [address] Monocyte pct 8.0 % [facility] Comment: Interpretive Data Percent cell count reference ranges are not reported, since discordance with absolute values may lead to misinterpretation of CBC data. Current Interpretive Data was last revised on 2018. Testing performed by: [address] [address] Eosinophil pct 9.0 % [facility] Comment: Interpretive Data Percent cell count reference ranges are not reported, since discordance with absolute values may lead to misinterpretation of CBC data. Current Interpretive Data was last revised on 2018. Testing performed by: [address] [address] Basophil pct 1.0 % [facility] Comment: Interpretive Data Percent cell count reference ranges are not reported, since discordance with absolute values may lead to misinterpretation of CBC data. Current Interpretive Data was last revised on 2018. Testing performed by: [address] [address] Blood 01/26/2025 12:2 1 PM CDT 01/26/2025 12:31 PM CDT Bianca Hunter MD LAB BLOOD ORDERABLES Final Result [facility] [address] [facility] Department [place] [address] * (ABNORMAL) CBC with auto differential (01/26/2025 12:21 PM CDT) [facility] Signature WBC 3.1(L) 3.8 - 9.9 K/cumm Comment:Testing performed by : [address] [address] Hgb 8.1(L) 13.0 - 17.5 g/dL [facility] Comment:Testing performed by : [address] [address] Hct 26.6(L) 38.9 - 50.3 % [facility] Comment:Testing performed by : [address] [address] Plt 234 150 - 400 K/cumm [facility] Comment:Testing performed by : [address] [address] MPV 8.6(L) 9.1 - 12.3 fL [facility] Comment:Testing performed by : [address] [address] RBC 2.80(L) 4.30 - 5.80 M/cumm [facility] Comment:Testing performed by : [address] [address] MCV 95.0 81.3 - 96.4 fL [facility] Comment:Testing performed by : [address] [address] MCH 28.9 27.1 - 33.3 pg [facility] Comment:Testing performed by : [address] [address] MCHC 30.5(L) 32.3 - 35.7 g/dL [facility] Comment:Testing performed by : [address] [address] RDW CV 16.4(H) 11.1 - 14.9 % [facility] Comment:Testing performed by : [address] [address] RDW SD 57.5(H) 35.7 - 48.1 fL [facility] SERNA Comment:Testing performed by : [address] [address] NRBC abs 0.00 0.00 - 0.01 K/cumm [facility] SERNA Comment:Testing performed by : [address] [address] Blood 01/26/2025 12:2 1 PM CDT 01/26/2025 12:31 PM CDT Bianca Hunter MD LAB BLOOD ORDERABLES Final Result [facility] SERNA [facility] Department [place] [address] * (ABNORMAL) Comprehensive metabolic panel (01/26/2025 12:21 PM CDT) Sodium 139 135 - 145 mmol/L Comment:Testing performed by : [address] [address] Potassium, pl 4.6 3.3 - 4.9 mmol/L [facility] SERNA Comment:Testing performed by : [address] [address] Chloride 109 97 - 110 mmol/L [facility] Comment:Testing performed by : [address] [address] CO2 22 22 - 32 mmol/L [facility] Comment:Testing performed by : [address] [address] Anion gap 8 2 - 15 mmol/L [facility] Comment:Testing performed by : [address] [address] BUN 16 6 - 25 mg/dL [facility] Comment:Testing performed by : [address] [address] Creatinine 1.50(H) 0.80 - 1.30 mg/dL [facility] Comment:Testing performed by : [address] [address] Glucose 100 70 - 199 mg/dL [facility] [...] was last revised 2022. Testing performed by: [address] [address] Calcium 8.4(L) 8.5 - 10.3 mg/dL [facility] Comment:Testing performed by : [address] [address] Bilirubin, total 0.2 0.1 - 1.2 mg/dL [facility] Comment:Testing performed by : [address] [address] Protein, pl 6.0(L) 6.5 - 8.5 g/dL [facility] Comment:Testing performed by : [address] [address] Albumin 3.7 3.5 - 5.0 g/dL [facility] Comment:Testing performed by : [address] [address] Alk phos 57 40 - 130 Units/L [facility] Comment:Testing performed by : [address] [address] ALT 9 7 - 55 Units/L [facility] Comment:Testing performed by : [address] [address] AST 13 10 - 50 Units/L [facility] Comment:Testing performed by : [address] [address] Blood 01/26/2025 12:2 1 PM CDT 01/26/2025 12:31 PM CDT Bianca Hunter MD LAB BLOOD ORDERABLES Final Result [facility] Department [place] [address] * RAD ONC ARIA SESSION SUMMARY (01/26/2025 [...] SUMMARY (01/25/2025 11:38 AM CDT) Course Name C1_Esoph_20 25 [...] ORD ERABLES Final Result Performing Organization Address City/[facility]/ZIP Co de Phone Number DION * RAD ONC ARIA SESSION SUMMARY (01/23/2025 11:40 AM CDT) Course Name C1_Esoph_ ARIA Course [...] ARIJovana * RAD ONC ARIA SESSION SUMMARY (01/20/2025 11:48 AM CDT) Course Name C1_Esoph_ ARIA Course [...] was last reviewed 2021. Testing performed by: [address] [address] Blood 01/19/2025 8:52 AM CDT 01/19/2025 8:59 AM CDT us Bianca Hunter MD LAB BLOOD ORDERABLES Final Result [facility] [address] [facility] Department [place] [address] * (ABNORMAL) Differential, auto (01/19/2025 8:52 AM CDT) Neutrophil abs 2.9 1.5 - 6.5 K/cumm Comment:Testing performed by : [address] [address] Imm gran abs 0.0 0.0 - 0.1 K/cumm CERNER Comment:Testing performed by : [address] [address] Lymphocyte abs 0.6(L) 0.8 - 3.3 K/cumm CERNER Comment:Testing performed by : [address] [address] Monocyte abs 0.6 0.2 - 0.8 K/cumm CERNER Comment:Testing performed by : [address] [address] Eosinophil abs 0.6(H) 0.0 - 0.5 K/cumm CERNER Comment:Testing performed by : [address] [address] Basophil abs 0.1 0.0 - 0.1 K/cumm [facility] Comment:Testing performed by : [address] [address] Neutrophil pct 60.4 % [facility] Comment: Interpretive Data Percent cell count reference ranges are not reported, since discordance with absolute values may lead to misinterpretation of CBC data. Current Interpretive Data was last revised on 2018. Testing performed by: [address] [address] Imm gran pct 0.4 % [facility] Comment: Interpretive Data Percent cell count reference ranges are not reported, since discordance with absolute values may lead to misinterpretation of CBC data. Current Interpretive Data was last revised on 2018. Testing performed by: [address] [address] Lymphocyte pct 13.1 % C[facility] Comment: Interpretive Data Percent cell count reference ranges are not reported, since discordance with absolute values may lead to misinterpretation of CBC data. Current Interpretive Data was last revised on 2018. Testing performed by: [address] [address] Monocyte pct 13.3 % CERNER Comment: Interpretive Data Percent cell count reference ranges are not reported, since discordance with absolute values may lead to misinterpretation of CBC data. Current Interpretive Data was last revised on 2018. Testing performed by: [address] [address] Eosinophil pct 11.8 % [facility] Comment: Interpretive Data Percent cell count reference ranges are not reported, since discordance with absolute values may lead to misinterpretation of CBC data. Current Interpretive Data was last revised on 2018. Testing performed by: [address] [address] Basophil pct 1.0 % [facility] Comment: Interpretive Data Percent cell count reference ranges are not reported, since discordance with absolute values may lead to misinterpretation of CBC data. Current Interpretive Data was last revised on 2018. Testing performed by: [address] [address] Blood 01/19/2025 8:52 AM CDT 01/19/2025 8:59 AM CDT Bianca Hunter MD LAB BLOOD ORDERABLES Final Result [facility] [address] [facility] Department of Laboratories [place], [place] [id number] * (ABNORMAL) CBC with auto differential (01/19/2025 8:52 AM CDT) Pathologist [facility] WBC 4.8 3.8 - 9.9 K/cumm Comment:Testing performed by : [address] [address] Hgb 8.7(L) 13.0 - 17.5 g/dL [facility] Comment:Testing performed by : [address] [address] Hct 28.8(L) 38.9 - 50.3 % [facility] Comment:Testing performed by : [address] [address] Plt 259 150 - 400 K/cumm [facility] Comment:Testing performed by : [address] [address] MPV 8.5(L) 9.1 - 12.3 fL [facility] SERNA Comment:Testing performed by : [address] [address] RBC 3.05(L) 4.30 - 5.80 M/cumm [facility] SERNA Comment:Testing performed by : [address] [address] MCV 94.4 81.3 - 96.4 fL [facility] SERNA Comment:Testing performed by : [address] [address] MCH 28.5 27.1 - 33.3 pg [facility] SERNA Comment:Testing performed by : [address] [address] MCHC 30.2(L) 32.3 - 35.7 g/dL [facility] SERNA Comment:Testing performed by : [address] [address] RDW CV 18.5(H) 11.1 - 14.9 % ISAAC Comment:Testing performed by : [address] [address] RDW SD 64.4(H) 35.7 - 48.1 fL ISAAC Comment:Testing performed by : [address] [address] NRBC abs 0.00 0.00 - 0.01 K/cumm ISAAC SERNA Comment:Testing performed by : [address] [address] Blood 01/19/2025 8:52 AM CDT 01/19/2025 8:59 AM CDT us Bianca Hunter MD LAB BLOOD ORDERABLES Final Result ISAAC SERNA [address] [facility] Department [place] [address] * (ABNORMAL) Comprehensive metabolic panel (01/19/2025 8:52 AM CDT) Sodium 140 135 - 145 mmol/L Comment:Testing performed by : [address] [address] Potassium, pl 4.0 3.3 - 4.9 mmol/L [facility] Comment:Testing performed by : [address] [address] Chloride 108 97 - 110 mmol/L ISAAC Comment:Testing performed by : [address], [place]., [address] CO2 24 22 - 32 mmol/L ISAAC Comment:Testing performed by : [address], [place]., [address] Anion gap 8 2 - 15 mmol/L [facility] Comment:Testing performed by : [address] [address] BUN 16 6 - 25 mg/dL [facility] Comment:Testing performed by : [address], [place]., [address] Creatinine 1.80(H) 0.80 - 1.30 mg/dL ISAAC Comment:Testing performed by : [address] [address] Glucose 98 70 - 199 mg/dL [facility] Comment: Interpretive Data Fasting glucose >/= 126 [...] was last revised 2022. Testing performed by: [address] [address] Calcium 8.7 8.5 - 10.3 mg/dL ISAAC Comment:Testing performed by : [address] [address] Bilirubin, total 0.2 0.1 - 1.2 mg/dL [facility] Comment:Testing performed by : [address] [address] Protein, pl 6.2(L) 6.5 - 8.5 g/dL IS[facility]AC Comment:Testing performed by : [address] [address] Albumin 3.8 3.5 - 5.0 g/dL IS[facility]AC Comment:Testing performed by : [address], [address] Alk phos 65 40 - 130 Units/L ISAAC Comment:Testing performed by : [address], [address] ALT 9 7 - 55 Units/L ISAAC Comment:Testing performed by : [address], [address] AST 13 10 - 50 Units/L ISAAC Comment:Testing performed by : [address], [address] Blood 01/19/2025 8:52 AM CDT 01/19/2025 8:59 AM CDT us Bianca Hunter MD LAB BLOOD ORDERABLES Final Result [place] [address] [facility] Department [place] [address] * RAD ONC ARIA SESSION SUMMARY (01/19/2025 [...] Units requested 1 Comment:Testing performed by : [address] [address] Units requested Ready ISAAC Comment:Testing performed by : [facility], [address] [place] [address]., [address] Unit Number [id number] Product code [id number] [facility] Blood Expiration Date [id number] [facility] Product Blood Type (for scanning) 9500 [facility] Product Blood Type ONEG [facility] Dispense Status DISPENSED [facility] Blood 01/18/2025 11:3 1 AM CDT 01/18/2025 11:31 AM CDT us Nena Cano NP BLOOD BANK PRODUCT ORDERABL ES Final Result ISAAC [address] [facility] Department [place] [address] * (ABNORMAL) eGFR (01/18/2025 9:42 [...] of Race in Diagnosing Kidney Disease, JASN 2021). The CKD-EPI equation should not be used for patients with unstable renal function and has not been validated in children and those over 70. Current interpretive data was last reviewed 2021. Testing performed by: [facility], [address] [place] [address]., [address] Blood 01/18/2025 9:42 AM CDT 01/18/2025 9:44 AM CDT Nena Cano NP LAB BLOOD ORDERABLES Final Result [facility]AC [address] [facility] Department [place] [address] * (ABNORMAL) Differential, auto (01/18/2025 9:42 AM CDT) Neutrophil abs 3.3 1.5 - 6.5 K/cumm Comment:Testing performed by : [address] [address] Imm gran abs 0.0 0.0 - 0.1 K/cumm ISAAC Comment:Testing performed by : [address] [address] Lymphocyte abs 0.6(L) 0.8 - 3.3 K/cumm ISAAC Comment:Testing performed by : [address] [address] Monocyte abs 0.6 0.2 - 0.8 K/cumm ISAAC Comment:Testing performed by : [address] [address] Eosinophil abs 0.6(H) 0.0 - 0.5 K/cumm ISAAC Comment:Testing performed by : [address] [address] Basophil abs 0.1 0.0 - 0.1 K/cumm ISAAC Comment:Testing performed by : [address] [address] Neutrophil pct 63.9 % [facility] Comment: Interpretive Data Percent cell count reference ranges are not reported, since discordance with absolute values may lead to misinterpretation of CBC data. Current Interpretive Data was last revised on 2018. Testing performed by: [address] [address] Imm gran pct 0.4 % [facility]AC Comment: Interpretive Data Percent cell count reference ranges are not reported, since discordance with absolute values may lead to misinterpretation of CBC data. Current Interpretive Data was last revised on 2018. Testing performed by: [address] [address] Lymphocyte pct 11.8 % [facility] Comment: Interpretive Data Percent cell count reference ranges are not reported, since discordance with absolute values may lead to misinterpretation of CBC data. Current Interpretive Data was last revised on 2018. Testing performed by: [address] [address] Monocyte pct 11.9 % [facility] Comment: Interpretive Data Percent cell count reference ranges are not reported, since discordance with absolute values may lead to misinterpretation of CBC data. Current Interpretive Data was last revised on 2018. Testing performed by: [address] [address] Eosinophil pct 10.8 % [facility] Comment: Interpretive Data Percent cell count reference ranges are not reported, since discordance with absolute values may lead to misinterpretation of CBC data. Current Interpretive Data was last revised on 2018. Testing performed by: [address] [address] Basophil pct 1.2 % [facility] Comment: Interpretive Data Percent cell count reference ranges are not reported, since discordance with absolute values may lead to misinterpretation of CBC data. Current Interpretive Data was last revised on 2018. Testing performed by: [address] [address] Blood 01/18/2025 9:42 AM CDT 01/18/2025 9:44 AM CDT Nena Cano NP LAB BLOOD ORDERABLES Final Result [place] [address] [facility] [place] [address] * Iron profile w/ IBC (01/18/2025 9:42 AM CDT) [facility] Iron 50 50 - 150 mcg/dL Comment:Testing performed by : [address] [address] TIBC 251 250 - 400 mcg/dL ISAAC Comment:Testing performed by : [address] [address] Transferrin saturation 20 20 - 50 % ISAAC Comment:Testing performed by : [address] [address] Blood 01/18/2025 9:42 AM CDT 01/18/2025 11:48 AM CDT Nena Cano PROJECT MANAGEMENT ANALYST LAB BLOOD ORDERABLES Final Result Performing Organization Address City/State/[facility] Co de Phone Number [facility] [address] [facility] [place] [address] * (ABNORMAL) CBC with auto differential (01/18/2025 9:42 AM CDT) [facility] WBC 5.2 3.8 - 9.9 K/cumm Comment:Testing performed by : [address] [address] Hgb 8.4(L) 13.0 - 17.5 g/dL ISAAC SERNA Comment:Testing performed by : [address] [address] Hct 28.3(L) 38.9 - 50.3 % ISAAC SERNA Comment:Testing performed by : [address] [address] Plt 259 150 - 400 K/cumm ISAAC SERNA Comment:Testing performed by : [address] [address] MPV 8.4(L) 9.1 - 12.3 fL ISAAC SERNA Comment:Testing performed by : [address] [address] RBC 2.88(L) 4.30 - 5.80 M/cumm ISAAC Comment:Testing performed by : [address] [address] MCV 98.3(H) 81.3 - 96.4 fL ISAAC Comment:Testing performed by : [address], [address] MCH 29.2 27.1 - 33.3 pg ISAAC Comment:Testing performed by : [address], [address] MCHC 29.7(L) 32.3 - 35.7 g/dL [facility]AC Comment:Testing performed by : [address], [address] RDW CV 16.6(H) 11.1 - 14.9 % ISAAC Comment:Testing performed by : [address], [address] RDW SD 59.7(H) 35.7 - 48.1 fL ISAAC Comment:Testing performed by : [address], [address] NRBC abs 0.00 0.00 - 0.01 K/cumm ISAAC Comment:Testing performed by : [address], [address] Blood 01/18/2025 9:42 AM CDT 01/18/2025 9:44 AM CDT Nena Cano PROJECT MANAGEMENT ANALYST LAB BLOOD ORDERABLES Final Result [facility] [address] [facility] Department [place] [address] * ABO/Rh (01/18/2025 9:42 AM CDT) ABO/Rh A Positive Comment:Testing performed by : [address], [address] Blood 01/18/2025 9:42 AM CDT 01/18/2025 10:13 AM CDT Narrative [facility] - 01/18/2025 11:08 AM CDT Has the patient had Daratumumab or Isatuximab in the past 6 months?->Unknown Nena Cano PROJECT MANAGEMENT ANALYST LAB BLOOD BANK TEST ORDERAB LES Final Result Performing Organization Address [facility] Co de Phone Number [facility] [address] [facility] [place] [address] * (ABNORMAL) Reticulocyte Count (01/18/2025 9:42 AM CDT) Retics, absolute 0.150(H) 0.020 - 0.087 M/cumm Comment:Testing performed by : [address] [address] Retics 5.2(H) 0.4 - 2.9 % [facility] Comment:Testing performed by : [address] [address] Reticulocyte Hgb 31.1 30.5 - 38.0 pg ISAAC Comment:Testing performed by : [facility], [address] [place] [address]., [address] Blood 01/18/2025 9:42 AM CDT 01/18/2025 9:44 AM CDT Nena Cano PROJECT MANAGEMENT ANALYST LAB BLOOD ORDERABLES Final Result Performing Organization Address [facility] de Phone Number [facility] [address] [facility] [place] [address] * Crossmatch (01/18/2025 9:42 AM CDT) Crossmatch Compatible [facility] Unit number for crossmatch [id number] [facility] Blood 01/18/2025 9:42 AM CDT 01/18/2025 10:13 AM CDT Gosia Gagnon MD LAB BLOOD BANK TEST ORDERAB LES Final Result Performing Organization Address City/[facility]/ZIP Co de Phone Number [address] [address] * Antibody screen (01/18/2025 9:42 AM CDT) Pathologist [facility] Divina, indirect, Gel Interpretation Negative ABSC Comment:Testing performed by : [address] [address] Blood 01/18/2025 9:42 AM CDT 01/18/2025 10:13 AM CDT Narrative [facility] - 01/18/2025 11:08 AM CDT Has the patient had Daratumumab or Isatuximab in the past 6 months?->Unknown Nena Cano PROJECT MANAGEMENT ANALYST LAB BLOOD BANK TEST ORDERAB LES Final Result Performing Organization Address [facility] Phone Number [address] [address] * Ferritin (01/18/2025 9:42 AM CDT) [facility] Ferritin 70 30 - 400 ng/mL Comment:Testing performed by : [address] [address] Blood 01/18/2025 9:42 AM CDT 01/18/2025 11:48 AM CDT Nena Cano PROJECT MANAGEMENT ANALYST LAB BLOOD ORDERABLES Final Result Performing Organization Address [facility] de Phone Number [address] [address] * (ABNORMAL) Comprehensive metabolic panel (01/18/2025 9:42 AM CDT) [facility] Sodium 141 135 - 145 mmol/L Comment:Testing performed by : [address] [address] Potassium, pl 4.1 3.3 - 4.9 mmol/L [facility]AC Comment:Testing performed by : [address] [address] Chloride 109 97 - 110 mmol/L [facility] Comment:Testing performed by : [address] [address] CO2 23 22 - 32 mmol/L [facility] Comment:Testing performed by : [address], [place]., [address] Anion gap 9 2 - 15 mmol/L [facility] Comment:Testing performed by : [address] [address] BUN 17 6 - 25 mg/dL [facility] Comment:Testing performed by : [address], [place]., [address] Creatinine 1.90(H) 0.80 - 1.30 mg/dL [facility]AC Comment:Testing performed by : [address] [address] Glucose 106 70 - 199 mg/dL [facility] [...] was last revised 2022. Testing performed by: [address] [address] Calcium 8.9 8.5 - 10.3 mg/dL [facility] Comment:Testing performed by : [address] [address] Bilirubin, total <0.2 0.1 - 1.2 mg/dL [facility] Comment:Testing performed by : [address] [address] Protein, pl 6.4(L) 6.5 - 8.5 g/dL [facility] Comment:Testing performed by : [address] [address] Albumin 3.8 3.5 - 5.0 g/dL [facility]AC SERNA Comment:Testing performed by : [facility], [address] [place] [address]., [address] Alk phos 69 40 - 130 Units/L [facility] SERNA Comment:Testing performed by : [address] [address] ALT 10 7 - 55 Units/L [facility] SERNA Comment:Testing performed by : [address] [address] AST 14 10 - 50 Units/L [facility]AC Comment:Testing performed by : [facility], [address] [place] [address]., [address] Blood 01/18/2025 9:42 AM CDT 01/18/2025 9:44 AM CDT us Nena Cano NP LAB BLOOD ORDERABLES Final Result [facility] [address] [facility] Department [place] [address] * IR Port Placement Chest > 5 Years (01/11/2025 12:57 PM CDT) Anatomical Region Laterality Modality Chest N/A Radio Fluoroscop y 01/11/2025 1:13 PM CDT Impressions 01/11/2025 1:13 PM CDT Successful chest wall port placement. PLAN: The catheter is ready for immediate use. Please note that a power injectable port was placed. When treatment is completed, removal can be scheduled by calling [facility] - [phone] [facility] - [phone] Electronically signed by: Linda Cardenas PA-C Narrative [...] was obtained. Prior to beginning the procedure, Port [place] Protocol was used to confirm the patient's [...] was obtained. Prior to beginning the procedure, [place] Protocol was used to confirm the patient's [...] completed, removal can be scheduled by calling [facility] - [phone] [facility] - [phone] Electronically signed by: Linda Cardenas PA-C Bianca [...] MCMULLEN LAB BLOOD ORDERABLES Final Result ISAAC [facility] Department [place] [address] * NM MPI SPECT (Rest and/or Stress) Multiple Studies (01/06/2025 9:00 AM HOME CARE MANAGER) Anatomical Region Laterality Modality Body N/A Nuclear Medicine Narrative 01/06/2025 4:05 PM HOME CARE MANAGER Patient Id: Marshall Olson is a 74 y.o. male. MR#: [id number] Study date: 01/06/2025 Report of the nuclear [...] Test for Myocardial Perfusion (01/06/2025 9:00 AM HOME CARE MANAGER) Anatomical Region Laterality Modality Nuclear Medicine Narrative 01/06/2025 7:32 PM HOME CARE MANAGER LEXISCAN NUCLEAR STRESS TEST CLINICAL INDICATION: Esophageal [...] Pulmonary Function Test - (01/05/2025 8:10 AM HOME CARE MANAGER) FVC PRE 3.48 3.18 - 5.54 L [facility] FEV1 PRE 2.66 2.29 - 4.12 L [facility] [id number] 76.42 60.94 - 87.48 % [facility] [id number]% PRE 2.40 0.95 - 4.33 L/s [facility] PEF PRE 6.09(A) 6.21 - 10.19 L/s [facility] DLCOc SB 12.03(A) 21.15 - 35.01 ml/(min*mm Hg) [facility] DLCO/VA PRE 2.24(A) 2.64 - 4.81 ml/(min*mm Hg*L) [facility] VA 5.36(A) 7.38 - 7.38 L [facility] TLC PRE 5.96(A) 6.38 - 8.68 L [facility] VC PRE 3.55 3.51 - 5.35 L [facility] IC PRE 3.16(A) 3.37 - 3.37 L [facility] FRC PL PRE 2.79(A) 2.87 - 4.84 L [facility] ERV PRE 0.38(A) 1.06 - 1.06 L [facility] RV PRE 2.41 2.12 - 3.47 L [facility] VTG 2.85 L [facility] RAW PRE 3.42(A) 3.06 - 3.06 cmH2O*s/L [facility] Anatomical Region Laterality Modality PFT 01/05/2025 7:35 AM HOME CARE MANAGER Impressions 01/08/2025 4:43 PM CDT 1. Spirometry is normal. 2. Lung volumes demonstrate restrictive ventilatory defect. 3. There is moderate diffusion impairment. Correlation is advised. Electronically signed by Jaspreet Balderas DO Pulmonary & Critical Care Narrative 01/08/2025 4:43 PM CDT PULMONARY FUNCTION TESTS Marshall R [place] 74 y.o. 01/08/2025 INTERPRETATION Please see technologist's [...] Result * (ABNORMAL) eGFR (01/04/2025 8:34 AM HOME CARE MANAGER) Pathologist [facility] eGFR 39(L) >=60 mL/min/1. 73 m2 Comment: [...] was last reviewed 2021. Testing performed by: [address] [address] Blood 01/04/2025 8:34 AM HOME CARE MANAGER 01/04/2025 8:37 AM HOME CARE MANAGER us Nena Cano NP LAB BLOOD ORDERABLES Final Result [facility] [address] [facility] Department [place] [address] * (ABNORMAL) Differential, auto (01/04/2025 8:34 AM HOME CARE MANAGER) Pathologist [facility] Neutrophil abs 3.0 1.5 - 6.5 K/cumm Comment:Testing performed by : [address] [address] Imm gran abs 0.0 0.0 - 0.1 K/cumm ISAAC SERNA Comment:Testing performed by : [address] [address] Lymphocyte abs 0.7(L) 0.8 - 3.3 K/cumm ISAAC Comment:Testing performed by : [address] [address] Monocyte abs 0.5 0.2 - 0.8 K/cumm CERADAM Comment:Testing performed by : [address] [address] Eosinophil abs 0.5 0.0 - 0.5 K/cumm ISAAC Comment:Testing performed by : [address], [place]., [address] Basophil abs 0.1 0.0 - 0.1 K/cumm ISAAC Comment:Testing performed by : [address] [address] Neutrophil pct 62.4 % CERADAM Comment: Interpretive Data Percent cell count reference ranges are not reported, since discordance with absolute values may lead to misinterpretation of CBC data. Current Interpretive Data was last revised on 2018. Testing performed by: [address] [address] Imm gran pct 0.2 % CERADAM Comment: Interpretive Data Percent cell count reference ranges are not reported, since discordance with absolute values may lead to misinterpretation of CBC data. Current Interpretive Data was last revised on 2018. Testing performed by: [address] [address] Lymphocyte pct 15.1 % CERADAM Comment: Interpretive Data Percent cell count reference ranges are not reported, since discordance with absolute values may lead to misinterpretation of CBC data. Current Interpretive Data was last revised on 2018. Testing performed by: [address] [address] Monocyte pct 11.1 % [facility]ER[facility]AM Comment: Interpretive Data Percent cell count reference ranges are not reported, since discordance with absolute values may lead to misinterpretation of CBC data. Current Interpretive Data was last revised on 2018. Testing performed by: [address] [address] Eosinophil pct 9.9 % CERNER Comment: Interpretive Data Percent cell count reference ranges are not reported, since discordance with absolute values may lead to misinterpretation of CBC data. Current Interpretive Data was last revised on 2018. Testing performed by: [address] [address] Basophil pct 1.3 % IS[facility]AC SERNA Comment: Interpretive Data Percent cell count reference ranges are not reported, since discordance with absolute values may lead to misinterpretation of CBC data. Current Interpretive Data was last revised on 2018. Testing performed by: [address] [address] Blood 01/04/2025 8:34 AM HOME CARE MANAGER 01/04/2025 8:37 AM HOME CARE MANAGER Nena Cano PROJECT MANAGEMENT ANALYST LAB BLOOD ORDERABLES Final Result Performing Organization Address City/[facility] Co de Phone Number [address] [place] [address] * Iron profile w/ IBC (01/04/2025 8:34 AM HOME CARE MANAGER) Pathologist [facility] Iron 67 50 - 150 mcg/dL Comment:Testing performed by : [address] [address] TIBC 250 250 - 400 mcg/dL ISAAC Comment:Testing performed by : [address] [address] Transferrin saturation 27 20 - 50 % ISAAC Comment:Testing performed by : [address] [address] Blood 01/04/2025 8:34 AM HOME CARE MANAGER 01/04/2025 10:17 AM HOME CARE MANAGER Nena Cano PROJECT MANAGEMENT ANALYST LAB BLOOD ORDERABLES Final Result Performing Organization Address City/[facility] Co de Phone Number [address] [place] [address] * (ABNORMAL) CBC with auto differential (01/04/2025 8:34 AM HOME CARE MANAGER) WBC 4.8 3.8 - 9.9 K/cumm Comment:Testing performed by : [address] [address] Hgb 9.1(L) 13.0 - 17.5 g/dL [facility]AC Comment:Testing performed by : [address] [address] Hct 30.5(L) 38.9 - 50.3 % [facility]AC Comment:Testing performed by : [address] [address] Plt 283 150 - 400 K/cumm ISAAC Comment:Testing performed by : [address] [address] MPV 8.5(L) 9.1 - 12.3 fL ISAAC Comment:Testing performed by : [address] [address] RBC 3.17(L) 4.30 - 5.80 M/cumm ISAAC Comment:Testing performed by : [address] [address] MCV 96.2 81.3 - 96.4 fL [facility]AC Comment:Testing performed by : [address] [address] MCH 28.7 27.1 - 33.3 pg IS[facility]AC Comment:Testing performed by : [address] [address] MCHC 29.8(L) 32.3 - 35.7 g/dL [facility] Comment:Testing performed by : [address], [address] RDW CV 16.1(H) 11.1 - 14.9 % IS[facility]AC Comment:Testing performed by : [address] [address] RDW SD 57.4(H) 35.7 - 48.1 fL [facility]AC Comment:Testing performed by : [address] [address] NRBC abs 0.00 0.00 - 0.01 K/cumm ISAAC Comment:Testing performed by : [address] [address] Blood 01/04/2025 8:34 AM HOME CARE MANAGER 01/04/2025 8:37 AM HOME CARE MANAGER Nena Cano PROJECT MANAGEMENT ANALYST LAB BLOOD ORDERABLES Final Result Performing Organization Address [facility] Co de Phone Number DAYANA[address] [address] * (ABNORMAL) Reticulocyte Count (01/04/2025 8:34 AM HOME CARE MANAGER) Retics, absolute 0.135(H) 0.020 - 0.087 M/cumm Comment:Testing performed by : [address] [address] Retics 4.3(H) 0.4 - 2.9 % [facility]AC Comment:Testing performed by : [address] [address] Reticulocyte Hgb 30.5 30.5 - 38.0 pg [facility]AC Comment:Testing performed by : [address] [address] Blood 01/04/2025 8:34 AM HOME CARE MANAGER 01/04/2025 8:37 AM HOME CARE MANAGER Nena Cano PROJECT MANAGEMENT ANALYST LAB BLOOD ORDERABLES Final Result Performing Organization Address [facility] de Phone Number [address] [address] * Ferritin (01/04/2025 8:34 AM HOME CARE MANAGER) Ferritin 76 30 - 400 ng/mL Comment:Testing performed by : [address] [address] Blood 01/04/2025 8:34 AM HOME CARE MANAGER 01/04/2025 10:17 AM HOME CARE MANAGER Nena Cano PROJECT MANAGEMENT ANALYST LAB BLOOD ORDERABLES Final Result [facility] [address] [facility] Department [place] [address] * (ABNORMAL) Comprehensive metabolic panel (01/04/2025 8:34 AM HOME CARE MANAGER) Sodium 141 135 - 145 mmol/L Comment:Testing performed by : [facility], [address] [place] [address]., [address] Potassium, pl 4.4 3.3 - 4.9 mmol/L ISAAC Comment:Testing performed by : [address], [place]., [address] Chloride 107 97 - 110 mmol/L [facility] Comment:Testing performed by : [address] [address] CO2 26 22 - 32 mmol/L [facility] Comment:Testing performed by : [address], [place]., [address] Anion gap 8 2 - 15 mmol/L [facility] Comment:Testing performed by : [address], [place]., [address] BUN 17 6 - 25 mg/dL [facility] Comment:Testing performed by : [address] [address] Creatinine 1.80(H) 0.80 - 1.30 mg/dL [facility] Comment:Testing performed by : [address] [address] Glucose 104 70 - 199 mg/dL ISAAC [...] was last revised 2022. Testing performed by: [address] [address] Calcium 9.1 8.5 - 10.3 mg/dL [facility] Comment:Testing performed by : [address] [address] Bilirubin, total 0.2 0.1 - 1.2 mg/dL [facility] Comment:Testing performed by : [address] [address] Protein, pl 6.4(L) 6.5 - 8.5 g/dL [facility] Comment:Testing performed by : [address] [address] Albumin 4.0 3.5 - 5.0 g/dL [facility] Comment:Testing performed by : [address], [address] Alk phos 66 40 - 130 Units/L [facility] Comment:Testing performed by : [address] [id number] ALT 10 7 - 55 Units/L ISAAC Comment:Testing performed by : [address] [address] AST 16 10 - 50 Units/L ISAAC Comment:Testing performed by : [address] [address] Blood 01/04/2025 8:34 AM HOME CARE MANAGER 01/04/2025 8:37 AM HOME CARE MANAGER Nena Cano NP LAB BLOOD ORDERABLES Final Result Performing Organization Address City/State/[facility] Co de Phone Number ISAAC [address] [facility] Department [place] [address] * (ABNORMAL) eGFR (12/27/2024 1:25 PM HOME CARE MANAGER) eGFR 34(L) >=60 mL/min/1. 73 m2 Comment: [...] was last reviewed 2021. Testing performed by: [address] [address] Blood 12/27/2024 1:25 PM HOME CARE MANAGER 12/27/2024 1:27 PM HOME CARE MANAGER Nena Cano NP LAB BLOOD ORDERABLES Final Result ISAAC SERNA [facility]0 [facility] Department [place] [address] * Differential, auto (12/27/2024 1:25 PM HOME CARE MANAGER) Neutrophil abs 3.7 1.5 - 6.5 K/cumm Comment:Testing performed by : [address] [address] Imm gran abs 0.0 0.0 - 0.1 K/cumm ISAAC Comment:Testing performed by : [address] [address] Lymphocyte abs 0.8 0.8 - 3.3 K/cumm ISAAC Comment:Testing performed by : [address] [address] Monocyte abs 0.6 0.2 - 0.8 K/cumm ISAAC Comment:Testing performed by : [address] [address] Eosinophil abs 0.4 0.0 - 0.5 K/cumm ISAAC Comment:Testing performed by : [address] [address] Basophil abs 0.1 0.0 - 0.1 K/cumm ISAAC Comment:Testing performed by : [address] [address] Neutrophil pct 66.1 % ISAAC Comment: Interpretive Data Percent cell count reference ranges are not reported, since discordance with absolute values may lead to misinterpretation of CBC data. Current Interpretive Data was last revised on 2018. Testing performed by: [address] [address] Imm gran pct 0.5 % ISAAC Comment: Interpretive Data Percent cell count reference ranges are not reported, since discordance with absolute values may lead to misinterpretation of CBC data. Current Interpretive Data was last revised on 2018. Testing performed by: [address] [address] Lymphocyte pct 14.5 % [facility] Comment: Interpretive Data Percent cell count reference ranges are not reported, since discordance with absolute values may lead to misinterpretation of CBC data. Current Interpretive Data was last revised on 2018. Testing performed by: [address] [address] Monocyte pct 10.6 % [facility] Comment: Interpretive Data Percent cell count reference ranges are not reported, since discordance with absolute values may lead to misinterpretation of CBC data. Current Interpretive Data was last revised on 2018. Testing performed by: [address] [address] Eosinophil pct 7.4 % ISAAC Comment: Interpretive Data Percent cell count reference ranges are not reported, since discordance with absolute values may lead to misinterpretation of CBC data. Current Interpretive Data was last revised on 2018. Testing performed by: [address] [address] Basophil pct 0.9 % [facility] Comment: Interpretive Data Percent cell count reference ranges are not reported, since discordance with absolute values may lead to misinterpretation of CBC data. Current Interpretive Data was last revised on 2018. Testing performed by: [address] [address] Blood 12/27/2024 1:25 PM HOME CARE MANAGER 12/27/2024 1:27 PM HOME CARE MANAGER Nena Cano PROJECT MANAGEMENT ANALYST LAB BLOOD ORDERABLES Final Result Performing Organization Address [facility] de Phone Number ISAAC [address] [place] [address] * (ABNORMAL) Iron profile w/ IBC (12/27/2024 1:25 PM HOME CARE MANAGER) [facility] Iron 72 50 - 150 mcg/dL Comment:Testing performed by : [address] [address] TIBC 245(L) 250 - 400 mcg/dL ISAAC SERNA Comment:Testing performed by : [address] [address] Transferrin saturation 29 20 - 50 % ISAAC SERNA Comment:Testing performed by : [address] [address] Blood 12/27/2024 1:25 PM HOME CARE MANAGER 12/27/2024 1:51 PM HOME CARE MANAGER Nena Cano PROJECT MANAGEMENT ANALYST LAB BLOOD ORDERABLES Final Result Performing Organization Address [facility] de Phone Number ISAAC [address] [place] [address] * (ABNORMAL) CBC with auto differential (12/27/2024 1:25 PM HOME CARE MANAGER) [facility] WBC 5.7 3.8 - 9.9 K/cumm Comment:Testing performed by : [address] [address] Hgb 8.8(L) 13.0 - 17.5 g/dL ISAAC SERNA Comment:Testing performed by : [address] [address] Hct 29.9(L) 38.9 - 50.3 % ISAAC SERNA Comment:Testing performed by : [address] [address] Plt 292 150 - 400 K/cumm ISAAC SERNA Comment:Testing performed by : [address] [address] MPV 8.5(L) 9.1 - 12.3 fL ISAAC Comment:Testing performed by : [address] [address] RBC 3.03(L) 4.30 - 5.80 M/cumm ISAAC SERNA Comment:Testing performed by : [address] [address] MCV 98.7(H) 81.3 - 96.4 fL ISAAC Comment:Testing performed by : [address] [address] MCH 29.0 27.1 - 33.3 pg ISAAC Comment:Testing performed by : [address] [address] MCHC 29.4(L) 32.3 - 35.7 g/dL ISAAC Comment:Testing performed by : [address] [address] RDW CV 16.6(H) 11.1 - 14.9 % ISAAC Comment:Testing performed by : [address] [address] RDW SD 59.5(H) 35.7 - 48.1 fL ISAAC Comment:Testing performed by : [address] [address] NRBC abs 0.00 0.00 - 0.01 K/cumm ISAAC Comment:Testing performed by : [address] [address] Blood 12/27/2024 1:25 PM HOME CARE MANAGER 12/27/2024 1:27 PM HOME CARE MANAGER Nena Cano NP LAB BLOOD ORDERABLES Final Result ISAAC SERNA 8923 [facility] Department [place] [address] * (ABNORMAL) Reticulocyte Count (12/27/2024 1:25 PM HOME CARE MANAGER) Retics, absolute 0.149(H) 0.020 - 0.087 M/cumm Comment:Testing performed by : [address] [address] Retics 4.9(H) 0.4 - 2.9 % ISAAC Comment:Testing performed by : [address] [address] Reticulocyte Hgb 28.7(L) 30.5 - 38.0 pg ISAAC Comment:Testing performed by : [address] [address] Blood 12/27/2024 1:25 PM HOME CARE MANAGER 12/27/2024 1:27 PM HOME CARE MANAGER Nena Cano PROJECT MANAGEMENT ANALYST LAB BLOOD ORDERABLES Final Result Performing Organization Address [facility] Co de Phone Number [address] [place] [address] * Ferritin (12/27/2024 1:25 PM HOME CARE MANAGER) [facility] Ferritin 171 30 - 400 ng/mL Comment:Testing performed by : [address] [address] Blood 12/27/2024 1:25 PM HOME CARE MANAGER 12/27/2024 1:51 PM HOME CARE MANAGER Nena Cano LAB BLOOD ORDERABLES Final Result Performing Organization Address City/[facility]/ZIP Co de Phone Number [address] [place] [address] * (ABNORMAL) Comprehensive metabolic panel (12/27/2024 1:25 PM HOME CARE MANAGER) [facility] Sodium 137 135 - 145 mmol/L Comment:Testing performed by : [address] [address] Potassium, pl 5.1(H) 3.3 - 4.9 mmol/L ISAAC Comment:Testing performed by : [address] [address] Chloride 104 97 - 110 mmol/L ISAAC Comment:Testing performed by : [address], [place]., [address] CO2 25 22 - 32 mmol/L ISAAC Comment:Testing performed by : [address], [place]., [address] Anion gap 8 2 - 15 mmol/L ISAAC Comment:Testing performed by : [address], [place]., [address] BUN 15 6 - 25 mg/dL ISAAC Comment:Testing performed by : [address], [place]., [address] Creatinine 2.00(H) 0.80 - 1.30 mg/dL ISAAC Comment:Testing performed by : [address], [place]., [address] Glucose 110 70 - 199 mg/dL ISAAC [...] was last revised 2022. Testing performed by: [address] [address] Calcium 8.9 8.5 - 10.3 mg/dL ISAAC Comment:Testing performed by : [address] [address] Bilirubin, total 0.2 0.1 - 1.2 mg/dL ISAAC Comment:Testing performed by : [address] [address] Protein, pl 6.5 6.5 - 8.5 g/dL ISAAC Comment:Testing performed by : [address], [place]., [address] Albumin 3.9 3.5 - 5.0 g/dL ISAAC SERNA Comment:Testing performed by : [facility], [address] [place] [address]., [address] Alk phos 66 40 - 130 Units/L ISAAC SERNA Comment:Testing performed by : [address] [address] ALT 14 7 - 55 Units/L ISAAC SERNA Comment:Testing performed by : [address] [address] AST 21 10 - 50 Units/L ISAAC Comment:Testing performed by : [address] [address] Blood 12/27/2024 1:25 PM HOME CARE MANAGER 12/27/2024 1:27 PM HOME CARE MANAGER Nena Cano NP LAB BLOOD ORDERABLES Final Result Performing Organization Address City/State/[facility] Co de Phone Number ISAAC [address] [facility] Department [place] [address] * PET/CT FDG Skull to Thigh (12/16/2024 9:43 AM HOME CARE MANAGER) Anatomical Region Laterality Modality N/A Positron Emissio n Tomography (PET) 12/16/2024 9:48 AM HOME CARE MANAGER Narrative 12/16/2024 10:04 AM HOME CARE MANAGER EXAM DESCRIPTION: PET/CT FDG SKULL TO THIGH [...] Dario Hilario M.D. CH: RED Report ID: [id number] Reading Location: [id number] Procedure Note Dario Hilario Jr., MD - [...] Dario Hilario M.D. CH: RED Report ID: [id number] Reading Location: [id number] us Charlie Juarez MD IMG PET PROCEDURES Final Result * POCT glucose (12/16/2024 7:51 AM HOME CARE MANAGER) Glucose, POC 100 70 - 199 mg/dL Comment:Testing performed by : [address] [address] Blood 12/16/2024 7:51 AM HOME CARE MANAGER 12/16/2024 7:51 AM HOME CARE MANAGER us Charlie Juarez MD LAB POCT ORDERABLES - DEVICE Fin al Result ISAAC 2414 [facility] Department [place] [address] * (ABNORMAL) eGFR (12/14/2024 9:08 AM HOME CARE MANAGER) eGFR 42(L) >=60 mL/min/1. 73 m2 Comment: [...] was last reviewed 2021. Testing performed by: [address] [address] Blood 12/14/2024 9:08 AM HOME CARE MANAGER 12/14/2024 9:09 AM HOME CARE MANAGER us Nena Cano PROJECT MANAGEMENT ANALYST LAB BLOOD ORDERABLES Final Result ISAAC 6842 [facility] Department [place] [address] * (ABNORMAL) Differential, auto (12/14/2024 9:08 AM HOME CARE MANAGER) Neutrophil abs 2.8 1.5 - 6.5 K/cumm Comment:Testing performed by : [address] [address] Imm gran abs 0.0 0.0 - 0.1 K/cumm ISAAC Comment:Testing performed by : [address] [address] Lymphocyte abs 0.7(L) 0.8 - 3.3 K/cumm ISAAC Comment:Testing performed by : [address] [address] Monocyte abs 0.6 0.2 - 0.8 K/cumm ISAAC Comment:Testing performed by : [address] [address] Eosinophil abs 0.4 0.0 - 0.5 K/cumm ISAAC Comment:Testing performed by : [address] [address] Basophil abs 0.0 0.0 - 0.1 K/cumm ISAAC Comment:Testing performed by : [address] [address] Neutrophil pct 60.8 % ISAAC Comment: Interpretive Data Percent cell count reference ranges are not reported, since discordance with absolute values may lead to misinterpretation of CBC data. Current Interpretive Data was last revised on 2018. Testing performed by: [address] [address] Imm gran pct 0.6 % ISAAC Comment: Interpretive Data Percent cell count reference ranges are not reported, since discordance with absolute values may lead to misinterpretation of CBC data. Current Interpretive Data was last revised on 2018. Testing performed by: [address] [address] Lymphocyte pct 15.4 % [facility] Comment: Interpretive Data Percent cell count reference ranges are not reported, since discordance with absolute values may lead to misinterpretation of CBC data. Current Interpretive Data was last revised on 2018. Testing performed by: [address] [address] Monocyte pct 13.0 % [facility] Comment: Interpretive Data Percent cell count reference ranges are not reported, since discordance with absolute values may lead to misinterpretation of CBC data. Current Interpretive Data was last revised on 2018. Testing performed by: [address] [address] Eosinophil pct 9.3 % [facility] Comment: Interpretive Data Percent cell count reference ranges are not reported, since discordance with absolute values may lead to misinterpretation of CBC data. Current Interpretive Data was last revised on 2018. Testing performed by: [address] [address] Basophil pct 0.9 % [facility] Comment: Interpretive Data Percent cell count reference ranges are not reported, since discordance with absolute values may lead to misinterpretation of CBC data. Current Interpretive Data was last revised on 2018. Testing performed by: [address] [address] Blood 12/14/2024 9:08 AM HOME CARE MANAGER 12/14/2024 9:09 AM HOME CARE MANAGER us Nena Cano PROJECT MANAGEMENT ANALYST LAB BLOOD ORDERABLES Final Result [facility] [address] [facility] Department [place] [address] * (ABNORMAL) Iron profile w/ IBC (12/14/2024 9:08 AM HOME CARE MANAGER) Pathologist [facility] Iron 225(H) 50 - 150 mcg/dL Comment:Testing performed by : [address] [address] TIBC <242(L) 250 - 400 mcg/dL ISAAC Comment:Testing performed by : [address] [address] Transferrin saturation >93(H) 20 - 50 % ISAAC Comment:Testing performed by : [address] [address] Blood 12/14/2024 9:08 AM HOME CARE MANAGER 12/14/2024 9:50 AM HOME CARE MANAGER Nena Cano PROJECT MANAGEMENT ANALYST LAB BLOOD ORDERABLES Final Result [facility] [address] [facility] Department [place] [address] * (ABNORMAL) CBC with auto differential (12/14/2024 9:08 AM HOME CARE MANAGER) WBC 4.6 3.8 - 9.9 K/cumm Comment:Testing performed by : [address] [address] Hgb 8.7(L) 13.0 - 17.5 g/dL ISAAC Comment:Testing performed by : [address] [address] Hct 29.9(L) 38.9 - 50.3 % ISAAC Comment:Testing performed by : [address] [address] Plt 278 150 - 400 K/cumm ISAAC Comment:Testing performed by : [address] [address] MPV 8.6(L) 9.1 - 12.3 fL ISAAC Comment:Testing performed by : [address] [address] RBC 3.02(L) 4.30 - 5.80 M/cumm ISAAC Comment:Testing performed by : [address] [address] MCV 99.0(H) 81.3 - 96.4 fL ISAAC Comment:Testing performed by : [address] [address] MCH 28.8 27.1 - 33.3 pg ISAAC SERNA Comment:Testing performed by : [address] [address] MCHC 29.1(L) 32.3 - 35.7 g/dL ISAAC SERNA Comment:Testing performed by : [address] [address] RDW CV 17.8(H) 11.1 - 14.9 % ISAAC SERNA Comment:Testing performed by : [address] [address] RDW SD 62.0(H) 35.7 - 48.1 fL ISAAC SERNA Comment:Testing performed by : [address] [address] NRBC abs 0.00 0.00 - 0.01 K/cumm ISAAC SERNA Comment:Testing performed by : [address] [address] Blood 12/14/2024 9:08 AM HOME CARE MANAGER 12/14/2024 9:09 AM HOME CARE MANAGER us Nena Cano PROJECT MANAGEMENT ANALYST LAB BLOOD ORDERABLES Final Result ISAAC 46[address] [facility] Department of Laboratories [place], [place] [address] * (ABNORMAL) Reticulocyte Count (12/14/2024 9:08 AM HOME CARE MANAGER) Retics, absolute 0.206(H) 0.020 - 0.087 M/cumm Comment:Testing performed by : [address] [address] Retics 6.8(H) 0.4 - 2.9 % ISAAC SERNA Comment:Testing performed by : [address] [address] Reticulocyte Hgb 29.9(L) 30.5 - 38.0 pg ISAAC SERNA Comment:Testing performed by : [address] [address] Blood 12/14/2024 9:08 AM HOME CARE MANAGER 12/14/2024 9:09 AM HOME CARE MANAGER Nena Cano PROJECT MANAGEMENT ANALYST LAB BLOOD ORDERABLES Final Result Performing Organization Address City/[facility] Co de Phone Number ISAAC [address] [address] * Ferritin (12/14/2024 9:08 AM HOME CARE MANAGER) Pathologist [facility] Ferritin 201 30 - 400 ng/mL Comment:Testing performed by : [address] [address] Blood 12/14/2024 9:0 8 AM HOME CARE MANAGER 12/14/2024 9:50 AM HOME CARE MANAGER Nena Cano PROJECT MANAGEMENT ANALYST LAB BLOOD ORDERABLES Final Result Performing Organization Address [facility] de Phone Number ISAAC [address] [address] * (ABNORMAL) Comprehensive metabolic panel (12/14/2024 9:08 AM HOME CARE MANAGER) Pathologist [facility] Sodium 142 135 - 145 mmol/L Comment:Testing performed by : [address] [address] Potassium, pl 4.5 3.3 - 4.9 mmol/L ISAAC Comment:Testing performed by : [address] [address] Chloride 109 97 - 110 mmol/L ISAAC Comment:Testing performed by : [address] [address] CO2 23 22 - 32 mmol/L ISAAC Comment:Testing performed by : [address] [address] Anion gap 10 2 - 15 mmol/L ISAAC Comment:Testing performed by : [address] [address] BUN 16 6 - 25 mg/dL ISAAC Comment:Testing performed by : [address] [address] Creatinine 1.70(H) 0.80 - 1.30 mg/dL ISAAC Comment:Testing performed by : [address] [address] Glucose 95 70 - 199 mg/dL ISAAC [...] was last revised 2022. Testing performed by: [address] [address] Calcium 9.0 8.5 - 10.3 mg/dL ISAAC Comment:Testing performed by : [address] [address] Bilirubin, total 0.2 0.1 - 1.2 mg/dL [facility] Comment:Testing performed by : [address] [address] Protein, pl 6.2(L) 6.5 - 8.5 g/dL ISAAC Comment:Testing performed by : [address] [address] Albumin 3.6 3.5 - 5.0 g/dL [facility] Comment:Testing performed by : [address] [address] Alk phos 60 40 - 130 Units/L ISAAC Comment:Testing performed by : [address] [address] ALT 19 7 - 55 Units/L ISAAC Comment:Testing performed by : [address] [address] AST 29 10 - 50 Units/L ISAAC Comment:Testing performed by : [address] [address] Blood 12/14/2024 9:08 AM HOME CARE MANAGER 12/14/2024 9:09 AM HOME CARE MANAGER Nena Cano AGNIESZKA LAB BLOOD ORDERABLES Final Result ISAAC MH [address] [facility] Department [place] [address] * CT Chest Abdomen Pelvis W Contrast (12/13/2024 7:09 AM HOME CARE MANAGER) Anatomical Region Laterality Modality Body N/A Computed Tomogra phy 12/13/2024 7:26 AM HOME CARE MANAGER Impressions 12/13/2024 7:26 AM HOME CARE MANAGER 1. Nondistended esophagus. No discrete esophageal lesion identified to correspond to known malignancy. 2. No evidence of metastatic disease in the chest, abdomen, and pelvis. Electronically signed by: Courtney Johnson M.D. Narrative 12/13/2024 7:26 AM HOME CARE MANAGER EXAMINATION: Computed tomography of the chest, abdomen [...] Res ult * Colonoscopy (11/17/2024 9:34 AM HOME CARE MANAGER) Anatomical Region Laterality Modality Other Narrative Procedure Note Lucio Rosas MD - 11/17/2024 9:34 AM CST [facility] GI ENDOSCOPY Patient Name: Marshall Olson Procedure Date: 11/17/2024 9:34 AM Date of : 1950 Admit Type: Outpatient Age: 74 Gender: Male Attending MD: Lucio Rosas M.D. Room: [facility] ENDOSCOPY ROOM 03 Note Status: Finalized [...] The scope was passed under direct vision.The [id number] colonoscope was introduced through theanus and advanced to the cecum, identified byappendiceal orifice and ileocecal valve. The scope was passed under direct vision. The [id number] colonoscope was introduced through the and advanced [...] On: 11/17/2024 9:34 AM Recognized by the [employer] for promoting quality in endoscopy Lucio Rosas MD ENDOSCOPY PROCEDURES Final Resul t from Last 3 Months or Most Recently Relevant to Health Maintenance Insurance [facility] MEDICARE ADVANTAGE MEDICARE [employer] MEDICARE ADVANTAGE MEDICARE Advance Directives For more information, please contact: [phone] * Full Code (Latest Code Status on File) Date Activated Date Inactivated Comments 01/11/2025 10:34 AM 01/12/2025 5:08 AM * Full Code Date Activated Date Inactivated Comments 12/13/2024 8:18 AM 12/13/2024 5:22 PM Care Teams Account Development Manager Relationship Specialty Start Date End Date Jas Alcala MD [address] [place] [address] PCP - General Internal Medicine 01/04/25 Lucio Rosas MD [address] [address] Consulting Physician Gastroenterology 11/28/24 Bianca Hunter MD [address] [facility] [address] [place] [address] Medical Oncologist/Scale Reclamation Tender Medical Oncology 12/07/24 Hero Pinedo MD [facility] [address] Radiation Oncologist Radiation Oncology 12/28/24 Lon Tomas MD [address] [place] [address] Consulting Physician Urology 01/04/25 Jaycee Teresa MD [address] [place] [address] Consulting Physician Cardiology 01/09/25
--- OUTSIDE RECORDS SUMMARY | 2025-03-13 11:23 | XMS_ITS | Clinical Summary ---
Author Organization [facility] Address [address] [place] [address] Care Team Providers Care Lead Loader Name Role Phone Jas Alcala MD Primary Care Provider [phone] Allergies Active Allergy Reactions Criticality Noted Date [...] (06/17/2022): Added automatically from request for surgery [id number] Family History Medical History Relation Comments Cancer [...] patient's age to complete this topic Insurance Care Teams Lead Loader Relationship Specialty Start Date End Date Jas Alcala MD PCP - General INTERNAL MEDICINE 02/11/22
--- OUTSIDE RECORDS SUMMARY | 2025-03-13 11:23 | XMS_ITS | Data Portability ---
[facility] Organization [facility] Address [address] [place] [address] Care Team Providers Care Bug Trimmer Name Role Phone CLEVE MARIEE Urologist KOKI HAMILTON [facility] Representative BUBBA ALCALA Primary Care Provider Assessment Encounter Date Assessment Date Assessment [...] any signs or symptoms of severe anemia [email or web address] Not available 01/04/2024 23:14:55 04/05/2024 04/05/2024 we will continue current therapy blood work is being done currently for his anemia by Hematology cardiovascular-wi se does appear to be stable does have a history of prostate into issues I believe prostate cancer as well and he is following up with that service he will follow up with me in 3 months [email or web address] Not available 05/01/2024 22:14:08 07/12/2024 07/12/2024 flu shot continu e current therapy all questions have been answered follow up in 4 months [email or web address] Not available 07/30/2024 21:44:40 12/08/2024 12/08/2024 GI [...] has been cleared to have the endoscopies [email or web address] Not available 12/08/2024 21:25:29 Plan of Treatment Reminders Order Date Submit Date Provider Last Modified By Organization Details Last Modified Time Details Appointments ANY 15 2024 01:15P Venkat Alcala MD Not available Not available Not available Lab PT/INR 2023 024 MERVAT Ga, 2022 Keren Gonzalez, [address], [place], [address], 12/31/2023 17:10:49 CBC w/ auto diff 2023 024 MERVAT Ga, 2022 Keren Gonzalez, [address], [place], [address], 12/31/2023 17:10:49 lipid panel, serum 2023 024 MERVAT Ga, 2022 Keren Gonzalez, [address], [place], [address], 12/31/2023 17:10:47 CMP, serum or plasma 2023 024 MERVAT Ga, 2022 Keren Gonzalez, [address], [place], [address], 12/31/2023 17:10:48 Referral None recorded . Procedures [...] 9 Not Available [facility] [address] [place], [address], 12/31/2023 17:10:47 12/28/19 24 12/29/2023 LIPID PANEL triglyceride s 141 mg/dL 0-149 Not Available [facility] [address] [place], [address], 12/31/2023 17:10:47 12/28/19 24 12/29/2023 LIPID PANEL HDL cholesterol 57 mg/dL >39 Not Available [facility] [address] [place], [address], 12/31/2023 17:10:47 12/28/19 24 12/29/2023 LIPID PANEL VLDL cholesterol will 24 mg/dL 5-40 Not Available [facility] [address] [place], [address], 12/31/2023 17:10:47 12/28/19 24 12/29/2023 LIPID PANEL LDL chol calc (nih) 69 mg/dL 0-99 Not Available [facility] [address] [place], [address], 12/31/2023 17:10:47 12/28/19 24 12/29/2023 COMP. METAB OLIC PANEL (14) glucose 87 mg/dL 70-99 Not Available [facility] [address] [place], [address], 12/31/2023 17:10:48 12/28/19 24 12/29/2023 COMP. METAB OLIC PANEL (14) BUN 16 mg/dL 8-27 Not Available [facility] [address] [place], [address], 12/31/2023 17:10:48 12/28/19 24 12/29/2023 COMP. METAB OLIC PANEL (14) creatinine 1.71 mg/dL 0.76-1 .27 above high normal Not Available [facility] [address] [place], [address], 12/31/2023 17:10:48 12/28/19 24 12/29/2023 COMP. METAB OLIC PANEL (14) eGFR 42 mL/mi n/1.7 3 >59 below low normal Not Available [facility] [address] [place], [address], 12/31/2023 17:10:48 12/28/19 24 12/29/2023 COMP. METAB OLIC PANEL (14) BUN/creatini ne ratio 9 10-24 below low normal Not Available [facility] [address] [place], [address], 12/31/2023 17:10:48 12/28/19 24 12/29/2023 COMP. METAB OLIC PANEL (14) sodium 137 mmol/ L 134-14 4 Not Available [facility] [address] [place], [address], 12/31/2023 17:10:48 12/28/19 24 12/29/2023 COMP. METAB OLIC PANEL (14) potassium 5.0 mmol/ L 3.5-5. 2 Not Available [facility] [address] [place], [address], 12/31/2023 17:10:48 12/28/19 24 12/29/2023 COMP. METAB OLIC PANEL (14) chloride 102 mmol/ L 96-106 Not Available [facility] [address] [place], [address], 12/31/2023 17:10:48 12/28/19 24 12/29/2023 COMP. METAB OLIC PANEL (14) carbon dioxide, total 24 mmol/ L Not Available [facility] [address] [place], [address], 12/31/2023 17:10:48 12/28/19 24 12/29/2023 COMP. METAB OLIC PANEL (14) calcium 9.5 mg/dL 8.6-10 .2 Not Available [facility] [address] [place], [address], 12/31/2023 17:10:48 12/28/19 24 12/29/2023 COMP. METAB OLIC PANEL (14) protein, total 7.0 g/dL 6.0-8. 5 Not Available [facility] [address] [place], [address], 12/31/2023 17:10:48 12/28/19 24 12/29/2023 COMP. METAB OLIC PANEL (14) albumin 4.3 g/dL 3.8-4. 8 Not Available [facility] [address] [place], [address], 12/31/2023 17:10:48 12/28/19 24 12/29/2023 COMP. METAB OLIC PANEL (14) globulin, total 2.7 g/dL 1.5-4. 5 Not Available [facility] [address] [place], [address], 12/31/2023 17:10:48 12/28/19 24 12/29/2023 COMP. METAB OLIC PANEL (14) A/G ratio 1.6 1.2-2. 2 Not Available [facility] [address] [place], [address], 12/31/2023 17:10:48 12/28/19 24 12/29/2023 COMP. METAB OLIC PANEL (14) bilirubin, total 0.3 mg/dL 0.0-1. 2 Not Available [facility] [address] [place], [address], 12/31/2023 17:10:48 12/28/19 24 12/29/2023 COMP. METAB OLIC PANEL (14) alkaline phosphatase 70 IU/L 44-121 Not Available [facility] [address] [place], [address], 12/31/2023 17:10:48 12/28/19 24 12/29/2023 COMP. METAB OLIC PANEL (14) AST (SGOT) 24 IU/L 0-40 Not Available [facility] [address] [place], [address], 12/31/2023 17:10:48 12/28/19 24 12/29/2023 COMP. METAB OLIC PANEL (14) ALT (SGPT) 16 IU/L 0-44 Not Available [facility] [address] [place], [address], 12/31/2023 17:10:48 12/28/19 24 12/31/2023 PROTH ROMBI N TIME, INR prothrombin time 18.9 sec above high normal Refer ence Range : 18 years and older : 9.1 - 12.0 Not Available [facility] [address] [place], [address], 12/31/2023 17:10:49 12/28/19 24 12/31/2023 PROTH ROMBI N TIME, INR INR 1.9 ratio above high normal Refer ence Range : >1 month : 0.9 - 1.2 Not Available [facility] [address] [place], [address], 12/31/2023 17:10:49 12/28/19 24 12/29/2023 CBC WITH DIFFE RENTI AL/PL ATELE T WBC 6.3 x10e3 /uL 3.4-10 .8 Not Available [facility] [address] [place], [address], 12/31/2023 17:10:49 12/28/19 24 12/29/2023 CBC WITH DIFFE RENTI AL/PL ATELE T RBC 4.09 x10e6 /uL 4.14-5 .80 below low normal Not Available [facility] [address] [place], [address], 12/31/2023 17:10:49 12/28/19 24 12/29/2023 CBC WITH DIFFE RENTI AL/PL ATELE T hemoglobin 11.7 g/dL 13.0-1 7.7 below low normal Not Available [facility] [address] [place], [address], 12/31/2023 17:10:49 12/28/19 24 12/29/2023 CBC WITH DIFFE RENTI AL/PL ATELE T hematocrit 36.6 % 37.5-5 1.0 below low normal Not Available [facility] [address] [place], [address], 12/31/2023 17:10:49 12/28/19 24 12/29/2023 CBC WITH DIFFE RENTI AL/PL ATELE T MCV 90 fL 79-97 Not Available [facility] [address] [place], [address], 12/31/2023 17:10:49 12/28/19 24 12/29/2023 CBC WITH DIFFE RENTI AL/PL ATELE T MCH 28.6 pg 26.6-3 3.0 Not Available [facility] [address] [place], [address], 12/31/2023 17:10:49 12/28/19 12/29/2023 CBC WITH DIFFE RENTI AL/PL ATELE T MCHC 32.0 g/dL 31.5-3 5.7 Not Available [facility] [address] [place], [address], 12/31/2023 17:10:49 12/28/19 24 12/29/2023 CBC WITH DIFFE RENTI AL/PL ATELE T RDW 14.9 % 11.6-1 5.4 Not Available [facility] [address] [place], [address], 12/31/2023 17:10:49 12/28/19 24 12/29/2023 CBC WITH DIFFE RENTI AL/PL ATELE T platelets 267 x10e3 /uL 150-45 0 Not Available [facility] [address] [place], [address], 12/31/2023 17:10:49 12/28/19 24 12/29/2023 CBC WITH DIFFE RENTI AL/PL ATELE T neutrophils 43 % notest ab. Not Available [facility] [address] [place], [address], 12/31/2023 17:10:49 12/28/19 24 12/29/2023 CBC WITH DIFFE RENTI AL/PL ATELE T lymphs 24 % notest ab. Not Available [facility] [address] [place], [address], 12/31/2023 17:10:49 12/28/19 24 12/29/2023 CBC WITH DIFFE RENTI AL/PL ATELE T monocytes 12 % notest ab. Not Available [facility] [address] [place], [address], 12/31/2023 17:10:49 12/28/19 24 12/29/2023 CBC WITH DIFFE RENTI AL/PL ATELE T eos 19 % notest ab. Not Available [facility] [address] [place], [address], 12/31/2023 17:10:49 12/28/19 24 12/29/2023 CBC WITH DIFFE RENTI AL/PL ATELE T basos 1 % notest ab. Not Available [facility] [address] [place], [address], 12/31/2023 17:10:49 12/28/19 24 12/29/2023 CBC WITH DIFFE RENTI AL/PL ATELE T neutrophils (absolute) 2.8 x10e3 /uL 1.4-7. 0 Not Available [facility] [address] [place], [address], 12/31/2023 17:10:49 12/28/19 24 12/29/2023 CBC WITH DIFFE RENTI AL/PL ATELE T lymphs (absolute) 1.5 x10e3 /uL 0.7-3. 1 Not Available [facility] [address] [place], [address], 12/31/2023 17:10:49 12/28/19 24 12/29/2023 CBC WITH DIFFE RENTI AL/PL ATELE T monocytes(ab solute) 0.7 x10e3 /uL 0.1-0. 9 Not Available [facility] [address] [place], [address], 12/31/2023 17:10:49 12/28/19 24 12/29/2023 CBC WITH DIFFE RENTI AL/PL ATELE T eos (absolute) 1.2 x10e3 /uL 0.0-0. 4 above high normal Not Available [facility] [address] [place], [address], 12/31/2023 17:10:49 12/28/19 24 12/29/2023 CBC WITH DIFFE RENTI AL/PL ATELE T baso (absolute) 0.1 x10e3 /uL 0.0-0. 2 Not Available [facility] [address] [place], [address], 12/31/2023 17:10:49 12/28/19 24 12/29/2023 CBC WITH DIFFE RENTI AL/PL ATELE T immature granulocytes 1 % notest ab. Not Available [facility] [address] [place], [address], 12/31/2023 17:10:49 12/28/19 24 12/29/2023 CBC WITH DIFFE RENTI AL/PL ATELE T immature grans (abs) 0.1 x10e3 /uL 0.0-0. 1 Not Available [facility] [address] [place], [address], 12/31/2023 17:10:49 01/20/20 24 01/22/2024 Bacte tiffany ident ified in Urine by Cultu re specimen source identified URINE CLEAN CATCH SPEC DESCR IPTIO N URINE CLEAN CATCH 01/19 9:25 AM CDT [facility] Not Available Not Available 12/27/2024 22:45:46 01/20/20 24 01/22/2024 Bacte tiffany ident ified in Urine by Cultu re service comment NO SPECIA L REQUES T SPECI AL REQUE STS NO SPECI AL REQUE ST 01/19 9:25 AM CDT [facility] Not Available Not Available 12/27/2024 [...] ERIS PERFO RMED. 01/21 7:34 AM CDT [facility] Not Available Not Available 12/27/2024 22:45:46 01/20/20 24 01/20/2024 Urina lysis dipst ick W Refle x Micro scopi c panel - Urine collection method - specimen URINE CLEAN CATCH Speci men Type URINE CLEAN CATCH 01/19 9:25 AM CDT [facility] Not Available Not Available 12/27/2024 22:45:46 01/20/20 24 01/20/2024 Urina lysis dipst ick W Refle x Micro scopi c panel - Urine color of urine LIGHT YELLOW COLOR (U) LIGHT YELLO W 01/19 9:50 AM CDT [facility] Not Available Not Available 12/27/2024 22:45:46 01/20/20 24 01/20/2024 Urina lysis dipst ick W Refle x Micro scopi c panel - Urine clarity of urine CLEAR TRANS PAREN CY CLEAR 01/19 9:50 AM CDT [facility] Not Available Not Available 12/27/2024 22:45:46 01/20/20 24 01/20/2024 Urina lysis dipst ick W Refle x Micro scopi c panel - Urine specific gravity of urine 1.019 low: 1.001h igh: 1.03 SPECI FIC GRAVI TY (U) 1.019 1.001 - 1.030 01/19 9:50 AM CDT [facility] Not Available Not Available 12/27/2024 22:45:46 01/20/20 24 01/20/2024 Urina lysis dipst ick W Refle x Micro scopi c panel - Urine pH of urine 6.5 low: 5high: 9 U PH 6.5 5.0 - 9.0 01/19 9:50 AM CDT [facility] Not Available Not Available 12/27/2024 22:45:46 01/20/20 24 01/20/2024 Urina lysis dipst ick W Refle x Micro scopi c panel - Urine leukocytes [#/volume] in urine by test strip NEGATI VE text: negati ve LEUKO CYTES (U) NEGAT SHYAM NEGAT SHYAM 01/19 9:50 AM CDT [facility] Not Available Not Available 12/27/2024 22:45:46 01/20/20 24 01/20/2024 Urina lysis dipst ick W Refle x Micro scopi c panel - Urine nitrite [presence] in urine NEGATI VE text: negati ve NITRI JEREMY NEGAT SHYAM NEGAT SHYAM 01/19 9:50 AM T [facility] Not Available Not Available 12/27/2024 22:45:46 01/20/20 24 01/20/2024 Urina lysis dipst ick W Refle x Micro scopi c panel - Urine protein [mass/volume ] in urine by test strip NEGATI VE text: <30 mg/dL PROTE IN RANDO M (U) NEGAT SHYAM <30 MG/DL 01/19 9:50 AM T [facility] Not Available Not Available 12/27/2024 22:45:46 01/20/20 24 01/20/2024 Urina lysis dipst ick W Refle x Micro scopi c panel - Urine glucose [mass/volume ] in urine NORMAL text: normal mg/dL GLUCO SE (U) PRISCA L PRISCA L MG/DL 01/19 9:50 AM CDT [facility] Not Available Not Available 12/27/2024 [...] PRISCA L MG/DL 01/19 9:50 AM CDT [facility] Not Available Not Available 12/27/2024 22:45:46 01/20/20 24 01/20/2024 Urina lysis dipst ick W Refle x Micro scopi c panel - Urine bilirubin.to allen [mass/volume ] in urine NEGATI VE text: negati ve mg/dL BILIR UBIN (U) NEGAT SHYAM NEGAT SHYAM MG/DL 01/19 9:50 AM CDT [facility] Not Available Not Available 12/27/2024 22:45:46 01/20/20 24 01/20/2024 Urina lysis dipst ick W Refle x Micro scopi c panel - Urine erythrocytes [#/volume] in urine by automated test strip NEGATI VE text: negati ve BLOOD (U) NEGAT SHYAM NEGAT SHYAM 01/19 9:50 AM CDT [facility] Not Available Not Available 12/27/2024 22:45:46 01/20/20 24 01/20/2024 aPTT in Plate let poor plasm a by Coagu latio n assay APTT in platelet poor plasma by coagulation assay 44.7 text: 25.1 - 36.5 sec high PTT 44.7 (H) 25.1 - 36.5 SEC 01/19 10:17 AM CDT [facility] Not Available Not Available 12/27/2024 [...] - 12.9 SEC 01/19 10:17 AM CDT [facility] Not Available Not Available 12/27/2024 22:45:46 01/20/20 24 01/20/2024 Proth rombi n time (PT) INR in platelet poor plasma by coagulation assay 2 INR 2.0 01/19 10:17 AM CDT [facility] Not Available Not Available 12/27/2024 [...] 11.0 x10'3 /uL 01/19 10:15 AM CDT [facility] Not Available Not Available 12/27/2024 22:45:45 01/20/20 24 01/20/2024 CBC W Auto Diffe renti al panel - Blood erythrocytes [#/volume] in blood by automated count 3.22 text: 4.70 - 6.10 x10'6/ uL low RBC 3.22 (L) 4.70 - 6.10 x10'6 /uL 01/19 10:15 AM CDT [facility] Not Available Not Available 12/27/2024 22:45:45 01/20/20 24 01/20/2024 CBC W Auto Diffe renti al panel - Blood hemoglobin [mass/volume ] in blood 8.8 text: 14.0 - 18.0 g/dL low HGB 8.8 (L) 14.0 - 18.0 G/DL 01/19 10:15 AM CDT [facility] Not Available Not Available 12/27/2024 22:45:45 01/20/20 24 01/20/2024 CBC W Auto Diffe renti al panel - Blood hematocrit [volume fraction] of blood 29.6 % low: 43%hig h: 54% low HCT 29.6 (L) 43.0 - 54.0 % 01/19 10:15 AM CDT [facility] Not Available Not Available 12/27/2024 22:45:45 01/20/20 24 01/20/2024 CBC W Auto Diffe renti al panel - Blood MCV [entitic volume] 91.9 text: 80.0 - 94.0 fL MCV 91.9 80.0 - 94.0 FL 01/19 10:15 AM CDT [facility] Not Available Not Available 12/27/2024 22:45:45 01/20/20 24 01/20/2024 CBC W Auto Diffe renti al panel - Blood MCH [entitic mass] 27.3 pg low: 27pghi gh: 31pg MCH 27.3 27.0 - 31.0 PG 01/19 10:15 AM CDT [facility] Not Available Not Available 12/27/2024 22:45:45 01/20/20 24 01/20/2024 CBC W Auto Diffe renti al panel - Blood MCHC [mass/volume ] 29.7 text: 32.0 - 36.0 g/dL low MCHC 29.7 (L) 32.0 - 36.0 G/DL 01/19 10:15 AM CDT [facility] Not Available Not Available 12/27/2024 22:45:45 01/20/20 24 01/20/2024 CBC W Auto Diffe renti al panel - Blood erythrocyte distribution width [entitic volume] by automated count 16.3 % low: 11.5%h igh: 14.5% high RDW 16.3 (H) 11.5 - 14.5 % 01/19 10:15 AM CDT [facility] Not Available Not Available 12/27/2024 22:45:45 01/20/20 24 01/20/2024 CBC W Auto Diffe renti al panel - Blood platelets [#/volume] in blood 361 text: 130 - 400 x10'3/ uL PLT 361 130 - 400 x10'3 /uL 01/19 10:15 AM CDT [facility] Not Available Not Available 12/27/2024 22:45:45 01/20/20 24 01/20/2024 CBC W Auto Diffe renti al panel - Blood platelet mean volume [entitic volume] in blood 8.6 text: 9.3 - 12.2 fL low MPV 8.6 (L) 9.3 - 12.2 FL 01/19 10:15 AM CDT [facility] Not Available Not Available 12/27/2024 22:45:45 01/20/20 24 01/20/2024 CBC W Auto Diffe renti al panel - Blood differential cell count method - blood AUTOMA MYRTLE DIFFER ENTIAL DIFFE RENTI AL TYPE AUTOM ATED DIFFE RENTI AL 01/19 10:15 AM CDT [facility] Not Available Not Available 12/27/2024 22:45:45 01/20/20 24 01/20/2024 CBC W Auto Diffe renti al panel - Blood neutrophils/ 100 leukocytes in blood by automated count 52.3 % NEUTR OPHIL S 52.3 % 01/19 10:15 AM CDT [facility] Not Available Not Available 12/27/2024 22:45:45 01/20/20 24 01/20/2024 CBC W Auto Diffe renti al panel - Blood lymphocytes/ 100 leukocytes in blood by automated count 20.9 % LYMPH OCYTE S 20.9 % 01/19 10:15 AM CDT [facility] Not Available Not Available 12/27/2024 22:45:45 01/20/20 24 01/20/2024 CBC W Auto Diffe renti al panel - Blood monocytes/10 0 leukocytes in blood by automated count 12.6 % MONOC YTES 12.6 % 01/19 10:15 AM CDT [facility] Not Available Not Available 12/27/2024 22:45:45 01/20/20 24 01/20/2024 CBC W Auto Diffe renti al panel - Blood eosinophils/ 100 leukocytes in blood by automated count 12.2 % EOSIN OPHIL S 12.2 % 01/19 10:15 AM CDT [facility] Not Available Not Available 12/27/2024 22:45:45 01/20/20 24 01/20/2024 CBC W Auto Diffe renti al panel - Blood basophils/10 0 leukocytes in blood by automated count 1.6 % BASOP HILS 1.6 % 01/19 10:15 AM CDT [facility] Not Available Not Available 12/27/2024 22:45:45 01/20/20 24 01/20/2024 CBC W Auto Diffe renti al panel - Blood immature granulocytes /100 leukocytes in blood by automated count 0.4 % IMMAT URE GRANS 0.4 % 01/19 10:15 AM CDT [facility] Not Available Not Available 12/27/2024 22:45:45 01/20/20 24 01/20/2024 CBC W Auto Diffe renti al panel - Blood neutrophils [#/volume] in blood 2.66 text: 1.80 - 7.70 x10'3/ uL ABS. NEUTR OPHIL S 2.66 1.80 - 7.70 x10'3 /uL 01/19 10:15 AM CDT [facility] Not Available Not Available 12/27/2024 22:45:45 01/20/20 24 01/20/2024 CBC W Auto Diffe renti al panel - Blood lymphocytes [#/volume] in blood 1.06 text: 1.00 - 4.80 x10'3/ uL ABS. LYMPH OCYTE S 1.06 1.00 - 4.80 x10'3 /uL 01/19 10:15 AM CDT [facility] Not Available Not Available 12/27/2024 22:45:45 01/20/20 24 01/20/2024 CBC W Auto Diffe renti al panel - Blood monocytes [#/volume] in blood 0.64 text: 0.30 - 0.82 x10'3/ uL ABS. MONOC YTES 0.64 0.30 - 0.82 x10'3 /uL 01/19 10:15 AM CDT [facility] Not Available Not Available 12/27/2024 22:45:45 01/20/20 24 01/20/2024 CBC W Auto Diffe renti al panel - Blood eosinophils [#/volume] in blood 0.62 text: 0.04 - 0.54 x10'3/ uL high ABS. EOSIN OPHIL S 0.62 (H) 0.04 - 0.54 x10'3 /uL 01/19 10:15 AM CDT [facility] Not Available Not Available 12/27/2024 22:45:45 01/20/20 24 01/20/2024 CBC W Auto Diffe renti al panel - Blood basophils [#/volume] in blood 0.08 text: 0.01 - 0.08 x10'3/ uL ABS. BASOP HILS 0.08 0.01 - 0.08 x10'3 /uL 01/19 10:15 AM CDT [facility] Not Available Not Available 12/27/2024 22:45:45 01/20/20 24 01/20/2024 CBC W Auto Diffe renti al panel - Blood immature granulocytes [#/volume] in blood 0.02 text: 0.00 - 0.49 x10'3/ uL ABS. IMMAT URE GRANU LOCYT ES 0.02 0.00 - 0.49 x10'3 /uL 01/19 10:15 AM CDT [facility] Not Available Not Available 12/27/2024 [...] - 36.5 SEC 01/25 11:20 AM CDT [facility] Not Available Not Available 12/27/2024 [...] - 12.9 SEC 01/25 11:20 AM CDT [facility] Not Available Not Available 12/27/2024 22:45:49 01/26/20 24 01/26/2024 Proth rombi n time (PT) INR in platelet poor plasma by coagulation assay 1.4 INR 1.4 01/25 11:[address] [facility] Not Available Not Available 12/27/2024 22:45:49 01/26/20 24 01/26/2024 Proth rombi n time (PT) interpretati on and review of laboratory results Abnorm al Not Available Not Available 22:45:49 01/26/20 24 01/29/2024 Patho logy study [facility] Medici ne [address] [place] [address] Teleph one: , extens ion [id number] Pathol ogy Report Surgic al Pathol ogy Report Name: BRENNEN OLSON en #: [id number] Age: [birth year] (Age: 74) Locati on: [facility] Sex: M Proced ure Date: Hospit al #: [id number] Date Receiv ed: Date Report ed: [...] blayne charac terist ics determ ined by [facility] Cesar meraz. It has not been cleare d or approv ed by the U.S. Food and Drug Admini strati on. Ayan singh, the use of Analyt e Specif ic Reagen ts does not requir e FDA approv al. Gross examin ation (when applic able), interp retati on, and sign out were perfor med at [facility] al, [address] [place] [address]. FINAL DIAGNO SIS: MARTÍNEZ R, BIOPSY : [...] Signed Out LINDA Bergman MD PATHO LOGY [facility] Depar tment of Labor ator Medic ine [address] [place] [address] Telep leia: , exten natacha 07 Patho logy Repor t Surgi will Patho logy Repor t Name: TANYA OLSON Speci men #: [id number] Age: [id number] (Age: 74) Locat ion: SESUSHMA S Sex: M Proce dure Date: 2023 Hospi allen #: [id number] Date Recei ani: 2023 Date Repor myrtle: 2023 Provi peggy: CLEVE MARIEE MD [facility] e: [place], biops y Clini will [...] e luisito cteri stics deter mined by [facility] . It has not been clear ed or appro ani by the U.[place]. Food and Drug Admin istra tion. Howev er, the use of Lauren te Speci fic Reage nts does not requi re FDA appro luis. Gross exami natio n (when appli cable ), inter preta tion, and sign out were perfo rmed at [facility], [address], [place] [address] . FINAL DIAGN OSIS: BLADD ER, BIOPS [...] react shyam fibro blast s. No katherine beteha is ident ified . Sallie ctron icall y Jackie d Out JOHN NORTON MD [facility] Not Available Not Available 12/27/2024 22:45:49 02/01/20 24 02/04/2024 PROTH ROMBI N TIME, INR prothrombin time 22.0 sec above high normal Refer ence Range : 18 years and older : 9.1 - 12.0 Not Available [facility] [address] [place], [address], 02/04/2024 12:44:03 02/01/20 24 02/04/2024 PROTH ROMBI N TIME, INR INR 2.2 ratio above high normal Refer ence Range : >1 month : 0.9 - 1.2 Not Available [facility] [address] [facility], [place], [address], 02/04/2024 12:44:03 12/19/19 25 12/20/2024 BASIC METAB OLIC PANEL (7) glucose 122 mg/dL 70-99 above high normal Not Available [facility] ([facility]) [address] [place], [address], 12/20/2024 09:08:30 12/19/1912/20/2024 BASIC METAB OLIC PANEL (7) BUN 13 mg/dL 8-27 Not Available [facility] ([facility]) [address] [place], [address], 12/20/2024 09:08:30 12/19/19 25 12/20/2024 BASIC METAB OLIC PANEL (7) creatinine 1.81 mg/dL 0.76-1 .27 above high normal Not Available [facility] ([facility]) [address] [facility] [place], [address], 12/20/2024 09:08:30 12/19/1912/20/2024 BASIC METAB OLIC PANEL (7) eGFR 39 mL/mi n/1.7 3 >59 below low normal Not Available [facility] ([facility]) [address] [facility], [address], 12/20/2024 09:08:30 12/19/19 25 12/20/2024 BASIC METAB OLIC PANEL (7) BUN/creatini ne ratio 7 10-24 below low normal Not Available [facility] ([facility]) [address] [facility] [place], [address], 12/20/2024 09:08:30 12/19/1912/20/2024 BASIC METAB OLIC PANEL (7) sodium 139 mmol/ L 134-14 4 Not Available [facility] ([facility]) [address] [place] [place], [address], 12/20/2024 09:08:30 12/19/1912/20/2024 BASIC METAB OLIC PANEL (7) potassium 4.5 mmol/ L 3.5-5. 2 Not Available [facility] ([facility]) [address] [place] [place], [address], 12/20/2024 09:08:30 12/19/1912/20/2024 BASIC METAB OLIC PANEL (7) chloride 108 mmol/ L 96-106 above high normal Not Available [facility] ([facility]) [address] [place] [place], [address], 12/20/2024 09:08:30 12/19/1912/20/2024 BASIC METAB OLIC PANEL (7) carbon dioxide, total 19 mmol/ L 20-29 below low normal Not Available [facility] ([facility]) [address] [place] [place], [address], 12/20/2024 09:08:30 12/19/1912/20/2024 PROTH ROMBI N TIME [...] range 2.5 - 3.5 Not Available [facility] ([facility]) [address] [place], [address], 12/20/2024 09:08:32 12/19/1912/20/2024 PROTH ROMBI N TIME (PT) prothrombin time 13.6 sec 9.1-12 .0 above high normal Not Available [facility] ([facility]) [address] [place], [address], 12/20/2024 09:08:32 12/19/1912/20/2024 CBC, PLATE LET, NO DIFFE RENTI AL WBC 4.6 x10e3 /uL 3.4-10 .8 Not Available [facility] ([facility]) [address] [place], [address], 12/20/2024 09:08:33 12/19/1912/20/2024 CBC, PLATE LET, NO DIFFE RENTI AL RBC 3.10 x10e6 /uL 4.14-5 .80 below low normal Not Available [facility] ([facility]) [address] [place], [address], 12/20/2024 09:08:33 12/19/1912/20/2024 CBC, PLATE LET, NO DIFFE RENTI AL hemoglobin 9.1 g/dL 13.0-1 7.7 below low normal Not Available [facility] ([facility]) [address] [place], [address], 12/20/2024 09:08:33 12/19/1912/20/2024 CBC, PLATE LET, NO DIFFE RENTI AL hematocrit 30.5 % 37.5-5 1.0 below low normal Not Available [facility] ([facility]) [address] [place], [address], 12/20/2024 09:08:33 12/19/1912/20/2024 CBC, PLATE LET, NO DIFFE RENTI AL MCV 98 fL 79-97 above high normal Not Available [facility] ([facility]) [address] [place], [address], 12/20/2024 09:08:33 12/19/1912/20/2024 CBC, PLATE LET, NO DIFFE RENTI AL MCH 29.4 pg 26.6-3 3.0 Not Available [facility] ([facility]) [address] [facility], [place], [address], 12/20/2024 09:08:33 12/19/1912/20/2024 CBC, PLATE LET, NO DIFFE RENTI AL MCHC 29.8 g/dL 31.5-3 5.7 below low normal Not Available [facility] ([facility]) [address] [place], [address], 12/20/2024 09:08:33 12/19/1912/20/2024 CBC, PLATE LET, NO DIFFE RENTI AL RDW 14.6 % 11.6-1 5.4 Not Available [facility] ([facility]) [address] [place], [address], 12/20/2024 09:08:33 12/19/1912/20/2024 CBC, PLATE LET, NO DIFFE RENTI AL platelets 300 x10e3 /uL 150-45 0 Not Available [facility] ([facility]) [address] [place], [address], 12/20/2024 09:08:33 12/16/19 24 11/20/2023 colon oscop y proce dure (PROC ) No observ ation record ed. [address], [place], [address], 12/16/2023 17:16:27 01/21/20 24 01/21/2024 US, echo ardio gram No observ ation record ed. [facility] [address], [place], [address], 01/25/2024 15:02:21 01/07/20 25 01/06/2025 cardi ac stres s test No observ ation record ed. [address], [address], 01/18/2025 17:00:56 01/19/20 25 01/06/2025 adeno sine stres s test (PROC ) No observ ation record ed. [address], [address], 01/19/2025 17:33:35 02/03/20 25 01/05/2025 PFT, compl ete No observ ation record ed. [address], [address], 02/02/2025 17:00:46 Result Notes None recorded. Problems Name Problem SNOMED Code Status Onset Date Resolution Date Notes Provider Name and Address Organization Details Recorded Time Gastroesophage al reflux disease without esophagitis 277987063 Active 2023 Bubba Alcala MD Attn: Fred daly,[address] [facility], [place], [address], [facility] 22:09:46 Dyslipidemia 256608646 Active 2023 Bubba Alcala MD Attn: Fred daly,[address] [facility], [place], [address], [place] - [facility] 4 22:09:47 Chronic anemia 228527520 Active 2023 Bubba Alcala MD Attn: Fred daly,[address] [facility], [place], [address], [place] [facility] 4 22:09:50 Inflammatory bowel disease 52744773 Active 2023 Bubba Alcala MD Attn: Fred daly,[address] [facility], [place], [address], [place] [facility] 4 22:09:52 History of pulmonary embolus 347863847 Active 2023 Bubba Alcala MD Attn: Fred daly,[address] [facility], [place], [address], [place] [facility] 4 22:12:55 History of malignant neoplasm of prostate 586613688 Active 2023 Bubba Alcala MD Attn: Delvinmckayla daly,[address] [facility], [place], [address], [place] [facility] 4 22:14:37 Cervical spondylosis 758970591 Active 2023 Bubba Alcala MD Attn: Fred daly,[address] [facility], [place], [address], [place] [facility] 4 21:43:45 Problem Notes None recorded. Procedures Surgical History Date Name Laterality Status Provider Name and Address Organization Details Recorded Time colonoscopy completed Scarlett Louis [place] - [facility] 12/08/2024 16:02:50 endoscopy completed Scarlett Louis [place] - [facility] 12/08/2024 16:02:58 Imaging Results Imaging Date Name Status LastModified by Organization Details LastModified Time 11/20/2023 colonoscopy procedure (PROC) completed [id number] [place] [address] [address] [place], [address], 12/16/2023 17:16:27 01/21/2024 US, echocardiogram completed [facility] [address], [place], [address], 01/25/2024 15:02:21 01/06/2025 cardiac stress test completed [address], [address], 01/18/2025 17:00:56 01/06/2025 adenosine stress test (PROC) completed [address], [address], 01/19/2025 17:33:35 01/05/2025 PFT, complete completed [address], [address], 02/02/2025 17:00:46 Procedure Notes None recorded. Medical Equipment None Reported. Allergies Allergen ID Allergen Name Allergen Category Reaction Reaction Severity Criticality Documentation Date Start Date Code Code System Note Provider Name and Address Organization Details Recorded Time 940304 amoxicill in medicatio n hives Not available Not available 12/28/2023 723 RxNorm NORA [place], [place] - [facility] 4 16:18:47 686806 Farxiga medicatio n Not available Not available Not available 12/28/2023 14399 72 RxNorm peria nal rash NORA [place], [place] - [facility] 4 16:19:36 120778 Celebrex medicatio n hives Not available Not available 12/28/2023 19062 7 RxNorm [place] [facility] 4 16:19:58 504171 Lyrica medicatio n Not available Not available Not available 12/28/2023 89715 1 RxNorm blurr y visio NORA Hunt, [...] Updated DateTime 4 181.61 cm 40 kg/m2 928995. 58 g 81 /min 14 /min 97.7 [degF] 97 % 97 % 138 mm[Hg] 82 mm[Hg] 126 mm[Hg] 72 mm[Hg] NORA Cadet [facility] 4 16:19:07 Date Recorded Body height Body mass index (BMI) Body weight Heart rate Oxygen saturation Oxygen saturation in Arterial blood by Pulse oximetry Systolic blood pressure Diastolic blood pressure Provider Name and Address Organization Details Last Updated DateTime 4 181.61 cm 39.5 kg/m2 501528. 45 g 64 /min 99 % 99 % 122 mm[Hg] 74 mm[Hg] Puja Beckwith MA [facility] 4 15:58:12 Date Recorded Body height Body mass index (BMI) Body weight Heart rate Oxygen saturation Oxygen saturation in Arterial blood by Pulse oximetry Systolic blood pressure Diastolic blood pressure Provider Name and Address Organization Details Last Updated DateTime 4 181.61 cm 39.9 kg/m2 051507. 47 g 62 /min 99 % 99 % 126 mm[Hg] 68 mm[Hg] Sherine Hammonds MA [facility] 4 14:52:37 Date Recorded Body height Body mass index (BMI) Body weight Oxygen saturation Oxygen saturation in Arterial blood by Pulse oximetry Heart rate Systolic blood pressure Diastolic blood pressure Provider Name and Address Organization Details Last Updated DateTime 5 181.61 cm 38.8 kg/m2 497725. 69 g 97 % 97 % 64 /min 120 mm[Hg] 78 mm[Hg] Scarlett Louis MA [facility] 5 16:07:53 Social History Question Answer Notes LastModified by Organizat ion Details LastModified Time Tobacco Smoking Status Former Smoker Ingris Yost, NORA null, [facility] 12/28/2023 16:20:38 What Was The Date Of [...] Skin Problems N Anemia Y Heart Attack (CA) Y Anxiety Disorder N Diabetes N Muscle, [...] Influenza, high-dose, quadrivalent, PF 3 completed Emily [place], [place] [facility] 11/17/2024 11:46:12 Influenza, high-dose, quadrivalent, PF 2 completed [place] [facility] 11/17/2024 11:46:12 Influenza, high-dose, quadrivalent, PF 1 completed [place] [facility] 11/17/2024 11:46:12 COVID-19, mRNA, LNP-S, PF, 100 mcg/0.5mL dose or 50 mcg/0.25mL dose 2 completed [place] [facility] 11/17/2024 11:46:12 COVID-19, mRNA, LNP-S, PF, 100 mcg/0.5mL dose or 50 mcg/0.25mL dose 1 completed [place] [facility] 11/17/2024 11:46:12 COVID-19, mRNA, LNP-S, PF, 100 mcg/0.5mL dose or 50 mcg/0.25mL dose 1 completed [place] [facility] 11/17/2024 11:46:12 COVID-19, mRNA, LNP-S, PF, 100 mcg/0.5mL dose or 50 mcg/0.25mL dose 1 completed [place] [facility] 11/17/2024 11:46:12 influenza, unspecified formulation 8 completed [place] [facility] 11/17/2024 11:46:12 influenza, unspecified formulation 4 completed [place] [facility] 11/17/2024 11:46:13 Influenza, high-dose, trivalent, PF 8 completed [place] [facility] 11/17/2024 11:46:13 Influenza, high-dose, trivalent, PF 9 completed [place] [facility] 11/17/2024 11:46:13 Influenza, high-dose, trivalent, PF 7 completed [place] [facility] 11/17/2024 11:46:13 Influenza, split virus, trivalent, preservative 3 completed [place] [facility] 11/17/2024 11:46:13 Influenza, split virus, quadrivalent, PF 5 completed [place] [facility] 11/17/2024 11:46:13 Pneumococcal conjugate PCV20, polysaccharide [id number] conjugate, adjuvant, PF 4 completed Bubba Alcala MD Attn: Accounting,[address] [place], [address], [place] [facility] 05/01/2024 22:07:26 Influenza, high-dose, trivalent, PF 4 completed Bubba Alcala MD Attn: Accounting,[address] [place], [address], [place] [facility] 07/30/2024 21:41:48 Past Encounters Encounter ID Performer Location Encounter Start Date Encounter Closed Date Diagnosis/Indication Diagnosis SNOMED-CT Code Diagnosis ICD10 Code Diagnosis Note [id number] Bubba Alcala MD [facility] (Adult Med) [address] [place] [phone] 12/28/2023 15:33:31 12/28/2023 17:03:34 Proctitis 9285107 K62.89 Anticoagulant therapy 18 3770618 Z79.01 Hyperlipidemia 76613676 E78.5 Long-term drug therapy 928458473 Z79.899 Nonischemi c congestive cardiomyopathy 8540555352 04 I42.0 History of malignant neoplasm of prostate 943291813 Z85.46 Chronic ki dney disease stage 3 280087536 N18.30 Ventricula r tachycardia 93405894 I47.20 [id number] Bubba Alcala MD [facility] (Adult Med) [address] [place] [phone] 04/05/2024 15:47:26 04/05/2024 17:08:10 Administration of pneumococcal vaccine 86471537 Z23 Gastroesop hageal reflux disease without esophagitis 115545822 K21.9 Dyslipidemia 022354591 E 78.5 Chronic anemia 064922956 D64.9 Inflammato ry bowel disease 10360624 K52.9 History of pulmonary embolus 197895612 Z86.711 History of malignant neoplasm of prostate 352737588 Z85.46 [id number] Bubba Alcala MD [facility] (Adult [facility]) [address] [place] [id number] 07/12/2024 14:26:22 07/12/2024 15:52:19 Body mass index 30+ - obesity 669373413 Z68.39 BMI 39.9 Administra tion of influenza vaccine 62044150 Z23 Dyslipidemia 269804950 E 78.5 Chronic anemia 571376423 D64.9 Gastroesop hageal reflux disease without esophagitis 527125296 K21.9 Cervical spondylosis 387 479789 M47.644 [id number] Bubba Alcala MD [facility] [address] [place] [address] 12/08/2024 15:00:29 12/08/2024 16:45:43 Body mass index 30+ - obesity 375260845 Z68.39 BMI 39.9 Chronic anemia 156659342 D64.9 Gastroesop hageal reflux disease without esophagitis 470994733 K21.9 Dyslipidemia 464337881 E 78.5 Proctitis 7495484 K62.89 Anticoagulant therapy 18 2654928 Z79.01 Hyperlipidemia 04568103 E78.5 Long-term drug therapy 718903956 Z79.899 Nonischemi c congestive cardiomyopathy 3839380879 04 I42.0 History of malignant neoplasm of prostate 213802681 Z85.46 Chronic ki dney disease stage 3 389678840 N18.30 Ventricula r tachycardia 11905667 I47.20 History of pulmonary embolus 296347144 Z86.711 Health Concerns Section Related Observation LastModified by Organization Detai ls LastModified Time None Recorded Concern Status LastModified by Organization Details LastModified Time None Recorded Advance Directives Directive None Recorded Payers Encounter Date Sequence Insurance Name Policy Number Policy Abbasi Covered Member ID Abbasi Member ID Guarantor Name 12/28/2023 1 [facility] (MEDICARE REPLACEMENT/A DVANTAGE - HMO) [id number] Brennen Olson [id number] [facility] 04/05/2024 1 [facility] (MEDICARE REPLACEMENT/A DVANTAGE - HMO) [id number] Brennen Olson [id number] [facility] 07/12/2024 1 [facility] (MEDICARE REPLACEMENT/A DVANTAGE - HMO) [id number] Brennen Olson [id number] [facility] 12/08/2024 1 [facility] (MEDICARE REPLACEMENT/A DVANTAGE - HMO) [id number] Brennen Olson [id number] [facility] Notes Date Note Type Note Provider [...] pain Bubba Alcala MD Attn: Accounting,[address] [place], [address], [place] [facility] 05/01/2024 22:15:04 07/12/2024 text/html chronic anemia h e has does not have any symptoms at this time GERD no nausea no vomiting chronic neck pain has been stable dyslipidemia trying to watch his diet history of PE no cardiopulmonary symptoms today still has some bleeding from radiation proctitis Bubba Alcala MD Attn: Accounting,[address] [place], [address], [place] [facility] 07/30/2024 21:45:03 12/08/2024 [...] Miller's Bubba Alcala MD Attn: Accounting,[address] [facility], [place], [address], [facility] - [facility] 12/08/2024 21:26:54
--- OUTSIDE RECORDS SUMMARY | 2025-03-13 11:23 | XMS_ITS | Clinical Summary ---
Author Organization [facility] Address [address] [facility] [place] [address] Care Team Providers Care Diesel Engine Mechanic Name Role Phone Jas Alcala MD Unavailable [phone] Jas Alcala MD Primary Care Provider [phone] Source Comments [facility],non-owned Affiliates and Associated Physician Practices is amultiple site organization consisting of ambulatory clinics and hospital sitesin [place], [place], [place] and [place]. This disclosure is being madepursuant to the Care Everywhere program and may not contain all information available regarding this patient. 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 Gender Identity Not on file Sexual Orientation Not on file Last Filed Vital Signs Vital Sign Reading Time Taken Comments Blood Pressure 150/99 10/22/2010 2:45 PM EPOXY SPECIALIST Pulse 68 10/22/2010 2:45 PM EPOXY SPECIALIST Temperature 36.6 C (97.8 F) 10/22/2010 2:45 PM EPOXY SPECIALIST Respiratory Rate 16 10/22/2010 2:45 PM EPOXY SPECIALIST Oxygen Saturation 97% 10/22/2010 2:45 PM EPOXY SPECIALIST Inhaled Oxygen Concentration - - Weight 129.7 kg (286 lb) 10/22/2010 7:02 AM EPOXY SPECIALIST Height 182.9 cm (6') 10/22/2010 7:02 AM EPOXY SPECIALIST Body Mass Index 38.79 10/22/2010 7:02 AM EPOXY SPECIALIST Plan of Treatment Health Maintenance Due Date [...] 2:20 PM 10/23/2010 7:05 AM Care Teams Diesel Engine Mechanic Relationship Specialty Start Date End Date Jas Alcala MD [address] [place] [address] PCP - General 10/22/10 Jas Alcala MD Internal Medicine 09/23/10
--- OUTSIDE RECORDS SUMMARY | 2025-03-13 11:23 | XMS_ITS ---
Author Organization [facility] Address [address] [place] [address] Care Team Providers Care Psych Arnp Name Role Phone Lucio Rosas MD Unavailable Bianca Hunter MD Unavailable [phone] Hero Pinedo MD Unavailable [phone] Jas Alcala MD Primary Care Provider [phone] Lon Tomas MD Unavailable [phone] Jaycee Teresa MD Unavailable [phone] Active Problems Patient Care Coordination No te [...] He also has a history of an [place] and PE. He has a history of [...] 01/04/2025 Assessment & Plan (11/25/2024 9:39 AM BURR BENCH HAND): EGD November 2024 with nodules in the distal esophagus, pathology with 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 -Pathology discuss in detail and all questions were answered -Refer for EUS -Refer to Oncology and Cardiothoracic surgery Miller's esophagus with high grade dysplasia Assessment & Plan (11/25/2024 9:41 AM BURR BENCH HAND): EGD September 2024 with irregular Z-line and gastric ulcers. Pathology with Barretts esophagus, indefinite for dysplasia. Repeat EGD November 2024 with Barretts esophagus, pathology with high-grade dysplasia. -Continue pantoprazole 40 mg p.o. b.i.d. History of colon polyps 11/25/2024 Assessment & Plan (11/25/2024 9:42 AM BURR BENCH HAND): Colonoscopy November 2024 with multiple tubular adenomas. -Repeat colonoscopy November 2027 Gastric ulcer 09/23/2024 Anemia due to blood loss 09/23/2024 Rectal bleeding 08/22/2024 Radiation proctitis 08/22/2024 Assessment & Plan (11/25/2024 9:41 AM BURR BENCH HAND): Colonoscopy November 2024 with severe radiation proctitis status post APC. -Consider flex sig with APC, patient advised to call office if rectal bleeding gets worse Eosinophilia 02/22/2024 Iron deficiency anemia, unspecified 02/22/2024 Anemia 02/22/2024 VT (ventricular tachycardia) 05/09/2022 Overview (05/09/2022): Added automatically from request for surgery [id number] Lower urinary tract symptoms (LUTS) 05/24/2020 Malignant neoplasm of prostate 04/25/2013 Current Treatment and Therapy Plans Hydration Therapy Plan* Plan Start Date:02/20/2025 Plan Provider:Bianca uHnter MD Linked Problems Malignant neoplasm of lower [...]
[2025-03-13 11:30] LABS: INR 4.1; Prothrombin Time 39.9 Seconds (11.1-14.7)
== END 2025-03-13 11:00 | disposition home or self-care (01) ==
PROVIDERS: PCP Internal Medicine; Visit Provider Internal Medicine
DX: Z79.01 Long term (current) use of anticoagulants (principal)
CPT/HCPCS: 36415; 85610

== ENCOUNTER 2025-05-12 11:40 | Outpatient (CLI) | payer MEDICARE, SELFPAY ==
--- OUTSIDE RECORDS SUMMARY | 2025-05-12 11:50 | XMS_ITS | Encounter Summary ---
Author Organization [facility] Healthcare Address [address] [place] [address] Care Team Providers Care Medical Imaging Technician Name Role Phone Lucio Rosas MD Unavailable Bianca Hunter MD Unavailable +- [phone] Hero Pinedo MD Unavailable [phone] Jas Alcala MD Primary Care Provider + [phone] Lon Tomas MD Unavailable [phone] Jaycee Teresa MD Unavailable [phone] Encounter Details Date Type Department Care Team (Late st Contact Info) Description 05/11/2025 12:00 PM CDT [facility] at [address] [address] Anemia, unspecified type (Primary Dx); History of pulmonary embolism Social History Tobacco Use Types Packs/Day Years Used Date Smoking Tobacco: Former Cigarettes 2019 Smokeless Tobacco: Never Alcohol Use Standard Drinks/Week Comments Yes 6 (1 standard drink = 0.6 oz pur e alcohol) AUDIT-C Answer Date Recorded Q1: How often do you have a drink containing alcohol? Never 05/10/2025 Q2: How many drinks containi ng alcohol do you have on a typical day when you are drinking? Patient does not drink Q3: How often do you have si x or more drinks on one occasion? Never 05/10/2025 Personal Safety Answer Date Recorded Have you ever been in or are you currently in a harmful physical or emotional relationship or is someone making you feel afraid or unsafe? 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 Not on file Not on file Not on file documented as of this encounter Last Filed Vital Signs Vital Sign Reading Time Taken Comments Blood Pressure 114/66 05/11/2025 2:20 PM CDT Pulse 59 05/11/2025 2:20 PM CDT Temperature 36.5 C (97.7 F) 05/11/2025 2:20 PM CDT Respiratory Rate 18 05/11/2025 2:20 PM CDT Oxygen Saturation 97% 05/11/2025 2:20 PM CDT Inhaled Oxygen Concentration - - Weight 118.1 kg (260 lb 6.4 oz) 025 11:51 AM CDT Height - - Body Mass Index 36.32 02/14/2025 9:32 AM CDT documented in this encounter Nursing Notes * Apple Mclaughlin RN - 05/11/2025 12:00 PM CDT Oncology Nursing Note Blood Product Administration [facility] Lucrecia Olson is a 75 y.o. male who presents for the following transfusion: Blood Pre-treatment Nursing Assessment Nursing Assessment LOC: Alert, Awake Fatigue: Constant Any falls since your last visit?: No Orientation: Oriented x4 Behavior: Calm Speech: Clear Language: No aphasia Vision: At baseline Peripheral Neuropathy: Yes Oral Mucosa Grade: Normal (0) Shortness of Breath?: Yes (BALL) Appetite: Good Nausea/Vomiting: No Diarrhea: No Constipation: No Skin Condition/Temp: Warm, Dry Swelling: Yes Swelling location: LLE, RLE BP: 114/66 Temp: 36.5 ??C (97.7 ??F) Temp src: Oral Pulse: 59 Resp: 18 SpO2: 97 % Weight: 118.1 kg (260 lb 6.4 oz) Lab Result Lab Results Component Value Date WBC 3.67 (L) 05/11/2025 HGB 8.0 (L) 05/11/2025 HCT 26.0 (L) 05/11/2025 MCV 102.8 (H) 05/11/2025 LABPLAT 184 05/11/2025 Lab Results Component Value Date NEUTROABS 2.24 05/11/2025 Patient is within parameters for transfusion. Treatment Consent for transfusion: Active consent noted in patient chart. Prior transfusion reaction: No and No premedications ordered. Pre blood return: Brisk. Transfused patient with 1 unit PRBC per protocol. Marshall Olson tolerated transfusion. IV line flushed until clear and patient observed for 15 minutes post transfusion. Post blood return: Brisk. IV access post infusion: NS. Patient Education Instructed on process and procedures related to today's visit including signs and symptoms of transfusion reaction. Response: Verbalizes understanding Discharge Plan Blood product transfusion discharge instructions given to patient. Future appointments given and reviewed with treatment plan. Discharge Mode: Ambulatory Accompanied by: Self Discharged To: Home documented in this encounter Plan of Treatment Not on file documented as of this encounter Procedures Procedure Name Priority Date/Time Associated Diagnosis Comments TRANSFUSE RED BLOOD CELLS Timed 05/11/2025 12:04 PM CDT Anemia, unspecified type PREPARE RBC STAT 05/11/2025 10:01 AM CDT Anemia, unspecified type documented in this encounter Results * Transfuse RBC (05/11/2025 2:28 PM CDT) Blood Francisco Jones DO BLOOD TRANSFUSION ORDERABLES Final Result * Transfuse RBC: 1 Units (05/11/2025 2:28 PM CDT) Blood Francisco Jones DO BLOOD TRANSFUSION ORDERABLES Final Result * Prepare RBC: 1 Units (05/11/2025 10:01 AM CDT) Units requested 1 Comment:Testing performed by : [facility], [address] [place] [address], [place]., [address] Units requested Ready ISAAC SERNA Comment:Testing performed by : [facility], [address] [place]., [address] Unit Number [id number] Product code [id number] ISAAC Blood Expiration Date ISAAC Product Blood Type (for scanning) 6200 ISAAC Product Blood Type APOS ISAAC Dispense Status DISPENSED ISAAC Blood 05/11/2025 10:0 1 AM CDT 05/11/2025 10:01 AM CDT Nena Cano MOTOR TESTER BLOOD BANK PRODUCT ORDERABL ES Final Result ISAAC [address] [facility] Department [place] [address] documented in this encounter Visit Diagnoses Diagnosis Anemia, unspecified type- Primary History of pulmonary embolism Personal history of venous thrombosis and embolism documented in this encounter Orders Medications Ordered That Juventino ht Not Have Been Administered Count Last Ordered Date First Ordered Date acetaminophen (TYLENOL) tablet 650 mg 1 08/2025 diphenhydrAMINE (BENADRYL) tab/cap 25 mg 1 05/11/2025 sodium chloride 0.9% infusion 1 05/11/2025 Nursing Count Last Ordered Date First Orde red Date ONCBCN NURSING COMMUNICATION [id number] 0 05/11/2025 VITAL SIGNS 1 05/11/2025 Appointment Requests Count Last Ordered Date Fi rst Ordered Date ONCBCN BLOOD TRANSFUSION APPT 1 05/11/2025 documented in this encounter Care Teams Medical Imaging Technician Relationship Specialty Start Date End Date Jas Alcala MD [facility] [facility] [address] [place] [address] PCP - General Internal Medicine 01/04/25 Lucio Rosas MD [facility] [address] [place] [address] Consulting Physician Gastroenterology 11/28/24 Bianca Hunter MD [facility] [address] [address] Medical Oncologist/Laboratory Mechanic Helper Medical Oncology 12/07/24 Hero Pinedo MD [address] [place] [address] Radiation Oncologist Radiation Oncology 12/28/24 Lon Tomas MD [address] [place] [address] Consulting Physician Urology 01/04/25 Jaycee Teresa MD [address] [place] [address] Consulting Physician Cardiology 01/09/25 documented as of this encounter
--- OUTSIDE RECORDS SUMMARY | 2025-05-12 11:50 | XMS_ITS | Encounter Summary ---
Author Organization [facility] Address [address] [place] [address] Phone Care Team Providers Care Client Business Manager Name Role Phone Lucio Rosas MD Unavailable Bianca Hunter MD Unavailable + [phone] Hero Pinedo MD Unavailable [phone] Jas Alcala MD Primary Care Provider + [phone] Lon Tomas MD Unavailable [phone] Jaycee Teresa MD Unavailable [phone] Encounter Details Date Type Department Care Team (Late st Contact Info) Description 05/08/2025 Telephone [facility] [address] 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 Pt had PFT done 01/05/25 report is in Media * Telephone Encounter - Reinaldo Little RMA - 05/09/2025 8:38 AM CDT Called pt no answer left message * Telephone Encounter - Reinaldo Little RMA - 05/08/2025 10:21 AM CDT Scheduled pt PFT 05/15 3pm [facility] Called pt no answer left message documented in this encounter Plan of Treatment Not on file documented as of this encounter Visit Diagnoses Not on filedocumented in this encounter Care Teams Client Business Manager Relationship Specialty Start Date End Date Jas Alcala MD [address] [address] PCP - General Internal Medicine 01/04/25 Lucio Rosas MD [address] [address] Consulting Physician Gastroenterology 11/28/24 Bianca Hunter MD [address] [address] Medical Oncologist/Acoustical Installer Medical Oncology 12/07/24 Hero Pinedo MD [address] [address] Radiation Oncologist Radiation Oncology 12/28/24 Lon Tomas MD [address] [place] [address] Consulting Physician Urology 01/04/25 Jaycee Teresa MD [address] [place] [address] Consulting Physician Cardiology 01/09/25 documented as of this encounter
--- OUTSIDE RECORDS SUMMARY | 2025-05-12 11:50 | XMS_ITS | Encounter Summary ---
Author Organization [facility] Healthcare Address [address] [place] [address] Care Team Providers Care Filling Machine Operator Name Role Phone Lucio Rosas MD Unavailable Bianca Hunter MD Unavailable + [phone] Hero Pinedo MD Unavailable [phone] Jas Alcala MD Primary Care Provider + [phone] Lon Tomas MD Unavailable [phone] Jaycee Teresa MD Unavailable [phone] Encounter Details Date Type Department Care Team (Late st Contact Info) Description 05/12/2025 Telephone [facility] Gastroenterology at [address] [place] [address] Lucio Rosas MD [address] [place] [address] [address] [place] [address] Social History Tobacco Use Types Packs/Day Years [...] on file 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 He would like us to send a script for the pill form to his pharmacy. Please call him when you have done it at [phone] documented in this encounter Plan of Treatment Not on file documented as of this encounter Visit Diagnoses Not on filedocumented in this encounter Care Teams Filling Machine Operator Relationship Specialty Start Date End Date Jas Alcala MD [address] [place] [address] PCP - General Internal Medicine 01/04/25 Lucio Rosas MD [facility] [address] [place] [address] Consulting Physician Gastroenterology 11/28/24 Bianca Hunter MD [facility] [facility] [address] [place] [address] Medical Oncologist/Pharmacist Intern Medical Oncology 12/07/24 Hero Pinedo MD [address] [place] [address] Radiation Oncologist Radiation Oncology 12/28/24 Lon Tomas MD [address] [place] [address] Consulting Physician Urology 01/04/25 Jaycee Teresa MD [address] [place] [address] Consulting Physician Cardiology 01/09/25 documented as of this encounter
--- OUTSIDE RECORDS SUMMARY | 2025-05-12 11:50 | XMS_ITS | Clinical Summary ---
Author Organization [facility] Address [address] [place] [address] Phone Care Team Providers Care Senior Bioinformatics Scientist Name Role Phone Jas Alcala MD Primary Care Provider [phone] Allergies Active Allergy Reactions Criticality Noted Date [...] on file Legal Sex Male 3:47 PM SECTION [employer]EN Gender Identity Not on file Sexual Orientation Not on file Last Filed Vital Signs Vital Sign Reading Time Taken Comments Blood Pressure 142/62 12/29/2019 2:51 PM SECTION [employer] Pulse 62 12/29/2019 2:51 PM SECTION [employer]ARD[employer] Temperature 36.4 C (97.6 F) 12/29/2019 2:51 PM SECTION [employer]ARDEN Respiratory Rate 18 12/29/2019 2:51 PM SECTION [employer] WARDEN Oxygen Saturation 99% 12/29/2019 2:51 PM SECTION [employer]ARD[employer] Inhaled Oxygen Concentration - - Weight 137 kg (302 lb) 12/29/2019 2:51 PM SECTION [employer] Height 182.9 cm (6') 12/29/2019 2:51 PM SECTION [employer] Body Mass Index 40.96 12/29/2019 2:51 PM SECTION [employer] Plan of Treatment Health Maintenance Due Date Last Done Comments Hepatitis C Virus (HCV) Screening 1950 TdaP Immunization 1950 Cologuard 1995 Colonoscopy 1995 Colorectal Cancer Screening 1995 Immunochemical Fecal Occult Blood 1995 Pneumococcal Immunization (50+ years) (1 of 1 - PCV) 01/18/2000 Zoster Immunization (1 of 2) 01/18/2000 SARS-COV-2 Immunization ( - season) 2024 11/05/2021, 10/21/2021, 01/01/2021, Additional history exists Respiratory Syncytial Virus (RSV) Immunization (Adult) (1 - 1-dose 75+ series) 2025 Influenza Immunization (#1) 07/03/202509/02, 09/05/2018, 10/15/2017, Additional history exists Hepatitis B Immunization Aged Out No longer eligible based on patient's age to complete this topic Human Papillomavirus (HPV) Immunization Aged Out No longer eligible based on patient's age to complete this topic Meningococcal Immunization (ACWY) Aged Out No longer eligible based on patient's age to complete this topic Rotavirus Immunization Aged Out No lo nger eligible based on patient's age to complete this topic Care Teams Senior Bioinformatics Scientist Relationship Specialty Start Date End Date Jas Alcala MD PCP - General Internal Medicine 11/09/19
--- OUTSIDE RECORDS SUMMARY | 2025-05-12 11:50 | XMS_ITS | Encounter Summary ---
Author Organization [facility] Healthcare Address [address] [place] [address] Care Team Providers Care Industrial Maintenance Instructor Name Role Phone Lucio Rosas MD Unavailable Bianca Hunter MD Unavailable +- [phone] Hero Pinedo MD Unavailable [phone] Jas Alcala MD Primary Care Provider [phone] Lon Tomas MD Unavailable [phone] Jaycee Teresa MD Unavailable [phone] Reason for Visit * Reason Comments Port Draw Encounter Details Date Type Department Care Team (Latest Contact Info) Description 05/11/2025 9:00 AM CDT Clinical Support [facility] at [address] [address] Anemia, unspecified type; History of pulmonary embolism Social History Tobacco [...] on file 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 Gender Identity Not on file Sexual Orientation Not on file 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 Not on file Not on file 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 Not on file Not on file Not on file documented as of this encounter Plan of Treatment Not on file documented as of this encounter Procedures Procedure Name Priority Date/Time Associated Diagnosis Comments DIFFERENTIAL AUTO Routine 05/11/2025 9:0 0 AM CDT Anemia, unspecified type History of pulmonary embolism IRON PROFILE W/ IBC Routine 05/11/2025 9 :00 AM CDT Anemia, unspecified type History of pulmonary embolism CBC WITH AUTO DIFFERENTIAL Routine 05/11/2025 9:00 AM CDT Anemia, unspecified type History of pulmonary embolism RETICULOCYTES Routine 05/11/2025 9:00 AM CDT Anemia, unspecified type History of pulmonary embolism FERRITIN Routine 05/11/2025 9:00 AM CDT Anemia, unspecified type History of pulmonary embolism documented in this encounter Results * (ABNORMAL) Differential, auto (05/11/2025 9:00 AM CDT) Neutrophil abs 2.24 1.50 - 6.50 K/cumm Comment:Testing performed by : [address] [address] Imm gran abs 0.02 0.00 - 0.10 K/cumm ISAAC Comment:Testing performed by : [address] [address] Lymphocyte abs 0.58(L) 0.80 - 3.30 K/cumm ISAAC Comment:Testing performed by : [address] [address] Monocyte abs 0.53 0.20 - 0.80 K/cumm ISAAC Comment:Testing performed by : [address] [address] Eosinophil abs 0.27 0.00 - 0.50 K/cumm ISAAC Comment:Testing performed by : [address] [address] Basophil abs 0.03 0.00 - 0.10 K/cumm [facility] Comment:Testing performed by : [address] [address] Neutrophil pct 61.1 % [facility] Comment: Interpretive Data Percent cell count reference ranges are not reported, since discordance with absolute values may lead to misinterpretation of CBC data. Current Interpretive Data was last revised on 2018. Testing performed by: [address] [address] Imm gran pct 0.5 % [facility] Comment: Interpretive Data Percent cell count reference ranges are not reported, since discordance with absolute values may lead to misinterpretation of CBC data. Current Interpretive Data was last revised on 2018. Testing performed by: [address] [address] Lymphocyte pct 15.8 % [facility] Comment: Interpretive Data Percent cell count reference ranges are not reported, since discordance with absolute values may lead to misinterpretation of CBC data. Current Interpretive Data was last revised on 2018. Testing performed by: [address] [address] Monocyte pct 14.4 % [facility] Comment: Interpretive Data Percent cell count reference ranges are not reported, since discordance with absolute values may lead to misinterpretation of CBC data. Current Interpretive Data was last revised on 2018. Testing performed by: [address] [address] Eosinophil pct 7.4 % [facility] Comment: Interpretive Data Percent cell count reference ranges are not reported, since discordance with absolute values may lead to misinterpretation of CBC data. Current Interpretive Data was last revised on 2018. Testing performed by: [address] [address] Basophil pct 0.8 % [facility] Comment: Interpretive Data Percent cell count reference ranges are not reported, since discordance with absolute values may lead to misinterpretation of CBC data. Current Interpretive Data was last revised on 2018. Testing performed by: [address] [address] Blood 05/11/2025 9:00 AM CDT 05/11/2025 9:03 AM CDT Nena Cano LAB BLOOD ORDERABLES Final Result Performing Organization Address City/[facility] Co de Phone Number DAYANA[address] [place] [address] * Ferritin (05/11/2025 9:00 AM CDT) Ferritin 71 30 - 400 ng/mL Comment:Testing performed by : [address] [address] Blood 05/11/2025 9:00 AM CDT 05/11/2025 9:35 AM CDT Nena Cano SMALL ENGINE MECHANIC LAB BLOOD ORDERABLES Final Result Performing Organization Address City/[facility] Co de Phone Number DAYANA[address] [place] [address] * (ABNORMAL) Iron profile w/ IBC (05/11/2025 9:00 AM CDT) Iron 73 50 - 150 mcg/dL Comment:Testing performed by : [address] [address] TIBC 241(L) 250 - 400 mcg/dL ISAAC SERNA Comment:Testing performed by : [address] [address] Transferrin saturation 30 20 - 50 % ISAAC Comment:Testing performed by : [address] [address] Blood 05/11/2025 9:00 AM CDT 05/11/2025 9:35 AM CDT us Nena Oleary Lorenzocleo SMALL ENGINE MECHANIC LAB BLOOD ORDERABLES Final Result ISAAC [address] [facility] Department [place] [address] * (ABNORMAL) CBC with auto differential (05/11/2025 9:00 AM CDT) WBC 3.67(L) 3.80 - 9.90 K/cumm Comment:Testing performed by : [address] [address] Hgb 8.0(L) 13.0 - 17.5 g/dL ISAAC Comment:Testing performed by : [address] [address] Hct 26.0(L) 38.9 - 50.3 % ISAAC Comment:Testing performed by : [address] [address] Plt 184 150 - 400 K/cumm ISAAC Comment:Testing performed by : [address] [address] MPV 8.6(L) 9.1 - 12.3 fL ISAAC Comment:Testing performed by : [address] [address] RBC 2.53(L) 4.30 - 5.80 M/cumm ISAAC Comment:Testing performed by : [address] [address] MCV 102.8(H) 81.3 - 96.4 fL ISAAC Comment:Testing performed by : [address] [address] MCH 31.6 27.1 - 33.3 pg ISAAC SERNA Comment:Testing performed by : [address] [address] MCHC 30.8(L) 32.3 - 35.7 g/dL ISAAC Comment:Testing performed by : [address] [address] RDW CV 17.3(H) 11.1 - 14.9 % ISAAC SERNA Comment:Testing performed by : [address] [address] RDW SD 65.1(H) 35.7 - 48.1 fL ISAAC SERNA Comment:Testing performed by : [address] [address] NRBC abs 0.00 0.00 - 0.01 K/cumm ISAAC SERNA Comment:Testing performed by : [address] [address] ANC Prelim 2.24 1.50 - 6.50 K/cumm ISAAC SERNA Comment: Interpretive Data The rapid ANC is a preliminary automated count and may vary from the final ANC (Neut Abs) reported in the WBC differential that follows. Current interpretive data was last revised 2025. Testing performed by: [address] [address] Blood 05/11/2025 9:00 AM CDT 05/11/2025 9:03 AM CDT us Nena Cano SMALL ENGINE MECHANIC LAB BLOOD ORDERABLES Final Result ISAAC SERNA [address] [facility] Department [place] [address] * (ABNORMAL) Reticulocyte Count (05/11/2025 9:00 AM CDT) Retics, absolute 105(H) 20 - 87 K/cumm Comment:Testing performed by : [address] [address] Retics 4.1(H) 0.4 - 2.9 % ISAAC SERNA Comment:Testing performed by : [address] [address] Reticulocyte Hgb 34.4 30.5 - 38.0 pg ISAAC SERNA Comment:Testing performed by : [address] [address] Blood 05/11/2025 9:00 AM CDT 05/11/2025 9:03 AM CDT Nena Cano SMALL ENGINE MECHANIC LAB BLOOD ORDERABLES Final Result ISAAC MH [address] [facility] Department [place] [address] documented in this encounter Visit Diagnoses Diagnosis Anemia, unspecified type History of pulmonary embolism Personal history of venous thrombosis and embolism documented in this encounter Care Teams Industrial Maintenance Instructor Relationship Specialty Start Date End Date Jas Alcala MD [address] [place] [address] PCP - General Internal Medicine 01/04/25 Lucio Rosas MD [address] [facility] [address] [place] [address] Consulting Physician Gastroenterology 11/28/24 Bianca Hunter MD [address] [facility] [address] [place] [address] Medical Oncologist/Manufacturing Production Technician Medical Oncology 12/07/24 Hero Pinedo MD [address] [place] [address] Radiation Oncologist Radiation Oncology 12/28/24 Lon Tomas MD [address] [place] [address] Consulting Physician Urology 01/04/25 Jaycee Teresa MD [address] [place] [address] Consulting Physician Cardiology 01/09/25 documented as of this encounter
--- OUTSIDE RECORDS SUMMARY | 2025-05-12 11:51 | XMS_ITS | Encounter Summary ---
Author Organization [facility] Healthcare Address [address] [place] [address] Care Team Providers Care Recruiting Internship Name Role Phone Jas Alcala MD Primary Care Provider + [phone] Lucio Rosas MD Unavailable Bianca Hunter MD Unavailable + [phone] Hero Pinedo MD Unavailable [phone] Jas Alcala MD Primary Care Provider + [phone] Lon Tomas MD Unavailable [phone] Jaycee Teresa MD Unavailable [phone] Encounter Details Date Type Department Care Team (Late st Contact Info) Description 05/07/2022 Orders Only [facility] Cardiac Catheterization Lab [address] [place] [address] Bryon Potter MD [address] [place], [place] [id number] Social History Tobacco Use Types Packs/Day Years [...] on file 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 Gender Identity Not on file Sexual Orientation Not on file 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 [address] [place] [id number] Consulting Physician Gastroenterology 11/28/24 Bianca Hunter MD [facility] [facility] [address] [place] [address] Medical Oncologist/Sprinkler Worker Medical Oncology 12/07/24 Hero Pinedo MD [address] [place] [address] Radiation Oncologist Radiation Oncology 12/28/24 Lon Tomas MD [address] [place] [id number] Consulting Physician Urology 01/04/25 Jaycee Teresa MD [address] [place] [address] Consulting Physician Cardiology 01/09/25 documented as of this encounter
--- OUTSIDE RECORDS SUMMARY | 2025-05-12 11:51 | XMS_ITS | Referral Summary ---
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 Role Phone Lucio Rosas MD Unavailable Bianca Hunter MD Unavailable + [phone] Hero Pinedo MD Unavailable [phone] Jas Alcala MD Primary Care Provider + [phone] Lon Tomas MD Unavailable [phone] Jaycee Teresa MD Unavailable [phone] Encounters Date Type Department Care Team Description 5 Telephone [facility] Gastroenterology at [place] [address] [facility] [address] [place] [phone] Lucio Rosas MD 5 9:00 AM CDT Clinical Support [facility] at [address] [address] Anemia, unspecified type; History of pulmonary embolism 5 12:00 PM CDT Infusion [facility] [place] at [address] [place] [phone] Anemia, unspecified type (Primary Dx); History of pulmonary embolism 5 10:43 AM CDT Anesthesia Event [facility] GI Lab [address] [place] [address] Hal Kellogg MD 5 10:30 AM CDT - 5 11:00 AM CDT Surgery [facility] GI Lab [address] [place] [address] Lucio Rosas MD ESOPHAGOGASTRODUODENOSCOPY BIOPSY 5 9:15 AM CDT - 5 11:35 AM CDT Hospital Encounter [facility] GI Lab [address] [place] [address] Lucio Rosas MD Malignant neoplasm of lower third of esophagus (HCC) Discharge Disposition: Discharge to home or self care 5 Telephone [facility] Surgery [address] [place] [address] [place] [phone] Reinaldo Little RMA 5 Orders Only [facility] Surgery [address] [place] [address] [place] [phone] Charlie Juarez MD Malignant neoplasm of lower third of esophagus (HCC) (Primary Dx) 5 Telephone [facility] Oncology [address] [place] [phone] Roseanna Roa 5 9:15 AM CDT Office Visit [facility] Surgery [address] [place] [address] [address] [place] [address] Charlie Juarez MD Malignant neoplasm of lower third of esophagus (HCC) (Primary Dx) 5 10:45 AM CDT Office Visit [facility] Oncology [address] [place] [address] [address] [place] [address] Bianca Hunter MD Malignant neoplasm of lower third of esophagus (HCC) (Primary Dx) 5 9:00 AM CDT Clinical Support [facility] at [address] [address] Anemia, unspecified type; History of pulmonary embolism; Malignant neoplasm of lower third of esophagus (HCC) 5 12:00 PM CDT Infusion [facility] at [address] [place] [address] Anemia, unspecified type (Primary Dx); History of pulmonary embolism 5 Orders Only [facility] Medical Group Gastroenterology at [address] [place] [address] Lucio Rosas MD Malignant neoplasm of lower third of esophagus (HCC) (Primary Dx) 5 2:30 PM CDT Clinical Support [facility] Medical Office Building 2 Radiation Oncology [address] [place] [address] Malignant neoplasm of lower third of esophagus (HCC) (Primary Dx) 5 9:00 AM CDT Clinical Support [facility] at [address] [address] Anemia, unspecified type; History of pulmonary embolism 5 12:00 PM CDT Infusion [facility] at [address] [place] [address] Anemia, unspecified type (Primary Dx); History of pulmonary embolism 5 10:00 AM CDT Office Visit [facility] Building 2 Radiation Oncology [address] [place] [phone] Hero Pinedo MD Malignant neoplasm of lower third of esophagus (HCC) (Primary Dx) 5 8:09 AM CDT - 5 11:59 PM CDT Hospital Encounter [facility] [address] [place] [address] Malignant neoplasm of lower third of esophagus (HCC) Discharge Disposition: Discharge to home or self care 5 10:45 AM CDT Infusion [facility] at [address] [place] [address] Malignant neoplasm of lower third of esophagus (HCC) (Primary Dx); Anemia, unspecified type 5 Orders Only [facility] Physicians [facility] Oncology [address] [place] [phone] Meme Dean, RN Anemia, unspecified type (Primary Dx) 5 9:45 AM CDT Clinical Support [facility] at [address] [address] Anemia, unspecified type; History of pulmonary embolism 5 Telephone [facility] [place] at [address] [phone] Francie Hassan, WILBER 5 Orders Only [facility] Hematology [address] [place] [phone] Gertrude Zhang Anemia, unspecified type (Primary Dx) 5 9:00 AM CDT Clinical Support [facility] at [address] [address] Anemia, unspecified type; History of pulmonary embolism 5 Telephone [facility] at [address] [phone] Lalitha Salcedo, WILBER 5 9:00 AM CDT Clinical Support [facility] at [address] [address] Anemia, unspecified type; History of pulmonary embolism 5 Telephone [facility] Oncology [address] [place] [phone] Georgette Velasco RN 5 12:30 PM CDT Clinical Support [facility] at [address] [address] Malignant neoplasm of lower third of esophagus (HCC); Anemia, unspecified type; History of pulmonary embolism 5 1:00 PM CDT Office Visit [facility] Oncology [address] [place] [phone] Bianca Hunter MD Malignant neoplasm of lower third of esophagus (HCC) (Primary Dx) 5 Completion of Therapy [facility] Building 2 Radiation Oncology [address] [place] [address] Hero Pinedo MD 5 Telephone [facility] Oncology [address] [place] [phone] Bianca Hunter MD INR results 5 Orders Only RAD ONC TREATMENTS Miscellaneou s, Not In File 5 11:30 AM CDT Treatment [facility] Building 2 Radiation Oncology [address] [place] [address] Hero Pinedo MD 5 Telephone [facility] Bone Marrow Transplant [address] [place] [phone] Ceci Antony NP 5 3:00 PM CDT Lab [facility] at [address] [address] 5 OTV [facility] Building 2 Radiation Oncology [address] [place] [address] Hero Pinedo MD 5 Orders Only RAD ONC TREATMENTS Miscellaneou s, Not In File 5 12:30 PM CDT Infusion [facility] [place] at [address] [phone] Malignant neoplasm of lower third of esophagus (HCC) (Primary Dx) 5 11:30 AM CDT Treatment [facility] Building 2 Radiation Oncology [address] [place] [phone] 5 Orders Only RAD ONC TREATMENTS Miscellaneou s, Not In File 5 9:15 AM CDT Clinical Support [facility] at [address] [address] Malignant neoplasm of lower third of esophagus (HCC); Abnormal coagulation profile 5 9:45 AM CDT Office Visit [facility] Physicians [facility] Oncology [address] [place] [address] [address] [place] [address] Bianca Hunter MD Malignant neoplasm of lower third of esophagus (HCC) (Primary Dx); Abnormal coagulation profile 5 11:30 AM CDT Treatment [facility] Building 2 Radiation Oncology [address] [place] [phone] Hero Pinedo MD 5 11:35 AM CDT Treatment [facility] Office Building 2 Radiation Oncology [address] [place] [phone] Hero Pinedo MD 5 Orders Only [facility] Building 2 Radiation Oncology [address] [place] [phone] Hero Pinedo MD 5 Orders Only [facility] Oncology [address] [place] [phone] Meme Dean RN 5 Orders Only [facility] Office Building 2 Radiation Oncology [address] [place] [phone] Hero Pinedo MD Malignant neoplasm of lower third of esophagus (HCC) (Primary Dx) 5 Orders Only [facility] Building 2 Radiation Oncology [address] [place] [address] Hero Pinedo MD 5 Orders Only RAD ONC TREATMENTS Miscellaneou s, Not In File 5 12:15 PM CDT Infusion [facility] at [address] [phone] Malignant neoplasm of lower third of esophagus (HCC) (Primary Dx) 5 Orders Only [facility] Building 2 Radiation Oncology [address] [place] [address] Hero Pinedo MD Malignant neoplasm of lower third of esophagus (HCC) (Primary Dx) 5 11:30 AM CDT Treatment [facility] 2 Radiation Oncology [address] [place] [address] 5 Orders Only RAD ONC TREATMENTS Miscellaneou s, Not In File 5 11:30 AM CDT Treatment [facility] Building 2 Radiation Oncology [address] [place] [phone] 5 Orders Only RAD ONC TREATMENTS Miscellaneou s, Not In File 5 Orders Only [facility] Physicians [facility] Oncology [address] [place] [address] [address] [place] [address] Meme Dean RN 5 11:30 AM CDT Infusion [facility] at [facility] [address] [place] [address] [address] [place] [address] Malignant neoplasm of lower third of esophagus (HCC) (Primary Dx) 5 Orders Only [facility] Physicians [facility] Oncology [address] [place] [address] [address] [place] [address] Meme Dean, RN Malignant neoplasm of lower third of esophagus (HCC) (Primary Dx) 5 2:30 PM CDT Treatment [facility] 2 Radiation Oncology [address] [place] [address] 5 OTV [facility] Building 2 Radiation Oncology [address] [place] [phone] Hero Pinedo MD 5 Orders Only RAD ONC TREATMENTS Miscellaneou s, Not In File 5 11:30 AM CDT Treatment [facility] Building 2 Radiation Oncology [address] [place] [address] 5 Orders Only RAD ONC TREATMENTS Miscellaneou s, Not In File 5 12:00 PM CDT Infusion [facility] at [address] [place] [phone] Anemia, unspecified type (Primary Dx); History of pulmonary embolism 5 1:30 PM CDT Clinical Support [facility] Building 2 Radiation Oncology [address] [place] [address] Malignant neoplasm of lower third of esophagus (HCC) (Primary Dx) 5 11:00 AM CDT Treatment [facility] 2 Radiation Oncology [address] [place] [address] 5 4:00 PM CDT Clinical Support [facility] at [address] [address] Anemia, unspecified type; History of pulmonary embolism; Malignant neoplasm of lower third of esophagus (HCC) 5 Orders Only RAD ONC TREATMENTS Miscellaneou s, Not In File 5 11:30 AM CDT Treatment [facility] Building 2 Radiation Oncology [address] [place] [address] 5 Orders Only RAD ONC TREATMENTS Miscellaneou s, Not In File 5 9:30 AM CDT Office Visit [facility] Otolaryngology [address] [place] [phone] Jairo Carr MD Mass of left parotid gland (Primary Dx); Malignant neoplasm of lower third of esophagus (HCC) 5 11:30 AM CDT Treatment [facility] Building 2 Radiation Oncology [address] [place] [phone] 5 Orders Only RAD ONC TREATMENTS Miscellaneou s, Not In File 5 11:30 AM CDT Treatment [facility] 2 Radiation Oncology [address] [place] [address] 5 OTV [facility] Building 2 Radiation Oncology [address] [place] [address] Hero Pinedo MD 5 Orders Only RAD ONC TREATMENTS Miscellaneou s, Not In File 5 11:30 AM CDT Treatment [facility] Building 2 Radiation Oncology [address] [place] [phone] from Last 3 Months Allergies Active Allergy [...] times a day 0 Active warfarin (COUMADIN) 2.5 mg tabletIndication s:Anemia, unspecified type Last May 04 Active magnesium oxide (MAG-OX) 400 mg (241.3 [...] times a day 4 Active nystatin ointment 4 Active albuterol HFA (PROVENTIL HFA,VENTOLIN HFA,PROAIR HFA) 90 mcg/actuation inhaler Inhale 2 puffs every 6 (six) hours as needed for wheezing Active pantoprazole DR (PROTONIX) 40 mg EC tablet TAKE 1 TABLET BY MOUTH 2 TIMES A DAY BEFORE BREAKFAST AND DINNER. 60 tablet 3 5 Active oxyCODONE (ROXICODONE) 5 mg immediate release tabletIndication s:Pain Take 1 tablet (5 mg total) by mouth every 6 (six) hours as needed for pain 30 tablet 5 Active vibegron (Gemtesa) 75 mg tablet Gemtesa 75 mg tablet Active sucralfate (CARAFATE) suspension 1 gram/10 mL Take 10 mL (1 g total) by mouth 4 (four) times a day (with meals and nightly) Take 1 hour before meals and at bedtime 1200 mL 11 5 05/10/20 26 Active Active Problems Patient Care Coordination No te [...] He also has a history of an AL and PE. 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 Pathology with Barretts esophagus, indefinite for dysplasia. Repeat EGD November 2024 with Barretts esophagus, pathology with high-grade dysplasia. -Continue pantoprazole 40 mg p.o. b.i.d. 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 -Consider flex sig with APC, patient advised to call office if rectal bleeding gets worse Eosinophilia 02/22/2024 Iron deficiency anemia, unspecified 02/22/2024 Anemia 02/22/2024 VT (ventricular tachycardia) 05/09/2022 Overview (05/09/2022): Added automatically from request for surgery [id number] Lower urinary tract symptoms (LUTS) 05/24/2020 Malignant neoplasm of prostate 04/25/2013 Immunizations Immunization Administration Dates Next Due Influenza, Unspecified 08/02/2018 Social History Tobacco Use Types Packs/Day Years Used Date Smoking Tobacco: Former Cigarettes 1 25 1 - 2019 Smokeless Tobacco: Never Tobacco Cessation:Counseling [...] on file Legal Sex Male 9:38 AM 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 Gender Identity Not on file Sexual Orientation Not on file Occupation Industry Job Start Date Job End Date [employer] Not on file Not on file Not [...] 6.4 oz) 025 11:51 AM CDT Height 180.3 cm (5' 11) 02/14/2025 9:32 AM CDT Body Mass Index 36.32 02/14/2025 9:32 AM CDT Plan of Treatment Not on file Medical Devices Implanted Type 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 Device Identifier Shelf Expiration Date Model / Serial / Lot Screws And Rods Spine Lumbar [employer] Power Port 8fr [id number] - [id number] Implanted:Qty: 1 on 01/11/2025 by Linda Cardenas PA at [facility] [employer] 08/29/2029 [id number] / / [id number] Procedures Procedure Name Priority Date/Time Associated Diagnosis Comments TRANSFUSE RED BLOOD CELLS Timed 2024 12:04 PM CDT Anemia, unspecified type PREPARE RBC STAT 05/11/2025 10:01 AM CDT Anemia, unspecified type CROSSMATCH Routine 05/11/2025 9:00 AM CDT Anemia, unspecified type History of pulmonary embolism ANTIBODY SCREEN Routine 05/11/2025 9:00 AM CDT Anemia, unspecified type History of pulmonary embolism ABO/RH Routine 05/11/2025 9:00 AM CDT Anemia, unspecified type History of pulmonary embolism DIFFERENTIAL AUTO Routine 05/11/2025 9:00 AM CDT Anemia, unspecified type History of pulmonary embolism FERRITIN Routine 05/11/2025 9:00 AM CDT Anemia, unspecified type History of pulmonary embolism IRON PROFILE W/ IBC Routine 05/11/2025 9:00 AM CDT Anemia, unspecified type History of pulmonary embolism CBC WITH AUTO DIFFERENTIAL Routine 05/11 9:00 AM CDT Anemia, unspecified type History of pulmonary embolism RETICULOCYTES Routine 05/11/2025 9:00 AM CDT Anemia, unspecified type History of pulmonary embolism TYPE AND SCREEN Routine 05/11/2025 9:00 AM CDT Anemia, unspecified type History of pulmonary embolism EGD 05/10/2025 10:45 AM CDT ESOPHAGOGASTRODUODENOSCOPY BIOPSY 05/10/2025 10:43 AM CDT Malignant neoplasm of lower third of esophagus (HCC) POC BLOOD GAS AND CHEMISTRIE S, VENOUS Routine 05/10/2025 10:13 AM CDT TRANSFUSE RED BLOOD CELLS Routine 2024 12:16 PM CDT Anemia, unspecified type PREPARE RBC Routine 04/26/2025 9:45 AM CDT Anemia, unspecified type CROSSMATCH Routine 04/26/2025 9:01 AM CDT Anemia, unspecified type History of pulmonary embolism EGFR Routine 04/26/2025 9:01 AM CDT Malignant neoplasm of lower third of esophagus (HCC) DIFFERENTIAL AUTO Routine 04/26/2025 9:01 AM CDT Anemia, unspecified type History of pulmonary embolism ANTIBODY SCREEN Routine 04/26/2025 9:01 AM CDT Anemia, unspecified type History of pulmonary embolism ABO/RH Routine 04/26/2025 9:01 AM CDT Anemia, unspecified type History of pulmonary embolism COMPREHENSIVE METABOLIC PANEL Routine 9:01 AM CDT Malignant neoplasm of lower third of esophagus (HCC) FERRITIN Routine 04/26/2025 9:01 AM CDT Anemia, unspecified type History of pulmonary embolism IRON PROFILE W/ IBC Routine 04/26/2025 9:01 AM CDT Anemia, unspecified type History of pulmonary embolism TYPE AND SCREEN Routine 04/26/2025 9:01 AM CDT Anemia, unspecified type History of pulmonary embolism CBC WITH AUTO DIFFERENTIAL Routine 04/26 9:01 AM CDT Anemia, unspecified type History of pulmonary embolism RETICULOCYTES Routine 04/26/2025 9:01 AM CDT Anemia, unspecified type History of pulmonary embolism TRANSFUSE RED BLOOD CELLS Timed 2024 12:06 PM CDT Anemia, unspecified type PREPARE RBC STAT 04/12/2025 10:48 AM CDT Anemia, unspecified type CROSSMATCH Routine 04/12/2025 9:09 AM CDT Anemia, unspecified type History of pulmonary embolism DIFFERENTIAL AUTO Routine 04/12/2025 9:09 AM CDT Anemia, unspecified type History of pulmonary embolism ANTIBODY SCREEN Routine 04/12/2025 9:09 AM CDT Anemia, unspecified type History of pulmonary embolism ABO/RH Routine 04/12/2025 9:09 AM CDT Anemia, unspecified type History of pulmonary embolism CBC WITH AUTO DIFFERENTIAL Routine 04/12 9:09 AM CDT Anemia, unspecified type History of pulmonary embolism RETICULOCYTES Routine 04/12/2025 9:09 AM CDT Anemia, unspecified type History of pulmonary embolism FERRITIN Routine 04/12/2025 9:09 AM CDT Anemia, unspecified type History of pulmonary embolism IRON PROFILE W/ IBC Routine 04/12/2025 9:09 AM CDT Anemia, unspecified type History of pulmonary embolism TYPE AND SCREEN Routine 04/12/2025 9:09 AM CDT Anemia, unspecified type History of pulmonary embolism PET/CT FDG SKULL TO THIGH Schedule Routine, Read Routine (OP Routine) 04/10/2025 9:40 AM CDT Malignant neoplasm of lower third of esophagus (HCC) POCT GLUCOSE DEVICE Routine 04/10/2025 8:22 AM CDT DIFFERENTIAL AUTO Routine 04/04/2025 10:10 AM CDT Anemia, unspecified type History of pulmonary embolism RETICULOCYTES Routine 04/04/2025 10:10 AM CDT Anemia, unspecified type History of pulmonary embolism CBC WITH AUTO DIFFERENTIAL Routine 04/04 10:10 AM CDT Anemia, unspecified type History of pulmonary embolism IRON PROFILE W/ IBC Routine 04/04/2025 10:10 AM CDT Anemia, unspecified type History of pulmonary embolism FERRITIN Routine 04/04/2025 10:10 AM CDT Anemia, unspecified type History of pulmonary embolism DIFFERENTIAL AUTO Routine 03/29/2025 9:10 AM CDT Anemia, unspecified type History of pulmonary embolism FERRITIN Routine 03/29/2025 9:10 AM CDT Anemia, unspecified type History of pulmonary embolism IRON PROFILE W/ IBC Routine 03/29/2025 9:10 AM CDT Anemia, unspecified type History of pulmonary embolism CBC WITH AUTO DIFFERENTIAL Routine 03/29 9:10 AM CDT Anemia, unspecified type History of pulmonary embolism RETICULOCYTES Routine 03/29/2025 9:10 AM CDT Anemia, unspecified type History of pulmonary embolism DIFFERENTIAL AUTO Routine 03/15/2025 9:10 AM CDT Anemia, unspecified type History of pulmonary embolism FERRITIN Routine 03/15/2025 9:10 AM CDT Anemia, unspecified type History of pulmonary embolism IRON PROFILE W/ IBC Routine 03/15/2025 9:10 AM CDT Anemia, unspecified type History of pulmonary embolism CBC WITH AUTO DIFFERENTIAL Routine 03/15 9:10 AM CDT Anemia, unspecified type History of pulmonary embolism RETICULOCYTES Routine 03/15/2025 9:10 AM CDT Anemia, unspecified type History of pulmonary embolism PROTIME-INR Routine 02/28/2025 12:40 PM CDT EGFR STAT 02/28/2025 12:03 PM CDT Malignant neoplasm of lower third of esophagus (HCC) BLOOD SMEAR REVIEW Routine 02/28/2025 12:03 PM CDT Malignant neoplasm of lower third of esophagus (HCC) DIFFERENTIAL AUTO Routine 02/28/2025 12:03 PM CDT Malignant neoplasm of lower third of esophagus (HCC) FERRITIN Routine 02/28/2025 12:03 PM CDT Anemia, unspecified type History of pulmonary embolism IRON PROFILE W/ IBC Routine 02/28/2025 12:03 PM CDT Anemia, unspecified type History of pulmonary embolism RETICULOCYTES Routine 02/28/2025 12:03 PM CDT Anemia, unspecified type History of pulmonary embolism CBC WITH AUTO DIFFERENTIAL Routine 02/28 12:03 PM CDT Malignant neoplasm of lower third of esophagus (HCC) COMPREHENSIVE METABOLIC PANEL STAT 12:03 PM CDT Malignant neoplasm of lower third of esophagus (HCC) RAD ONC ARIA SESSION SUMMARY 11:32 AM CDT PROTIME-INR Routine 02/24/2025 2:55 PM CDT RAD ONC ARIA SESSION SUMMARY 11:43 AM CDT RAD ONC ARIA SESSION SUMMARY 11:42 AM CDT EGFR STAT 02/23/2025 9:31 AM CDT Malignant neoplasm of lower third of esophagus (HCC) DIFFERENTIAL AUTO Routine 02/23/2025 9:31 AM CDT Malignant neoplasm of lower third of esophagus (HCC) PROTIME-INR Routine 02/23/2025 9:31 AM CDT Malignant neoplasm of lower third of esophagus (HCC) Abnormal coagulation profile CBC WITH AUTO DIFFERENTIAL Routine 02/23 9:31 AM CDT Malignant neoplasm of lower third of esophagus (HCC) COMPREHENSIVE METABOLIC PANEL STAT 9:31 AM CDT Malignant neoplasm of lower third of esophagus (HCC) RAD ONC ARIA SESSION SUMMARY 11:38 AM CDT RAD ONC ARIA SESSION SUMMARY 11:29 AM CDT RAD ONC ARIA SESSION SUMMARY 2:36 PM CDT RAD ONC ARIA SESSION SUMMARY 11:23 AM CDT TRANSFUSE RED BLOOD CELLS Timed 2024 11:44 AM CDT Anemia, unspecified type RAD ONC ARIA SESSION SUMMARY 11:15 AM CDT PREPARE RBC Routine 02/15/2025 1:40 PM CDT Anemia, unspecified type CROSSMATCH Routine 02/15/2025 12:27 PM CDT Anemia, unspecified type History of pulmonary embolism EGFR STAT 02/15/2025 12:27 PM CDT Malignant neoplasm of lower third of esophagus (HCC) BLOOD SMEAR REVIEW Routine 02/15/2025 12:27 PM CDT Anemia, unspecified type History of pulmonary embolism DIFFERENTIAL AUTO Routine 02/15/2025 12:27 PM CDT Anemia, unspecified type History of pulmonary embolism ANTIBODY SCREEN Routine 02/15/2025 12:27 PM CDT Anemia, unspecified type History of pulmonary embolism ABO/RH Routine 02/15/2025 12:27 PM CDT Anemia, unspecified type History of pulmonary embolism COMPREHENSIVE METABOLIC PANEL STAT 12:27 PM CDT Malignant neoplasm of lower third of esophagus (HCC) FERRITIN Routine 02/15/2025 12:27 PM CDT Anemia, unspecified type History of pulmonary embolism IRON PROFILE W/ IBC Routine 02/15/2025 12:27 PM CDT Anemia, unspecified type History of pulmonary embolism TYPE AND SCREEN Routine 02/15/2025 12:27 PM CDT Anemia, unspecified type History of pulmonary embolism CBC WITH AUTO DIFFERENTIAL Routine 02/15 12:27 PM CDT Anemia, unspecified type History of pulmonary embolism RETICULOCYTES Routine 02/15/2025 12:27 PM CDT Anemia, unspecified type History of pulmonary embolism RAD ONC ARIA SESSION SUMMARY 11:48 AM CDT RAD ONC ARIA SESSION SUMMARY 11:28 AM CDT RAD ONC ARIA SESSION SUMMARY 11:24 AM CDT RAD ONC ARIA SESSION SUMMARY 09/2025 11:[address] CHEST ABDOMEN PELVIS W CONTRAST Schedule Routine, Read Routine (OP Routine) 12/13/2024 7:09 AM 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 Malignant neoplasm of lower third of esophagus (HCC) COLONOSCOPY 11/17/2024 9:34 AM 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 from Last 3 Months or Most Recently Relevant to Health Maintenance Results * Transfuse RBC (05/11/2025 2:28 PM CDT) Blood Francisco Jones DO BLOOD TRANSFUSION ORDERABLES Final Result * Prepare RBC: 1 Units (05/11/2025 10:01 AM CDT) Units requested 1 Comment:Testing performed by : [address] [address] Units requested Ready ISAAC Comment:Testing performed by : [address] [address] Unit Number [id number] Product code [id number] ISAAC Blood Expiration Date ISAAC Product Blood Type (for scanning) 9140 ISAAC Product Blood Type APOS ISAAC Dispense Status DISPENSED ISAAC Blood 05/11/2025 10:0 1 AM CDT 05/11/2025 10:01 AM CDT us Nena Cano NP BLOOD BANK PRODUCT ORDERABL ES Final Result [facility]AC [address] [facility] [place] [address] * (ABNORMAL) Differential, auto (05/11/2025 9:00 AM CDT) Neutrophil abs 2.24 1.50 - 6.50 K/cumm Comment:Testing performed by : [address] [address] Imm gran abs 0.02 0.00 - 0.10 K/cumm ISAAC Comment:Testing performed by : [address] [address] Lymphocyte abs 0.58(L) 0.80 - 3.30 K/cumm ISAAC Comment:Testing performed by : [address] [address] Monocyte abs 0.53 0.20 - 0.80 K/cumm ISAAC Comment:Testing performed by : [address] [address] Eosinophil abs 0.27 0.00 - 0.50 K/cumm ISAAC Comment:Testing performed by : [address] [address] Basophil abs 0.03 0.00 - 0.10 K/cumm ISAAC Comment:Testing performed by : [address] [address] Neutrophil pct 61.1 % ISAAC Comment: Interpretive Data Percent cell count reference ranges are not reported, since discordance with absolute values may lead to misinterpretation of CBC data. Current Interpretive Data was last revised on 2018. Testing performed by: [address] [address] Imm gran pct 0.5 % ISAAC Comment: Interpretive Data Percent cell count reference ranges are not reported, since discordance with absolute values may lead to misinterpretation of CBC data. Current Interpretive Data was last revised on 2018. Testing performed by: [address] [place]., [address] Lymphocyte pct 15.8 % [facility] Comment: Interpretive Data Percent cell count reference ranges are not reported, since discordance with absolute values may lead to misinterpretation of CBC data. Current Interpretive Data was last revised on 2018. Testing performed by: [address] [address] Monocyte pct 14.4 % ISAAC Comment: Interpretive Data Percent cell count reference ranges are not reported, since discordance with absolute values may lead to misinterpretation of CBC data. Current Interpretive Data was last revised on 2018. Testing performed by: [address] [address] Eosinophil pct 7.4 % ISAAC Comment: Interpretive Data Percent cell count reference ranges are not reported, since discordance with absolute values may lead to misinterpretation of CBC data. Current Interpretive Data was last revised on 2018. Testing performed by: [address] [address] Basophil pct 0.8 % ISAAC Comment: Interpretive Data Percent cell count reference ranges are not reported, since discordance with absolute values may lead to misinterpretation of CBC data. Current Interpretive Data was last revised on 2018. Testing performed by: [address] [address] Blood 05/11/2025 9:00 AM CDT 05/11/2025 9:03 AM CDT Nena Cano MECHANICAL EQUIPMENT TEST ENGINEER LAB BLOOD ORDERABLES Final Result [facility] [address] [facility] [place] [address] * (ABNORMAL) Iron profile w/ IBC (05/11/2025 9:00 AM CDT) Iron 73 50 - 150 mcg/dL Comment:Testing performed by : [address] [address] TIBC 241(L) 250 - 400 mcg/dL ISAAC Comment:Testing performed by : [address] [address] Transferrin saturation 30 20 - 50 % ISAAC Comment:Testing performed by : [address] [address] Blood 05/11/2025 9:00 AM CDT 05/11/2025 9:35 AM CDT Nena Cano NP LAB BLOOD ORDERABLES Final Result [facility] [address] [facility] [place] [address] * (ABNORMAL) CBC with auto differential (05/11/2025 9:00 AM CDT) WBC 3.67(L) 3.80 - 9.90 K/cumm Comment:Testing performed by : [address] [address] Hgb 8.0(L) 13.0 - 17.5 g/dL ISAAC Comment:Testing performed by : [address] [address] Hct 26.0(L) 38.9 - 50.3 % ISAAC Comment:Testing performed by : [address] [address] Plt 184 150 - 400 K/cumm ISAAC Comment:Testing performed by : [address] [address] MPV 8.6(L) 9.1 - 12.3 fL [facility]AC Comment:Testing performed by : [address] [address] RBC 2.53(L) 4.30 - 5.80 M/cumm ISAAC Comment:Testing performed by : [address] [address] MCV 102.8(H) 81.3 - 96.4 fL ISAAC Comment:Testing performed by : [address] [address] MCH 31.6 27.1 - 33.3 pg ISAAC Comment:Testing performed by : [address] [address] MCHC 30.8(L) 32.3 - 35.7 g/dL ISAAC SERNA Comment:Testing performed by : [address] [address] RDW CV 17.3(H) 11.1 - 14.9 % [facility]AC Comment:Testing performed by : [address] [address] RDW SD 65.1(H) 35.7 - 48.1 fL [facility]AC Comment:Testing performed by : [address] [address] NRBC abs 0.00 0.00 - 0.01 K/cumm ISAAC Comment:Testing performed by : [address] [address] ANC Prelim 2.24 1.50 - 6.50 K/cumm ISAAC Comment: Interpretive Data The rapid ANC is a preliminary automated count and may vary from the final ANC (Neut Abs) reported in the WBC differential that follows. Current interpretive data was last revised 2025. Testing performed by: [address] [address] Blood 05/11/2025 9:00 AM CDT 05/11/2025 9:03 AM CDT Nena Cano NP LAB BLOOD ORDERABLES Final Result [facility] [address] [facility] Department of Laboratories [place], [place] [id number] * ABO/Rh (05/11/2025 9:00 AM CDT) ABO/Rh A Positive Comment:Testing performed by : [address] [address] Blood 05/11/2025 9:00 AM CDT 05/11/2025 9:33 AM CDT Narrative IS[facility]AC SERNA - 05/11/2025 9:59 AM CDT Has the patient had Daratumumab or Isatuximab in the past 6 months?->Unknown Nena Cano MECHANICAL EQUIPMENT TEST ENGINEER LAB BLOOD BANK TEST ORDERAB LES Final Result Performing Organization Address [facility] Co de Phone Number ISAAC [address] [place] [address] * (ABNORMAL) Reticulocyte Count (05/11/2025 9:00 AM CDT) [facility] Retics, absolute 105(H) 20 - 87 K/cumm Comment:Testing performed by : [address] [address] Retics 4.1(H) 0.4 - 2.9 % ISAAC Comment:Testing performed by : [facility], [address] [place] [address]., [address] Reticulocyte Hgb 34.4 30.5 - 38.0 pg ISAAC Comment:Testing performed by : [facility], [address] [place] [address]., [address] Blood 05/11/2025 9:00 AM CDT 05/11/2025 9:03 AM CDT Nena Cano NP LAB BLOOD ORDERABLES Final Result Performing Organization Address [facility] de Phone Number [address] [place] [address] * Crossmatch (05/11/2025 9:00 AM CDT) [facility] Crossmatch Compatible [facility] Unit number for crossmatch [id number] [facility] Blood 05/11/2025 9:00 AM CDT 05/11/2025 9:33 AM CDT Jas Alcala MD LAB BLOOD BANK TEST ORDERABL ES Final Result Performing Organization Address [facility] Co de Phone Number [address] [place] [address] * Antibody screen (05/11/2025 9:00 AM CDT) Pathologist [facility] Divina, indirect, Gel Interpretation Negative ABSC Comment:Testing performed by : [address] [address] Blood 05/11/2025 9:00 AM CDT 05/11/2025 9:33 AM CDT Narrative [facility] - 05/11/2025 10:12 AM CDT Has the patient had Daratumumab or Isatuximab in the past 6 months?->Unknown Nena Cano MECHANICAL EQUIPMENT TEST ENGINEER LAB BLOOD BANK TEST ORDERAB LES Final Result Performing Organization Address City/[facility]/ZIP Co de Phone Number [address] [address] * Ferritin (05/11/2025 9:00 AM CDT) [facility] Ferritin 71 30 - 400 ng/mL Comment:Testing performed by : [address] [address] Blood 05/11/2025 9:00 AM CDT 05/11/2025 9:35 AM CDT Nena Cano LAB BLOOD ORDERABLES Final Result Performing Organization Address City/[facility]/ZIP Co de Phone Number [address] [address] * EGD (05/10/2025 10:45 AM CDT) Anatomical Region Laterality Modality Other Narrative Procedure Note Lucio Rosas MD - 05/10/2025 10:45 AM CDT [facility] GI ENDOSCOPY Patient Name: Marshall Olson Procedure Date: 05/10/2025 10:45 AM Date of : 1950 Admit Type: Outpatient Age: 75 Gender: Male Attending MD: Lucio Rosas M.D. Room: [facility] ENDOSCOPY ROOM 03 Note Status: Finalized Procedure: Upper GI endoscopy Indications: Abnormal PET scan of the GI tract, History of esophageal cancer Referring MD: Providers: Lucio Rosas M.D. Medicines: [...] scope was passed under direct vision. The GIF-Q180 upper endoscope was introduced through the mouth, and advanced to the second part of duodenum. The upper GI endoscopy was accomplished without difficulty. The patient tolerated the procedure well. Findings: Localized very subtle nodularity were found at the gastroesophageal junction at site of previous esophageal cancer, overall this is significantly decreased in size. Biopsies were taken with a coldforceps for histology. Two esophageal ulcers with no bleeding and no stigmata of recent bleeding were found 35 cm from the incisors. The largest lesion was15 mm in largest dimension. Biopsies were taken with a cold forceps for histology. A 2 cm hiatal hernia was present. The entire examined stomach was normal. The examined duodenum was normal. The cardia and gastric fundus were normal on retroflexion. The exam was otherwise without abnormality. Impression: - Localized subtle nodular mucosa in the esophagusat site of previous esophageal cancer, overall significantly decreased in size. Biopsied. - Esophageal ulcers with no bleeding and nostigmata of recent bleeding. Biopsied. - 2 cm hiatal hernia. - Normal stomach. - Normal examined duodenum. - The examination was otherwise normal. Recommendation: - Await pathology results. - Patient has a contact number available for emergencies. The signs and symptoms of potential delayed complications were discussed with thepatient. Return to normal activities tomorrow. Written discharge instructions were provided to thepatient. - GERD RECOMMENDATIONS given include: anti-reflux maneuvers, avoid acidic foods like oranges and tomatoes, avoidance of spicy foods, avoid eating3-4 hours before bed, elevation of the head of the bed, and weight loss. - Continue pantoprazole 40 mg p.o. b.i.d.. Start Carafate suspension 1 g p.o. 4 times a day. - Repeat upper endoscopy in 2 months to checkhealing. - Schedule flexible sigmoidoscopy for treatment of radiation proctitis - Patient was advised to call GI office and make an appointment if symptoms persist. Lucio Rosas M.D. Lucio Rosas M.D. 05/10/2025 11:04:23 AM . Number of Addenda: 0 Note Initiated On: 05/10/2025 10:45 AM Recognized by the [employer] [employer] for promoting quality in endoscopy us Lucio Rosas MD ENDOSCOPY PROCEDURES Final Resul t * (ABNORMAL) POC Blood Gas and Chemistries, Venous - (05/10/2025 10:13 AM CDT) pH,kwame POC 7.35 7.32 - 7.43 pCO2, kwame POC 40 40 - 50 mmHg [facility] pO2,kwame POC 32 mmHg [facility] Comment: Interpretive Data No reference range established. Current interpretive data was last revised 2020. HCO3, kwame (Calc) POC 22 20 - 30 mmol/L [facility] Base excess, kwame POC -3 mmol/L [facility] Comment: Interpretive Data No reference range established. Current interpretive data was last revised 2020. Hemoglobin, kwame POC 9.2(L) 13.0 - 17.5 g/dL [facility] Hematocrit, kwame POC 27.0(L) 38.9 - 50.3 % [facility] Sodium, kwame POC 141 135 - 145 mmol/L [facility] Potassium, kwame POC 4.4 3.3 - 4.9 mmol/L [facility] Comment: Interpretive Data This method is not able to assess for hemolysis, which may falsely increase potassium concentrations. If further testing is needed to evaluate this result, consider in-laboratory plasma potassium. Current Interpretive Data was last revised on 2022. Glucose, kwame POC 86 70 - 199 mg/dL [facility] Ionized Calcium, kwame POC 5.10 4.50 - 5.10 mg/dL [facility] Blood 05/10/2025 10:1 3 AM CDT 05/10/2025 10:13 AM CDT Lucio Rosas MD LAB POCT ORDERABLES - DEVICE Fin al Result [facility] [address] [facility] Department [place] [address] * Transfuse RBC (04/26/2025 2:25 PM CDT) Blood Bianca Hunter MD BLOOD TRANSFUSION OR DERABLES Final Result * Prepare RBC: 1 Units (04/26/2025 9:45 AM CDT) Pathologist [facility] Units requested 1 Comment:Testing performed by : [address] [address] Units requested Ready [facility] Comment:Testing performed by : [address] [place]., [address] Unit Number [id number] Product code [id number] ISAAC Blood Expiration Date 291268995019 ISAAC Product Blood Type (for scanning) 6200 ISAAC Product Blood Type APOS ISAAC SERNA Dispense Status DISPENSED ISAAC SERNA Blood 04/26/2025 9:45 AM CDT 04/26/2025 9:45 AM CDT us Bianca Hunter MD BLOOD BANK PRODUCT O RDERABLES Final Result [facility] [address] [facility] Department [place] [address] * (ABNORMAL) eGFR (04/26/2025 9:01 AM CDT) eGFR 45(L) >=60 mL/min/1. 73 m2 Comment: [...] was last reviewed 2021. Testing performed by: [address] [address] Blood 04/26/2025 9:01 AM CDT 04/26/2025 9:02 AM CDT Bianca Hunter MD LAB BLOOD ORDERABLES Final Result [facility] [address] [facility] Department [place] [address] * (ABNORMAL) Differential, auto (04/26/2025 9:01 AM CDT) Neutrophil abs 2.29 1.50 - 6.50 K/cumm Comment:Testing performed by : [address] [address] Imm gran abs 0.02 0.00 - 0.10 K/cumm ISAAC Comment:Testing performed by : [address] [address] Lymphocyte abs 0.68(L) 0.80 - 3.30 K/cumm ISAAC Comment:Testing performed by : [address] [address] Monocyte abs 0.57 0.20 - 0.80 K/cumm [facility]AC Comment:Testing performed by : [address] [address] Eosinophil abs 0.26 0.00 - 0.50 K/cumm [facility]AC Comment:Testing performed by : [address] [address] Basophil abs 0.03 0.00 - 0.10 K/cumm ISAAC Comment:Testing performed by : [address] [address] Neutrophil pct 59.4 % [facility] Comment: Interpretive Data Percent cell count reference ranges are not reported, since discordance with absolute values may lead to misinterpretation of CBC data. Current Interpretive Data was last revised on 2018. Testing performed by: [address] [address] Imm gran pct 0.5 % [facility] Comment: Interpretive Data Percent cell count reference ranges are not reported, since discordance with absolute values may lead to misinterpretation of CBC data. Current Interpretive Data was last revised on 2018. Testing performed by: [address] [address] Lymphocyte pct 17.7 % [facility] Comment: Interpretive Data Percent cell count reference ranges are not reported, since discordance with absolute values may lead to misinterpretation of CBC data. Current Interpretive Data was last revised on 2018. Testing performed by: [address] [address] Monocyte pct 14.8 % [facility] Comment: Interpretive Data Percent cell count reference ranges are not reported, since discordance with absolute values may lead to misinterpretation of CBC data. Current Interpretive Data was last revised on 2018. Testing performed by: [address] [address] Eosinophil pct 6.8 % [facility] Comment: Interpretive Data Percent cell count reference ranges are not reported, since discordance with absolute values may lead to misinterpretation of CBC data. Current Interpretive Data was last revised on 2018. Testing performed by: [address] [address] Basophil pct 0.8 % [facility] Comment: Interpretive Data Percent cell count reference ranges are not reported, since discordance with absolute values may lead to misinterpretation of CBC data. Current Interpretive Data was last revised on 2018. Testing performed by: [address] [address] Blood 04/26/2025 9:01 AM CDT 04/26/2025 9:02 AM CDT Nena Cano MECHANICAL EQUIPMENT TEST ENGINEER LAB BLOOD ORDERABLES Final Result [facility] [address] [facility] Department [place] [address] * (ABNORMAL) Iron profile w/ IBC (04/26/2025 9:01 AM CDT) Iron 75 50 - 150 mcg/dL Comment:Testing performed by : [address] [address] TIBC 231(L) 250 - 400 mcg/dL [facility] Comment:Testing performed by : [address] [address] Transferrin saturation 32 20 - 50 % [facility] Comment:Testing performed by : [address] [address] Blood 04/26/2025 9:01 AM CDT 04/26/2025 9:51 AM CDT Nena Cano MECHANICAL EQUIPMENT TEST ENGINEER LAB BLOOD ORDERABLES Final Result [facility] [address] [facility] Department [place] [address] * (ABNORMAL) CBC with auto differential (04/26/2025 9:01 AM CDT) WBC 3.85 3.80 - 9.90 K/cumm Comment:Testing performed by : [address] [address] Hgb 8.1(L) 13.0 - 17.5 g/dL [facility] Comment:Testing performed by : [address] [address] Hct 26.2(L) 38.9 - 50.3 % [facility] Comment:Testing performed by : [address] [address] Plt 199 150 - 400 K/cumm [facility]AC Comment:Testing performed by : [address] [address] MPV 8.2(L) 9.1 - 12.3 fL [facility] Comment:Testing performed by : [address] [address] RBC 2.64(L) 4.30 - 5.80 M/cumm [facility] Comment:Testing performed by : [address] [address] MCV 99.2(H) 81.3 - 96.4 fL [facility] Comment:Testing performed by : [address] [address] MCH 30.7 27.1 - 33.3 pg [facility] Comment:Testing performed by : [address] [address] MCHC 30.9(L) 32.3 - 35.7 g/dL [facility] Comment:Testing performed by : [address] [address] RDW CV 19.6(H) 11.1 - 14.9 % [facility] SERNA Comment:Testing performed by : [address] [address] RDW SD 70.4(H) 35.7 - 48.1 fL [facility] Comment:Testing performed by : [address] [address] NRBC abs 0.00 0.00 - 0.01 K/cumm [facility] Comment:Testing performed by : [address] [address] ANC Prelim 2.29 1.50 - 6.50 K/cumm [facility]AC Comment: Interpretive Data The rapid ANC is a preliminary automated count and may vary from the final ANC (Neut Abs) reported in the WBC differential that follows. Current interpretive data was last revised 2025. Testing performed by: [address] [address] Blood 04/26/2025 9:01 AM CDT 04/26/2025 9:02 AM CDT Nena Cano MECHANICAL EQUIPMENT TEST ENGINEER LAB BLOOD ORDERABLES Final Result Performing Organization Address City/State/[facility] Co de Phone Number [facility] [address] [facility] [place] [address] * ABO/Rh (04/26/2025 9:01 AM CDT) ABO/Rh A Positive Comment:Testing performed by : [address] [address] Blood 04/26/2025 9:01 AM CDT 04/26/2025 9:44 AM CDT Narrative [facility] - 04/26/2025 10:36 AM CDT Has the patient had Daratumumab or Isatuximab in the past 6 months?->Unknown Nena Cano NP LAB BLOOD BANK TEST ORDERAB LES Final Result Performing Organization Address [facility] Co de Phone Number [address] [place] [address] * (ABNORMAL) Reticulocyte Count (04/26/2025 9:01 AM CDT) [facility] Retics, absolute 126(H) 20 - 87 K/cumm Comment:Testing performed by : [address] [address] Retics 4.8(H) 0.4 - 2.9 % [facility] Comment:Testing performed by : [address] [address] Reticulocyte Hgb 32.6 30.5 - 38.0 pg IS[facility]AC Comment:Testing performed by : [address] [address] Blood 04/26/2025 9:01 AM CDT 04/26/2025 9:02 AM CDT Nena Cano NP LAB BLOOD ORDERABLES Final Result Performing Organization Address [facility] de Phone Number [address] [address] * Crossmatch (04/26/2025 9:01 AM CDT) [facility] Crossmatch Compatible [facility] Unit number for crossmatch [id number] [facility] Blood 04/26/2025 9:01 AM CDT 04/26/2025 9:44 AM CDT Bianca Hunter MD LAB BLOOD BANK TEST ORDERABLES Final Result Performing Organization Address City/[facility] Co de Phone Number [address] [place] [address] * Antibody screen (04/26/2025 9:01 AM CDT) [facility] Divina, indirect, Gel Interpretation Negative ABSC Comment:Testing performed by : [address] [address] Blood 04/26/2025 9:01 AM CDT 04/26/2025 9:44 AM CDT Narrative [facility] - 04/26/2025 10:36 AM CDT Has the patient had Daratumumab or Isatuximab in the past 6 months?->Unknown Nena Cano MECHANICAL EQUIPMENT TEST ENGINEER LAB BLOOD BANK TEST ORDERAB LES Final Result [address] [employer] [place] [address] * Ferritin (04/26/2025 9:01 AM CDT) [facility] Ferritin 47 30 - 400 ng/mL Comment:Testing performed by : [address] [address] Blood 04/26/2025 9:01 AM CDT 04/26/2025 9:51 AM CDT Nena Cano MECHANICAL EQUIPMENT TEST ENGINEER LAB BLOOD ORDERABLES Final Result [address] [place] [address] * (ABNORMAL) Comprehensive metabolic panel (04/26/2025 9:01 AM CDT) [facility] Sodium 138 135 - 145 mmol/L Comment:Testing performed by : [address] [address] Potassium, pl 4.3 3.3 - 4.9 mmol/L [facility] Comment:Testing performed by : [address] [address] Chloride 107 97 - 110 mmol/L [facility] Comment:Testing performed by : [address] [address] CO2 22 22 - 32 mmol/L [facility] Comment:Testing performed by : [address] [address] Anion gap 9 2 - 15 mmol/L [facility] Comment:Testing performed by : [address] [address] BUN 17 6 - 25 mg/dL [facility] Comment:Testing performed by : [address] [address] Creatinine 1.60(H) 0.80 - 1.30 mg/dL [facility] Comment:Testing performed by : [address] [address] Glucose 92 70 - 199 mg/dL [facility] Comment: Interpretive [...] was last revised 2022. Testing performed by: [address] [address] Calcium 9.2 8.5 - 10.3 mg/dL [facility] Comment:Testing performed by : [address] [address] Bilirubin, total 0.3 0.1 - 1.2 mg/dL [facility] Comment:Testing performed by : [address] [address] Protein, pl 6.3(L) 6.5 - 8.5 g/dL [facility] Comment:Testing performed by : [address] [address] Albumin 3.6 3.5 - 5.0 g/dL [facility] Comment:Testing performed by : [address] [address] Alk phos 58 40 - 130 Units/L [facility] SERNA Comment:Testing performed by : [address], [address] ALT 10 7 - 55 Units/L [facility] SERNA Comment:Testing performed by : [address] [address] AST 14 10 - 50 Units/L [facility] SERNA Comment:Testing performed by : [address] [address] Blood 04/26/2025 9:01 AM CDT 04/26/2025 9:02 AM CDT Bianca Hunter MD LAB BLOOD ORDERABLES Final Result Performing Organization Address City/[facility] Co de Phone Number ISAAC [facility]9 [facility] [place] [address] * Transfuse RBC (04/12/2025 2:07 PM CDT) Blood Eli Toscano NP BLOOD TRANSFUSION OR DERABLES Final Result * Prepare RBC: 1 Units (04/12/2025 10:48 AM CDT) Units requested 1 Comment:Testing performed by : [address], [address] Units requested Ready ISAAC SERNA Comment:Testing performed by : [address] [address] Unit Number [id number] Product code [id number] ISAAC Blood Expiration Date [id number] ISAAC Product Blood Type (for scanning) 6200 ISAAC Product Blood Type APOS ISAAC Dispense Status DISPENSED ISAAC Blood 04/12/2025 10:4 8 AM CDT 04/12/2025 10:48 AM CDT Bianca Hunter MD BLOOD BANK PRODUCT O RDERABLES Final Result Performing Organization Address City/[facility] Co de Phone Number ISAAC [address] [place] [address] * Differential, auto (04/12/2025 9:09 AM CDT) Neutrophil abs 2.16 1.50 - 6.50 K/cumm Comment:Testing performed by : [address] [address] Imm gran abs 0.02 0.00 - 0.10 K/cumm ISAAC Comment:Testing performed by : [address] [address] Lymphocyte abs 0.81 0.80 - 3.30 K/cumm ISAAC Comment:Testing performed by : [address] [address] Monocyte abs 0.51 0.20 - 0.80 K/cumm [facility] Comment:Testing performed by : [address] [address] Eosinophil abs 0.19 0.00 - 0.50 K/cumm ISAAC Comment:Testing performed by : [address] [address] Basophil abs 0.04 0.00 - 0.10 K/cumm [facility] Comment:Testing performed by : [address] [address] Neutrophil pct 57.9 % [facility] Comment: Interpretive Data Percent cell count reference ranges are not reported, since discordance with absolute values may lead to misinterpretation of CBC data. Current Interpretive Data was last revised on 2018. Testing performed by: [address] [address] Imm gran pct 0.5 % [facility] Comment: Interpretive Data Percent cell count reference ranges are not reported, since discordance with absolute values may lead to misinterpretation of CBC data. Current Interpretive Data was last revised on 2018. Testing performed by: [address] [address] Lymphocyte pct 21.7 % CERNER Comment: Interpretive Data Percent cell count reference ranges are not reported, since discordance with absolute values may lead to misinterpretation of CBC data. Current Interpretive Data was last revised on 2018. Testing performed by: [address] [address] Monocyte pct 13.7 % ISAAC Comment: Interpretive Data Percent cell count reference ranges are not reported, since discordance with absolute values may lead to misinterpretation of CBC data. Current Interpretive Data was last revised on 2018. Testing performed by: [address] [address] Eosinophil pct 5.1 % SIAAC Comment: Interpretive Data Percent cell count reference ranges are not reported, since discordance with absolute values may lead to misinterpretation of CBC data. Current Interpretive Data was last revised on 2018. Testing performed by: [address] [address] Basophil pct 1.1 % ISAAC Comment: Interpretive Data Percent cell count reference ranges are not reported, since discordance with absolute values may lead to misinterpretation of CBC data. Current Interpretive Data was last revised on 2018. Testing performed by: [address] [address] Blood 04/12/2025 9:09 AM CDT 04/12/2025 9:10 AM CDT Nena Cano MECHANICAL EQUIPMENT TEST ENGINEER LAB BLOOD ORDERABLES Final Result [facility] [address] [facility] [place] [address] * (ABNORMAL) Iron profile w/ IBC (04/12/2025 9:09 AM CDT) Iron 104 50 - 150 mcg/dL Comment:Testing performed by : [address] [address] TIBC 226(L) 250 - 400 mcg/dL ISAAC SERNA Comment:Testing performed by : [address] [address] Transferrin saturation 46 20 - 50 % ISAAC Comment:Testing performed by : [address] [address] Blood 04/12/2025 9:09 AM CDT 04/12/2025 9:45 AM CDT Nena Cano MECHANICAL EQUIPMENT TEST ENGINEER LAB BLOOD ORDERABLES Final Result ISAAC [address] [facility] Department [place] [address] * (ABNORMAL) CBC with auto differential (04/12/2025 9:09 AM CDT) WBC 3.73(L) 3.80 - 9.90 K/cumm Comment:Testing performed by : [address] [address] Hgb 7.9(L) 13.0 - 17.5 g/dL ISAAC Comment:Testing performed by : [address] [address] Hct 25.0(L) 38.9 - 50.3 % ISAAC Comment:Testing performed by : [address] [address] Plt 215 150 - 400 K/cumm ISAAC Comment:Testing performed by : [address] [address] MPV 8.5(L) 9.1 - 12.3 fL ISAAC Comment:Testing performed by : [address] [address] RBC 2.63(L) 4.30 - 5.80 M/cumm ISAAC Comment:Testing performed by : [address] [address] MCV 95.1 81.3 - 96.4 fL ISAAC Comment:Testing performed by : [address] [address] MCH 30.0 27.1 - 33.3 pg ISAAC Comment:Testing performed by : [address] [address] MCHC 31.6(L) 32.3 - 35.7 g/dL ISAAC Comment:Testing performed by : [address] [address] RDW CV 20.8(H) 11.1 - 14.9 % ISAAC Comment:Testing performed by : [address] [address] RDW SD 71.6(H) 35.7 - 48.1 fL ISAAC Comment:Testing performed by : [address] [address] NRBC abs 0.00 0.00 - 0.01 K/cumm ISAAC Comment:Testing performed by : [address] [address] ANC Prelim 2.16 1.50 - 6.50 K/cumm ISAAC Comment: Interpretive Data The rapid ANC is a preliminary automated count and may vary from the final ANC (Neut Abs) reported in the WBC differential that follows. Current interpretive data was last revised 2025. Testing performed by: [address] [address] Blood 04/12/2025 9:09 AM CDT 04/12/2025 9:10 AM CDT Nena Cano NP LAB BLOOD ORDERABLES Final Result Performing Organization Address [facility] Co de Phone Number [facility] [address] [facility] [place] [address] * ABO/Rh (04/12/2025 9:09 AM CDT) ABO/Rh A Positive Comment:Testing performed by : [address] [address] Blood 04/12/2025 9:09 AM CDT 04/12/2025 9:45 AM CDT Narrative ISAAC - 04/12/2025 10:25 AM CDT Has the patient had Daratumumab or Isatuximab in the past 6 months?->Unknown Nena Cano NP LAB BLOOD BANK TEST ORDERAB LES Final Result Performing Organization Address City/State/[facility] Co de Phone Number ISAAC [address] [place] [address] * (ABNORMAL) Reticulocyte Count (04/12/2025 9:09 AM CDT) [facility] Retics, absolute 108(H) 20 - 87 K/cumm Comment:Testing performed by : [address] [address] Retics 4.1(H) 0.4 - 2.9 % ISAAC Comment:Testing performed by : [address] [address] Reticulocyte Hgb 34.1 30.5 - 38.0 pg ISAAC Comment:Testing performed by : [address] [address] Blood 04/12/2025 9:09 AM CDT 04/12/2025 9:10 AM CDT Nena Cano MECHANICAL EQUIPMENT TEST ENGINEER LAB BLOOD ORDERABLES Final Result Performing Organization Address [facility] de Phone Number [address] [place] [address] * Crossmatch (04/12/2025 9:09 AM CDT) [facility] Crossmatch Compatible [facility] Unit number for crossmatch [id number] [facility] Blood 04/12/2025 9:09 AM CDT 04/12/2025 9:48 AM CDT Nena Cano MECHANICAL EQUIPMENT TEST ENGINEER LAB BLOOD BANK TEST ORDERAB LES Final Result Performing Organization Address City/[facility] Co de Phone Number [address] [address] * Antibody screen (04/12/2025 9:09 AM CDT) [facility] Divina, indirect, Gel Interpretation Negative ABSC Comment:Testing performed by : [address] [place]., [address] Blood 04/12/2025 9:09 AM CDT 04/12/2025 9:45 AM CDT Narrative ISAAC - 04/12/2025 10:43 AM CDT Has the patient had Daratumumab or Isatuximab in the past 6 months?->Unknown Nena Cano MECHANICAL EQUIPMENT TEST ENGINEER LAB BLOOD BANK TEST ORDERAB LES Final Result Performing Organization Address [facility] Co de Phone Number ISAAC [address] [place] [address] * Ferritin (04/12/2025 9:09 AM CDT) Ferritin 58 30 - 400 ng/mL Comment:Testing performed by : [facility], [address] [place] [address]., [address] Blood 04/12/2025 9:09 AM CDT 04/12/2025 9:45 AM CDT Nena Cano MECHANICAL EQUIPMENT TEST ENGINEER LAB BLOOD ORDERABLES Final Result Performing Organization Address 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 After intravenous administration of FDG, noncontrast CT images were obtained for attenuation correction and for fusion with emission PET images to allow for anatomical localization of PET findings. Emission PET images were then obtained. The reported standardized uptake value maximum (SUVmax) values have been normalized to body weight (SUVbw). The area imaged spanned the region from the skull base skull vertex to the proximal thighs toes . The time from injection of FDG to start of imaging was uptake time minutes. COMPARISON: FDG PET-CT 12/16/2024 FINDINGS: DESCRIPTORS OF LESION FDG AVIDITY: Minimal: <= blood pool Mild: > blood pool and <= liver Moderate: > liver and <= 2x SUV max liver Wakdlpww-lq-zebqba: >2x SUV max liver and <= 3x SUV max liver Marked: > 3x SUV max liver For reference: Blood pool SUV max 3.2 ; background liver SUV max = 4.1 HEAD AND NECK: Physiologic tracer uptake in the head and neck. Redemonstration of hypermetabolic left parotid mass with SUV max of 33.6, previously 30.9. New foci of uptake in the posterior head/neck and bilateral supraclavicular region may be physiologic fat or vascular uptake. Attention on follow-up. CHEST: Lungs: Patent central airways. No suspicious or hypermetabolic nodule or mass. No focal consolidation. . No pleural effusion . Heart and vessels: Normal-sized heart without pericardial effusion. Normal caliber of the great vessels . Mediastinum/hilum: Redemonstration of hypermetabolic abnormal wall thickening of the distal esophagus with SUV max of 7.3, previously 6.3, consistent with patient's known malignancy. No hypermetabolic lymph node. Chest wall: No soft tissue abnormality . No FDG avid axillary lymph nodes . ABDOMEN: Hepatobiliary: Normal-sized liver with homogeneous parenchyma and physiologic tracer uptake. Postcholecystectomy . No intrahepatic or extrahepatic biliary ductal dilatation . Pancreas, spleen, adrenals: Unremarkable . Urogenital: Physiologic tracer uptake in the kidneys and collecting system . Bilateral photopenic renal cysts . Gastrointestinal: Physiologic uptake in the bowel loops . Redemonstration of circumferential rectal wall thickening with increased metabolic activity (SUV max of 12.5, previously 10.9) which may represent persistent acute proctitis. . Peritoneum/lymph nodes: No suspicious hypermetabolic lesion or lymph node. Bones: Physiologic marrow uptake . No suspicious or hypermetabolic osseous lesion IMPRESSION: Increased metabolic activity within abnormal wall thickening of the distal esophagus consistent with patient's known malignancy. No evidence of FDG avid metastatic disease. Mild increased metabolic activity within hypermetabolic left parotid mass. Correlate with tissue sampling. Redemonstration of circumferential rectal wall thickening with increased metabolic activity which may represent acute proctitis. THIS IS AN ELECTRONICALLY VERIFIED FINAL REPORT 04/10/2025 11:27 AM - Electronically signed by Naomi Pimentel M.D. 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 After intravenous administration of FDG, noncontrast CT images were obtained for attenuation correction and for fusion with emission PET images to allow for anatomical localization of PET findings. Emission PET images were then obtained. The reported standardized uptake value maximum (SUVmax) values have been normalized to body weight (SUVbw). The area imaged spanned the region fromthe skull base skull vertex to the proximal thighs toes . The time from injection of FDG to start of imaging was uptake time minutes. COMPARISON: FDG PET-CT 12/16/2024 FINDINGS: DESCRIPTORS OF LESION FDG AVIDITY: Minimal: <= blood pool Mild: > blood pool and <= liver Moderate: > liver and <= 2x SUV max liver Akkjmdvc-zg-vjwmon: >2x SUV max liver and <= 3x SUV max liver Marked: > 3x SUV max liver For reference: Blood pool SUV max 3.2 ; background liver SUV max = 4.1 HEAD AND NECK: Physiologic tracer uptake in the head and neck. Redemonstration of hypermetabolic left parotid mass with SUV max of 33.6, previously 30.9. New foci of uptake in the posterior head/neck andbilateral supraclavicular region may be physiologic fat or vascular uptake.Attention on follow-up. CHEST: Lungs: Patent central airways. No suspicious or hypermetabolic nodule or mass. No focal consolidation. . No pleural effusion . Heart and vessels: Normal-sized heart without pericardial effusion.Normal caliber of the great vessels . Mediastinum/hilum: Redemonstration of hypermetabolic abnormal wallthickening of the distal esophagus with SUV max of 7.3, previously 6.3, consistentwith patient's known malignancy. No hypermetabolic lymph node. Chest wall: No soft tissue abnormality . No FDG avid axillary lymphnodes . ABDOMEN: Hepatobiliary: Normal-sized liver with homogeneous parenchyma andphysiologic tracer uptake. Postcholecystectomy . No intrahepatic or extrahepaticbiliary ductal dilatation . Pancreas, spleen, adrenals: Unremarkable . Urogenital: Physiologic tracer uptake in the kidneys and collectingsystem . Bilateral photopenic renal cysts . Gastrointestinal: Physiologic uptake in the bowel loops . Redemonstrationof circumferential rectal wall thickening with increased metabolic activity(SUV max of 12.5, previously 10.9) which may represent persistent acuteproctitis. . Peritoneum/lymph nodes: No suspicious hypermetabolic lesion or lymphnode. Bones: Physiologic marrow uptake . No suspicious or hypermetabolicosseous lesion IMPRESSION: Increased metabolic activity within abnormal wall thickening of thedistal esophagus consistent with patient's known malignancy. No evidence of FDG avid metastatic disease. Mild increased metabolic activity within hypermetabolic left parotidmass. Correlate with tissue sampling. Redemonstration of circumferential rectal wall thickening with increased metabolic activity which may represent acute proctitis. THIS IS AN ELECTRONICALLY VERIFIED FINAL REPORT 04/10/2025 11:27 AM - Electronically signed by Naomi Pimentel M.D. FT: FT Report ID: [id number] Reading Location: [place] [address] Bianca Hunter MD IM PET PROCEDURES F inal Result * POCT glucose (04/10/2025 8:22 AM CDT) [facility] Signature Glucose, POC 88 70 - 199 mg/dL Comment:Testing performed by : [address] [address] Blood 04/10/2025 8:22 AM CDT 04/10/2025 8:22 AM CDT Bianca Hunter MD LAB POCT ORDERABLES - DEVICE Final Result [facility] [address] [facility] [place] [address] * Differential, auto (04/04/2025 10:10 AM CDT) Neutrophil abs 2.03 1.50 - 6.50 K/cumm Comment:Testing performed by : [address] [address] Imm gran abs 0.02 0.00 - 0.10 K/cumm ISAAC Comment:Testing performed by : [address] [address] Lymphocyte abs 0.96 0.80 - 3.30 K/cumm ISAAC Comment:Testing performed by : [address] [address] Monocyte abs 0.51 0.20 - 0.80 K/cumm ISAAC Comment:Testing performed by : [address] [address] Eosinophil abs 0.15 0.00 - 0.50 K/cumm ISAAC Comment:Testing performed by : [address] [address] Basophil abs 0.03 0.00 - 0.10 K/cumm ISAAC Comment:Testing performed by : [address] [address] Neutrophil pct 54.9 % ISAAC Comment: Interpretive Data Percent cell count reference ranges are not reported, since discordance with absolute values may lead to misinterpretation of CBC data. Current Interpretive Data was last revised on 2018. Testing performed by: [address] [address] Imm gran pct 0.5 % ISAAC Comment: Interpretive Data Percent cell count reference ranges are not reported, since discordance with absolute values may lead to misinterpretation of CBC data. Current Interpretive Data was last revised on 2018. Testing performed by: [address] [address] Lymphocyte pct 25.9 % ISAAC Comment: Interpretive Data Percent cell count reference ranges are not reported, since discordance with absolute values may lead to misinterpretation of CBC data. Current Interpretive Data was last revised on 2018. Testing performed by: [address] [address] Monocyte pct 13.8 % ISAAC Comment: Interpretive Data Percent cell count reference ranges are not reported, since discordance with absolute values may lead to misinterpretation of CBC data. Current Interpretive Data was last revised on 2018. Testing performed by: [address] [address] Eosinophil pct 4.1 % [facility] Comment: Interpretive Data Percent cell count reference ranges are not reported, since discordance with absolute values may lead to misinterpretation of CBC data. Current Interpretive Data was last revised on 2018. Testing performed by: [address] [address] Basophil pct 0.8 % ISAAC Comment: Interpretive Data Percent cell count reference ranges are not reported, since discordance with absolute values may lead to misinterpretation of CBC data. Current Interpretive Data was last revised on 2018. Testing performed by: [address] [address] Blood 04/04/2025 10:1 0 AM CDT 04/04/2025 10:10 AM CDT us Nena Cano NP LAB BLOOD ORDERABLES Final Result ISAAC SERNA [address] [facility] Department of Laboratories [place], [place] [id number] * (ABNORMAL) Iron profile w/ IBC (04/04/2025 10:10 AM CDT) [facility] Iron 138 50 - 150 mcg/dL Comment:Testing performed by : [address] [address] TIBC 228(L) 250 - 400 mcg/dL ISAAC SERNA Comment:Testing performed by : [address] [address] Transferrin saturation 61(H) 20 - 50 % ISAAC SERNA Comment:Testing performed by : [address] [address] Blood 04/04/2025 10:1 0 AM CDT 04/04/2025 11:44 AM CDT Nena Cano MECHANICAL EQUIPMENT TEST ENGINEER LAB BLOOD ORDERABLES Final Result Performing Organization Address City/State/[facility] Co de Phone Number ISAAC [facility]2 [facility] Department [place] [address] * (ABNORMAL) CBC with auto differential (04/04/2025 10:10 AM CDT) [facility] WBC 3.70(L) 3.80 - 9.90 K/cumm Comment:Testing performed by : [address] [address] Hgb 8.2(L) 13.0 - 17.5 g/dL ISAAC SERNA Comment:Testing performed by : [address] [address] Hct 26.2(L) 38.9 - 50.3 % ISAAC SERNA Comment:Testing performed by : [address] [address] Plt 205 150 - 400 K/cumm ISAAC SERNA Comment:Testing performed by : [address] [address] MPV 9.1 9.1 - 12.3 fL ISAAC SERNA Comment:Testing performed by : [address] [address] RBC 2.79(L) 4.30 - 5.80 M/cumm ISAAC SERNA Comment:Testing performed by : [address] [address] MCV 93.9 81.3 - 96.4 fL ISAAC SERNA Comment:Testing performed by : [address] [address] MCH 29.4 27.1 - 33.3 pg IASAC SERNA Comment:Testing performed by : [address] [address] MCHC 31.3(L) 32.3 - 35.7 g/dL ISAAC SERNA Comment:Testing performed by : [address] [address] RDW CV 19.9(H) 11.1 - 14.9 % ISAAC SERNA Comment:Testing performed by : [address] [address] RDW SD 68.3(H) 35.7 - 48.1 fL ISAAC SERNA Comment:Testing performed by : [address] [address] NRBC abs 0.00 0.00 - 0.01 K/cumm ISAAC Comment:Testing performed by : [address] [address] ANC Prelim 2.03 1.50 - 6.50 K/cumm ISAAC Comment: Interpretive Data The rapid ANC is a preliminary automated count and may vary from the final ANC (Neut Abs) reported in the WBC differential that follows. Current interpretive data was last revised 2025. Testing performed by: [address] [address] Blood 04/04/2025 10:1 0 AM CDT 04/04/2025 10:10 AM CDT us Nena Cano NP LAB BLOOD ORDERABLES Final Result ISAAC SERNA [address] [facility] Department of Laboratories [place], [place] [id number] * Reticulocyte Count (04/04/2025 10:10 AM CDT) Retics, absolute 78 20 - 87 K/cumm Comment:Testing performed by : [address] [address] Retics 2.8 0.4 - 2.9 % ISAAC Comment:Testing performed by : [address] [address] Reticulocyte Hgb 30.5 30.5 - 38.0 pg ISAAC SERNA Comment:Testing performed by : [address] [address] Blood 04/04/2025 10:1 0 AM CDT 04/04/2025 10:10 AM CDT Nena Cano MECHANICAL EQUIPMENT TEST ENGINEER LAB BLOOD ORDERABLES Final Result [address] [place] [address] * Ferritin (04/04/2025 10:10 AM CDT) Pathologist [facility] Ferritin 65 30 - 400 ng/mL Comment:Testing performed by : [address] [address] Blood 04/04/2025 10:1 0 AM CDT 04/04/2025 11:44 AM CDT Nena Cano MECHANICAL EQUIPMENT TEST ENGINEER LAB BLOOD ORDERABLES Final Result [address] [address] * Differential, auto (03/29/2025 9:10 AM CDT) Neutrophil abs 1.83 1.50 - 6.50 K/cumm Comment:Testing performed by : [address] [address] Imm gran abs 0.01 0.00 - 0.10 K/cumm ISAAC SERNA Comment:Testing performed by : [address] [address] Lymphocyte abs 0.94 0.80 - 3.30 K/cumm ISAAC SERNA Comment:Testing performed by : [address] [address] Monocyte abs 0.60 0.20 - 0.80 K/cumm [facility] Comment:Testing performed by : [address] [address] Eosinophil abs 0.16 0.00 - 0.50 K/cumm [facility] Comment:Testing performed by : [address], [place]., [address] Basophil abs 0.04 0.00 - 0.10 K/cumm [facility] Comment:Testing performed by : [address] [address] Neutrophil pct 51.0 % [facility] Comment: Interpretive Data Percent cell count reference ranges are not reported, since discordance with absolute values may lead to misinterpretation of CBC data. Current Interpretive Data was last revised on 2018. Testing performed by: [address] [address] Imm gran pct 0.3 % [facility] Comment: Interpretive Data Percent cell count reference ranges are not reported, since discordance with absolute values may lead to misinterpretation of CBC data. Current Interpretive Data was last revised on 2018. Testing performed by: [address] [address] Lymphocyte pct 26.3 % [facility] Comment: Interpretive Data Percent cell count reference ranges are not reported, since discordance with absolute values may lead to misinterpretation of CBC data. Current Interpretive Data was last revised on 2018. Testing performed by: [address] [address] Monocyte pct 16.8 % [facility] Comment: Interpretive Data Percent cell count reference ranges are not reported, since discordance with absolute values may lead to misinterpretation of CBC data. Current Interpretive Data was last revised on 2018. Testing performed by: [address] [address] Eosinophil pct 4.5 % [facility] Comment: Interpretive Data Percent cell count reference ranges are not reported, since discordance with absolute values may lead to misinterpretation of CBC data. Current Interpretive Data was last revised on 2018. Testing performed by: [address] [address] Basophil pct 1.1 % [facility] Comment: Interpretive Data Percent cell count reference ranges are not reported, since discordance with absolute values may lead to misinterpretation of CBC data. Current Interpretive Data was last revised on 2018. Testing performed by: [address] [address] Blood 03/29/2025 9:10 AM CDT 03/29/2025 9:11 AM CDT Nena Cano MECHANICAL EQUIPMENT TEST ENGINEER LAB BLOOD ORDERABLES Final Result Performing Organization Address [facility] de Phone Number DAYANA[address] [place] [address] * (ABNORMAL) Iron profile w/ IBC (03/29/2025 9:10 AM CDT) Pathologist [facility] Iron 49(L) 50 - 150 mcg/dL Comment:Testing performed by : [address] [address] TIBC 201(L) 250 - 400 mcg/dL IS[facility]AC SERNA Comment:Testing performed by : [address] [address] Transferrin saturation 24 20 - 50 % [facility] Comment:Testing performed by : [address] [address] Blood 03/29/2025 9:10 AM CDT 03/29/2025 9:47 AM CDT Nena Cano NP LAB BLOOD ORDERABLES Final Result Performing Organization Address [facility] Co de Phone Number DAYANA[address] [place] [place] [address] * (ABNORMAL) CBC with auto differential (03/29/2025 9:10 AM CDT) WBC 3.58(L) 3.80 - 9.90 K/cumm Comment:Testing performed by : [address] [address] Hgb 8.8(L) 13.0 - 17.5 g/dL CERADAM Comment:Testing performed by : [address] [address] Hct 27.7(L) 38.9 - 50.3 % CERNER Comment:Testing performed by : [address] [address] Plt 192 150 - 400 K/cumm CERADAM Comment:Testing performed by : [address] [address] MPV 8.8(L) 9.1 - 12.3 fL CERADAM Comment:Testing performed by : [address], [address] RBC 3.01(L) 4.30 - 5.80 M/cumm CERADAM Comment:Testing performed by : [address], [address] MCV 92.0 81.3 - 96.4 fL CERNER Comment:Testing performed by : [address], [address] MCH 29.2 27.1 - 33.3 pg CERADAM Comment:Testing performed by : [address] [address] MCHC 31.8(L) 32.3 - 35.7 g/dL CERNER Comment:Testing performed by : [address], [address] RDW CV 20.7(H) 11.1 - 14.9 % CERNER Comment:Testing performed by : [address], [address] RDW SD 69.5(H) 35.7 - 48.1 fL CERADAM Comment:Testing performed by : [address] [address] NRBC abs 0.00 0.00 - 0.01 K/cumm IASAC MH Comment:Testing performed by : [address] [address] ANC Prelim 1.83 1.50 - 6.50 K/cumm ISAAC Comment: Interpretive Data The rapid ANC is a preliminary automated count and may vary from the final ANC (Neut Abs) reported in the WBC differential that follows. Current interpretive data was last revised 2025. Testing performed by: [address] [address] Blood 03/29/2025 9:10 AM CDT 03/29/2025 9:11 AM CDT Nena Cano MECHANICAL EQUIPMENT TEST ENGINEER LAB BLOOD ORDERABLES Final Result Performing Organization Address City/[facility] Co de Phone Number [facility] [address] [facility] [place] [address] * Reticulocyte Count (03/29/2025 9:10 AM CDT) Retics, absolute 79 20 - 87 K/cumm Comment:Testing performed by : [address] [address] Retics 2.6 0.4 - 2.9 % ISAAC Comment:Testing performed by : [address] [address] Reticulocyte Hgb 32.0 30.5 - 38.0 pg ISAAC Comment:Testing performed by : [address] [address] Blood 03/29/2025 9:10 AM CDT 03/29/2025 9:11 AM CDT Nena Cano LAB BLOOD ORDERABLES Final Result Performing Organization Address [facility] Co de Phone Number [address] [place] [address] * Ferritin (03/29/2025 9:10 AM CDT) Ferritin 76 30 - 400 ng/mL Comment:Testing performed by : [address] [address] Blood 03/29/2025 9:10 AM CDT 03/29/2025 9:47 AM CDT Nena Cano MECHANICAL EQUIPMENT TEST ENGINEER LAB BLOOD ORDERABLES Final Result IS[facility]AC [address] [facility] [place] [address] * (ABNORMAL) Differential, auto (03/15/2025 9:10 AM CDT) Neutrophil abs 1.35(L) 1.50 - 6.50 K/cumm Comment:Testing performed by : [address] [address] Imm gran abs 0.02 0.00 - 0.10 K/cumm ISAAC Comment:Testing performed by : [address] [address] Lymphocyte abs 0.76(L) 0.80 - 3.30 K/cumm ISAAC Comment:Testing performed by : [address] [address] Monocyte abs 0.69 0.20 - 0.80 K/cumm ISAAC Comment:Testing performed by : [address] [address] Eosinophil abs 0.05 0.00 - 0.50 K/cumm ISAAC Comment:Testing performed by : [address] [address] Basophil abs 0.02 0.00 - 0.10 K/cumm ISAAC Comment:Testing performed by : [address] [address] Neutrophil pct 46.7 % [facility] Comment: Interpretive Data Percent cell count reference ranges are not reported, since discordance with absolute values may lead to misinterpretation of CBC data. Current Interpretive Data was last revised on 2018. Testing performed by: [address] [address] Imm gran pct 0.7 % [facility] Comment: Interpretive Data Percent cell count reference ranges are not reported, since discordance with absolute values may lead to misinterpretation of CBC data. Current Interpretive Data was last revised on 2018. Testing performed by: [address] [address] Lymphocyte pct 26.3 % [facility] Comment: Interpretive Data Percent cell count reference ranges are not reported, since discordance with absolute values may lead to misinterpretation of CBC data. Current Interpretive Data was last revised on 2018. Testing performed by: [address] [address] Monocyte pct 23.9 % [facility] Comment: Interpretive Data Percent cell count reference ranges are not reported, since discordance with absolute values may lead to misinterpretation of CBC data. Current Interpretive Data was last revised on 2018. Testing performed by: [address] [address] Eosinophil pct 1.7 % [facility] Comment: Interpretive Data Percent cell count reference ranges are not reported, since discordance with absolute values may lead to misinterpretation of CBC data. Current Interpretive Data was last revised on 2018. Testing performed by: [address] [address] Basophil pct 0.7 % [facility] Comment: Interpretive Data Percent cell count reference ranges are not reported, since discordance with absolute values may lead to misinterpretation of CBC data. Current Interpretive Data was last revised on 2018. Testing performed by: [address] [address] Blood 03/15/2025 9:10 AM CDT 03/15/2025 9:12 AM CDT us Nena Cano NP LAB BLOOD ORDERABLES Final Result IS[facility]AC SERNA [address] [facility] Department of Laboratories [place], [place] [id number] * (ABNORMAL) Iron profile w/ IBC (03/15/2025 9:10 AM CDT) [facility] Iron 57 50 - 150 mcg/dL Comment:Testing performed by : [address] [address] TIBC 190(L) 250 - 400 mcg/dL ISAAC SERNA Comment:Testing performed by : [address] [address] Transferrin saturation 30 20 - 50 % ISAAC SERNA Comment:Testing performed by : [address] [address] Blood 03/15/2025 9:10 AM CDT 03/15/2025 9:39 AM CDT Nena Cano MECHANICAL EQUIPMENT TEST ENGINEER LAB BLOOD ORDERABLES Final Result ISAAC SERNA [facility]3 [facility] [place] [address] * (ABNORMAL) CBC with auto differential (03/15/2025 9:10 AM CDT) WBC 2.89(L) 3.80 - 9.90 K/cumm Comment:Testing performed by : [address] [address] Hgb 10.0(L) 13.0 - 17.5 g/dL ISAAC SERNA Comment:Testing performed by : [address] [address] Hct 31.2(L) 38.9 - 50.3 % [facility] SERNA Comment:Testing performed by : [address] [address] Plt 225 150 - 400 K/cumm ISAAC SERNA Comment:Testing performed by : [address] [address] MPV 9.0(L) 9.1 - 12.3 fL IS[facility]AC SERNA Comment:Testing performed by : [address] [address] RBC 3.42(L) 4.30 - 5.80 M/cumm ISAAC SERNA Comment:Testing performed by : [address] [address] MCV 91.2 81.3 - 96.4 fL IS[facility]AC SERNA Comment:Testing performed by : [address] [address] MCH 29.2 27.1 - 33.3 pg ISAAC Comment:Testing performed by : [address] [address] MCHC 32.1(L) 32.3 - 35.7 g/dL ISAAC SERNA Comment:Testing performed by : [address] [address] RDW CV 20.9(H) 11.1 - 14.9 % IS[facility]AC Comment:Testing performed by : [address] [address] RDW SD 69.1(H) 35.7 - 48.1 fL [facility]AC Comment:Testing performed by : [address] [address] NRBC abs 0.00 0.00 - 0.01 K/cumm ISAAC Comment:Testing performed by : [address] [address] ANC Prelim 1.35(L) 1.50 - 6.50 K/cumm IS[facility]AC Comment: Interpretive Data The rapid ANC is a preliminary automated count and may vary from the final ANC (Neut Abs) reported in the WBC differential that follows. Current interpretive data was last revised 2025. Testing performed by: [address] [address] Blood 03/15/2025 9:10 AM CDT 03/15/2025 9:12 AM CDT us Nena Cano NP LAB BLOOD ORDERABLES Final Result DAYANAADAM [address] [facility] [place] [address] * (ABNORMAL) Reticulocyte Count (03/15/2025 9:10 AM CDT) Retics, absolute 99(H) 20 - 87 K/cumm Comment:Testing performed by : [address] [place] [address] Retics 2.9 0.4 - 2.9 % ISAAC Comment:Testing performed by : [facility], [address] [place] [address]., [address] Reticulocyte Hgb 33.0 30.5 - 38.0 pg ISAAC SERNA Comment:Testing performed by : [facility], [address] [place] [address]., [address] Blood 03/15/2025 9:10 AM CDT 03/15/2025 9:12 AM CDT Nena Cano MECHANICAL EQUIPMENT TEST ENGINEER LAB BLOOD ORDERABLES Final Result Performing Organization Address City/[facility] Co de Phone Number [address] [place] [address] * Ferritin (03/15/2025 9:10 AM CDT) Pathologist [facility] Ferritin 131 30 - 400 ng/mL Comment:Testing performed by : [facility], [address] [place] [address]., [address] Blood 03/15/2025 9:10 AM CDT 03/15/2025 9:39 AM CDT Nena Cano MECHANICAL EQUIPMENT TEST ENGINEER LAB BLOOD ORDERABLES Final Result Performing Organization Address City/[facility] Co de Phone Number [address] [address] * (ABNORMAL) Protime-INR (02/28/2025 12:40 PM CDT) PT 41.1(H) 12.0 - 14.6 sec Comment: Ref Range High Testing performed by: [address] [address] INR 4.4(H) 0.9 - 1.2 ISAAC SERNA Comment: Ref Range High Interpretive data Oral anticoagulant therapeutic ranges: Venous thromboembolism prophylaxis or treatment: 2.0-3.0 CARDIOLOGY Standard range: 2.0-3.0 High-intensity range: 2.5-3.5 Refer to indication-specific guidelines for appropriate target ranges for prosthetic heart valve replacement. Current interpretive data was last revised on 2019. Testing performed by: [address] [address] Blood 02/28/2025 12:4 0 PM CDT 02/28/2025 1:32 PM CDT us Jas Alcala MD LAB BLOOD ORDERABLES Final R esult Performing Organization Address [facility] Co de Phone Number [address] [place] [address] * Blood smear review (02/28/2025 12:03 PM CDT) RBC morphology Consistent with RBC Indicies Comment:Testing performed by : [address] [address] Platelet estimate Adequate [facility] Comment:Testing performed by : [address] [address] Blood 02/28/2025 12:0 3 PM CDT 02/28/2025 12:05 PM CDT us Bianca Hunter MD LAB BLOOD ORDERABLES Final Result Performing Organization Address [facility] Co de Phone Number [address] [address] * eGFR (02/28/2025 12:03 PM CDT) eGFR [...] was last reviewed 2021. Testing performed by: [address] [address] Blood 02/28/2025 12:0 3 PM CDT 02/28/2025 12:05 PM CDT us Bianca Hunter MD LAB BLOOD ORDERABLES Final Result ISAAC [facility]8 [facility] [place] [address] * (ABNORMAL) Differential, auto (02/28/2025 12:03 PM CDT) Neutrophil abs 0.91(L) 1.50 - 6.50 K/cumm Comment:Testing performed by : [address] [address] Imm gran abs 0.06 0.00 - 0.10 K/cumm ISAAC Comment:Testing performed by : [address] [address] Lymphocyte abs 0.33(L) 0.80 - 3.30 K/cumm ISAAC Comment:Testing performed by : [address] [address] Monocyte abs 0.41 0.20 - 0.80 K/cumm ISAAC Comment:Testing performed by : [address] [address] Eosinophil abs 0.04 0.00 - 0.50 K/cumm ISAAC Comment:Testing performed by : [address] [address] Basophil abs 0.02 0.00 - 0.10 K/cumm ISAAC Comment:Testing performed by : [address] [address] Neutrophil pct 51.4 % CERNER Comment: Differential consistent with previous result. Interpretive Data Percent cell count reference ranges are not reported, since discordance with absolute values may lead to misinterpretation of CBC data. Current Interpretive Data was last revised on 2018. Testing performed by: [address] [address] Imm gran pct 3.4 % [facility] Comment: Interpretive Data Percent cell count reference ranges are not reported, since discordance with absolute values may lead to misinterpretation of CBC data. Current Interpretive Data was last revised on 2018. Testing performed by: [address] [address] Lymphocyte pct 18.6 % [facility] Comment: Interpretive Data Percent cell count reference ranges are not reported, since discordance with absolute values may lead to misinterpretation of CBC data. Current Interpretive Data was last revised on 2018. Testing performed by: [address] [address] Monocyte pct 23.2 % [facility] Comment: Interpretive Data Percent cell count reference ranges are not reported, since discordance with absolute values may lead to misinterpretation of CBC data. Current Interpretive Data was last revised on 2018. Testing performed by: [address] [address] Eosinophil pct 2.3 % CERNER Comment: Interpretive Data Percent cell count reference ranges are not reported, since discordance with absolute values may lead to misinterpretation of CBC data. Current Interpretive Data was last revised on 2018. Testing performed by: [address] [address] Basophil pct 1.1 % CERNER Comment: Interpretive Data Percent cell count reference ranges are not reported, since discordance with absolute values may lead to misinterpretation of CBC data. Current Interpretive Data was last revised on 2018. Testing performed by: [address] [address] Blood 02/28/2025 12:0 3 PM CDT 02/28/2025 12:05 PM CDT Bianca Hunter MD LAB BLOOD ORDERABLES Final Result ISAAC [address] [facility] [place] [address] * (ABNORMAL) Iron profile w/ IBC (02/28/2025 12:03 PM CDT) Pathologist [facility] Iron 56 50 - 150 mcg/dL Comment:Testing performed by : [address] [address] TIBC 164(L) 250 - 400 mcg/dL ISAAC SERNA Comment:Testing performed by : [address] [address] Transferrin saturation 34 20 - 50 % ISAAC SERNA Comment:Testing performed by : [address] [address] Blood 02/28/2025 12:0 3 PM CDT 02/28/2025 1:32 PM CDT us Nena Cano NP LAB BLOOD ORDERABLES Final Result ISAAC [address] [facility] [place] [address] * (ABNORMAL) CBC with auto differential (02/28/2025 12:03 PM CDT) Pathologist [facility] WBC 1.77(L) 3.80 - 9.90 K/cumm Comment:Testing performed by : [address] [address] Hgb 9.3(L) 13.0 - 17.5 g/dL ISAAC SERNA Comment:Testing performed by : [address] [address] Hct 28.9(L) 38.9 - 50.3 % ISAAC SERNA Comment:Testing performed by : [address] [address] Plt 168 150 - 400 K/cumm ISAAC SERNA Comment:Testing performed by : [address] [address] MPV 9.5 9.1 - 12.3 fL ISAAC Comment:Testing performed by : [address] [address] RBC 3.22(L) 4.30 - 5.80 M/cumm ISAAC Comment:Testing performed by : [address] [address] MCV 89.8 81.3 - 96.4 fL ISAAC Comment:Testing performed by : [address] [address] MCH 28.9 27.1 - 33.3 pg ISAAC Comment:Testing performed by : [address] [address] MCHC 32.2(L) 32.3 - 35.7 g/dL ISAAC Comment:Testing performed by : [address] [address] RDW CV 18.7(H) 11.1 - 14.9 % ISAAC Comment:Testing performed by : [address] [address] RDW SD 58.7(H) 35.7 - 48.1 fL ISAAC Comment:Testing performed by : [address] [address] NRBC abs 0.00 0.00 - 0.01 K/cumm ISAAC Comment:Testing performed by : [address] [address] ANC Prelim 0.91(L) 1.50 - 6.50 K/cumm ISAAC Comment: Interpretive Data The rapid ANC is a preliminary automated count and may vary from the final ANC (Neut Abs) reported in the WBC differential that follows. Current interpretive data was last revised 2025. Testing performed by: [address] [address] Blood 02/28/2025 12:0 3 PM CDT 02/28/2025 12:05 PM CDT Bianca Hunter MD LAB BLOOD ORDERABLES Final Result DAYANA[address] [place] [address] * (ABNORMAL) Reticulocyte Count (02/28/2025 12:03 PM CDT) Pathologist [facility] Retics, absolute 86 20 - 87 K/cumm Comment:Testing performed by : [address] [address] Retics 2.7 0.4 - 2.9 % ISAAC Comment:Testing performed by : [address] [address] Reticulocyte Hgb 30.4(L) 30.5 - 38.0 pg ISAAC Comment:Testing performed by : [address] [address] Blood 02/28/2025 12:0 3 PM CDT 02/28/2025 12:05 PM CDT Nena Cano MECHANICAL EQUIPMENT TEST ENGINEER LAB BLOOD ORDERABLES Final Result Performing Organization Address [facility]/ZIP Co de Phone Number DAYANA[address] [address] * Ferritin (02/28/2025 12:03 PM CDT) [facility] Ferritin 208 30 - 400 ng/mL Comment:Testing performed by : [address] [address] Blood 02/28/2025 12:0 3 PM CDT 02/28/2025 1:32 PM CDT Nena Cano MECHANICAL EQUIPMENT TEST ENGINEER LAB BLOOD ORDERABLES Final Result DAYANA[address] [address] * (ABNORMAL) Comprehensive metabolic panel (02/28/2025 12:03 PM CDT) Sodium 138 135 - 145 mmol/L Comment:Testing performed by : [facility], [address] [place] [address], [place]., [address] Potassium, pl 3.6 3.3 - 4.9 mmol/L ISAAC Comment:Testing performed by : [address], [place]., [address] Chloride 106 97 - 110 mmol/L ISAAC Comment:Testing performed by : [address], [place]., [address] CO2 22 22 - 32 mmol/L ISAAC Comment:Testing performed by : [address], [place]., [address] Anion gap 10 2 - 15 mmol/L ISAAC Comment:Testing performed by : [address], [place]., [address] BUN 12 6 - 25 mg/dL ISAAC Comment:Testing performed by : [address], [place]., [address] Creatinine 1.10 0.80 - 1.30 mg/dL ISAAC Comment:Testing performed by : [address], [place]., [address] Glucose 91 70 - 199 mg/dL ISAAC [...] was last revised 2022. Testing performed by: [address] [address] Calcium 8.7 8.5 - 10.3 mg/dL ISAAC Comment:Testing performed by : [address], [place]., [address] Bilirubin, total 0.4 0.1 - 1.2 mg/dL ISAAC Comment:Testing performed by : [address] [address] Protein, pl 5.6(L) 6.5 - 8.5 g/dL ISAAC Comment:Testing performed by : [address] [address] Albumin 3.2(L) 3.5 - 5.0 g/dL ISAAC Comment:Testing performed by : [address], [address] Alk phos 64 40 - 130 Units/L ISAAC Comment:Testing performed by : [address] [address] ALT 14 7 - 55 Units/L ISAAC Comment:Testing performed by : [address] [address] AST 19 10 - 50 Units/L ISAAC Comment:Testing performed by : [address], [address] Blood 02/28/2025 12:0 3 PM CDT 02/28/2025 12:05 PM CDT us Bianca uHnter MD LAB BLOOD ORDERABLES Final Result ISAAC [address] [facility] [place] [address] * RAD ONC ARIA SESSION [...] Comment: Ref Range High Testing performed by: [facility], [address] [place] [address]., [address] INR 5.9(C) 0.9 - 1.2 ISAAC Comment: Ref Range High Critical value. Results called to and read back by: Critical Result called to and read back by Ceci Antony NP for [facility], DATE: 2025-02-24 18:09:13 BY: Adrianna Mascorro MLS [id number] Interpretive data Oral anticoagulant therapeutic ranges: Venous thromboembolism prophylaxis or treatment: 2.0-3.0 CARDIOLOGY Standard range: 2.0-3.0 High-intensity range: 2.5-3.5 Refer to indication-specific guidelines for appropriate target ranges for prosthetic heart valve replacement. Current interpretive data was last revised on 2019. Testing performed by: [facility], [address] [place] [address]., [address] Blood 02/24/2025 2:55 PM CDT 02/24/2025 4:04 PM CDT us Jas Alcala MD LAB BLOOD ORDERABLES Final R esult Performing Organization Address City/[facility]/ZIP Co de Phone Number [facility] [address] [facility] Department [place] [address] * RAD ONC ARIA SESSION [...] was last reviewed 2021. Testing performed by: [address] [address] Blood 02/23/2025 9:31 AM CDT 02/23/2025 9:46 AM CDT Bianca Hunter MD LAB BLOOD ORDERABLES Final Result [facility] [address] [facility] Department [place] [address] * (ABNORMAL) Differential, auto (02/23/2025 9:31 AM CDT) Neutrophil abs 0.19(C) 1.50 - 6.50 K/cumm Comment: This result has been called to Meme Dean RN Epic Secure Chat by [id number] on 02/23/2025 09:58:21, and has been read back. Testing performed by: [address] [address] Imm gran abs 0.01 0.00 - 0.10 K/cumm ISAAC Comment:Testing performed by : [address] [address] Lymphocyte abs 0.20(L) 0.80 - 3.30 K/cumm ISAAC Comment:Testing performed by : [address] [address] Monocyte abs 0.40 0.20 - 0.80 K/cumm ISAAC Comment:Testing performed by : [address] [address] Eosinophil abs 0.03 0.00 - 0.50 K/cumm ISAAC Comment:Testing performed by : [address] [address] Basophil abs 0.01 0.00 - 0.10 K/cumm ISAAC Comment:Testing performed by : [address] [address] Neutrophil pct 22.6 % ISAAC Comment: Interpretive Data Percent cell count reference ranges are not reported, since discordance with absolute values may lead to misinterpretation of CBC data. Current Interpretive Data was last revised on 2018. Testing performed by: [address] [address] Imm gran pct 1.2 % CERNER Comment: Interpretive Data Percent cell count reference ranges are not reported, since discordance with absolute values may lead to misinterpretation of CBC data. Current Interpretive Data was last revised on 2018. Testing performed by: [address] [address] Lymphocyte pct 23.8 % CERNER Comment: Interpretive Data Percent cell count reference ranges are not reported, since discordance with absolute values may lead to misinterpretation of CBC data. Current Interpretive Data was last revised on 2018. Testing performed by: [address] [address] Monocyte pct 47.6 % [facility] Comment: Interpretive Data Percent cell count reference ranges are not reported, since discordance with absolute values may lead to misinterpretation of CBC data. Current Interpretive Data was last revised on 2018. Testing performed by: [address] [address] Eosinophil pct 3.6 % [facility] Comment: Interpretive Data Percent cell count reference ranges are not reported, since discordance with absolute values may lead to misinterpretation of CBC data. Current Interpretive Data was last revised on 2018. Testing performed by: [address] [address] Basophil pct 1.2 % [facility] Comment: Interpretive Data Percent cell count reference ranges are not reported, since discordance with absolute values may lead to misinterpretation of CBC data. Current Interpretive Data was last revised on 2018. Testing performed by: [address] [address] Blood 02/23/2025 9:31 AM CDT 02/23/2025 9:46 AM CDT Bianca Hunter MD LAB BLOOD ORDERABLES Final Result [facility] [address] [facility] Department [place] [address] * (ABNORMAL) CBC with auto differential (02/23/2025 9:31 AM CDT) WBC 0.84(C) 3.80 - 9.90 K/cumm Comment: This result has been called to Meme Dean RN [employer] Secure Chat by [id number] on 02/23/2025 09:58:21, and has been read back. Testing performed by: [address] [address] Hgb 9.0(L) 13.0 - 17.5 g/dL [facility] Comment:Testing performed by : [address] [address] Hct 28.2(L) 38.9 - 50.3 % [facility] Comment:Testing performed by : [address] [address] Plt 164 150 - 400 K/cumm [facility] Comment:Testing performed by : [address] [address] MPV 9.3 9.1 - 12.3 fL [facility] Comment:Testing performed by : [address] [address] RBC 3.14(L) 4.30 - 5.80 M/cumm [facility] Comment:Testing performed by : [address] [address] MCV 89.8 81.3 - 96.4 fL [facility] Comment:Testing performed by : [address] [address] MCH 28.7 27.1 - 33.3 pg [facility] SERNA Comment:Testing performed by : [address] [address] MCHC 31.9(L) 32.3 - 35.7 g/dL [facility] Comment:Testing performed by : [address] [address] RDW CV 18.1(H) 11.1 - 14.9 % [facility] Comment:Testing performed by : [address] [address] RDW SD 57.3(H) 35.7 - 48.1 fL [facility] Comment:Testing performed by : [address] [address] NRBC abs 0.00 0.00 - 0.01 K/cumm [facility] Comment:Testing performed by : [address] [address] ANC Prelim 0.19(L) 1.50 - 6.50 K/cumm [facility] Comment: Interpretive Data The rapid ANC is a preliminary automated count and may vary from the final ANC (Neut Abs) reported in the WBC differential that follows. Current interpretive data was last revised 2025. Testing performed by: [address] [address] Morphologic Screen Results confirmed by manual morphology review. [facility] Comment:Testing performed by : [address] [address] Blood 02/23/2025 9:31 AM CDT 02/23/2025 9:46 AM CDT Bianca Hunter MD LAB BLOOD ORDERABLES Final Result [facility] [address] [facility] Department of Laboratories [place], [place] [id number] * (ABNORMAL) Protime-INR (02/23/2025 9:31 AM CDT) PT 49.1(H) 12.0 - 14.6 sec Comment: Ref Range High Testing performed by: [address] [address] INR 5.5(C) 0.9 - 1.2 [facility] Comment: Ref Range High Critical value. Results called to and read back by: Critical Result called to and read back by Meme Daen RN [employer] Secure [employer], DATE: 2025-02-23 11:55:31 BY: [id number] Interpretive data Oral anticoagulant therapeutic ranges: Venous thromboembolism prophylaxis or treatment: 2.0-3.0 CARDIOLOGY Standard range: 2.0-3.0 High-intensity range: 2.5-3.5 Refer to indication-specific guidelines for appropriate target ranges for prosthetic heart valve replacement. Current interpretive data was last revised on 2019. Testing performed by: [address] [address] Blood 02/23/2025 9:31 AM CDT 02/23/2025 11:32 AM CDT us Bianca Hunter MD LAB BLOOD ORDERABLES Final Result [facility] [address] [facility] Department [place] [address] * (ABNORMAL) Comprehensive metabolic panel (02/23/2025 9:31 AM CDT) Sodium 142 135 - 145 mmol/L Comment:Testing performed by : [address] [address] Potassium, pl 3.7 3.3 - 4.9 mmol/L [facility] Comment:Testing performed by : [address] [address] Chloride 109 97 - 110 mmol/L [facility] Comment:Testing performed by : [address] [address] CO2 22 22 - 32 mmol/L [facility] Comment:Testing performed by : [address] [address] Anion gap 11 2 - 15 mmol/L [facility] Comment:Testing performed by : [address] [address] BUN 15 6 - 25 mg/dL [facility] Comment:Testing performed by : [address] [address] Creatinine 1.20 0.80 - 1.30 mg/dL [facility] Comment:Testing performed by : [address] [address] Glucose 102 70 - 199 mg/dL [facility] [...] was last revised 2022. Testing performed by: [address] [address] Calcium 8.6 8.5 - 10.3 mg/dL [facility] Comment:Testing performed by : [address] [address] Bilirubin, total 0.4 0.1 - 1.2 mg/dL [facility] Comment:Testing performed by : [address] [address] Protein, pl 5.8(L) 6.5 - 8.5 g/dL [facility] Comment:Testing performed by : [address] [address] Albumin 3.2(L) 3.5 - 5.0 g/dL [facility] Comment:Testing performed by : [address] [address] Alk phos 58 40 - 130 Units/L [facility] Comment:Testing performed by : [address] [address] ALT 11 7 - 55 Units/L [facility] Comment:Testing performed by : [address] [address] AST 16 10 - 50 Units/L [facility] Comment:Testing performed by : [address] [address] Blood 02/23/2025 9:31 AM CDT 02/23/2025 9:46 AM CDT Bianca Hunter MD LAB BLOOD ORDERABLES Final Result [facility] [address] Department [place] [address] * RAD ONC ARIA SESSION SUMMARY (02/22/2025 [...] (02/20/2025 2:36 PM CDT) Course Name C1_Esoph_20 ARIA Course Plan [...] SUMMARY (02/17/2025 11:23 AM CDT) Course Name C1_Esoph_ ARIA Course [...] ERABLES Final Result ARIA * Transfuse RBC (02/16/2025 2:15 PM CDT) Blood us Janiya Sierra MD BLOOD TRANSFUSION ORDERABLES Fin al Result * RAD ONC ARIA SESSION SUMMARY (02/16/2025 11:15 AM CDT) Course Name C1_Esoph_ ARIA Course [...] ORD ERABLES Final Result Performing Organization Address [facility] de Phone Number ARIA * Prepare RBC: 1 Units (02/15/2025 1:40 PM CDT) Units requested 1 Comment:Testing performed by : [address] [address] Units requested Ready [facility] SERNA Comment:Testing performed by : [address] [address] Unit Number [id number] Product code [id number] [facility] Blood Expiration Date [facility] Product Blood Type (for scanning) [address] [facility] Product Blood Type APOS [facility] Dispense Status DISPENSED [facility] Blood 02/15/2025 1:40 PM CDT 02/15/2025 1:40 PM CDT us Bianca Hunter MD BLOOD BANK PRODUCT O RDERABLES Final Result Performing Organization Address City/[facility] Co de Phone Number [facility] [address] [facility] Department [place] [address] * Blood smear review (02/15/2025 12:27 PM CDT) RBC morphology Consistent with RBC Indicies Comment:Testing performed by : [address] [address] Platelet estimate Adequate [facility] SERNA Comment:Testing performed by : [address] [address] Blood 02/15/2025 12:2 7 PM CDT 02/15/2025 12:29 PM CDT us Nena Cano NP LAB BLOOD ORDERABLES Final Result Performing Organization Address [facility] Co de Phone Number [facility] [address] [place] [address] * (ABNORMAL) eGFR (02/15/2025 12:27 PM CDT) [...] was last reviewed 2021. Testing performed by: [facility], [address] [place] [address]., [address] Blood 02/15/2025 12:2 7 PM CDT 02/15/2025 12:29 PM CDT us Bianca Hunter MD LAB BLOOD ORDERABLES Final Result [facility] [address] Department [place] [address] * (ABNORMAL) Differential, auto (02/15/2025 12:27 PM CDT) Pathologist [facility] Neutrophil abs 0.66(L) 1.50 - 6.50 K/cumm Comment:Testing performed by : [facility], [address] [place] [address], [place]., [address] Imm gran abs 0.13(H) 0.00 - 0.10 K/cumm [facility] Comment:Testing performed by : [facility], [address] [place] [address], [place]., [address] Lymphocyte abs 0.03(L) 0.80 - 3.30 K/cumm [facility] Comment:Testing performed by : [address], [place]., [address] Monocyte abs 0.21 0.20 - 0.80 K/cumm [facility] Comment:Testing performed by : [address], [place]., [address] Eosinophil abs 0.04 0.00 - 0.50 K/cumm [facility] Comment:Testing performed by : [address], [place]., [address] Basophil abs 0.01 0.00 - 0.10 K/cumm [facility] Comment:Testing performed by : [address] [address] Neutrophil pct 61.2 % [facility] Comment: Interpretive Data Percent cell count reference ranges are not reported, since discordance with absolute values may lead to misinterpretation of CBC data. Current Interpretive Data was last revised on 2018. Testing performed by: [address] [address] Imm gran pct 12.0 % [facility] Comment: Interpretive Data Percent cell count reference ranges are not reported, since discordance with absolute values may lead to misinterpretation of CBC data. Current Interpretive Data was last revised on 2018. Testing performed by: [address] [address] Lymphocyte pct 2.8 % [facility] Comment: Interpretive Data Percent cell count reference ranges are not reported, since discordance with absolute values may lead to misinterpretation of CBC data. Current Interpretive Data was last revised on 2018. Testing performed by: [address], [place]., [address] Monocyte pct 19.4 % [facility] Comment: Interpretive Data Percent cell count reference ranges are not reported, since discordance with absolute values may lead to misinterpretation of CBC data. Current Interpretive Data was last revised on 2018. Testing performed by: [address] [address] Eosinophil pct 3.7 % [facility] Comment: Interpretive Data Percent cell count reference ranges are not reported, since discordance with absolute values may lead to misinterpretation of CBC data. Current Interpretive Data was last revised on 2018. Testing performed by: [address] [address] Basophil pct 0.9 % [facility] Comment: Interpretive Data Percent cell count reference ranges are not reported, since discordance with absolute values may lead to misinterpretation of CBC data. Current Interpretive Data was last revised on 2018. Testing performed by: [address] [address] Blood 02/15/2025 12:2 7 PM CDT 02/15/2025 12:29 PM CDT Nena Cano MECHANICAL EQUIPMENT TEST ENGINEER LAB BLOOD ORDERABLES Final Result [facility] [address] [facility] Department [place] [address] * (ABNORMAL) Iron profile w/ IBC (02/15/2025 12:27 PM CDT) Iron 43(L) 50 - 150 mcg/dL Comment:Testing performed by : [address] [address] TIBC 208(L) 250 - 400 mcg/dL [facility] Comment:Testing performed by : [address] [address] Transferrin saturation 21 20 - 50 % [facility] Comment:Testing performed by : [address] [address] Blood 02/15/2025 12:2 7 PM CDT 02/15/2025 1:39 PM CDT us Nena Mamta Lorenzocleo MECHANICAL EQUIPMENT TEST ENGINEER LAB BLOOD ORDERABLES Final Result [facility] [address] [facility] Department [place] [address] * (ABNORMAL) CBC with auto differential (02/15/2025 12:27 PM CDT) WBC 1.08(L) 3.80 - 9.90 K/cumm Comment:Testing performed by : [address] [address] Hgb 8.8(L) 13.0 - 17.5 g/dL [facility] Comment:Testing performed by : [address] [address] Hct 27.1(L) 38.9 - 50.3 % [facility] Comment:Testing performed by : [address] [address] Plt 136(L) 150 - 400 K/cumm [facility] Comment:Testing performed by : [address] [address] MPV 9.2 9.1 - 12.3 fL [facility] Comment:Testing performed by : [address] [address] RBC 3.00(L) 4.30 - 5.80 M/cumm [facility] Comment:Testing performed by : [address] [address] MCV 90.3 81.3 - 96.4 fL [facility] Comment:Testing performed by : [address] [address] MCH 29.3 27.1 - 33.3 pg [facility] Comment:Testing performed by : [address] [address] MCHC 32.5 32.3 - 35.7 g/dL [facility] Comment:Testing performed by : [address] [address] RDW CV 17.4(H) 11.1 - 14.9 % [facility] Comment:Testing performed by : [address] [address] RDW SD 54.7(H) 35.7 - 48.1 fL [facility] Comment:Testing performed by : [address] [address] NRBC abs 0.00 0.00 - 0.01 K/cumm [facility] Comment:Testing performed by : [address] [address] ANC Prelim 0.66(L) 1.50 - 6.50 K/cumm [facility] Comment: Interpretive Data The rapid ANC is a preliminary automated count and may vary from the final ANC (Neut Abs) reported in the WBC differential that follows. Current interpretive data was last revised 2025. Testing performed by: [address] [address] Blood 02/15/2025 12:2 7 PM CDT 02/15/2025 12:29 PM CDT Nena Cano NP LAB BLOOD ORDERABLES Final Result Performing Organization Address City/[facility]/ZIP Co de Phone Number [address] [place] [address] * ABO/Rh (02/15/2025 12:27 PM CDT) ABO/Rh A Positive Comment:Testing performed by : [address] [address] Blood 02/15/2025 12:2 7 PM CDT 02/15/2025 1:39 PM CDT Narrative [facility] - 02/15/2025 2:02 PM CDT Has the patient had Daratumumab or Isatuximab in the past 6 months?->Unknown Nena Cano NP LAB BLOOD BANK TEST ORDERAB LES Final Result Performing Organization Address City/[facility]/ZIP Co de Phone Number [place] [id number] [facility] [place] [address] * (ABNORMAL) Reticulocyte Count (02/15/2025 12:27 PM CDT) Pathologist [facility] Retics, absolute 17(L) 20 - 87 K/cumm Comment:Testing performed by : [address] [address] Retics 0.6 0.4 - 2.9 % [facility] Comment:Testing performed by : [address] [address] Reticulocyte Hgb 36.9 30.5 - 38.0 pg [facility] Comment:Testing performed by : [address] [address] Blood 02/15/2025 12:2 7 PM CDT 02/15/2025 12:29 PM CDT Nena Cano NP LAB BLOOD ORDERABLES Final Result Performing Organization Address City/[facility] Co de Phone Number [address] [place] [address] * Crossmatch (02/15/2025 12:27 PM CDT) [facility] Crossmatch Compatible [facility] Unit number for crossmatch [id number] [facility] Blood 02/15/2025 12:2 7 PM CDT 02/15/2025 1:39 PM CDT Bianca Hunter MD LAB BLOOD BANK TEST ORDERABLES Final Result [address] [place] [address] * Antibody screen (02/15/2025 12:27 PM CDT) [facility] Divina, indirect, Gel Interpretation Negative ABSC Comment:Testing performed by : [address] [address] Blood 02/15/2025 12:2 7 PM CDT 02/15/2025 1:39 PM CDT Narrative [facility] - 02/15/2025 2:15 PM CDT Has the patient had Daratumumab or Isatuximab in the past 6 months?->Unknown Nena Cano MECHANICAL EQUIPMENT TEST ENGINEER LAB BLOOD BANK TEST ORDERAB LES Final Result Performing Organization Address City/[facility] Co de Phone Number [address] [address] * Ferritin (02/15/2025 12:27 PM CDT) [facility] Ferritin 255 30 - 400 ng/mL Comment:Testing performed by : [address] [address] Blood 02/15/2025 12:2 7 PM CDT 02/15/2025 1:39 PM CDT Nena Cano MECHANICAL EQUIPMENT TEST ENGINEER LAB BLOOD ORDERABLES Final Result Performing Organization Address [facility] Co de Phone Number [address] [place] [address] * (ABNORMAL) Comprehensive metabolic panel (02/15/2025 12:27 PM CDT) [facility] Sodium 137 135 - 145 mmol/L Comment:Testing performed by : [address] [address] Potassium, pl 4.2 3.3 - 4.9 mmol/L [facility] Comment:Testing performed by : [address] [address] Chloride 106 97 - 110 mmol/L [facility] Comment:Testing performed by : [address] [address] CO2 22 22 - 32 mmol/L [facility] Comment:Testing performed by : [address] [address] Anion gap 9 2 - 15 mmol/L [facility] Comment:Testing performed by : [address] [address] BUN 13 6 - 25 mg/dL [facility] Comment:Testing performed by : [address] [address] Creatinine 1.40(H) 0.80 - 1.30 mg/dL [facility] Comment:Testing performed by : [address] [address] Glucose 108 70 - 199 mg/dL [facility] [...] was last revised 2022. Testing performed by: [address] [address] Calcium 8.8 8.5 - 10.3 mg/dL [facility] Comment:Testing performed by : [address] [address] Bilirubin, total 0.3 0.1 - 1.2 mg/dL [facility] Comment:Testing performed by : [address] [address] Protein, pl 6.1(L) 6.5 - 8.5 g/dL [facility] Comment:Testing performed by : [address] [address] Albumin 4.0 3.5 - 5.0 g/dL [facility] Comment:Testing performed by : [address] [address] Alk phos 61 40 - 130 Units/L [facility] Comment:Testing performed by : [address] [address] ALT 14 7 - 55 Units/L [facility] Comment:Testing performed by : [address] [address] AST 20 10 - 50 Units/L [facility] Comment:Testing performed by : [facility] [address] [place] [address], [place]., [address] Blood 02/15/2025 12:2 7 PM CDT 02/15/2025 12:29 PM CDT us Bianca Hunter MD LAB BLOOD ORDERABLES Final Result [facility] [address] [place] [address] * RAD ONC ARIA SESSION SUMMARY (02/15/2025 [...] DION * RAD ONC ARIA SESSION SUMMARY (02/13/2025 [...] ORD ERABLES Final Result Performing Organization Address [facility] Co de Phone Number DION * RAD [...] ONCOLOGY ORD ERABLES Final Result [facility] * CT Chest Abdomen Pelvis W Contrast (12/13/2024 7:09 AM 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) Anatomical Region Laterality Modality Body N/A Computed Tomogra phy 12/13/2024 7:26 AM 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 Impressions 12/13/2024 7:26 AM 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 1. Nondistended esophagus. No discrete esophageal lesion identified to correspond to known malignancy. 2. No evidence of metastatic disease in the chest, abdomen, and pelvis. Electronically signed by: Kvng Abebe 12/13/2024 7:26 AM 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 EXAMINATION: Computed tomography of the chest, abdomen [...] Res ult * Colonoscopy (11/17/2024 9:34 AM 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) Anatomical Region Laterality Modality Other Narrative Procedure Note Lucio Rosas MD - 11/17/2024 9:34 AM CST [facility] GI ENDOSCOPY Patient Name: Marshall Olson Procedure Date: 11/17/2024 9:34 AM Date of : 1950 Admit Type: Outpatient Age: 74 Gender: Male Attending MD: Lucio Rosas M.D. Room: [facility] ENDOSCOPY ROOM 03 Note Status: Finalized [...] The scope was passed under direct vision.The [id number]-[id number] colonoscope was introduced through theanus and advanced to the cecum, identified byappendiceal orifice and ileocecal valve. The scope was passed under direct vision. The [id number] colonoscope was introduced through the and advanced [...] On: 11/17/2024 9:34 AM Recognized by the [employer] for promoting quality in endoscopy Lucio Rosas MD ENDOSCOPY PROCEDURES Final Resul t from Last 3 Months or Most Recently Relevant to Health Maintenance Insurance [facility] MEDICARE ADVANTAGE MEDICARE [facility] MEDICARE ADVANTAGE MEDICARE Advance Directives For more information, please contact: [phone] * Full Code (Latest Code Status on File) Date Activated Date Inactivated Comments 01/11/2025 10:34 AM 01/12/2025 5:08 AM * Full Code Date Activated Date Inactivated Comments 12/13/2024 8:18 AM 12/13/2024 5:22 PM Care Teams Excavator Operator Relationship Specialty Start Date End Date Jas Alcala MD [address] [place] [address] PCP - General Internal Medicine 01/04/25 Lucio Rosas MD [address] [place] [address] [place] [address] Consulting Physician Gastroenterology 11/28/24 Bianca Hunter MD [address] [place] [address] [place] [address] Medical Oncologist/Senior Risk Manager Medical Oncology 12/07/24 Hero Pinedo MD [address] [place] [address] Radiation Oncologist Radiation Oncology 12/28/24 Lon Tomas MD [address] [place] [address] Consulting Physician Urology 01/04/25 Jaycee Teresa MD [address] [place] [address] Consulting Physician Cardiology 01/09/25
--- OUTSIDE RECORDS SUMMARY | 2025-05-12 11:51 | XMS_ITS | Data Portability ---
Author Organization [place] [facility], Main Office Address [address] [place] [address] Care Team Providers Care Brick Pointer Name Role Phone BUBBA ALCALA Primary Care Provider [phone] BUBBA ALCALA Referring Provider Assessment Encounter Date Assessment Date Assessment LastModified by Organization Details LastModified Time 08/04/2023 08/04/2023 Orders for INR given continue current therapy blood work avoid nonsteroidals will consider SLG T 2 inhibitor Follow-up in 3 months [id number] Not available 08/16/2023 17:34:29 09/29/2023 09/29/2023 The [...] Appointments None recorded. Lab PT/INR 2023 024 [email or web address] [facility] [address], [address], [place], [address], 4 17:00:45 CBC w/ auto diff 2023 024 [facility] (Lab), [address] [place], [address], 4 18:14:03 lipid panel, serum 2023 024 [facility] (Lab), [address] [place], [address], 4 19:14:27 CMP, serum or plasma 2023 024 [facility] (Lab), [address] [place], [address], 4 19:14:32 lipid panel, serum 2022 023 [facility] (Lab), [address] [place], [address], 3 19:23:51 CBC w/ auto diff 2022 023 [facility] (Lab), [address] [place], [address], 3 18:15:09 CMP, serum or plasma 2022 023 [facility] (Lab), [address] [place], [address], 3 19:23:45 PSA, serum or plasma 2022 023 [facility] (Lab), [address], [place], [address], 3 04:11:09 urinalysis, dipstick 2022 023 [email or web address] [facility], [address], [place], [address], 3 11:47:31 PT/INR 2022 023 [id number] [facility] [address], [address], [place], [address], 3 11:40:20 Referral None recorded. Procedures colonoscopy screening (PROC) 2023 024 [email or web address] Dinah Paz MD, [address] [facility], [address], [place], [address], 4 09:01:32 injection/a spiration joint/bursa (PROC) 2022 023 [id number] In-Office Order, Internal Use Only DO Not Attach Compendium DO Not Attach Compendium, Do Not Delete/merge, [id number] 11:05:49 Surgeries None recorded. Imaging XR, wrist 2022 023 [id number] [facility], [address], [place], [address], 3 11:41:42 US, bladder 2022 023 [email or web address] [facility], [address] [facility] [address], [place], [address], 3 11:47:49 Medication Orders bupivacaine HCl 0.5 % (5 mg/mL) injection solution 2022 023 [email or web address] [id number] [address] [place], [address], 3 11:41:42 Kenalog 10 mg/mL suspension for injection 2022 023 [email or web address] [id number] In [facility], [address] [place], [address], 11:41:42 prednisone 10 mg tablets in a dose pack 2022 023 [email or web address] [id number] In [facility], [address] [place], [address], 11:41:42 Patient TargetsNo targets recorded. Patient InstructionsNo instructions recorded. Reason for Referral None Reported. Results Created Date Observation Date Name Description Value Unit Range Abnormal Flag Note LastModifiedBy Organization Detail LastModifiedTime 04/22/20 23 04/22/2023 PT/IN R PT 22.1 Not Available [facility] [address], [place], [address], 04/22/2023 15:37:32 04/22/20 23 04/22/2023 PT/IN R INR 1.8 Not Available [facility] [address], [place], [address], 04/22/2023 15:37:32 05/06/20 23 05/06/2023 PT/IN R PT 27.2 Not Available [facility] [address], [place], [address], 05/06/2023 10:56:39 05/06/20 23 05/06/2023 PT/IN R INR 2.3 Not Available [facility] [address], [place], [address], 05/06/2023 10:56:39 05/13/20 23 05/13/2023 urina lysis , dipst ick Leukocytes (reference range: negative kenn/ l) Negati ve Not Available [facility] [address], [place], [address], 05/13/2023 10:12:04 05/13/20 23 05/13/2023 urina lysis , dipst ick Nitrite (reference rage: negative mg/dl) negati ve Not Available [facility] [address], [place], [address], 05/13/2023 10:12:04 05/13/20 23 05/13/2023 urina lysis , dipst ick Urobilinogen (reference range: 0.2-1 mg/dl) 0.2 Not Available [facility] [address], [place], [address], 05/13/2023 10:12:04 05/13/2005/13/2023 urina lysis , dipst ick Protein (reference range: negative mg/dl) Negati ve Not Available [facility] [address], [place], [address], 05/13/2023 10:12:04 05/13/2005/13/2023 urina lysis , dipst ick pH (reference range: 5-7) 5.5 Not Available [facility] [address], [place], [address], 05/13/2023 10:12:04 05/13/20 23 05/13/2023 urina lysis , dipst ick Blood (reference range: negative Jose G/ l) Negati ve Not Available [facility] [address], [place], [address], 05/13/2023 10:12:04 05/13/20 23 05/13/2023 urina lysis , dipst ick Specific [place] (reference range: 1.005-1.030) 1.020 Not Available [facility] [address], [place], [address], 05/13/2023 10:12:04 05/13/20 23 05/13/2023 urina lysis , dipst ick Ketone (reference range: negative mg/dl) Negati ve Not Available [facility] [address], [place], [address], 05/13/2023 10:12:04 05/13/20 23 05/13/2023 urina lysis , dipst ick Bilirubin (reference range: negative mg/dl) Negati ve Not Available [facility] [address], [place], [address], 05/13/2023 10:12:04 05/13/2005/13/2023 urina lysis , dipst ick Glucose (reference range: negative mg/dl) Negati ve Not Available [facility] [address], [place], [address], 05/13/2023 10:12:04 05/13/2005/13/2023 urina lysis , dipst ick Appearance Clear Not Available [facility] [address], [place], [address], 05/13/2023 10:12:04 05/13/2005/13/2023 urina lysis , dipst ick Color Yellow Not Available [facility] [address], [place], [address], 05/13/2023 10:12:04 06/04/20 23 06/04/2023 PT/IN R PT 45.5 Not Available [facility] [address], [place], [address], 06/04/2023 15:19:31 06/04/20 23 06/04/2023 PT/IN R INR 3.8 Not Available [facility] [address], [place], [address], 06/04/2023 15:19:31 06/17/20 23 06/17/2023 PT/IN R PT 21.7 Not Available [facility] [address], [place], [address], 06/17/2023 12:16:46 06/17/20 23 06/17/2023 PT/IN R INR 1.8 Not Available [facility] [address], [place], [address], 06/17/2023 12:16:46 07/01/20 23 07/01/2023 PT/IN R PT 43.4 Not Available [facility] [address], [place], [address], 07/01/2023 15:59:45 07/01/20 23 07/01/2023 PT/IN R INR 3.6 Not Available [facility] [address], [place], [address], 07/01/2023 15:59:45 07/15/20 23 07/15/2023 PT/IN R PT 31.1 Not Available [facility] [address], [place], [address], 07/15/2023 12:32:43 07/15/2007/15/2023 PT/IN R INR 2.6 Not Available [facility] [address], [place], [address], 07/15/2023 12:32:43 08/04/2008/04/2023 CBC/C OMPLE TE BLD COUNT W/DIF F white blood cells 6.0 x10'3 /uL 4.2-10 .8 Not Available [facility] (Lab) [address] [place], [address], 08/04/2023 18:15:09 08/04/2008/04/2023 CBC/C OMPLE TE BLD COUNT W/DIF F red blood cells 4.69 x10'6 /uL 4.10-5 .80 Not Available [facility] (Lab) [address] [place], [address], 08/04/2023 18:15:09 08/04/2008/04/2023 CBC/C OMPLE TE BLD COUNT W/DIF F hemoglobin 13.5 g/dL 13.2-1 7.0 Not Available [facility] (Lab) [address] [place], [address], 08/04/2023 18:15:09 08/04/2008/04/2023 CBC/C OMPLE TE BLD COUNT W/DIF F hematocrit 42.7 % 39.3-5 0.0 Not Available [facility] (Lab) [address] [place], [address], 08/04/2023 18:15:09 08/04/2008/04/2023 CBC/C OMPLE TE BLD COUNT W/DIF F mean red cell volume 91.0 fL 80.0-9 7.0 Not Available [facility] (Lab) [address] [place], [address], 08/04/2023 18:15:09 08/04/20 23 08/04/2023 CBC/C OMPLE TE BLD COUNT W/DIF F mean red cell hemoglobin 28.8 pg 27.0-3 3.0 Not Available [facility] (Lab) [address] [place], [address], 08/04/2023 18:15:09 08/04/20 23 08/04/2023 CBC/C OMPLE TE BLD COUNT W/DIF F mean RBC HGB concentratio n 31.6 g/dL 31.0-3 6.0 Not Available [facility] (Lab) [address] [place], [address], 08/04/2023 18:15:09 08/04/20 23 08/04/2023 CBC/C OMPLE TE BLD COUNT W/DIF F red cell distribution width 15.9 % 11.8-1 5.5 high Not Available [facility] (Lab) [address] [place], [address], 08/04/2023 18:15:09 08/04/2008/04/2023 CBC/C OMPLE TE BLD COUNT W/DIF F platelets 282 x10'3 /uL 150-40 0 Not Available [facility] (Lab) [address] [place], [address], 08/04/2023 18:15:09 08/04/2008/04/2023 CBC/C OMPLE TE BLD COUNT W/DIF F mean platelet volume 9.2 fL 9.0-12 .4 Not Available [facility] (Lab) [address] [place], [address], 08/04/2023 18:15:09 08/04/20 23 08/04/2023 CBC/C OMPLE TE BLD COUNT W/DIF F neutrophils 50.4 % 39.0-7 2.0 Not Available [facility] (Lab) [address] [place], [address], 08/04/2023 18:15:09 08/04/2008/04/2023 CBC/C OMPLE TE BLD COUNT W/DIF F lymphocytes 21.0 % 16.0-4 7.0 Not Available [facility] (Lab) [address] [place], [address], 08/04/2023 18:15:09 08/04/2008/04/2023 CBC/C OMPLE TE BLD COUNT W/DIF F monocytes 12.3 % 5.0-12 .0 high Not Available [facility] (Lab) [address] [place], [address], 08/04/2023 18:15:09 08/04/2008/04/2023 CBC/C OMPLE TE BLD COUNT W/DIF F eosinophils 14.6 % 1.0-7. 0 high Not Available [facility] (Lab) [address] [place], [address], 08/04/2023 18:15:09 08/04/2008/04/2023 CBC/C OMPLE TE BLD COUNT W/DIF F basophils 1.2 % 0.0-2. 0 Not Available [facility] (Lab) [address] [place], [address], 08/04/2023 18:15:09 08/04/2008/04/2023 CBC/C OMPLE TE BLD COUNT W/DIF F immature granulocytes 0.5 % 0.00-0 .50 Not Available [facility] (Lab) [address] [place], [address], 08/04/2023 18:15:09 08/04/2008/04/2023 CBC/C OMPLE TE BLD COUNT W/DIF F neutrophils, absolute count 3.03 x10'3 /uL 1.5-8. 0 Not Available [facility] (Lab) [address] [place], [address], 08/04/2023 18:15:09 08/04/2008/04/2023 CBC/C OMPLE TE BLD COUNT W/DIF F lymphocytes, absolute count 1.26 x10'3 /uL 1.07-3 .43 Not Available [facility] (Lab) [address] [place], [address], 08/04/2023 18:15:09 08/04/2008/04/2023 CBC/C OMPLE TE BLD COUNT W/DIF F monocytes, absolute count 0.74 x10'3 /uL 0.29-0 .99 Not Available [facility] (Lab) [address] [place], [address], 08/04/2023 18:15:09 08/04/2008/04/2023 CBC/C OMPLE TE BLD COUNT W/DIF F eosinophils, absolute count 0.88 x10'3 /uL 0.02-0 .53 high Not Available [facility] (Lab) [address] [place], [address], 08/04/2023 18:15:09 08/04/2008/04/2023 CBC/C OMPLE TE BLD COUNT W/DIF F basophils, absolute count 0.07 x10'3 /uL 0.01-0 .08 Not Available [facility] (Lab) [address] [place], [address], 08/04/2023 18:15:09 08/04/2008/04/2023 CBC/C OMPLE TE BLD COUNT W/DIF F immature granulocytes ,absolute 0.03 x10'3 /uL 0.00-0 .05 Not Available [facility] (Lab) [address] [place], [address], 08/04/2023 18:15:09 08/04/2008/04/2023 CBC/C OMPLE TE BLD COUNT W/DIF F nucleated red blood cells 0.0 % -0 Not Available [facility] (Lab) [address] [place], [address], 08/04/2023 18:15:09 08/04/20 23 08/04/2023 CBC/C OMPLE TE BLD COUNT W/DIF F NRBC# 0.00 x10'3 /uL Not Available [facility] (Lab) [address] [place], [address], 08/04/2023 18:15:09 08/04/2008/04/2023 COMPR EHENS SHYAM METAB OLIC PANEL sodium 139 mmol/ L 137-14 5 Not Available [facility] (Lab) [address] [place], [address], 08/04/2023 19:23:45 08/04/20 23 08/04/2023 COMPR EHENS SHYAM METAB OLIC PANEL potassium 4.8 mmol/ L 3.5-5. 1 Not Available [facility] (Lab) [address] [place], [address], 08/04/2023 19:23:45 08/04/20 23 08/04/2023 COMPR EHENS SHYAM METAB OLIC PANEL chloride 102 mmol/ L 98-107 Not Available [facility] (Lab) [address] [place], [address], 08/04/2023 19:23:45 08/04/20 23 08/04/2023 COMPR EHENS SHYAM METAB OLIC PANEL carbon dioxide 28 mmol/ L 22-30 Not Available [facility] (Lab) [address] [place], [address], 08/04/2023 19:23:45 08/04/20 23 08/04/2023 COMPR EHENS SHYAM METAB OLIC PANEL anion gap 13.8 mmol/ L 14-22 low Not Available [facility] (Lab) [address] [place], [address], 08/04/2023 19:23:45 08/04/2008/04/2023 COMPR EHENS SHYAM METAB OLIC PANEL glucose 86 mg/dL 70-99 Not Available [facility] (Lab) [address] [place], [address], 08/04/2023 19:23:45 08/04/2008/04/2023 COMPR EHENS SHYAM METAB OLIC PANEL BUN 24 mg/dL 8-19 high Not Available [facility] (Lab) [address] [place], [address], 08/04/2023 19:23:45 08/04/2008/04/2023 COMPR EHENS SHYAM METAB OLIC PANEL creatinine 1.61 mg/dL 0.66-1 .25 high Not Available [facility] (Lab) [address] [place], [address], 08/04/2023 19:23:45 08/04/2008/04/2023 COMPR EHENS SHYAM METAB OLIC PANEL GFR 42 Refer ence Range : Pixley ge GFR Healt hy Adult : >60 [...] of age, a pedia tric GFR calcu helen is avail able on the [facility] websi te: https :[email or web address] [email or web address] [email or web address] rg/pr ofess ional s/kdo qi/gf r_cal culat or Not Available [facility] (Lab) [address] [place], [address], 08/04/2023 19:23:45 08/04/20 23 08/04/2023 COMPR EHENS SHYAM METAB OLIC PANEL alkaline phosphatase 91 U/L 38-126 Not Available [facility] (Lab) [address] [place], [address], 08/04/2023 19:23:45 08/04/20 23 08/04/2023 COMPR EHENS SHYAM METAB OLIC PANEL alanine aminotransfe rase 17 U/L 0-50 Not Available [facility] (Lab) [address] [place], [address], 08/04/2023 19:23:45 08/04/20 23 08/04/2023 COMPR EHENS SHYAM METAB OLIC PANEL aspartate aminotransfe rase 26 U/L 15-46 Not Available [facility] (Lab) [address] [place], [address], 08/04/2023 19:23:45 08/04/2008/04/2023 COMPR EHENS SHYAM METAB OLIC PANEL bilirubin, total 0.50 mg/dL 0.20-1 .30 Not Available [facility] (Lab) [address] [place], [address], 08/04/2023 19:23:45 08/04/20 23 08/04/2023 COMPR EHENS SHYAM METAB OLIC PANEL calcium 9.6 mg/dL 8.4-10 .2 Not Available [facility] (Lab) [address] [place], [address], 08/04/2023 19:23:45 08/04/2008/04/2023 COMPR EHENS SHYAM METAB OLIC PANEL total protein 7.4 g/dL 6.3-8. 2 Not Available [facility] (Lab) [address] [place], [address], 08/04/2023 19:23:45 08/04/2008/04/2023 COMPR EHENS SHYAM METAB OLIC PANEL albumin 4.2 g/dL 3.0-4. 4 Not Available [facility] (Lab) [address] [place], [address], 08/04/2023 19:23:45 08/04/2008/04/2023 COMPR EHENS SHYAM METAB OLIC PANEL globulin 3.2 g/dL 2.6-4. 2 Not Available [facility] (Lab) [address] [place], [address], 08/04/2023 19:23:45 08/04/2008/04/2023 COMPR EHENS SHYAM METAB OLIC PANEL A/G ratio 1.3 ratio 1.0-2. 0 Not Available [facility] (Lab) [address] [place], [address], 08/04/2023 19:23:45 08/04/2008/04/2023 LIPID PANEL cholesterol 213 mg/dL 140-19 9 high NIH AYO NSUS RECOM MENDA TION FOR FAISAL STERO L: ADULT CHILD LOW RISK: <200 <170 BORDE RLINE : <200- 239 ----- HIGH RISK: >240 >200 Not Available [facility] (Lab) [address] [place], [address], 08/04/2023 19:23:51 08/04/2008/04/2023 LIPID PANEL triglyceride s 171 mg/dL 0-150 high NIH AYO NSUS REPOR T RECOM MENDA TION FOR TRIGL YCERI JARVIS: ADULT CHILD LOW RISK: <150 ----- BODER LINE: 150-1 99 ----- HIGH RISK: >200 ----- Not Available [facility] (Lab) [address] [place], [address], 08/04/2023 19:23:51 08/04/2008/04/2023 LIPID PANEL HDL cholesterol 58 mg/dL 40- Not Available [facility] (Lab) [address] [place], [address], 08/04/2023 19:23:51 08/04/2008/04/2023 LIPID PANEL LDL cholesterol, [...] WILL NOT BE REPOR MYRTLE. Not Available [facility] (Lab) [address] [place], [address], 08/04/2023 19:23:51 08/04/2008/05/2023 PSA, TOTAL PSA, total <0.064 NG/mL 0.00-4 .00 Not Available [facility] (Lab) [address] [place], [address], 08/05/2023 19:37:51 09/01/2009/01/2023 CBC/C OMPLE TE BLD COUNT W/DIF F white blood cells 5.8 x10'3 /uL 4.2-10 .8 Not Available [facility] (Lab) [address] [place], [address], 09/01/2023 16:47:48 09/01/2009/01/2023 CBC/C OMPLE TE BLD COUNT W/DIF F red blood cells 4.53 x10'6 /uL 4.10-5 .80 Not Available [facility] (Lab) [address] [place], [address], 09/01/2023 16:47:48 09/01/2009/01/2023 CBC/C OMPLE TE BLD COUNT W/DIF F hemoglobin 13.2 g/dL 13.2-1 7.0 Not Available [facility] (Lab) [address] [place], [address], 09/01/2023 16:47:48 09/01/2009/01/2023 CBC/C OMPLE TE BLD COUNT W/DIF F hematocrit 42.0 % 39.3-5 0.0 Not Available [facility] (Lab) [address] [place], [address], 09/01/2023 16:47:48 09/01/2009/01/2023 CBC/C OMPLE TE BLD COUNT W/DIF F mean red cell volume 92.7 fL 80.0-9 7.0 Not Available [facility] (Lab) [address] [place], [address], 09/01/2023 16:47:48 09/01/2009/01/2023 CBC/C OMPLE TE BLD COUNT W/DIF F mean red cell hemoglobin 29.1 pg 27.0-3 3.0 Not Available [facility] (Lab) [address] [place], [address], 09/01/2023 16:47:48 09/01/2009/01/2023 CBC/C OMPLE TE BLD COUNT W/DIF F mean RBC HGB concentratio n 31.4 g/dL 31.0-3 6.0 Not Available [facility] (Lab) [address] [place], [address], 09/01/2023 16:47:48 09/01/2009/01/2023 CBC/C OMPLE TE BLD COUNT W/DIF F red cell distribution width 15.6 % 11.8-1 5.5 high Not Available [facility] (Lab) [address] [place], [address], 09/01/2023 16:47:48 09/01/2009/01/2023 CBC/C OMPLE TE BLD COUNT W/DIF F platelets 315 x10'3 /uL 150-40 0 Not Available [facility] (Lab) [address] [place], [address], 09/01/2023 16:47:48 09/01/2009/01/2023 CBC/C OMPLE TE BLD COUNT W/DIF F mean platelet volume 8.8 fL 9.0-12 .4 low Not Available [facility] (Lab) [address] [place], [address], 09/01/2023 16:47:48 09/01/2009/01/2023 CBC/C OMPLE TE BLD COUNT W/DIF F neutrophils 54.1 % 39.0-7 2.0 Not Available [facility] (Lab) [address] [place], [address], 09/01/2023 16:47:48 09/01/2009/01/2023 CBC/C OMPLE TE BLD COUNT W/DIF F lymphocytes 19.7 % 16.0-4 7.0 Not Available [facility] (Lab) [address] [place], [address], 09/01/2023 16:47:48 09/01/2009/01/2023 CBC/C OMPLE TE BLD COUNT W/DIF F monocytes 14.1 % 5.0-12 .0 high Not Available [facility] (Lab) [address] [place], [address], 09/01/2023 16:47:48 09/01/2009/01/2023 CBC/C OMPLE TE BLD COUNT W/DIF F eosinophils 10.0 % 1.0-7. 0 high Not Available [facility] (Lab) [address] [place], [address], 09/01/2023 16:47:48 09/01/2009/01/2023 CBC/C OMPLE TE BLD COUNT W/DIF F basophils 1.4 % 0.0-2. 0 Not Available [facility] (Lab) [address] [place], [address], 09/01/2023 16:47:48 09/01/2009/01/2023 CBC/C OMPLE TE BLD COUNT W/DIF F immature granulocytes 0.7 % 0.00-0 .50 high Not Available [facility] (Lab) [address] [place], [address], 09/01/2023 16:47:48 09/01/2009/01/2023 CBC/C OMPLE TE BLD COUNT W/DIF F neutrophils, absolute count 3.14 x10'3 /uL 1.5-8. 0 Not Available [facility] (Lab) [address] [place], [address], 09/01/2023 16:47:48 09/01/2009/01/2023 CBC/C OMPLE TE BLD COUNT W/DIF F lymphocytes, absolute count 1.14 x10'3 /uL 1.07-3 .43 Not Available [facility] (Lab) [address] [place], [address], 09/01/2023 16:47:48 09/01/2009/01/2023 CBC/C OMPLE TE BLD COUNT W/DIF F monocytes, absolute count 0.82 x10'3 /uL 0.29-0 .99 Not Available [facility] (Lab) [address] [place], [address], 09/01/2023 16:47:48 09/01/2009/01/2023 CBC/C OMPLE TE BLD COUNT W/DIF F eosinophils, absolute count 0.58 x10'3 /uL 0.02-0 .53 high Not Available [facility] (Lab) [address] [place], [address], 09/01/2023 16:47:48 09/01/2009/01/2023 CBC/C OMPLE TE BLD COUNT W/DIF F basophils, absolute count 0.08 x10'3 /uL 0.01-0 .08 Not Available [facility] (Lab) [address] [place], [address], 09/01/2023 16:47:48 09/01/2009/01/2023 CBC/C OMPLE TE BLD COUNT W/DIF F immature granulocytes ,absolute 0.04 x10'3 /uL 0.00-0 .05 Not Available [facility] (Lab) [address] [place], [address], 09/01/2023 16:47:48 09/01/2009/01/2023 CBC/C OMPLE TE BLD COUNT W/DIF F nucleated red blood cells 0.0 % -0 Not Available [facility] (Lab) [address] [place], [address], 09/01/2023 16:47:48 09/01/2009/01/2023 CBC/C OMPLE TE BLD COUNT W/DIF F NRBC# 0.00 x10'3 /uL Not Available [facility] (Lab) [address] [place], [address], 09/01/2023 16:47:48 09/01/20 23 09/01/2023 BASIC METAB OLIC PANEL sodium 139 mmol/ L 137-14 5 Not Available [facility] (Lab) [address] [place], [address], 09/01/2023 18:00:43 09/01/2009/01/2023 BASIC METAB OLIC PANEL potassium 4.7 mmol/ L 3.5-5. 1 Not Available [facility] (Lab) [address] [place], [address], 09/01/2023 18:00:43 09/01/2009/01/2023 BASIC METAB OLIC PANEL chloride 106 mmol/ L 98-107 Not Available [facility] (Lab) [address] [place], [address], 09/01/2023 18:00:43 09/01/2009/01/2023 BASIC METAB OLIC PANEL carbon dioxide 29 mmol/ L 22-30 Not Available [facility] (Lab) [address] [place], [address], 09/01/2023 18:00:43 09/01/2009/01/2023 BASIC METAB OLIC PANEL anion gap 8.7 mmol/ L 14-22 low Not Available [facility] (Lab) [address] [place], [address], 09/01/2023 18:00:43 09/01/2009/01/2023 BASIC METAB OLIC PANEL glucose 77 mg/dL 70-99 Not Available [facility] (Lab) [address] [place], [address], 09/01/2023 18:00:43 09/01/2009/01/2023 BASIC METAB OLIC PANEL BUN 18 mg/dL 8-19 Not Available [facility] (Lab) [address] [place], [address], 09/01/2023 18:00:43 09/01/20 23 09/01/2023 BASIC METAB OLIC PANEL creatinine 1.70 mg/dL 0.66-1 .25 high Not Available [facility] (Lab) [address] [place], [address], 09/01/2023 18:00:43 09/01/2009/01/2023 BASIC METAB OLIC PANEL GFR 40 Refer ence Range : [place] ge GFR He[facility] hy Adult : >60 [...] calcu lator is avail able on the [facility] websi te: [email or web address] :[email or web address] rg/pr ofess ional s/kdo qi/gf r_cal culat or Not Available [facility] (Lab) [address] [place], [address], 09/01/2023 18:00:43 09/01/2009/01/2023 BASIC METAB OLIC PANEL calcium 9.2 mg/dL 8.4-10 .2 Not Available [facility] (Lab) [address] [place], [address], 09/01/2023 18:00:43 09/01/2009/01/2023 PT/IN R PT 54.1 Not Available [facility] Internal Med [facility] [address], [place], [address], 09/01/2023 14:17:57 09/01/20 23 09/01/2023 PT/IN R INR 4.5 Not Available [facility] Internal Med [facility] [address], [place], [address], 09/01/2023 14:17:57 10/07/20 23 10/07/2023 PT/IN R PT 32.8 Not Available [facility] Internal Med [facility] [address], [place], [address], 10/07/2023 10:19:26 10/07/20 23 10/07/2023 PT/IN R INR 2.7 Not Available [facility] [address], [place], [address], 10/07/2023 10:19:26 11/09/19 24 11/09/2023 CBC/C OMPLE TE BLD COUNT W/DIF F white blood cells 5.5 x10'3 /uL 4.2-10 .8 Not Available [facility] (Lab) [address] [place], [address], 11/09/2023 18:14:03 11/09/19 24 11/09/2023 CBC/C OMPLE TE BLD COUNT W/DIF F red blood cells 4.47 x10'6 /uL 4.10-5 .80 Not Available [facility] (Lab) [address] [place], [address], 11/09/2023 18:14:03 11/09/19 24 11/09/2023 CBC/C OMPLE TE BLD COUNT W/DIF F hemoglobin 13.0 g/dL 13.2-1 7.0 low Not Available [facility] (Lab) [address] [place], [address], 11/09/2023 18:14:03 11/09/19 24 11/09/2023 CBC/C OMPLE TE BLD COUNT W/DIF F hematocrit 41.4 % 39.3-5 0.0 Not Available [facility] (Lab) [address] [place], [address], 11/09/2023 18:14:03 11/09/19 24 11/09/2023 CBC/C OMPLE TE BLD COUNT W/DIF F mean red cell volume 92.6 fL 80.0-9 7.0 Not Available [facility] (Lab) [address] [place], [address], 11/09/2023 18:14:03 11/09/19 24 11/09/2023 CBC/C OMPLE TE BLD COUNT W/DIF F mean red cell hemoglobin 29.1 pg 27.0-3 3.0 Not Available [facility] (Lab) [address] [place], [address], 11/09/2023 18:14:03 11/09/19 24 11/09/2023 CBC/C OMPLE TE BLD COUNT W/DIF F mean RBC HGB concentratio n 31.4 g/dL 31.0-3 6.0 Not Available [facility] (Lab) [address] [place], [address], 11/09/2023 18:14:03 11/09/19 24 11/09/2023 CBC/C OMPLE TE BLD COUNT W/DIF F red cell distribution width 16.0 % 11.8-1 5.5 high Not Available [facility] (Lab) [address] [place], [address], 11/09/2023 18:14:03 11/09/19 24 11/09/2023 CBC/C OMPLE TE BLD COUNT W/DIF F platelets 257 x10'3 /uL 150-40 0 Not Available [facility] (Lab) [address] [place], [address], 11/09/2023 18:14:03 11/09/19 24 11/09/2023 CBC/C OMPLE TE BLD COUNT W/DIF F mean platelet volume 8.8 fL 9.0-12 .4 low Not Available [facility] (Lab) [address] [place], [address], 11/09/2023 18:14:03 11/09/19 24 11/09/2023 CBC/C OMPLE TE BLD COUNT W/DIF F neutrophils 51.5 % 39.0-7 2.0 Not Available [facility] (Lab) [address] [place], [address], 11/09/2023 18:14:03 11/09/19 24 11/09/2023 CBC/C OMPLE TE BLD COUNT W/DIF F lymphocytes 22.0 % 16.0-4 7.0 Not Available [facility] (Lab) [address] [place], [address], 11/09/2023 18:14:03 11/09/19 24 11/09/2023 CBC/C OMPLE TE BLD COUNT W/DIF F monocytes 10.8 % 5.0-12 .0 Not Available [facility] (Lab) [address] [place], [address], 11/09/2023 18:14:03 11/09/19 24 11/09/2023 CBC/C OMPLE TE BLD COUNT W/DIF F eosinophils 13.9 % 1.0-7. 0 high Not Available [facility] (Lab) [address] [place], [address], 11/09/2023 18:14:03 11/09/19 24 11/09/2023 CBC/C OMPLE TE BLD COUNT W/DIF F basophils 1.4 % 0.0-2. 0 Not Available [facility] (Lab) [address] [place], [address], 11/09/2023 18:14:03 11/09/19 24 11/09/2023 CBC/C OMPLE TE BLD COUNT W/DIF F immature granulocytes 0.4 % 0.00-0 .50 Not Available [facility] (Lab) [address] [place], [address], 11/09/2023 18:14:03 11/09/19 24 11/09/2023 CBC/C OMPLE TE BLD COUNT W/DIF F neutrophils, absolute count 2.85 x10'3 /uL 1.5-8. 0 Not Available [facility] (Lab) [address] [place], [address], 11/09/2023 18:14:03 11/09/19 24 11/09/2023 CBC/C OMPLE TE BLD COUNT W/DIF F lymphocytes, absolute count 1.22 x10'3 /uL 1.07-3 .43 Not Available [facility] (Lab) [address] [place], [address], 11/09/2023 18:14:03 11/09/19 24 11/09/2023 CBC/C OMPLE TE BLD COUNT W/DIF F monocytes, absolute count 0.60 x10'3 /uL 0.29-0 .99 Not Available [facility] (Lab) [address] [place], [address], 11/09/2023 18:14:03 11/09/19 24 11/09/2023 CBC/C OMPLE TE BLD COUNT W/DIF F eosinophils, absolute count 0.77 x10'3 /uL 0.02-0 .53 high Not Available [facility] (Lab) [address] [place], [address], 11/09/2023 18:14:03 11/09/19 24 11/09/2023 CBC/C OMPLE TE BLD COUNT W/DIF F basophils, absolute count 0.08 x10'3 /uL 0.01-0 .08 Not Available [facility] (Lab) [address] [place], [address], 11/09/2023 18:14:03 11/09/19 24 11/09/2023 CBC/C OMPLE TE BLD COUNT W/DIF F immature granulocytes ,absolute 0.02 x10'3 /uL 0.00-0 .05 Not Available [facility] (Lab) [address] [place], [address], 11/09/2023 18:14:03 11/09/19 24 11/09/2023 CBC/C OMPLE TE BLD COUNT W/DIF F nucleated red blood cells 0.0 % -0 Not Available [facility] (Lab) [address] [place], [address], 11/09/2023 18:14:03 11/09/19 24 11/09/2023 CBC/C OMPLE TE BLD COUNT W/DIF F NRBC# 0.00 x10'3 /uL Not Available [facility] (Lab) [address] [place], [address], 11/09/2023 18:14:03 11/09/19 24 11/09/2023 LIPID PANEL cholesterol 132 mg/dL 140-19 9 low NIH AYO NSUS RECOM MENDA TION FOR FAISAL STERO L: ADULT CHILD LOW RISK: <200 <170 BORDE RLINE : <200- 239 ----- HIGH RISK: >240 >200 Not Available [facility] (Lab) [address] [place], [address], 11/09/2023 19:14:27 11/09/19 24 11/09/2023 LIPID PANEL triglyceride s 92 mg/dL 0-150 NIH AYO NSUS REPOR T RECOM MENDA TION FOR TRIGL YCERI JARVIS: ADULT CHILD LOW RISK: <150 ----- BODER LINE: 150-1 99 ----- HIGH RISK: >200 ----- Not Available [facility] (Lab) [address] [place], [address], 11/09/2023 19:14:27 11/09/19 24 11/09/2023 LIPID PANEL HDL cholesterol 66 mg/dL 40- Not Available [facility] (Lab) [address] [place], [address], 11/09/2023 19:14:27 11/09/19 24 11/09/2023 LIPID PANEL [...] WILL NOT BE REPOR MYRTLE. Not Available [facility] (Lab) [address] [place], [address], 11/09/2023 19:14:27 11/09/19 24 11/09/2023 COMPR EHENS SHYAM METAB OLIC PANEL sodium 139 mmol/ L 137-14 5 Not Available [facility] (Lab) [address] [place], [address], 11/09/2023 19:14:32 11/09/19 24 11/09/2023 COMPR EHENS SHYAM METAB OLIC PANEL potassium 4.5 mmol/ L 3.5-5. 1 Not Available [facility] (Lab) [address] [place], [address], 11/09/2023 19:14:32 11/09/19 24 11/09/2023 COMPR EHENS SHYAM METAB OLIC PANEL chloride 104 mmol/ L 98-107 Not Available [facility] (Lab) [address] [place], [address], 11/09/2023 19:14:32 11/09/19 24 11/09/2023 COMPR EHENS SHYAM METAB OLIC PANEL carbon dioxide 27 mmol/ L 22-30 Not Available [facility] (Lab) [address] [place], [address], 11/09/2023 19:14:32 11/09/19 24 11/09/2023 COMPR EHENS SHYAM METAB OLIC PANEL anion gap 12.5 mmol/ L 14-22 low Not Available [facility] (Lab) [address] [place], [address], 11/09/2023 19:14:32 11/09/19 24 11/09/2023 COMPR EHENS SHYAM METAB OLIC PANEL glucose 87 mg/dL 70-99 Not Available [facility] (Lab) [address] [place], [address], 11/09/2023 19:14:32 11/09/19 24 11/09/2023 COMPR EHENS SHYAM METAB OLIC PANEL BUN 19 mg/dL 8-19 Not Available [facility] (Lab) [address] [place], [address], 11/09/2023 19:14:32 11/09/19 24 11/09/2023 COMPR EHENS SHYAM METAB OLIC PANEL creatinine 1.49 mg/dL 0.66-1 .25 high Not Available [facility] (Lab) [address] [place], [address], 11/09/2023 19:14:32 11/09/19 24 11/09/2023 COMPR EHENS SHYAM METAB OLIC PANEL GFR 46 Refer ence Range : Pixley ge GFR Healt hy Adult : >60 [...] calcu lator is avail able on the [facility] websi te: [email or web address] :[email or web address] rg/pr ofess ional s/kdo qi/gf r_cal culat or Not Available [facility] (Lab) [address] [place], [address], 11/09/2023 19:14:32 11/09/19 24 11/09/2023 COMPR EHENS SHYAM METAB OLIC PANEL alkaline phosphatase 71 U/L 38-126 Not Available [facility] (Lab) [address] [place], [address], 11/09/2023 19:14:32 11/09/19 24 11/09/2023 COMPR EHENS SHYAM METAB OLIC PANEL alanine aminotransfe rase 18 U/L 0-50 Not Available [facility] (Lab) [address] [place], [address], 11/09/2023 19:14:32 11/09/19 24 11/09/2023 COMPR EHENS SHYAM METAB OLIC PANEL aspartate aminotransfe rase 30 U/L 15-46 Not Available [facility] (Lab) [address] [place], [address], 11/09/2023 19:14:32 11/09/19 24 11/09/2023 COMPR EHENS SHYAM METAB OLIC PANEL bilirubin, total 0.40 mg/dL 0.20-1 .30 Not Available [facility] (Lab) [address] [place], [address], 11/09/2023 19:14:32 11/09/19 24 11/09/2023 COMPR EHENS SHYAM METAB OLIC PANEL calcium 9.5 mg/dL 8.4-10 .2 Not Available [facility] (Lab) [address] [place], [address], 11/09/2023 19:14:32 11/09/19 24 11/09/2023 COMPR EHENS SHYAM METAB OLIC PANEL total protein 7.2 g/dL 6.3-8. 2 Not Available [facility] (Lab) [address] [place], [address], 11/09/2023 19:14:32 11/09/19 24 11/09/2023 COMPR EHENS SHYAM METAB OLIC PANEL albumin 4.1 g/dL 3.0-4. 4 Not Available [facility] (Lab) [address] [place], [address], 11/09/2023 19:14:32 11/09/19 24 11/09/2023 COMPR EHENS SHYAM METAB OLIC PANEL globulin 3.1 g/dL 2.6-4. 2 Not Available [facility] (Lab) [address] [place], [address], 11/09/2023 19:14:32 11/09/19 24 11/09/2023 COMPR EHENS SHYAM METAB OLIC PANEL A/G ratio 1.3 ratio 1.0-2. 0 Not Available [facility] (Lab) [address] [place], [address], 11/09/2023 19:14:32 11/09/19 24 11/09/2023 PT/IN R PT 27.1 Not Available [facility] Internal Med [facility] [address] [facility] [address], [place], [address], 11/09/2023 16:05:16 11/09/19 24 11/09/2023 PT/IN R INR 2.3 Not Available [facility] Internal Med [facility] [address], [place], [address], 11/09/2023 16:05:16 02/03/20 24 02/03/2024 PROTI ME W/INR protime 17.9 secon ds 9.4-11 .9 high Not Available [facility] (Lab) [address] [place], [address], 02/03/2024 14:28:13 02/03/20 24 02/03/2024 PROTI ME [...] HOSPH OLIPI D SYNDR OME. Not Available [facility] (Lab) [address] [facility], [place], [address], 02/03/2024 14:28:13 02/08/20 24 02/08/2024 PROTI ME W/INR protime 18.2 secon ds 9.4-11 .9 high Not Available [facility] (Lab) [address] [place], [address], 02/08/2024 12:48:29 02/08/20 24 02/08/2024 PROTI ME [...] HOSPH OLIPI D SYNDR OME. Not Available [facility] (Lab) [address] [place], [address], 02/08/2024 12:48:29 02/15/20 24 02/15/2024 PROTI ME W/INR protime 18.0 secon ds 9.4-11 .9 high Not Available [facility] (Lab) [address] [place], [address], 02/15/2024 14:46:39 02/15/20 24 02/15/2024 PROTI ME [...] HOSPH OLIPI D SYNDR OME. Not Available [facility] (Lab) [address], [place], [address], 02/15/2024 14:46:39 05/13/20 23 05/13/2023 US, bladd er No observ ation record ed. [email or web address] [facility] [address] [facility] [address], [place], [address], 05/13/2023 12:47:41 05/19/2005/19/2023 XR, foot [facility] [address], [place] [address] Patien t Name: BRENNEN OLSON ion #: [id number] Sex: M : 1949 0 Dictat [...] at 2022 12:25: 27 PM Page 1 [email or web address] [facility] (Imaging) [address] [place], [address], 09/18/2023 21:52:16 09/29/20 23 XR, wrist No observ ation record ed. [email or web address] [facility] [address] [facility], [place], [address], 09/29/2023 11:26:17 11/10/19 24 10/01/2023 CT, abdom en + pelvi s, w/wo contr ast No observ ation record ed. BARCODE Not Available 2023 12:57:54 Result Notes Documentation Provider Name and Address Organization Details Recorded Time Xr, Foot : [facility] [address] [place] [address] Patient Name: BRENNEN OLSON Sex: M : 1950 Dictated By: Nahun Preston Attending Physician: BUBBA ALCALA Ordering Physician: EDMOND MAC Exam Date: 05/19/2023 10:51 AM Exam Name: XR FOOT LT 3V+ Admitting Diagnosis(es): Clinical Indication: PAIN LT TOE Comparison: None FINDINGS: AP, oblique, and lateral views of the left foot show normal alignment without fractures or dislocations. The first MTP joint is noted.. The talar dome is normal. Calcaneal spur noted. There is no soft tissue swelling or radiopaque foreign bodies. If there is further concern, recommend follow-up radiographs or bone scan for complete assessment. IMPRESSION: 1. No acute fractures identified. Arthritic changes at the first MTP joint 2. Calcaneal spur. If there is concern for plantar fasciitis, consider MRI Page 1 Bubba Alcala MD [address] [facility], [address], [place], [address], [facility] [employer] [facility] 09/18/2023 21:52:16 Problems Name Problem SNOMED Code Status Onset Date Resolution Date Notes Provider Name and Address Organization Details Recorded Time Neck pain 23802624 Active 2022 NORA Servin null, [facility] 3 10:26:28 Pain of toe of left foot 74023167101 9108 Active 2022 Ingris Hunter RN null, [facility] 3 14:39:12 History of pulmonar y embolus 863281597 Active 2022 Bubba Alcala MD [address], [address], [place], [address] , [facility] 3 17:30:45 Hyperlip idemia 52696149 Active 2022 Jocy Keene null, [facility] 3 14:51:26 Pain of left wrist 36976993369 9102 Active 2022 Marisel Montana CNA null, [facility] 3 10:42:51 Arthriti s of first carpomet acarpal joint of left hand 52750531175 [address]57 Active 2022 Marisel Montana CNA null, [facility] 3 11:03:17 Sprain of left wrist 26159134358 106336 Active 2022 BENEDICT Chase [address], [place], [address] , [facility] 3 11:25:17 Rectal hemorrha ge 45569354 Active 2023 NORA Davidson null, [facility] 4 16:55:52 Laborato ry test result abnormal 067148294 Active 2023 NORA Davidson null, [facility] 4 12:04:11 Disorder of salivary gland 84787624 Active 2021 Not Available [facility] 3 03:26:28 Nonische guanaco congesti ve cardiomy opathy 74415002651 4 Active 2018 cardiac catheter ization EF 40- 45% 2019 Not Available [facility] 3 03:26:28 Disorder of shoulder 239783732 Active Not Available [facility] 3 03:26:28 Pain in right sacroili ac joint 78923726347 670421 Active 2022 Not Available [facility] 3 03:26:28 Cellulit is 178973281 Completed Not Available [facility] 3 03:26:28 Abnormal radionuc lide scan 839421092 Active 2019 indeterm inate V/Q scan while on Eliquis patient was started on Coumadin and treated as Eliquis failure could not do CT angiogra m Not Available [facility] 3 03:26:28 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 31624542129 9106 Active 2021 Not Available [facility] 3 03:26:28 Pain of left shoulder joint 63120800451 462417 Active 2022 Not Available [facility] 3 03:26:28 Bruising symptom 094963210 Completed Not Available [facility] 3 03:26:28 Increase d frequenc y of urinatio n 628637704 Active 2021 Not Available [facility] 3 03:26:28 Anticoag ulant therapy Active 2021 Not Available [facility] 3 03:26:29 Microsco pic hematuri a 972743531 Active 2021 Not Available [facility] 3 03:26:29 Partial thicknes s rotator cuff tear 719921833 Active 2022 Not Available [facility] 3 03:26:29 Partial thicknes s rotator cuff tear Active 2022 Not Available [facility] 3 03:26:29 Abdomina l pain 07643602 Completed Not Available [facility] 3 03:26:29 Gastroes ophageal reflux disease 124139964 Active Not Available [facility] 3 03:26:29 Ventricu lar tachycar megan 70854023 Active 2021 ablation [facility] t June 2022 Not Available [facility] 3 03:26:29 Shoulder joint pain 983911446 Active Not Available [facility] 3 03:26:29 Eruption 769228989 Completed Not Available [facility] 3 03:26:29 Pain in right arm 013359185 Completed Not Available [facility] 3 03:26:29 Pain of right hip joint 27961134023 9102 Active 2022 Not Available [facility] 3 03:26:29 Sinusiti s 49754841 Completed Not Available [facility] 3 03:26:30 Chronic pain syndrome 544658813 Active Not Available [facility] 3 03:26:30 Osteoart hritis 345397512 Active 2020 Not Available [facility] 3 03:26:30 Malignan t neoplasm of prostate 932056187 Active 2021 Not Available [facility] 3 03:26:30 Dizzines s 405238837 Completed Not Available [facility] 3 03:26:30 Imaging result abnormal 521222956 Active 2021 Not Available [facility] 3 03:26:30 Recurren t hernia of anterior abdomina l wall 148987445 Active Not Available [facility] 3 03:26:30 History of malignan t neoplasm of prostate 312574605 Active 2019 Not Available [facility] 3 03:26:30 Chronic kidney disease stage 3 269864986 Active 2021 Not Available [facility] 3 03:26:30 Hernia of abdomina l cavity 90569862 Active Not Available [facility] 3 03:26:31 Upper respirat ory infectio n 36521979 Completed Not Available [facility] 3 03:26:31 Cervical radiculo fausto 10740649 Completed Not Available [facility] 3 03:26:31 Rhinitis 01906412 Completed Not Available [facility] 3 03:26:31 Urgent desire to urinate 17525882 Active 2021 Not Available [facility] 3 03:26:31 Spinal stenosis in cervical region 47730845 Active 2022 Not Available [facility] 3 03:26:31 Pain in limb 27608310 Active Not Available [facility] 3 03:26:31 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 Please review this document and add these problems to the patient's chart manually as needed. Problem Notes None recorded. Procedures Surgical History Date Name Laterality Status Provider Name and Address Organization Details Recorded Time 01/14/20 23 Ortho - Cortisone Injection completed Trung Buenrostro MD [address] [place] [address], [place] [address], [place], [address], [facility] [email or web address] 01/13/2023 10:14:39 06/09/20 22 Unlisted px cardiac surgery completed Not Available [facility] 12/31/2022 03:18:52 04/06/20 14 Colonoscopy completed Not Available [facility] 12/31/2022 03:18:52 Unlisted px femur/knee completed Not Available [facility] 12/31/2022 03:18:52 Cholecystectomy completed Not Available [facility] 12/31/2022 03:18:52 Tonsillectomy completed Not Available [facility] 12/31/2022 03:18:52 Back Surgery completed Not Available [facility] 12/31/2022 03:18:52 Hernia Repair completed Not Available [facility] 12/31/2022 03:18:52 Neck Surgeries completed Not Available [facility] 12/31/2022 03:18:52 Prostatectomy completed Not Available [facility] 12/31/2022 03:18:52 Vasectomy completed Not Available [facility] 12/31/2022 03:18:52 Imaging Results None recorded. Procedure Notes None recorded. Medical Equipment None Reported. Allergies Allergen ID Allergen Name Allergen Category Reaction Reaction Severity Criticality Documentation Date Start Date Code Code System Note Provider Name and Address Organization Details Recorded Time 1838 Lyrica medicatio n other Not available Not available 12/31/2022 80036 1 RxNorm visio n montanez es Not Available [facility] 3 03:35:30 6343 Celebrex medicatio n Not available Not available Not available 12/31/2022 60044 7 RxNorm Not Available [facility] 3 03:35:30 6344 amoxicill in medicatio n Not available Not available Not available 12/31/2022 723 RxNorm Not Available [facility] 3 03:35:30 38749 Farxiga medicatio n Not available Not available Not available 09/22/2023 38309 72 RxNorm Ingris pruitt RN [facility] [place] [facility] [place] [employer] [facility] 3 12:27:08 Medications Name Sig Start [...] mg by injectio n route. 2022 active [facility]: [phone] Not Available Not Available Not Available baclofen [...] administ ered by the provider 10/10 completed [facility]: 0409-427 6-17 Not Available Not Available Not Available calcium [...] Not Available Not Avai lable Fluzone Quad 7819-4218 60 mcg (15 mcg x 4)/0.5 mL IM suspensio n active Not Available Not Available Not Available Fluzone High-Dose 7373-8206 (PF) 180 mcg/0.5 mL intramusc ular syringe TO BE ADMINIST ERED BY PHARMACI ST FOR IMMUNIZA TION 12/19 completed Not Available Not Available Not Available Ozempic 04/29 completed Started by his cardiolo gist for weight loss Not Available Not Available Not Available Fluzone High-Dose 8590-7763 (PF) 180 mcg/0.5 mL intramusc ular syringe [...] Not Available Vitals Date Recorded Body height Body mass index (BMI) Body weight Body temperature Heart rate Systolic And Diastolic Provider Name and Address Organization Details Last Updated DateTime 4 182.88 cm 38.2 kg/m2 526806. 05 g 97.3 [degF] 54 /min 124/74 mm[Hg] NORA Rousseau SC [email or web address] 16:03:45 Date Recorded Body height Provider Name an d Address Organization Details Last Updated DateTime 05/06/2023 182.88 cm Ana Muller RN [facility] [email or web address] 05/06/2023 10:56:27 Date Recorded Body height Body mass index (BMI) Body weight Oxygen saturation Oxygen saturation in Arterial blood by Pulse oximetry Body temperature Heart rate Systolic And Diastolic Provider Name and Address Organization Details Last Updated DateTime 3 182.88 cm 34.4 kg/m2 076738. 46 g 95 % 95 % 98.2 [degF] 80 /min 141/93 mm[Hg] [facility] [employer] [facility] 3 11:29:42 Date Recorded Body height Body mass index (BMI) Body weight Body temperature Heart rate Systolic And Diastolic Provider Name and Address Organization Details Last Updated DateTime 3 182.88 cm 36.2 kg/m2 021409. 16 g 98 [degF] 57 /min 126/72 mm[Hg] Erma Dileep [facility] [employer] [facility] 3 15:04:09 Date Recorded Body height Body mass index (BMI) Body weight Provider Name and Address Organization Details Last Updated DateTime 09/29/2023 182.88 cm 35.3 kg/m2 240263.02 g Marisel [place] [facility] [employer] [facility] 09/29/2023 10:42:19 Social History Question Answer Notes LastModified by Organization Details LastModified Time Tobacco Smoking Status Former Smoker quit 05/24/19 Not Available [employer] 12/31/2022 03:13:58 Do You Have An Advance Directive? No Papers Provided MIGRATION.0301 [id number] Information not available 12/31/2022 Are You Blind Or Do You Have Difficulty Seeing? No MIGRATION.030 107677 Information not available 12/31/2022 What Is Your Level Of Caffeine Consumption? Occasional MIGRATION.030 921999 Information not available 12/31/2022 How Much Tobacco Do You Chew? None MIGRATION.030 104523 Information not available 12/31/2022 In The 14 Days Before Symptom Onset, Have You Had Close Contact With A Laboratory-conf irmed COVID-19 While That Case Was Ill? No MIGRATION.030 793049 Information not available 12/31/2022 In The 14 Days Before Symptom Onset, Have You Had Close Contact With A Person Who Is Under Investigation For COVID-19 While That Person Was Ill? No MIGRATION.030 974745 Information not available 12/31/2022 Are You Deaf Or Do You Have Serious Difficulty Hearing? No MIGRATION.030 138703 Information not available 12/31/2022 What Type Of Diet Are You Following? REGULAR MIGRATION.0301 915643 Information not available 12/31/2022 Which Illicit Or Recreational Drugs Have You Used? None MIGRATION.0301 521550 Information not available 12/31/2022 What Is The Highest Grade Or Level Of School You Have Completed Or The Highest Degree You Have Received? [id number] MIGRATION.030 586863 Information not available 12/31/2022 Have There Been Any Changes To Your Family Or Social Situation? No MIGRATION.0301 110242 Information not available 12/31/2022 What Is The Fluoride Status Of Your Home? Unknown MIGRATION.0301 136139 Information not available 12/31/2022 When Did You Quit Smoking? 1-5yearssincelastc igarette MIGRATION.0301 995088 Information not available 12/31/2022 Are There Any Guns Present In Your Home? No MIGRATION.0301 681248 Information not available 12/31/2022 Do You Use Insect Repellent Routinely? No MIGRATION.0301 115715 Information not available 12/31/2022 Where Do You Live? SingleLevelHouse MIGRATION.0301 766416 Information not available 12/31/2022 Do You Have A Medical Power Of [employer]? No MIGRATION.0301 180684 Information not available 12/31/2022 What Was The Date Of Your Most Recent Tobacco Screening? 11/09/2023 [email or web address] Information not available 11/09/2023 Do You Have Any Pets? Yes MIGRATION.0301 974829 Information not available 12/31/2022 What Is Your Relationship Status? MIGRATION.0301 627266 Information not available 12/31/2022 Do You Use Your Seat Belt Or Car Seat Routinely? Yes MIGRATION.0301 177181 Information not available 12/31/2022 Do You Have Smoke And Carbon Monoxide Detectors In Your Home? Yes MIGRATION.0301 103906 Information not available 12/31/2022 At What Age Did You Start Smoking Tobacco? 18 MIGRATION.0301 616697 Information not available 12/31/2022 Are You Passively Exposed To Smoke? No MIGRATION.0301 502645 Information not available 12/31/2022 Are There Any Smokers In Your House? No MIGRATION.0301 394938 Information not available 12/31/2022 How Much Tobacco Do You Smoke? No Formerly 1 Ppd MIGRATION.0301 093664 Information not available 12/31/2022 What Types Of Sporting Activities Do You Participate In? None MIGRATION.0301 664247 Information not available 12/31/2022 Do You Use Sunscreen Routinely? Yes MIGRATION.0301 243012 Information not available 12/31/2022 Has Tobacco Cessation Counseling Been Provided? No MIGRATION.0301 975463 Information not available 12/31/2022 Have You Recently Traveled Abroad? No MIGRATION.0301 726921 Information not available 12/31/2022 Do You Have Difficulty Walking Or Climbing Stairs? No MIGRATION.0301 489531 Information not available 12/31/2022 Do You Have Any Dietary Restrictions? No MIGRATION.0301 785213 Information not available 12/31/2022 Sex: Male Functional Status Question Answer Note LastModified by DNA Directat ion Details LastModified Time Do you use any illicit or recreational drugs? No MIGRATION.049105 7669 Information not available 12/31/2022 Do you or have you ever used any other forms of tobacco or nicotine? No MIGRATION.500409 9659 Information not available 12/31/2022 What is your level of alcohol consumption? None MIGRATION.072489 3027 Information not available 12/31/2022 Do you or have you ever used smokeless tobacco? Never used smokeless tobacco MIGRATION.240384 1809 Information not available 12/31/2022 Do you have transportation difficulties? No MIGRATION.222350 7955 Information not available 12/31/2022 Are you able to walk? YESWOREST MIGRATION.933935 7021 Information not available 12/31/2022 Do you have difficulty doing errands alone? No MIGRATION.119235 0695 Information not available 12/31/2022 Are you able to care for yourself? 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 No MIGRATION.518628 2538 Information not available 12/31/2022 Do you or have you ever used e-cigarettes or vape? Never used electronic cigarettes MIGRATION.623576 5485 Information not available 12/31/2022 What is your exercise level? Occasional MIGRATION.375476 2213 Information not available 12/31/2022 Mental Status Question Answer Note LastModified by Organizat ion Details LastModified Time Do you feel stressed (tense, restless, nervous, or anxious, or unable to sleep at night)? [id number] MIGRATION.88648417 26 Information not available 12/31/2022 Do you have difficulty concentrating, remembering or making decisions? No MIGRATION.95704411 26 Information not available 12/31/2022 Family History Relationship Description Onset Age of this Age Resolved Age Notes LastModified by Organization Details LastModified Time Mother Malignant tumor of breast MIGRATION.055 [id number] Not available 12/31/2022 03:18:58 Father Malignant neoplastic disease MIGRATION.659 [id number] Not available 12/31/2022 03:18:58 Notes:blood clots in [...] N CHRONIC PAIN SYNDROME N HYPOTHYROIDISM N CONSTIPATION N CAROTID BLOCKAGE N BACK / NECK PROBLEMS Y HAVE YOU BEEN HOSPITALIZED OR SEEN IN [facility] IN THE PAST YEAR ? N ATHEROSCLEROSIS [...] Brain Problems N HERPES N DEMENTIA N SEIZURES/EPILEPSY N HEADACHES/MIGRAINES N VASCULAR DISEASE Y PACEMAKER N Blood Disorder N DIZZINESS N KIDNEY DISEASE N HEART DISEASE/HEART PROBLEMS Y MULTIPLE SCLEROSIS N CARDIAC ARRHYTHMIA N CANCER: SPECIFY Y ANESTHESIA COMPLICATIONS N Gall Stones N ATRIAL FIBRILLATION N PULMONARY EMBOLISM N AUTOIMMUNE DISEASE N Immunizations Vaccine Type Date Status Note Provider Nam e and Address Organization Details Recorded Time Influenza, split virus, trivalent, preservative 3 completed Not Available [facility] 12/31/2022 03:35:17 COVID-19, mRNA, LNP-S, PF, 100 mcg/0.5mL dose or 50 mcg/0.25mL dose 2 completed Not Available [facility] 12/31/2022 03:35:17 Influenza, high-dose, trivalent, PF 9 completed Not Available [facility] 12/31/2022 03:35:17 Influenza, high-dose, trivalent, PF 8 completed Not Available [facility] 12/31/2022 03:35:17 COVID-19, mRNA, LNP-S, PF, 100 mcg/0.5mL dose or 50 mcg/0.25mL dose 1 completed Not Available [facility] 12/31/2022 03:35:17 COVID-19, mRNA, LNP-S, PF, 100 mcg/0.5mL dose or 50 mcg/0.25mL dose 1 completed Not Available [facility] 12/31/2022 03:35:17 Influenza, high-dose, quadrivalent, PF 0 completed Not Available [facility] 12/31/2022 03:35:17 influenza, unspecified formulation 4 completed Not Available [facility] 12/31/2022 03:35:17 Influenza, split virus, trivalent, preservative 3 completed Not Available [facility] 12/31/2022 03:35:17 Influenza, high-dose, quadrivalent, PF 2 completed Not Available [facility] 12/31/2022 03:35:17 Influenza, high-dose, quadrivalent, PF 1 completed Not Available [facility] 12/31/2022 03:35:18 Influenza, high-dose, trivalent, PF 7 completed Not Available [facility] 12/31/2022 03:35:18 Influenza, split virus, quadrivalent, PF 5 completed Not Available [facility] 12/31/2022 03:35:18 Influenza, high-dose, quadrivalent, PF 3 completed Bubba Alcala MD [address] [place] [address], [place] [address], [place], [address], [facility] 08/16/2023 17:35:03 Past Encounters Encounter ID Performer Location Encounter Start Date Encounter Closed Date Diagnosis/Indication Diagnosis SNOMED-CT Code Diagnosis ICD10 Code Diagnosis Note [id number] Bubba Alcala MD [facility] Internal Med [facility] [address] [address] 02/06/2021 00:00:00 02/06/2021 22:55:37 [id number] Lon Tomas MD [facility]_[address] [address] 04/29/2021 00:00:00 04/29/2021 13:13:52 [id number] Bubba Alcala MD [facility] Internal Med [facility] [address] [place] [address] 05/07/2021 00:00:00 05/12/2021 17:07:15 [id number] Lon Tomas MD S_[address] [address] 06/10/2021 00:00:00 06/10/2021 12:22:16 [id number] Bubba Alcala MD [facility] Internal Med [facility] [address] [place], [place] [address] [address] 06/27/2021 00:00:00 07/21/2021 17:18:22 [id number] Bubba Alcala MD [facility] Internal Med [facility] 15 2043 [facility] [address] [place] [address] 08/02/2021 00:00:00 08/03/2021 15:06:58 [id number] Bubba Alcala MD [facility] Internal Med [facility] 15 2043 [facility], [address] [address] 09/04/2021 00:00:00 09/06/2021 22:49:18 [id number] Bubba Alcala MD [facility] Internal Med [facility] [address] [address] 12/03/2021 00:00:00 12/07/2021 21:41:41 [id number] MD DAVID [facility] [place] [address] [place], [place] [address] [place] [address] 12/09/2021 00:00:00 12/09/2021 12:12:14 [id number] Bubba Alcala MD [facility] Internal Med [facility] [address] [address] 03/04/2022 00:00:00 03/04/2022 23:32:54 [id number] MD [facility]ID [facility] [place] [address] [place] [address] 04/28/2022 00:00:00 04/28/2022 12:17:36 [id number] Bubba Alcala MD [facility] Internal Med [facility] 15 2043 [facility], [address] [address] 05/06/2022 00:00:00 05/06/2022 20:22:12 [id number] Ubaldo Weber MD [facility] [place] [address] [facility] [address] [place] [address] 05/22/2022 00:00:00 05/22/2022 15:18:36 [id number] Bubba Alcala MD [facility] Internal Med [place] [address] [facility], [facility] [place] [address] 06/16/2022 00:00:00 06/16/2022 21:38:04 [id number] Lon Tomas MD [facility] [place] [address] [place] [address] 08/04/2022 00:00:00 08/04/2022 11:58:54 [id number] Bubba Alcala MD [facility] Internal Med [facility] 2043 [facility], [address] [address] 09/22/2022 00:00:00 09/27/2022 17:21:44 [id number] Lon Tomas MD [facility] [place] [address] [place] [address] 11/10/2022 00:00:00 11/10/2022 12:11:08 [id number] Trung Buenrostro MD [facility] [address] [place] [address] 11/20/2022 00:00:00 11/20/2022 11:41:26 [id number] MD GURPREET Herbert[facility] [address] [address] 12/16/2022 00:00:00 12/16/2022 10:24:20 [id number] Bubba Alcala MD [facility] Internal Med [facility] [address] [address] 12/17/2022 00:00:00 12/17/2022 21:55:25 [id number] Trung Buenrostro MD [facility] [address] [address] 01/13/2023 09:50:12 01/13/2023 10:25:20 Pain in right sacroiliac joint 4008332957 6539198 M53.3 Pain of ri ght hip joint 4960153128 90100 M25.551 [id number] MD GURPREET [facility] [address] [address] 02/10/2023 10:21:30 02/10/2023 11:07:04 Neck pain 69949568 M54.2 Spinal miguel a nosis in cervical region 91857991 M48.02 [id number] John Mas MD [facility] [address] [address] 02/11/2023 09:16:51 02/11/2023 10:11:45 Malignant neoplasm of prostate 241119767 C61 :-TREATMEN T HISTORY:2012 - RALP (Dr Zepeda at [facility]) - GS 3+4=7, pT3a03/2022 - Salvage IMRT + 6 mos ADT (PSA 0.18) PLAN:-q3mo s PSA through 01/2024, then q6mos through 12/2024, then annual thereafter Hormone se nsitive prostate cancer 914375229 Z19.1 Increased frequency of urination 256704806 R35.0 :Intermitt ently check UA and PVRContinu e Myrbetriq 25mg daily [id number] Bubba Alcala MD [facility] Internal Med [facility] [address] [address] 04/22/2023 14:51:02 04/22/2023 16:05:43 Anticoagulant therapy 320316292 Z79.01 Spinal miguel a nosis in cervical region 92283108 M48.02 Chronic pain syndrome 37 6832272 G89.4 [id number] Bubba Alcala MD [facility] Internal Med [facility] [address] [address] 05/06/2023 10:45:26 05/06/2023 10:59:29 Anticoagulant therapy 813944207 Z79.01 [id number] John Mas MD [facility] [address] [address] 05/13/2023 11:09:20 05/13/2023 11:47:48 Malignant neoplasm of prostate 882842761 C61 :-TREATMEN T HISTORY:2012 - RALP (Dr Zepeda at [facility]) - GS 3+4=7, pT3a03/2022 - Salvage IMRT + 6 mos ADT (PSA 0.18) PLAN:-q3mo s PSA through 01/2024, then q6mos through 12/2024, then annual thereafter Hormone se nsitive prostate cancer 390491777 Z19.1 Increased frequency of urination 087190528 R35.0 :Intermitt ently check UA and PVRContinu e Myrbetriq 25mg daily [id number] Bubba Alcala MD [facility] Internal Med [facility] [address] [facility] [address] [place] [address] 08/04/2023 14:46:38 08/04/2023 15:49:09 Administration of influenza vaccine 63214613 Z23 Anticoagulant therapy 18 6135585 Z79.01 Cholesterol screening 27 6045513 Z13.220 Screening for cardiovascular system disease 159703271 Z13.6 Nonischemi c congestive cardiomyopathy 7646459279 04 I42.0 Chronic ki dney disease stage 3 552249656 N18.30 Spinal miguel a nosis in cervical region 58284173 M48.02 Chronic de ep venous thrombosis of lower extremity 5300342540 03161 I82.509 History of pulmonary embolus 910569896 Z86.517 [id number] Jeremy Grijalva MD [facility] [address] [place] [address] 09/29/2023 10:39:27 09/29/2023 11:13:50 Pain of left wrist 5486003733 88408 M25.532 Arthritis of first carpometacarpal joint of left hand 5622801239 130847 M13.842 Sprain of left wrist 966 1713816 3218172 S63.502A [id number] Bubba Alcala MD [facility] Internal Med [place] [address] [facility] [address] [place] [address] 11/09/2023 15:28:26 11/09/2023 16:55:32 Anticoagulant therapy 381137428 Z79.01 Rectal hemorrhage 747342 02 K62.5 Hyperlipidemia 87536940 E78.5 Long-term drug therapy 823887085 Z79.899 Chronic de ep venous thrombosis of lower extremity 3997238105 07422 I82.509 Chronic ki dney disease stage 3 214299961 N18.30 History of malignant neoplasm of prostate 283533970 Z85.46 History of pulmonary embolus 379917265 Z86.711 Nonischemi c congestive cardiomyopathy 6504645062 04 I42.0 Health Concerns Section Related Observation LastModified by Organization Detai ls LastModified Time None Recorded Concern Status LastModified by Organization Details LastModified Time None Recorded Advance Directives Directive N: papers provided Payers Insurance Date Sequence Insurance Name Policy Number Policy Abbasi Covered Member ID Abbasi Member ID Guarantor Name 12/04/2023 1 [facility] (MEDICARE REPLACEMENT/A DVANTAGE - HMO) [id number] Brennen Olson [id number] Brennen Olson Notes Date Note Type Note Provider Name and Address Organization Details Recorded Time 05/13/2023 text/html :02/11/2023 ORIGI NAL HPI - Patient peviously seen by Dr. Tomas, here to establish with me. Takes Myrbetriq 25mg for LUTS -INITIAL DIAGNOSIS/STAGE: TRUSBx = Unknown -TREATMENT HISTORY:05/2013 - RALP (Dr Zepeda at [facility]) - GS 3+4=7, pT3a5/2021 - Salvage IMRT [...] or infectionPVR: 11cc John Mas MD [address], [address], [place], [address], [place] [facility] [email or web address] 05/13/2023 11:48:16 08/04/2023 text/html cervical spinal stenosis no gait problems. Heart failure with reduced ejection fraction he has not had any decompensation symptomsCervical spinal stenosis his pain is fine is no myelopathy symptoms. Rhinitis stable with fluticasone. CKD 3 no new symptoms referable to thatHistory of PE INR 2.5 Bubba Alcala MD [address], [address], [place], [address], [facility] 08/16/2023 17:35:06 09/29/2023 text/html Patient returns with [...] by the patient. BENEDICT Chase [address], [facility] [address], [place], [address], [facility] 09/29/2023 11:27:08 11/09/2023 text/html cervical spinal stenosis [...] bright red Bubba Alcala MD [address], [facility] [address], [place], [address], [facility] 11/09/2023 21:21:39
--- OUTSIDE RECORDS SUMMARY | 2025-05-12 11:52 | XMS_ITS | Clinical Summary ---
Author Organization [facility] Address [address] [place] [address] Care Team Providers Care Belt Operator Name Role Phone Lucio Rosas MD Unavailable Bianca Hunter MD Unavailable [phone]- [phone] Hero Pinedo MD Unavailable [phone] Jas Alcala MD Primary Care Provider [phone] Lon Tomas MD Unavailable [phone] Jaycee Teresa MD Unavailable [phone] Allergies Active Allergy Reactions Criticality Noted Date [...] before meals and at bedtime 1200 mL 05/10/20 26 Active Active Problems Patient Care [...] He also has a history of an SD and PE. 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 -Pathology discuss in detail and all questions were answered -Refer for EUS -Refer to Oncology and Cardiothoracic surgery Miller's esophagus with high grade dysplasia Assessment & Plan (11/25/2024 9:41 AM MISSION COORDINATOR): EGD September 2024 with irregular Z-line and gastric ulcers. Pathology with Barretts esophagus, indefinite for dysplasia. Repeat EGD November 2024 with Barretts esophagus, pathology with high-grade dysplasia. -Continue pantoprazole 40 mg p.o. b.i.d. History of colon polyps 11/25/2024 Assessment & Plan (11/25/2024 9:42 AM MISSION COORDINATOR): Colonoscopy November 2024 with multiple tubular adenomas. -Repeat colonoscopy November 2027 Gastric ulcer 09/23/2024 Anemia due to blood loss 09/23/2024 Rectal bleeding 08/22/2024 Radiation proctitis 08/22/2024 Assessment & Plan (11/25/2024 9:41 AM MISSION COORDINATOR): Colonoscopy November 2024 with severe radiation proctitis status post APC. -Consider flex sig with APC, patient advised to call office if rectal bleeding gets worse Eosinophilia 02/22/2024 Iron deficiency anemia, unspecified 02/22/2024 Anemia 02/22/2024 VT (ventricular tachycardia) 05/09/2022 Overview (05/09/2022): Added automatically from request for surgery [id number] Lower urinary tract symptoms (LUTS) 05/24/2020 Malignant neoplasm of prostate 04/25/2013 Encounters Date Type Department Care Team Description 5 Telephone [facility] Gastroenterology [address] [address] Lucio Rosas MD 5 12:00 PM CDT Infusion [facility] at [address] [phone] Anemia, unspecified type (Primary Dx); History of pulmonary embolism 5 9:00 AM CDT Clinical Support [facility] at [address] [place] [address] [address] Anemia, unspecified type; History of pulmonary embolism 5 10:43 AM CDT Anesthesia Event [facility] [address] [place] [phone] Hal Kellogg MD 5 10:30 AM CDT - 5 11:00 AM CDT Surgery [facility] [address] [place] [address] Lucio Rosas MD ESOPHAGOGASTRODUODENOSCOPY BIOPSY 5 9:15 AM CDT - 5 11:35 AM CDT Hospital Encounter [facility] [address] [place] [address] Lucio Rosas MD Malignant neoplasm of lower third of esophagus (HCC) Discharge Disposition: Discharge to home or self care 5 Telephone [facility] Surgery [address] [facility] [address] [place] [phone] Reinaldo Little RMA 5 Orders Only [facility] Surgery [address] [place] [phone] Charlie Juarez MD Malignant neoplasm of lower third of esophagus (HCC) (Primary Dx) 5 Telephone [facility] Oncology [address] [place] [phone] Roseanna Roa 5 9:15 AM CDT Office Visit [facility] Surgery [address] [place] [phone] Cahrlie Juarez MD Malignant neoplasm of lower third of esophagus (HCC) (Primary Dx) 5 10:45 AM CDT Office Visit [facility] Physicians [facility] Oncology [address] [place] [address] [address] [place] [address] Bianca Hunter MD Malignant neoplasm of lower third of esophagus (HCC) (Primary Dx) 5 12:00 PM CDT Infusion [facility] at [address] [place] [address] Anemia, unspecified type (Primary Dx); History of pulmonary embolism 5 9:00 AM CDT Clinical Support [facility] at [address] [place] [address] [address] Anemia, unspecified type; History of pulmonary embolism; Malignant neoplasm of lower third of esophagus (HCC) 5 Orders Only [facility] Gastroenterology at [address] [place] [address] Lucio Rosas MD Malignant neoplasm of lower third of esophagus (HCC) (Primary Dx) 5 2:30 PM CDT Clinical Support [facility] Medical Office Building 2 Radiation Oncology [address] [place] [address] Malignant neoplasm of lower third of esophagus (HCC) (Primary Dx) 5 12:00 PM CDT Infusion [facility] at [address] [place] [address] Anemia, unspecified type (Primary Dx); History of pulmonary embolism 5 9:00 AM CDT Clinical Support [facility] at [address] [address] Anemia, unspecified type; History of pulmonary embolism 5 10:00 AM CDT Office Visit [facility] Medical Office Building 2 Radiation Oncology [address] [place] [address] Hero Pinedo MD Malignant neoplasm of lower third of esophagus (HCC) (Primary Dx) 5 8:09 AM CDT - 5 11:59 PM CDT Hospital Encounter [facility] Medical Office Building [address] [address] Malignant neoplasm of lower third of esophagus (HCC) Discharge Disposition: Discharge to home or self care 5 10:45 AM CDT Infusion [facility] at [address] [phone] Malignant neoplasm of lower third of esophagus (HCC) (Primary Dx); Anemia, unspecified type 5 9:45 AM CDT Clinical Support [address] [address] Anemia, unspecified type; History of pulmonary embolism 5 Orders Only [facility] Physicians [facility] Oncology [address] [place] [phone] Meme Dean RN Anemia, unspecified type (Primary Dx) 5 9:00 AM CDT Clinical Support [facility] at [address] [address] Anemia, unspecified type; History of pulmonary embolism 5 Telephone [facility] [address] [phone] Francie Hassan, WILBER 5 Orders Only [facility] Hematology [facility] Floor [address] [place] [address] Gertrude Zhang Anemia, unspecified type (Primary Dx) 5 9:00 AM CDT Clinical Support [facility] at [address] [address] Anemia, unspecified type; History of pulmonary embolism 5 Telephone [facility] at [address] [phone] Lalitha Salcedo, WILBER 5 1:00 PM CDT Office Visit [facility] Oncology [address] [place] [phone] Bianca Hunter MD Malignant neoplasm of lower third of esophagus (HCC) (Primary Dx) 5 12:30 PM CDT Clinical Support [facility] at [address] [address] Malignant neoplasm of lower third of esophagus (HCC); Anemia, unspecified type; History of pulmonary embolism 5 Telephone [facility] Oncology [address] [place] [phone] Georgette Velasco RN 5 11:30 AM CDT Treatment [facility] Medical Office Building 2 Radiation Oncology [address] [place] [phone] Hero Pinedo MD 5 Completion of Therapy [facility] Office Building 2 Radiation Oncology [address] [place] [address] Hero Pinedo MD 5 Telephone [facility] Oncology [address] [place] [phone] Bianca Hunter MD INR results 5 Orders Only RAD ONC TREATMENTS Miscellaneou s, Not In File 5 3:00 PM CDT Lab [facility] at [address] [address] 5 12:30 PM CDT Infusion [facility] at [address] [phone] Malignant neoplasm of lower third of esophagus (HCC) (Primary Dx) 5 11:30 AM CDT Treatment [facility] Medical Office Building 2 Radiation Oncology [address] [place] [address] 5 Telephone [facility] Bone Marrow Transplant [address] [place] [phone] Ceci Antony NP 5 OTV [facility] Medical Office Building 2 Radiation Oncology [address] [place] [phone] Hero Pinedo MD 5 Orders Only RAD ONC TREATMENTS Miscellaneou s, Not In File 5 11:35 AM CDT Treatment [facility] Medical Office Building 2 Radiation Oncology [address] [place] [address] Hero Pinedo MD 5 11:30 AM CDT Treatment [facility] Medical Office Building 2 Radiation Oncology [address] [place] [address] Hero Pinedo MD 5 9:45 AM CDT Office Visit [facility] [address] [place] [phone] Bianca Hunter MD Malignant neoplasm of lower third of esophagus (HCC) (Primary Dx); Abnormal coagulation profile 5 9:15 AM CDT Clinical Support [facility] at [address] [address] Malignant neoplasm of lower third of esophagus (HCC); Abnormal coagulation profile 5 Orders Only RAD ONC TREATMENTS Miscellaneou s, Not In File 5 12:15 PM CDT Infusion [facility] at [address] [place] [address] Malignant neoplasm of lower third of esophagus (HCC) (Primary Dx) 5 11:30 AM CDT Treatment [facility] Medical Office Building 2 Radiation Oncology [address] [place] [address] 5 Orders Only [facility] Medical Office Building 2 Radiation Oncology [address] [place] [address] Hero Pinedo MD 5 Orders Only [facility] Physicians [facility] Oncology [address] [place] [phone] Meme Dean RN 5 Orders Only [facility] Medical Office Building 2 Radiation Oncology [address] [place] [address] Hero Pinedo MD Malignant neoplasm of lower third of esophagus (HCC) (Primary Dx) 5 Orders Only [facility] Office Building 2 Radiation Oncology [address] [place] [address] Hero Pinedo MD 5 Orders Only RAD ONC TREATMENTS Miscellaneou s, Not In File 5 Orders Only [facility] Medical Office Building 2 Radiation Oncology [address] [place] [address] Hero Pinedo MD Malignant neoplasm of lower third of esophagus (HCC) (Primary Dx) 5 11:30 AM CDT Treatment [facility] Office Building 2 Radiation Oncology [address] [place] [address] 5 Orders Only RAD ONC TREATMENTS Miscellaneou s, Not In File 5 2:30 PM CDT Treatment [facility] Medical Office Building 2 Radiation Oncology [address] [place] [address] 5 11:30 AM CDT Infusion [facility] at [address] [phone] Malignant neoplasm of lower third of esophagus (HCC) (Primary Dx) 5 Orders Only RAD ONC TREATMENTS Miscellaneou s, Not In File 5 Orders Only [facility] Physicians [facility] Oncology [address] [place] [phone] Meme Dean, WILBER 5 Orders Only [facility] Phys[facility] Oncology [address] [place] [address] [address] [place] [address] Meme Dean, RN Malignant neoplasm of lower third of esophagus (HCC) (Primary Dx) 5 11:30 AM CDT Treatment [facility] Medical Office Building 2 Radiation Oncology [address] [place] [address] 5 OTV [facility] Medical Office Building 2 Radiation Oncology [address] [place] [address] Hero Pinedo MD 5 Orders Only RAD ONC TREATMENTS Miscellaneou s, Not In File 5 1:30 PM CDT Clinical Support [facility] Medical Office Building 2 Radiation Oncology [address] [place] [address] Malignant neoplasm of lower third of esophagus (HCC) (Primary Dx) 5 12:00 PM CDT Infusion [facility] at [address] [place] [address] Anemia, unspecified type (Primary Dx); History of pulmonary embolism 5 11:00 AM CDT Treatment [facility] Medical Office Building 2 Radiation Oncology [address] [place] [address] 5 Orders Only RAD ONC TREATMENTS Miscellaneou s, Not In File 5 4:00 PM CDT Clinical Support [facility] at [address] [address] Anemia, unspecified type; History of pulmonary embolism; Malignant neoplasm of lower third of esophagus (HCC) 5 11:30 AM CDT Treatment [facility] Medical Office Building 2 Radiation Oncology [address] [place] [address] 5 Orders Only RAD ONC TREATMENTS Miscellaneou s, Not In File 5 11:30 AM CDT Treatment [facility] Medical Office Building 2 Radiation Oncology [address] [place] [address] 5 9:30 AM CDT Office Visit [facility] Otolaryngology [address] [place] [address] Jairo Carr MD Mass of left parotid gland (Primary Dx); Malignant neoplasm of lower third of esophagus (HCC) 5 Orders Only RAD ONC TREATMENTS Miscellaneou s, Not In File 5 11:30 AM CDT Treatment [facility] Medical Office Building 2 Radiation Oncology [address] [place] [address] 5 Orders Only RAD ONC TREATMENTS Miscellaneou s, Not In File 5 11:30 AM CDT Treatment [facility] Medical Office Building 2 Radiation Oncology [address] [place] [address] 5 OTV [facility] Medical Office Building 2 Radiation Oncology [address] [place] [address] Hero Pinedo MD 5 Orders Only RAD ONC TREATMENTS Miscellaneou s, Not In File from Last 3 Months Immunizations Immunization Administration Dates Next Due Influenza, Unspecified 08/02/2018 Surgical History Surgery Date Site/Laterality Comments NECK SURGERY Neck Surgery - (Added by Conv) BACK SURGERY Back Surgery - (Added by TW Conv) lower back, metal GALLBLADDER SURGERY Cholecystotomy - (Added by TW Conv) VASECTOMY Surgery Vas Deferens Vasectomy - (Added by Conv) RADICAL PROSTATECTOMY Prostatect Retropubic Radical W/ Nerve Sparing Laparoscopic - 05/03/2013 (Added by Conv) TONSILLECTOMY Tonsillectomy - (Added by TW Conv) CO REPAIR FIRST ABDOMINAL WA LL HERNIA Ventral Hernia Repair - 11/2013 (Added by TW Conv) w/poss mesh CATARACT EXTRACTION, BILATERAL COLONOSCOPY URETHRAL DILATION N/A UPPER GASTROINTESTINAL ENDOSCOPY PORT PLACEMENT CHEST >5 YEARS 01/11/2025 N/A Medical History Medical History Date Comments Chronic bronchitis with productive mucopurulent cough (HCC) Prostate cancer (HCC) Hepatitis A Neuropathy 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SD (myocardial infarction) (HCC) 2018 PE (pulmonary thromboembolism) (HCC) 2019 GERD (gastroesophageal reflux disease) Chronic kidney disease stage 3 Neck pain Obesity Full dentures upper and lower Wears glasses Colon polyp Dysphagia Atrial fibrillation (HCC) HTN (hypertension) DVT (deep venous thrombosis) (HCC) History of radiation therapy Tinnitus Neck mass Hyperlipidemia Family History Medical History Relation Name Comments [...] on file Legal Sex Male 9:38 AM MISSION COORDINATOR Gender Identity Not on file Sexual Orientation Not on file 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[employer] Not 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 Not on file Not [...] 12/03/2021 11/05/2021, 10/21/2021, 01/01/2021, Additional history exists Influenza Vaccine (#1) 2025 , 09/04/2021, 09/17/2019, Additional history exists Fall Risk Assessment 01/04/2026 01/04/2025, 12/13/19 25 Colon Cancer Screening-Colonoscopy 11/17/2027 11/17/2024 Colon Cancer Screening-CT Colonography Discontinued 11/17/2024 Colon Cancer Screening-DNA Stool Discontinued 11/17/19 25 Colon Cancer Screening-FIT Discontinued 11/17/2024 Colon Cancer Screening-Sigmoidoscopy Discontinued 11/17/2024 Abdominal Aortic Aneurysm (A AA) Screen Completed 12/13/2024 Medical Devices Implanted Type Area Engineering Research Manager Device Identifier Shelf Expiration Date Model / Serial / Lot Screws And Rods Spine Lumbar [employer] X[employer]a Power Port 8fr [id number] - [id number] Implanted:Qty: 1 on 01/11/2025 by Linda Cardenas PA at [facility] [employer] 08/29/2029 [id number] / / [id number] Procedures Procedure Name Priority Date/Time Associated Diagnosis [...] Read Routine (OP Routine) 12/13/2024 7:09 AM MISSION COORDINATOR Malignant neoplasm of lower third of esophagus (HCC) COLONOSCOPY 11/17/2024 9:34 AM MISSION COORDINATOR from Last 3 Months or Most Recently Relevant to Health Maintenance Results * Transfuse RBC (05/11/2025 2:28 PM CDT) Blood Francisco Jones DO BLOOD TRANSFUSION ORDERABLES Final Result * Prepare RBC: 1 Units (05/11/2025 10:01 AM CDT) Units requested 1 Comment:Testing performed by : [address] [address] Units requested Ready ISAAC SERNA Comment:Testing performed by : [address] [address] Unit Number [id number] Product code [id number] ISAAC SERNA Blood Expiration Date [facility] Product Blood Type (for scanning) 6200 [facility] Product Blood Type APOS [facility] Dispense Status DISPENSED [facility] Blood 05/11/2025 10:0 1 AM CDT 05/11/2025 10:01 AM CDT Nena Cano AERODYNAMICS PROFESSOR BLOOD BANK PRODUCT ORDERABL ES Final Result [facility] [address] [facility] Department [place] [address] * (ABNORMAL) Differential, auto (05/11/2025 9:00 AM CDT) Neutrophil abs 2.24 1.50 - 6.50 K/cumm Comment:Testing performed by : [address] [address] Imm gran abs 0.02 0.00 - 0.10 K/cumm ISAAC Comment:Testing performed by : [address] [address] Lymphocyte abs 0.58(L) 0.80 - 3.30 K/cumm ISAAC Comment:Testing performed by : [address] [address] Monocyte abs 0.53 0.20 - 0.80 K/cumm ISAAC Comment:Testing performed by : [address] [address] Eosinophil abs 0.27 0.00 - 0.50 K/cumm ISAAC Comment:Testing performed by : [address] [address] Basophil abs 0.03 0.00 - 0.10 K/cumm SIAAC Comment:Testing performed by : [address] [address] Neutrophil pct 61.1 % ISAAC Comment: Interpretive Data Percent cell count reference ranges are not reported, since discordance with absolute values may lead to misinterpretation of CBC data. Current Interpretive Data was last revised on 2018. Testing performed by: [address] [address] Imm gran pct 0.5 % [facility] Comment: Interpretive Data Percent cell count reference ranges are not reported, since discordance with absolute values may lead to misinterpretation of CBC data. Current Interpretive Data was last revised on 2018. Testing performed by: [address] [address] Lymphocyte pct 15.8 % [facility] Comment: Interpretive Data Percent cell count reference ranges are not reported, since discordance with absolute values may lead to misinterpretation of CBC data. Current Interpretive Data was last revised on 2018. Testing performed by: [address] [address] Monocyte pct 14.4 % [facility] Comment: Interpretive Data Percent cell count reference ranges are not reported, since discordance with absolute values may lead to misinterpretation of CBC data. Current Interpretive Data was last revised on 2018. Testing performed by: [address] [address] Eosinophil pct 7.4 % [facility] Comment: Interpretive Data Percent cell count reference ranges are not reported, since discordance with absolute values may lead to misinterpretation of CBC data. Current Interpretive Data was last revised on 2018. Testing performed by: [address] [address] Basophil pct 0.8 % [facility] Comment: Interpretive Data Percent cell count reference ranges are not reported, since discordance with absolute values may lead to misinterpretation of CBC data. Current Interpretive Data was last revised on 2018. Testing performed by: [address] [address] Blood 05/11/2025 9:00 AM CDT 05/11/2025 9:03 AM CDT us Nena Cano NP LAB BLOOD ORDERABLES Final Result ISAAC [address] [facility] Department [place] [address] * (ABNORMAL) Iron profile w/ IBC (05/11/2025 9:00 AM CDT) Pathologist [facility] Iron 73 50 - 150 mcg/dL Comment:Testing performed by : [address] [address] TIBC 241(L) 250 - 400 mcg/dL ISAAC Comment:Testing performed by : [address] [address] Transferrin saturation 30 20 - 50 % ISAAC Comment:Testing performed by : [address] [address] Blood 05/11/2025 9:00 AM CDT 05/11/2025 9:35 AM CDT Nena Cano AERODYNAMICS PROFESSOR LAB BLOOD ORDERABLES Final Result IS[facility] Department [place] [address] * (ABNORMAL) CBC with auto differential (05/11/2025 9:00 AM CDT) Pathologist [facility] WBC 3.67(L) 3.80 - 9.90 K/cumm Comment:Testing performed by : [address] [address] Hgb 8.0(L) 13.0 - 17.5 g/dL ISAAC SERNA Comment:Testing performed by : [address] [address] Hct 26.0(L) 38.9 - 50.3 % ISAAC Comment:Testing performed by : [address] [address] Plt 184 150 - 400 K/cumm ISAAC SERNA Comment:Testing performed by : [address] [address] MPV 8.6(L) 9.1 - 12.3 fL ISAAC SERNA Comment:Testing performed by : [address] [address] RBC 2.53(L) 4.30 - 5.80 M/cumm ISAAC SERNA Comment:Testing performed by : [address] [address] MCV 102.8(H) 81.3 - 96.4 fL ISAAC Comment:Testing performed by : [address] [address] MCH 31.6 27.1 - 33.3 pg ISAAC Comment:Testing performed by : [address] [address] MCHC 30.8(L) 32.3 - 35.7 g/dL ISAAC Comment:Testing performed by : [address] [address] RDW CV 17.3(H) 11.1 - 14.9 % ISAAC Comment:Testing performed by : [address] [address] RDW SD 65.1(H) 35.7 - 48.1 fL ISAAC Comment:Testing performed by : [address] [address] NRBC abs 0.00 0.00 - 0.01 K/cumm ISAAC Comment:Testing performed by : [address] [address] ANC Prelim 2.24 1.50 - 6.50 K/cumm ISAAC Comment: Interpretive Data The rapid ANC is a preliminary automated count and may vary from the final ANC (Neut Abs) reported in the WBC differential that follows. Current interpretive data was last revised 2025. Testing performed by: [address] [address] Blood 05/11/2025 9:00 AM CDT 05/11/2025 9:03 AM CDT us Nena Cano NP LAB BLOOD ORDERABLES Final Result DAYANAAD[facility] DAPHNE [address] [facility] Department [place] [address] * ABO/Rh (05/11/2025 9:00 AM CDT) Pathologist [facility] ABO/Rh A Positive Comment:Testing performed by : [address] [address] Blood 05/11/2025 9:00 AM CDT 05/11/2025 9:33 AM CDT Narrative ISAAC - 05/11/2025 9:59 AM CDT Has the patient had Daratumumab or Isatuximab in the past 6 months?->Unknown Nena Cano AERODYNAMICS PROFESSOR LAB BLOOD BANK TEST ORDERAB LES Final Result Performing Organization Address [facility] [[email or web address]] Co de Phone Number [address] [place] [address] * (ABNORMAL) Reticulocyte Count (05/11/2025 9:00 AM CDT) [facility] Retics, absolute 105(H) 20 - 87 K/cumm Comment:Testing performed by : [address] [address] Retics 4.1(H) 0.4 - 2.9 % ISAAC Comment:Testing performed by : [address] [address] [address] Reticulocyte Hgb 34.4 30.5 - 38.0 pg ISAAC Comment:Testing performed by : [address] [address] Blood 05/11/2025 9:00 AM CDT 05/11/2025 9:03 AM CDT Nena Cano AERODYNAMICS PROFESSOR LAB BLOOD ORDERABLES Final Result Performing Organization Address [facility] [[email or web address]] Co de Phone Number [address] [place] [address] * Crossmatch (05/11/2025 9:00 AM CDT) [facility] Crossmatch Compatible ISAAC Unit number for crossmatch [id number] ISAAC Blood 05/11/2025 9:00 AM CDT 05/11/2025 9:33 AM CDT Jas Alcala MD LAB BLOOD BANK TEST ORDERABL ES Final Result Performing Organization Address [facility] de Phone Number [address] [address] * Antibody screen (05/11/2025 9:00 AM CDT) Divina, indirect, Gel Interpretation Negative ABSC Comment:Testing performed by : [address] [address] Blood 05/11/2025 9:00 AM CDT 05/11/2025 9:33 AM CDT Narrative [facility] - 05/11/2025 10:12 AM CDT Has the patient had Daratumumab or Isatuximab in the past 6 months?->Unknown Nena Cano NP LAB BLOOD BANK TEST ORDERAB LES Final Result Performing Organization Address [facility] de Phone Number [address] [address] * Ferritin (05/11/2025 9:00 AM CDT) Pathologist [facility] Ferritin 71 30 - 400 ng/mL Comment:Testing performed by : [address] [address] Blood 05/11/2025 9:00 AM CDT 05/11/2025 9:35 AM CDT eNna Cano NP LAB BLOOD ORDERABLES Final Result Performing Organization Address [facility] [[email or web address]] Co de Phone Number [address] [address] * EGD (05/10/2025 10:45 AM CDT) Anatomical Region Laterality Modality Other Narrative Procedure Note Lucio Rosas MD - 05/10/2025 10:45 AM CDT [facility] Patient Name: Marshall Olson Procedure Date: 05/10/2025 10:45 AM Date of : 1950 Admit Type: Outpatient Age: 75 Gender: Male Attending MD: Lucio Rosas M.D. Room: [facility] ENDOSCOPY ROOM 03 Note Status: Finalized [...] On: 05/10/2025 10:45 AM Recognized by the [employer] for promoting quality in endoscopy us Lucio Rosas MD ENDOSCOPY PROCEDURES Final Resul t * (ABNORMAL) POC Blood Gas and Chemistries, Venous - (05/10/2025 10:13 AM CDT) pH,kwame POC 7.35 7.32 - 7.43 pCO2, kwame POC 40 40 - 50 mmHg [facility] pO2,kwame POC 32 mmHg [facility] Comment: Interpretive Data No reference range established. Current interpretive data was last revised 2020. HCO3, kwame (Calc) POC 22 20 - 30 mmol/L [facility] Base excess, kwame POC -3 mmol/L [facility] Comment: Interpretive Data No reference range established. Current interpretive data was last revised 2020. Hemoglobin, kwame POC 9.2(L) 13.0 - 17.5 g/dL [facility] Hematocrit, kwame POC 27.0(L) 38.9 - 50.3 % [facility] Sodium, kwame POC 141 135 - 145 mmol/L [facility] Potassium, kwame POC 4.4 3.3 - 4.9 mmol/L [facility] Comment: Interpretive Data This method is not able to assess for hemolysis, which may falsely increase potassium concentrations. If further testing is needed to evaluate this result, consider in-laboratory plasma potassium. Current Interpretive Data was last revised on 2022. Glucose, kwame POC 86 70 - 199 mg/dL [facility] Ionized Calcium, kwame POC 5.10 4.50 - 5.10 mg/dL [facility] Blood 05/10/2025 10:1 3 AM CDT 05/10/2025 10:13 AM CDT Lucio Rosas MD LAB POCT ORDERABLES - DEVICE Fin al Result IS[facility] Department [place] [address] * Transfuse RBC (04/26/2025 2:25 PM CDT) Blood Bianca Hunter MD BLOOD TRANSFUSION OR DERABLES Final Result * Prepare RBC: 1 Units (04/26/2025 9:45 AM CDT) Units requested 1 Comment:Testing performed by : [address] [address] Units requested Ready ISAAC SERNA Comment:Testing performed by : [address] [address] Unit Number [id number] Product code [id number] [facility] Blood Expiration Date [id number] [facility] Product Blood Type (for scanning) 6200 [facility] Product Blood Type APOS [facility] Dispense Status DISPENSED [facility] Blood 04/26/2025 9:45 AM CDT 04/26/2025 9:45 AM CDT Bianca Hunter MD BLOOD BANK PRODUCT O RDERABLES Final Result ISAAC 0887 [facility] [place] [address] * (ABNORMAL) eGFR (04/26/2025 9:01 AM CDT) [...] was last reviewed 2021. Testing performed by: [address] [address] Blood 04/26/2025 9:01 AM CDT 04/26/2025 9:02 AM CDT Bianca Hunter MD LAB BLOOD ORDERABLES Final Result [facility] 7350 [facility] Department [place] [address] * (ABNORMAL) Differential, auto (04/26/2025 9:01 AM CDT) Neutrophil abs 2.29 1.50 - 6.50 K/cumm Comment:Testing performed by : [address] [address] Imm gran abs 0.02 0.00 - 0.10 K/cumm ISAAC Comment:Testing performed by : [address] [address] Lymphocyte abs 0.68(L) 0.80 - 3.30 K/cumm ISAAC Comment:Testing performed by : [address] [address] Monocyte abs 0.57 0.20 - 0.80 K/cumm ISAAC Comment:Testing performed by : [address] [address] Eosinophil abs 0.26 0.00 - 0.50 K/cumm ISAAC Comment:Testing performed by : [address] [address] Basophil abs 0.03 0.00 - 0.10 K/cumm ISAAC Comment:Testing performed by : [address] [address] Neutrophil pct 59.4 % ISAAC Comment: Interpretive Data Percent cell count reference ranges are not reported, since discordance with absolute values may lead to misinterpretation of CBC data. Current Interpretive Data was last revised on 2018. Testing performed by: [address] [address] Imm gran pct 0.5 % ISAAC Comment: Interpretive Data Percent cell count reference ranges are not reported, since discordance with absolute values may lead to misinterpretation of CBC data. Current Interpretive Data was last revised on 2018. Testing performed by: [address] [address] Lymphocyte pct 17.7 % ISAAC Comment: Interpretive Data Percent cell count reference ranges are not reported, since discordance with absolute values may lead to misinterpretation of CBC data. Current Interpretive Data was last revised on 2018. Testing performed by: [address] [address] Monocyte pct 14.8 % ISAAC Comment: Interpretive Data Percent cell count reference ranges are not reported, since discordance with absolute values may lead to misinterpretation of CBC data. Current Interpretive Data was last revised on 2018. Testing performed by: [address] [address] Eosinophil pct 6.8 % [facility] Comment: Interpretive Data Percent cell count reference ranges are not reported, since discordance with absolute values may lead to misinterpretation of CBC data. Current Interpretive Data was last revised on 2018. Testing performed by: [address] [address] Basophil pct 0.8 % ISAAC Comment: Interpretive Data Percent cell count reference ranges are not reported, since discordance with absolute values may lead to misinterpretation of CBC data. Current Interpretive Data was last revised on 2018. Testing performed by: [address] [address] Blood 04/26/2025 9:0 1 AM CDT 04/26/2025 9:02 AM CDT us Nena Cano NP LAB BLOOD ORDERABLES Final Result ISAAC SERNA 4680 [facility] Department of Laboratories [place], [place] [id number] * (ABNORMAL) Iron profile w/ IBC (04/26/2025 9:01 AM CDT) Iron 75 50 - 150 mcg/dL Comment:Testing performed by : [address] [address] TIBC 231(L) 250 - 400 mcg/dL ISAAC SERNA Comment:Testing performed by : [address] [address] Transferrin saturation 32 20 - 50 % ISAAC Comment:Testing performed by : [address] [address] Blood 04/26/2025 9:01 AM CDT 04/26/2025 9:51 AM CDT Nena Cano AERODYNAMICS PROFESSOR LAB BLOOD ORDERABLES Final Result Performing Organization Address City/State/[facility] [[email or web address]] Co de Phone Number ISAAC [facility] Department [place] [address] * (ABNORMAL) CBC with auto differential (04/26/2025 9:01 AM CDT) [facility] WBC 3.85 3.80 - 9.90 K/cumm Comment:Testing performed by : [address] [address] Hgb 8.1(L) 13.0 - 17.5 g/dL ISAAC SERNA Comment:Testing performed by : [address] [address] Hct 26.2(L) 38.9 - 50.3 % ISAAC SERNA Comment:Testing performed by : [address] [address] Plt 199 150 - 400 K/cumm ISAAC SERNA Comment:Testing performed by : [address] [address] MPV 8.2(L) 9.1 - 12.3 fL ISAAC SERNA Comment:Testing performed by : [address] [address] RBC 2.64(L) 4.30 - 5.80 M/cumm ISAAC SERNA Comment:Testing performed by : [address] [address] MCV 99.2(H) 81.3 - 96.4 fL ISAAC SERNA Comment:Testing performed by : [address] [address] MCH 30.7 27.1 - 33.3 pg ISAAC SERNA Comment:Testing performed by : [address] [address] MCHC 30.9(L) 32.3 - 35.7 g/dL ISAAC SERNA Comment:Testing performed by : [address] [address] RDW CV 19.6(H) 11.1 - 14.9 % ISAAC SERNA Comment:Testing performed by : [address] [address] RDW SD 70.4(H) 35.7 - 48.1 fL ISAAC SERNA Comment:Testing performed by : [address] [address] NRBC abs 0.00 0.00 - 0.01 K/cumm ISAAC Comment:Testing performed by : [address] [address] ANC Prelim 2.29 1.50 - 6.50 K/cumm ISAAC Comment: Interpretive Data The rapid ANC is a preliminary automated count and may vary from the final ANC (Neut Abs) reported in the WBC differential that follows. Current interpretive data was last revised 2025. Testing performed by: [address] [address] Blood 04/26/2025 9:01 AM CDT 04/26/2025 9:02 AM CDT us Nena Cano NP LAB BLOOD ORDERABLES Final Result ISAAC SERNA [address]256 [facility] Department of Laboratories [place], [place] [id number] * ABO/Rh (04/26/2025 9:01 AM CDT) [facility] ABO/Rh A Positive Comment:Testing performed by : [address] [address] Blood 04/26/2025 9:01 AM CDT 04/26/2025 9:44 AM CDT Narrative ISAAC - 04/26/2025 10:36 AM CDT Has the patient had Daratumumab or Isatuximab in the past 6 months?->Unknown Nena Cano AERODYNAMICS PROFESSOR LAB BLOOD BANK TEST ORDERAB LES Final Result Performing Organization Address [facility] [[email or web address]] Co de Phone Number [address] [employer] [place] [address] * (ABNORMAL) Reticulocyte Count (04/26/2025 9:01 AM CDT) [facility] Retics, absolute 126(H) 20 - 87 K/cumm Comment:Testing performed by : [address] [address] Retics 4.8(H) 0.4 - 2.9 % ISAAC Comment:Testing performed by : [address] [address] Reticulocyte Hgb 32.6 30.5 - 38.0 pg ISAAC Comment:Testing performed by : [address] [address] Blood 04/26/2025 9:01 AM CDT 04/26/2025 9:02 AM CDT Nena Cano LAB BLOOD ORDERABLES Final Result Performing Organization Address [facility] de Phone Number [address] [employer] [place] [address] * Crossmatch (04/26/2025 9:01 AM CDT) [facility] Crossmatch Compatible ISAAC Unit number for crossmatch [id number] ISAAC Blood 04/26/2025 9:01 AM CDT 04/26/2025 9:44 AM CDT Bianca Hunter MD LAB BLOOD BANK TEST ORDERABLES Final Result Performing Organization Address [facility] [[email or web address]] Co de Phone Number [address] [employer] [place] [address] * Antibody screen (04/26/2025 9:01 AM CDT) Pathologist [facility] Divina, indirect, Gel Interpretation Negative ABSC Comment:Testing performed by : [address] [address] Blood 04/26/2025 9:01 AM CDT 04/26/2025 9:44 AM CDT Narrative [facility] 04/26/2025 10:36 AM CDT Has the patient had Daratumumab or Isatuximab in the past 6 months?->Unknown Nena Cano NP LAB BLOOD BANK TEST ORDERAB LES Final Result Performing Organization Address [facility] [[email or web address]] Co de Phone Number [address] [employer] [place] [address] * Ferritin (04/26/2025 9:01 AM CDT) [facility] Ferritin 47 30 - 400 ng/mL Comment:Testing performed by : [address] [address] Blood 04/26/2025 9:01 AM CDT 04/26/2025 9:51 AM CDT Nena Cano NP LAB BLOOD ORDERABLES Final Result Performing Organization Address [facility]/ZIP Co de Phone Number [address] [employer] [place] [address] * (ABNORMAL) Comprehensive metabolic panel (04/26/2025 9:01 AM CDT) [facility] Sodium 138 135 - 145 mmol/L Comment:Testing performed by : [address] [address] Potassium, pl 4.3 3.3 - 4.9 mmol/L ISAAC Comment:Testing performed by : [address] [address] Chloride 107 97 - 110 mmol/L ISAAC Comment:Testing performed by : [address], [place]., [address] CO2 22 22 - 32 mmol/L ISAAC Comment:Testing performed by : [address] [address] Anion gap 9 2 - 15 mmol/L ISAAC Comment:Testing performed by : [address] [address] BUN 17 6 - 25 mg/dL [facility] Comment:Testing performed by : [address] [address] Creatinine 1.60(H) 0.80 - 1.30 mg/dL ISAAC Comment:Testing performed by : [address] [address] Glucose 92 70 - 199 mg/dL [facility] Comment: Interpretive Data Fasting glucose >/= [...] was last revised 2022. Testing performed by: [address] [address] Calcium 9.2 8.5 - 10.3 mg/dL [facility] Comment:Testing performed by : [address] [address] Bilirubin, total 0.3 0.1 - 1.2 mg/dL ISAAC Comment:Testing performed by : [address] [address] Protein, pl 6.3(L) 6.5 - 8.5 g/dL ISAAC Comment:Testing performed by : [address] [address] Albumin 3.6 3.5 - 5.0 g/dL ISAAC Comment:Testing performed by : [address] [address] Alk phos 58 40 - 130 Units/L ISAAC SERNA Comment:Testing performed by : [address] [address] ALT 10 7 - 55 Units/L ISAAC Comment:Testing performed by : [address] [address] AST 14 10 - 50 Units/L ISAAC Comment:Testing performed by : [address] [address] Blood 04/26/2025 9:01 AM CDT 04/26/2025 9:02 AM CDT Bianca Hunter MD LAB BLOOD ORDERABLES Final Result Performing Organization Address City/State/[facility] [[email or web address]] Co de Phone Number [facility] 45[address] [facility] Department [place] [address] * Transfuse RBC (04/12/2025 2:07 PM CDT) Blood Eli Toscano NP BLOOD TRANSFUSION OR DERABLES Final Result * Prepare RBC: 1 Units (04/12/2025 10:48 AM CDT) Units requested 1 Comment:Testing performed by : [address] [address] Units requested Ready ISAAC Comment:Testing performed by : [address] [address] Unit Number [id number] Product code [id number] [facility] Blood Expiration Date [id number] ISAAC Product Blood Type (for scanning) 6200 [facility] Product Blood Type APOS [facility] Dispense Status DISPENSED ISAAC Blood 04/12/2025 10:4 8 AM CDT 04/12/2025 10:48 AM CDT us Bianca Hunter MD BLOOD BANK PRODUCT O RDERABLES Final Result [facility] 6592 [facility] Department [place] [address] * Differential, auto (04/12/2025 9:09 AM CDT) Neutrophil abs 2.16 1.50 - 6.50 K/cumm Comment:Testing performed by : [address] [address] Imm gran abs 0.02 0.00 - 0.10 K/cumm ISAAC Comment:Testing performed by : [address] [address] Lymphocyte abs 0.81 0.80 - 3.30 K/cumm ISAAC Comment:Testing performed by : [address] [address] Monocyte abs 0.51 0.20 - 0.80 K/cumm ISAAC Comment:Testing performed by : [address] [address] Eosinophil abs 0.19 0.00 - 0.50 K/cumm ISAAC Comment:Testing performed by : [address] [address] Basophil abs 0.04 0.00 - 0.10 K/cumm ISAAC Comment:Testing performed by : [address] [address] Neutrophil pct 57.9 % ISAAC Comment: Interpretive Data Percent cell count reference ranges are not reported, since discordance with absolute values may lead to misinterpretation of CBC data. Current Interpretive Data was last revised on 2018. Testing performed by: [address] [address] Imm gran pct 0.5 % ISAAC Comment: Interpretive Data Percent cell count reference ranges are not reported, since discordance with absolute values may lead to misinterpretation of CBC data. Current Interpretive Data was last revised on 2018. Testing performed by: [address] [address] Lymphocyte pct 21.7 % [facility] Comment: Interpretive Data Percent cell count reference ranges are not reported, since discordance with absolute values may lead to misinterpretation of CBC data. Current Interpretive Data was last revised on 2018. Testing performed by: [address] [address] Monocyte pct 13.7 % [facility] Comment: Interpretive Data Percent cell count reference ranges are not reported, since discordance with absolute values may lead to misinterpretation of CBC data. Current Interpretive Data was last revised on 2018. Testing performed by: [address] [address] Eosinophil pct 5.1 % [facility] Comment: Interpretive Data Percent cell count reference ranges are not reported, since discordance with absolute values may lead to misinterpretation of CBC data. Current Interpretive Data was last revised on 2018. Testing performed by: [address] [address] Basophil pct 1.1 % [facility] Comment: Interpretive Data Percent cell count reference ranges are not reported, since discordance with absolute values may lead to misinterpretation of CBC data. Current Interpretive Data was last revised on 2018. Testing performed by: [address] [address] Blood 04/12/2025 9:09 AM CDT 04/12/2025 9:10 AM CDT us Nena Cano AERODYNAMICS PROFESSOR LAB BLOOD ORDERABLES Final Result ISAAC 83[address] [facility] Department [place] [address] * (ABNORMAL) Iron profile w/ IBC (04/12/2025 9:09 AM CDT) [facility] Iron 104 50 - 150 mcg/dL Comment:Testing performed by : [address] [address] TIBC 226(L) 250 - 400 mcg/dL ISAAC SERNA Comment:Testing performed by : [address] [address] Transferrin saturation 46 20 - 50 % ISAAC Comment:Testing performed by : [address] [address] Blood 04/12/2025 9:0 9 AM CDT 04/12/2025 9:45 AM CDT Nena Cano AERODYNAMICS PROFESSOR LAB BLOOD ORDERABLES Final Result ISAAC 4500 [facility] Department [place] [address] * (ABNORMAL) CBC with auto differential (04/12/2025 9:09 AM CDT) WBC 3.73(L) 3.80 - 9.90 K/cumm Comment:Testing performed by : [address] [address] Hgb 7.9(L) 13.0 - 17.5 g/dL ISAAC Comment:Testing performed by : [address] [address] Hct 25.0(L) 38.9 - 50.3 % ISAAC Comment:Testing performed by : [address] [address] Plt 215 150 - 400 K/cumm ISAAC Comment:Testing performed by : [address] [address] MPV 8.5(L) 9.1 - 12.3 fL ISAAC Comment:Testing performed by : [address] [address] RBC 2.63(L) 4.30 - 5.80 M/cumm ISAAC SERNA Comment:Testing performed by : [address] [address] MCV 95.1 81.3 - 96.4 fL ISAAC SERNA Comment:Testing performed by : [address] [address] MCH 30.0 27.1 - 33.3 pg ISAAC Comment:Testing performed by : [address] [address] MCHC 31.6(L) 32.3 - 35.7 g/dL ISAAC Comment:Testing performed by : [address] [address] RDW CV 20.8(H) 11.1 - 14.9 % ISAAC Comment:Testing performed by : [address] [address] RDW SD 71.6(H) 35.7 - 48.1 fL ISAAC Comment:Testing performed by : [address] [address] NRBC abs 0.00 0.00 - 0.01 K/cumm ISAAC Comment:Testing performed by : [address] [address] ANC Prelim 2.16 1.50 - 6.50 K/cumm ISAAC Comment: Interpretive Data The rapid ANC is a preliminary automated count and may vary from the final ANC (Neut Abs) reported in the WBC differential that follows. Current interpretive data was last revised 2025. Testing performed by: [address] [address] Blood 04/12/2025 9:09 AM CDT 04/12/2025 9:10 AM CDT Nena Cano AERODYNAMICS PROFESSOR LAB BLOOD ORDERABLES Final Result [facility] 38[address] [facility] Department [place] [address] * ABO/Rh (04/12/2025 9:09 AM CDT) ABO/Rh A Positive Comment:Testing performed by : [address], [address] Blood 04/12/2025 9:09 AM CDT 04/12/2025 9:45 AM CDT Narrative [facility] - 04/12/2025 10:25 AM CDT Has the patient had Daratumumab or Isatuximab in the past 6 months?->Unknown Nena Cano AERODYNAMICS PROFESSOR LAB BLOOD BANK TEST ORDERAB LES Final Result Performing Organization Address [facility] [[email or web address]] Co de Phone Number [address] [address] * (ABNORMAL) Reticulocyte Count (04/12/2025 9:09 AM CDT) Retics, absolute 108(H) 20 - 87 K/cumm Comment:Testing performed by : [address] [address] Retics 4.1(H) 0.4 - 2.9 % [facility] Comment:Testing performed by : [address] [address] Reticulocyte Hgb 34.1 30.5 - 38.0 pg ISAAC Comment:Testing performed by : [address] [address] Blood 04/12/2025 9:09 AM CDT 04/12/2025 9:10 AM CDT Nena Cano AERODYNAMICS PROFESSOR LAB BLOOD ORDERABLES Final Result Performing Organization Address [facility] de Phone Number [address] [address] * Crossmatch (04/12/2025 9:09 AM CDT) Crossmatch Compatible [facility] Unit number for crossmatch [id number] [facility] Blood 04/12/2025 9:09 AM CDT 04/12/2025 9:48 AM CDT Nena Cano AERODYNAMICS PROFESSOR LAB BLOOD BANK TEST ORDERAB LES Final Result Performing Organization Address City/[facility] [[email or web address]] Co de Phone Number [address] [address] * Antibody screen (04/12/2025 9:09 AM CDT) Pathologist [facility] Divina, indirect, Gel Interpretation Negative ABSC Comment:Testing performed by : [address] [address] Blood 04/12/2025 9:09 AM CDT 04/12/2025 9:45 AM CDT Narrative [facility] 04/12/2025 10:43 AM CDT Has the patient had Daratumumab or Isatuximab in the past 6 months?->Unknown Nena Cano AERODYNAMICS PROFESSOR LAB BLOOD BANK TEST ORDERAB LES Final Result Performing Organization Address [facility] [[email or web address]] Co de Phone Number [address] [address] * Ferritin (04/12/2025 9:09 AM CDT) [facility] Ferritin 58 30 - 400 ng/mL Comment:Testing performed by : [address] [address] Blood 04/12/2025 9:09 AM CDT 04/12/2025 9:45 AM CDT Nena Cano AERODYNAMICS PROFESSOR LAB BLOOD ORDERABLES Final Result [address] [address] * PET/CT FDG Skull to Thigh (04/10/2025 [...] liver and <= 2x SUV max liver Bugkuzik-ep-jnvsfh: >2x SUV max liver and <= 3x [...] Naomi Pimentel M.D. FT: FT Report ID: [id number] Reading Location: [id number] Procedure Note Naomi Martini MD - 04/10/2025 [...] liver and <= 2x SUV max liver Pyqnznva-ui-swqoxn: >2x SUV max liver and <= 3x [...] Naomi Pimentel M.D. FT: FT Report ID: [id number] Reading Location: [place] [address] Bianca Hunter MD IMG PET PROCEDURES F inal Result * POCT glucose (04/10/2025 8:22 AM CDT) Pathologist [facility] Glucose, POC 88 70 - 199 mg/dL Comment:Testing performed by : [address] [address] Blood 04/10/2025 8:22 AM CDT 04/10/2025 8:22 AM CDT Bianca Hunter MD LAB POCT ORDERABLES - DEVICE Final Result [facility] [address] [address] [place] [address] * Differential, auto (04/04/2025 10:10 AM CDT) [facility] Neutrophil abs 2.03 1.50 - 6.50 K/cumm Comment:Testing performed by : [address] [address] Imm gran abs 0.02 0.00 - 0.10 K/cumm ISAAC Comment:Testing performed by : [address] [address] Lymphocyte abs 0.96 0.80 - 3.30 K/cumm ISAAC Comment:Testing performed by : [address] [address] Monocyte abs 0.51 0.20 - 0.80 K/cumm ISAAC Comment:Testing performed by : [address] [address] Eosinophil abs 0.15 0.00 - 0.50 K/cumm ISAAC Comment:Testing performed by : [address] [address] Basophil abs 0.03 0.00 - 0.10 K/cumm ISAAC Comment:Testing performed by : [address] [address] Neutrophil pct 54.9 % ISAAC Comment: Interpretive Data Percent cell count reference ranges are not reported, since discordance with absolute values may lead to misinterpretation of CBC data. Current Interpretive Data was last revised on 2018. Testing performed by: [address] [address] Imm gran pct 0.5 % CERADAM Comment: Interpretive Data Percent cell count reference ranges are not reported, since discordance with absolute values may lead to misinterpretation of CBC data. Current Interpretive Data was last revised on 2018. Testing performed by: [address] [address] Lymphocyte pct 25.9 % [facility] Comment: Interpretive Data Percent cell count reference ranges are not reported, since discordance with absolute values may lead to misinterpretation of CBC data. Current Interpretive Data was last revised on 2018. Testing performed by: [address] [address] Monocyte pct 13.8 % [facility] Comment: Interpretive Data Percent cell count reference ranges are not reported, since discordance with absolute values may lead to misinterpretation of CBC data. Current Interpretive Data was last revised on 2018. Testing performed by: [address] [address] Eosinophil pct 4.1 % [facility] Comment: Interpretive Data Percent cell count reference ranges are not reported, since discordance with absolute values may lead to misinterpretation of CBC data. Current Interpretive Data was last revised on 2018. Testing performed by: [address] [address] Basophil pct 0.8 % [facility] Comment: Interpretive Data Percent cell count reference ranges are not reported, since discordance with absolute values may lead to misinterpretation of CBC data. Current Interpretive Data was last revised on 2018. Testing performed by: [address] [address] Blood 04/04/2025 10:1 0 AM CDT 04/04/2025 10:10 AM CDT Nena Mamta Golec AERODYNAMICS PROFESSOR LAB BLOOD ORDERABLES Final Result Performing Organization Address [facility] de Phone Number [place] [address] [facility] [place] [address] * (ABNORMAL) Iron profile w/ IBC (04/04/2025 10:10 AM CDT) [facility] Iron 138 50 - 150 mcg/dL Comment:Testing performed by : [address] [address] TIBC 228(L) 250 - 400 mcg/dL ISAAC SERNA Comment:Testing performed by : [address] [address] Transferrin saturation 61(H) 20 - 50 % ISAAC SERNA Comment:Testing performed by : [address] [address] Blood 04/04/2025 10:1 0 AM CDT 04/04/2025 11:44 AM CDT Nena Cano AERODYNAMICS PROFESSOR LAB BLOOD ORDERABLES Final Result Performing Organization Address [facility] de Phone Number ISAAC [address] Department [place] [address] * (ABNORMAL) CBC with auto differential (04/04/2025 10:10 AM CDT) [facility] WBC 3.70(L) 3.80 - 9.90 K/cumm Comment:Testing performed by : [address] [address] Hgb 8.2(L) 13.0 - 17.5 g/dL ISAAC SERNA Comment:Testing performed by : [address] [address] Hct 26.2(L) 38.9 - 50.3 % ISAAC SERNA Comment:Testing performed by : [address] [address] Plt 205 150 - 400 K/cumm ISAAC SERNA Comment:Testing performed by : [address] [address] MPV 9.1 9.1 - 12.3 fL ISAAC SERNA Comment:Testing performed by : [address] [address] RBC 2.79(L) 4.30 - 5.80 M/cumm ISAAC SERNA Comment:Testing performed by : [address] [address] MCV 93.9 81.3 - 96.4 fL ISAAC Comment:Testing performed by : [address] [address] MCH 29.4 27.1 - 33.3 pg ISAAC Comment:Testing performed by : [address] [address] MCHC 31.3(L) 32.3 - 35.7 g/dL ISAAC Comment:Testing performed by : [address] [address] RDW CV 19.9(H) 11.1 - 14.9 % ISAAC Comment:Testing performed by : [address] [address] RDW SD 68.3(H) 35.7 - 48.1 fL ISAAC Comment:Testing performed by : [address] [address] NRBC abs 0.00 0.00 - 0.01 K/cumm ISAAC Comment:Testing performed by : [address] [address] ANC Prelim 2.03 1.50 - 6.50 K/cumm ISAAC Comment: Interpretive Data The rapid ANC is a preliminary automated count and may vary from the final ANC (Neut Abs) reported in the WBC differential that follows. Current interpretive data was last revised 2025. Testing performed by: [address] [address] Blood 04/04/2025 10:1 0 AM CDT 04/04/2025 10:10 AM CDT Nena Cano NP LAB BLOOD ORDERABLES Final Result [address] [place] [address] * Reticulocyte Count (04/04/2025 10:10 AM CDT) Pathologist [facility], absolute 78 20 - 87 K/cumm Comment:Testing performed by : [facility], [address] [place] [address]., [address] Retics 2.8 0.4 - 2.9 % ISAAC Comment:Testing performed by : [address] [address] Reticulocyte Hgb 30.5 30.5 - 38.0 pg ISAAC Comment:Testing performed by : [address] [address] Blood 04/04/2025 10:1 0 AM CDT 04/04/2025 10:10 AM CDT Nena Cano AERODYNAMICS PROFESSOR LAB BLOOD ORDERABLES Final Result [address] [place] [facility] [place] [address] * Ferritin (04/04/2025 10:10 AM CDT) [facility] Ferritin 65 30 - 400 ng/mL Comment:Testing performed by : [address] [address] Blood 04/04/2025 10:1 0 AM CDT 04/04/2025 11:44 AM CDT Nena Cano AERODYNAMICS PROFESSOR LAB BLOOD ORDERABLES Final Result [address] [facility] [place] [address] * Differential, auto (03/29/2025 9:10 AM CDT) [facility] Neutrophil abs 1.83 1.50 - 6.50 K/cumm Comment:Testing performed by : [address] [address] Imm gran abs 0.01 0.00 - 0.10 K/cumm [facility] Comment:Testing performed by : [address] [address] Lymphocyte abs 0.94 0.80 - 3.30 K/cumm [facility] Comment:Testing performed by : [address] [address] Monocyte abs 0.60 0.20 - 0.80 K/cumm [facility] Comment:Testing performed by : [address] [address] Eosinophil abs 0.16 0.00 - 0.50 K/cumm [facility] Comment:Testing performed by : [address] [address] Basophil abs 0.04 0.00 - 0.10 K/cumm [facility] Comment:Testing performed by : [address] [address] Neutrophil pct 51.0 % [facility] Comment: Interpretive Data Percent cell count reference ranges are not reported, since discordance with absolute values may lead to misinterpretation of CBC data. Current Interpretive Data was last revised on 2018. Testing performed by: [address] [address] Imm gran pct 0.3 % [facility] Comment: Interpretive Data Percent cell count reference ranges are not reported, since discordance with absolute values may lead to misinterpretation of CBC data. Current Interpretive Data was last revised on 2018. Testing performed by: [address] [address] Lymphocyte pct 26.3 % [facility] Comment: Interpretive Data Percent cell count reference ranges are not reported, since discordance with absolute values may lead to misinterpretation of CBC data. Current Interpretive Data was last revised on 2018. Testing performed by: [address] [address] Monocyte pct 16.8 % [facility] Comment: Interpretive Data Percent cell count reference ranges are not reported, since discordance with absolute values may lead to misinterpretation of CBC data. Current Interpretive Data was last revised on 2018. Testing performed by: [address] [address] Eosinophil pct 4.5 % ISAAC Comment: Interpretive Data Percent cell count reference ranges are not reported, since discordance with absolute values may lead to misinterpretation of CBC data. Current Interpretive Data was last revised on 2018. Testing performed by: [address] [address] Basophil pct 1.1 % ISAAC Comment: Interpretive Data Percent cell count reference ranges are not reported, since discordance with absolute values may lead to misinterpretation of CBC data. Current Interpretive Data was last revised on 2018. Testing performed by: [address] [address] Blood 03/29/2025 9:10 AM CDT 03/29/2025 9:11 AM CDT Nena Cano AERODYNAMICS PROFESSOR LAB BLOOD ORDERABLES Final Result Performing Organization Address City/[facility] [[email or web address]] Co de Phone Number [facility] [address] [facility] Department [place] [address] * (ABNORMAL) Iron profile w/ IBC (03/29/2025 9:10 AM CDT) [facility] Iron 49(L) 50 - 150 mcg/dL Comment:Testing performed by : [address] [address] TIBC 201(L) 250 - 400 mcg/dL ISAAC Comment:Testing performed by : [address] [address] Transferrin saturation 24 20 - 50 % ISAAC Comment:Testing performed by : [address] [address] Blood 03/29/2025 9:10 AM CDT 03/29/2025 9:47 AM CDT Nena Cano AERODYNAMICS PROFESSOR LAB BLOOD ORDERABLES Final Result Performing Organization Address City/[facility]/ZIP Co de Phone Number [facility] [address] [facility] Department [place] [address] * (ABNORMAL) CBC with auto differential (03/29/2025 9:10 AM CDT) [facility] Signature WBC 3.58(L) 3.80 - 9.90 K/cumm Comment:Testing performed by : [address] [address] Hgb 8.8(L) 13.0 - 17.5 g/dL ISAAC Comment:Testing performed by : [address] [address] Hct 27.7(L) 38.9 - 50.3 % ISAAC Comment:Testing performed by : [address] [address] Plt 192 150 - 400 K/cumm ISAAC Comment:Testing performed by : [address] [address] MPV 8.8(L) 9.1 - 12.3 fL ISAAC Comment:Testing performed by : [address] [address] RBC 3.01(L) 4.30 - 5.80 M/cumm ISAAC Comment:Testing performed by : [address] [address] MCV 92.0 81.3 - 96.4 fL ISAAC Comment:Testing performed by : [address] [address] MCH 29.2 27.1 - 33.3 pg ISAAC Comment:Testing performed by : [address] [address] MCHC 31.8(L) 32.3 - 35.7 g/dL ISAAC Comment:Testing performed by : [address] [address] RDW CV 20.7(H) 11.1 - 14.9 % ISAAC Comment:Testing performed by : [address] [address] RDW SD 69.5(H) 35.7 - 48.1 fL ISAAC SERNA Comment:Testing performed by : [address] [address] NRBC abs 0.00 0.00 - 0.01 K/cumm ISAAC SERNA Comment:Testing performed by : [address] [address] ANC Prelim 1.83 1.50 - 6.50 K/cumm ISAAC SERNA Comment: Interpretive Data The rapid ANC is a preliminary automated count and may vary from the final ANC (Neut Abs) reported in the WBC differential that follows. Current interpretive data was last revised 2025. Testing performed by: [address] [address] Blood 03/29/2025 9:10 AM CDT 03/29/2025 9:11 AM CDT Nena Cano NP LAB BLOOD ORDERABLES Final Result Performing Organization Address [facility] [[email or web address]] Co de Phone Number [place] [phone] [facility] [employer] [place], [place] [id number] * Reticulocyte Count (03/29/2025 9:10 AM CDT) Retics, absolute 79 20 - 87 K/cumm Comment:Testing performed by : [address] [address] Retics 2.6 0.4 - 2.9 % ISAAC Comment:Testing performed by : [address] [address] Reticulocyte Hgb 32.0 30.5 - 38.0 pg ISAAC Comment:Testing performed by : [address] [address] Blood 03/29/2025 9:10 AM CDT 03/29/2025 9:11 AM CDT Nena Cano NP LAB BLOOD ORDERABLES Final Result Performing Organization Address [facility] [[email or web address]] Co de Phone Number [facility] [address] [facility] [place] [address] * Ferritin (03/29/2025 9:10 AM CDT) Pathologist [facility] Ferritin 76 30 - 400 ng/mL Comment:Testing performed by : [address] [address] Blood 03/29/2025 9:10 AM CDT 03/29/2025 9:47 AM CDT us Nena Cano AERODYNAMICS PROFESSOR LAB BLOOD ORDERABLES Final Result [facility] [address] [facility] [place] [address] * (ABNORMAL) Differential, auto (03/15/2025 9:10 AM CDT) [facility] Neutrophil abs 1.35(L) 1.50 - 6.50 K/cumm Comment:Testing performed by : [address] [address] Imm gran abs 0.02 0.00 - 0.10 K/cumm ISAAC Comment:Testing performed by : [address] [address] Lymphocyte abs 0.76(L) 0.80 - 3.30 K/cumm ISAAC Comment:Testing performed by : [address] [address] Monocyte abs 0.69 0.20 - 0.80 K/cumm ISAAC Comment:Testing performed by : [address] [address] Eosinophil abs 0.05 0.00 - 0.50 K/cumm ISAAC Comment:Testing performed by : [address] [address] Basophil abs 0.02 0.00 - 0.10 K/cumm ISAAC Comment:Testing performed by : [address] [address] Neutrophil pct 46.7 % ISAAC Comment: Interpretive Data Percent cell count reference ranges are not reported, since discordance with absolute values may lead to misinterpretation of CBC data. Current Interpretive Data was last revised on 2018. Testing performed by: [address] [address] Imm gran pct 0.7 % [facility] Comment: Interpretive Data Percent cell count reference ranges are not reported, since discordance with absolute values may lead to misinterpretation of CBC data. Current Interpretive Data was last revised on 2018. Testing performed by: [address] [address] Lymphocyte pct 26.3 % [facility] Comment: Interpretive Data Percent cell count reference ranges are not reported, since discordance with absolute values may lead to misinterpretation of CBC data. Current Interpretive Data was last revised on 2018. Testing performed by: [address] [address] Monocyte pct 23.9 % [facility] Comment: Interpretive Data Percent cell count reference ranges are not reported, since discordance with absolute values may lead to misinterpretation of CBC data. Current Interpretive Data was last revised on 2018. Testing performed by: [address] [address] Eosinophil pct 1.7 % [facility] Comment: Interpretive Data Percent cell count reference ranges are not reported, since discordance with absolute values may lead to misinterpretation of CBC data. Current Interpretive Data was last revised on 2018. Testing performed by: [address] [address] Basophil pct 0.7 % [facility] Comment: Interpretive Data Percent cell count reference ranges are not reported, since discordance with absolute values may lead to misinterpretation of CBC data. Current Interpretive Data was last revised on 2018. Testing performed by: [address] [address] Blood 03/15/2025 9:10 AM CDT 03/15/2025 9:12 AM CDT Nena Cano AERODYNAMICS PROFESSOR LAB BLOOD ORDERABLES Final Result [facility] [address] [facility] Department [place] [address] * (ABNORMAL) Iron profile w/ IBC (03/15/2025 9:10 AM CDT) [facility] Iron 57 50 - 150 mcg/dL Comment:Testing performed by : [address] [address] TIBC 190(L) 250 - 400 mcg/dL IS[facility]AC SERNA Comment:Testing performed by : [address] [address] Transferrin saturation 30 20 - 50 % ISAAC Comment:Testing performed by : [address] [address] Blood 03/15/2025 9:10 AM CDT 03/15/2025 9:39 AM CDT Nena Cano AERODYNAMICS PROFESSOR LAB BLOOD ORDERABLES Final Result Performing Organization Address City/State/[facility] [[email or web address]] Co de Phone Number [facility] [address] [facility] Department [place] [address] * (ABNORMAL) CBC with auto differential (03/15/2025 9:10 AM CDT) [facility] WBC 2.89(L) 3.80 - 9.90 K/cumm Comment:Testing performed by : [address] [address] Hgb 10.0(L) 13.0 - 17.5 g/dL [facility] SERNA Comment:Testing performed by : [address] [address] Hct 31.2(L) 38.9 - 50.3 % [facility] SERNA Comment:Testing performed by : [address] [address]27 Plt 225 150 - 400 K/cumm IS[facility]AC SERNA Comment:Testing performed by : [address] [address] MPV 9.0(L) 9.1 - 12.3 fL [facility] SERNA Comment:Testing performed by : [address] [address] RBC 3.42(L) 4.30 - 5.80 M/cumm IS[facility]AC SERNA Comment:Testing performed by : [address] [address] MCV 91.2 81.3 - 96.4 fL [facility] SERNA Comment:Testing performed by : [address] [address] MCH 29.2 27.1 - 33.3 pg IS[facility]AC SERNA Comment:Testing performed by : [address] [address] MCHC 32.1(L) 32.3 - 35.7 g/dL IS[facility]AC SERNA Comment:Testing performed by : [address] [address] RDW CV 20.9(H) 11.1 - 14.9 % [facility] SERNA Comment:Testing performed by : [address] [address] RDW SD 69.1(H) 35.7 - 48.1 fL [facility]AC SERNA Comment:Testing performed by : [address] [address] NRBC abs 0.00 0.00 - 0.01 K/cumm ISAAC Comment:Testing performed by : [address] [address] ANC Prelim 1.35(L) 1.50 - 6.50 K/cumm ISAAC Comment: Interpretive Data The rapid ANC is a preliminary automated count and may vary from the final ANC (Neut Abs) reported in the WBC differential that follows. Current interpretive data was last revised 2025. Testing performed by: [address] [address] Blood 03/15/2025 9:10 AM CDT 03/15/2025 9:12 AM CDT us Nena Cano NP LAB BLOOD ORDERABLES Final Result [facility] SERNA [address] [place] [address] * (ABNORMAL) Reticulocyte Count (03/15/2025 9:10 AM CDT) [facility] Retics, absolute 99(H) 20 - 87 K/cumm Comment:Testing performed by : [address] [address] Retics 2.9 0.4 - 2.9 % ISAAC Comment:Testing performed by : [address] [address] Reticulocyte Hgb 33.0 30.5 - 38.0 pg ISAAC Comment:Testing performed by : [address] [address] Blood 03/15/2025 9:10 AM CDT 03/15/2025 9:12 AM CDT Nena Cano AERODYNAMICS PROFESSOR LAB BLOOD ORDERABLES Final Result Performing Organization Address City/[facility]/ZIP Co de Phone Number [address] [address] * Ferritin (03/15/2025 9:10 AM CDT) [facility] Ferritin 131 30 - 400 ng/mL Comment:Testing performed by : [address] [address] Blood 03/15/2025 9:10 AM CDT 03/15/2025 9:39 AM CDT Nena Cano AERODYNAMICS PROFESSOR LAB BLOOD ORDERABLES Final Result [address] [address] * (ABNORMAL) Protime-INR (02/28/2025 12:40 PM CDT) [facility] PT 41.1(H) 12.0 - 14.6 sec Comment: Ref Range High Testing performed by: [address] [address] INR 4.4(H) 0.9 - 1.2 ISAAC Comment: Ref Range High Interpretive data Oral anticoagulant therapeutic ranges: Venous thromboembolism prophylaxis or treatment: 2.0-3.0 CARDIOLOGY Standard range: 2.0-3.0 High-intensity range: 2.5-3.5 Refer to indication-specific guidelines for appropriate target ranges for prosthetic heart valve replacement. Current interpretive data was last revised on 2019. Testing performed by: [address] [address] Blood 02/28/2025 12:4 0 PM CDT 02/28/2025 1:32 PM CDT us Jas Alcala MD LAB BLOOD ORDERABLES Final R esult Performing Organization Address [facility] [[email or web address]] Co de Phone Number [address] [place] [address] * Blood smear review (02/28/2025 12:03 PM CDT) RBC morphology Consistent with RBC Indicies Comment:Testing performed by : [address] [address] Platelet estimate Adequate ISAAC Comment:Testing performed by : [address] [address] Blood 02/28/2025 12:0 3 PM CDT 02/28/2025 12:05 PM CDT Bianca Hunter MD LAB BLOOD ORDERABLES Final Result Performing Organization Address City/[facility]/ZIP Co de Phone Number [address] [place] [address] * eGFR (02/28/2025 12:03 PM CDT) eGFR [...] was last reviewed 2021. Testing performed by: [address] [address] Blood 02/28/2025 12:0 3 PM CDT 02/28/2025 12:05 PM CDT Bianca Hunter MD LAB BLOOD ORDERABLES Final Result [facility] Department [place] [address] * (ABNORMAL) Differential, auto (02/28/2025 12:03 PM CDT) Neutrophil abs 0.91(L) 1.50 - 6.50 K/cumm Comment:Testing performed by : [address] [address] Imm gran abs 0.06 0.00 - 0.10 K/cumm ISAAC Comment:Testing performed by : [address] [address] Lymphocyte abs 0.33(L) 0.80 - 3.30 K/cumm ISAAC Comment:Testing performed by : [address] [address] Monocyte abs 0.41 0.20 - 0.80 K/cumm ISAAC Comment:Testing performed by : [address] [address] Eosinophil abs 0.04 0.00 - 0.50 K/cumm [facility] Comment:Testing performed by : [address] [address] Basophil abs 0.02 0.00 - 0.10 K/cumm [facility] Comment:Testing performed by : [address] [address] Neutrophil pct 51.4 % [facility] Comment: Differential consistent with previous result. Interpretive Data Percent cell count reference ranges are not reported, since discordance with absolute values may lead to misinterpretation of CBC data. Current Interpretive Data was last revised on 2018. Testing performed by: [address] [address] Imm gran pct 3.4 % [facility] Comment: Interpretive Data Percent cell count reference ranges are not reported, since discordance with absolute values may lead to misinterpretation of CBC data. Current Interpretive Data was last revised on 2018. Testing performed by: [address] [address] Lymphocyte pct 18.6 % [facility] Comment: Interpretive Data Percent cell count reference ranges are not reported, since discordance with absolute values may lead to misinterpretation of CBC data. Current Interpretive Data was last revised on 2018. Testing performed by: [address] [address] Monocyte pct 23.2 % [facility] Comment: Interpretive Data Percent cell count reference ranges are not reported, since discordance with absolute values may lead to misinterpretation of CBC data. Current Interpretive Data was last revised on 2018. Testing performed by: [address] [address] Eosinophil pct 2.3 % [facility] Comment: Interpretive Data Percent cell count reference ranges are not reported, since discordance with absolute values may lead to misinterpretation of CBC data. Current Interpretive Data was last revised on 2018. Testing performed by: [address] [address] Basophil pct 1.1 % [facility] Comment: Interpretive Data Percent cell count reference ranges are not reported, since discordance with absolute values may lead to misinterpretation of CBC data. Current Interpretive Data was last revised on 2018. Testing performed by: [address] [address] Blood 02/28/2025 12:0 3 PM CDT 02/28/2025 12:05 PM CDT Bianca Hunter MD LAB BLOOD ORDERABLES Final Result Performing Organization Address [facility] de Phone Number [facility] [place] [address] * (ABNORMAL) Iron profile w/ IBC (02/28/2025 12:03 PM CDT) Pathologist [facility] Iron 56 50 - 150 mcg/dL Comment:Testing performed by : [address] [address] TIBC 164(L) 250 - 400 mcg/dL ISAAC Comment:Testing performed by : [address] [address] Transferrin saturation 34 20 - 50 % IS[facility]AC Comment:Testing performed by : [address] [address] Blood 02/28/2025 12:0 3 PM CDT 02/28/2025 1:32 PM CDT Nena Cano NP LAB BLOOD ORDERABLES Final Result Performing Organization Address [facility] de Phone Number [address] [place] [address] * (ABNORMAL) CBC with auto differential (02/28/2025 12:03 PM CDT) Pathologist [facility] WBC 1.77(L) 3.80 - 9.90 K/cumm Comment:Testing performed by : [address] [address] Hgb 9.3(L) 13.0 - 17.5 g/dL ISAAC Comment:Testing performed by : [address] [place]., [address] Hct 28.9(L) 38.9 - 50.3 % ISAAC Comment:Testing performed by : [address] [address] Plt 168 150 - 400 K/cumm ISAAC Comment:Testing performed by : [address] [address] MPV 9.5 9.1 - 12.3 fL ISAAC Comment:Testing performed by : [address], [address] RBC 3.22(L) 4.30 - 5.80 M/cumm ISAAC Comment:Testing performed by : [address] [address] MCV 89.8 81.3 - 96.4 fL ISAAC Comment:Testing performed by : [address] [address] MCH 28.9 27.1 - 33.3 pg ISAAC Comment:Testing performed by : [address] [address] MCHC 32.2(L) 32.3 - 35.7 g/dL ISAAC Comment:Testing performed by : [address] [address] RDW CV 18.7(H) 11.1 - 14.9 % ISAAC Comment:Testing performed by : [address], [address] RDW SD 58.7(H) 35.7 - 48.1 fL ISAAC Comment:Testing performed by : [address] [address] NRBC abs 0.00 0.00 - 0.01 K/cumm ISAAC Comment:Testing performed by : [address] [address] ANC Prelim 0.91(L) 1.50 - 6.50 K/cumm ISAAC Comment: Interpretive Data The rapid ANC is a preliminary automated count and may vary from the final ANC (Neut Abs) reported in the WBC differential that follows. Current interpretive data was last revised 2025. Testing performed by: [address] [address] Blood 02/28/2025 12:0 3 PM CDT 02/28/2025 12:05 PM CDT Bianca Hunter MD LAB BLOOD ORDERABLES Final Result Performing Organization Address [facility] de Phone Number [address] [facility] [place] [address] * (ABNORMAL) Reticulocyte Count (02/28/2025 12:03 PM CDT) Retics, absolute 86 20 - 87 K/cumm Comment:Testing performed by : [address] [address] Retics 2.7 0.4 - 2.9 % ISAAC Comment:Testing performed by : [address] [address] Reticulocyte Hgb 30.4(L) 30.5 - 38.0 pg ISAAC Comment:Testing performed by : [address] [address] Blood 02/28/2025 12:0 3 PM CDT 02/28/2025 12:05 PM CDT Nena Cano NP LAB BLOOD ORDERABLES Final Result Performing Organization Address [facility] de Phone Number [address] [address] * Ferritin (02/28/2025 12:03 PM CDT) Pathologist [facility] Ferritin 208 30 - 400 ng/mL Comment:Testing performed by : [address] [address] Blood 02/28/2025 12:0 3 PM CDT 02/28/2025 1:32 PM CDT Nena Cano AGNIESZKA LAB BLOOD ORDERABLES Final Result ISAAC 4500 [facility] Department [place] [address] * (ABNORMAL) Comprehensive metabolic panel (02/28/2025 12:03 PM CDT) Sodium 138 135 - 145 mmol/L Comment:Testing performed by : [address] [address] Potassium, pl 3.6 3.3 - 4.9 mmol/L ISAAC Comment:Testing performed by : [address] [address] Chloride 106 97 - 110 mmol/L ISAAC Comment:Testing performed by : [address] [address] CO2 22 22 - 32 mmol/L ISAAC Comment:Testing performed by : [address] [address] Anion gap 10 2 - 15 mmol/L ISAAC Comment:Testing performed by : [address] [address] BUN 12 6 - 25 mg/dL ISAAC Comment:Testing performed by : [address] [address] Creatinine 1.10 0.80 - 1.30 mg/dL ISAAC Comment:Testing performed by : [address] [address] Glucose 91 70 - 199 mg/dL ISAAC [...] was last revised 2022. Testing performed by: [address] [address] Calcium 8.7 8.5 - 10.3 mg/dL ISAAC Comment:Testing performed by : [address] [address] Bilirubin, total 0.4 0.1 - 1.2 mg/dL ISAAC Comment:Testing performed by : [address] [address] Protein, pl 5.6(L) 6.5 - 8.5 g/dL ISAAC Comment:Testing performed by : [address], [place]., [address] Albumin 3.2(L) 3.5 - 5.0 g/dL ISAAC Comment:Testing performed by : [address] [address] Alk phos 64 40 - 130 Units/L ISAAC Comment:Testing performed by : [address] [address] ALT 14 7 - 55 Units/L ISAAC Comment:Testing performed by : [address] [address] AST 19 10 - 50 Units/L ISAAC Comment:Testing performed by : [address] [address] Blood 02/28/2025 12:0 3 PM CDT 02/28/2025 12:05 PM CDT Bianca Hunter MD LAB BLOOD ORDERABLES Final Result ISAAC 3131 [facility] Department of [facility] [place], [place] [id number] * RAD ONC ARIA SESSION SUMMARY (02/27/2025 [...] Comment: Ref Range High Testing performed by: [address] [address] INR 5.9(C) 0.9 - 1.2 ISAAC SERNA Comment: Ref Range High Critical value. Results called to and read back by: Critical Result called to and read back by Ceci Antony NP for [facility], DATE: 2025-02-24 18:09:13 BY: Adrianna Mascorro MLS [email or web address] Interpretive data Oral anticoagulant therapeutic ranges: Venous thromboembolism prophylaxis or treatment: 2.0-3.0 CARDIOLOGY Standard range: 2.0-3.0 High-intensity range: 2.5-3.5 Refer to indication-specific guidelines for appropriate target ranges for prosthetic heart valve replacement. Current interpretive data was last revised on 2019. Testing performed by: [address] [address] Blood 02/24/2025 2:55 PM CDT 02/24/2025 4:04 PM CDT us Jas Alcala MD LAB BLOOD ORDERABLES Final R esult ISAAC SERNA 1579 [facility] Department [place] [address] * RAD ONC ARIA SESSION [...] ONCOLOGY ORD ERABLES Final Result ARIJovana * eGFR (02/23/2025 9:31 AM CDT) eGFR [...] was last reviewed 2021. Testing performed by: [address] [address] Blood 02/23/2025 9:31 AM CDT 02/23/2025 9:46 AM CDT Bianca Hunter MD LAB BLOOD ORDERABLES Final Result ISAAC 4500 [facility] Department [place] [address] * (ABNORMAL) Differential, auto (02/23/2025 9:31 AM CDT) Neutrophil abs 0.19(C) 1.50 - 6.50 K/cumm Comment: This result has been called to Meme Dean RN Epic Secure Chat by [email or web address] on 02/23/2025 09:58:21, and has been read back. Testing performed by: [address] [address] Imm gran abs 0.01 0.00 - 0.10 K/cumm ISAAC Comment:Testing performed by : [address] [address] Lymphocyte abs 0.20(L) 0.80 - 3.30 K/cumm ISAAC Comment:Testing performed by : [address] [address] Monocyte abs 0.40 0.20 - 0.80 K/cumm ISAAC Comment:Testing performed by : [address] [address] Eosinophil abs 0.03 0.00 - 0.50 K/cumm ISAAC Comment:Testing performed by : [address] [place] [address] Basophil abs 0.01 0.00 - 0.10 K/cumm ISAAC Comment:Testing performed by : [address] [address] Neutrophil pct 22.6 % [facility] Comment: Interpretive Data Percent cell count reference ranges are not reported, since discordance with absolute values may lead to misinterpretation of CBC data. Current Interpretive Data was last revised on 2018. Testing performed by: [address] [address] Imm gran pct 1.2 % [facility] Comment: Interpretive Data Percent cell count reference ranges are not reported, since discordance with absolute values may lead to misinterpretation of CBC data. Current Interpretive Data was last revised on 2018. Testing performed by: [address] [address] Lymphocyte pct 23.8 % [facility] Comment: Interpretive Data Percent cell count reference ranges are not reported, since discordance with absolute values may lead to misinterpretation of CBC data. Current Interpretive Data was last revised on 2018. Testing performed by: [address] [address] Monocyte pct 47.6 % [facility] Comment: Interpretive Data Percent cell count reference ranges are not reported, since discordance with absolute values may lead to misinterpretation of CBC data. Current Interpretive Data was last revised on 2018. Testing performed by: [address] [address] Eosinophil pct 3.6 % [facility] Comment: Interpretive Data Percent cell count reference ranges are not reported, since discordance with absolute values may lead to misinterpretation of CBC data. Current Interpretive Data was last revised on 2018. Testing performed by: [address] [address] Basophil pct 1.2 % [facility] Comment: Interpretive Data Percent cell count reference ranges are not reported, since discordance with absolute values may lead to misinterpretation of CBC data. Current Interpretive Data was last revised on 2018. Testing performed by: [address] [address] Blood 02/23/2025 9:31 AM CDT 02/23/2025 9:46 AM CDT Bianca Hunter MD LAB BLOOD ORDERABLES Final Result [facility] 3768 [facility] Department [place] [address] * (ABNORMAL) CBC with auto differential (02/23/2025 9:31 AM CDT) WBC 0.84(C) 3.80 - 9.90 K/cumm Comment: This result has been called to Meme Dean RN Epic Secure Chat by [id number] on 02/23/2025 09:58:21, and has been read back. Testing performed by: [address] [address] Hgb 9.0(L) 13.0 - 17.5 g/dL ISAAC Comment:Testing performed by : [address] [address] Hct 28.2(L) 38.9 - 50.3 % ISAAC Comment:Testing performed by : [address] [address] Plt 164 150 - 400 K/cumm ISAAC Comment:Testing performed by : [address] [address] MPV 9.3 9.1 - 12.3 fL ISAAC Comment:Testing performed by : [address] [address] RBC 3.14(L) 4.30 - 5.80 M/cumm ISAAC Comment:Testing performed by : [address] [address] MCV 89.8 81.3 - 96.4 fL ISAAC SERNA Comment:Testing performed by : [address] [address] MCH 28.7 27.1 - 33.3 pg ISAAC SERNA Comment:Testing performed by : [address] [address] MCHC 31.9(L) 32.3 - 35.7 g/dL ISAAC Comment:Testing performed by : [address] [address] RDW CV 18.1(H) 11.1 - 14.9 % ISAAC Comment:Testing performed by : [address] [address] RDW SD 57.3(H) 35.7 - 48.1 fL ISAAC Comment:Testing performed by : [address] [address] NRBC abs 0.00 0.00 - 0.01 K/cumm ISAAC Comment:Testing performed by : [address] [address] ANC Prelim 0.19(L) 1.50 - 6.50 K/cumm ISAAC Comment: Interpretive Data The rapid ANC is a preliminary automated count and may vary from the final ANC (Neut Abs) reported in the WBC differential that follows. Current interpretive data was last revised 2025. Testing performed by: [address] [address] Morphologic Screen Results confirmed by manual morphology review. ISAAC Comment:Testing performed by : [address] [address] Blood 02/23/2025 9:31 AM CDT 02/23/2025 9:46 AM CDT us Bianca Hunter MD LAB BLOOD ORDERABLES Final Result ISAAC 8169 [facility] Department [place] [address] * (ABNORMAL) Protime-INR (02/23/2025 9:31 AM CDT) PT 49.1(H) 12.0 - 14.6 sec Comment: Ref Range High Testing performed by: [address] [address] INR 5.5(C) 0.9 - 1.2 ISAAC Comment: Ref Range High Critical value. Results called to and read back by: Critical Result called to and read back by Meme Dean RN Epic Secure Chat, DATE: 2025-02-23 11:55:31 BY: [id number] Interpretive data Oral anticoagulant therapeutic ranges: Venous thromboembolism prophylaxis or treatment: 2.0-3.0 CARDIOLOGY Standard range: 2.0-3.0 High-intensity range: 2.5-3.5 Refer to indication-specific guidelines for appropriate target ranges for prosthetic heart valve replacement. Current interpretive data was last revised on 2019. Testing performed by: [address] [address] Blood 02/23/2025 9:31 AM CDT 02/23/2025 11:32 AM CDT Bianca Hunter MD LAB BLOOD ORDERABLES Final Result ISAAC 4509 [facility] Department [place] [address] * (ABNORMAL) Comprehensive metabolic panel (02/23/2025 9:31 AM CDT) Sodium 142 135 - 145 mmol/L Comment:Testing performed by : [address] [address] Potassium, pl 3.7 3.3 - 4.9 mmol/L ISAAC Comment:Testing performed by : [address] [address] Chloride 109 97 - 110 mmol/L ISAAC Comment:Testing performed by : [address] [address] CO2 22 22 - 32 mmol/L ISAAC Comment:Testing performed by : [address] [address] Anion gap 11 2 - 15 mmol/L ISAAC Comment:Testing performed by : [address] [address] BUN 15 6 - 25 mg/dL ISAAC Comment:Testing performed by : [address] [address] Creatinine 1.20 0.80 - 1.30 mg/dL ISAAC Comment:Testing performed by : [address] [address] Glucose 102 70 - 199 mg/dL [facility] Comment: Interpretive Data Fasting glucose >/= 126 [...] was last revised 2022. Testing performed by: [address] [address] Calcium 8.6 8.5 - 10.3 mg/dL [facility] Comment:Testing performed by : [address] [address] Bilirubin, total 0.4 0.1 - 1.2 mg/dL [facility] Comment:Testing performed by : [address] [address] Protein, pl 5.8(L) 6.5 - 8.5 g/dL [facility] Comment:Testing performed by : [address] [address] Albumin 3.2(L) 3.5 - 5.0 g/dL [facility] Comment:Testing performed by : [address] [address] Alk phos 58 40 - 130 Units/L ISAAC Comment:Testing performed by : [address] [address] ALT 11 7 - 55 Units/L ISAAC Comment:Testing performed by : [address] [address] AST 16 10 - 50 Units/L ISAAC Comment:Testing performed by : [facility], [address] [place] [address]., [address] Blood 02/23/2025 9:31 AM CDT 02/23/2025 9:46 AM CDT us Bianca Hunter MD LAB BLOOD ORDERABLES Final Result Performing Organization Address City/[facility]/ZIP Co de Phone Number ISAAC 7224 [facility] Department [place] [address] * RAD ONC ARIA SESSION SUMMARY (02/22/2025 [...] ORD ERABLES Final Result Performing Organization Address [facility] [[email or web address]] Co de Phone Number ARIA * RAD [...] DION * RAD ONC ARIA SESSION SUMMARY (02/20/2025 [...] ORD ERABLES Final Result Performing Organization Address [facility] [[email or web address]] Co de Phone Number DION Tyson RAD ONC ARIA SESSION SUMMARY (02/17/2025 11:23 [...] ONCOLOGY ORD ERABLES Final Result DION * Transfuse RBC (02/16/2025 2:15 PM [...] Units requested 1 Comment:Testing performed by : [facility], [address] [place] [address]., [address] Units requested Ready [facility] Comment:Testing performed by : [facility], [address] [place] [address]., [address] Unit Number [id number] Product code [id number] [facility] Blood Expiration Date [facility] Product Blood Type (for scanning) 6200 [facility] Product Blood Type APOS [facility] Dispense Status DISPENSED [facility] Blood 02/15/2025 1:40 PM CDT 02/15/2025 1:40 PM CDT Bianca Hunter MD BLOOD BANK PRODUCT O RDERABLES Final Result ISAAC 5891 [facility] Department [place] [address] * Blood smear review (02/15/2025 12:27 PM CDT) RBC morphology Consistent with RBC Indicies Comment:Testing performed by : [facility], [address] [place] [address]., [address] Platelet estimate Adequate ISAAC DAPHNE Comment:Testing performed by : [facility], [address] [place] [address]., [address] Blood 02/15/2025 12:2 7 PM CDT 02/15/2025 12:29 PM CDT us Nena Cano NP LAB BLOOD ORDERABLES Final Result Performing Organization Address [facility] [[email or web address]] Co de Phone Number ISAAC [facility] Department [place] [address] * (ABNORMAL) eGFR (02/15/2025 12:27 PM CDT) Pathologist [facility] eGFR 52(L) >=60 mL/min/1. 73 m2 Comment: [...] was last reviewed 2021. Testing performed by: [facility], [address] [place] [address]., [address] Blood 02/15/2025 12:2 7 PM CDT 02/15/2025 12:29 PM CDT us Bianca Hunter MD LAB BLOOD ORDERABLES Final Result ISAAC 4500 [facility] Department [place] [address] * (ABNORMAL) Differential, auto (02/15/2025 12:27 PM CDT) Neutrophil abs 0.66(L) 1.50 - 6.50 K/cumm Comment:Testing performed by : [address], [place]., [address] Imm gran abs 0.13(H) 0.00 - 0.10 K/cumm ISAAC Comment:Testing performed by : [address], [place]., [address] Lymphocyte abs 0.03(L) 0.80 - 3.30 K/cumm ISAAC Comment:Testing performed by : [address], [place]., [address] Monocyte abs 0.21 0.20 - 0.80 K/cumm ISAAC Comment:Testing performed by : [address] [address] Eosinophil abs 0.04 0.00 - 0.50 K/cumm ISAAC Comment:Testing performed by : [address] [address] Basophil abs 0.01 0.00 - 0.10 K/cumm ISAAC Comment:Testing performed by : [address] [address] Neutrophil pct 61.2 % ISAAC Comment: Interpretive Data Percent cell count reference ranges are not reported, since discordance with absolute values may lead to misinterpretation of CBC data. Current Interpretive Data was last revised on 2018. Testing performed by: [address] [address] Imm gran pct 12.0 % ISAAC Comment: Interpretive Data Percent cell count reference ranges are not reported, since discordance with absolute values may lead to misinterpretation of CBC data. Current Interpretive Data was last revised on 2018. Testing performed by: [address] [address] Lymphocyte pct 2.8 % ISAAC Comment: Interpretive Data Percent cell count reference ranges are not reported, since discordance with absolute values may lead to misinterpretation of CBC data. Current Interpretive Data was last revised on 2018. Testing performed by: [address] [address] Monocyte pct 19.4 % [facility] Comment: Interpretive Data Percent cell count reference ranges are not reported, since discordance with absolute values may lead to misinterpretation of CBC data. Current Interpretive Data was last revised on 2018. Testing performed by: [address] [address] Eosinophil pct 3.7 % ISAAC Comment: Interpretive Data Percent cell count reference ranges are not reported, since discordance with absolute values may lead to misinterpretation of CBC data. Current Interpretive Data was last revised on 2018. Testing performed by: [address] [address] Basophil pct 0.9 % ISAAC Comment: Interpretive Data Percent cell count reference ranges are not reported, since discordance with absolute values may lead to misinterpretation of CBC data. Current Interpretive Data was last revised on 2018. Testing performed by: [address] [address] Blood 02/15/2025 12:2 7 PM CDT 02/15/2025 12:29 PM CDT Nena Cano AERODYNAMICS PROFESSOR LAB BLOOD ORDERABLES Final Result Performing Organization Address City/State/[facility] [[email or web address]] Co de Phone Number [facility] 4020 [facility] [place] [address] * (ABNORMAL) Iron profile w/ IBC (02/15/2025 12:27 PM CDT) Iron 43(L) 50 - 150 mcg/dL Comment:Testing performed by : [address] [address] TIBC 208(L) 250 - 400 mcg/dL ISAAC Comment:Testing performed by : [address] [address] Transferrin saturation 21 20 - 50 % ISAAC Comment:Testing performed by : [address] [address] Blood 02/15/2025 12:2 7 PM CDT 02/15/2025 1:39 PM CDT Nena Mamta Jerome AERODYNAMICS PROFESSOR LAB BLOOD ORDERABLES Final Result Performing Organization Address City/State/[facility] [[email or web address]] Co de Phone Number ISAAC 1267 [facility] Department [place] [address] * (ABNORMAL) CBC with auto differential (02/15/2025 12:27 PM CDT) WBC 1.08(L) 3.80 - 9.90 K/cumm Comment:Testing performed by : [address] [address] Hgb 8.8(L) 13.0 - 17.5 g/dL ISAAC Comment:Testing performed by : [address] [address] Hct 27.1(L) 38.9 - 50.3 % ISAAC Comment:Testing performed by : [address] [address] Plt 136(L) 150 - 400 K/cumm ISAAC Comment:Testing performed by : [address] [address] MPV 9.2 9.1 - 12.3 fL ISAAC Comment:Testing performed by : [address] [address] RBC 3.00(L) 4.30 - 5.80 M/cumm ISAAC Comment:Testing performed by : [address] [address] MCV 90.3 81.3 - 96.4 fL ISAAC Comment:Testing performed by : [address] [address] MCH 29.3 27.1 - 33.3 pg ISAAC SERNA Comment:Testing performed by : [address] [address] MCHC 32.5 32.3 - 35.7 g/dL ISAAC Comment:Testing performed by : [address] [address] RDW CV 17.4(H) 11.1 - 14.9 % ISAAC Comment:Testing performed by : [address] [address] RDW SD 54.7(H) 35.7 - 48.1 fL ISAAC Comment:Testing performed by : [address] [address] NRBC abs 0.00 0.00 - 0.01 K/cumm ISAAC Comment:Testing performed by : [address] [address] ANC Prelim 0.66(L) 1.50 - 6.50 K/cumm ISAAC Comment: Interpretive Data The rapid ANC is a preliminary automated count and may vary from the final ANC (Neut Abs) reported in the WBC differential that follows. Current interpretive data was last revised 2025. Testing performed by: [address] [address] Blood 02/15/2025 12:2 7 PM CDT 02/15/2025 12:29 PM CDT Nena Cano AERODYNAMICS PROFESSOR LAB BLOOD ORDERABLES Final Result ISAAC 2973 [facility] [place] [address] * ABO/Rh (02/15/2025 12:27 PM CDT) ABO/Rh A Positive Comment:Testing performed by : [address] [address] Blood 02/15/2025 12:2 7 PM CDT 02/15/2025 1:39 PM CDT Narrative ISAAC - 02/15/2025 2:02 PM CDT Has the patient had Daratumumab or Isatuximab in the past 6 months?->Unknown Nena Cano NP LAB BLOOD BANK TEST ORDERAB LES Final Result Performing Organization Address City/[facility] [[email or web address]] Co de Phone Number [address] [facility] [place] [address] * (ABNORMAL) Reticulocyte Count (02/15/2025 12:27 PM CDT) [facility] Retics, absolute 17(L) 20 - 87 K/cumm Comment:Testing performed by : [address] [address] Retics 0.6 0.4 - 2.9 % [facility] Comment:Testing performed by : [address] [address] Reticulocyte Hgb 36.9 30.5 - 38.0 pg ISAAC Comment:Testing performed by : [address] [address] Blood 02/15/2025 12:2 7 PM CDT 02/15/2025 12:29 PM CDT Nena Cano NP LAB BLOOD ORDERABLES Final Result Performing Organization Address [facility] [[email or web address]] Co de Phone Number [address] [facility] [place] [address] * Crossmatch (02/15/2025 12:27 PM CDT) [facility] Crossmatch Compatible [facility] Unit number for crossmatch [id number] [facility] Blood 02/15/2025 12:2 7 PM CDT 02/15/2025 1:39 PM CDT Bianca Hunter MD LAB BLOOD BANK TEST ORDERABLES Final Result Performing Organization Address City/[facility] [[email or web address]] Co de Phone Number [address] [facility] [place] [address] * Antibody screen (02/15/2025 12:27 PM CDT) [facility] Divina, indirect, Gel Interpretation Negative ABSC Comment:Testing performed by : [address] [address] Blood 02/15/2025 12:2 7 PM CDT 02/15/2025 1:39 PM CDT Narrative ISAAC - 02/15/2025 2:15 PM CDT Has the patient had Daratumumab or Isatuximab in the past 6 months?->Unknown Nena Cano AERODYNAMICS PROFESSOR LAB BLOOD BANK TEST ORDERAB LES Final Result [address] [employer] of [facility] [place] [address] * Ferritin (02/15/2025 12:27 PM CDT) [facility] Ferritin 255 30 - 400 ng/mL Comment:Testing performed by : [address] [address] Blood 02/15/2025 12:2 7 PM CDT 02/15/2025 1:39 PM CDT Nena Cano LAB BLOOD ORDERABLES Final Result [address] [place] [address] * (ABNORMAL) Comprehensive metabolic panel (02/15/2025 12:27 PM CDT) [facility] Sodium 137 135 - 145 mmol/L Comment:Testing performed by : [address] [address] Potassium, pl 4.2 3.3 - 4.9 mmol/L ISAAC Comment:Testing performed by : [address] [id number] Chloride 106 97 - 110 mmol/L ISAAC Comment:Testing performed by : [address] [address] CO2 22 22 - 32 mmol/L ISAAC Comment:Testing performed by : [address] [address] Anion gap 9 2 - 15 mmol/L ISAAC Comment:Testing performed by : [address] [address] BUN 13 6 - 25 mg/dL ISAAC Comment:Testing performed by : [address] [address] Creatinine 1.40(H) 0.80 - 1.30 mg/dL ISAAC Comment:Testing performed by : [address] [address] Glucose 108 70 - 199 mg/dL ISAAC [...] was last revised 2022. Testing performed by: [address] [address] Calcium 8.8 8.5 - 10.3 mg/dL ISAAC Comment:Testing performed by : [address] [address] Bilirubin, total 0.3 0.1 - 1.2 mg/dL ISAAC Comment:Testing performed by : [address] [address] Protein, pl 6.1(L) 6.5 - 8.5 g/dL ISAAC Comment:Testing performed by : [address] [address] Albumin 4.0 3.5 - 5.0 g/dL ISAAC Comment:Testing performed by : [address] [address] Alk phos 61 40 - 130 Units/L ISAAC SERNA Comment:Testing performed by : [facility], [address] [place] [address]., [address] ALT 14 7 - 55 Units/L ISAAC SERNA Comment:Testing performed by : [address] [address] AST 20 10 - 50 Units/L ISAAC SERNA Comment:Testing performed by : [facility], [address] [place] [address]., [address] Blood 02/15/2025 12:2 7 PM CDT 02/15/2025 12:29 PM CDT us Bianca Hunter MD LAB BLOOD ORDERABLES Final Result ISAAC [address] [facility] [place] [address] * RAD ONC ARIA SESSION SUMMARY (02/15/2025 11:48 AM CDT) Course Name [id number] ARIA [...] ORD ERABLES Final Result Performing Organization Address City/[facility]/ZIP Co de Phone Number ARIA * [...] ORD ERABLES Final Result Performing Organization Address [facility] [[email or web address]] Co de Phone Number DION * RAD [...] ONCOLOGY ORD ERABLES Final Result ARIA * CT Chest Abdomen Pelvis W Contrast (12/13/2024 7:09 AM MISSION COORDINATOR) Anatomical Region Laterality Modality Body N/A Computed Tomogra phy 12/13/2024 7:26 AM MISSION COORDINATOR Impressions 12/13/2024 7:26 AM MISSION COORDINATOR 1. Nondistended esophagus. No discrete esophageal lesion identified to correspond to known malignancy. 2. No evidence of metastatic disease in the chest, abdomen, and pelvis. Electronically signed by: Courtney Johnson M.D. Narrative 12/13/2024 7:26 AM MISSION COORDINATOR EXAMINATION: Computed tomography of the chest, abdomen [...] Res ult * Colonoscopy (11/17/2024 9:34 AM MISSION COORDINATOR) Anatomical Region Laterality Modality Other Narrative Procedure Note Lucio Rosas MD - 11/17/2024 9:34 AM CST [facility] GI ENDOSCOPY Patient Name: Marshall Olson Procedure Date: 11/17/2024 9:34 AM Date of : 1950 Admit Type: Outpatient Age: 74 Gender: Male Attending MD: Lucio Roass M.D. Room: [facility] ENDOSCOPY ROOM 03 Note Status: Finalized [...] The scope was passed under direct vision.The [id number]-[id number] colonoscope was introduced through theanus and advanced to the cecum, identified byappendiceal orifice and ileocecal valve. The scope was passed under direct vision. The [id number]-[id number] colonoscope was introduced through the and advanced [...] On: 11/17/2024 9:34 AM Recognized by the [employer] for promoting quality in endoscopy Lucio Rosas MD ENDOSCOPY PROCEDURES Final Resul t from Last 3 Months or Most Recently Relevant to Health Maintenance Insurance [facility] MEDICARE ADVANTAGE MEDICARE MEDICARE Advance Directives For more information, please contact: [phone] * Full Code (Latest Code Status on File) Date Activated Date Inactivated Comments 01/11/2025 10:34 AM 01/12/2025 5:08 AM * Full Code Date Activated Date Inactivated Comments 12/13/2024 8:18 AM 12/13/2024 5:22 PM Care Teams Belt Operator Relationship Specialty [place] [address] [place] [address] PCP - General Internal Medicine 01/04/25 Lucio Rosas MD [address] [place] [address] Consulting Physician Gastroenterology 11/28/24 Bianca Hunter MD [address] [place] [address] Medical Oncologist/Flat Hammerer Medical Oncology 12/07/24 Hero Pinedo MD [address] [place] [address] Radiation Oncologist Radiation Oncology 12/28/24 Lon Tomas MD [address] [place] [address] Consulting Physician Urology 01/04/25 Jaycee Teresa MD [address] [place] [address] Consulting Physician Cardiology 01/09/25
--- OUTSIDE RECORDS SUMMARY | 2025-05-12 11:52 | XMS_ITS ---
Author Organization [facility] Address [address] [place] [address] Care Team Providers Care Shield Operator Name Role Phone Lucio Rosas MD Unavailable Bianca Hunter MD Unavailable [phone] Hero Pinedo MD Unavailable [phone] Jas Alcala MD Primary Care Provider [phone] Lon Tomas MD Unavailable [phone] Jaycee Teresa MD Unavailable [phone] Active Problems Patient Care Coordination No te [...] differentiated adenocarcinoma. 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 On 12/13/2024 the [...] He also has a history of an [facility] and PE. 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 -Pathology discuss in detail and all questions were answered -Refer for EUS -Refer to Oncology and Cardiothoracic surgery Miller's esophagus with high grade dysplasia Assessment & Plan (11/25/2024 9:41 AM SALES SUPPORT COORDINATOR): EGD September 2024 with irregular Z-line and gastric ulcers. Pathology with Barretts esophagus, indefinite for dysplasia. Repeat EGD November 2024 with Barretts esophagus, pathology with high-grade dysplasia. -Continue pantoprazole 40 mg p.o. b.i.d. History of colon polyps 11/25/2024 Assessment & Plan (11/25/2024 9:42 AM SALES SUPPORT COORDINATOR): Colonoscopy November 2024 with multiple tubular adenomas. -Repeat colonoscopy November 2027 Gastric ulcer 09/23/2024 Anemia due to blood loss 09/23/2024 Rectal bleeding 08/22/2024 Radiation proctitis 08/22/2024 Assessment & Plan (11/25/2024 9:41 AM SALES SUPPORT COORDINATOR): Colonoscopy November 2024 with severe radiation proctitis status post APC. -Consider flex sig with APC, patient advised to call office if rectal bleeding gets worse Eosinophilia 02/22/2024 Iron deficiency anemia, unspecified 02/22/2024 Anemia 02/22/2024 VT (ventricular tachycardia) 05/09/2022 Overview (05/09/2022): Added automatically from request for surgery [id number] Lower urinary tract symptoms (LUTS) 05/24/2020 Malignant [...] ESOPH 01/19/2025 - 02/22/2025 180 25 / ,500 Reference Points Delivered [id number] 02/23/2025 - 02/27/2025 540 [id number] 01/19/2025 - 02/22/2025 4,500 Lifetime Dose Tracking * Chemical Lifetime Dose Automatic Entry Manual Entr y Fluoro Time 0.3 minutes 0.3 minutes 0 minutes Air kerma at the reference point (Ka,r) 2 mGy 2 mGy 0 mGy DLP 1,363 mGycm 1,363 mGycm 0 mGycm
--- OUTSIDE RECORDS SUMMARY | 2025-05-12 11:52 | XMS_ITS | Clinical Summary ---
Author Organization [facility] Address [address] [place] [address] Care Team Providers Care Community Outreach Manager Name Role Phone Jas Alcala MD Primary Care Provider [phone] Allergies Active Allergy Reactions Criticality Noted Date [...] (06/17/2022): Added automatically from request for surgery [id number] Family History Medical History Relation Comments Cancer [...] to complete this topic Insurance Care Teams Community Outreach Manager Relationship Specialty Start Date End Date Jas Alcala MD PCP - General INTERNAL MEDICINE 02/11/22
--- OUTSIDE RECORDS SUMMARY | 2025-05-12 11:52 | XMS_ITS | Data Portability ---
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 Or Repairer BUBBA ALCALA Primary Care Provider Assessment Encounter Date Assessment Date Assessment LastModified by Organization Details LastModified Time 04/05/2024 04/05/2024 we will continue current therapy blood work is being done currently for his anemia by Hematology cardiovascular-wi se does appear to be stable does have a history of prostate into issues I believe prostate cancer as well and he is following up with that service he will follow up with me in 3 months [email or web address] Not available 05/01/2024 22:14:08 07/12/2024 07/12/2024 flu shot continu e current therapy all questions have been answered follow up in 4 months [email or web address] Not available 07/30/2024 21:44:40 12/08/2024 12/08/2024 GI [...] has been cleared to have the endoscopies [email or web address] Not available 12/08/2024 21:25:29 03/16/2025 03/16/2025 We will continue current therapy start 2.5 mg Coumadin daily every other day start March 17 PT INR this coming Thursday diagnosis and assessment and plan have been discussed we will see me back in 6 weeks other medicines continue [email or web address] Not available 03/16/2025 14:49:21 04/27/2025 04/27/2025 Health risk assessments reviewed diagnosis and assessment and plan reviewed we will continue current therapy all questions have been answered healthy lifestyle care instructions maintained on medicines for V-tach inflammatory bowel disease appears to be stable all questions have been answered we will move forward with continuing current therapy follow up with me in 3 months Not available 04/29/2025 16:19:08 Plan of Treatment Reminders Order Date Submit Date Provider Last Modified By Organization Details Last Modified Time Details Appointments ANY 15 025 02:15PM Bubba Alcala MD Not available Not available Not available Lab None record ed. Referral None record ed. Procedures None record ed. Surgeries None record ed. Imaging None record ed. Medication Orders None record ed. Patient TargetsNo targets recorded. Patient Instructions Encounter Date Encounter Id Patient Instructions Last Modified By Organization Details Last Modified Time 03/16/2025 [id number] A healthy lifestyle: care instructions [email or web address] Not available 03/16/2025 14:49:56 04/27/2025 [id number] advance care planning: care instructions Not available 04/29/2025 16:19:45 preventing falls : care instructions [email or web address] Not available 04/29/2025 16:19:45 Quitting Tobacco : Care Instructions [email or web address] Not available 04/29/2025 16:19:45 Medicare [facility] Preventive Checklist [email or web address] Not available 04/29/2025 16:19:45 eating healthy foods: care instructions [email or web address] Not available 04/29/2025 16:19:45 AD8 Dementia Screening Interview [email or web address] Not available 04/29/2025 16:19:45 A healthy lifestyle: care instructions [email or web address] Not available 04/27/2025 16:06:32 Reason for Referral None Reported. Results Created Date Observation Date Name Description Value Unit Range Abnormal Flag Note LastModifiedBy Organization Detail LastModifiedTime 12/19/1912/20/2024 BASIC METAB OLIC PANEL (7) glucose 122 mg/dL 70-99 above high normal Not Available [facility] [address] [place], [address], 12/20/2024 09:08:30 12/19/1912/20/2024 BASIC METAB OLIC PANEL (7) BUN 13 mg/dL 8-27 Not Available [facility] ([facility] [address] [place], [address], 12/20/2024 09:08:30 12/19/1912/20/2024 BASIC METAB OLIC PANEL (7) creatinine 1.81 mg/dL 0.76-1 .27 above high normal Not Available [facility] ([facility]) [address] [place], [address], 12/20/2024 09:08:30 12/19/1912/20/2024 BASIC METAB OLIC PANEL (7) eGFR 39 mL/mi n/1.7 3 >59 below low normal Not Available [facility] ([facility]) [address] [place], [address], 12/20/2024 09:08:30 12/19/1912/20/2024 BASIC METAB OLIC PANEL (7) BUN/creatini ne ratio 7 10-24 below low normal Not Available [facility] ([facility]) [address] [place], [address], 12/20/2024 09:08:30 12/19/19 25 12/20/2024 BASIC METAB OLIC PANEL (7) sodium 139 mmol/ L 134-14 4 Not Available [facility] ([facility] [address] [place], [address], 12/20/2024 09:08:30 12/19/19 25 12/20/2024 BASIC METAB OLIC PANEL (7) potassium 4.5 mmol/ L 3.5-5. 2 Not Available [facility] ([facility] [address] [place], [address], 12/20/2024 09:08:30 12/19/1912/20/2024 BASIC METAB OLIC PANEL (7) chloride 108 mmol/ L 96-106 above high normal Not Available [facility] [address] [place], [address], 12/20/2024 09:08:30 12/19/1912/20/2024 BASIC METAB OLIC PANEL (7) carbon dioxide, total 19 mmol/ L 20-29 below low normal Not Available [facility] ([facility] [address] [place], [address], 12/20/2024 09:08:30 12/19/1912/20/2024 PROTH ROMBI N TIME (PT) INR 1.3 0.9-1. 2 above high normal Refer ence inter luis is for non-a ntico agula toni patie nts. Sugge sted INR thera peuti c range for Vitam in K antag onist thera py: Stand christiano Dose (mode rate inten sity thera peuti c range ): 2.0 - 3.0 Highe r inten sity thera peuti c range 2.5 - 3.5 Not Available [facility] ([facility]) [address] [place], [address], 12/20/2024 09:08:32 12/19/19 25 12/20/2024 PROTH ROMBI N TIME (PT) prothrombin time 13.6 sec 9.1-12 .0 above high normal Not Available [facility] ([facility] [address] [place], [address], 12/20/2024 09:08:32 12/19/1912/20/2024 CBC, PLATE LET, NO DIFFE RENTI AL WBC 4.6 x10e3 /uL 3.4-10 .8 Not Available [facility] [address] [place], [address], 12/20/2024 09:08:33 12/19/1912/20/2024 CBC, PLATE LET, NO DIFFE RENTI AL RBC 3.10 x10e6 /uL 4.14-5 .80 below low normal Not Available [facility] [address] [place], [address], 12/20/2024 09:08:33 12/19/1912/20/2024 CBC, PLATE LET, NO DIFFE RENTI AL hemoglobin 9.1 g/dL 13.0-1 7.7 below low normal Not Available [facility]) [address] [place], [address], 12/20/2024 09:08:33 12/19/1912/20/2024 CBC, PLATE LET, NO DIFFE RENTI AL hematocrit 30.5 % 37.5-5 1.0 below low normal Not Available [facility]) [address] [place], [address], 12/20/2024 09:08:33 12/19/1912/20/2024 CBC, PLATE LET, NO DIFFE RENTI AL MCV 98 fL 79-97 above high normal Not Available [facility]) [address] [place], [address], 12/20/2024 09:08:33 12/19/19 25 12/20/2024 CBC, PLATE LET, NO DIFFE RENTI AL MCH 29.4 pg 26.6-3 3.0 Not Available [facility]) [address] [facility] [address], [place], [address], 12/20/2024 09:08:33 12/19/19 25 12/20/2024 CBC, PLATE LET, NO DIFFE RENTI AL MCHC 29.8 g/dL 31.5-3 5.7 below low normal Not Available [facility]) [address] [facility] [address], [place], [address], 12/20/2024 09:08:33 12/19/19 25 12/20/2024 CBC, PLATE LET, NO DIFFE RENTI AL RDW 14.6 % 11.6-1 5.4 Not Available [facility]) [address] [facility], [place], [address], 12/20/2024 09:08:33 12/19/19 25 12/20/2024 CBC, PLATE LET, NO DIFFE RENTI AL platelets 300 x10e3 /uL 150-45 0 Not Available [facility]) [address] [facility] [address], [place], [address], 12/20/2024 09:08:33 01/07/20 25 01/06/2025 cardi ac stres s test No observ ation record ed. [address], [address], 01/18/2025 17:00:56 01/19/20 25 01/06/2025 adeno sine stres s test (PROC ) No observ ation record ed. [address], [address], 01/19/2025 17:33:35 02/03/20 25 01/05/2025 PFT, compl ete No observ ation record ed. [address] [place], [address], 02/02/2025 17:00:46 05/02/20 25 12/15/2022 US, duple x, aorta No observ ation record ed. rachel Rooney MD [address], [place], [address], 05/02/2025 11:39:35 05/02/20 25 04/01/2022 PET, skull base to mid-t high No observ ation record ed. [email or web address] Not Available 2024 10:53:14 05/02/20 25 08/06/2021 CT, abdom en + pelvi s, w/o contr ast No observ ation record ed. [email or web address] Not Available 2024 10:52:59 Result Notes None recorded. Problems Name Problem SNOMED Code Status Onset Date Resolution Date Notes Provider Name and Address Organization Details Recorded Time Gastroesophage al reflux disease without esophagitis 675850075 Active 2023 Bubba Alcala MD Attn: Fred daly,[address] [facility], [place], [address], [place] - [facility] 4 22:09:46 Dyslipidemia 599490794 Active 2023 Bubba Alcala MD Attn: Fred g,[address] [facility], [place], [address], [place] [facility] 4 22:09:47 Chronic anemia 197458225 Active 2023 Bubba Alcala MD Attn: Fred g,[address] [facility], [place], [address], [place] [facility] 4 22:09:50 Inflammatory bowel disease 65627528 Active 2023 Bubba Alcala MD Attn: Fred g,[address] [facility], [place], [address], [place] [facility] 4 22:09:52 History of pulmonary embolus 108495635 Active 2023 Bubba Alcala MD Attn: Fred daly,[address] [facility], [place], [address], [place] - [facility] 4 22:12:55 History of malignant neoplasm of prostate 854698831 Active 2023 Bubba Alcala MD Attn: Fred daly,[address] [facility], [place], [address], [place] - [facility] 4 22:14:37 Cervical spondylosis 025578286 Active 2023 Bubba Alcala MD Attn: Fred daly,[address] [facility], [place], [address], [place] - [facility] 4 21:43:45 Problem Notes None recorded. Procedures Surgical History Date Name Laterality Status Provider Name and Address Organization Details Recorded Time colonoscopy completed Scarlett Louis MA [place] 12/08/2024 16:02:50 endoscopy completed Scarlett Louis MA [place] [facility] 12/08/2024 16:02:58 Imaging Results None recorded. Procedure Notes None recorded. Medical Equipment None Reported. Allergies Allergen ID Allergen Name Allergen Category Reaction Reaction Severity Criticality Documentation Date Start Date Code Code System Note Provider Name and Address Organization Details Recorded Time 078660 amoxicill in medicatio n hives Not available Not available 12/28/2023 723 RxNorm NORA Cadet, [place] - [facility] 4 16:18:47 569298 Farxiga medicatio n Not available Not available Not available 12/28/2023 59486 72 RxNorm peria nal rash NORA Cad[place] null, [place] - [facility] 4 16:19:36 561367 Celebrex medicatio n hives Not available Not available 12/28/2023 60488 7 RxNorm NORA [place], [place] [facility] 4 16:19:58 764866 Lyrica medicatio n Not available Not available Not available 12/28/2023 93459 1 RxNorm blurr y visio n NORA Cad[place] null, [place] - [facility] 4 16:20:09 Medications Name [...] completed Not Available Not Available Not Available ondansetron HCl 8 mg tablet TAKE 1 TABLET EVERY 8 HOURS NEEDED FOR NAUSEA AND VOMITING- USE IF PROCHLORP ERAZINE DOES NOT WORK 04/27 completed Not Available Not Available Not Available cyanocobala min (vit B-12) 1,000 mcg tablet TAKE 1 TABLET BY MOUTH EVERY DAY IN THE MORNING active Not Available Not Available No t Available warfarin 2.5 mg tablet Take 1 tablet every day by oral route. 04/05 completed Not Available Not Available Not Available prochlorper azine maleate 10 mg tablet TAKE 1 TABLET BY MORASHID ALBARADOERY 6 HOURS NEEDED FOR NAUSEA OR VOMITING. USE FIRST FOR NAUSEA 04/27 completed Not Available Not Available Not Available [...] TIMES A DAY BEFORE BREAKFAST AND DINNER. 04/27 completed Not Available Not Available Not Available triamcinolo ne acetonide 0.1 % topical ointment APPLY 1 GRAM TOPICALLY TO AFFECTED AREA TWICE A DAY FOR 15 DAYS 04/05 completed Not Available Not Available Not Available warfarin 5 mg tablet TAKE 1 TABLET BY MOUTH DAILY DIRECTED 2023 active Not Available Not Available Not Avai lable enoxaparin 150 mg/mL subcutaneou s syringe INJECT 130MG UNDER THE SKIN ONCE EACH MORNING 03/24 completed Not Available Not Available Not Available mexiletine 200 mg capsule active Not Available [...] PRN Not Available Not Available Not Available Lovenox 120 mg/0.8 mL subcutaneou s syringe INJECT 0.8ML SUBCUTANE OUSLY 05/05 THROUGH 05/09 EVERY MORNING.N ONE ON 05/10 DAY OF PROCEDURE RESUMED 0.8ML ON 05/11 AND 05/12 active Not Available Not Available Not Avai lable oxycodone 5 mg tablet TAKE 1 TABLET BY MOUTH EVERY 6 HOURS NEEDED FOR PAIN active Not Available Not Available No t Available solifenacin 5 mg tablet TAKE 1 TABLET BY MOUTH EVERYDAY AT BEDTIME 04/27 completed Not Available Not Available Not Available Farxiga 5 mg tablet TAKE 1 TABLET BY MOUTH EVERY DAY 12/28 completed Not Available Not Available Not Available Sutab 1.479-0.188 -0.225 gram tablet TAKE 12 TABLETS BY MOUTH 2 (TWO) TIMES A DAY TAKE DIRECTED BY GI OFFICE 04/27 completed Not Available Not Available Not Available Gemtesa 75 mg tablet Take 1 tablet every day by oral route. active Not Available Not Available No t Available Vitals Date Recorded Body height Body mass index (BMI) Body weight Oxygen saturation Oxygen saturation in Arterial blood by Pulse oximetry Heart rate Systolic And Diastolic Provider Name and Address Organization Details Last Updated DateTime 5 181.61 cm 38.8 kg/m2 612211. 69 g 97 % 97 % 64 /min 120/78 mm[Hg] Scarlett Louis MA [facility] 5 16:07:53 Date Recorded Body height Body mass index (BMI) Body weight Heart rate Oxygen saturation Oxygen saturation in Arterial blood by Pulse oximetry Systolic And Diastolic Provider Name and Address Organization Details Last Updated DateTime 5 181.61 cm 33.5 kg/m2 166421. 82 g 96 /min 97 % 97 % 110/78 mm[Hg] Scarlett Louis MA [facility] 5 14:20:07 Date Recorded Body height Body mass index (BMI) Body weight Heart rate Oxygen saturation Oxygen saturation in Arterial blood by Pulse oximetry Systolic And Diastolic Provider Name and Address Organization Details Last Updated DateTime 4 181.61 cm 39.5 kg/m2 321238. 45 g 64 /min 99 % 99 % 122/74 mm[Hg] Puja Beckwith MA [facility] 4 15:58:12 Date Recorded Body height Body mass index (BMI) Body weight Heart rate Oxygen saturation Oxygen saturation in Arterial blood by Pulse oximetry Systolic And Diastolic Provider Name and Address Organization Details Last Updated DateTime 5 181.61 cm 34.2 kg/m2 266113. 34 g 65 /min 99 % 99 % 120/72 mm[Hg] Milagro Tom MA [facility] 5 15:47:03 Date Recorded Body height Body mass index (BMI) Body weight Heart rate Oxygen saturation Oxygen saturation in Arterial blood by Pulse oximetry Systolic And Diastolic Provider Name and Address Organization Details Last Updated DateTime 4 181.61 cm 39.9 kg/m2 307111. 47 g 62 /min 99 % 99 % 126/68 mm[Hg] Sherine Hammonds MA [facility] 4 14:52:37 Social History Question Answer Notes LastModified by Organizat ion Details LastModified Time Tobacco Smoking Status Former Smoker Ingris Yost, RMA null, [place] 12/28/2023 16:20:38 Do You Have An Advance Directive? No Information not available 04/27/2025 Are You Blind Or Do You Have Difficulty Seeing? No Information not available 04/27/2025 What Is Your Level Of Caffeine Consumption? Moderate Information not available 04/27/2025 In The 14 Days Before Symptom Onset, Have You Had Close Contact With A Laboratory-confir med COVID-19 While That Case Was Ill? No Information not available 04/27/2025 In The 14 Days Before Symptom Onset, Have You Had Close Contact With A Person Who Is Under Investigation For COVID-19 While That Person Was Ill? No Information not available 04/27/2025 Have You Been To An Area Known To Be High Risk For COVID-19? No Information not available 04/27/2025 Are You Deaf Or Do You Have Serious Difficulty Hearing? No Information not available 04/27/2025 Are There Any Guns Present In Your Home? No Information not available 04/27/2025 What Was The Date Of Your Most Recent Tobacco Screening? 04/27/2025 Information not available 04/27/2025 What Is Your Current Pack Years? 30ormorepack years Information not available 12/28/2023 Do You Use Your Seat Belt Or Car Seat Routinely? Yes Information not available 04/27/2025 Do You Have Smoke And Carbon Monoxide Detectors In Your Home? Yes Information not available 04/27/2025 At What Age Did You Start Smoking Tobacco? 13 Information not available 12/28/2023 Do You Use Sunscreen Routinely? Yes Information not available 04/27/2025 Has Tobacco Cessation Counseling Been Provided? No Information not available 04/27/2025 How Many Years Have You Smoked Tobacco? 50 Quit 2019 Information not available 12/28/2023 Sex: Unknown Functional Status Question Answer Note LastModified by Organizat ion Details LastModified Time Do you use any illicit or recreational drugs? No Information not available 04/27/2025 Do you or have you ever used any other forms of tobacco or nicotine? No Information not available 04/27/2025 What is your level of alcohol consumption? None Information not available 04/27/2025 Are you able to care for yourself? Yes Information not available 04/27/2025 Mental Status None recorded. Family History Relationship [...] Skin Problems N Anemia Y Heart Attack (NM) Y Anxiety Disorder N Diabetes N Muscle, [...] Influenza, high-dose, quadrivalent, PF 3 completed [place] [facility] 11/17/2024 11:46:12 Influenza, high-dose, quadrivalent, PF 2 completed [place] Clar[place] [facility] 11/17/2024 11:46:12 Influenza, high-dose, quadrivalent, PF 1 completed [place] [facility] 11/17/2024 11:46:12 COVID-19, mRNA, LNP-S, PF, 100 mcg/0.5mL dose or 50 mcg/0.25mL dose 2 completed [place] [facility] 11/17/2024 11:46:12 COVID-19, mRNA, LNP-S, PF, 100 mcg/0.5mL dose or 50 mcg/0.25mL dose 1 completed [place] [facility] 11/17/2024 11:46:12 COVID-19, mRNA, LNP-S, PF, 100 mcg/0.5mL dose or 50 mcg/0.25mL dose 1 completed [place] [facility] 11/17/2024 11:46:12 COVID-19, mRNA, LNP-S, PF, 100 mcg/0.5mL dose or 50 mcg/0.25mL dose 1 completed [place] [facility] 11/17/2024 11:46:12 influenza, unspecified formulation 8 completed [place] [facility] 11/17/2024 11:46:12 influenza, unspecified formulation 4 completed [place] [facility] 11/17/2024 11:46:13 Influenza, high-dose, trivalent, PF 8 completed [place] [facility] 11/17/2024 11:46:13 Influenza, high-dose, trivalent, PF 9 completed [place] [facility] 11/17/2024 11:46:13 Influenza, high-dose, trivalent, PF 7 completed [place] [facility] 11/17/2024 11:46:13 Influenza, split virus, trivalent, preservative 3 completed [place] [facility] 11/17/2024 11:46:13 Influenza, split virus, quadrivalent, PF 5 completed [place] [facility] 11/17/2024 11:46:13 Pneumococcal conjugate PCV20, polysaccharide CWJ120 conjugate, adjuvant, PF 4 completed Bubba Alcala MD Attn: Accounting,[address] [place], [address], [facility] - [facility] 05/01/2024 22:07:26 Influenza, high-dose, trivalent, PF 4 completed Bubba Alcala MD Attn: Accounting,[address] , [place], [address], [facility] - [facility] 07/30/2024 21:41:48 Past Encounters Encounter ID Performer Location Encounter Start Date Encounter Closed Date Diagnosis/Indication Diagnosis SNOMED-CT Code Diagnosis ICD10 Code Diagnosis Note [id number] Bubba Alcala MD [facility] (Adult Med) [address] [place] [phone] 12/28/2023 15:33:31 12/28/2023 17:03:34 Proctitis 3887543 K62.89 Anticoagulant therapy 18 8021442 Z79.01 Hyperlipidemia 55910458 E78.5 Long-term drug therapy 035424256 Z79.899 Nonischemi c congestive cardiomyopathy 0454951887 04 I42.0 History of malignant neoplasm of prostate 996876322 Z85.46 Chronic ki dney disease stage 3 123667031 N18.30 Ventricula r tachycardia 59522674 I47.20 [id number] Bubba Alcala MD [facility] (Adult Med) [address] [place] [phone] 04/05/2024 15:47:26 04/05/2024 17:08:10 Administration of pneumococcal vaccine 51722741 Z23 Gastroesop hageal reflux disease without esophagitis 879596401 K21.9 Dyslipidemia 502961180 E 78.5 Chronic anemia 035828235 D64.9 Inflammato ry bowel disease 01078320 K52.9 History of pulmonary embolus 597562004 Z86.711 History of malignant neoplasm of prostate 503283742 Z85.46 [id number] Bubba Alcala MD [facility] (Adult Med) [address] [place] [id number] 07/12/2024 14:26:22 07/12/2024 15:52:19 Body mass index 30+ - obesity 990609068 Z68.39 BMI 39.9 Administra tion of influenza vaccine 15225308 Z23 Dyslipidemia 085237033 E 78.5 Chronic anemia 806859106 D64.9 Gastroesop hageal reflux disease without esophagitis 709378485 K21.9 Cervical spondylosis 387 210190 M47.965 [id number] Bubba Alcala MD [facility] [employer] [address] [place] [address] 12/08/2024 15:00:29 12/08/2024 16:45:43 Body mass index 30+ - obesity 254607144 Z68.39 BMI 39.9 Chronic anemia 175714498 D64.9 Gastroesop hageal reflux disease without esophagitis 243672597 K21.9 Dyslipidemia 598253014 E 78.5 Proctitis 9222995 K62.89 Anticoagulant therapy 18 3803973 Z79.01 Hyperlipidemia 18972723 E78.5 Long-term drug therapy 911245581 Z79.899 Nonischemi c congestive cardiomyopathy 8964540787 04 I42.0 History of malignant neoplasm of prostate 320928223 Z85.46 Chronic ki dney disease stage 3 203600004 N18.30 Ventricula r tachycardia 17834711 I47.20 History of pulmonary embolus 310437371 Z86.076 [id number] Bubba Alcala MD [facility] [employer] [address] [place] [address] 03/16/2025 14:02:27 03/16/2025 14:50:25 Body mass index 30+ - obesity 956797687 Z68.33 BMI 39.9 Obese class I 9069464020 41254 E66.811 BMI 39.9 Gastroesop hageal reflux disease without esophagitis 324595283 K21.9 Inflammato ry bowel disease 55514240 K52.9 Chronic anemia 322684676 D64.9 Cervical spondylosis 387 516392 M47.812 Dyslipidemia 130778682 E 78.5 History of pulmonary embolus 562722364 Z86.979 [id number] Bubba Alcala MD [facility] [employer] [address] [place] [address] 04/27/2025 15:01:15 04/27/2025 16:37:50 Body mass index 30+ - obesity 159437754 Z68.34 BMI 39.9 Obese class I 6978846953 81082 E66.811 BMI 39.9 Adult heal th examination 309026952 Z00.00 Health Risk Assessment collected and reviewed Chronic anemia 342006350 D64.9 History of pulmonary embolus 346078739 Z86.711 Gastroesop hageal reflux disease without esophagitis 425883093 K21.9 Inflammato ry bowel disease 08384577 K52.9 History of malignant neoplasm of prostate 039349043 Z85.46 Cervical spondylosis 387 077494 M47.812 Dyslipidemia 424817641 E 78.5 Health Concerns Section Related Observation LastModified by Organization Detai ls LastModified Time None Recorded Concern Status LastModified by Organization Details LastModified Time None Recorded Advance Directives Directive N: Payers Insurance Date Sequence Insurance Name Policy Number Policy Abbasi Covered Member ID Abbasi Member ID Guarantor Name 05/02/2025 1 [facility] (MEDICARE REPLACEMENT/A DVANTAGE - HMO) [id number] Marshall Olson [id number] Marshall Olson Notes Date Note Type Note Provider Name and Address Organization Details Recorded Time 04/05/2024 text/html 74-year-old foll ow up on [...] and neuropathic pain Bubba Alcala MD Attn: Accounting, [address] [place], [address], [facility] 05/01/2024 22:15:04 07/12/2024 text/html chronic anemia h e has does not have any symptoms at this time GERD no nausea no vomiting chronic neck pain has been stable dyslipidemia trying to watch his diet history of PE no cardiopulmonary symptoms today still has some bleeding from radiation proctitis Bubba Alcala MD Attn: Accounting,[address] [facility], [place], [address], [facility] - [facility] 07/30/2024 21:45:03 12/08/2024 text/html anemia he receiv [...] Miller[employer] Bubba Alcala MD Attn: Accounting,[address], [place], [address], [facility] - [facility] 12/08/2024 21:26:54 03/16/2025 text/html Struggling with some esophageal cancer his INR was 4.12 days ago we are not getting the blood test is timely as if we had point of care testing no bleeding at this time breathing has been doing okay trouble swallowing but he has got radiation that he just had for esophageal cancer has had some weight loss his breathing has been doing okay he has not had any other GERD type symptoms it is more radiation induced it sounds like some cervical spondylosis he still gets some neck pain chronic anemia they are watching a counts closely at the oncologist office dyslipidemia we have liberalized his diet just a little bit because of his cancer Bubba Alcala MD Attn: Accounting,[address], [place], [address], [facility] - [facility] 03/16/2025 14:50:00 04/27/2025 text/html Follow up of med ical problems COPD stable at this time CAD no chest pain or chest pressure atrial fibrillation he has been ablated no palpitations PE DVT maintained on warfarin. Prostate cancer urinating okay follows with Urology esophageal cancer working through that with Oncology his anemia has been treated expectantly he is maintained on some iron. History of ventricular tachycardia maintained on mexiletine. His cervical spondylosis is doing fine inflammatory bowel disease has been stable SYDNIE Azar, MS - [facility] 05/04/2025 12:46:51
--- OUTSIDE RECORDS SUMMARY | 2025-05-12 11:52 | XMS_ITS | Clinical Summary ---
Author Organization [facility] Address [address] [place] [address] Care Team Providers Care Ditching Machine Operating Engineer Name Role Phone Jas Alcala MD Unavailable [phone] Jas Alcala MD Primary Care Provider [phone] Source Comments [facility],non-owned Affiliates and Associated Physician Practices is amultiple site organization consisting of ambulatory clinics and hospital sitesin [place], [place], [place] and [place]. This disclosure is being madepursuant to the Care Everywhere program and may not contain all information available regarding this patient. 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 Gender Identity Not on file Sexual Orientation Not on file Last Filed Vital Signs Vital Sign Reading Time Taken Comments Blood Pressure 150/99 10/22/2010 2:45 PM ROOMING HOUSE INSPECTOR Pulse 68 10/22/2010 2:45 PM ROOMING HOUSE INSPECTOR Temperature 36.6 C (97.8 F) 10/22/2010 2:45 PM ROOMING HOUSE INSPECTOR Respiratory Rate 16 10/22/2010 2:45 PM ROOMING HOUSE INSPECTOR Oxygen Saturation 97% 10/22/2010 2:45 PM ROOMING HOUSE INSPECTOR Inhaled Oxygen Concentration - - Weight 129.7 kg (286 lb) 10/22/2010 7:02 AM ROOMING HOUSE INSPECTOR Height 182.9 cm (6') 10/22/2010 7:02 AM ROOMING HOUSE INSPECTOR Body Mass Index 38.79 10/22/2010 7:02 AM ROOMING HOUSE INSPECTOR Plan of Treatment Health Maintenance Due Date [...] VACCINE (1 of 2) 01/18/2000 COVID-19 VACCINE (1 - 2023-2 5 season) 2024 DEPRESSION SCREENING 11/02/2024 Respiratory Syncytial Virus (RSV) Vaccine Pt: or over 60 yrs (1 - 1-dose 75+ series) 2025 INFLUENZA VACCINE (#1) 2025 HEPATITIS B VACCINE Aged Out No [...] 2:20 PM 10/23/2010 7:05 AM Care Teams Ditching Machine Operating Engineer Relationship Specialty Start Date End Date Jas Alcala MD [address] [place] [address] PCP - General 10/22/10 Jas Alcala MD Internal Medicine 09/23/10
[2025-05-12 12:16] LABS: Hematocrit 33.1 % (42.0-52.0); Hemoglobin 9.9 g/dL (14.0-18.0); Immature Granulocyte Percent A 0.4 % (0-0.5); Lymphocytes Absolute Auto 0.78 K/mm3 (0.9-3.2); Mean Corpuscular HGB Conc 29.9 g/dl (32-36); Mean Corpuscular Hemoglobin 30.9 pg (26-34); Mean Corpuscular Volume 103.4 fl (80-100); Nucleated Red Blood Cells Absolute Auto 0.000 K/mm3 (0.0-0.012); Nucleated Red Blood Cells Perc 0.0 % (0.0-0.2); Platelet Count Result 186 k/mm3 (150-375); Red Blood Count 3.20 M/mm3 (4.6-6.20); White Blood Count 4.7 K/mm3 (4.5-10.0)
[2025-05-12 12:33] LABS: INR 1.2; Prothrombin Time 14.9 Seconds (11.1-14.7)
[2025-05-12 12:34] LABS: Alanine Aminotransferase 29 U/L (6-50); Albumin Level 3.6 g/dL (3.5-5.1); Alkaline Phosphatase 54 U/L (38-126); Anion Gap 6 mmol/L (4-12); Aspartate Amino Transferase 40 U/L (17-59); Bilirubin,Total 0.2 mg/dL (0.2-1.3); Blood Urea Nitrogen 13 mg/dL (9-20); Calcium 9.0 mg/dL (8.4-10.2); Carbon Dioxide 22 mmol/L (22-30); Chloride 110 mmol/L (98-107); Estimated Glomerular Filt Rate 46; Glucose 94 mg/dL (65-110); Partial Thromboplastin Time 41.8 Seconds (22.3-36.8); Potassium 4.8 mmol/L (3.4-5.0); Sodium 138 mmol/L (137-145); Total Protein 6.7 g/dL (6.3-8.2)
[2025-05-12 12:38] LABS: Hypochromasia 1+; Macrocytosis 1+ (NORMAL)
[2025-05-12 12:39] LABS: Burr Cells 1+; Ovalocytes 1+; Schistocytes None Seen
== END 2025-05-12 11:41 | disposition home or self-care (01) ==
LOC: ANHLAB 11:47
PROVIDERS: PCP Internal Medicine; Visit Provider Internal Medicine
DX: Z79.01 Long term (current) use of anticoagulants (principal)
CPT/HCPCS: 36415; 80053; 85025; 85610; 85730

== ENCOUNTER 2025-05-22 15:41 | Outpatient (CLI) | payer MEDICARE, SELFPAY ==
--- OUTSIDE RECORDS SUMMARY | 2025-05-22 15:48 | XMS_ITS | Clinical Summary ---
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 Gender Identity Not on file Sexual Orientation Not on file Last Filed Vital Signs Vital Sign Reading Time Taken Comments Blood Pressure 142/62 12/29/2019 2:51 PM PROTOTYPER Pulse 62 12/29/2019 2:51 PM PROTOTYPER Temperature 36.4 C (97.6 F) 12/29/2019 2:51 PM PROTOTYPER Respiratory Rate 18 12/29/2019 2:51 PM PROTOTYPER Oxygen Saturation 99% 12/29/2019 2:51 PM PROTOTYPER Inhaled Oxygen Concentration - - Weight 137 kg (302 lb) 12/29/2019 2:51 PM PROTOTYPER Height 182.9 cm (6') 12/29/2019 2:51 PM PROTOTYPER Body Mass Index 40.96 12/29/2019 2:51 PM PROTOTYPER Plan of Treatment Health Maintenance Due Date [...] age to complete this topic Care Teams Qualifications Examiner Relationship Specialty Start Date End Date Jas Alcala MD PCP - General Internal Medicine 11/09/19
--- OUTSIDE RECORDS SUMMARY | 2025-05-22 15:48 | XMS_ITS | Data Portability ---
Author Organization [place] - [facility] [employer], Main Office Address [address] [place] [address] Care Team Providers Care Home Health Billing Specialist Name Role Phone BUBBA ALCALA Primary Care Provider [phone] BUBBA ALCALA Referring Provider Assessment Encounter Date Assessment Date Assessment LastModified by Organization Details LastModified Time 08/04/2023 08/04/2023 Orders for INR given continue current therapy blood work avoid nonsteroidals will consider SLG T 2 inhibitor Follow-up in 3 months [email or web address] Not available 08/16/2023 17:34:29 09/29/2023 09/29/2023 The [...] we will try to get that result [email or web address] Not available 11/09/2023 21:20:45 Plan of Treatment Reminders Order Date Submit Date Provider Last Modified By Organization Details Last Modified Time Details Appointments None recorded. Lab PT/INR 2023 024 [email or web address] [facility] [address], [address], [place], [address], 4 17:00:45 CBC w/ auto diff 2023 024 [facility] (Lab), [address] [place], [address], 4 18:14:03 lipid panel, serum 2023 024 [facility] (Lab), [address] [place], [address], 4 19:14:27 CMP, serum or plasma 2023 024 [facility] (Lab), [address] [place], [address], 4 19:14:32 lipid panel, serum 2022 023 [facility] (Lab), [address] [place], [address], 3 19:23:51 CBC w/ auto diff 2022 023 [facility] (Lab), [address] [place], [address], 3 18:15:09 CMP, serum or plasma 2022 023 [facility] (Lab), [address] [place], [address], 3 19:23:45 PSA, serum or plasma 2022 023 [facility] (Lab), [address], [place], [address], 3 04:11:09 urinalysis, dipstick 2022 023 [email or web address] [facility], [address] [facility] [address], [place], [address], 3 11:47:31 PT/INR 2022 023 [email or web address] [facility] [address], [address] [facility], [place], [address], 3 11:40:20 Referral None recorded. Procedures colonoscopy screening (PROC) 2023 024 [email or web address] Dinah Paz MD, [address] [facility], [address], [place], [address], 4 09:01:32 injection/a spiration joint/bursa (PROC) 2022 023 [email or web address] In-Office Order, Internal Use Only DO Not Attach Compendium DO Not Attach Compendium, Do Not Delete/merge, [id number] 11:05:49 Surgeries None recorded. Imaging XR, wrist 2022 023 [email or web address] [facility], [address], [place], [address], 3 11:41:42 US, bladder 2022 023 [email or web address] [facility], [address] [facility] [address], [place], [address], 3 11:47:49 Medication Orders bupivacaine HCl 0.5 % (5 mg/mL) injection solution 2022 023 [email or web address] [id number] [address] [place], [address], 3 11:41:42 Kenalog 10 mg/mL suspension for injection 2022 023 [email or web address] [id number], [address] [place], [address], 11:41:42 prednisone 10 mg tablets in a dose pack 2022 023 [email or web address] [facility], [address] [place], [address], 11:41:42 Patient TargetsNo targets recorded. Patient InstructionsNo instructions recorded. Reason for Referral None Reported. Results Created Date Observation Date Name Description Value Unit Range Abnormal Flag Note LastModifiedBy Organization Detail LastModifiedTime 04/22/20 23 04/22/2023 PT/IN R PT 22.1 Not Available [facility] [address], [place], [address], 04/22/2023 15:37:32 04/22/20 23 04/22/2023 PT/IN R INR 1.8 Not Available [facility] [address], [place], [address], 04/22/2023 15:37:32 05/06/20 23 05/06/2023 PT/IN R PT 27.2 Not Available [facility] [address], [place], [address], 05/06/2023 10:56:39 05/06/20 23 05/06/2023 PT/IN R INR 2.3 Not Available [facility] [address], [place], [address], 05/06/2023 10:56:39 05/13/20 23 05/13/2023 urina lysis , dipst ick Leukocytes (reference range: negative kenn/ l) Negati ve Not Available [facility] [address], [place], [address], 05/13/2023 10:12:04 05/13/20 23 05/13/2023 urina lysis , dipst ick Nitrite (reference rage: negative mg/dl) negati ve Not Available [facility] [address], [place], [address], 05/13/2023 10:12:04 05/13/20 23 05/13/2023 urina lysis , dipst ick Urobilinogen (reference range: 0.2-1 mg/dl) 0.2 Not Available [facility] [address], [place], [address], 05/13/2023 10:12:04 05/13/2005/13/2023 urina lysis , dipst ick Protein (reference range: negative mg/dl) Negati ve Not Available [facility] [address], [place], [address], 05/13/2023 10:12:04 05/13/2005/13/2023 urina lysis , dipst ick pH (reference range: 5-7) 5.5 Not Available [facility] [address], [place], [address], 05/13/2023 10:12:04 05/13/20 23 05/13/2023 urina lysis , dipst ick Blood (reference range: negative Jose G/ l) Negati ve Not Available [facility] [address], [place], [address], 05/13/2023 10:12:04 05/13/20 23 05/13/2023 urina lysis , dipst ick Specific [place] (reference range: 1.005-1.030) 1.020 Not Available [facility] [address], [place], [address], 05/13/2023 10:12:04 05/13/20 23 05/13/2023 urina lysis , dipst ick Ketone (reference range: negative mg/dl) Negati ve Not Available [facility] [address], [place], [address], 05/13/2023 10:12:04 05/13/20 23 05/13/2023 urina lysis , dipst ick Bilirubin (reference range: negative mg/dl) Negati ve Not Available [facility] [address], [place], [address], 05/13/2023 10:12:04 05/13/2005/13/2023 urina lysis , dipst ick Glucose (reference range: negative mg/dl) Negati ve Not Available [facility] [address], [place], [address], 05/13/2023 10:12:04 05/13/2005/13/2023 urina lysis , dipst ick Appearance Clear Not Available [facility] [address], [place], [address], 05/13/2023 10:12:04 05/13/2005/13/2023 urina lysis , dipst ick Color Yellow Not Available [facility] [place] [address], [place], [address], 05/13/2023 10:12:04 06/04/20 23 06/04/2023 PT/IN R PT 45.5 Not Available [facility] [address], [place], [address], 06/04/2023 15:19:31 06/04/20 23 06/04/2023 PT/IN R INR 3.8 Not Available [facility] [address], [place], [address], 06/04/2023 15:19:31 06/17/20 23 06/17/2023 PT/IN R PT 21.7 Not Available [facility] [address], [place], [address], 06/17/2023 12:16:46 06/17/20 23 06/17/2023 PT/IN R INR 1.8 Not Available [facility] [address], [place], [address], 06/17/2023 12:16:46 07/01/20 23 07/01/2023 PT/IN R PT 43.4 Not Available [facility] [address], [place], [address], 07/01/2023 15:59:45 07/01/20 23 07/01/2023 PT/IN R INR 3.6 Not Available [facility] [address], [place], [address], 07/01/2023 15:59:45 07/15/20 23 07/15/2023 PT/IN R PT 31.1 Not Available [facility] [address], [place], [address], 07/15/2023 12:32:43 07/15/2007/15/2023 PT/IN R INR 2.6 Not Available [facility] [address], [place], [address], 07/15/2023 12:32:43 08/04/2008/04/2023 CBC/C OMPLE TE BLD COUNT W/DIF F white blood cells 6.0 x10'3 /uL 4.2-10 .8 Not Available [facility] (Lab) [address] [place], [address], 08/04/2023 18:15:09 08/04/2008/04/2023 CBC/C OMPLE TE BLD COUNT W/DIF F red blood cells 4.69 x10'6 /uL 4.10-5 .80 Not Available [facility] (Lab) [address] [place], [address], 08/04/2023 18:15:09 08/04/2008/04/2023 CBC/C OMPLE TE BLD COUNT W/DIF F hemoglobin 13.5 g/dL 13.2-1 7.0 Not Available [facility] (Lab) [address] [place], [address], 08/04/2023 18:15:09 08/04/2008/04/2023 CBC/C OMPLE TE BLD COUNT W/DIF F hematocrit 42.7 % 39.3-5 0.0 Not Available [facility] (Lab) [address] [place], [address], 08/04/2023 18:15:09 08/04/2008/04/2023 CBC/C OMPLE TE BLD COUNT W/DIF F mean red cell volume 91.0 fL 80.0-9 7.0 Not Available [facility] (Lab) [address] [place], [address], 08/04/2023 18:15:09 08/04/20 23 08/04/2023 CBC/C OMPLE TE BLD COUNT W/DIF F mean red cell hemoglobin 28.8 pg 27.0-3 3.0 Not Available [facility] (Lab) [address] [place], [address], 08/04/2023 18:15:09 08/04/20 23 08/04/2023 CBC/C OMPLE TE BLD COUNT W/DIF F mean RBC HGB concentratio n 31.6 g/dL 31.0-3 6.0 Not Available [facility] (Lab) [address] [place], [address], 08/04/2023 18:15:09 08/04/20 23 08/04/2023 CBC/C OMPLE TE BLD COUNT W/DIF F red cell distribution width 15.9 % 11.8-1 5.5 high Not Available [facility] (Lab) [address] [facility] [place], [address], 08/04/2023 18:15:09 08/04/2008/04/2023 CBC/C OMPLE TE BLD COUNT W/DIF F platelets 282 x10'3 /uL 150-40 0 Not Available [facility] (Lab) [address] [place], [address], 08/04/2023 18:15:09 08/04/2008/04/2023 CBC/C OMPLE TE BLD COUNT W/DIF F mean platelet volume 9.2 fL 9.0-12 .4 Not Available [facility] (Lab) [address] [place], [address], 08/04/2023 18:15:09 08/04/20 23 08/04/2023 CBC/C OMPLE TE BLD COUNT W/DIF F neutrophils 50.4 % 39.0-7 2.0 Not Available [facility] (Lab) [address] [place], [address], 08/04/2023 18:15:09 08/04/2008/04/2023 CBC/C OMPLE TE BLD COUNT W/DIF F lymphocytes 21.0 % 16.0-4 7.0 Not Available [facility] (Lab) [address] [place], [address], 08/04/2023 18:15:09 08/04/2008/04/2023 CBC/C OMPLE TE BLD COUNT W/DIF F monocytes 12.3 % 5.0-12 .0 high Not Available [facility] (Lab) [address] [place], [address], 08/04/2023 18:15:09 08/04/2008/04/2023 CBC/C OMPLE TE BLD COUNT W/DIF F eosinophils 14.6 % 1.0-7. 0 high Not Available [facility] (Lab) [address] [place], [address], 08/04/2023 18:15:09 08/04/2008/04/2023 CBC/C OMPLE TE BLD COUNT W/DIF F basophils 1.2 % 0.0-2. 0 Not Available [facility] (Lab) [address] [place], [address], 08/04/2023 18:15:09 08/04/2008/04/2023 CBC/C OMPLE TE BLD COUNT W/DIF F immature granulocytes 0.5 % 0.00-0 .50 Not Available [facility] (Lab) [address] [place], [address], 08/04/2023 18:15:09 08/04/2008/04/2023 CBC/C OMPLE TE BLD COUNT W/DIF F neutrophils, absolute count 3.03 x10'3 /uL 1.5-8. 0 Not Available [facility] (Lab) [address] [place], [address], 08/04/2023 18:15:09 08/04/2008/04/2023 CBC/C OMPLE TE BLD COUNT W/DIF F lymphocytes, absolute count 1.26 x10'3 /uL 1.07-3 .43 Not Available [facility] (Lab) [address] [place], [address], 08/04/2023 18:15:09 08/04/2008/04/2023 CBC/C OMPLE TE BLD COUNT W/DIF F monocytes, absolute count 0.74 x10'3 /uL 0.29-0 .99 Not Available [facility] (Lab) [address] [place], [address], 08/04/2023 18:15:09 08/04/2008/04/2023 CBC/C OMPLE TE BLD COUNT W/DIF F eosinophils, absolute count 0.88 x10'3 /uL 0.02-0 .53 high Not Available [facility] (Lab) [address] [place], [address], 08/04/2023 18:15:09 08/04/2008/04/2023 CBC/C OMPLE TE BLD COUNT W/DIF F basophils, absolute count 0.07 x10'3 /uL 0.01-0 .08 Not Available [facility] (Lab) [address] [place], [address], 08/04/2023 18:15:09 08/04/2008/04/2023 CBC/C OMPLE TE BLD COUNT W/DIF F immature granulocytes ,absolute 0.03 x10'3 /uL 0.00-0 .05 Not Available [facility] (Lab) [address] [place], [address], 08/04/2023 18:15:09 08/04/2008/04/2023 CBC/C OMPLE TE BLD COUNT W/DIF F nucleated red blood cells 0.0 % -0 Not Available [facility] (Lab) [address] [place], [address], 08/04/2023 18:15:09 08/04/20 23 08/04/2023 CBC/C OMPLE TE BLD COUNT W/DIF F NRBC# 0.00 x10'3 /uL Not Available [facility] (Lab) [address] [place], [address], 08/04/2023 18:15:09 08/04/2008/04/2023 COMPR EHENS SHYAM METAB OLIC PANEL sodium 139 mmol/ L 137-14 5 Not Available [facility] (Lab) [address] [place], [address], 08/04/2023 19:23:45 08/04/20 23 08/04/2023 COMPR EHENS SHYAM METAB OLIC PANEL potassium 4.8 mmol/ L 3.5-5. 1 Not Available [facility] (Lab) [address] [place], [address], 08/04/2023 19:23:45 08/04/20 23 08/04/2023 COMPR EHENS SHYAM METAB OLIC PANEL chloride 102 mmol/ L 98-107 Not Available [facility] (Lab) [address] [place], [address], 08/04/2023 19:23:45 08/04/20 23 08/04/2023 COMPR EHENS SHYAM METAB OLIC PANEL carbon dioxide 28 mmol/ L 22-30 Not Available [facility] (Lab) [address] [place], [address], 08/04/2023 19:23:45 08/04/20 23 08/04/2023 COMPR EHENS SHYAM METAB OLIC PANEL anion gap 13.8 mmol/ L 14-22 low Not Available [facility] (Lab) [address] [place], [address], 08/04/2023 19:23:45 08/04/2008/04/2023 COMPR EHENS SHYAM METAB OLIC PANEL glucose 86 mg/dL 70-99 Not Available [facility] (Lab) [address] [place], [address], 08/04/2023 19:23:45 08/04/2008/04/2023 COMPR EHENS SHYAM METAB OLIC PANEL BUN 24 mg/dL 8-19 high Not Available [facility] (Lab) [address] [place], [address], 08/04/2023 19:23:45 08/04/2008/04/2023 COMPR EHENS SHYAM METAB OLIC PANEL creatinine 1.61 mg/dL 0.66-1 .25 high Not Available [facility] (Lab) [address] [place], [address], 08/04/2023 19:23:45 08/04/2008/04/2023 COMPR EHENS SHYAM METAB OLIC PANEL GFR 42 Refer ence Range : [place] ge GFR Healt hy Adult : >60 [...] calcu helen is avail able on the [facility] websi te: [email or web address] :[email or web address] rg/pr [email or web address] ional s/kdo qi/gf r_cal culat or Not Available [facility] (Lab) [address] [place], [address], 08/04/2023 19:23:45 08/04/20 23 08/04/2023 COMPR EHENS SHYAM METAB OLIC PANEL alkaline phosphatase 91 U/L 38-126 Not Available [facility] (Lab) [address] [place], [address], 08/04/2023 19:23:45 08/04/20 23 08/04/2023 COMPR EHENS SHYAM METAB OLIC PANEL alanine aminotransfe rase 17 U/L 0-50 Not Available [facility] (Lab) [address] [place], [address], 08/04/2023 19:23:45 08/04/20 23 08/04/2023 COMPR EHENS SHYAM METAB OLIC PANEL aspartate aminotransfe rase 26 U/L 15-46 Not Available [facility] (Lab) [address] [place], [address], 08/04/2023 19:23:45 08/04/2008/04/2023 COMPR EHENS SHYAM METAB OLIC PANEL bilirubin, total 0.50 mg/dL 0.20-1 .30 Not Available [facility] (Lab) [address] [place], [address], 08/04/2023 19:23:45 08/04/20 23 08/04/2023 COMPR EHENS SHYAM METAB OLIC PANEL calcium 9.6 mg/dL 8.4-10 .2 Not Available [facility] (Lab) [address] [place], [address], 08/04/2023 19:23:45 08/04/2008/04/2023 COMPR EHENS SHYAM METAB OLIC PANEL total protein 7.4 g/dL 6.3-8. 2 Not Available [facility] (Lab) [address] [place], [address], 08/04/2023 19:23:45 08/04/2008/04/2023 COMPR EHENS SHYAM METAB OLIC PANEL albumin 4.2 g/dL 3.0-4. 4 Not Available [facility] (Lab) [address] [place], [address], 08/04/2023 19:23:45 08/04/2008/04/2023 COMPR EHENS SHYAM METAB OLIC PANEL globulin 3.2 g/dL 2.6-4. 2 Not Available [facility] (Lab) [address] [place], [address], 08/04/2023 19:23:45 08/04/2008/04/2023 COMPR EHENS SHYAM METAB OLIC PANEL A/G ratio 1.3 ratio 1.0-2. 0 Not Available [facility] (Lab) [address] [place], [address], 08/04/2023 19:23:45 08/04/2008/04/2023 LIPID PANEL cholesterol 213 mg/dL 140-19 9 high NIH AYO NSUS RECOM MENDA TION FOR FAISAL STERO L: ADULT CHILD LOW RISK: <200 <170 BORDE RLINE : <200- 239 ----- HIGH RISK: >240 >200 Not Available [facility] (Lab) [address] [place], [address], 08/04/2023 19:23:51 08/04/2008/04/2023 LIPID PANEL triglyceride s 171 mg/dL 0-150 high NIH AYO NSUS REPOR T RECOM MENDA TION FOR TRIGL YCERI JARVIS: ADULT CHILD LOW RISK: <150 ----- BODER LINE: 150-1 99 ----- HIGH RISK: >200 ----- Not Available [facility] (Lab) [address] [place], [address], 08/04/2023 19:23:51 08/04/2008/04/2023 LIPID PANEL HDL cholesterol 58 mg/dL 40- Not Available [facility] (Lab) [address] [place], [address], 08/04/2023 19:23:51 08/04/2008/04/2023 LIPID PANEL LDL cholesterol, [...] WILL NOT BE REPOR MYRTLE. Not Available [facility] (Lab) [address] [place], [address], 08/04/2023 19:23:51 08/04/2008/05/2023 PSA, TOTAL PSA, total <0.064 NG/mL 0.00-4 .00 Not Available [facility] (Lab) [address] [place], [address], 08/05/2023 19:37:51 09/01/2009/01/2023 CBC/C OMPLE TE BLD COUNT W/DIF F white blood cells 5.8 x10'3 /uL 4.2-10 .8 Not Available [facility] (Lab) [address] [place], [address], 09/01/2023 16:47:48 09/01/2009/01/2023 CBC/C OMPLE TE BLD COUNT W/DIF F red blood cells 4.53 x10'6 /uL 4.10-5 .80 Not Available [facility] (Lab) [address] [place], [address], 09/01/2023 16:47:48 09/01/2009/01/2023 CBC/C OMPLE TE BLD COUNT W/DIF F hemoglobin 13.2 g/dL 13.2-1 7.0 Not Available [facility] (Lab) [address] [place], [address], 09/01/2023 16:47:48 09/01/2009/01/2023 CBC/C OMPLE TE BLD COUNT W/DIF F hematocrit 42.0 % 39.3-5 0.0 Not Available [facility] (Lab) [address] [place], [address], 09/01/2023 16:47:48 09/01/2009/01/2023 CBC/C OMPLE TE BLD COUNT W/DIF F mean red cell volume 92.7 fL 80.0-9 7.0 Not Available [facility] (Lab) [address] [place], [address], 09/01/2023 16:47:48 09/01/2009/01/2023 CBC/C OMPLE TE BLD COUNT W/DIF F mean red cell hemoglobin 29.1 pg 27.0-3 3.0 Not Available [facility] (Lab) [address] [place], [address], 09/01/2023 16:47:48 09/01/2009/01/2023 CBC/C OMPLE TE BLD COUNT W/DIF F mean RBC HGB concentratio n 31.4 g/dL 31.0-3 6.0 Not Available [facility] (Lab) [address] [place], [address], 09/01/2023 16:47:48 09/01/2009/01/2023 CBC/C OMPLE TE BLD COUNT W/DIF F red cell distribution width 15.6 % 11.8-1 5.5 high Not Available [facility] (Lab) [address] [place], [address], 09/01/2023 16:47:48 09/01/2009/01/2023 CBC/C OMPLE TE BLD COUNT W/DIF F platelets 315 x10'3 /uL 150-40 0 Not Available [facility] (Lab) [address] [place], [address], 09/01/2023 16:47:48 09/01/2009/01/2023 CBC/C OMPLE TE BLD COUNT W/DIF F mean platelet volume 8.8 fL 9.0-12 .4 low Not Available [facility] (Lab) [address] [place], [address], 09/01/2023 16:47:48 09/01/2009/01/2023 CBC/C OMPLE TE BLD COUNT W/DIF F neutrophils 54.1 % 39.0-7 2.0 Not Available [facility] (Lab) [address] [place], [address], 09/01/2023 16:47:48 09/01/2009/01/2023 CBC/C OMPLE TE BLD COUNT W/DIF F lymphocytes 19.7 % 16.0-4 7.0 Not Available [facility] (Lab) [address] [place], [address], 09/01/2023 16:47:48 09/01/2009/01/2023 CBC/C OMPLE TE BLD COUNT W/DIF F monocytes 14.1 % 5.0-12 .0 high Not Available [facility] (Lab) [address] [place], [address], 09/01/2023 16:47:48 09/01/2009/01/2023 CBC/C OMPLE TE BLD COUNT W/DIF F eosinophils 10.0 % 1.0-7. 0 high Not Available [facility] (Lab) [address] [place], [address], 09/01/2023 16:47:48 09/01/2009/01/2023 CBC/C OMPLE TE BLD COUNT W/DIF F basophils 1.4 % 0.0-2. 0 Not Available [facility] (Lab) [address] [place], [address], 09/01/2023 16:47:48 09/01/2009/01/2023 CBC/C OMPLE TE BLD COUNT W/DIF F immature granulocytes 0.7 % 0.00-0 .50 high Not Available [facility] (Lab) [address] [place], [address], 09/01/2023 16:47:48 09/01/2009/01/2023 CBC/C OMPLE TE BLD COUNT W/DIF F neutrophils, absolute count 3.14 x10'3 /uL 1.5-8. 0 Not Available [facility] (Lab) [address] [place], [address], 09/01/2023 16:47:48 09/01/2009/01/2023 CBC/C OMPLE TE BLD COUNT W/DIF F lymphocytes, absolute count 1.14 x10'3 /uL 1.07-3 .43 Not Available [facility] (Lab) [address] [place], [address], 09/01/2023 16:47:48 09/01/2009/01/2023 CBC/C OMPLE TE BLD COUNT W/DIF F monocytes, absolute count 0.82 x10'3 /uL 0.29-0 .99 Not Available [facility] (Lab) [address] [place], [address], 09/01/2023 16:47:48 09/01/2009/01/2023 CBC/C OMPLE TE BLD COUNT W/DIF F eosinophils, absolute count 0.58 x10'3 /uL 0.02-0 .53 high Not Available [facility] (Lab) [address] [place], [address], 09/01/2023 16:47:48 09/01/2009/01/2023 CBC/C OMPLE TE BLD COUNT W/DIF F basophils, absolute count 0.08 x10'3 /uL 0.01-0 .08 Not Available [facility] (Lab) [address] [place], [address], 09/01/2023 16:47:48 09/01/2009/01/2023 CBC/C OMPLE TE BLD COUNT W/DIF F immature granulocytes ,absolute 0.04 x10'3 /uL 0.00-0 .05 Not Available [facility] (Lab) [address] [place], [address], 09/01/2023 16:47:48 09/01/2009/01/2023 CBC/C OMPLE TE BLD COUNT W/DIF F nucleated red blood cells 0.0 % -0 Not Available [facility] (Lab) [address] [place], [address], 09/01/2023 16:47:48 09/01/2009/01/2023 CBC/C OMPLE TE BLD COUNT W/DIF F NRBC# 0.00 x10'3 /uL Not Available [facility] (Lab) [address] [place], [address], 09/01/2023 16:47:48 09/01/20 23 09/01/2023 BASIC METAB OLIC PANEL sodium 139 mmol/ L 137-14 5 Not Available [facility] (Lab) [address] [place], [address], 09/01/2023 18:00:43 09/01/2009/01/2023 BASIC METAB OLIC PANEL potassium 4.7 mmol/ L 3.5-5. 1 Not Available [facility] (Lab) [address] [place], [address], 09/01/2023 18:00:43 09/01/2009/01/2023 BASIC METAB OLIC PANEL chloride 106 mmol/ L 98-107 Not Available [facility] (Lab) [address] [place], [address], 09/01/2023 18:00:43 09/01/2009/01/2023 BASIC METAB OLIC PANEL carbon dioxide 29 mmol/ L 22-30 Not Available [facility] (Lab) [address] [place], [address], 09/01/2023 18:00:43 09/01/2009/01/2023 BASIC METAB OLIC PANEL anion gap 8.7 mmol/ L 14-22 low Not Available [facility] (Lab) [address] [place], [address], 09/01/2023 18:00:43 09/01/2009/01/2023 BASIC METAB OLIC PANEL glucose 77 mg/dL 70-99 Not Available [facility] (Lab) [address] [place], [address], 09/01/2023 18:00:43 09/01/2009/01/2023 BASIC METAB OLIC PANEL BUN 18 mg/dL 8-19 Not Available [facility] (Lab) [address] [place], [address], 09/01/2023 18:00:43 09/01/20 23 09/01/2023 BASIC METAB OLIC PANEL creatinine 1.70 mg/dL 0.66-1 .25 high Not Available [facility] (Lab) [address] [place], [address], 09/01/2023 18:00:43 09/01/2009/01/2023 BASIC METAB OLIC PANEL GFR 40 Refer ence Range : [place] ge GFR Healt hy Adult : >60 [...] calcu lator is avail able on the [facility] websi te: [email or web address] r_[email or web address] culat or Not Available [facility] (Lab) [address] [place], [address], 09/01/2023 18:00:43 09/01/2009/01/2023 BASIC METAB OLIC PANEL calcium 9.2 mg/dL 8.4-10 .2 Not Available [facility] (Lab) [address] [place], [address], 09/01/2023 18:00:43 09/01/2009/01/2023 PT/IN R PT 54.1 Not Available [facility] [place] Med [facility] [address], [place], [address], 09/01/2023 14:17:57 09/01/20 23 09/01/2023 PT/IN R INR 4.5 Not Available [facility] [place] [facility] [address], [place], [address], 09/01/2023 14:17:57 10/07/20 23 10/07/2023 PT/IN R PT 32.8 Not Available [facility] [place] Internal Med [facility] [address], [place], [address], 10/07/2023 10:19:26 10/07/20 23 10/07/2023 PT/IN R INR 2.7 Not Available [facility] [place] [facility] [address], [place], [address], 10/07/2023 10:19:26 11/09/19 24 11/09/2023 CBC/C OMPLE TE BLD COUNT W/DIF F white blood cells 5.5 x10'3 /uL 4.2-10 .8 Not Available [facility] (Lab) [address] [place], [address], 11/09/2023 18:14:03 11/09/19 24 11/09/2023 CBC/C OMPLE TE BLD COUNT W/DIF F red blood cells 4.47 x10'6 /uL 4.10-5 .80 Not Available [facility] (Lab) [address] [place], [address], 11/09/2023 18:14:03 11/09/19 24 11/09/2023 CBC/C OMPLE TE BLD COUNT W/DIF F hemoglobin 13.0 g/dL 13.2-1 7.0 low Not Available [facility] (Lab) [address] [place], [address], 11/09/2023 18:14:03 11/09/19 24 11/09/2023 CBC/C OMPLE TE BLD COUNT W/DIF F hematocrit 41.4 % 39.3-5 0.0 Not Available [facility] (Lab) [address] [place], [address], 11/09/2023 18:14:03 11/09/19 24 11/09/2023 CBC/C OMPLE TE BLD COUNT W/DIF F mean red cell volume 92.6 fL 80.0-9 7.0 Not Available [facility] (Lab) [address] [place], [address], 11/09/2023 18:14:03 11/09/19 24 11/09/2023 CBC/C OMPLE TE BLD COUNT W/DIF F mean red cell hemoglobin 29.1 pg 27.0-3 3.0 Not Available [facility] (Lab) [address] [place], [address], 11/09/2023 18:14:03 11/09/19 24 11/09/2023 CBC/C OMPLE TE BLD COUNT W/DIF F mean RBC HGB concentratio n 31.4 g/dL 31.0-3 6.0 Not Available [facility] (Lab) [address] [place], [address], 11/09/2023 18:14:03 11/09/19 24 11/09/2023 CBC/C OMPLE TE BLD COUNT W/DIF F red cell distribution width 16.0 % 11.8-1 5.5 high Not Available [facility] (Lab) [address] [place], [address], 11/09/2023 18:14:03 11/09/19 24 11/09/2023 CBC/C OMPLE TE BLD COUNT W/DIF F platelets 257 x10'3 /uL 150-40 0 Not Available [facility] (Lab) [address] [place], [address], 11/09/2023 18:14:03 11/09/19 24 11/09/2023 CBC/C OMPLE TE BLD COUNT W/DIF F mean platelet volume 8.8 fL 9.0-12 .4 low Not Available [facility] (Lab) [address] [place], [address], 11/09/2023 18:14:03 11/09/19 24 11/09/2023 CBC/C OMPLE TE BLD COUNT W/DIF F neutrophils 51.5 % 39.0-7 2.0 Not Available [facility] (Lab) [address] [place], [address], 11/09/2023 18:14:03 11/09/19 24 11/09/2023 CBC/C OMPLE TE BLD COUNT W/DIF F lymphocytes 22.0 % 16.0-4 7.0 Not Available [facility] (Lab) [address] [place], [address], 11/09/2023 18:14:03 11/09/19 24 11/09/2023 CBC/C OMPLE TE BLD COUNT W/DIF F monocytes 10.8 % 5.0-12 .0 Not Available [facility] (Lab) [address] [place], [address], 11/09/2023 18:14:03 11/09/19 24 11/09/2023 CBC/C OMPLE TE BLD COUNT W/DIF F eosinophils 13.9 % 1.0-7. 0 high Not Available [facility] (Lab) [address] [place], [address], 11/09/2023 18:14:03 11/09/19 24 11/09/2023 CBC/C OMPLE TE BLD COUNT W/DIF F basophils 1.4 % 0.0-2. 0 Not Available [facility] (Lab) [address] [place], [address], 11/09/2023 18:14:03 11/09/19 24 11/09/2023 CBC/C OMPLE TE BLD COUNT W/DIF F immature granulocytes 0.4 % 0.00-0 .50 Not Available [facility] (Lab) [address] [place], [address], 11/09/2023 18:14:03 11/09/19 24 11/09/2023 CBC/C OMPLE TE BLD COUNT W/DIF F neutrophils, absolute count 2.85 x10'3 /uL 1.5-8. 0 Not Available [facility] (Lab) [address] [place], [address], 11/09/2023 18:14:03 11/09/19 24 11/09/2023 CBC/C OMPLE TE BLD COUNT W/DIF F lymphocytes, absolute count 1.22 x10'3 /uL 1.07-3 .43 Not Available [facility] (Lab) [address] [place], [address], 11/09/2023 18:14:03 11/09/19 24 11/09/2023 CBC/C OMPLE TE BLD COUNT W/DIF F monocytes, absolute count 0.60 x10'3 /uL 0.29-0 .99 Not Available [facility] (Lab) [address] [place], [address], 11/09/2023 18:14:03 11/09/19 24 11/09/2023 CBC/C OMPLE TE BLD COUNT W/DIF F eosinophils, absolute count 0.77 x10'3 /uL 0.02-0 .53 high Not Available [facility] (Lab) [address] [place], [address], 11/09/2023 18:14:03 11/09/19 24 11/09/2023 CBC/C OMPLE TE BLD COUNT W/DIF F basophils, absolute count 0.08 x10'3 /uL 0.01-0 .08 Not Available [facility] (Lab) [address] [place], [address], 11/09/2023 18:14:03 11/09/19 24 11/09/2023 CBC/C OMPLE TE BLD COUNT W/DIF F immature granulocytes ,absolute 0.02 x10'3 /uL 0.00-0 .05 Not Available [facility] (Lab) [address] [place], [address], 11/09/2023 18:14:03 11/09/19 24 11/09/2023 CBC/C OMPLE TE BLD COUNT W/DIF F nucleated red blood cells 0.0 % -0 Not Available [facility] (Lab) [address] [place], [address], 11/09/2023 18:14:03 11/09/19 24 11/09/2023 CBC/C OMPLE TE BLD COUNT W/DIF F NRBC# 0.00 x10'3 /uL Not Available [facility] (Lab) [address] [place], [address], 11/09/2023 18:14:03 11/09/19 24 11/09/2023 LIPID PANEL cholesterol 132 mg/dL 140-19 9 low NIH AYO NSUS RECOM MENDA TION FOR FAISAL STERO L: ADULT CHILD LOW RISK: <200 <170 BORDE RLINE : <200- 239 ----- HIGH RISK: >240 >200 Not Available [facility] (Lab) [address] [place], [address], 11/09/2023 19:14:27 11/09/19 24 11/09/2023 LIPID PANEL triglyceride s 92 mg/dL 0-150 NIH AYO NSUS REPOR T RECOM MENDA TION FOR TRIGL YCERI JARVIS: ADULT CHILD LOW RISK: <150 ----- BODER LINE: 150-1 99 ----- HIGH RISK: >200 ----- Not Available [facility] (Lab) [address] [place], [address], 11/09/2023 19:14:27 11/09/19 24 11/09/2023 LIPID PANEL HDL cholesterol 66 mg/dL 40- Not Available [facility] (Lab) [address] [place], [address], 11/09/2023 19:14:27 11/09/19 24 11/09/2023 LIPID PANEL [...] WILL NOT BE REPOR MYRTLE. Not Available [facility] (Lab) [address] [place], [address], 11/09/2023 19:14:27 11/09/19 24 11/09/2023 COMPR EHENS SHYAM METAB OLIC PANEL sodium 139 mmol/ L 137-14 5 Not Available [facility] (Lab) [address] [place], [address], 11/09/2023 19:14:32 11/09/19 24 11/09/2023 COMPR EHENS SHYAM METAB OLIC PANEL potassium 4.5 mmol/ L 3.5-5. 1 Not Available [facility] (Lab) [address] [place], [address], 11/09/2023 19:14:32 11/09/19 24 11/09/2023 COMPR EHENS SHYAM METAB OLIC PANEL chloride 104 mmol/ L 98-107 Not Available [facility] (Lab) [address] [place], [address], 11/09/2023 19:14:32 11/09/19 24 11/09/2023 COMPR EHENS SHYAM METAB OLIC PANEL carbon dioxide 27 mmol/ L 22-30 Not Available [facility] (Lab) [address] [place], [address], 11/09/2023 19:14:32 11/09/19 24 11/09/2023 COMPR EHENS SHYAM METAB OLIC PANEL anion gap 12.5 mmol/ L 14-22 low Not Available [facility] (Lab) [address] [place], [address], 11/09/2023 19:14:32 11/09/19 24 11/09/2023 COMPR EHENS SHYAM METAB OLIC PANEL glucose 87 mg/dL 70-99 Not Available [facility] (Lab) [address] [place], [address], 11/09/2023 19:14:32 11/09/19 24 11/09/2023 COMPR EHENS SHYAM METAB OLIC PANEL BUN 19 mg/dL 8-19 Not Available [facility] (Lab) [address] [place], [address], 11/09/2023 19:14:32 11/09/19 24 11/09/2023 COMPR EHENS SHYAM METAB OLIC PANEL creatinine 1.49 mg/dL 0.66-1 .25 high Not Available [facility] (Lab) [address] [place], [address], 11/09/2023 19:14:32 11/09/19 24 11/09/2023 COMPR EHENS SHYAM METAB OLIC PANEL GFR 46 Refer ence Range : [place] ge GFR Healt hy Adult : >60 [...] calcu lator is avail able on the [facility] websi te: [email or web address] :[email or web address] rg/[email or web address] ional s/kdo qi/gf r_cal culat or Not Available [facility] (Lab) [address] [place], [address], 11/09/2023 19:14:32 11/09/19 24 11/09/2023 COMPR EHENS SHYAM METAB OLIC PANEL alkaline phosphatase 71 U/L 38-126 Not Available [facility] (Lab) [address] [place], [address], 11/09/2023 19:14:32 11/09/19 24 11/09/2023 COMPR EHENS SHYAM METAB OLIC PANEL alanine aminotransfe rase 18 U/L 0-50 Not Available [facility] (Lab) [address] [place], [address], 11/09/2023 19:14:32 11/09/19 24 11/09/2023 COMPR EHENS SHYAM METAB OLIC PANEL aspartate aminotransfe rase 30 U/L 15-46 Not Available [facility] (Lab) [address] [place], [address], 11/09/2023 19:14:32 11/09/19 24 11/09/2023 COMPR EHENS SHYAM METAB OLIC PANEL bilirubin, total 0.40 mg/dL 0.20-1 .30 Not Available [facility] (Lab) [address] [place], [address], 11/09/2023 19:14:32 11/09/19 24 11/09/2023 COMPR EHENS SHYAM METAB OLIC PANEL calcium 9.5 mg/dL 8.4-10 .2 Not Available [facility] (Lab) [address] [place], [address], 11/09/2023 19:14:32 11/09/19 24 11/09/2023 COMPR EHENS SHYAM METAB OLIC PANEL total protein 7.2 g/dL 6.3-8. 2 Not Available [facility] (Lab) [address] [place], [address], 11/09/2023 19:14:32 11/09/19 24 11/09/2023 COMPR EHENS SHYAM METAB OLIC PANEL albumin 4.1 g/dL 3.0-4. 4 Not Available [facility] (Lab) [address] [place], [address], 11/09/2023 19:14:32 11/09/19 24 11/09/2023 COMPR EHENS SHYAM METAB OLIC PANEL globulin 3.1 g/dL 2.6-4. 2 Not Available [facility] (Lab) [address] [place], [address], 11/09/2023 19:14:32 11/09/19 24 11/09/2023 COMPR EHENS SHYAM METAB OLIC PANEL A/G ratio 1.3 ratio 1.0-2. 0 Not Available [facility] (Lab) [address] [place], [address], 11/09/2023 19:14:32 11/09/19 24 11/09/2023 PT/IN R PT 27.1 Not Available [facility] Internal Med [facility] [address] [facility] 15, [place], [address], 11/09/2023 16:05:16 11/09/19 24 11/09/2023 PT/IN R INR 2.3 Not Available [facility] Internal Med [facility] [address], [place], [address], 11/09/2023 16:05:16 02/03/20 24 02/03/2024 PROTI ME W/INR protime 17.9 secon ds 9.4-11 .9 high Not Available [facility] (Lab) [address] [place], [address], 02/03/2024 14:28:13 02/03/20 24 02/03/2024 PROTI ME [...] HOSPH OLIPI D SYNDR OME. Not Available [facility] (Lab) [address] [facility], [place], [address], 02/03/2024 14:28:13 02/08/20 24 02/08/2024 PROTI ME W/INR protime 18.2 secon ds 9.4-11 .9 high Not Available [facility] (Lab) [address] [place], [address], 02/08/2024 12:48:29 02/08/20 24 02/08/2024 PROTI ME [...] HOSPH OLIPI D SYNDR OME. Not Available [facility] (Lab) [address] [place], [address], 02/08/2024 12:48:29 02/15/20 24 02/15/2024 PROTI ME W/INR protime 18.0 secon ds 9.4-11 .9 high Not Available [facility] (Lab) [address] [place], [address], 02/15/2024 14:46:39 02/15/20 24 02/15/2024 PROTI ME [...] HOSPH OLIPI D SYNDR OME. Not Available [facility] (Lab) [address], [place], [address], 02/15/2024 14:46:39 05/13/20 23 05/13/2023 US, bladd er No observ ation record ed. [email or web address] [facility] [place] [address] [facility] [address], [place], [address], 05/13/2023 12:47:41 05/19/2005/19/2023 XR, foot [facility] [address], [place] [address] Patien t Name: BRENNEN OLSON ion #: [id number] Sex: M : 1949 0 Dictat [...] at 2022 12:25: 27 PM Page 1 [email or web address] [facility] (Imaging) [address] [place], [address], 09/18/2023 21:52:16 09/29/20 23 XR, wrist No observ ation record ed. [email or web address] [facility] [place] [address] [facility], [place], [address], 09/29/2023 11:26:17 11/10/19 24 10/01/2023 CT, abdom en + pelvi s, w/wo contr ast No observ ation record ed. BARCODE Not Available 2023 12:57:54 Result Notes Documentation Provider Name and Address Organization Details Recorded Time Xr, Foot : [facility] [address] [place] [address] Patient Name: BRENNEN OLSON Sex: M : [...] MRI Page 1 Bubba Alcala MD [address] [facility], [address], [place], [address], [facility] [employer] [facility] 09/18/2023 21:52:16 Problems Name Problem SNOMED Code Status Onset Date Resolution Date Notes Provider Name and Address Organization Details Recorded Time Disorder of shoulder 130475641 Active Not Available [facility] 3 03:26:28 Cellulit is 973475657 Completed Not Available [facility] 3 03:26:28 Bruising symptom 437380030 Completed Not Available [facility] 3 03:26:28 Abdomina l pain 71663273 Completed Not Available [facility] 3 03:26:29 Gastroes ophageal reflux disease 927206381 Active Not Available [facility] 3 03:26:29 Shoulder joint pain 840142604 Active Not Available [facility] 3 03:26:29 Eruption 756615992 Completed Not Available [facility] 3 03:26:29 Pain in right arm 593139030 Completed Not Available [facility] 3 03:26:29 Sinusiti s 78700228 Completed Not Available [facility] 3 03:26:30 Chronic pain syndrome 254504030 Active Not Available [facility] 3 03:26:30 Dizzines s 238029082 Completed Not Available [facility] 3 03:26:30 Recurren t hernia of anterior abdomina l wall 093386722 Active Not Available [facility] 3 03:26:30 Hernia of abdomina l cavity 74842195 Active Not Available [facility] 3 03:26:31 Upper respirat ory infectio n 54019367 Completed Not Available [facility] 3 03:26:31 Cervical radiculo fausto 72695543 Completed Not Available [facility] 3 03:26:31 Rhinitis 84100493 Completed Not Available [facility] 3 03:26:31 Pain in limb 12277823 Active Not Available [facility] 3 03:26:31 Nonische guanaco congesti ve cardiomy opathy 34667297465 4 Active 2018 cardiac catheter ization EF 40- 45% 2019 Not Available [facility] 3 03:26:28 History of malignan t neoplasm of prostate 662167265 Active 2019 Not Available [facility] 3 03:26:30 Abnormal radionuc lide scan 582449848 Active 2019 indeterm inate V/Q scan while on Eliquis patient was started on Coumadin and treated as Eliquis failure could not do CT angiogra m Not Available [facility] 3 03:26:28 Osteoart hritis 848807740 Active 2020 Not Available [facility] 3 03:26:30 Increase d frequenc y of urinatio n 376249143 Active 2021 Not Available [facility] 3 03:26:28 Microsco pic hematuri a 788620711 Active 2021 Not Available [facility] 3 03:26:29 Anticoag ulant therapy Active 2021 Not Available [facility] 3 03:26:29 Imaging result abnormal 905012097 Active 2021 Not Available [facility] 3 03:26:30 Chronic kidney disease stage 3 196305720 Active 2021 Not Available [facility] 3 03:26:30 Disorder of salivary gland 84685349 Active 2021 Not Available [facility] 3 03:26:28 Malignan t neoplasm of prostate 988690651 Active 2021 Not Available [facility] 3 03:26:30 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 Not Available [facility] 3 03:26:31 Ventricu lar tachycar megan 81910652 Active 2021 ablation [facility] June 2022 Not Available [facility] 3 03:26:29 Urgent desire to urinate 15496340 Active 2021 Not Available [facility] 3 03:26:31 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 31630223464 9106 Active 2021 Not Available [facility] 3 03:26:28 Pain of left shoulder joint 80538771296 689644 Active 2022 Not Available [facility] 3 03:26:28 Partial thicknes s rotator cuff tear 822209285 Active 2022 Not Available [facility] 3 03:26:29 Partial thicknes s rotator cuff tear Active 2022 Not Available [facility] 3 03:26:29 Spinal stenosis in cervical region 80464373 Active 2022 Not Available [facility] 3 03:26:31 Pain in right sacroili ac joint 71197302848 300126 Active 2022 Not Available [facility] 3 03:26:28 Pain of right hip joint 76736306685 9102 Active 2022 Not Available [facility] 3 03:26:29 Neck pain 20149537 Active 2022 NORA Servin null, [place] [facility] 3 10:26:28 Pain of toe of left foot 77152781567 9108 Active 2022 Ingris Hunter RN null, [place] [facility] 3 14:39:12 History of pulmonar y embolus 429130928 Active 2022 Bubba Alcala MD [address], [address] , [place] [facility] 3 17:30:45 Hyperlip idemia 29218259 Active 2022 Jocy Keene null, [place] [facility] 3 14:51:26 Pain of left wrist 50967995490 9102 Active 2022 Marisel Montana [employer] null, [place] [facility] 3 10:42:51 Arthriti s of first carpomet acarpal joint of left hand 97944431312 91148 Active 2022 REA SernaA null, [place] [facility] 3 11:03:17 Sprain of left wrist 78289576716 610282 Active 2022 BENEDICT Chase [address], [place], [address] , [facility] [employer] [facility] 3 11:25:17 Rectal hemorrha ge 67502371 Active 2023 NORA Davidson, [facility] [employer] [facility] 4 16:55:52 Laborato ry test result abnormal 850308024 Active 2023 Aletha LevymirtaNORA, [facility] [employer] [facility] 4 12:04:11 Notes:Some problems listed i n Document: #[id number] could not be added to this patient's chart. Please review this document and add these problems to the patient's chart manually as needed. Problem Notes None recorded. Procedures Surgical History Date Name Laterality Status Provider Name and Address Organization Details Recorded Time 01/14/20 23 Ortho - Cortisone Injection completed Trung Buenrostro MD [address], [place], [address], [facility] [employer] [facility] 01/13/2023 10:14:39 06/09/20 22 Unlisted px cardiac surgery completed Not Available [facility] 12/31/2022 03:18:52 04/06/20 14 Colonoscopy completed Not Available [facility] 12/31/2022 03:18:52 Unlisted px femur/knee completed Not Available [facility] 12/31/2022 03:18:52 Cholecystectomy completed Not Available [facility] 12/31/2022 03:18:52 Tonsillectomy completed Not Available [facility] 12/31/2022 03:18:52 Back Surgery completed Not Available [facility] 12/31/2022 03:18:52 Hernia Repair completed Not Available [facility] 12/31/2022 03:18:52 Neck Surgeries completed Not Available [facility] 12/31/2022 03:18:52 Prostatectomy completed Not Available [facility] 12/31/2022 03:18:52 Vasectomy completed Not Available [facility] 12/31/2022 03:18:52 Imaging Results None recorded. Procedure Notes None recorded. Medical Equipment None Reported. Allergies Allergen ID Allergen Name Allergen Category Reaction Reaction Severity Criticality Documentation Date Start Date Code Code System Note Provider Name and Address Organization Details Recorded Time 2089 Lyrica medicatio n other Not available Not available 12/31/2022 77547 1 RxNorm visio n montanez es Not Available [facility] 3 03:35:30 6343 Celebrex medicatio n Not available Not available Not available 12/31/2022 84748 7 RxNorm Not Available [facility] 3 03:35:30 6344 amoxicill in medicatio n Not available Not available Not available 12/31/2022 723 RxNorm Not Available [facility] 3 03:35:30 07027 Farxiga medicatio n Not available Not available Not available 09/22/2023 53176 72 RxNorm Ingris pruitt RN [facility], [place] [facility] [place] [employer] [facility] 3 12:27:08 Medications Name Sig [...] mg by injectio n route. 2022 active [facility]: [phone] Not Available Not Available Not [...] administ ered by the provider 10/10 completed [facility]: [phone] 6-17 Not Available Not Available Not [...] Not Available Not Avai lable Fluzone Quad 4868-1220 60 mcg (15 mcg x 4)/0.5 mL IM suspensio n active Not Available Not Available Not Available Fluzone High-Dose 0709-3060 (PF) 180 mcg/0.5 mL intramusc ular syringe TO BE ADMINIST ERED BY PHARMACI ST FOR IMMUNIZA TION 12/19 completed Not Available Not Available Not Available Ozempic 04/29 completed Started by his cardiolo gist for weight loss Not Available Not Available Not Available Fluzone High-Dose 7816-8062 (PF) 180 mcg/0.5 mL intramusc ular syringe [...] Updated DateTime 4 182.88 cm 38.2 kg/m2 408333. 05 g 97.3 [degF] 54 /min 124/74 mm[Hg] NORA Rousseau MS [facility] [employer] 16:03:45 Date Recorded Body height Provider Name an d Address Organization Details Last Updated DateTime 05/06/2023 182.88 cm Ana Muller RN [facility] [employer] 05/06/2023 10:56:27 Date Recorded Body height Body mass index (BMI) Body weight Oxygen saturation Oxygen saturation in Arterial blood by Pulse oximetry Body temperature Heart rate Systolic And Diastolic Provider Name and Address Organization Details Last Updated DateTime 3 182.88 cm 34.4 kg/m2 494643. 46 g 95 % 95 % 98.2 [degF] 80 /min 141/93 mm[Hg] [facility] [employer] [facility] 3 11:29:42 Date Recorded Body height Body mass index (BMI) Body weight Body temperature Heart rate Systolic And Diastolic Provider Name and Address Organization Details Last Updated DateTime 3 182.88 cm 36.2 kg/m2 014681. 16 g 98 [degF] 57 /min 126/72 mm[Hg] Erma Dileep [facility] [employer] [facility] 3 15:04:09 Date Recorded Body height Body mass index (BMI) Body weight Provider Name and Address Organization Details Last Updated DateTime 09/29/2023 182.88 cm 35.3 kg/m2 148940.02 g Marisel [place] [facility] [employer] [facility] 09/29/2023 10:42:19 Social History Question Answer Notes LastModified by Organization Details LastModified Time Tobacco Smoking Status Former Smoker quit 05/24/19 Not Available [facility] 12/31/2022 03:13:58 Do You Have An Advance Directive? No Papers Provided [id number] Information not available 12/31/2022 Are You Blind Or Do You Have Difficulty Seeing? No [email or web address] [id number] Information not available 12/31/2022 What Is Your Level Of Caffeine Consumption? Occasional [id number] Information not available 12/31/2022 How Much Tobacco Do You Chew? None [id number] [id number] Information not available 12/31/2022 In The 14 Days Before Symptom Onset, Have You Had Close Contact With A Laboratory-conf irmed COVID-19 While That Case Was Ill? No MIGRATION.030 [id number] Information not available 12/31/2022 In The 14 Days Before Symptom Onset, Have You Had Close Contact With A Person Who Is Under Investigation For COVID-19 While That Person Was Ill? No MIGRATION.030 836529 Information not available 12/31/2022 Are You Deaf Or Do You Have Serious Difficulty Hearing? No MIGRATION.030 820844 Information not available 12/31/2022 What Type Of Diet Are You Following? REGULAR MIGRATION.0301 258697 Information not available 12/31/2022 Which Illicit Or Recreational Drugs Have You Used? None MIGRATION.0301 871633 Information not available 12/31/2022 What Is The Highest Grade Or Level Of School You Have Completed Or The Highest Degree You Have Received? LM81612-3 MIGRATION.030 618263 Information not available 12/31/2022 Have There Been Any Changes To Your Family Or Social Situation? No MIGRATION.0301 842727 Information not available 12/31/2022 What Is The Fluoride Status Of Your Home? Unknown MIGRATION.0301 736207 Information not available 12/31/2022 When Did You Quit Smoking? 1-5yearssincelastc igarette MIGRATION.0301 187907 Information not available 12/31/2022 Are There Any Guns Present In Your Home? No MIGRATION.0301 724277 Information not available 12/31/2022 Do You Use Insect Repellent Routinely? No MIGRATION.0301 728395 Information not available 12/31/2022 Where Do You Live? [place]House MIGRATION.0301 579560 Information not available 12/31/2022 Do You Have A Medical Power Of Rn Navigator? No MIGRATION.0301 598368 Information not available 12/31/2022 What Was The Date Of Your Most Recent Tobacco Screening? 11/09/2023 [email or web address] Information not available 11/09/2023 Do You Have Any Pets? Yes MIGRATION.0301 042489 Information not available 12/31/2022 What Is Your Relationship Status? MIGRATION.0301 578472 Information not available 12/31/2022 Do You Use Your Seat Belt Or Car Seat Routinely? Yes MIGRATION.0301 604947 Information not available 12/31/2022 Do You Have Smoke And Carbon Monoxide Detectors In Your Home? Yes MIGRATION.0301 909135 Information not available 12/31/2022 At What Age Did You Start Smoking Tobacco? 18 MIGRATION.0301 073519 Information not available 12/31/2022 Are You Passively Exposed To Smoke? No MIGRATION.0301 901498 Information not available 12/31/2022 Are There Any Smokers In Your House? No MIGRATION.0301 960100 Information not available 12/31/2022 How Much Tobacco Do You Smoke? No Formerly 1 Ppd MIGRATION.0301 985546 Information not available 12/31/2022 What Types Of Sporting Activities Do You Participate In? None MIGRATION.0301 044233 Information not available 12/31/2022 Do You Use Sunscreen Routinely? Yes MIGRATION.0301 606513 Information not available 12/31/2022 Has Tobacco Cessation Counseling Been Provided? No MIGRATION.0301 607771 Information not available 12/31/2022 Have You Recently Traveled Abroad? No MIGRATION.0301 064408 Information not available 12/31/2022 Do You Have Difficulty Walking Or Climbing Stairs? No MIGRATION.0301 167213 Information not available 12/31/2022 Do You Have Any Dietary Restrictions? No MIGRATION.0301 050954 Information not available 12/31/2022 Sex: Male Functional Status Question Answer Note LastModified by [employer] ion Details LastModified Time Do you use any illicit or recreational drugs? No MIGRATION.134583 2849 Information not available 12/31/2022 Do you or have you ever used any other forms of tobacco or nicotine? No MIGRATION.706929 3746 Information not available 12/31/2022 What is your level of alcohol consumption? None MIGRATION.976338 8426 Information not available 12/31/2022 Do you or have you ever used smokeless tobacco? Never used smokeless tobacco MIGRATION.981215 4546 Information not available 12/31/2022 Do you have transportation difficulties? No MIGRATION.712320 3613 Information not available 12/31/2022 Are you able to walk? YESWOREST MIGRATION.974783 5210 Information not available 12/31/2022 Do you have difficulty doing errands alone? No MIGRATION.528213 7581 Information not available 12/31/2022 Are you able to care for yourself? 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 No MIGRATION.867938 8182 Information not available 12/31/2022 Do you or have you ever used e-cigarettes or vape? Never used electronic cigarettes MIGRATION.373497 1063 Information not available 12/31/2022 What is your exercise level? Occasional MIGRATION.335888 4000 Information not available 12/31/2022 Mental Status Question Answer Note LastModified by Organizat ion Details LastModified Time Do you feel stressed (tense, restless, nervous, or anxious, or unable to sleep at night)? [id number] MIGRATION.30487504 26 Information not available 12/31/2022 Do you have difficulty concentrating, remembering or making decisions? No MIGRATION.72566168 26 Information not available 12/31/2022 Family History Relationship Description Onset Age of this Age Resolved Age Notes LastModified by Organization Details LastModified Time Mother Malignant tumor of breast MIGRATION.589 [id number] Not available 12/31/2022 03:18:58 Father Malignant neoplastic disease MIGRATION.583 [id number] Not available 12/31/2022 03:18:58 Notes:blood clots in legs an d lungs-Father Medical History Condition Response NERVE DISEASE N BLINDNESS N RHEUMATIC FEVER N KIDNEY STONES N BLADDER PROBLEMS N MRSA N OTHER # 1 N POLIO N LUNG DISEASE/DISORDER Y HISTORY OF DRUG ABUSE N COPD N RADIATION / CHEMOTHERAPY Y Other # 2 N BLOOD DISEASES N [...] HAVE YOU BEEN HOSPITALIZED OR SEEN IN [facility] IN THE PAST YEAR ? N ATHEROSCLEROSIS [...] virus, trivalent, preservative 3 completed Not Available [facility] 12/31/2022 03:35:17 COVID-19, mRNA, LNP-S, PF, 100 mcg/0.5mL dose or 50 mcg/0.25mL dose 2 completed Not Available [facility] 12/31/2022 03:35:17 Influenza, high-dose, trivalent, PF 9 completed Not Available [facility] 12/31/2022 03:35:17 Influenza, high-dose, trivalent, PF 8 completed Not Available [facility] 12/31/2022 03:35:17 COVID-19, mRNA, LNP-S, PF, 100 mcg/0.5mL dose or 50 mcg/0.25mL dose 1 completed Not Available [facility] 12/31/2022 03:35:17 COVID-19, mRNA, LNP-S, PF, 100 mcg/0.5mL dose or 50 mcg/0.25mL dose 1 completed Not Available [facility] 12/31/2022 03:35:17 Influenza, high-dose, quadrivalent, PF 0 completed Not Available [facility] 12/31/2022 03:35:17 influenza, unspecified formulation 4 completed Not Available [facility] 12/31/2022 03:35:17 Influenza, split virus, trivalent, preservative 3 completed Not Available [facility] 12/31/2022 03:35:17 Influenza, high-dose, quadrivalent, PF 2 completed Not Available [facility] 12/31/2022 03:35:17 Influenza, high-dose, quadrivalent, PF 1 completed Not Available [facility] 12/31/2022 03:35:18 Influenza, high-dose, trivalent, PF 7 completed Not Available [facility] 12/31/2022 03:35:18 Influenza, split virus, quadrivalent, PF 5 completed Not Available [facility] 12/31/2022 03:35:18 Influenza, high-dose, quadrivalent, PF 3 completed Bubba Alcala MD [address] [place] [address], [address] [address], [place], [address], [facility] 08/16/2023 17:35:03 Past Encounters Encounter ID Performer Location Encounter Start Date Encounter Closed Date Diagnosis/Indication Diagnosis SNOMED-CT Code Diagnosis ICD10 Code Diagnosis Note [id number] Bubba Alcala MD [facility] Internal Med [facility] [address] [address] 02/06/2021 00:00:00 02/06/2021 22:55:37 [id number] Lon Tomas MD [facility]_[address] [address] 04/29/2021 00:00:00 04/29/2021 13:13:52 [id number] Bubba Alcala MD [facility] Internal Med [facility] [address] [place] [address] 05/07/2021 00:00:00 05/12/2021 17:07:15 [id number] Lon Tomas MD S_[address] [address] 06/10/2021 00:00:00 06/10/2021 12:22:16 [id number] Bubba Alcala MD [facility] Internal Med [facility] [address] [place], [place] [address] [address] 06/27/2021 00:00:00 07/21/2021 17:18:22 [id number] Bubba Alcala MD [facility] Internal Med [facility] 15 2043 [facility]., [facility] 15 [place] [address] 08/02/2021 00:00:00 08/03/2021 15:06:58 [id number] Bubba Alcala MD [facility] Internal Med [facility] 15 2043 [facility], [address] [address] 09/04/2021 00:00:00 09/06/2021 22:49:18 [id number] Bubba Alcala MD [facility] Internal Med [facility] [address] [address] 12/03/2021 00:00:00 12/07/2021 21:41:41 [id number] MD DAVID D[facility] [place] [address], [place] [address] [place] [address] 12/09/2021 00:00:00 12/09/2021 12:12:14 [id number] Bubba Alcala MD [facility] Internal Med [facility] [address] [address] 03/04/2022 00:00:00 03/04/2022 23:32:54 [id number] MD DAVID [facility] [address] [place] [address] 04/28/2022 00:00:00 04/28/2022 12:17:36 [id number] Bubba Alcala MD [facility] Internal Med [facility] 15 2043 [facility], [address] [address] 05/06/2022 00:00:00 05/06/2022 20:22:12 [id number] Ubaldo Weber MD [facility] [place] [address] [facility] [address] [place] [address] 05/22/2022 00:00:00 05/22/2022 15:18:36 [id number] Bubba Alcala MD [facility] Internal Med [address] [facility], [facility] [place] [address] 06/16/2022 00:00:00 06/16/2022 21:38:04 [id number] Lon Tomas MD [facility] [address] [place] [address] 08/04/2022 00:00:00 08/04/2022 11:58:54 [id number] Bubba Alcala MD [facility] Internal Med [facility] 2043 [facility], [address] [address] 09/22/2022 00:00:00 09/27/2022 17:21:44 [id number] Lon Tomas MD [facility] [address] [place] [address] 11/10/2022 00:00:00 11/10/2022 12:11:08 [id number] Trung Buenrostro MD S_GMG [address] [place] [address] 11/20/2022 00:00:00 11/20/2022 11:41:26 [id number] MD GURPREET Herbert_[facility] [address] [address] 12/16/2022 00:00:00 12/16/2022 10:24:20 [id number] Bubba Alcala MD [facility] Internal Med [facility] [address] [address] 12/17/2022 00:00:00 12/17/2022 21:55:25 [id number] Trung Buenrostro MD [facility] [address] [address] 01/13/2023 09:50:12 01/13/2023 10:25:20 Pain in right sacroiliac joint [id number] M53.3 Pain of ri ght hip joint 0172870052 57739 M25.551 [id number] MD GURPREET [facility] [address] [address] 02/10/2023 10:21:30 02/10/2023 11:07:04 Neck pain 81952919 M54.2 Spinal miguel a nosis in cervical region 71334211 M48.02 [id number] John Mas MD [facility] [address] [address] 02/11/2023 09:16:51 02/11/2023 10:11:45 Malignant neoplasm of prostate [id number] C61 :-TREATMEN T HISTORY:2012 - RALP (Dr Zepeda at [facility]) - GS 3+4=7, pT3a03/2022 - [facility] IMRT + 6 mos ADT (PSA 0.18) PLAN:-q3mo s PSA through 01/2024, then q6mos through 12/2024, then annual thereafter Hormone se nsitive prostate cancer 773218719 Z19.1 Increased frequency of urination 557028986 R35.0 :Intermitt ently check UA and PVRContinu e Myrbetriq 25mg daily [id number] Bubba Alcala MD [facility] Internal Med [facility] [address] [address] 04/22/2023 14:51:02 04/22/2023 16:05:43 Anticoagulant therapy 363693373 Z79.01 Spinal miguel a nosis in cervical region 61720811 M48.02 Chronic pain syndrome 37 1135016 G89.4 [id number] Bubba Alcala MD [facility] Internal Med [facility] [address] [address] 05/06/2023 10:45:26 05/06/2023 10:59:29 Anticoagulant therapy 142236612 Z79.01 [id number] John Mas MD [facility] [address] [address] 05/13/2023 11:09:20 05/13/2023 11:47:48 Malignant neoplasm of prostate [id number] C61 :-TREATMEN T HISTORY:2012 - RALP (Dr Zepeda at [facility]) - GS 3+4=7, pT3a03/2022 - [facility] IMRT + 6 mos ADT (PSA 0.18) PLAN:-q3mo s PSA through 01/2024, then q6mos through 12/2024, then annual thereafter Hormone se nsitive prostate cancer 692885059 Z19.1 Increased frequency of urination 626380018 R35.0 :Intermitt ently check UA and PVRContinu e Myrbetriq 25mg daily [id number] Bubba Alcala MD [facility] Internal Med [facility] [address] [facility] 15 [place] [address] 08/04/2023 14:46:38 08/04/2023 15:49:09 Administration of influenza vaccine 37777419 Z23 Anticoagulant therapy 18 4574897 Z79.01 Cholesterol screening 27 6613568 Z13.220 Screening for cardiovascular system disease 661919953 Z13.6 Nonischemi c congestive cardiomyopathy 2768725985 04 I42.0 Chronic ki dney disease stage 3 885370475 N18.30 Spinal miguel a nosis in cervical region 46244233 M48.02 Chronic de ep venous thrombosis of lower extremity 0567373715 52122 I82.509 History of pulmonary embolus 204935307 Z86.469 [id number] Jeremy Grijalva MD [facility] [address] [place] [address] 09/29/2023 10:39:27 09/29/2023 11:13:50 Pain of left wrist 3895812289 38964 M25.532 Arthritis of first carpometacarpal joint of left hand 7935529066 161666 M13.842 Sprain of left wrist 286 9147658 2056820 S63.502A [id number] Bubba Alcala MD [facility] Internal Med [place] [facility] [address] [facility] 15 [place] [address] 11/09/2023 15:28:26 11/09/2023 16:55:32 Anticoagulant therapy 863207242 Z79.01 Rectal hemorrhage 718196 02 K62.5 Hyperlipidemia 28558613 E78.5 Long-term drug therapy 856751890 Z79.899 Chronic de ep venous thrombosis of lower extremity 5975517781 85952 I82.509 Chronic ki dney disease stage 3 404095995 N18.30 History of malignant neoplasm of prostate 928756215 Z85.46 History of pulmonary embolus 622084885 Z86.711 Nonischemi c congestive cardiomyopathy 2406008936 04 I42.0 Health Concerns Section Related Observation LastModified by Organization Detai ls LastModified Time None Recorded Concern Status LastModified by Organization Details LastModified Time None Recorded Advance Directives Directive N: papers provided Payers Insurance Date Sequence Insurance Name Policy Number Policy Abbasi Covered Member ID Abbasi Member ID Guarantor Name 12/04/2023 1 [facility] (MEDICARE REPLACEMENT/A DVANTAGE - HMO) [id number] Bernnen Olson [id number] Brennen Olson Notes Date Note Type Note Provider Name and Address Organization Details Recorded Time 05/13/2023 text/html :02/11/2023 ORIGI NAL HPI - Patient peviously seen by Dr. Tomas, here to establish with me. Takes Myrbetriq 25mg for LUTS -INITIAL DIAGNOSIS/STAGE: TRUSBx = Unknown -TREATMENT HISTORY:05/2013 - RALP (Dr Zepeda at [facility]) - GS 3+4=7, pT3a5/2021 - [facility] IMRT [...] MD [address], [address], [place], [address], [place] - [facility] [employer] 05/13/2023 11:48:16 08/04/2023 text/html cervical spinal stenosis no gait problems. Heart failure with reduced ejection fraction he has not had any decompensation symptomsCervical spinal stenosis his pain is fine is no myelopathy symptoms. Rhinitis stable with fluticasone. CKD 3 no new symptoms referable to thatHistory of PE INR 2.5 Bubba Alcala MD [address], [address], [place], [address], [employer] 08/16/2023 17:35:06 09/29/2023 text/html Patient returns with [...] the patient. BENEDICT Chase [address], [facility] [address], [place], [address], [employer] 09/29/2023 11:27:08 11/09/2023 text/html cervical spinal stenosis [...] red Bubba Alcala MD [address], [facility] [address], [place], [address], [employer] 11/09/2023 21:21:39
--- OUTSIDE RECORDS SUMMARY | 2025-05-22 15:48 | XMS_ITS | Encounter Summary ---
Author Organization [facility] Address [address] [place] [address] Care Team Providers Care Beauty Parlor Cleaner Name Role Phone Jas Alcala MD Primary Care Provider + [phone] Lucio Rosas MD Unavailable Bianca Hunter MD Unavailable + [phone] Hero Pinedo MD Unavailable [phone] Jas Alcala MD Primary Care Provider + [phone] Lon Tomas MD Unavailable [phone] Jaycee Teresa MD Unavailable [phone] Encounter Details Date Type Department Care Team (Late st Contact Info) Description 05/07/2022 Orders Only [facility] [address] [place] [address] Bryon Potter MD [address] [place], [place] [id number] Social History Tobacco Use Types Packs/Day Years [...] on file 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 Gender Identity Not on file Sexual Orientation Not on file 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 [address] [place] [address] Consulting Physician Gastroenterology 11/28/[address] [facility] [address] [place] [address] Medical Oncologist/Corrosion Control Engineer Medical Oncology 12/07/24 Hero Pinedo MD [address] [place] [address] Radiation Oncologist Radiation Oncology 12/28/24 Lon Tomas MD [address] [place] [address] Consulting Physician Urology 01/04/25 Jaycee Teresa MD [address] [place] [address] Consulting Physician Cardiology 01/09/25 documented as of this encounter
--- OUTSIDE RECORDS SUMMARY | 2025-05-22 15:48 | XMS_ITS | Encounter Summary ---
Author Organization [facility] Address [address] [place] [address] Care Team Providers Care Livestock Feeder Name Role Phone Lucio Rosas MD Unavailable Bianca Hunter MD Unavailable + [phone] Hero Pinedo MD Unavailable [phone] Jas Alcala MD Primary Care Provider + [phone] Lon Tomas MD Unavailable [phone] Jaycee Teresa MD Unavailable [phone] Encounter Details Date Type Department Care Team (Latest Contact Info) Description 05/19/2025 Results Follow-Up [facility] Gastroenterology at [address] [place] [address] Lucio Rosas MD [address] [place] [address] [address] [place] [address] Surgical pathology Social History Tobacco Use Types Packs/Day Years [...] on file 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 Gender Identity Not on file Sexual Orientation Not on file 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 Not on file Not on file Retired Not on file Not on file Not on file documented as of this encounter Plan of Treatment Not on file documented as of this encounter Visit Diagnoses Not on filedocumented in this encounter Care Teams Livestock Feeder Relationship Specialty Start Date End Date Jas Alcala MD [address] [place] [address] PCP - General Internal Medicine 01/04/25 Lucio Rosas MD [facility] [address] [place] [address] Consulting Physician Gastroenterology 11/28/24 Bianca Hunter MD [address] [facility] [address] [place] [address] Medical Oncologist/Metal Sprayer Production Medical Oncology 12/07/24 Hero Pinedo MD [address] [place] [address] Radiation Oncologist Radiation Oncology 12/28/24 Lon Tomas MD [address] [place] [address] Consulting Physician Urology 01/04/25 Jaycee Teresa MD [address] [place] [address] Consulting Physician Cardiology 01/09/25 documented as of this encounter
--- OUTSIDE RECORDS SUMMARY | 2025-05-22 15:49 | XMS_ITS | Referral Summary ---
Author Organization [facility] Address [address] [place] [address] Care Team Providers Care Data Management Name Role Phone Lucio Rosas MD Unavailable Bianca Hunter MD Unavailable [phone] Hero Pinedo MD Unavailable [phone] Jas Alcala MD Primary Care Provider + [phone] Lon Tomas MD Unavailable [phone] Jaycee Teresa MD Unavailable [phone] Encounters Date Type Department Care Team Description 5 Orders Only [facility] [address] [place] [address] [address] [place] [address] Charlie Juarez MD Malignant neoplasm of lower third of esophagus (HCC) (Primary Dx) 5 Telephone [facility] [address] [facility] [address] [place] [address] Reinaldo Little RMA 5 Results Follow-Up [facility] Gastroenterology at [address] [place] [phone] Lucio Rosas MD Surgical pathology 5 Telephone [facility] Floor 5 [place] [address] Lorie Little NP 5 Telephone [facility] Gastroenterology at [address] [place] [phone] Lucio Rosas MD 5 Orders Only [facility] Gastroenterology at [address] [place] [phone] Lucio Rosas MD Gastric ulcer, unspecified chronicity, unspecified whether gastric ulcer hemorrhage or perforation present (Primary Dx) 5 Telephone [facility] Gastroenterology at [address] [place] [phone] Lucio Rosas MD 5 9:00 AM CDT Clinical Support [facility] at [address] [address] Anemia, unspecified type; History of pulmonary embolism 5 12:00 PM CDT Infusion [facility] at [address] [place] [address] Anemia, unspecified type (Primary Dx); History of pulmonary embolism 5 10:43 AM CDT Anesthesia Event [facility] [address] [place] [address] Hal [place] MD 5 10:30 AM CDT - 5 11:00 AM CDT Surgery [facility] [address] [place] [address] Lucio Rosas MD ESOPHAGOGASTRODUODENOSCOPY BIOPSY 5 9:15 AM CDT - 5 11:35 AM CDT Hospital Encounter [facility] [address] [place] [address] Lucio Rosas MD Malignant neoplasm of lower third of esophagus (HCC) Discharge Disposition: Discharge to home or self care 5 Telephone [facility] [address] [facility] [address] [place] [address] Reinaldo Little RMA 5 Orders Only [facility] [address] [facility] [address] [place] [address] Charlie Juarez MD Malignant neoplasm of lower third of esophagus (HCC) (Primary Dx) 5 Telephone [facility] Oncology [address] [place] [address] [address] [place] [address] Roseanna Roa 5 9:15 AM CDT Office Visit [facility] Surgery [address] [place] [address] [address] [place] [address] Charlie Juarez MD Malignant neoplasm of lower third of esophagus (HCC) (Primary Dx) 5 10:45 AM CDT Office Visit [facility] Oncology [address] [place] [address] [address] [place] [address] Bianca Hunter MD Malignant neoplasm of lower third of esophagus (HCC) (Primary Dx) 5 9:00 AM CDT Clinical Support [facility] at [address] [address] Anemia, unspecified type; History of pulmonary embolism; Malignant neoplasm of lower third of esophagus (HCC) 5 12:00 PM CDT Infusion [facility] at [address] [place] [address] Anemia, unspecified type (Primary Dx); History of pulmonary embolism 5 Orders Only [facility] Gastroenterology at [address] [place] [address] Lucio Rosas MD Malignant neoplasm of lower third of esophagus (HCC) (Primary Dx) 5 2:30 PM CDT Clinical Support [facility] Medical Office Building 2 Radiation Oncology [address] [place] [address] Malignant neoplasm of lower third of esophagus (HCC) (Primary Dx) 5 9:00 AM CDT Clinical Support [facility] at [address] [address] Anemia, unspecified type; History of pulmonary embolism 5 12:00 PM CDT Infusion [facility] at [address] [place] [address] Anemia, unspecified type (Primary Dx); History of pulmonary embolism 5 10:00 AM CDT Office Visit [facility] Medical Office Building 2 Radiation Oncology [address] [place] [address] Hero Pinedo MD Malignant neoplasm of lower third of esophagus (HCC) (Primary Dx) 5 8:09 AM CDT - 5 11:59 PM CDT Hospital Encounter [facility] Building [address] [place] [address] Malignant neoplasm of lower third of esophagus (HCC) Discharge Disposition: Discharge to home or self care 5 10:45 AM CDT Infusion [facility] at [address] [address] Malignant neoplasm of lower third of esophagus (HCC) (Primary Dx); Anemia, unspecified type 5 Orders Only [facility] Oncology [address] [place] [phone] Meme Dean, RN Anemia, unspecified type (Primary Dx) 5 9:45 AM CDT Clinical Support [facility] at [address] [address] Anemia, unspecified type; History of pulmonary embolism 5 Telephone [facility] at [address] [address] Francie Hassan RN 5 Orders Only [facility] Hematology [facility] [address] [address] Gertrude Zhang Anemia, unspecified type (Primary Dx) 5 9:00 AM CDT Clinical Support [facility] at [address] [address] Anemia, unspecified type; History of pulmonary embolism 5 Telephone [facility] at [address] [place] [address] Lalitha Salcedo, WILBER 5 9:00 AM CDT Clinical Support [facility] at [address] [address] Anemia, unspecified type; History of pulmonary embolism 5 Telephone [facility] Oncology [address] [place] [phone] Georgette Velasco RN 5 12:30 PM CDT Clinical Support [facility] at [address] [address] Malignant neoplasm of lower third of esophagus (HCC); Anemia, unspecified type; History of pulmonary embolism 5 1:00 PM CDT Office Visit [facility] Oncology [address] [place] [phone] Bianca Hunter MD Malignant neoplasm of lower third of esophagus (HCC) (Primary Dx) 5 Completion of Therapy [facility] Medical Office Building 2 Radiation Oncology [address] [place] [address] Hero Pinedo MD 5 Telephone [facility] Oncology [address] [place] [address] MARIA TERESA Fang [phone] Bianca Hunter MD INR results 5 Orders Only RAD ONC TREATMENTS Miscellaneou s, Not In File 5 11:30 AM CDT Treatment [facility] Building 2 Radiation Oncology [address] [place] [address] Hero Pinedo MD 5 Telephone [facility] Bone Marrow Transplant [address] [place] [phone] Ceci Antony NP 5 3:00 PM CDT Lab [facility] at [address] [address] 5 OTV [facility] Building 2 Radiation Oncology [address] [place] [address] Hero Pinedo MD 5 Orders Only RAD ONC TREATMENTS Miscellaneou s, Not In File 5 12:30 PM CDT Infusion [facility] at [address] [address] Malignant neoplasm of lower third of esophagus (HCC) (Primary Dx) 5 11:30 AM CDT Treatment [facility] Building 2 Radiation Oncology [address] [place] [address] 5 Orders Only RAD ONC TREATMENTS Miscellaneou s, Not In File 5 9:15 AM CDT Clinical Support [facility] at [address] [address] Malignant neoplasm of lower third of esophagus (HCC); Abnormal coagulation profile 5 9:45 AM CDT Office Visit [facility] [address] [place] [phone] Bianca Hunter MD Malignant neoplasm of lower third of esophagus (HCC) (Primary Dx); Abnormal coagulation profile 5 11:30 AM CDT Treatment [facility] Building 2 Radiation Oncology [address] [place] [address] Hero Pinedo MD 5 11:35 AM CDT Treatment [facility] Building 2 Radiation Oncology [address] [place] [address] Hero Pinedo MD 5 Orders Only [facility] Building 2 Radiation Oncology [address] [place] [address] Hero Pinedo MD 5 Orders Only [facility] Oncology [address] [place] [address] 180 [place] [address] Meme Dean RN 5 Orders Only [facility] Office Building 2 Radiation Oncology [address] [place] [address] Hero Pinedo MD Malignant neoplasm of lower third of esophagus (HCC) (Primary Dx) 5 Orders Only [facility] Building 2 Radiation Oncology [address] [place] [address] Hero Pinedo MD 5 Orders Only RAD ONC TREATMENTS Miscellaneou s, Not In File 5 12:15 PM CDT [facility] at [address] [place] [address] Malignant neoplasm of lower third of esophagus (HCC) (Primary Dx) 5 Orders Only [facility] Building 2 Radiation Oncology [address] [place] [address] Hero Pinedo MD Malignant neoplasm of lower third of esophagus (HCC) (Primary Dx) 5 11:30 AM CDT Treatment [facility] Building 2 Radiation Oncology [address] [place] [address] 5 Orders Only RAD ONC TREATMENTS Miscellaneou s, Not In File 5 11:30 AM CDT Treatment [facility] Building 2 Radiation Oncology [address] [place] [address] 5 Orders Only RAD ONC TREATMENTS Miscellaneou s, Not In File 5 Orders Only [facility] Oncology [address] [place] [address] [address] [place] [address] Meme Dean, WILBER 5 11:30 AM CDT Infusion [facility] at [address] [place] [address] Malignant neoplasm of lower third of esophagus (HCC) (Primary Dx) 5 Orders Only [facility] Oncology [address] [place] [address] [address] [place] [phone] Meme Dean, RN Malignant neoplasm of lower third of esophagus (HCC) (Primary Dx) 5 2:30 PM CDT Treatment [facility] Building 2 Radiation Oncology [address] [place] [phone] from Last 3 Months Allergies Active Allergy [...] 1200 mL 11 5 05/10/20 26 Active sucralfate (CARAFATE) 1 gram tabletIndication s:Gastric ulcer, unspecified chronicity, unspecified whether gastric ulcer hemorrhage or perforation present Take 1 tablet (1 g total) by mouth 4 (four) times a day Take 1 hour before meals and at bedtime 120 tablet 1 5 05/15/20 26 Active Active Problems Patient Care Coordination No te Formatting of this note migh t be different from the original. Referrring provider: Dr. Lucio Rosas Mr. Brennen Olson is a 74-year-old with esophageal cancer. [...] He also has a history of an DE and PE. 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 -Pathology discuss in detail and all questions were answered -Refer for EUS -Refer to Oncology and Cardiothoracic surgery Miller's esophagus with high grade dysplasia Assessment & Plan (11/25/2024 9:41 AM MACHINE OPERATOR HOP WORKER): EGD September 2024 with irregular Z-line and gastric ulcers. Pathology with Barretts esophagus, indefinite for dysplasia. Repeat EGD November 2024 with Barretts esophagus, pathology with high-grade dysplasia. -Continue pantoprazole 40 mg p.o. b.i.d. History of colon polyps 11/25/2024 Assessment & Plan (11/25/2024 9:42 AM MACHINE OPERATOR HOP WORKER): Colonoscopy November 2024 with multiple tubular adenomas. -Repeat colonoscopy November 2027 Gastric ulcer 09/23/2024 Anemia due to blood loss 09/23/2024 Rectal bleeding 08/22/2024 Radiation proctitis 08/22/2024 Assessment & Plan (11/25/2024 9:41 AM MACHINE OPERATOR HOP WORKER): Colonoscopy November 2024 with severe radiation proctitis status post APC. -Consider flex sig with APC, patient advised to call office if rectal bleeding gets worse Eosinophilia 02/22/2024 Iron deficiency anemia, unspecified 02/22/2024 Anemia 02/22/2024 VT (ventricular tachycardia) 05/09/2022 Overview (05/09/2022): Added automatically from request for surgery [id number] Lower urinary tract symptoms (LUTS) 05/24/2020 Malignant neoplasm of prostate 04/25/2013 Immunizations Immunization Administration Dates Next Due Influenza, Unspecified 08/02/2018 Social History Tobacco Use Types Packs/Day Years Used Date Smoking Tobacco: Former Cigarettes 1 25 2019 Smokeless Tobacco: Never Tobacco Cessation:Counseling Given: [...] on file Legal Sex Male 9:38 AM MACHINE OPERATOR HOP WORKER Gender Identity Not on file Sexual Orientation Not on file 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 Not on file Not on file Not [...] on file Medical Devices Implanted Type Area Tax Clerk Device Identifier Shelf Expiration Date Model / Serial / Lot Screws And Rods Spine Lumbar [employer] Power Port 8fr [id number] - [id number] Implanted:Qty: 1 on 01/11/2025 by Linda Cardenas PA at [facility] [employer] 08/29/2029 [id number] / / [id number] Procedures Procedure Name Priority Date/Time Associated Diagnosis [...] Anemia, unspecified type History of pulmonary embolism SURGICAL PATHOLOGY Routine 05/10/2025 10:54 AM CDT Malignant neoplasm of lower third of esophagus (HCC) EGD 05/10/2025 10:45 AM CDT ESOPHAGOGASTRODUODENOSCOPY BIOPSY [...] ONC ARIA SESSION SUMMARY 2:[address] CHEST ABDOMEN PELVIS W CONTRAST Schedule Routine, Read Routine (OP Routine) 12/13/2024 7:09 AM MACHINE OPERATOR HOP WORKER Malignant neoplasm of lower third of esophagus (HCC) COLONOSCOPY 11/17/2024 9:34 AM MACHINE OPERATOR HOP WORKER from Last 3 Months or Most Recently Relevant to Health Maintenance Results * Transfuse RBC (05/11/2025 2:28 PM CDT) Blood Francisco Jones DO BLOOD TRANSFUSION ORDERABLES Final Result * Prepare RBC: 1 Units (05/11/2025 10:01 AM CDT) Units requested 1 Comment:Testing performed by : [address] [address] Units requested Ready [facility] Comment:Testing performed by : [address] [address] Unit Number [id number] Product code [id number] [facility] Blood Expiration Date [id number] [facility] Product Blood Type (for scanning) 6200 [facility] Product Blood Type APOS [facility] Dispense Status DISPENSED [facility] Blood 05/11/2025 10:0 1 AM CDT 05/11/2025 10:01 AM CDT us Nena Cano NP BLOOD BANK PRODUCT ORDERABL ES Final Result [facility] [address] [facility] Department [place] [address] * (ABNORMAL) Differential, auto (05/11/2025 9:00 AM CDT) Neutrophil abs 2.24 1.50 - 6.50 K/cumm Comment:Testing performed by : [address] [address] Imm gran abs 0.02 0.00 - 0.10 K/cumm ISAAC Comment:Testing performed by : [address] [address] Lymphocyte abs 0.58(L) 0.80 - 3.30 K/cumm ISAAC Comment:Testing performed by : [address] [address] Monocyte abs 0.53 0.20 - 0.80 K/cumm ISAAC Comment:Testing performed by : [address] [address] Eosinophil abs 0.27 0.00 - 0.50 K/cumm ISAAC Comment:Testing performed by : [address] [address] Basophil abs 0.03 0.00 - 0.10 K/cumm ISAAC Comment:Testing performed by : [address] [address] Neutrophil pct 61.1 % [facility] Comment: Interpretive Data Percent cell count reference ranges are not reported, since discordance with absolute values may lead to misinterpretation of CBC data. Current Interpretive Data was last revised on 2018. Testing performed by: [address] [address] Imm gran pct 0.5 % [facility] Comment: Interpretive Data Percent cell count reference ranges are not reported, since discordance with absolute values may lead to misinterpretation of CBC data. Current Interpretive Data was last revised on 2018. Testing performed by: [address] [address] Lymphocyte pct 15.8 % [facility] Comment: Interpretive Data Percent cell count reference ranges are not reported, since discordance with absolute values may lead to misinterpretation of CBC data. Current Interpretive Data was last revised on 2018. Testing performed by: [address] [address] Monocyte pct 14.4 % [facility] Comment: Interpretive Data Percent cell count reference ranges are not reported, since discordance with absolute values may lead to misinterpretation of CBC data. Current Interpretive Data was last revised on 2018. Testing performed by: [address] [address] Eosinophil pct 7.4 % [facility] Comment: Interpretive Data Percent cell count reference ranges are not reported, since discordance with absolute values may lead to misinterpretation of CBC data. Current Interpretive Data was last revised on 2018. Testing performed by: [address] [address] Basophil pct 0.8 % [facility] Comment: Interpretive Data Percent cell count reference ranges are not reported, since discordance with absolute values may lead to misinterpretation of CBC data. Current Interpretive Data was last revised on 2018. Testing performed by: [address] [address] Blood 05/11/2025 9:00 AM CDT 05/11/2025 9:03 AM CDT us Nena Cano LACTATION NURSE LAB BLOOD ORDERABLES Final Result [facility] [address] [facility] Department [place] [address] * (ABNORMAL) Iron profile w/ IBC (05/11/2025 9:00 AM CDT) Pathologist [facility] Iron 73 50 - 150 mcg/dL Comment:Testing performed by : [address] [address] TIBC 241(L) 250 - 400 mcg/dL ISAAC Comment:Testing performed by : [address] [address] Transferrin saturation 30 20 - 50 % [facility] Comment:Testing performed by : [address] [address] Blood 05/11/2025 9:00 AM CDT 05/11/2025 9:35 AM CDT us Nena Cano LACTATION NURSE LAB BLOOD ORDERABLES Final Result [facility] [address] [facility] Department [place] [address] * (ABNORMAL) CBC with auto differential (05/11/2025 9:00 AM CDT) WBC 3.67(L) 3.80 - 9.90 K/cumm Comment:Testing performed by : [address] [address] Hgb 8.0(L) 13.0 - 17.5 g/dL IS[facility] Comment:Testing performed by : [address] [address] Hct 26.0(L) 38.9 - 50.3 % [facility] SERNA Comment:Testing performed by : [address] [address] Plt 184 150 - 400 K/cumm ISAAC Comment:Testing performed by : [address] [address] MPV 8.6(L) 9.1 - 12.3 fL [facility] Comment:Testing performed by : [address] [address] RBC 2.53(L) 4.30 - 5.80 M/cumm [facility] SERNA Comment:Testing performed by : [address] [address] MCV 102.8(H) 81.3 - 96.4 fL [facility] Comment:Testing performed by : [address] [place]., [address] MCH 31.6 27.1 - 33.3 pg [facility] Comment:Testing performed by : [address] [address] MCHC 30.8(L) 32.3 - 35.7 g/dL [facility] SERNA Comment:Testing performed by : [address] [address] RDW CV 17.3(H) 11.1 - 14.9 % [facility] Comment:Testing performed by : [address] [address] RDW SD 65.1(H) 35.7 - 48.1 fL [facility] Comment:Testing performed by : [address] [address] NRBC abs 0.00 0.00 - 0.01 K/cumm IS[facility]AC Comment:Testing performed by : [address], [address] ANC Prelim 2.24 1.50 - 6.50 K/cumm [facility] Comment: Interpretive Data The rapid ANC is a preliminary automated count and may vary from the final ANC (Neut Abs) reported in the WBC differential that follows. Current interpretive data was last revised 2025. Testing performed by: [address] [address] Blood 05/11/2025 9:00 AM CDT 05/11/2025 9:03 AM CDT us Nena Cano LACTATION NURSE LAB BLOOD ORDERABLES Final Result [facility] [address] [facility] Department [place] [address] * ABO/Rh (05/11/2025 9:00 AM CDT) ABO/Rh A Positive Comment:Testing performed by : [address], [address] Blood 05/11/2025 9:00 AM CDT 05/11/2025 9:33 AM CDT Narrative [facility] - 05/11/2025 9:59 AM CDT Has the patient had Daratumumab or Isatuximab in the past 6 months?->Unknown Nena Cano LACTATION NURSE LAB BLOOD BANK TEST ORDERAB LES Final Result Performing Organization Address [facility] de Phone Number [address] [address] * (ABNORMAL) Reticulocyte Count (05/11/2025 9:00 AM CDT) Retics, absolute 105(H) 20 - 87 K/cumm Comment:Testing performed by : [address] [address] Retics 4.1(H) 0.4 - 2.9 % [facility] Comment:Testing performed by : [address] [address] Reticulocyte Hgb 34.4 30.5 - 38.0 pg ISAAC Comment:Testing performed by : [address] [address] Blood 05/11/2025 9:00 AM CDT 05/11/2025 9:03 AM CDT Nena Cano LACTATION NURSE LAB BLOOD ORDERABLES Final Result Performing Organization Address [facility] de Phone Number [place] [id number] [facility] [place] [address] * Crossmatch (05/11/2025 9:00 AM CDT) Crossmatch Compatible [facility] Unit number for crossmatch [id number] [facility] Blood 05/11/2025 9:00 AM CDT 05/11/2025 9:33 AM CDT Jas Alcala MD LAB BLOOD BANK TEST ORDERABL ES Final Result Performing Organization Address [facility] de Phone Number [address] [address] * Antibody screen (05/11/2025 9:00 AM CDT) Divina, indirect, Gel Interpretation Negative ABSC Comment:Testing performed by : [address] [address] Blood 05/11/2025 9:0 0 AM CDT 05/11/2025 9:33 AM CDT Narrative [facility] - 05/11/2025 10:12 AM CDT Has the patient had Daratumumab or Isatuximab in the past 6 months?->Unknown Nena Cano NP LAB BLOOD BANK TEST ORDERAB LES Final Result Performing Organization Address [facility] de Phone Number [address] [address] * Ferritin (05/11/2025 9:00 AM CDT) Pathologist [facility] Ferritin 71 30 - 400 ng/mL Comment:Testing performed by : [address] [address] Blood 05/11/2025 9:00 AM CDT 05/11/2025 9:35 AM CDT Nena Cano LACTATION NURSE LAB BLOOD ORDERABLES Final Result Performing Organization Address [facility] Co de Phone Number [address] [address] * Surgical pathology (05/10/2025 10:54 AM CDT) Tissue (Esophageal biopsy) 05/10/2025 10:54 AM CDT Tissue specimen (specimen) (Esophageal biopsy) 05/10/2025 10:56 AM CDT Narrative PATHOLOGY [facility] - 05/17/2025 3:59 PM CDT [facility] Department of Pathology [address] [address] Note to Patients: This report may contain [...] Patient Name: BRENNEN OLSON : 1950 (Age: 75) Gender: M Address: [address] [place] [address] Hospital #: [id number] Service: Gastro Location: Patient Type: [facility] Taken: 05/10/2025 Received: 05/10/2025 Accessioned: 05/10/2025 Reported: 05/17/2025 Physician(s): Kvng Giraldo M.D. Diagnosis: A. Distal esophagus, biopsy - Residual adenocarcinoma. - Additional levels examined. B. Esophagus, ulcer at 35 cm, cold biopsy - Fragments of necroinflammatory debris. - No intestinal metaplasia is, dysplasia, or carcinoma identified. Diagnosis Comment: Part A was discussed and reviewed with Dr. Andressa Escoto who concurs with the above diagnosis. Bradley Wilcox M.D. Report Electronically Reviewed and Signed Out By Bradley Wilcox M.D. 05/17/2025 15:59:35 Specimen(s) Received: A: Distal esophageal biopsy rule out Miller's esophagus and esophageal cancer- cold biopsy B: Esophgeal ulcer biopsy at 35 cm-cold biopsy Microscopic Description: Microscopic examination is performed. Microscopic examination is performed. [id number] Distribution Clinical History: The patient is a 75-year-old man with a malignant neoplasm of the lower third of the esophagus. Operative procedure: Upper GI endoscopy with biopsy. Gross Description Received in two formalin jars labeled with the patient's identifiers. A. Labeled distal esophageal biopsy rule out Miller's esophagus and esophageal cancer-cold biopsy and consists of four prado tissue fragments each measuring 0.2 cm. Entirely submitted. Labeled A1. Jar 0. B. Labeled esophageal ulcer biopsy at 35 cm-cold biopsy and consists of two prado- white tissue fragments each measuring 0.2 cm. Entirely submitted. Labeled B1. Jar 0. jjb/05/10/2025 13:56 SHAD Gonzalez, BENEDICT (ASCP) Microscopic slide review and interpretation for this case was performed at [facility], Department of Surgical Pathology, [address] [facility] [address], [place] [id number], [place] [address] CLIA # [id number] us Lucio Rosas MD LAB PATHOLOGY ORDERABLES Final R esult PATHOLOGY [facility] * EGD (05/10/2025 10:45 AM CDT) Anatomical Region Laterality Modality Other Narrative Procedure Note Lucio Rosas MD - 05/10/2025 10:45 AM CDT [facility] GI ENDOSCOPY Patient Name: Brennen Olson Procedure Date: 05/10/2025 10:45 AM Date of : 1950 Admit Type: Outpatient Age: 75 Gender: Male Attending MD: Lucio Rosas M.D. Room: [facility] ENDOSCOPY ROOM 03 Note Status: [...] On: 05/10/2025 10:45 AM Recognized by the [employer] for promoting quality in endoscopy Lucio Rosas MD ENDOSCOPY PROCEDURES Final Resul t * (ABNORMAL) POC Blood Gas and Chemistries, Venous - (05/10/2025 10:13 AM CDT) pH,kwame POC 7.35 7.32 - 7.43 pCO2, kwame POC 40 40 - 50 mmHg [facility] pO2,kwame POC 32 mmHg [facility] Comment: Interpretive Data No reference range established. Current interpretive data was last revised 2020. HCO3, kwame (Calc) POC 22 20 - 30 mmol/L [facility] Base excess, kwame POC -3 mmol/L [facility] Comment: Interpretive Data No reference range established. Current interpretive data was last revised 2020. Hemoglobin, kwame POC 9.2(L) 13.0 - 17.5 g/dL [facility] Hematocrit, kwame POC 27.0(L) 38.9 - 50.3 % [facility] Sodium, kwame POC 141 135 - 145 mmol/L [facility] Potassium, kwame POC 4.4 3.3 - 4.9 mmol/L [facility] Comment: Interpretive Data This method is not able to assess for hemolysis, which may falsely increase potassium concentrations. If further testing is needed to evaluate this result, consider in-laboratory plasma potassium. Current Interpretive Data was last revised on 2022. Glucose, kwame POC 86 70 - 199 mg/dL [facility] Ionized Calcium, kwame POC 5.10 4.50 - 5.10 mg/dL [facility] Blood 05/10/2025 10:1 3 AM CDT 05/10/2025 10:13 AM CDT Lucio Rosas MD LAB POCT ORDERABLES - DEVICE Fin al Result Performing Organization Address City/[facility] Co de Phone Number [address] [place] [address] * Transfuse RBC (04/26/2025 2:25 PM CDT) Blood Bianca Hunter MD BLOOD TRANSFUSION OR DERABLES Final Result * Prepare RBC: 1 Units (04/26/2025 9:45 AM CDT) Units requested 1 Comment:Testing performed by : [facility], [address] [place] [address]., [address] Units requested Ready [facility] Comment:Testing performed by : [facility], [address] [place] [address]., [address] Unit Number [id number] Product code [id number] [facility] Blood Expiration Date 806196879917 [facility] Product Blood Type (for scanning) 6200 [facility] Product Blood Type APOS [facility] Dispense Status DISPENSED [facility] Blood 04/26/2025 9:45 AM CDT 04/26/2025 9:45 AM CDT Bianca Hunter MD BLOOD BANK PRODUCT O RDERABLES Final Result Performing Organization Address [facility] Co de Phone Number [address] [place] [address] * (ABNORMAL) eGFR (04/26/2025 9:01 AM CDT) [...] was last reviewed 2021. Testing performed by: [address] [address] Blood 04/26/2025 9:01 AM CDT 04/26/2025 9:02 AM CDT Bianca Hunter MD LAB BLOOD ORDERABLES Final Result [facility] [address] [facility] Department of Laboratories [place], [place] [id number] * (ABNORMAL) Differential, auto (04/26/2025 9:01 AM CDT) Neutrophil abs 2.29 1.50 - 6.50 K/cumm Comment:Testing performed by : [address] [address] Imm gran abs 0.02 0.00 - 0.10 K/cumm [facility] SERNA Comment:Testing performed by : [address] [address] Lymphocyte abs 0.68(L) 0.80 - 3.30 K/cumm [facility] SERNA Comment:Testing performed by : [address] [address] Monocyte abs 0.57 0.20 - 0.80 K/cumm [facility] Comment:Testing performed by : [address] [address] Eosinophil abs 0.26 0.00 - 0.50 K/cumm [facility] Comment:Testing performed by : [address], [place]., [address] Basophil abs 0.03 0.00 - 0.10 K/cumm [facility] Comment:Testing performed by : [address] [address] Neutrophil pct 59.4 % [facility] Comment: Interpretive Data Percent cell count reference ranges are not reported, since discordance with absolute values may lead to misinterpretation of CBC data. Current Interpretive Data was last revised on 2018. Testing performed by: [address] [address] Imm gran pct 0.5 % [facility] Comment: Interpretive Data Percent cell count reference ranges are not reported, since discordance with absolute values may lead to misinterpretation of CBC data. Current Interpretive Data was last revised on 2018. Testing performed by: [address] [address] Lymphocyte pct 17.7 % [facility] Comment: Interpretive Data Percent cell count reference ranges are not reported, since discordance with absolute values may lead to misinterpretation of CBC data. Current Interpretive Data was last revised on 2018. Testing performed by: [address] [address] Monocyte pct 14.8 % [facility] Comment: Interpretive Data Percent cell count reference ranges are not reported, since discordance with absolute values may lead to misinterpretation of CBC data. Current Interpretive Data was last revised on 2018. Testing performed by: [address] [address] Eosinophil pct 6.8 % [facility] Comment: Interpretive Data Percent cell count reference ranges are not reported, since discordance with absolute values may lead to misinterpretation of CBC data. Current Interpretive Data was last revised on 2018. Testing performed by: [address] [address] Basophil pct 0.8 % [facility] Comment: Interpretive Data Percent cell count reference ranges are not reported, since discordance with absolute values may lead to misinterpretation of CBC data. Current Interpretive Data was last revised on 2018. Testing performed by: [address] [address] Blood 04/26/2025 9:01 AM CDT 04/26/2025 9:02 AM CDT Nena Cano LACTATION NURSE LAB BLOOD ORDERABLES Final Result Performing Organization Address [facility] Co de Phone Number [address] [place] [address] * (ABNORMAL) Iron profile w/ IBC (04/26/2025 9:01 AM CDT) Iron 75 50 - 150 mcg/dL Comment:Testing performed by : [address] [address] TIBC 231(L) 250 - 400 mcg/dL [facility] Comment:Testing performed by : [address] [address] Transferrin saturation 32 20 - 50 % [facility] Comment:Testing performed by : [address] [address] Blood 04/26/2025 9:01 AM CDT 04/26/2025 9:51 AM CDT Nena Cano LACTATION NURSE LAB BLOOD ORDERABLES Final Result Performing Organization Address [facility] Co de Phone Number [address] [place] [address] * (ABNORMAL) CBC with auto differential (04/26/2025 9:01 AM CDT) WBC 3.85 3.80 - 9.90 K/cumm Comment:Testing performed by : [address] [address] Hgb 8.1(L) 13.0 - 17.5 g/dL [facility] Comment:Testing performed by : [address] [address] Hct 26.2(L) 38.9 - 50.3 % [facility] Comment:Testing performed by : [address] [address] Plt 199 150 - 400 K/cumm [facility] Comment:Testing performed by : [address] [address] MPV 8.2(L) 9.1 - 12.3 fL [facility] Comment:Testing performed by : [address], [address] RBC 2.64(L) 4.30 - 5.80 M/cumm [facility] Comment:Testing performed by : [address] [address] MCV 99.2(H) 81.3 - 96.4 fL [facility] Comment:Testing performed by : [address] [address] MCH 30.7 27.1 - 33.3 pg [facility] Comment:Testing performed by : [address] [address] MCHC 30.9(L) 32.3 - 35.7 g/dL [facility] Comment:Testing performed by : [address] [address] RDW CV 19.6(H) 11.1 - 14.9 % [facility] Comment:Testing performed by : [address] [address] RDW SD 70.4(H) 35.7 - 48.1 fL [facility] Comment:Testing performed by : [address] [address] NRBC abs 0.00 0.00 - 0.01 K/cumm [facility] Comment:Testing performed by : [address] [address] ANC Prelim 2.29 1.50 - 6.50 K/cumm [facility] Comment: Interpretive Data The rapid ANC is a preliminary automated count and may vary from the final ANC (Neut Abs) reported in the WBC differential that follows. Current interpretive data was last revised 2025. Testing performed by: [address] [address] Blood 04/26/2025 9:01 AM CDT 04/26/2025 9:02 AM CDT Nena Cano LAB BLOOD ORDERABLES Final Result Performing Organization Address [facility] Co de Phone Number [address] [address] * ABO/Rh (04/26/2025 9:01 AM CDT) ABO/Rh A Positive Comment:Testing performed by : [address] [address] Blood 04/26/2025 9:01 AM CDT 04/26/2025 9:44 AM CDT Narrative [facility] - 04/26/2025 10:36 AM CDT Has the patient had Daratumumab or Isatuximab in the past 6 months?->Unknown Nena Cano LAB BLOOD BANK TEST ORDERAB LES Final Result Performing Organization Address [facility] de Phone Number [address] [address] * (ABNORMAL) Reticulocyte Count (04/26/2025 9:01 AM CDT) Retics, absolute 126(H) 20 - 87 K/cumm Comment:Testing performed by : [address] [address] Retics 4.8(H) 0.4 - 2.9 % [facility] Comment:Testing performed by : [address] [address] Reticulocyte Hgb 32.6 30.5 - 38.0 pg [facility] Comment:Testing performed by : [facility], [address] [place] [address]., [address] Blood 04/26/2025 9:01 AM CDT 04/26/2025 9:02 AM CDT Nena Cano LACTATION NURSE LAB BLOOD ORDERABLES Final Result Performing Organization Address City/[facility]/ZIP Co de Phone Number [address] [place] [address] * Crossmatch (04/26/2025 9:01 AM CDT) Pathologist [facility] Crossmatch Compatible [facility] Unit number for crossmatch [id number] [facility] Blood 04/26/2025 9:01 AM CDT 04/26/2025 9:44 AM CDT Bianca Hunter MD LAB BLOOD BANK TEST ORDERABLES Final Result Performing Organization Address [facility] Co de Phone Number [address] [address] * Antibody screen (04/26/2025 9:01 AM CDT) Pathologist [facility] Divina, indirect, Gel Interpretation Negative [facility] Comment:Testing performed by : [facility], [address] [place] [address]., [address] Blood 04/26/2025 9:01 AM CDT 04/26/2025 9:44 AM CDT Narrative [facility] - 04/26/2025 10:36 AM CDT Has the patient had Daratumumab or Isatuximab in the past 6 months?->Unknown Nena Cano NP LAB BLOOD BANK TEST ORDERAB LES Final Result Performing Organization Address City/[facility]/ZIP Co de Phone Number [address] [place] [address] * Ferritin (04/26/2025 9:01 AM CDT) Ferritin 47 30 - 400 ng/mL Comment:Testing performed by : [address] [address] Blood 04/26/2025 9:01 AM CDT 04/26/2025 9:51 AM CDT Nena Mamta Jerome LACTATION NURSE LAB BLOOD ORDERABLES Final Result [facility] [address] [facility] Department [place] [address] * (ABNORMAL) Comprehensive metabolic panel (04/26/2025 9:01 AM CDT) Sodium 138 135 - 145 mmol/L Comment:Testing performed by : [address] [address] Potassium, pl 4.3 3.3 - 4.9 mmol/L [facility] Comment:Testing performed by : [address] [address] Chloride 107 97 - 110 mmol/L [facility] Comment:Testing performed by : [address] [address] CO2 22 22 - 32 mmol/L [facility] Comment:Testing performed by : [address] [address] Anion gap 9 2 - 15 mmol/L [facility] Comment:Testing performed by : [address] [address] BUN 17 6 - 25 mg/dL [facility] Comment:Testing performed by : [address] [address] Creatinine 1.60(H) 0.80 - 1.30 mg/dL [facility] Comment:Testing performed by : [address] [address] Glucose 92 70 - 199 mg/dL [facility] [...] was last revised 2022. Testing performed by: [address] [address] Calcium 9.2 8.5 - 10.3 mg/dL [facility] Comment:Testing performed by : [address] [address] Bilirubin, total 0.3 0.1 - 1.2 mg/dL [facility] Comment:Testing performed by : [address] [address] Protein, pl 6.3(L) 6.5 - 8.5 g/dL [facility] Comment:Testing performed by : [address] [address] Albumin 3.6 3.5 - 5.0 g/dL [facility] Comment:Testing performed by : [address] [address] Alk phos 58 40 - 130 Units/L [facility] Comment:Testing performed by : [address] [address] ALT 10 7 - 55 Units/L [facility] Comment:Testing performed by : [address] [address] AST 14 10 - 50 Units/L [facility] Comment:Testing performed by : [address] [address] Blood 04/26/2025 9:01 AM CDT 04/26/2025 9:02 AM CDT Bianca Hunter MD LAB BLOOD ORDERABLES Final Result [facility] [address] [facility] Department of Laboratories [place], [place] [id number] * Transfuse RBC (04/12/2025 2:07 PM CDT) Blood us Eli Toscano NP BLOOD TRANSFUSION OR DERABLES Final Result * Prepare RBC: 1 Units (04/12/2025 10:48 AM CDT) Units requested 1 Comment:Testing performed by : [address], [address] Units requested Ready [facility] Comment:Testing performed by : [address] [address] Unit Number [id number] Product code [id number] [facility] Blood Expiration Date [facility] Product Blood Type (for scanning) 6200 [facility] Product Blood Type APOS [facility] Dispense Status DISPENSED [facility] Blood 04/12/2025 10:4 8 AM CDT 04/12/2025 10:48 AM CDT us Bianca Hunter MD BLOOD BANK PRODUCT O RDERABLES Final Result [facility] [address] [facility] Department [place] [address] * Differential, auto (04/12/2025 9:09 AM CDT) Neutrophil abs 2.16 1.50 - 6.50 K/cumm Comment:Testing performed by : [address] [address] Imm gran abs 0.02 0.00 - 0.10 K/cumm [facility] Comment:Testing performed by : [address] [address] Lymphocyte abs 0.81 0.80 - 3.30 K/cumm [facility] Comment:Testing performed by : [address] [address] Monocyte abs 0.51 0.20 - 0.80 K/cumm [facility] Comment:Testing performed by : [address] [address] Eosinophil abs 0.19 0.00 - 0.50 K/cumm [facility] Comment:Testing performed by : [address] [address] Basophil abs 0.04 0.00 - 0.10 K/cumm [facility] Comment:Testing performed by : [address] [address] Neutrophil pct 57.9 % [facility] Comment: Interpretive Data Percent cell count reference ranges are not reported, since discordance with absolute values may lead to misinterpretation of CBC data. Current Interpretive Data was last revised on 2018. Testing performed by: [address] [address] Imm gran pct 0.5 % [facility] Comment: Interpretive Data Percent cell count reference ranges are not reported, since discordance with absolute values may lead to misinterpretation of CBC data. Current Interpretive Data was last revised on 2018. Testing performed by: [address] [address] Lymphocyte pct 21.7 % [facility] Comment: Interpretive Data Percent cell count reference ranges are not reported, since discordance with absolute values may lead to misinterpretation of CBC data. Current Interpretive Data was last revised on 2018. Testing performed by: [address] [address] Monocyte pct 13.7 % [facility] Comment: Interpretive Data Percent cell count reference ranges are not reported, since discordance with absolute values may lead to misinterpretation of CBC data. Current Interpretive Data was last revised on 2018. Testing performed by: [address] [address] Eosinophil pct 5.1 % [facility] Comment: Interpretive Data Percent cell count reference ranges are not reported, since discordance with absolute values may lead to misinterpretation of CBC data. Current Interpretive Data was last revised on 2018. Testing performed by: [address] [address] Basophil pct 1.1 % [facility] Comment: Interpretive Data Percent cell count reference ranges are not reported, since discordance with absolute values may lead to misinterpretation of CBC data. Current Interpretive Data was last revised on 2018. Testing performed by: [address] [address] Blood 04/12/2025 9:09 AM CDT 04/12/2025 9:10 AM CDT Nena Cano LACTATION NURSE LAB BLOOD ORDERABLES Final Result Performing Organization Address City/[facility] Co de Phone Number [facility] [address] [facility] Department [place] [address] * (ABNORMAL) Iron profile w/ IBC (04/12/2025 9:09 AM CDT) Pathologist [facility] Iron 104 50 - 150 mcg/dL Comment:Testing performed by : [address] [address] TIBC 226(L) 250 - 400 mcg/dL [facility] Comment:Testing performed by : [address] [address] Transferrin saturation 46 20 - 50 % [facility] Comment:Testing performed by : [address] [address] Blood 04/12/2025 9:09 AM CDT 04/12/2025 9:45 AM CDT Nena Cano LACTATION NURSE LAB BLOOD ORDERABLES Final Result Performing Organization Address City/[facility] Co de Phone Number [facility] [address] [facility] Department [place] [address] * (ABNORMAL) CBC with auto differential (04/12/2025 9:09 AM CDT) Pathologist [facility] WBC 3.73(L) 3.80 - 9.90 K/cumm Comment:Testing performed by : [address] [address] Hgb 7.9(L) 13.0 - 17.5 g/dL [facility] Comment:Testing performed by : [address] [address] Hct 25.0(L) 38.9 - 50.3 % [facility] Comment:Testing performed by : [address] [address] Plt 215 150 - 400 K/cumm [facility] Comment:Testing performed by : [address] [address] MPV 8.5(L) 9.1 - 12.3 fL [facility] Comment:Testing performed by : [address], [address] RBC 2.63(L) 4.30 - 5.80 M/cumm [facility] Comment:Testing performed by : [address], [address] MCV 95.1 81.3 - 96.4 fL [facility] Comment:Testing performed by : [address] [address] MCH 30.0 27.1 - 33.3 pg [facility] Comment:Testing performed by : [address] [address] MCHC 31.6(L) 32.3 - 35.7 g/dL [facility] Comment:Testing performed by : [address] [address] RDW CV 20.8(H) 11.1 - 14.9 % [facility] Comment:Testing performed by : [address], [address] RDW SD 71.6(H) 35.7 - 48.1 fL [facility] Comment:Testing performed by : [address] [address] NRBC abs 0.00 0.00 - 0.01 K/cumm [facility] Comment:Testing performed by : [address] [address] ANC Prelim 2.16 1.50 - 6.50 K/cumm [facility] Comment: Interpretive Data The rapid ANC is a preliminary automated count and may vary from the final ANC (Neut Abs) reported in the WBC differential that follows. Current interpretive data was last revised 2025. Testing performed by: [address] [address] Blood 04/12/2025 9:09 AM CDT 04/12/2025 9:10 AM CDT Nena Cano LACTATION NURSE LAB BLOOD ORDERABLES Final Result Performing Organization Address [facility] Co de Phone Number [id number] [address] * ABO/Rh (04/12/2025 9:09 AM CDT) Pathologist [facility] ABO/Rh A Positive Comment:Testing performed by : [address] [address] Blood 04/12/2025 9:09 AM CDT 04/12/2025 9:45 AM CDT Narrative [facility] - 04/12/2025 10:25 AM CDT Has the patient had Daratumumab or Isatuximab in the past 6 months?->Unknown Nena Cano LACTATION NURSE LAB BLOOD BANK TEST ORDERAB LES Final Result Performing Organization Address [facility] de Phone Number DAYANA[address] [address] * (ABNORMAL) Reticulocyte Count (04/12/2025 9:09 AM CDT) Retics, absolute 108(H) 20 - 87 K/cumm Comment:Testing performed by : [address] [address] Retics 4.1(H) 0.4 - 2.9 % [facility] SER[facility] Comment:Testing performed by : [address] [address] Reticulocyte Hgb 34.1 30.5 - 38.0 pg [facility] SERNA Comment:Testing performed by : [address] [address] Blood 04/12/2025 9:09 AM CDT 04/12/2025 9:10 AM CDT Nena Cano LACTATION NURSE LAB BLOOD ORDERABLES Final Result Performing Organization Address City/[facility]/ZIP Co de Phone Number [address] [address] * Crossmatch (04/12/2025 9:09 AM CDT) Pathologist [facility] Crossmatch Compatible [facility] Unit number for crossmatch [id number] [facility] Blood 04/12/2025 9:09 AM CDT 04/12/2025 9:48 AM CDT Nena Cano LAB BLOOD BANK TEST ORDERAB LES Final Result Performing Organization Address [facility] de Phone Number [address] [address] * Antibody screen (04/12/2025 9:09 AM CDT) [facility] Divina, indirect, Gel Interpretation Negative [facility] Comment:Testing performed by : [address] [address] Blood 04/12/2025 9:09 AM CDT 04/12/2025 9:45 AM CDT Narrative [facility] - 04/12/2025 10:43 AM CDT Has the patient had Daratumumab or Isatuximab in the past 6 months?->Unknown Nena Cano LACTATION NURSE LAB BLOOD BANK TEST ORDERAB LES Final Result Performing Organization Address City/[facility] Co de Phone Number [address] [address] * Ferritin (04/12/2025 9:09 AM CDT) [facility] Ferritin 58 30 - 400 ng/mL Comment:Testing performed by : [address] [address] Blood 04/12/2025 9:09 AM CDT 04/12/2025 9:45 AM CDT us Nena Mamta Jerome AARON LAB BLOOD ORDERABLES Final Result [facility] MH [address] [facility] Department [place] [address] * PET/CT FDG Skull to Thigh (04/10/2025 [...] liver and <= 2x SUV max liver Dkgxablr-cx-dnxutz: >2x SUV max liver and <= 3x [...] Naomi Pimentel M.D. FT: FT Report ID: [id number] Reading Location: [id number] Procedure Note Naomi Martini MD - 04/10/2025 [...] liver and <= 2x SUV max liver Skqszhwr-hb-xlwhuc: >2x SUV max liver and <= 3x [...] Naomi Pimentel M.D. FT: FT Report ID: [id number] Reading Location: [place] [address] Bianca Hunter MD IMG PET PROCEDURES F inal Result * POCT glucose (04/10/2025 8:22 AM CDT) [facility] Glucose, POC 88 70 - 199 mg/dL Comment:Testing performed by : [address] [address] Blood 04/10/2025 8:22 AM CDT 04/10/2025 8:22 AM CDT Bianca Hunter MD LAB POCT ORDERABLES - DEVICE Final Result [facility] [address] [facility] Department [place] [address] * Differential, auto (04/04/2025 10:10 AM CDT) [facility] Neutrophil abs 2.03 1.50 - 6.50 K/cumm Comment:Testing performed by : [address] [address] Imm gran abs 0.02 0.00 - 0.10 K/cumm [facility] SERNA Comment:Testing performed by : [address], [place]., [address] Lymphocyte abs 0.96 0.80 - 3.30 K/cumm [facility] Comment:Testing performed by : [address], [place]., [address] Monocyte abs 0.51 0.20 - 0.80 K/cumm ISAAC Comment:Testing performed by : [address], [place]., [address] Eosinophil abs 0.15 0.00 - 0.50 K/cumm ISAAC Comment:Testing performed by : [address], [place]., [address] Basophil abs 0.03 0.00 - 0.10 K/cumm ISAAC Comment:Testing performed by : [address] [address] Neutrophil pct 54.9 % ISAAC Comment: Interpretive Data Percent cell count reference ranges are not reported, since discordance with absolute values may lead to misinterpretation of CBC data. Current Interpretive Data was last revised on 2018. Testing performed by: [address] [address] Imm gran pct 0.5 % ISAAC Comment: Interpretive Data Percent cell count reference ranges are not reported, since discordance with absolute values may lead to misinterpretation of CBC data. Current Interpretive Data was last revised on 2018. Testing performed by: [address] [address] Lymphocyte pct 25.9 % ISAAC Comment: Interpretive Data Percent cell count reference ranges are not reported, since discordance with absolute values may lead to misinterpretation of CBC data. Current Interpretive Data was last revised on 2018. Testing performed by: [address] [address] Monocyte pct 13.8 % CERADAM Comment: Interpretive Data Percent cell count reference ranges are not reported, since discordance with absolute values may lead to misinterpretation of CBC data. Current Interpretive Data was last revised on 2018. Testing performed by: [address] [address] Eosinophil pct 4.1 % ISAAC Comment: Interpretive Data Percent cell count reference ranges are not reported, since discordance with absolute values may lead to misinterpretation of CBC data. Current Interpretive Data was last revised on 2018. Testing performed by: [address] [address] Basophil pct 0.8 % ISAAC Comment: Interpretive Data Percent cell count reference ranges are not reported, since discordance with absolute values may lead to misinterpretation of CBC data. Current Interpretive Data was last revised on 2018. Testing performed by: [address] [address] Blood 04/04/2025 10:1 0 AM CDT 04/04/2025 10:10 AM CDT Nena Cano LACTATION NURSE LAB BLOOD ORDERABLES Final Result Performing Organization Address [facility] de Phone Number [place] [id number] [facility] [place] [address] * (ABNORMAL) Iron profile w/ IBC (04/04/2025 10:10 AM CDT) Iron 138 50 - 150 mcg/dL Comment:Testing performed by : [address] [address] TIBC 228(L) 250 - 400 mcg/dL ISAAC Comment:Testing performed by : [address] [address] Transferrin saturation 61(H) 20 - 50 % ISAAC Comment:Testing performed by : [address] [address] Blood 04/04/2025 10:1 0 AM CDT 04/04/2025 11:44 AM CDT Nena Cano LACTATION NURSE LAB BLOOD ORDERABLES Final Result Performing Organization Address [facility] Co de Phone Number [place] [id number] [facility] [place] [address] * (ABNORMAL) CBC with auto differential (04/04/2025 10:10 AM CDT) [facility] WBC 3.70(L) 3.80 - 9.90 K/cumm Comment:Testing performed by : [address] [address] Hgb 8.2(L) 13.0 - 17.5 g/dL ISAAC Comment:Testing performed by : [address], [address] Hct 26.2(L) 38.9 - 50.3 % ISAAC Comment:Testing performed by : [address], [address] Plt 205 150 - 400 K/cumm ISAAC Comment:Testing performed by : [address], [address] MPV 9.1 9.1 - 12.3 fL ISAAC Comment:Testing performed by : [address], [address] RBC 2.79(L) 4.30 - 5.80 M/cumm ISAAC Comment:Testing performed by : [address], [address] MCV 93.9 81.3 - 96.4 fL ISAAC Comment:Testing performed by : [address] [address] MCH 29.4 27.1 - 33.3 pg ISAAC Comment:Testing performed by : [address], [address] MCHC 31.3(L) 32.3 - 35.7 g/dL ISAAC Comment:Testing performed by : [address], [address] RDW CV 19.9(H) 11.1 - 14.9 % ISAAC Comment:Testing performed by : [address], [address] RDW SD 68.3(H) 35.7 - 48.1 fL ISAAC Comment:Testing performed by : [address], [address] NRBC abs 0.00 0.00 - 0.01 K/cumm ISAAC Comment:Testing performed by : [address] [address] ANC Prelim 2.03 1.50 - 6.50 K/cumm ISAAC Comment: Interpretive Data The rapid ANC is a preliminary automated count and may vary from the final ANC (Neut Abs) reported in the WBC differential that follows. Current interpretive data was last revised 2025. Testing performed by: [address] [address] Blood 04/04/2025 10:1 0 AM CDT 04/04/2025 10:10 AM CDT Nena Cano LAB BLOOD ORDERABLES Final Result Performing Organization Address [facility] de Phone Number [address] [place] [address] * Reticulocyte Count (04/04/2025 10:10 AM CDT) Retics, absolute 78 20 - 87 K/cumm Comment:Testing performed by : [address] [address] Retics 2.8 0.4 - 2.9 % ISAAC Comment:Testing performed by : [address] [address] Reticulocyte Hgb 30.5 30.5 - 38.0 pg ISAAC Comment:Testing performed by : [address] [address] Blood 04/04/2025 10:1 0 AM CDT 04/04/2025 10:10 AM CDT Nena Cano LACTATION NURSE LAB BLOOD ORDERABLES Final Result Performing Organization Address [facility] de Phone Number [address] [place] [address] * Ferritin (04/04/2025 10:10 AM CDT) Ferritin 65 30 - 400 ng/mL Comment:Testing performed by : [address] [address] Blood 04/04/2025 10:1 0 AM CDT 04/04/2025 11:44 AM CDT Nena Cano LACTATION NURSE LAB BLOOD ORDERABLES Final Result [facility] [address] [facility] Department [place] [address] * Differential, auto (03/29/2025 9:10 AM CDT) Pathologist [facility] Neutrophil abs 1.83 1.50 - 6.50 K/cumm Comment:Testing performed by : [address] [address] Imm gran abs 0.01 0.00 - 0.10 K/cumm ISAAC Comment:Testing performed by : [address] [address] Lymphocyte abs 0.94 0.80 - 3.30 K/cumm ISAAC Comment:Testing performed by : [address] [address] Monocyte abs 0.60 0.20 - 0.80 K/cumm ISAAC Comment:Testing performed by : [address] [address] Eosinophil abs 0.16 0.00 - 0.50 K/cumm ISAAC Comment:Testing performed by : [address] [address] Basophil abs 0.04 0.00 - 0.10 K/cumm ISAAC Comment:Testing performed by : [address] [address] Neutrophil pct 51.0 % ISAAC Comment: Interpretive Data Percent cell count reference ranges are not reported, since discordance with absolute values may lead to misinterpretation of CBC data. Current Interpretive Data was last revised on 2018. Testing performed by: [address] [address] Imm gran pct 0.3 % [facility] Comment: Interpretive Data Percent cell count reference ranges are not reported, since discordance with absolute values may lead to misinterpretation of CBC data. Current Interpretive Data was last revised on 2018. Testing performed by: [address] [address] Lymphocyte pct 26.3 % [facility] Comment: Interpretive Data Percent cell count reference ranges are not reported, since discordance with absolute values may lead to misinterpretation of CBC data. Current Interpretive Data was last revised on 2018. Testing performed by: [address] [address] Monocyte pct 16.8 % [facility] Comment: Interpretive Data Percent cell count reference ranges are not reported, since discordance with absolute values may lead to misinterpretation of CBC data. Current Interpretive Data was last revised on 2018. Testing performed by: [address] [address] Eosinophil pct 4.5 % [facility] Comment: Interpretive Data Percent cell count reference ranges are not reported, since discordance with absolute values may lead to misinterpretation of CBC data. Current Interpretive Data was last revised on 2018. Testing performed by: [address] [address] Basophil pct 1.1 % [facility] Comment: Interpretive Data Percent cell count reference ranges are not reported, since discordance with absolute values may lead to misinterpretation of CBC data. Current Interpretive Data was last revised on 2018. Testing performed by: [address] [address] Blood 03/29/2025 9:10 AM CDT 03/29/2025 9:11 AM CDT us Nena Cano NP LAB BLOOD ORDERABLES Final Result ISAAC [address] [facility] Department [place] [address] * (ABNORMAL) Iron profile w/ IBC (03/29/2025 9:10 AM CDT) Iron 49(L) 50 - 150 mcg/dL Comment:Testing performed by : [address] [address] TIBC 201(L) 250 - 400 mcg/dL ISAAC SERNA Comment:Testing performed by : [address] [address] Transferrin saturation 24 20 - 50 % ISAAC SERNA Comment:Testing performed by : [address] [address] Blood 03/29/2025 9:10 AM CDT 03/29/2025 9:47 AM CDT Nena Cano LACTATION NURSE LAB BLOOD ORDERABLES Final Result ISAAC [facility] Department [place] [address] * (ABNORMAL) CBC with auto differential (03/29/2025 9:10 AM CDT) Pathologist [facility] WBC 3.58(L) 3.80 - 9.90 K/cumm Comment:Testing performed by : [address] [address] Hgb 8.8(L) 13.0 - 17.5 g/dL ISAAC SERNA Comment:Testing performed by : [address] [address] Hct 27.7(L) 38.9 - 50.3 % ISAAC SERNA Comment:Testing performed by : [address] [address] Plt 192 150 - 400 K/cumm ISAAC SERNA Comment:Testing performed by : [address] [address] MPV 8.8(L) 9.1 - 12.3 fL ISAAC SERNA Comment:Testing performed by : [address] [address] RBC 3.01(L) 4.30 - 5.80 M/cumm ISAAC SERNA Comment:Testing performed by : [address] [address] MCV 92.0 81.3 - 96.4 fL ISAAC Comment:Testing performed by : [address] [address] MCH 29.2 27.1 - 33.3 pg ISAAC Comment:Testing performed by : [address] [address] MCHC 31.8(L) 32.3 - 35.7 g/dL ISAAC Comment:Testing performed by : [address] [address] RDW CV 20.7(H) 11.1 - 14.9 % ISAAC Comment:Testing performed by : [address] [address] RDW SD 69.5(H) 35.7 - 48.1 fL ISAAC Comment:Testing performed by : [address] [address] NRBC abs 0.00 0.00 - 0.01 K/cumm ISAAC Comment:Testing performed by : [address] [address] ANC Prelim 1.83 1.50 - 6.50 K/cumm ISAAC Comment: Interpretive Data The rapid ANC is a preliminary automated count and may vary from the final ANC (Neut Abs) reported in the WBC differential that follows. Current interpretive data was last revised 2025. Testing performed by: [address] [address] Blood 03/29/2025 9:10 AM CDT 03/29/2025 9:11 AM CDT us Nena Cano LACTATION NURSE LAB BLOOD ORDERABLES Final Result DAY[facility]ADAM [address] [facility] Department [place] [address] * Reticulocyte Count (03/29/2025 9:10 AM CDT) [facility] Retics, absolute 79 20 - 87 K/cumm Comment:Testing performed by : [address] [address] Retics 2.6 0.4 - 2.9 % ISAAC Comment:Testing performed by : [address] [address] Reticulocyte Hgb 32.0 30.5 - 38.0 pg ISAAC SERNA Comment:Testing performed by : [address] [address] Blood 03/29/2025 9:10 AM CDT 03/29/2025 9:11 AM CDT Nena Cano LACTATION NURSE LAB BLOOD ORDERABLES Final Result Performing Organization Address [facility] de Phone Number [address] [place] [address] * Ferritin (03/29/2025 9:10 AM CDT) [facility] Ferritin 76 30 - 400 ng/mL Comment:Testing performed by : [address], [address] Blood 03/29/2025 9:10 AM CDT 03/29/2025 9:47 AM CDT Nena Cano LACTATION NURSE LAB BLOOD ORDERABLES Final Result Performing Organization Address [facility] de Phone Number [address] [place] [address] * (ABNORMAL) Differential, auto (03/15/2025 9:10 AM CDT) [facility] Neutrophil abs 1.35(L) 1.50 - 6.50 K/cumm Comment:Testing performed by : [address] [address] Imm gran abs 0.02 0.00 - 0.10 K/cumm ISAAC SERNA Comment:Testing performed by : [address] [address] Lymphocyte abs 0.76(L) 0.80 - 3.30 K/cumm ISAAC Comment:Testing performed by : [address] [address] Monocyte abs 0.69 0.20 - 0.80 K/cumm ISAAC Comment:Testing performed by : [address], [place]., [address] Eosinophil abs 0.05 0.00 - 0.50 K/cumm [facility] Comment:Testing performed by : [address], [place]., [address] Basophil abs 0.02 0.00 - 0.10 K/cumm [facility] Comment:Testing performed by : [address] [address] Neutrophil pct 46.7 % [facility] Comment: Interpretive Data Percent cell count reference ranges are not reported, since discordance with absolute values may lead to misinterpretation of CBC data. Current Interpretive Data was last revised on 2018. Testing performed by: [address] [address] Imm gran pct 0.7 % [facility] Comment: Interpretive Data Percent cell count reference ranges are not reported, since discordance with absolute values may lead to misinterpretation of CBC data. Current Interpretive Data was last revised on 2018. Testing performed by: [address] [address] Lymphocyte pct 26.3 % [facility] Comment: Interpretive Data Percent cell count reference ranges are not reported, since discordance with absolute values may lead to misinterpretation of CBC data. Current Interpretive Data was last revised on 2018. Testing performed by: [address] [address] Monocyte pct 23.9 % CERNER Comment: Interpretive Data Percent cell count reference ranges are not reported, since discordance with absolute values may lead to misinterpretation of CBC data. Current Interpretive Data was last revised on 2018. Testing performed by: [address] [address] Eosinophil pct 1.7 % CERNER Comment: Interpretive Data Percent cell count reference ranges are not reported, since discordance with absolute values may lead to misinterpretation of CBC data. Current Interpretive Data was last revised on 2018. Testing performed by: [address] [address] Basophil pct 0.7 % ISAAC SERNA Comment: Interpretive Data Percent cell count reference ranges are not reported, since discordance with absolute values may lead to misinterpretation of CBC data. Current Interpretive Data was last revised on 2018. Testing performed by: [address] [address] Blood 03/15/2025 9:10 AM CDT 03/15/2025 9:12 AM CDT Nena Cano LAB BLOOD ORDERABLES Final Result Performing Organization Address [facility] Co de Phone Number [address] [place] [address] * (ABNORMAL) Iron profile w/ IBC (03/15/2025 9:10 AM CDT) Iron 57 50 - 150 mcg/dL Comment:Testing performed by : [address] [address] TIBC 190(L) 250 - 400 mcg/dL ISAAC SERNA Comment:Testing performed by : [address] [address] Transferrin saturation 30 20 - 50 % ISAAC Comment:Testing performed by : [address] [address] Blood 03/15/2025 9:10 AM CDT 03/15/2025 9:39 AM CDT Nena Cano LACTATION NURSE LAB BLOOD ORDERABLES Final Result Performing Organization Address City/[facility]/ZIP Co de Phone Number [address] [place] [address] * (ABNORMAL) CBC with auto differential (03/15/2025 9:10 AM CDT) [facility] Signature WBC 2.89(L) 3.80 - 9.90 K/cumm Comment:Testing performed by : [address], [address] Hgb 10.0(L) 13.0 - 17.5 g/dL ISAAC Comment:Testing performed by : [address], [address] Hct 31.2(L) 38.9 - 50.3 % ISAAC Comment:Testing performed by : [address], [address] Plt 225 150 - 400 K/cumm ISAAC Comment:Testing performed by : [address], [address] MPV 9.0(L) 9.1 - 12.3 fL ISAAC Comment:Testing performed by : [address], [address] RBC 3.42(L) 4.30 - 5.80 M/cumm ISAAC Comment:Testing performed by : [address], [address] MCV 91.2 81.3 - 96.4 fL ISAAC Comment:Testing performed by : [address], [address] MCH 29.2 27.1 - 33.3 pg ISAAC Comment:Testing performed by : [address], [address] MCHC 32.1(L) 32.3 - 35.7 g/dL ISAAC Comment:Testing performed by : [address], [address] RDW CV 20.9(H) 11.1 - 14.9 % ISAAC Comment:Testing performed by : [address], [address] RDW SD 69.1(H) 35.7 - 48.1 fL ISAAC Comment:Testing performed by : [address], [address] NRBC abs 0.00 0.00 - 0.01 K/cumm ISAAC SERNA Comment:Testing performed by : [address] [address] ANC Prelim 1.35(L) 1.50 - 6.50 K/cumm ISAAC SERNA Comment: Interpretive Data The rapid ANC is a preliminary automated count and may vary from the final ANC (Neut Abs) reported in the WBC differential that follows. Current interpretive data was last revised 2025. Testing performed by: [address] [address] Blood 03/15/2025 9:10 AM CDT 03/15/2025 9:12 AM CDT Nena Cano LAB BLOOD ORDERABLES Final Result Performing Organization Address [facility] de Phone Number [address] [place] [address] * (ABNORMAL) Reticulocyte Count (03/15/2025 9:10 AM CDT) Retics, absolute 99(H) 20 - 87 K/cumm Comment:Testing performed by : [address] [address] Retics 2.9 0.4 - 2.9 % ISAAC Comment:Testing performed by : [address] [address] Reticulocyte Hgb 33.0 30.5 - 38.0 pg ISAAC Comment:Testing performed by : [address] [address] Blood 03/15/2025 9:10 AM CDT 03/15/2025 9:12 AM CDT Nena Cano LACTATION NURSE LAB BLOOD ORDERABLES Final Result Performing Organization Address [facility] de Phone Number [address] [place] [address] * Ferritin (03/15/2025 9:10 AM CDT) Ferritin 131 30 - 400 ng/mL Comment:Testing performed by : [address] [address] Blood 03/15/2025 9:10 AM CDT 03/15/2025 9:39 AM CDT us Nena Cano NP LAB BLOOD ORDERABLES Final Result Performing Organization Address City/[facility]/ZIP Co de Phone Number ISAAC [address] [place] [address] * (ABNORMAL) Protime-INR (02/28/2025 12:40 PM CDT) [facility] PT 41.1(H) 12.0 - 14.6 sec Comment: Ref Range High Testing performed by: [address] [address] INR 4.4(H) 0.9 - 1.2 ISAAC Comment: Ref Range High Interpretive data Oral anticoagulant therapeutic ranges: Venous thromboembolism prophylaxis or treatment: 2.0-3.0 CARDIOLOGY Standard range: 2.0-3.0 High-intensity range: 2.5-3.5 Refer to indication-specific guidelines for appropriate target ranges for prosthetic heart valve replacement. Current interpretive data was last revised on 2019. Testing performed by: [address] [address] Blood 02/28/2025 12:4 0 PM CDT 02/28/2025 1:32 PM CDT us Jas Alcala MD LAB BLOOD ORDERABLES Final R esult Performing Organization Address City/[facility]/ZIP Co de Phone Number DAYANA[address] [place] [address] * Blood smear review (02/28/2025 12:03 PM CDT) [facility] RBC morphology Consistent with RBC Indicies Comment:Testing performed by : [address] [address] Platelet estimate Adequate ISAAC Comment:Testing performed by : [facility], [address] [place] [address]., [address] Blood 02/28/2025 12:0 3 PM CDT 02/28/2025 12:05 PM CDT Bianca Hunter MD LAB BLOOD ORDERABLES Final Result Performing Organization Address City/[facility]/ZIP Co de Phone Number ISAAC [address] [facility] [place] [address] * eGFR (02/28/2025 12:03 PM CDT) eGFR [...] was last reviewed 2021. Testing performed by: [facility], [address] [place] [address]., [address] Blood 02/28/2025 12:0 3 PM CDT 02/28/2025 12:05 PM CDT Bianca Hunter MD LAB BLOOD ORDERABLES Final Result Performing Organization Address City/[facility]/ZIP Co de Phone Number ISAAC [address] [facility] [place] [address] * (ABNORMAL) Differential, auto (02/28/2025 12:03 PM CDT) Neutrophil abs 0.91(L) 1.50 - 6.50 K/cumm Comment:Testing performed by : [address] [address] Imm gran abs 0.06 0.00 - 0.10 K/cumm [facility] Comment:Testing performed by : [address] [address] Lymphocyte abs 0.33(L) 0.80 - 3.30 K/cumm [facility] Comment:Testing performed by : [address] [address] Monocyte abs 0.41 0.20 - 0.80 K/cumm [facility] Comment:Testing performed by : [address] [address] Eosinophil abs 0.04 0.00 - 0.50 K/cumm [facility] Comment:Testing performed by : [address] [address] Basophil abs 0.02 0.00 - 0.10 K/cumm [facility] Comment:Testing performed by : [address] [address] Neutrophil pct 51.4 % [facility] Comment: Differential consistent with previous result. Interpretive Data Percent cell count reference ranges are not reported, since discordance with absolute values may lead to misinterpretation of CBC data. Current Interpretive Data was last revised on 2018. Testing performed by: [address] [address] Imm gran pct 3.4 % [facility] Comment: Interpretive Data Percent cell count reference ranges are not reported, since discordance with absolute values may lead to misinterpretation of CBC data. Current Interpretive Data was last revised on 2018. Testing performed by: [address] [address] Lymphocyte pct 18.6 % [facility] Comment: Interpretive Data Percent cell count reference ranges are not reported, since discordance with absolute values may lead to misinterpretation of CBC data. Current Interpretive Data was last revised on 2018. Testing performed by: [address] [address] Monocyte pct 23.2 % ISAAC Comment: Interpretive Data Percent cell count reference ranges are not reported, since discordance with absolute values may lead to misinterpretation of CBC data. Current Interpretive Data was last revised on 2018. Testing performed by: [address] [address] Eosinophil pct 2.3 % ISAAC Comment: Interpretive Data Percent cell count reference ranges are not reported, since discordance with absolute values may lead to misinterpretation of CBC data. Current Interpretive Data was last revised on 2018. Testing performed by: [address] [address] Basophil pct 1.1 % ISAAC Comment: Interpretive Data Percent cell count reference ranges are not reported, since discordance with absolute values may lead to misinterpretation of CBC data. Current Interpretive Data was last revised on 2018. Testing performed by: [address] [address] Blood 02/28/2025 12:0 3 PM CDT 02/28/2025 12:05 PM CDT Bianca Hunter MD LAB BLOOD ORDERABLES Final Result [facility] [address] [facility] Department [place] [address] * (ABNORMAL) Iron profile w/ IBC (02/28/2025 12:03 PM CDT) Iron 56 50 - 150 mcg/dL Comment:Testing performed by : [address] [address] TIBC 164(L) 250 - 400 mcg/dL ISAAC SERNA Comment:Testing performed by : [address] [address] Transferrin saturation 34 20 - 50 % ISAAC Comment:Testing performed by : [address] [address] Blood 02/28/2025 12:0 3 PM CDT 02/28/2025 1:32 PM CDT Nena Garzae Jerome LACTATION NURSE LAB BLOOD ORDERABLES Final Result [facility] [address] [facility] Department [place] [address] * (ABNORMAL) CBC with auto differential (02/28/2025 12:03 PM CDT) Pathologist [facility] WBC 1.77(L) 3.80 - 9.90 K/cumm Comment:Testing performed by : [address] [address] Hgb 9.3(L) 13.0 - 17.5 g/dL ISAAC Comment:Testing performed by : [address] [address] Hct 28.9(L) 38.9 - 50.3 % ISAAC Comment:Testing performed by : [address] [address] Plt 168 150 - 400 K/cumm ISAAC Comment:Testing performed by : [address] [address] MPV 9.5 9.1 - 12.3 fL ISAAC Comment:Testing performed by : [address] [address] RBC 3.22(L) 4.30 - 5.80 M/cumm ISAAC Comment:Testing performed by : [address] [address] MCV 89.8 81.3 - 96.4 fL ISAAC Comment:Testing performed by : [address] [address] MCH 28.9 27.1 - 33.3 pg ISAAC SERNA Comment:Testing performed by : [address] [address] MCHC 32.2(L) 32.3 - 35.7 g/dL ISAAC Comment:Testing performed by : [address] [address] RDW CV 18.7(H) 11.1 - 14.9 % ISAAC Comment:Testing performed by : [address] [address] RDW SD 58.7(H) 35.7 - 48.1 fL ISAAC Comment:Testing performed by : [address] [address] NRBC abs 0.00 0.00 - 0.01 K/cumm ISAAC Comment:Testing performed by : [address] [address] ANC Prelim 0.91(L) 1.50 - 6.50 K/cumm ISAAC Comment: Interpretive Data The rapid ANC is a preliminary automated count and may vary from the final ANC (Neut Abs) reported in the WBC differential that follows. Current interpretive data was last revised 2025. Testing performed by: [address] [address] Blood 02/28/2025 12:0 3 PM CDT 02/28/2025 12:05 PM CDT Bianca Hunter MD LAB BLOOD ORDERABLES Final Result [facility] [address] [facility] Department [place] [address] * (ABNORMAL) Reticulocyte Count (02/28/2025 12:03 PM CDT) Retics, absolute 86 20 - 87 K/cumm Comment:Testing performed by : [address] [address] Retics 2.7 0.4 - 2.9 % ISAAC SERNA Comment:Testing performed by : [address] [address] Reticulocyte Hgb 30.4(L) 30.5 - 38.0 pg ISAAC SERNA Comment:Testing performed by : [address] [address] Blood 02/28/2025 12:0 3 PM CDT 02/28/2025 12:05 PM CDT Nena Cano LACTATION NURSE LAB BLOOD ORDERABLES Final Result Performing Organization Address City/[facility] Co de Phone Number [address] [address] * Ferritin (02/28/2025 12:03 PM CDT) Pathologist [facility] Ferritin 208 30 - 400 ng/mL Comment:Testing performed by : [address] [address] Blood 02/28/2025 12:0 3 PM CDT 02/28/2025 1:32 PM CDT Nena Cano LACTATION NURSE LAB BLOOD ORDERABLES Final Result Performing Organization Address [facility] de Phone Number [address] [address] * (ABNORMAL) Comprehensive metabolic panel (02/28/2025 12:03 PM CDT) [facility] Sodium 138 135 - 145 mmol/L Comment:Testing performed by : [address] [address] Potassium, pl 3.6 3.3 - 4.9 mmol/L ISAAC Comment:Testing performed by : [address] [address] Chloride 106 97 - 110 mmol/L ISAAC Comment:Testing performed by : [address] [address] CO2 22 22 - 32 mmol/L ISAAC Comment:Testing performed by : [address] [address] Anion gap 10 2 - 15 mmol/L ISAAC Comment:Testing performed by : [address] [address] BUN 12 6 - 25 mg/dL ISAAC Comment:Testing performed by : [address] [address] Creatinine 1.10 0.80 - 1.30 mg/dL ISAAC Comment:Testing performed by : [address] [address] Glucose 91 70 - 199 mg/dL ISAAC [...] was last revised 2022. Testing performed by: [address] [address] Calcium 8.7 8.5 - 10.3 mg/dL ISAAC Comment:Testing performed by : [address] [address] Bilirubin, total 0.4 0.1 - 1.2 mg/dL ISAAC Comment:Testing performed by : [address] [address] Protein, pl 5.6(L) 6.5 - 8.5 g/dL ISAAC Comment:Testing performed by : [address] [address] Albumin 3.2(L) 3.5 - 5.0 g/dL ISAAC Comment:Testing performed by : [address] [address] Alk phos 64 40 - 130 Units/L ISAAC Comment:Testing performed by : [address] [address] ALT 14 7 - 55 Units/L ISAAC Comment:Testing performed by : [address] [address] AST 19 10 - 50 Units/L ISAAC Comment:Testing performed by : [address] [address] Blood 02/28/2025 12:0 3 PM CDT 02/28/2025 12:05 PM CDT Bianca Hunter MD LAB BLOOD ORDERABLES Final Result ISAAC [address] [facility] Department [place] [address] * RAD ONC ARIA SESSION SUMMARY (02/27/2025 [...] 540 ARIA 02/27/2025 11:3 2 AM CDT Not In File Miscellaneous RADIATION ONCOLOGY ORD ERABLES Final Result Performing Organization Address City/[facility] Co de Phone Number ARIA * (ABNORMAL) Protime-INR (02/24/2025 2:55 PM CDT) PT 52.2(H) 12.0 - 14.6 sec Comment: Ref Range High Testing performed by: [facility], [address] [place] [address]., [address] INR 5.9(C) 0.9 - 1.2 ISAAC Comment: Ref Range High Critical value. Results called to and read back by: Critical Result called to and read back by Ceci Antony NP for [facility], DATE: 2025-02-24 18:09:13 BY: Adrianna MascorroCharlene [email or web address] Interpretive data Oral anticoagulant therapeutic ranges: Venous thromboembolism prophylaxis or treatment: 2.0-3.0 CARDIOLOGY Standard range: 2.0-3.0 High-intensity range: 2.5-3.5 Refer to indication-specific guidelines for appropriate target ranges for prosthetic heart valve replacement. Current interpretive data was last revised on 2019. Testing performed by: [facility], [address] [place] [address], [place]., [address] Blood 02/24/2025 2:55 PM CDT 02/24/2025 4:04 PM CDT us Jas Alcala MD LAB BLOOD ORDERABLES Final R esult ISAAC [facility] Department [place] [address] * RAD ONC ARIA SESSION [...] was last reviewed 2021. Testing performed by: [facility], [address] [place] [address], [place]., [address] Blood 02/23/2025 9:31 AM CDT 02/23/2025 9:46 AM CDT us Bianca Hunter MD LAB BLOOD ORDERABLES Final Result ISAAC [address] [facility] Department [place] [address] * (ABNORMAL) Differential, auto (02/23/2025 9:31 AM CDT) Neutrophil abs 0.19(C) 1.50 - 6.50 K/cumm Comment: This result has been called to Meme Dean RN Epic Secure Chat by [email or web address] on 02/23/2025 09:58:21, and has been read back. Testing performed by: [address] [address] Imm gran abs 0.01 0.00 - 0.10 K/cumm [facility] Comment:Testing performed by : [address], [place]., [address] Lymphocyte abs 0.20(L) 0.80 - 3.30 K/cumm [facility] Comment:Testing performed by : [address], [place]., [address] Monocyte abs 0.40 0.20 - 0.80 K/cumm [facility] Comment:Testing performed by : [address] [address] Eosinophil abs 0.03 0.00 - 0.50 K/cumm [facility] Comment:Testing performed by : [address] [address] Basophil abs 0.01 0.00 - 0.10 K/cumm [facility] Comment:Testing performed by : [address] [address] Neutrophil pct 22.6 % [facility] Comment: Interpretive Data Percent cell count reference ranges are not reported, since discordance with absolute values may lead to misinterpretation of CBC data. Current Interpretive Data was last revised on 2018. Testing performed by: [address] [address] Imm gran pct 1.2 % [facility] Comment: Interpretive Data Percent cell count reference ranges are not reported, since discordance with absolute values may lead to misinterpretation of CBC data. Current Interpretive Data was last revised on 2018. Testing performed by: [address] [address] Lymphocyte pct 23.8 % [facility] Comment: Interpretive Data Percent cell count reference ranges are not reported, since discordance with absolute values may lead to misinterpretation of CBC data. Current Interpretive Data was last revised on 2018. Testing performed by: [address] [address] Monocyte pct 47.6 % [facility] Comment: Interpretive Data Percent cell count reference ranges are not reported, since discordance with absolute values may lead to misinterpretation of CBC data. Current Interpretive Data was last revised on 2018. Testing performed by: [address] [address] Eosinophil pct 3.6 % ISAAC Comment: Interpretive Data Percent cell count reference ranges are not reported, since discordance with absolute values may lead to misinterpretation of CBC data. Current Interpretive Data was last revised on 2018. Testing performed by: [address] [address] Basophil pct 1.2 % ISAAC Comment: Interpretive Data Percent cell count reference ranges are not reported, since discordance with absolute values may lead to misinterpretation of CBC data. Current Interpretive Data was last revised on 2018. Testing performed by: [address] [address] Blood 02/23/2025 9:31 AM CDT 02/23/2025 9:46 AM CDT us Bianca Hunter MD LAB BLOOD ORDERABLES Final Result [facility] [address] [facility] Department of Laboratories [place], [place] [id number] * (ABNORMAL) CBC with auto differential (02/23/2025 9:31 AM CDT) WBC 0.84(C) 3.80 - 9.90 K/cumm Comment: This result has been called to Meme Dean RN Epic Secure Chat by [email or web address] on 02/23/2025 09:58:21, and has been read back. Testing performed by: [address] [address] Hgb 9.0(L) 13.0 - 17.5 g/dL ISAAC Comment:Testing performed by : [address] [address] Hct 28.2(L) 38.9 - 50.3 % ISAAC Comment:Testing performed by : [address] [address] Plt 164 150 - 400 K/cumm ISAAC Comment:Testing performed by : [address] [address] MPV 9.3 9.1 - 12.3 fL ISAAC Comment:Testing performed by : [address] [address] RBC 3.14(L) 4.30 - 5.80 M/cumm ISAAC Comment:Testing performed by : [address] [address] MCV 89.8 81.3 - 96.4 fL ISAAC Comment:Testing performed by : [address] [address] MCH 28.7 27.1 - 33.3 pg ISAAC Comment:Testing performed by : [address] [address] MCHC 31.9(L) 32.3 - 35.7 g/dL ISAAC Comment:Testing performed by : [address] [address] RDW CV 18.1(H) 11.1 - 14.9 % ISAAC Comment:Testing performed by : [address] [address] RDW SD 57.3(H) 35.7 - 48.1 fL ISAAC Comment:Testing performed by : [address] [address] NRBC abs 0.00 0.00 - 0.01 K/cumm IS[facility]AC Comment:Testing performed by : [address] [address] ANC Prelim 0.19(L) 1.50 - 6.50 K/cumm ISAAC Comment: Interpretive Data The rapid ANC is a preliminary automated count and may vary from the final ANC (Neut Abs) reported in the WBC differential that follows. Current interpretive data was last revised 2025. Testing performed by: [address], [address] Morphologic Screen Results confirmed by manual morphology review. ISAAC Comment:Testing performed by : [address] [address] Blood 02/23/2025 9:31 AM CDT 02/23/2025 9:46 AM CDT Bianca Hunter MD LAB BLOOD ORDERABLES Final Result Performing Organization Address City/[facility] Co de Phone Number ISAAC [facility]7 [facility] [place] [address] * (ABNORMAL) Protime-INR (02/23/2025 9:31 AM CDT) PT 49.1(H) 12.0 - 14.6 sec Comment: Ref Range High Testing performed by: [address] [address] INR 5.5(C) 0.9 - 1.2 ISAAC Comment: Ref Range High Critical value. Results called to and read back by: Critical Result called to and read back by Meme Dean RN Epic Secure Chat, DATE: 2025-02-23 11:55:31 BY: [email or web address] Interpretive data Oral anticoagulant therapeutic ranges: Venous thromboembolism prophylaxis or treatment: 2.0-3.0 CARDIOLOGY Standard range: 2.0-3.0 High-intensity range: 2.5-3.5 Refer to indication-specific guidelines for appropriate target ranges for prosthetic heart valve replacement. Current interpretive data was last revised on 2019. Testing performed by: [address] [address] Blood 02/23/2025 9:31 AM CDT 02/23/2025 11:32 AM CDT Bianca Hunter MD LAB BLOOD ORDERABLES Final Result Performing Organization Address [facility] Co de Phone Number [facility] [address] [facility] [place] [address] * (ABNORMAL) Comprehensive metabolic panel (02/23/2025 9:31 AM CDT) Sodium 142 135 - 145 mmol/L Comment:Testing performed by : [address] [address] Potassium, pl 3.7 3.3 - 4.9 mmol/L ISAAC Comment:Testing performed by : [address] [address] Chloride 109 97 - 110 mmol/L ISAAC Comment:Testing performed by : [address], [place]., [address] CO2 22 22 - 32 mmol/L [facility] Comment:Testing performed by : [address] [address] Anion gap 11 2 - 15 mmol/L [facility] Comment:Testing performed by : [address], [place]., [address] BUN 15 6 - 25 mg/dL ISAAC Comment:Testing performed by : [address], [place]., [address] Creatinine 1.20 0.80 - 1.30 mg/dL [facility] Comment:Testing performed by : [address] [address] Glucose 102 70 - 199 mg/dL [facility] Comment: Interpretive Data Fasting glucose >/= [...] was last revised 2022. Testing performed by: [address] [address] Calcium 8.6 8.5 - 10.3 mg/dL ISAAC Comment:Testing performed by : [address], [place]., [address] Bilirubin, total 0.4 0.1 - 1.2 mg/dL ISAAC Comment:Testing performed by : [address] [address] Protein, pl 5.8(L) 6.5 - 8.5 g/dL [facility]AC Comment:Testing performed by : [address] [address] Albumin 3.2(L) 3.5 - 5.0 g/dL IS[facility]AC Comment:Testing performed by : [address] [address] Alk phos 58 40 - 130 Units/L ISAAC Comment:Testing performed by : [address] [address] ALT 11 7 - 55 Units/L ISAAC Comment:Testing performed by : [address] [address] AST 16 10 - 50 Units/L ISAAC Comment:Testing performed by : [address], [address] Blood 02/23/2025 9:31 AM CDT 02/23/2025 9:46 AM CDT Bianca Hunter MD LAB BLOOD ORDERABLES Final Result ISAAC [address] [facility] Department of Laboratories [place], [place] [id number] * RAD ONC ARIA SESSION SUMMARY (02/22/2025 [...] DION * RAD ONC ARIA SESSION SUMMARY (02/21/2025 [...] ORD ERABLES Final Result Performing Organization Address [facility] Co de Phone Number DION [...] ORD ERABLES Final Result Performing Organization Address City/[facility] Co de Phone Number DION * CT Chest Abdomen Pelvis W Contrast (12/13/2024 7:09 AM MACHINE OPERATOR HOP WORKER) Anatomical Region Laterality Modality Body N/A Computed Tomogra phy 12/13/2024 7:26 AM MACHINE OPERATOR HOP WORKER Impressions 12/13/2024 7:26 AM MACHINE OPERATOR HOP WORKER 1. Nondistended esophagus. No discrete esophageal lesion identified to correspond to known malignancy. 2. No evidence of metastatic disease in the chest, abdomen, and pelvis. Electronically signed by: Courtney Johnson M.D. Narrative 12/13/2024 7:26 AM MACHINE OPERATOR HOP WORKER EXAMINATION: Computed tomography of the chest, abdomen [...] Courtney Johnson M.D. us Nikolay Dunn MD IMLuis CT PROCEDURES Final Res ult * Colonoscopy (11/17/2024 9:34 AM MACHINE OPERATOR HOP WORKER) Anatomical Region Laterality Modality Other Narrative Procedure Note Lucio Rosas MD - 11/17/2024 9:34 AM CST [facility] GI ENDOSCOPY Patient Name: Brennen Olson Procedure Date: 11/17/2024 9:34 AM Date of : 1950 Admit Type: Outpatient Age: 74 Gender: Male Attending MD: Lucio Rosas M.D. Room: [facility] ENDOSCOPY ROOM 03 Note Status: [...] The scope was passed under direct vision.The PCF-[id number] colonoscope was introduced through theanus and advanced to the cecum, identified byappendiceal orifice and ileocecal valve. The scope was passed under direct vision. The [id number] colonoscope was introduced through the and advanced [...] On: 11/17/2024 9:34 AM Recognized by the [employer] for promoting quality in endoscopy Lucio Rosas MD ENDOSCOPY PROCEDURES Final Resul t from Last 3 Months or Most Recently Relevant to Health Maintenance Insurance [facility] MEDICARE ADVANTAGE MEDICARE [facility] MEDICARE ADVANTAGE MEDICARE Advance Directives For more information, please contact: [phone] * Full Code (Latest Code Status on File) Date Activated Date Inactivated Comments 01/11/2025 10:34 AM 01/12/2025 5:08 AM * Full Code Date Activated Date Inactivated Comments 12/13/2024 8:18 AM 12/13/2024 5:22 PM Care Teams Data Management Relationship Specialty Start Date End Date Jas Alcala MD [address] [place] [address] PCP - General Internal Medicine 01/04/25 Lucio Rosas MD [address] [place] [address] Consulting Physician Gastroenterology 11/28/24 Bianca Hunter MD [address] [place] [address] Medical Oncologist/Physical Security Engineer Medical Oncology 12/07/24 Hero Pinedo MD [address] [place] [address] Radiation Oncologist Radiation Oncology 12/28/24 Lon Tomas MD [address] [place] [address] Consulting Physician Urology 01/04/25 Jaycee Teresa MD [address] [place] [address] Consulting Physician Cardiology 01/09/25
--- OUTSIDE RECORDS SUMMARY | 2025-05-22 15:49 | XMS_ITS | Data Portability ---
Author Organization [facility] Address [address] [place] [address] Care Team Providers Care Senior Php Web Developer Name Role Phone CLEVE MARIEE Urologist KOKI HAMILTON Graphic Specialist BUBBA ALCALA Primary Care Provider Assessment Encounter [...] follow up with me in 3 months [email or web address] Not available 05/01/2024 22:14:08 07/12/2024 07/12/2024 flu shot continu e current therapy all questions have been answered follow up in 4 months [email or web address] Not available 07/30/2024 21:44:40 12/08/2024 12/08/2024 GI [...] has been cleared to have the endoscopies [email or web address] Not available 12/08/2024 21:25:29 03/16/2025 03/16/2025 We will continue current therapy start 2.5 mg Coumadin daily every other day start March 17 PT INR this coming Thursday diagnosis and assessment and plan have been discussed we will see me back in 6 weeks other medicines continue Not available 03/16/2025 14:49:21 04/27/2025 04/27/2025 Health risk assessments reviewed diagnosis and assessment and plan reviewed we will continue current therapy all questions have been answered healthy lifestyle care instructions maintained on medicines for V-tach inflammatory bowel disease appears to be stable all questions have been answered we will move forward with continuing current therapy follow up with me in 3 months [email or web address] Not available 04/29/2025 16:19:08 Plan of Treatment [...] By Organization Details Last Modified Time 03/16/2025 [id number] A healthy lifestyle: care instructions [email or web address] Not available 03/16/2025 14:49:56 04/27/2025 [id number] advance care planning: care instructions [email or web address] Not available 04/29/2025 16:19:45 preventing falls : care instructions Not available 04/29/2025 16:19:45 Quitting Tobacco : Care Instructions [email or web address] Not available 04/29/2025 16:19:45 Medicare [facility] Preventive Checklist Not available 04/29/2025 16:19:45 eating healthy foods: care instructions [email or web address] Not available 04/29/2025 16:19:45 AD8 Dementia Screening Interview [email or web address] Not available 04/29/2025 16:19:45 A healthy lifestyle: care instructions [email or web address] Not available 04/27/2025 16:06:32 Reason for Referral None Reported. Results Created Date Observation Date Name Description Value Unit Range Abnormal Flag Note LastModifiedBy Organization Detail LastModifiedTime 12/19/1912/20/2024 BASIC METAB OLIC PANEL (7) glucose 122 mg/dL 70-99 above high normal Not Available [facility] ([facility]) [address] [place], [address], 12/20/2024 09:08:30 12/19/1912/20/2024 BASIC METAB OLIC PANEL (7) BUN 13 mg/dL 8-27 Not Available [facility] ([facility]) [address] [place], [address], 12/20/2024 09:08:30 12/19/1912/20/2024 BASIC METAB OLIC PANEL (7) creatinine 1.81 mg/dL 0.76-1 .27 above high normal Not Available [facility] ([facility]) [address] [place], [address], 12/20/2024 09:08:30 12/19/1912/20/2024 BASIC METAB OLIC PANEL (7) eGFR 39 mL/mi n/1.7 3 >59 below low normal Not Available [facility] ([facility]) [address] [place], [address], 12/20/2024 09:08:30 12/19/1912/20/2024 BASIC METAB OLIC PANEL (7) BUN/creatini ne ratio 7 10-24 below low normal Not Available [facility] ([facility]) [address] [place], [address], 12/20/2024 09:08:30 12/19/19 25 12/20/2024 BASIC METAB OLIC PANEL (7) sodium 139 mmol/ L 134-14 4 Not Available [facility] ([facility]) [address] [place], [address], 12/20/2024 09:08:30 12/19/19 25 12/20/2024 BASIC METAB OLIC PANEL (7) potassium 4.5 mmol/ L 3.5-5. 2 Not Available [facility] ([facility]) [address] [place], [address], 12/20/2024 09:08:30 12/19/1912/20/2024 BASIC METAB OLIC PANEL (7) chloride 108 mmol/ L 96-106 above high normal Not Available [facility] ([facility]) [address] [place], [address], 12/20/2024 09:08:30 12/19/1912/20/2024 BASIC METAB OLIC PANEL (7) carbon dioxide, total 19 mmol/ L 20-29 below low normal Not Available [facility] ([facility]) [address] [place], [address], 12/20/2024 09:08:30 12/19/1912/20/2024 PROTH ROMBI N TIME [...] 3.5 Not Available [facility] ([facility]) [address] [place], [address], 12/20/2024 09:08:32 12/19/19 25 12/20/2024 PROTH ROMBI N TIME (PT) prothrombin time 13.6 sec 9.1-12 .0 above high normal Not Available [facility] ([facility]) [address] [place], [address], 12/20/2024 09:08:32 12/19/1912/20/2024 CBC, PLATE LET, NO DIFFE RENTI AL WBC 4.6 x10e3 /uL 3.4-10 .8 Not Available [facility] ([facility]) [address] [place], [address], 12/20/2024 09:08:33 12/19/1912/20/2024 CBC, PLATE LET, NO DIFFE RENTI AL RBC 3.10 x10e6 /uL 4.14-5 .80 below low normal Not Available [facility] ([facility]) [address] [place], [address], 12/20/2024 09:08:33 12/19/1912/20/2024 CBC, PLATE LET, NO DIFFE RENTI AL hemoglobin 9.1 g/dL 13.0-1 7.7 below low normal Not Available [facility] ([facility]) [address] [place], [address], 12/20/2024 09:08:33 12/19/1912/20/2024 CBC, PLATE LET, NO DIFFE RENTI AL hematocrit 30.5 % 37.5-5 1.0 below low normal Not Available [facility] ([facility]) [address] [place], [address], 12/20/2024 09:08:33 12/19/1912/20/2024 CBC, PLATE LET, NO DIFFE RENTI AL MCV 98 fL 79-97 above high normal Not Available [facility] ([facility]) [address] [place], [address], 12/20/2024 09:08:33 12/19/19 25 12/20/2024 CBC, PLATE LET, NO DIFFE RENTI AL MCH 29.4 pg 26.6-3 3.0 Not Available [facility] ([facility]) [address] [facility], [place], [address], 12/20/2024 09:08:33 12/19/19 25 12/20/2024 CBC, PLATE LET, NO DIFFE RENTI AL MCHC 29.8 g/dL 31.5-3 5.7 below low normal Not Available [facility] ([facility]) [address] [facility], [place], [address], 12/20/2024 09:08:33 12/19/19 25 12/20/2024 CBC, PLATE LET, NO DIFFE RENTI AL RDW 14.6 % 11.6-1 5.4 Not Available [facility] ([facility]) [address] [facility], [place], [address], 12/20/2024 09:08:33 12/19/19 25 12/20/2024 CBC, PLATE LET, NO DIFFE RENTI AL platelets 300 x10e3 /uL 150-45 0 Not Available [facility] ([facility]) [address] [facility], [place], [address], 12/20/2024 09:08:33 01/07/20 25 01/06/2025 cardi ac stres s test No observ ation record ed. [address], [address], 01/18/2025 17:00:56 01/19/20 25 01/06/2025 adeno sine stres s test (PROC ) No observ ation record ed. [address], [address], 01/19/2025 17:33:35 02/03/20 25 01/05/2025 PFT, compl ete No observ ation record ed. [address] [place], [address], 02/02/2025 17:00:46 05/02/20 25 12/15/2022 US, duple x, aorta No observ ation record ed. rachel Rooney MD [address] [facility], [place], [address], 05/02/2025 11:39:35 05/02/20 25 04/01/2022 PET, skull [...] Time Gastroesophage al reflux disease without esophagitis 717233523 Active 2023 Bubba Alcala MD Attn: Fred daly,[address] [facility], [place], [address], [place] [facility] 4 22:09:46 Dyslipidemia 705880112 Active 2023 Bubba Alcala MD Attn: Fred g,[address] [facility], [place], [address], [place] [facility] 4 22:09:47 Chronic anemia 935881882 Active 2023 Bubba Alcala MD Attn: Fred g,[address] [facility], [place], [address], [place] [facility] 4 22:09:50 Inflammatory bowel disease 38404552 Active 2023 Bubba Alcala MD Attn: Fred g,[address] [facility], [place], [address], [place] [facility] 4 22:09:52 History of pulmonary embolus 827753479 Active 2023 Bubba Alcala MD Attn: Fred daly,[address] [facility], [place], [address], [place] [facility] 4 22:12:55 History of malignant neoplasm of prostate 568211023 Active 2023 Bubba Alcala MD Attn: Fred daly,[address] [facility], [place], [address], [place] [facility] 4 22:14:37 Cervical spondylosis 935813496 Active 2023 Bubba Alcala MD Attn: Fred daly,[address] [facility], [place], [address], [place] - [facility] 4 21:43:45 Problem Notes None recorded. Procedures Surgical History Date Name Laterality Status Provider Name and Address Organization Details Recorded Time colonoscopy completed Scarlett Louis MA [place] [facility] 12/08/2024 16:02:50 endoscopy completed Scarlett Louis MA [place] [facility] 12/08/2024 16:02:58 Imaging Results None recorded. Procedure Notes None recorded. Medical Equipment None Reported. Allergies Allergen ID Allergen Name Allergen Category Reaction Reaction Severity Criticality Documentation Date Start Date Code Code System Note Provider Name and Address Organization Details Recorded Time 347431 amoxicill in medicatio n hives Not available Not available 12/28/2023 723 RxNorm NORA [place], [place] - [facility] 4 16:18:47 248078 Farxiga medicatio n Not available Not available Not available 12/28/2023 94517 72 RxNorm peria nal rash NORA Cad[place] null, [place] - [facility] 4 16:19:36 743848 Celebrex medicatio n hives Not available Not available 12/28/2023 81225 7 RxNorm NORA [place], [place] [facility] 4 16:19:58 693172 Lyrica medicatio n Not available Not available Not available 12/28/2023 69905 1 RxNorm blurr y visio n NORA [...] 10 mg tablet TAKE 1 TABLET BY MOUT VERENAERY 6 HOURS NEEDED FOR NAUSEA OR VOMITING. [...] AREA TWICE A DAY FOR 15 DAYS 06/04 /2024 completed Not Available Not Available Not [...] PRN Not Available Not Available Not Available oxycodone 5 mg tablet TAKE 1 TABLET BY MOUTH EVERY 6 HOURS NEEDED FOR PAIN active Not Available Not Available No t Available enoxaparin 120 mg/0.8 mL subcutaneou s syringe PLEASE SEE ATTACHED FOR DETAILED DIRECTION S active Not Available Not Available No t [...] and Address Organization Details Last Updated DateTime 02/06/202 5 181.61 cm 38.8 kg/m2 481001. 69 g 97 % 97 % 64 /min 120/78 mm[Hg] Scarlett Louis MA [facility] 5 16:07:53 Date Recorded Body height Body mass index (BMI) Body weight Heart rate Oxygen saturation Oxygen saturation in Arterial blood by Pulse oximetry Systolic And Diastolic Provider Name and Address Organization Details Last Updated DateTime 5 181.61 cm 33.5 kg/m2 147632. 82 g 96 /min 97 % 97 % 110/78 mm[Hg] Scarlett Louis MA [facility] 5 14:20:07 Date Recorded Body height Body mass index (BMI) Body weight Heart rate Oxygen saturation Oxygen saturation in Arterial blood by Pulse oximetry Systolic And Diastolic Provider Name and Address Organization Details Last Updated DateTime 4 181.61 cm 39.5 kg/m2 632602. 45 g 64 /min 99 % 99 % 122/74 mm[Hg] Puja Beckwith MA [facility] 4 15:58:12 Date Recorded Body height Body mass index (BMI) Body weight Heart rate Oxygen saturation Oxygen saturation in Arterial blood by Pulse oximetry Systolic And Diastolic Provider Name and Address Organization Details Last Updated DateTime 5 181.61 cm 34.2 kg/m2 837403. 34 g 65 /min 99 % 99 % 120/72 mm[Hg] Milagro Tom MA [facility] 5 15:47:03 Date Recorded Body height Body mass index (BMI) Body weight Heart rate Oxygen saturation Oxygen saturation in Arterial blood by Pulse oximetry Systolic And Diastolic Provider Name and Address Organization Details Last Updated DateTime 4 181.61 cm 39.9 kg/m2 121070. 47 g 62 /min 99 % 99 % 126/68 mm[Hg] Sherine Hammonds MA [facility] 4 14:52:37 Social History Question Answer Notes LastModified by Organizat ion Details LastModified Time Tobacco Smoking Status Former Smoker NORA Cadet, [facility] 12/28/2023 16:20:38 Do You Have An Advance Directive? No [email or web address] Information not available 04/27/2025 Are You Blind [...] LastModified Time Mother Malignant tumor of breast [email or web address] Not available 2024 11:52:44 Father Malignant neoplastic [...] Skin Problems N Anemia Y Heart Attack (NC) Y Anxiety Disorder N Diabetes N Muscle, [...] Influenza, high-dose, quadrivalent, PF 3 completed Emily [place], [place] [facility] 11/17/2024 11:46:12 Influenza, high-dose, quadrivalent, PF 2 completed [place] [facility] 11/17/2024 11:46:12 Influenza, high-dose, quadrivalent, PF 1 completed [place] [facility] 11/17/2024 11:46:12 COVID-19, mRNA, LNP-S, PF, 100 mcg/0.5mL dose or 50 mcg/0.25mL dose 2 completed [place] [facility] 11/17/2024 11:46:12 COVID-19, mRNA, LNP-S, PF, 100 mcg/0.5mL dose or 50 mcg/0.25mL dose 1 completed Emily [place], [place] [facility] 11/17/2024 11:46:12 COVID-19, mRNA, LNP-S, PF, 100 mcg/0.5mL dose or 50 mcg/0.25mL dose 1 completed Emily [place] [facility] 11/17/2024 11:46:12 COVID-19, mRNA, LNP-S, PF, 100 mcg/0.5mL dose or 50 mcg/0.25mL dose 1 completed [place] [facility] 11/17/2024 11:46:12 influenza, unspecified formulation 8 completed [place] [facility] 11/17/2024 11:46:12 influenza, unspecified formulation 4 completed [place] [facility] 11/17/2024 11:46:13 Influenza, high-dose, trivalent, PF 8 completed [place] [facility] 11/17/2024 11:46:13 Influenza, high-dose, trivalent, PF 9 completed [place] [facility] 11/17/2024 11:46:13 Influenza, high-dose, trivalent, PF 7 completed [place] [facility] 11/17/2024 11:46:13 Influenza, split virus, trivalent, preservative 3 completed [place] [facility] 11/17/2024 11:46:13 Influenza, split virus, quadrivalent, PF 5 completed [place] [facility] 11/17/2024 11:46:13 Pneumococcal conjugate PCV20, polysaccharide [id number] conjugate, adjuvant, PF 4 completed Bubba Alcala MD Attn: Accounting,[address] [place], [address], [place] [facility] 05/01/2024 22:07:26 Influenza, high-dose, trivalent, PF 4 completed Bubba Alcala MD Attn: Accounting,[address] , [place], [address], [facility] - [facility] 07/30/2024 21:41:48 Past Encounters Encounter ID Performer Location Encounter Start Date Encounter Closed Date Diagnosis/Indication Diagnosis SNOMED-CT Code Diagnosis ICD10 Code Diagnosis Note [id number] Bubba Alcala MD [facility] (Adult Med) [address] [place] [address] 12/28/2023 15:33:31 12/28/2023 17:03:34 Proctitis 3093062 K62.89 Anticoagulant therapy 18 1641328 Z79.01 Hyperlipidemia 72466517 E78.5 Long-term drug therapy 461150570 Z79.899 Nonischemi c congestive cardiomyopathy 8493567223 04 I42.0 History of malignant neoplasm of prostate 428348854 Z85.46 Chronic ki dney disease stage 3 758467385 N18.30 Ventricula r tachycardia 33812751 I47.20 [id number] Bubba Alcala MD [facility] (Adult Med) [address] [place] [address] 04/05/2024 15:47:26 04/05/2024 17:08:10 Administration of pneumococcal vaccine 22795306 Z23 Gastroesop hageal reflux disease without esophagitis 827047394 K21.9 Dyslipidemia 443067260 E 78.5 Chronic anemia 245967108 D64.9 Inflammato ry bowel disease 52768608 K52.9 History of pulmonary embolus 869994365 Z86.711 History of malignant neoplasm of prostate 148878672 Z85.46 [id number] Bubba lAcala MD [facility] (Adult Med) [address] [place] [id number] 07/12/2024 14:26:22 07/12/2024 15:52:19 Body mass index 30+ - obesity 355455689 Z68.39 BMI 39.9 Administra tion of influenza vaccine 94696054 Z23 Dyslipidemia 991542090 E 78.5 Chronic anemia 376144804 D64.9 Gastroesop hageal reflux disease without esophagitis 483729102 K21.9 Cervical spondylosis 387 375031 M47.346 [id number] Bubba Alcala MD [facility] [facility] [place] [address] [place] [address] 12/08/2024 15:00:29 12/08/2024 16:45:43 Body mass index 30+ - obesity 367746001 Z68.39 BMI 39.9 Chronic anemia 579044861 D64.9 Gastroesop hageal reflux disease without esophagitis 895457490 K21.9 Dyslipidemia 494992749 E 78.5 Proctitis 1817117 K62.89 Anticoagulant therapy 18 8881940 Z79.01 Hyperlipidemia 85354101 E78.5 Long-term drug therapy 512708169 Z79.899 Nonischemi c congestive cardiomyopathy 3296504564 04 I42.0 History of malignant neoplasm of prostate 067347294 Z85.46 Chronic ki dney disease stage 3 522782040 N18.30 Ventricula r tachycardia 35946635 I47.20 History of pulmonary embolus 931729574 Z86.078 [id number] Bubba Alcala MD [facility] [facility] [place] [address] [place] [address] 03/16/2025 14:02:27 03/16/2025 14:50:25 Body mass index 30+ - obesity 839900734 Z68.33 BMI 39.9 Obese class I 8552501189 08695 E66.811 BMI 39.9 Gastroesop hageal reflux disease without esophagitis 865324383 K21.9 Inflammato ry bowel disease 24277381 K52.9 Chronic anemia 489448092 D64.9 Cervical spondylosis 387 311011 M47.812 Dyslipidemia 307351884 E 78.5 History of pulmonary embolus 262157481 Z86.925 [id number] Bubba Alcala MD [facility] [facility] [place] [address] [place] [id number] 04/27/2025 15:01:15 04/27/2025 16:37:50 Body mass index 30+ - obesity 455238502 Z68.34 BMI 39.9 Obese class I 4456272127 97725 E66.811 BMI 39.9 Adult [facility] examination 141516259 Z00.00 Health Risk Assessment collected and reviewed Chronic anemia 853514896 D64.9 History of pulmonary embolus 625393147 Z86.711 Gastroesop hageal reflux disease without esophagitis 097014103 K21.9 Inflammato ry bowel disease 75426129 K52.9 History of malignant neoplasm of prostate 811710635 Z85.46 Cervical spondylosis 387 100202 M47.812 Dyslipidemia 402892783 E 78.5 Health Concerns Section Related Observation LastModified by Organization Detai ls LastModified Time None Recorded Concern Status LastModified by Organization Details LastModified Time None Recorded Advance Directives Directive N: Payers Insurance Date Sequence Insurance Name Policy Number Policy Abbasi Covered Member ID Abbasi Member ID Guarantor Name 05/02/2025 1 [facility] (MEDICARE REPLACEMENT/A DVANTAGE - HMO) [id number] Marshall Olson [id number] Marshall Olson Notes Date Note Type Note [...] pain Bubba Alcala MD Attn: Accounting, [address] [place], [address], [facility] - [facility] 05/01/2024 22:15:04 07/12/2024 text/html chronic anemia h e has does not have any symptoms at this time GERD no nausea no vomiting chronic neck pain has been stable dyslipidemia trying to watch his diet history of PE no cardiopulmonary symptoms today still has some bleeding from radiation proctitis Bubba Alcala MD Attn: Accounting, [address] [facility], [place], [address], [facility] 07/30/2024 21:45:03 12/08/2024 text/html anemia [...] MD Attn: Accounting,[address] , [place], [address], [facility] - [facility] 12/08/2024 21:26:54 03/16/2025 text/html Struggling [...] MD Attn: Accounting,[address] , [place], [address], [facility] 03/16/2025 14:50:00 04/27/2025 text/html Follow up of [...] bowel disease has been stable SYDNIE Azar, [place] [facility] 05/04/2025 12:46:51
--- OUTSIDE RECORDS SUMMARY | 2025-05-22 15:49 | XMS_ITS | Clinical Summary ---
Author Organization [facility] [employer] Address [address] [facility] [place] [address] Care Team Providers Care Comber Setter Name Role Phone Jas Alcala MD Unavailable [phone] Jas Alcala MD Primary Care Provider [phone] Source Comments [facility],non-owned Affiliates and Associated Physician Practices is amultiple site organization consisting of ambulatory clinics and hospital sitesin [place], [place], [place] and [place]. This disclosure is being madepursuant to the Care Everywhere program and may not contain all information available regarding this patient. Last updated 18.[facility] [employer] Allergies Active Allergy Reactions Criticality Noted Date [...] on file Legal Sex Male 5:27 AM MANAGER BANKING Gender Identity Not on file Sexual Orientation Not on file Last Filed Vital Signs Vital Sign Reading Time Taken Comments Blood Pressure 150/99 10/22/2010 2:45 PM MANAGER [employer]ANKING Pulse 68 10/22/2010 2:45 PM MANAGER [employer]ANKING Temperature 36.6 C (97.8 F) 10/22/2010 2:45 PM MANAGER [employer]ANKING Respiratory Rate 16 10/22/2010 2:45 PM MANAGER BANKING Oxygen Saturation 97% 10/22/2010 2:45 PM MANAGER BANKING Inhaled Oxygen Concentration - - Weight 129.7 kg (286 lb) 10/22/2010 7:02 AM MANAGER BANKING Height 182.9 cm (6') 10/22/2010 7:02 AM MANAGER BANKING Body Mass Index 38.79 10/22/2010 7:02 AM MANAGER BANKING Plan of Treatment Health Maintenance Due Date [...] 2:20 PM 10/23/2010 7:05 AM Care Teams Comber Setter Relationship Specialty Start Date End Date Jas Alcala MD [address] [place] [address] PCP - General 10/22/10 Jas Alcala MD Internal Medicine 09/23/10
--- OUTSIDE RECORDS SUMMARY | 2025-05-22 15:49 | XMS_ITS ---
Author Organization [facility] Address [address] [place] [address] Care Team Providers Care Power System Operator Name Role Phone Lucio Rosas MD Unavailable Bianca Hunter MD Unavailable [phone] Hero Pinedo MD Unavailable [phone] Jas Alcala MD Primary Care Provider [phone] Lon Tomas MD Unavailable [phone] Jaycee Teresa MD Unavailable [phone] Active Problems Patient Care Coordination No te [...] He also has a history of an SC and PE. 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 -Pathology discuss in detail and all questions were answered -Refer for EUS -Refer to Oncology and Cardiothoracic surgery Miller's esophagus with high grade dysplasia Assessment & Plan (11/25/2024 9:41 AM INDEPENDENT DISTRIBUTOR): EGD September 2024 with irregular Z-line and gastric ulcers. Pathology with Barretts esophagus, indefinite for dysplasia. Repeat EGD November 2024 with Barretts esophagus, pathology with high-grade dysplasia. -Continue pantoprazole 40 mg p.o. b.i.d. History of colon polyps 11/25/2024 Assessment & Plan (11/25/2024 9:42 AM INDEPENDENT DISTRIBUTOR): Colonoscopy November 2024 with multiple tubular adenomas. -Repeat colonoscopy November 2027 Gastric ulcer 09/23/2024 Anemia due to blood loss 09/23/2024 Rectal bleeding 08/22/2024 Radiation proctitis 08/22/2024 Assessment & Plan (11/25/2024 9:41 AM INDEPENDENT DISTRIBUTOR): Colonoscopy November 2024 with severe radiation proctitis status post APC. -Consider flex sig with APC, patient advised to call office if rectal bleeding gets worse Eosinophilia 02/22/2024 Iron deficiency anemia, unspecified 02/22/2024 Anemia 02/22/2024 VT (ventricular tachycardia) 05/09/2022 Overview (05/09/2022): Added automatically from request for surgery [id number] Lower urinary tract symptoms (LUTS) 05/24/2020 Malignant neoplasm of prostate 04/25/2013 Current Treatment and Therapy Plans Hydration Therapy Plan* Plan Start Date:02/20/2025 Plan Provider:Bianca Hunter MD Linked Problems Malignant neoplasm of lower third of esophagus (HCC) Treatment Medications No medications scheduled. Other Current Plans Adult BMT/ONC - Blood and/or Platelet Administration for Outpatient* Plan Start Date:02/22/2024 Plan Provider:Nena aCno NP Linked Problems Anemia, unspecified type Treatment [...]
--- OUTSIDE RECORDS SUMMARY | 2025-05-22 15:49 | XMS_ITS | Clinical Summary ---
Author Organization [facility] Address [address] [place] [address] Care Team Providers Care Control Systems Designer Name Role Phone Lucio Rosas MD Unavailable Bianca Hunter MD Unavailable [phone] Hero Pinedo MD Unavailable [phone] Jas Alcala MD Primary Care Provider [phone] Lon Tomas MD Unavailable [phone] Jacyee Teresa MD Unavailable [phone] Allergies Active Allergy Reactions Criticality Noted Date [...] at bedtime 1200 mL 05/10/20 26 Active sucralfate (CARAFATE) 1 gram tabletIndication s:Gastric ulcer, unspecified chronicity, unspecified whether gastric ulcer hemorrhage or perforation present Take 1 tablet (1 g total) by mouth 4 (four) times a day Take 1 hour before meals and at bedtime 120 tablet 05/15/20 26 Active Active Problems Patient Care [...] He also has a history of an AK and PE. 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 -Pathology discuss in detail and all questions were answered -Refer for EUS -Refer to Oncology and Cardiothoracic surgery Mliler's esophagus with high grade dysplasia Assessment & Plan (11/25/2024 9:41 AM SEMI CONDUCTOR ASSEMBLER): EGD September 2024 with irregular Z-line and gastric ulcers. Pathology with Barretts esophagus, indefinite for dysplasia. Repeat EGD November 2024 with Barretts esophagus, pathology with high-grade dysplasia. -Continue pantoprazole 40 mg p.o. b.i.d. History of colon polyps 11/25/2024 Assessment & Plan (11/25/2024 9:42 AM SEMI CONDUCTOR ASSEMBLER): Colonoscopy November 2024 with multiple tubular adenomas. -Repeat colonoscopy November 2027 Gastric ulcer 09/23/2024 Anemia due to blood loss 09/23/2024 Rectal bleeding 08/22/2024 Radiation proctitis 08/22/2024 Assessment & Plan (11/25/2024 9:41 AM SEMI CONDUCTOR ASSEMBLER): Colonoscopy November 2024 with severe radiation proctitis status post APC. -Consider flex sig with APC, patient advised to call office if rectal bleeding gets worse Eosinophilia 02/22/2024 Iron deficiency anemia, unspecified 02/22/2024 Anemia 02/22/2024 VT (ventricular tachycardia) 05/09/2022 Overview (05/09/2022): Added automatically from request for surgery [id number] Lower urinary tract symptoms (LUTS) 05/24/2020 Malignant neoplasm of prostate 04/25/2013 Encounters Date Type Department Care Team Description 5 Orders Only [facility] Surgery [address] [place] [phone] Charlie Juarez MD Malignant neoplasm of lower third of esophagus (HCC) (Primary Dx) 5 Telephone [facility] Surgery [address] [place] [phone] Reinaldo Little RMA 5 Results Follow-Up [facility] Gastroenterology at [address] [place] [phone] Lucio Rosas MD Surgical pathology 5 Telephone [facility] Surgery [address] Floor 5 [place] [phone] Lorie Little NP 5 Telephone [facility] Gastroenterology at [address] [place] [phone] Lucio Rosas MD 5 Orders Only [facility] Gastroenterology at [address] [place] [phone] Lucio Rosas MD Gastric ulcer, unspecified chronicity, unspecified whether gastric ulcer hemorrhage or perforation present (Primary Dx) 5 Telephone [facility] Gastroenterology at [address] [place] [phone] Lucio Rosas MD 5 12:00 PM CDT Infusion [facility] at [address] [place] [address] Anemia, unspecified type (Primary Dx); History of pulmonary embolism 5 9:00 AM CDT Clinical Support [address] [place] [address] Anemia, unspecified type; History of pulmonary embolism 5 10:43 AM CDT Anesthesia Event [facility] [address] [place] [address] Hal Kellogg MD 5 10:30 AM CDT - 5 11:00 AM CDT Surgery [facility] [address] [place] [address] Lucio Rosas MD ESOPHAGOGASTRODUODENOSCOPY BIOPSY 5 9:15 AM CDT - 5 11:35 AM CDT Hospital Encounter [facility] [address] [place] [address] Lucio Rosas MD Malignant neoplasm of lower third of esophagus (HCC) Discharge Disposition: Discharge to home or self care 5 Telephone [facility] Surgery [address] [place] [address] [place] [phone] Reinaldo Little Jovana 5 Orders Only [facility] Surgery [address] [place] [address] [place] [phone] Charlie Juarez MD Malignant neoplasm of lower third of esophagus (HCC) (Primary Dx) 5 Telephone [facility] [address] [place] [address] [place] [phone] Roseanna Roa 5 9:15 AM CDT Office Visit [facility] [address] [place] [address] [address] [place] [address] Charlie Juarez MD Malignant neoplasm of lower third of esophagus (HCC) (Primary Dx) 5 10:45 AM CDT Office Visit [facility] [address] [place] [address] [address] [place] [address] Bianca Hunter MD Malignant neoplasm of lower third of esophagus (HCC) (Primary Dx) 5 12:00 PM CDT Infusion [facility] at [address] [place] [address] Anemia, unspecified type (Primary Dx); History of pulmonary embolism 5 9:00 AM CDT Clinical Support [facility] at [address] [address] Anemia, unspecified type; History of pulmonary embolism; Malignant neoplasm of lower third of esophagus (HCC) 5 Orders Only [facility] Gastroenterology at [address] [place] [address] Lucio Rosas MD Malignant neoplasm of lower third of esophagus (HCC) (Primary Dx) 5 2:30 PM CDT Clinical Support [facility] 2 Radiation Oncology [address] [place] [address] Malignant neoplasm of lower third of esophagus (HCC) (Primary Dx) 5 12:00 PM CDT Infusion [facility] at [address] [address] Anemia, unspecified type (Primary Dx); History of pulmonary embolism 5 9:00 AM CDT Clinical Support [facility] at [address] [address] Anemia, unspecified type; History of pulmonary embolism 5 10:00 AM CDT Office Visit [facility] 2 Radiation Oncology [address] [place] [phone] Hero Pinedo MD Malignant neoplasm of lower third of esophagus (HCC) (Primary Dx) 5 8:09 AM CDT - 5 11:59 PM CDT Hospital Encounter [facility] [address] [place] [address] Malignant neoplasm of lower third of esophagus (HCC) Discharge Disposition: Discharge to home or self care 5 10:45 AM CDT Infusion [facility] at [address] [phone] Malignant neoplasm of lower third of esophagus (HCC) (Primary Dx); Anemia, unspecified type 5 9:45 AM CDT Clinical Support [facility] at [address] [address] Anemia, unspecified type; History of pulmonary embolism 5 Orders Only [facility] [address] [place] [phone] Meme Dean RN Anemia, unspecified type (Primary Dx) 5 9:00 AM CDT Clinical Support [facility] at [address] [address] Anemia, unspecified type; History of pulmonary embolism 5 Telephone [facility] at [address] [phone] Francie Hassan RN 5 Orders Only [facility] Hematology [facility] [address] [address] Gertrude Zhang Anemia, unspecified type (Primary Dx) 5 9:00 AM CDT Clinical Support [facility] at [address] [address] Anemia, unspecified type; History of pulmonary embolism 5 Telephone [facility] at [address] [phone] Lalitha Salcedo, WILBER 5 1:00 PM CDT Office Visit [facility] [address] [place] [phone] Bianca Hunter MD Malignant neoplasm of lower third of esophagus (HCC) (Primary Dx) 5 12:30 PM CDT Clinical Support [facility] [place] at [address] [address] Malignant neoplasm of lower third of esophagus (HCC); Anemia, unspecified type; History of pulmonary embolism 5 Telephone [facility] Physicians [facility] Oncology [address] [place] [address] [address] [place] [address] Georgette Velasco RN 5 11:30 AM CDT Treatment [facility] 2 Radiation Oncology [address] [place] [phone] Hero Pinedo MD 5 Completion of Therapy [facility] Office [facility] 2 Radiation Oncology [address] [place] [phone] Hero Pinedo MD 5 Telephone [facility] Oncology [address] [place] [phone] Bianca Hunter MD INR results 5 Orders Only RAD ONC TREATMENTS Miscellaneou s, Not In File 5 3:00 PM CDT Lab [facility] [place] at [address] [address] 5 12:30 PM CDT Infusion [facility] at [address] [place] [address] Malignant neoplasm of lower third of esophagus (HCC) (Primary Dx) 5 11:30 AM CDT Treatment [facility] 2 Radiation Oncology [address] [place] [address] 5 Telephone [facility] Bone Marrow Transplant [address] [place] [phone] Ceci Antony NP 5 OTV [facility] 2 Radiation Oncology [address] [place] [phone] Hero Pinedo MD 5 Orders Only RAD ONC TREATMENTS Miscellaneou s, Not In File 5 11:35 AM CDT Treatment [facility] 2 Radiation Oncology [address] [place] [phone] Hero Pinedo MD 5 11:30 AM CDT Treatment [facility] 2 Radiation Oncology [address] [place] [phone] Hero Pinedo MD 5 9:45 AM CDT Office Visit [facility] [address] [place] [address] [address] [place] [address] Bianca Hunter MD Malignant neoplasm of lower third of esophagus (HCC) (Primary Dx); Abnormal coagulation profile 5 9:15 AM CDT Clinical Support [facility] at [address] [address] Malignant neoplasm of lower third of esophagus (HCC); Abnormal coagulation profile 5 Orders Only RAD ONC TREATMENTS Miscellaneou s, Not In File 5 12:15 PM CDT Infusion [facility] at [address] [place] [address] Malignant neoplasm of lower third of esophagus (HCC) (Primary Dx) 5 11:30 AM CDT Treatment [facility] 2 Radiation Oncology [address] [place] [address] 5 Orders Only [facility] 2 Radiation Oncology [address] [place] [phone] Hero Pinedo MD 5 Orders Only [facility] [address] [place] [address] 180 [place] [address] Meme Dean RN 5 Orders Only [facility] 2 Radiation Oncology [address] [place] [phone] Hero Pinedo MD Malignant neoplasm of lower third of esophagus (HCC) (Primary Dx) 5 Orders Only [facility] 2 Radiation Oncology [address] [place] [phone] Hero Pinedo MD 5 Orders Only RAD ONC TREATMENTS Miscellaneou s, Not In File 5 Orders Only [facility] 2 Radiation Oncology [address] [place] [phone] Hero Pinedo MD Malignant neoplasm of lower third of esophagus (HCC) (Primary Dx) 5 11:30 AM CDT Treatment [facility] 2 Radiation Oncology [address] [place] [address] 5 Orders Only RAD ONC TREATMENTS Miscellaneou s, Not In File 5 2:30 PM CDT Treatment [facility] 2 Radiation Oncology [address] [place] [address] 5 11:30 AM CDT Infusion [facility] at [address] [phone] Malignant neoplasm of lower third of esophagus (HCC) (Primary Dx) 5 Orders Only RAD ONC TREATMENTS Miscellaneou s, Not In File 5 Orders Only [facility] [address] [place] [phone] Meme Dean RN 5 Orders Only [facility] [address] [place] [phone] Meme Dean, RN Malignant neoplasm of lower third of esophagus (HCC) (Primary Dx) from Last 3 Months Immunizations Immunization Administration [...] TONSILLECTOMY Tonsillectomy - (Added by TW Conv) DE REPAIR FIRST ABDOMINAL WA LL HERNIA Ventral Hernia Repair - 11/2013 (Added by TW Conv) w/poss mesh CATARACT EXTRACTION, BILATERAL COLONOSCOPY URETHRAL DILATION N/A UPPER GASTROINTESTINAL ENDOSCOPY PORT PLACEMENT CHEST >5 YEARS 01/11/2025 N/A Medical History Medical History Date Comments Chronic bronchitis with productive mucopurulent cough (HCC) Prostate cancer (HCC) Hepatitis A Neuropathy 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AK (myocardial infarction) (HCC) 2018 PE (pulmonary thromboembolism) [...] on file Legal Sex Male 9:38 AM SEMI CONDUCTOR ASSEMBLER Gender Identity Not on file Sexual Orientation Not on file Occupation Industry Job Start Date Job End Date [employer] Not on file Not on file Not [...] Completed 12/13/2024 Medical Devices Implanted Type Area Restorative Aide Device Identifier Shelf Expiration Date Model / Serial / Lot Screws And Rods Spine Lumbar [employer]a Power Port 8fr [id number] - [id number] Implanted:Qty: 1 on 01/11/2025 by Linda Cardenas PA at [facility] [employer] 08/29/2029 [id number] / / [id number] Procedures Procedure Name Priority Date/Time Associated Diagnosis [...] Read Routine (OP Routine) 12/13/2024 7:09 AM SEMI CONDUCTOR ASSEMBLER Malignant neoplasm of lower third of esophagus (HCC) COLONOSCOPY 11/17/2024 9:34 AM SEMI CONDUCTOR ASSEMBLER from Last 3 Months or Most Recently Relevant to Health Maintenance Results * Transfuse RBC (05/11/2025 2:28 PM CDT) Blood Francisco Jones DO BLOOD TRANSFUSION ORDERABLES Final Result * Prepare RBC: 1 Units (05/11/2025 10:01 AM CDT) Units requested 1 Comment:Testing performed by : [facility], [address] [place] [address]., [address] Units requested Ready IS[facility]AC SERNA Comment:Testing performed by : [address] [address] Unit Number [id number] Product code [id number] [facility] Blood Expiration Date [id number] [facility] Product Blood Type (for scanning) 6200 [facility] Product Blood Type APOS [facility] Dispense Status [facility] 05/11/2025 10:0 1 AM CDT 05/11/2025 10:01 AM CDT Nena Cano NP BLOOD BANK PRODUCT ORDERABL ES Final Result [facility] [address] [facility] [place] [address] * (ABNORMAL) Differential, auto (05/11/2025 9:00 AM CDT) Neutrophil abs 2.24 1.50 - 6.50 K/cumm Comment:Testing performed by : [address] [address] Imm gran abs 0.02 0.00 - 0.10 K/cumm ISAAC Comment:Testing performed by : [address] [address] Lymphocyte abs 0.58(L) 0.80 - 3.30 K/cumm ISAAC Comment:Testing performed by : [address] [address] Monocyte abs 0.53 0.20 - 0.80 K/cumm ISAAC Comment:Testing performed by : [address] [address] Eosinophil abs 0.27 0.00 - 0.50 K/cumm ISAAC Comment:Testing performed by : [address] [address] Basophil abs 0.03 0.00 - 0.10 K/cumm ISAAC Comment:Testing performed by : [address] [address] Neutrophil pct 61.1 % [facility] Comment: Interpretive Data Percent cell count reference ranges are not reported, since discordance with absolute values may lead to misinterpretation of CBC data. Current Interpretive Data was last revised on 2018. Testing performed by: [address] [address] Imm gran pct 0.5 % [facility] Comment: Interpretive Data Percent cell count reference ranges are not reported, since discordance with absolute values may lead to misinterpretation of CBC data. Current Interpretive Data was last revised on 2018. Testing performed by: [address] [address] Lymphocyte pct 15.8 % [facility] Comment: Interpretive Data Percent cell count reference ranges are not reported, since discordance with absolute values may lead to misinterpretation of CBC data. Current Interpretive Data was last revised on 2018. Testing performed by: [address] [address] Monocyte pct 14.4 % [facility] Comment: Interpretive Data Percent cell count reference ranges are not reported, since discordance with absolute values may lead to misinterpretation of CBC data. Current Interpretive Data was last revised on 2018. Testing performed by: [address] [address] Eosinophil pct 7.4 % [facility] Comment: Interpretive Data Percent cell count reference ranges are not reported, since discordance with absolute values may lead to misinterpretation of CBC data. Current Interpretive Data was last revised on 2018. Testing performed by: [address] [address] Basophil pct 0.8 % [facility] Comment: Interpretive Data Percent cell count reference ranges are not reported, since discordance with absolute values may lead to misinterpretation of CBC data. Current Interpretive Data was last revised on 2018. Testing performed by: [address] [address] Blood 05/11/2025 9:00 AM CDT 05/11/2025 9:03 AM CDT us Nena Cano NP LAB BLOOD ORDERABLES Final Result [facility] [address] [facility] [place] [address] * (ABNORMAL) Iron profile w/ IBC (05/11/2025 9:00 AM CDT) [facility] Iron 73 50 - 150 mcg/dL Comment:Testing performed by : [address] [address] TIBC 241(L) 250 - 400 mcg/dL ISAAC SERNA Comment:Testing performed by : [address] [address] Transferrin saturation 30 20 - 50 % [facility] SERNA Comment:Testing performed by : [address] [address] Blood 05/11/2025 9:00 AM CDT 05/11/2025 9:35 AM CDT Nena Cano PUBLICATION SPECIALIST LAB BLOOD ORDERABLES Final Result Performing Organization Address City/State/[facility] Co de Phone Number [facility] [address] [facility] [place] [address] * (ABNORMAL) CBC with auto differential (05/11/2025 9:00 AM CDT) [facility] WBC 3.67(L) 3.80 - 9.90 K/cumm Comment:Testing performed by : [address] [address] Hgb 8.0(L) 13.0 - 17.5 g/dL [facility] SERNA Comment:Testing performed by : [address] [address] Hct 26.0(L) 38.9 - 50.3 % [facility] SERNA Comment:Testing performed by : [address] [address] Plt 184 150 - 400 K/cumm ISAAC SERNA Comment:Testing performed by : [address] [address] MPV 8.6(L) 9.1 - 12.3 fL IS[facility] SERNA Comment:Testing performed by : [address] [address] RBC 2.53(L) 4.30 - 5.80 M/cumm ISAAC Comment:Testing performed by : [address] [address] MCV 102.8(H) 81.3 - 96.4 fL ISAAC Comment:Testing performed by : [address] [address] MCH 31.6 27.1 - 33.3 pg ISAAC Comment:Testing performed by : [address] [address] MCHC 30.8(L) 32.3 - 35.7 g/dL ISAAC Comment:Testing performed by : [address] [address] RDW CV 17.3(H) 11.1 - 14.9 % ISAAC Comment:Testing performed by : [address] [address] RDW SD 65.1(H) 35.7 - 48.1 fL ISAAC Comment:Testing performed by : [address] [address] NRBC abs 0.00 0.00 - 0.01 K/cumm ISAAC Comment:Testing performed by : [address] [address] ANC Prelim 2.24 1.50 - 6.50 K/cumm [facility] Comment: Interpretive Data The rapid ANC is a preliminary automated count and may vary from the final ANC (Neut Abs) reported in the WBC differential that follows. Current interpretive data was last revised 2025. Testing performed by: [address] [address] Blood 05/11/2025 9:00 AM CDT 05/11/2025 9:03 AM CDT us Nena Cano NP LAB BLOOD ORDERABLES Final Result [facility] [address] [facility] [place] [address] * ABO/Rh (05/11/2025 9:00 AM CDT) [facility] ABO/Rh A Positive Comment:Testing performed by : [address] [address] Blood 05/11/2025 9:00 AM CDT 05/11/2025 9:33 AM CDT Narrative [facility] - 05/11/2025 9:59 AM CDT Has the patient had Daratumumab or Isatuximab in the past 6 months?->Unknown Nena Cano PUBLICATION SPECIALIST LAB BLOOD BANK TEST ORDERAB LES Final Result Performing Organization Address [facility] Co de Phone Number [address] [address] * (ABNORMAL) Reticulocyte Count (05/11/2025 9:00 AM CDT) [facility] Retics, absolute 105(H) 20 - 87 K/cumm Comment:Testing performed by : [address] [address] Retics 4.1(H) 0.4 - 2.9 % IS[facility]AC Comment:Testing performed by : [address] [address] Reticulocyte Hgb 34.4 30.5 - 38.0 pg ISAAC Comment:Testing performed by : [address] [address] Blood 05/11/2025 9:00 AM CDT 05/11/2025 9:03 AM CDT Nena Cano PUBLICATION SPECIALIST LAB BLOOD ORDERABLES Final Result Performing Organization Address [facility] Co de Phone Number [place] [address] [facility] [place] [address] * Crossmatch (05/11/2025 9:00 AM CDT) [facility] Crossmatch Compatible ISAAC Unit number for crossmatch [id number] [facility] Blood 05/11/2025 9:00 AM CDT 05/11/2025 9:33 AM CDT Jas Alcala MD LAB BLOOD BANK TEST ORDERABL ES Final Result Performing Organization Address [facility] Co de Phone Number [address] [place] [address] * Antibody screen (05/11/2025 9:00 AM CDT) Divina, indirect, Gel Interpretation Negative ABSC Comment:Testing performed by : [address] [address] Blood 05/11/2025 9:00 AM CDT 05/11/2025 9:33 AM CDT Narrative [facility] - 05/11/2025 10:12 AM CDT Has the patient had Daratumumab or Isatuximab in the past 6 months?->Unknown Nena Cano NP LAB BLOOD BANK TEST ORDERAB LES Final Result Performing Organization Address [facility] de Phone Number [address] [address] * Ferritin (05/11/2025 9:00 AM CDT) Ferritin 71 30 - 400 ng/mL Comment:Testing performed by : [address] [address] Blood 05/11/2025 9:00 AM CDT 05/11/2025 9:35 AM CDT Nena Cano NP LAB BLOOD ORDERABLES Final Result Performing Organization Address City/[facility] Co de Phone Number [address] [place] [address] * Surgical pathology (05/10/2025 10:54 AM CDT) Tissue (Esophageal biopsy) 05/10/2025 10:54 AM CDT Tissue specimen (specimen) (Esophageal biopsy) 05/10/2025 10:56 AM CDT Narrative PATHOLOGY [facility] - 05/17/2025 3:59 PM CDT [facility] Department of Pathology [address] [place] [address] Note to Patients: This report may contain [...] : 1950 (Age: 75) Gender: M Address: [address] [place] [address] Hospital #: [id number] Service: Gastro Location: Patient Type: [facility] OUTPATIENT Taken: 05/10/2025 Received: 05/10/2025 Accessioned: 05/10/2025 [...] examination is performed. Microscopic examination is performed. [facility] Clinical History: The patient is a [...] cm. Entirely submitted. Labeled B1. Jar 0. [facility]/05/10/2025 13:56 SHAD Gonzalez, PA (ASCP) Microscopic slide review and interpretation for this case was performed at [facility] [facility], Department of Surgical Pathology, [address] [facility] [place], [place] [id number], [place] [address] CLIA # [id number] us Lucio Rosas MD LAB PATHOLOGY ORDERABLES Final R esult PATHOLOGY [facility] * EGD (05/10/2025 10:45 AM CDT) Anatomical Region Laterality Modality Other Narrative Procedure Note Lucio Rosas MD - 05/10/2025 10:45 AM CDT [facility] GI ENDOSCOPY Patient Name: Brennen Olson Procedure Date: 05/10/2025 10:45 AM Date of : 1950 Admit Type: Outpatient Age: 75 Gender: Male Attending MD: Lucio Rosas M.D. Room: [facility] ENDOSCOPY ROOM 03 Note Status: [...] On: 05/10/2025 10:45 AM Recognized by the [employer] for promoting quality in endoscopy Lucio Rosas MD ENDOSCOPY PROCEDURES Final Resul t * (ABNORMAL) POC Blood Gas and Chemistries, Venous - (05/10/2025 10:13 AM CDT) pH,kwame POC 7.35 7.32 - 7.43 pCO2, kwame POC 40 40 - 50 mmHg [facility] pO2,kwame POC 32 mmHg [facility] Comment: Interpretive Data No reference range established. Current interpretive data was last revised 2020. HCO3, kwame (Calc) POC 22 20 - 30 mmol/L [facility] Base excess, kwame POC -3 mmol/L [facility] Comment: Interpretive Data No reference range established. Current interpretive data was last revised 2020. Hemoglobin, kwame POC 9.2(L) 13.0 - 17.5 g/dL [facility] Hematocrit, kwame POC 27.0(L) 38.9 - 50.3 % [facility] Sodium, kwame POC 141 135 - 145 mmol/L [facility] Potassium, kwame POC 4.4 3.3 - 4.9 mmol/L [facility] Comment: Interpretive Data This method is not able to assess for hemolysis, which may falsely increase potassium concentrations. If further testing is needed to evaluate this result, consider in-laboratory plasma potassium. Current Interpretive Data was last revised on 2022. Glucose, kwame POC 86 70 - 199 mg/dL [facility] Ionized Calcium, kwame POC 5.10 4.50 - 5.10 mg/dL [facility] Blood 05/10/2025 10:1 3 AM CDT 05/10/2025 10:13 AM CDT Lucio Rosas MD LAB POCT ORDERABLES - DEVICE Fin al Result Performing Organization Address City/State/[facility] Co de Phone Number [facility] [address] [facility] [place] [address] * Transfuse RBC (04/26/2025 2:25 PM CDT) Blood Bianca Hunter MD BLOOD TRANSFUSION OR DERABLES Final Result * Prepare RBC: 1 Units (04/26/2025 9:45 AM CDT) Units requested 1 Comment:Testing performed by : [address], [address] Units requested Ready [facility]AAC Comment:Testing performed by : [address] [address] Unit Number [id number] Product code [id number] [facility] Blood Expiration Date [id number] [facility] Product Blood Type (for scanning) 6200 [facility] Product Blood Type APOS [facility] Dispense Status DISPENSED [facility] Blood 04/26/2025 9:45 AM CDT 04/26/2025 9:45 AM CDT Bianca Hunter MD BLOOD BANK PRODUCT O RDERABLES Final Result Performing Organization Address City/[facility] de Phone Number [place] [address] [facility] [place] [address] * (ABNORMAL) eGFR (04/26/2025 9:01 AM CDT) [...] was last reviewed 2021. Testing performed by: [address] [address] Blood 04/26/2025 9:01 AM CDT 04/26/2025 9:02 AM CDT Bianca Hunter MD LAB BLOOD ORDERABLES Final Result Performing Organization Address [facility] Co de Phone Number [facility] [address] [facility] [place] [address] * (ABNORMAL) Differential, auto (04/26/2025 9:01 AM CDT) Pathologist [facility] Neutrophil abs 2.29 1.50 - 6.50 K/cumm Comment:Testing performed by : [address] [address] Imm gran abs 0.02 0.00 - 0.10 K/cumm ISAAC Comment:Testing performed by : [address], [place]., [address] Lymphocyte abs 0.68(L) 0.80 - 3.30 K/cumm ISAAC Comment:Testing performed by : [address], [place]., [address] Monocyte abs 0.57 0.20 - 0.80 K/cumm ISAAC Comment:Testing performed by : [address], [place]., [address] Eosinophil abs 0.26 0.00 - 0.50 K/cumm ISAAC Comment:Testing performed by : [address], [place]., [address] Basophil abs 0.03 0.00 - 0.10 K/cumm ISAAC Comment:Testing performed by : [address] [address] Neutrophil pct 59.4 % [facility] Comment: Interpretive Data Percent cell count reference ranges are not reported, since discordance with absolute values may lead to misinterpretation of CBC data. Current Interpretive Data was last revised on 2018. Testing performed by: [address] [address] Imm gran pct 0.5 % [facility] Comment: Interpretive Data Percent cell count reference ranges are not reported, since discordance with absolute values may lead to misinterpretation of CBC data. Current Interpretive Data was last revised on 2018. Testing performed by: [address] [address] Lymphocyte pct 17.7 % [facility] Comment: Interpretive Data Percent cell count reference ranges are not reported, since discordance with absolute values may lead to misinterpretation of CBC data. Current Interpretive Data was last revised on 2018. Testing performed by: [address] [address] Monocyte pct 14.8 % [facility] Comment: Interpretive Data Percent cell count reference ranges are not reported, since discordance with absolute values may lead to misinterpretation of CBC data. Current Interpretive Data was last revised on 2018. Testing performed by: [address] [address] Eosinophil pct 6.8 % [facility] Comment: Interpretive Data Percent cell count reference ranges are not reported, since discordance with absolute values may lead to misinterpretation of CBC data. Current Interpretive Data was last revised on 2018. Testing performed by: [address] [address] Basophil pct 0.8 % [facility] Comment: Interpretive Data Percent cell count reference ranges are not reported, since discordance with absolute values may lead to misinterpretation of CBC data. Current Interpretive Data was last revised on 2018. Testing performed by: [address] [address] Blood 04/26/2025 9:01 AM CDT 04/26/2025 9:02 AM CDT Nena Cano PUBLICATION SPECIALIST LAB BLOOD ORDERABLES Final Result Performing Organization Address [facility] de Phone Number [address] [address] * (ABNORMAL) Iron profile w/ IBC (04/26/2025 9:01 AM CDT) Iron 75 50 - 150 mcg/dL Comment:Testing performed by : [address] [address] TIBC 231(L) 250 - 400 mcg/dL IS[facility]AC Comment:Testing performed by : [address] [address] Transferrin saturation 32 20 - 50 % ISAAC Comment:Testing performed by : [address] [address] Blood 04/26/2025 9:01 AM CDT 04/26/2025 9:51 AM CDT Nena Cano PUBLICATION SPECIALIST LAB BLOOD ORDERABLES Final Result Performing Organization Address [facility] Co de Phone Number [address] [place] [address] * (ABNORMAL) CBC with auto differential (04/26/2025 9:01 AM CDT) [facility] WBC 3.85 3.80 - 9.90 K/cumm Comment:Testing performed by : [address] [address] Hgb 8.1(L) 13.0 - 17.5 g/dL ISAAC Comment:Testing performed by : [address] [address] Hct 26.2(L) 38.9 - 50.3 % ISAAC Comment:Testing performed by : [address] [address] Plt 199 150 - 400 K/cumm ISAAC Comment:Testing performed by : [address] [address] MPV 8.2(L) 9.1 - 12.3 fL [facility] Comment:Testing performed by : [address] [address] RBC 2.64(L) 4.30 - 5.80 M/cumm ISAAC Comment:Testing performed by : [address] [address] MCV 99.2(H) 81.3 - 96.4 fL [facility] Comment:Testing performed by : [address] [address] MCH 30.7 27.1 - 33.3 pg [facility] Comment:Testing performed by : [address] [address] MCHC 30.9(L) 32.3 - 35.7 g/dL [facility] Comment:Testing performed by : [address] [address] RDW CV 19.6(H) 11.1 - 14.9 % ISAAC Comment:Testing performed by : [address] [address] RDW SD 70.4(H) 35.7 - 48.1 fL [facility] Comment:Testing performed by : [address], [address] NRBC abs 0.00 0.00 - 0.01 K/cumm ISAAC Comment:Testing performed by : [address] [address] ANC Prelim 2.29 1.50 - 6.50 K/cumm [facility] Comment: Interpretive Data The rapid ANC is a preliminary automated count and may vary from the final ANC (Neut Abs) reported in the WBC differential that follows. Current interpretive data was last revised 2025. Testing performed by: [address] [address] Blood 04/26/2025 9:01 AM CDT 04/26/2025 9:02 AM CDT Nena Cano LAB BLOOD ORDERABLES Final Result Performing Organization Address [facility] de Phone Number [address] [place] [address] * ABO/Rh (04/26/2025 9:01 AM CDT) ABO/Rh A Positive Comment:Testing performed by : [address] [address] Blood 04/26/2025 9:01 AM CDT 04/26/2025 9:44 AM CDT Narrative IS[facility] - 04/26/2025 10:36 AM CDT Has the patient had Daratumumab or Isatuximab in the past 6 months?->Unknown Nena Cano LAB BLOOD BANK TEST ORDERAB LES Final Result Performing Organization Address [facility] Co de Phone Number [address] [address] * (ABNORMAL) Reticulocyte Count (04/26/2025 9:01 AM CDT) Retics, absolute 126(H) 20 - 87 K/cumm Comment:Testing performed by : [address] [address] Retics 4.8(H) 0.4 - 2.9 % [facility] Comment:Testing performed by : [facility], [address] [place] [address]., [address] Reticulocyte Hgb 32.6 30.5 - 38.0 pg ISAAC Comment:Testing performed by : [address] [address] Blood 04/26/2025 9:01 AM CDT 04/26/2025 9:02 AM CDT Nena Cano NP LAB BLOOD ORDERABLES Final Result Performing Organization Address City/[facility]/ZIP Co de Phone Number [address] [place] [address] * Crossmatch (04/26/2025 9:01 AM CDT) Crossmatch Compatible [facility] Unit number for crossmatch [id number] [facility] Blood 04/26/2025 9:01 AM CDT 04/26/2025 9:44 AM CDT Bianca Hunter MD LAB BLOOD BANK TEST ORDERABLES Final Result Performing Organization Address City/[facility] Co de Phone Number [address] [address] * Antibody screen (04/26/2025 9:01 AM CDT) Divina, indirect, Gel Interpretation Negative [facility]SC Comment:Testing performed by : [address] [address] Blood 04/26/2025 9:01 AM CDT 04/26/2025 9:44 AM CDT Narrative [facility] - 04/26/2025 10:36 AM CDT Has the patient had Daratumumab or Isatuximab in the past 6 months?->Unknown Nena Cano NP LAB BLOOD BANK TEST ORDERAB LES Final Result Performing Organization Address City/[facility] Co de Phone Number ISAAC [address] [address] * Ferritin (04/26/2025 9:01 AM CDT) [facility] Ferritin 47 30 - 400 ng/mL Comment:Testing performed by : [address] [address] Blood 04/26/2025 9:01 AM CDT 04/26/2025 9:51 AM CDT Nena Cano PUBLICATION SPECIALIST LAB BLOOD ORDERABLES Final Result Performing Organization Address [facility] Co de Phone Number ISAAC [address] [address] * (ABNORMAL) Comprehensive metabolic panel (04/26/2025 9:01 AM CDT) [facility] Sodium 138 135 - 145 mmol/L Comment:Testing performed by : [address] [address] Potassium, pl 4.3 3.3 - 4.9 mmol/L [facility] Comment:Testing performed by : [address] [address] Chloride 107 97 - 110 mmol/L [facility] Comment:Testing performed by : [address] [address] CO2 22 22 - 32 mmol/L [facility] Comment:Testing performed by : [address] [address] Anion gap 9 2 - 15 mmol/L [facility] Comment:Testing performed by : [address] [address] BUN 17 6 - 25 mg/dL [facility] Comment:Testing performed by : [address] [address] Creatinine 1.60(H) 0.80 - 1.30 mg/dL [facility] Comment:Testing performed by : [address] [address] Glucose 92 70 - 199 mg/dL ISAAC [...] was last revised 2022. Testing performed by: [address] [address] Calcium 9.2 8.5 - 10.3 mg/dL [facility] Comment:Testing performed by : [address] [address] Bilirubin, total 0.3 0.1 - 1.2 mg/dL IS[facility] Comment:Testing performed by : [address] [address] Protein, pl 6.3(L) 6.5 - 8.5 g/dL [facility] Comment:Testing performed by : [address] [address] Albumin 3.6 3.5 - 5.0 g/dL [facility] Comment:Testing performed by : [address] [address] Alk phos 58 40 - 130 Units/L [facility] Comment:Testing performed by : [address] [address] ALT 10 7 - 55 Units/L [facility] Comment:Testing performed by : [address] [address] AST 14 10 - 50 Units/L [facility] Comment:Testing performed by : [address] [address] Blood 04/26/2025 9:01 AM CDT 04/26/2025 9:02 AM CDT us Bianca Hunter MD LAB BLOOD ORDERABLES Final Result Performing Organization Address City/[facility] Co de Phone Number ISAAC [address] [place] [address] * Transfuse RBC (04/12/2025 2:07 PM CDT) Blood Eli Toscano NP BLOOD TRANSFUSION OR DERABLES Final Result * Prepare RBC: 1 Units (04/12/2025 10:48 AM CDT) Units requested 1 Comment:Testing performed by : [address] [address] Units requested Ready ISAAC Comment:Testing performed by : [address] [address] Unit Number [id number] [facility] [id number] [facility] Blood Expiration Date [id number] [facility] Product Blood Type (for scanning) 6200 [facility] Product Blood Type APOS [facility] Dispense Status DISPENSED [facility] Blood 04/12/2025 10:4 8 AM CDT 04/12/2025 10:48 AM CDT Bianca Hunter MD BLOOD BANK PRODUCT O RDERABLES Final Result Performing Organization Address City/[facility] Co de Phone Number [address] [place] [address] * Differential, auto (04/12/2025 9:09 AM CDT) Neutrophil abs 2.16 1.50 - 6.50 K/cumm Comment:Testing performed by : [address] [address] Imm gran abs 0.02 0.00 - 0.10 K/cumm [facility] SERNA Comment:Testing performed by : [address] [address] Lymphocyte abs 0.81 0.80 - 3.30 K/cumm [facility]AC Comment:Testing performed by : [address], [place]., [address] Monocyte abs 0.51 0.20 - 0.80 K/cumm [facility] Comment:Testing performed by : [address], [place]., [address] Eosinophil abs 0.19 0.00 - 0.50 K/cumm [facility] Comment:Testing performed by : [address], [place]., [address] Basophil abs 0.04 0.00 - 0.10 K/cumm [facility] Comment:Testing performed by : [address] [address] Neutrophil pct 57.9 % [facility] Comment: Interpretive Data Percent cell count reference ranges are not reported, since discordance with absolute values may lead to misinterpretation of CBC data. Current Interpretive Data was last revised on 2018. Testing performed by: [address] [address] Imm gran pct 0.5 % [facility] Comment: Interpretive Data Percent cell count reference ranges are not reported, since discordance with absolute values may lead to misinterpretation of CBC data. Current Interpretive Data was last revised on 2018. Testing performed by: [address] [address] Lymphocyte pct 21.7 % [facility] Comment: Interpretive Data Percent cell count reference ranges are not reported, since discordance with absolute values may lead to misinterpretation of CBC data. Current Interpretive Data was last revised on 2018. Testing performed by: [address] [address] Monocyte pct 13.7 % [facility] Comment: Interpretive Data Percent cell count reference ranges are not reported, since discordance with absolute values may lead to misinterpretation of CBC data. Current Interpretive Data was last revised on 2018. Testing performed by: [address] [address] Eosinophil pct 5.1 % [facility] Comment: Interpretive Data Percent cell count reference ranges are not reported, since discordance with absolute values may lead to misinterpretation of CBC data. Current Interpretive Data was last revised on 2018. Testing performed by: [address] [address] Basophil pct 1.1 % [facility] SERNA Comment: Interpretive Data Percent cell count reference ranges are not reported, since discordance with absolute values may lead to misinterpretation of CBC data. Current Interpretive Data was last revised on 2018. Testing performed by: [address] [address] Blood 04/12/2025 9:09 AM CDT 04/12/2025 9:10 AM CDT Nena Cano LAB BLOOD ORDERABLES Final Result Performing Organization Address [facility] de Phone Number IS[facility] [address] [place] [address] * (ABNORMAL) Iron profile w/ IBC (04/12/2025 9:09 AM CDT) Pathologist [facility] Iron 104 50 - 150 mcg/dL Comment:Testing performed by : [address] [address] TIBC 226(L) 250 - 400 mcg/dL [facility] SERNA Comment:Testing performed by : [address] [address] Transferrin saturation 46 20 - 50 % [facility] Comment:Testing performed by : [address] [address] Blood 04/12/2025 9:09 AM CDT 04/12/2025 9:45 AM CDT Nena Cano PUBLICATION SPECIALIST LAB BLOOD ORDERABLES Final Result Performing Organization Address City/[facility] Co de Phone Number DAYANA[address] [place] [address] * (ABNORMAL) CBC with auto differential (04/12/2025 9:09 AM CDT) WBC 3.73(L) 3.80 - 9.90 K/cumm Comment:Testing performed by : [address] [address] Hgb 7.9(L) 13.0 - 17.5 g/dL [facility] Comment:Testing performed by : [address] [address] Hct 25.0(L) 38.9 - 50.3 % [facility] Comment:Testing performed by : [address] [address] Plt 215 150 - 400 K/cumm [facility] Comment:Testing performed by : [address] [address] MPV 8.5(L) 9.1 - 12.3 fL [facility] Comment:Testing performed by : [address] [address] RBC 2.63(L) 4.30 - 5.80 M/cumm [facility]AC Comment:Testing performed by : [address] [address] MCV 95.1 81.3 - 96.4 fL [facility] Comment:Testing performed by : [address] [address] MCH 30.0 27.1 - 33.3 pg [facility] Comment:Testing performed by : [address] [address] MCHC 31.6(L) 32.3 - 35.7 g/dL [facility] Comment:Testing performed by : [address], [address] RDW CV 20.8(H) 11.1 - 14.9 % [facility] Comment:Testing performed by : [address], [address] RDW SD 71.6(H) 35.7 - 48.1 fL [facility] Comment:Testing performed by : [address] [address] NRBC abs 0.00 0.00 - 0.01 K/cumm [facility] Comment:Testing performed by : [address] [address] ANC Prelim 2.16 1.50 - 6.50 K/cumm [facility] Comment: Interpretive Data The rapid ANC is a preliminary automated count and may vary from the final ANC (Neut Abs) reported in the WBC differential that follows. Current interpretive data was last revised 2025. Testing performed by: [address] [address] Blood 04/12/2025 9:09 AM CDT 04/12/2025 9:10 AM CDT Nena Cano LAB BLOOD ORDERABLES Final Result Performing Organization Address [facility] de Phone Number [address] [place] [address] * ABO/Rh (04/12/2025 9:09 AM CDT) Pathologist [facility] ABO/Rh A Positive Comment:Testing performed by : [address] [address] Blood 04/12/2025 9:09 AM CDT 04/12/2025 9:45 AM CDT Narrative [facility] - 04/12/2025 10:25 AM CDT Has the patient had Daratumumab or Isatuximab in the past 6 months?->Unknown Nena Cano LAB BLOOD BANK TEST ORDERAB LES Final Result Performing Organization Address [facility] de Phone Number [place] [address] [facility] [place] [address] * (ABNORMAL) Reticulocyte Count (04/12/2025 9:09 AM CDT) Retics, absolute 108(H) 20 - 87 K/cumm Comment:Testing performed by : [address] [address] Retics 4.1(H) 0.4 - 2.9 % [facility] Comment:Testing performed by : [address] [place] [address] Reticulocyte Hgb 34.1 30.5 - 38.0 pg [facility] Comment:Testing performed by : [address] [address] Blood 04/12/2025 9:09 AM CDT 04/12/2025 9:10 AM CDT Nena Cano PUBLICATION SPECIALIST LAB BLOOD ORDERABLES Final Result Performing Organization Address City/[facility]/ZIP Co de Phone Number [address] [place] [address] * Crossmatch (04/12/2025 9:09 AM CDT) Crossmatch Compatible [facility] Unit number for crossmatch [id number] [facility] Blood 04/12/2025 9:09 AM CDT 04/12/2025 9:48 AM CDT Nena Cano NP LAB BLOOD BANK TEST ORDERAB LES Final Result Performing Organization Address [facility] Co de Phone Number [address] [place] [address] * Antibody screen (04/12/2025 9:09 AM CDT) Divina, indirect, Gel Interpretation Negative ABSC Comment:Testing performed by : [address] [address] Blood 04/12/2025 9:09 AM CDT 04/12/2025 9:45 AM CDT Narrative [facility] - 04/12/2025 10:43 AM CDT Has the patient had Daratumumab or Isatuximab in the past 6 months?->Unknown Nena Cano PUBLICATION SPECIALIST LAB BLOOD BANK TEST ORDERAB LES Final Result Performing Organization Address [facility] Co de Phone Number [address] [place] [address] * Ferritin (04/12/2025 9:09 AM CDT) Ferritin 58 30 - 400 ng/mL Comment:Testing performed by : [facility], [address] [place] [address], [place]., [address] Blood 04/12/2025 9:09 AM CDT 04/12/2025 9:45 AM CDT us Nena Cano PUBLICATION SPECIALIST LAB BLOOD ORDERABLES Final Result [facility] [address] [facility] [place] [address] * PET/CT FDG Skull to Thigh (04/10/2025 [...] liver and <= 2x SUV max liver Gnxbhcyj-ui-kcvjre: >2x SUV max liver and <= 3x [...] Naomi Pimentel M.D. FT: FT Report ID: [id number] Reading Location: [id number] Procedure Note Naomi Martini MD - 04/10/2025 [...] liver and <= 2x SUV max liver Wxmaonch-tz-copxqf: >2x SUV max liver and <= 3x [...] Naomi Pimentel M.D. FT: FT Report ID: [id number] Reading Location: [place] [address] Bianca Hunter MD IMG PET PROCEDURES F inal Result * POCT glucose (04/10/2025 8:22 AM CDT) [facility] Signature Glucose, POC 88 70 - 199 mg/dL Comment:Testing performed by : [facility], [address] [place] [address]., [address] Blood 04/10/2025 8:22 AM CDT 04/10/2025 8:22 AM CDT Bianca Hunter MD LAB POCT ORDERABLES - DEVICE Final Result [facility] [address] [facility] [place] [address] * Differential, auto (04/04/2025 10:10 AM CDT) [facility] Neutrophil abs 2.03 1.50 - 6.50 K/cumm Comment:Testing performed by : [address] [address] Imm gran abs 0.02 0.00 - 0.10 K/cumm [facility] Comment:Testing performed by : [address] [address] Lymphocyte abs 0.96 0.80 - 3.30 K/cumm [facility] Comment:Testing performed by : [address] [address] Monocyte abs 0.51 0.20 - 0.80 K/cumm [facility] Comment:Testing performed by : [address] [address] Eosinophil abs 0.15 0.00 - 0.50 K/cumm [facility] Comment:Testing performed by : [address] [address] Basophil abs 0.03 0.00 - 0.10 K/cumm [facility] [facility] Comment:Testing performed by : [address] [address] Neutrophil pct 54.9 % [facility] Comment: Interpretive Data Percent cell count reference ranges are not reported, since discordance with absolute values may lead to misinterpretation of CBC data. Current Interpretive Data was last revised on 2018. Testing performed by: [address] [address] Imm gran pct 0.5 % [facility] Comment: Interpretive Data Percent cell count reference ranges are not reported, since discordance with absolute values may lead to misinterpretation of CBC data. Current Interpretive Data was last revised on 2018. Testing performed by: [address] [address] Lymphocyte pct 25.9 % [facility] Comment: Interpretive Data Percent cell count reference ranges are not reported, since discordance with absolute values may lead to misinterpretation of CBC data. Current Interpretive Data was last revised on 2018. Testing performed by: [address] [address] Monocyte pct 13.8 % [facility] Comment: Interpretive Data Percent cell count reference ranges are not reported, since discordance with absolute values may lead to misinterpretation of CBC data. Current Interpretive Data was last revised on 2018. Testing performed by: [address] [address] Eosinophil pct 4.1 % [facility] Comment: Interpretive Data Percent cell count reference ranges are not reported, since discordance with absolute values may lead to misinterpretation of CBC data. Current Interpretive Data was last revised on 2018. Testing performed by: [address] [address] Basophil pct 0.8 % [facility] Comment: Interpretive Data Percent cell count reference ranges are not reported, since discordance with absolute values may lead to misinterpretation of CBC data. Current Interpretive Data was last revised on 2018. Testing performed by: [address] [address] Blood 04/04/2025 10:1 0 AM CDT 04/04/2025 10:10 AM CDT Nena Cano PUBLICATION SPECIALIST LAB BLOOD ORDERABLES Final Result [facility] [address] [facility] [place] [address] * (ABNORMAL) Iron profile w/ IBC (04/04/2025 10:10 AM CDT) Iron 138 50 - 150 mcg/dL Comment:Testing performed by : [address] [address] TIBC 228(L) 250 - 400 mcg/dL [facility] Comment:Testing performed by : [address] [address] Transferrin saturation 61(H) 20 - 50 % [facility] Comment:Testing performed by : [address] [address] Blood 04/04/2025 10:1 0 AM CDT 04/04/2025 11:44 AM CDT us Nena Mamta Jerome PUBLICATION SPECIALIST LAB BLOOD ORDERABLES Final Result [facility] [address] [facility] Department [place] [address] * (ABNORMAL) CBC with auto differential (04/04/2025 10:10 AM CDT) WBC 3.70(L) 3.80 - 9.90 K/cumm Comment:Testing performed by : [address] [address] Hgb 8.2(L) 13.0 - 17.5 g/dL [facility] Comment:Testing performed by : [address] [address] Hct 26.2(L) 38.9 - 50.3 % [facility] Comment:Testing performed by : [address] [address] Plt 205 150 - 400 K/cumm [facility] Comment:Testing performed by : [address] [address] MPV 9.1 9.1 - 12.3 fL [facility] Comment:Testing performed by : [address] [address] RBC 2.79(L) 4.30 - 5.80 M/cumm [facility] Comment:Testing performed by : [address] [address] MCV 93.9 81.3 - 96.4 fL [facility] Comment:Testing performed by : [address] [address] MCH 29.4 27.1 - 33.3 pg [facility] Comment:Testing performed by : [address] [address] MCHC 31.3(L) 32.3 - 35.7 g/dL [facility] Comment:Testing performed by : [address] [address] RDW CV 19.9(H) 11.1 - 14.9 % [facility] Comment:Testing performed by : [address] [address] RDW SD 68.3(H) 35.7 - 48.1 fL [facility] Comment:Testing performed by : [address] [address] NRBC abs 0.00 0.00 - 0.01 K/cumm [facility] Comment:Testing performed by : [address] [address] ANC Prelim 2.03 1.50 - 6.50 K/cumm [facility] Comment: Interpretive Data The rapid ANC is a preliminary automated count and may vary from the final ANC (Neut Abs) reported in the WBC differential that follows. Current interpretive data was last revised 2025. Testing performed by: [address] [address] Blood 04/04/2025 10:1 0 AM CDT 04/04/2025 10:10 AM CDT us Nena Cano PUBLICATION SPECIALIST LAB BLOOD ORDERABLES Final Result [facility] [address] [facility] Department [place] [address] * Reticulocyte Count (04/04/2025 10:10 AM CDT) Retics, absolute 78 20 - 87 K/cumm Comment:Testing performed by : [address] [address] Retics 2.8 0.4 - 2.9 % [facility] Comment:Testing performed by : [address] [address] Reticulocyte Hgb 30.5 30.5 - 38.0 pg [facility] Comment:Testing performed by : [address] [address] Blood 04/04/2025 10:1 0 AM CDT 04/04/2025 10:10 AM CDT Nena Oleary Jerome PUBLICATION SPECIALIST LAB BLOOD ORDERABLES Final Result [facility] [place] [address] * Ferritin (04/04/2025 10:10 AM CDT) Ferritin 65 30 - 400 ng/mL Comment:Testing performed by : [address] [address] Blood 04/04/2025 10:1 0 AM CDT 04/04/2025 11:44 AM CDT Nena Venturacleo PUBLICATION SPECIALIST LAB BLOOD ORDERABLES Final Result Performing Organization Address City/[facility] Co de Phone Number ISAAC [address] [address] * Differential, auto (03/29/2025 9:10 AM CDT) Pathologist [facility] Neutrophil abs 1.83 1.50 - 6.50 K/cumm Comment:Testing performed by : [address] [address] Imm gran abs 0.01 0.00 - 0.10 K/cumm [facility] Comment:Testing performed by : [address] [address] Lymphocyte abs 0.94 0.80 - 3.30 K/cumm [facility] Comment:Testing performed by : [address] [address] Monocyte abs 0.60 0.20 - 0.80 K/cumm [facility] Comment:Testing performed by : [address] [address] Eosinophil abs 0.16 0.00 - 0.50 K/cumm [facility] Comment:Testing performed by : [address] [address] Basophil abs 0.04 0.00 - 0.10 K/cumm [facility] Comment:Testing performed by : [address] [place] [address] Neutrophil pct 51.0 % [facility] Comment: Interpretive Data Percent cell count reference ranges are not reported, since discordance with absolute values may lead to misinterpretation of CBC data. Current Interpretive Data was last revised on 2018. Testing performed by: [address] [address] Imm gran pct 0.3 % [facility] Comment: Interpretive Data Percent cell count reference ranges are not reported, since discordance with absolute values may lead to misinterpretation of CBC data. Current Interpretive Data was last revised on 2018. Testing performed by: [address] [address] Lymphocyte pct 26.3 % [facility] Comment: Interpretive Data Percent cell count reference ranges are not reported, since discordance with absolute values may lead to misinterpretation of CBC data. Current Interpretive Data was last revised on 2018. Testing performed by: [address] [address] Monocyte pct 16.8 % [facility] Comment: Interpretive Data Percent cell count reference ranges are not reported, since discordance with absolute values may lead to misinterpretation of CBC data. Current Interpretive Data was last revised on 2018. Testing performed by: [address] [address] Eosinophil pct 4.5 % [facility] Comment: Interpretive Data Percent cell count reference ranges are not reported, since discordance with absolute values may lead to misinterpretation of CBC data. Current Interpretive Data was last revised on 2018. Testing performed by: [address] [address] Basophil pct 1.1 % [facility] Comment: Interpretive Data Percent cell count reference ranges are not reported, since discordance with absolute values may lead to misinterpretation of CBC data. Current Interpretive Data was last revised on 2018. Testing performed by: [address] [address] Blood 03/29/2025 9:10 AM CDT 03/29/2025 9:11 AM CDT Nena Cano PUBLICATION SPECIALIST LAB BLOOD ORDERABLES Final Result Performing Organization Address City/[facility]/ZIP Co de Phone Number [facility] [address] [facility] [place] [address] * (ABNORMAL) Iron profile w/ IBC (03/29/2025 9:10 AM CDT) [facility] Iron 49(L) 50 - 150 mcg/dL Comment:Testing performed by : [address] [address] TIBC 201(L) 250 - 400 mcg/dL [facility] SERNA Comment:Testing performed by : [address] [address] Transferrin saturation 24 20 - 50 % [facility] Comment:Testing performed by : [address] [address] Blood 03/29/2025 9:10 AM CDT 03/29/2025 9:47 AM CDT Nena Cano PUBLICATION SPECIALIST LAB BLOOD ORDERABLES Final Result Performing Organization Address City/[facility]/ZIP Co de Phone Number IS[facility] [address] [facility] [place] [address] * (ABNORMAL) CBC with auto differential (03/29/2025 9:10 AM CDT) [facility] WBC 3.58(L) 3.80 - 9.90 K/cumm Comment:Testing performed by : [address] [address] Hgb 8.8(L) 13.0 - 17.5 g/dL [facility] Comment:Testing performed by : [address] [address] Hct 27.7(L) 38.9 - 50.3 % [facility] Comment:Testing performed by : [address] [address] Plt 192 150 - 400 K/cumm [facility] Comment:Testing performed by : [address] [place] [address] MPV 8.8(L) 9.1 - 12.3 fL [facility] Comment:Testing performed by : [address], [address] RBC 3.01(L) 4.30 - 5.80 M/cumm [facility] Comment:Testing performed by : [address], [address] MCV 92.0 81.3 - 96.4 fL [facility] Comment:Testing performed by : [address], [address] MCH 29.2 27.1 - 33.3 pg [facility] Comment:Testing performed by : [address] [address] MCHC 31.8(L) 32.3 - 35.7 g/dL [facility] Comment:Testing performed by : [address], [address] RDW CV 20.7(H) 11.1 - 14.9 % [facility] Comment:Testing performed by : [address], [address] RDW SD 69.5(H) 35.7 - 48.1 fL [facility] Comment:Testing performed by : [address] [address] NRBC abs 0.00 0.00 - 0.01 K/cumm [facility] Comment:Testing performed by : [address], [address] ANC Prelim 1.83 1.50 - 6.50 K/cumm [facility] Comment: Interpretive Data The rapid ANC is a preliminary automated count and may vary from the final ANC (Neut Abs) reported in the WBC differential that follows. Current interpretive data was last revised 2025. Testing performed by: [address], [address] Blood 03/29/2025 9:10 AM CDT 03/29/2025 9:11 AM CDT Nena Cano PUBLICATION SPECIALIST LAB BLOOD ORDERABLES Final Result Performing Organization Address City/[facility]/ZIP Co de Phone Number DAYANA[address] [place] [address] * Reticulocyte Count (03/29/2025 9:10 AM CDT) [facility] Retics, absolute 79 20 - 87 K/cumm Comment:Testing performed by : [facility], [address] [place] [address]., [address] Retics 2.6 0.4 - 2.9 % [facility] Comment:Testing performed by : [facility], [address] [place] [address]., [address] Reticulocyte Hgb 32.0 30.5 - 38.0 pg [facility] Comment:Testing performed by : [address] [address] Blood 03/29/2025 9:10 AM CDT 03/29/2025 9:11 AM CDT Nena Cano PUBLICATION SPECIALIST LAB BLOOD ORDERABLES Final Result Performing Organization Address [facility] Co de Phone Number [address] [address] * Ferritin (03/29/2025 9:10 AM CDT) [facility] Ferritin 76 30 - 400 ng/mL Comment:Testing performed by : [address] [address] Blood 03/29/2025 9:10 AM CDT 03/29/2025 9:47 AM CDT Nena Cano PUBLICATION SPECIALIST LAB BLOOD ORDERABLES Final Result [address] [place] [address] * (ABNORMAL) Differential, auto (03/15/2025 9:10 AM CDT) [facility] Neutrophil abs 1.35(L) 1.50 - 6.50 K/cumm Comment:Testing performed by : [address], [place]., [address] Imm gran abs 0.02 0.00 - 0.10 K/cumm [facility] Comment:Testing performed by : [address], [place]., [address] Lymphocyte abs 0.76(L) 0.80 - 3.30 K/cumm [facility] Comment:Testing performed by : [address], [place]., [address] Monocyte abs 0.69 0.20 - 0.80 K/cumm [facility] Comment:Testing performed by : [address], [place]., [address] Eosinophil abs 0.05 0.00 - 0.50 K/cumm [facility] Comment:Testing performed by : [address] [address] Basophil abs 0.02 0.00 - 0.10 K/cumm [facility] Comment:Testing performed by : [address] [address] Neutrophil pct 46.7 % [facility] Comment: Interpretive Data Percent cell count reference ranges are not reported, since discordance with absolute values may lead to misinterpretation of CBC data. Current Interpretive Data was last revised on 2018. Testing performed by: [address] [address] Imm gran pct 0.7 % [facility] Comment: Interpretive Data Percent cell count reference ranges are not reported, since discordance with absolute values may lead to misinterpretation of CBC data. Current Interpretive Data was last revised on 2018. Testing performed by: [address] [address] Lymphocyte pct 26.3 % [facility] Comment: Interpretive Data Percent cell count reference ranges are not reported, since discordance with absolute values may lead to misinterpretation of CBC data. Current Interpretive Data was last revised on 2018. Testing performed by: [address] [address] Monocyte pct 23.9 % [facility] Comment: Interpretive Data Percent cell count reference ranges are not reported, since discordance with absolute values may lead to misinterpretation of CBC data. Current Interpretive Data was last revised on 2018. Testing performed by: [address] [address] Eosinophil pct 1.7 % [facility] Comment: Interpretive Data Percent cell count reference ranges are not reported, since discordance with absolute values may lead to misinterpretation of CBC data. Current Interpretive Data was last revised on 2018. Testing performed by: [address] [address] Basophil pct 0.7 % [facility] Comment: Interpretive Data Percent cell count reference ranges are not reported, since discordance with absolute values may lead to misinterpretation of CBC data. Current Interpretive Data was last revised on 2018. Testing performed by: [address] [address] Blood 03/15/2025 9:10 AM CDT 03/15/2025 9:12 AM CDT Nena Cano PUBLICATION SPECIALIST LAB BLOOD ORDERABLES Final Result [facility] [address] [facility] Department [place] [address] * (ABNORMAL) Iron profile w/ IBC (03/15/2025 9:10 AM CDT) Iron 57 50 - 150 mcg/dL Comment:Testing performed by : [address] [address] TIBC 190(L) 250 - 400 mcg/dL [facility] Comment:Testing performed by : [address] [address] Transferrin saturation 30 20 - 50 % [facility] Comment:Testing performed by : [address] [address] Blood 03/15/2025 9:10 AM CDT 03/15/2025 9:39 AM CDT us Nena Cano PUBLICATION SPECIALIST LAB BLOOD ORDERABLES Final Result [facility] [address] [facility] Department [place] [address] * (ABNORMAL) CBC with auto differential (03/15/2025 9:10 AM CDT) WBC 2.89(L) 3.80 - 9.90 K/cumm Comment:Testing performed by : [address] [address] Hgb 10.0(L) 13.0 - 17.5 g/dL [facility] Comment:Testing performed by : [address], [address] Hct 31.2(L) 38.9 - 50.3 % [facility] Comment:Testing performed by : [address] [address] Plt 225 150 - 400 K/cumm [facility] Comment:Testing performed by : [address] [address] MPV 9.0(L) 9.1 - 12.3 fL [facility] Comment:Testing performed by : [address] [address] RBC 3.42(L) 4.30 - 5.80 M/cumm [facility] Comment:Testing performed by : [address] [address] MCV 91.2 81.3 - 96.4 fL [facility] Comment:Testing performed by : [address] [address] MCH 29.2 27.1 - 33.3 pg [facility] Comment:Testing performed by : [address], [address] MCHC 32.1(L) 32.3 - 35.7 g/dL [facility] Comment:Testing performed by : [address], [address] RDW CV 20.9(H) 11.1 - 14.9 % [facility] Comment:Testing performed by : [address] [address] RDW SD 69.1(H) 35.7 - 48.1 fL [facility] Comment:Testing performed by : [address] [address] NRBC abs 0.00 0.00 - 0.01 K/cumm [facility] Comment:Testing performed by : [address] [address] ANC Prelim 1.35(L) 1.50 - 6.50 K/cumm [facility] Comment: Interpretive Data The rapid ANC is a preliminary automated count and may vary from the final ANC (Neut Abs) reported in the WBC differential that follows. Current interpretive data was last revised 2025. Testing performed by: [address] [address] Blood 03/15/2025 9:10 AM CDT 03/15/2025 9:12 AM CDT us Nena Cano PUBLICATION SPECIALIST LAB BLOOD ORDERABLES Final Result [facility] Department [place] [address] * (ABNORMAL) Reticulocyte Count (03/15/2025 9:10 AM CDT) Retics, absolute 99(H) 20 - 87 K/cumm Comment:Testing performed by : [address] [address] Retics 2.9 0.4 - 2.9 % [facility] Comment:Testing performed by : [address] [address] Reticulocyte Hgb 33.0 30.5 - 38.0 pg [facility] SERNA Comment:Testing performed by : [address] [address] Blood 03/15/2025 9:10 AM CDT 03/15/2025 9:12 AM CDT us Nena Cano PUBLICATION SPECIALIST LAB BLOOD ORDERABLES Final Result Performing Organization Address City/[facility]/ZIP Co de Phone Number ISAAC [address] [place] [address] * Ferritin (03/15/2025 9:10 AM CDT) Ferritin 131 30 - 400 ng/mL Comment:Testing performed by : [address] [address] Blood 03/15/2025 9:10 AM CDT 03/15/2025 9:39 AM CDT Nena Cano PUBLICATION SPECIALIST LAB BLOOD ORDERABLES Final Result Performing Organization Address [facility] de Phone Number DAYANA[address] [place] [address] * (ABNORMAL) Protime-INR (02/28/2025 12:40 PM CDT) PT 41.1(H) 12.0 - 14.6 sec Comment: Ref Range High Testing performed by: [address] [address] INR 4.4(H) 0.9 - 1.2 [facility] Comment: Ref Range High Interpretive data Oral anticoagulant therapeutic ranges: Venous thromboembolism prophylaxis or treatment: 2.0-3.0 CARDIOLOGY Standard range: 2.0-3.0 High-intensity range: 2.5-3.5 Refer to indication-specific guidelines for appropriate target ranges for prosthetic heart valve replacement. Current interpretive data was last revised on 2019. Testing performed by: [address] [address] Blood 02/28/2025 12:4 0 PM CDT 02/28/2025 1:32 PM CDT Jas Alcala MD LAB BLOOD ORDERABLES Final R esult Performing Organization Address City/[facility] Co de Phone Number DAYANA[address] [place] [address] * Blood smear review (02/28/2025 12:03 PM CDT) RBC morphology Consistent with RBC Indicies Comment:Testing performed by : [facility], [address] [place] [address]., [address] Platelet estimate Adequate [facility] Comment:Testing performed by : [facility], [address] [place] [address]., [address] Blood 02/28/2025 12:0 3 PM CDT 02/28/2025 12:05 PM CDT us Bianca Hunter MD LAB BLOOD ORDERABLES Final Result [facility] DAPHNE [address] [facility] Department [place] [address] * eGFR (02/28/2025 12:03 PM CDT) eGFR [...] was last reviewed 2021. Testing performed by: [facility], [address] [place] [address]., [address] Blood 02/28/2025 12:0 3 PM CDT 02/28/2025 12:05 PM CDT us Bianca Hunter MD LAB BLOOD ORDERABLES Final Result [facility] [address] [facility] Department [place] [address] * (ABNORMAL) Differential, auto (02/28/2025 12:03 PM CDT) Neutrophil abs 0.91(L) 1.50 - 6.50 K/cumm Comment:Testing performed by : [address] [address] Imm gran abs 0.06 0.00 - 0.10 K/cumm [facility] Comment:Testing performed by : [address] [address] Lymphocyte abs 0.33(L) 0.80 - 3.30 K/cumm [facility] Comment:Testing performed by : [address] [address] Monocyte abs 0.41 0.20 - 0.80 K/cumm [facility] Comment:Testing performed by : [address] [address] Eosinophil abs 0.04 0.00 - 0.50 K/cumm [facility] Comment:Testing performed by : [address] [address] Basophil abs 0.02 0.00 - 0.10 K/cumm [facility] Comment:Testing performed by : [address] [address] Neutrophil pct 51.4 % [facility] Comment: Differential consistent with previous result. Interpretive Data Percent cell count reference ranges are not reported, since discordance with absolute values may lead to misinterpretation of CBC data. Current Interpretive Data was last revised on 2018. Testing performed by: [address] [address] Imm gran pct 3.4 % [facility] Comment: Interpretive Data Percent cell count reference ranges are not reported, since discordance with absolute values may lead to misinterpretation of CBC data. Current Interpretive Data was last revised on 2018. Testing performed by: [address] [address] Lymphocyte pct 18.6 % [facility] Comment: Interpretive Data Percent cell count reference ranges are not reported, since discordance with absolute values may lead to misinterpretation of CBC data. Current Interpretive Data was last revised on 2018. Testing performed by: [address] [address] Monocyte pct 23.2 % [facility] Comment: Interpretive Data Percent cell count reference ranges are not reported, since discordance with absolute values may lead to misinterpretation of CBC data. Current Interpretive Data was last revised on 2018. Testing performed by: [address] [address] Eosinophil pct 2.3 % [facility] Comment: Interpretive Data Percent cell count reference ranges are not reported, since discordance with absolute values may lead to misinterpretation of CBC data. Current Interpretive Data was last revised on 2018. Testing performed by: [address] [address] Basophil pct 1.1 % [facility] Comment: Interpretive Data Percent cell count reference ranges are not reported, since discordance with absolute values may lead to misinterpretation of CBC data. Current Interpretive Data was last revised on 2018. Testing performed by: [address] [address] Blood 02/28/2025 12:0 3 PM CDT 02/28/2025 12:05 PM CDT us Bianca Hunter MD LAB BLOOD ORDERABLES Final Result [facility] [address] [facility] Department [place] [address] * (ABNORMAL) Iron profile w/ IBC (02/28/2025 12:03 PM CDT) [facility] Iron 56 50 - 150 mcg/dL Comment:Testing performed by : [address] [address] TIBC 164(L) 250 - 400 mcg/dL [facility] SERNA Comment:Testing performed by : [address] [address] Transferrin saturation 34 20 - 50 % [facility] Comment:Testing performed by : [address] [address] Blood 02/28/2025 12:0 3 PM CDT 02/28/2025 1:32 PM CDT Nena Cano PUBLICATION SPECIALIST LAB BLOOD ORDERABLES Final Result [facility] [address] [facility] [place] [address] * (ABNORMAL) CBC with auto differential (02/28/2025 12:03 PM CDT) WBC 1.77(L) 3.80 - 9.90 K/cumm Comment:Testing performed by : [address] [address] Hgb 9.3(L) 13.0 - 17.5 g/dL [facility] Comment:Testing performed by : [address] [address] Hct 28.9(L) 38.9 - 50.3 % [facility] Comment:Testing performed by : [address] [address] Plt 168 150 - 400 K/cumm [facility] Comment:Testing performed by : [address] [address] MPV 9.5 9.1 - 12.3 fL [facility] Comment:Testing performed by : [address] [address] RBC 3.22(L) 4.30 - 5.80 M/cumm [facility] SERNA Comment:Testing performed by : [address] [address] MCV 89.8 81.3 - 96.4 fL [facility] Comment:Testing performed by : [address] [address] MCH 28.9 27.1 - 33.3 pg [facility] Comment:Testing performed by : [address] [address] MCHC 32.2(L) 32.3 - 35.7 g/dL [facility] SERNA Comment:Testing performed by : [address] [address] RDW CV 18.7(H) 11.1 - 14.9 % [facility] Comment:Testing performed by : [address] [address] RDW SD 58.7(H) 35.7 - 48.1 fL [facility] Comment:Testing performed by : [address] [address] NRBC abs 0.00 0.00 - 0.01 K/cumm [facility] Comment:Testing performed by : [address] [address] ANC Prelim 0.91(L) 1.50 - 6.50 K/cumm [facility] Comment: Interpretive Data The rapid ANC is a preliminary automated count and may vary from the final ANC (Neut Abs) reported in the WBC differential that follows. Current interpretive data was last revised 2025. Testing performed by: [address] [address] Blood 02/28/2025 12:0 3 PM CDT 02/28/2025 12:05 PM CDT us Bianca Hunter MD LAB BLOOD ORDERABLES Final Result [facility] [address] [facility] [place] [address] * (ABNORMAL) Reticulocyte Count (02/28/2025 12:03 PM CDT) Retics, absolute 86 20 - 87 K/cumm Comment:Testing performed by : [address] [address] Retics 2.7 0.4 - 2.9 % [facility] Comment:Testing performed by : [address] [address] Reticulocyte Hgb 30.4(L) 30.5 - 38.0 pg [facility] SERNA Comment:Testing performed by : [address] [address] Blood 02/28/2025 12:0 3 PM CDT 02/28/2025 12:05 PM CDT Nena Cano PUBLICATION SPECIALIST LAB BLOOD ORDERABLES Final Result Performing Organization Address City/[facility] Co de Phone Number [address] [place] [address] * Ferritin (02/28/2025 12:03 PM CDT) [facility] Ferritin 208 30 - 400 ng/mL Comment:Testing performed by : [address] [address] Blood 02/28/2025 12:0 3 PM CDT 02/28/2025 1:32 PM CDT Nena Cano PUBLICATION SPECIALIST LAB BLOOD ORDERABLES Final Result Performing Organization Address City/[facility] Co de Phone Number [address] [place] [address] * (ABNORMAL) Comprehensive metabolic panel (02/28/2025 12:03 PM CDT) [facility] Sodium 138 135 - 145 mmol/L Comment:Testing performed by : [address] [address] Potassium, pl 3.6 3.3 - 4.9 mmol/L [facility] SERNA Comment:Testing performed by : [address] [address] Chloride 106 97 - 110 mmol/L [facility]NA Comment:Testing performed by : [address] [address] CO2 22 22 - 32 mmol/L [facility] SERNA Comment:Testing performed by : [address] [address] Anion gap 10 2 - 15 mmol/L [facility]AC Comment:Testing performed by : [address] [address] BUN 12 6 - 25 mg/dL [facility]AC Comment:Testing performed by : [address], [place]., [address] Creatinine 1.10 0.80 - 1.30 mg/dL [facility]AC Comment:Testing performed by : [address] [address] Glucose 91 70 - 199 mg/dL ISAAC [...] was last revised 2022. Testing performed by: [address] [address] Calcium 8.7 8.5 - 10.3 mg/dL [facility] Comment:Testing performed by : [address] [address] Bilirubin, total 0.4 0.1 - 1.2 mg/dL [facility] Comment:Testing performed by : [address] [address] Protein, pl 5.6(L) 6.5 - 8.5 g/dL [facility] Comment:Testing performed by : [address] [address] Albumin 3.2(L) 3.5 - 5.0 g/dL [facility] Comment:Testing performed by : [address] [address] Alk phos 64 40 - 130 Units/L [facility] Comment:Testing performed by : [address] [address] ALT 14 7 - 55 Units/L [facility] Comment:Testing performed by : [facility], [address] [place] [address]., [address] AST 19 10 - 50 Units/L ISAAC Comment:Testing performed by : [facility], [address] [place] [address]., [address] Blood 02/28/2025 12:0 3 PM CDT 02/28/2025 12:05 PM CDT us Bianca Hunter MD LAB BLOOD ORDERABLES Final Result Performing Organization Address City/[facility]/ZIP Co de Phone Number [facility] [address] [facility] [place] [address] * RAD ONC ARIA SESSION [...] Comment: Ref Range High Testing performed by: [facility], [address] [place] [address]., [address] INR 5.9(C) 0.9 - 1.2 [facility] SERNA Comment: Ref Range High Critical value. Results called to and read back by: Critical Result called to and read back by Ceci Antony NP for [facility], DATE: 2025-02-24 18:09:13 BY: Adrianna MascorroCharlene [email or web address] Interpretive data Oral anticoagulant therapeutic ranges: Venous thromboembolism prophylaxis or treatment: 2.0-3.0 CARDIOLOGY Standard range: 2.0-3.0 High-intensity range: 2.5-3.5 Refer to indication-specific guidelines for appropriate target ranges for prosthetic heart valve replacement. Current interpretive data was last revised on 2019. Testing performed by: [facility], [address] [place] [address]., [address] Blood 02/24/2025 2:55 PM CDT 02/24/2025 4:04 PM CDT us Jas Alcala MD LAB BLOOD ORDERABLES Final R esult [facility] [address] [facility] [place] [address] * RAD ONC ARIA SESSION [...] ONCOLOGY ORD ERABLES Final Result [facility] * eGFR (02/23/2025 9:31 AM CDT) eGFR [...] was last reviewed 2021. Testing performed by: [facility], [address] [place] [address]., [address] Blood 02/23/2025 9:31 AM CDT 02/23/2025 9:46 AM CDT us Bianca Hunter MD LAB BLOOD ORDERABLES Final Result [facility] [address] [facility] [place] [address] * (ABNORMAL) Differential, auto (02/23/2025 9:31 AM CDT) Neutrophil abs 0.19(C) 1.50 - 6.50 K/cumm Comment: This result has been called to Meme Dean RN Epic Secure Chat by [id number] on 02/23/2025 09:58:21, and has been read back. Testing performed by: [address] [address] Imm gran abs 0.01 0.00 - 0.10 K/cumm [facility] Comment:Testing performed by : [address] [address] Lymphocyte abs 0.20(L) 0.80 - 3.30 K/cumm [facility] Comment:Testing performed by : [address] [address] Monocyte abs 0.40 0.20 - 0.80 K/cumm [facility] Comment:Testing performed by : [address] [address] Eosinophil abs 0.03 0.00 - 0.50 K/cumm [facility] Comment:Testing performed by : [address] [address] Basophil abs 0.01 0.00 - 0.10 K/cumm [facility] Comment:Testing performed by : [address] [address] Neutrophil pct 22.6 % [facility] Comment: Interpretive Data Percent cell count reference ranges are not reported, since discordance with absolute values may lead to misinterpretation of CBC data. Current Interpretive Data was last revised on 2018. Testing performed by: [address] [address] Imm gran pct 1.2 % [facility] Comment: Interpretive Data Percent cell count reference ranges are not reported, since discordance with absolute values may lead to misinterpretation of CBC data. Current Interpretive Data was last revised on 2018. Testing performed by: [address] [address] Lymphocyte pct 23.8 % [facility] Comment: Interpretive Data Percent cell count reference ranges are not reported, since discordance with absolute values may lead to misinterpretation of CBC data. Current Interpretive Data was last revised on 2018. Testing performed by: [address] [address] Monocyte pct 47.6 % [facility] Comment: Interpretive Data Percent cell count reference ranges are not reported, since discordance with absolute values may lead to misinterpretation of CBC data. Current Interpretive Data was last revised on 2018. Testing performed by: [address] [address] Eosinophil pct 3.6 % [facility] Comment: Interpretive Data Percent cell count reference ranges are not reported, since discordance with absolute values may lead to misinterpretation of CBC data. Current Interpretive Data was last revised on 2018. Testing performed by: [address] [address] Basophil pct 1.2 % [facility] Comment: Interpretive Data Percent cell count reference ranges are not reported, since discordance with absolute values may lead to misinterpretation of CBC data. Current Interpretive Data was last revised on 2018. Testing performed by: [address] [address] Blood 02/23/2025 9:31 AM CDT 02/23/2025 9:46 AM CDT Bianca Hunter MD LAB BLOOD ORDERABLES Final Result [facility] [address] [facility] [place] [address] * (ABNORMAL) CBC with auto differential (02/23/2025 9:31 AM CDT) WBC 0.84(C) 3.80 - 9.90 K/cumm Comment: This result has been called to Meme Dean RN Epic Secure Chat by [id number] on 02/23/2025 09:58:21, and has been read back. Testing performed by: [address] [place] [address] Hgb 9.0(L) 13.0 - 17.5 g/dL [facility] Comment:Testing performed by : [address], [address] Hct 28.2(L) 38.9 - 50.3 % [facility] Comment:Testing performed by : [address] [address] Plt 164 150 - 400 K/cumm [facility] Comment:Testing performed by : [address], [address] MPV 9.3 9.1 - 12.3 fL [facility] Comment:Testing performed by : [address], [address] RBC 3.14(L) 4.30 - 5.80 M/cumm [facility] Comment:Testing performed by : [address], [address] MCV 89.8 81.3 - 96.4 fL [facility] Comment:Testing performed by : [address], [address] MCH 28.7 27.1 - 33.3 pg [facility] Comment:Testing performed by : [address], [address] MCHC 31.9(L) 32.3 - 35.7 g/dL [facility] Comment:Testing performed by : [address], [address] RDW CV 18.1(H) 11.1 - 14.9 % [facility] Comment:Testing performed by : [address], [address] RDW SD 57.3(H) 35.7 - 48.1 fL [facility] Comment:Testing performed by : [address] [address] NRBC abs 0.00 0.00 - 0.01 K/cumm [facility] Comment:Testing performed by : [address] [address] ANC Prelim 0.19(L) 1.50 - 6.50 K/cumm [facility] Comment: Interpretive Data The rapid ANC is a preliminary automated count and may vary from the final ANC (Neut Abs) reported in the WBC differential that follows. Current interpretive data was last revised 2025. Testing performed by: [address] [address] Morphologic Screen Results confirmed by manual morphology review. [facility] Comment:Testing performed by : [address] [address] Blood 02/23/2025 9:31 AM CDT 02/23/2025 9:46 AM CDT Bianca Hunter MD LAB BLOOD ORDERABLES Final Result [facility] [address] [facility] [place] [address] * (ABNORMAL) Protime-INR (02/23/2025 9:31 AM CDT) PT 49.1(H) 12.0 - 14.6 sec Comment: Ref Range High Testing performed by: [address] [address] INR 5.5(C) 0.9 - 1.2 [facility] Comment: Ref Range High Critical value. Results called to and read back by: Critical Result called to and read back by Meme Dean RN [facility] Secure Chat, DATE: 2025-02-23 11:55:31 BY: [id number] Interpretive data Oral anticoagulant therapeutic ranges: Venous thromboembolism prophylaxis or treatment: 2.0-3.0 CARDIOLOGY Standard range: 2.0-3.0 High-intensity range: 2.5-3.5 Refer to indication-specific guidelines for appropriate target ranges for prosthetic heart valve replacement. Current interpretive data was last revised on 2019. Testing performed by: [address] [address] Blood 02/23/2025 9:31 AM CDT 02/23/2025 11:32 AM CDT us Bianca Hunter MD LAB BLOOD ORDERABLES Final Result [facility] [address] [facility] [place] [address] * (ABNORMAL) Comprehensive metabolic panel (02/23/2025 9:31 AM CDT) Sodium 142 135 - 145 mmol/L Comment:Testing performed by : [address] [address] Potassium, pl 3.7 3.3 - 4.9 mmol/L [facility] Comment:Testing performed by : [address] [address] Chloride 109 97 - 110 mmol/L [facility] Comment:Testing performed by : [address] [address] CO2 22 22 - 32 mmol/L [facility] Comment:Testing performed by : [address] [address] Anion gap 11 2 - 15 mmol/L [facility] Comment:Testing performed by : [address] [address] BUN 15 6 - 25 mg/dL [facility] Comment:Testing performed by : [address] [address] Creatinine 1.20 0.80 - 1.30 mg/dL [facility] Comment:Testing performed by : [address] [address] Glucose 102 70 - 199 mg/dL [facility] [...] was last revised 2022. Testing performed by: [address], [address] Calcium 8.6 8.5 - 10.3 mg/dL [facility] Comment:Testing performed by : [address] [address] Bilirubin, total 0.4 0.1 - 1.2 mg/dL [facility] Comment:Testing performed by : [address] [address] Protein, pl 5.8(L) 6.5 - 8.5 g/dL [facility] Comment:Testing performed by : [address] [address] Albumin 3.2(L) 3.5 - 5.0 g/dL [facility] Comment:Testing performed by : [address], [address] Alk phos 58 40 - 130 Units/L [facility] Comment:Testing performed by : [address], [address] ALT 11 7 - 55 Units/L [facility] Comment:Testing performed by : [address], [address] AST 16 10 - 50 Units/L [facility] Comment:Testing performed by : [address] [address] Blood 02/23/2025 9:31 AM CDT 02/23/2025 9:46 AM CDT Bianca Hunter MD LAB BLOOD ORDERABLES Final Result [facility] [place] [address] * RAD ONC ARIA SESSION [...] ORD ERABLES Final Result Performing Organization Address City/[facility]/ZIP Co de Phone Number DION * RAD [...] ORD ERABLES Final Result Performing Organization Address [facility] Co de Phone Number DION * [...] Abdomen Pelvis W Contrast (12/13/2024 7:09 AM SEMI CONDUCTOR ASSEMBLER) Anatomical Region Laterality Modality Body N/A Computed Tomogra phy 12/13/2024 7:26 AM SEMI CONDUCTOR ASSEMBLER Impressions 12/13/2024 7:26 AM SEMI CONDUCTOR ASSEMBLER 1. Nondistended esophagus. No discrete esophageal lesion identified to correspond to known malignancy. 2. No evidence of metastatic disease in the chest, abdomen, and pelvis. Electronically signed by: Courtney Johnson M.D. Narrative 12/13/2024 7:26 AM SEMI CONDUCTOR ASSEMBLER EXAMINATION: Computed tomography of the chest, abdomen [...] Res ult * Colonoscopy (11/17/2024 9:34 AM SEMI CONDUCTOR ASSEMBLER) Anatomical Region Laterality Modality Other Narrative Procedure Note Lucio Rosas MD - 11/17/2024 9:34 AM CST [facility] GI ENDOSCOPY Patient Name: Brennen Olson Procedure Date: 11/17/2024 9:34 AM Date of : 1950 Admit Type: Outpatient Age: 74 Gender: Male Attending MD: Lucio Rosas M.D. Room: [facility] ENDOSCOPY ROOM 03 Note Status: [...] The scope was passed under direct vision.The [id number] colonoscope was introduced through theanus and advanced to the cecum, identified byappendiceal orifice and ileocecal valve. The scope was passed under direct vision. The [id number] colonoscope was introduced through the and advanced [...] Most Recently Relevant to Health Maintenance Insurance [facility] MEDICARE ADVANTAGE MEDICARE [employer] MEDICARE ADVANTAGE MEDICARE Advance Directives For more information, please contact: [phone] * Full Code (Latest Code Status on File) Date Activated Date Inactivated Comments 01/11/2025 10:34 AM 01/12/2025 5:08 AM * Full Code Date Activated Date Inactivated Comments 12/13/2024 8:18 AM 12/13/2024 5:22 PM Care Teams Control Systems Designer Relationship Specialty Start Date End Date Jas Alcala MD [address] [place] [address] PCP - General Internal Medicine 01/04/25 Lucio Rosas MD [facility] [address] [place] [address] Consulting Physician Gastroenterology 11/28/24 Bianca Hunter MD [address] [facility] [address] [place] [address] Medical Oncologist/Digital Director Medical Oncology 12/07/24 Hero Pinedo MD [address] [place] [address] Radiation Oncologist Radiation Oncology 12/28/24 Lon Tomas MD [address] [place] [address] Consulting Physician Urology 01/04/25 Jaycee Teresa MD [address] [place] [address] Consulting Physician Cardiology 01/09/25
--- OUTSIDE RECORDS SUMMARY | 2025-05-22 15:49 | XMS_ITS | Clinical Summary ---
Author Organization [facility] Address [address] [place] [address] Care Team Providers Care Instrument Repair Supervisor Name Role Phone Jas Alcala MD Primary Care Provider [phone] Allergies Active Allergy Reactions Criticality Noted Date [...] (06/17/2022): Added automatically from request for surgery [id number] Family History Medical History Relation Comments Cancer [...] to complete this topic Insurance Care Teams Instrument Repair Supervisor Relationship Specialty Start Date End Date Jas Alcala MD PCP - General INTERNAL MEDICINE 02/11/22
[2025-05-22 16:12] LABS: Hematocrit 33.9 % (42.0-52.0); Hemoglobin 10.3 g/dL (14.0-18.0); Mean Corpuscular HGB Conc 30.4 g/dl (32-36); Mean Corpuscular Hemoglobin 31.3 pg (26-34); Mean Corpuscular Volume 103.0 fl (80-100); Red Blood Count 3.29 M/mm3 (4.6-6.20); White Blood Count 4.1 K/mm3 (4.5-10.0)
[2025-05-22 16:13] LABS: Immature Granulocyte Percent A 0.5 % (0-0.5); Lymphocytes Absolute Auto 0.89 K/mm3 (0.9-3.2); Nucleated Red Blood Cells Absolute Auto 0.000 K/mm3 (0.0-0.012); Nucleated Red Blood Cells Perc 0.0 % (0.0-0.2); Platelet Count Result 226 k/mm3 (150-375)
[2025-05-22 16:31] LABS: INR 1.5; Prothrombin Time 18.1 Seconds (11.1-14.7)
[2025-05-22 16:32] LABS: Alanine Aminotransferase 19 U/L (6-50); Albumin Level 3.9 g/dL (3.5-5.1); Alkaline Phosphatase 58 U/L (38-126); Anion Gap 6 mmol/L (4-12); Aspartate Amino Transferase 33 U/L (17-59); Bilirubin,Total 0.3 mg/dL (0.2-1.3); Blood Urea Nitrogen 25 mg/dL (9-20); Calcium 9.4 mg/dL (8.4-10.2); Carbon Dioxide 24 mmol/L (22-30); Chloride 107 mmol/L (98-107); Estimated Glomerular Filt Rate 40; Glucose 111 mg/dL (65-110); Partial Thromboplastin Time 36.6 Seconds (22.3-36.8); Potassium 4.5 mmol/L (3.4-5.0); Sodium 137 mmol/L (137-145); Total Protein 7.1 g/dL (6.3-8.2)
== END 2025-05-22 15:42 | disposition home or self-care (01) ==
PROVIDERS: PCP Internal Medicine; Visit Provider Internal Medicine
DX: Z79.01 Long term (current) use of anticoagulants (principal)
CPT/HCPCS: 36415; 80053; 85025; 85610; 85730

== ENCOUNTER 2025-06-21 10:38 | Outpatient (CLI) | payer MEDICARE, SELFPAY ==
--- OUTSIDE RECORDS SUMMARY | 2005-09-16 19:00 | XMS_ITS | Continuity of Care Document ---
Author Organization [facility] Address [id number] [place] [phone] Phone Care Team Providers Care Oreman Name Role Phone Ran Sosa MD Unavailable Unavailable Advance Directives Directive Yes / No Effective Date File Name No Information Encounters Encounter Description Practice Location Reason(s) For Visit Diagnoses Date Provider Providers Copied on Encounter [facility], [address] [facility], [place], [place], [address], tel:[phone] [facility] CERVICAL DISC DISPLACMNT Sheila Tong. [address] , [place], [place], [address], [place]. tel:[phone] [facility], [address] [facility] access hospital, [place], [place], [address], tel:[phone] [facility] (Ip) FOLLOW-UP SURGERY NOS Conversion Doctor. [address] [place] [address], [id number], . [facility], [address], [place], [place], [address], tel:[phone] [facility] (Ip) LUMB/LUMBOSA C DISC DEGEN Conversion Doctor. [address] [place] [address], [facility], . Family History Family Member Type Diagnosis Age At Onset No Information Payers Payer name Insurance type Covered democrat ID Authoriza tion(s) No Information Social History Type Description Quantity Date Captured Comments Sex Male Smoking Status No Information Chief Complaint And Reason For Visit No Information Reason For Referral Reason For Referral No Information History Of Present Illness Encounter Date Complaint History Of Prese nt Illness No Information Functional Status Date Functional Assessmen t No Information Instructions Date Instruction Additional Infor mation No Information Assessments Type Assessment Date No Information Patient Care Teams Name Effective Dates (start - stop) Status Members No Information
--- OUTSIDE RECORDS SUMMARY | 2010-03-05 10:00 | XMS_ITS | Continuity of Care Document ---
Author Organization [facility] Address [address] [place] [address] Phone Care Team Providers Care Export Freight Specialist Name Role Phone Bijan Rabago Unavailable Unavailable Procedures Procedure Date Eye Exam, New Patient Refraction Advance Directives Directive Yes / No Effective Date File Name No Information Encounters Encounter Description Practice Location Reason(s) For Visit Diagnoses Date Provider Providers Copied on Encounter [facility], [address], [place], [place], [address], [place] tel:[phone] [facility] No Information 4-201 0 Isiahemily Thakkar. [address] [facility] [address], [place], [address], [place]. tel:[phone] Family History Family Member Type Diagnosis Age At Onset No Information Payers Payer name Insurance type Covered green party ID Authoriza tikika(s) [facility] Commercial CI [id number] Social History Type Description Quantity Date Captured [...]
--- OUTSIDE RECORDS SUMMARY | 2025-06-21 11:11 | XMS_ITS | Clinical Summary ---
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 CLOTH EXAMINER Gender Identity Not on file Sexual Orientation Not on file Last Filed Vital Signs Vital Sign Reading Time Taken Comments Blood Pressure 142/62 12/29/2019 2:51 PM MACHINE CLOTH EXAMINER Pulse 62 12/29/2019 2:51 PM MACHINE CLOTH EXAMINER Temperature 36.4 C (97.6 F) 12/29/2019 2:51 PM MACHINE CLOTH EXAMINER Respiratory Rate 18 12/29/2019 2:51 PM MACHINE CLOTH EXAMINER Oxygen Saturation 99% 12/29/2019 2:51 PM MACHINE CLOTH EXAMINER Inhaled Oxygen Concentration - - Weight 137 kg (302 lb) 12/29/2019 2:51 PM MACHINE CLOTH EXAMINER Height 182.9 cm (6') 12/29/2019 2:51 PM MACHINE CLOTH EXAMINER Body Mass Index 40.96 12/29/2019 2:51 PM MACHINE CLOTH EXAMINER Plan of Treatment Health Maintenance Due Date [...] age to complete this topic Care Teams Supervisory Geographer Relationship Specialty Start Date End Date Jas Alcala MD PCP - General Internal Medicine 11/09/19
--- OUTSIDE RECORDS SUMMARY | 2025-06-21 11:11 | XMS_ITS | Encounter Summary ---
Author Organization [facility] Address [address] [place] [address] Care Team Providers Care Bead Cutter Name Role Phone Lucio Rosas MD Unavailable Bianca Hunter MD Unavailable [phone] Hero Pinedo MD Unavailable [phone] Jas Alcala MD Primary Care Provider + [phone] Lon Tomas MD Unavailable [phone] Jaycee Teresa MD Unavailable [phone] Francisco Jones DO Unavailable [phone] Encounter Details Date Type Department Care Team (Latest Contact Info) Description 05/19/2025 Results Follow-Up 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 Not on file Not on file Not on file documented as of this encounter Plan of Treatment Not on file documented as of this encounter Visit Diagnoses Not on filedocumented in this encounter Care Teams Bead Cutter Relationship Specialty Start Date End Date Jas Alcala MD [address] [place] [address] PCP - General Internal Medicine 01/04/25 Lucio Rosas MD [address] [facility] [address] [place] [address] Consulting Physician Gastroenterology 11/28/24 Bianca Hunter MD [address] [facility] [address] [place] [address] Medical Oncologist/Hematologis t Medical Oncology 12/07/24 06/02/25 Hero Pinedo MD [address] [place] [address] Radiation Oncologist Radiation Oncology 12/28/24 Lon Tomas MD [address] [place] [address] Consulting Physician Urology 01/04/25 Jaycee Teresa MD [address] [place] [address] Consulting Physician Cardiology 01/09/25 Francisco Jones DO [address] [place] [address] Medical Oncologist/Hematologis t Hematology and Oncology 06/03/25 documented as of this encounter
--- OUTSIDE RECORDS SUMMARY | 2025-06-21 11:11 | XMS_ITS | Encounter Summary ---
Author Organization [facility] Address [address] [place] [address] Care Team Providers Care Appellate Court Clerk Name Role Phone Jas Alcala MD Primary Care Provider [phone] Lucio Rosas MD Unavailable Bianca Hunter MD Unavailable + [phone] Hero Pinedo MD Unavailable [phone] Jas Alcala MD Primary Care Provider [phone] Lon Tomas MD Unavailable [phone] Jaycee Teresa MD Unavailable [phone] Francisco Jones DO Unavailable [phone] Encounter Details Date Type Department Care Team (Late st Contact Info) Description 05/07/2022 Orders Only [facility] Cardiac Catheterization Lab [address] [place] [address] Bryon Potter MD [address] [place] [address] Social History Tobacco Use Types [...] on file Legal Sex Male 9:[address] [employer]ICE Gender Identity Not on file Sexual Orientation Not on file 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 Not on file Not on file Not on file documented as of this encounter Plan of Treatment Not on file documented as of this encounter Visit Diagnoses Not on filedocumented in this encounter Care Teams Appellate Court Clerk Relationship Specialty Start Date End Date Jas Alcala MD PCP - General Internal Medicine 02/26/18 01/03/25 Jas Alcala MD [address] [place] [address] PCP - General Internal Medicine 01/04/25 Lucio Rosas MD [address] [facility] [address] [place] [address] Consulting Physician Gastroenterology 11/28/24 Bianca Hunter MD [address] [facility] [address] [place] [address] Medical Oncologist/Hematologis t Medical Oncology 12/07/24 06/02/25 Hero Pinedo MD [address] [place] [address] Radiation Oncologist Radiation Oncology 12/28/24 Lon Tomas MD [address] [place] [address] Consulting Physician Urology 01/04/25 Jaycee Teresa MD [address] [place] [address] Consulting Physician Cardiology 01/09/25 Francisco Jones DO [address] [place] [place] [address] Medical Oncologist/Hematologis t Hematology and Oncology 06/03/25 documented as of this encounter
--- OUTSIDE RECORDS SUMMARY | 2025-06-21 11:11 | XMS_ITS | Encounter Summary ---
Author Organization [facility] Address [address] [place] [address] Phone Care Team Providers Care Director Internal Control Name Role Phone Lucio Rosas MD Unavailable Hero Pinedo MD Unavailable [phone] Jas Alcala MD Primary Care Provider [phone] Lon Tomas MD Unavailable [phone] Jaycee Teresa MD Unavailable [phone] Francisco Jones DO Unavailable [phone] Encounter Details Date Type Department Care Team (Late st Contact Info) Description 06/13/2025 Results Follow-Up [facility] H[facility] [place] [address] Mihaela Rod, TRANSPORT TECH [address] [place] [address] Reticulocyte Count, CBC with auto differential, Iron profile w/ IBC, Additional followed-up results: 2 Social History Tobacco Use Types Packs/Day Years Used Date Smoking Tobacco: Former Cigarettes 2019 Smokeless Tobacco: Never Alcohol Use Standard Drinks/Week Comments Yes 6 (1 standard drink = 0.6 oz pur e alcohol) AUDIT-C Answer Date Recorded Frequency of Alcohol Consumption Not on file 06/14/2025 Q2: How many drinks containi ng alcohol do you have on a typical day when you are drinking? Patient does not drink Frequency of Binge Drinking Not on file 06/02 Personal Safety Answer Date Recorded Have you ever been in or are you currently in a harmful physical or emotional relationship or is someone making you feel afraid or unsafe? 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 Thanks. documented in this encounter Plan of Treatment Not on file documented as of this encounter Visit Diagnoses Not on filedocumented in this encounter Care Teams Director Internal Control Relationship Specialty Start Date End Date Jas Alcala MD [address] [place] [id number] PCP - General Internal Medicine 01/04/25 Lucio Rosas MD [address] [address] Consulting Physician Gastroenterology 11/28/24 Hero Pinedo MD [address] [place] [address] Radiation Oncologist Radiation Oncology 12/28/24 Lon Tomas MD [address] [place] [address] Consulting Physician Urology 01/04/25 Jaycee Teresa MD [address] [place] [address] Consulting Physician Cardiology 01/09/25 Francisco Jones DO [address] [place] [address] Medical Oncologist/Hematologis t Hematology and Oncology 06/03/25 documented as of this encounter
--- OUTSIDE RECORDS SUMMARY | 2025-06-21 11:12 | XMS_ITS | Clinical Summary ---
Author Organization [facility] Address [address] [place] [address] Care Team Providers Care Unleavened Dough Mixer Name Role Phone Jas Alcala MD Primary Care Provider [phone] Allergies Active Allergy Reactions Criticality Noted Date [...] (06/17/2022): Added automatically from request for surgery [id number] Family History Medical History Relation Comments Cancer [...] to complete this topic Insurance Care Teams Unleavened Dough Mixer Relationship Specialty Start Date End Date Jas Alcala MD PCP - General INTERNAL MEDICINE 02/11/22
--- OUTSIDE RECORDS SUMMARY | 2025-06-21 11:12 | XMS_ITS | Clinical Summary ---
Author Organization [facility] Address [address] [place] [address] Care Team Providers Care Mechanical Lead Name Role Phone Lucio Rosas MD Unavailable Hero Pinedo MD Unavailable [phone] Jas Alclaa MD Primary Care Provider [phone] Lon Tomas MD Unavailable [phone] Jaycee Teresa MD Unavailable [phone] Francisco Jones DO Unavailable [phone] Allergies Active Allergy Reactions Criticality Noted Date Comments Amoxicillin Anaphylaxis High Celecoxib Anaphylaxis,Hives,Un known,Other (See comments) High 09/23/2010 Dapagliflozin Rash,Unknown High 01/19/2024 Farxiga Penicillins Shortness of breath,Hives,Unknown,Other (See comments),Rash High 09/23/2010 Pregabalin Rash,Unknown,Other (See comments) High Lyrica Medications calcium carbonate (TUMS) 500 mg (200 mg elemental) chewable tablet Take 1 tablet/chew tab (500 mg total) by mouth nightly Active carvediloL (COREG) 3.125 mg tabletIndicatio ns:Anemia, unspecified type Take 1 tablet (3.125 mg total) by mouth 2 (two) times a day with meals 4 Active gabapentin (NEURONTIN) 100 mg capsuleIndicati ons:Anemia, unspecified type Take 1 capsule (100 mg total) by mouth 3 (three) times a day 4 Active mexiletine (MEXITIL) 200 mg capsuleIndicati ons:Anemia, unspecified type Take 1 capsule (200 mg total) by mouth 3 (three) times a day 0 Active warfarin (COUMADIN) 2.5 mg tabletIndicatio ns:Anemia, unspecified type Last May 04 Active magnesium oxide (MAG-OX) 400 mg (241.3 mg elemental magnesium) tabletIndicatio ns:Anemia, unspecified type Take 1 tablet (400 mg total) by mouth 2 (two) times a day 2 Active atorvastatin (LIPITOR) 10 mg tabletIndicatio ns:Anemia, unspecified type Take 1 tablet (10 mg total) by mouth daily 4 Active cyanocobalamin (Vitamin B-12) 1,000 mcg tabletIndicatio ns:Anemia, unspecified type Take 1 tablet (1,000 mcg total) by mouth every morning 4 Active ferrous sulfate 325 mg (65 mg of elemental iron) tabletIndicatio ns:Anemia, unspecified type Take 1 tablet (325 mg [...] Active oxyCODONE (ROXICODONE) 5 mg immediate release tablet Take 1 tablet (5 mg total) by [...] 1200 mL 11 5 05/10/20 26 Active enoxaparin (LOVENOX) 120 mg/0.8 mL syringe INJECT 120MG UNDER THE SKIN IN THE MORNING 06/13/25-. 5 Active sucralfate (CARAFATE) suspension 1 gram/10 mL Take 10 mL (1 g total) by mouth 4 (four) times a day (with meals and nightly) Take 1 hour before meals and at bedtime 1200 mL 11 5 06/19/20 26 Active furosemide (LASIX) 20 mg tablet Take 1 tablet (20 mg total) by mouth daily 0 06/01/20 25 Discontinu ed(Patient Reported) solifenacin (VESIcare) 5 mg tabletIndicatio ns:Anemia, unspecified type Take 1 tablet (5 mg total) by mouth nightly 06/19/20 25 Discontinu ed(Patient Reported) sucralfate (CARAFATE) 1 gram tabletIndicatio ns:Gastric ulcer, unspecified chronicity, unspecified whether gastric ulcer hemorrhage or perforation present Take 1 tablet (1 g total) by mouth 4 (four) times a day Take 1 hour before meals and at bedtime 120 tablet 1 5 06/19/20 25 Discontinu ed(Patient Reported) Active Problems Patient Care Coordination No te [...] He also has a history of an OH and PE. 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 -Pathology discuss in detail and all questions were answered -Refer for EUS -Refer to Oncology and Cardiothoracic surgery Miller's esophagus with high grade dysplasia Assessment & Plan (11/25/2024 9:41 AM TRAILER DRIVER): EGD September 2024 with irregular Z-line and gastric ulcers. Pathology with Barretts esophagus, indefinite for dysplasia. Repeat EGD November 2024 with Barretts esophagus, pathology with high-grade dysplasia. -Continue pantoprazole 40 mg p.o. b.i.d. History of colon polyps 11/25/2024 Assessment & Plan (11/25/2024 9:42 AM TRAILER DRIVER): Colonoscopy November 2024 with multiple tubular adenomas. -Repeat colonoscopy November 2027 Gastric ulcer 09/23/2024 Anemia due to blood loss 09/23/2024 Rectal bleeding 08/22/2024 Radiation proctitis 08/22/2024 Assessment & Plan (11/25/2024 9:41 AM TRAILER DRIVER): Colonoscopy November 2024 with severe radiation proctitis status post APC. -Consider flex sig with APC, patient advised to call office if rectal bleeding gets worse Eosinophilia 02/22/2024 Iron deficiency anemia, unspecified 02/22/2024 Anemia 02/22/2024 VT (ventricular tachycardia) 05/09/2022 Overview (05/09/2022): Added automatically from request for surgery [id number] Lower urinary tract symptoms (LUTS) 05/24/2020 Malignant neoplasm of prostate 04/25/2013 Encounters Date Type Department Care Team Description 06/19/20 10:30 AM CDT Anesthesia Event [facility] Disease [address] [address] Jacobo Horne MD 06/19/20 10:00 AM CDT - 06/19/20 25 10:30 AM CDT Surgery [facility] [address] [address] Jerry Peguero MD ESOPHAGOGASTRODUODENOSCOPY WITH ABLATION 06/19/20 8:12 AM CDT - 06/19/20 11:51 AM CDT Hospital Encounter [facility] [address] [address] Jerry Peguero MD Discharge Disposition: Discharge to home or self care 06/19/20 25 7:45 AM CDT Lab [facility] [address] [place] [phone] Anemia, unspecified type; History of pulmonary embolism 06/14/20 25 11:15 AM CDT Infusion [facility] at [address] [place] [phone] Iron deficiency anemia, unspecified iron deficiency anemia type (Primary Dx); Anemia, unspecified type; History of pulmonary embolism 06/14/20 10:30 AM CDT Office Visit [facility] Hematology [address] [place] [address] [place] [phone] Mihaela Rod, AGNIESZKA Anemia, unspecified type (Primary Dx); History of pulmonary embolism 06/14/20 10:00 AM CDT Clinical Support [facility] [place] at [address] [address] Anemia, unspecified type; History of pulmonary embolism 06/13/20 Orders Only [facility] Hematology [address] [place] [phone] Gertrude Zhang Anemia, unspecified type (Primary Dx); History of pulmonary embolism 06/13/20 Results Follow-Up [facility] [address] [place] [phone] Mihaela Rod, AGNIESZKA Reticulocyte Count, CBC with auto differential, Iron profile w/ IBC, Additional followed-up results: 2 06/07/20 9:30 AM CDT Clinical Support [facility] at [address] [address] Anemia, unspecified type; History of pulmonary embolism 06/07/20 Orders Only [address] [phone] Cathy Lawrence RN 06/02/20 Telephone [facility] Gastroenterology [address] [place] [address] Medical Office Building 4, [address] [place] [address] Leslie Thomas RN GI Preprocedure 06/01/20 2:15 PM CDT Office Visit [facility] Oncology [address] [place] [phone] Francisco Jones DO Malignant neoplasm of lower third of esophagus (HCC) (Primary Dx) 06/01/20 25 Orders Only [facility] Hematology [address] [place] [address] 6 [place] [phone] Gertrude Zhang Anemia, unspecified type (Primary Dx); History of pulmonary embolism 05/25/20 [facility] Floor 5 [place] [phone] Lorie Little, AGNIESZKA 05/24/20 9:00 AM CDT Clinical Support [facility] at [address] [address] Anemia, unspecified type; History of pulmonary embolism; Malignant neoplasm of lower third of esophagus (HCC) 05/24/20 Telephone [facility] at [address] [place] [phone] Kaycee Chanel RN 05/19/20 Orders Only [facility] Surgery [address] [facility] [address] [place] [phone] Charlie Juarez MD Malignant neoplasm of lower third of esophagus (HCC) (Primary Dx) 05/19/20 Telephone [facility] Medicine Surgery [address] [facility] [address] [place] [phone] Reinaldo Little RMA 05/19/20 Results Follow-Up [facility] G[facility]ology at [address] [place] [phone] Lucio Rosas MD Surgical pathology 05/18/20 Telephone [facility] Medicine Surgery [facility] Floor [address] [place] [phone] Lorie Little, AGNIESZKA 05/15/20 Telephone [facility] Gastroenterology at [address] [place] [address] Lucio Rosas MD 05/15/20 Orders Only [facility] Gastroenterology at [address] [place] [address] Lucio Rosas MD Gastric ulcer, unspecified chronicity, unspecified whether gastric ulcer hemorrhage or perforation present (Primary Dx) 05/12/20 25 Telephone [facility] Gastroenterology at [address] [place] [phone] Lucio Rosas MD 05/11/20 12:00 PM CDT Infusion [facility] at [address] [place] [phone] Anemia, unspecified type (Primary Dx); History of pulmonary embolism 05/11/20 9:00 AM CDT Clinical Support [facility] at [address] [address] Anemia, unspecified type; History of pulmonary embolism 05/10/20 10:43 AM CDT Anesthesia Event [facility] GI Lab [address] [place] [address] Hal Kellogg MD 05/10/20 10:30 AM CDT - 05/10/20 11:00 AM CDT Surgery [facility] GI Lab [address] [place] [address] Lucio Rosas MD ESOPHAGOGASTRODUODENOSCOPY BIOPSY 05/10/20 9:15 AM CDT - 05/10/20 11:35 AM CDT Hospital Encounter [facility] GI Lab [address] [place] [address] Lucio Rosas MD Malignant neoplasm of lower third of esophagus (HCC) Discharge Disposition: Discharge to home or self care 05/08/20 25 [facility] [address] [place] [address] [place] [phone] Reinaldo Little RMA 05/08/20 25 Orders Only [facility] [address] [place] [address] [place] [phone] Charlie Juarez MD Malignant neoplasm of lower third of esophagus (HCC) (Primary Dx) 05/08/20 25 Telephone [facility] Oncology [address] [place] [address] [address] [place] [phone] Roseanna Roa 05/04/20 9:15 AM CDT Office Visit [facility] Surgery [address] [place] [address] [address] [place] [phone] Charlie Juarez MD Malignant neoplasm of lower third of esophagus (HCC) (Primary Dx) 04/27/20 10:45 AM CDT Office Visit [facility] Oncology [address] [place] [address] [address] [place] [address] Bianca Hunter MD Malignant neoplasm of lower third of esophagus (HCC) (Primary Dx) 04/26/20 12:00 PM CDT Infusion [facility] at [address] [phone] Anemia, unspecified type (Primary Dx); History of pulmonary embolism 04/26/20 9:00 AM CDT Clinical Support [address] [address] Anemia, unspecified type; History of pulmonary embolism; Malignant neoplasm of lower third of esophagus (HCC) 04/21/20 Orders Only [facility] Gastroenterology at [address] [place] [phone] Lucio Rosas MD Malignant neoplasm of lower third of esophagus (HCC) (Primary Dx) 04/12/20 2:30 PM CDT Clinical Support [facility] Medical Office Building 2 Radiation Oncology [address] [place] [phone] Malignant neoplasm of lower third of esophagus (HCC) (Primary Dx) 04/12/20 12:00 PM CDT Infusion [address] [address] Anemia, unspecified type (Primary Dx); History of pulmonary embolism 04/12/20 9:00 AM CDT Clinical Support [address] [address] Anemia, unspecified type; History of pulmonary embolism 04/10/20 10:00 AM CDT Office Visit [facility] Medical Office Building 2 Radiation Oncology [address] [place] [address] Hero Pinedo MD Malignant neoplasm of lower third of esophagus (HCC) (Primary Dx) 04/10/20 8:09 AM CDT - 04/10/20 11:59 PM CDT Hospital Encounter [facility] Medical Office Building 1 [facility] [place] [address] Malignant neoplasm of lower third of esophagus (HCC) Discharge Disposition: Discharge to home or self care 04/04/20 10:45 AM CDT Infusion [facility] at [address] [place] [address] Malignant neoplasm of lower third of esophagus (HCC) (Primary Dx); Anemia, unspecified type 04/04/20 9:45 AM CDT Clinical Support [address] [address] Anemia, unspecified type; History of pulmonary embolism 04/04/20 Orders Only [facility] [address] [place] [address] [address] [place] [address] Meme Dean RN Anemia, unspecified type (Primary Dx) 03/29/20 9:00 AM CDT Clinical Support [address] [address] Anemia, unspecified type; History of pulmonary embolism 03/29/20 Telephone [facility] [place] at [address] [place] [address] Francie Hassan, WILBER 03/29/20 Orders Only [facility] H[facility] [address] [place] [address] Gertrude Zhang Anemia, unspecified type (Primary Dx) from Last 3 Months Immunizations [...] TONSILLECTOMY Tonsillectomy - (Added by TW Conv) MO REPAIR FIRST ABDOMINAL [place] LL HERNIA Ventral Hernia Repair - 11/2013 (Added by TW Conv) w/poss mesh CATARACT EXTRACTION, BILATERAL COLONOSCOPY URETHRAL DILATION N/A UPPER GASTROINTESTINAL ENDOSCOPY PORT PLACEMENT CHEST >5 YEARS 01/11/2025 N/A Medical History Medical History Date Comments Chronic bronchitis with productive mucopurulent cough (HCC) Prostate cancer (HCC) Hepatitis A Neuropathy 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OH (myocardial infarction) (HCC) 2018 PE (pulmonary thromboembolism) 2019 GERD (gastroesophageal reflux disease) Chronic kidney disease stage 3 Neck pain Obesity Full dentures upper and lower Wears glasses Colon polyp Dysphagia Atrial fibrillation (HCC) HTN (hypertension) DVT (deep venous thrombosis) History of radiation therapy Tinnitus Neck mass [...] Cigarettes 1 - 2019 Smokeless Tobacco: Never Tobacco Cessation:Counseling Given: Not Answered Alcohol Use Standard Drinks/Week Comments Yes 6 (1 standard drink = 0.6 oz pur e alcohol) AUDIT-C Answer Date Recorded Q1: How often do you have a drink containing alcohol? Never 06/19/2025 Q2: How many drinks containi ng alcohol do you have on a typical day when you are drinking? Patient does not drink Q3: How often do you have si x or more drinks on one occasion? Never 06/19/2025 Personal Safety Answer Date Recorded Have you ever been in or are you currently in a harmful physical or emotional relationship or is someone making you feel afraid or unsafe? 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 Not on file Not on file Not on file Retired Not on file Not on file Not on file Obstetrics History Last Filed Vital Signs Vital Sign Reading Time Taken Comments Blood Pressure 117/67 06/19/2025 11:20 AM CDT Pulse 84 06/19/2025 11:20 AM CDT Temperature 36 C (96.8 F) 06/19/2025 11:00 AM CDT Respiratory Rate 21 06/19/2025 11:20 AM CDT Oxygen Saturation 100% 06/19/2025 11:20 AM CDT Inhaled Oxygen Concentration - - Weight 113.4 kg (250 lb) 06/19/2025 8:41 AM CDT Height 182.9 cm (6') 06/19/2025 8:41 AM CDT Body Mass Index 33.91 06/19/2025 8:41 AM CDT Plan of Treatment Health Maintenance [...] 09/17/2019, Additional history exists Fall Risk Assessment 06/19/2026 06/19/2025, 01/05/20 25 Colon Cancer Screening-Colonoscopy 11/17/2027 11/17/2024 Colon Cancer Screening-CT Colonography Discontinued 11/17/2024 Colon Cancer Screening-DNA Stool Discontinued 11/17/19 25 Colon Cancer Screening-FIT Discontinued 11/17/2024 Colon Cancer Screening-Sigmoidoscopy Discontinued 11/17/2024 Abdominal Aortic Aneurysm (A AA) Screen Completed 12/13/2024 Medical Devices Implanted Type Area Crew Foreman Device Identifier Shelf Expiration Date Model / Serial / Lot Screws And Rods Spine Lumbar [employer] X[employer]a Power Port 8fr [id number] - [id number] Implanted:Qty: 1 on 01/11/2025 by Linda Cardenas PA at [facility] [employer] 08/29/2029 [id number] / / [id number] Procedures Procedure Name Priority Date/Time Associated Diagnosis Comments ESOPHAGOGASTRODUODENOSCOPY WITH ABLATION 06/19/2025 10:30 AM CDT Malignant neoplasm of lower third of esophagus (HCC) Special Needs with cryotherapy PROTIME-INR Routine 06/19/2025 9:16 AM CDT EGD 06/19/2025 8:58 AM CDT TYPE AND SCREEN Routine 06/19/2025 7:52 AM CDT Anemia, unspecified type History of pulmonary embolism DIFFERENTIAL AUTO Routine 06/19/2025 7:51 AM CDT Anemia, unspecified type History of pulmonary embolism RETICULOCYTES Routine 06/19/2025 7:51 AM CDT Anemia, unspecified type History of pulmonary embolism IRON PROFILE W/ IBC Routine 06/19/2025 7:51 AM CDT Anemia, unspecified type History of pulmonary embolism FERRITIN Routine 06/19/2025 7:51 AM CDT Anemia, unspecified type History of pulmonary embolism CBC WITH AUTO DIFFERENTIAL Routine 06/19 7:51 AM CDT Anemia, unspecified type History of pulmonary embolism EGFR Routine 06/14/2025 10:05 AM CDT Anemia, unspecified type History of pulmonary embolism DIFFERENTIAL AUTO Routine 06/14/2025 10:05 AM CDT Anemia, unspecified type History of pulmonary embolism CBC WITH AUTO DIFFERENTIAL Routine 06/14 10:05 AM CDT Anemia, unspecified type History of pulmonary embolism COMPREHENSIVE METABOLIC PANEL Routine 10:05 AM CDT Anemia, unspecified type History of pulmonary embolism FERRITIN Routine 06/14/2025 10:05 AM CDT Anemia, unspecified type History of pulmonary embolism IRON PROFILE W/ IBC Routine 06/14/2025 10:05 AM CDT Anemia, unspecified type History of pulmonary embolism RETICULOCYTES Routine 06/14/2025 10:05 AM CDT Anemia, unspecified type History of pulmonary embolism DIFFERENTIAL AUTO Routine 06/07/2025 9:24 AM CDT Anemia, unspecified type History of pulmonary embolism FERRITIN Routine 06/07/2025 9:24 AM CDT Anemia, unspecified type History of pulmonary embolism IRON PROFILE W/ IBC Routine 06/07/2025 9:24 AM CDT Anemia, unspecified type History of pulmonary embolism CBC WITH AUTO DIFFERENTIAL Routine 06/07 9:24 AM CDT Anemia, unspecified type History of pulmonary embolism RETICULOCYTES Routine 06/07/2025 9:24 AM CDT Anemia, unspecified type History of pulmonary embolism EGFR Routine 05/24/2025 9:05 AM CDT Malignant neoplasm of lower third of esophagus (HCC) DIFFERENTIAL AUTO Routine 05/24/2025 9:05 AM CDT Malignant neoplasm of lower third of esophagus (HCC) FERRITIN Routine 05/24/2025 9:05 AM CDT Anemia, unspecified type History of pulmonary embolism IRON PROFILE W/ IBC Routine 05/24/2025 9:05 AM CDT Anemia, unspecified type History of pulmonary embolism RETICULOCYTES Routine 05/24/2025 9:05 AM CDT Anemia, unspecified type History of pulmonary embolism CBC WITH AUTO DIFFERENTIAL Routine 05/24 9:05 AM CDT Malignant neoplasm of lower third of esophagus (HCC) COMPREHENSIVE METABOLIC PANEL Routine 9:05 AM CDT Malignant neoplasm of lower third of esophagus (HCC) TRANSFUSE RED BLOOD CELLS Timed 2024 12:04 [...] Read Routine (OP Routine) 12/13/2024 7:09 AM TRAILER DRIVER Malignant neoplasm of lower third of esophagus (HCC) COLONOSCOPY 11/17/2024 9:34 AM TRAILER DRIVER from Last 3 Months or Most Recently Relevant to Health Maintenance Results * (ABNORMAL) Protime-INR (06/19/2025 9:16 AM CDT) PT 14.5(H) 10.2 - 13.5 sec INR 1.29(H) 0.90 - 1.20 [facility] Comment: Interpretive data Oral anticoagulant therapeutic ranges: Venous thromboembolism prophylaxis or treatment: 2.0-3.0 CARDIOLOGY Standard range: 2.0-3.0 High-intensity range: 2.5-3.5 Refer to indication-specific guidelines for appropriate target ranges for prosthetic heart valve replacement. Current interpretive data was last revised on 2019. Blood 06/19/2025 9:16 AM CDT 06/19/2025 9:21 AM CDT us Jacobo Horne MD LAB BLOOD ORDERABLES Final Re sult [facility] [place] [address] * EGD (06/19/2025 8:58 AM CDT) Anatomical Region Laterality Modality Other Narrative Procedure Note Jerry Peguero MD - 06/19/2025 8:58 AM CDT GI ENDOSCOPY [facility] Patient Name: Brennen Olson Procedure Date: 06/19/2025 8:58 AM Date of : 1950 Admit Type: Outpatient Age: 75 Gender: Male Attending MD: Jerry Peguero M.D., Room: [facility] ENDOSCOPY ROOM 2 Note Status: Finalized Procedure: Upper GI endoscopy Indications: For therapy of malignant esophageal adenocarcinoma- patient with residual tumor s/p chemo/XRT Referring MD: Francisco Jones D.O. Providers: Jerry Peguero M.D. Medicines: Monitored Anesthesia Care Complications: No [...] for adequacy to receive sedatives. - The risks and benefits of the procedure and the sedation options and risks were discussed with the patient. All questions were answered and informed consent was obtained. - Immediately prior to administration ofmedications, the patient was re-assessed for adequacy to receive sedatives. The benefits, risks, and alternatives to theprocedure and sedation were discussed and informed consentwas obtained. The scope was passed under direct vision. The GIF [id number] endoscope was introducedthrough the mouth, and advanced to the second part of duodenum. The upper GI endoscopy was accomplished without difficulty. The patient tolerated the procedure well. Findings: A few small mucosal nodules with a localized distribution were foundin the lower third of the esophagus. The decision was made to ablate the abnormal mucosa in the lower third of the esophagus with spray cryotherapy. Endoscopic visualization identified the ablation site, which was circumferential. A guidewire was placed, and the endoscopewas removed. Ventilation tubing was inserted over the guidewire, and the wire removed. The endoscope was reinserted and the ablation catheterwas inserted via the working channel. A total of one site was ablated. Liquid nitrogen cryogen was applied for 30 seconds after theappearance of a frosting effect across the target zone. The ablated area was allowed to thaw for 60 seconds. Ablation was repeated in a likewise fashion at each site for a total of three cycles. No complicationswere observed at the conclusion of therapy. The ventilation tubing was removed. The anatomical areas where the abnormal mucosa had beenablated were examined. A medium-sized hiatal hernia was present. The entire examined stomach was normal. The examined duodenum was normal. Impression: - Mucosal nodule found in the esophagus. Ablatedwith spray cryotherapy using liquid nitrogen. - Medium-sized hiatal hernia. - Normal stomach. - Normal examined duodenum. Recommendation: - Observe patient's clinical course. - Return to referring provider as previouslyscheduled. - Repeat upper endoscopy in 1 month for retreatmentin CAM. - Liquids only today, then soft foods tomorrow then advance diet as tolerated. - Carafate four times a day x 2 weeks. - OK to restart Coumadin tomm. Attending Participation: I personally performed the entire procedure. Jerry Peguero M.D. 06/19/2025 11:11:00 AM Number of Addenda: 0 Note Initiated On: 06/19/2025 8:58 AM Jerry Peguero MD ENDOSCOPY PROCEDURES Final Result * Type and screen (06/19/2025 7:52 AM CDT) Divina, indirect Negative ABO Rh A Positive [facility] Blood 06/19/2025 7:52 AM CDT 06/19/2025 8:44 AM CDT Narrative [facility] - 06/19/2025 10:03 AM CDT Has the patient had Daratumumab or Isatuximab in the past 6 months?->Unknown us Mihaela Rod NP LAB BLOOD BANK TEST DARIEL ELLINGTON Final Result [facility] Department [place] [address] * Differential, auto (06/19/2025 7:51 AM CDT) Neutrophil abs 2.78 1.50 - 6.50 K/cumm Imm gran abs 0.08 0.00 - 0.10 K/cumm [facility] Lymphocyte abs 0.92 0.80 - 3.30 K/cumm [facility] Monocyte abs 0.74 0.20 - 0.80 K/cumm [facility] Eosinophil abs 0.23 0.00 - 0.50 K/cumm [facility] Basophil abs 0.04 0.00 - 0.10 K/cumm [facility] Neutrophil pct 58.1 % [facility] Comment: Interpretive Data Percent cell count reference ranges are not reported, since discordance with absolute values may lead to misinterpretation of CBC data. Current Interpretive Data was last revised on 2018. Imm gran pct 1.7 % [facility] Comment: Interpretive Data Percent cell count reference ranges are not reported, since discordance with absolute values may lead to misinterpretation of CBC data. Current Interpretive Data was last revised on 2018. Lymphocyte pct 19.2 % [facility] Comment: Interpretive Data Percent cell count reference ranges are not reported, since discordance with absolute values may lead to misinterpretation of CBC data. Current Interpretive Data was last revised on 2018. Monocyte pct 15.4 % [facility] Comment: Interpretive Data Percent cell count reference ranges are not reported, since discordance with absolute values may lead to misinterpretation of CBC data. Current Interpretive Data was last revised on 2018. Eosinophil pct 4.8 % [facility] Comment: Interpretive Data Percent cell count reference ranges are not reported, since discordance with absolute values may lead to misinterpretation of CBC data. Current Interpretive Data was last revised on 2018. Basophil pct 0.8 % [facility] Comment: Interpretive Data Percent cell count reference ranges are not reported, since discordance with absolute values may lead to misinterpretation of CBC data. Current Interpretive Data was last revised on 2018. Blood 06/19/2025 7:51 AM CDT 06/19/2025 8:28 AM CDT us Mihaela Rod NP LAB BLOOD ORDERABLES Fin al Result [facility] [place] [address] * Iron profile w/ IBC (06/19/2025 7:51 AM CDT) [facility] Iron 115 50 - 150 mcg/dL TIBC 298 250 - 400 mcg/dL [facility] Transferrin saturation 39 20 - 50 % [facility] Blood 06/19/2025 7:51 AM CDT 06/19/2025 8:28 AM CDT Mihaela Rod [employer] LAB BLOOD ORDERABLES Fin al Result [facility] Department [place] [address] * (ABNORMAL) CBC with auto differential (06/19/2025 7:51 AM CDT) [facility] WBC 4.79 3.80 - 9.90 K/cumm Hgb 9.0(L) 13.0 - 17.5 g/dL [facility] Hct 29.6(L) 38.9 - 50.3 % [facility] Plt 254 150 - 400 K/cumm [facility] MPV 8.8(L) 9.1 - 12.3 fL [facility] RBC 2.98(L) 4.30 - 5.80 M/cumm [facility] MCV 99.3(H) 81.3 - 96.4 fL [facility] MCH 30.2 27.1 - 33.3 pg [facility] MCHC 30.4(L) 32.3 - 35.7 g/dL [facility] RDW CV 16.8(H) 11.1 - 14.9 % [facility] RDW SD 57.8(H) 35.7 - 48.1 fL [facility] NRBC abs 0.00 0.00 - 0.01 K/cumm [facility] Blood 06/19/2025 7:51 AM CDT 06/19/2025 8:28 AM CDT Mihaela Rod [employer] LAB BLOOD ORDERABLES Fin al Result Performing Organization Address [facility] [place] [address] * (ABNORMAL) Reticulocyte Count (06/19/2025 7:51 AM CDT) [facility] Retics, absolute 168(H) 20 - 87 K/cumm Retics 5.6(H) 0.4 - 2.9 % [facility] Reticulocyte Hgb 35.0 30.5 - 38.0 pg [facility] Blood 06/19/2025 7:51 AM CDT 06/19/2025 8:28 AM CDT Mihaela Rod [employer] LAB BLOOD ORDERABLES Fin al Result Performing Organization Address [facility] de Phone Number [facility] [place] [address] * (ABNORMAL) Ferritin (06/19/2025 7:51 AM CDT) [facility] Ferritin 423(H) 30 - 400 ng/mL Blood 06/19/2025 7:51 AM CDT 06/19/2025 8:28 AM CDT Mihaela Rod [employer] LAB BLOOD ORDERABLES Fin al Result Performing Organization Address [facility] [place] [address] * (ABNORMAL) eGFR (06/14/2025 10:05 AM CDT) [facility] eGFR 45(L) >=60 mL/min/1. 73 m2 Comment: [...] was last reviewed 2021. Testing performed by: [address] [address] Blood 06/14/2025 10:0 5 AM CDT 06/14/2025 10:06 AM CDT Nena Cano [employer] LAB BLOOD ORDERABLES Final Result [facility] Department [place] [address] * (ABNORMAL) Differential, auto (06/14/2025 10:05 AM CDT) Neutrophil abs 2.53 1.50 - 6.50 K/cumm Comment:Testing performed by : [address] [address] Imm gran abs 0.02 0.00 - 0.10 K/cumm [facility] Comment:Testing performed by : [address] [address] Lymphocyte abs 0.60(L) 0.80 - 3.30 K/cumm [facility] Comment:Testing performed by : [address] [address] Monocyte abs 0.61 0.20 - 0.80 K/cumm [facility] Comment:Testing performed by : [address] [address] Eosinophil abs 0.21 0.00 - 0.50 K/cumm [facility] Comment:Testing performed by : [address] [address] Basophil abs 0.03 0.00 - 0.10 K/cumm [facility] Comment:Testing performed by : [address] [address] Neutrophil pct 63.1 % [facility] Comment: Interpretive Data Percent cell count reference ranges are not reported, since discordance with absolute values may lead to misinterpretation of CBC data. Current Interpretive Data was last revised on 2018. Testing performed by: [address] [address] Imm gran pct 0.5 % [facility] Comment: Interpretive Data Percent cell count reference ranges are not reported, since discordance with absolute values may lead to misinterpretation of CBC data. Current Interpretive Data was last revised on 2018. Testing performed by: [address] [address] Lymphocyte pct 15.0 % [facility] Comment: Interpretive Data Percent cell count reference ranges are not reported, since discordance with absolute values may lead to misinterpretation of CBC data. Current Interpretive Data was last revised on 2018. Testing performed by: [address] [address] Monocyte pct 15.3 % [facility] Comment: Interpretive Data Percent cell count reference ranges are not reported, since discordance with absolute values may lead to misinterpretation of CBC data. Current Interpretive Data was last revised on 2018. Testing performed by: [address] [address] Eosinophil pct 5.3 % [facility] Comment: Interpretive Data Percent cell count reference ranges are not reported, since discordance with absolute values may lead to misinterpretation of CBC data. Current Interpretive Data was last revised on 2018. Testing performed by: [address] [address] Basophil pct 0.8 % [facility] Comment: Interpretive Data Percent cell count reference ranges are not reported, since discordance with absolute values may lead to misinterpretation of CBC data. Current Interpretive Data was last revised on 2018. Testing performed by: [address] [address] Blood 06/14/2025 10:0 5 AM CDT 06/14/2025 10:06 AM CDT Nena Cano [employer] LAB BLOOD ORDERABLES Final Result Performing Organization Address [facility] de Phone Number [facility] [address] [address] * Iron profile w/ IBC (06/14/2025 10:05 AM CDT) Iron 105 50 - 150 mcg/dL Comment:Testing performed by : [address] [address] TIBC 258 250 - 400 mcg/dL [facility] Comment:Testing performed by : [address], [address] Transferrin saturation 41 20 - 50 % [facility] Comment:Testing performed by : [address] [address] Blood 06/14/2025 10:0 5 AM CDT 06/14/2025 11:48 AM CDT Nena Cano [employer] LAB BLOOD ORDERABLES Final Result Performing Organization Address [facility] de Phone Number [address] [address] * (ABNORMAL) CBC with auto differential (06/14/2025 10:05 AM CDT) WBC 4.00 3.80 - 9.90 K/cumm Comment:Testing performed by : [address] [address] Hgb 8.4(L) 13.0 - 17.5 g/dL [facility] Comment:Testing performed by : [address] [address] Hct 27.3(L) 38.9 - 50.3 % [facility] Comment:Testing performed by : [address] [address] Plt 228 150 - 400 K/cumm [facility] Comment:Testing performed by : [address] [address] MPV 8.4(L) 9.1 - 12.3 fL [facility] Comment:Testing performed by : [address] [address] RBC 2.85(L) 4.30 - 5.80 M/cumm [facility] Comment:Testing performed by : [address] [address] MCV 95.8 81.3 - 96.4 fL [facility] Comment:Testing performed by : [address] [address] MCH 29.5 27.1 - 33.3 pg [facility] Comment:Testing performed by : [address] [address] MCHC 30.8(L) 32.3 - 35.7 g/dL [facility] Comment:Testing performed by : [address] [address] RDW CV 14.7 11.1 - 14.9 % [facility] Comment:Testing performed by : [address] [address] RDW SD 51.8(H) 35.7 - 48.1 fL [facility] Comment:Testing performed by : [address] [address] NRBC abs 0.00 0.00 - 0.01 K/cumm [facility] Comment:Testing performed by : [address] [address] ANC Prelim 2.53 1.50 - 6.50 K/cumm [facility] Comment: Interpretive Data The rapid ANC is a preliminary automated count and may vary from the final ANC (Neut Abs) reported in the WBC differential that follows. Current interpretive data was last revised 2025. Testing performed by: [address], [address] Blood 06/14/2025 10:0 5 AM CDT 06/14/2025 10:06 AM CDT Nena Cano [employer] LAB BLOOD ORDERABLES Final Result [facility] [place] [address] * (ABNORMAL) Reticulocyte Count (06/14/2025 10:05 AM CDT) Retics, absolute 95(H) 20 - 87 K/cumm Comment:Testing performed by : [address] [address] Retics 3.3(H) 0.4 - 2.9 % [facility] Comment:Testing performed by : [address] [address] Reticulocyte Hgb 25.3(L) 30.5 - 38.0 pg [facility] Comment:Testing performed by : [address] [address] Blood 06/14/2025 10:0 5 AM CDT 06/14/2025 10:06 AM CDT Nena Cano [employer] LAB BLOOD ORDERABLES Final Result Performing Organization Address [facility] Co de Phone Number [address] [address] * Ferritin (06/14/2025 10:05 AM CDT) Pathologist [facility] Ferritin 44 30 - 400 ng/mL Comment:Testing performed by : [address] [address] Blood 06/14/2025 10:0 5 AM CDT 06/14/2025 11:48 AM CDT Nena Cano [employer] LAB BLOOD ORDERABLES Final Result [facility] [address] [place] [address] * (ABNORMAL) Comprehensive metabolic panel (06/14/2025 10:05 AM CDT) Sodium 139 135 - 145 mmol/L Comment:Testing performed by : [address] [address] Potassium, pl 4.3 3.3 - 4.9 mmol/L [facility] Comment:Testing performed by : [address] [address] Chloride 107 97 - 110 mmol/L [facility] Comment:Testing performed by : [address], [place]., [address] CO2 22 22 - 32 mmol/L [facility] Comment:Testing performed by : [address], [place]., [address] Anion gap 10 2 - 15 mmol/L [facility] Comment:Testing performed by : [address] [address] BUN 25 6 - 25 mg/dL [facility] Comment:Testing performed by : [address], [place]., [address] Creatinine 1.60(H) 0.80 - 1.30 mg/dL [facility] Comment:Testing performed by : [address] [address] Glucose 88 70 - 199 mg/dL [facility] Comment: Interpretive Data Fasting glucose >/= [...] was last revised 2022. Testing performed by: [address], [place]., [address] Calcium 8.9 8.5 - 10.3 mg/dL [facility] Comment:Testing performed by : [address] [address] Bilirubin, total 0.2 0.1 - 1.2 mg/dL [facility] Comment:Testing performed by : [address] [address] Protein, pl 6.6 6.5 - 8.5 g/dL [facility] Comment:Testing performed by : [address] [address] Albumin 3.8 3.5 - 5.0 g/dL [facility] Comment:Testing performed by : [address] [address] Alk phos 65 40 - 130 Units/L [facility] Comment:Testing performed by : [address] [address] ALT 10 7 - 55 Units/L [facility] Comment:Testing performed by : [address] [address] AST 16 10 - 50 Units/L [facility] Comment:Testing performed by : [address] [address] Blood 06/14/2025 10:0 5 AM CDT 06/14/2025 10:06 AM CDT Nena Cano [employer] LAB BLOOD ORDERABLES Final Result Performing Organization Address City/State/[facility] Co de Phone Number [facility] [address] [facility] Department [place] [address] * (ABNORMAL) Differential, auto (06/07/2025 9:24 AM CDT) Neutrophil abs 2.55 1.50 - 6.50 K/cumm Comment:Testing performed by : [address] [address] Imm gran abs 0.03 0.00 - 0.10 K/cumm [facility] Comment:Testing performed by : [address] [address] Lymphocyte abs 0.72(L) 0.80 - 3.30 K/cumm [facility] Comment:Testing performed by : [address] [address] Monocyte abs 0.56 0.20 - 0.80 K/cumm [facility] Comment:Testing performed by : [address], [place]., [address] Eosinophil abs 0.23 0.00 - 0.50 K/cumm [facility] Comment:Testing performed by : [address], [place]., [address] Basophil abs 0.04 0.00 - 0.10 K/cumm [facility] Comment:Testing performed by : [address] [address] Neutrophil pct 61.7 % [facility] Comment: Interpretive Data Percent cell count reference ranges are not reported, since discordance with absolute values may lead to misinterpretation of CBC data. Current Interpretive Data was last revised on 2018. Testing performed by: [address] [address] Imm gran pct 0.7 % [facility] Comment: Interpretive Data Percent cell count reference ranges are not reported, since discordance with absolute values may lead to misinterpretation of CBC data. Current Interpretive Data was last revised on 2018. Testing performed by: [address] [address] Lymphocyte pct 17.4 % [facility] Comment: Interpretive Data Percent cell count reference ranges are not reported, since discordance with absolute values may lead to misinterpretation of CBC data. Current Interpretive Data was last revised on 2018. Testing performed by: [address] [address] Monocyte pct 13.6 % [facility] Comment: Interpretive Data Percent cell count reference ranges are not reported, since discordance with absolute values may lead to misinterpretation of CBC data. Current Interpretive Data was last revised on 2018. Testing performed by: [address] [address] Eosinophil pct 5.6 % [facility] Comment: Interpretive Data Percent cell count reference ranges are not reported, since discordance with absolute values may lead to misinterpretation of CBC data. Current Interpretive Data was last revised on 2018. Testing performed by: [address] [address] Basophil pct 1.0 % [facility] Comment: Interpretive Data Percent cell count reference ranges are not reported, since discordance with absolute values may lead to misinterpretation of CBC data. Current Interpretive Data was last revised on 2018. Testing performed by: [address] [address] Blood 06/07/2025 9:24 AM CDT 06/07/2025 9:32 AM CDT Nena Cano LAB BLOOD ORDERABLES Final Result Performing Organization Address [facility] de Phone Number [address] [place] [address] * (ABNORMAL) Iron profile w/ IBC (06/07/2025 9:24 AM CDT) Pathologist [facility] Iron 36(L) 50 - 150 mcg/dL Comment:Testing performed by : [address] [address] TIBC 260 250 - 400 mcg/dL [facility] Comment:Testing performed by : [address] [address] Transferrin saturation 14(L) 20 - 50 % [facility] Comment:Testing performed by : [address] [address] Blood 06/07/2025 9:24 AM CDT 06/07/2025 11:43 AM CDT Nena Cano [employer] LAB BLOOD ORDERABLES Final Result Performing Organization Address City/[facility] Co de Phone Number [address] [place] [address] * (ABNORMAL) CBC with auto differential (06/07/2025 9:24 AM CDT) WBC 4.13 3.80 - 9.90 K/cumm Comment:Testing performed by : [address] [address] Hgb 8.9(L) 13.0 - 17.5 g/dL [facility] Comment:Testing performed by : [address] [address] Hct 28.1(L) 38.9 - 50.3 % [facility] Comment:Testing performed by : [address] [address] Plt 232 150 - 400 K/cumm [facility] Comment:Testing performed by : [address] [address] MPV 8.3(L) 9.1 - 12.3 fL [facility] Comment:Testing performed by : [address] [address] RBC 2.92(L) 4.30 - 5.80 M/cumm [facility] Comment:Testing performed by : [address] [address] MCV 96.2 81.3 - 96.4 fL [facility] Comment:Testing performed by : [address] [address] MCH 30.5 27.1 - 33.3 pg [facility] Comment:Testing performed by : [address] [address] MCHC 31.7(L) 32.3 - 35.7 g/dL [facility] Comment:Testing performed by : [address] [address] RDW CV 15.0(H) 11.1 - 14.9 % [facility] Comment:Testing performed by : [address] [address] RDW SD 53.0(H) 35.7 - 48.1 fL [facility] Comment:Testing performed by : [address] [address] NRBC abs 0.00 0.00 - 0.01 K/cumm [facility] Comment:Testing performed by : [address] [address] ANC Prelim 2.55 1.50 - 6.50 K/cumm [facility] Comment: Interpretive Data The rapid ANC is a preliminary automated count and may vary from the final ANC (Neut Abs) reported in the WBC differential that follows. Current interpretive data was last revised 2025. Testing performed by: [address] [address] Blood 06/07/2025 9:24 AM CDT 06/07/2025 9:32 AM CDT Nena Cano [employer] LAB BLOOD ORDERABLES Final Result Performing Organization Address [facility] de Phone Number [address] [place] [address] * (ABNORMAL) Reticulocyte Count (06/07/2025 9:24 AM CDT) [facility] Retics, absolute 89(H) 20 - 87 K/cumm Comment:Testing performed by : [address] [address] Retics 3.1(H) 0.4 - 2.9 % [facility] Comment:Testing performed by : [address] [address] Reticulocyte Hgb 26.6(L) 30.5 - 38.0 pg [facility] Comment:Testing performed by : [address] [address] Blood 06/07/2025 9:24 AM CDT 06/07/2025 9:32 AM CDT Nena Cano [employer] LAB BLOOD ORDERABLES Final Result Performing Organization Address City/[facility] Co de Phone Number [facility] [address] [facility] [place] [address] * Ferritin (06/07/2025 9:24 AM CDT) [facility] Ferritin 41 30 - 400 ng/mL Comment:Testing performed by : [address] [address] Blood 06/07/2025 9:24 AM CDT 06/07/2025 11:43 AM CDT Nena Cano NP LAB BLOOD ORDERABLES Final Result Performing Organization Address [facility] Co de Phone Number [facility] [address] [place] [address] * (ABNORMAL) eGFR (05/24/2025 9:05 AM CDT) eGFR 42(L) >=60 mL/min/1. 73 m2 Comment: [...] was last reviewed 2021. Testing performed by: [facility], [address] [place] [address]., [address] Blood 05/24/2025 9:05 AM CDT 05/24/2025 9:10 AM CDT us Bianca Hunter MD LAB BLOOD ORDERABLES Final Result Performing Organization Address City/[facility]/ZIP Co de Phone Number [facility] [place] [address] * (ABNORMAL) Differential, auto (05/24/2025 9:05 AM CDT) Neutrophil abs 2.41 1.50 - 6.50 K/cumm Comment:Testing performed by : [address] [address] Imm gran abs 0.05 0.00 - 0.10 K/cumm [facility] Comment:Testing performed by : [address], [place]., [address] Lymphocyte abs 0.67(L) 0.80 - 3.30 K/cumm [facility] Comment:Testing performed by : [address] [address] Monocyte abs 0.70 0.20 - 0.80 K/cumm [facility] Comment:Testing performed by : [address] [address] Eosinophil abs 0.29 0.00 - 0.50 K/cumm [facility] Comment:Testing performed by : [address] [address] Basophil abs 0.04 0.00 - 0.10 K/cumm [facility] Comment:Testing performed by : [address] [address] Neutrophil pct 57.9 % [facility] Comment: Interpretive Data Percent cell count reference ranges are not reported, since discordance with absolute values may lead to misinterpretation of CBC data. Current Interpretive Data was last revised on 2018. Testing performed by: [address] [address] Imm gran pct 1.2 % [facility] Comment: Interpretive Data Percent cell count reference ranges are not reported, since discordance with absolute values may lead to misinterpretation of CBC data. Current Interpretive Data was last revised on 2018. Testing performed by: [address] [address] Lymphocyte pct 16.1 % [facility] Comment: Interpretive Data Percent cell count reference ranges are not reported, since discordance with absolute values may lead to misinterpretation of CBC data. Current Interpretive Data was last revised on 2018. Testing performed by: [address] [address] Monocyte pct 16.8 % [facility] Comment: Interpretive Data Percent cell count reference ranges are not reported, since discordance with absolute values may lead to misinterpretation of CBC data. Current Interpretive Data was last revised on 2018. Testing performed by: [address] [address] Eosinophil pct 7.0 % [facility] Comment: Interpretive Data Percent cell count reference ranges are not reported, since discordance with absolute values may lead to misinterpretation of CBC data. Current Interpretive Data was last revised on 2018. Testing performed by: [address] [address] Basophil pct 1.0 % [facility] Comment: Interpretive Data Percent cell count reference ranges are not reported, since discordance with absolute values may lead to misinterpretation of CBC data. Current Interpretive Data was last revised on 2018. Testing performed by: [address] [address] Blood 05/24/2025 9:05 AM CDT 05/24/2025 9:10 AM CDT Bianca Hunter MD LAB BLOOD ORDERABLES Final Result [facility] [address] [facility] Department [place] [address] * (ABNORMAL) Iron profile w/ IBC (05/24/2025 9:05 AM CDT) Iron 108 50 - 150 mcg/dL Comment:Testing performed by : [address] [address] TIBC 242(L) 250 - 400 mcg/dL [facility] Comment:Testing performed by : [address] [address] Transferrin saturation 45 20 - 50 % [facility] Comment:Testing performed by : [address] [address] Blood 05/24/2025 9:05 AM CDT 05/24/2025 9:39 AM CDT us Nena Oleary [employer] PAN PLACING SUPERVISOR LAB BLOOD ORDERABLES Final Result ISAAC SERNA [address] [facility] [place] [address] * (ABNORMAL) CBC with auto differential (05/24/2025 9:05 AM CDT) WBC 4.16 3.80 - 9.90 K/cumm Comment:Testing performed by : [address] [address] Hgb 9.2(L) 13.0 - 17.5 g/dL ISAAC SERNA Comment:Testing performed by : [address] [address] Hct 28.8(L) 38.9 - 50.3 % ISAAC Comment:Testing performed by : [address] [address] Plt 204 150 - 400 K/cumm ISAAC Comment:Testing performed by : [address] [address] MPV 8.3(L) 9.1 - 12.3 fL ISAAC Comment:Testing performed by : [address] [address] RBC 2.98(L) 4.30 - 5.80 M/cumm ISAAC SERNA Comment:Testing performed by : [address] [address] MCV 96.6(H) 81.3 - 96.4 fL ISAAC Comment:Testing performed by : [address] [address] MCH 30.9 27.1 - 33.3 pg ISAAC SERNA Comment:Testing performed by : [address] [address] MCHC 31.9(L) 32.3 - 35.7 g/dL ISAAC Comment:Testing performed by : [address] [address] RDW CV 16.1(H) 11.1 - 14.9 % ISAAC SERNA Comment:Testing performed by : [address] [address] RDW SD 57.4(H) 35.7 - 48.1 fL ISAAC SERNA Comment:Testing performed by : [address] [address] NRBC abs 0.00 0.00 - 0.01 K/cumm ISAAC SERNA Comment:Testing performed by : [address] [address] ANC Prelim 2.41 1.50 - 6.50 K/cumm ISAAC Comment: Interpretive Data The rapid ANC is a preliminary automated count and may vary from the final ANC (Neut Abs) reported in the WBC differential that follows. Current interpretive data was last revised 2025. Testing performed by: [address] [address] Blood 05/24/2025 9:05 AM CDT 05/24/2025 9:10 AM CDT Bianca Hunter MD LAB BLOOD ORDERABLES Final Result ISAAC [address] [place] [address] * Reticulocyte Count (05/24/2025 9:05 AM CDT) Retics, absolute 79 20 - 87 K/cumm Comment:Testing performed by : [address] [address] Retics 2.6 0.4 - 2.9 % ISAAC SERNA Comment:Testing performed by : [address] [address] Reticulocyte Hgb 30.9 30.5 - 38.0 pg ISAAC SERNA Comment:Testing performed by : [address] [address] Blood 05/24/2025 9:05 AM CDT 05/24/2025 9:10 AM CDT Nena Cano [employer] PAN [employer]ACING SUPERVISOR LAB BLOOD ORDERABLES Final Result Performing Organization Address City/[facility] Co de Phone Number ISAAC [address] [address] * Ferritin (05/24/2025 9:05 AM CDT) Ferritin 62 30 - 400 ng/mL Comment:Testing performed by : [address] [address] Blood 05/24/2025 9:05 AM CDT 05/24/2025 9:39 AM CDT Nena Cano STE[employer]OR PAN [employer]ACING SUPERVISOR LAB BLOOD ORDERABLES Final Result Performing Organization Address [facility] de Phone Number ISAAC [address] [address] * (ABNORMAL) Comprehensive metabolic panel (05/24/2025 9:05 AM CDT) Pathologist [facility] Sodium 139 135 - 145 mmol/L Comment:Testing performed by : [address] [address] Potassium, pl 4.4 3.3 - 4.9 mmol/L ISAAC Comment:Testing performed by : [address] [address] Chloride 106 97 - 110 mmol/L ISAAC Comment:Testing performed by : [address] [address] CO2 22 22 - 32 mmol/L ISAAC Comment:Testing performed by : [address] [address] Anion gap 11 2 - 15 mmol/L ISAAC Comment:Testing performed by : [address] [address] BUN 23 6 - 25 mg/dL ISAAC Comment:Testing performed by : [address] [address] Creatinine 1.70(H) 0.80 - 1.30 mg/dL ISAAC Comment:Testing performed by : [address] [address] Glucose 91 70 - 199 mg/dL ISAAC [...] was last revised 2022. Testing performed by: [address] [address] Calcium 9.0 8.5 - 10.3 mg/dL ISAAC Comment:Testing performed by : [address] [address] Bilirubin, total 0.3 0.1 - 1.2 mg/dL ISAAC Comment:Testing performed by : [address] [address] Protein, pl 6.6 6.5 - 8.5 g/dL ISAAC Comment:Testing performed by : [address] [address] Albumin 3.7 3.5 - 5.0 g/dL ISAAC Comment:Testing performed by : [address] [address] Alk phos 61 40 - 130 Units/L ISAAC Comment:Testing performed by : [address] [address] ALT 13 7 - 55 Units/L ISAAC Comment:Testing performed by : [address] [address] AST 17 10 - 50 Units/L ISAAC Comment:Testing performed by : [address] [address] Blood 05/24/2025 9:05 AM CDT 05/24/2025 9:10 AM CDT Bianca Hunter MD LAB BLOOD ORDERABLES Final Result Performing Organization Address City/[facility] Co de Phone Number [facility] [place] [address] * Transfuse RBC (05/11/2025 2:28 PM CDT) Blood Francisco Jones DO BLOOD TRANSFUSION ORDERABLES Final Result * Prepare RBC: 1 Units (05/11/2025 10:01 AM CDT) Units requested 1 Comment:Testing performed by : [address] [address] Units requested Ready ISAAC SERNA Comment:Testing performed by : [address] [address] Unit Number [id number] Product code [id number] [facility] Blood Expiration Date [id number] [facility] Product Blood Type (for scanning) [address] [facility] Product Blood Type APOS [facility] Dispense Status DISPENSED [facility] Blood 05/11/2025 10:0 1 AM CDT 05/11/2025 10:01 AM CDT Nena Cano NP BLOOD BANK PRODUCT ORDERABL ES Final Result Performing Organization Address City/[facility] Co de Phone Number ISAAC [address] [facility] [place] [address] * (ABNORMAL) Differential, auto (05/11/2025 9:00 AM CDT) Neutrophil abs 2.24 1.50 - 6.50 K/cumm Comment:Testing performed by : [address] [address] Imm gran abs 0.02 0.00 - 0.10 K/cumm ISAAC SERNA Comment:Testing performed by : [address] [address] Lymphocyte abs 0.58(L) 0.80 - 3.30 K/cumm [facility] Comment:Testing performed by : [address], [place]., [address] Monocyte abs 0.53 0.20 - 0.80 K/cumm [facility] Comment:Testing performed by : [address], [place]., [address] Eosinophil abs 0.27 0.00 - 0.50 K/cumm [facility] Comment:Testing performed by : [address], [place]., [address] Basophil abs 0.03 0.00 - 0.10 K/cumm [facility] Comment:Testing performed by : [address] [address] Neutrophil pct 61.1 % [facility] Comment: Interpretive Data Percent cell count reference ranges are not reported, since discordance with absolute values may lead to misinterpretation of CBC data. Current Interpretive Data was last revised on 2018. Testing performed by: [address] [address] Imm gran pct 0.5 % [facility] Comment: Interpretive Data Percent cell count reference ranges are not reported, since discordance with absolute values may lead to misinterpretation of CBC data. Current Interpretive Data was last revised on 2018. Testing performed by: [address] [address] Lymphocyte pct 15.8 % [facility] Comment: Interpretive Data Percent cell count reference ranges are not reported, since discordance with absolute values may lead to misinterpretation of CBC data. Current Interpretive Data was last revised on 2018. Testing performed by: [address] [address] Monocyte pct 14.4 % [facility] Comment: Interpretive Data Percent cell count reference ranges are not reported, since discordance with absolute values may lead to misinterpretation of CBC data. Current Interpretive Data was last revised on 2018. Testing performed by: [address] [address] Eosinophil pct 7.4 % [facility] Comment: Interpretive Data Percent cell count reference ranges are not reported, since discordance with absolute values may lead to misinterpretation of CBC data. Current Interpretive Data was last revised on 2018. Testing performed by: [address] [address] Basophil pct 0.8 % ISAAC SERNA Comment: Interpretive Data Percent cell count reference ranges are not reported, since discordance with absolute values may lead to misinterpretation of CBC data. Current Interpretive Data was last revised on 2018. Testing performed by: [address] [address] Blood 05/11/2025 9:00 AM CDT 05/11/2025 9:03 AM CDT Nena Cano LAB BLOOD ORDERABLES Final Result Performing Organization Address [facility] de Phone Number DAYANA[address] [employer] [place] [address] * (ABNORMAL) Iron profile w/ IBC (05/11/2025 9:00 AM CDT) Iron 73 50 - 150 mcg/dL Comment:Testing performed by : [address] [address] TIBC 241(L) 250 - 400 mcg/dL ISAAC SERNA Comment:Testing performed by : [address] [address] Transferrin saturation 30 20 - 50 % ISAAC Comment:Testing performed by : [address] [address] Blood 05/11/2025 9:00 AM CDT 05/11/2025 9:35 AM CDT Nena Cano LAB BLOOD ORDERABLES Final Result Performing Organization Address [facility] de Phone Number DAYANA[address] [place] [address] * (ABNORMAL) CBC with auto differential (05/11/2025 9:00 AM CDT) WBC 3.67(L) 3.80 - 9.90 K/cumm Comment:Testing performed by : [address] [address] Hgb 8.0(L) 13.0 - 17.5 g/dL ISAAC Comment:Testing performed by : [address] [address] Hct 26.0(L) 38.9 - 50.3 % ISAAC Comment:Testing performed by : [address] [address] Plt 184 150 - 400 K/cumm ISAAC Comment:Testing performed by : [address] [address] MPV 8.6(L) 9.1 - 12.3 fL ISAAC Comment:Testing performed by : [address], [address] RBC 2.53(L) 4.30 - 5.80 M/cumm ISAAC Comment:Testing performed by : [address], [address] MCV 102.8(H) 81.3 - 96.4 fL ISAAC Comment:Testing performed by : [address], [address] MCH 31.6 27.1 - 33.3 pg ISAAC Comment:Testing performed by : [address], [address] MCHC 30.8(L) 32.3 - 35.7 g/dL ISAAC Comment:Testing performed by : [address], [address] RDW CV 17.3(H) 11.1 - 14.9 % ISAAC Comment:Testing performed by : [address] [address] RDW SD 65.1(H) 35.7 - 48.1 fL ISAAC Comment:Testing performed by : [address], [address] NRBC abs 0.00 0.00 - 0.01 K/cumm ISAAC Comment:Testing performed by : [address] [address] ANC Prelim 2.24 1.50 - 6.50 K/cumm ISAAC SERNA Comment: Interpretive Data The rapid ANC is a preliminary automated count and may vary from the final ANC (Neut Abs) reported in the WBC differential that follows. Current interpretive data was last revised 2025. Testing performed by: [address] [address] Blood 05/11/2025 9:00 AM CDT 05/11/2025 9:03 AM CDT Nena Cano STE[employer]OR PAN PLACING SUPERVISOR LAB BLOOD ORDERABLES Final Result Performing Organization Address [facility] Co de Phone Number [address] [place] [address] * ABO/Rh (05/11/2025 9:00 AM CDT) Pathologist [facility] ABO/Rh A Positive Comment:Testing performed by : [address] [address] Blood 05/11/2025 9:00 AM CDT 05/11/2025 9:33 AM CDT Narrative ISAAC - 05/11/2025 9:59 AM CDT Has the patient had Daratumumab or Isatuximab in the past 6 months?->Unknown Nena Cano NP LAB BLOOD BANK TEST ORDERAB LES Final Result Performing Organization Address [facility] Co de Phone Number [address] [place] [address] * (ABNORMAL) Reticulocyte Count (05/11/2025 9:00 AM CDT) Pathologist [facility] Retics, absolute 105(H) 20 - 87 K/cumm Comment:Testing performed by : [address] [address] Retics 4.1(H) 0.4 - 2.9 % ISAAC Comment:Testing performed by : [facility], [address] [place] [address]., [address] Reticulocyte Hgb 34.4 30.5 - 38.0 pg ISAAC Comment:Testing performed by : [facility], [address] [place] [address]., [address] Blood 05/11/2025 9:00 AM CDT 05/11/2025 9:03 AM CDT Nena Cano STEEL [employer]OR PAN PLACING SUPERVISOR LAB BLOOD ORDERABLES Final Result Performing Organization Address City/[facility] Co de Phone Number [address] [place] [address] * Crossmatch (05/11/2025 9:00 AM CDT) Crossmatch Compatible [facility] Unit number for crossmatch [id number] [facility] Blood 05/11/2025 9:00 AM CDT 05/11/2025 9:33 AM CDT Jas Alcala MD LAB BLOOD BANK TEST ORDERABL ES Final Result Performing Organization Address [facility] Co de Phone Number [address] [place] [address] * Antibody screen (05/11/2025 9:00 AM CDT) Divina, indirect, Gel Interpretation Negative ABSC Comment:Testing performed by : [facility], [address] [place] [address]., [address] Blood 05/11/2025 9:00 AM CDT 05/11/2025 9:33 AM CDT Narrative [facility] - 05/11/2025 10:12 AM CDT Has the patient had Daratumumab or Isatuximab in the past 6 months?->Unknown Nena Cano NP LAB BLOOD BANK TEST ORDERAB LES Final Result [facility] [address] [place] [address] * Ferritin (05/11/2025 9:00 AM CDT) Ferritin 71 30 - 400 ng/mL Comment:Testing performed by : [facility], [address] [place] [address]., [address] Blood 05/11/2025 9:00 AM CDT 05/11/2025 9:35 AM CDT Nena Cano STE[employer]OR PAN PLACING SUPERVISOR LAB BLOOD ORDERABLES Final Result [facility] [facility] [place] [address] * Surgical pathology (05/10/2025 10:54 AM CDT) Tissue (Esophageal biopsy) 05/10/2025 10:54 AM CDT Tissue specimen (specimen) (Esophageal biopsy) 05/10/2025 10:56 AM CDT Narrative PATHOLOGY [facility] - 05/17/2025 3:59 PM CDT [facility] Department of Pathology [address] [place] [id number] Note to Patients: This report may contain [...] : 1950 (Age: 75) Gender: M Address: [address] [place] [address] [address] [place] [address] Hospital #: [id number] Service: Gastro Location: Patient Type: [facility] OUTPATIENT Taken: 05/10/2025 Received: 05/10/2025 Accessioned: 05/10/2025 [...] cm. Entirely submitted. Labeled B1. [facility]/05/10/2025 13:56 SHAD Gonzalez, PA [facility] Microscopic slide review and interpretation for this case was performed at [facility], Department of Surgical Pathology, [address] [facility], [place] [id number], [place] [address] CLIA # [id number] us Lucio Rosas MD LAB PATHOLOGY ORDERABLES Final R esult PATHOLOGY [facility] * EGD (05/10/2025 10:45 AM CDT) Anatomical Region Laterality Modality Other Narrative Procedure Note Lucio Rosas MD - 05/10/2025 10:45 AM CDT [facility] GI ENDOSCOPY Patient Name: Brennen Olson Procedure Date: 05/10/2025 10:45 AM Date of : 1950 Admit Type: Outpatient Age: 75 Gender: Male Attending MD: Lucio Rosas M.D. Room: [facility] ENDOSCOPY ROOM 03 Note Status: [...] On: 05/10/2025 10:45 AM Recognized by the [employer] for promoting quality in endoscopy Lucio Rosas MD ENDOSCOPY PROCEDURES Final Resul t * (ABNORMAL) POC Blood Gas and Chemistries, Venous - (05/10/2025 10:13 AM CDT) pH,kwame POC 7.35 7.32 - 7.43 pCO2, kwame POC 40 40 - [address] [facility] pO2,kwame POC [address] [facility] Comment: Interpretive Data No reference range established. Current interpretive data was last revised 2020. HCO3, kwame (Calc) POC 22 20 - 30 mmol/L [facility] Base excess, kwame POC -3 mmol/L [facility] Comment: Interpretive Data No reference range established. Current interpretive data was last revised 2020. Hemoglobin, kwame POC 9.2(L) 13.0 - 17.5 g/dL [facility] Hematocrit, kwame POC 27.0(L) 38.9 - 50.3 % [facility] Sodium, kwame POC 141 135 - 145 mmol/L [facility] Potassium, kwame POC 4.4 3.3 - 4.9 mmol/L [facility] Comment: Interpretive Data This method is not able to assess for hemolysis, which may falsely increase potassium concentrations. If further testing is needed to evaluate this result, consider in-laboratory plasma potassium. Current Interpretive Data was last revised on 2022. Glucose, kwame POC 86 70 - 199 mg/dL [facility] Ionized Calcium, kwame POC 5.10 4.50 - 5.10 mg/dL [facility] Blood 05/10/2025 10:1 3 AM CDT 05/10/2025 10:13 AM CDT Lucio Rosas MD LAB POCT ORDERABLES - DEVICE Fin al Result ISAAC [address] [place] [address] * Transfuse RBC (04/26/2025 2:25 PM CDT) Blood Bianca Hunter MD BLOOD TRANSFUSION OR DERABLES Final Result * Prepare RBC: 1 Units (04/26/2025 9:45 AM CDT) Units requested 1 Comment:Testing performed by : [facility], [address] [place] [address]., [address] Units requested Ready ISAAC Comment:Testing performed by : [facility], [address] [place] [address]., [address] Unit Number [id number] Product code [id number] [facility] Blood Expiration Date [id number] [facility] Product Blood Type (for scanning) [address] [facility] Product Blood Type APOS [facility] Dispense Status DISPENSED [facility] Blood 04/26/2025 9:45 AM CDT 04/26/2025 9:45 AM CDT Bianca Hunter MD BLOOD BANK PRODUCT O RDERABLES Final Result [facility] [address] [place] [address] * (ABNORMAL) eGFR (04/26/2025 9:01 [...] was last reviewed 2021. Testing performed by: [address] [address] Blood 04/26/2025 9:01 AM CDT 04/26/2025 9:02 AM CDT Bianca Hunter MD LAB BLOOD ORDERABLES Final Result [facility] [address] [place] [address] * (ABNORMAL) Differential, auto (04/26/2025 9:01 AM CDT) Neutrophil abs 2.29 1.50 - 6.50 K/cumm Comment:Testing performed by : [address] [address] Imm gran abs 0.02 0.00 - 0.10 K/cumm ISAAC Comment:Testing performed by : [address] [address] Lymphocyte abs 0.68(L) 0.80 - 3.30 K/cumm ISAAC Comment:Testing performed by : [address] [address] Monocyte abs 0.57 0.20 - 0.80 K/cumm ISAAC Comment:Testing performed by : [address] [address] Eosinophil abs 0.26 0.00 - 0.50 K/cumm ISAAC Comment:Testing performed by : [address] [address] Basophil abs 0.03 0.00 - 0.10 K/cumm ISAAC Comment:Testing performed by : [address] [address] Neutrophil pct 59.4 % ISAAC Comment: Interpretive Data Percent cell count reference ranges are not reported, since discordance with absolute values may lead to misinterpretation of CBC data. Current Interpretive Data was last revised on 2018. Testing performed by: [address] [address] Imm gran pct 0.5 % [facility] Comment: Interpretive Data Percent cell count reference ranges are not reported, since discordance with absolute values may lead to misinterpretation of CBC data. Current Interpretive Data was last revised on 2018. Testing performed by: [address] [address] Lymphocyte pct 17.7 % [facility] Comment: Interpretive Data Percent cell count reference ranges are not reported, since discordance with absolute values may lead to misinterpretation of CBC data. Current Interpretive Data was last revised on 2018. Testing performed by: [address] [address] Monocyte pct 14.8 % [facility] Comment: Interpretive Data Percent cell count reference ranges are not reported, since discordance with absolute values may lead to misinterpretation of CBC data. Current Interpretive Data was last revised on 2018. Testing performed by: [address] [address] Eosinophil pct 6.8 % [facility] Comment: Interpretive Data Percent cell count reference ranges are not reported, since discordance with absolute values may lead to misinterpretation of CBC data. Current Interpretive Data was last revised on 2018. Testing performed by: [address] [address] Basophil pct 0.8 % [facility] Comment: Interpretive Data Percent cell count reference ranges are not reported, since discordance with absolute values may lead to misinterpretation of CBC data. Current Interpretive Data was last revised on 2018. Testing performed by: [address] [address] Blood 04/26/2025 9:01 AM CDT 04/26/2025 9:02 AM CDT us Nena Cano NP LAB BLOOD ORDERABLES Final Result ISAAC SERNA [address] [place] [address] * (ABNORMAL) Iron profile w/ IBC (04/26/2025 9:01 AM CDT) [facility] Iron 75 50 - 150 mcg/dL Comment:Testing performed by : [address] [address] TIBC 231(L) 250 - 400 mcg/dL ISAAC SERNA Comment:Testing performed by : [address] [address] Transferrin saturation 32 20 - 50 % ISAAC SERNA Comment:Testing performed by : [address] [address] Blood 04/26/2025 9:01 AM CDT 04/26/2025 9:51 AM CDT Nena Cano NP LAB BLOOD ORDERABLES Final Result Performing Organization Address City/State/[facility] Co de Phone Number ISAAC SERNA [facility] Department [place] [address] * (ABNORMAL) CBC with auto differential (04/26/2025 9:01 AM CDT) [facility] WBC 3.85 3.80 - 9.90 K/cumm Comment:Testing performed by : [address] [address] Hgb 8.1(L) 13.0 - 17.5 g/dL ISAAC SERNA Comment:Testing performed by : [address] [address] Hct 26.2(L) 38.9 - 50.3 % ISAAC SERNA Comment:Testing performed by : [address] [address] Plt 199 150 - 400 K/cumm ISAAC SERNA Comment:Testing performed by : [address] [address] MPV 8.2(L) 9.1 - 12.3 fL ISAAC SERNA Comment:Testing performed by : [address] [address] RBC 2.64(L) 4.30 - 5.80 M/cumm ISAAC SERNA Comment:Testing performed by : [address] [address] MCV 99.2(H) 81.3 - 96.4 fL ISAAC Comment:Testing performed by : [address] [address] MCH 30.7 27.1 - 33.3 pg ISAAC SERNA Comment:Testing performed by : [address] [address] MCHC 30.9(L) 32.3 - 35.7 g/dL ISAAC SERNA Comment:Testing performed by : [address] [address] RDW CV 19.6(H) 11.1 - 14.9 % ISAAC Comment:Testing performed by : [address], [address] RDW SD 70.4(H) 35.7 - 48.1 fL ISAAC SERNA Comment:Testing performed by : [address] [address] NRBC abs 0.00 0.00 - 0.01 K/cumm ISAAC Comment:Testing performed by : [address] [address] ANC Prelim 2.29 1.50 - 6.50 K/cumm ISAAC Comment: Interpretive Data The rapid ANC is a preliminary automated count and may vary from the final ANC (Neut Abs) reported in the WBC differential that follows. Current interpretive data was last revised 2025. Testing performed by: [address] [address] Blood 04/26/2025 9:01 AM CDT 04/26/2025 9:02 AM CDT us Nena Cano NP LAB BLOOD ORDERABLES Final Result [facility] SERNA [address] Department of Laboratories [place], [place] [id number] * ABO/Rh (04/26/2025 9:01 AM CDT) [facility] ABO/Rh A Positive Comment:Testing performed by : [address] [address] Blood 04/26/2025 9:01 AM CDT 04/26/2025 9:44 AM CDT Narrative ISAAC - 04/26/2025 10:36 AM CDT Has the patient had Daratumumab or Isatuximab in the past 6 months?->Unknown Nena Cano [employer] SUPERVISOR LAB BLOOD BANK TEST ORDERAB LES Final Result Performing Organization Address [facility] Co de Phone Number [address] [place] [address] * (ABNORMAL) Reticulocyte Count (04/26/2025 9:01 AM CDT) Pathologist [facility] Retics, absolute 126(H) 20 - 87 K/cumm Comment:Testing performed by : [address] [address] Retics 4.8(H) 0.4 - 2.9 % ISAAC Comment:Testing performed by : [address] [address] Reticulocyte Hgb 32.6 30.5 - 38.0 pg ISAAC Comment:Testing performed by : [address] [address] Blood 04/26/2025 9:01 AM CDT 04/26/2025 9:02 AM CDT Nena Cano LAB BLOOD ORDERABLES Final Result Performing Organization Address [facility] de Phone Number [address] [place] [address] * Crossmatch (04/26/2025 9:01 AM CDT) Pathologist [facility] Crossmatch Compatible [facility] Unit number for crossmatch [id number] [facility] Blood 04/26/2025 9:01 AM CDT 04/26/2025 9:44 AM CDT Bianca Hunter MD LAB BLOOD BANK TEST ORDERABLES Final Result Performing Organization Address [facility] Co de Phone Number [address] [address] * Antibody screen (04/26/2025 9:01 AM CDT) Pathologist [facility] Divina, indirect, Gel Interpretation Negative ABSC Comment:Testing performed by : [address] [address] Blood 04/26/2025 9:01 AM CDT 04/26/2025 9:44 AM CDT Narrative [facility] - 04/26/2025 10:36 AM CDT Has the patient had Daratumumab or Isatuximab in the past 6 months?->Unknown Nena Cano NP LAB BLOOD BANK TEST ORDERAB LES Final Result Performing Organization Address [facility] Co de Phone Number [address] [address] * Ferritin (04/26/2025 9:01 AM CDT) [facility] Ferritin 47 30 - 400 ng/mL Comment:Testing performed by : [address] [address] Blood 04/26/2025 9:01 AM CDT 04/26/2025 9:51 AM CDT Nena Cano NP LAB BLOOD ORDERABLES Final Result Performing Organization Address [facility] Co de Phone Number [address] [address] * (ABNORMAL) Comprehensive metabolic panel (04/26/2025 9:01 AM CDT) [facility] Sodium 138 135 - 145 mmol/L Comment:Testing performed by : [address] [address] Potassium, pl 4.3 3.3 - 4.9 mmol/L [facility] Comment:Testing performed by : [address] [address] Chloride 107 97 - 110 mmol/L [facility] Comment:Testing performed by : [address], [place]., [address] CO2 22 22 - 32 mmol/L [facility] Comment:Testing performed by : [address] [address] Anion gap 9 2 - 15 mmol/L [facility] Comment:Testing performed by : [address], [place]., [address] BUN 17 6 - 25 mg/dL [facility] Comment:Testing performed by : [address] [address] Creatinine 1.60(H) 0.80 - 1.30 mg/dL [facility] Comment:Testing performed by : [address] [address] Glucose 92 70 - 199 mg/dL [facility] Comment: Interpretive Data Fasting glucose >/= [...] was last revised 2022. Testing performed by: [address] [address] Calcium 9.2 8.5 - 10.3 mg/dL [facility] Comment:Testing performed by : [address] [address] Bilirubin, total 0.3 0.1 - 1.2 mg/dL [facility] Comment:Testing performed by : [address] [address] Protein, pl 6.3(L) 6.5 - 8.5 g/dL [facility] Comment:Testing performed by : [address] [address] Albumin 3.6 3.5 - 5.0 g/dL [facility] Comment:Testing performed by : [address] [address] Alk phos 58 40 - 130 Units/L [facility] Comment:Testing performed by : [address] [address] ALT 10 7 - 55 Units/L [facility] Comment:Testing performed by : [address], [address] AST 14 10 - 50 Units/L [facility] Comment:Testing performed by : [address], [address] Blood 04/26/2025 9:01 AM CDT 04/26/2025 9:02 AM CDT Bianca Hunter MD LAB BLOOD ORDERABLES Final Result [facility] [address] Department of Laboratories [place], [place] [id number] * Transfuse RBC (04/12/2025 2:07 PM CDT) Blood Eli Toscano NP BLOOD TRANSFUSION OR DERABLES Final Result * Prepare RBC: 1 Units (04/12/2025 10:48 AM CDT) Units requested 1 Comment:Testing performed by : [address] [address] Units requested Ready [facility] Comment:Testing performed by : [address] [address] Unit Number [id number] Product code [id number] [facility] Blood Expiration Date [id number] [facility] Product Blood Type (for scanning) [address] [facility] [place] Product Blood Type APOS [facility]AC Dispense Status DISPENSED [facility] Blood 04/12/2025 10:4 8 AM CDT 04/12/2025 10:48 AM CDT Bianca Hunter MD BLOOD BANK PRODUCT O RDERABLES Final Result [facility] [address] Department [place] [address] * Differential, auto (04/12/2025 9:09 AM CDT) Neutrophil abs 2.16 1.50 - 6.50 K/cumm Comment:Testing performed by : [address] [address] Imm gran abs 0.02 0.00 - 0.10 K/cumm [facility] Comment:Testing performed by : [address] [address] Lymphocyte abs 0.81 0.80 - 3.30 K/cumm [facility] Comment:Testing performed by : [address] [address] Monocyte abs 0.51 0.20 - 0.80 K/cumm [facility] Comment:Testing performed by : [address] [address] Eosinophil abs 0.19 0.00 - 0.50 K/cumm [facility] Comment:Testing performed by : [address] [address] Basophil abs 0.04 0.00 - 0.10 K/cumm [facility] Comment:Testing performed by : [address] [address] Neutrophil pct 57.9 % [facility] Comment: Interpretive Data Percent cell count reference ranges are not reported, since discordance with absolute values may lead to misinterpretation of CBC data. Current Interpretive Data was last revised on 2018. Testing performed by: [address] [address] Imm gran pct 0.5 % [facility] Comment: Interpretive Data Percent cell count reference ranges are not reported, since discordance with absolute values may lead to misinterpretation of CBC data. Current Interpretive Data was last revised on 2018. Testing performed by: [address] [address] Lymphocyte pct 21.7 % [facility] Comment: Interpretive Data Percent cell count reference ranges are not reported, since discordance with absolute values may lead to misinterpretation of CBC data. Current Interpretive Data was last revised on 2018. Testing performed by: [address] [address] Monocyte pct 13.7 % [facility] Comment: Interpretive Data Percent cell count reference ranges are not reported, since discordance with absolute values may lead to misinterpretation of CBC data. Current Interpretive Data was last revised on 2018. Testing performed by: [address] [address] Eosinophil pct 5.1 % [facility] Comment: Interpretive Data Percent cell count reference ranges are not reported, since discordance with absolute values may lead to misinterpretation of CBC data. Current Interpretive Data was last revised on 2018. Testing performed by: [address] [address] Basophil pct 1.1 % [facility] Comment: Interpretive Data Percent cell count reference ranges are not reported, since discordance with absolute values may lead to misinterpretation of CBC data. Current Interpretive Data was last revised on 2018. Testing performed by: [address] [address] Blood 04/12/2025 9:09 AM CDT 04/12/2025 9:10 AM CDT us Nena Cano [employer] LAB BLOOD ORDERABLES Final Result [facility] [address] Department [place] [address] * (ABNORMAL) Iron profile w/ IBC (04/12/2025 9:09 AM CDT) Iron 104 50 - 150 mcg/dL Comment:Testing performed by : [address] [address] TIBC 226(L) 250 - 400 mcg/dL [facility] Comment:Testing performed by : [address] [address] Transferrin saturation 46 20 - 50 % [facility] Comment:Testing performed by : [address] [address] Blood 04/12/2025 9:09 AM CDT 04/12/2025 9:45 AM CDT Nena Cano [employer] LAB BLOOD ORDERABLES Final Result [facility] [address] Department [place] [address] * (ABNORMAL) CBC with auto differential (04/12/2025 9:09 AM CDT) WBC 3.73(L) 3.80 - 9.90 K/cumm Comment:Testing performed by : [address] [address] Hgb 7.9(L) 13.0 - 17.5 g/dL [facility] Comment:Testing performed by : [address] [address] Hct 25.0(L) 38.9 - 50.3 % [facility] SERNA Comment:Testing performed by : [address] [address] Plt 215 150 - 400 K/cumm [facility] Comment:Testing performed by : [address] [address] MPV 8.5(L) 9.1 - 12.3 fL [facility] Comment:Testing performed by : [address] [address] RBC 2.63(L) 4.30 - 5.80 M/cumm [facility] SERNA Comment:Testing performed by : [address] [address] MCV 95.1 81.3 - 96.4 fL [facility]NA Comment:Testing performed by : [address] [place] [address] MCH 30.0 27.1 - 33.3 pg [facility] Comment:Testing performed by : [address] [address] MCHC 31.6(L) 32.3 - 35.7 g/dL [facility]NA Comment:Testing performed by : [address] [address] RDW CV 20.8(H) 11.1 - 14.9 % [facility] Comment:Testing performed by : [address] [address] RDW SD 71.6(H) 35.7 - 48.1 fL [facility] Comment:Testing performed by : [address] [address] NRBC abs 0.00 0.00 - 0.01 K/cumm [facility] Comment:Testing performed by : [address], [address] ANC Prelim 2.16 1.50 - 6.50 K/cumm [facility] Comment: Interpretive Data The rapid ANC is a preliminary automated count and may vary from the final ANC (Neut Abs) reported in the WBC differential that follows. Current interpretive data was last revised 2025. Testing performed by: [address] [address] Blood 04/12/2025 9:09 AM CDT 04/12/2025 9:10 AM CDT Nena Cano [employer] LAB BLOOD ORDERABLES Final Result [facility] [address] Department [place] [address] * ABO/Rh (04/12/2025 9:09 AM CDT) ABO/Rh A Positive Comment:Testing performed by : [address] [address] Blood 04/12/2025 9:09 AM CDT 04/12/2025 9:45 AM CDT N[facility]ative [facility] - 04/12/20[facility] 10:25 AM CDT Has the patient had Daratumumab or Isatuximab in the past 6 months?->Unknown Nena Cano [employer] LAB BLOOD BANK TEST ORDERAB LES Final Result Performing Organization Address [facility] Co de Phone Number [phone] [facility] [place] [address] * (ABNORMAL) Reticulocyte Count (04/12/2025 9:09 AM CDT) Retics, absolute 108(H) 20 - 87 K/cumm Comment:Testing performed by : [address] [address] Retics 4.1(H) 0.4 - 2.9 % [facility] Comment:Testing performed by : [address] [address] Reticulocyte Hgb 34.1 30.5 - 38.0 pg IS[facility]AC Comment:Testing performed by : [facility], [address] [place] [address]., [address] Blood 04/12/2025 9:09 AM CDT 04/12/2025 9:10 AM CDT Nena Cano [employer] LAB BLOOD ORDERABLES Final Result Performing Organization Address [facility] de Phone Number [address] [address] [phone] [facility] [place] [address] * Crossmatch (04/12/2025 9:09 AM CDT) Crossmatch Compatible [facility] Unit number for crossmatch [id number] [facility] [place] Blood 04/12/2025 9:09 AM CDT 04/12/2025 9:48 AM CDT Nena Cano [employer] LAB BLOOD BANK TEST ORDERAB LES Final Result Performing Organization Address City/[facility]/ZIP Co de Phone Number [address] [address] * Antibody screen (04/12/2025 9:09 AM CDT) Pathologist [facility] Divina, indirect, Gel Interpretation Negative ABSC Comment:Testing performed by : [address] [address] Blood 04/12/2025 9:09 AM CDT 04/12/2025 9:45 AM CDT Narrative [facility] - 04/12/2025 10:43 AM CDT Has the patient had Daratumumab or Isatuximab in the past 6 months?->Unknown Nena Cano [employer] LAB BLOOD BANK TEST ORDERAB LES Final Result Performing Organization Address [facility] Phone Number [address] [address] * Ferritin (04/12/2025 9:09 AM CDT) Pathologist [facility] Ferritin 58 30 - 400 ng/mL Comment:Testing performed by : [facility], [address] [place] [address]., [address] Blood 04/12/2025 9:09 AM CDT 04/12/2025 9:45 AM CDT Nena Cano [employer] LAB BLOOD ORDERABLES Final Result Performing Organization Address [facility] de Phone Number [address] [address] * PET/CT FDG Skull to Thigh (04/10/2025 [...] liver and <= 2x SUV max liver Gaudmczf-mr-tfxszt: >2x SUV max liver and <= 3x [...] Naomi Pimentel M.D. FT: FT Report ID: [id number] Reading Location: [id number] Procedure Note Naomi Martini MD - 04/10/2025 [...] liver and <= 2x SUV max liver Okslblhi-ic-[id number]: >2x SUV max liver and <= 3x [...] Naomi Pimentel M.D. FT: FT Report ID: [id number] Reading Location: [id number] Bianca Hunter MD IMG PET PROCEDURES F inal Result * POCT glucose (04/10/2025 8:22 AM CDT) Glucose, POC 88 70 - 199 mg/dL Comment:Testing performed by : [address] [address] Blood 04/10/2025 8:22 AM CDT 04/10/2025 8:22 AM CDT Bianca Hunter MD LAB POCT ORDERABLES - DEVICE Final Result [facility] [address] Department [place] [address] * Differential, auto (04/04/2025 10:10 AM CDT) Pathologist [facility] Neutrophil abs 2.03 1.50 - 6.50 K/cumm Comment:Testing performed by : [address] [address] Imm gran abs 0.02 0.00 - 0.10 K/cumm [facility] Comment:Testing performed by : [address] [address] Lymphocyte abs 0.96 0.80 - 3.30 K/cumm [facility] Comment:Testing performed by : [address] [address] Monocyte abs 0.51 0.20 - 0.80 K/cumm [facility] Comment:Testing performed by : [address] [address] Eosinophil abs 0.15 0.00 - 0.50 K/cumm [facility] Comment:Testing performed by : [address] [address] Basophil abs 0.03 0.00 - 0.10 K/cumm [facility] Comment:Testing performed by : [address] [address] Neutrophil pct 54.9 % [facility] Comment: Interpretive Data Percent cell count reference ranges are not reported, since discordance with absolute values may lead to misinterpretation of CBC data. Current Interpretive Data was last revised on 2018. Testing performed by: [address] [address] Imm gran pct 0.5 % [facility] Comment: Interpretive Data Percent cell count reference ranges are not reported, since discordance with absolute values may lead to misinterpretation of CBC data. Current Interpretive Data was last revised on 2018. Testing performed by: [address] [address] Lymphocyte pct 25.9 % [facility] Comment: Interpretive Data Percent cell count reference ranges are not reported, since discordance with absolute values may lead to misinterpretation of CBC data. Current Interpretive Data was last revised on 2018. Testing performed by: [address] [address] Monocyte pct 13.8 % [facility] Comment: Interpretive Data Percent cell count reference ranges are not reported, since discordance with absolute values may lead to misinterpretation of CBC data. Current Interpretive Data was last revised on 2018. Testing performed by: [address] [address] Eosinophil pct 4.1 % [facility] Comment: Interpretive Data Percent cell count reference ranges are not reported, since discordance with absolute values may lead to misinterpretation of CBC data. Current Interpretive Data was last revised on 2018. Testing performed by: [address] [address] Basophil pct 0.8 % [facility] Comment: Interpretive Data Percent cell count reference ranges are not reported, since discordance with absolute values may lead to misinterpretation of CBC data. Current Interpretive Data was last revised on 2018. Testing performed by: [address] [address] Blood 04/04/2025 10:1 0 AM CDT 04/04/2025 10:10 AM CDT Nena Cano [employer] LAB BLOOD ORDERABLES Final Result Performing Organization Address [facility] de Phone Number [place] [phone] [facility] [place] [address] * (ABNORMAL) Iron profile w/ IBC (04/04/2025 10:10 AM CDT) [facility] Iron 138 50 - 150 mcg/dL Comment:Testing performed by : [address] [address] TIBC 228(L) 250 - 400 mcg/dL [facility] Comment:Testing performed by : [address] [address] Transferrin saturation 61(H) 20 - 50 % [facility] SERNA Comment:Testing performed by : [address] [address] Blood 04/04/2025 10:1 0 AM CDT 04/04/2025 11:44 AM CDT Nena Cano [employer] LAB BLOOD ORDERABLES Final Result Performing Organization Address [facility] Co de Phone Number [place] [phone] [facility] Department [place] [address] * (ABNORMAL) CBC with auto differential (04/04/2025 10:10 AM CDT) [facility] WBC 3.70(L) 3.80 - 9.90 K/cumm Comment:Testing performed by : [address] [address] Hgb 8.2(L) 13.0 - 17.5 g/dL [facility] SERNA Comment:Testing performed by : [address] [address] Hct 26.2(L) 38.9 - 50.3 % [facility] SERNA Comment:Testing performed by : [address] [address] Plt 205 150 - 400 K/cumm [facility] SERNA Comment:Testing performed by : [address] [address] MPV 9.1 9.1 - 12.3 fL [facility] Comment:Testing performed by : [address] [address] RBC 2.79(L) 4.30 - 5.80 M/cumm [facility] Comment:Testing performed by : [address] [address] MCV 93.9 81.3 - 96.4 fL [facility] Comment:Testing performed by : [address] [address] MCH 29.4 27.1 - 33.3 pg [facility] Comment:Testing performed by : [address] [address] MCHC 31.3(L) 32.3 - 35.7 g/dL [facility] Comment:Testing performed by : [address] [address] RDW CV 19.9(H) 11.1 - 14.9 % [facility] Comment:Testing performed by : [address] [address] RDW SD 68.3(H) 35.7 - 48.1 fL [facility] Comment:Testing performed by : [address] [address] NRBC abs 0.00 0.00 - 0.01 K/cumm [facility] Comment:Testing performed by : [address] [address] ANC Prelim 2.03 1.50 - 6.50 K/cumm [facility] Comment: Interpretive Data The rapid ANC is a preliminary automated count and may vary from the final ANC (Neut Abs) reported in the WBC differential that follows. Current interpretive data was last revised 2025. Testing performed by: [address] [address] Blood 04/04/2025 10:1 0 AM CDT 04/04/2025 10:10 AM CDT Nena Cano [employer] LAB BLOOD ORDERABLES Final Result [facility] [address] [place] [address] * Reticulocyte Count (04/04/2025 10:10 AM CDT) Pathologist [facility] Retics, absolute 78 20 - 87 K/cumm Comment:Testing performed by : [address] [address] Retics 2.8 0.4 - 2.9 % [facility] Comment:Testing performed by : [address] [address] Reticulocyte Hgb 30.5 30.5 - 38.0 pg [facility] Comment:Testing performed by : [address] [address] Blood 04/04/2025 10:1 0 AM CDT 04/04/2025 10:10 AM CDT Nena Cano [employer] LAB BLOOD ORDERABLES Final Result Performing Organization Address [facility] Co de Phone Number [address] [place] [address] * Ferritin (04/04/2025 10:10 AM CDT) [facility] Ferritin 65 30 - 400 ng/mL Comment:Testing performed by : [address] [address] Blood 04/04/2025 10:1 0 AM CDT 04/04/2025 11:44 AM CDT Nena Cano [employer] LAB BLOOD ORDERABLES Final Result Performing Organization Address City/[facility] Co de Phone Number [address] [place] [address] * Differential, auto (03/29/2025 9:10 AM CDT) Pathologist [facility] Neutrophil abs 1.83 1.50 - 6.50 K/cumm Comment:Testing performed by : [address] [address] Imm gran abs 0.01 0.00 - 0.10 K/cumm [facility] Comment:Testing performed by : [address] [address] Lymphocyte abs 0.94 0.80 - 3.30 K/cumm [facility] Comment:Testing performed by : [address] [address] Monocyte abs 0.60 0.20 - 0.80 K/cumm [facility] Comment:Testing performed by : [address], [place]., [address] Eosinophil abs 0.16 0.00 - 0.50 K/cumm [facility] Comment:Testing performed by : [address] [address] Basophil abs 0.04 0.00 - 0.10 K/cumm [facility] Comment:Testing performed by : [address] [address] Neutrophil pct 51.0 % [facility] Comment: Interpretive Data Percent cell count reference ranges are not reported, since discordance with absolute values may lead to misinterpretation of CBC data. Current Interpretive Data was last revised on 2018. Testing performed by: [address] [address] Imm gran pct 0.3 % [facility] Comment: Interpretive Data Percent cell count reference ranges are not reported, since discordance with absolute values may lead to misinterpretation of CBC data. Current Interpretive Data was last revised on 2018. Testing performed by: [address] [address] Lymphocyte pct 26.3 % [facility] Comment: Interpretive Data Percent cell count reference ranges are not reported, since discordance with absolute values may lead to misinterpretation of CBC data. Current Interpretive Data was last revised on 2018. Testing performed by: [address] [address] Monocyte pct 16.8 % [facility] Comment: Interpretive Data Percent cell count reference ranges are not reported, since discordance with absolute values may lead to misinterpretation of CBC data. Current Interpretive Data was last revised on 2018. Testing performed by: [address] [address] Eosinophil pct 4.5 % [facility] Comment: Interpretive Data Percent cell count reference ranges are not reported, since discordance with absolute values may lead to misinterpretation of CBC data. Current Interpretive Data was last revised on 2018. Testing performed by: [address] [address] Basophil pct 1.1 % [facility] Comment: Interpretive Data Percent cell count reference ranges are not reported, since discordance with absolute values may lead to misinterpretation of CBC data. Current Interpretive Data was last revised on 2018. Testing performed by: [address] [address] Blood 03/29/2025 9:10 AM CDT 03/29/2025 9:11 AM CDT Nena Cano [employer] LAB BLOOD ORDERABLES Final Result Performing Organization Address [facility] de Phone Number [facility] [address] Department [place] [address] * (ABNORMAL) Iron profile w/ IBC (03/29/2025 9:10 AM CDT) [facility] Iron 49(L) 50 - 150 mcg/dL Comment:Testing performed by : [address] [address] TIBC 201(L) 250 - 400 mcg/dL [facility] Comment:Testing performed by : [address] [address] Transferrin saturation 24 20 - 50 % [facility] Comment:Testing performed by : [address] [address] Blood 03/29/2025 9:10 AM CDT 03/29/2025 9:47 AM CDT Nena Cano [employer] LAB BLOOD ORDERABLES Final Result Performing Organization Address [facility] de Phone Number [facility] [address] Department [place] [address] * (ABNORMAL) CBC with auto differential (03/29/2025 9:10 AM CDT) WBC 3.58(L) 3.80 - 9.90 K/cumm Comment:Testing performed by : [address] [address] Hgb 8.8(L) 13.0 - 17.5 g/dL [facility] Comment:Testing performed by : [address] [address] Hct 27.7(L) 38.9 - 50.3 % [facility] Comment:Testing performed by : [address] [address] Plt 192 150 - 400 K/cumm [facility] Comment:Testing performed by : [address] [address] MPV 8.8(L) 9.1 - 12.3 fL [facility] Comment:Testing performed by : [address] [address] RBC 3.01(L) 4.30 - 5.80 M/cumm [facility] Comment:Testing performed by : [address] [address] MCV 92.0 81.3 - 96.4 fL [facility] Comment:Testing performed by : [address] [address] MCH 29.2 27.1 - 33.3 pg [facility] Comment:Testing performed by : [address] [address] MCHC 31.8(L) 32.3 - 35.7 g/dL [facility] Comment:Testing performed by : [address] [address] RDW CV 20.7(H) 11.1 - 14.9 % [facility] Comment:Testing performed by : [address] [address] RDW SD 69.5(H) 35.7 - 48.1 fL [facility] SERNA Comment:Testing performed by : [address] [address] NRBC abs 0.00 0.00 - 0.01 K/cumm ISAAC SERNA Comment:Testing performed by : [address] [address] ANC Prelim 1.83 1.50 - 6.50 K/cumm ISAAC Comment: Interpretive Data The rapid ANC is a preliminary automated count and may vary from the final ANC (Neut Abs) reported in the WBC differential that follows. Current interpretive data was last revised 2025. Testing performed by: [address] [address] Blood 03/29/2025 9:10 AM CDT 03/29/2025 9:11 AM CDT Nena Cano NP LAB BLOOD ORDERABLES Final Result Performing Organization Address [facility] de Phone Number [address] Department [place] [address] * Reticulocyte Count (03/29/2025 9:10 AM CDT) Retics, absolute 79 20 - 87 K/cumm Comment:Testing performed by : [address] [address] Retics 2.6 0.4 - 2.9 % ISAAC Comment:Testing performed by : [address] [address] Reticulocyte Hgb 32.0 30.5 - 38.0 pg ISAAC Comment:Testing performed by : [address] [address] Blood 03/29/2025 9:10 AM CDT 03/29/2025 9:11 AM CDT Nena Cano NP LAB BLOOD ORDERABLES Final Result Performing Organization Address [facility] de Phone Number ISAAC SERNA [address] [facility] Department [place] [address] * Ferritin (03/29/2025 9:10 AM CDT) Ferritin 76 30 - 400 ng/mL Comment:Testing performed by : [facility], [address] [place] [address]., [address] Blood 03/29/2025 9:10 AM CDT 03/29/2025 9:47 AM CDT us Nena Cano STEEL FLOOR PAN PLACING SUPERVISOR LAB BLOOD ORDERABLES Final Result ISAAC SERNA [address] [facility] [place] [address] * CT Chest Abdomen Pelvis W Contrast (12/13/2024 7:09 AM TRAILER DRIVER) Anatomical Region Laterality Modality Body N/A Computed Tomogra phy 12/13/2024 7:26 AM TRAILER DRIVER Impressions 12/13/2024 7:26 AM TRAILER DRIVER 1. Nondistended esophagus. No discrete esophageal lesion identified to correspond to known malignancy. 2. No evidence of metastatic disease in the chest, abdomen, and pelvis. Electronically signed by: Courtney Johnson M.D. Narrative 12/13/2024 7:26 AM TRAILER DRIVER EXAMINATION: Computed tomography of the chest, abdomen [...] Res ult * Colonoscopy (11/17/2024 9:34 AM TRAILER DRIVER) Anatomical Region Laterality Modality Other Narrative Procedure Note Lucio Rosas MD - 11/17/2024 9:34 AM CST [facility] GI ENDOSCOPY Patient Name: Brennen Olson Procedure Date: 11/17/2024 9:34 AM Date of : 1950 Admit Type: Outpatient Age: 74 Gender: Male Attending MD: Lucio Rosas M.D. Room: [facility] ENDOSCOPY ROOM 03 Note Status: [...] The scope was passed under direct vision.The [id number]-[id number] colonoscope was introduced through theanus and advanced to the cecum, identified byappendiceal orifice and ileocecal valve. The scope was passed under direct vision. The [id number]-[id number] colonoscope was introduced through the and advanced [...] On: 11/17/2024 9:34 AM Recognized by the [employer] for promoting quality in endoscopy Lucio Rosas MD ENDOSCOPY PROCEDURES Final Resul t from Last 3 Months or Most Recently Relevant to Health Maintenance Insurance [facility] MEDICARE ADVANTAGE MEDICARE [facility] MEDICARE ADVANTAGE Advance Directives For more information, please contact: [phone] * Full Code (Latest Code Status on File) Date Activated Date Inactivated Comments 06/19/2025 8:50 AM 06/19/2025 3:56 PM * Full Code Date Activated Date Inactivated Comments 01/11/2025 10:34 AM 01/12/2025 5:08 AM * Full Code Date Activated Date Inactivated Comments 12/13/2024 8:18 AM 12/13/2024 5:22 PM Care Teams Mechanical Lead Relationship Specialty Start Date End Date Jas Alcala MD [address] [address] PCP - General Internal Medicine 01/04/25 Lucio Rosas MD [address] [address] Consulting Physician Gastroenterology 11/28/24 Hero Pinedo MD [address] [address] Radiation Oncologist Radiation Oncology 12/28/24 Lon Tomas MD [address] [place] [address] Consulting Physician Urology 01/04/25 Jaycee Teresa MD [address] [place] [address] Consulting Physician Cardiology 01/09/25 Francisco Jones DO [address] [facility] [address] [address] Medical Oncologist/Hematologis t Hematology and Oncology 06/03/25
--- OUTSIDE RECORDS SUMMARY | 2025-06-21 11:12 | XMS_ITS | Clinical Summary ---
Author Organization [facility] [employer] Address [address] [facility] [place] [address] Care Team Providers Care Medical Physicist Name Role Phone Jas Alcala MD Unavailable [phone] Jas Alcala MD Primary Care Provider [phone] Source Comments [facility],non-owned Affiliates and Associated Physician Practices is amultiple site organization consisting of ambulatory clinics and hospital sitesin [place], [place], [place] and [place]. This disclosure is being madepursuant to the Care Everywhere program and may not contain all information available regarding this patient. Last updated 18.[facility] [employer] Allergies Active Allergy Reactions Criticality Noted Date [...] on file Legal Sex Male 5:27 AM DIE KEEPER Gender Identity Not on file Sexual Orientation Not on file Last Filed Vital Signs Vital Sign Reading Time Taken Comments Blood Pressure 150/99 10/22/2010 2:45 PM DIE KEEPER Pulse 68 10/22/2010 2:45 PM DIE KEEPER Temperature 36.6 C (97.8 F) 10/22/2010 2:45 PM DIE KEEPER Respiratory Rate 16 10/22/2010 2:45 PM DIE KEEPER Oxygen Saturation 97% 10/22/2010 2:45 PM DIE KEEPER Inhaled Oxygen Concentration - - Weight 129.7 kg (286 lb) 10/22/2010 7:02 AM DIE KEEPER Height 182.9 cm (6') 10/22/2010 7:02 AM DIE KEEPER Body Mass Index 38.79 10/22/2010 7:02 AM DIE KEEPER Plan of Treatment Health Maintenance Due Date [...] 2:20 PM 10/23/2010 7:05 AM Care Teams Medical Physicist Relationship Specialty Start Date End Date Jas Alcala MD [address] [place] [address] PCP - General 10/22/10 Jas Alcala MD Internal Medicine 09/23/10
--- OUTSIDE RECORDS SUMMARY | 2025-06-21 11:12 | XMS_ITS ---
Author Organization [facility] Address [address] [place] [address] Care Team Providers Care Sheet Metal Duct Installer Name Role Phone Lucio Rosas MD Unavailable Hero Pinedo MD Unavailable [phone] Jas Alcala MD Primary Care Provider + [phone] Lon Tomas MD Unavailable [phone] Jaycee Teresa MD Unavailable [phone] Francisco Jones DO Unavailable [phone] Active Problems Patient Care Coordination No te [...] 01/04/2025 Assessment & Plan (11/25/2024 9:39 AM POURER CRANE LADLE): EGD November 2024 with nodules in the distal esophagus, pathology with 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 -Pathology discuss in detail and all questions were answered -Refer for EUS -Refer to Oncology and Cardiothoracic surgery Miller's esophagus with high grade dysplasia Assessment & Plan (11/25/2024 9:41 AM POURER CRANE LADLE): EGD September 2024 with irregular Z-line and gastric ulcers. Pathology with Barretts esophagus, indefinite for dysplasia. Repeat EGD November 2024 with Barretts esophagus, pathology with high-grade dysplasia. -Continue pantoprazole 40 mg p.o. b.i.d. History of colon polyps 11/25/2024 Assessment & Plan (11/25/2024 9:42 AM POURER CRANE LADLE): Colonoscopy November 2024 with multiple tubular adenomas. -Repeat colonoscopy November 2027 Gastric ulcer 09/23/2024 Anemia due to blood loss 09/23/2024 Rectal bleeding 08/22/2024 Radiation proctitis 08/22/2024 Assessment & Plan (11/25/2024 9:41 AM POURER CRANE LADLE): Colonoscopy November 2024 with severe radiation proctitis status post APC. -Consider flex sig with APC, patient advised to call office if rectal bleeding gets worse Eosinophilia 02/22/2024 Iron deficiency anemia, unspecified 02/22/2024 Anemia 02/22/2024 VT (ventricular tachycardia) 05/09/2022 Overview (05/09/2022): Added automatically from request for surgery [id number] Lower urinary tract symptoms (LUTS) 05/24/2020 Malignant neoplasm of prostate 04/25/2013 Current Treatment and Therapy Plans Hydration Therapy Plan* Plan Start Date:02/20/2025 Plan Provider:Bianca Hunter MD Linked Problems Malignant neoplasm of lower third of esophagus (HCC) Treatment Medications No medications scheduled. IV Maintenance Therapy Plan* Plan Start Date:06/19/2025 Plan Provider:Francisco Jones DO Linked Problems Malignant neoplasm of lower third [...]
[2025-06-21 11:43] LABS: Hematocrit 31.0 % (42.0-52.0); Hemoglobin 9.1 g/dL (14.0-18.0); Immature Granulocyte Percent A 0.6 % (0-0.5); Lymphocytes Absolute Auto 0.64 K/mm3 (0.9-3.2); Mean Corpuscular HGB Conc 29.4 g/dl (32-36); Mean Corpuscular Hemoglobin 30.0 pg (26-34); Mean Corpuscular Volume 102.3 fl (80-100); Nucleated Red Blood Cells Absolute Auto 0.000 K/mm3 (0.0-0.012); Nucleated Red Blood Cells Perc 0.0 % (0.0-0.2); Platelet Count Result 235 k/mm3 (150-375); Red Blood Count 3.03 M/mm3 (4.6-6.20); White Blood Count 4.9 K/mm3 (4.5-10.0)
[2025-06-21 12:00] LABS: INR 1.2; Prothrombin Time 15.4 Seconds (11.1-14.7)
[2025-06-21 12:14] LABS: Anisocytosis 1+; Hypochromasia 1+; Schistocytes None Seen
[2025-06-21 12:29] LABS: Anion Gap 8 mmol/L (4-12); Blood Urea Nitrogen 19 mg/dL (9-20); Calcium 9.5 mg/dL (8.4-10.2); Carbon Dioxide 21 mmol/L (22-30); Chloride 108 mmol/L (98-107); Estimated Glomerular Filt Rate 38; Glucose 95 mg/dL (65-110); Potassium 4.4 mmol/L (3.4-5.0); Sodium 137 mmol/L (137-145)
[2025-06-21 13:05] LABS: Prostate Specific Antigen < 0.1 ng/mL (< OR = 4.0)
== END 2025-06-21 10:39 | disposition home or self-care (01) ==
PROVIDERS: PCP Internal Medicine; Visit Provider Nurse Practitioner
DX: Z85.46 Personal history of malignant neoplasm of prostate (principal); Z79.01 Long term (current) use of anticoagulants; I10 Essential (primary) hypertension
CPT/HCPCS: 36415; 80048; 84153; 85025; 85610

== ENCOUNTER 2025-07-04 11:15 | Outpatient (CLI) | payer MEDICARE, SELFPAY ==
--- OUTSIDE RECORDS SUMMARY | 2005-09-16 19:00 | XMS_ITS | Continuity of Care Document ---
Author Organization [facility] Address [address] [place] [phone] Phone Care Team Providers Care Microarray Analyst Name Role Phone Ran Sosa MD Unavailable Unavailable Advance Directives Directive Yes / No Effective Date File Name No Information Encounters Encounter Description Practice Location Reason(s) For Visit Diagnoses Date Provider Providers Copied on Encounter [facility], [address] [facility], [place], [place], [address], tel:[phone] [facility] CERVICAL DISC DISPLACMNT Sheila Tong. [address] , [place], [place], [address], [place]. tel:[phone] [facility], [address] [facility], [place], [place], [address], tel:[phone] [facility] (Ip) FOLLOW-UP SURGERY NOS Conversion Doctor. [address] [place] [address], [address], . [facility], [address], [place], [place], [address], tel:[phone] [facility] ([facility]) LUMB/LUMBOSA C DISC DEGEN Conversion Doctor. [address] [place] [address], [facility], . Family History Family Member Type Diagnosis Age At Onset No Information Payers Payer name Insurance type Covered constitution party ID Authoriza tion(s) No Information Social History [...]
--- OUTSIDE RECORDS SUMMARY | 2010-03-05 10:00 | XMS_ITS | Continuity of Care Document ---
Author Organization [facility] Address [address] [place] [address] Phone Care Team Providers Care Take Up Operator Name Role Phone Bijan Rabago Unavailable Unavailable Procedures Procedure Date Eye Exam, New Patient Refraction Advance Directives Directive Yes / No Effective Date File Name No Information Encounters Encounter Description Practice Location Reason(s) For Visit Diagnoses Date Provider Providers Copied on Encounter [facility], [address], [place], [place], [address], [place] tel:[phone] [facility] No Information 4-201 0 Isiahemily Thakkar. [address] [facility] [address], [place], [address], [place]. tel:[phone] Family History Family Member Type Diagnosis Age At Onset No Information Payers Payer name Insurance type Covered libertarian ID Authoriza tikika(s) [facility] Commercial CI [id number] Social History Type Description Quantity Date Captured [...]
[2025-07-04 11:41] LABS: Hematocrit 32.1 % (42.0-52.0); Hemoglobin 9.7 g/dL (14.0-18.0); Immature Granulocyte Percent A 0.4 % (0-0.5); Lymphocytes Absolute Auto 0.82 K/mm3 (0.9-3.2); Mean Corpuscular HGB Conc 30.2 g/dl (32-36); Mean Corpuscular Hemoglobin 30.4 pg (26-34); Mean Corpuscular Volume 100.6 fl (80-100); Nucleated Red Blood Cells Absolute Auto 0.000 K/mm3 (0.0-0.012); Nucleated Red Blood Cells Perc 0.0 % (0.0-0.2); Platelet Count Result 182 k/mm3 (150-375); Red Blood Count 3.19 M/mm3 (4.6-6.20); White Blood Count 4.7 K/mm3 (4.5-10.0)
--- OUTSIDE RECORDS SUMMARY | 2025-07-04 11:46 | XMS_ITS | Clinical Summary ---
Author Organization [facility] Address [address] [place] [address] Phone Care Team Providers Care Tool Dispatcher Name Role Phone Jas Alcala MD Primary Care Provider [phone] Allergies Active Allergy Reactions Criticality Noted Date [...] on file Legal Sex Male 3:47 PM CNA HHA Gender Identity Not on file Sexual Orientation Not on file Last Filed Vital Signs Vital Sign Reading Time Taken Comments Blood Pressure 142/62 12/29/2019 2:51 PM CNA HHA Pulse 62 12/29/2019 2:51 PM CNA HHA Temperature 36.4 C (97.6 F) 12/29/2019 2:51 PM CNA HHA Respiratory Rate 18 12/29/2019 2:51 PM CNA HHA Oxygen Saturation 99% 12/29/2019 2:51 PM CNA HHA Inhaled Oxygen Concentration - - Weight 137 kg (302 lb) 12/29/2019 2:51 PM CNA HHA Height 182.9 cm (6') 12/29/2019 2:51 PM CNA HHA Body Mass Index 40.96 12/29/2019 2:51 PM CNA HHA Plan of Treatment Health Maintenance Due Date Last Done Comments Hepatitis C Virus (HCV) Screening 1950 TdaP Immunization 1950 Cologuard 1995 Colonoscopy 1995 Colorectal Cancer Screening 1995 Immunochemical Fecal Occult Blood 1995 Pneumococcal Immunization (50+ years) (1 of 1 - PCV) 01/18/2000 Zoster Immunization (1 of 2) 01/18/2000 Respiratory Syncytial Virus (RSV) Immunization (Adult) (1 - 1-dose 75+ series) 2025 Influenza Immunization (#1) 07/03/202509/02, 09/05/2018, 10/15/2017, Additional history exists SARS-COV-2 Immunization ( season) 2025 11/05/2021, 10/21/2021, 01/01/2021, Additional history exists Hepatitis B Immunization Aged [...] age to complete this topic Care Teams Tool Dispatcher Relationship Specialty Start Date End Date Jas Alcala MD PCP - General Internal Medicine 11/09/19
--- OUTSIDE RECORDS SUMMARY | 2025-07-04 11:46 | XMS_ITS | Encounter Summary ---
Author Organization [facility] Address [address] [place] [address] Phone Care Team Providers Care Etiology Teacher Name Role Phone Lucio Rosas MD Unavailable Hero Pinedo MD Unavailable [phone] Jas Alcala MD Primary Care Provider + [phone] Lon Tomas MD Unavailable [phone] Jaycee Teresa MD Unavailable [phone] Francisco Jones DO Unavailable [phone] Encounter Details Date Type Department Care Team (Late st Contact Info) Description 06/13/2025 Results Follow-Up [facility] Medicine [facility] Hematology [facility] [facility] [address] [place] [address] Mihaela Rod, ENGINE REPAIR SUPERVISOR [address] [place] [address] Reticulocyte Count, CBC with auto differential, Iron [...] on file Legal Sex Male 9:38 AM STAFFING SPECIALIST Gender Identity Not on file Sexual Orientation Not on file 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 Not on file Not [...] on filedocumented in this encounter Care Teams Etiology Teacher Relationship Specialty Start Date End Date Jas Alcala MD [address] [place] [address] PCP - General Internal Medicine 01/04/25 Lucio Rosas MD [address] [address] Consulting Physician Gastroenterology 11/28/24 Hero Pinedo MD [address] [place] [address] Radiation Oncologist Radiation Oncology 12/28/24 Lon Tomas MD [address] [place] [address] Consulting Physician Urology 01/04/25 Jaycee Teresa MD [address] [place] [address] Consulting Physician Cardiology 01/09/25 Francisco Jones DO [address] [place] [address] Medical Oncologist/Hematologis t Hematology and Oncology 06/03/25 documented as of this encounter
--- OUTSIDE RECORDS SUMMARY | 2025-07-04 11:46 | XMS_ITS | Encounter Summary ---
Author Organization [facility] Address [address] [place] [address] Care Team Providers Care Mash Preparatory Operator Name Role Phone Jas Alcala MD Primary Care Provider + [phone] Lucio Rosas MD Unavailable Bianca Hunter MD Unavailable + [phone] Hero Pinedo MD Unavailable [phone] Jas Alcala MD Primary Care Provider + [phone] Lon Tomas MD Unavailable [phone] Jaycee Teresa MD Unavailable [phone] Francisco Jones DO Unavailable [phone] Encounter Details Date Type Department Care Team (Late st Contact Info) Description 05/07/2022 Orders Only [facility] Cardiac Catheterization Lab [address] [place] [address] Bryon Potter MD [address] [place] [address] Social History Tobacco Use Types [...] on file 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 Gender Identity Not on file Sexual Orientation Not on file 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 [address] [place] [address] Consulting Physician Gastroenterology 11/28/24 Bianca Hunter MD [address] [facility] [address] [place] [address] Medical Oncologist/Hematologis t Medical Oncology 12/07/24 06/02/25 Hero Pinedo MD [address] [place] [address] Radiation Oncologist Radiation Oncology 12/28/24 Lon Tomas MD [address] [place] [address] Consulting Physician Urology 01/04/25 Jaycee Teresa MD [address] [address] Consulting Physician Cardiology 01/09/25 Francisco Jones DO [address] [place] [address] Medical Oncologist/Hematologis t Hematology and Oncology 06/03/25 documented as of this encounter
--- OUTSIDE RECORDS SUMMARY | 2025-07-04 11:46 | XMS_ITS | Encounter Summary ---
Author Organization [facility] Healthcare Address [address] [place] [address] Care Team Providers Care Desktop Support Manager Name Role Phone Lucio Rosas MD Unavailable Bianca Hunter MD Unavailable [phone] Hero Pinedo MD Unavailable [phone] Jas Alcala MD Primary Care Provider + [phone] Lon Tomas MD Unavailable [phone] Jaycee Teresa MD Unavailable [phone] Franicsco Jones DO Unavailable [phone] Encounter Details Date Type Department Care Team (Latest Contact Info) Description 05/19/2025 Results Follow-Up [facility] Medical Group Gastroenterology at [address] [place] [address] Lucio Rosas MD [address] [place] [address] [address] [place] [address] Surgical pathology Social History Tobacco Use Types [...] on file 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 Gender Identity Not on file Sexual Orientation Not on file 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 file 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 Not on file Not on file Not on file documented as of this encounter Plan of Treatment Not on file documented as of this encounter Visit Diagnoses Not on filedocumented in this encounter Care Teams Desktop Support Manager Relationship Specialty Start Date End Date Jas Alcala MD [address] [place] [address] PCP - General Internal Medicine 01/04/25 Lucio Rosas MD [address] [facility] [address] [place] [address] Consulting Physician Gastroenterology 11/28/24 Bianca Hunter MD [address] [facility] [address] [place] [address] Medical Oncologist/Hematologis t Medical Oncology 12/07/24 06/02/25 Hero Pinedo MD [address] [place] [address] Radiation Oncologist Radiation Oncology 12/28/24 Lon Tomas MD [address] [place] [address] Consulting Physician Urology 01/04/25 Jaycee Teresa MD [address] [address] Consulting Physician Cardiology 01/09/25 Francisco Jones DO [address] [place] [address] Medical Oncologist/Hematologis t Hematology and Oncology 06/03/25 documented as of this encounter
--- OUTSIDE RECORDS SUMMARY | 2025-07-04 11:47 | XMS_ITS | Clinical Summary ---
Author Organization [facility] Address [address] [place] [address] Care Team Providers Care Die Attaching Machine Tender Name Role Phone Jas Alcala MD Primary Care Provider [phone] Allergies Active Allergy Reactions Criticality Noted Date [...] (06/17/2022): Added automatically from request for surgery [id number] Family History Medical History Relation Comments Cancer [...] patient's age to complete [place] [address] Care Teams Die Attaching Machine Tender Relationship Specialty Start Date End Date Jas Alcala MD PCP - General INTERNAL MEDICINE 02/11/22
--- OUTSIDE RECORDS SUMMARY | 2025-07-04 11:47 | XMS_ITS | Clinical Summary ---
Author Organization [facility] [employer] Address [address] [place] [address] Care Team Providers Care Senior Hris Analyst Name Role Phone Jas Alcala MD Unavailable [phone] Jas Alcala MD Primary Care Provider Source Comments [facility],non-owned Affiliates and Associated Physician Practices is amultiple site organization consisting of ambulatory clinics and hospital sitesin [place], [place], [place]. This disclosure is being madepursuant to the Care Everywhere program and may not contain all information available regarding this patient. Last updated 18.[facility] Allergies Active Allergy Reactions Criticality Noted Date [...] on file Legal Sex Male 5:27 AM HOTBED LEVER OPERATOR Gender Identity Not on file Sexual Orientation Not on file Last Filed Vital Signs Vital Sign Reading Time Taken Comments Blood Pressure 150/99 10/22/2010 2:45 PM HOTBED LEVER OPERATOR Pulse 68 10/22/2010 2:45 PM HOTBED LEVER OPERATOR Temperature 36.6 C (97.8 F) 10/22/2010 2:45 PM HOTBED LEVER OPERATOR Respiratory Rate 16 10/22/2010 2:45 PM HOTBED LEVER OPERATOR Oxygen Saturation 97% 10/22/2010 2:45 PM HOTBED LEVER OPERATOR Inhaled Oxygen Concentration - - Weight 129.7 kg (286 lb) 10/22/2010 7:02 AM HOTBED LEVER OPERATOR Height 182.9 cm (6') 10/22/2010 7:02 AM HOTBED LEVER OPERATOR Body Mass Index 38.79 10/22/2010 7:02 AM HOTBED LEVER OPERATOR Plan of Treatment Health Maintenance Due Date [...] 01/18/2000 ZOSTER VACCINE (1 of 2) 01/18/2000 DEPRESSION SCREENING 11/02/2024 Respiratory Syncytial Virus (RSV) Vaccine Pt: or over 60 yrs (1 - 1-dose 75+ series) 2025 COVID-19 VACCINE (1 - 2023-2 5 season) 2025 INFLUENZA VACCINE (#1) 2025 HEPATITIS B [...] 2:20 PM 10/23/2010 7:05 AM Care Teams Senior Hris Analyst Relationship Specialty Start Date End Date aJs Alcala MD [address] [place] [address] PCP - General 10/22/10 Jas Alcala MD Internal Medicine 09/23/10
--- OUTSIDE RECORDS SUMMARY | 2025-07-04 11:47 | XMS_ITS ---
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 -Pathology discuss in detail and all questions were answered -Refer for EUS -Refer to Oncology and Cardiothoracic surgery Miller's esophagus with high grade dysplasia Assessment & Plan (11/25/2024 9:41 AM DROPHAMMER OPERATOR): EGD September 2024 with irregular Z-line and gastric ulcers. Pathology with Barretts esophagus, indefinite for dysplasia. Repeat EGD November 2024 with Barretts esophagus, pathology with high-grade dysplasia. -Continue pantoprazole 40 mg p.o. b.i.d. History of colon polyps 11/25/2024 Assessment & Plan (11/25/2024 9:42 AM DROPHAMMER OPERATOR): Colonoscopy November 2024 with multiple tubular adenomas. -Repeat colonoscopy November 2027 Gastric ulcer 09/23/2024 Anemia due to blood loss 09/23/2024 Rectal bleeding 08/22/2024 Radiation proctitis 08/22/2024 Assessment & Plan (11/25/2024 9:41 AM DROPHAMMER OPERATOR): Colonoscopy November 2024 with severe radiation proctitis status post APC. -Consider flex sig with APC, patient advised to call office if rectal bleeding gets worse Eosinophilia 02/22/2024 Iron deficiency anemia, unspecified 02/22/2024 Anemia 02/22/2024 VT (ventricular tachycardia) 05/09/2022 Overview (05/09/2022): Added automatically from request for surgery [id number] Lower urinary tract symptoms (LUTS) 05/24/2020 Malignant [...] Automatic Entry Manual Entr y Fluoro Time 2.2 minutes 0.3 minutes 1.9 minutes Air kerma at the reference point (Ka,r) 2 mGy 2 mGy 0 mGy DLP 1,363 mGycm 1,363 mGycm 0 mGycm
--- OUTSIDE RECORDS SUMMARY | 2025-07-04 11:47 | XMS_ITS | Clinical Summary ---
Author Organization [facility] Address [address] [place] [address] Care Team Providers Care Building Certifier Name Role Phone Lucio Rosas MD Unavailable Hero Pinedo MD Unavailable [phone] Jas Alcala MD Primary Care Provider [phone] Lon Tomas MD Unavailable [phone] Jaycee Teresa MD Unavailable [phone] Francisco Jones DO Unavailable [phone] Allergies Active Allergy Reactions Criticality Noted Date [...] 1200 mL 11 5 06/19/20 26 Active solifenacin (VESIcare) 5 mg tabletIndicatio ns:Anemia, unspecified [...] at bedtime 120 tablet 1 5 06/19/20 Discontinu ed(Patient Reported) Active Problems Patient Care [...] He also has a history of an MS and PE. 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 -Pathology discuss in detail and all questions were answered -Refer for EUS -Refer to Oncology and Cardiothoracic surgery Miller's esophagus with high grade dysplasia Assessment & Plan (11/25/2024 9:41 AM BALLET SOLOIST): EGD September 2024 with irregular Z-line and gastric ulcers. Pathology with Barretts esophagus, indefinite for dysplasia. Repeat EGD November 2024 with Barretts esophagus, pathology with high-grade dysplasia. -Continue pantoprazole 40 mg p.o. b.i.d. History of colon polyps 11/25/2024 Assessment & Plan (11/25/2024 9:42 AM BALLET SOLOIST): Colonoscopy November 2024 with multiple tubular adenomas. -Repeat colonoscopy November 2027 Gastric ulcer 09/23/2024 Anemia due to blood loss 09/23/2024 Rectal bleeding 08/22/2024 Radiation proctitis 08/22/2024 Assessment & Plan (11/25/2024 9:41 AM BALLET SOLOIST): Colonoscopy November 2024 with severe radiation proctitis status post APC. -Consider flex sig with APC, patient advised to call office if rectal bleeding gets worse Eosinophilia 02/22/2024 Iron deficiency anemia, unspecified 02/22/2024 Anemia 02/22/2024 VT (ventricular tachycardia) 05/09/2022 Overview (05/09/2022): Added automatically from request for surgery [id number] Lower urinary tract symptoms (LUTS) 05/24/2020 Malignant neoplasm of prostate 04/25/2013 Encounters Date Type Department Care Team Description 06/28/20 2:00 PM CDT - 06/28/20 2:30 PM CDT Surgery [facility] GI Center [address] [place] [phone] Jerry Peguero MD EGD 06/28/20 1:15 PM CDT Anesthesia Event [facility] Center [address] [place] [phone] Sergio Gao MD 06/28/20 12:31 PM CDT - 06/28/20 2:18 PM CDT Hospital Encounter [facility] GI Center [address] [place] [phone] Jerry Peguero MD Discharge Disposition: Discharge to home or self care 06/28/20 12:05 PM CDT Lab [facility] Outpatient Lab [address] [place] [phone] Malignant neoplasm of lower third of esophagus (HCC); Abnormal coagulation profile 06/23/20 Telephone [facility] Gastroenterology [address] [place] [address] Office Building [address], [address] [place] [address] Leslie Thomas RN GI Preprocedure 06/23/20 Telephone [facility] Gastroenterology [address] [place] [address] Medical Office Building [address] [place] [address] Lauren Delgado LPN GI Preprocedure 06/23/20 Telephone [facility] Medicine Gastroenterology [address] [facility] Medical Office Building [address] [place] [phone] Amber Posada RN MD recommendations 06/19/20 10:30 AM CDT Anesthesia Event [address] [address] Jacobo Horne MD 06/19/20 10:00 AM CDT - 06/19/20 10:30 AM CDT Surgery [address] [address] Jerry Peguero MD ESOPHAGOGASTRODUODENOSCOPY WITH ABLATION 06/19/20 8:12 AM CDT - 06/19/20 11:51 AM CDT Hospital Encounter [facility] Disease [address] [address] Jerry Peguero MD Discharge Disposition: Discharge to home or self care 06/19/20 7:45 AM CDT Lab [facility] [address] [place] [phone] Anemia, unspecified type; History of pulmonary embolism 06/14/20 11:15 AM CDT Infusion [address] [phone] Iron deficiency anemia, unspecified iron deficiency anemia type (Primary Dx); Anemia, unspecified type; History of pulmonary embolism 06/14/20 10:30 AM CDT Office Visit [facility] H[facility]ology [address] [place] [phone] Mihaela Rod NP Anemia, unspecified type (Primary Dx); History of pulmonary embolism 06/14/20 10:00 AM CDT Clinical Support [address] [address] Anemia, unspecified type; History of pulmonary embolism 06/13/20 25 Orders Only [facility] Hematology [address] [place] [address] 6 [place] [address] Gertrude Zhang Lisa Anemia, unspecified type (Primary Dx); History of pulmonary embolism 06/13/20 Results Follow-Up [facility] Physicians [facility] Hematology [address] [place] [address] [address] [place] [address] Mihaela Rod NP Reticulocyte Count, CBC with auto differential, Iron profile w/ IBC, Additional followed-up results: 2 06/07/20 9:30 AM CDT Clinical Support [facility] at [address] [phone] Anemia, unspecified type; History of pulmonary embolism 06/07/20 25 Orders Only [facility] Hematology [address] [place] [address] 6 [place] [address] Cathy Lawrence RN 06/02/20 Telephone [facility] Gastroenterology [address] [place] [address] Medical Office Building [address], [address] [place] [address] Leslie Thomas RN GI Preprocedure 06/01/20 2:15 PM CDT Office Visit [facility] Physicians [facility] Oncology [address] [place] [phone] Francisco Jones, Malignant neoplasm of lower third of esophagus (HCC) (Primary Dx) 06/01/20 Orders Only [facility] Hematology [address] [place] [address] 6 [place] [address] Gertrude Zhang Lisa Anemia, unspecified type (Primary Dx); History of pulmonary embolism 05/25/20 25 Telephone [facility] Surgery [address] [place] [address] 5 [place] [address] Lorie Little, AGNIESZKA 05/24/20 9:00 AM CDT Clinical Support [address] [address] Anemia, unspecified type; History of pulmonary embolism; Malignant neoplasm of lower third of esophagus (HCC) 05/24/20 25 Telephone [facility] at [address] [place] [phone] Kaycee Chanel RN 05/19/20 Orders Only [facility] Surgery [address] [facility] [address] [place] [address] Charlie Juarez MD Malignant neoplasm of lower third of esophagus (HCC) (Primary Dx) 05/19/20 25 Telephone [facility] Surgery [address] [facility] [address] [place] [phone] Reinaldo Little RMA 05/19/20 Results Follow-Up [facility] Gastroenterology at [address] [place] [address] Lucio Rosas MD Surgical pathology 05/18/20 Telephone [facility] Surgery [address] [facility] Floor 5 [place] [address] Lorie Little NP 05/15/20 Telephone [facility] Medical [facility] Gastroenterology at [address] [place] [phone] Lucio Rosas MD 05/15/20 Orders Only [facility] Gastroenterology at [address] [place] [address] Lucio Rosas MD Gastric ulcer, unspecified chronicity, unspecified whether gastric ulcer hemorrhage or perforation present (Primary Dx) 05/12/20 25 Telephone [facility] Medical [facility] Gastroenterology at [address] [place] [address] Lucio Rosas MD 05/11/20 12:00 PM CDT Infusion [facility] at [address] [place] [phone] Anemia, unspecified type (Primary Dx); History of pulmonary embolism 05/11/20 9:00 AM CDT Clinical Support [facility] at [address] [address] Anemia, unspecified type; History of pulmonary embolism 05/10/20 25 10:43 AM CDT Anesthesia Event [facility] GI Lab [address] [place] [address] Hal Kellogg MD 05/10/20 25 10:30 AM CDT - 05/10/20 25 11:00 AM CDT Surgery [facility] GI Lab [address] [place] [address] Lucio Rosas MD ESOPHAGOGASTRODUODENOSCOPY BIOPSY 05/10/20 9:15 AM CDT - 05/10/20 11:35 AM CDT Hospital Encounter [facility] GI Lab [address] [place] [address] Lucio Rosas MD Malignant neoplasm of lower third of esophagus (HCC) Discharge Disposition: Discharge to home or self care 05/08/20 25 Telephone [facility] Surgery [address] [facility] [address] [place] [phone] Reinaldo Little RMA 05/08/20 25 Orders Only [facility] Surgery [address] [place] [address] [address] [place] [address] Charlie Juarez MD Malignant neoplasm of lower third of esophagus (HCC) (Primary Dx) 05/08/20 25 Telephone [facility] Oncology [address] [place] [address] [address] [place] [address] Roseanna Roa 05/04/20 25 9:15 AM CDT Office Visit [facility] Medicine [facility] Surgery [address] [place] [address] [address] [place] [address] Charlie Juarez MD Malignant neoplasm of lower third of esophagus (HCC) (Primary Dx) 04/27/20 25 10:45 AM CDT [facility] Oncology [address] [place] [address] [address] [place] [address] Bianca Hunter MD Malignant neoplasm of lower third of esophagus (HCC) (Primary Dx) 04/26/20 12:00 PM CDT Infusion [facility] at [address] [place] [address] Anemia, unspecified type (Primary Dx); History of pulmonary embolism 04/26/20 9:00 AM CDT Clinical Support [facility] at [address] [address] Anemia, unspecified type; History of pulmonary embolism; Malignant neoplasm of lower third of esophagus (HCC) 04/21/20 Orders Only [facility] Medical Group Gastroenterology at [address] [place] [address] Lucio Rosas MD Malignant neoplasm of lower third of esophagus (HCC) (Primary Dx) 04/12/20 2:30 PM CDT Clinical Support [facility] Medical Office Building 2 Radiation Oncology [address] [place] [address] Malignant neoplasm of lower third of esophagus (HCC) (Primary Dx) 04/12/20 12:00 PM CDT Infusion [facility] at [address] [phone] Anemia, unspecified type (Primary Dx); History of pulmonary embolism 04/12/20 9:00 AM CDT Clinical Support [facility] at [address] [address] Anemia, unspecified type; History of pulmonary embolism 04/10/20 10:00 AM CDT Office Visit [facility] Medical Office Building 2 Radiation Oncology [address] [place] [phone] Hero Pinedo MD Malignant neoplasm of lower third of esophagus (HCC) (Primary Dx) 04/10/20 8:09 AM CDT - 04/10/20 11:59 PM CDT Hospital Encounter [facility] Medical Office Building [address] [place] [address] Malignant neoplasm of lower third of esophagus (HCC) Discharge Disposition: Discharge to home or self care 04/04/20 10:45 AM CDT Infusion [address] [place] [phone] Malignant neoplasm of lower third of esophagus (HCC) (Primary Dx); Anemia, unspecified type 04/04/20 9:45 AM CDT Clinical Support [address] [address] Anemia, unspecified type; History of pulmonary embolism 04/04/20 Orders Only [facility] Oncology [address] [place] [phone] Meme Dean, RN Anemia, unspecified type (Primary Dx) from Last [...] TONSILLECTOMY Tonsillectomy - (Added by TW Conv) OK REPAIR FIRST ABDOMINAL WA LL HERNIA Ventral Hernia Repair - 11/2013 (Added by TW Conv) w/poss mesh CATARACT EXTRACTION, BILATERAL COLONOSCOPY URETHRAL DILATION N/A UPPER GASTROINTESTINAL ENDOSCOPY PORT PLACEMENT CHEST >5 YEARS 01/11/2025 N/A Medical History Medical History Date Comments Chronic bronchitis with productive mucopurulent cough (HCC) Prostate cancer (HCC) Hepatitis A Neuropathy 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MS (myocardial infarction) (HCC) 2018 PE (pulmonary thromboembolism) 2019 GERD (gastroesophageal reflux disease) Chronic kidney disease stage 3 Neck pain Obesity Full dentures upper and lower Wears glasses Colon polyp Dysphagia Atrial fibrillation (HCC) HTN (hypertension) DVT (deep venous thrombosis) History of radiation therapy Tinnitus Neck mass Hyperlipidemia Cancer of esophagus Family History Medical History Relation Name Comments [...] Answered Alcohol Use Standard Drinks/Week Comments Yes 0 (1 standard drink = 0.6 oz pur e alcohol) AUDIT-C Answer Date Recorded Q1: How often do you have a drink containing alc ohol? Monthly or less 06/28/2025 Q2: How many drinks containi ng alcohol do you have on a typical day when you are drinking? 1 or 2 06/28/2025 Q3: How often do you have si x or more drinks on one occasion? Less than monthly 06/28/2025 Personal Safety Answer Date Recorded Have you ever been in or are you currently in a harmful physical or emotional relationship or is someone making you feel afraid or unsafe? 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 Not on file Not on file Not on file Obstetrics History Last Filed Vital Signs Vital Sign Reading Time Taken Comments Blood Pressure 109/66 06/28/2025 2:01 PM CDT Pulse 70 06/28/2025 2:01 PM CDT Temperature 36.2 C (97.2 F) 06/28/2025 12:56 PM CDT Respiratory Rate 16 06/28/2025 2:01 PM CDT Oxygen Saturation 100% 06/28/2025 2:01 PM CDT Inhaled Oxygen Concentration - - Weight 113.4 kg (250 lb) 06/28/2025 12:56 PM CDT Height 182.9 cm (6') 06/28/2025 12:56 PM CDT Body Mass Index 33.91 06/28/2025 12:56 PM CDT Plan of Treatment Health Maintenance Due [...] 09/17/2019, Additional history exists Fall Risk Assessment 06/28/2026 06/28/2025, 01/05/20 Colon Cancer Screening-Colonoscopy 11/17/2027 11/17/2024 Colon Cancer Screening-CT Colonography Discontinued 11/17/2024 Colon Cancer Screening-DNA Stool Discontinued 11/17/19 Colon Cancer Screening-FIT Discontinued 11/17/2024 Colon Cancer Screening-Sigmoidoscopy Discontinued 11/17/2024 Abdominal Aortic Aneurysm (A AA) Screen Completed 12/13/2024 Medical Devices Implanted Type Area Welcome Wagon Hostess Device Identifier Shelf Expiration Date Model / Serial / Lot Screws And Rods Spine Lumbar [employer] Power Port 8fr [id number] - [id number] Implanted:Qty: 1 on 01/11/2025 by iLnda Cardenas PA at [facility] [employer] 08/29/2029 [id number] / / [id number] Procedures Procedure Name Priority Date/Time Associated Diagnosis Comments ESOPHAGOGASTRODUODENOSCOPY 06/28 1:15 PM CDT Malignant neoplasm of lower third of esophagus (HCC) EGD 06/28/2025 1:10 PM CDT PROTIME-INR STAT 06/28/2025 12:16 PM CDT Malignant neoplasm of lower third of esophagus (HCC) Abnormal coagulation profile ESOPHAGOGASTRODUODENOSCOPY WITH ABLATION 06/19/2025 10:30 AM CDT [...] Read Routine (OP Routine) 12/13/2024 7:09 AM BALLET SOLOIST Malignant neoplasm of lower third of esophagus (HCC) COLONOSCOPY 11/17/2024 9:34 AM BALLET SOLOIST from Last 3 Months or Most Recently Relevant to Health Maintenance Results * EGD (06/28/2025 1:10 PM CDT) Anatomical Region Laterality Modality Other Narrative Procedure Note Jerry Peguero MD - 06/28/2025 1:10 PM CDT ENDOSCOPY LAB Patient Name: Brennen Olson Procedure Date: 06/28/2025 1:10 PM Admit Type: Outpatient Room: [facility] Date of : 1950 Instrument Name: [id number] Gender: Male Note Status: Finalized Procedure: Upper GI endoscopy Indications: Dysphagia - h/o recent EGD for cryotherapy.Symptoms now resolved. Providers: Jerry Peguero M.D. Referring MD: Francisco Jones D.O. Medicines: Monitored Anesthesia Care Complications: No immediate [...] scope was passed under direct vision. The Endoscope was introduced through the mouth, and advanced to the second part of duodenum. The upperGI endoscopy was accomplished without difficulty. The patient tolerated the procedure well. Findings: One circumferential cratered esophageal ulcer was found in the lower third of the esophagus. This is from recent cryotherapy. The lumenwas widely patent. The entire examined stomach was normal. The examined duodenum was normal. Impression: - Esophageal ulcer from cryotherapy. Widely patent esophagus. - Normal stomach. - Normal examined duodenum. Recommendation: - Observe patient's clinical course. - Return to referring provider as previouslyscheduled. - Repeat cryotherapy as previously scheduled. - Carafate QID. Attending Participation: I personally performed the entire procedure. Electronically signed by Jerry Peguero M.D. Jerry Peguero M.D. 06/28/2025 1:37:53 PM This document was signed electronically. Number of Addenda: 0 Note Initiated On: 06/28/2025 1:10 PM Scope In: Scope Out: us Jerry Peguero MD ENDOSCOPY PROCEDURES Final Result * (ABNORMAL) Protime-INR (06/28/2025 12:16 PM CDT) PT 16.0(H) 10.2 - 13.5 sec INR 1.43(H) 0.90 - 1.20 [facility] Comment: Interpretive data Oral anticoagulant therapeutic ranges: Venous thromboembolism prophylaxis or treatment: 2.0-3.0 CARDIOLOGY Standard range: 2.0-3.0 High-intensity range: 2.5-3.5 Refer to indication-specific guidelines for appropriate target ranges for prosthetic heart valve replacement. Current interpretive data was last revised on 2019. Blood 06/28/2025 12:1 6 PM CDT 06/28/2025 12:50 PM CDT us Jerry Peguero MD LAB BLOOD ORDERABLES Final Result Performing Organization Address [facility] Co de Phone Number [facility] [address] [place] [address] * (ABNORMAL) Protime-INR (06/19/2025 9:16 AM CDT) PT 14.5(H) 10.2 - 13.5 sec INR 1.29(H) 0.90 - 1.20 [facility] Comment: Interpretive data Oral anticoagulant therapeutic ranges: Venous thromboembolism prophylaxis or treatment: 2.0-3.0 CARDIOLOGY Standard range: 2.0-3.0 High-intensity range: 2.5-3.5 Refer to indication-specific guidelines for appropriate target ranges for prosthetic heart valve replacement. Current interpretive data was last revised on 2019. Blood 06/19/2025 9:16 AM CDT 06/19/2025 9:21 AM CDT us Jacobo Horne MD LAB BLOOD ORDERABLES Final Re sult Performing Organization Address [facility] Co de Phone Number [facility] [place] [address] * EGD (06/19/2025 8:58 AM CDT) Anatomical Region Laterality Modality Other Narrative Procedure Note Jerry Peguero MD - 06/19/2025 8:58 AM CDT GI ENDOSCOPY [facility] Patient Name: Brennen Olson Procedure Date: 06/19/2025 8:58 AM Date of : 1950 Admit Type: Outpatient Age: 75 Gender: Male Attending MD: Jerry Peguero M.D., Room: [facility] ENDOSCOPY ROOM 2 Note Status: Finalized [...] passed under direct vision. The GIF [id number] endoscope was introducedthrough the mouth, and advanced [...] Type and screen (06/19/2025 7:52 AM CDT) Pathologist [facility], indirect Negative ABO Rh A Positive [facility] Blood 06/19/2025 7:52 AM CDT 06/19/2025 8:44 AM CDT Narrative [facility] - 06/19/2025 10:03 AM CDT Has the patient had Daratumumab or Isatuximab in the past 6 months?->Unknown Mihaela Rod NP LAB BLOOD BANK TEST DARIEL ELLINGTON Final Result [facility] [place] [address] * Differential, auto (06/19/2025 7:51 AM CDT) [facility] Neutrophil abs 2.78 1.50 - 6.50 K/cumm Imm gran abs 0.08 0.00 - 0.10 K/cumm [facility] Lymphocyte abs 0.92 0.80 - 3.30 K/cumm [facility] Monocyte abs 0.74 0.20 - 0.80 K/cumm [facility] Eosinophil abs 0.23 0.00 - 0.50 K/cumm [facility] Basophil abs 0.04 0.00 - 0.10 K/cumm [facility] Neutrophil pct 58.1 % [facility] Comment: Interpretive Data Percent cell count reference ranges are not reported, since discordance with absolute values may lead to misinterpretation of CBC data. Current Interpretive Data was last revised on 2018. Imm gran pct 1.7 % [facility] Comment: Interpretive Data Percent cell count reference ranges are not reported, since discordance with absolute values may lead to misinterpretation of CBC data. Current Interpretive Data was last revised on 2018. Lymphocyte pct 19.2 % [facility] Comment: Interpretive Data Percent cell count reference ranges are not reported, since discordance with absolute values may lead to misinterpretation of CBC data. Current Interpretive Data was last revised on 2018. Monocyte pct 15.4 % [facility] Comment: Interpretive Data Percent cell count reference ranges are not reported, since discordance with absolute values may lead to misinterpretation of CBC data. Current Interpretive Data was last revised on 2018. Eosinophil pct 4.8 % [facility] Comment: Interpretive Data Percent cell count reference ranges are not reported, since discordance with absolute values may lead to misinterpretation of CBC data. Current Interpretive Data was last revised on 2018. Basophil pct 0.8 % [facility] Comment: Interpretive Data Percent cell count reference ranges are not reported, since discordance with absolute values may lead to misinterpretation of CBC data. Current Interpretive Data was last revised on 2018. Blood 06/19/2025 7:51 AM CDT 06/19/2025 8:28 AM CDT Mihaela Rod GOVERNMENT SALES MANAGER LAB BLOOD ORDERABLES Fin al Result Performing Organization Address [facility] de Phone Number [facility] Department [place] [address] * Iron profile w/ IBC (06/19/2025 7:51 AM CDT) [facility] Iron 115 50 - 150 mcg/dL TIBC 298 250 - 400 mcg/dL [facility] Transferrin saturation 39 20 - 50 % [facility] Blood 06/19/2025 7:51 AM CDT 06/19/2025 8:28 AM CDT Mihaela Rod GOVERNMENT SALES MANAGER LAB BLOOD ORDERABLES Fin al Result Performing Organization Address [facility] de Phone Number [facility] Department [place] [address] * (ABNORMAL) CBC with auto differential (06/19/2025 7:51 AM CDT) [facility] WBC 4.79 3.80 - 9.90 K/cumm Hgb 9.0(L) 13.0 - 17.5 g/dL [facility] Hct 29.6(L) 38.9 - 50.3 % [facility] Plt 254 150 - 400 K/cumm [facility] MPV 8.8(L) 9.1 - 12.3 fL [facility] RBC 2.98(L) 4.30 - 5.80 M/cumm [facility] [place] MCV 99.3(H) 81.3 - 96.4 fL [facility] MCH 30.2 27.1 - 33.3 pg [facility] [place] MCHC 30.4(L) 32.3 - 35.7 g/dL [facility] [place] RDW CV 16.8(H) 11.1 - 14.9 % [facility] [place] RDW SD 57.8(H) 35.7 - 48.1 fL [facility] [place] NRBC abs 0.00 0.00 - 0.01 K/cumm [facility] [place] Blood 06/19/2025 7:51 AM CDT 06/19/2025 8:28 AM CDT Mihaela Rod GOVERNMENT SALES MANAGER LAB BLOOD ORDERABLES Fin al Result Performing Organization Address City/[facility] Co de Phone Number [facility] [place] [address] * (ABNORMAL) Reticulocyte Count (06/19/2025 7:51 AM CDT) [facility] Retics, absolute 168(H) 20 - 87 K/cumm Retics 5.6(H) 0.4 - 2.9 % [facility] [place] Reticulocyte Hgb 35.0 30.5 - 38.0 pg [facility] [place] Blood 06/19/2025 7:51 AM CDT 06/19/2025 8:28 AM CDT Mihaela Rod GOVERNMENT SALES MANAGER LAB BLOOD ORDERABLES Fin al Result [facility] Department [place] [address] * (ABNORMAL) Ferritin (06/19/2025 7:51 AM CDT) [facility] Ferritin 423(H) 30 - 400 ng/mL Blood 06/19/2025 7:51 AM CDT 06/19/2025 8:28 AM CDT Mihaela Rod GOVERNMENT SALES MANAGER LAB BLOOD ORDERABLES Fin al Result [facility] CERV[facility] [place] [address] * (ABNORMAL) eGFR (06/14/2025 10:05 AM CDT) eGFR 45(L) >=60 mL/min/1. 73 [...] was last reviewed 2021. Testing performed by: [facility], [address] [place] [address]., [address] Blood 06/14/2025 10:0 5 AM CDT 06/14/2025 10:06 AM CDT us Nena Cano GOVERNMENT SALES MANAGER LAB BLOOD ORDERABLES Final Result IS[facility] [address] [facility] Department [place] [address] * (ABNORMAL) Differential, auto (06/14/2025 10:05 AM CDT) Neutrophil abs 2.53 1.50 - 6.50 K/cumm Comment:Testing performed by : [address], [place]., [address] Imm gran abs 0.02 0.00 - 0.10 K/cumm ISAAC Comment:Testing performed by : [address], [place]., [address] Lymphocyte abs 0.60(L) 0.80 - 3.30 K/cumm [facility] Comment:Testing performed by : [address], [place]., [address] Monocyte abs 0.61 0.20 - 0.80 K/cumm IS[facility] Comment:Testing performed by : [address] [address] Eosinophil abs 0.21 0.00 - 0.50 K/cumm [facility] Comment:Testing performed by : [address] [address] Basophil abs 0.03 0.00 - 0.10 K/cumm [facility] Comment:Testing performed by : [address] [address] Neutrophil pct 63.1 % [facility] Comment: Interpretive Data Percent cell count reference ranges are not reported, since discordance with absolute values may lead to misinterpretation of CBC data. Current Interpretive Data was last revised on 2018. Testing performed by: [address] [address] Imm gran pct 0.5 % [facility] Comment: Interpretive Data Percent cell count reference ranges are not reported, since discordance with absolute values may lead to misinterpretation of CBC data. Current Interpretive Data was last revised on 2018. Testing performed by: [address] [address] Lymphocyte pct 15.0 % [facility] Comment: Interpretive Data Percent cell count reference ranges are not reported, since discordance with absolute values may lead to misinterpretation of CBC data. Current Interpretive Data was last revised on 2018. Testing performed by: [address] [address] Monocyte pct 15.3 % [facility] Comment: Interpretive Data Percent cell count reference ranges are not reported, since discordance with absolute values may lead to misinterpretation of CBC data. Current Interpretive Data was last revised on 2018. Testing performed by: [address] [address] Eosinophil pct 5.3 % [facility] Comment: Interpretive Data Percent cell count reference ranges are not reported, since discordance with absolute values may lead to misinterpretation of CBC data. Current Interpretive Data was last revised on 2018. Testing performed by: [address] [address] Basophil pct 0.8 % [facility] Comment: Interpretive Data Percent cell count reference ranges are not reported, since discordance with absolute values may lead to misinterpretation of CBC data. Current Interpretive Data was last revised on 2018. Testing performed by: [address] [address] Blood 06/14/2025 10:0 5 AM CDT 06/14/2025 10:06 AM CDT Nena Cano NP LAB BLOOD ORDERABLES Final Result IS[facility] [address] [facility] Department [place] [address] * Iron profile w/ IBC (06/14/2025 10:05 AM CDT) Iron 105 50 - 150 mcg/dL Comment:Testing performed by : [address] [address] TIBC 258 250 - 400 mcg/dL ISAAC SERNA Comment:Testing performed by : [address] [address] Transferrin saturation 41 20 - 50 % IS[facility]AC Comment:Testing performed by : [address] [address] Blood 06/14/2025 10:0 5 AM CDT 06/14/2025 11:48 AM CDT us Nena Cano GOVERNMENT SALES MANAGER LAB BLOOD ORDERABLES Final Result ISAAC [address] [facility] Department of Laboratories [place], [place] [id number] * (ABNORMAL) CBC with auto differential (06/14/2025 10:05 AM CDT) WBC 4.00 3.80 - 9.90 K/cumm Comment:Testing performed by : [address] [address] Hgb 8.4(L) 13.0 - 17.5 g/dL [facility] Comment:Testing performed by : [address], [address] Hct 27.3(L) 38.9 - 50.3 % [facility] Comment:Testing performed by : [address] [address] Plt 228 150 - 400 K/cumm ISAAC Comment:Testing performed by : [address] [address] MPV 8.4(L) 9.1 - 12.3 fL [facility] Comment:Testing performed by : [address] [address] RBC 2.85(L) 4.30 - 5.80 M/cumm IS[facility]AC Comment:Testing performed by : [address] [address] MCV 95.8 81.3 - 96.4 fL [facility] Comment:Testing performed by : [address] [address] MCH 29.5 27.1 - 33.3 pg [facility] Comment:Testing performed by : [address] [address] MCHC 30.8(L) 32.3 - 35.7 g/dL [facility] Comment:Testing performed by : [address], [address] RDW CV 14.7 11.1 - 14.9 % [facility] Comment:Testing performed by : [address] [address] RDW SD 51.8(H) 35.7 - 48.1 fL [facility] SERNA Comment:Testing performed by : [address] [address] NRBC abs 0.00 0.00 - 0.01 K/cumm IS[facility] SERNA Comment:Testing performed by : [address] [address] ANC Prelim 2.53 1.50 - 6.50 K/cumm IS[facility] SERNA Comment: Interpretive Data The rapid ANC is a preliminary automated count and may vary from the final ANC (Neut Abs) reported in the WBC differential that follows. Current interpretive data was last revised 2025. Testing performed by: [address] [address] Blood 06/14/2025 10:0 5 AM CDT 06/14/2025 10:06 AM CDT Nena Cano GOVERNMENT SALES MANAGER LAB BLOOD ORDERABLES Final Result ISAAC [address] [facility] Department [place] [address] * (ABNORMAL) Reticulocyte Count (06/14/2025 10:05 AM CDT) Retics, absolute 95(H) 20 - 87 K/cumm Comment:Testing performed by : [address] [address] Retics 3.3(H) 0.4 - 2.9 % [facility] SERNA Comment:Testing performed by : [address] [address] Reticulocyte Hgb 25.3(L) 30.5 - 38.0 pg [facility] SERNA Comment:Testing performed by : [address] [address] Blood 06/14/2025 10:0 5 AM CDT 06/14/2025 10:06 AM CDT Nena Cano GOVERNMENT SALES MANAGER LAB BLOOD ORDERABLES Final Result DAYANA[address] [address] * Ferritin (06/14/2025 10:05 AM CDT) Ferritin 44 30 - 400 ng/mL Comment:Testing performed by : [address] [address] Blood 06/14/2025 10:0 5 AM CDT 06/14/2025 11:48 AM CDT Nena Cano GOVERNMENT SALES MANAGER LAB BLOOD ORDERABLES Final Result Performing Organization Address [facility] Co de Phone Number ISAAC [address] [address] * (ABNORMAL) Comprehensive metabolic panel (06/14/2025 10:05 AM CDT) Pathologist [facility] Sodium 139 135 - 145 mmol/L Comment:Testing performed by : [address] [address] Potassium, pl 4.3 3.3 - 4.9 mmol/L ISAAC Comment:Testing performed by : [address] [address] Chloride 107 97 - 110 mmol/L IS[facility] Comment:Testing performed by : [address] [address] CO2 22 22 - 32 mmol/L IS[facility] Comment:Testing performed by : [address] [address] Anion gap 10 2 - 15 mmol/L IS[facility] Comment:Testing performed by : [address] [address] BUN 25 6 - 25 mg/dL IS[facility] Comment:Testing performed by : [address] [address] Creatinine 1.60(H) 0.80 - 1.30 mg/dL IS[facility] Comment:Testing performed by : [address] [address] Glucose 88 70 - 199 mg/dL [facility] Comment: Interpretive [...] was last revised 2022. Testing performed by: [address] [address] Calcium 8.9 8.5 - 10.3 mg/dL IS[facility] Comment:Testing performed by : [address] [address] Bilirubin, total 0.2 0.1 - 1.2 mg/dL IS[facility]AC Comment:Testing performed by : [address] [address] Protein, pl 6.6 6.5 - 8.5 g/dL [facility] Comment:Testing performed by : [address] [address] Albumin 3.8 3.5 - 5.0 g/dL [facility] Comment:Testing performed by : [address] [address] Alk phos 65 40 - 130 Units/L IS[facility] Comment:Testing performed by : [address] [address] ALT 10 7 - 55 Units/L [facility] Comment:Testing performed by : [address] [address] AST 16 10 - 50 Units/L [facility] Comment:Testing performed by : [address] [address] Blood 06/14/2025 10:0 5 AM CDT 06/14/2025 10:06 AM CDT us Nena Cano GOVERNMENT SALES MANAGER LAB BLOOD ORDERABLES Final Result ISAAC [address] [facility] Department [place] [address] * (ABNORMAL) Differential, auto (06/07/2025 9:24 AM CDT) Neutrophil abs 2.55 1.50 - 6.50 K/cumm Comment:Testing performed by : [address] [address] Imm gran abs 0.03 0.00 - 0.10 K/cumm ISAAC Comment:Testing performed by : [address] [address] Lymphocyte abs 0.72(L) 0.80 - 3.30 K/cumm ISAAC Comment:Testing performed by : [address] [address] Monocyte abs 0.56 0.20 - 0.80 K/cumm ISAAC Comment:Testing performed by : [address] [address] Eosinophil abs 0.23 0.00 - 0.50 K/cumm ISAAC Comment:Testing performed by : [address] [address] Basophil abs 0.04 0.00 - 0.10 K/cumm ISAAC Comment:Testing performed by : [address] [address] Neutrophil pct 61.7 % IS[facility] Comment: Interpretive Data Percent cell count reference ranges are not reported, since discordance with absolute values may lead to misinterpretation of CBC data. Current Interpretive Data was last revised on 2018. Testing performed by: [address] [address] Imm gran pct 0.7 % IS[facility] Comment: Interpretive Data Percent cell count reference ranges are not reported, since discordance with absolute values may lead to misinterpretation of CBC data. Current Interpretive Data was last revised on 2018. Testing performed by: [address] [place] [address] Lymphocyte pct 17.4 % [facility] Comment: Interpretive Data Percent cell count reference ranges are not reported, since discordance with absolute values may lead to misinterpretation of CBC data. Current Interpretive Data was last revised on 2018. Testing performed by: [address] [address] Monocyte pct 13.6 % [facility] Comment: Interpretive Data Percent cell count reference ranges are not reported, since discordance with absolute values may lead to misinterpretation of CBC data. Current Interpretive Data was last revised on 2018. Testing performed by: [address] [address] Eosinophil pct 5.6 % [facility] Comment: Interpretive Data Percent cell count reference ranges are not reported, since discordance with absolute values may lead to misinterpretation of CBC data. Current Interpretive Data was last revised on 2018. Testing performed by: [address] [address] Basophil pct 1.0 % [facility] Comment: Interpretive Data Percent cell count reference ranges are not reported, since discordance with absolute values may lead to misinterpretation of CBC data. Current Interpretive Data was last revised on 2018. Testing performed by: [address] [address] Blood 06/07/2025 9:24 AM CDT 06/07/2025 9:32 AM CDT Nena Cano GOVERNMENT SALES MANAGER LAB BLOOD ORDERABLES Final Result [facility] [address] [facility] Department [place] [address] * (ABNORMAL) Iron profile w/ IBC (06/07/2025 9:24 AM CDT) Iron 36(L) 50 - 150 mcg/dL Comment:Testing performed by : [address] [address] TIBC 260 250 - 400 mcg/dL IS[facility] Comment:Testing performed by : [address] [address] Transferrin saturation 14(L) 20 - 50 % IS[facility] Comment:Testing performed by : [address] [address] Blood 06/07/2025 9:24 AM CDT 06/07/2025 11:43 AM CDT Nena Cano GOVERNMENT SALES MANAGER LAB BLOOD ORDERABLES Final Result ISAAC [address] [facility] Department [place] [address] * (ABNORMAL) CBC with auto differential (06/07/2025 9:24 AM CDT) WBC 4.13 3.80 - 9.90 K/cumm Comment:Testing performed by : [address] [address] Hgb 8.9(L) 13.0 - 17.5 g/dL IS[facility] Comment:Testing performed by : [address] [address] Hct 28.1(L) 38.9 - 50.3 % [facility] Comment:Testing performed by : [address] [address] Plt 232 150 - 400 K/cumm ISAAC Comment:Testing performed by : [address] [address] MPV 8.3(L) 9.1 - 12.3 fL [facility] Comment:Testing performed by : [address] [address] RBC 2.92(L) 4.30 - 5.80 M/cumm ISAAC SERNA Comment:Testing performed by : [address] [address] MCV 96.2 81.3 - 96.4 fL IS[facility] Comment:Testing performed by : [address] [address] MCH 30.5 27.1 - 33.3 pg IS[facility] SERNA Comment:Testing performed by : [address] [address] MCHC 31.7(L) 32.3 - 35.7 g/dL ISAAC SERNA Comment:Testing performed by : [address] [address] RDW CV 15.0(H) 11.1 - 14.9 % [facility] Comment:Testing performed by : [address] [address] RDW SD 53.0(H) 35.7 - 48.1 fL [facility] Comment:Testing performed by : [address] [address] NRBC abs 0.00 0.00 - 0.01 K/cumm ISAAC Comment:Testing performed by : [address] [address] ANC Prelim 2.55 1.50 - 6.50 K/cumm ISAAC Comment: Interpretive Data The rapid ANC is a preliminary automated count and may vary from the final ANC (Neut Abs) reported in the WBC differential that follows. Current interpretive data was last revised 2025. Testing performed by: [address] [address] Blood 06/07/2025 9:24 AM CDT 06/07/2025 9:32 AM CDT Nena Cano NP LAB BLOOD ORDERABLES Final Result [facility] [address] [facility] Department [place] [address] * (ABNORMAL) Reticulocyte Count (06/07/2025 9:24 AM CDT) Retics, absolute 89(H) 20 - 87 K/cumm Comment:Testing performed by : [address] [address] Retics 3.1(H) 0.4 - 2.9 % ISAAC Comment:Testing performed by : [address] [place] [address] Reticulocyte Hgb 26.6(L) 30.5 - 38.0 pg IS[facility] Comment:Testing performed by : [address] [address] Blood 06/07/2025 9:24 AM CDT 06/07/2025 9:32 AM CDT Nena Cano GOVERNMENT SALES MANAGER LAB BLOOD ORDERABLES Final Result Performing Organization Address City/[facility] Co de Phone Number DAYANA[address] [place] [address] * Ferritin (06/07/2025 9:24 AM CDT) Pathologist [facility] Ferritin 41 30 - 400 ng/mL Comment:Testing performed by : [address] [address] Blood 06/07/2025 9:24 AM CDT 06/07/2025 11:43 AM CDT Nena Cano GOVERNMENT SALES MANAGER LAB BLOOD ORDERABLES Final Result Performing Organization Address City/[facility] Co de Phone Number DAYANA[address] [place] [address] * (ABNORMAL) eGFR (05/24/2025 9:05 AM CDT) [...] was last reviewed 2021. Testing performed by: [address] [address] Blood 05/24/2025 9:05 AM CDT 05/24/2025 9:10 AM CDT us Bianca Hunter MD LAB BLOOD ORDERABLES Final Result [facility] [address] [facility] Department [place] [address] * (ABNORMAL) Differential, auto (05/24/2025 9:05 AM CDT) Neutrophil abs 2.41 1.50 - 6.50 K/cumm Comment:Testing performed by : [address] [address] Imm gran abs 0.05 0.00 - 0.10 K/cumm ISAAC Comment:Testing performed by : [address] [address] Lymphocyte abs 0.67(L) 0.80 - 3.30 K/cumm ISAAC Comment:Testing performed by : [address] [address] Monocyte abs 0.70 0.20 - 0.80 K/cumm ISAAC Comment:Testing performed by : [address] [address] Eosinophil abs 0.29 0.00 - 0.50 K/cumm ISAAC Comment:Testing performed by : [address] [address] Basophil abs 0.04 0.00 - 0.10 K/cumm ISAAC Comment:Testing performed by : [address] [address] Neutrophil pct 57.9 % [facility] Comment: Interpretive Data Percent cell count reference ranges are not reported, since discordance with absolute values may lead to misinterpretation of CBC data. Current Interpretive Data was last revised on 2018. Testing performed by: [address] [address] Imm gran pct 1.2 % [facility] Comment: Interpretive Data Percent cell count reference ranges are not reported, since discordance with absolute values may lead to misinterpretation of CBC data. Current Interpretive Data was last revised on 2018. Testing performed by: [address] [address] Lymphocyte pct 16.1 % [facility] Comment: Interpretive Data Percent cell count reference ranges are not reported, since discordance with absolute values may lead to misinterpretation of CBC data. Current Interpretive Data was last revised on 2018. Testing performed by: [address] [address] Monocyte pct 16.8 % [facility] Comment: Interpretive Data Percent cell count reference ranges are not reported, since discordance with absolute values may lead to misinterpretation of CBC data. Current Interpretive Data was last revised on 2018. Testing performed by: [address] [address] Eosinophil pct 7.0 % [facility] Comment: Interpretive Data Percent cell count reference ranges are not reported, since discordance with absolute values may lead to misinterpretation of CBC data. Current Interpretive Data was last revised on 2018. Testing performed by: [address] [address] Basophil pct 1.0 % [facility] Comment: Interpretive Data Percent cell count reference ranges are not reported, since discordance with absolute values may lead to misinterpretation of CBC data. Current Interpretive Data was last revised on 2018. Testing performed by: [address] [address] Blood 05/24/2025 9:05 AM CDT 05/24/2025 9:10 AM CDT Bianca Hunter MD LAB BLOOD ORDERABLES Final Result Performing Organization Address City/State/[facility] Co de Phone Number ISAAC [address] [facility] Department [place] [address] * (ABNORMAL) Iron profile w/ IBC (05/24/2025 9:05 AM CDT) Pathologist [facility] Iron 108 50 - 150 mcg/dL Comment:Testing performed by : [address] [address] TIBC 242(L) 250 - 400 mcg/dL ISAAC SERNA Comment:Testing performed by : [address] [address] Transferrin saturation 45 20 - 50 % ISAAC SERNA Comment:Testing performed by : [address] [address] Blood 05/24/2025 9:05 AM CDT 05/24/2025 9:39 AM CDT Nena Cano GOVERNMENT SALES MANAGER LAB BLOOD ORDERABLES Final Result Performing Organization Address [facility] Co de Phone Number ISA[facility] [address] [facility] Department [place] [address] * (ABNORMAL) CBC with auto differential (05/24/2025 9:05 AM CDT) [facility] WBC 4.16 3.80 - 9.90 K/cumm Comment:Testing performed by : [address] [address] Hgb 9.2(L) 13.0 - 17.5 g/dL ISAAC SERNA Comment:Testing performed by : [address] [address] Hct 28.8(L) 38.9 - 50.3 % IS[facility] SERNA Comment:Testing performed by : [address] [address] Plt 204 150 - 400 K/cumm ISAAC SERNA Comment:Testing performed by : [address] [address] MPV 8.3(L) 9.1 - 12.3 fL [facility] SERNA Comment:Testing performed by : [address] [address] RBC 2.98(L) 4.30 - 5.80 M/cumm ISAAC Comment:Testing performed by : [address] [address] MCV 96.6(H) 81.3 - 96.4 fL IS[facility] Comment:Testing performed by : [address] [address] MCH 30.9 27.1 - 33.3 pg [facility] Comment:Testing performed by : [address] [address] MCHC 31.9(L) 32.3 - 35.7 g/dL ISAAC Comment:Testing performed by : [address] [address] RDW CV 16.1(H) 11.1 - 14.9 % [facility] Comment:Testing performed by : [address] [address] RDW SD 57.4(H) 35.7 - 48.1 fL [facility] Comment:Testing performed by : [address] [address] NRBC abs 0.00 0.00 - 0.01 K/cumm IS[facility] Comment:Testing performed by : [address] [address] ANC Prelim 2.41 1.50 - 6.50 K/cumm ISA[facility] Comment: Interpretive Data The rapid ANC is a preliminary automated count and may vary from the final ANC (Neut Abs) reported in the WBC differential that follows. Current interpretive data was last revised 2025. Testing performed by: [address] [address] Blood 05/24/2025 9:05 AM CDT 05/24/2025 9:10 AM CDT Bianca Hunter MD LAB BLOOD ORDERABLES Final Result [address] [address] * Reticulocyte Count (05/24/2025 9:05 AM CDT) [facility] Retics, absolute 79 20 - 87 K/cumm Comment:Testing performed by : [address] [address] Retics 2.6 0.4 - 2.9 % ISAAC Comment:Testing performed by : [address] [address] Reticulocyte Hgb 30.9 30.5 - 38.0 pg [facility] Comment:Testing performed by : [address] [address] Blood 05/24/2025 9:05 AM CDT 05/24/2025 9:10 AM CDT Nena Cano GOVERNMENT SALES MANAGER LAB BLOOD ORDERABLES Final Result [address] [address] * Ferritin (05/24/2025 9:05 AM CDT) [facility] Ferritin 62 30 - 400 ng/mL Comment:Testing performed by : [address] [address] Blood 05/24/2025 9:05 AM CDT 05/24/2025 9:39 AM CDT Nena Cano GOVERNMENT SALES MANAGER LAB BLOOD ORDERABLES Final Result [address] [address] * (ABNORMAL) Comprehensive metabolic panel (05/24/2025 9:05 AM CDT) [facility] Sodium 139 135 - 145 mmol/L Comment:Testing performed by : [address] [address] Potassium, pl 4.4 3.3 - 4.9 mmol/L [facility] Comment:Testing performed by : [address] [address] Chloride 106 97 - 110 mmol/L ISAAC Comment:Testing performed by : [address], [place]., [address] CO2 22 22 - 32 mmol/L [facility] Comment:Testing performed by : [address] [address] Anion gap 11 2 - 15 mmol/L [facility] Comment:Testing performed by : [address] [address] BUN 23 6 - 25 mg/dL [facility] Comment:Testing performed by : [address] [address] Creatinine 1.70(H) 0.80 - 1.30 mg/dL [facility] Comment:Testing performed by : [address] [address] Glucose 91 70 - 199 mg/dL [facility] Comment: Interpretive Data Fasting glucose >/= 126 [...] was last revised 2022. Testing performed by: [address] [address] Calcium 9.0 8.5 - 10.3 mg/dL [facility] Comment:Testing performed by : [address] [address] Bilirubin, total 0.3 0.1 - 1.2 mg/dL [facility] Comment:Testing performed by : [address] [address] Protein, pl 6.6 6.5 - 8.5 g/dL [facility] Comment:Testing performed by : [address] [address] Albumin 3.7 3.5 - 5.0 g/dL [facility] Comment:Testing performed by : [address] [address] Alk phos 61 40 - 130 Units/L IS[facility] SERNA Comment:Testing performed by : [address] [address] ALT 13 7 - 55 Units/L [facility] Comment:Testing performed by : [address] [address] AST 17 10 - 50 Units/L [facility] Comment:Testing performed by : [address] [address] Blood 05/24/2025 9:05 AM CDT 05/24/2025 9:10 AM CDT Bianca Hunter MD LAB BLOOD ORDERABLES Final Result [facility] [address] [facility] Department [place] [address] * Transfuse RBC (05/11/2025 2:28 PM CDT) Blood Francisco Jones DO BLOOD TRANSFUSION ORDERABLES Final Result * Prepare RBC: 1 Units (05/11/2025 10:01 AM CDT) Units requested 1 Comment:Testing performed by : [address] [address] Units requested Ready ISAAC Comment:Testing performed by : [address] [address] Unit Number [id number] Product code [id number] ISAAC Blood Expiration Date [id number] ISAAC Product Blood Type (for scanning) 6200 IS[facility]AC Product Blood Type APOS ISAAC Dispense Status DISPENSED ISAAC Blood 05/11/2025 10:0 1 AM CDT 05/11/2025 10:01 AM CDT us Nena Cano NP BLOOD BANK PRODUCT ORDERABL ES Final Result [facility] [address] [facility] Department [place] [address] * (ABNORMAL) Differential, auto (05/11/2025 9:00 AM CDT) Neutrophil abs 2.24 1.50 - 6.50 K/cumm Comment:Testing performed by : [address] [address] Imm gran abs 0.02 0.00 - 0.10 K/cumm ISAAC Comment:Testing performed by : [address] [address] Lymphocyte abs 0.58(L) 0.80 - 3.30 K/cumm ISAAC Comment:Testing performed by : [address] [address] Monocyte abs 0.53 0.20 - 0.80 K/cumm ISAAC Comment:Testing performed by : [address] [address] Eosinophil abs 0.27 0.00 - 0.50 K/cumm ISAAC Comment:Testing performed by : [address] [address] Basophil abs 0.03 0.00 - 0.10 K/cumm ISAAC Comment:Testing performed by : [address] [address] Neutrophil pct 61.1 % ISAAC Comment: Interpretive Data Percent cell count reference ranges are not reported, since discordance with absolute values may lead to misinterpretation of CBC data. Current Interpretive Data was last revised on 2018. Testing performed by: [address] [address] Imm gran pct 0.5 % ISAAC Comment: Interpretive Data Percent cell count reference ranges are not reported, since discordance with absolute values may lead to misinterpretation of CBC data. Current Interpretive Data was last revised on 2018. Testing performed by: [address] [address] Lymphocyte pct 15.8 % [facility] Comment: Interpretive Data Percent cell count reference ranges are not reported, since discordance with absolute values may lead to misinterpretation of CBC data. Current Interpretive Data was last revised on 2018. Testing performed by: [address] [address] Monocyte pct 14.4 % [facility] Comment: Interpretive Data Percent cell count reference ranges are not reported, since discordance with absolute values may lead to misinterpretation of CBC data. Current Interpretive Data was last revised on 2018. Testing performed by: [address] [address] Eosinophil pct 7.4 % [facility] Comment: Interpretive Data Percent cell count reference ranges are not reported, since discordance with absolute values may lead to misinterpretation of CBC data. Current Interpretive Data was last revised on 2018. Testing performed by: [address] [address] Basophil pct 0.8 % [facility] Comment: Interpretive Data Percent cell count reference ranges are not reported, since discordance with absolute values may lead to misinterpretation of CBC data. Current Interpretive Data was last revised on 2018. Testing performed by: [address] [address] Blood 05/11/2025 9:00 AM CDT 05/11/2025 9:03 AM CDT us Nena Cano NP LAB BLOOD ORDERABLES Final Result ISAAC [address] [facility] Department [place] [address] * (ABNORMAL) Iron profile w/ IBC (05/11/2025 9:00 AM CDT) [facility] Iron 73 50 - 150 mcg/dL Comment:Testing performed by : [address] [address] TIBC 241(L) 250 - 400 mcg/dL ISAAC Comment:Testing performed by : [address] [address] Transferrin saturation 30 20 - 50 % ISAAC Comment:Testing performed by : [address] [address] Blood 05/11/2025 9:00 AM CDT 05/11/2025 9:35 AM CDT us Nena Cano GOVERNMENT SALES MANAGER LAB BLOOD ORDERABLES Final Result ISAAC [address] [facility] Department [place] [address] * (ABNORMAL) CBC with auto differential (05/11/2025 9:00 AM CDT) WBC 3.67(L) 3.80 - 9.90 K/cumm Comment:Testing performed by : [address] [address] Hgb 8.0(L) 13.0 - 17.5 g/dL ISAAC Comment:Testing performed by : [address] [address] Hct 26.0(L) 38.9 - 50.3 % ISAAC Comment:Testing performed by : [address] [address] Plt 184 150 - 400 K/cumm ISAAC Comment:Testing performed by : [address] [address] MPV 8.6(L) 9.1 - 12.3 fL ISAAC Comment:Testing performed by : [address] [address] RBC 2.53(L) 4.30 - 5.80 M/cumm ISAAC SERNA Comment:Testing performed by : [address] [address] MCV 102.8(H) 81.3 - 96.4 fL ISAAC Comment:Testing performed by : [address] [place]., [address] MCH 31.6 27.1 - 33.3 pg ISAAC Comment:Testing performed by : [address] [address] MCHC 30.8(L) 32.3 - 35.7 g/dL ISAAC SERNA Comment:Testing performed by : [address] [address] RDW CV 17.3(H) 11.1 - 14.9 % ISAAC Comment:Testing performed by : [address] [address] RDW SD 65.1(H) 35.7 - 48.1 fL ISAAC Comment:Testing performed by : [address] [address] NRBC abs 0.00 0.00 - 0.01 K/cumm ISAAC Comment:Testing performed by : [address] [address] ANC Prelim 2.24 1.50 - 6.50 K/cumm ISAAC Comment: Interpretive Data The rapid ANC is a preliminary automated count and may vary from the final ANC (Neut Abs) reported in the WBC differential that follows. Current interpretive data was last revised 2025. Testing performed by: [address] [address] Blood 05/11/2025 9:00 AM CDT 05/11/2025 9:03 AM CDT Nena Cano GOVERNMENT SALES MANAGER LAB BLOOD ORDERABLES Final Result [facility] [address] [facility] Department [place] [address] * ABO/Rh (05/11/2025 9:00 AM CDT) ABO/Rh A Positive Comment:Testing performed by : [address] [address] Blood 05/11/2025 9:00 AM CDT 05/11/2025 9:33 AM CDT Narrative [facility] 05/11/2025 9:59 AM CDT Has the patient had Daratumumab or Isatuximab in the past 6 months?->Unknown Nena Cano GOVERNMENT SALES MANAGER LAB BLOOD BANK TEST ORDERAB LES Final Result Performing Organization Address [facility] de Phone Number [place] [phone] [facility] [place] [address] * (ABNORMAL) Reticulocyte Count (05/11/2025 9:00 AM CDT) Retics, absolute 105(H) 20 - 87 K/cumm Comment:Testing performed by : [address] [address] Retics 4.1(H) 0.4 - 2.9 % ISAAC Comment:Testing performed by : [address] [address] Reticulocyte Hgb 34.4 30.5 - 38.0 pg ISAAC Comment:Testing performed by : [address] [address] Blood 05/11/2025 9:00 AM CDT 05/11/2025 9:03 AM CDT Nena Cano GOVERNMENT SALES MANAGER LAB BLOOD ORDERABLES Final Result Performing Organization Address [facility] de Phone Number [place] [phone] [facility] [place] [address] * Crossmatch (05/11/2025 9:00 AM CDT) Crossmatch Compatible [facility] Unit number for crossmatch [id number] [facility] Blood 05/11/2025 9:00 AM CDT 05/11/2025 9:33 AM CDT Jas Alcala MD LAB BLOOD BANK TEST ORDERABL ES Final Result Performing Organization Address [facility] Co de Phone Number [address] [address] * Antibody screen (05/11/2025 9:00 AM CDT) Pathologist [facility], indirect, Gel Interpretation Negative ABSC Comment:Testing performed by : [address] [address] Blood 05/11/2025 9:00 AM CDT 05/11/2025 9:33 AM CDT Narrative IS[facility] 05/11/2025 10:12 AM CDT Has the patient had Daratumumab or Isatuximab in the past 6 months?->Unknown Nena Cano NP LAB BLOOD BANK TEST ORDERAB LES Final Result Performing Organization Address [facility] de Phone Number [address] [address] * Ferritin (05/11/2025 9:00 AM CDT) Pathologist [facility] Ferritin 71 30 - 400 ng/mL Comment:Testing performed by : [address] [address] Blood 05/11/2025 9:00 AM CDT 05/11/2025 9:35 AM CDT Nena Cano NP LAB BLOOD ORDERABLES Final Result Performing Organization Address [facility] de Phone Number [address] [address] * Surgical pathology (05/10/2025 10:54 AM CDT) Tissue (Esophageal biopsy) 05/10/2025 10:54 AM CDT Tissue specimen (specimen) (Esophageal biopsy) 05/10/2025 10:56 AM CDT Narrative PATHOLOGY [facility] - 05/17/2025 3:59 PM CDT [facility] Department of Pathology [address] [place] [address] Note to Patients: This report may contain [...] : 1950 (Age: 75) Gender: M Address: [address] [place] [address] Hospital #: [id number] Service: Gastro Location: Patient Type: [facility] OUTPATIENT Taken: 05/10/2025 Received: 05/10/2025 Accessioned: [...] cm. Entirely submitted. Labeled B1. Jar 0. jjmhb/05/10/2025 13:56 SHAD Gonzalez, PA (ASCP) Microscopic slide review and interpretation for this case was performed at [facility], Department of Surgical Pathology, [address] [facility] [place], [place] [id number], [place] [address] CLIA # [id number] us Lucio Rosas MD LAB PATHOLOGY ORDERABLES Final R esult PATHOLOGY [facility] * EGD (05/10/2025 10:45 AM CDT) Anatomical Region Laterality Modality Other Narrative Procedure Note Lucio Rosas MD - 05/10/2025 10:45 AM CDT [facility] GI ENDOSCOPY Patient Name: Brennen Olson [...] On: 05/10/2025 10:45 AM Recognized by the [place] [employer] for promoting quality in endoscopy Lucio Rosas MD ENDOSCOPY PROCEDURES Final Resul t * (ABNORMAL) POC Blood Gas and Chemistries, Venous - (05/10/2025 10:13 AM CDT) pH,kwame POC 7.35 7.32 - 7.43 pCO2, kwame POC 40 40 - 50 mmHg [facility] pO2,kwame POC 32 mmHg [facility] Comment: Interpretive Data No reference range established. Current interpretive data was last revised 2020. HCO3, kwame (Calc) POC 22 20 - 30 mmol/L [facility] Base excess, kwame POC -3 mmol/L [facility] Comment: Interpretive Data No reference range established. Current interpretive data was last revised 2020. Hemoglobin, kwame POC 9.2(L) 13.0 - 17.5 g/dL [facility] Hematocrit, kwame POC 27.0(L) 38.9 - 50.3 % [facility] Sodium, kwame POC 141 135 - 145 mmol/L [facility] Potassium, kwame POC 4.4 3.3 - 4.9 mmol/L [facility] Comment: Interpretive Data This method is not able to assess for hemolysis, which may falsely increase potassium concentrations. If further testing is needed to evaluate this result, consider in-laboratory plasma potassium. Current Interpretive Data was last revised on 2022. Glucose, kwame POC 86 70 - 199 mg/dL [facility] Ionized Calcium, kwame POC 5.10 4.50 - 5.10 mg/dL [facility] Blood 05/10/2025 10:1 3 AM CDT 05/10/2025 10:13 AM CDT Lucio Rosas MD LAB POCT ORDERABLES - DEVICE Fin al Result Performing Organization Address City/[facility] Co de Phone Number [address] [place] [address] * Transfuse RBC (04/26/2025 2:25 PM CDT) Blood Bianca Hunter MD BLOOD TRANSFUSION OR DERABLES Final Result * Prepare RBC: 1 Units (04/26/2025 9:45 AM CDT) Units requested 1 Comment:Testing performed by : [address] [address] Units requested Ready [facility] Comment:Testing performed by : [address] [address] Unit Number [id number] Product code [id number] [facility] Blood Expiration Date [id number] [facility] Product Blood Type (for scanning) 6200 [facility] Product Blood Type APOS [facility] Dispense Status DISPENSED [facility] Blood 04/26/2025 9:45 AM CDT 04/26/2025 9:45 AM CDT Bianca Hunter MD BLOOD BANK PRODUCT O RDERABLES Final Result Performing Organization Address [facility] Co de Phone Number DAYANA[address] [place] [address] * (ABNORMAL) eGFR (04/26/2025 9:01 AM CDT) [...] was last reviewed 2021. Testing performed by: [address] [address] Blood 04/26/2025 9:01 AM CDT 04/26/2025 9:02 AM CDT us Bianca Hunter MD LAB BLOOD ORDERABLES Final Result ISA[facility] [address] [facility] Department of Laboratories [place], [place] [id number] * (ABNORMAL) Differential, auto (04/26/2025 9:01 AM CDT) Neutrophil abs 2.29 1.50 - 6.50 K/cumm Comment:Testing performed by : [address] [address] Imm gran abs 0.02 0.00 - 0.10 K/cumm ISAAC SERNA Comment:Testing performed by : [address] [address] Lymphocyte abs 0.68(L) 0.80 - 3.30 K/cumm ISAAC Comment:Testing performed by : [address] [address] Monocyte abs 0.57 0.20 - 0.80 K/cumm [facility] Comment:Testing performed by : [address] [address] Eosinophil abs 0.26 0.00 - 0.50 K/cumm ISAAC Comment:Testing performed by : [address], [place]., [address] Basophil abs 0.03 0.00 - 0.10 K/cumm [facility] Comment:Testing performed by : [address] [address] Neutrophil pct 59.4 % [facility] Comment: Interpretive Data Percent cell count reference ranges are not reported, since discordance with absolute values may lead to misinterpretation of CBC data. Current Interpretive Data was last revised on 2018. Testing performed by: [address] [address] Imm gran pct 0.5 % [facility] Comment: Interpretive Data Percent cell count reference ranges are not reported, since discordance with absolute values may lead to misinterpretation of CBC data. Current Interpretive Data was last revised on 2018. Testing performed by: [address] [address] Lymphocyte pct 17.7 % [facility] Comment: Interpretive Data Percent cell count reference ranges are not reported, since discordance with absolute values may lead to misinterpretation of CBC data. Current Interpretive Data was last revised on 2018. Testing performed by: [address] [address] Monocyte pct 14.8 % [facility] Comment: Interpretive Data Percent cell count reference ranges are not reported, since discordance with absolute values may lead to misinterpretation of CBC data. Current Interpretive Data was last revised on 2018. Testing performed by: [address] [address] Eosinophil pct 6.8 % [facility] Comment: Interpretive Data Percent cell count reference ranges are not reported, since discordance with absolute values may lead to misinterpretation of CBC data. Current Interpretive Data was last revised on 2018. Testing performed by: [address] [address] Basophil pct 0.8 % [facility] Comment: Interpretive Data Percent cell count reference ranges are not reported, since discordance with absolute values may lead to misinterpretation of CBC data. Current Interpretive Data was last revised on 2018. Testing performed by: [address] [address] Blood 04/26/2025 9:01 AM CDT 04/26/2025 9:02 AM CDT Nena Cano GOVERNMENT SALES MANAGER LAB BLOOD ORDERABLES Final Result Performing Organization Address [facility] Co de Phone Number [address] [place] [address] * (ABNORMAL) Iron profile w/ IBC (04/26/2025 9:01 AM CDT) Iron 75 50 - 150 mcg/dL Comment:Testing performed by : [address] [address] TIBC 231(L) 250 - 400 mcg/dL [facility] Comment:Testing performed by : [address] [address] Transferrin saturation 32 20 - 50 % [facility] Comment:Testing performed by : [address] [address] Blood 04/26/2025 9:01 AM CDT 04/26/2025 9:51 AM CDT Nena Cano GOVERNMENT SALES MANAGER LAB BLOOD ORDERABLES Final Result Performing Organization Address [facility] Co de Phone Number [facility] [address] [place] [address] [place] [address] * (ABNORMAL) CBC with auto differential (04/26/2025 9:01 AM CDT) WBC 3.85 3.80 - 9.90 K/cumm Comment:Testing performed by : [address] [address] Hgb 8.1(L) 13.0 - 17.5 g/dL [facility] Comment:Testing performed by : [address], [address] Hct 26.2(L) 38.9 - 50.3 % [facility] Comment:Testing performed by : [address] [address] Plt 199 150 - 400 K/cumm ISAAC Comment:Testing performed by : [address] [address] MPV 8.2(L) 9.1 - 12.3 fL [facility] Comment:Testing performed by : [address], [address] RBC 2.64(L) 4.30 - 5.80 M/cumm ISAAC Comment:Testing performed by : [address] [address] MCV 99.2(H) 81.3 - 96.4 fL [facility] Comment:Testing performed by : [address] [address] MCH 30.7 27.1 - 33.3 pg [facility] Comment:Testing performed by : [address] [address] MCHC 30.9(L) 32.3 - 35.7 g/dL [facility] Comment:Testing performed by : [address] [address] RDW CV 19.6(H) 11.1 - 14.9 % [facility] Comment:Testing performed by : [address], [address] RDW SD 70.4(H) 35.7 - 48.1 fL [facility] Comment:Testing performed by : [address] [address] NRBC abs 0.00 0.00 - 0.01 K/cumm [facility]AAC Comment:Testing performed by : [address] [address] ANC Prelim 2.29 1.50 - 6.50 K/cumm [facility] Comment: Interpretive Data The rapid ANC is a preliminary automated count and may vary from the final ANC (Neut Abs) reported in the WBC differential that follows. Current interpretive data was last revised 2025. Testing performed by: [address] [address] Blood 04/26/2025 9:01 AM CDT 04/26/2025 9:02 AM CDT Nena Cano LAB BLOOD ORDERABLES Final Result Performing Organization Address [facility] de Phone Number [address] [address] * ABO/Rh (04/26/2025 9:01 AM CDT) Pathologist [facility] ABO/Rh A Positive Comment:Testing performed by : [address] [address] Blood 04/26/2025 9:01 AM CDT 04/26/2025 9:44 AM CDT Narrative [facility] - 04/26/2025 10:36 AM CDT Has the patient had Daratumumab or Isatuximab in the past 6 months?->Unknown Nena Cano LAB BLOOD BANK TEST ORDERAB LES Final Result Performing Organization Address [facility] de Phone Number [address] [address] * (ABNORMAL) Reticulocyte Count (04/26/2025 9:01 AM CDT) Retics, absolute 126(H) 20 - 87 K/cumm Comment:Testing performed by : [address] [address] Retics 4.8(H) 0.4 - 2.9 % [facility] Comment:Testing performed by : [address] [address] Reticulocyte Hgb 32.6 30.5 - 38.0 pg [facility]AC Comment:Testing performed by : [facility], [address] [place] [address]., [address] Blood 04/26/2025 9:01 AM CDT 04/26/2025 9:02 AM CDT Nena Cano GOVERNMENT SALES MANAGER LAB BLOOD ORDERABLES Final Result Performing Organization Address City/[facility]/ZIP Co de Phone Number [address] [place] [address] [place] [address] * Crossmatch (04/26/2025 9:01 AM CDT) [facility] Crossmatch Compatible [facility] Unit number for crossmatch [id number] [facility] Blood 04/26/2025 9:01 AM CDT 04/26/2025 9:44 AM CDT Bianca Hunter MD LAB BLOOD BANK TEST ORDERABLES Final Result Performing Organization Address [facility] Co de Phone Number [address] [address] * Antibody screen (04/26/2025 9:01 AM CDT) [facility], indirect, Gel Interpretation Negative ABSC Comment:Testing performed by : [facility], [address] [place] [address]., [address] Blood 04/26/2025 9:01 AM CDT 04/26/2025 9:44 AM CDT Narrative [facility] - 04/26/2025 10:36 AM CDT Has the patient had Daratumumab or Isatuximab in the past 6 months?->Unknown Nena Cano NP LAB BLOOD BANK TEST ORDERAB LES Final Result Performing Organization Address City/[facility]/ZIP Co de Phone Number [address] [address] * Ferritin (04/26/2025 9:01 AM CDT) Ferritin 47 30 - 400 ng/mL Comment:Testing performed by : [address] [address] Blood 04/26/2025 9:01 AM CDT 04/26/2025 9:51 AM CDT Nena Cano GOVERNMENT SALES MANAGER LAB BLOOD ORDERABLES Final Result [facility] [address] [facility] Department [place] [address] * (ABNORMAL) Comprehensive metabolic panel (04/26/2025 9:01 AM CDT) Pathologist [facility] Sodium 138 135 - 145 mmol/L Comment:Testing performed by : [address] [address] Potassium, pl 4.3 3.3 - 4.9 mmol/L [facility] Comment:Testing performed by : [address] [address] Chloride 107 97 - 110 mmol/L [facility] Comment:Testing performed by : [address] [address] CO2 22 22 - 32 mmol/L [facility] Comment:Testing performed by : [address] [address] Anion gap 9 2 - 15 mmol/L [facility] Comment:Testing performed by : [address] [address] BUN 17 6 - 25 mg/dL [facility] Comment:Testing performed by : [address] [address] Creatinine 1.60(H) 0.80 - 1.30 mg/dL [facility] Comment:Testing performed by : [address] [address] Glucose 92 70 - 199 mg/dL [facility] [...] was last revised 2022. Testing performed by: [address] [address] Calcium 9.2 8.5 - 10.3 mg/dL [facility] Comment:Testing performed by : [address] [address] Bilirubin, total 0.3 0.1 - 1.2 mg/dL [facility] Comment:Testing performed by : [address] [address] Protein, pl 6.3(L) 6.5 - 8.5 g/dL [facility] Comment:Testing performed by : [address] [address] Albumin 3.6 3.5 - 5.0 g/dL [facility] Comment:Testing performed by : [address] [address] Alk phos 58 40 - 130 Units/L [facility] Comment:Testing performed by : [address] [address] ALT 10 7 - 55 Units/L [facility] Comment:Testing performed by : [address] [address] AST 14 10 - 50 Units/L [facility] Comment:Testing performed by : [address] [address] Blood 04/26/2025 9:01 AM CDT 04/26/2025 9:02 AM CDT Bianca Hunter MD LAB BLOOD ORDERABLES Final Result [facility] [address] [facility] Department [place] [address] * Transfuse RBC (04/12/2025 2:07 PM CDT) Blood us Eli Toscano NP BLOOD TRANSFUSION OR DERABLES Final Result * Prepare RBC: 1 Units (04/12/2025 10:48 AM CDT) Units requested 1 Comment:Testing performed by : [address], [address] Units requested Ready [facility] Comment:Testing performed by : [address], [address] Unit Number [id number] Product code [id number] [facility] Blood Expiration Date [id number] [facility] Product Blood Type (for scanning) 6200 [facility] Product Blood Type APOS [facility] Dispense Status DISPENSED [facility] Blood 04/12/2025 10:4 8 AM CDT 04/12/2025 10:48 AM CDT us Bianca Hunter MD BLOOD BANK PRODUCT O RDERABLES Final Result [facility] [address] [facility] Department of Laboratories [place], [place] [id number] * Differential, auto (04/12/2025 9:09 AM CDT) Neutrophil abs 2.16 1.50 - 6.50 K/cumm Comment:Testing performed by : [address] [address] Imm gran abs 0.02 0.00 - 0.10 K/cumm [facility] Comment:Testing performed by : [address] [address] Lymphocyte abs 0.81 0.80 - 3.30 K/cumm [facility] Comment:Testing performed by : [address] [address] Monocyte abs 0.51 0.20 - 0.80 K/cumm [facility] Comment:Testing performed by : [address] [address] Eosinophil abs 0.19 0.00 - 0.50 K/cumm [facility] Comment:Testing performed by : [address] [address] Basophil abs 0.04 0.00 - 0.10 K/cumm [facility] Comment:Testing performed by : [address] [address] Neutrophil pct 57.9 % [facility] Comment: Interpretive Data Percent cell count reference ranges are not reported, since discordance with absolute values may lead to misinterpretation of CBC data. Current Interpretive Data was last revised on 2018. Testing performed by: [address] [address] Imm gran pct 0.5 % [facility] Comment: Interpretive Data Percent cell count reference ranges are not reported, since discordance with absolute values may lead to misinterpretation of CBC data. Current Interpretive Data was last revised on 2018. Testing performed by: [address] [address] Lymphocyte pct 21.7 % [facility] Comment: Interpretive Data Percent cell count reference ranges are not reported, since discordance with absolute values may lead to misinterpretation of CBC data. Current Interpretive Data was last revised on 2018. Testing performed by: [address] [address] Monocyte pct 13.7 % [facility] Comment: Interpretive Data Percent cell count reference ranges are not reported, since discordance with absolute values may lead to misinterpretation of CBC data. Current Interpretive Data was last revised on 2018. Testing performed by: [address] [address] Eosinophil pct 5.1 % [facility] Comment: Interpretive Data Percent cell count reference ranges are not reported, since discordance with absolute values may lead to misinterpretation of CBC data. Current Interpretive Data was last revised on 2018. Testing performed by: [address] [address] Basophil pct 1.1 % [facility] Comment: Interpretive Data Percent cell count reference ranges are not reported, since discordance with absolute values may lead to misinterpretation of CBC data. Current Interpretive Data was last revised on 2018. Testing performed by: [address] [address] Blood 04/12/2025 9:09 AM CDT 04/12/2025 9:10 AM CDT Nena Cano GOVERNMENT SALES MANAGER LAB BLOOD ORDERABLES Final Result Performing Organization Address City/[facility] Co de Phone Number ISAAC [address] [facility] [place] [address] * (ABNORMAL) Iron profile w/ IBC (04/12/2025 9:09 AM CDT) Pathologist [facility] Iron 104 50 - 150 mcg/dL Comment:Testing performed by : [address] [address] TIBC 226(L) 250 - 400 mcg/dL ISAAC Comment:Testing performed by : [address] [address] Transferrin saturation 46 20 - 50 % ISAAC Comment:Testing performed by : [address] [address] Blood 04/12/2025 9:09 AM CDT 04/12/2025 9:45 AM CDT Nena Cano GOVERNMENT SALES MANAGER LAB BLOOD ORDERABLES Final Result Performing Organization Address [facility] Co de Phone Number ISAAC [address] [facility] [place] [address] * (ABNORMAL) CBC with auto differential (04/12/2025 9:09 AM CDT) WBC 3.73(L) 3.80 - 9.90 K/cumm Comment:Testing performed by : [address] [address] Hgb 7.9(L) 13.0 - 17.5 g/dL ISAAC Comment:Testing performed by : [address] [address] Hct 25.0(L) 38.9 - 50.3 % ISAAC Comment:Testing performed by : [address] [address] Plt 215 150 - 400 K/cumm ISAAC Comment:Testing performed by : [address] [address] MPV 8.5(L) 9.1 - 12.3 fL ISAAC Comment:Testing performed by : [address] [address] RBC 2.63(L) 4.30 - 5.80 M/cumm ISAAC Comment:Testing performed by : [address] [address] MCV 95.1 81.3 - 96.4 fL ISAAC Comment:Testing performed by : [address] [address] MCH 30.0 27.1 - 33.3 pg ISAAC Comment:Testing performed by : [address] [address] MCHC 31.6(L) 32.3 - 35.7 g/dL ISAAC Comment:Testing performed by : [address] [address] RDW CV 20.8(H) 11.1 - 14.9 % ISAAC Comment:Testing performed by : [address] [address] RDW SD 71.6(H) 35.7 - 48.1 fL ISAAC Comment:Testing performed by : [address] [address] NRBC abs 0.00 0.00 - 0.01 K/cumm ISAAC Comment:Testing performed by : [address] [address] ANC Prelim 2.16 1.50 - 6.50 K/cumm ISAAC Comment: Interpretive Data The rapid ANC is a preliminary automated count and may vary from the final ANC (Neut Abs) reported in the WBC differential that follows. Current interpretive data was last revised 2025. Testing performed by: [address] [address] Blood 04/12/2025 9:09 AM CDT 04/12/2025 9:10 AM CDT Nena Cano GOVERNMENT SALES MANAGER LAB BLOOD ORDERABLES Final Result Performing Organization Address [facility] Co de Phone Number [address] [address] * ABO/Rh (04/12/2025 9:09 AM CDT) ABO/Rh A Positive Comment:Testing performed by : [address] [address] Blood 04/12/2025 9:09 AM CDT 04/12/2025 9:45 AM CDT Narrative ISAAC - 04/12/2025 10:25 AM CDT Has the patient had Daratumumab or Isatuximab in the past 6 months?->Unknown Nena Cano GOVERNMENT SALES MANAGER LAB BLOOD BANK TEST ORDERAB LES Final Result Performing Organization Address [facility] Co de Phone Number [address] [address] * (ABNORMAL) Reticulocyte Count (04/12/2025 9:09 AM CDT) Retics, absolute 108(H) 20 - 87 K/cumm Comment:Testing performed by : [address] [address] Retics 4.1(H) 0.4 - 2.9 % ISAAC SERNA Comment:Testing performed by : [address] [address] Reticulocyte Hgb 34.1 30.5 - 38.0 pg ISAAC SERNA Comment:Testing performed by : [address] [address] Blood 04/12/2025 9:09 AM CDT 04/12/2025 9:10 AM CDT Nena Cano GOVERNMENT SALES MANAGER LAB BLOOD ORDERABLES Final Result [address] [address] * Crossmatch (04/12/2025 9:09 AM CDT) Pathologist [facility] Crossmatch Compatible [facility] Unit number for crossmatch [id number] [facility] Blood 04/12/2025 9:09 AM CDT 04/12/2025 9:48 AM CDT Nena Mamta Cano LAB BLOOD BANK TEST ORDERAB LES Final Result Performing Organization Address [facility] Co de Phone Number [address] [address] * Antibody screen (04/12/2025 9:09 AM CDT) [facility] Divina, indirect, Gel Interpretation Negative ABSC Comment:Testing performed by : [address] [address] Blood 04/12/2025 9:09 AM CDT 04/12/2025 9:45 AM CDT Narrative [facility] - 04/12/2025 10:43 AM CDT Has the patient had Daratumumab or Isatuximab in the past 6 months?->Unknown Nena Cano GOVERNMENT SALES MANAGER LAB BLOOD BANK TEST ORDERAB LES Final Result Performing Organization Address City/[facility] Co de Phone Number [address] [address] * Ferritin (04/12/2025 9:09 AM CDT) [facility] Ferritin 58 30 - 400 ng/mL Comment:Testing performed by : [address] [address] Blood 04/12/2025 9:09 AM CDT 04/12/2025 9:45 AM CDT us Nena Cano NP LAB BLOOD ORDERABLES Final Result ISAAC [address] [facility] Department [place] [address] * PET/CT FDG Skull to Thigh (04/10/2025 [...] liver and <= 2x SUV max liver Jpabfmmu-mv-typqsq: >2x SUV max liver and <= 3x [...] Naomi Pimentel M.D. FT: FT Report ID: [id number] Reading Location: [id number] Procedure Note Naomi Martini MD - 04/10/2025 [...] liver and <= 2x SUV max liver Ffvkygjl-sw-nkquxy: >2x SUV max liver and <= 3x [...] Naomi Pimentel M.D. FT: FT Report ID: [id number] Reading Location: [place] [address] Bianca Hunter MD IMG PET PROCEDURES F inal Result * POCT glucose (04/10/2025 8:22 AM CDT) [facility] Glucose, POC 88 70 - 199 mg/dL Comment:Testing performed by : [address] [address] Blood 04/10/2025 8:22 AM CDT 04/10/2025 8:22 AM CDT Bianca Hunter MD LAB POCT ORDERABLES - DEVICE Final Result ISAAC [address] [facility] Department [place] [address] * Differential, auto (04/04/2025 10:10 AM CDT) [facility] Neutrophil abs 2.03 1.50 - 6.50 K/cumm Comment:Testing performed by : [address] [address] Imm gran abs 0.02 0.00 - 0.10 K/cumm ISAAC SERNA Comment:Testing performed by : [address] [address] Lymphocyte abs 0.96 0.80 - 3.30 K/cumm ISAAC Comment:Testing performed by : [address], [place]., [address] Monocyte abs 0.51 0.20 - 0.80 K/cumm C[facility] Comment:Testing performed by : [address], [place]., [address] Eosinophil abs 0.15 0.00 - 0.50 K/cumm [facility] Comment:Testing performed by : [address], [place]., [address] Basophil abs 0.03 0.00 - 0.10 K/cumm ISAAC Comment:Testing performed by : [address] [address] Neutrophil pct 54.9 % [facility] Comment: Interpretive Data Percent cell count reference ranges are not reported, since discordance with absolute values may lead to misinterpretation of CBC data. Current Interpretive Data was last revised on 2018. Testing performed by: [address] [address] Imm gran pct 0.5 % [facility] Comment: Interpretive Data Percent cell count reference ranges are not reported, since discordance with absolute values may lead to misinterpretation of CBC data. Current Interpretive Data was last revised on 2018. Testing performed by: [address] [address] Lymphocyte pct 25.9 % [facility] Comment: Interpretive Data Percent cell count reference ranges are not reported, since discordance with absolute values may lead to misinterpretation of CBC data. Current Interpretive Data was last revised on 2018. Testing performed by: [address] [address] Monocyte pct 13.8 % [facility] Comment: Interpretive Data Percent cell count reference ranges are not reported, since discordance with absolute values may lead to misinterpretation of CBC data. Current Interpretive Data was last revised on 2018. Testing performed by: [address] [address] Eosinophil pct 4.1 % [facility] Comment: Interpretive Data Percent cell count reference ranges are not reported, since discordance with absolute values may lead to misinterpretation of CBC data. Current Interpretive Data was last revised on 2018. Testing performed by: [address] [address] Basophil pct 0.8 % [facility] Comment: Interpretive Data Percent cell count reference ranges are not reported, since discordance with absolute values may lead to misinterpretation of CBC data. Current Interpretive Data was last revised on 2018. Testing performed by: [address] [address] Blood 04/04/2025 10:1 0 AM CDT 04/04/2025 10:10 AM CDT Nena Cano LAB BLOOD ORDERABLES Final Result Performing Organization Address [facility] de Phone Number [address] [place] [address] * (ABNORMAL) Iron profile w/ IBC (04/04/2025 10:10 AM CDT) Iron 138 50 - 150 mcg/dL Comment:Testing performed by : [address] [address] TIBC 228(L) 250 - 400 mcg/dL ISAAC Comment:Testing performed by : [address] [address] Transferrin saturation 61(H) 20 - 50 % ISAAC Comment:Testing performed by : [address] [address] Blood 04/04/2025 10:1 0 AM CDT 04/04/2025 11:44 AM CDT Nena Cano GOVERNMENT SALES MANAGER LAB BLOOD ORDERABLES Final Result Performing Organization Address [facility] Co de Phone Number [facility] [address] [place] [address] [place] [address] * (ABNORMAL) CBC with auto differential (04/04/2025 10:10 AM CDT) [facility] WBC 3.70(L) 3.80 - 9.90 K/cumm Comment:Testing performed by : [address], [address] Hgb 8.2(L) 13.0 - 17.5 g/dL ISAAC Comment:Testing performed by : [address], [address] Hct 26.2(L) 38.9 - 50.3 % ISAAC Comment:Testing performed by : [address], [address] Plt 205 150 - 400 K/cumm ISAAC Comment:Testing performed by : [address], [address] MPV 9.1 9.1 - 12.3 fL ISAAC Comment:Testing performed by : [address], [address] RBC 2.79(L) 4.30 - 5.80 M/cumm ISAAC Comment:Testing performed by : [address], [address] MCV 93.9 81.3 - 96.4 fL ISAAC Comment:Testing performed by : [address], [address] MCH 29.4 27.1 - 33.3 pg ISAAC Comment:Testing performed by : [address], [address] MCHC 31.3(L) 32.3 - 35.7 g/dL ISAAC Comment:Testing performed by : [address], [address] RDW CV 19.9(H) 11.1 - 14.9 % [facility] Comment:Testing performed by : [address], [address] RDW SD 68.3(H) 35.7 - 48.1 fL [facility] Comment:Testing performed by : [address], [address] NRBC abs 0.00 0.00 - 0.01 K/cumm ISAAC Comment:Testing performed by : [address] [address] ANC Prelim 2.03 1.50 - 6.50 K/cumm ISA[facility] Comment: Interpretive Data The rapid ANC is a preliminary automated count and may vary from the final ANC (Neut Abs) reported in the WBC differential that follows. Current interpretive data was last revised 2025. Testing performed by: [address] [address] Blood 04/04/2025 10:1 0 AM CDT 04/04/2025 10:10 AM CDT Nena Cano LAB BLOOD ORDERABLES Final Result Performing Organization Address [facility] de Phone Number [address] [place] [address] * Reticulocyte Count (04/04/2025 10:10 AM CDT) Retics, absolute 78 20 - 87 K/cumm Comment:Testing performed by : [address] [address] Retics 2.8 0.4 - 2.9 % ISAAC Comment:Testing performed by : [address] [address] Reticulocyte Hgb 30.5 30.5 - 38.0 pg ISAAC Comment:Testing performed by : [address] [address] Blood 04/04/2025 10:1 0 AM CDT 04/04/2025 10:10 AM CDT Nena Caon LAB BLOOD ORDERABLES Final Result Performing Organization Address [facility] de Phone Number [address] [place] [address] * Ferritin (04/04/2025 10:10 AM CDT) Ferritin 65 30 - 400 ng/mL Comment:Testing performed by : [facility], [address] [place] [address], [place]., [address] Blood 04/04/2025 10:1 0 AM CDT 04/04/2025 11:44 AM CDT us Nena Cano GOVERNMENT SALES MANAGER LAB BLOOD ORDERABLES Final Result ISAAC [address] [facility] Department [place] [address] * CT Chest Abdomen Pelvis W Contrast (12/13/2024 7:09 AM BALLET SOLOIST) Anatomical Region Laterality Modality Body N/A Computed Tomogra phy 12/13/2024 7:26 AM BALLET SOLOIST Impressions 12/13/2024 7:26 AM BALLET SOLOIST 1. Nondistended esophagus. No discrete esophageal lesion identified to correspond to known malignancy. 2. No evidence of metastatic disease in the chest, abdomen, and pelvis. Electronically signed by: Courtney Johnson M.D. Narrative 12/13/2024 7:26 AM BALLET SOLOIST EXAMINATION: Computed tomography of the chest, abdomen [...] Res ult * Colonoscopy (11/17/2024 9:34 AM BALLET SOLOIST) Anatomical Region Laterality Modality Other Narrative Procedure Note Lucio Rosas MD - 11/17/2024 9:34 AM CST [facility] GI ENDOSCOPY Patient Name: Brennen Olson Procedure Date: 11/17/2024 9:34 AM Date of : 1950 Admit Type: Outpatient Age: 74 Gender: Male Attending MD: Lucio Rosas M.D. Room: [facility] ENDOSCOPY ROOM 03 Note Status: Finalized Procedure: Colonoscopy Indications: Rectal bleeding Referring MD: Providers: Lucio Rosas, M.D. Medicines: Monitored Anesthesia Care Complications: No [...] The scope was passed under direct vision.The [id number]-[id number] colonoscope was introduced through theanus and advanced to the cecum, identified byappendiceal orifice and ileocecal valve. The scope was passed under direct vision. The [id number] colonoscope was introduced through the and advanced [...] On: 11/17/2024 9:34 AM Recognized by the [place] [employer] for promoting quality in endoscopy Lucio Rosas MD ENDOSCOPY PROCEDURES Final Resul t from Last 3 Months or Most Recently Relevant to Health Maintenance Insurance [facility] MEDICARE ADVANTAGE MEDICARE U[employer] MEDICARE ADVANTAGE Advance Directives For more information, please contact: [phone] * Full Code (Latest Code Status on File) Date Activated Date Inactivated Comments 06/28/2025 12:51 PM 06/28/2025 6:18 PM * Full Code Date Activated Date Inactivated Comments 06/19/2025 8:50 AM 06/19/2025 3:56 PM * Full Code Date Activated Date Inactivated Comments 01/11/2025 10:34 AM 01/12/2025 5:08 AM * Full Code Date Activated Date Inactivated Comments 12/13/2024 8:18 AM 12/13/2024 5:22 PM Care Teams Building Certifier Relationship Specialty Start Date End Date Jas Alcala MD [address] [place] [address] PCP - General Internal Medicine 01/04/25 Lucio Rosas MD [address] [address] Consulting Physician Gastroenterology 11/28/24 Hero Pinedo MD [address] [place] [address] Radiation Oncologist Radiation Oncology 12/28/24 Lon Tomas MD [address] [place] [address] Consulting Physician Urology 01/04/25 Jaycee Teresa MD [address] [place] [address] Consulting Physician Cardiology 01/09/25 Francisco Jones DO [address] [place] [address] Medical Oncologist/Hematologis t Hematology and Oncology 06/03/25
[2025-07-04 12:07] LABS: Anion Gap 8 mmol/L (4-12); Blood Urea Nitrogen 18 mg/dL (9-20); Calcium 8.9 mg/dL (8.4-10.2); Carbon Dioxide 18 mmol/L (22-30); Chloride 110 mmol/L (98-107); Estimated Glomerular Filt Rate 44; Glucose 103 mg/dL (65-110); Potassium 4.1 mmol/L (3.4-5.0); Sodium 136 mmol/L (137-145)
[2025-07-04 12:12] LABS: INR 1.3; Prothrombin Time 16.3 Seconds (11.1-14.7)
== END 2025-07-04 11:16 | disposition home or self-care (01) ==
LOC: ANHLAB 11:17
PROVIDERS: PCP Internal Medicine; Visit Provider Internal Medicine
DX: Z79.01 Long term (current) use of anticoagulants (principal)
CPT/HCPCS: 36415; 80048; 85025; 85610

== ENCOUNTER 2025-07-12 09:53 | Outpatient (CLI) | payer MEDICARE, SELFPAY ==
[2025-07-12 10:13] LABS: Hematocrit 33.4 % (42.0-52.0); Hemoglobin 10.1 g/dL (14.0-18.0); Immature Granulocyte Percent A 0.5 % (0-0.5); Lymphocytes Absolute Auto 0.67 K/mm3 (0.9-3.2); Mean Corpuscular HGB Conc 30.2 g/dl (32-36); Mean Corpuscular Hemoglobin 30.2 pg (26-34); Mean Corpuscular Volume 100.0 fl (80-100); Nucleated Red Blood Cells Absolute Auto 0.000 K/mm3 (0.0-0.012); Nucleated Red Blood Cells Perc 0.0 % (0.0-0.2); Platelet Count Result 169 k/mm3 (150-375); Red Blood Count 3.34 M/mm3 (4.6-6.20); White Blood Count 3.7 K/mm3 (4.5-10.0)
[2025-07-12 10:34] LABS: INR 1.6; Prothrombin Time 18.8 Seconds (11.1-14.7)
[2025-07-12 10:37] LABS: Alanine Aminotransferase 11 U/L (6-50); Albumin Level 3.6 g/dL (3.5-5.1); Alkaline Phosphatase 61 U/L (38-126); Anion Gap 6 mmol/L (4-12); Aspartate Amino Transferase 18 U/L (17-59); Bilirubin,Total 0.4 mg/dL (0.2-1.3); Blood Urea Nitrogen 14 mg/dL (9-20); Calcium 8.8 mg/dL (8.4-10.2); Carbon Dioxide 24 mmol/L (22-30); Chloride 108 mmol/L (98-107); Estimated Glomerular Filt Rate 48; Glucose 102 mg/dL (65-110); Potassium 4.1 mmol/L (3.4-5.0); Sodium 138 mmol/L (137-145); Total Protein 6.5 g/dL (6.3-8.2)
--- OUTSIDE RECORDS SUMMARY | 2025-07-12 10:47 | XMS_ITS | Encounter Summary ---
Author Organization [facility] Address [address] [place] [address] Phone Care Team Providers Care Hazardous Waste Material Technician Name Role Phone Lucio Rosas MD Unavailable Hero Pinedo MD Unavailable [phone] Jas Alcala MD Primary Care Provider [phone] Lon Tomas MD Unavailable [phone] Jaycee Teresa MD Unavailable [phone] Francisco Jones DO Unavailable [phone] Encounter Details Date Type Department Care Team (Late st Contact Info) Description 06/13/2025 Results Follow-Up [facility] Hematology 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 Not on file Not [...] Department Care Team (Latest Contact Info) Description 07/13/2025 10:00 AM CDT Hospital Encounter [facility] Medical Office Building [address] [address] 07/21/2025 10:30 AM CDT Hospital Encounter [facility] Disease [address] [address] Jerry Peguero MD [address] [address] 07/21/2025 10:30 AM CDT - 07/21/2025 11:00 AM CDT Surgery [facility] [address] [place] [address] Jerry Peguero MD [address] [address] ESOPHAGOGASTRODUODENOSCOPY cryo Scheduled Procedures Name Priority Associated Diagnoses Date/Ti ny ESOPHAGOGASTRODUODENOSCOPY Malignant neoplasm of lower third of esophagus (HCC) 07/21/2025 10:30 AM CDT documented as of this encounter Visit Diagnoses Not on filedocumented in this encounter Care Teams Hazardous Waste Material Technician Relationship Specialty Start Date End Date Jas Alcala MD [address] [place] [address] [address] [place] [address] PCP - General Internal Medicine 01/04/25 Lucio Rosas MD [address] [address] Consulting Physician Gastroenterology 11/28/24 Hero Pinedo MD [address] [place] [address] Radiation Oncologist Radiation Oncology 12/28/24 Lon Tomas MD [address] [place] [address] Consulting Physician Urology 01/04/25 Jaycee Teresa MD [address] [place] [address] Consulting Physician Cardiology 01/09/25 Francisco Jones DO [address] [facility] [address] [id number] Medical Oncologist/Hematologis t Hematology and Oncology 06/03/25 documented as of this encounter
--- OUTSIDE RECORDS SUMMARY | 2025-07-12 10:47 | XMS_ITS ---
Author Organization [facility] Address [address] [place] [address] Care Team Providers Care Bow Rehairer Name Role Phone Lucio Rosas MD Unavailable Hero Pinedo MD Unavailable [phone] Jas Alcala MD Primary Care Provider [phone] Lon Tomas MD Unavailable [phone] Jaycee Teresa MD Unavailable [phone] Francisco Jones DO Unavailable [phone] Active Problems Patient Care Coordination No te [...] He also has a history of an KS and PE. 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 -Pathology discuss in detail and all questions were answered -Refer for EUS -Refer to Oncology and Cardiothoracic surgery Miller's esophagus with high grade dysplasia Assessment & Plan (11/25/2024 9:41 AM DOMESTIC CLEANER): EGD September 2024 with irregular Z-line and gastric ulcers. Pathology with Barretts esophagus, indefinite for dysplasia. Repeat EGD November 2024 with Barretts esophagus, pathology with high-grade dysplasia. -Continue pantoprazole 40 mg p.o. b.i.d. History of colon polyps 11/25/2024 Assessment & Plan (11/25/2024 9:42 AM DOMESTIC CLEANER): Colonoscopy November 2024 with multiple tubular adenomas. -Repeat colonoscopy November 2027 Gastric ulcer 09/23/2024 Anemia due to blood loss 09/23/2024 Rectal bleeding 08/22/2024 Radiation proctitis 08/22/2024 Assessment & Plan (11/25/2024 9:41 AM DOMESTIC CLEANER): Colonoscopy November 2024 with severe radiation proctitis status post APC. -Consider flex sig with APC, patient advised to call office if rectal bleeding gets worse Eosinophilia 02/22/2024 Iron deficiency anemia, unspecified 02/22/2024 Anemia 02/22/2024 VT (ventricular tachycardia) 05/09/2022 Overview (05/09/2022): Added automatically from request for surgery [id number] Lower urinary tract symptoms (LUTS) 05/24/2020 Malignant [...]
--- OUTSIDE RECORDS SUMMARY | 2025-07-12 10:47 | XMS_ITS ---
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 -Pathology discuss in detail and all questions were answered -Refer for EUS -Refer to Oncology and Cardiothoracic surgery Miller's esophagus with high grade dysplasia Assessment & Plan (11/25/2024 9:[address] LANDSCAPE ARCHITECT): EGD September 2024 with irregular Z-line and gastric ulcers. Pathology with Barretts esophagus, indefinite for dysplasia. Repeat EGD November 2024 with Barretts esophagus, pathology with high-grade dysplasia. -Continue pantoprazole 40 mg p.o. b.i.d. History of colon polyps 11/25/2024 Assessment & Plan (11/25/2024 9:[address] LANDSCAPE ARCHITECT): Colonoscopy November 2024 with multiple tubular adenomas. -Repeat colonoscopy November 2027 Gastric ulcer 09/23/2024 Anemia due to blood loss 09/23/2024 Rectal bleeding 08/22/2024 Radiation proctitis 08/22/2024 Assessment & Plan (11/25/2024 9:[address] LANDSCAPE ARCHITECT): Colonoscopy November 2024 with severe radiation proctitis status post APC. -Consider flex sig with APC, patient advised to call office if rectal bleeding gets worse Eosinophilia 02/22/2024 Iron deficiency anemia, unspecified 02/22/2024 Anemia 02/22/2024 VT (ventricular tachycardia) 05/09/2022 Overview (05/09/2022): Added automatically from request for surgery [id number] Lower urinary tract symptoms (LUTS) 05/24/2020 Malignant neoplasm of prostate 04/25/2013 Encounters Date Type Department Care Team Description 07/10/20 25 Telephone [facility] Medicine Gastroenterology [address] [facility] Medical Office Building 4, [address] [place] [address] Leslie Thomas RN GI Preprocedure 07/10/20 25 Orders Only [facility] Gastroenterology at [address] [place] [phone] Lucio Rosas MD Miller's esophagus with high grade dysplasia (Primary Dx); Malignant neoplasm of lower third of esophagus (HCC) 06/28/20 2:00 PM CDT - 06/28/20 2:30 PM CDT Surgery [facility] [address] [place] [phone] Jerry Peguero MD EGD 06/28/20 1:15 PM CDT Anesthesia Event [facility] [address] [place] [phone] Sergio Gao MD 06/28/20 12:31 PM CDT - 06/28/20 2:18 PM CDT Hospital Encounter [facility] [address] [place] [phone] Jerry Peguero MD Discharge Disposition: Discharge to home or self care 06/28/20 12:05 PM CDT Lab [facility] Outpatient Lab [address] [place] [phone] Malignant neoplasm of lower third of esophagus (HCC); Abnormal coagulation profile 06/23/20 Telephone [facility] [address] [place] [address] Office Building [address], [address] [place] [phone] Leslie Thomas RN GI Preprocedure 06/23/20 Telephone [facility] [address] [place] [address] Office Building 4, [address] [place] [address] Lauren Delgado LPN GI Preprocedure 06/23/20 Telephone [facility] [address] [place] [address] Office Building 4, [address] [place] [phone] Amber Posada RN MD recommendations 06/19/20 10:30 AM CDT Anesthesia Event [facility] [address] [place] [address] Jacobo Horne MD 06/19/20 10:00 AM CDT - 06/19/20 10:30 AM CDT Surgery [facility] [place] [address] [facility] [address] [place] [address] Jerry Peguero MD ESOPHAGOGASTRODUODENOSCOPY WITH ABLATION 06/19/20 8:12 AM CDT - 06/19/20 11:51 AM CDT Hospital Encounter [facility] [place] [address] [address] Jerry Peguero MD Discharge Disposition: Discharge to home or self care 06/19/20 7:45 AM CDT Lab [facility] [place] [facility] [address] [place] [phone] Anemia, unspecified type; History of pulmonary embolism 06/14/20 11:15 AM CDT Infusion [facility] [place] at [address] [phone] Iron deficiency anemia, unspecified iron deficiency anemia type (Primary Dx); Anemia, unspecified type; History of pulmonary embolism 06/14/20 10:30 AM CDT Office Visit [facility] Medicine [facility] [address] [place] [phone] Mihaela Rod NP Anemia, unspecified type (Primary Dx); History of pulmonary embolism 06/14/20 10:00 AM CDT Clinical Support [facility] at [address] [address] Anemia, unspecified type; History of pulmonary embolism 06/13/20 Orders Only [facility] Medicine Hematology [address] [facility] Floor 6 [place] [phone] Gertrude Zhang Anemia, unspecified type (Primary Dx); History of pulmonary embolism 06/13/20 Results Follow-Up [facility] [address] [place] [phone] Mihaela Rod, AGNIESZKA Reticulocyte Count, CBC with auto differential, Iron profile w/ IBC, Additional followed-up results: 2 06/07/20 9:30 AM CDT Clinical Support [facility] at [address] [address] Anemia, unspecified type; History of pulmonary embolism 06/07/20 Orders Only [facility] Medicine Hematology [address] [place] [address] Floor 6 [place] [phone] Cathy Lawrence, WILBER 06/02/20 Telephone [facility] [address] [place] [address] Medical Office Building 4, [address] [place] [address] Leslie Thomas RN GI Preprocedure 06/01/20 2:15 PM CDT Office Visit [facility] [address] [place] [address] [address] [place] [phone] Francisco Jones, Malignant neoplasm of lower third of esophagus (HCC) (Primary Dx) 06/01/20 Orders Only [facility] [address] [place] [address] Floor 6 [place] [address] Gertrude Zhang Anemia, unspecified type (Primary Dx); History of pulmonary embolism 05/25/20 Telephone [facility] [address] [place] [address] Floor 5 [place] [address] Lorie Little, AGNIESZKA 05/24/20 9:00 AM CDT Clinical Support [facility] at [address] [address] Anemia, unspecified type; History of pulmonary embolism; Malignant neoplasm of lower third of esophagus (HCC) 05/24/20 Telephone [facility] at [address] [place] [phone] Kaycee Chanel, WILBER 05/19/20 Orders Only [facility] Medicine Surgery [address] [facility] [address] [place] [phone] Charlie Juarez MD Malignant neoplasm of lower third of esophagus (HCC) (Primary Dx) 05/19/20 Telephone [facility] [address] [facility] [address] [place] [address] Reinaldo Little RMA 05/19/20 Results Follow-Up [facility] Gastroenterology at [address] [place] [address] Lucio Rosas MD Surgical pathology 05/18/20 Telephone [facility] [address] [facility] Floor 5 [place] [phone] Lorie Little NP 05/15/20 Telephone [facility] Gastroenterology at [address] [place] [address] Lucio Rosas MD 05/15/20 Orders Only [facility] Gastroenterology at [address] [place] [phone] Lucio Rosas MD Gastric ulcer, unspecified chronicity, unspecified whether gastric ulcer hemorrhage or perforation present (Primary Dx) 05/12/20 Telephone [facility] Gastroenterology at [address] [place] [address] Lucio Rosas MD 05/11/20 12:00 PM CDT Infusion [facility] at [address] [place] [address] Anemia, unspecified type (Primary Dx); History of pulmonary embolism 05/11/20 25 9:00 AM CDT Clinical Support [facility] at [address] [address] Anemia, unspecified type; History of pulmonary embolism 05/10/20 25 10:43 AM CDT Anesthesia Event [facility] [address] [place] [address] Hal Kellogg MD 05/10/20 25 10:30 AM CDT - 05/10/20 11:00 AM CDT Surgery [facility] [address] [place] [address] Lucio Rosas MD ESOPHAGOGASTRODUODENOSCOPY BIOPSY 05/10/20 9:15 AM CDT - 05/10/20 11:35 AM CDT Hospital Encounter [facility] [address] [place] [address] Lucio Rosas MD Malignant neoplasm of lower third of esophagus (HCC) Discharge Disposition: Discharge to home or self care 05/08/20 Telephone [facility] [address] [place] [address] [place] [phone] Reinaldo Little RMA 05/08/20 Orders [facility] [address] [place] [phone] Charlie Juarez MD Malignant neoplasm of lower third of esophagus (HCC) (Primary Dx) 05/08/20 Telephone [facility] On[facility] [address] [place] [phone] Roseanna Roa 05/04/20 9:15 AM CDT Office Visit [facility] Surgery [address] [place] [phone] Charlie Juarez MD Malignant neoplasm of lower third of esophagus (HCC) (Primary Dx) 04/27/20 10:45 AM CDT Office Visit [facility] Oncology [address] [place] [phone] Bianca Hunter MD Malignant neoplasm of lower third of esophagus (HCC) (Primary Dx) 04/26/20 25 12:00 PM CDT Infusion [address] [phone] Anemia, unspecified type (Primary Dx); History of pulmonary embolism 04/26/20 25 9:00 AM CDT Clinical Support [address] [place] [address] Anemia, unspecified type; History of pulmonary embolism; Malignant neoplasm of lower third of esophagus (HCC) 04/21/20 Orders Only [facility] Gastroenterology at [address] [place] [phone] Lucio Rosas MD Malignant neoplasm of lower third of esophagus (HCC) (Primary Dx) 04/12/20 2:30 PM CDT Clinical Support [facility] Medical Office Building 2 Radiation Oncology [address] [place] [address] Malignant neoplasm of lower third of esophagus (HCC) (Primary Dx) 04/12/20 12:00 PM CDT Infusion [facility] at [address] [place] [address] Anemia, unspecified type (Primary Dx); History of pulmonary embolism 04/12/20 9:00 AM CDT Clinical Support [facility] at [address] [address] Anemia, unspecified type; History of pulmonary embolism [...] (HCC) Hepatitis A Neuropathy 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[place] (myocardial infarction) (HCC) 2018 PE (pulmonary thromboembolism) [...] on file Legal Sex Male 9:[address]CHITECT Gender Identity Not on file Sexual Orientation Not on file 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 Not on file Not [...] 06/28/2025 12:56 PM CDT Plan of Treatment Upcoming Encounters Date Type Department Care Team (Latest Contact Info) Description 07/13/2025 10:00 AM CDT Hospital Encounter [facility] Medical Office Building [address] [address] 07/21/2025 10:30 AM CDT Hospital Encounter [facility] [place] [address] [facility] [address] [place] [address] Jerry Peguero MD [address] [address] 07/21/2025 10:30 AM CDT - 07/21/2025 11:00 AM CDT Surgery [facility] [address] [address] Jerry Peguero MD [address] [address] ESOPHAGOGASTRODUODENOSCOPY cryo Scheduled Procedures Name Priority Associated Diagnoses Date/Ti me ESOPHAGOGASTRODUODENOSCOPY Malignant neoplasm of lower third of esophagus (HCC) 07/21/2025 10:30 AM CDT Health Maintenance Due Date Last Done Comments [...] exists Fall Risk Assessment 06/28/2026 06/28/2025, 01/05/20 25 Colon Cancer Screening-Colonoscopy 11/17/2027 11/17/2024 Colon Cancer Screening-CT Colonography Discontinued 11/17/2024 Colon Cancer Screening-DNA Stool Discontinued 11/17/19 Colon Cancer Screening-FIT Discontinued 11/17/2024 Colon Cancer Screening-Sigmoidoscopy Discontinued 11/17/2024 Abdominal Aortic Aneurysm (A AA) Screen Completed 12/13/2024 Medical Devices Implanted Type Area Architectural Practice Manager Device Identifier Shelf Expiration Date Model / Serial / Lot Screws And Rods Spine Lumbar [employer] Xcela Power Port 8fr [id number] - [id number] Implanted:Qty: 1 on 01/11/2025 by Linda Cardenas PA at [facility] [employer] 08/29/2029 [id number] / / [id number] Procedures Procedure Name Priority Date/Time Associated Diagnosis [...] Read Routine (OP Routine) 12/13/2024 7:[address]AND[address] ARCHITECT Malignant neoplasm of lower third of esophagus (HCC) COLONOSCOPY 11/17/2024 9:[address] LANDSCAPE ARCHITECT from Last 3 Months or Most Recently Relevant to Health Maintenance Results * EGD (06/28/2025 1:10 PM CDT) Anatomical Region Laterality Modality Other Narrative Procedure Note Jerry Peguero MD - 06/28/2025 1:10 PM CDT ENDOSCOPY LAB Patient Name: Brennen Olson Procedure Date: 06/28/2025 1:10 PM Admit Type: Outpatient Room: [facility] Date of : 1950 Instrument Name: [id number]-H605 [...] 13.5 sec INR 1.43(H) 0.90 - 1.20 [facility] Comment: Interpretive data Oral anticoagulant therapeutic ranges: Venous thromboembolism prophylaxis or treatment: 2.0-3.0 CARDIOLOGY Standard range: 2.0-3.0 High-intensity range: 2.5-3.5 Refer to indication-specific guidelines for appropriate target ranges for prosthetic heart valve replacement. Current interpretive data was last revised on 2019. Blood 06/28/2025 12:1 6 PM CDT 06/28/2025 12:50 PM CDT Jerry Peguero MD LAB BLOOD ORDERABLES Final Result Performing Organization Address [facility] Co de Phone Number [facility] [address] [email or web address] [address] * (ABNORMAL) Protime-INR (06/19/2025 9:16 AM CDT) PT 14.5(H) 10.2 - 13.5 sec INR 1.29(H) 0.90 - 1.20 [facility] Comment: Interpretive data Oral anticoagulant therapeutic [...] ORDERABLES Final Re sult Performing Organization Address City/[facility]/ZIP Co de Phone Number [facility] [place] [address] * EGD (06/19/2025 8:58 AM CDT) Anatomical Region Laterality Modality Other Narrative Procedure Note Jerry Peguero MD - 06/19/2025 8:58 AM CDT GI ENDOSCOPY [facility] Patient Name: Brennen Olson Procedure Date: 06/19/2025 8:58 AM Date of : 1950 Admit Type: Outpatient Age: 75 Gender: Male Attending MD: Jerry Peguero M.D., Room: [facility] ENDOSCOPY ROOM 2 Note Status: Finalized [...] passed under direct vision. The GIF H190 [id number] endoscope was introducedthrough the mouth, and advanced [...] and screen (06/19/2025 7:52 AM CDT) Pathologist [facility], indirect Negative ABO Rh A Positive [facility] Blood 06/19/2025 7:52 AM CDT 06/19/2025 8:44 AM CDT Narrative [facility] - 06/19/2025 10:03 AM CDT Has the patient had Daratumumab or Isatuximab in the past 6 months?->Unknown Mihaela Rod BOILER OUT LAB BLOOD BANK TEST DARIEL ELLINGTON Final Result [facility] [place] [address] * Differential, auto (06/19/2025 7:51 AM CDT) [facility] Neutrophil abs 2.78 1.50 - 6.50 K/cumm Imm gran abs 0.08 0.00 - 0.10 K/cumm [facility] Lymphocyte abs 0.92 0.80 - 3.30 K/cumm [facility] Monocyte abs 0.74 0.20 - 0.80 K/cumm [facility] Eosinophil abs 0.23 0.00 - 0.50 K/cumm [facility] Basophil abs 0.04 0.00 - 0.10 K/cumm [facility] Neutrophil pct 58.1 % [facility] Comment: Interpretive Data Percent cell count reference ranges are not reported, since discordance with absolute values may lead to misinterpretation of CBC data. Current Interpretive Data was last revised on 2018. Imm gran pct 1.7 % [facility] Comment: Interpretive Data Percent cell count reference ranges are not reported, since discordance with absolute values may lead to misinterpretation of CBC data. Current Interpretive Data was last revised on 2018. Lymphocyte pct 19.2 % [facility] Comment: Interpretive Data Percent cell count reference ranges are not reported, since discordance with absolute values may lead to misinterpretation of CBC data. Current Interpretive Data was last revised on 2018. Monocyte pct 15.4 % [facility] Comment: Interpretive Data Percent cell count reference ranges are not reported, since discordance with absolute values may lead to misinterpretation of CBC data. Current Interpretive Data was last revised on 2018. Eosinophil pct 4.8 % [facility] Comment: Interpretive Data Percent cell count reference ranges are not reported, since discordance with absolute values may lead to misinterpretation of CBC data. Current Interpretive Data was last revised on 2018. Basophil pct 0.8 % [facility] Comment: Interpretive Data Percent cell count reference ranges are not reported, since discordance with absolute values may lead to misinterpretation of CBC data. Current Interpretive Data was last revised on 2018. Blood 06/19/2025 7:51 AM CDT 06/19/2025 8:28 AM CDT Mihaela Rod BOILER OUT LAB BLOOD ORDERABLES Fin al Result Performing Organization Address City/[facility] Co de Phone Number [facility] [place] [employer] [place] [address] * Iron profile w/ IBC (06/19/2025 7:51 AM CDT) Iron 115 50 - 150 mcg/dL TIBC 298 250 - 400 mcg/dL [facility] Transferrin saturation 39 20 - 50 % [facility] Blood 06/19/2025 7:51 AM CDT 06/19/2025 8:28 AM CDT Mihaela Rod BOILER OUT LAB BLOOD ORDERABLES Fin al Result [facility] Department [place] [address] * (ABNORMAL) CBC with auto differential (06/19/2025 7:51 AM CDT) [facility] WBC 4.79 3.80 - 9.90 K/cumm Hgb 9.0(L) 13.0 - 17.5 g/dL [facility] Hct 29.6(L) 38.9 - 50.3 % [facility] Plt 254 150 - 400 K/cumm [facility] MPV 8.8(L) 9.1 - 12.3 fL [facility] RBC 2.98(L) 4.30 - 5.80 M/cumm [facility] MCV 99.3(H) 81.3 - 96.4 fL [facility] MCH 30.2 27.1 - 33.3 pg [facility] MCHC 30.4(L) 32.3 - 35.7 g/dL [facility] RDW CV 16.8(H) 11.1 - 14.9 % [facility] RDW SD 57.8(H) 35.7 - 48.1 fL [facility] NRBC abs 0.00 0.00 - 0.01 K/cumm [facility] Blood 06/19/2025 7:51 AM CDT 06/19/2025 8:28 AM CDT Mihaela Rod BOILER OUT LAB BLOOD ORDERABLES Fin al Result [facility] Department [place] [address] * (ABNORMAL) Reticulocyte Count (06/19/2025 7:51 AM CDT) Pathologist [facility], absolute 168(H) 20 - 87 K/cumm Retics 5.6(H) 0.4 - 2.9 % [facility] Reticulocyte Hgb 35.0 30.5 - 38.0 pg [facility] Blood 06/19/2025 7:51 AM CDT 06/19/2025 8:28 AM CDT Mihaela Rod BOILER OUT LAB BLOOD ORDERABLES Fin al Result [facility] Department [place] [address] * (ABNORMAL) Ferritin (06/19/2025 7:51 AM CDT) Ferritin 423(H) 30 - 400 ng/mL Blood 06/19/2025 7:51 AM CDT 06/19/2025 8:28 AM CDT Mihaeal Rod BOILER OUT LAB BLOOD ORDERABLES Fin al Result Performing Organization Address [facility] de Phone Number [facility] Department [place] [address] * (ABNORMAL) eGFR (06/14/2025 10:05 AM CDT) [...] was last reviewed 2021. Testing performed by: [facility], [address] [place] [address]., [id number] Blood 06/14/2025 10:0 5 AM CDT 06/14/2025 10:06 AM CDT us Nena Cano BOILER OUT LAB BLOOD ORDERABLES Final Result [facility] [address] [facility] Department [place] [address] * (ABNORMAL) Differential, auto (06/14/2025 10:05 AM CDT) Neutrophil abs 2.53 1.50 - 6.50 K/cumm Comment:Testing performed by : [address] [address] Imm gran abs 0.02 0.00 - 0.10 K/cumm [facility] Comment:Testing performed by : [address] [address] Lymphocyte abs 0.60(L) 0.80 - 3.30 K/cumm [facility] Comment:Testing performed by : [address] [address] Monocyte abs 0.61 0.20 - 0.80 K/cumm [facility] Comment:Testing performed by : [address] [address] Eosinophil abs 0.21 0.00 - 0.50 K/cumm [facility] Comment:Testing performed by : [address] [address] Basophil abs 0.03 0.00 - 0.10 K/cumm [facility] Comment:Testing performed by : [address] [address] Neutrophil pct 63.1 % [facility] Comment: Interpretive Data Percent cell count reference ranges are not reported, since discordance with absolute values may lead to misinterpretation of CBC data. Current Interpretive Data was last revised on 2018. Testing performed by: [address] [address] Imm gran pct 0.5 % [facility] Comment: Interpretive Data Percent cell count reference ranges are not reported, since discordance with absolute values may lead to misinterpretation of CBC data. Current Interpretive Data was last revised on 2018. Testing performed by: [address] [address] Lymphocyte pct 15.0 % [facility] Comment: Interpretive Data Percent cell count reference ranges are not reported, since discordance with absolute values may lead to misinterpretation of CBC data. Current Interpretive Data was last revised on 2018. Testing performed by: [address] [address] Monocyte pct 15.3 % [facility] Comment: Interpretive Data Percent cell count reference ranges are not reported, since discordance with absolute values may lead to misinterpretation of CBC data. Current Interpretive Data was last revised on 2018. Testing performed by: [address] [address] Eosinophil pct 5.3 % [facility] Comment: Interpretive Data Percent cell count reference ranges are not reported, since discordance with absolute values may lead to misinterpretation of CBC data. Current Interpretive Data was last revised on 2018. Testing performed by: [address] [address] Basophil pct 0.8 % [facility] Comment: Interpretive Data Percent cell count reference ranges are not reported, since discordance with absolute values may lead to misinterpretation of CBC data. Current Interpretive Data was last revised on 2018. Testing performed by: [address] [address] Blood 06/14/2025 10:0 5 AM CDT 06/14/2025 10:06 AM CDT us Nena Cano BOILER OUT LAB BLOOD ORDERABLES Final Result [facility] [address] [facility] Department [place] [address] * Iron profile w/ IBC (06/14/2025 10:05 AM CDT) Iron 105 50 - 150 mcg/dL Comment:Testing performed by : [address] [address] TIBC 258 250 - 400 mcg/dL ISAAC Comment:Testing performed by : [address] [address] Transferrin saturation 41 20 - 50 % ISAAC Comment:Testing performed by : [address] [address] Blood 06/14/2025 10:0 5 AM CDT 06/14/2025 11:48 AM CDT Nena Cano BOILER OUT LAB BLOOD ORDERABLES Final Result [facility] [address] [facility] Department [place] [address] * (ABNORMAL) CBC with auto differential (06/14/2025 10:05 AM CDT) WBC 4.00 3.80 - 9.90 K/cumm Comment:Testing performed by : [address] [address] Hgb 8.4(L) 13.0 - 17.5 g/dL ISAAC Comment:Testing performed by : [address] [address] Hct 27.3(L) 38.9 - 50.3 % ISAAC Comment:Testing performed by : [address] [address] Plt 228 150 - 400 K/cumm ISAAC Comment:Testing performed by : [address] [address] MPV 8.4(L) 9.1 - 12.3 fL ISAAC Comment:Testing performed by : [address] [address] RBC 2.85(L) 4.30 - 5.80 M/cumm ISAAC Comment:Testing performed by : [address] [address] MCV 95.8 81.3 - 96.4 fL ISAAC Comment:Testing performed by : [address] [address] MCH 29.5 27.1 - 33.3 pg ISAAC Comment:Testing performed by : [address] [address] MCHC 30.8(L) 32.3 - 35.7 g/dL ISAAC SERNA Comment:Testing performed by : [address] [address] RDW CV 14.7 11.1 - 14.9 % ISAAC Comment:Testing performed by : [address] [address] RDW SD 51.8(H) 35.7 - 48.1 fL ISAAC Comment:Testing performed by : [address] [address] NRBC abs 0.00 0.00 - 0.01 K/cumm ISAAC Comment:Testing performed by : [address] [address] ANC Prelim 2.53 1.50 - 6.50 K/cumm ISAAC Comment: Interpretive Data The rapid ANC is a preliminary automated count and may vary from the final ANC (Neut Abs) reported in the WBC differential that follows. Current interpretive data was last revised 2025. Testing performed by: [address] [address] Blood 06/14/2025 10:0 5 AM CDT 06/14/2025 10:06 AM CDT Nena Cano NP LAB BLOOD ORDERABLES Final Result ISAAC [address] [facility] Department of Laboratories [place], [place] [id number] * (ABNORMAL) Reticulocyte Count (06/14/2025 10:05 AM CDT) Retics, absolute 95(H) 20 - 87 K/cumm Comment:Testing performed by : [address] [address] Retics 3.3(H) 0.4 - 2.9 % IASAC Comment:Testing performed by : [address] [address] Reticulocyte Hgb 25.3(L) 30.5 - 38.0 pg ISAAC SERNA Comment:Testing performed by : [address] [address] Blood 06/14/2025 10:0 5 AM CDT 06/14/2025 10:06 AM CDT Nena Cano BOILER OUT LAB BLOOD ORDERABLES Final Result Performing Organization Address City/[facility] Co de Phone Number ISAAC [address] [place] [employer] [address] * Ferritin (06/14/2025 10:05 AM CDT) [facility] Ferritin 44 30 - 400 ng/mL Comment:Testing performed by : [address] [address] Blood 06/14/2025 10:0 5 AM CDT 06/14/2025 11:48 AM CDT Nena Cano BOILER OUT LAB BLOOD ORDERABLES Final Result Performing Organization Address City/[facility] de Phone Number DAYANA[address] [place] [address] * (ABNORMAL) Comprehensive metabolic panel (06/14/2025 10:05 AM CDT) [facility] Sodium 139 135 - 145 mmol/L Comment:Testing performed by : [address] [address] Potassium, pl 4.3 3.3 - 4.9 mmol/L ISAAC SERNA Comment:Testing performed by : [address] [address] Chloride 107 97 - 110 mmol/L ISAAC SERNA Comment:Testing performed by : [address] [address] CO2 22 22 - 32 mmol/L ISAAC SERNA Comment:Testing performed by : [address] [address] Anion gap 10 2 - 15 mmol/L ISAAC Comment:Testing performed by : [address] [address] BUN 25 6 - 25 mg/dL ISAAC Comment:Testing performed by : [address] [address] Creatinine 1.60(H) 0.80 - 1.30 mg/dL ISAAC Comment:Testing performed by : [address] [address] Glucose 88 70 - 199 mg/dL ISAAC [...] was last revised 2022. Testing performed by: [address] [address] Calcium 8.9 8.5 - 10.3 mg/dL ISAAC Comment:Testing performed by : [address] [address] Bilirubin, total 0.2 0.1 - 1.2 mg/dL ISAAC Comment:Testing performed by : [address] [address] Protein, pl 6.6 6.5 - 8.5 g/dL ISAAC Comment:Testing performed by : [address] [address] Albumin 3.8 3.5 - 5.0 g/dL ISAAC Comment:Testing performed by : [address] [address] Alk phos 65 40 - 130 Units/L ISAAC Comment:Testing performed by : [address] [address] ALT 10 7 - 55 Units/L ISAAC Comment:Testing performed by : [address] [address] AST 16 10 - 50 Units/L ISAAC Comment:Testing performed by : [address] [address] Blood 06/14/2025 10:0 5 AM CDT 06/14/2025 10:06 AM CDT Nena Cano BOILER OUT LAB BLOOD ORDERABLES Final Result ISAAC [facility] Department [place] [address] * (ABNORMAL) Differential, auto (06/07/2025 9:24 AM CDT) Neutrophil abs 2.55 1.50 - 6.50 K/cumm Comment:Testing performed by : [address] [address] Imm gran abs 0.03 0.00 - 0.10 K/cumm ISAAC Comment:Testing performed by : [address] [address] Lymphocyte abs 0.72(L) 0.80 - 3.30 K/cumm ISAAC Comment:Testing performed by : [address] [address] Monocyte abs 0.56 0.20 - 0.80 K/cumm ISAAC Comment:Testing performed by : [address] [address] Eosinophil abs 0.23 0.00 - 0.50 K/cumm ISAAC Comment:Testing performed by : [address] [address] Basophil abs 0.04 0.00 - 0.10 K/cumm ISAAC Comment:Testing performed by : [address] [address] Neutrophil pct 61.7 % ISAAC Comment: Interpretive Data Percent cell count reference ranges are not reported, since discordance with absolute values may lead to misinterpretation of CBC data. Current Interpretive Data was last revised on 2018. Testing performed by: [address] [address] Imm gran pct 0.7 % [facility] Comment: Interpretive Data Percent cell count reference ranges are not reported, since discordance with absolute values may lead to misinterpretation of CBC data. Current Interpretive Data was last revised on 2018. Testing performed by: [address] [address] Lymphocyte pct 17.4 % [facility] Comment: Interpretive Data Percent cell count reference ranges are not reported, since discordance with absolute values may lead to misinterpretation of CBC data. Current Interpretive Data was last revised on 2018. Testing performed by: [address] [address] Monocyte pct 13.6 % [facility] Comment: Interpretive Data Percent cell count reference ranges are not reported, since discordance with absolute values may lead to misinterpretation of CBC data. Current Interpretive Data was last revised on 2018. Testing performed by: [address] [address] Eosinophil pct 5.6 % [facility] Comment: Interpretive Data Percent cell count reference ranges are not reported, since discordance with absolute values may lead to misinterpretation of CBC data. Current Interpretive Data was last revised on 2018. Testing performed by: [address] [address] Basophil pct 1.0 % [facility] Comment: Interpretive Data Percent cell count reference ranges are not reported, since discordance with absolute values may lead to misinterpretation of CBC data. Current Interpretive Data was last revised on 2018. Testing performed by: [address] [address] Blood 06/07/2025 9:24 AM CDT 06/07/2025 9:32 AM CDT Nena Cano BOILER OUT LAB BLOOD ORDERABLES Final Result [facility] Department [place] [address] * (ABNORMAL) Iron profile w/ IBC (06/07/2025 9:24 AM CDT) [facility] Iron 36(L) 50 - 150 mcg/dL Comment:Testing performed by : [address] [address] TIBC 260 250 - 400 mcg/dL ISAAC Comment:Testing performed by : [address] [address] Transferrin saturation 14(L) 20 - 50 % ISAAC Comment:Testing performed by : [address] [address] Blood 06/07/2025 9:24 AM CDT 06/07/2025 11:43 AM CDT Nena Cano BOILER OUT LAB BLOOD ORDERABLES Final Result ISAAC [address] Department [place] [address] * (ABNORMAL) CBC with auto differential (06/07/2025 9:24 AM CDT) [facility] WBC 4.13 3.80 - 9.90 K/cumm Comment:Testing performed by : [address] [address] Hgb 8.9(L) 13.0 - 17.5 g/dL ISAAC Comment:Testing performed by : [address] [address] Hct 28.1(L) 38.9 - 50.3 % ISAAC Comment:Testing performed by : [address] [address] Plt 232 150 - 400 K/cumm ISAAC Comment:Testing performed by : [address] [address] MPV 8.3(L) 9.1 - 12.3 fL ISAAC SERNA Comment:Testing performed by : [address] [address] RBC 2.92(L) 4.30 - 5.80 M/cumm ISAAC Comment:Testing performed by : [address] [address] MCV 96.2 81.3 - 96.4 fL ISAAC Comment:Testing performed by : [address] [address] MCH 30.5 27.1 - 33.3 pg ISAAC Comment:Testing performed by : [address] [address] MCHC 31.7(L) 32.3 - 35.7 g/dL ISAAC Comment:Testing performed by : [address], [address] RDW CV 15.0(H) 11.1 - 14.9 % ISAAC Comment:Testing performed by : [address], [address] RDW SD 53.0(H) 35.7 - 48.1 fL ISAAC Comment:Testing performed by : [address] [address] NRBC abs 0.00 0.00 - 0.01 K/cumm ISAAC Comment:Testing performed by : [address] [address] ANC Prelim 2.55 1.50 - 6.50 K/cumm ISAAC Comment: Interpretive Data The rapid ANC is a preliminary automated count and may vary from the final ANC (Neut Abs) reported in the WBC differential that follows. Current interpretive data was last revised 2025. Testing performed by: [address] [address] Blood 06/07/2025 9:24 AM CDT 06/07/2025 9:32 AM CDT us Nena Cano BOILER OUT LAB BLOOD ORDERABLES Final Result ISAAC [address] [facility] Department [place] [address] * (ABNORMAL) Reticulocyte Count (06/07/2025 9:24 AM CDT) [facility] Retics, absolute 89(H) 20 - 87 K/cumm Comment:Testing performed by : [address] [address] Retics 3.1(H) 0.4 - 2.9 % ISAAC Comment:Testing performed by : [address] [address] Reticulocyte Hgb 26.6(L) 30.5 - 38.0 pg ISAAC Comment:Testing performed by : [address] [address] Blood 06/07/2025 9:24 AM CDT 06/07/2025 9:32 AM CDT Nena Cano BOILER OUT LAB BLOOD ORDERABLES Final Result Performing Organization Address City/[facility]/ZIP Co de Phone Number [address] [email or web address] [address] * Ferritin (06/07/2025 9:24 AM CDT) [facility] Ferritin 41 30 - 400 ng/mL Comment:Testing performed by : [address] [address] Blood 06/07/2025 9:24 AM CDT 06/07/2025 11:43 AM CDT Nena Cano BOILER OUT LAB BLOOD ORDERABLES Final Result [address] [place] [address] * (ABNORMAL) eGFR (05/24/2025 9:05 AM CDT) [facility] eGFR 42(L) >=60 mL/min/1. 73 m2 [...] was last reviewed 2021. Testing performed by: [address] [address] Blood 05/24/2025 9:05 AM CDT 05/24/2025 9:10 AM CDT Bianca Hunter MD LAB BLOOD ORDERABLES Final Result [facility] [address] [facility] Department [place] [address] * (ABNORMAL) Differential, auto (05/24/2025 9:05 AM CDT) Neutrophil abs 2.41 1.50 - 6.50 K/cumm Comment:Testing performed by : [address] [address] Imm gran abs 0.05 0.00 - 0.10 K/cumm ISAAC Comment:Testing performed by : [address] [address] Lymphocyte abs 0.67(L) 0.80 - 3.30 K/cumm ISAAC Comment:Testing performed by : [address] [address] Monocyte abs 0.70 0.20 - 0.80 K/cumm ISAAC Comment:Testing performed by : [address] [address] Eosinophil abs 0.29 0.00 - 0.50 K/cumm [facility] Comment:Testing performed by : [address] [address] Basophil abs 0.04 0.00 - 0.10 K/cumm [facility] Comment:Testing performed by : [address] [address] Neutrophil pct 57.9 % [facility] Comment: Interpretive Data Percent cell count reference ranges are not reported, since discordance with absolute values may lead to misinterpretation of CBC data. Current Interpretive Data was last revised on 2018. Testing performed by: [address] [address] Imm gran pct 1.2 % [facility] Comment: Interpretive Data Percent cell count reference ranges are not reported, since discordance with absolute values may lead to misinterpretation of CBC data. Current Interpretive Data was last revised on 2018. Testing performed by: [address] [address] Lymphocyte pct 16.1 % [facility] Comment: Interpretive Data Percent cell count reference ranges are not reported, since discordance with absolute values may lead to misinterpretation of CBC data. Current Interpretive Data was last revised on 2018. Testing performed by: [address] [address] Monocyte pct 16.8 % [facility] Comment: Interpretive Data Percent cell count reference ranges are not reported, since discordance with absolute values may lead to misinterpretation of CBC data. Current Interpretive Data was last revised on 2018. Testing performed by: [address] [address] Eosinophil pct 7.0 % [facility] Comment: Interpretive Data Percent cell count reference ranges are not reported, since discordance with absolute values may lead to misinterpretation of CBC data. Current Interpretive Data was last revised on 2018. Testing performed by: [address] [address] Basophil pct 1.0 % [facility] Comment: Interpretive Data Percent cell count reference ranges are not reported, since discordance with absolute values may lead to misinterpretation of CBC data. Current Interpretive Data was last revised on 2018. Testing performed by: [address] [address] Blood 05/24/2025 9:05 AM CDT 05/24/2025 9:10 AM CDT Bianca Hunter MD LAB BLOOD ORDERABLES Final Result Performing Organization Address City/[facility] Co de Phone Number ISAAC [address] [facility] Department [place] [address] * (ABNORMAL) Iron profile w/ IBC (05/24/2025 9:05 AM CDT) Pathologist [facility] Iron 108 50 - 150 mcg/dL Comment:Testing performed by : [address] [address] TIBC 242(L) 250 - 400 mcg/dL ISACA Comment:Testing performed by : [address] [address] Transferrin saturation 45 20 - 50 % ISAAC Comment:Testing performed by : [address] [address] Blood 05/24/2025 9:05 AM CDT 05/24/2025 9:39 AM CDT us Nena Cano NP LAB BLOOD ORDERABLES Final Result Performing Organization Address [facility] Co de Phone Number ISAAC [address] [facility] Department [place] [address] * (ABNORMAL) CBC with auto differential (05/24/2025 9:05 AM CDT) Pathologist [facility] WBC 4.16 3.80 - 9.90 K/cumm Comment:Testing performed by : [address] [address] Hgb 9.2(L) 13.0 - 17.5 g/dL ISAAC Comment:Testing performed by : [address] [address] Hct 28.8(L) 38.9 - 50.3 % ISAAC Comment:Testing performed by : [address] [address] Plt 204 150 - 400 K/cumm ISAAC Comment:Testing performed by : [address] [address] MPV 8.3(L) 9.1 - 12.3 fL ISAAC Comment:Testing performed by : [address] [address] RBC 2.98(L) 4.30 - 5.80 M/cumm ISAAC Comment:Testing performed by : [address] [address] MCV 96.6(H) 81.3 - 96.4 fL ISAAC Comment:Testing performed by : [address] [address] MCH 30.9 27.1 - 33.3 pg ISAAC Comment:Testing performed by : [address] [address] MCHC 31.9(L) 32.3 - 35.7 g/dL ISAAC Comment:Testing performed by : [address] [address] RDW CV 16.1(H) 11.1 - 14.9 % ISAAC Comment:Testing performed by : [address], [address] RDW SD 57.4(H) 35.7 - 48.1 fL ISAAC Comment:Testing performed by : [address] [address] NRBC abs 0.00 0.00 - 0.01 K/cumm ISAAC Comment:Testing performed by : [address] [address] ANC Prelim 2.41 1.50 - 6.50 K/cumm ISAAC Comment: Interpretive Data The rapid ANC is a preliminary automated count and may vary from the final ANC (Neut Abs) reported in the WBC differential that follows. Current interpretive data was last revised 2025. Testing performed by: [facility], [address] [place] [address]., [address] Blood 05/24/2025 9:05 AM CDT 05/24/2025 9:10 AM CDT Bianca Hunter MD LAB BLOOD ORDERABLES Final Result Performing Organization Address City/[facility] Co de Phone Number ISAAC [address] [facility] [place] [address] * Reticulocyte Count (05/24/2025 9:05 AM CDT) Retics, absolute 79 20 - 87 K/cumm Comment:Testing performed by : [address] [address] Retics 2.6 0.4 - 2.9 % ISAAC Comment:Testing performed by : [address] [address] Reticulocyte Hgb 30.9 30.5 - 38.0 pg ISAAC Comment:Testing performed by : [address] [address] Blood 05/24/2025 9:05 AM CDT 05/24/2025 9:10 AM CDT Nena Cano NP LAB BLOOD ORDERABLES Final Result Performing Organization Address City/[facility] Co de Phone Number [place] [address] [facility] [place] [address] * Ferritin (05/24/2025 9:05 AM CDT) Ferritin 62 30 - 400 ng/mL Comment:Testing performed by : [address] [address] Blood 05/24/2025 9:05 AM CDT 05/24/2025 9:39 AM CDT Nena Mamta Golec BOILER OUT LAB BLOOD ORDERABLES Final Result ISAAC [address] [facility] Department [place] [address] * (ABNORMAL) Comprehensive metabolic panel (05/24/2025 9:05 AM CDT) Sodium 139 135 - 145 mmol/L Comment:Testing performed by : [address] [address] Potassium, pl 4.4 3.3 - 4.9 mmol/L ISAAC Comment:Testing performed by : [address], [place]., [address] Chloride 106 97 - 110 mmol/L ISAAC Comment:Testing performed by : [address] [address] CO2 22 22 - 32 mmol/L ISAAC Comment:Testing performed by : [address] [address] Anion gap 11 2 - 15 mmol/L ISAAC Comment:Testing performed by : [address] [address] BUN 23 6 - 25 mg/dL ISAAC Comment:Testing performed by : [address] [address] Creatinine 1.70(H) 0.80 - 1.30 mg/dL ISAAC Comment:Testing performed by : [address] [address] Glucose 91 70 - 199 mg/dL [facility] Comment: Interpretive Data Fasting glucose >/= 126 [...] was last revised 2022. Testing performed by: [address] [address] Calcium 9.0 8.5 - 10.3 mg/dL ISAAC Comment:Testing performed by : [address] [address] Bilirubin, total 0.3 0.1 - 1.2 mg/dL ISAAC Comment:Testing performed by : [address] [address] Protein, pl 6.6 6.5 - 8.5 g/dL ISAAC Comment:Testing performed by : [address] [address] Albumin 3.7 3.5 - 5.0 g/dL ISAAC Comment:Testing performed by : [address], [address] Alk phos 61 40 - 130 Units/L ISAAC Comment:Testing performed by : [address] [address] ALT 13 7 - 55 Units/L ISAAC Comment:Testing performed by : [address] [address] AST 17 10 - 50 Units/L ISAAC Comment:Testing performed by : [address], [address] Blood 05/24/2025 9:05 AM CDT 05/24/2025 9:10 AM CDT Bianca Hunter MD LAB BLOOD ORDERABLES Final Result Performing Organization Address City/State/[facility] Co de Phone Number [facility] [address] [facility] Department of Laboratories [place], [place] [id number] * Transfuse RBC (05/11/2025 2:28 PM CDT) Blood Francisco Jones DO BLOOD TRANSFUSION ORDERABLES Final Result * Prepare RBC: 1 Units (05/11/2025 10:01 AM CDT) [facility] Signature Units requested 1 Comment:Testing performed by : [address] [address] Units requested Ready ISAAC Comment:Testing performed by : [address] [address] Unit Number [id number] Product code [id number] ISAAC Blood Expiration Date [id number] [facility] Product Blood Type (for scanning) 6200 [facility] Product Blood Type APOS [facility] Dispense Status DISPENSED [facility] Blood 05/11/2025 10:0 1 AM CDT 05/11/2025 10:01 AM CDT us Nena Cano BOILER OUT BLOOD BANK PRODUCT ORDERABL ES Final Result [facility] [address] [facility] Department [place] [address] * (ABNORMAL) Differential, auto (05/11/2025 9:00 AM CDT) Neutrophil abs 2.24 1.50 - 6.50 K/cumm Comment:Testing performed by : [address] [address] Imm gran abs 0.02 0.00 - 0.10 K/cumm ISAAC Comment:Testing performed by : [address] [address] Lymphocyte abs 0.58(L) 0.80 - 3.30 K/cumm ISAAC Comment:Testing performed by : [address] [address] Monocyte abs 0.53 0.20 - 0.80 K/cumm ISAAC Comment:Testing performed by : [address] [address] Eosinophil abs 0.27 0.00 - 0.50 K/cumm ISAAC Comment:Testing performed by : [address] [address] Basophil abs 0.03 0.00 - 0.10 K/cumm ISAAC Comment:Testing performed by : [address] [address] Neutrophil pct 61.1 % ISAAC Comment: Interpretive Data Percent cell count reference ranges are not reported, since discordance with absolute values may lead to misinterpretation of CBC data. Current Interpretive Data was last revised on 2018. Testing performed by: [address] [address] Imm gran pct 0.5 % ISAAC Comment: Interpretive Data Percent cell count reference ranges are not reported, since discordance with absolute values may lead to misinterpretation of CBC data. Current Interpretive Data was last revised on 2018. Testing performed by: [address] [address] Lymphocyte pct 15.8 % [facility] Comment: Interpretive Data Percent cell count reference ranges are not reported, since discordance with absolute values may lead to misinterpretation of CBC data. Current Interpretive Data was last revised on 2018. Testing performed by: [address] [address] Monocyte pct 14.4 % [facility] Comment: Interpretive Data Percent cell count reference ranges are not reported, since discordance with absolute values may lead to misinterpretation of CBC data. Current Interpretive Data was last revised on 2018. Testing performed by: [address] [address] Eosinophil pct 7.4 % [facility] Comment: Interpretive Data Percent cell count reference ranges are not reported, since discordance with absolute values may lead to misinterpretation of CBC data. Current Interpretive Data was last revised on 2018. Testing performed by: [address] [address] Basophil pct 0.8 % [facility] Comment: Interpretive Data Percent cell count reference ranges are not reported, since discordance with absolute values may lead to misinterpretation of CBC data. Current Interpretive Data was last revised on 2018. Testing performed by: [address] [address] Blood 05/11/2025 9:00 AM CDT 05/11/2025 9:03 AM CDT Nena Mamta Golec BOILER OUT LAB BLOOD ORDERABLES Final Result Performing Organization Address [facility] Co de Phone Number ISAAC [facility] Department [place] [address] * (ABNORMAL) Iron profile w/ IBC (05/11/2025 9:00 AM CDT) [facility] Iron 73 50 - 150 mcg/dL Comment:Testing performed by : [address] [address] TIBC 241(L) 250 - 400 mcg/dL ISAAC SERNA Comment:Testing performed by : [address] [address] Transferrin saturation 30 20 - 50 % ISAAC SERNA Comment:Testing performed by : [address] [address] Blood 05/11/2025 9:00 AM CDT 05/11/2025 9:35 AM CDT Nena Cano BOILER OUT LAB BLOOD ORDERABLES Final Result Performing Organization Address [facility] Co de Phone Number ISAAC [facility] Department [place] [address] * (ABNORMAL) CBC with auto differential (05/11/2025 9:00 AM CDT) [facility] [facility] WBC 3.67(L) 3.80 - 9.90 K/cumm Comment:Testing performed by : [address] [address] Hgb 8.0(L) 13.0 - 17.5 g/dL IS[facility]AC SERNA Comment:Testing performed by : [address] [address] Hct 26.0(L) 38.9 - 50.3 % IS[facility]AC SERNA Comment:Testing performed by : [address] [address] Plt 184 150 - 400 K/cumm ISAAC SERNA Comment:Testing performed by : [address] [address] MPV 8.6(L) 9.1 - 12.3 fL IASAC SERNA Comment:Testing performed by : [address] [address] RBC 2.53(L) 4.30 - 5.80 M/cumm ISAAC Comment:Testing performed by : [address] [address] MCV 102.8(H) 81.3 - 96.4 fL ISAAC Comment:Testing performed by : [address] [address] MCH 31.6 27.1 - 33.3 pg ISAAC Comment:Testing performed by : [address] [address] MCHC 30.8(L) 32.3 - 35.7 g/dL ISAAC Comment:Testing performed by : [address] [address] RDW CV 17.3(H) 11.1 - 14.9 % ISAAC Comment:Testing performed by : [address] [address] RDW SD 65.1(H) 35.7 - 48.1 fL ISAAC Comment:Testing performed by : [address] [address] NRBC abs 0.00 0.00 - 0.01 K/cumm ISAAC Comment:Testing performed by : [address] [address] ANC Prelim 2.24 1.50 - 6.50 K/cumm ISAAC Comment: Interpretive Data The rapid ANC is a preliminary automated count and may vary from the final ANC (Neut Abs) reported in the WBC differential that follows. Current interpretive data was last revised 2025. Testing performed by: [address] [address] Blood 05/11/2025 9:00 AM CDT 05/11/2025 9:03 AM CDT Nena Cano BOILER OUT LAB BLOOD ORDERABLES Final Result [address] [address] * ABO/Rh (05/11/2025 9:00 AM CDT) [facility] ABO/Rh A Positive Comment:Testing performed by : [address] [address] Blood 05/11/2025 9:00 AM CDT 05/11/2025 9:33 AM CDT Narrative ISAAC - 05/11/2025 9:59 AM CDT Has the patient had Daratumumab or Isatuximab in the past 6 months?->Unknown Nena Cano NP LAB BLOOD BANK TEST ORDERAB LES Final Result Performing Organization Address [facility] Co de Phone Number [address] [address] * (ABNORMAL) Reticulocyte Count (05/11/2025 9:00 AM CDT) [facility] Retics, absolute 105(H) 20 - 87 K/cumm Comment:Testing performed by : [address] [address] Retics 4.1(H) 0.4 - 2.9 % ISAAC Comment:Testing performed by : [address] [address] Reticulocyte Hgb 34.4 30.5 - 38.0 pg ISAAC Comment:Testing performed by : [address] [address] Blood 05/11/2025 9:00 AM CDT 05/11/2025 9:03 AM CDT Nena Cano NP LAB BLOOD ORDERABLES Final Result Performing Organization Address City/[facility] Co de Phone Number [address] [address] * Crossmatch (05/11/2025 9:00 AM CDT) Crossmatch Compatible [facility] Unit number for crossmatch [id number] [facility] Blood 05/11/2025 9:00 AM CDT 05/11/2025 9:33 AM CDT Jas Alcala MD LAB BLOOD BANK TEST ORDERABL ES Final Result Performing Organization Address City/[facility]/ZIP Co de Phone Number [address] [place] [address] * Antibody screen (05/11/2025 9:00 AM CDT) Pathologist [facility] Divina, indirect, Gel Interpretation Negative ABSC Comment:Testing performed by : [address] [address] Blood 05/11/2025 9:00 AM CDT 05/11/2025 9:33 AM CDT Narrative [facility] - 05/11/2025 10:12 AM CDT Has the patient had Daratumumab or Isatuximab in the past 6 months?->Unknown Nena Cano NP LAB BLOOD BANK TEST ORDERAB LES Final Result Performing Organization Address [facility] de Phone Number [address] [address] * Ferritin (05/11/2025 9:00 AM CDT) Pathologist [facility] Ferritin 71 30 - 400 ng/mL Comment:Testing performed by : [address] [address] Blood 05/11/2025 9:00 AM CDT 05/11/2025 9:35 AM CDT Nena Cano BOILER OUT LAB BLOOD ORDERABLES Final Result Performing Organization Address City/[facility]/ZIP Co de Phone Number [address] [place] [address] * Surgical pathology (05/10/2025 10:54 AM CDT) Tissue (Esophageal biopsy) 05/10/2025 10:54 AM CDT Tissue specimen (specimen) (Esophageal biopsy) 05/10/2025 10:56 AM CDT Narrative PATHOLOGY [facility] - 05/17/2025 3:59 PM CDT [facility] Department of Pathology [address] [place] [id number] Note to Patients: This report may contain [...] : 1950 (Age: 75) Gender: M Address: [address] [place] [address] [facility] #: [id number] Service: Gastro Location: Patient Type: [facility] OUTPATIENT Taken: 05/10/2025 Received: 05/10/2025 Accessioned: 05/10/2025 [...] cm. Entirely submitted. Labeled B1. Jar 0. [facility]/05/10/2025 13:56 SHAD Gonzalez, PA [facility] Microscopic slide review and interpretation for this case was performed at [facility], Department of Surgical Pathology, [address] [facility], [place] [id number], [place] [address] CLIA # [id number] us Lucio Rosas MD LAB PATHOLOGY ORDERABLES Final R esult PATHOLOGY [facility] * EGD (05/10/2025 10:45 AM CDT) Anatomical Region Laterality Modality Other Narrative Procedure Note Lucio Rosas MD - 05/10/2025 10:45 AM CDT [facility] GI ENDOSCOPY Patient Name: Brennen Olson Procedure Date: 05/10/2025 10:45 AM Date of : 1950 Admit Type: Outpatient Age: 75 Gender: Male Attending MD: Lucio Rosas M.D. Room: [facility] ENDOSCOPY ROOM 03 Note Status: Finalized Procedure: [...] On: 05/10/2025 10:45 AM Recognized by the [employer] for promoting quality in endoscopy Lucio Rosas MD ENDOSCOPY PROCEDURES Final Resul t * (ABNORMAL) POC Blood Gas and Chemistries, Venous - (05/10/2025 10:13 AM CDT) pH,kwame POC 7.35 7.32 - 7.43 pCO2, kwame POC 40 40 - 50 mmHg [facility] pO2,kwame POC 32 mmHg [facility] Comment: Interpretive Data No reference range established. Current interpretive data was last revised 2020. HCO3, kwame (Calc) POC 22 20 - 30 mmol/L [facility] Base excess, kwame POC -3 mmol/L [facility] Comment: Interpretive Data No reference range established. Current interpretive data was last revised 2020. Hemoglobin, kwame POC 9.2(L) 13.0 - 17.5 g/dL [facility] Hematocrit, kwame POC 27.0(L) 38.9 - 50.3 % [facility] Sodium, kwame POC 141 135 - 145 mmol/L [facility] Potassium, kwame POC 4.4 3.3 - 4.9 mmol/L [facility] Comment: Interpretive Data This method is not able to assess for hemolysis, which may falsely increase potassium concentrations. If further testing is needed to evaluate this result, consider in-laboratory plasma potassium. Current Interpretive Data was last revised on 2022. Glucose, kwame POC 86 70 - 199 mg/dL [facility] Ionized Calcium, kwame POC 5.10 4.50 - 5.10 mg/dL [facility] Blood 05/10/2025 10:1 3 AM CDT 05/10/2025 10:13 AM CDT Lucio Rosas MD LAB POCT ORDERABLES - DEVICE Fin al Result Performing Organization Address City/State/[facility] Co de Phone Number [facility] [address] [facility] Department [place] [address] * Transfuse RBC (04/26/2025 2:25 PM CDT) Blood Bianca Hunter MD BLOOD TRANSFUSION OR DERABLES Final Result * Prepare RBC: 1 Units (04/26/2025 9:45 AM CDT) [facility] Units requested 1 Comment:Testing performed by : [address] [address] Units requested Ready [facility] Comment:Testing performed by : [address] [address] Unit Number [id number] Product code [id number] [facility] Blood Expiration Date [id number] [facility] Product Blood Type (for scanning) 6200 [facility] Product Blood Type APOS [facility] Dispense Status DISPENSED [facility] Blood 04/26/2025 9:45 AM CDT 04/26/2025 9:45 AM CDT us Bianca Hunter MD BLOOD BANK PRODUCT O RDERABLES Final Result Performing Organization Address [facility] Co de Phone Number ISAAC [address] [email or web address] [address] * (ABNORMAL) eGFR (04/26/2025 9:01 AM CDT) [...] was last reviewed 2021. Testing performed by: [address] [address] Blood 04/26/2025 9:01 AM CDT 04/26/2025 9:02 AM CDT us Bianca Hunter MD LAB BLOOD ORDERABLES Final Result Performing Organization Address City/[facility]/ZIP Co de Phone Number ISAAC [address] [email or web address] [address] * (ABNORMAL) Differential, auto (04/26/2025 9:01 AM CDT) Neutrophil abs 2.29 1.50 - 6.50 K/cumm Comment:Testing performed by : [address] [address] Imm gran abs 0.02 0.00 - 0.10 K/cumm [facility] Comment:Testing performed by : [address] [address] Lymphocyte abs 0.68(L) 0.80 - 3.30 K/cumm CERADAM Comment:Testing performed by : [address] [address] Monocyte abs 0.57 0.20 - 0.80 K/cumm [facility] Comment:Testing performed by : [address], [place]., [address] Eosinophil abs 0.26 0.00 - 0.50 K/cumm [facility] Comment:Testing performed by : [address] [address] Basophil abs 0.03 0.00 - 0.10 K/cumm [facility] Comment:Testing performed by : [address] [address] Neutrophil pct 59.4 % [facility] Comment: Interpretive Data Percent cell count reference ranges are not reported, since discordance with absolute values may lead to misinterpretation of CBC data. Current Interpretive Data was last revised on 2018. Testing performed by: [address] [address] Imm gran pct 0.5 % [facility] Comment: Interpretive Data Percent cell count reference ranges are not reported, since discordance with absolute values may lead to misinterpretation of CBC data. Current Interpretive Data was last revised on 2018. Testing performed by: [address] [address] Lymphocyte pct 17.7 % CERNER Comment: Interpretive Data Percent cell count reference ranges are not reported, since discordance with absolute values may lead to misinterpretation of CBC data. Current Interpretive Data was last revised on 2018. Testing performed by: [address] [address] Monocyte pct 14.8 % CERNER Comment: Interpretive Data Percent cell count reference ranges are not reported, since discordance with absolute values may lead to misinterpretation of CBC data. Current Interpretive Data was last revised on 2018. Testing performed by: [address] [address] Eosinophil pct 6.8 % ISAAC Comment: Interpretive Data Percent cell count reference ranges are not reported, since discordance with absolute values may lead to misinterpretation of CBC data. Current Interpretive Data was last revised on 2018. Testing performed by: [address] [address] Basophil pct 0.8 % [facility] Comment: Interpretive Data Percent cell count reference ranges are not reported, since discordance with absolute values may lead to misinterpretation of CBC data. Current Interpretive Data was last revised on 2018. Testing performed by: [address] [address] Blood 04/26/2025 9:01 AM CDT 04/26/2025 9:02 AM CDT Nena Cano BOILER OUT LAB BLOOD ORDERABLES Final Result Performing Organization Address City/[facility]/ZIP Co de Phone Number [facility] [address] [facility] Department [place] [address] * (ABNORMAL) Iron profile w/ IBC (04/26/2025 9:01 AM CDT) Pathologist [facility] Iron 75 50 - 150 mcg/dL Comment:Testing performed by : [address] [address] TIBC 231(L) 250 - 400 mcg/dL ISAAC Comment:Testing performed by : [address] [address] Transferrin saturation 32 20 - 50 % ISAAC Comment:Testing performed by : [address] [address] Blood 04/26/2025 9:01 AM CDT 04/26/2025 9:51 AM CDT Nena Cano BOILER OUT LAB BLOOD ORDERABLES Final Result Performing Organization Address City/State/[facility] Co de Phone Number ISAAC [address] [facility] Department [place] [address] * (ABNORMAL) CBC with auto differential (04/26/2025 9:01 AM CDT) WBC 3.85 3.80 - 9.90 K/cumm Comment:Testing performed by : [address] [address] Hgb 8.1(L) 13.0 - 17.5 g/dL ISAAC Comment:Testing performed by : [address] [address] Hct 26.2(L) 38.9 - 50.3 % ISAAC Comment:Testing performed by : [address] [address] Plt 199 150 - 400 K/cumm ISAAC Comment:Testing performed by : [address] [address] MPV 8.2(L) 9.1 - 12.3 fL [facility]AC Comment:Testing performed by : [address] [address] RBC 2.64(L) 4.30 - 5.80 M/cumm ISAAC Comment:Testing performed by : [address] [address] MCV 99.2(H) 81.3 - 96.4 fL [facility]AC Comment:Testing performed by : [address] [address] MCH 30.7 27.1 - 33.3 pg [facility]AC Comment:Testing performed by : [address] [address] MCHC 30.9(L) 32.3 - 35.7 g/dL [facility] Comment:Testing performed by : [address] [address] RDW CV 19.6(H) 11.1 - 14.9 % IS[facility]AC Comment:Testing performed by : [address] [address] RDW SD 70.4(H) 35.7 - 48.1 fL [facility]AC Comment:Testing performed by : [address] [address] NRBC abs 0.00 0.00 - 0.01 K/cumm ISAAC Comment:Testing performed by : [address] [address] ANC Prelim 2.29 1.50 - 6.50 K/cumm ISAAC Comment: Interpretive Data The rapid ANC is a preliminary automated count and may vary from the final ANC (Neut Abs) reported in the WBC differential that follows. Current interpretive data was last revised 2025. Testing performed by: [address] [address] Blood 04/26/2025 9:01 AM CDT 04/26/2025 9:02 AM CDT Nena Cano NP LAB BLOOD ORDERABLES Final Result Performing Organization Address [facility] de Phone Number [address] [email or web address] [address] * ABO/Rh (04/26/2025 9:01 AM CDT) [facility] ABO/Rh A Positive Comment:Testing performed by : [address] [address] Blood 04/26/2025 9:01 AM CDT 04/26/2025 9:44 AM CDT Narrative ISAAC - 04/26/2025 10:36 AM CDT Has the patient had Daratumumab or Isatuximab in the past 6 months?->Unknown Nena Cano NP LAB BLOOD BANK TEST ORDERAB LES Final Result Performing Organization Address [facility] Co de Phone Number [address] [place] [address] * (ABNORMAL) Reticulocyte Count (04/26/2025 9:01 AM CDT) [facility] Retics, absolute 126(H) 20 - 87 K/cumm Comment:Testing performed by : [address] [address] Retics 4.8(H) 0.4 - 2.9 % ISAAC Comment:Testing performed by : [address] [address] Reticulocyte Hgb 32.6 30.5 - 38.0 pg [facility]AC Comment:Testing performed by : [address] [address] Blood 04/26/2025 9:01 AM CDT 04/26/2025 9:02 AM CDT Nena Cano NP LAB BLOOD ORDERABLES Final Result Performing Organization Address City/[facility]/ZIP Co de Phone Number [address] [email or web address] [address] * Crossmatch (04/26/2025 9:01 AM CDT) [facility] Crossmatch Compatible [facility] Unit number for crossmatch [id number] [facility] Blood 04/26/2025 9:01 AM CDT 04/26/2025 9:44 AM CDT Bianca Hunter MD LAB BLOOD BANK TEST ORDERABLES Final Result Performing Organization Address City/[facility]/ZIP Co de Phone Number [address] [place] [employer] [address] * Antibody screen (04/26/2025 9:01 AM CDT) [facility] Divina, indirect, Gel Interpretation Negative ABSC Comment:Testing performed by : [address] [address] Blood 04/26/2025 9:01 AM CDT 04/26/2025 9:44 AM CDT Narrative [facility] - 04/26/2025 10:36 AM CDT Has the patient had Daratumumab or Isatuximab in the past 6 months?->Unknown Nena Cano BOILER OUT LAB BLOOD BANK TEST ORDERAB LES Final Result Performing Organization Address City/[facility]/ZIP Co de Phone Number ISAAC [address] [address] * Ferritin (04/26/2025 9:01 AM CDT) Pathologist [facility] Ferritin 47 30 - 400 ng/mL Comment:Testing performed by : [address] [address] Blood 04/26/2025 9:01 AM CDT 04/26/2025 9:51 AM CDT Nena Cano BOILER OUT LAB BLOOD ORDERABLES Final Result Performing Organization Address [facility] de Phone Number ISAAC [address] [address] * (ABNORMAL) Comprehensive metabolic panel (04/26/2025 9:01 AM CDT) Pathologist [facility] Sodium 138 135 - 145 mmol/L Comment:Testing performed by : [address] [address] Potassium, pl 4.3 3.3 - 4.9 mmol/L ISAAC Comment:Testing performed by : [address] [address] Chloride 107 97 - 110 mmol/L [facility] Comment:Testing performed by : [address] [address] CO2 22 22 - 32 mmol/L [facility] Comment:Testing performed by : [address] [address] Anion gap 9 2 - 15 mmol/L [facility] Comment:Testing performed by : [address] [address] BUN 17 6 - 25 mg/dL [facility]AC Comment:Testing performed by : [address] [address] Creatinine 1.60(H) 0.80 - 1.30 mg/dL ISAAC Comment:Testing performed by : [address] [address] Glucose 92 70 - 199 mg/dL ISAAC [...] was last revised 2022. Testing performed by: [address] [address] Calcium 9.2 8.5 - 10.3 mg/dL [facility] Comment:Testing performed by : [address] [address] Bilirubin, total 0.3 0.1 - 1.2 mg/dL [facility] Comment:Testing performed by : [address] [address] Protein, pl 6.3(L) 6.5 - 8.5 g/dL ISAAC Comment:Testing performed by : [address] [address] Albumin 3.6 3.5 - 5.0 g/dL [facility] Comment:Testing performed by : [address] [address] Alk phos 58 40 - 130 Units/L [facility] Comment:Testing performed by : [address] [address] ALT 10 7 - 55 Units/L ISAAC Comment:Testing performed by : [address] [address] AST 14 10 - 50 Units/L [facility]AC Comment:Testing performed by : [address] [address] Blood 04/26/2025 9:01 AM CDT 04/26/2025 9:02 AM CDT Bianca Hunter MD LAB BLOOD ORDERABLES Final Result Performing Organization Address [facility] de Phone Number ISAAC [facility] [place] [address] * Transfuse RBC (04/12/2025 2:07 PM CDT) Blood Eli Toscano BOILER OUT BLOOD TRANSFUSION OR DERABLES Final Result * Prepare RBC: 1 Units (04/12/2025 10:48 AM CDT) Units requested 1 Comment:Testing performed by : [address] [address] Units requested Ready [facility]AAC SERNA Comment:Testing performed by : [address] [address] Unit Number [id number] Product code [id number] ISA[facility] Blood Expiration Date [id number] [facility] Product Blood Type (for scanning) 6200 [facility] Product Blood Type APOS [facility] Dispense Status DISPENSED [facility] Blood 04/12/2025 10:4 8 AM CDT 04/12/2025 10:48 AM CDT Bianca Hunter MD BLOOD BANK PRODUCT O RDERABLES Final Result Performing Organization Address [facility] Co de Phone Number ISAAC [address] Department [place] [address] * Differential, auto (04/12/2025 9:09 AM CDT) Neutrophil abs 2.16 1.50 - 6.50 K/cumm Comment:Testing performed by : [address] [address] Imm gran abs 0.02 0.00 - 0.10 K/cumm [facility]AC SERNA Comment:Testing performed by : [address] [address] Lymphocyte abs 0.81 0.80 - 3.30 K/cumm [facility] Comment:Testing performed by : [address], [place]., [address] Monocyte abs 0.51 0.20 - 0.80 K/cumm [facility] Comment:Testing performed by : [address], [place]., [address] Eosinophil abs 0.19 0.00 - 0.50 K/cumm [facility] Comment:Testing performed by : [address], [place]., [address] Basophil abs 0.04 0.00 - 0.10 K/cumm [facility] Comment:Testing performed by : [address] [address] Neutrophil pct 57.9 % [facility] Comment: Interpretive Data Percent cell count reference ranges are not reported, since discordance with absolute values may lead to misinterpretation of CBC data. Current Interpretive Data was last revised on 2018. Testing performed by: [address] [address] Imm gran pct 0.5 % [facility] Comment: Interpretive Data Percent cell count reference ranges are not reported, since discordance with absolute values may lead to misinterpretation of CBC data. Current Interpretive Data was last revised on 2018. Testing performed by: [address] [address] Lymphocyte pct 21.7 % [facility] Comment: Interpretive Data Percent cell count reference ranges are not reported, since discordance with absolute values may lead to misinterpretation of CBC data. Current Interpretive Data was last revised on 2018. Testing performed by: [address] [address] Monocyte pct 13.7 % [facility] Comment: Interpretive Data Percent cell count reference ranges are not reported, since discordance with absolute values may lead to misinterpretation of CBC data. Current Interpretive Data was last revised on 2018. Testing performed by: [address] [address] Eosinophil pct 5.1 % [facility] Comment: Interpretive Data Percent cell count reference ranges are not reported, since discordance with absolute values may lead to misinterpretation of CBC data. Current Interpretive Data was last revised on 2018. Testing performed by: [address] [address] Basophil pct 1.1 % [facility] Comment: Interpretive Data Percent cell count reference ranges are not reported, since discordance with absolute values may lead to misinterpretation of CBC data. Current Interpretive Data was last revised on 2018. Testing performed by: [address] [address] Blood 04/12/2025 9:09 AM CDT 04/12/2025 9:10 AM CDT Nena Cano LAB BLOOD ORDERABLES Final Result Performing Organization Address [facility] de Phone Number [address] [email or web address] [address] * (ABNORMAL) Iron profile w/ IBC (04/12/2025 9:09 AM CDT) Iron 104 50 - 150 mcg/dL Comment:Testing performed by : [address] [address] TIBC 226(L) 250 - 400 mcg/dL [facility] Comment:Testing performed by : [address] [address] Transferrin saturation 46 20 - 50 % [facility] Comment:Testing performed by : [address] [address] Blood 04/12/2025 9:09 AM CDT 04/12/2025 9:45 AM CDT Nena Cano BOILER OUT LAB BLOOD ORDERABLES Final Result Performing Organization Address [facility] de Phone Number [address] [place] [address] * (ABNORMAL) CBC with auto differential (04/12/2025 9:09 AM CDT) [facility] WBC 3.73(L) 3.80 - 9.90 K/cumm Comment:Testing performed by : [address] [address] Hgb 7.9(L) 13.0 - 17.5 g/dL [facility] Comment:Testing performed by : [address] [address] Hct 25.0(L) 38.9 - 50.3 % [facility] Comment:Testing performed by : [address], [address] Plt 215 150 - 400 K/cumm [facility] Comment:Testing performed by : [address], [address] MPV 8.5(L) 9.1 - 12.3 fL [facility] Comment:Testing performed by : [address], [address] RBC 2.63(L) 4.30 - 5.80 M/cumm [facility] Comment:Testing performed by : [address], [address] MCV 95.1 81.3 - 96.4 fL [facility] Comment:Testing performed by : [address], [address] MCH 30.0 27.1 - 33.3 pg [facility] Comment:Testing performed by : [address], [address] MCHC 31.6(L) 32.3 - 35.7 g/dL [facility] Comment:Testing performed by : [address], [address] RDW CV 20.8(H) 11.1 - 14.9 % ISAAC Comment:Testing performed by : [address], [address] RDW SD 71.6(H) 35.7 - 48.1 fL ISAAC Comment:Testing performed by : [address], [address] NRBC abs 0.00 0.00 - 0.01 K/cumm ISAAC Comment:Testing performed by : [address] [address] ANC Prelim 2.16 1.50 - 6.50 K/cumm ISAAC Comment: Interpretive Data The rapid ANC is a preliminary automated count and may vary from the final ANC (Neut Abs) reported in the WBC differential that follows. Current interpretive data was last revised 2025. Testing performed by: [address] [address] Blood 04/12/2025 9:09 AM CDT 04/12/2025 9:10 AM CDT Nena Cano LAB BLOOD ORDERABLES Final Result Performing Organization Address [facility] Co de Phone Number [address] [place] [address] * ABO/Rh (04/12/2025 9:09 AM CDT) ABO/Rh A Positive Comment:Testing performed by : [address] [address] Blood 04/12/2025 9:09 AM CDT 04/12/2025 9:45 AM CDT Narrative ISAAC - 04/12/2025 10:25 AM CDT Has the patient had Daratumumab or Isatuximab in the past 6 months?->Unknown Nena Cano LAB BLOOD BANK TEST ORDERAB LES Final Result Performing Organization Address [facility] Co de Phone Number [address] [phone] * (ABNORMAL) Reticulocyte Count (04/12/2025 9:09 AM CDT) Retics, absolute 108(H) 20 - 87 K/cumm Comment:Testing performed by : [address] [address] Retics 4.1(H) 0.4 - 2.9 % ISAAC Comment:Testing performed by : [address] [address] Reticulocyte Hgb 34.1 30.5 - 38.0 pg ISAAC Comment:Testing performed by : [facility], [address] [place] [address]., [address] Blood 04/12/2025 9:09 AM CDT 04/12/2025 9:10 AM CDT Nena Cano NP LAB BLOOD ORDERABLES Final Result Performing Organization Address City/[facility]/ZIP Co de Phone Number [address] [place] [address] * Crossmatch (04/12/2025 9:09 AM CDT) Crossmatch Compatible [facility] Unit number for crossmatch [id number] [facility] Blood 04/12/2025 9:09 AM CDT 04/12/2025 9:48 AM CDT Nena Cano NP LAB BLOOD BANK TEST ORDERAB LES Final Result Performing Organization Address City/[facility] Co de Phone Number [address] [address] * Antibody screen (04/12/2025 9:09 AM CDT) Divina, indirect, Gel Interpretation Negative ABSC Comment:Testing performed by : [address] [address] Blood 04/12/2025 9:09 AM CDT 04/12/2025 9:45 AM CDT Narrative [facility] - 04/12/2025 10:43 AM CDT Has the patient had Daratumumab or Isatuximab in the past 6 months?->Unknown Nena Mamta Golec BOILER OUT LAB BLOOD BANK TEST ORDERAB LES Final Result ISAAC [address] [facility] [place] [address] * Ferritin (04/12/2025 9:09 AM CDT) Ferritin 58 30 - 400 ng/mL Comment:Testing performed by : [facility], [address] [place] [address], [place]., [address] Blood 04/12/2025 9:09 AM CDT 04/12/2025 9:45 AM CDT us Nenanupur Cano BOILER OUT LAB BLOOD ORDERABLES Final Result Performing Organization Address [facility] Co de Phone Number ISAAC [address] [facility] [place] [address] * CT Chest Abdomen Pelvis W Contrast (12/13/2024 7:[address] LANDSCAPE ARCHITECT) Anatomical Region Laterality Modality Body N/A Computed Tomogra phy 12/13/2024 7:[address] LANDSCAPE ARCHITECT Impressions 12/13/2024 7:[address] LANDSCAPE ARCHITECT 1. Nondistended esophagus. No discrete esophageal lesion identified to correspond to known malignancy. 2. No evidence of metastatic disease in the chest, abdomen, and pelvis. Electronically signed by: Courtney Johnson M.D. Narrative 12/13/2024 7:[address] LANDSCAPE ARCHITECT EXAMINATION: Computed tomography of the chest, abdomen [...] Res ult * Colonoscopy (11/17/2024 9:[address] LANDSCAPE ARCHITECT) Anatomical Region Laterality Modality Other Narrative Procedure Note Lucio Rosas MD - 11/17/2024 9:34 AM CST [facility] GI ENDOSCOPY Patient Name: Brennen Olson Procedure Date: 11/17/2024 9:34 AM Date of : 1950 Admit Type: Outpatient Age: 74 Gender: Male Attending MD: Lucio Rosas M.D. Room: [facility] ENDOSCOPY ROOM 03 Note Status: Finalized Procedure: [...] The scope was passed under direct vision.The [id number]-[id number] colonoscope was introduced through theanus and advanced to the cecum, identified byappendiceal orifice and ileocecal valve. The scope was passed under direct vision. The [id number]-[id number] colonoscope was introduced through the and advanced [...] On: 11/17/2024 9:34 AM Recognized by the [place] [employer] for promoting quality in endoscopy us Lucio Rosas MD ENDOSCOPY PROCEDURES Final Resul t from Last 3 Months or Most Recently Relevant to Health Maintenance Insurance [facility] MEDICARE ADVANTAGE MEDICARE [facility] MEDICARE ADVANTAGE Advance Directives For more information, please contact: [phone] * Full Code (Latest Code Status on File) Date Activated Date Inactivated Comments 06/28/2025 12:51 PM 06/28/2025 6:18 PM * Full Code Date Activated Date Inactivated Comments 06/19/2025 8:50 AM 06/19/2025 3:56 PM * Full Code Date Activated Date Inactivated Comments 01/11/2025 10:34 AM 01/12/2025 5:08 AM * Full Code Date Activated Date Inactivated Comments 12/13/2024 8:18 AM 12/13/2024 5:22 PM Care Teams Cap Coverer Relationship Specialty Start Date End Date Jas Alcala MD [address] [place] [address] PCP - General Internal Medicine 01/04/25 Lucio Rosas MD [address] [address] Consulting Physician Gastroenterology 11/28/24 Hero Pinedo MD [address] [place] [address] Radiation Oncologist Radiation Oncology 12/28/24 Lon Tomas MD [address] [place] [address] Consulting Physician Urology 01/04/25 Jaycee Teresa MD [address] [place] [address] Consulting Physician Cardiology 01/09/25 Francisco Jones DO [address] [place] [address] Medical Oncologist/Hematologis t Hematology and Oncology 06/03/25
--- OUTSIDE RECORDS SUMMARY | 2025-07-12 10:47 | XMS_ITS | Clinical Summary ---
Author Organization [facility] Address [address] [place] [address] Care Team Providers Care Digital Business Analyst Name Role Phone Jas Alcala MD Primary Care Provider [phone] Allergies Active Allergy Reactions Criticality Noted Date [...] (06/17/2022): Added automatically from request for surgery [id number] Family History Medical History Relation Comments Cancer [...] 2) 01/18/2000 Annual Medicare Wellness Visit 2015 RSV Immunization or 60+ Years (1 - 1-dose 75+ series) 2025 COVID-19 Vaccine ( - 2024- season) 2025 11/05/2021, 10/21/2021, 01/01/2021, Additional history exists Meningococcal B Vaccine Aged Out No l onger eligible based on patient's age to complete this topic Meningococcal Vaccine Aged Out No rufus gretta eligible based on patient's age to complete this topic RSV Immunizations Under 20 Months Aged Out No longer eligible based on patient's age to complete this topic Insurance Care Teams Digital Business Analyst Relationship Specialty Start Date End Date Jas Alcala MD PCP - General INTERNAL MEDICINE 02/11/22
--- OUTSIDE RECORDS SUMMARY | 2025-07-12 10:47 | XMS_ITS | Encounter Summary ---
Author Organization [facility] Healthcare Address [address] [place] [address] Care Team Providers Care Mortgage Professional Name Role Phone Jas Alcala MD Primary Care Provider [phone] Lucio Rosas MD Unavailable Bianca Hunter MD Unavailable + [phone] Hero Pinedo MD Unavailable [phone] Jas Alcala MD Primary Care Provider + [phone] Lon Tomas MD Unavailable [phone] Jaycee Teresa MD Unavailable [phone] Francisco Jones DO Unavailable [phone] Encounter Details Date Type Department Care Team (Late st Contact Info) Description 05/07/2022 Orders Only [facility] Cardiac Catheterization Lab [address] [place] [address] Bryon Potter MD [address] [place] [address] Social History Tobacco Use Types [...] on file Legal Sex Male 9:38 AM ELIGIBILITY SERVICES REPRESENTATIVE Gender Identity Not on file Sexual Orientation Not on file 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 Not on file Not on file 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 Not on file Not on file Not on file documented as of this encounter Plan of Treatment Upcoming Encounters Date Type Department Care Team (Latest Contact Info) Description 07/13/2025 10:00 AM CDT Hospital Encounter [facility] Medical Office Building [address] [place] [address] 07/21/2025 10:30 AM CDT Hospital Encounter [facility] [place] [address] [address] Jerry Peguero MD [address] [address] 07/21/2025 10:30 AM CDT - 07/21/2025 11:00 AM CDT Surgery [facility] [place] [id number] [address] [address] Jerry Peguero MD [address] [address] ESOPHAGOGASTRODUODENOSCOPY cryo Scheduled Procedures Name Priority Associated Diagnoses Date/Ti ca ESOPHAGOGASTRODUODENOSCOPY Malignant neoplasm of lower third of esophagus (HCC) 07/21/2025 10:30 AM CDT documented as of this encounter Visit Diagnoses Not on filedocumented in this encounter Care Teams Mortgage Professional Relationship Specialty Start Date End Date Jas Alcala MD PCP - General Internal Medicine 02/26/18 01/03/25 Jas Alcala MD [address] [place] [address] PCP - General Internal Medicine 01/04/25 Lucio Rosas MD [address] [facility] [address] [place] [address] Consulting Physician Gastroenterology 11/28/24 Bianca Hunter MD [address] [facility] [address] [place] [address] Medical Oncologist/Hematologis t Medical Oncology 12/07/24 06/02/25 Hero Pinedo MD [address] [place] [id number] Radiation Oncologist Radiation Oncology 12/28/24 Lon Tomas MD [address] [place] [address] Consulting Physician Urology 01/04/25 Jaycee Teresa MD [address] [place] [address] Consulting Physician Cardiology 01/09/25 Francisco Jones DO [address] [place] [id number] Medical Oncologist/Hematologis t Hematology and Oncology 06/03/25 documented as of this encounter
--- OUTSIDE RECORDS SUMMARY | 2025-07-12 10:47 | XMS_ITS | Encounter Summary ---
Author Organization [facility] Healthcare Address [address] [place] [address] Care Team Providers Care Archaeologist Name Role Phone Lucio Rosas MD Unavailable Bianca Hunter MD Unavailable [phone] Heor Pinedo MD Unavailable [phone] Jas Alcala MD Primary Care Provider + [phone] Lon Tomas MD Unavailable [phone] Jaycee Teresa MD Unavailable [phone] Francisco Jones DO Unavailable [phone] Encounter Details Date Type Department Care Team (Latest Contact Info) Description 05/19/2025 Results Follow-Up [facility] Gastroenterology at [address] [place] [address] Lucio Rosas MD [address] [place] [address] [address] [place] [address] Surgical pathology Social History Tobacco Use Types [...] on file 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 Gender Identity Not on file Sexual Orientation Not on file 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 Not on file Not on file 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 Not on file Not on file Not on file documented as of this encounter Plan of Treatment Upcoming Encounters Date Type Department Care Team (Latest Contact Info) Description 07/13/2025 10:00 AM CDT Hospital Encounter [facility] Medical Office Building [address] [address] 07/21/2025 10:30 AM CDT Hospital Encounter [facility] [address] [address] Jerry Peguero MD [address] [address] 07/21/2025 10:30 AM CDT - 07/21/2025 11:00 AM CDT Surgery [facility] [address] [address] Jerry Peguero MD [address] [address] ESOPHAGOGASTRODUODENOSCOPY cryo Scheduled Procedures Name Priority Associated Diagnoses Date/Ti ut ESOPHAGOGASTRODUODENOSCOPY Malignant neoplasm of lower third of esophagus (HCC) 07/21/2025 10:30 AM CDT documented as of this encounter Visit Diagnoses Not on filedocumented in this encounter Care Teams Archaeologist Relationship Specialty Start Date End Date Jas Alcala MD [address] [place] [address] [place] [address] PCP - General Internal Medicine 01/04/25 Lucio Rosas MD [address] [facility] [address] [place] [address] Consulting Physician Gastroenterology 11/28/24 Bianca Hunter MD [address] [facility] [address] [place] [address] Medical Oncologist/Hematologis t Medical Oncology 12/07/24 06/02/25 Hero Pinedo MD [address] [place] [address] Radiation Oncologist Radiation Oncology 12/28/24 Lon Tomas MD [address] [place] [address] Consulting Physician Urology 01/04/25 Jaycee Teresa MD [address] [place] [address] Consulting Physician Cardiology 01/09/25 Francisco Jones DO [address] [place] [address] Medical Oncologist/Hematologis t Hematology and Oncology 06/03/25 documented as of this encounter
--- OUTSIDE RECORDS SUMMARY | 2025-07-12 10:47 | XMS_ITS | Clinical Summary ---
Author Organization [facility] [employer] Address [address] [facility] [place] [address] Care Team Providers Care Education Program Associate Name Role Phone Jas Alcala MD Unavailable [phone] Jas Alcala MD Primary Care Provider [phone] Source Comments [facility],non-owned Affiliates and Associated Physician Practices is amultiple site organization consisting of ambulatory clinics and hospital sitesin [place], [place], [place] and [place]. This disclosure is being madepursuant to the Care Everywhere program and may not contain all information available regarding this patient. 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 Gender Identity Not on file Sexual Orientation Not on file Last Filed Vital Signs Vital Sign Reading Time Taken Comments Blood Pressure 150/99 10/22/2010 2:45 PM PROGRAM ASSISTANT Pulse 68 10/22/2010 2:45 PM PROGRAM ASSISTANT Temperature 36.6 C (97.8 F) 10/22/2010 2:45 PM PROGRAM ASSISTANT Respiratory Rate 16 10/22/2010 2:45 PM PROGRAM ASSISTANT Oxygen Saturation 97% 10/22/2010 2:45 PM PROGRAM ASSISTANT Inhaled Oxygen Concentration - - Weight 129.7 kg (286 lb) 10/22/2010 7:02 AM PROGRAM ASSISTANT Height 182.9 cm (6') 10/22/2010 7:02 AM PROGRAM ASSISTANT Body Mass Index 38.79 10/22/2010 7:02 AM PROGRAM ASSISTANT Plan of Treatment Health Maintenance Due Date [...] 2:20 PM 10/23/2010 7:05 AM Care Teams Education Program Associate Relationship Specialty Start Date End Date Jas Alcala MD [address] [place] [address] PCP - General 10/22/10 Jas Alcala MD Internal Medicine 09/23/10
--- OUTSIDE RECORDS SUMMARY | 2025-07-12 10:47 | XMS_ITS | Clinical Summary ---
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 Gender Identity Not on file Sexual Orientation Not on file Last Filed Vital Signs Vital Sign Reading Time Taken Comments Blood Pressure 142/62 12/29/2019 2:51 PM STRATEGIC PLANNING DIRECTOR Pulse 62 12/29/2019 2:51 PM STRATEGIC PLANNING DIRECTOR Temperature 36.4 C (97.6 F) 12/29/2019 2:51 PM STRATEGIC PLANNING DIRECTOR Respiratory Rate 18 12/29/2019 2:51 PM STRATEGIC PLANNING DIRECTOR Oxygen Saturation 99% 12/29/2019 2:51 PM STRATEGIC PLANNING DIRECTOR Inhaled Oxygen Concentration - - Weight 137 kg (302 lb) 12/29/2019 2:51 PM STRATEGIC PLANNING DIRECTOR Height 182.9 cm (6') 12/29/2019 2:51 PM STRATEGIC PLANNING DIRECTOR Body Mass Index 40.96 12/29/2019 2:51 PM STRATEGIC PLANNING DIRECTOR Plan of Treatment Health Maintenance Due Date [...] age to complete this topic Care Teams Staining Machine Operator Relationship Specialty Start Date End Date Jas Alcala MD PCP - General Internal Medicine 11/09/19
== END 2025-07-12 09:54 | disposition home or self-care (01) ==
PROVIDERS: PCP Internal Medicine; Visit Provider Internal Medicine
DX: Z79.01 Long term (current) use of anticoagulants (principal); I10 Essential (primary) hypertension
CPT/HCPCS: 36415; 80053; 85025; 85610

== ENCOUNTER 2025-07-24 15:32 | Outpatient (CLI) | payer MEDICARE, SELFPAY ==
--- OUTSIDE RECORDS SUMMARY | 2005-09-16 19:00 | XMS_ITS | Continuity of Care Document ---
Author Organization [facility] Address [id number] [place] [phone] Phone Care Team Providers Care Heavy Duty Mechanic Name Role Phone Ran Sosa MD Unavailable Unavailable Advance Directives Directive Yes / No Effective Date File Name No Information Encounters Encounter Description Practice Location Reason(s) For Visit Diagnoses Date Provider Providers Copied on Encounter [facility], [address] [facility], [place], [place], [address], tel:[phone] [facility] CERVICAL DISC DISPLACMNT Sheila Tong. [address] , [place], [place], [address], [place]. tel:[phone] [facility], [address] [facility], [place], [place], [address], tel:[phone] [facility] (Ip) FOLLOW-UP SURGERY NOS Conversion Doctor. [address] [place] [address], [address], . [facility], [address], [place], [place], [address], tel:[phone] [facility] ([facility]) LUMB/LUMBOSA C DISC DEGEN Conversion Doctor. [address] [place] [address], [facility], . Family History Family Member Type Diagnosis Age At Onset No Information Payers Payer name Insurance type Covered republican ID Authoriza tion(s) No Information Social History [...]
--- OUTSIDE RECORDS SUMMARY | 2010-03-05 10:00 | XMS_ITS | Continuity of Care Document ---
Author Organization [facility] Address [address] [place] [address] Phone Care Team Providers Care Entry Level Management Name Role Phone Bijan Rabago Unavailable Unavailable Procedures Procedure Date Eye Exam, New Patient Refraction Advance Directives Directive Yes / No Effective Date File Name No Information Encounters Encounter Description Practice Location Reason(s) For Visit Diagnoses Date Provider Providers Copied on Encounter [facility], [address], [place], [place], [address], [place] tel:[phone] [facility] No Information 4-201 0 Kamleshsantiago Thakkar. [address] [facility] [address], [place], [address], [place]. tel:[phone] Family History Family Member Type Diagnosis Age At Onset No Information Payers Payer name Insurance type Covered green party ID Authoriza tikika(s) [facility] Commercial CI [id number] Social History Type Description Quantity Date Captured [...]
--- OUTSIDE RECORDS SUMMARY | 2025-07-24 15:38 | XMS_ITS | Clinical Summary ---
Author Organization [facility] Address [address] [place] [address] Care Team Providers Care Food Inspector Name Role Phone Jas Alcala MD Primary Care Provider [phone] Allergies Active Allergy Reactions Criticality Noted Date [...] (06/17/2022): Added automatically from request for surgery [id number] Family History Medical History Relation Comments Cancer [...] to complete this topic Insurance Care Teams Food Inspector Relationship Specialty Start Date End Date Jas Alcala MD PCP - General INTERNAL MEDICINE 02/11/22
--- OUTSIDE RECORDS SUMMARY | 2025-07-24 15:38 | XMS_ITS | Clinical Summary ---
Author Organization [facility] [employer] Address [address] [place] [address] Care Team Providers Care Chrome Cleaner Name Role Phone Jas Alcala MD Unavailable [phone] Jas Alcala MD Primary Care Provider [phone] Source Comments [facility],non-owned Affiliates and Associated Physician Practices is amultiple site organization consisting of ambulatory clinics and hospital sitesin [place], [place]. This disclosure is being madepursuant to the Care Everywhere program and may not contain all information available regarding this patient. 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 Gender Identity Not on file Sexual Orientation Not on file Last Filed Vital Signs Vital Sign Reading Time Taken Comments Blood Pressure 150/99 10/22/2010 2:45 PM BIOLOGICAL TECHNICAL OFFICER Pulse 68 10/22/2010 2:45 PM BIOLOGICAL TECHNICAL OFFICER Temperature 36.6 C (97.8 F) 10/22/2010 2:45 PM BIOLOGICAL TECHNICAL OFFICER Respiratory Rate 16 10/22/2010 2:45 PM BIOLOGICAL TECHNICAL OFFICER Oxygen Saturation 97% 10/22/2010 2:45 PM BIOLOGICAL TECHNICAL OFFICER Inhaled Oxygen Concentration - - Weight 129.7 kg (286 lb) 10/22/2010 7:02 AM BIOLOGICAL TECHNICAL OFFICER Height 182.9 cm (6') 10/22/2010 7:02 AM BIOLOGICAL TECHNICAL OFFICER Body Mass Index 38.79 10/22/2010 7:02 AM BIOLOGICAL TECHNICAL OFFICER Plan of Treatment Health Maintenance Due Date [...] 2:20 PM 10/23/2010 7:05 AM Care Teams Chrome Cleaner Relationship Specialty Start Date End Date Jas Alcala MD [address] [place] [address] PCP - General 10/22/10 Jas Alcala MD Internal Medicine 09/23/10
--- OUTSIDE RECORDS SUMMARY | 2025-07-24 15:38 | XMS_ITS | Clinical Summary ---
Author Organization 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 Gender Identity Not on file Sexual Orientation Not on file Last Filed Vital Signs Vital Sign Reading Time Taken Comments Blood Pressure 142/62 12/29/2019 2:51 PM LOAN REVIEW OFFICER Pulse 62 12/29/2019 2:51 PM LOAN REVIEW OFFICER Temperature 36.4 C (97.6 F) 12/29/2019 2:51 PM LOAN REVIEW OFFICER Respiratory Rate 18 12/29/2019 2:51 PM LOAN REVIEW OFFICER Oxygen Saturation 99% 12/29/2019 2:51 PM LOAN REVIEW OFFICER Inhaled Oxygen Concentration - - Weight 137 kg (302 lb) 12/29/2019 2:51 PM LOAN REVIEW OFFICER Height 182.9 cm (6') 12/29/2019 2:51 PM LOAN REVIEW OFFICER Body Mass Index 40.96 12/29/2019 2:51 PM LOAN REVIEW OFFICER Plan of Treatment Health Maintenance Due [...] age to complete this topic Care Teams Postdoctoral Fellow Relationship Specialty Start Date End Date Jas Alcala MD PCP - General Internal Medicine 11/09/19
[2025-07-24 17:24] LABS: Hematocrit 33.3 % (42.0-52.0); Hemoglobin 10.1 g/dL (14.0-18.0); Immature Granulocyte Percent A 0.7 % (0-0.5); Lymphocytes Absolute Auto 0.94 K/mm3 (0.9-3.2); Mean Corpuscular HGB Conc 30.3 g/dl (32-36); Mean Corpuscular Hemoglobin 29.6 pg (26-34); Mean Corpuscular Volume 97.7 fl (80-100); Nucleated Red Blood Cells Absolute Auto 0.000 K/mm3 (0.0-0.012); Nucleated Red Blood Cells Perc 0.0 % (0.0-0.2); Platelet Count Result 225 k/mm3 (150-375); Red Blood Count 3.41 M/mm3 (4.6-6.20); White Blood Count 4.1 K/mm3 (4.5-10.0)
[2025-07-24 17:38] LABS: Alanine Aminotransferase 14 U/L (6-50); Albumin Level 3.9 g/dL (3.5-5.1); Alkaline Phosphatase 75 U/L (38-126); Anion Gap 9 mmol/L (4-12); Aspartate Amino Transferase 26 U/L (17-59); Bilirubin,Total 0.3 mg/dL (0.2-1.3); Blood Urea Nitrogen 20 mg/dL (9-20); Calcium 8.9 mg/dL (8.4-10.2); Carbon Dioxide 22 mmol/L (22-30); Chloride 106 mmol/L (98-107); Estimated Glomerular Filt Rate 46; Glucose 82 mg/dL (65-110); Potassium 4.6 mmol/L (3.4-5.0); Sodium 137 mmol/L (137-145); Total Protein 7.1 g/dL (6.3-8.2)
[2025-07-24 17:45] LABS: INR 1.5; Prothrombin Time 18.5 Seconds (11.1-14.7)
== END 2025-07-24 15:33 | disposition home or self-care (01) ==
LOC: ANHLAB 15:34
PROVIDERS: PCP Internal Medicine; Visit Provider Internal Medicine
DX: E78.5 Hyperlipidemia, unspecified (principal); Z79.01 Long term (current) use of anticoagulants; I10 Essential (primary) hypertension
CPT/HCPCS: 36415; 80053; 85025; 85610

== ENCOUNTER 2025-08-28 08:45 | Outpatient (CLI) | payer MEDICARE, SELFPAY ==
--- OUTSIDE RECORDS SUMMARY | 2025-08-28 09:25 | XMS_ITS | Data Portability ---
Author Organization [facility] Cecile [facility] Address [address] [place] [address] Care Team Providers Care Rn Hemodialysis Charge Name Role Phone CLEVE MARIEE Urologist KOKI HAMILTON Internal Combustion Engine Inspector [phone] BUBBA ALCALA Primary Care Provider [phone] Assessment Encounter Date Assessment Date Assessment LastModified by Organization Details LastModified Time 07/12/2024 07/12/2024 flu shot continu e current therapy all questions have been answered follow up in 4 months Not available 07/30/2024 21:44:40 12/08/2024 12/08/2024 GI to see prep f or proctitis blood work including pro time and [...] 07 he will start Lovenox q.a.m. 1 milligram/kilogram on December 09 he will continue that [...] has been cleared to have the endoscopies [email or web address] Not available 12/08/2024 21:25:29 03/16/2025 03/16/2025 We will continue current therapy start 2.5 mg Coumadin daily every other day start March 17 PT INR this coming Thursday diagnosis and assessment and plan have been discussed we will see me back in 6 weeks other medicines continue [email or web address] Not available 03/16/2025 14:49:21 04/27/2025 04/27/2025 Health risk assessments reviewed diagnosis and assessment and plan reviewed we will continue current therapy all questions have been answered healthy lifestyle care instructions maintained on medicines for V-tach inflammatory bowel disease appears to be stable all questions have been answered we will move forward with continuing current therapy follow up with me in 3 months [email or web address] Not available 04/29/2025 16:19:08 07/24/2025 07/24/2025 We will give him a flu shot today blood work has been ordered CBC CMP and a PT INR he has been bridged for possible procedure right now the procedures not scheduled I just need to get his INR up so we can discontinue the Lovenox his other medical problems appear to be stable history of PE DVT discussed inflammatory bowel disease dyslipidemia anticoagulation all discussed in detail [email or web address] Not available 07/24/2025 22:10:11 Plan of Treatment Reminders Order Date Submit Date Provider Last Modified By Organization Details Last Modified Time Details Appointments ANY 15 2024 02:15P Venkat Alcala MD Not available Not available Not available Lab PT/INR 2024 025 [facility], [address], [place], [address], 07/28/2025 14:54:21 CMP, serum or plasma 2024 025 [facility], [address], [place], [address], 07/28/2025 09:55:28 CBC w/ auto diff 2024 025 [facility], [address], [place], [address], 07/25/2025 12:49:13 Referral None recorded . Procedures None recorded . Surgeries None recorded . Imaging None recorded . Medication Orders None recorded . Patient TargetsNo targets recorded. Patient Instructions Encounter Date Encounter Id Patient Instructions Last Modified By Organization Details Last Modified Time 03/16/2025 [id number] A healthy lifestyle: care instructions [email or web address] Not available 03/16/2025 14:49:56 04/27/2025 [id number] advance care planning: care instructions [email or web address] Not available 04/29/2025 16:19:45 preventing falls : care instructions Not available 04/29/2025 16:19:45 Quitting Tobacco : Care Instructions [email or web address] Not available 04/29/2025 16:19:45 Medicare Wellnes s Preventive Checklist [email or web address] Not available 04/29/2025 16:19:45 eating healthy foods: care instructions [email or web address] Not available 04/29/2025 16:19:45 AD8 Dementia Screening Interview Not available 04/29/2025 16:19:45 A healthy lifestyle: care instructions Not available 04/27/2025 16:06:32 07/24/2025 [id number] A healthy lifestyle: care instructions [email or web address] Not available 07/24/2025 15:36:50 Reason for Referral None Reported. Results Created Date Observation Date Name Description Value Unit Range Abnormal Flag Note LastModifiedBy Organization Detail LastModifiedTime 12/19/1912/20/2024 BASIC METAB OLIC PANEL (7) glucose 122 mg/dL 70-99 above high normal Not Available [facility] ([facility]) [address] [facility], [place], [address], 12/20/2024 09:08:30 12/19/1912/20/2024 BASIC METAB OLIC PANEL (7) BUN 13 mg/dL 8-27 Not Available [facility] ([facility]) [address] [facility], [place], [address], 12/20/2024 09:08:30 12/19/1912/20/2024 BASIC METAB OLIC PANEL (7) creatinine 1.81 mg/dL 0.76-1 .27 above high normal Not Available [facility] ([facility]) [address] [facility] [place], [address], 12/20/2024 09:08:30 12/19/19 25 12/20/2024 BASIC METAB OLIC PANEL (7) eGFR 39 mL/mi n/1.7 3 >59 below low normal Not Available [facility] ([facility]) [address] [place], [address], 12/20/2024 09:08:30 12/19/19 25 12/20/2024 BASIC METAB OLIC PANEL (7) BUN/creatini ne ratio 7 10-24 below low normal Not Available [facility] ([facility]) [address] [place], [address], 12/20/2024 09:08:30 12/19/19 25 12/20/2024 BASIC METAB OLIC PANEL (7) sodium 139 mmol/ L 134-14 4 Not Available [facility] ([facility]) [address] [place], [address], 12/20/2024 09:08:30 12/19/19 25 12/20/2024 BASIC METAB OLIC PANEL (7) potassium 4.5 mmol/ L 3.5-5. 2 Not Available [facility] ([facility]) [address] [place], [address], 12/20/2024 09:08:30 12/19/19 25 12/20/2024 BASIC METAB OLIC PANEL (7) chloride 108 mmol/ L 96-106 above high normal Not Available [facility] ([facility]) [address] [place], [address], 12/20/2024 09:08:30 12/19/19 25 12/20/2024 BASIC METAB OLIC PANEL (7) carbon dioxide, total 19 mmol/ L 20-29 below low normal Not Available [facility] ([facility]) [address] [facility], [place], [address], 12/20/2024 09:08:30 12/19/1912/20/2024 PROTH ROMBI N TIME [...] range 2.5 - 3.5 Not Available [facility] ([facility]) [address] [facility], [place], [address], 12/20/2024 09:08:32 12/19/1912/20/2024 PROTH ROMBI N TIME (PT) prothrombin time 13.6 sec 9.1-12 .0 above high normal Not Available [facility] ([facility]) [address] [place], [address], 12/20/2024 09:08:32 12/19/1912/20/2024 CBC, PLATE LET, NO DIFFE RENTI AL WBC 4.6 x10e3 /uL 3.4-10 .8 Not Available [facility] ([facility]) [address] [place], [address], 12/20/2024 09:08:33 12/19/1912/20/2024 CBC, PLATE LET, NO DIFFE RENTI AL RBC 3.10 x10e6 /uL 4.14-5 .80 below low normal Not Available [facility] ([facility]) [address] [place], [address], 12/20/2024 09:08:33 12/19/1912/20/2024 CBC, PLATE LET, NO DIFFE RENTI AL hemoglobin 9.1 g/dL 13.0-1 7.7 below low normal Not Available [facility] ([facility]) [address] [facility], [place], [address], 12/20/2024 09:08:33 12/19/1912/20/2024 CBC, PLATE LET, NO DIFFE RENTI AL hematocrit 30.5 % 37.5-5 1.0 below low normal Not Available [facility] ([facility]) [address] [facility], [place], [address], 12/20/2024 09:08:33 12/19/1912/20/2024 CBC, PLATE LET, NO DIFFE RENTI AL MCV 98 fL 79-97 above high normal Not Available [facility] ([facility]) [address] [facility], [place], [address], 12/20/2024 09:08:33 12/19/1912/20/2024 CBC, PLATE LET, NO DIFFE RENTI AL MCH 29.4 pg 26.6-3 3.0 Not Available [facility] ([facility]) [address] [place], [address], 12/20/2024 09:08:33 12/19/1912/20/2024 CBC, PLATE LET, NO DIFFE RENTI AL MCHC 29.8 g/dL 31.5-3 5.7 below low normal Not Available [facility] ([facility]) [address] [place], [address], 12/20/2024 09:08:33 12/19/1912/20/2024 CBC, PLATE LET, NO DIFFE RENTI AL RDW 14.6 % 11.6-1 5.4 Not Available [facility] ([facility]) [address] [place], [address], 12/20/2024 09:08:33 12/19/1912/20/2024 CBC, PLATE LET, NO DIFFE RENTI AL platelets 300 x10e3 /uL 150-45 0 Not Available [facility] ([facility]) [address] [facility] [place], [address], 12/20/2024 09:08:33 05/15/20 25 05/16/2025 COMP. METAB OLIC PANEL (14) glucose 87 mg/dL 70-99 Not Available [facility] ([facility]) [address] [facility] [place], [address], 05/16/2025 11:09:08 05/15/20 25 05/16/2025 COMP. METAB OLIC PANEL (14) BUN 18 mg/dL 8-27 Not Available [facility] ([facility]) [address] [facility] [place], [address], 05/16/2025 11:09:08 05/15/20 25 05/16/2025 COMP. METAB OLIC PANEL (14) creatinine 1.52 mg/dL 0.76-1 .27 above high normal Not Available [facility] ([facility]) [address] [facility] [place], [address], 05/16/2025 11:09:08 05/15/20 25 05/16/2025 COMP. METAB OLIC PANEL (14) eGFR 47 mL/mi n/1.7 3 >59 below low normal Not Available [facility] ([facility]) [address] [place], [address], 05/16/2025 11:09:08 05/15/20 25 05/16/2025 COMP. METAB OLIC PANEL (14) BUN/creatini ne ratio 12 10-24 Not Available [facility] ([facility]) [address] [place], [address], 05/16/2025 11:09:08 05/15/20 25 05/16/2025 COMP. METAB OLIC PANEL (14) sodium 140 mmol/ L 134-14 4 Not Available [facility] ([facility]) [address] [place], [address], 05/16/2025 11:09:08 05/15/20 25 05/16/2025 COMP. METAB OLIC PANEL (14) potassium 5.1 mmol/ L 3.5-5. 2 Not Available [facility] ([facility]) [address] [place], [address], 05/16/2025 11:09:08 05/15/20 25 05/16/2025 COMP. METAB OLIC PANEL (14) chloride 108 mmol/ L 96-106 above high normal Not Available [facility] ([facility]) [address] [place], [address], 05/16/2025 11:09:08 05/15/20 25 05/16/2025 COMP. METAB OLIC PANEL (14) carbon dioxide, total 19 mmol/ L 20-29 below low normal Not Available [facility] ([facility]) [address] [place], [address], 05/16/2025 11:09:08 05/15/20 25 05/16/2025 COMP. METAB OLIC PANEL (14) calcium 9.3 mg/dL 8.6-10 .2 Not Available [facility] ([facility]) [address] [place], [address], 05/16/2025 11:09:08 05/15/20 25 05/16/2025 COMP. METAB OLIC PANEL (14) protein, total 6.5 g/dL 6.0-8. 5 Not Available [facility] ([facility]) [address] [place], [address], 05/16/2025 11:09:08 05/15/20 25 05/16/2025 COMP. METAB OLIC PANEL (14) albumin 3.9 g/dL 3.8-4. 8 Not Available [facility] ([facility]) [address] [place], [address], 05/16/2025 11:09:08 05/15/20 25 05/16/2025 COMP. METAB OLIC PANEL (14) globulin, total 2.6 g/dL 1.5-4. 5 Not Available [facility] ([facility]) [address] [facility], [place], [address], 05/16/2025 11:09:08 05/15/20 25 05/16/2025 COMP. METAB OLIC PANEL (14) bilirubin, total <0.2 mg/dL 0.0-1. 2 Not Available [facility] ([facility]) [address] [facility], [place], [address], 05/16/2025 11:09:08 05/15/20 25 05/16/2025 COMP. METAB OLIC PANEL (14) alkaline phosphatase 64 IU/L 44-121 Not Available [facility] ([facility]) [address] [facility], [place], [address], 05/16/2025 11:09:08 05/15/20 25 05/16/2025 COMP. METAB OLIC PANEL (14) AST (SGOT) 24 IU/L 0-40 Not Available [facility] ([facility]) [address] [facility], [place], [address], 05/16/2025 11:09:08 05/15/20 25 05/16/2025 COMP. METAB OLIC PANEL (14) ALT (SGPT) 17 IU/L 0-44 Not Available [facility] ([facility]) [address] [facility], [place], [address], 05/16/2025 11:09:08 05/15/20 25 05/16/2025 CBC WITH DIFFE RENTI AL/PL ATELE T WBC 4.8 x10e3 /uL 3.4-10 .8 Not Available [facility] ([facility]) [address] [facility], [place], [address], 05/16/2025 11:09:09 05/15/20 25 05/16/2025 CBC WITH DIFFE RENTI AL/PL ATELE T RBC 3.45 x10e6 /uL 4.14-5 .80 below low normal Not Available [facility] ([facility]) [address] [place], [address], 05/16/2025 11:09:09 05/15/20 25 05/16/2025 CBC WITH DIFFE RENTI AL/PL ATELE T hemoglobin 10.6 g/dL 13.0-1 7.7 below low normal Not Available [facility] ([facility]) [address] [place], [address], 05/16/2025 11:09:09 05/15/20 25 05/16/2025 CBC WITH DIFFE RENTI AL/PL ATELE T hematocrit 36.1 % 37.5-5 1.0 below low normal Not Available [facility] ([facility]) [address] [place], [address], 05/16/2025 11:09:09 05/15/20 25 05/16/2025 CBC WITH DIFFE RENTI AL/PL ATELE T MCV 105 fL 79-97 above high normal Not Available [facility] ([facility]) [address] [place], [address], 05/16/2025 11:09:09 05/15/20 25 05/16/2025 CBC WITH DIFFE RENTI AL/PL ATELE T MCH 30.7 pg 26.6-3 3.0 Not Available [facility] ([facility]) [address] [place], [address], 05/16/2025 11:09:09 05/15/20 25 05/16/2025 CBC WITH DIFFE RENTI AL/PL ATELE T MCHC 29.4 g/dL 31.5-3 5.7 below low normal Not Available [facility] ([facility]) [address] [place], [address], 05/16/2025 11:09:09 05/15/20 25 05/16/2025 CBC WITH DIFFE RENTI AL/PL ATELE T RDW 17.6 % 11.6-1 5.4 above high normal Not Available [facility] ([facility]) [address] [facility], [place], [address], 05/16/2025 11:09:09 05/15/20 25 05/16/2025 CBC WITH DIFFE RENTI AL/PL ATELE T platelets 240 x10e3 /uL 150-45 0 Not Available [facility] ([facility]) [address] [facility], [place], [address], 05/16/2025 11:09:09 05/15/20 25 05/16/2025 CBC WITH DIFFE RENTI AL/PL ATELE T neutrophils 66 % notest ab. Not Available [facility] ([facility]) [address] [facility], [place], [address], 05/16/2025 11:09:09 05/15/20 25 05/16/2025 CBC WITH DIFFE RENTI AL/PL ATELE T lymphs 15 % notest ab. Not Available [facility] ([facility]) [address] [facility], [place], [address], 05/16/2025 11:09:09 05/15/20 25 05/16/2025 CBC WITH DIFFE RENTI AL/PL ATELE T monocytes 12 % notest ab. Not Available [facility] ([facility]) [address] [facility], [place], [address], 05/16/2025 11:09:09 05/15/20 25 05/16/2025 CBC WITH DIFFE RENTI AL/PL ATELE T eos 7 % notest ab. Not Available [facility] ([facility]) [address] [facility], [place], [address], 05/16/2025 11:09:09 05/15/20 25 05/16/2025 CBC WITH DIFFE RENTI AL/PL ATELE T basos 0 % notest ab. Not Available [facility] ([facility]) [address] [facility], [place], [address], 05/16/2025 11:09:09 05/15/20 25 05/16/2025 CBC WITH DIFFE RENTI AL/PL ATELE T neutrophils (absolute) 3.1 x10e3 /uL 1.4-7. 0 Not Available [facility] ([facility]) [address] [facility], [place], [address], 05/16/2025 11:09:09 05/15/2005/16/2025 CBC WITH DIFFE RENTI AL/PL ATELE T lymphs (absolute) 0.7 x10e3 /uL 0.7-3. 1 Not Available [facility] ([facility]) [address] [place], [address], 05/16/2025 11:09:09 05/15/20 25 05/16/2025 CBC WITH DIFFE RENTI AL/PL ATELE T monocytes(ab solute) 0.6 x10e3 /uL 0.1-0. 9 Not Available [facility] ([facility]) [address] [place], [address], 05/16/2025 11:09:09 05/15/2005/16/2025 CBC WITH DIFFE RENTI AL/PL ATELE T eos (absolute) 0.4 x10e3 /uL 0.0-0. 4 Not Available [facility] ([facility]) [address] [place], [address], 05/16/2025 11:09:09 05/15/20 25 05/16/2025 CBC WITH DIFFE RENTI AL/PL ATELE T baso (absolute) 0.0 x10e3 /uL 0.0-0. 2 Not Available [facility] ([facility]) [address] [place], [address], 05/16/2025 11:09:09 05/15/20 25 05/16/2025 CBC WITH DIFFE RENTI AL/PL ATELE T immature granulocytes 0 % notest ab. Not Available [facility] ([facility]) [address] [facility], [place], [address], 05/16/2025 11:09:09 05/15/20 25 05/16/2025 CBC WITH DIFFE RENTI AL/PL ATELE T immature grans (abs) 0.0 x10e3 /uL 0.0-0. 1 Not Available [facility] ([facility]) [address] [facility], [place], [address], 05/16/2025 11:09:09 05/15/20 25 05/16/2025 PT AND PTT INR 1.5 0.9-1. 2 above high normal Refer ence inter luis is for non-a ntico agula toni patie nts. Sugge sted INR thera peuti c range for Vitam in K antag onist thera py: Stand christiano Dose (mode rate inten sity thera peuti c range ): 2.0 - 3.0 Highe r inten sity thera peuti c range 2.5 - 3.5 Not Available [facility] ([facility]) [address] [facility], [place], [address], 05/16/2025 11:09:09 05/15/20 25 05/16/2025 PT AND PTT prothrombin time 16.2 sec 9.1-12 .0 above high normal Not Available [facility] ([facility]) [address] [place], [address], 05/16/2025 11:09:09 05/15/20 25 05/16/2025 PT AND PTT APTT 34 sec 24-33 above high normal This test has not been valid ated for monit oring unfra ction ated hepar in thera py. aPTT- based thera peuti c range s for unfra ction ated hepar in thera py have not been estab nickolas johnson. For gener al guide lines on Hepar in monit oring , refer to the [facility] tory of Kahlil alvarez. Not Available [facility] ([facility]) [address], [place], [address], 05/16/2025 11:09:09 01/07/20 25 01/06/2025 cardi ac stres s test No observ ation record ed. [address], [address], 01/18/2025 17:00:56 01/19/20 25 01/06/2025 adeno sine stres s test (PROC ) No observ ation record ed. [address], [address], 01/19/2025 17:33:35 02/03/20 25 01/05/2025 PFT, compl ete No observ ation record ed. [address], [address], 02/02/2025 17:00:46 05/02/20 25 12/15/2022 US, duple x, aorta No observ ation record ed. rachel Rooney MD [address] [facility]. [facility] [address], [place], [address], 05/02/2025 11:39:35 05/02/20 25 04/01/2022 PET, skull [...] Name and Address Organization Details Recorded Time Gastroesophag eal reflux disease without esophagitis 359624337 Active 2023 Bubba Alcala MD Attn: Accounting ,[address] [facility], [place], [address] , [facility] 4 22:09:46 Dyslipidemia 315399351 Active 2023 Bubba Alcala MD Attn: Accounting ,[address] [facility], [place], [address] , [facility] 4 22:09:47 Chronic anemia 624033865 Active 2023 Bubba Alcala MD Attn: Accounting ,[address] [facility], [place], [address] , [facility] 4 22:09:50 Inflammatory bowel disease 86796717 Active 2023 Bubba Alcala MD Attn: Accounting ,[address] [facility], [place], [address] , [facility] 22:09:52 History of pulmonary embolus 285591467 Active 2023 Bubba Alcala MD Attn: Accounting ,[address] [facility], [place], [address] , [facility] 4 22:12:55 History of malignant neoplasm of prostate 548624356 Active 2023 Bubba Alcala MD Attn: Accounting ,[address] [facility], [place], [address] , [facility] 22:14:37 Cervical spondylosis 105459930 Active 2023 Bubba Alcala MD Attn: Accounting ,[address] [place], [address] , [facility] - [facility] 4 21:43:45 Long-term current use of anticoagulant 097406763 Active 2024 Sabi Carranza RN [facility], [place] - [facility] 5 14:11:42 Problem Notes None recorded. Procedures Surgical History Date Name Laterality Status Provider Name and Address Organization Details Recorded Time colonoscopy completed Scarlett Louis MA [place] - [facility] 12/08/2024 16:02:50 endoscopy completed Scarlett Louis MA [place] - [facility] 12/08/2024 16:02:58 Imaging Results None recorded. Procedure Notes None recorded. Medical Equipment None Reported. Allergies Allergen ID Allergen Name Allergen Category Reaction Reaction Severity Criticality Documentation Date Start Date Code Code System Note Provider Name and Address Organization Details Recorded Time 653017 amoxicill in medicatio n hives Not available Not available 12/28/2023 723 RxNorm NORA Cadet null, [place] - [facility] 4 16:18:47 085983 Farxiga medicatio n Not available Not available Not available 12/28/2023 00812 72 RxNorm peria nal rash CHARLOTTE CadetA null, [place] - [facility] 4 16:19:36 473254 Celebrex medicatio n hives Not available Not available 12/28/2023 85599 7 RxNorm NORA Cad[place] [facility] 4 16:19:58 014260 Lyrica medicatio n Not available Not available Not available 12/28/2023 26955 1 RxNorm blurr y visio n NORA Cadet null, [place] - [facility] 4 16:20:09 141361 celecoxib medicatio n other Not available Not available 07/24/20252019 99174 7 RxNorm SYDNIE Azar, [place] - [facility] 5 15:16:04 dapaglifl ozin Not available rash Not available high 07/24/20252023 89978 64 RxNorm Farxi ga unrec ogniz ed react ion (text : Unkno wn, code: [id number]) (from exter nal sour e) SYDNIE Azar, [place] - [facility] 5 15:16:08 dapaglifl ozin propanedi ol medicatio n rash Not available low 07/24/20252023 04521 66 RxNorm SYDNIE [place], [place] [facility] 5 15:16:10 Product containin g penicilli n (product) medicatio n other Not available high 07/24/20252009 48509 8001 SNOMED SYDNIE Azar, [place] - [facility] 5 15:16:13 19910507 pregabali n medicatio n other rash Not available Not available high 08/18/20252016 96349 2 RxNorm Radha a unrec ogniz ed react ion (text : Unkno wn, code: [id number]) [facility] Not Available jose francisco - External Data Service - prod 5 14:31:02 Medications Name Sig Start Date Stop Date Status Note LastModified by Organization Details LastModified Time prednisone 10 mg tablet TAKE 1 TAB BY MOUTH 3 TIMES A DAY X 3 DAYS, 1 TAB 2 TIMES A DAY X 2 DAYS, 1 TAB ONCE A DAY X 1 DAY 01/03 completed Not Available Not Available Not Available sulfasalaz ine 500 mg tablet TAKE 1 TABLET BY MOUTH THREE TIMES A DAY 07/12 completed Not Available Not Available Not Available atorvastat in 10 mg tablet TAKE 1 TABLET BY MOUTH DAILY 2024 active Not Available Not Available Not Avai lable nystatin 100,000 unit/gram topical ointment APPLY 1 GRAM TO AFFECTED AREA(S) TWICE DAILY FOR 15 DAYS 07/24 completed Not Available Not Available Not Available hydrocodon e 5 mg-acetami nophen 325 mg tablet TAKE 1 TABLET BY MOUTH EVERY 8 HOURS NEEDED 04/05 completed Not Available Not Available Not Available ondansetro n HCl 8 mg tablet TAKE 1 TABLET EVERY 8 HOURS NEEDED FOR NAUSEA AND VOMITING- USE IF PROCHLORP ERAZINE DOES NOT WORK 04/27 completed Not Available Not Available Not Available sucralfate 1 gram tablet TAKE 1 TABLET (1 GRAM TOTAL) BY MOUTH 4 TIMES A DAY 1 HOUR BEFORE MEALS AND AT BEDTIME active Not Available Not Available No t Available cyanocobal hopkins (vit B-12) 1,000 mcg tablet TAKE 1 TABLET BY MOUTH EVERY DAY IN THE MORNING 07/24 completed Not Available Not Available Not Available warfarin 2.5 mg tablet Take 1 tablet every day by oral route. 04/05 completed Not Available Not Available Not Available prochlorpe razine maleate 10 mg tablet TAKE 1 TABLET BY RADHA GUEVARA 6 HOURS NEEDED FOR NAUSEA OR VOMITING. USE FIRST FOR NAUSEA 04/27 completed Not Available Not Available Not Available carvedilol 3.125 mg tablet TAKE 1 TABLET BY MOUTH TWICE DAILY 2024 active Not Available Not Available Not Avai lable warfarin 3 mg tablet TAKE 1 TABLET BY MOUTH EVERY DAY active Not Available Not Available No t Available pantoprazo le 20 mg tablet,del ayed release TAKE 1 TABLET BY MOUTH EVERYDAY AT BEDTIME 07/24 completed Not Available Not Available Not Available pantoprazo le 40 mg tablet,del ayed release TAKE 1 TABLET BY MOUTH 2 TIMES A DAY BEFORE BREAKFAST AND DINNER. active Not Available Not Available No t Available triamcinol one acetonide 0.1 % topical ointment APPLY 1 GRAM TOPICALLY TO AFFECTED AREA TWICE A DAY FOR 15 DAYS 04/05 completed Not Available Not Available Not Available warfarin 5 mg tablet TAKE 1 TABLET BY MOUTH DAILY DIRECTED 2024 active Not Available Not Available Not Avai lable enoxaparin 150 mg/mL subcutaneo us syringe INJECT 130MG UNDER THE SKIN ONCE EACH MORNING 03/24 completed Not Available Not Available Not Available mexiletine 200 mg capsule active Not Available Not Available Not Available furosemide 20 mg tablet TAKE 1 TABLET BY MOUTH DAILY NEEDED FOR LEG EDEMA 2024 active Not Available Not Available Not Avai lable gabapentin 100 mg capsule TAKE 1 CAPSULE BY MOUTH 3 TIMES DAILY 2024 active Not Available Not Available Not Avai lable warfarin 1 mg tablet Take 1 tablet every day by oral route. active see flow sheet Not Available Not Available Not Available albuterol sulfate HFA 90 mcg/actuat ion aerosol inhaler USE 2 INHALATIO NS BY MOUTH EVERY 4 HOURS NEEDED 2023 active Not Available Not Available Not Avai lable ferrous sulfate 325 mg (65 mg iron) tablet,del ayed release TAKE 1 TABLET BY MOUTH TWICE A DAY 07/24 completed Not Available Not Available Not Available fluticason e propionate 50 mcg/actuat ion nasal spray,susp ension USE 1 SPRAY NASALLY DAILY 07/24 completed pt says he uses PRN Not Available Not Available Not Available metoclopra mide 10 mg tablet Take 1 tablet twice a day by oral route. active Not Available Not Available No t Available oxycodone 5 mg tablet TAKE 1 TABLET BY MOUTH EVERY 6 HOURS NEEDED FOR PAIN 07/24 completed Not Available Not Available Not Available enoxaparin 120 mg/0.8 mL subcutaneo us syringe INJECT 120MG EVERY MORNING active Not Available Not Available No t Available solifenaci n 5 mg tablet TAKE 1 TABLET BY MOUTH EVERYDAY AT BEDTIME 04/27 completed Not Available Not Available Not Available Farxiga 5 mg tablet TAKE 1 TABLET BY MOUTH EVERY DAY 12/28 completed Not Available Not Available Not Available Sutab 1.479-0.18 8-0.225 gram tablet TAKE 12 TABLETS BY MOUTH [...] Updated DateTime 5 181.61 cm 38.8 kg/m2 145080. 69 g 97 % 97 % 64 /min 120/78 mm[Hg] Scarlett Louis MA [facility] 5 16:07:53 Date Recorded Body height Body mass index (BMI) Body weight Heart rate Oxygen saturation Oxygen saturation in Arterial blood by Pulse oximetry Systolic And Diastolic Provider Name and Address Organization Details Last Updated DateTime 5 181.61 cm 33.5 kg/m2 148319. 82 g 96 /min 97 % 97 % 110/78 mm[Hg] Scarlett Louis MA [facility] 5 14:20:07 Date Recorded Body height Body mass index (BMI) Body weight Heart rate Oxygen saturation Oxygen saturation in Arterial blood by Pulse oximetry Systolic And Diastolic Provider Name and Address Organization Details Last Updated DateTime 5 181.61 cm 34.2 kg/m2 734826. 34 g 65 /min 99 % 99 % 120/72 mm[Hg] Milagro Tom MA [facility] 5 15:47:03 Date Recorded Body height Body mass index (BMI) Body weight Heart rate Oxygen saturation Oxygen saturation in Arterial blood by Pulse oximetry Systolic And Diastolic Provider Name and Address Organization Details Last Updated DateTime 4 181.61 cm 39.9 kg/m2 672125. 47 g 62 /min 99 % 99 % 126/68 mm[Hg] Sherine NasraSYDNIE [facility] 4 14:52:37 Date Recorded Body height Body mass index (BMI) Body weight Heart rate Oxygen saturation Oxygen saturation in Arterial blood by Pulse oximetry Systolic And Diastolic Provider Name and Address Organization Details Last Updated DateTime 5 181.61 cm 35.2 kg/m2 213495. 01 g 61 /min 95 % 95 % 112/72 mm[Hg] Milagro SYDNIE Tom [facility] 5 15:15:52 Social History Question Answer Notes LastModified by Organizat ion Details LastModified Time Tobacco Smoking Status Former Smoker NORA Cadet, [facility] 12/28/2023 16:20:38 Do You Have An [...] Date Of Your Most Recent Tobacco Screening? 07/24/2025 Information not available 07/24/2025 What Is Your Current Pack Years? 30ormorepack [...] 04/27/2025 Are you able to care for yourself independently? Yes Information not available 04/27/2025 Mental Status None recorded. Family History Relationship Description Onset Age of this Age Resolved Age Notes LastModified by Organization Details LastModified Time Mother Malignant neoplasm of breast [email or web address] Not available 2024 11:52:44 Father Malignant neoplastic disease [email or web address] Not available 2024 11:53:00 Father Deep venous thrombosis [email or web address] Not available 11/17 11:53:06 Father Pulmonary embolism [email or web address] Not available 2024 11:53:15 Medical History Condition Response Coronary Artery Disease Y Other N Atrial Fibrillation N High Blood Pressure N Depression N COPD N Blood Clots Y Anxiety Disorder N Muscle, Joint, or Bone Problems Y Acid Reflux (GERD) Y Cancer Y Stroke N High Cholesterol Y Liver Disease N Headaches N Kidney or Bladder Problems Y Thyroid Problems N GI Problems Y Have you had a mammogram in the last yea r? N Skin Problems N Anemia Y Heart Attack ([place]) Y Diabetes N Seizures/Epilepsy N Have you had a colonoscopy in the last 1 0 years? Y Asthma N Allergies Y Have you had a PSA blood test in the las t year? N Hepatitis N Heart Failure Y Osteoporosis N Immunizations Vaccine Type Date Status Note Provider Nam e and Address Organization Details Recorded Time Influenza, high-dose, quadrivalent, PF 3 completed Emily Cumming null, [place] - [facility] 11/17/2024 11:46:12 Influenza, high-dose, quadrivalent, PF 2 completed [place] [facility] 11/17/2024 11:46:12 Influenza, high-dose, quadrivalent, PF 1 completed [place] [facility] 11/17/2024 11:46:12 COVID-19, mRNA, LNP-S, PF, 100 mcg/0.5mL dose or 50 mcg/0.25mL dose 2 completed [place] [facility] 11/17/2024 11:46:12 COVID-19, mRNA, LNP-S, PF, 100 mcg/0.5mL dose or 50 mcg/0.25mL dose 1 completed Emily [place] [facility] 11/17/2024 11:46:12 COVID-19, mRNA, LNP-S, PF, 100 mcg/0.5mL dose or 50 mcg/0.25mL dose 1 completed Emily [place] [facility] 11/17/2024 11:46:12 COVID-19, mRNA, LNP-S, PF, 100 mcg/0.5mL dose or 50 mcg/0.25mL dose 1 completed [place] [facility] 11/17/2024 11:46:12 influenza, unspecified formulation 8 completed [place] [facility] 11/17/2024 11:46:12 influenza, unspecified formulation 4 completed [place] [facility] 11/17/2024 11:46:13 Influenza, high-dose, trivalent, PF 8 completed [place] [facility] 11/17/2024 11:46:13 Influenza, high-dose, trivalent, PF 9 completed Emily [place]acinth [place] [facility] 11/17/2024 11:46:13 Influenza, high-dose, trivalent, PF 7 completed [place] [facility] 11/17/2024 11:46:13 Influenza, split virus, trivalent, preservative 3 completed [place] [facility] 11/17/2024 11:46:13 Influenza, split virus, quadrivalent, PF 5 completed [place] [facility] 11/17/2024 11:46:13 Pneumococcal conjugate PCV20, polysaccharide [id number] conjugate, adjuvant, PF 4 completed Bubba Alcala MD Attn: Accounting,[address] [place], [address], [facility] - [facility] 05/01/2024 22:07:26 Influenza, high-dose, trivalent, PF 4 completed Bubba Alcala MD Attn: Accounting[address] [place], [address], [facility] - [facility] 07/30/2024 21:41:48 Influenza, high-dose, trivalent, PF 5 completed Cherri Mejia null, [place] - [facility] 08/03/2025 12:41:20 Past Encounters Encounter ID Performer Location Encounter Start Date Encounter Closed Date Diagnosis/Indication Diagnosis SNOMED-CT Code Diagnosis ICD10 Code Diagnosis IMO Codes Diagnosis Note [id number] Bubba Alcala MD [facility] (Adult Med) [address] [place] [address] 12/28/2023 15:33:31 12/28/2023 17:03:34 Proctitis 3609437 K62.89 Anticoagulant therapy 18 0422846 Z79.01 Hyperlipidemia 25000371 E78.5 Long-term drug therapy 015459908 Z79.899 Nonischemi c congestive cardiomyopathy 5573030732 04 I42.0 History of malignant neoplasm of prostate 162940186 Z85.46 Chronic ki dney disease stage 3 921961604 N18.30 Ventricula r tachycardia 83597697 I47.20 [id number] Bubba Alcala MD [facility] (Adult Med) [address] [place] [address] 04/05/2024 15:47:26 04/05/2024 17:08:10 Administration of pneumococcal vaccine 34299069 Z23 Gastroesop hageal reflux disease without esophagitis 274194945 K21.9 Dyslipidemia 485485129 E 78.5 Chronic anemia 180039764 D64.9 Inflammato ry bowel disease 55048759 K52.9 History of pulmonary embolus 668897700 Z86.711 History of malignant neoplasm of prostate 615119775 Z85.46 [id number] Bubba Alcala MD [facility] (Adult Med) [address] [place] [address] 07/12/2024 14:26:22 07/12/2024 15:52:19 Body mass index 30+ - obesity 498929674 Z68.39 BMI 39.9 Administra tion of influenza vaccine 06611515 Z23 Dyslipidemia 092303053 E 78.5 Chronic anemia 351123164 D64.9 Gastroesop hageal reflux disease without esophagitis 822580335 K21.9 Cervical spondylosis 387 929840 M47.193 [id number] Bubba Alcala MD [place] [id number] [facility] [address] [place] [address] 12/08/2024 15:00:29 12/08/2024 16:45:43 Body mass index 30+ - obesity 524012474 Z68.39 BMI 39.9 Chronic anemia 304618366 D64.9 Gastroesop hageal reflux disease without esophagitis 051780845 K21.9 Dyslipidemia 245426095 E 78.5 Proctitis 8123757 K62.89 Anticoagulant therapy 18 8468487 Z79.01 Hyperlipidemia 15101095 E78.5 Long-term drug therapy 352517606 Z79.899 Nonischemi c congestive cardiomyopathy 8105796830 04 I42.0 History of malignant neoplasm of prostate 953809345 Z85.46 Chronic ki dney disease stage 3 189613435 N18.30 Ventricula r tachycardia 87129962 I47.20 History of pulmonary embolus 233301814 Z86.989 [id number] Bubba Alcala MD [facility] [place] [address] [place] [address] 03/16/2025 14:02:27 03/16/2025 14:50:25 Body mass index 30+ - obesity 530483405 Z68.33 285763 BMI 39.9 Obese class I 6489468674 59478 E66.811 7577181868 BMI 39.9 Gastroesop hageal reflux disease without esophagitis 464579263 K21.9 Inflammato ry bowel disease 08600591 K52.9 Chronic anemia 070315208 D64.9 Cervical spondylosis 387 245608 M47.812 Dyslipidemia 643028226 E 78.5 History of pulmonary embolus 810217469 Z86.583 [id number] Bubba Alcala MD [facility] [place] [address] [place] [address] 04/27/2025 15:01:15 04/27/2025 16:37:50 Body mass index 30+ - obesity 379819306 Z68.34 082410 BMI 39.9 Obese class I 5180730111 45278 E66.811 7057248869 BMI 39.9 Adult [facility] th examination 478940672 Z00.00 Health Risk Assessment collected and reviewed Chronic anemia 676053580 D64.9 History of pulmonary embolus 804199206 Z86.711 Gastroesop hageal reflux disease without esophagitis 732475805 K21.9 Inflammato ry bowel disease 96432736 K52.9 History of malignant neoplasm of prostate 889871304 Z85.46 Cervical spondylosis 387 369433 M47.812 Dyslipidemia 887205739 E 78.5 [id number] Bubba Alcala MD [facility] [place] [address] [place] [address] 07/24/2025 15:05:01 07/24/2025 16:20:30 Obese class II 2378897923 42402 E66.812 E66.3 8879263912 BMI 35.2 Influenza vaccination given 2354699373 9109 Z23 88478676 Long-term current use of anticoagulant 509542529 Z79.01 3177595 Dyslipidemia 512741552 E 78.5 Health Concerns Section Related Observation LastModified by Organization Detai ls LastModified Time None Recorded Concern Status LastModified by Organization Details LastModified Time None Recorded Advance Directives Directive N: Payers Insurance Date Sequence Insurance Name Policy Number Policy Abbasi Covered Member ID Abbasi Member ID Guarantor Name 07/21/2025 1 [facility] (MEDICARE REPLACEMENT/A DVANTAGE - HMO) [id number] Marshall Olson [id number] Marshall Olson Notes Date Note Type Note Provider Name and Address Organization Details Recorded Time 4 text/html chronic anemia he has does not have any symptoms at this time GERD no nausea no vomiting chronic neck pain has been stable dyslipidemia trying to watch his diet history of PE no cardiopulmonary symptoms today still has some bleeding from radiation proctitis Bubba Alcala MD Attn: Accounting,[address] [place], [address], [facility] 07/30/2024 21:45:03 5 text/html anemia he received a unit of blood tells me his hemoglobin is 9.5 now no active bleeding he is getting a upper endoscopy on December 13. He has had elevated creatinine GFR between 30 and 35. Apparently has biopsies done on recent upper endoscopy adenocarcinoma of the esophagus on background of dysplasia and Miller's Bubba Alcala MD Attn: Accounting[address] [place], [address], [facility] 12/08/2024 21:26:54 5 text/html Struggling with some esophageal cancer his [...] of his cancer Bubba Alcala MD Attn: Accounting,[address] [place], [address], [facility] 03/16/2025 14:50:00 5 text/html TANISHA 2Reported by Patient Follow up of medical problems COPD stable at this time CAD [...] bowel disease has been stable SYDNIE Azar, [facility] 05/04/2025 12:46:51 5 text/html They are still trying to figure out what they they are going to do his upper endoscopy he has had a little bit of blood in his stool but that is not anything uncommon for him given his history of the proctitis no chest pain or shortness of breath he has not had any hemoptysis he has not had any hematemesisDyslipidemia trying to watch dietEsophageal cancer cryotherapy being plannedHistory DVT PE anticoagulationInflammatory bowel disease always has a little bit of rectal bleeding Bubba Alcala MD Attn: Accounting,[address] [facility], [place], [address], [facility] 07/24/2025 22:10:30
--- OUTSIDE RECORDS SUMMARY | 2025-08-28 09:25 | XMS_ITS | Encounter Summary ---
Author Organization [facility] Healthcare Address [address] [place] [address] Care Team Providers Care Metrology Specialist Name Role Phone Jas Alcala MD Primary Care Provider [phone] Lucio Rosas MD Unavailable Bianca Hunter MD Unavailable + [phone] Hero Pinedo MD Unavailable [phone] Jas Alcala MD Primary Care Provider [phone] Lon Tomas MD Unavailable [phone] Jaycee Teresa MD Unavailable [phone] Francisco Jones DO Unavailable [phone] Encounter Details Date Type Department Care Team (Late st Contact Info) Description 05/07/2022 Orders Only [facility] Cardiac Catheterization Lab [address] [place] [address] Bryon Potter MD [address] [place] [address] Social History Tobacco Use Types [...] on file Legal 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 Gender Identity Not on file Sexual Orientation Not on file 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 Not on file Not on file Retired Not on file Not on file Not on file documented as of this encounter Plan of Treatment Not on file documented as of this encounter Visit Diagnoses Not on filedocumented in this encounter Care Teams Metrology Specialist Relationship Specialty Start Date End Date Jas Alcala MD PCP - General Internal Medicine 02/26/18 01/03/25 Jas Alcala MD [address] [place] [address] PCP - General Internal Medicine 01/04/[address] MD [facility] [address] [place], [place] [id number] Consulting Physician Gastroenterology 11/28/24 [address] MD [facility] [address] [place] [address] Medical Oncologist/Hematologis t Medical Oncology 12/07/24 06/02/25 Hero Pinedo MD [address] [place] [address]38329 Radiation Oncologist Radiation Oncology 12/28/24 Lon Tomas MD [address] [place] [address] Consulting Physician Urology 01/04/25 Jaycee Teresa MD [address] [place] [address] Consulting Physician Cardiology 01/09/25 Francisco Jones DO [address] [place] [address] Medical Oncologist/Hematologis t Hematology and Oncology 06/03/25 documented as of this encounter
--- OUTSIDE RECORDS SUMMARY | 2025-08-28 09:25 | XMS_ITS ---
Author Organization [facility] Address [address] [place] [address] Care Team Providers Care Weed Cutter Name Role Phone Lucio Rosas MD Unavailable Hero Pinedo MD Unavailable [phone] Jas Alcala MD Primary Care Provider [phone] Lon Tomas MD Unavailable [phone] Jaycee Teresa MD Unavailable [phone] Francisco Jones DO Unavailable [phone] Active Problems Patient Care Coordination No te [...] He also has a history of an [place] and PE. 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 -Pathology discuss in detail and all questions were answered -Refer for EUS -Refer to Oncology and Cardiothoracic surgery Miller's esophagus with high grade dysplasia Assessment & Plan (11/25/2024 9:41 AM TECHNICAL SERVICES REP): EGD September 2024 with irregular Z-line and gastric ulcers. Pathology with Barretts esophagus, indefinite for dysplasia. Repeat EGD November 2024 with Barretts esophagus, pathology with high-grade dysplasia. -Continue pantoprazole 40 mg p.o. b.i.d. History of colon polyps 11/25/2024 Assessment & Plan (11/25/2024 9:42 AM TECHNICAL SERVICES REP): Colonoscopy November 2024 with multiple tubular adenomas. -Repeat colonoscopy November 2027 Gastric ulcer 09/23/2024 Anemia due to blood loss 09/23/2024 Rectal bleeding 08/22/2024 Radiation proctitis 08/22/2024 Assessment & Plan (11/25/2024 9:41 AM TECHNICAL SERVICES REP): Colonoscopy November 2024 with severe radiation proctitis status post APC. -Consider flex sig with APC, patient advised to call office if rectal bleeding gets worse Eosinophilia 02/22/2024 Iron deficiency anemia, unspecified 02/22/2024 Anemia 02/22/2024 VT (ventricular tachycardia) 05/09/2022 Overview (05/09/2022): Added automatically from request for surgery [id number] Lower urinary tract symptoms (LUTS) 05/24/2020 Malignant neoplasm of prostate 04/25/2013 Current Treatment and Therapy Plans IV Maintenance Therapy Plan* Plan Start Date:08/09/2025 Plan Provider:Francisco Jones DO Linked Problems Malignant [...] Hunter MD 1 of 1 cycle started Specialty Infusion Treatment Plan Name Start Date Discontinue Date Treatment Medications Discontinue Reason Plan Provider Hydration Therapy Plan 02/20/2025 07/20/2025 No medications scheduled. Orders Bianca Hunter MD Radiation Treatments (No Episode) * Course C1_Esoph_202401/19/2025 [...]
--- OUTSIDE RECORDS SUMMARY | 2025-08-28 09:25 | XMS_ITS | Clinical Summary ---
Author Organization [facility] Address [address] [place] [address] Care Team Providers Care Vigoureux Printer Name Role Phone Jas Alcala MD Primary Care Provider [phone] Allergies Active Allergy Reactions Criticality Noted Date [...] (06/17/2022): Added automatically from request for surgery [id number] Family History Medical History Relation Comments Cancer [...] - 1-dose 75+ series) 2025 COVID-19 Vaccine (5 - 2024- season) 2025 11/05/2021, 10/21/2021, 01/01/2021, Additional history exists Influenza Adult (#1) 2025 09/17/2019, 09/05/2018, 08/02/2018, Additional history exists Hepatitis A Vaccines Aged Out No long er eligible based on patient's age to complete this topic Meningococcal B Vaccine Aged Out No l onger eligible based on patient's age to complete this topic Meningococcal Vaccine Aged Out No rufus gretta eligible based on patient's age to complete this topic RSV Immunizations Under 20 Months Aged Out No longer eligible based on patient's age to complete this topic Insurance Care Teams Vigoureux Printer Relationship Specialty Start Date End Date Jas Alcala MD PCP - General INTERNAL MEDICINE 02/11/22
--- OUTSIDE RECORDS SUMMARY | 2025-08-28 09:25 | XMS_ITS | Clinical Summary ---
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 Gender Identity Not on file Sexual Orientation Not on file Last Filed Vital Signs Vital Sign Reading Time Taken Comments Blood Pressure 142/62 12/29/2019 2:51 PM SPECIALTY THERAPIST Pulse 62 12/29/2019 2:51 PM SPECIALTY THERAPIST Temperature 36.4 C (97.6 F) 12/29/2019 2:51 PM SPECIALTY THERAPIST Respiratory Rate 18 12/29/2019 2:51 PM SPECIALTY THERAPIST Oxygen Saturation 99% 12/29/2019 2:51 PM SPECIALTY THERAPIST Inhaled Oxygen Concentration - - Weight 137 kg (302 lb) 12/29/2019 2:51 PM SPECIALTY THERAPIST Height 182.9 cm (6') 12/29/2019 2:51 PM SPECIALTY THERAPIST Body Mass Index 40.96 12/29/2019 2:51 PM SPECIALTY THERAPIST Plan of Treatment Health Maintenance Due Date [...] age to complete this topic Care Teams Salesperson [employer] Relationship Specialty Start Date End Date Jas Alcala MD PCP - General Internal Medicine 11/09/19
--- OUTSIDE RECORDS SUMMARY | 2025-08-28 09:25 | XMS_ITS | Clinical Summary ---
Author Organization [facility] Address [address] [place] [address] Care Team Providers Care Office Bookkeeper Name Role Phone Lucio Rosas MD Unavailable Hero Pinedo MD Unavailable [phone] Jas Alcala MD Primary Care Provider [phone] Lon Tomas MD Unavailable [phone] Jaycee Teresa MD Unavailable [phone] Francisco Jones DO Unavailable [phone] Allergies Active Allergy Reactions Criticality Noted Date Comments Amoxicillin Anaphylaxis High 02/15/2024 Celecoxib Anaphylaxis,Hives,Un known,Other (See comments) High 09/23/2010 Dapagliflozin Rash,Unknown High 01/19/2024 Farxiga Penicillins Shortness of breath,Hives,Unknown,Other (See comments),Rash High 09/23/2010 Pregabalin Other (See comments),Rash,Unknown High Lyrica Medications calcium carbonate (TUMS) 500 [...] 4 Active cyanocobalamin (Vitamin B-12) 1,000 mcg tabletIndication [...] (six) hours as needed for wheezing Active oxyCODONE (ROXICODONE) 5 mg immediate release tablet Take 1 tablet (5 mg total) by mouth every 6 (six) hours as needed for pain 30 tablet 5 Active vibegron (Gemtesa) 75 mg tablet Gemtesa 75 mg tablet Active enoxaparin (LOVENOX) 120 mg/0.8 mL syringe INJECT 120MG UNDER THE SKIN IN THE MORNING 06/13/25- 5. 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 560 mL 5 Active sucralfate (CARAFATE) 1 gram tablet Take 1 tablet (1 g total) by mouth 4 (four) times a day Take 1 hour before meals and at bedtime 120 tablet 3 5 07/25/20 26 Active Active Problems Patient Care Coordination [...] He also has a history of an HI and PE. He has a history of [...] 01/04/2025 Assessment & Plan (11/25/2024 9:39 AM SCREW DOWN): EGD November 2024 with nodules in the distal esophagus, pathology with 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 -Pathology discuss in detail and all questions were answered -Refer for EUS -Refer to Oncology and Cardiothoracic surgery Miller's esophagus with high grade dysplasia Assessment & Plan (11/25/2024 9:41 AM SCREW DOWN): EGD September 2024 with irregular Z-line and gastric ulcers. Pathology with Barretts esophagus, indefinite for dysplasia. Repeat EGD November 2024 with Barretts esophagus, pathology with high-grade dysplasia. -Continue pantoprazole 40 mg p.o. b.i.d. History of colon polyps 11/25/2024 Assessment & Plan (11/25/2024 9:42 AM SCREW DOWN): Colonoscopy November 2024 with multiple tubular adenomas. -Repeat colonoscopy November 2027 Gastric ulcer 09/23/2024 Anemia due to blood loss 09/23/2024 Rectal bleeding 08/22/2024 Radiation proctitis 08/22/2024 Assessment & Plan (11/25/2024 9:41 AM SCREW DOWN): Colonoscopy November 2024 with severe radiation proctitis status post APC. -Consider flex sig with APC, patient advised to call office if rectal bleeding gets worse Eosinophilia 02/22/2024 Iron deficiency anemia, unspecified 02/22/2024 Anemia 02/22/2024 VT (ventricular tachycardia) 05/09/2022 Overview (05/09/2022): Added automatically from request for surgery [id number] Lower urinary tract symptoms (LUTS) 05/24/2020 Malignant neoplasm of prostate 04/25/2013 Encounters Date Type Department Care Team Description 08/25/20 4:06 PM CDT - 08/25/20 7:32 PM CDT Emergency [facility] Emergency Department [address] [place] [address] Muriel Dodson MD Bradycardia (Primary Dx); Pericardial effusion; Anemia, unspecified type Discharge Disposition: Discharge to home or self care 08/25/20 12:30 PM CDT Anesthesia Event [address] [address] Truman Naqvi MD Leach, Shannin L., CRNA 08/25/20 10:36 AM CDT - 08/25/20 4:05 PM CDT Hospital Encounter [address] [address] Jerry Peguero MD Discharge Disposition: Still a patient 08/23/20 9:15 AM CDT Clinical Support [facility] at [address] [address] Anemia, unspecified type; History of pulmonary embolism; Malignant neoplasm of lower third of esophagus (HCC); Abnormal coagulation profile 08/23/20 Telephone [facility] [address] [facility] [address] [place] [address] Flor Oviedo, WILBER INR 08/23/20 Telephone [facility] at [address] [place] [phone] Francie Hassan RN 08/18/20 Telephone [facility] [address] Medical Office Building [address], [address] [place] [address] Flor Oviedo, WILBER AC Hold recommendations - warfarin 08/09/20 12:00 PM CDT Infusion [facility] at [address] [place] [phone] Iron deficiency anemia, unspecified iron deficiency anemia type (Primary Dx); Anemia, unspecified type; History of pulmonary embolism; Malignant neoplasm of lower third of esophagus (HCC) 08/09/20 11:30 AM CDT Clinical Support [facility] at [address] [address] Anemia, unspecified type; History of pulmonary embolism 08/08/20 Orders Only [facility] Hematology [address] [place] [phone] Zhang, Gertrude Lisa Anemia, unspecified type (Primary Dx); History of pulmonary embolism 08/01/20 Orders Only [facility] Hematology [address] [place] [address] [address] [place] [address] Zhang, Gertrude Lisa Anemia, unspecified type (Primary Dx); History of pulmonary embolism 07/26/20 11:00 AM CDT Clinical Support [facility] at [address] [address] Anemia, unspecified type; History of pulmonary embolism 07/26/20 Telephone [facility] at [address] [phone] Kaycee Chanel RN 07/25/20 Telephone [facility] Gastroenterology [address] [place] [address] Medical Office Building [address], [address] [place] [address] Leslei Thomas RN GI Preprocedure 07/24/20 Telephone [facility] [address] [place] [address] Medical Office Building [address], [address] [place] [address] Lauren Delgado LPN GI Preprocedure 07/21/20 10:48 AM CDT Anesthesia Event [facility] [place] [address] [address] Jacobo Horne MD 07/21/20 10:30 AM CDT - 07/21/20 11:00 AM CDT Surgery [facility] [place] [address] [address] Jerry Peguero MD ESOPHAGOSCOPY 07/21/20 8:50 AM CDT - 07/21/20 12:30 PM CDT Hospital Encounter [facility] [place] [address] [place] [phone] Jerry Peguero MD Discharge Disposition: Discharge to home or self care 07/21/20 8:30 AM CDT Lab [facility] [place] [facility] [address] [place] [phone] Malignant neoplasm of lower third of esophagus (HCC); Abnormal coagulation profile 07/20/20 10:00 AM CDT Office Visit [facility] [address] [place] [phone] Francisco Jones DO Malignant neoplasm of lower third of esophagus (HCC) (Primary Dx) 07/20/20 9:30 AM CDT Clinical Support [address] [address] Malignant neoplasm of lower third of esophagus (HCC); Anemia, unspecified type; History of pulmonary embolism 07/13/20 9:36 AM CDT - 07/13/20 11:59 PM CDT Hospital Encounter [facility] Medical Office Building [address] [place] [address] Malignant neoplasm of lower third of esophagus (HCC) Discharge Disposition: Discharge to home or self care 07/13/20 9:00 AM CDT Clinical Support [address] [address] Anemia, unspecified type; History of pulmonary embolism 07/13/20 Telephone [facility] at [address] [place] [address] Kaycee Chanel RN 07/10/20 Telephone [facility] [address] [facility] Medical Office Building [address], [address] [place] [address] Leslie Thomas RN GI Preprocedure 07/10/[address] [facility] Gastroenterology at [address] [place] [address] Lucio Rosas MD Miller's esophagus with high grade dysplasia (Primary Dx); Malignant neoplasm of lower third of esophagus (HCC) 06/28/20 2:00 PM CDT - 06/28/20 2:30 PM CDT Surgery [facility] [address] [place] [phone] Jerry Peguero MD EGD 06/28/20 1:15 PM CDT Anesthesia Event [facility] [address] [place] [phone] Sergio Gao MD 06/28/20 12:31 PM CDT - 06/28/20 2:18 PM CDT Hospital Encounter [facility] [address] [place] [phone] Jerry Peguero MD Discharge Disposition: Discharge to home or self care 06/28/20 12:05 PM CDT Lab [facility] Outpatient Lab [address] [place] [phone] Malignant neoplasm of lower third of esophagus (HCC); Abnormal coagulation profile 06/23/20 Telephone [facility] Gastroenterology [address] [facility] Medical Office Building [address], [address] [place] [address] Leslie Thomas RN GI Preprocedure 06/23/20 Telephone [facility] [address] [facility] Medical Office Building [address], [address] [place] [phone] Lauren Delgado LPN GI Preprocedure 06/23/20 Telephone [facility] [address] [facility] Medical Office Building [address], [address] [place] [address] Amber Posada RN MD recommendations 06/19/20 10:30 AM CDT Anesthesia Event [address] [place] [phone] Jacobo Horne MD 06/19/20 10:00 AM CDT - 06/19/20 10:30 AM CDT Surgery [address] [place] [address] Jerry Peguero MD ESOPHAGOGASTRODUODENOSCOPY WITH ABLATION 06/19/20 8:12 AM CDT - 06/19/20 11:51 AM CDT Hospital Encounter [address] [address] Jerry Peguero MD Discharge Disposition: Discharge to home or self care 06/19/20 7:45 AM CDT Lab [facility] [place] [facility] [address] [place] [phone] Anemia, unspecified type; History of pulmonary embolism 06/14/20 11:15 AM CDT Infusion [facility] at [address] [place] [phone] Iron deficiency anemia, unspecified iron deficiency anemia type (Primary Dx); Anemia, unspecified type; History of pulmonary embolism 06/14/20 10:30 AM CDT Office Visit [facility] [address] [place] [address] [address] [place] [address] Mihaela Rod NP Anemia, unspecified type (Primary Dx); History of pulmonary embolism 06/14/20 10:00 AM CDT Clinical Support [facility] [place] at [address] [address] Anemia, unspecified type; History of pulmonary embolism 06/13/20 25 Orders Only [facility] Hematology [address] [place] [phone] Gertrude Zhang Anemia, unspecified type (Primary Dx); History of pulmonary embolism 06/13/20 Results Follow-Up [facility] Hematology [address] [place] [phone] Mihaela Rod NP Reticulocyte Count, CBC with auto differential, Iron profile w/ IBC, Additional followed-up results: 2 06/07/20 9:30 AM CDT Clinical Support [facility] at [address] [phone] Anemia, unspecified type; History of pulmonary embolism 06/07/20 25 Orders Only [facility] Hematology [address] [place] [phone] Cathy Lawrence RN 06/02/20 Telephone [facility] Gastroenterology [address] [place] [address] Medical Office Building [address], [address] [place] [phone] Leslie Thomas, WILBER GI Preprocedure 06/01/20 25 2:15 PM CDT Office Visit [facility] Oncology [address] [place] [phone] Francisco Jones DO Malignant neoplasm of lower third of esophagus (HCC) (Primary Dx) 06/01/20 25 Orders Only [facility] Hematology [address] [place] [address] [address] [place] [address] Gertrude Zhang Anemia, unspecified type [...] TONSILLECTOMY Tonsillectomy - (Added by TW Conv) [place] REPAIR FIRST ABDOMINAL WA LL HERNIA Ventral Hernia Repair - 11/2013 (Added by TW Conv) w/poss mesh CATARACT EXTRACTION, BILATERAL COLONOSCOPY URETHRAL DILATION N/A UPPER GASTROINTESTINAL ENDOSCOPY PORT PLACEMENT CHEST >5 YEARS 01/11/2025 N/A ESOPHAGOGASTRODUODENOSCOPY cyro CHOLECYSTECTOMY Medical History Medical History Date Comments Chronic bronchitis with productive mucopurulent cough (HCC) Prostate cancer (HCC) Hepatitis A Neuropathy 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HI (myocardial infarction) (HCC) 2018 PE (pulmonary thromboembolism) [...] you have a drink containing alcohol? Never 08/25/2025 Q2: How many drinks containi ng alcohol do you have on a typical day when you are drinking? Patient does not drink Q3: How often do you have si x or more drinks on one occasion? Never 08/25/2025 Personal Safety Answer Date Recorded Have you ever been in or are you currently in a harmful physical or emotional relationship or is someone making you feel afraid or unsafe? 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 file Not on file Not on file Retired Not on file Not on file Not on file Obstetrics History Last Filed Vital Signs Vital Sign Reading Time Taken Comments Blood Pressure 109/55 08/25/2025 7:05 PM CDT Pulse 77 08/25/2025 7:05 PM CDT Temperature 36.2 C (97.2 F) 08/25/2025 12:33 PM CDT Respiratory Rate 18 08/25/2025 7:05 PM CDT Oxygen Saturation 94% 08/25/2025 5:30 PM CDT Inhaled Oxygen Concentration - - Weight 117.9 kg (260 lb) 08/25/2025 12:33 PM CDT Height 182.9 cm (6') 08/25/2025 12:33 PM CDT Body Mass Index 35.26 08/25/2025 12:33 PM CDT Plan of Treatment Health Maintenance [...] 01/01/2021, Additional history exists Fall Risk Assessment 08/25/2026 08/25/2025, 01/05/20 Colon Cancer Screening-Colonoscopy 11/17/2027 11/17/2024 Colon Cancer Screening-CT Colonography Discontinued 11/17/2024 Colon Cancer Screening-DNA Stool Discontinued 11/17/19 25 Colon Cancer Screening-FIT Discontinued 11/17/2024 Colon Cancer Screening-Sigmoidoscopy Discontinued 11/17/2024 Abdominal Aortic Aneurysm (A AA) Screen Completed 12/13/2024 Influenza Vaccine Completed 07/24/2025, , 09/04/2021, Additional history exists Medical Devices Implanted Type Area Rhia Device Identifier Shelf Expiration Date Model / Serial / Lot Screws And Rods Spine Lumbar [employer] Xcela Power Port 8fr [id number] - [id number] Implanted:Qty: 1 on 01/11/2025 by Linda Cardenas PA at [facility] [employer] 08/29/2029 [id number] / / [id number] Procedures Procedure Name Priority Date/Time Associated Diagnosis Comments XR CHEST PA LATERAL 2 VIEWS ED 08/03 4:59 PM CDT EGFR STAT 08/25/2025 4:43 PM CDT DIFFERENTIAL AUTO STAT 08/25/2025 4:43 PM CDT APTT STAT 08/25/2025 4:43 PM CDT PROTIME-INR STAT 08/25/2025 4:43 PM CDT COMPREHENSIVE METABOLIC PANEL STAT 4:43 PM CDT CBC WITH AUTO DIFFERENTIAL STAT 08/25 4:43 PM CDT TROPONIN I HIGH-SENSITIVITY SERIES (BASELINE, 2HR, 4HR, 6HR) STAT 08/25/2025 4:43 PM CDT ECG 12-LEAD STAT 08/25/2025 2:54 PM CDT PROTIME-INR STAT 08/23/2025 9:36 AM CDT Malignant neoplasm of lower third of esophagus (HCC) Abnormal coagulation profile DIFFERENTIAL AUTO Routine 08/23/2025 9:30 AM CDT Anemia, unspecified type History of pulmonary embolism CBC WITH AUTO DIFFERENTIAL Routine 08/23 9:30 AM CDT Anemia, unspecified type History of pulmonary embolism FERRITIN Routine 08/23/2025 9:30 AM CDT Anemia, unspecified type History of pulmonary embolism IRON PROFILE W/ IBC Routine 08/23/2025 9:30 AM CDT Anemia, unspecified type History of pulmonary embolism RETICULOCYTES Routine 08/23/2025 9:30 AM CDT Anemia, unspecified type History of pulmonary embolism DIFFERENTIAL AUTO Routine 08/09/2025 11:31 AM CDT Anemia, unspecified type History of pulmonary embolism CBC WITH AUTO DIFFERENTIAL Routine 08/09 11:31 AM CDT Anemia, unspecified type History of pulmonary embolism FERRITIN Routine 08/09/2025 11:31 AM CDT Anemia, unspecified type History of pulmonary embolism IRON PROFILE W/ IBC Routine 08/09/2025 11:31 AM CDT Anemia, unspecified type History of pulmonary embolism RETICULOCYTES Routine 08/09/2025 11:31 AM CDT Anemia, unspecified type History of pulmonary embolism DIFFERENTIAL AUTO Routine 07/26/2025 11:00 AM CDT Anemia, unspecified type History of pulmonary embolism FERRITIN Routine 07/26/2025 11:00 AM CDT Anemia, unspecified type History of pulmonary embolism CBC WITH AUTO DIFFERENTIAL Routine 07/26 11:00 AM CDT Anemia, unspecified type History of pulmonary embolism RETICULOCYTES Routine 07/26/2025 11:00 AM CDT Anemia, unspecified type History of pulmonary embolism ESOPHAGOSCOPY 07/21/2025 10:47 AM CDT Malignant neoplasm of lower third of esophagus (HCC) Special Needs cryotherapy EGD 07/21/2025 10:36 AM CDT PROTIME-INR STAT 07/21/2025 8:42 AM CDT Malignant neoplasm of lower third of esophagus (HCC) Abnormal coagulation profile EGFR Routine 07/20/2025 9:59 AM CDT Malignant neoplasm of lower third of esophagus (HCC) DIFFERENTIAL AUTO Routine 07/20/2025 9:59 AM CDT Anemia, unspecified type History of pulmonary embolism COMPREHENSIVE METABOLIC PANEL Routine 9:59 AM CDT Malignant neoplasm of lower third of esophagus (HCC) FERRITIN Routine 07/20/2025 9:59 AM CDT Anemia, unspecified type History of pulmonary embolism IRON PROFILE W/ IBC Routine 07/20/2025 9:59 AM CDT Anemia, unspecified type History of pulmonary embolism CBC WITH AUTO DIFFERENTIAL Routine 07/20 9:59 AM CDT Anemia, unspecified type History of pulmonary embolism RETICULOCYTES Routine 07/20/2025 9:59 AM CDT Anemia, unspecified type History of pulmonary embolism PET/CT FDG SKULL TO THIGH Schedule Routine, Read Routine (OP Routine) 07/13/2025 11:18 AM CDT Malignant neoplasm of lower third of esophagus (HCC) POCT GLUCOSE DEVICE Routine 07/13/2025 9:48 AM CDT DIFFERENTIAL AUTO Routine 07/13/2025 9:30 AM CDT Anemia, unspecified type History of pulmonary embolism FERRITIN Routine 07/13/2025 9:30 AM CDT Anemia, unspecified type History of pulmonary embolism IRON PROFILE W/ IBC Routine 07/13/2025 9:30 AM CDT Anemia, unspecified type History of pulmonary embolism CBC WITH AUTO DIFFERENTIAL Routine 07/13 9:30 AM CDT Anemia, unspecified type History of pulmonary embolism RETICULOCYTES Routine 07/13/2025 9:30 AM CDT Anemia, unspecified type History of pulmonary embolism ESOPHAGOGASTRODUODENOSCOPY 06/28 1:15 PM CDT Malignant neoplasm [...] Read Routine (OP Routine) 12/13/2024 7:09 AM SCREW DOWN Malignant neoplasm of lower third of esophagus (HCC) COLONOSCOPY 11/17/2024 9:34 AM SCREW DOWN from Last 3 Months or Most Recently Relevant to Health Maintenance Results * XR Chest PA Lateral 2 Views (08/25/2025 4:59 PM CDT) Anatomical Region Laterality Modality Body, Chest N/A Computed Radiogr aphy 08/25/2025 5:10 PM CDT Impressions 08/25/2025 5:43 PM CDT Comparison is made to PET/CT dated 07/13/2025. Right internal jugular approach port catheter is in place with tip terminating over the superior vena cava. Cervical fusion hardware is present. Right upper quadrant cholecystomy clips. Cardiomediastinal silhouette is within normal limits. Moderate bibasilar atelectasis, greater on the left. No pleural effusion or pneumothorax. Aortic arch calcifications. Dictated by: Francisco Cárdenas M.D. The radiology attending physician has personally reviewed this study, and had reviewed and/or edited this written report and agrees with it. Electronically signed by: Naveen Huertas MD PHD Narrative 08/25/2025 5:43 PM CDT EXAMINATION: 2 view chest radiograph Procedure Note Naveen Huertas MD PhD - 08/25/2025 EXAMINATION: 2 view chest radiograph IMPRESSION: Comparison is made to PET/CT dated 07/13/2025. Right internal jugular approach port catheter is in place with tip terminating over the superior vena cava. Cervical fusion hardware is present. Right upper quadrant cholecystomy clips. Cardiomediastinal silhouette is within normal limits. Moderate bibasilar atelectasis, greater on the left. No pleural effusion or pneumothorax. Aortic arch calcifications. Dictated by: Francisco Cárdenas M.D. The radiology attending physician has personally reviewed this study, and had reviewed and/or edited this written report and agrees with it. Electronically signed by: Naveen Huertas MD PHD Paige Benoit MD IMG XR PROCEDURES Final Result * Troponin I high-sensitivity series (baseline, 2hr, 4hr, 6hr) (08/25/2025 4:43 PM CDT) Trop I hs 5 <=35 ng/L Comment: Interpretive Data For further hscTnI resources including the diagnostic algorithm and an aid in interpretation, copy and paste this link: [email or web address]/[email or web address] Current Interpretive Data last revised 2020. Blood 08/25/2025 4:43 PM CDT 08/25/2025 4:58 PM CDT us Paige Benoit MD LAB BLOOD ORDERABLES Fi nal Result Performing Organization Address City/[facility]/ZIP Co de Phone Number [facility] [place] [address] * (ABNORMAL) eGFR (08/25/2025 4:43 PM CDT) eGFR 47(L) >=60 mL/min/1. 73 m2 Comment: Interpretive Data [...] Current interpretive data was last reviewed 2021. Blood 08/25/2025 4:43 PM CDT 08/25/2025 4:58 PM CDT us Paige Benoit MD LAB BLOOD ORDERABLES Fi nal Result [facility] [place] [address] * (ABNORMAL) Differential, auto (08/25/2025 4:43 PM CDT) Neutrophil abs 2.39 1.50 - 6.50 K/cumm Imm gran abs 0.03 0.00 - 0.10 K/cumm [facility] Lymphocyte abs 0.72(L) 0.80 - 3.30 K/cumm [facility] Monocyte abs 0.87(H) 0.20 - 0.80 K/cumm [facility] Eosinophil abs 0.25 0.00 - 0.50 K/cumm [facility] Basophil abs 0.03 0.00 - 0.10 K/cumm [facility] Neutrophil pct 55.7 % [facility] Comment: Interpretive Data Percent cell count reference ranges are not reported, since discordance with absolute values may lead to misinterpretation of CBC data. Current Interpretive Data was last revised on 2018. Imm gran pct 0.7 % [facility] Comment: Interpretive Data Percent cell count reference ranges are not reported, since discordance with absolute values may lead to misinterpretation of CBC data. Current Interpretive Data was last revised on 2018. Lymphocyte pct 16.8 % [facility] Comment: Interpretive Data Percent cell count reference ranges are not reported, since discordance with absolute values may lead to misinterpretation of CBC data. Current Interpretive Data was last revised on 2018. Monocyte pct 20.3 % [facility] Comment: Interpretive Data Percent cell count reference ranges are not reported, since discordance with absolute values may lead to misinterpretation of CBC data. Current Interpretive Data was last revised on 2018. Eosinophil pct 5.8 % [facility] Comment: Interpretive Data Percent cell count reference ranges are not reported, since discordance with absolute values may lead to misinterpretation of CBC data. Current Interpretive Data was last revised on 2018. Basophil pct 0.7 % [facility] Comment: Interpretive Data Percent cell count reference ranges are not reported, since discordance with absolute values may lead to misinterpretation of CBC data. Current Interpretive Data was last revised on 2018. Blood 08/25/2025 4:43 PM CDT 08/25/2025 4:58 PM CDT us Paige Benoit MD LAB BLOOD ORDERABLES Fi nal Result [facility] Department [place] [address] * (ABNORMAL) CBC with auto differential (08/25/2025 4:43 PM CDT) [facility] WBC 4.29 3.80 - 9.90 K/cumm Hgb 9.0(L) 13.0 - 17.5 g/dL [facility] Hct 29.6(L) 38.9 - 50.3 % [facility] Plt 208 150 - 400 K/cumm [facility] MPV 8.4(L) 9.1 - 12.3 fL [facility] RBC 3.12(L) 4.30 - 5.80 M/cumm [facility] MCV 94.9 81.3 - 96.4 fL [facility] MCH 28.8 27.1 - 33.3 pg [facility] MCHC 30.4(L) 32.3 - 35.7 g/dL [facility] RDW CV 17.9(H) 11.1 - 14.9 % [facility] RDW SD 60.9(H) 35.7 - 48.1 fL [facility] NRBC abs 0.00 0.00 - 0.01 K/cumm [facility] Blood 08/25/2025 4:43 PM CDT 08/25/2025 4:58 PM CDT Paige Benoit MD LAB BLOOD ORDERABLES nal Result [facility] [place] [address] * aPTT (08/25/2025 4:43 PM CDT) [facility] aPTT 35 26 - 38 sec Comment: Interpretive Data Heparin therapeutic range: 66.0 - 100.0 seconds. Range based on correlation with therapeutic heparin activity range of 0.3 - 0.7 Units/mL. Current interpretive data was last revised on 2023. Blood 08/25/2025 4:43 PM CDT 08/25/2025 4:57 PM CDT Paige Benoit MD LAB BLOOD ORDERABLES Fi nal Result Performing Organization Address [facility] de Phone Number [facility] [place] [address] * (ABNORMAL) Protime-INR (08/25/2025 4:43 PM CDT) PT 15.6(H) 10.2 - 13.5 sec INR 1.39(H) 0.90 - 1.20 [facility] Comment: Interpretive data Oral anticoagulant therapeutic ranges: Venous thromboembolism prophylaxis or treatment: 2.0-3.0 CARDIOLOGY Standard range: 2.0-3.0 High-intensity range: 2.5-3.5 Refer to indication-specific guidelines for appropriate target ranges for prosthetic heart valve replacement. Current interpretive data was last revised on 2019. Blood 08/25/2025 4:43 PM CDT 08/25/2025 4:57 PM CDT Paige Benoit MD LAB BLOOD ORDERABLES Fi nal Result Performing Organization Address [facility] de Phone Number [facility] [place] [address] * (ABNORMAL) Comprehensive metabolic panel (08/25/2025 4:43 PM CDT) Pathologist [facility] Sodium 141 135 - 145 mmol/L Potassium, pl 3.8 3.3 - 4.9 mmol/L [facility] Chloride 106 97 - 110 mmol/L [facility] CO2 23 22 - 32 mmol/L [facility] Anion gap 12 2 - 15 mmol/L [facility] BUN 15 6 - 25 mg/dL [facility] Creatinine 1.53(H) 0.80 - 1.30 mg/dL [facility] Glucose 107 70 - 199 mg/dL [facility] Comment: Interpretive Data Fasting glucose >/= 126 [...] Current interpretive data was last revised 2022. Calcium 8.4(L) 8.5 - 10.3 mg/dL [facility] Bilirubin, total 0.2 0.1 - 1.2 mg/dL [facility] Protein, pl 6.5 6.5 - 8.5 g/dL [facility] Albumin 3.6 3.5 - 5.0 g/dL [facility] Alk phos 70 40 - 130 Units/L [facility] ALT 12 7 - 55 Units/L [facility] AST 15 10 - 50 Units/L [facility] Blood 08/25/2025 4:43 PM CDT 08/25/2025 4:58 PM CDT us Paige Benoit MD LAB BLOOD ORDERABLES Fi nal Result [facility] Department [place] [address] * ECG 12-LEAD (08/25/2025 2:54 PM CDT) Narrative [facility] - 08/25/2025 2:54 PM CDT Gisel Pressley MD PhD 08/25/2025 2:56 PM ECG 12 lead Date/Time: 08/25/2025 2:54 PM Performed by: Gisel Pressley MD PhD Authorized by: Cameron Huynh MD Rate: ECG rate: 73 ECG rate assessment: normal Rhythm: Rhythm: sinus rhythm Ectopy: Ectopy: PVCs PVCs: Unifocal and frequent QRS: QRS axis: Left QRS intervals: Normal Conduction: Conduction: normal ST segments: ST segments: Normal T waves: T waves: non-specific Previous ECG: Previous ECG: Compared to current Date of previous EC11/17/2024 Comparison ECG info: Previously bradycardic which has resolved and now has some PVCs Interpretation: Interpretation: No acute injury pattern Recommended Follow-up: Recommended follow up: further workup in the ED us Muriel Dodson MD ECG ORDERABLES Fin al Result Performing Organization Address City/[facility]/ZIP Co de Phone Number [facility] * (ABNORMAL) Protime-INR (08/23/2025 9:36 AM CDT) PT 20.0(H) 12.0 - 14.6 sec Comment:Testing performed by : [address] [address] INR 1.7(H) 0.9 - 1.2 [facility] Comment: Interpretive data Oral anticoagulant therapeutic ranges: Venous thromboembolism prophylaxis or treatment: 2.0-3.0 CARDIOLOGY Standard range: 2.0-3.0 High-intensity range: 2.5-3.5 Refer to indication-specific guidelines for appropriate target ranges for prosthetic heart valve replacement. Current interpretive data was last revised on 2019. Testing performed by: [address] [address] Blood 08/23/2025 9:36 AM CDT 08/23/2025 11:31 AM CDT us Jerry Peguero MD LAB BLOOD ORDERABLES Final Result Performing Organization Address City/[facility] Co de Phone Number [facility] [address] [facility] Department [place] [address] * (ABNORMAL) Differential, auto (08/23/2025 9:30 AM CDT) Neutrophil abs 3.44 1.50 - 6.50 K/cumm Comment:Testing performed by : [address] [address] Imm gran abs 0.02 0.00 - 0.10 K/cumm [facility] Comment:Testing performed by : [address] [place]., [address] Lymphocyte abs 0.62(L) 0.80 - 3.30 K/cumm [facility] Comment:Testing performed by : [address] [address] Monocyte abs 0.59 0.20 - 0.80 K/cumm [facility] Comment:Testing performed by : [address] [address] Eosinophil abs 0.29 0.00 - 0.50 K/cumm [facility] Comment:Testing performed by : [address], [place]., [address] Basophil abs 0.03 0.00 - 0.10 K/cumm [facility] Comment:Testing performed by : [address] [address] Neutrophil pct 69.0 % [facility] Comment: Interpretive Data Percent cell count reference ranges are not reported, since discordance with absolute values may lead to misinterpretation of CBC data. Current Interpretive Data was last revised on 2018. Testing performed by: [address] [address] Imm gran pct 0.4 % [facility] Comment: Interpretive Data Percent cell count reference ranges are not reported, since discordance with absolute values may lead to misinterpretation of CBC data. Current Interpretive Data was last revised on 2018. Testing performed by: [address] [address] Lymphocyte pct 12.4 % [facility] Comment: Interpretive Data Percent cell count reference ranges are not reported, since discordance with absolute values may lead to misinterpretation of CBC data. Current Interpretive Data was last revised on 2018. Testing performed by: [address] [address] Monocyte pct 11.8 % [facility] Comment: Interpretive Data Percent cell count reference ranges are not reported, since discordance with absolute values may lead to misinterpretation of CBC data. Current Interpretive Data was last revised on 2018. Testing performed by: [address] [address] Eosinophil pct 5.8 % [facility] Comment: Interpretive Data Percent cell count reference ranges are not reported, since discordance with absolute values may lead to misinterpretation of CBC data. Current Interpretive Data was last revised on 2018. Testing performed by: [address] [address] Basophil pct 0.6 % [facility] Comment: Interpretive Data Percent cell count reference ranges are not reported, since discordance with absolute values may lead to misinterpretation of CBC data. Current Interpretive Data was last revised on 2018. Testing performed by: [address] [address] Blood 08/23/2025 9:30 AM CDT 08/23/2025 9:34 AM CDT Mihaela Rod [employer] LAB BLOOD ORDERABLES Fin al Result Performing Organization Address [facility] Co de Phone Number [address] [place] [address] * (ABNORMAL) Iron profile w/ IBC (08/23/2025 9:30 AM CDT) Iron 66 50 - 150 mcg/dL Comment:Testing performed by : [address] [address] TIBC 215(L) 250 - 400 mcg/dL [facility] Comment:Testing performed by : [address] [address] Transferrin saturation 31 20 - 50 % [facility] Comment:Testing performed by : [address] [address] Blood 08/23/2025 9:30 AM CDT 08/23/2025 11:31 AM CDT Mihaela Rod [employer] LAB BLOOD ORDERABLES Fin al Result Performing Organization Address [facility]/ZIP Co de Phone Number [address] [place] [address] * (ABNORMAL) CBC with auto differential (08/23/2025 9:30 AM CDT) WBC 4.99 3.80 - 9.90 K/cumm Comment:Testing performed by : [address] [address] Hgb 9.4(L) 13.0 - 17.5 g/dL [facility] Comment:Testing performed by : [address] [address] Hct 29.7(L) 38.9 - 50.3 % [facility] Comment:Testing performed by : [address] [address] Plt 227 150 - 400 K/cumm [facility] Comment:Testing performed by : [address] [address] MPV 8.8(L) 9.1 - 12.3 fL [facility] Comment:Testing performed by : [address], [address] RBC 3.19(L) 4.30 - 5.80 M/cumm [facility] Comment:Testing performed by : [address] [address] MCV 93.1 81.3 - 96.4 fL [facility] Comment:Testing performed by : [address] [address] MCH 29.5 27.1 - 33.3 pg [facility] Comment:Testing performed by : [address] [address] MCHC 31.6(L) 32.3 - 35.7 g/dL [facility] Comment:Testing performed by : [address], [address] RDW CV 17.5(H) 11.1 - 14.9 % [facility] Comment:Testing performed by : [address], [address] RDW SD 59.7(H) 35.7 - 48.1 fL [facility] Comment:Testing performed by : [address], [address] NRBC abs 0.00 0.00 - 0.01 K/cumm [facility] Comment:Testing performed by : [address] [address] ANC Prelim 3.44 1.50 - 6.50 K/cumm [facility] Comment: Interpretive Data The rapid ANC is a preliminary automated count and may vary from the final ANC (Neut Abs) reported in the WBC differential that follows. Current interpretive data was last revised 2025. Testing performed by: [address] [address] Blood 08/23/2025 9:30 AM CDT 08/23/2025 9:34 AM CDT Mihaela Rod [employer] LAB BLOOD ORDERABLES Fin al Result Performing Organization Address City/[facility] Co de Phone Number [place] [phone] [facility] [place] [address] * (ABNORMAL) Reticulocyte Count (08/23/2025 9:30 AM CDT) Retics, absolute 101(H) 20 - 87 K/cumm Comment:Testing performed by : [address] [address] Retics 3.2(H) 0.4 - 2.9 % [facility] Comment:Testing performed by : [address] [address] Reticulocyte Hgb 32.2 30.5 - 38.0 pg [facility] Comment:Testing performed by : [address] [address] Blood 08/23/2025 9:30 AM CDT 08/23/2025 9:34 AM CDT Mihaela Rod [employer] LAB BLOOD ORDERABLES Fin al Result Performing Organization Address City/[facility] Co de Phone Number [place] [phone] [facility] [place] [address] * Ferritin (08/23/2025 9:30 AM CDT) Ferritin 315 30 - 400 ng/mL Comment:Testing performed by : [address] [address] Blood 08/23/2025 9:30 AM CDT 08/23/2025 11:31 AM CDT us Mihaela Rod [employer] LAB BLOOD ORDERABLES Fin al Result [facility] [address] [facility] Department [place] [address] * Differential, auto (08/09/2025 11:31 AM CDT) Pathologist [facility] Neutrophil abs 3.58 1.50 - 6.50 K/cumm Comment:Testing performed by : [address] [address] Imm gran abs 0.03 0.00 - 0.10 K/cumm [facility] Comment:Testing performed by : [address] [address] Lymphocyte abs 0.90 0.80 - 3.30 K/cumm [facility] Comment:Testing performed by : [address] [address] Monocyte abs 0.70 0.20 - 0.80 K/cumm [facility] Comment:Testing performed by : [address] [address] Eosinophil abs 0.29 0.00 - 0.50 K/cumm [facility] Comment:Testing performed by : [address] [address] Basophil abs 0.03 0.00 - 0.10 K/cumm [facility] Comment:Testing performed by : [address] [address] Neutrophil pct 64.8 % [facility] Comment: Interpretive Data Percent cell count reference ranges are not reported, since discordance with absolute values may lead to misinterpretation of CBC data. Current Interpretive Data was last revised on 2018. Testing performed by: [address] [address] Imm gran pct 0.5 % [facility] Comment: Interpretive Data Percent cell count reference ranges are not reported, since discordance with absolute values may lead to misinterpretation of CBC data. Current Interpretive Data was last revised on 2018. Testing performed by: [address] [address] Lymphocyte pct 16.3 % [facility] Comment: Interpretive Data Percent cell count reference ranges are not reported, since discordance with absolute values may lead to misinterpretation of CBC data. Current Interpretive Data was last revised on 2018. Testing performed by: [address] [address] Monocyte pct 12.7 % [facility] Comment: Interpretive Data Percent cell count reference ranges are not reported, since discordance with absolute values may lead to misinterpretation of CBC data. Current Interpretive Data was last revised on 2018. Testing performed by: [address] [address] Eosinophil pct 5.2 % [facility] Comment: Interpretive Data Percent cell count reference ranges are not reported, since discordance with absolute values may lead to misinterpretation of CBC data. Current Interpretive Data was last revised on 2018. Testing performed by: [address] [address] Basophil pct 0.5 % [facility] Comment: Interpretive Data Percent cell count reference ranges are not reported, since discordance with absolute values may lead to misinterpretation of CBC data. Current Interpretive Data was last revised on 2018. Testing performed by: [address] [address] Blood 08/09/2025 11:3 1 AM CDT 08/09/2025 11:38 AM CDT us Mihaela Rod NP LAB BLOOD ORDERABLES Fin al Result [facility] [address] [facility] Department [place] [address] * (ABNORMAL) Iron profile w/ IBC (08/09/2025 11:31 AM CDT) Iron 50 50 - 150 mcg/dL Comment:Testing performed by : [address] [address] TIBC 237(L) 250 - 400 mcg/dL [facility] Comment:Testing performed by : [address] [address] Transferrin saturation 21 20 - 50 % [facility] Comment:Testing performed by : [address] [address] Blood 08/09/2025 11:3 1 AM CDT 08/09/2025 1:44 PM CDT Mihaela Rod [employer] LAB BLOOD ORDERABLES Fin al Result [facility] [address] [facility] Department [place] [address] * (ABNORMAL) CBC with auto differential (08/09/2025 11:31 AM CDT) Pathologist [facility] WBC 5.53 3.80 - 9.90 K/cumm Comment:Testing performed by : [address] [address] Hgb 9.5(L) 13.0 - 17.5 g/dL [facility] Comment:Testing performed by : [address] [address] Hct 30.3(L) 38.9 - 50.3 % [facility] Comment:Testing performed by : [address] [address] Plt 227 150 - 400 K/cumm [facility] Comment:Testing performed by : [address] [address] MPV 8.7(L) 9.1 - 12.3 fL [facility] Comment:Testing performed by : [address] [address] RBC 3.30(L) 4.30 - 5.80 M/cumm [facility] Comment:Testing performed by : [address] [address] MCV 91.8 81.3 - 96.4 fL [facility] Comment:Testing performed by : [address] [address] MCH 28.8 27.1 - 33.3 pg [facility] Comment:Testing performed by : [address] [address] MCHC 31.4(L) 32.3 - 35.7 g/dL [facility] Comment:Testing performed by : [address] [address] RDW CV 16.0(H) 11.1 - 14.9 % [facility] Comment:Testing performed by : [address] [address] RDW SD 53.5(H) 35.7 - 48.1 fL [facility] Comment:Testing performed by : [address] [address] NRBC abs 0.00 0.00 - 0.01 K/cumm [facility] Comment:Testing performed by : [address] [address] ANC Prelim 3.58 1.50 - 6.50 K/cumm [facility] Comment: Interpretive Data The rapid ANC is a preliminary automated count and may vary from the final ANC (Neut Abs) reported in the WBC differential that follows. Current interpretive data was last revised 2025. Testing performed by: [address] [address] Blood 08/09/2025 11:3 1 AM CDT 08/09/2025 11:38 AM CDT us Mihaela Rod NP LAB BLOOD ORDERABLES Fin al Result [facility] [address] [facility] Department of Laboratories [place], [place] [id number] * Reticulocyte Count (08/09/2025 11:31 AM CDT) [facility] Signature Retics, absolute 73 20 - 87 K/cumm Comment:Testing performed by : [address] [address] Retics 2.2 0.4 - 2.9 % [facility] Comment:Testing performed by : [address] [address] Reticulocyte Hgb 31.1 30.5 - 38.0 pg [facility] Comment:Testing performed by : [address] [address] Blood 08/09/2025 11:3 1 AM CDT 08/09/2025 11:38 AM CDT Mihaela Rod [employer] LAB BLOOD ORDERABLES Fin al Result Performing Organization Address [facility] Co de Phone Number [address] [place] [address] * Ferritin (08/09/2025 11:31 AM CDT) Pathologist [facility] Ferritin 47 30 - 400 ng/mL Comment:Testing performed by : [address] [address] Blood 08/09/2025 11:3 1 AM CDT 08/09/2025 1:44 PM CDT Mihaela Rod [employer] IN[employer] LAB BLOOD ORDERABLES Fin al Result Performing Organization Address [facility] de Phone Number [address] [place] [place] [address] * (ABNORMAL) Differential, auto (07/26/2025 11:00 AM CDT) Pathologist [facility] Neutrophil abs 2.32 1.50 - 6.50 K/cumm Comment:Testing performed by : [address] [address] Imm gran abs 0.02 0.00 - 0.10 K/cumm [facility] Comment:Testing performed by : [address] [address] Lymphocyte abs 0.58(L) 0.80 - 3.30 K/cumm [facility] Comment:Testing performed by : [address], [place]., [address] Monocyte abs 0.53 0.20 - 0.80 K/cumm [facility] Comment:Testing performed by : [address], [place]., [address] Eosinophil abs 0.24 0.00 - 0.50 K/cumm [facility] Comment:Testing performed by : [address], [place]., [address] Basophil abs 0.03 0.00 - 0.10 K/cumm [facility] Comment:Testing performed by : [address] [address] Neutrophil pct 62.4 % [facility] Comment: Interpretive Data Percent cell count reference ranges are not reported, since discordance with absolute values may lead to misinterpretation of CBC data. Current Interpretive Data was last revised on 2018. Testing performed by: [address] [address] Imm gran pct 0.5 % [facility] Comment: Interpretive Data Percent cell count reference ranges are not reported, since discordance with absolute values may lead to misinterpretation of CBC data. Current Interpretive Data was last revised on 2018. Testing performed by: [address] [address] Lymphocyte pct 15.6 % [facility] Comment: Interpretive Data Percent cell count reference ranges are not reported, since discordance with absolute values may lead to misinterpretation of CBC data. Current Interpretive Data was last revised on 2018. Testing performed by: [address] [address] Monocyte pct 14.2 % [facility] Comment: Interpretive Data Percent cell count reference ranges are not reported, since discordance with absolute values may lead to misinterpretation of CBC data. Current Interpretive Data was last revised on 2018. Testing performed by: [address] [address] Eosinophil pct 6.5 % [facility] Comment: Interpretive Data Percent cell count reference ranges are not reported, since discordance with absolute values may lead to misinterpretation of CBC data. Current Interpretive Data was last revised on 2018. Testing performed by: [address] [address] Basophil pct 0.8 % [facility] Comment: Interpretive Data Percent cell count reference ranges are not reported, since discordance with absolute values may lead to misinterpretation of CBC data. Current Interpretive Data was last revised on 2018. Testing performed by: [address] [address] Blood 07/26/2025 11:0 0 AM CDT 07/26/2025 11:02 AM CDT Nena Cano [employer] LAB BLOOD ORDERABLES Final Result [facility] [address] [facility] Department [place] [address] * (ABNORMAL) CBC with auto differential (07/26/2025 11:00 AM CDT) WBC 3.72(L) 3.80 - 9.90 K/cumm Comment:Testing performed by : [address] [address] Hgb 9.7(L) 13.0 - 17.5 g/dL [facility] Comment:Testing performed by : [address] [address] Hct 31.2(L) 38.9 - 50.3 % [facility] Comment:Testing performed by : [address] [address] Plt 201 150 - 400 K/cumm [facility] Comment:Testing performed by : [address] [address] MPV 8.6(L) 9.1 - 12.3 fL [facility] Comment:Testing performed by : [address] [address] RBC 3.31(L) 4.30 - 5.80 M/cumm [facility] Comment:Testing performed by : [address] [address] MCV 94.3 81.3 - 96.4 fL [facility] Comment:Testing performed by : [address] [address] MCH 29.3 27.1 - 33.3 pg [facility] Comment:Testing performed by : [address] [address] MCHC 31.1(L) 32.3 - 35.7 g/dL [facility] Comment:Testing performed by : [address] [address] RDW CV 15.9(H) 11.1 - 14.9 % [facility] Comment:Testing performed by : [address] [address] RDW SD 54.7(H) 35.7 - 48.1 fL [facility] Comment:Testing performed by : [address] [address] NRBC abs 0.00 0.00 - 0.01 K/cumm [facility] Comment:Testing performed by : [address] [address] ANC Prelim 2.32 1.50 - 6.50 K/cumm [facility] Comment: Interpretive Data The rapid ANC is a preliminary automated count and may vary from the final ANC (Neut Abs) reported in the WBC differential that follows. Current interpretive data was last revised 2025. Testing performed by: [address] [address] Blood 07/26/2025 11:0 0 AM CDT 07/26/2025 11:02 AM CDT us Nena Cano NP LAB BLOOD ORDERABLES Final Result [facility] [address] [facility] Department [place] [address] * (ABNORMAL) Reticulocyte Count (07/26/2025 11:00 AM CDT) Retics, absolute 73 20 - 87 K/cumm Comment:Testing performed by : [address] [address] Retics 2.2 0.4 - 2.9 % [facility] Comment:Testing performed by : [address] [address] Reticulocyte Hgb 28.6(L) 30.5 - 38.0 pg [facility] Comment:Testing performed by : [address], [address] Blood 07/26/2025 11:0 0 AM CDT 07/26/2025 11:02 AM CDT Nena Cano [employer] IN[employer] LAB BLOOD ORDERABLES Final Result Performing Organization Address [facility] Co de Phone Number [address] [place] [employer] [place] [place] [address] * Ferritin (07/26/2025 11:00 AM CDT) [facility] Ferritin 49 30 - 400 ng/mL Comment:Testing performed by : [address], [address] Blood 07/26/2025 11:0 0 AM CDT 07/26/2025 11:44 AM CDT Nena Cano [employer] INST[employer]ER LAB BLOOD ORDERABLES Final Result Performing Organization Address [facility] Co de Phone Number [address] [employer] [place] [id number] * EGD (07/21/2025 10:36 AM CDT) Anatomical Region Laterality Modality Other Narrative Procedure Note Jerry Peguero MD - 07/21/2025 10:36 AM CDT GI ENDOSCOPY [facility] Patient Name: Marshall Olson Procedure Date: 07/21/2025 10:36 AM Date of : 1950 Admit Type: Outpatient Age: 75 Gender: Male Attending MD: Jerry Peguero M.D., Room: [facility] ENDOSCOPY ROOM 1 Note Status: Finalized Procedure: Upper GI endoscopy (esophagoscopy) Indications: Therapeutic procedure - cryotherapy for esophageal adenocarcinoma Referring MD: Francisco Jones D.O. Providers: Jerry [...] was passed under direct vision. The GIF [id number] endoscope was introduced through the mouth, and advanced to the second partof duodenum. The upper GI endoscopy was accomplished without difficulty. The patient tolerated the procedure well. Findings: One cratered esophageal ulcer with no stigmata of recent bleeding was found in the lower third of the esophagus. There was an associated stenosis in this area which could not be traversed. Impression: - Esophageal ulcer with no stigmata of recentbleeding with associated stenosis. Given the ulceration, no cryotherapy could be performed. Recommendation: - Observe patient's clinical course. - Return to referring provider as previouslyscheduled. - Repeat upper endoscopy with cryotherapy in 3weeks for retreatment. - Carafate QID x 2 weeks. Attending Participation: I personally performed the entire procedure. Electronically signed by Jerry Peguero M.D. Jerry Peguero M.D. 07/21/2025 12:15:40 PM . Number of Addenda: 0 Note Initiated On: 07/21/2025 10:36 AM us Jerry Peguero MD ENDOSCOPY PROCEDURES Final Result * (ABNORMAL) Protime-INR (07/21/2025 8:42 AM CDT) PT 14.4(H) 10.2 - 13.5 sec INR 1.28(H) 0.90 - 1.20 ISAAC GOETZ Comment: Interpretive data Oral anticoagulant therapeutic ranges: Venous thromboembolism prophylaxis or treatment: 2.0-3.0 CARDIOLOGY Standard range: 2.0-3.0 High-intensity range: 2.5-3.5 Refer to indication-specific guidelines for appropriate target ranges for prosthetic heart valve replacement. Current interpretive data was last revised on 2019. Blood 07/21/2025 8:42 AM CDT 07/21/2025 8:49 AM CDT Jerry Peguero MD LAB BLOOD ORDERABLES Final Result ISAAC CERVANTES [facility] Department of Laboratories [place], [place] [id number] * (ABNORMAL) eGFR (07/20/2025 9:59 AM CDT) eGFR 45(L) >=60 mL/min/1. 73 [...] was last reviewed 2021. Testing performed by: [address] [address] Blood 07/20/2025 9:59 AM CDT 07/20/2025 10:10 AM CDT us Francisco Jones DO LAB BLOOD ORDERABLES Final R esult ISAAC [address] [facility] Department [place] [address] * (ABNORMAL) Differential, auto (07/20/2025 9:59 AM CDT) Neutrophil abs 2.59 1.50 - 6.50 K/cumm Comment:Testing performed by : [address] [address] Imm gran abs 0.02 0.00 - 0.10 K/cumm ISAAC SERNA Comment:Testing performed by : [address] [address] Lymphocyte abs 0.68(L) 0.80 - 3.30 K/cumm ISAAC Comment:Testing performed by : [address] [address] Monocyte abs 0.56 0.20 - 0.80 K/cumm [facility] Comment:Testing performed by : [address] [address] Eosinophil abs 0.27 0.00 - 0.50 K/cumm [facility] Comment:Testing performed by : [address] [address] Basophil abs 0.03 0.00 - 0.10 K/cumm [facility] Comment:Testing performed by : [address] [address] Neutrophil pct 62.4 % [facility] Comment: Interpretive Data Percent cell count reference ranges are not reported, since discordance with absolute values may lead to misinterpretation of CBC data. Current Interpretive Data was last revised on 2018. Testing performed by: [address] [address] Imm gran pct 0.5 % [facility] Comment: Interpretive Data Percent cell count reference ranges are not reported, since discordance with absolute values may lead to misinterpretation of CBC data. Current Interpretive Data was last revised on 2018. Testing performed by: [address] [address] Lymphocyte pct 16.4 % [facility] Comment: Interpretive Data Percent cell count reference ranges are not reported, since discordance with absolute values may lead to misinterpretation of CBC data. Current Interpretive Data was last revised on 2018. Testing performed by: [address] [address] Monocyte pct 13.5 % [facility] Comment: Interpretive Data Percent cell count reference ranges are not reported, since discordance with absolute values may lead to misinterpretation of CBC data. Current Interpretive Data was last revised on 2018. Testing performed by: [address] [address] Eosinophil pct 6.5 % [facility] Comment: Interpretive Data Percent cell count reference ranges are not reported, since discordance with absolute values may lead to misinterpretation of CBC data. Current Interpretive Data was last revised on 2018. Testing performed by: [address] [address] Basophil pct 0.7 % ISAAC Comment: Interpretive Data Percent cell count reference ranges are not reported, since discordance with absolute values may lead to misinterpretation of CBC data. Current Interpretive Data was last revised on 2018. Testing performed by: [address] [address] Blood 07/20/2025 9:59 AM CDT 07/20/2025 10:10 AM CDT Nena Cano [employer] LAB BLOOD ORDERABLES Final Result Performing Organization Address [facility] Co de Phone Number [facility] [address] [facility] [place] [address] * (ABNORMAL) Iron profile w/ IBC (07/20/2025 9:59 AM CDT) Iron 52 50 - 150 mcg/dL Comment:Testing performed by : [address] [address] TIBC 221(L) 250 - 400 mcg/dL ISAAC Comment:Testing performed by : [address] [address] Transferrin saturation 24 20 - 50 % ISAAC Comment:Testing performed by : [address] [address] Blood 07/20/2025 9:59 AM CDT 07/20/2025 11:36 AM CDT Nena Cano [employer] LAB BLOOD ORDERABLES Final Result Performing Organization Address [facility] Co de Phone Number [place] [phone] [facility] [place] [address] * (ABNORMAL) CBC with auto differential (07/20/2025 9:59 AM CDT) WBC 4.15 3.80 - 9.90 K/cumm Comment:Testing performed by : [address] [address] Hgb 9.7(L) 13.0 - 17.5 g/dL ISAAC Comment:Testing performed by : [address], [address] Hct 31.0(L) 38.9 - 50.3 % ISAAC Comment:Testing performed by : [address] [address] Plt 220 150 - 400 K/cumm ISAAC Comment:Testing performed by : [address] [address] MPV 8.7(L) 9.1 - 12.3 fL ISAAC Comment:Testing performed by : [address], [address] RBC 3.28(L) 4.30 - 5.80 M/cumm ISAAC Comment:Testing performed by : [address] [address] MCV 94.5 81.3 - 96.4 fL ISAAC Comment:Testing performed by : [address] [address] MCH 29.6 27.1 - 33.3 pg ISAAC Comment:Testing performed by : [address] [address] MCHC 31.3(L) 32.3 - 35.7 g/dL ISAAC Comment:Testing performed by : [address] [address] RDW CV 15.8(H) 11.1 - 14.9 % ISAAC Comment:Testing performed by : [address] [address] RDW SD 54.4(H) 35.7 - 48.1 fL ISAAC Comment:Testing performed by : [address] [address] NRBC abs 0.00 0.00 - 0.01 K/cumm ISAAC Comment:Testing performed by : [address] [address] ANC Prelim 2.59 1.50 - 6.50 K/cumm ISAAC Comment: Interpretive Data The rapid ANC is a preliminary automated count and may vary from the final ANC (Neut Abs) reported in the WBC differential that follows. Current interpretive data was last revised 2025. Testing performed by: [address] [address] Blood 07/20/2025 9:59 AM CDT 07/20/2025 10:10 AM CDT Nena Cano [employer] LAB BLOOD ORDERABLES Final Result Performing Organization Address [facility] de Phone Number [id number] [place] [address] * (ABNORMAL) Reticulocyte Count (07/20/2025 9:59 AM CDT) [facility] Retics, absolute 66 20 - 87 K/cumm Comment:Testing performed by : [address] [address] Retics 2.0 0.4 - 2.9 % ISAAC Comment:Testing performed by : [address] [address] Reticulocyte Hgb 30.0(L) 30.5 - 38.0 pg ISAAC Comment:Testing performed by : [address] [address] Blood 07/20/2025 9:59 AM CDT 07/20/2025 10:10 AM CDT Nena Cano LAB BLOOD ORDERABLES Final Result Performing Organization Address [facility] de Phone Number [facility] [address] [place] [address] [employer] [place] [address] * Ferritin (07/20/2025 9:59 AM CDT) [facility] Ferritin 59 30 - 400 ng/mL Comment:Testing performed by : [address] [address] Blood 07/20/2025 9:59 AM CDT 07/20/2025 11:36 AM CDT Nena Mamta Jerome [employer] LAB BLOOD ORDERABLES Final Result IS[facility]AC [address] [facility] Department [place] [address] * (ABNORMAL) Comprehensive metabolic panel (07/20/2025 9:59 AM CDT) Sodium 140 135 - 145 mmol/L Comment:Testing performed by : [address] [address] Potassium, pl 4.4 3.3 - 4.9 mmol/L ISAAC Comment:Testing performed by : [address] [address] Chloride 109 97 - 110 mmol/L ISAAC Comment:Testing performed by : [address] [address] CO2 21(L) 22 - 32 mmol/L ISAAC Comment:Testing performed by : [address] [address] Anion gap 10 2 - 15 mmol/L ISAAC Comment:Testing performed by : [address] [address] BUN 18 6 - 25 mg/dL ISAAC Comment:Testing performed by : [address] [address] Creatinine 1.60(H) 0.80 - 1.30 mg/dL ISAAC Comment:Testing performed by : [address] [address] Glucose 96 70 - 199 mg/dL ISAAC Comment: Interpretive [...] was last revised 2022. Testing performed by: [facility], [address] [place] [address]., [address] Calcium 9.1 8.5 - 10.3 mg/dL ISAAC Comment:Testing performed by : [facility], [address] [place] [address]., [address] Bilirubin, total 0.3 0.1 - 1.2 mg/dL ISAAC Comment:Testing performed by : [address] [address] Protein, pl 6.5 6.5 - 8.5 g/dL ISAAC Comment:Testing performed by : [address], [address] Albumin 3.7 3.5 - 5.0 g/dL ISAAC Comment:Testing performed by : [address], [address] Alk phos 67 40 - 130 Units/L ISAAC Comment:Testing performed by : [address] [address] ALT 9 7 - 55 Units/L ISAAC Comment:Testing performed by : [address], [address] AST 14 10 - 50 Units/L ISAAC Comment:Testing performed by : [address] [address] Blood 07/20/2025 9:59 AM CDT 07/20/2025 10:10 AM CDT Francisco Jones DO LAB BLOOD ORDERABLES Final R esult [facility] [address] [facility] Department [place] [address] * PET/CT FDG Skull to Thigh (07/13/2025 11:18 AM CDT) Anatomical Region Laterality Modality N/A Positron Emissio n Tomography (PET) 07/13/2025 11:3 3 AM CDT Narrative 07/13/2025 12:21 PM CDT EXAM DESCRIPTION: PET/CT FDG SKULL TO THIGH RADIOPHARMACEUTICAL: 11.8 mCi F-18 Fluorodeoxyglucose (FDG) via a right port IV site REASON FOR STUDY: Esophageal cancer. Last chemotherapy 06/14/2025. Last reported radiation therapy 02/27/2025. History of prostate cancer. TECHNIQUE: The patient's fasting blood glucose level, measured by glucometer before injection of FDG, was 101 mg/dL. After intravenous administration of FDG, noncontrast CT images were obtained for attenuation correction and for fusion with emission PET images to allow for anatomical localization of PET findings. Emission PET images were then obtained. The reported standardized uptake value maximum (SUVmax) values have been normalized to body weight (SUVbw). The area imaged spanned the region from the skull base to the proximal thighs . The time from injection of FDG to start of imaging was 67 minutes. COMPARISON: PET-CT 04/10/2025 , 12/31/2021 FINDINGS: For reference, the maximum SUV of the ascending thoracic aorta is 2.8 . The maximum SUV of the liver is 4.9 . Head: Normal FDG uptake is seen in the included portion of the brain. Neck: Focal uptake within a 2 cm left parotid nodule with an SUV of 27.2 compared to 33.6 previously. This likely represents a Warthin's tumor or pleomorphic adenoma. Brown fat activation in the neck. No suspicious hypermetabolic cervical lymphadenopathy. A 2 cm left supraclavicular lymph node has an SUV of 2.6 compared to 3 previously. Chest: No hypermetabolic lymphadenopathy in the axillae, mediastinum, or miranda. Minimal atelectasis or scarring within the lingula without significant FDG uptake is unchanged. Heart projects borderline enlarged. Trace coronary artery calcification. No pericardial or pleural effusion. Aneurysmal dilatation of the ascending thoracic aorta measuring 4.2 cm is unchanged. Right chest port tip terminates at the superior cavoatrial junction. Focal uptake in the distal esophagus with an SUV of 6.2 compared to 7.3 previously. There is associated circumferential wall thickening. No adjacent hypermetabolic lymphadenopathy. Abdomen and Pelvis: No focal hypermetabolic liver lesion. Prior cholecystectomy. The spleen is normal. Normal pancreas without focal FDG activity. Presumed physiologic uptake within the adrenal glands. Bilateral renal cysts are grossly similar and require no specific follow-up. Hyperdense cyst in the upper pole of the right kidney measuring 1.3 cm likely represents a proteinaceous or hemorrhagic cyst. Calcification measuring 5 mm in the interpolar right kidney is unchanged. There is no hydronephrosis. The bladder is decompressed and incompletely evaluated. Presumed physiologic uptake within the anal sphincter. Photopenic low-attenuation lesion in the right pelvic sidewall likely representing a postoperative seroma/lymphocele. This measures 2.5 cm and is grossly unchanged from 202. Small amount of free pelvic fluid is grossly similar. Atherosclerotic calcification of the abdominal aorta without aneurysm. Postoperative change in the anterior abdominal wall. Bones: No acute or aggressive appearing osseous lesions. Pedicle screw and mercy fixation of the lumbosacral spine. No associated abnormal FDG uptake. Relative photopenia in the sacrum and midthoracic spine likely related to history of radiation. IMPRESSION: 1. Slight decrease in the metabolic activity of the distal esophagus with an SUV of 6.2 compared to 7.3 previously. This could represent residual tumor or post treatment change. 2. Slight decrease in the metabolic activity of the left supraclavicular lymph node with an SUV of 2.6 compared to 3 previously. This was present in 2021 and favored to be reactive. 3. Grossly stable uptake within the left parotid nodule likely representing a Warthin's tumor or pleomorphic adenoma. 4. No new suspicious hypermetabolic abnormalities. THIS IS AN ELECTRONICALLY VERIFIED FINAL REPORT 07/13/2025 12:21 PM - Electronically signed by Serg Hussein M.D. LB: BEVERLEY Report ID: [id number] Reading Location: [id number] Procedure Note Serg Hussein MD - 07/13/2025 EXAM DESCRIPTION: PET/CT FDG SKULL TO THIGH RADIOPHARMACEUTICAL: 11.8 mCi F-18 Fluorodeoxyglucose (FDG) via a rightport IV site REASON FOR STUDY: Esophageal cancer. Last chemotherapy 06/14/2025. Last reported radiation therapy 02/27/2025. History of prostate cancer. TECHNIQUE: The patient's fasting blood glucose level, measured byglucometer before injection of FDG, was 101 mg/dL. After intravenous administrationof FDG, noncontrast CT images were obtained for attenuation correction andfor fusion with emission PET images to allow for anatomical localization ofPET findings. Emission PET images were then obtained. The reportedstandardized uptake value maximum (SUVmax) values have been normalized to body weight (SUVbw). The area imaged spanned the region from the skull base to the proximal thighs . The time from injection of FDG to start of imaging was67 minutes. COMPARISON: PET-CT 04/10/2025 , 12/31/2021 FINDINGS: For reference, the maximum SUV of the ascending thoracic aortais 2.8 . The maximum SUV of the liver is 4.9 . Head: Normal FDG uptake is seen in the included portion of the brain. Neck: Focal uptake within a 2 cm left parotid nodule with an SUV of 27.2compared to 33.6 previously. This likely represents a Warthin's tumor or pleomorphic adenoma. Brown fat activation in the neck. No suspicious hypermetabolic cervical lymphadenopathy. A 2 cm left supraclavicular lymph node has anSUV of 2.6 compared to 3 previously. Chest: No hypermetabolic lymphadenopathy in the axillae, mediastinum, or miranda. Minimal atelectasis or scarring within the lingula without significant FDG uptake is unchanged. Heart projects borderline enlarged. Tracecoronary artery calcification. No pericardial or pleural effusion. Aneurysmal dilatation of the ascending thoracic aorta measuring 4.2 cm is unchanged. Right chest port tip terminates at the superior cavoatrial junction. Focal uptake in the distal esophagus with an SUV of 6.2 compared to 7.3 previously. There is associated circumferential wall thickening. Noadjacent hypermetabolic lymphadenopathy. Abdomen and Pelvis: No focal hypermetabolic liver lesion. Prior cholecystectomy. Thespleen is normal. Normal pancreas without focal FDG activity. Presumed physiologic uptake within the adrenal glands. Bilateral renal cysts are grossly similar and require no specific follow-up. Hyperdense cyst in the upper pole of the right kidney measuring 1.3 cm likely represents a proteinaceous or hemorrhagic cyst. Calcification measuring 5 mm in the interpolar right kidney is unchanged. There is no hydronephrosis. The bladder is decompressed and incompletely evaluated. Presumed physiologic uptake within the anal sphincter. Photopenic low-attenuation lesion inthe right pelvic sidewall likely representing a postoperativeseroma/lymphocele. This measures 2.5 cm and is grossly unchanged from 2022. Small amount of free pelvic fluid is grossly similar. Atherosclerotic calcification ofthe abdominal aorta without aneurysm. Postoperative change in the anterior abdominal wall. Bones: No acute or aggressive appearing osseous lesions. Pedicle screw and mercy fixation of the lumbosacral spine. No associated abnormal FDG uptake. Relative photopenia in the sacrum and midthoracic spine likely related to history of radiation. IMPRESSION: 1. Slight decrease in the metabolic activity of the distal esophaguswith an SUV of 6.2 compared to 7.3 previously. This could represent residualtumor or post treatment change. 2. Slight decrease in the metabolic activity of the left supraclavicular lymph node with an SUV of 2.6 compared to 3 previously. This was presentin 2021 and favored to be reactive. 3. Grossly stable uptake within the left parotid nodule likelyrepresenting a Warthin's tumor or pleomorphic adenoma. 4. No new suspicious hypermetabolic abnormalities. THIS IS AN ELECTRONICALLY VERIFIED FINAL REPORT 07/13/2025 12:21 PM - Electronically signed by Serg Hussein M.D. LB: BEVERLEY Report ID: [id number] Reading Location: [place] [address] Francisco Jones DO IMG PET PROCEDURES Final Res ult * POCT glucose (07/13/2025 9:48 AM CDT) [facility] Signature Glucose, POC 101 70 - 199 mg/dL Comment:Testing performed by : [facility], [address] [place] [address]., [id number] Blood 07/13/2025 9:48 AM CDT 07/13/2025 9:48 AM CDT Bianca Hunter MD LAB POCT ORDERABLES - DEVICE Final Result [facility] [address] [facility] Department [place] [address] * (ABNORMAL) Differential, auto (07/13/2025 9:30 AM CDT) [facility] Neutrophil abs 3.00 1.50 - 6.50 K/cumm Comment:Testing performed by : [address] [address] Imm gran abs 0.02 0.00 - 0.10 K/cumm ISAAC Comment:Testing performed by : [address] [address] Lymphocyte abs 0.59(L) 0.80 - 3.30 K/cumm ISAAC Comment:Testing performed by : [address] [address] Monocyte abs 0.49 0.20 - 0.80 K/cumm ISAAC Comment:Testing performed by : [address] [address] Eosinophil abs 0.23 0.00 - 0.50 K/cumm ISAAC Comment:Testing performed by : [address] [address] Basophil abs 0.04 0.00 - 0.10 K/cumm [facility] Comment:Testing performed by : [address] [address] Neutrophil pct 68.6 % [facility] Comment: Interpretive Data Percent cell count reference ranges are not reported, since discordance with absolute values may lead to misinterpretation of CBC data. Current Interpretive Data was last revised on 2018. Testing performed by: [address] [address] Imm gran pct 0.5 % [facility] Comment: Interpretive Data Percent cell count reference ranges are not reported, since discordance with absolute values may lead to misinterpretation of CBC data. Current Interpretive Data was last revised on 2018. Testing performed by: [address] [address] Lymphocyte pct 13.5 % [facility] Comment: Interpretive Data Percent cell count reference ranges are not reported, since discordance with absolute values may lead to misinterpretation of CBC data. Current Interpretive Data was last revised on 2018. Testing performed by: [address] [address] Monocyte pct 11.2 % [facility] Comment: Interpretive Data Percent cell count reference ranges are not reported, since discordance with absolute values may lead to misinterpretation of CBC data. Current Interpretive Data was last revised on 2018. Testing performed by: [address] [address] Eosinophil pct 5.3 % [facility] Comment: Interpretive Data Percent cell count reference ranges are not reported, since discordance with absolute values may lead to misinterpretation of CBC data. Current Interpretive Data was last revised on 2018. Testing performed by: [address] [address] Basophil pct 0.9 % [facility] Comment: Interpretive Data Percent cell count reference ranges are not reported, since discordance with absolute values may lead to misinterpretation of CBC data. Current Interpretive Data was last revised on 2018. Testing performed by: [address] [address] Blood 07/13/2025 9:30 AM CDT 07/13/2025 9:34 AM CDT Nena Cano [employer] IN[employer] LAB BLOOD ORDERABLES Final Result [facility] [address] [facility] Department [place] [address] * (ABNORMAL) Iron profile w/ IBC (07/13/2025 9:30 AM CDT) Iron 37(L) 50 - 150 mcg/dL Comment:Testing performed by : [address] [address] TIBC 205(L) 250 - 400 mcg/dL ISAAC Comment:Testing performed by : [address] [address] Transferrin saturation 18(L) 20 - 50 % IS[facility] Comment:Testing performed by : [address] [address] Blood 07/13/2025 9:30 AM CDT 07/13/2025 11:36 AM CDT us Nena Cano [employer] IN[employer] LAB BLOOD ORDERABLES Final Result [facility] [address] [facility] Department [place] [address] * (ABNORMAL) CBC with auto differential (07/13/2025 9:30 AM CDT) Pathologist [facility] WBC 4.37 3.80 - 9.90 K/cumm Comment:Testing performed by : [address] [address] Hgb 9.6(L) 13.0 - 17.5 g/dL IS[facility] Comment:Testing performed by : [address] [address] Hct 30.5(L) 38.9 - 50.3 % IS[facility] Comment:Testing performed by : [address] [address] Plt 185 150 - 400 K/cumm IS[facility] Comment:Testing performed by : [address] [address] MPV 8.6(L) 9.1 - 12.3 fL [facility] Comment:Testing performed by : [address] [address] RBC 3.20(L) 4.30 - 5.80 M/cumm IS[facility] Comment:Testing performed by : [address] [address] MCV 95.3 81.3 - 96.4 fL [facility] Comment:Testing performed by : [address] [address] MCH 30.0 27.1 - 33.3 pg [facility]AC SERNA Comment:Testing performed by : [address] [address] MCHC 31.5(L) 32.3 - 35.7 g/dL [facility] Comment:Testing performed by : [address] [address] RDW CV 15.8(H) 11.1 - 14.9 % [facility] SERNA Comment:Testing performed by : [address] [address] RDW SD 55.8(H) 35.7 - 48.1 fL [facility] SERNA Comment:Testing performed by : [address] [address] NRBC abs 0.00 0.00 - 0.01 K/cumm IS[facility] Comment:Testing performed by : [address] [address] ANC Prelim 3.00 1.50 - 6.50 K/cumm [facility] Comment: Interpretive Data The rapid ANC is a preliminary automated count and may vary from the final ANC (Neut Abs) reported in the WBC differential that follows. Current interpretive data was last revised 2025. Testing performed by: [address] [address] Blood 07/13/2025 9:30 AM CDT 07/13/2025 9:34 AM CDT us Nena Cano NP LAB BLOOD ORDERABLES Final Result ISAAC [address] [facility] Department of Laboratories [place], [place] [id number] * (ABNORMAL) Reticulocyte Count (07/13/2025 9:30 AM CDT) Retics, absolute 51 20 - 87 K/cumm Comment:Testing performed by : [address] [address] Retics 1.6 0.4 - 2.9 % ISAAC SERNA Comment:Testing performed by : [address] [address] Reticulocyte Hgb 28.7(L) 30.5 - 38.0 pg ISAAC SERNA Comment:Testing performed by : [address] [address] Blood 07/13/2025 9:30 AM CDT 07/13/2025 9:34 AM CDT Nena Cano [employer] INST[employer] LAB BLOOD ORDERABLES Final Result Performing Organization Address City/[facility] Co de Phone Number ISAAC [address] [address] * Ferritin (07/13/2025 9:30 AM CDT) Ferritin 90 30 - 400 ng/mL Comment:Testing performed by : [facility], [address] [place] [address]., [address] Blood 07/13/2025 9:30 AM CDT 07/13/2025 11:36 AM CDT Nena Cano NP LAB BLOOD ORDERABLES Final Result Performing Organization Address [facility] de Phone Number ISAAC [address] [address] * EGD (06/28/2025 1:10 PM CDT) Anatomical Region Laterality Modality Other Narrative Procedure Note Jerry Peguero MD - 06/28/2025 1:10 PM CDT ENDOSCOPY LAB Patient Name: Marshall Olson Procedure Date: 06/28/2025 1:10 PM Admit Type: Outpatient Room: [facility] Date of : 1950 Instrument Name: [id number] [...] Repeat cryotherapy as previously scheduled. - Carafate QIAva. Attending Participation: I personally performed the entire procedure. Electronically signed by Jerry Peguero M.D. Jerry Peguero M.D. 06/28/2025 1:37:53 PM This document was signed electronically. Number of Addenda: 0 Note Initiated On: 06/28/2025 1:10 PM Scope In: Scope Out: Result [facility] Jerry Peguero MD ENDOSCOPY PROCEDURES Final Result * (ABNORMAL) Protime-INR (06/28/2025 12:16 PM CDT) PT 16.0(H) 10.2 - 13.5 sec INR 1.43(H) 0.90 - 1.20 [facility] Comment: Interpretive data Oral anticoagulant therapeutic ranges: [...] Final Result Performing Organization Address [facility] Co de Phone Number [facility] [address] Department of Laboratories [place], [place] [id number] * (ABNORMAL) Protime-INR (06/19/2025 9:16 AM CDT) PT 14.5(H) 10.2 - 13.5 sec INR 1.29(H) 0.90 - 1.20 [facility] Comment: Interpretive data Oral anticoagulant therapeutic ranges: Venous thromboembolism prophylaxis or treatment: 2.0-3.0 CARDIOLOGY Standard range: 2.0-3.0 High-intensity range: 2.5-3.5 Refer to indication-specific guidelines for appropriate target ranges for prosthetic heart valve replacement. Current interpretive data was last revised on 2019. Blood 06/19/2025 9:16 AM CDT 06/19/2025 9:21 AM CDT Result [facility] Jacobo Horne MD LAB BLOOD ORDERABLES Final Re sult Performing Organization Address City/[facility] Co de Phone Number CERNER [facility] Department [place] [address] * EGD (06/19/2025 8:58 AM CDT) Anatomical Region Laterality Modality Other Narrative Procedure Note Jerry Peguero MD - 06/19/2025 8:58 AM CDT [facility] ENDOSCOPY [facility] Patient Name: Marshall Olson Procedure Date: 06/19/2025 8:58 AM Date of : 1950 Admit Type: Outpatient Age: 75 Gender: Male Attending MD: Jerry Peguero M.D., Room: [facility] ENDOSCOPY ROOM 2 Note Status: Finalized [...] passed under direct vision. The GIF [id number] endoscope was introducedthrough the mouth, and advanced [...] and screen (06/19/2025 7:52 AM CDT) Pathologist [facility] Divina, indirect Negative ABO Rh A Positive [facility] Blood 06/19/2025 7:52 AM CDT 06/19/2025 8:44 AM CDT Narrative [facility] - 06/19/2025 10:03 AM CDT Has the patient had Daratumumab or Isatuximab in the past 6 months?->Unknown us Mihaela Rod NP LAB BLOOD BANK TEST DARIEL ELLINGTON Final Result [facility] Department [place] [address] * Differential, auto (06/19/2025 7:51 AM CDT) Pathologist [facility] Neutrophil abs 2.78 1.50 - 6.50 K/cumm Imm gran abs 0.08 0.00 - 0.10 K/cumm [facility] Lymphocyte abs 0.92 0.80 - 3.30 K/cumm [facility] Monocyte abs 0.74 0.20 - 0.80 K/cumm [facility] Eosinophil abs 0.23 0.00 - 0.50 K/cumm [facility] Basophil abs 0.04 0.00 - 0.10 K/cumm [facility] Neutrophil pct 58.1 % [facility] Comment: Interpretive Data Percent cell count reference ranges are not reported, since discordance with absolute values may lead to misinterpretation of CBC data. Current Interpretive Data was last revised on 2018. Imm gran pct 1.7 % [facility] Comment: Interpretive Data Percent cell count reference ranges are not reported, since discordance with absolute values may lead to misinterpretation of CBC data. Current Interpretive Data was last revised on 2018. Lymphocyte pct 19.2 % [facility] Comment: Interpretive Data Percent cell count reference ranges are not reported, since discordance with absolute values may lead to misinterpretation of CBC data. Current Interpretive Data was last revised on 2018. Monocyte pct 15.4 % [facility] Comment: Interpretive Data Percent cell count reference ranges are not reported, since discordance with absolute values may lead to misinterpretation of CBC data. Current Interpretive Data was last revised on 2018. Eosinophil pct 4.8 % [facility] Comment: Interpretive Data Percent cell count reference ranges are not reported, since discordance with absolute values may lead to misinterpretation of CBC data. Current Interpretive Data was last revised on 2018. Basophil pct 0.8 % [facility] Comment: Interpretive Data Percent cell count reference ranges are not reported, since discordance with absolute values may lead to misinterpretation of CBC data. Current Interpretive Data was last revised on 2018. Blood 06/19/2025 7:51 AM CDT 06/19/2025 8:28 AM CDT Mihaela Rod [employer] LAB BLOOD ORDERABLES Fin al Result [facility] Department [place] [address] * Iron profile w/ IBC (06/19/2025 7:51 AM CDT) Iron 115 50 - 150 mcg/dL TIBC 298 250 - 400 mcg/dL [facility] Transferrin saturation 39 20 - 50 % [facility] Blood 06/19/2025 7:51 AM CDT 06/19/2025 8:28 AM CDT Mihaela Rod [employer] LAB BLOOD ORDERABLES Fin al Result Performing Organization Address [facility] Co de Phone Number [facility] Department [place] [address] * (ABNORMAL) CBC with auto differential (06/19/2025 7:51 AM CDT) Pathologist [facility] WBC 4.79 3.80 - 9.90 K/cumm Hgb 9.0(L) 13.0 - 17.5 g/dL [facility] Hct 29.6(L) 38.9 - 50.3 % [facility] Plt 254 150 - 400 K/cumm [facility] MPV 8.8(L) 9.1 - 12.3 fL [facility] RBC 2.98(L) 4.30 - 5.80 M/cumm [facility] MCV 99.3(H) 81.3 - 96.4 fL [facility] MCH 30.2 27.1 - 33.3 pg [facility] MCHC 30.4(L) 32.3 - 35.7 g/dL [facility] RDW CV 16.8(H) 11.1 - 14.9 % [facility] RDW SD 57.8(H) 35.7 - 48.1 fL [facility] NRBC abs 0.00 0.00 - 0.01 K/cumm [facility] Blood 06/19/2025 7:51 AM CDT 06/19/2025 8:28 AM CDT Mihaela Rod NP LAB BLOOD ORDERABLES Fin al Result [facility] Department [place] [address] * (ABNORMAL) Reticulocyte Count (06/19/2025 7:51 AM CDT) Pathologist [facility] Retics, absolute 168(H) 20 - 87 K/cumm Retics 5.6(H) 0.4 - 2.9 % [facility] Reticulocyte Hgb 35.0 30.5 - 38.0 pg [facility] Blood 06/19/2025 7:51 AM CDT 06/19/2025 8:28 AM CDT Mihaela Rod [employer] LAB BLOOD ORDERABLES Fin al Result Performing Organization Address City/State/[facility] Co de Phone Number [facility] [place] [address] * (ABNORMAL) Ferritin (06/19/2025 7:51 AM CDT) Ferritin 423(H) 30 - 400 ng/mL Blood 06/19/2025 7:51 AM CDT 06/19/2025 8:28 AM CDT Mihaela Rod [employer] IN[employer] LAB BLOOD ORDERABLES Fin al Result Performing Organization Address [facility] de Phone Number [facility] Department [place] [address] * (ABNORMAL) eGFR (06/14/2025 10:05 AM CDT) [...] was last reviewed 2021. Testing performed by: [address] [address] Blood 06/14/2025 10:0 5 AM CDT 06/14/2025 10:06 AM CDT Nena Oleary Jerome [employer] IN[employer] LAB BLOOD ORDERABLES Final Result [facility] [address] [facility] Department [place] [address] * (ABNORMAL) Differential, auto (06/14/2025 10:05 AM CDT) Neutrophil abs 2.53 1.50 - 6.50 K/cumm Comment:Testing performed by : [address] [address] Imm gran abs 0.02 0.00 - 0.10 K/cumm ISAAC Comment:Testing performed by : [address] [address] Lymphocyte abs 0.60(L) 0.80 - 3.30 K/cumm ISAAC Comment:Testing performed by : [address] [address] Monocyte abs 0.61 0.20 - 0.80 K/cumm ISAAC Comment:Testing performed by : [address] [address] Eosinophil abs 0.21 0.00 - 0.50 K/cumm ISAAC Comment:Testing performed by : [address] [address] Basophil abs 0.03 0.00 - 0.10 K/cumm ISAAC Comment:Testing performed by : [address] [address] Neutrophil pct 63.1 % IS[facility] Comment: Interpretive Data Percent cell count reference ranges are not reported, since discordance with absolute values may lead to misinterpretation of CBC data. Current Interpretive Data was last revised on 2018. Testing performed by: [address] [address] Imm gran pct 0.5 % [facility] Comment: Interpretive Data Percent cell count reference ranges are not reported, since discordance with absolute values may lead to misinterpretation of CBC data. Current Interpretive Data was last revised on 2018. Testing performed by: [address] [address] Lymphocyte pct 15.0 % [facility] Comment: Interpretive Data Percent cell count reference ranges are not reported, since discordance with absolute values may lead to misinterpretation of CBC data. Current Interpretive Data was last revised on 2018. Testing performed by: [address] [address] Monocyte pct 15.3 % [facility] Comment: Interpretive Data Percent cell count reference ranges are not reported, since discordance with absolute values may lead to misinterpretation of CBC data. Current Interpretive Data was last revised on 2018. Testing performed by: [address] [address] Eosinophil pct 5.3 % [facility] Comment: Interpretive Data Percent cell count reference ranges are not reported, since discordance with absolute values may lead to misinterpretation of CBC data. Current Interpretive Data was last revised on 2018. Testing performed by: [address] [address] Basophil pct 0.8 % [facility] Comment: Interpretive Data Percent cell count reference ranges are not reported, since discordance with absolute values may lead to misinterpretation of CBC data. Current Interpretive Data was last revised on 2018. Testing performed by: [address] [address] Blood 06/14/2025 10:0 5 AM CDT 06/14/2025 10:06 AM CDT Nena Cano NP LAB BLOOD ORDERABLES Final Result IS[facility]AC SERNA [address] [facility] Department [place] [address] * Iron profile w/ IBC (06/14/2025 10:05 AM CDT) [facility] Iron 105 50 - 150 mcg/dL Comment:Testing performed by : [address] [address] TIBC 258 250 - 400 mcg/dL IS[facility]AC SERNA Comment:Testing performed by : [address] [address] Transferrin saturation 41 20 - 50 % [facility]AC SERNA Comment:Testing performed by : [address] [address] Blood 06/14/2025 10:0 5 AM CDT 06/14/2025 11:48 AM CDT us Nena Cano [employer] LAB BLOOD ORDERABLES Final Result ISAAC SERNA [address] [facility] Department [place] [address] * (ABNORMAL) CBC with auto differential (06/14/2025 10:05 AM CDT) [facility] WBC 4.00 3.80 - 9.90 K/cumm Comment:Testing performed by : [address] [address] Hgb 8.4(L) 13.0 - 17.5 g/dL IS[facility] SERNA Comment:Testing performed by : [address] [address] Hct 27.3(L) 38.9 - 50.3 % IS[facility]AC SERNA Comment:Testing performed by : [address] [address] Plt 228 150 - 400 K/cumm ISAAC SERNA Comment:Testing performed by : [address] [address] MPV 8.4(L) 9.1 - 12.3 fL [facility] SERNA Comment:Testing performed by : [address] [address] RBC 2.85(L) 4.30 - 5.80 M/cumm ISAAC SERNA Comment:Testing performed by : [address] [address] MCV 95.8 81.3 - 96.4 fL [facility] SERNA Comment:Testing performed by : [address] [address] MCH 29.5 27.1 - 33.3 pg ISAAC SERNA Comment:Testing performed by : [address] [address] MCHC 30.8(L) 32.3 - 35.7 g/dL [facility]AC SERNA Comment:Testing performed by : [address] [address] RDW CV 14.7 11.1 - 14.9 % ISAAC Comment:Testing performed by : [address] [address] RDW SD 51.8(H) 35.7 - 48.1 fL IS[facility]AC Comment:Testing performed by : [address] [address] NRBC abs 0.00 0.00 - 0.01 K/cumm ISAAC Comment:Testing performed by : [address] [address] ANC Prelim 2.53 1.50 - 6.50 K/cumm ISAAC Comment: Interpretive Data The rapid ANC is a preliminary automated count and may vary from the final ANC (Neut Abs) reported in the WBC differential that follows. Current interpretive data was last revised 2025. Testing performed by: [address] [address] Blood 06/14/2025 10:0 5 AM CDT 06/14/2025 10:06 AM CDT us Nena Cano [employer] LAB BLOOD ORDERABLES Final Result [facility] [address] [facility] Department [place] [address] * (ABNORMAL) Reticulocyte Count (06/14/2025 10:05 AM CDT) Retics, absolute 95(H) 20 - 87 K/cumm Comment:Testing performed by : [address] [address] Retics 3.3(H) 0.4 - 2.9 % ISAAC SERNA Comment:Testing performed by : [address] [address] Reticulocyte Hgb 25.3(L) 30.5 - 38.0 pg ISAAC SERNA Comment:Testing performed by : [address] [address] Blood 06/14/2025 10:0 5 AM CDT 06/14/2025 10:06 AM CDT Nena Cano [employer] IN[employer]ER LAB BLOOD ORDERABLES Final Result DAYANA[address] [place] [address] * Ferritin (06/14/2025 10:05 AM CDT) Pathologist [facility] Ferritin 44 30 - 400 ng/mL Comment:Testing performed by : [address] [address] Blood 06/14/2025 10:0 5 AM CDT 06/14/2025 11:48 AM CDT Nena Cano [employer] IN[employer] LAB BLOOD ORDERABLES Final Result Performing Organization Address City/[facility]/ZIP Co de Phone Number [address] [address] * (ABNORMAL) Comprehensive metabolic panel (06/14/2025 10:05 AM CDT) Sodium 139 135 - 145 mmol/L Comment:Testing performed by : [address] [address] Potassium, pl 4.3 3.3 - 4.9 mmol/L IS[facility]AC SERNA Comment:Testing performed by : [address] [address] Chloride 107 97 - 110 mmol/L ISAAC SERNA Comment:Testing performed by : [address] [place]., [address] CO2 22 22 - 32 mmol/L ISAAC Comment:Testing performed by : [address] [address] Anion gap 10 2 - 15 mmol/L ISAAC Comment:Testing performed by : [address] [address] BUN 25 6 - 25 mg/dL ISAAC Comment:Testing performed by : [address] [address] Creatinine 1.60(H) 0.80 - 1.30 mg/dL ISAAC Comment:Testing performed by : [address] [address] Glucose 88 70 - 199 mg/dL ISAAC [...] was last revised 2022. Testing performed by: [address] [address] Calcium 8.9 8.5 - 10.3 mg/dL ISAAC Comment:Testing performed by : [address] [address] Bilirubin, total 0.2 0.1 - 1.2 mg/dL [facility] Comment:Testing performed by : [address] [address] Protein, pl 6.6 6.5 - 8.5 g/dL ISAAC Comment:Testing performed by : [address] [address] Albumin 3.8 3.5 - 5.0 g/dL ISAAC Comment:Testing performed by : [address] [address] Alk phos 65 40 - 130 Units/L ISAAC Comment:Testing performed by : [address] [address] ALT 10 7 - 55 Units/L ISAAC Comment:Testing performed by : [address] [address] AST 16 10 - 50 Units/L ISAAC Comment:Testing performed by : [address] [address] Blood 06/14/2025 10:0 5 AM CDT 06/14/2025 10:06 AM CDT us Nena Cano [employer] LAB BLOOD ORDERABLES Final Result ISAAC [facility] Department [place] [address] * (ABNORMAL) Differential, auto (06/07/2025 9:24 AM CDT) Neutrophil abs 2.55 1.50 - 6.50 K/cumm Comment:Testing performed by : [address] [address] Imm gran abs 0.03 0.00 - 0.10 K/cumm ISAAC Comment:Testing performed by : [address] [address] Lymphocyte abs 0.72(L) 0.80 - 3.30 K/cumm ISAAC Comment:Testing performed by : [address] [address] Monocyte abs 0.56 0.20 - 0.80 K/cumm ISAAC Comment:Testing performed by : [address] [address] Eosinophil abs 0.23 0.00 - 0.50 K/cumm ISAAC Comment:Testing performed by : [address] [address] Basophil abs 0.04 0.00 - 0.10 K/cumm ISAAC Comment:Testing performed by : [address], [address] Neutrophil pct 61.7 % [facility] Comment: Interpretive Data Percent cell count reference ranges are not reported, since discordance with absolute values may lead to misinterpretation of CBC data. Current Interpretive Data was last revised on 2018. Testing performed by: [address] [address] Imm gran pct 0.7 % [facility] Comment: Interpretive Data Percent cell count reference ranges are not reported, since discordance with absolute values may lead to misinterpretation of CBC data. Current Interpretive Data was last revised on 2018. Testing performed by: [address] [address] Lymphocyte pct 17.4 % [facility] Comment: Interpretive Data Percent cell count reference ranges are not reported, since discordance with absolute values may lead to misinterpretation of CBC data. Current Interpretive Data was last revised on 2018. Testing performed by: [address] [address] Monocyte pct 13.6 % [facility] Comment: Interpretive Data Percent cell count reference ranges are not reported, since discordance with absolute values may lead to misinterpretation of CBC data. Current Interpretive Data was last revised on 2018. Testing performed by: [address] [address] Eosinophil pct 5.6 % [facility] Comment: Interpretive Data Percent cell count reference ranges are not reported, since discordance with absolute values may lead to misinterpretation of CBC data. Current Interpretive Data was last revised on 2018. Testing performed by: [address] [address] Basophil pct 1.0 % CERNER Comment: Interpretive Data Percent cell count reference ranges are not reported, since discordance with absolute values may lead to misinterpretation of CBC data. Current Interpretive Data was last revised on 2018. Testing performed by: [address] [address] Blood 06/07/2025 9:24 AM CDT 06/07/2025 9:32 AM CDT Nena Cano [employer] IN[employer] LAB BLOOD ORDERABLES Final Result ISAAC [facility] of Laboratories [place], [place] [id number] * (ABNORMAL) Iron profile w/ IBC (06/07/2025 9:24 AM CDT) Pathologist [facility] Iron 36(L) 50 - 150 mcg/dL Comment:Testing performed by : [address] [address] TIBC 260 250 - 400 mcg/dL ISAAC Comment:Testing performed by : [address] [address] Transferrin saturation 14(L) 20 - 50 % ISAAC Comment:Testing performed by : [address] [address] Blood 06/07/2025 9:24 AM CDT 06/07/2025 11:43 AM CDT Nena Cano [employer] IN[employer] LAB BLOOD ORDERABLES Final Result Performing Organization Address City/[facility]/ZIP Co de Phone Number ISAAC [address] [place] [address] * (ABNORMAL) CBC with auto differential (06/07/2025 9:24 AM CDT) Pathologist [facility] WBC 4.13 3.80 - 9.90 K/cumm Comment:Testing performed by : [address] [address] Hgb 8.9(L) 13.0 - 17.5 g/dL ISAAC Comment:Testing performed by : [address] [address] Hct 28.1(L) 38.9 - 50.3 % ISAAC Comment:Testing performed by : [address] [address] Plt 232 150 - 400 K/cumm ISAAC SERNA Comment:Testing performed by : [address] [address] MPV 8.3(L) 9.1 - 12.3 fL ISAAC Comment:Testing performed by : [address] [address] RBC 2.92(L) 4.30 - 5.80 M/cumm ISAAC Comment:Testing performed by : [address] [address] MCV 96.2 81.3 - 96.4 fL ISAAC Comment:Testing performed by : [address] [address] MCH 30.5 27.1 - 33.3 pg ISAAC Comment:Testing performed by : [address] [address] MCHC 31.7(L) 32.3 - 35.7 g/dL ISAAC Comment:Testing performed by : [address] [address] RDW CV 15.0(H) 11.1 - 14.9 % ISAAC Comment:Testing performed by : [address] [address] RDW SD 53.0(H) 35.7 - 48.1 fL ISAAC Comment:Testing performed by : [address] [address] NRBC abs 0.00 0.00 - 0.01 K/cumm ISAAC Comment:Testing performed by : [address] [address] ANC Prelim 2.55 1.50 - 6.50 K/cumm ISAAC Comment: Interpretive Data The rapid ANC is a preliminary automated count and may vary from the final ANC (Neut Abs) reported in the WBC differential that follows. Current interpretive data was last revised 2025. Testing performed by: [address] [address] Blood 06/07/2025 9:24 AM CDT 06/07/2025 9:32 AM CDT Nena Cano HOME [employer] INST[employer]ER LAB BLOOD ORDERABLES Final Result Performing Organization Address [facility] Co de Phone Number [address] [place] [address] * (ABNORMAL) Reticulocyte Count (06/07/2025 9:24 AM CDT) Retics, absolute 89(H) 20 - 87 K/cumm Comment:Testing performed by : [address] [address] Retics 3.1(H) 0.4 - 2.9 % ISAAC Comment:Testing performed by : [address] [address] Reticulocyte Hgb 26.6(L) 30.5 - 38.0 pg ISAAC Comment:Testing performed by : [address] [address] Blood 06/07/2025 9:24 AM CDT 06/07/2025 9:32 AM CDT Nena Cano HOME [employer] INST[employer]ER LAB BLOOD ORDERABLES Final Result Performing Organization Address [facility] Co de Phone Number [address] [address] * Ferritin (06/07/2025 9:24 AM CDT) [facility] Ferritin 41 30 - 400 ng/mL Comment:Testing performed by : [address] [address] Blood 06/07/2025 9:24 AM CDT 06/07/2025 11:43 AM CDT Nena Cano HOME [employer]EMENT INST[employer]ER LAB BLOOD ORDERABLES Final Result Performing Organization Address City/[facility] Co de Phone Number [address] [place] [address] * CT Chest Abdomen Pelvis W Contrast (12/13/2024 7:09 AM SCREW DOWN) Anatomical Region Laterality Modality Body N/A Computed Tomogra phy 12/13/2024 7:26 AM SCREW DOWN Impressions 12/13/2024 7:26 AM SCREW DOWN 1. Nondistended esophagus. No discrete esophageal lesion identified to correspond to known malignancy. 2. No evidence of metastatic disease in the chest, abdomen, and pelvis. Electronically signed by: Courtney Johnson M.D. Narrative 12/13/2024 7:26 AM SCREW DOWN EXAMINATION: Computed tomography of the chest, abdomen [...] Res ult * Colonoscopy (11/17/2024 9:34 AM SCREW DOWN) Anatomical Region Laterality Modality Other Narrative Procedure Note Lucio Rosas MD - 11/17/2024 9:34 AM CST [facility] GI ENDOSCOPY Patient Name: Marshall Olson Procedure Date: 11/17/2024 9:34 AM Date of : 1950 Admit Type: Outpatient Age: 74 Gender: Male Attending MD: Lucio Rosas M.D. Room: [facility] ENDOSCOPY ROOM 03 Note Status: Finalized [...] The scope was passed under direct vision.The PCF-[id number] colonoscope was introduced through theanus and advanced to the cecum, identified byappendiceal orifice and ileocecal valve. The scope was passed under direct vision. The [id number]-[id number] colonoscope was introduced through the and advanced [...] On: 11/17/2024 9:34 AM Recognized by the [employer] for promoting quality in endoscopy Lucio Rosas MD ENDOSCOPY PROCEDURES Final Resul t from Last 3 Months or Most Recently Relevant to Health Maintenance Insurance [facility] MEDICARE ADVANTAGE [facility] Address: [facility] [address] [place] [address] MEDICARE [facility] MEDICARE ADVANTAGE [facility] MEDICARE Address: [address] [address] [place] [address] Advance Directives For more information, please contact: [phone] * Full Code (Latest Code Status on File) Date Activated Date Inactivated Comments 08/25/2025 11:04 AM 08/25/2025 12:19 PM * Full Code Date Activated Date Inactivated Comments 07/21/2025 9:40 AM 07/21/2025 5:15 PM * Full Code Date Activated Date Inactivated Comments 06/28/2025 12:51 PM 06/28/2025 6:18 PM * Full Code Date Activated Date Inactivated Comments 06/19/2025 8:50 AM 06/19/2025 3:56 PM * Full Code Date Activated Date Inactivated Comments 01/11/2025 10:34 AM 01/12/2025 5:08 AM Care Teams Office Bookkeeper Relationship Specialty Start Date End Date Jas Alcala MD [address] [place] [id number] PCP - General Internal Medicine 01/04/25 Lucio Rosas MD [address] [address] Consulting Physician Gastroenterology 11/28/24 Hero Pinedo MD [address] [address] Radiation Oncologist Radiation Oncology 12/28/24 Lon Tomas MD [address] [place] [address] Consulting Physician Urology 01/04/25 Jaycee Teresa MD [address] [place] [address] Consulting Physician Cardiology 01/09/25 Francisco Jones DO [address] [facility] [address] [address] Medical Oncologist/Hematologis t Hematology and Oncology 06/03/25
--- OUTSIDE RECORDS SUMMARY | 2025-08-28 09:26 | XMS_ITS | Clinical Summary ---
Author Organization [facility] [employer] (Closed) Address [address] [place] [address] Care Team Providers Care Cruise Counselor Name Role Phone Jas Alcala MD Unavailable [phone] Jas Alcala MD Primary Care Provider [phone] Source Comments [facility],non-owned Affiliates and Associated Physician Practices is amultiple site organization consisting of ambulatory clinics and hospital sitesin [place], [place], [place] and [place]. This disclosure is being madepursuant to the Care Everywhere program and may not contain all information available regarding this patient. 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 Gender Identity Not on file Sexual Orientation Not on file Last Filed Vital Signs Vital Sign Reading Time Taken Comments Blood Pressure 150/99 10/22/2010 2:45 PM SPEECH CORRECTION ASSISTANT Pulse 68 10/22/2010 2:45 PM SPEECH CORRECTION ASSISTANT Temperature 36.6 C (97.8 F) 10/22/2010 2:45 PM SPEECH CORRECTION ASSISTANT Respiratory Rate 16 10/22/2010 2:45 PM SPEECH CORRECTION ASSISTANT Oxygen Saturation 97% 10/22/2010 2:45 PM SPEECH CORRECTION ASSISTANT Inhaled Oxygen Concentration - - Weight 129.7 kg (286 lb) 10/22/2010 7:02 AM SPEECH CORRECTION ASSISTANT Height 182.9 cm (6') 10/22/2010 7:02 AM SPEECH CORRECTION ASSISTANT Body Mass Index 38.79 10/22/2010 7:02 AM SPEECH CORRECTION ASSISTANT Plan of Treatment Health Maintenance Due [...] 2:20 PM 10/23/2010 7:05 AM Care Teams Cruise Counselor Relationship Specialty Start Date End Date Jas Alcala MD [address] [place] [address] PCP - General 10/22/10 Jas Alcala MD Internal Medicine 09/23/10
[2025-08-28 09:39] LABS: Hematocrit 33.2 % (42.0-52.0); Hemoglobin 9.9 g/dL (14.0-18.0); Immature Granulocyte Percent A 0.7 % (0-0.5); Lymphocytes Absolute Auto 0.62 K/mm3 (0.9-3.2); Mean Corpuscular HGB Conc 29.8 g/dl (32-36); Mean Corpuscular Hemoglobin 29.3 pg (26-34); Mean Corpuscular Volume 98.2 fl (80-100); Nucleated Red Blood Cells Absolute Auto 0.000 K/mm3 (0.0-0.012); Nucleated Red Blood Cells Perc 0.0 % (0.0-0.2); Platelet Count Result 236 k/mm3 (150-375); Red Blood Count 3.38 M/mm3 (4.6-6.20); White Blood Count 4.6 K/mm3 (4.5-10.0)
[2025-08-28 10:06] LABS: Alanine Aminotransferase 15 U/L (6-50); Albumin Level 3.9 g/dL (3.5-5.1); Alkaline Phosphatase 74 U/L (38-126); Anion Gap 6 mmol/L (4-12); Aspartate Amino Transferase 21 U/L (17-59); Bilirubin,Total 0.3 mg/dL (0.2-1.3); Blood Urea Nitrogen 18 mg/dL (9-20); Calcium 9.1 mg/dL (8.4-10.2); Carbon Dioxide 25 mmol/L (22-30); Chloride 109 mmol/L (98-107); Estimated Glomerular Filt Rate 46; Glucose 93 mg/dL (65-110); Potassium 4.1 mmol/L (3.4-5.0); Sodium 140 mmol/L (137-145); Total Protein 6.9 g/dL (6.3-8.2)
[2025-08-28 10:10] LABS: INR 1.3; Prothrombin Time 16.1 Seconds (11.1-14.7)
[2025-08-28 10:16] LABS: Anisocytosis 1+; Hypochromasia 1+; Ovalocytes Occasional; Polychromasia Occasional; Schistocytes None Seen
== END 2025-08-28 08:46 | disposition home or self-care (01) ==
PROVIDERS: PCP Internal Medicine; Visit Provider Internal Medicine
DX: Z79.01 Long term (current) use of anticoagulants (principal)
CPT/HCPCS: 36415; 80053; 85025; 85610

== ENCOUNTER 2025-08-31 09:34 | Outpatient (CLI) | payer MEDICARE, SELFPAY ==
[2025-08-31 10:06] LABS: Hematocrit 31.8 % (42.0-52.0); Hemoglobin 9.8 g/dL (14.0-18.0); Immature Granulocyte Percent A 0.8 % (0-0.5); Lymphocytes Absolute Auto 0.76 K/mm3 (0.9-3.2); Mean Corpuscular HGB Conc 30.8 g/dl (32-36); Mean Corpuscular Hemoglobin 29.5 pg (26-34); Mean Corpuscular Volume 95.8 fl (80-100); Nucleated Red Blood Cells Absolute Auto 0.000 K/mm3 (0.0-0.012); Nucleated Red Blood Cells Perc 0.0 % (0.0-0.2); Platelet Count Result 223 k/mm3 (150-375); Red Blood Count 3.32 M/mm3 (4.6-6.20); White Blood Count 4.9 K/mm3 (4.5-10.0)
--- OUTSIDE RECORDS SUMMARY | 2025-08-31 10:21 | XMS_ITS | Clinical Summary ---
Author Organization [facility] [employer] Address [address] [place] [address] Care Team Providers Care Public Works Supervisor Name Role Phone Jas Alcala MD Unavailable [phone] Jas Alcala MD Primary Care Provider [phone] Source Comments [facility],non-owned Affiliates and Associated Physician Practices is amultiple site organization consisting of ambulatory clinics and hospital sitesin [place], [place], [place] and [place]. This disclosure is being madepursuant to the Care Everywhere program and may not contain all information available regarding this patient. 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 Gender Identity Not on file Sexual Orientation Not on file Last Filed Vital Signs Vital Sign Reading Time Taken Comments Blood Pressure 150/99 10/22/2010 2:45 PM CONDENSER OPERATOR Pulse 68 10/22/2010 2:45 PM CONDENSER OPERATOR Temperature 36.6 C (97.8 F) 10/22/2010 2:45 PM CONDENSER OPERATOR Respiratory Rate 16 10/22/2010 2:45 PM CONDENSER OPERATOR Oxygen Saturation 97% 10/22/2010 2:45 PM CONDENSER OPERATOR Inhaled Oxygen Concentration - - Weight 129.7 kg (286 lb) 10/22/2010 7:02 AM CONDENSER OPERATOR Height 182.9 cm (6') 10/22/2010 7:02 AM CONDENSER OPERATOR Body Mass Index 38.79 10/22/2010 7:02 AM CONDENSER OPERATOR Plan of Treatment Health Maintenance Due [...] 2:20 PM 10/23/2010 7:05 AM Care Teams Public Works Supervisor Relationship Specialty Start Date End Date Jas Alcala MD [address] [place] [address] PCP - General 10/22/10 Jas Alcala MD Internal Medicine 09/23/10
--- OUTSIDE RECORDS SUMMARY | 2025-08-31 10:21 | XMS_ITS | Encounter Summary ---
Author Organization [facility] Address [address] [place] [address] Phone Care Team Providers Care Special Education Administrator Name Role Phone Lucio Rosas MD Unavailable Hero Pinedo MD Unavailable [phone] Jas Alcala MD Primary Care Provider [phone] Lon Tomas MD Unavailable [phone] Jaycee Teresa MD Unavailable [phone] Francisco Jones DO Unavailable [phone] Jaycee Teresa MD Unavailable [phone] Reason for Visit * Reason Onset Date Comments GI call 08/30/2025 Encounter Details Date Type Department Care Team (Late st Contact Info) Description 08/30/2025 Telephone [facility] Medicine Gastroenterology [address] [place] [address] Medical Office [address], [address] [place] [address] Leslie Thomas RN GI call Social History Tobacco Use Types Packs/Day Years Used Date Smoking Tobacco: Former Cigarettes 2019 Smokeless Tobacco: Never Alcohol Use Standard Drinks/Week Comments Not Currently [...] on file 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 He saw Dr. Teresa at [place] [facility] yesterday. New cardiac clearance sent to that office now * Telephone Encounter - Leslie Thomas RN - 08/30/2025 9:37 AM CDT Attempted to reach patient to find out who his roll edge machine operator is to get a clearance. I will send a clearance request to PCP who manages his AC and go from there. Left a voicemail for callback ----- Message from Jerry Peguero MD sent at 08/25/2025 11:44 AM CDT ----- Procedure cancelled for bradycardia. He needs cards clearance before he can come back for another egd. documented in this encounter Plan of Treatment Not on file documented as of this encounter Visit Diagnoses Not on filedocumented in this encounter Care Teams Special Education Administrator Relationship Specialty [place] [address] [place] [address] PCP - General Internal Medicine 01/04/25 Lucio Rosas MD [address] [address] Consulting Physician Gastroenterology 11/28/24 Hero Pinedo MD [address] [place] [address] Radiation Oncologist Radiation Oncology 12/28/24 Lon Tomas MD [address] [place] [address] Consulting Physician Urology 01/04/25 Jaycee Teresa MD [address] [place] [address] Consulting Physician Cardiology 01/09/25 Francisco Jones DO [address] [address] Medical Oncologist/Hematologis t Hematology and Oncology 06/03/25 [place] [address] [address] Consulting Physician Cardiology 08/30/25 documented as of this encounter
--- OUTSIDE RECORDS SUMMARY | 2025-08-31 10:21 | XMS_ITS | Data Portability ---
Author Organization [facility] Address [address] [facility][note 3][place] [address] Care Team Providers Care Action Installer Name Role Phone CLEVE MARIEE Urologist KOKI HAMILTON Implementation Coordinator [phone] BUBAB ALCALA Primary Care Provider [phone] Assessment Encounter Date Assessment Date Assessment LastModified by Organization Details LastModified Time 07/12/2024 07/12/2024 flu shot continu e current therapy all questions have been answered follow up in 4 months [email or web address] Not available 07/30/2024 21:44:40 12/08/2024 12/08/2024 GI [...] has been cleared to have the endoscopies Not available 12/08/2024 21:25:29 03/16/2025 03/16/2025 We will continue current therapy start 2.5 mg Coumadin daily every other day start March 17 PT INR this coming Thursday diagnosis and assessment and plan have been discussed we will see me back in 6 weeks other medicines continue [email or web address] Not available 03/16/2025 14:49:21 04/27/2025 04/27/2025 Health risk assessments reviewed diagnosis and assessment and plan reviewed we will continue current therapy all questions have been answered healthy lifestyle care instructions maintained on medicines for V-tach inflammatory bowel disease appears to be stable all questions have been answered we will move forward with continuing current therapy follow up with me in 3 months [email or web address] Not available 04/29/2025 16:19:08 07/24/2025 07/24/2025 We [...] disease dyslipidemia anticoagulation all discussed in detail [email or web address] Not available 07/24/2025 22:10:11 Plan of Treatment Reminders Order Date Submit Date Provider Last Modified By Organization Details Last Modified Time Details Appointments ANY 15 2024 02:15P Venkat Alcala MD Not available Not available Not available Lab PT/INR 2024 025 [facility] Out[facility] Registration [facility]/Ekg, [address], [place], [address], 07/28/2025 14:54:21 CMP, serum or plasma 2024 025 [facility] Outpatient Registration Lab/Ekg, [address], [place], [address], 07/28/2025 09:55:28 CBC w/ auto diff 2024 025 [facility] Outpatient Registration Lab/Ekg, [address], [place], [address], 07/25/2025 12:49:13 Referral None recorded . Procedures None recorded . Surgeries None recorded . Imaging None recorded . Medication Orders None recorded . Patient TargetsNo targets recorded. Patient Instructions Encounter Date Encounter Id Patient Instructions Last Modified By Organization Details Last Modified Time 03/16/2025 [id number] A healthy lifestyle: care instructions [email or web address] Not available 03/16/2025 14:49:56 04/27/2025 [id number] advance care planning: care instructions [email or web address] Not available 04/29/2025 16:19:45 preventing falls : care instructions Not available 04/29/2025 16:19:45 Quitting Tobacco : Care Instructions [email or web address] Not available 04/29/2025 16:19:45 Medicare Wellnes s Preventive Checklist Not available 04/29/2025 16:19:45 eating healthy foods: care instructions [email or web address] Not available 04/29/2025 16:19:45 AD8 Dementia Screening Interview [email or web address] Not available 04/29/2025 16:19:45 A healthy lifestyle: care instructions [email or web address] Not available 04/27/2025 16:06:32 07/24/2025 [id number] A healthy lifestyle: care instructions [email or web address] Not available 07/24/2025 15:36:50 Reason for Referral None Reported. Results Created Date Observation Date Name Description Value Unit Range Abnormal Flag Note LastModifiedBy Organization Detail LastModifiedTime 12/19/1912/20/2024 BASIC METAB OLIC PANEL (7) glucose 122 mg/dL 70-99 above high normal Not Available [facility] ([facility]) [address] [facility], [place], [address], 12/20/2024 09:08:30 12/19/1912/20/2024 BASIC METAB OLIC PANEL (7) BUN 13 mg/dL 8-27 Not Available [facility] ([facility]) [address] [facility], [place], [address], 12/20/2024 09:08:30 12/19/1912/20/2024 BASIC METAB OLIC PANEL (7) creatinine 1.81 mg/dL 0.76-1 .27 above high normal Not Available [facility] ([facility]) [address] [facility] [place], [address], 12/20/2024 09:08:30 12/19/19 25 12/20/2024 BASIC METAB OLIC PANEL (7) eGFR 39 mL/mi n/1.7 3 >59 below low normal Not Available [facility] ([facility]) [address] [place], [address], 12/20/2024 09:08:30 12/19/19 25 12/20/2024 BASIC METAB OLIC PANEL (7) BUN/creatini ne ratio 7 10-24 below low normal Not Available [facility] ([facility]) [address] [place], [address], 12/20/2024 09:08:30 12/19/19 25 12/20/2024 BASIC METAB OLIC PANEL (7) sodium 139 mmol/ L 134-14 4 Not Available [facility] ([facility]) [address] [place], [address], 12/20/2024 09:08:30 12/19/19 25 12/20/2024 BASIC METAB OLIC PANEL (7) potassium 4.5 mmol/ L 3.5-5. 2 Not Available [facility] ([facility]) [address] [place], [address], 12/20/2024 09:08:30 12/19/19 25 12/20/2024 BASIC METAB OLIC PANEL (7) chloride 108 mmol/ L 96-106 above high normal Not Available [facility] ([facility]) [address] [place], [address], 12/20/2024 09:08:30 12/19/19 25 12/20/2024 BASIC METAB OLIC PANEL (7) carbon dioxide, total 19 mmol/ L 20-29 below low normal Not Available [facility] ([facility]) [address] [facility], [place], [address], 12/20/2024 09:08:30 12/19/1912/20/2024 PROTH ROMBI N TIME [...] 2.5 - 3.5 Not Available [facility] ([facility]) [address] [facility], [place], [address], 12/20/2024 09:08:32 12/19/1912/20/2024 PROTH ROMBI N TIME (PT) prothrombin time 13.6 sec 9.1-12 .0 above high normal Not Available [facility] ([facility]) [address] [place], [address], 12/20/2024 09:08:32 12/19/1912/20/2024 CBC, PLATE LET, NO DIFFE RENTI AL WBC 4.6 x10e3 /uL 3.4-10 .8 Not Available [facility] ([facility]) [address] [place], [address], 12/20/2024 09:08:33 12/19/1912/20/2024 CBC, PLATE LET, NO DIFFE RENTI AL RBC 3.10 x10e6 /uL 4.14-5 .80 below low normal Not Available [facility] ([facility]) [address] [place], [address], 12/20/2024 09:08:33 12/19/1912/20/2024 CBC, PLATE LET, NO DIFFE RENTI AL hemoglobin 9.1 g/dL 13.0-1 7.7 below low normal Not Available [facility] ([facility]) [address] [facility], [place], [address], 12/20/2024 09:08:33 12/19/1912/20/2024 CBC, PLATE LET, NO DIFFE RENTI AL hematocrit 30.5 % 37.5-5 1.0 below low normal Not Available [facility] ([facility]) [address] [facility], [place], [address], 12/20/2024 09:08:33 12/19/1912/20/2024 CBC, PLATE LET, NO DIFFE RENTI AL MCV 98 fL 79-97 above high normal Not Available [facility] ([facility]) [address] [facility], [place], [address], 12/20/2024 09:08:33 12/19/1912/20/2024 CBC, PLATE LET, NO DIFFE RENTI AL MCH 29.4 pg 26.6-3 3.0 Not Available [facility] ([facility]) [address] [place], [address], 12/20/2024 09:08:33 12/19/1912/20/2024 CBC, PLATE LET, NO DIFFE RENTI AL MCHC 29.8 g/dL 31.5-3 5.7 below low normal Not Available [facility] ([facility]) [address] [place], [address], 12/20/2024 09:08:33 12/19/1912/20/2024 CBC, PLATE LET, NO DIFFE RENTI AL RDW 14.6 % 11.6-1 5.4 Not Available [facility] ([facility]) [address] [place], [address], 12/20/2024 09:08:33 12/19/1912/20/2024 CBC, PLATE LET, NO DIFFE RENTI AL platelets 300 x10e3 /uL 150-45 0 Not Available [facility] ([facility]) [address] [facility] [place], [address], 12/20/2024 09:08:33 05/15/20 25 05/16/2025 COMP. METAB OLIC PANEL (14) glucose 87 mg/dL 70-99 Not Available [facility] ([facility]) [address] [facility] [place], [address], 05/16/2025 11:09:08 05/15/20 25 05/16/2025 COMP. METAB OLIC PANEL (14) BUN 18 mg/dL 8-27 Not Available [facility] ([facility]) [address] [facility] [place], [address], 05/16/2025 11:09:08 05/15/20 25 05/16/2025 COMP. METAB OLIC PANEL (14) creatinine 1.52 mg/dL 0.76-1 .27 above high normal Not Available [facility] ([facility]) [address] [facility] [place], [address], 05/16/2025 11:09:08 05/15/20 25 05/16/2025 COMP. METAB OLIC PANEL (14) eGFR 47 mL/mi n/1.7 3 >59 below low normal Not Available [facility] ([facility]) [address] [place], [address], 05/16/2025 11:09:08 05/15/20 25 05/16/2025 COMP. METAB OLIC PANEL (14) BUN/creatini ne ratio 12 10-24 Not Available [facility] ([facility]) [address] [place], [address], 05/16/2025 11:09:08 05/15/20 25 05/16/2025 COMP. METAB OLIC PANEL (14) sodium 140 mmol/ L 134-14 4 Not Available [facility] ([facility]) [address] [place], [address], 05/16/2025 11:09:08 05/15/20 25 05/16/2025 COMP. METAB OLIC PANEL (14) potassium 5.1 mmol/ L 3.5-5. 2 Not Available [facility] ([facility]) [address] [place], [address], 05/16/2025 11:09:08 05/15/20 25 05/16/2025 COMP. METAB OLIC PANEL (14) chloride 108 mmol/ L 96-106 above high normal Not Available [facility] ([facility]) [address] [place], [address], 05/16/2025 11:09:08 05/15/20 25 05/16/2025 COMP. METAB OLIC PANEL (14) carbon dioxide, total 19 mmol/ L 20-29 below low normal Not Available [facility] ([facility]) [address] [place], [address], 05/16/2025 11:09:08 05/15/20 25 05/16/2025 COMP. METAB OLIC PANEL (14) calcium 9.3 mg/dL 8.6-10 .2 Not Available [facility] ([facility]) [address] [place], [address], 05/16/2025 11:09:08 05/15/20 25 05/16/2025 COMP. METAB OLIC PANEL (14) protein, total 6.5 g/dL 6.0-8. 5 Not Available [facility] ([facility]) [address] [place], [address], 05/16/2025 11:09:08 05/15/20 25 05/16/2025 COMP. METAB OLIC PANEL (14) albumin 3.9 g/dL 3.8-4. 8 Not Available [facility] ([facility]) [address] [place], [address], 05/16/2025 11:09:08 05/15/20 25 05/16/2025 COMP. METAB OLIC PANEL (14) globulin, total 2.6 g/dL 1.5-4. 5 Not Available [facility] ([facility]) [address] [facility], [place], [address], 05/16/2025 11:09:08 05/15/20 25 05/16/2025 COMP. METAB OLIC PANEL (14) bilirubin, total <0.2 mg/dL 0.0-1. 2 Not Available [facility] ([facility]) [address] [facility], [place], [address], 05/16/2025 11:09:08 05/15/20 25 05/16/2025 COMP. METAB OLIC PANEL (14) alkaline phosphatase 64 IU/L 44-121 Not Available [facility] ([facility]) [address] [facility], [place], [address], 05/16/2025 11:09:08 05/15/20 25 05/16/2025 COMP. METAB OLIC PANEL (14) AST (SGOT) 24 IU/L 0-40 Not Available [facility] ([facility]) [address] [facility], [place], [address], 05/16/2025 11:09:08 05/15/20 25 05/16/2025 COMP. METAB OLIC PANEL (14) ALT (SGPT) 17 IU/L 0-44 Not Available [facility] ([facility]) [address] [facility], [place], [address], 05/16/2025 11:09:08 05/15/20 25 05/16/2025 CBC WITH DIFFE RENTI AL/PL ATELE T WBC 4.8 x10e3 /uL 3.4-10 .8 Not Available [facility] ([facility]) [address] [facility], [place], [address], 05/16/2025 11:09:09 05/15/20 25 05/16/2025 CBC WITH DIFFE RENTI AL/PL ATELE T RBC 3.45 x10e6 /uL 4.14-5 .80 below low normal Not Available [facility] ([facility]) [address] [place], [address], 05/16/2025 11:09:09 05/15/20 25 05/16/2025 CBC WITH DIFFE RENTI AL/PL ATELE T hemoglobin 10.6 g/dL 13.0-1 7.7 below low normal Not Available [facility] ([facility]) [address] [place], [address], 05/16/2025 11:09:09 05/15/20 25 05/16/2025 CBC WITH DIFFE RENTI AL/PL ATELE T hematocrit 36.1 % 37.5-5 1.0 below low normal Not Available [facility] ([facility]) [address] [place], [address], 05/16/2025 11:09:09 05/15/20 25 05/16/2025 CBC WITH DIFFE RENTI AL/PL ATELE T MCV 105 fL 79-97 above high normal Not Available [facility] ([facility]) [address] [place], [address], 05/16/2025 11:09:09 05/15/20 25 05/16/2025 CBC WITH DIFFE RENTI AL/PL ATELE T MCH 30.7 pg 26.6-3 3.0 Not Available [facility] ([facility]) [address] [place], [address], 05/16/2025 11:09:09 05/15/20 25 05/16/2025 CBC WITH DIFFE RENTI AL/PL ATELE T MCHC 29.4 g/dL 31.5-3 5.7 below low normal Not Available [facility] ([facility]) [address] [place], [address], 05/16/2025 11:09:09 05/15/20 25 05/16/2025 CBC WITH DIFFE RENTI AL/PL ATELE T RDW 17.6 % 11.6-1 5.4 above high normal Not Available [facility] ([facility]) [address] [facility], [place], [address], 05/16/2025 11:09:09 05/15/20 25 05/16/2025 CBC WITH DIFFE RENTI AL/PL ATELE T platelets 240 x10e3 /uL 150-45 0 Not Available [facility] ([facility]) [address] [facility], [place], [address], 05/16/2025 11:09:09 05/15/20 25 05/16/2025 CBC WITH DIFFE RENTI AL/PL ATELE T neutrophils 66 % notest ab. Not Available [facility] ([facility]) [address] [facility], [place], [address], 05/16/2025 11:09:09 05/15/20 25 05/16/2025 CBC WITH DIFFE RENTI AL/PL ATELE T lymphs 15 % notest ab. Not Available [facility] ([facility]) [address] [facility], [place], [address], 05/16/2025 11:09:09 05/15/20 25 05/16/2025 CBC WITH DIFFE RENTI AL/PL ATELE T monocytes 12 % notest ab. Not Available [facility] ([facility]) [address] [facility], [place], [address], 05/16/2025 11:09:09 05/15/20 25 05/16/2025 CBC WITH DIFFE RENTI AL/PL ATELE T eos 7 % notest ab. Not Available [facility] ([facility]) [address] [facility], [place], [address], 05/16/2025 11:09:09 05/15/20 25 05/16/2025 CBC WITH DIFFE RENTI AL/PL ATELE T basos 0 % notest ab. Not Available [facility] ([facility]) [address] [facility], [place], [address], 05/16/2025 11:09:09 05/15/20 25 05/16/2025 CBC WITH DIFFE RENTI AL/PL ATELE T neutrophils (absolute) 3.1 x10e3 /uL 1.4-7. 0 Not Available [facility] ([facility]) [address] [facility], [place], [address], 05/16/2025 11:09:09 05/15/2005/16/2025 CBC WITH DIFFE RENTI AL/PL ATELE T lymphs (absolute) 0.7 x10e3 /uL 0.7-3. 1 Not Available [facility] ([facility]) [address] [place], [address], 05/16/2025 11:09:09 05/15/20 25 05/16/2025 CBC WITH DIFFE RENTI AL/PL ATELE T monocytes(ab solute) 0.6 x10e3 /uL 0.1-0. 9 Not Available [facility] ([facility]) [address] [place], [address], 05/16/2025 11:09:09 05/15/2005/16/2025 CBC WITH DIFFE RENTI AL/PL ATELE T eos (absolute) 0.4 x10e3 /uL 0.0-0. 4 Not Available [facility] ([facility]) [address] [place], [address], 05/16/2025 11:09:09 05/15/20 25 05/16/2025 CBC WITH DIFFE RENTI AL/PL ATELE T baso (absolute) 0.0 x10e3 /uL 0.0-0. 2 Not Available [facility] ([facility]) [address] [place], [address], 05/16/2025 11:09:09 05/15/20 25 05/16/2025 CBC WITH DIFFE RENTI AL/PL ATELE T immature granulocytes 0 % notest ab. Not Available [facility] ([facility]) [address] [facility], [place], [address], 05/16/2025 11:09:09 05/15/20 25 05/16/2025 CBC WITH DIFFE RENTI AL/PL ATELE T immature grans (abs) 0.0 x10e3 /uL 0.0-0. 1 Not Available [facility] ([facility]) [address] [facility], [place], [address], 05/16/2025 11:09:09 05/15/20 25 05/16/2025 PT AND [...] 2.5 - 3.5 Not Available [facility] ([facility]) [address] [facility], [place], [address], 05/16/2025 11:09:09 05/15/20 25 05/16/2025 PT AND PTT prothrombin time 16.2 sec 9.1-12 .0 above high normal Not Available [facility] ([facility]) [address] [place], [address], 05/16/2025 11:09:09 05/15/20 25 05/16/2025 PT AND [...] of Kahlil alvarez. Not Available [facility] ([facility]) [address], [place], [address], 05/16/2025 11:09:09 01/07/20 25 01/06/2025 cardi ac stres s test No observ ation record ed. [address], [address], 01/18/2025 17:00:56 01/19/20 25 01/06/2025 adeno sine stres s test (PROC ) No observ ation record ed. [address], [address], 01/19/2025 17:33:35 02/03/20 25 01/05/2025 PFT, compl ete No observ ation record ed. [address], [address], 02/02/2025 17:00:46 05/02/20 25 12/15/2022 US, duple x, aorta No observ ation record ed. rachel Rooney MD [address] [facility] [facility] [address], [place], [address], 05/02/2025 11:39:35 05/02/20 25 04/01/2022 PET, skull [...] Time Gastroesophag eal reflux disease without esophagitis 326108972 Active 2023 Bubba Alcala MD Attn: Accounting ,[address] [facility], [place], [address] , [facility] 4 22:09:46 Dyslipidemia 602490430 Active 2023 Bubba Alcala MD Attn: Accounting ,[address] [facility], [place], [address] , [facility] 4 22:09:47 Chronic anemia 015922724 Active 2023 Bubba Alcala MD Attn: Accounting ,[address] [facility], [place], [address] , [facility] 4 22:09:50 Inflammatory bowel disease 03778492 Active 2023 Bubba Alcala MD Attn: Accounting ,[address] [facility], [place], [address] , [facility] 22:09:52 History of pulmonary embolus 745102167 Active 2023 Bubba Alcala MD Attn: Accounting ,[address] [facility], [place], [address] , [facility] 4 22:12:55 History of malignant neoplasm of prostate 315592384 Active 2023 Bubba Alcala MD Attn: Accounting ,[address] [facility], [place], [address] , [facility] 22:14:37 Cervical spondylosis 521740857 Active 2023 Bubba Alcala MD Attn: Accounting ,[address] [place], [address] , [facility] 4 21:43:45 Long-term current use of anticoagulant 098298276 Active 2024 Sabi Carranza RN [facility], [place] - [facility] 5 14:11:42 Problem Notes None recorded. Procedures Surgical History Date Name Laterality Status Provider Name and Address Organization Details Recorded Time colonoscopy completed Scarlett Louis MA [place] - [facility] 12/08/2024 16:02:50 endoscopy completed Scarlett Louis MA [place] - [facility] 12/08/2024 16:02:58 Imaging Results None recorded. Procedure Notes None recorded. Medical Equipment None Reported. Allergies Allergen ID Allergen Name Allergen Category Reaction Reaction Severity Criticality Documentation Date Start Date Code Code System Note Provider Name and Address Organization Details Recorded Time [id number] amoxicill in medicatio n hives Not available Not available 12/28/2023 723 RxNorm NORA Cadet null, [place] - [facility] 4 16:18:47 995739 Farxiga medicatio n Not available Not available Not available 12/28/2023 72303 72 RxNorm peria nal rash CHARLOTTE CadetA null, [place] - [facility] 4 16:19:36 862437 Celebrex medicatio n hives Not available Not available 12/28/2023 99723 7 RxNorm NORA [place], [place] [facility] 4 16:19:58 985559 Lyrica medicatio n Not available Not available Not available 12/28/2023 86448 1 RxNorm blurr y visio n NORA [place], [place] [facility] 4 16:20:09 731735 celecoxib medicatio n other Not available Not available 07/24/20252019 01821 7 RxNorm SYDNIE [place], [place] - [facility] 5 15:16:04 dapaglifl ozin Not available rash Not available high 07/24/20252023 62577 64 RxNorm Farxi ga unrec ogniz ed react ion (text : Unkno wn, code: 77220 5006) (from exter nal sour e) SYDNIE [place], [place] - [facility] 5 15:16:08 dapaglifl ozin propanedi ol medicatio n rash Not available low 07/24/20252023 88109 66 RxNorm SYDNIE [place], [place] [facility] 5 15:16:10 Product containin g penicilli n (product) medicatio n other Not available high 07/24/20252009 80067 8001 SNOMED SYDNIE [place], [place] - [facility] 5 15:16:13 19910507 pregabali n medicatio n other rash Not available Not available high 08/18/20252016 60423 2 RxNorm Radha a unrec ogniz ed react ion (text : Unkno wn, code: 09660 5006) [facility] Not Available jose francisco - [...] Not Available Not Available No t Available Lovenox 120 mg/0.8 mL subcutaneo us syringe INJECT 120mg QAM 2024 active Not Available Not Available Not Avai lable oxycodone 5 mg tablet TAKE 1 TABLET BY MOUTH EVERY 6 HOURS NEEDED FOR PAIN 07/24 completed Not Available Not Available Not Available solifenaci n 5 mg tablet TAKE [...] Updated DateTime 5 181.61 cm 38.8 kg/m2 254605. 69 g 97 % 97 % 64 /min 120/78 mm[Hg] Scarlett Louis MA [facility] 5 16:07:53 Date Recorded Body height Body mass index (BMI) Body weight Heart rate Oxygen saturation Oxygen saturation in Arterial blood by Pulse oximetry Systolic And Diastolic Provider Name and Address Organization Details Last Updated DateTime 5 181.61 cm 33.5 kg/m2 927320. 82 g 96 /min 97 % 97 % 110/78 mm[Hg] Scarlett Louis MA [facility] 5 14:20:07 Date Recorded Body height Body mass index (BMI) Body weight Heart rate Oxygen saturation Oxygen saturation in Arterial blood by Pulse oximetry Systolic And Diastolic Provider Name and Address Organization Details Last Updated DateTime 5 181.61 cm 34.2 kg/m2 792569. 34 g 65 /min 99 % 99 % 120/72 mm[Hg] Milagro Tom MA [facility] 5 15:47:03 Date Recorded Body height Body mass index (BMI) Body weight Heart rate Oxygen saturation Oxygen saturation in Arterial blood by Pulse oximetry Systolic And Diastolic Provider Name and Address Organization Details Last Updated DateTime 4 181.61 cm 39.9 kg/m2 545169. 47 g 62 /min 99 % 99 % 126/68 mm[Hg] Sherine Hammonds MA [facility] 4 14:52:37 Date Recorded Body height Body mass index (BMI) Body weight Heart rate Oxygen saturation Oxygen saturation in Arterial blood by Pulse oximetry Systolic And Diastolic Provider Name and Address Organization Details Last Updated DateTime 5 181.61 cm 35.2 kg/m2 380031. 01 g 61 /min 95 % 95 % 112/72 mm[Hg] Milagro SYDNIE Tom [facility] 5 15:15:52 Social History Question Answer Notes LastModified by Organizat ion Details LastModified Time Tobacco Smoking Status Former Smoker NORA Cadet, [facility] 12/28/2023 16:20:38 Do You Have An [...] Functional Status Question Answer Note LastModified by [employer] ion Details LastModified Time Do you use [...] Skin Problems N Anemia Y Heart Attack (VT) Y Anxiety Disorder N Diabetes N Muscle, [...] Influenza, high-dose, quadrivalent, PF 3 completed Emily [place], [place] - [facility] 11/17/2024 11:46:12 Influenza, high-dose, quadrivalent, PF 2 completed [place] [facility] 11/17/2024 11:46:12 Influenza, high-dose, quadrivalent, PF 1 completed [place] [facility] 11/17/2024 11:46:12 COVID-19, mRNA, LNP-S, PF, 100 mcg/0.5mL dose or 50 mcg/0.25mL dose 2 completed [place] [facility] 11/17/2024 11:46:12 COVID-19, mRNA, LNP-S, PF, 100 mcg/0.5mL dose or 50 mcg/0.25mL dose 1 completed [place] [facility] 11/17/2024 11:46:12 COVID-19, mRNA, LNP-S, PF, 100 mcg/0.5mL dose or 50 mcg/0.25mL dose 1 completed [place] [facility] 11/17/2024 11:46:12 COVID-19, mRNA, LNP-S, PF, 100 mcg/0.5mL dose or 50 mcg/0.25mL dose 1 completed [place] [facility] 11/17/2024 11:46:12 influenza, unspecified formulation 8 completed [place] - [facility] 11/17/2024 11:46:12 influenza, unspecified formulation 4 completed [place] [facility] 11/17/2024 11:46:13 Influenza, high-dose, trivalent, PF 8 completed [place] [facility] 11/17/2024 11:46:13 Influenza, high-dose, trivalent, PF 9 completed [place] [facility] 11/17/2024 11:46:13 Influenza, high-dose, trivalent, PF 7 completed [place] [facility] 11/17/2024 11:46:13 Influenza, split virus, trivalent, preservative 3 completed [place] [facility] 11/17/2024 11:46:13 Influenza, split virus, quadrivalent, PF 5 completed [place] [facility] 11/17/2024 11:46:13 Pneumococcal conjugate PCV20, polysaccharide [id number] conjugate, adjuvant, PF 4 completed Bubba Alcala MD Attn: Accounting,[address] [place], [address], [facility] - [facility] 05/01/2024 22:07:26 Influenza, high-dose, trivalent, PF 4 completed Bubba Alcala MD Attn: Accounting[address] [place], [address], [place] - [facility] 07/30/2024 21:41:48 Influenza, high-dose, trivalent, PF 5 completed Cherri [place] null, [place] - [facility] 08/03/2025 12:41:20 Past Encounters Encounter ID Performer Location Encounter Start Date Encounter Closed Date Diagnosis/Indication Diagnosis SNOMED-CT Code Diagnosis ICD10 Code Diagnosis IMO Codes Diagnosis Note [id number] Bubba Alcala MD [facility] (Adult Med) [address] [place] [phone] 0 12/28/2023 15:33:31 12/28/2023 17:03:34 Proctitis 0928095 K62.89 Anticoagulant therapy 18 2663566 Z79.01 Hyperlipidemia 46252779 E78.5 Long-term drug therapy 136361283 Z79.899 Nonischemi c congestive cardiomyopathy 2678309768 04 I42.0 History of malignant neoplasm of prostate 054822144 Z85.46 Chronic ki dney disease stage 3 379194164 N18.30 Ventricula r tachycardia 63654929 I47.20 [id number] MD Rnee [place]ored[place] (Adult Med) [address] [place] [phone] 0 04/05/2024 15:47:26 04/05/2024 17:08:10 Administration of pneumococcal vaccine 11421338 Z23 Gastroesop hageal reflux disease without esophagitis 786965584 K21.9 Dyslipidemia 996314289 E 78.5 Chronic anemia 642823131 D64.9 Inflammato ry bowel disease 10608202 K52.9 History of pulmonary embolus 276803931 Z86.711 History of malignant neoplasm of prostate 283643155 Z85.46 [id number] Bubba Alcala MD [facility] (Adult Med) [address] [place] [address] [phone] 0 07/12/2024 14:26:22 07/12/2024 15:52:19 Body mass index 30+ - obesity 821450735 Z68.39 BMI 39.9 Administra tion of influenza vaccine 48187964 Z23 Dyslipidemia 733505877 E 78.5 Chronic anemia 307254917 D64.9 Gastroesop hageal reflux disease without esophagitis 476851469 K21.9 Cervical spondylosis 387 150959 M47.467 [id number] Bubba Alcala MD [address] [place] [id number] 1 12/08/2024 15:00:29 12/08/2024 16:45:43 Body mass index 30+ - obesity 418502240 Z68.39 BMI 39.9 Chronic anemia 892056930 D64.9 Gastroesop hageal reflux disease without esophagitis 133545925 K21.9 Dyslipidemia 678054895 E 78.5 Proctitis 9030097 K62.89 Anticoagulant therapy 18 5692668 Z79.01 Hyperlipidemia 33239852 E78.5 Long-term drug therapy 740839735 Z79.899 Nonischemi c congestive cardiomyopathy 3901215213 04 I42.0 History of malignant neoplasm of prostate 606856447 Z85.46 Chronic ki dney disease stage 3 454831783 N18.30 Ventricula r tachycardia 70618687 I47.20 History of pulmonary embolus 163387108 Z86.048 [id number] Bubba Alcala MD [facility] [place] [address] [place] [address] 03/16/2025 14:02:27 03/16/2025 14:50:25 Body mass index 30+ - obesity 111235668 Z68.33 371224 BMI 39.9 Obese class I 3236162965 95901 E66.811 3643242589 BMI 39.9 Gastroesop hageal reflux disease without esophagitis 882771188 K21.9 Inflammato ry bowel disease 84029063 K52.9 Chronic anemia 122646392 D64.9 Cervical spondylosis 387 824768 M47.812 Dyslipidemia 611300931 E 78.5 History of pulmonary embolus 373658915 Z86.990 [id number] Bubba Alcala MD [facility] [place] [address] [place] [address] 04/27/2025 15:01:15 04/27/2025 16:37:50 Body mass index 30+ - obesity 008862119 Z68.34 900916 BMI 39.9 Obese class I 3686063882 68981 E66.811 1841905523 BMI 39.9 Adult [facility] th examination 111984699 Z00.00 Health Risk Assessment collected and reviewed Chronic anemia 505625148 D64.9 History of pulmonary embolus 144964343 Z86.711 Gastroesop hageal reflux disease without esophagitis 911524854 K21.9 Inflammato ry bowel disease 51396940 K52.9 History of malignant neoplasm of prostate 518883235 Z85.46 Cervical spondylosis 387 791381 M47.812 Dyslipidemia 251494514 E 78.5 [id number] Bubba Alcala MD [facility] [place] [address] [place] [address] 07/24/2025 15:05:01 07/24/2025 16:20:30 Obese class II 8489528935 08319 E66.812 E66.3 1340405630 BMI 35.2 Influenza vaccination given 1473905404 9109 Z23 61899798 Long-term current use of anticoagulant 268171808 Z79.01 1026075 Dyslipidemia 654577453 E 78.5 Health Concerns Section Related Observation LastModified by Organization Detai ls LastModified Time None Recorded Concern Status LastModified by Organization Details LastModified Time None Recorded Advance Directives Directive N: Payers Insurance Date Sequence Insurance Name Policy Number Policy Abbasi Covered Member ID Abbasi Member ID Guarantor Name 07/21/2025 1 [facility] (MEDICARE REPLACEMENT/A DVANTAGE - HMO) [id number] Marshall Olson [id number] Marshall Olson Notes Date Note Type Note [...] proctitis Bubba Alcala MD Attn: Accounting,[address] [place], [address], [facility] 07/30/2024 21:45:03 5 text/html anemia he received [...] Miller's Bubba Alcala MD Attn: Accounting[address] [place], [address], [facility] 12/08/2024 21:26:54 5 text/html Struggling with some [...] cancer Bubba Alcala MD Attn: Accounting,[address] [facility], [place], [address], [facility] 03/16/2025 14:50:00 5 text/html TANISHA 2Reported by [...] bowel disease has been stable SYDNIE Azar, [facility] 05/04/2025 12:46:51 5 text/html They are [...] bleeding Bubba Alcala MD Attn: Accounting,[address], [place], [address], [facility] 07/24/2025 22:10:30
--- OUTSIDE RECORDS SUMMARY | 2025-08-31 10:21 | XMS_ITS | Clinical Summary ---
Author Organization [facility] Address [address] [place] [address] Care Team Providers Care Crop Supervisor Name Role Phone Jas Alcala MD Primary Care Provider [phone] Allergies Active Allergy Reactions Criticality Noted Date [...] (06/17/2022): Added automatically from request for surgery [id number] Family History Medical History Relation Comments Cancer [...] to complete this topic Insurance Care Teams Crop Supervisor Relationship Specialty Start Date End Date Jas Alcala MD PCP - General INTERNAL MEDICINE 02/11/22
--- OUTSIDE RECORDS SUMMARY | 2025-08-31 10:21 | XMS_ITS ---
Author Organization [facility] Address [address] [place] [address] Care Team Providers Care Instructional Interventionist Name Role Phone Lucio Rosas MD Unavailable Hero Pinedo MD Unavailable [phone] Jas Alcala MD Primary Care Provider [phone] Lon Tomas MD Unavailable [phone] Jaycee Teresa MD Unavailable [phone] Francisco Jones DO Unavailable [phone] Jaycee Teresa MD Unavailable [phone] Active Problems Patient Care Coordination No te [...] He also has a history of an [place] and PE. 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 -Pathology discuss in detail and all questions were answered -Refer for EUS -Refer to Oncology and Cardiothoracic surgery Miller's esophagus with high grade dysplasia Assessment & Plan (11/25/2024 9:41 AM CLINICAL FIELD SPECIALIST): EGD September 2024 with irregular Z-line and gastric ulcers. Pathology with Barretts esophagus, indefinite for dysplasia. Repeat EGD November 2024 with Barretts esophagus, pathology with high-grade dysplasia. -Continue pantoprazole 40 mg p.o. b.i.d. History of colon polyps 11/25/2024 Assessment & Plan (11/25/2024 9:42 AM CLINICAL FIELD SPECIALIST): Colonoscopy November 2024 with multiple tubular adenomas. -Repeat colonoscopy November 2027 Gastric ulcer 09/23/2024 Anemia due to blood loss 09/23/2024 Rectal bleeding 08/22/2024 Radiation proctitis 08/22/2024 Assessment & Plan (11/25/2024 9:41 AM CLINICAL FIELD SPECIALIST): Colonoscopy November 2024 with severe radiation proctitis status post APC. -Consider flex sig with APC, patient advised to call office if rectal bleeding gets worse Eosinophilia 02/22/2024 Iron deficiency anemia, unspecified 02/22/2024 Anemia 02/22/2024 VT (ventricular tachycardia) 05/09/2022 Overview (05/09/2022): Added automatically from request for surgery [id number] Lower urinary tract symptoms (LUTS) 05/24/2020 Malignant [...]
--- OUTSIDE RECORDS SUMMARY | 2025-08-31 10:21 | XMS_ITS | Clinical Summary ---
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 Pathology with Barretts esophagus, indefinite for dysplasia. Repeat EGD November 2024 with Barretts esophagus, pathology with high-grade dysplasia. -Continue pantoprazole 40 mg p.o. b.i.d. 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 -Consider flex sig with APC, patient advised to call office if rectal bleeding gets worse Eosinophilia 02/22/2024 Iron deficiency anemia, unspecified 02/22/2024 Anemia 02/22/2024 VT (ventricular tachycardia) 05/09/2022 Overview (05/09/2022): Added automatically from request for surgery [id number] Lower urinary tract symptoms (LUTS) 05/24/2020 Malignant neoplasm of prostate 04/25/2013 Encounters Date Type Department Care Team Description 08/30/20 Telephone [facility] Gastroenterology [address] [place] [address] Medical Office Building 4, [address] [place] [phone] Leslie Thomas RN GI call 08/25/20 4:06 PM CDT - 08/25/20 7:32 PM CDT Emergency [facility] Emergency Department [address] [place] [address] Muriel Dodson MD Bradycardia (Primary Dx); Pericardial effusion; Anemia, unspecified type Discharge Disposition: Discharge to home or self care 08/25/20 12:30 PM CDT Anesthesia Event [facility] Digestive Disease Center [address] [place] [phone] Truman Naqvi MD Leach, Shannin L., JACQUELINE 08/25/20 10:36 AM CDT - 08/25/20 4:05 PM CDT Hospital Encounter [facility] Disease Center [address] [place] [address] Jerry Peguero MD Discharge Disposition: Still a patient 08/23/20 9:15 AM CDT Clinical Support [facility] [place] [address] Anemia, unspecified type; History of pulmonary embolism; Malignant neoplasm of lower third of esophagus (HCC); Abnormal coagulation profile 08/23/20 Telephone [facility] Medicine Gastroenterology [address] [place] [address] Medical Office Building [address], [address] [place] [phone] Flor Oviedo, WILBER INR 08/23/20 Telephone [facility] at [address] [phone] Francie Hassan RN 08/18/20 Telephone [facility] Medicine Gastroenterology [address] [place] [address] Medical Office Building [address], [address] [place] [phone] Flor Oveido, RN AC Hold recommendations - warfarin 08/09/20 12:00 PM CDT Infusion [facility] at [address] [phone] Iron deficiency anemia, unspecified iron deficiency anemia type (Primary Dx); Anemia, unspecified type; History of pulmonary embolism; Malignant neoplasm of lower third of esophagus (HCC) 08/09/20 11:30 AM CDT Clinical Support [facility] at [address] [address] Anemia, unspecified type; History of pulmonary embolism 08/08/20 Orders Only [facility] Medicine Hematology [address] [place] [address] 6 [place] [phone] Zhang, Gertrude Lisa Anemia, unspecified type (Primary Dx); History of pulmonary embolism 08/01/20 Orders Only [facility] Medicine Hematology [address] [place] [address] 6 [place] [phone] Zhang, Gertrude Lisa Anemia, unspecified type (Primary Dx); History of pulmonary embolism 07/26/20 11:00 AM CDT Clinical Support [facility] at [address] [address] Anemia, unspecified type; History of pulmonary embolism 07/26/20 Telephone [facility] at [address] [phone] Kaycee Chanel RN 07/25/20 Telephone [facility] Medicine Gastroenterology [address] [place] [address] Medical Office Building [address], [address] [place] [phone] Leslie Thomas RN GI Preprocedure 07/24/20 Telephone [facility] G[facility]enterology [address] [facility] Medical Office Building [address], [address] [place] [phone] Lauren Delgado LPN GI Preprocedure 07/21/20 10:48 AM CDT Anesthesia Event [facility] Digestive Disease [address] [address] Jacobo Horne MD 07/21/20 10:30 AM CDT - 07/21/20 11:00 AM CDT Surgery [facility] Digestive Disease [address] [address] Jerry Peguero MD ESOPHAGOSCOPY 07/21/20 8:50 AM CDT - 07/21/20 12:30 PM CDT Hospital Encounter [facility] Digestive Disease [address] [address] Jerry Peguero MD Discharge Disposition: Discharge to home or self care 07/21/20 8:30 AM CDT Lab [facility] [address] [place] [phone] Malignant neoplasm of lower third of esophagus (HCC); Abnormal coagulation profile 07/20/20 10:00 AM CDT Office Visit [facility] Oncology [address] [place] [phone] Francisco Jones DO Malignant neoplasm of lower third of esophagus (HCC) (Primary Dx) 07/20/20 9:30 AM CDT Clinical Support [facility] at [address] [address] Malignant neoplasm of lower third of esophagus (HCC); Anemia, unspecified type; History of pulmonary embolism 07/13/20 25 9:36 AM CDT - 07/13/20 11:59 PM CDT Hospital Encounter [facility] Medical Office Building [address] [place] [address] Malignant neoplasm of lower third of esophagus (HCC) Discharge Disposition: Discharge to home or self care 07/13/20 9:00 AM CDT Clinical Support [facility] at [address] [address] Anemia, unspecified type; History of pulmonary embolism 07/13/20 Telephone [facility] at [address] [place] [phone] Kaycee Chanel RN 07/10/20 Telephone [facility] Gastroenterology [address] [facility] Medical Office Building [address], [address] [place] [address] Leslie Thomas RN GI Preprocedure 07/10/20 Orders Only [facility] Gastroenterology at [address] [place] [address] Lucio Rosas MD Miller's esophagus with high grade dysplasia (Primary Dx); Malignant neoplasm of lower third of esophagus (HCC) 06/28/20 2:00 PM CDT - 06/28/20 2:30 PM CDT Surgery [facility] [address] [place] [phone] Jerry Peguero MD EGD 06/28/20 1:15 PM CDT Anesthesia Event [facility] [address] [place] [phone] Sergio Gao MD 06/28/20 12:31 PM CDT - 06/28/20 2:18 PM CDT Hospital Encounter [facility] Center [address] [place] [phone] Jerry Peguero MD Discharge Disposition: Discharge to home or self care 06/28/20 12:05 PM CDT Lab [facility] Outpatient Lab [address] [place] [phone] Malignant neoplasm of lower third of esophagus (HCC); Abnormal coagulation profile 06/23/20 Telephone [facility] Gastroenterology [address] [place] [address] Medical Office Building [address], [address] [place] [phone] Leslie Thomas RN GI Preprocedure 06/23/20 Telephone [facility] Gastroenterology [address] [place] [address] Office Building [address], [address] [place] [phone] Lauren Delgado LPN GI Preprocedure 06/23/20 Telephone [facility] Gastroenterology [address] [place] [address] Office Building [address], [address] [place] [phone] Amber Posada RN MD recommendations 06/19/20 10:30 AM CDT Anesthesia Event [address] [address] Jacobo Horne MD 06/19/20 10:00 AM CDT - 06/19/20 10:30 AM CDT Surgery [facility] Digestive Disease [address] [address] Jerry Peguero MD ESOPHAGOGASTRODUODENOSCOPY WITH ABLATION 06/19/20 8:12 AM CDT - 06/19/20 11:51 AM CDT Hospital Encounter [facility] Digestive Disease [address] [address] Jerry Peguero MD Discharge Disposition: Discharge to home or self care 06/19/20 7:45 AM CDT Lab [facility]) [address] [place] [phone] Anemia, unspecified type; History of pulmonary embolism 06/14/20 11:15 AM CDT Infusion [facility] at [address] [place] [phone] Iron deficiency anemia, unspecified iron deficiency anemia type (Primary Dx); Anemia, unspecified type; History of pulmonary embolism 06/14/20 10:30 AM CDT Office Visit [facility] Hematology [address] [place] [phone] Mihaeal Rod, AGNIESZKA Anemia, unspecified type (Primary Dx); History of pulmonary embolism 06/14/20 10:00 AM CDT Clinical Support [facility] at [address] [address] Anemia, unspecified type; History of pulmonary embolism 06/13/20 Orders Only [facility] Hematology [address] [place] [phone] Gertrude Zhang Anemia, unspecified type (Primary Dx); History of pulmonary embolism 06/13/20 Results Follow-Up [facility] Physicians [facility] Hematology [address] [place] [phone] Mihaela Rod, AGNIESZKA Reticulocyte Count, CBC with auto differential, Iron profile w/ IBC, Additional followed-up results: 2 06/07/20 9:30 AM CDT Clinical Support [facility] at [address] [address] Anemia, unspecified type; History of pulmonary embolism 06/07/20 Orders Only [address] [phone] Cathy Lawrence RN 06/02/20 Telephone [facility] Gastroenterology [address] [place] [address] Medical Office Building 4, [address] [place] [phone] Leslie Thomas RN GI Preprocedure 06/01/20 2:15 PM CDT Office Visit [facility] Medicine [facility]icians [facility] Oncology [address] [place] [phone] Francisco Jones DO Malignant neoplasm of lower third of esophagus (HCC) (Primary Dx) 06/01/20 Orders Only [facility] Hematology [address] [place] [address] 6 [place] [address] Gertrude Zhang Anemia, unspecified type [...] TONSILLECTOMY Tonsillectomy - (Added by TW Conv) [place] REPAIR FIRST ABDOMINAL [place] LL HERNIA Ventral Hernia Repair - 11/2013 (Added by TW Conv) w/poss mesh CATARACT EXTRACTION, BILATERAL COLONOSCOPY URETHRAL DILATION N/A UPPER GASTROINTESTINAL ENDOSCOPY PORT PLACEMENT CHEST >5 YEARS 01/11/2025 N/A ESOPHAGOGASTRODUODENOSCOPY cyro CHOLECYSTECTOMY Medical History Medical History Date Comments Chronic bronchitis with productive mucopurulent cough (HCC) Prostate cancer (HCC) Hepatitis A Neuropathy 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[place] (myocardial infarction) (HCC) 2018 PE (pulmonary thromboembolism) [...] on file Legal Sex Male 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 Gender Identity Not on file Sexual Orientation Not on file 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 [employer] Not on file Not on file Not [...] exists Fall Risk Assessment 08/25/2026 08/25/2025, 01/05/20 25 Colon Cancer Screening-Colonoscopy 11/17/2027 11/17/2024 Colon Cancer Screening-CT Colonography Discontinued 11/17/2024 Colon Cancer Screening-DNA Stool Discontinued 11/17/19 Colon Cancer Screening-FIT Discontinued 11/17/2024 Colon Cancer Screening-Sigmoidoscopy Discontinued 11/17/2024 Abdominal Aortic Aneurysm (A AA) Screen Completed 12/13/2024 Influenza Vaccine Completed 07/24/2025, , 09/04/2021, Additional history exists Medical Devices Implanted Type Area Racing Mechanic Device Identifier Shelf Expiration Date Model / Serial / Lot Screws And Rods Spine Lumbar [employer] X[employer]a Power Port 8fr [id number] - [id number] Implanted:Qty: 1 on 01/11/2025 by Linda Cardenas PA at [facility] [employer] 08/29/2029 [id number] / / [id number] Procedures Procedure Name Priority Date/Time Associated Diagnosis [...] Read Routine (OP Routine) 12/13/2024 7:09 AM 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 Malignant neoplasm of lower third of esophagus (HCC) COLONOSCOPY 11/17/2024 9:34 AM 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 from Last 3 Months or Most Recently [...] Electronically signed by: Naveen Huertas MD PHD us Paige Benoit MD IMG XR PROCEDURES Final [...] ORDERABLES Fi nal Result Performing Organization Address [facility]/ZIP Co de Phone Number ISAAC [facility] [place] [address] * (ABNORMAL) eGFR (08/25/2025 4:43 PM CDT) [...] ORDERABLES Fi nal Result Performing Organization Address City/[facility]/ZIP Co de Phone Number ISAAC [facility] Department [place] [address] * (ABNORMAL) Differential, auto (08/25/2025 4:43 PM CDT) Neutrophil abs 2.39 1.50 - 6.50 K/cumm Imm gran abs 0.03 0.00 - 0.10 K/cumm [facility] Lymphocyte abs 0.72(L) 0.80 - 3.30 K/cumm [facility] Monocyte abs 0.87(H) 0.20 - 0.80 K/cumm [facility] Eosinophil abs 0.25 0.00 - 0.50 K/cumm [facility] Basophil abs 0.03 0.00 - 0.10 K/cumm [facility] Neutrophil pct 55.7 % [facility] Comment: Interpretive Data Percent cell count reference ranges are not reported, since discordance with absolute values may lead to misinterpretation of CBC data. Current Interpretive Data was last revised on 2018. Imm gran pct 0.7 % [facility] Comment: Interpretive Data Percent cell count reference ranges are not reported, since discordance with absolute values may lead to misinterpretation of CBC data. Current Interpretive Data was last revised on 2018. Lymphocyte pct 16.8 % [facility] Comment: Interpretive Data Percent cell count reference ranges are not reported, since discordance with absolute values may lead to misinterpretation of CBC data. Current Interpretive Data was last revised on 2018. Monocyte pct 20.3 % [facility] Comment: Interpretive Data Percent cell count reference ranges are not reported, since discordance with absolute values may lead to misinterpretation of CBC data. Current Interpretive Data was last revised on 2018. Eosinophil pct 5.8 % [facility] Comment: Interpretive Data Percent cell count reference ranges are not reported, since discordance with absolute values may lead to misinterpretation of CBC data. Current Interpretive Data was last revised on 2018. Basophil pct 0.7 % [facility] Comment: Interpretive Data Percent cell count reference ranges are not reported, since discordance with absolute values may lead to misinterpretation of CBC data. Current Interpretive Data was last revised on 2018. Blood 08/25/2025 4:43 PM CDT 08/25/2025 4:58 PM CDT us Paige Benoit MD LAB BLOOD ORDERABLES Fi nal Result Performing Organization Address [facility] Co de Phone Number [facility] Department [place] [address] * (ABNORMAL) CBC with auto differential (08/25/2025 4:43 PM CDT) Pathologist [facility] WBC 4.29 3.80 - 9.90 K/cumm Hgb 9.0(L) 13.0 - 17.5 g/dL [facility] Hct 29.6(L) 38.9 - 50.3 % [facility] Plt 208 150 - 400 K/cumm [facility] MPV 8.4(L) 9.1 - 12.[address] [facility] RBC 3.12(L) 4.30 - 5.80 M/cumm [facility] MCV 94.9 81.3 - 96.[address] [facility] MCH 28.8 27.1 - 33.[address] [facility] MCHC 30.4(L) 32.3 - 35.7 g/dL [facility] RDW CV 17.9(H) 11.1 - 14.9 % [facility] RDW SD 60.9(H) 35.7 - 48.[address] [facility] NRBC abs 0.00 0.00 - 0.01 K/cumm [facility] Blood 08/25/2025 4:43 PM CDT 08/25/2025 4:58 PM CDT us Paige Benoit MD LAB BLOOD ORDERABLES Fi nal Result Performing Organization Address City/[facility]/ZIP Co de Phone Number [facility] [place] [address] * aPTT (08/25/2025 4:43 PM CDT) aPTT 35 26 - 38 sec Comment: Interpretive Data Heparin therapeutic range: 66.0 - 100.0 seconds. Range based on correlation with therapeutic heparin activity range of 0.3 - 0.7 Units/mL. Current interpretive data was last revised on 2023. Blood 08/25/2025 4:43 PM CDT 08/25/2025 4:57 PM CDT Paige Benoit MD LAB BLOOD ORDERABLES Fi nal Result Performing Organization Address [facility] de Phone Number [facility] [place] [address] * (ABNORMAL) Protime-INR (08/25/2025 4:43 PM CDT) Pathologist [facility] PT 15.6(H) 10.2 - 13.5 sec INR 1.39(H) 0.90 - 1.[address] [facility] Comment: Interpretive data Oral anticoagulant therapeutic ranges: Venous thromboembolism prophylaxis or treatment: 2.0-3.0 CARDIOLOGY Standard range: 2.0-3.0 High-intensity range: 2.5-3.5 Refer to indication-specific guidelines for appropriate target ranges for prosthetic heart valve replacement. Current interpretive data was last revised on 2019. Blood 08/25/2025 4:43 PM CDT 08/25/2025 4:57 PM CDT Paige Benoit MD LAB BLOOD ORDERABLES Fi nal Result Performing Organization Address [facility] Co de Phone Number [facility] Department [place] [address] * (ABNORMAL) Comprehensive metabolic panel (08/25/2025 4:43 PM CDT) Pathologist [facility] Sodium 141 135 - 145 mmol/L Potassium, pl 3.8 3.3 - 4.9 mmol/L [facility] Chloride 106 97 - 110 mmol/L [facility] CO2 23 22 - 32 mmol/L [facility] Anion gap 12 2 - 15 mmol/L [facility] BUN 15 6 - 25 mg/dL [facility] Creatinine 1.53(H) 0.80 - 1.30 mg/dL [facility] Glucose 107 70 - 199 mg/dL [facility] Comment: Interpretive Data Fasting glucose >/= [...] 2022. Calcium 8.4(L) 8.5 - 10.3 mg/dL [facility] Bilirubin, total 0.2 0.1 - 1.2 mg/dL [facility] Protein, pl 6.5 6.5 - 8.5 g/dL [facility] Albumin 3.6 3.5 - 5.0 g/dL [facility] Alk phos 70 40 - 130 Units/L [facility] ALT 12 7 - 55 Units/L [facility] AST 15 10 - 50 Units/L [facility] Blood 08/25/2025 4:43 PM CDT 08/25/2025 4:58 PM CDT Paige Benoit MD LAB BLOOD ORDERABLES nal Result [facility] Department [place] [address] * ECG 12-LEAD (08/25/2025 2:54 PM CDT) Narrative [facility] - 08/25/2025 2:54 PM CDT Gisel Pressley [...] ORDERABLES Fin al Result Performing Organization Address City/[facility] Co de Phone Number [facility] * (ABNORMAL) Protime-INR (08/23/2025 9:36 AM CDT) PT 20.0(H) 12.0 - 14.6 sec Comment:Testing performed by : [address] [address] INR 1.7(H) 0.9 - 1.2 [facility] Comment: Interpretive data Oral anticoagulant therapeutic ranges: Venous thromboembolism prophylaxis or treatment: 2.0-3.0 CARDIOLOGY Standard range: 2.0-3.0 High-intensity range: 2.5-3.5 Refer to indication-specific guidelines for appropriate target ranges for prosthetic heart valve replacement. Current interpretive data was last revised on 2019. Testing performed by: [address] [address] Blood 08/23/2025 9:36 AM CDT 08/23/2025 11:31 AM CDT Jerry Peguero MD LAB BLOOD ORDERABLES Final Result Performing Organization Address City/[facility] Co de Phone Number [facility] [address] [facility] Department [place] [address] * (ABNORMAL) Differential, auto (08/23/2025 9:30 AM CDT) Neutrophil abs 3.44 1.50 - 6.50 K/cumm Comment:Testing performed by : [address], [place]., [address] Imm gran abs 0.02 0.00 - 0.10 K/cumm [facility] Comment:Testing performed by : [address], [place]., [address] Lymphocyte abs 0.62(L) 0.80 - 3.30 K/cumm [facility] Comment:Testing performed by : [address], [place]., [address] Monocyte abs 0.59 0.20 - 0.80 K/cumm [facility] Comment:Testing performed by : [address], [place]., [address] Eosinophil abs 0.29 0.00 - 0.50 K/cumm [facility] Comment:Testing performed by : [address] [address] Basophil abs 0.03 0.00 - 0.10 K/cumm [facility] Comment:Testing performed by : [address] [address] Neutrophil pct 69.0 % [facility] Comment: Interpretive Data Percent cell count reference ranges are not reported, since discordance with absolute values may lead to misinterpretation of CBC data. Current Interpretive Data was last revised on 2018. Testing performed by: [address] [address] Imm gran pct 0.4 % [facility] Comment: Interpretive Data Percent cell count reference ranges are not reported, since discordance with absolute values may lead to misinterpretation of CBC data. Current Interpretive Data was last revised on 2018. Testing performed by: [address] [address] Lymphocyte pct 12.4 % [facility] Comment: Interpretive Data Percent cell count reference ranges are not reported, since discordance with absolute values may lead to misinterpretation of CBC data. Current Interpretive Data was last revised on 2018. Testing performed by: [address] [address] Monocyte pct 11.8 % [facility] Comment: Interpretive Data Percent cell count reference ranges are not reported, since discordance with absolute values may lead to misinterpretation of CBC data. Current Interpretive Data was last revised on 2018. Testing performed by: [address] [address] Eosinophil pct 5.8 % [facility] Comment: Interpretive Data Percent cell count reference ranges are not reported, since discordance with absolute values may lead to misinterpretation of CBC data. Current Interpretive Data was last revised on 2018. Testing performed by: [address] [address] Basophil pct 0.6 % [facility] Comment: Interpretive Data Percent cell count reference ranges are not reported, since discordance with absolute values may lead to misinterpretation of CBC data. Current Interpretive Data was last revised on 2018. Testing performed by: [address] [address] Blood 08/23/2025 9:30 AM CDT 08/23/2025 9:34 AM CDT us Mihaela Rod STOVE TENDER LAB BLOOD ORDERABLES Fin al Result ISAAC [address] [facility] Department of Laboratories [place], [place] [id number] * (ABNORMAL) Iron profile w/ IBC (08/23/2025 9:30 AM CDT) Iron 66 50 - 150 mcg/dL Comment:Testing performed by : [address] [address] TIBC 215(L) 250 - 400 mcg/dL ISAAC SERNA Comment:Testing performed by : [address] [address] Transferrin saturation 31 20 - 50 % ISAAC SERNA Comment:Testing performed by : [address] [address] Blood 08/23/2025 9:30 AM CDT 08/23/2025 11:31 AM CDT us Mihaela Rod STOVE TENDER LAB BLOOD ORDERABLES Fin al Result [facility] [address] [facility] Department of Laboratories [place], [place] [id number] * (ABNORMAL) CBC with auto differential (08/23/2025 9:30 AM CDT) WBC 4.99 3.80 - 9.90 K/cumm Comment:Testing performed by : [address] [address] Hgb 9.4(L) 13.0 - 17.5 g/dL ISAAC Comment:Testing performed by : [address], [address] Hct 29.7(L) 38.9 - 50.3 % ISAAC Comment:Testing performed by : [address] [address] Plt 227 150 - 400 K/cumm ISAAC Comment:Testing performed by : [address] [address] MPV 8.8(L) 9.1 - 12.3 fL ISAAC Comment:Testing performed by : [address] [address] RBC 3.19(L) 4.30 - 5.80 M/cumm ISAAC Comment:Testing performed by : [address] [address] MCV 93.1 81.3 - 96.4 fL ISAAC Comment:Testing performed by : [address] [address] MCH 29.5 27.1 - 33.3 pg ISAAC Comment:Testing performed by : [address] [address] MCHC 31.6(L) 32.3 - 35.7 g/dL ISAAC Comment:Testing performed by : [address], [address] RDW CV 17.5(H) 11.1 - 14.9 % ISAAC Comment:Testing performed by : [address] [address] RDW SD 59.7(H) 35.7 - 48.1 fL ISAAC SERNA Comment:Testing performed by : [address] [address] NRBC abs 0.00 0.00 - 0.01 K/cumm ISAAC SERNA Comment:Testing performed by : [address] [address] ANC Prelim 3.44 1.50 - 6.50 K/cumm ISAAC SERNA Comment: Interpretive Data The rapid ANC is a preliminary automated count and may vary from the final ANC (Neut Abs) reported in the WBC differential that follows. Current interpretive data was last revised 2025. Testing performed by: [address] [address] Blood 08/23/2025 9:30 AM CDT 08/23/2025 9:34 AM CDT Mihaela Rod NP LAB BLOOD ORDERABLES Fin al Result ISAAC [facility]5 [facility] Department [place] [address] * (ABNORMAL) Reticulocyte Count (08/23/2025 9:30 AM CDT) Retics, absolute 101(H) 20 - 87 K/cumm Comment:Testing performed by : [address] [address] Retics 3.2(H) 0.4 - 2.9 % ISAAC SERNA Comment:Testing performed by : [address] [address] Reticulocyte Hgb 32.2 30.5 - 38.0 pg ISAAC SERNA Comment:Testing performed by : [address] [address] Blood 08/23/2025 9:30 AM CDT 08/23/2025 9:34 AM CDT Mihaela Rod STOVE TENDER LAB BLOOD ORDERABLES Fin al Result [address] [address] * Ferritin (08/23/2025 9:30 AM CDT) Pathologist [facility] Ferritin 315 30 - 400 ng/mL Comment:Testing performed by : [address] [address] Blood 08/23/2025 9:30 AM CDT 08/23/2025 11:31 AM CDT Mihaela Rod STOVE TENDER LAB BLOOD ORDERABLES Fin al Result Performing Organization Address [facility] Co de Phone Number [address] [address] * Differential, auto (08/09/2025 11:31 AM CDT) Pathologist [facility] Neutrophil abs 3.58 1.50 - 6.50 K/cumm Comment:Testing performed by : [address] [address] Imm gran abs 0.03 0.00 - 0.10 K/cumm ISAAC Comment:Testing performed by : [address] [address] Lymphocyte abs 0.90 0.80 - 3.30 K/cumm ISAAC Comment:Testing performed by : [address] [address] Monocyte abs 0.70 0.20 - 0.80 K/cumm ISAAC Comment:Testing performed by : [address] [address] Eosinophil abs 0.29 0.00 - 0.50 K/cumm ISAAC Comment:Testing performed by : [address] [address] Basophil abs 0.03 0.00 - 0.10 K/cumm ISAAC Comment:Testing performed by : [address] [address] Neutrophil pct 64.8 % CERNER Comment: Interpretive Data Percent cell count reference ranges are not reported, since discordance with absolute values may lead to misinterpretation of CBC data. Current Interpretive Data was last revised on 2018. Testing performed by: [address] [address] Imm gran pct 0.5 % [facility] Comment: Interpretive Data Percent cell count reference ranges are not reported, since discordance with absolute values may lead to misinterpretation of CBC data. Current Interpretive Data was last revised on 2018. Testing performed by: [address] [address] Lymphocyte pct 16.3 % [facility] Comment: Interpretive Data Percent cell count reference ranges are not reported, since discordance with absolute values may lead to misinterpretation of CBC data. Current Interpretive Data was last revised on 2018. Testing performed by: [address] [address] Monocyte pct 12.7 % [facility] Comment: Interpretive Data Percent cell count reference ranges are not reported, since discordance with absolute values may lead to misinterpretation of CBC data. Current Interpretive Data was last revised on 2018. Testing performed by: [address] [address] Eosinophil pct 5.2 % CERNER Comment: Interpretive Data Percent cell count reference ranges are not reported, since discordance with absolute values may lead to misinterpretation of CBC data. Current Interpretive Data was last revised on 2018. Testing performed by: [address] [address] Basophil pct 0.5 % [facility] Comment: Interpretive Data Percent cell count reference ranges are not reported, since discordance with absolute values may lead to misinterpretation of CBC data. Current Interpretive Data was last revised on 2018. Testing performed by: [address] [address] Blood 08/09/2025 11:3 1 AM CDT 08/09/2025 11:38 AM CDT us Mihaela Rod STOVE TENDER LAB BLOOD ORDERABLES Fin al Result ISAAC [facility] [place] [address] * (ABNORMAL) Iron profile w/ IBC (08/09/2025 11:31 AM CDT) Pathologist [facility] Iron 50 50 - 150 mcg/dL Comment:Testing performed by : [address] [address] TIBC 237(L) 250 - 400 mcg/dL ISAAC Comment:Testing performed by : [address] [address] Transferrin saturation 21 20 - 50 % ISAAC SERNA Comment:Testing performed by : [address] [address] Blood 08/09/2025 11:3 1 AM CDT 08/09/2025 1:44 PM CDT us Mihaela Rod STOVE TENDER LAB BLOOD ORDERABLES Fin al Result ISAAC [facility] [employer] [place] [address] * (ABNORMAL) CBC with auto differential (08/09/2025 11:31 AM CDT) Pathologist [facility] WBC 5.53 3.80 - 9.90 K/cumm Comment:Testing performed by : [address] [address] Hgb 9.5(L) 13.0 - 17.5 g/dL ISAAC Comment:Testing performed by : [address] [address] Hct 30.3(L) 38.9 - 50.3 % ISAAC SERNA Comment:Testing performed by : [address] [address] Plt 227 150 - 400 K/cumm ISAAC SERNA Comment:Testing performed by : [address] [address] MPV 8.7(L) 9.1 - 12.3 fL ISAAC Comment:Testing performed by : [address] [address] RBC 3.30(L) 4.30 - 5.80 M/cumm ISAAC Comment:Testing performed by : [address] [address] MCV 91.8 81.3 - 96.4 fL ISAAC Comment:Testing performed by : [address] [address] MCH 28.8 27.1 - 33.3 pg ISAAC Comment:Testing performed by : [address] [address] MCHC 31.4(L) 32.3 - 35.7 g/dL ISAAC Comment:Testing performed by : [address] [address] RDW CV 16.0(H) 11.1 - 14.9 % ISAAC Comment:Testing performed by : [address] [address] RDW SD 53.5(H) 35.7 - 48.1 fL ISAAC Comment:Testing performed by : [address] [address] NRBC abs 0.00 0.00 - 0.01 K/cumm ISAAC Comment:Testing performed by : [address] [address] ANC Prelim 3.58 1.50 - 6.50 K/cumm ISAAC Comment: Interpretive Data The rapid ANC is a preliminary automated count and may vary from the final ANC (Neut Abs) reported in the WBC differential that follows. Current interpretive data was last revised 2025. Testing performed by: [address] [address] Blood 08/09/2025 11:3 1 AM CDT 08/09/2025 11:38 AM CDT us Mihaela Rod STOVE TENDER LAB BLOOD ORDERABLES Fin al Result Performing Organization Address City/[facility] Co de Phone Number [address] [place] [address] * Reticulocyte Count (08/09/2025 11:31 AM CDT) Pathologist [facility] Retics, absolute 73 20 - 87 K/cumm Comment:Testing performed by : [address] [address] Retics 2.2 0.4 - 2.9 % ISAAC Comment:Testing performed by : [facility], [address] [place] [address]., [address] Reticulocyte Hgb 31.1 30.5 - 38.0 pg ISAAC Comment:Testing performed by : [address] [address] Blood 08/09/2025 11:3 1 AM CDT 08/09/2025 11:38 AM CDT Mihaela Rod STOVE TENDER LAB BLOOD ORDERABLES Fin al Result Performing Organization Address [facility] Co de Phone Number [address] [place] [address] * Ferritin (08/09/2025 11:31 AM CDT) [facility] Ferritin 47 30 - 400 ng/mL Comment:Testing performed by : [address] [address] Blood 08/09/2025 11:3 1 AM CDT 08/09/2025 1:44 PM CDT Mihaela Rod STOVE TENDER LAB BLOOD ORDERABLES Fin al Result Performing Organization Address City/State/[facility] Co de Phone Number [address] [place] [address] * (ABNORMAL) Differential, auto (07/26/2025 11:00 AM CDT) [facility] Neutrophil abs 2.32 1.50 - 6.50 K/cumm Comment:Testing performed by : [address], [place]., [address] Imm gran abs 0.02 0.00 - 0.10 K/cumm ISAAC Comment:Testing performed by : [facility], [address] [place] [address], [place]., [address] Lymphocyte abs 0.58(L) 0.80 - 3.30 K/cumm [facility] Comment:Testing performed by : [address], [place]., [address] Monocyte abs 0.53 0.20 - 0.80 K/cumm [facility] Comment:Testing performed by : [address], [place]., [address] Eosinophil abs 0.24 0.00 - 0.50 K/cumm [facility] Comment:Testing performed by : [address], [place]., [address] Basophil abs 0.03 0.00 - 0.10 K/cumm [facility] Comment:Testing performed by : [address] [address] Neutrophil pct 62.4 % [facility] Comment: Interpretive Data Percent cell count reference ranges are not reported, since discordance with absolute values may lead to misinterpretation of CBC data. Current Interpretive Data was last revised on 2018. Testing performed by: [address] [address] Imm gran pct 0.5 % [facility] Comment: Interpretive Data Percent cell count reference ranges are not reported, since discordance with absolute values may lead to misinterpretation of CBC data. Current Interpretive Data was last revised on 2018. Testing performed by: [address] [address] Lymphocyte pct 15.6 % CERNER Comment: Interpretive Data Percent cell count reference ranges are not reported, since discordance with absolute values may lead to misinterpretation of CBC data. Current Interpretive Data was last revised on 2018. Testing performed by: [address] [address] Monocyte pct 14.2 % CERNER Comment: Interpretive Data Percent cell count reference ranges are not reported, since discordance with absolute values may lead to misinterpretation of CBC data. Current Interpretive Data was last revised on 2018. Testing performed by: [address] [address] Eosinophil pct 6.5 % ISAAC Comment: Interpretive Data Percent cell count reference ranges are not reported, since discordance with absolute values may lead to misinterpretation of CBC data. Current Interpretive Data was last revised on 2018. Testing performed by: [address] [address] Basophil pct 0.8 % ISAAC Comment: Interpretive Data Percent cell count reference ranges are not reported, since discordance with absolute values may lead to misinterpretation of CBC data. Current Interpretive Data was last revised on 2018. Testing performed by: [address] [address] Blood 07/26/2025 11:0 0 AM CDT 07/26/2025 11:02 AM CDT us Nena Cano STOVE TENDER LAB BLOOD ORDERABLES Final Result [facility] [address] [facility] Department [place] [address] * (ABNORMAL) CBC with auto differential (07/26/2025 11:00 AM CDT) WBC 3.72(L) 3.80 - 9.90 K/cumm Comment:Testing performed by : [address] [address] Hgb 9.7(L) 13.0 - 17.5 g/dL ISAAC Comment:Testing performed by : [address] [address] Hct 31.2(L) 38.9 - 50.3 % ISAAC Comment:Testing performed by : [address] [address] Plt 201 150 - 400 K/cumm ISAAC Comment:Testing performed by : [address] [address] MPV 8.6(L) 9.1 - 12.3 fL ISAAC Comment:Testing performed by : [address] [address] RBC 3.31(L) 4.30 - 5.80 M/cumm ISAAC Comment:Testing performed by : [address] [address] MCV 94.3 81.3 - 96.4 fL ISAAC Comment:Testing performed by : [address] [address] MCH 29.3 27.1 - 33.3 pg ISAAC Comment:Testing performed by : [address], [address] MCHC 31.1(L) 32.3 - 35.7 g/dL ISAAC Comment:Testing performed by : [address] [address] RDW CV 15.9(H) 11.1 - 14.9 % ISAAC Comment:Testing performed by : [address], [address] RDW SD 54.7(H) 35.7 - 48.1 fL ISAAC Comment:Testing performed by : [address] [address] NRBC abs 0.00 0.00 - 0.01 K/cumm ISAAC Comment:Testing performed by : [address], [address] ANC Prelim 2.32 1.50 - 6.50 K/cumm ISAAC Comment: Interpretive Data The rapid ANC is a preliminary automated count and may vary from the final ANC (Neut Abs) reported in the WBC differential that follows. Current interpretive data was last revised 2025. Testing performed by: [address], [address] Blood 07/26/2025 11:0 0 AM CDT 07/26/2025 11:02 AM CDT us Nena Cano STOVE TENDER LAB BLOOD ORDERABLES Final Result Performing Organization Address [facility] Co de Phone Number ISAAC [address] [place] [address] * (ABNORMAL) Reticulocyte Count (07/26/2025 11:00 AM CDT) Pathologist [facility] Retics, absolute 73 20 - 87 K/cumm Comment:Testing performed by : [address] [address] Retics 2.2 0.4 - 2.9 % ISAAC Comment:Testing performed by : [facility], [address] [place] [address]., [address] Reticulocyte Hgb 28.6(L) 30.5 - 38.0 pg ISAAC Comment:Testing performed by : [address] [address] Blood 07/26/2025 11:0 0 AM CDT 07/26/2025 11:02 AM CDT Nena Cano STOVE TENDER LAB BLOOD ORDERABLES Final Result Performing Organization Address [facility] Co de Phone Number DAYANA[address] [address] * Ferritin (07/26/2025 11:00 AM CDT) [facility] Ferritin 49 30 - 400 ng/mL Comment:Testing performed by : [address] [address] Blood 07/26/2025 11:0 0 AM CDT 07/26/2025 11:44 AM CDT Nena Cano STOVE TENDER LAB BLOOD ORDERABLES Final Result Performing Organization Address City/[facility] Co de Phone Number DAYANA[address] [place] [address] * EGD (07/21/2025 10:36 AM CDT) Anatomical Region Laterality Modality Other Narrative Procedure Note Jerry Peguero MD - 07/21/2025 10:36 AM CDT [facility] Patient Name: Marshall Olson Procedure Date: 07/21/2025 10:36 AM Date of : 1950 Admit Type: Outpatient Age: 75 Gender: Male Attending MD: Jerry Peguero M.D., Room: [facility] ENDOSCOPY ROOM 1 Note Status: Finalized [...] passed under direct vision. The GIF [id number] endoscope was introduced through the mouth, and [...] sec INR 1.28(H) 0.90 - 1.20 ISAAC [facility] Comment: Interpretive data Oral anticoagulant therapeutic ranges: Venous thromboembolism prophylaxis or treatment: 2.0-3.0 CARDIOLOGY Standard range: 2.0-3.0 High-intensity range: 2.5-3.5 Refer to indication-specific guidelines for appropriate target ranges for prosthetic heart valve replacement. Current interpretive data was last revised on 2019. Blood 07/21/2025 8:42 AM CDT 07/21/2025 8:49 AM CDT Jerry Peguero MD LAB BLOOD ORDERABLES Final Result ISAAC [facility] Department [place] [address] * (ABNORMAL) eGFR (07/20/2025 9:59 AM CDT) [...] last reviewed 2021. Testing performed by: [address] [address] Blood 07/20/2025 9:59 AM CDT 07/20/2025 10:10 AM CDT Francisco Jones DO LAB BLOOD ORDERABLES Final R esult ISAAC [address] [facility] Department [place] [address] * (ABNORMAL) Differential, auto (07/20/2025 9:59 AM CDT) Neutrophil abs 2.59 1.50 - 6.50 K/cumm Comment:Testing performed by : [address] [address] Imm gran abs 0.02 0.00 - 0.10 K/cumm ISAAC SERNA Comment:Testing performed by : [address], [place]., [address] Lymphocyte abs 0.68(L) 0.80 - 3.30 K/cumm ISAAC Comment:Testing performed by : [address], [place]., [address] Monocyte abs 0.56 0.20 - 0.80 K/cumm ISAAC Comment:Testing performed by : [address], [place]., [address] Eosinophil abs 0.27 0.00 - 0.50 K/cumm ISAAC Comment:Testing performed by : [address], [place]., [address] Basophil abs 0.03 0.00 - 0.10 K/cumm ISAAC Comment:Testing performed by : [address] [address] Neutrophil pct 62.4 % [facility] Comment: Interpretive Data Percent cell count reference ranges are not reported, since discordance with absolute values may lead to misinterpretation of CBC data. Current Interpretive Data was last revised on 2018. Testing performed by: [address] [address] Imm gran pct 0.5 % [facility] Comment: Interpretive Data Percent cell count reference ranges are not reported, since discordance with absolute values may lead to misinterpretation of CBC data. Current Interpretive Data was last revised on 2018. Testing performed by: [address] [address] Lymphocyte pct 16.4 % [facility] Comment: Interpretive Data Percent cell count reference ranges are not reported, since discordance with absolute values may lead to misinterpretation of CBC data. Current Interpretive Data was last revised on 2018. Testing performed by: [address] [address] Monocyte pct 13.5 % [facility] Comment: Interpretive Data Percent cell count reference ranges are not reported, since discordance with absolute values may lead to misinterpretation of CBC data. Current Interpretive Data was last revised on 2018. Testing performed by: [address] [address] Eosinophil pct 6.5 % ISAAC Comment: Interpretive Data Percent cell count reference ranges are not reported, since discordance with absolute values may lead to misinterpretation of CBC data. Current Interpretive Data was last revised on 2018. Testing performed by: [address] [address] Basophil pct 0.7 % ISAAC Comment: Interpretive Data Percent cell count reference ranges are not reported, since discordance with absolute values may lead to misinterpretation of CBC data. Current Interpretive Data was last revised on 2018. Testing performed by: [address] [address] Blood 07/20/2025 9:59 AM CDT 07/20/2025 10:10 AM CDT Nena Cano STOVE TENDER LAB BLOOD ORDERABLES Final Result Performing Organization Address [facility] Co de Phone Number [address] [employer] [place] [address] * (ABNORMAL) Iron profile w/ IBC (07/20/2025 9:59 AM CDT) Iron 52 50 - 150 mcg/dL Comment:Testing performed by : [address] [address] TIBC 221(L) 250 - 400 mcg/dL ISAAC Comment:Testing performed by : [address] [address] Transferrin saturation 24 20 - 50 % ISAAC Comment:Testing performed by : [address] [address] Blood 07/20/2025 9:59 AM CDT 07/20/2025 11:36 AM CDT Nena Cano STOVE TENDER LAB BLOOD ORDERABLES Final Result Performing Organization Address [facility] Co de Phone Number [place] [phone] [facility] [place] [address] * (ABNORMAL) CBC with auto differential (07/20/2025 9:59 AM CDT) [facility] WBC 4.15 3.80 - 9.90 K/cumm Comment:Testing performed by : [address] [address] Hgb 9.7(L) 13.0 - 17.5 g/dL ISAAC Comment:Testing performed by : [address] [address] Hct 31.0(L) 38.9 - 50.3 % ISAAC Comment:Testing performed by : [address], [address] Plt 220 150 - 400 K/cumm ISAAC Comment:Testing performed by : [address] [address] MPV 8.7(L) 9.1 - 12.3 fL ISAAC Comment:Testing performed by : [address], [address] RBC 3.28(L) 4.30 - 5.80 M/cumm ISAAC Comment:Testing performed by : [address], [address] MCV 94.5 81.3 - 96.4 fL ISAAC Comment:Testing performed by : [address] [address] MCH 29.6 27.1 - 33.3 pg ISAAC Comment:Testing performed by : [address], [address] MCHC 31.3(L) 32.3 - 35.7 g/dL ISAAC Comment:Testing performed by : [address], [address] RDW CV 15.8(H) 11.1 - 14.9 % ISAAC Comment:Testing performed by : [address], [address] RDW SD 54.4(H) 35.7 - 48.1 fL ISAAC Comment:Testing performed by : [address], [address] NRBC abs 0.00 0.00 - 0.01 K/cumm ISAAC Comment:Testing performed by : [address] [address] ANC Prelim 2.59 1.50 - 6.50 K/cumm ISAAC Comment: Interpretive Data The rapid ANC is a preliminary automated count and may vary from the final ANC (Neut Abs) reported in the WBC differential that follows. Current interpretive data was last revised 2025. Testing performed by: [address] [address] Blood 07/20/2025 9:59 AM CDT 07/20/2025 10:10 AM CDT Nena Cano LAB BLOOD ORDERABLES Final Result Performing Organization Address [facility] de Phone Number [address] [place] [employer] [place] [address] * (ABNORMAL) Reticulocyte Count (07/20/2025 9:59 AM CDT) Retics, absolute 66 20 - 87 K/cumm Comment:Testing performed by : [address] [address] Retics 2.0 0.4 - 2.9 % ISAAC Comment:Testing performed by : [address] [address] Reticulocyte Hgb 30.0(L) 30.5 - 38.0 pg ISAAC Comment:Testing performed by : [address] [address] Blood 07/20/2025 9:59 AM CDT 07/20/2025 10:10 AM CDT Nena Cano LAB BLOOD ORDERABLES Final Result Performing Organization Address [facility] de Phone Number [address] [place] [address] * Ferritin (07/20/2025 9:59 AM CDT) Ferritin 59 30 - 400 ng/mL Comment:Testing performed by : [address] [address] Blood 07/20/2025 9:59 AM CDT 07/20/2025 11:36 AM CDT Nena Cano STOVE TENDER LAB BLOOD ORDERABLES Final Result [facility] [address] [facility] Department [place] [address] * (ABNORMAL) Comprehensive metabolic panel (07/20/2025 9:59 AM CDT) Pathologist [facility] Sodium 140 135 - 145 mmol/L Comment:Testing performed by : [address] [address] Potassium, pl 4.4 3.3 - 4.9 mmol/L ISAAC Comment:Testing performed by : [address] [address] Chloride 109 97 - 110 mmol/L ISAAC Comment:Testing performed by : [address] [address] CO2 21(L) 22 - 32 mmol/L ISAAC Comment:Testing performed by : [address] [address] Anion gap 10 2 - 15 mmol/L ISAAC Comment:Testing performed by : [address] [address] BUN 18 6 - 25 mg/dL IS[facility]AC Comment:Testing performed by : [address] [address] Creatinine 1.60(H) 0.80 - 1.30 mg/dL ISAAC Comment:Testing performed by : [address] [address] Glucose 96 70 - 199 mg/dL ISAAC [...] last revised 2022. Testing performed by: [address] [address] Calcium 9.1 8.5 - 10.3 mg/dL ISAAC Comment:Testing performed by : [address] [address] Bilirubin, total 0.3 0.1 - 1.2 mg/dL [facility]AAC Comment:Testing performed by : [address] [address] Protein, pl 6.5 6.5 - 8.5 g/dL [facility]AC Comment:Testing performed by : [address] [address] Albumin 3.7 3.5 - 5.0 g/dL [facility]AC Comment:Testing performed by : [address] [address] Alk phos 67 40 - 130 Units/L ISAAC Comment:Testing performed by : [address] [address] ALT 9 7 - 55 Units/L ISAAC Comment:Testing performed by : [address] [address] AST 14 10 - 50 Units/L ISAAC Comment:Testing performed by : [address] [address] Blood 07/20/2025 9:59 AM CDT 07/20/2025 10:10 AM CDT us Francisco Jones DO LAB BLOOD ORDERABLES Final R esult [facility]AC [address]4 [facility] Department of Laboratories [place], [place] [id number] * PET/CT FDG Skull to Thigh (07/13/2025 [...] Serg Hussein M.D. LB: [facility] Report ID: [id number] Reading Location: [id number] Procedure Note Serg Hussein MD - 07/13/2025 [...] Serg Hussein M.D. LB: [place] Report ID: [id number] Reading Location: [id number] Francisco Jones DO IMG PET PROCEDURES Final Res ult * POCT glucose (07/13/2025 9:48 AM CDT) [facility] Signature Glucose, POC 101 70 - 199 mg/dL Comment:Testing performed by : [facility], [address] [place] [address], [place]., [address] Blood 07/13/2025 9:48 AM CDT 07/13/2025 9:48 AM CDT Bianca Hunter MD LAB POCT ORDERABLES - DEVICE Final Result [facility] [address] [facility] Department [place] [address] * (ABNORMAL) Differential, auto (07/13/2025 9:30 AM CDT) Neutrophil abs 3.00 1.50 - 6.50 K/cumm Comment:Testing performed by : [address] [address] Imm gran abs 0.02 0.00 - 0.10 K/cumm ISAAC Comment:Testing performed by : [address] [address] Lymphocyte abs 0.59(L) 0.80 - 3.30 K/cumm [facility]AAC Comment:Testing performed by : [address] [address] Monocyte abs 0.49 0.20 - 0.80 K/cumm [facility]AC Comment:Testing performed by : [address] [address] Eosinophil abs 0.23 0.00 - 0.50 K/cumm [facility]AC Comment:Testing performed by : [address] [address] Basophil abs 0.04 0.00 - 0.10 K/cumm [facility]AC Comment:Testing performed by : [address] [address] Neutrophil pct 68.6 % [facility]AC Comment: Interpretive Data Percent cell count reference ranges are not reported, since discordance with absolute values may lead to misinterpretation of CBC data. Current Interpretive Data was last revised on 2018. Testing performed by: [address] [address] Imm gran pct 0.5 % [facility]AC Comment: Interpretive Data Percent cell count reference ranges are not reported, since discordance with absolute values may lead to misinterpretation of CBC data. Current Interpretive Data was last revised on 2018. Testing performed by: [address] [address] Lymphocyte pct 13.5 % [facility] Comment: Interpretive Data Percent cell count reference ranges are not reported, since discordance with absolute values may lead to misinterpretation of CBC data. Current Interpretive Data was last revised on 2018. Testing performed by: [address] [address] Monocyte pct 11.2 % [facility]AC Comment: Interpretive Data Percent cell count reference ranges are not reported, since discordance with absolute values may lead to misinterpretation of CBC data. Current Interpretive Data was last revised on 2018. Testing performed by: [address] [address] Eosinophil pct 5.3 % [facility] Comment: Interpretive Data Percent cell count reference ranges are not reported, since discordance with absolute values may lead to misinterpretation of CBC data. Current Interpretive Data was last revised on 2018. Testing performed by: [address] [address] Basophil pct 0.9 % [facility] Comment: Interpretive Data Percent cell count reference ranges are not reported, since discordance with absolute values may lead to misinterpretation of CBC data. Current Interpretive Data was last revised on 2018. Testing performed by: [address] [address] Blood 07/13/2025 9:30 AM CDT 07/13/2025 9:34 AM CDT Nena Cano STOVE TENDER LAB BLOOD ORDERABLES Final Result [facility] [address] [facility] Department [place] [address] * (ABNORMAL) Iron profile w/ IBC (07/13/2025 9:30 AM CDT) Iron 37(L) 50 - 150 mcg/dL Comment:Testing performed by : [address] [address] TIBC 205(L) 250 - 400 mcg/dL [facility] Comment:Testing performed by : [address] [address] Transferrin saturation 18(L) 20 - 50 % [facility] Comment:Testing performed by : [address] [address] Blood 07/13/2025 9:30 AM CDT 07/13/2025 11:36 AM CDT Nena Cano STOVE TENDER LAB BLOOD ORDERABLES Final Result [facility] 45[address] [facility] Department [place] [address] * (ABNORMAL) CBC with auto differential (07/13/2025 9:30 AM CDT) WBC 4.37 3.80 - 9.90 K/cumm Comment:Testing performed by : [address] [address] Hgb 9.6(L) 13.0 - 17.5 g/dL [facility] Comment:Testing performed by : [address] [address] Hct 30.5(L) 38.9 - 50.3 % [facility] Comment:Testing performed by : [address] [address] Plt 185 150 - 400 K/cumm IS[facility] Comment:Testing performed by : [address] [address] MPV 8.6(L) 9.1 - 12.3 fL [facility] Comment:Testing performed by : [address] [address] RBC 3.20(L) 4.30 - 5.80 M/cumm IS[facility]AC Comment:Testing performed by : [address] [address] MCV 95.3 81.3 - 96.4 fL [facility] Comment:Testing performed by : [address] [address] MCH 30.0 27.1 - 33.3 pg [facility] Comment:Testing performed by : [address] [address] MCHC 31.5(L) 32.3 - 35.7 g/dL [facility] SERNA Comment:Testing performed by : [address] [address] RDW CV 15.8(H) 11.1 - 14.9 % [facility] Comment:Testing performed by : [address] [address] RDW SD 55.8(H) 35.7 - 48.1 fL [facility] Comment:Testing performed by : [address] [address] NRBC abs 0.00 0.00 - 0.01 K/cumm [facility]AC Comment:Testing performed by : [address] [address] ANC Prelim 3.00 1.50 - 6.50 K/cumm [facility] Comment: Interpretive Data The rapid ANC is a preliminary automated count and may vary from the final ANC (Neut Abs) reported in the WBC differential that follows. Current interpretive data was last revised 2025. Testing performed by: [address] [address] Blood 07/13/2025 9:30 AM CDT 07/13/2025 9:34 AM CDT Nena Cano NP LAB BLOOD ORDERABLES Final Result [facility] [address] [facility] Department of Laboratories [place], [place] [id number] * (ABNORMAL) Reticulocyte Count (07/13/2025 9:30 AM CDT) Retics, absolute 51 20 - 87 K/cumm Comment:Testing performed by : [address] [address] Retics 1.6 0.4 - 2.9 % [facility]AC Comment:Testing performed by : [address] [address] Reticulocyte Hgb 28.7(L) 30.5 - 38.0 pg [facility] Comment:Testing performed by : [facility], [address] [place] [address]., [address] Blood 07/13/2025 9:30 AM CDT 07/13/2025 9:34 AM CDT Nena Cano STOVE TENDER LAB BLOOD ORDERABLES Final Result Performing Organization Address City/[facility] Co de Phone Number DAYANA[address] [place] [address] * Ferritin (07/13/2025 9:30 AM CDT) [facility] Ferritin 90 30 - 400 ng/mL Comment:Testing performed by : [facility], [address] [place] [address]., [address] Blood 07/13/2025 9:30 AM CDT 07/13/2025 11:36 AM CDT Nena Cano STOVE TENDER LAB BLOOD ORDERABLES Final Result Performing Organization Address City/[facility] de Phone Number DAYANA[address] [place] [address] * EGD (06/28/2025 1:10 PM CDT) Anatomical Region Laterality Modality Other Narrative Procedure Note Jerry Peguero MD - 06/28/2025 1:10 PM CDT ENDOSCOPY LAB Patient Name: Marshall Olson Procedure Date: 06/28/2025 1:10 PM Admit Type: Outpatient Room: [facility] Date of : 1950 Instrument Name: IRENA Gender: Male Note Status: Finalized Procedure: Upper [...] 06/28/2025 1:10 PM Scope In: Scope Out: Jerry Peguero MD ENDOSCOPY PROCEDURES Final Result * (ABNORMAL) Protime-INR (06/28/2025 12:16 PM CDT) PT 16.0(H) 10.2 - 13.5 sec INR 1.43(H) 0.90 - 1.20 [facility] Comment: Interpretive data Oral anticoagulant therapeutic ranges: Venous thromboembolism prophylaxis or treatment: 2.0-3.0 CARDIOLOGY Standard range: 2.0-3.0 High-intensity range: 2.5-3.5 Refer to indication-specific guidelines for appropriate target ranges for prosthetic heart valve replacement. Current interpretive data was last revised on 2019. Blood 06/28/2025 12:1 6 PM CDT 06/28/2025 12:50 PM CDT Jerry Peguero MD LAB BLOOD ORDERABLES Final Result [facility] [address] Department [place] [address] * (ABNORMAL) Protime-INR (06/19/2025 9:16 AM CDT) PT 14.5(H) 10.2 - 13.5 sec INR 1.29(H) 0.90 - 1.20 [facility] Comment: Interpretive data Oral anticoagulant therapeutic ranges: Venous thromboembolism prophylaxis or treatment: 2.0-3.0 CARDIOLOGY Standard range: 2.0-3.0 High-intensity range: 2.5-3.5 Refer to indication-specific guidelines for appropriate target ranges for prosthetic heart valve replacement. Current interpretive data was last revised on 2019. Blood 06/19/2025 9:16 AM CDT 06/19/2025 9:21 AM CDT us Jacobo Horne MD LAB BLOOD ORDERABLES Final Re sult CERNER [facility] Department [place] [address] * EGD (06/19/2025 8:58 AM CDT) Anatomical Region Laterality Modality Other Narrative Procedure Note Jerry Peguero MD - 06/19/2025 8:58 AM CDT [facility] ENDOSCOPY [facility] Patient Name: Marshall Olson Procedure Date: 06/19/2025 8:58 AM Date of : 1950 Admit Type: Outpatient Age: 75 Gender: Male Attending MD: Jerry Peguero M.D., Room: [facility] ENDOSCOPY ROOM 2 Note Status: Finalized [...] passed under direct vision. The GIF [id number] endoscope was introducedthrough the mouth, and advanced [...] Divina, indirect Negative ABO Rh A Positive [facility] Blood 06/19/2025 7:52 AM CDT 06/19/2025 8:44 AM CDT Narrative [facility] - 06/19/2025 10:03 AM CDT Has the patient had Daratumumab or Isatuximab in the past 6 months?->Unknown Mihaela Rod NP LAB BLOOD BANK TEST DARIEL ELLINGTON Final Result [facility] Department [place] [address] * Differential, auto (06/19/2025 7:51 AM CDT) Neutrophil abs 2.78 1.50 - 6.50 K/cumm Imm gran abs 0.08 0.00 - 0.10 K/cumm [facility] Lymphocyte abs 0.92 0.80 - 3.30 K/cumm [facility] Monocyte abs 0.74 0.20 - 0.80 K/cumm [facility] Eosinophil abs 0.23 0.00 - 0.50 K/cumm [facility] Basophil abs 0.04 0.00 - 0.10 K/cumm [facility] Neutrophil pct 58.1 % [facility] Comment: Interpretive Data Percent cell count reference ranges are not reported, since discordance with absolute values may lead to misinterpretation of CBC data. Current Interpretive Data was last revised on 2018. Imm gran pct 1.7 % [facility] Comment: Interpretive Data Percent cell count reference ranges are not reported, since discordance with absolute values may lead to misinterpretation of CBC data. Current Interpretive Data was last revised on 2018. Lymphocyte pct 19.2 % [facility] Comment: Interpretive Data Percent cell count reference ranges are not reported, since discordance with absolute values may lead to misinterpretation of CBC data. Current Interpretive Data was last revised on 2018. Monocyte pct 15.4 % [facility] Comment: Interpretive Data Percent cell count reference ranges are not reported, since discordance with absolute values may lead to misinterpretation of CBC data. Current Interpretive Data was last revised on 2018. Eosinophil pct 4.8 % [facility] Comment: Interpretive Data Percent cell count reference ranges are not reported, since discordance with absolute values may lead to misinterpretation of CBC data. Current Interpretive Data was last revised on 2018. Basophil pct 0.8 % [facility] Comment: Interpretive Data Percent cell count reference ranges are not reported, since discordance with absolute values may lead to misinterpretation of CBC data. Current Interpretive Data was last revised on 2018. Blood 06/19/2025 7:51 AM CDT 06/19/2025 8:28 AM CDT us Mihaela Rod NP LAB BLOOD ORDERABLES Fin al Result [facility]AC [facility] Department [place] [address] * Iron profile w/ IBC (06/19/2025 7:51 AM CDT) Iron 115 50 - 150 mcg/dL TIBC 298 250 - 400 mcg/dL [facility] Transferrin saturation 39 20 - 50 % [facility] Blood 06/19/2025 7:51 AM CDT 06/19/2025 8:28 AM CDT Mihaela Rod STOVE TENDER LAB BLOOD ORDERABLES Fin al Result Performing Organization Address [facility] Co de Phone Number [facility] [place] [address] * (ABNORMAL) CBC with auto differential (06/19/2025 7:51 AM CDT) [facility] WBC 4.79 3.80 - 9.90 K/cumm Hgb 9.0(L) 13.0 - 17.5 g/dL [facility] Hct 29.6(L) 38.9 - 50.3 % [facility] Plt 254 150 - 400 K/cumm [facility] MPV 8.8(L) 9.1 - 12.[address] [facility] RBC 2.98(L) 4.30 - 5.80 M/cumm [facility] MCV 99.3(H) 81.3 - 96.[address] [facility] MCH 30.2 27.1 - 33.[address] [facility] MCHC 30.4(L) 32.3 - 35.7 g/dL [facility] RDW CV 16.8(H) 11.1 - 14.9 % [facility] RDW SD 57.8(H) 35.7 - 48.[address] [facility] NRBC abs 0.00 0.00 - 0.01 K/cumm [facility] Blood 06/19/2025 7:51 AM CDT 06/19/2025 8:28 AM CDT Mihaela Rod STOVE TENDER LAB BLOOD ORDERABLES Fin al Result Performing Organization Address City/[facility]/ZIP Co de Phone Number [facility] [place] [address] * (ABNORMAL) Reticulocyte Count (06/19/2025 7:51 AM CDT) [facility] Retics, absolute 168(H) 20 - 87 K/cumm Retics 5.6(H) 0.4 - 2.9 % [facility] Reticulocyte Hgb 35.0 30.5 - 38.[address] [facility] Blood 06/19/2025 7:51 AM CDT 06/19/2025 8:28 AM CDT Mihaela Rod STOVE TENDER LAB BLOOD ORDERABLES Fin al Result [facility] Department [place] [address] * (ABNORMAL) Ferritin (06/19/2025 7:51 AM CDT) [facility] Ferritin 423(H) 30 - 400 ng/mL Blood 06/19/2025 7:51 AM CDT 06/19/2025 8:28 AM CDT Mihaela Rod STOVE TENDER LAB BLOOD ORDERABLES Fin al Result Performing Organization Address City/[facility]/ZIP Co de Phone Number [facility] [place] [address] * (ABNORMAL) eGFR (06/14/2025 10:05 AM CDT) [facility] eGFR 45(L) >=60 mL/min/1. 73 m2 Comment: [...] last reviewed 2021. Testing performed by: [address] [address] Blood 06/14/2025 10:0 5 AM CDT 06/14/2025 10:06 AM CDT us Nena Cano STOVE T[employer]ER LAB BLOOD ORDERABLES Final Result [facility] Department [place] [address] * (ABNORMAL) Differential, auto (06/14/2025 10:05 AM CDT) Neutrophil abs 2.53 1.50 - 6.50 K/cumm Comment:Testing performed by : [address] [address] Imm gran abs 0.02 0.00 - 0.10 K/cumm [facility]AC Comment:Testing performed by : [address] [address] Lymphocyte abs 0.60(L) 0.80 - 3.30 K/cumm [facility] Comment:Testing performed by : [address] [address] Monocyte abs 0.61 0.20 - 0.80 K/cumm [facility] Comment:Testing performed by : [address] [address] Eosinophil abs 0.21 0.00 - 0.50 K/cumm [facility] Comment:Testing performed by : [address] [address] Basophil abs 0.03 0.00 - 0.10 K/cumm [facility] Comment:Testing performed by : [address] [address] Neutrophil pct 63.1 % [facility] Comment: Interpretive Data Percent cell count reference ranges are not reported, since discordance with absolute values may lead to misinterpretation of CBC data. Current Interpretive Data was last revised on 2018. Testing performed by: [address] [address] Imm gran pct 0.5 % [facility] Comment: Interpretive Data Percent cell count reference ranges are not reported, since discordance with absolute values may lead to misinterpretation of CBC data. Current Interpretive Data was last revised on 2018. Testing performed by: [address] [address] Lymphocyte pct 15.0 % [facility] Comment: Interpretive Data Percent cell count reference ranges are not reported, since discordance with absolute values may lead to misinterpretation of CBC data. Current Interpretive Data was last revised on 2018. Testing performed by: [address] [address] Monocyte pct 15.3 % [facility] Comment: Interpretive Data Percent cell count reference ranges are not reported, since discordance with absolute values may lead to misinterpretation of CBC data. Current Interpretive Data was last revised on 2018. Testing performed by: [address] [address] Eosinophil pct 5.3 % [facility] Comment: Interpretive Data Percent cell count reference ranges are not reported, since discordance with absolute values may lead to misinterpretation of CBC data. Current Interpretive Data was last revised on 2018. Testing performed by: [address] [address] Basophil pct 0.8 % [facility] Comment: Interpretive Data Percent cell count reference ranges are not reported, since discordance with absolute values may lead to misinterpretation of CBC data. Current Interpretive Data was last revised on 2018. Testing performed by: [address] [address] Blood 06/14/2025 10:0 5 AM CDT 06/14/2025 10:06 AM CDT Nena Cano STOVE T[employer]ER LAB BLOOD ORDERABLES Final Result Performing Organization Address [facility] de Phone Number DAYANA[address] [address] * Iron profile w/ IBC (06/14/2025 10:05 AM CDT) Pathologist [facility] Iron 105 50 - 150 mcg/dL Comment:Testing performed by : [address] [address] TIBC 258 250 - 400 mcg/dL [facility] SERNA Comment:Testing performed by : [address] [address] Transferrin saturation 41 20 - 50 % [facility] SERNA Comment:Testing performed by : [address] [address] Blood 06/14/2025 10:0 5 AM CDT 06/14/2025 11:48 AM CDT Nena Cano STOVE T[employer]ER LAB BLOOD ORDERABLES Final Result Performing Organization Address [facility] de Phone Number [place] [id number] [facility] [place] [address] * (ABNORMAL) CBC with auto differential (06/14/2025 10:05 AM CDT) [facility] WBC 4.00 3.80 - 9.90 K/cumm Comment:Testing performed by : [address] [address] Hgb 8.4(L) 13.0 - 17.5 g/dL [facility] SERNA Comment:Testing performed by : [address] [address] Hct 27.3(L) 38.9 - 50.3 % [facility] SERNA Comment:Testing performed by : [address] [address] Plt 228 150 - 400 K/cumm [facility] SERNA Comment:Testing performed by : [address] [address] MPV 8.4(L) 9.1 - 12.3 fL [facility] SERNA Comment:Testing performed by : [address] [address] RBC 2.85(L) 4.30 - 5.80 M/cumm [facility] SERNA Comment:Testing performed by : [address] [address] MCV 95.8 81.3 - 96.4 fL [facility] Comment:Testing performed by : [address] [address] MCH 29.5 27.1 - 33.3 pg [facility] Comment:Testing performed by : [address] [address] MCHC 30.8(L) 32.3 - 35.7 g/dL [facility] SERNA Comment:Testing performed by : [address] [address] RDW CV 14.7 11.1 - 14.9 % [facility] Comment:Testing performed by : [address] [address] RDW SD 51.8(H) 35.7 - 48.1 fL [facility] Comment:Testing performed by : [address] [address] NRBC abs 0.00 0.00 - 0.01 K/cumm [facility] Comment:Testing performed by : [address] [address] ANC Prelim 2.53 1.50 - 6.50 K/cumm [facility] Comment: Interpretive Data The rapid ANC is a preliminary automated count and may vary from the final ANC (Neut Abs) reported in the WBC differential that follows. Current interpretive data was last revised 2025. Testing performed by: [address] [address] Blood 06/14/2025 10:0 5 AM CDT 06/14/2025 10:06 AM CDT Nena Cano NP LAB BLOOD ORDERABLES Final Result CERNER [address] [place] [address] * (ABNORMAL) Reticulocyte Count (06/14/2025 10:05 AM CDT) [facility] Retics, absolute 95(H) 20 - 87 K/cumm Comment:Testing performed by : [address] [address] Retics 3.3(H) 0.4 - 2.9 % IS[facility] Comment:Testing performed by : [address] [address] Reticulocyte Hgb 25.3(L) 30.5 - 38.0 pg [facility] Comment:Testing performed by : [address] [address] Blood 06/14/2025 10:0 5 AM CDT 06/14/2025 10:06 AM CDT Nena Cano STOVE T[employer]ER LAB BLOOD ORDERABLES Final Result Performing Organization Address City/[facility]/ZIP Co de Phone Number [address] [address] * Ferritin (06/14/2025 10:05 AM CDT) [facility] Ferritin 44 30 - 400 ng/mL Comment:Testing performed by : [address] [address] Blood 06/14/2025 10:0 5 AM CDT 06/14/2025 11:48 AM CDT Nena Cano STOVE TENDER LAB BLOOD ORDERABLES Final Result [address] [address] * (ABNORMAL) Comprehensive metabolic panel (06/14/2025 10:05 AM CDT) [facility] Sodium 139 135 - 145 mmol/L Comment:Testing performed by : [address] [address] Potassium, pl 4.3 3.3 - 4.9 mmol/L [facility] Comment:Testing performed by : [address] [address] Chloride 107 97 - 110 mmol/L [facility] Comment:Testing performed by : [address], [place]., [address] CO2 22 22 - 32 mmol/L [facility] Comment:Testing performed by : [address] [address] Anion gap 10 2 - 15 mmol/L [facility] Comment:Testing performed by : [address] [address] BUN 25 6 - 25 mg/dL [facility] Comment:Testing performed by : [address], [place]., [address] Creatinine 1.60(H) 0.80 - 1.30 mg/dL [facility] Comment:Testing performed by : [address] [address] Glucose 88 70 - 199 mg/dL [facility] Comment: Interpretive Data Fasting glucose >/= 126 [...] last revised 2022. Testing performed by: [address] [address] Calcium 8.9 8.5 - 10.3 mg/dL [facility] Comment:Testing performed by : [address] [address] Bilirubin, total 0.2 0.1 - 1.2 mg/dL [facility] Comment:Testing performed by : [address] [address] Protein, pl 6.6 6.5 - 8.5 g/dL [facility] Comment:Testing performed by : [address], [address] Albumin 3.8 3.5 - 5.0 g/dL [facility] Comment:Testing performed by : [address], [address] Alk phos 65 40 - 130 Units/L [facility] Comment:Testing performed by : [address], [address] ALT 10 7 - 55 Units/L [facility] Comment:Testing performed by : [address], [address] AST 16 10 - 50 Units/L [facility] Comment:Testing performed by : [address], [address] Blood 06/14/2025 10:0 5 AM CDT 06/14/2025 10:06 AM CDT Nena Cano STOVE TENDER LAB BLOOD ORDERABLES Final Result [place] [id number] [facility] Department of Laboratories [place], [place] [id number] * (ABNORMAL) Differential, auto (06/07/2025 9:24 AM CDT) Pathologist [facility] Neutrophil abs 2.55 1.50 - 6.50 K/cumm Comment:Testing performed by : [address], [address] Imm gran abs 0.03 0.00 - 0.10 K/cumm [facility] Comment:Testing performed by : [address] [address] Lymphocyte abs 0.72(L) 0.80 - 3.30 K/cumm [facility] Comment:Testing performed by : [address] [address] Monocyte abs 0.56 0.20 - 0.80 K/cumm [facility] Comment:Testing performed by : [address], [address] Eosinophil abs 0.23 0.00 - 0.50 K/cumm [facility] Comment:Testing performed by : [address] [address] Basophil abs 0.04 0.00 - 0.10 K/cumm [facility] Comment:Testing performed by : [address] [address] Neutrophil pct 61.7 % [facility] Comment: Interpretive Data Percent cell count reference ranges are not reported, since discordance with absolute values may lead to misinterpretation of CBC data. Current Interpretive Data was last revised on 2018. Testing performed by: [address] [address] Imm gran pct 0.7 % [facility] Comment: Interpretive Data Percent cell count reference ranges are not reported, since discordance with absolute values may lead to misinterpretation of CBC data. Current Interpretive Data was last revised on 2018. Testing performed by: [address] [address] Lymphocyte pct 17.4 % [facility] Comment: Interpretive Data Percent cell count reference ranges are not reported, since discordance with absolute values may lead to misinterpretation of CBC data. Current Interpretive Data was last revised on 2018. Testing performed by: [address] [address] Monocyte pct 13.6 % [facility] Comment: Interpretive Data Percent cell count reference ranges are not reported, since discordance with absolute values may lead to misinterpretation of CBC data. Current Interpretive Data was last revised on 2018. Testing performed by: [address] [address] Eosinophil pct 5.6 % [facility] Comment: Interpretive Data Percent cell count reference ranges are not reported, since discordance with absolute values may lead to misinterpretation of CBC data. Current Interpretive Data was last revised on 2018. Testing performed by: [address] [address] Basophil pct 1.0 % [facility] Comment: Interpretive Data Percent cell count reference ranges are not reported, since discordance with absolute values may lead to misinterpretation of CBC data. Current Interpretive Data was last revised on 2018. Testing performed by: [address] [address] Blood 06/07/2025 9:24 AM CDT 06/07/2025 9:32 AM CDT Nena Cano STOVE TENDER LAB BLOOD ORDERABLES Final Result Performing Organization Address [facility] de Phone Number [facility] [address] [facility] [place] [address] * (ABNORMAL) Iron profile w/ IBC (06/07/2025 9:24 AM CDT) Pathologist [facility] Iron 36(L) 50 - 150 mcg/dL Comment:Testing performed by : [address] [address] TIBC 260 250 - 400 mcg/dL [facility] Comment:Testing performed by : [address] [address] Transferrin saturation 14(L) 20 - 50 % [facility] Comment:Testing performed by : [address] [address] Blood 06/07/2025 9:24 AM CDT 06/07/2025 11:43 AM CDT Nena Cano STOVE TENDER LAB BLOOD ORDERABLES Final Result Performing Organization Address City/[facility] de Phone Number [place] [id number] [facility] [place] [address] * (ABNORMAL) CBC with auto differential (06/07/2025 9:24 AM CDT) Pathologist [facility] WBC 4.13 3.80 - 9.90 K/cumm Comment:Testing performed by : [address] [address] Hgb 8.9(L) 13.0 - 17.5 g/dL [facility] Comment:Testing performed by : [address] [address] Hct 28.1(L) 38.9 - 50.3 % [facility] Comment:Testing performed by : [address] [address] Plt 232 150 - 400 K/cumm [facility] Comment:Testing performed by : [address] [address] MPV 8.3(L) 9.1 - 12.3 fL [facility] Comment:Testing performed by : [address] [address] RBC 2.92(L) 4.30 - 5.80 M/cumm [facility] Comment:Testing performed by : [address] [address] MCV 96.2 81.3 - 96.4 fL [facility] Comment:Testing performed by : [address] [address] MCH 30.5 27.1 - 33.3 pg [facility] Comment:Testing performed by : [address] [address] MCHC 31.7(L) 32.3 - 35.7 g/dL [facility] Comment:Testing performed by : [address] [address] RDW CV 15.0(H) 11.1 - 14.9 % [facility] Comment:Testing performed by : [address] [address] RDW SD 53.0(H) 35.7 - 48.1 fL [facility] Comment:Testing performed by : [address] [address] NRBC abs 0.00 0.00 - 0.01 K/cumm [facility] Comment:Testing performed by : [address] [address] ANC Prelim 2.55 1.50 - 6.50 K/cumm [facility] Comment: Interpretive Data The rapid ANC is a preliminary automated count and may vary from the final ANC (Neut Abs) reported in the WBC differential that follows. Current interpretive data was last revised 2025. Testing performed by: [address] [address] Blood 06/07/2025 9:24 AM CDT 06/07/2025 9:32 AM CDT Nena Cano STOVE TENDER LAB BLOOD ORDERABLES Final Result Performing Organization Address [facility] de Phone Number ISAAC [address] [address] * (ABNORMAL) Reticulocyte Count (06/07/2025 9:24 AM CDT) Retics, absolute 89(H) 20 - 87 K/cumm Comment:Testing performed by : [address] [address] Retics 3.1(H) 0.4 - 2.9 % [facility] Comment:Testing performed by : [address] [address] Reticulocyte Hgb 26.6(L) 30.5 - 38.0 pg [facility] Comment:Testing performed by : [address] [address] Blood 06/07/2025 9:24 AM CDT 06/07/2025 9:32 AM CDT Nena Cano NP LAB BLOOD ORDERABLES Final Result Performing Organization Address [facility] de Phone Number [address] [address] * Ferritin (06/07/2025 9:24 AM CDT) Ferritin 41 30 - 400 ng/mL Comment:Testing performed by : [address] [address] Blood 06/07/2025 9:24 AM CDT 06/07/2025 11:43 AM CDT Nena Caon STOVE TENDER LAB BLOOD ORDERABLES Final Result [facility] [address] [facility] Department [place] [address] * CT Chest Abdomen Pelvis W Contrast (12/13/2024 7:09 AM 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) Anatomical Region Laterality Modality Body N/A Computed Tomogra phy 12/13/2024 7:26 AM 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 Impressions 12/13/2024 7:26 AM 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 1. Nondistended esophagus. No discrete esophageal lesion identified to correspond to known malignancy. 2. No evidence of metastatic disease in the chest, abdomen, and pelvis. Electronically signed by: Courtney Johnson M.D. Narrative 12/13/2024 7:26 AM 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 EXAMINATION: Computed tomography of the chest, abdomen [...] Res ult * Colonoscopy (11/17/2024 9:34 AM 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) Anatomical Region Laterality Modality Other Narrative Procedure Note Lucio Rosas MD - 11/17/2024 9:34 AM [facility] GI ENDOSCOPY Patient Name: Marshall Olson Procedure Date: 11/17/2024 9:34 AM Date of : 1950 Admit Type: Outpatient Age: 74 Gender: Male Attending MD: Lucio Rosas M.D. Room: [facility] ENDOSCOPY ROOM 03 Note Status: [...] The scope was passed under direct vision.The [id number]-[id number] colonoscope was introduced through theanus and advanced to the cecum, identified byappendiceal orifice and ileocecal valve. The scope was passed under direct vision. The [id number] colonoscope was introduced through the and advanced [...] Most Recently Relevant to Health Maintenance Insurance [facility] MEDICARE ADVANTAGE MEDICARE [employer] MEDICARE ADVANTAGE Advance Directives For more information, please contact: [phone] * Full Code (Latest Code Status on [...] 10:34 AM 01/12/2025 5:08 AM Care Teams Cell Tender Helper Relationship Specialty Start Date End Date Jas Alcala MD [address] [place] [address] PCP - General Internal Medicine 01/04/25 Lucio Rosas MD [address] [address] Consulting Physician Gastroenterology 11/28/24 Hero Pinedo MD [address] [place] [address] Radiation Oncologist Radiation Oncology 12/28/24 Lon Tomas MD [address] [place] [address] Consulting Physician Urology 01/04/25 Jaycee Teresa MD [address] [place] [address] Consulting Physician Cardiology 01/09/25 [place] [address] [place] [address] Medical Oncologist/Hematologis t Hematology and Oncology 06/03/25 [place] [address] [address] Consulting Physician Cardiology 08/30/25
--- OUTSIDE RECORDS SUMMARY | 2025-08-31 10:21 | XMS_ITS | Encounter Summary ---
Author Organization [facility] Healthcare Address [address] [place] [address] Care Team Providers Care Electronic Imager Name Role Phone Jas Alcala MD Primary Care Provider [phone] Lucio Rosas MD Unavailable Bianca Hunter MD Unavailable + [phone] Hero Pinedo MD Unavailable [phone] Jas Alcala MD Primary Care Provider [phone] Lon Tomas MD Unavailable [phone] Jaycee Teresa MD Unavailable [phone] Francisco Jones DO Unavailable [phone] Jaycee Teresa MD Unavailable [phone] Encounter Details Date Type Department Care Team (Late st Contact Info) Description 05/07/2022 Orders Only [facility] [address] [place] [address] Bryon Potter MD [address] [place] [address] Social History Tobacco Use Types Packs/Day Years Used Date Smoking Tobacco: Every Day Cigarettes 1 25 Smokeless Tobacco: Never Alcohol Use Standard Drinks/Week Comments Yes 6 (1 standard drink = 0.6 oz pur e alcohol) AUDIT-C Answer Date Recorded Frequency of Alcohol Consumption 2-3 times a vanessa roberson 01/16/2019 Average Number of Drinks 1 or 2 019 Frequency of Binge Drinking Never 12/31 Sex and Gender Information Value Date Recorded Sex Assigned at Not on file 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 Gender Identity Not on file Sexual Orientation Not on file 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 Not on file Not on file 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 Not on file Not on file Not on file documented as of this encounter Plan of Treatment Not on file documented as of this encounter Visit Diagnoses Not on filedocumented in this encounter Care Teams Electronic Imager Relationship Specialty Start Date End Date Jas Alcala MD PCP - General Internal Medicine 02/26/18 01/03/25 Jas Alcala MD [address] [place] [address] PCP - General Internal Medicine 01/04/25 Lucio Rosas MD [address] [facility] [address] [place] [address] Consulting Physician Gastroenterology 11/28/24 Bianca Hunter MD [address] [facility] [address] [place] [address] Medical Oncologist/Hematologis t Medical Oncology 12/07/24 06/02/25 Hero Pinedo MD [address] [place] [id number] Radiation Oncologist Radiation Oncology 12/28/24 Lon Tomas MD [address] [place] [address] Consulting Physician Urology 01/04/25 Jaycee Teresa MD [address] [place] [address] Consulting Physician Cardiology 01/09/25 Francisco Jones DO [address] [address] Medical Oncologist/Hematologis t Hematology and Oncology 06/03/25 [place] [address] [address] Consulting Physician Cardiology 08/30/25 documented as of this encounter
--- OUTSIDE RECORDS SUMMARY | 2025-08-31 10:21 | XMS_ITS | Clinical Summary ---
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 Gender Identity Not on file Sexual Orientation Not on file Last Filed Vital Signs Vital Sign Reading Time Taken Comments Blood Pressure 142/62 12/29/2019 2:51 PM RESIDENT CARE ASSOCIATE Pulse 62 12/29/2019 2:51 PM RESIDENT CARE ASSOCIATE Temperature 36.4 C (97.6 F) 12/29/2019 2:51 PM RESIDENT CARE ASSOCIATE Respiratory Rate 18 12/29/2019 2:51 PM RESIDENT CARE ASSOCIATE Oxygen Saturation 99% 12/29/2019 2:51 PM RESIDENT CARE ASSOCIATE Inhaled Oxygen Concentration - - Weight 137 kg (302 lb) 12/29/2019 2:51 PM RESIDENT CARE ASSOCIATE Height 182.9 cm (6') 12/29/2019 2:51 PM RESIDENT CARE ASSOCIATE Body Mass Index 40.96 12/29/2019 2:51 PM RESIDENT CARE ASSOCIATE Plan of Treatment Health Maintenance Due Date [...] age to complete this topic Care Teams Webbing Inspector Relationship Specialty Start Date End Date Jas Alcala MD PCP - General Internal Medicine 11/09/19
[2025-08-31 10:26] LABS: INR 1.3; Prothrombin Time 16.5 Seconds (11.1-14.7)
[2025-08-31 10:30] LABS: Anion Gap 7 mmol/L (4-12); Carbon Dioxide 24 mmol/L (22-30); Chloride 106 mmol/L (98-107); Potassium 4.5 mmol/L (3.4-5.0); Sodium 137 mmol/L (137-145)
[2025-08-31 10:41] LABS: Blood Urea Nitrogen 20 mg/dL (9-20); Calcium 9.4 mg/dL (8.4-10.2); Estimated Glomerular Filt Rate 44; Glucose 96 mg/dL (65-110)
== END 2025-08-31 09:35 | disposition home or self-care (01) ==
LOC: ANHLAB 09:36
PROVIDERS: PCP Internal Medicine; Visit Provider Internal Medicine
DX: Z79.01 Long term (current) use of anticoagulants (principal)
CPT/HCPCS: 36415; 80048; 85025; 85610